=== PATIENT | male | born 1955 | race African-American/Black ===

== ENCOUNTER 2016-05-28 15:33 | Inpatient (IN) | payer OTHER ==
[2016-05-28] VITALS (14 sets, daily range): BP systolic 117–163; BP diastolic 55–81; PULSE 8–106; RESP 17–20; TEMP 98–98.8; O2SAT 95–100
[~2016-05-28] VITALS: Ht 160 cm; Wt 62.0 kg
[~2016-05-28 15:33] MED LIST: ASPI81TA82 PO; ATROPINE SULFATE 1 MG/10 ML SYRINGE IV ONE; CALC667T PO; CLON.1 PO; DOCU100T9 PO; EPINEPHrine HCL (1:10,000) 1 MG/10 ML SYRINGE IV ONE; HYDR25TA35 PO; METO50TA PO; NEPRLIQ PO; NRSS SQ; SODIUM BICARBONATE 8.4% INJ 50 MEQ/50 ML SYR IV ONE
[2016-05-28] MEDS ORDERED: SODIUM CHLORIDE 0.9% FLUSH 5 ML FLUSH IVF PRN ×2 (15:45→21:00)
--- NOTE | 2016-05-28 15:51 | PD ---
HPI Chief Complaint: SOB Time Seen by Provider: 15:46 Travel History International Travel<30 days: No Contact w/Intl Traveler<30days: No History of Present Illness HPI 60-year-old male with history of CHF, DM, HEP C, ESRD (on dialysis Monday followed by Dr. Peck) presents to the ED for evaluation of 2 day history of shortness of breath. Onset after last dialysis of 05/26. Patient endorses nonproductive cough and 1 episode of posttussive emesis. Denies fever, chills, cold or flu symptoms, chest pain, abdominal pain. AV graft in LEFT arm. PFSH Past Medical History Hx Anticoagulant Therapy: Yes (aspirin 81) Asthma: No Autoimmune Disease: No Blood Disorders: No Anxiety: Yes (PTSD) Depression: No Heart Rhythm Problems: No Cancer: No Cardiovascular Problems: Yes High Cholesterol: Yes Chemotherapy: No Chest Pain: Yes Congestive Heart Failure: Yes COPD: No Cerebrovascular Accident: Yes Coronary Artery Disease: Yes Diabetes: Yes Dialysis: Yes (//MON) Diminished Hearing: No Endocrine: Yes Gastrointestinal Disorders: No GERD: No Genitourinary: Yes (ESRD) Hepatitis: Yes (HEP C) Hiatal Hernia: No Hypertension: Yes Immune Disorder: No Implanted Vascular Access Dvce: Yes Musculoskeletal: No Neurologic: Yes (CVA) Psychiatric: No Reproductive: No Respiratory: Yes (SOB) Myocardial Infarction: Yes Radiation Therapy: No Renal Failure: Yes Sleep Apnea: No Thyroid Disease: No Ulcer: No Past Surgical History AICD: No Arteriovenous Shunt: Yes (LEFT FA) Body Medical Devices: FISTULA Endocrine Surgery: Yes (FISTULA LEFT ARM) Insulin Pump: No Joint Replacement: No Pacemaker: No Other Surgery: Yes (scrotal surgery, PIN PLACEMENT S/P FINGER FX, AV SHUNT L FA ) Social History Alcohol Use: No Tobacco Use: Yes Substance Use: Yes (Cocaine) Allergies-Medications (Allergen,Severity, Reaction): Coded Allergies: Ibuprofen (Verified Allergy, Severe, 09/22/15) Sulfa (Verified Allergy, Severe, Rash, 09/22/15) *MDRO Multi-Drug Resistant Organism (Verified Adverse Reaction, Unknown, ) 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 Hydralazine (Hydralazine HCl) 25 Mg Tab 25 Mg PO TID Take with a meal Catapres (Clonidine) 0.1 Mg Tab 0.1 Mg PO TID Phoslo (Calcium Acetate (Phosphate Binder)) 667 Mg Cap 2,001 Mg PO TID Aspirin Adult Low Strength (Aspirin) 81 Mg Tabdr 81 Mg PO DAILY Review of Systems Except as stated in HPI: all other systems reviewed are Neg Physical Exam Narrative GENERAL: Well-nourished, well-developed male in mild distress. SKIN: Warm and dry. AV graft with palpable thrill in the left arm. HEAD: Normocephalic. EYES: No scleral icterus. No injection or drainage. NECK: Supple, trachea midline. No JVD or lymphadenopathy. CARDIOVASCULAR: Regular rate and rhythm without murmurs, gallops, or rubs. 2+ DP and radial pulses bilaterally. RESPIRATORY: Breath sounds equal bilaterally. ++ accessory muscle use. Hyperventilating. GASTROINTESTINAL: Abdomen soft, non-tender, nondistended. Active bowel sounds. MUSCULOSKELETAL: No cyanosis, or edema. BACK: Nontender without obvious deformity. No CVA tenderness. Data Data Last Documented VS Vital Signs Date Time Temp Pulse Resp B/P Pulse Ox O2 Delivery O2 Flow Rate FiO2 05/28/16 17:59 97 50 05/28/16 17:54 106 20 140/81 Ventilator 05/28/16 16:02 2 05/28/16 16:00 98.2 Orders Complete Blood Count With Diff (05/28/16 15:45) Comprehensive Metabolic Panel (05/28/16 15:45) B-Type Natriuretic Peptide (05/28/16 15:45) Act Partial Throm Time (Ptt) (05/28/16 15:45) Prothrombin Time / Inr (Pt) (05/28/16 15:45) Ckmb (Isoenzyme) Profile (05/28/16 15:45) Troponin I (05/28/16 15:45) Urinalysis - C+S If Indicated (05/28/16 15:45) Iv Access Insert/Monitor (05/28/16 15:45) Electrocardiogram (05/28/16 15:45) Ecg Monitoring (05/28/16 15:45) Oximetry (05/28/16 15:45) Oxygen Administration (05/28/16 15:45) Chest, Single Ap (05/28/16 15:45) Sodium Chloride 0.9% Flush (Ns Flush) (05/28/16 15:45) Blood Glucose (05/28/16 15:51) Isolation 08,20 (05/28/16 16:11) Arterial Blood Gas (Abg) (05/28/16 ) Influenzae A/B Antigen (05/28/16 16:37) Blood Culture (05/28/16 16:37) Piperacil-Tazo 4.5 Gm Premix (Zosyn 4.5 (05/28/16 16:45) Azithromycin Inj (Zithromax Inj) (05/28/16 16:45) CKMB (05/28/16 16:04) CKMB% (05/28/16 16:04) Potassium, Serum (K) (05/28/16 20:06) Ecg Monitoring (05/28/16 17:06) Calcium Gluconate Inj (Calcium Gluconate (05/28/16 17:15) Insulin Human Regular Inj (Novolin R Inj (05/28/16 17:15) Dextrose 50% In Erich (Vial) Inj (D50w (Vi (05/28/16 17:15) Albuterol Concentrated Neb (Albuterol Co (05/28/16 17:15) Sodium Polysty Sulfate Liq (Kayexalate L (05/28/16 17:15) Consult Nephrology (05/28/16 ) Lorazepam Inj (Ativan Inj) (05/28/16 17:33) Etomidate Inj (Amidate Inj) (05/28/16 17:37) Succinylcholine Inj (Quelicin Inj) (05/28/16 17:37) (Hub Use Only)Inp Phy Cons/Ref (05/28/16 ) Chest, Single Ap (05/28/16 ) Admit Order (Ed Use Only) (05/28/16 18:03) Labs Laboratory Tests Test 05/28/16 05/28/16 16:04 16:55 White Blood Count 5.7 TH/MM3 Red Blood Count 4.53 MIL/MM3 Hemoglobin 14.1 GM/DL Hematocrit 43.8 % Mean Corpuscular Volume 96.6 FL Mean Corpuscular Hemoglobin 31.1 PG Mean Corpuscular Hemoglobin 32.2 % Concent Red Cell Distribution Width 15.6 % Platelet Count 139 TH/MM3 Mean Platelet Volume 12.6 FL Neutrophils (%) (Auto) 68.7 % Lymphocytes (%) (Auto) 16.0 % Monocytes (%) (Auto) 14.3 % Eosinophils (%) (Auto) 0.1 % Basophils (%) (Auto) 0.9 % Neutrophils # (Auto) 3.9 TH/MM3 Lymphocytes # (Auto) 0.9 TH/MM3 Monocytes # (Auto) 0.8 TH/MM3 Eosinophils # (Auto) 0.0 TH/MM3 Basophils # (Auto) 0.1 TH/MM3 CBC Comment DIFF FINAL Differential Comment Prothrombin Time 12.9 SEC Prothromb Time International 1.2 RATIO Ratio Activated Partial 28.8 SEC Thromboplast Time Sodium Level 135 MEQ/L Potassium Level 6.8 MEQ/L Chloride Level 100 MEQ/L Carbon Dioxide Level 18.2 MEQ/L Anion Gap 17 MEQ/L Blood Urea Nitrogen 66 MG/DL Creatinine 8.95 MG/DL Estimat Glomerular Filtration 7 ML/MIN Rate Random Glucose 75 MG/DL Calcium Level 9.0 MG/DL Total Bilirubin 1.2 MG/DL Aspartate Amino Transf 103 U/L (AST/SGOT) Alanine Aminotransferase 47 U/L (ALT/SGPT) Alkaline Phosphatase 95 U/L Total Creatine Kinase 157 U/L Creatine Kinase MB 4.3 NG/ML Troponin I 0.21 NG/ML B-Type Natriuretic Peptide GREATER THAN 5000 PG/ML Total Protein 8.0 GM/DL Albumin 2.9 GM/DL Blood Gas Puncture Site RT RADIAL Blood Gas Patient Temperature 98.6 Blood Gas HCO3 17 mmol/L Blood Gas Base Excess -6.7 mmol/L Blood Gas Oxygen Saturation 94 % Arterial Blood pH 7.42 Arterial Blood Partial 27 mmHg Pressure CO2 Arterial Blood Partial 133 mmHG Pressure O2 Arterial Blood Oxygen Content 18.7 Vol % Arterial Blood 2.1 % Carboxyhemoglobin Arterial Blood Methemoglobin 2.0 % Blood Gas Hemoglobin 14.0 G/DL Oxygen Delivery Device NASAL CANNULA Blood Gas Liter Flow 2.5 L/M MDM Medical Decision Making Medical Screen Exam Complete: Yes Emergency Medical Condition: Yes Interpretation(s) EKG rate 79, sinus rhythm. CO interval 166. QRS 104 ms. QTC 46. Normal axis. NO peaked T waves. LVH. No ischemic changes. Reviewed by Dr. Clancy. Differential Diagnosis electrolyte abnormality versus CHF versus DKA versus pneumonia versus anemia versus other Narrative Course 60-year-old male with history of CHF, DM, HEP C, ESRD (on dialysis Monday followed by Dr. Peck) presents to the ED for evaluation of 2 day history of shortness of breath. Onset after last dialysis of 05/26. Patient endorses nonproductive cough and 1 episode of posttussive emesis. Denies fever, chills, cold or flu symptoms, chest pain, abdominal pain. Vitals reviewed. Patient is tachypneic. O2 sats 97% on 2 L nasal cannula. Chest clear to auscultation bilaterally. AV graft in LEFT arm with palpable thrill. Abdomen soft nontender. No pretibial edema. [facility] IV was established. Patient was placed on continuous monitoring. Bedside blood glucose 85. CBC: WBC 5.7. Hemoglobin 14.1. CMP: Potassium 6.8. Sodium 135. BUN 66. Creatinine 8.95. CO2 18.2. Bilirubin 1.2. AST 103. ALT 47. INR: 1.2 ABG: PH 7.42. HCO3 17. PCO2 27. Acute respiratory alkalosis with secondary metabolic acidosis Chest x-ray: Right lower lung infiltrate, compensated cardiomegaly. BNP: > 5000 Cardiac enzymes: Troponin 0.21. CK-MB 4.3. EKG: Rate 79, sinus rhythm, normal intervals, normal axis, no ischemic changes. Flu swab negative. Influenza swab and blood cultures ordered. Patient was administered IV Zosyn and azithromycin. Patient was administered Kayexalate, calcium, albuterol, dextrose and insulin. Patient is due for dialysis today. Nephrology consult placed with Dr. Peck. Plan to admit to the ICU. While being evaluated in the ED the patient became unresponsive and coded. CPR was administered. Sinus rhythm was restored. The patient was intubated and placed on a respirator. Family member at bedside reports previous history of cardiac arrest. Dr. Clancy spoke with Dr. Francisco, inspector semiconductor wafer for Dr. Peck. He will arrange dialysis. Dr. Clancy spoke with Dr. Fonseca who agrees to accept the patient to the ICU, admit to Dr. Donaldson. Please see die keeper and nephrology notes for disposition. Diagnosis Primary Impression: HCAP (healthcare-associated pneumonia) Additional Impressions: Metabolic acidosis with respiratory alkalosis ESRD on dialysis Cardiac arrest Cardiac enzymes elevated Hyperkalemia, diminished renal excretion Yudy Becerril May 28, 2016 15:51
[2016-05-28] MEDS ORDERED: METO100T PO (15:52)
[2016-05-28] MEDS ORDERED: PHOS667C5 PO (15:52)
[2016-05-28] MEDS ORDERED: ASPI1TAB91 PO (15:52)
[2016-05-28] MEDS ORDERED: CLON.1 PO (15:52)
[2016-05-28] MEDS ORDERED: HYDR25TA35 PO (15:52)
[2016-05-28] MEDS ORDERED: NOVORP2 SQ (15:52)
[2016-05-28 16:23] LABS: AUTOMATED NEUTROPHIL # 3.9 TH/MM3 (1.8-7.7); BASOPHIL # 0.1 TH/MM3 (0-0.2); BASOPHIL % 0.9 % (0.0-2.0); EOSINOPHIL % 0.1 % (0.0-4.0); HEMATOCRIT 43.8 % (39.0-51.0); LYMPHOCYTE # 0.9 TH/MM3 (1.0-4.8); MEAN CELL VOLUME 96.6 FL (80.0-100.0); MEAN CORPUSCULAR HEMOGLOBIN 31.1 PG (27.0-34.0); MEAN CORPUSCULAR HGB CONC 32.2 % (32.0-36.0); MONO % 14.3 % (0.0-8.0); NEUT % 68.7 % (16.0-70.0); PLATELET COUNT 139 TH/MM3 (150-450); RED BLOOD COUNT 4.53 MIL/MM3 (4.50-5.90); RED CELL DISTRIBUTION WIDTH 15.6 % (11.6-17.2); WHITE BLOOD COUNT 5.7 TH/MM3 (4.0-11.0)
--- NOTE | 2016-05-28 16:23 | RADRPT ---
EXAM DATE/TIME: 05/28/2016 15:58 [facility] COMPARISON: CHEST SINGLE AP, September 22, 2015, 23:21. INDICATIONS : Shortness of breath for the past few days. MEDICAL HISTORY : Renal failure, chronic. Stroke. Myocardial infarction. Cardiomegaly SURGICAL HISTORY : Shunt, Left arm. ENCOUNTER: Initial ACUITY: 3 days PAIN SCORE: 0/10 LOCATION: Bilateral chest FINDINGS: Findings are similar to remote study with left ventricular cardiomegaly and mild elevation right ricky diaphragm with patchy airspace disease in the right base not silhouetting the heart border consistent with lower lobe process. CONCLUSION: Cardiomegaly which appears compensated. Persistent elevation right hemidiaphragm. Opacity in the righ t lung base consistent with lower lobe infiltrate Darin Ye MD on May 28, 2016 at 16:21 Board Certified Radiologist. This report was verified electronically.
[2016-05-28 16:24] LABS: HEMO FLAGS DIFF FINAL
[2016-05-28 16:36] LABS: APTT (PATIENT) 28.8 SEC (24.3-30.1); INTERNATIONAL NORMALIZED RATIO 1.2 RATIO; PROTHROMBIN TIME - PATIENT 12.9 SEC (9.8-11.6)
[2016-05-28] MEDS ORDERED: PIPERACIL-TAZO 4.5 GM PREMIX 100 ML IV ONE (16:45)
[2016-05-28] MEDS ORDERED: AZITHROMYCIN INJ 500 MG in SODIUM CHLOR 0.9% 250 ML INJ 250 ML IV ONE (16:45)
[2016-05-28 17:00] LABS: BLOOD GAS BASE EXCESS -6.7 mmol/L (-2-2); BLOOD GAS CARBOXYHEMOGLOBIN 2.1 % (0-4); BLOOD GAS HCO3 17 mmol/L (22-26); BLOOD GAS O2 HGB SATURATION 94 % (90-100); BLOOD GAS OXYGEN CONTENT 18.7 Vol % (12.0-20.0); BLOOD GAS PCO2 27 mmHg (38-42); BLOOD GAS PO2 133 mmHG (61-120); TEMP CORR TO 98.6
[2016-05-28 17:01] LABS: CRITICAL VALUE NO; DRAW SITE RT RADIAL; LITER FLOW 2.5 L/M; NUMBER OF ARTERIAL PUNCTURES 2; OXYGEN DEVICE NASAL CANNULA; STAT YES; ULNAR PULSE PRESENT
[2016-05-28 17:05] LABS: ALKALINE PHOSPHATASE 95 U/L (45-117); ALT (GPT) 47 U/L (12-78); ANION GAP 17 MEQ/L (5-15); AST (GOT) 103 U/L (15-37); BICARBONATE 18.2 MEQ/L (21.0-32.0); BLOOD UREA NITROGEN 66 MG/DL (7-18); CHLORIDE 100 MEQ/L (98-107); CREATINE KINASE 157 U/L (39-308); GLOMERULAR FILTRATION RATE 7 ML/MIN (>89); SODIUM (NA) 135 MEQ/L (136-145); TOTAL BILIRUBIN ADULT 1.2 MG/DL (0.2-1.0)
[2016-05-28 17:06] LABS: POTASSIUM 6.8 MEQ/L (3.5-5.1)
--- NOTE | 2016-05-28 17:10 | PD ---
Physical Exam Narrative I, Dr. Clancy, have reviewed the advance practice practitioner's documentation and am in agreement, met with the patient face to face, made the diagnosis, and the medical decision making was done by me. *My assessment and Findings: SOB secondary to PNA vs. fluid overload 60yo M with ESRD on HD T//Sat here with worsening sob today. Pt last had HD on and is due for HD today. +Chest pain with cough. Denies any fever , n/v, abdominal pain, weakness or numbness. CXR showed cardiomegaly and right lower lobe infiltrate. Blood cultures drawn and pt given antibiotics. Labs reviewed, no leukocytosis. K: 6.8. Pt ordered albuterol neb, kayexulate, insulin, dextrose, calcium gluconate for hyperkalemia. At 15:35, pt started to have bradycardia down to the 50s then 30s and became unresponsive. PEA arrest likely secondary to hyperkalemia. CPR was started and I was informed by the nurse that the only medication he received prior for hyperkalemia was albuterol. Pt received the calcium gluconate, insulin, dextrose and epinephrine. Pt was emergently intubated without any medications and ROSC obtained after 8 minutes. Pt was also given the kayexylate via OG tube after. Pt given ativan 2mg IV since he was waking up and we were waiting for propofol drip. Pt then placed on mechanical ventilation and propofol drip, BP 122/57 and HR 94. I discussed with Dr. Flores, transportation consultant covering Dr. Peck and he states he will call hemodialysis center now and arranged for emergently HD in the ED or ICU if he gets a room there soon. Discussed with ICU attending Dr. Fonseca who states that Dr. Donaldson will see the patient. Discussed with pt's finance who was at bedside and said this happen once before a few years ago. Answered all her questions. Hemodialysis was started in the ED and pt was evaluated by Dr. Flores in the ED. Data Data Last Documented VS Vital Signs Date Time Temp Pulse Resp B/P Pulse Ox O2 Delivery O2 Flow Rate FiO2 05/28/16 17:59 97 50 05/28/16 17:54 106 20 140/81 Ventilator 05/28/16 16:02 2 05/28/16 16:00 98.2 Orders Complete Blood Count With Diff (05/28/16 15:45) Comprehensive Metabolic Panel (05/28/16 15:45) B-Type Natriuretic Peptide (05/28/16 15:45) Act Partial Throm Time (Ptt) (05/28/16 15:45) Prothrombin Time / Inr (Pt) (05/28/16 15:45) Ckmb (Isoenzyme) Profile (05/28/16 15:45) Troponin I (05/28/16 15:45) Urinalysis - C+S If Indicated (05/28/16 15:45) Iv Access Insert/Monitor (05/28/16 15:45) Electrocardiogram (05/28/16 15:45) Ecg Monitoring (05/28/16 15:45) Oximetry (05/28/16 15:45) Oxygen Administration (05/28/16 15:45) Chest, Single Ap (05/28/16 15:45) Sodium Chloride 0.9% Flush (Ns Flush) (05/28/16 15:45) Blood Glucose (05/28/16 15:51) Isolation 08,20 (05/28/16 16:11) Arterial Blood Gas (Abg) (05/28/16 ) Influenzae A/B Antigen (05/28/16 16:37) Blood Culture (05/28/16 16:37) Piperacil-Tazo 4.5 Gm Premix (Zosyn 4.5 (05/28/16 16:45) Azithromycin Inj (Zithromax Inj) (05/28/16 16:45) CKMB (05/28/16 16:04) CKMB% (05/28/16 16:04) Ecg Monitoring (05/28/16 17:06) Calcium Gluconate Inj (Calcium Gluconate (05/28/16 17:15) Insulin Human Regular Inj (Novolin R Inj (05/28/16 17:15) Dextrose 50% In Erich (Vial) Inj (D50w (Vi (05/28/16 17:15) Albuterol Concentrated Neb (Albuterol Co (05/28/16 17:15) Sodium Polysty Sulfate Liq (Kayexalate L (05/28/16 17:15) Consult Nephrology (05/28/16 ) Lorazepam Inj (Ativan Inj) (05/28/16 17:33) Etomidate Inj (Amidate Inj) (05/28/16 17:37) Succinylcholine Inj (Quelicin Inj) (05/28/16 17:37) (Hub Use Only)Inp Phy Cons/Ref (05/28/16 ) Chest, Single Ap (05/28/16 ) Admit Order (Ed Use Only) (05/28/16 18:03) Labs Laboratory Tests Test 05/28/16 05/28/16 16:04 16:55 White Blood Count 5.7 TH/MM3 Red Blood Count 4.53 MIL/MM3 Hemoglobin 14.1 GM/DL Hematocrit 43.8 % Mean Corpuscular Volume 96.6 FL Mean Corpuscular Hemoglobin 31.1 PG Mean Corpuscular Hemoglobin 32.2 % Concent Red Cell Distribution Width 15.6 % Platelet Count 139 TH/MM3 Mean Platelet Volume 12.6 FL Neutrophils (%) (Auto) 68.7 % Lymphocytes (%) (Auto) 16.0 % Monocytes (%) (Auto) 14.3 % Eosinophils (%) (Auto) 0.1 % Basophils (%) (Auto) 0.9 % Neutrophils # (Auto) 3.9 TH/MM3 Lymphocytes # (Auto) 0.9 TH/MM3 Monocytes # (Auto) 0.8 TH/MM3 Eosinophils # (Auto) 0.0 TH/MM3 Basophils # (Auto) 0.1 TH/MM3 CBC Comment DIFF FINAL Differential Comment Prothrombin Time 12.9 SEC Prothromb Time International 1.2 RATIO Ratio Activated Partial 28.8 SEC Thromboplast Time Sodium Level 135 MEQ/L Potassium Level 6.8 MEQ/L Chloride Level 100 MEQ/L Carbon Dioxide Level 18.2 MEQ/L Anion Gap 17 MEQ/L Blood Urea Nitrogen 66 MG/DL Creatinine 8.95 MG/DL Estimat Glomerular Filtration 7 ML/MIN Rate Random Glucose 75 MG/DL Calcium Level 9.0 MG/DL Total Bilirubin 1.2 MG/DL Aspartate Amino Transf 103 U/L (AST/SGOT) Alanine Aminotransferase 47 U/L (ALT/SGPT) Alkaline Phosphatase 95 U/L Total Creatine Kinase 157 U/L Creatine Kinase MB 4.3 NG/ML Troponin I 0.21 NG/ML B-Type Natriuretic Peptide GREATER THAN 5000 PG/ML Total Protein 8.0 GM/DL Albumin 2.9 GM/DL Blood Gas Puncture Site RT RADIAL Blood Gas Patient Temperature 98.6 Blood Gas HCO3 17 mmol/L Blood Gas Base Excess -6.7 mmol/L Blood Gas Oxygen Saturation 94 % Arterial Blood pH 7.42 Arterial Blood Partial 27 mmHg Pressure CO2 Arterial Blood Partial 133 mmHG Pressure O2 Arterial Blood Oxygen Content 18.7 Vol % Arterial Blood 2.1 % Carboxyhemoglobin Arterial Blood Methemoglobin 2.0 % Blood Gas Hemoglobin 14.0 G/DL Oxygen Delivery Device NASAL CANNULA Blood Gas Liter Flow 2.5 L/M MDM Supervised Visit with RAMBO: Yes Interpretation(s) EKG: NSR 79bpm. Normal axis. TWI I, II, III, V5, V6. LVH. Critical Care Narrative Aggregate critical care time was 60 minutes. Time to perform other separately billable procedures was not included in the critical care time. My time did not include minutes spent treating any other patients simultaneously or on activities that did not directly contribute to the patient's treatment. The services I provided to this patient were to treat and/or prevent clinically significant deterioration that could result in: cardiovascular collapse or . I provided critical care services requiring my management, as noted below: Chart data review, documentation time, medication orders and management, vital sign assessments/reviewing monitor data, ordering and reviewing lab tests, ordering and interpreting/reviewing x-rays and diagnostic studies, care of the patient and discussion of the patient with the admitting physicians. Procedures Procedure Narrative The patient was put in optimal position for the procedure. The patient was intubated with a 8.0 cuffed endotracheal tube. No medication was used since pt was in arrest. Tube placement was confirmed by visualization of the tube and balloon passing through the cords, capnometry and subsequent chest x-ray. Breath sounds were equal and well aerated bilaterally postintubation. No breath sounds over stomach. Patient tolerated procedure well. Diagnosis Primary Impression: ESRD (end stage renal disease) Additional Impression: Cardiac arrest Admitting Information Admitting Physician Requests: Admit Amanda Clancy DO May 28, 2016 17:10
[2016-05-28] MEDS ORDERED: RESP: ALBUTEROL CONC 2.5 MG/0.5 ML NEB INH ONE (17:15)
[2016-05-28] MEDS ORDERED: SODIUM POLYSTYRENE SULFONATE SUSP 15 GM/60 ML CUP PO ONE (17:15)
[2016-05-28] MEDS ORDERED: DEXTROSE 50% IN WATER 50 ML VIAL(D50) IV PUSH ONE (17:15)
[2016-05-28] MEDS ORDERED: CALCIUM GLUCONATE 10% 1 GM/10 ML VIAL SLOW IVP ONE (17:15)
[2016-05-28] MEDS ORDERED: INSULIN HUMAN REGULAR 1,000 UNITS/10 ML VIAL IV PUSH ONE (17:15)
[2016-05-28] MEDS ORDERED: LORazepam 2 MG/ML VIAL ONE (17:33)
[2016-05-28] MEDS: ETOMIDATE 20 MG/10 ML VIAL ONE (17:37)
[2016-05-28] MEDS: SUCCINYLCHOLINE CHLORIDE 200 MG/10 ML VIAL ONE (17:37)
[2016-05-28 17:45] LABS: CKMB 4.3 NG/ML (0.5-3.6)
--- NOTE | 2016-05-28 18:23 | RADRPT ---
EXAM DATE/TIME: 05/28/2016 18:00 [facility] COMPARISON: CHEST SINGLE AP, May 28, 2016, 15:58. INDICATIONS : Post Procedure Intubation. MEDICAL HISTORY : Renal failure, chronic. Stroke. Myocardial infarction. Cardiomegaly. SURGICAL HISTORY : Shunt, Left arm. ENCOUNTER: Subsequent ACUITY: 1 day PAIN SCORE: Non-responsive. LOCATION: Bilateral chest FINDINGS: There is an endotracheal tube to remote acquired and nasogastric tube passing through the midline ter minating in the stomach. Small catheter indeterminate overlies the right hemithorax. Left ventricular cardiomegaly again appreciated. Density in the right lung base represents at least in part effusion. CONCLUSION: ET tube placed terminating above the josiane a nasogastric tube into the stomach. Otherwise stable katherine st with opacity in the right lung base representing at least in part effusion Darin Ye MD on May 28, 2016 at 18:20 Board Certified Radiologist. This report was verified electronically.
[2016-05-28] MEDS ORDERED: LORazepam 2 MG/ML VIAL IV PUSH ONE (18:45)
[2016-05-28 19:19] LABS: BLOOD GAS BASE EXCESS -9.1 mmol/L (-2-2); BLOOD GAS CARBOXYHEMOGLOBIN 1.8 % (0-4); BLOOD GAS HCO3 16 mmol/L (22-26); BLOOD GAS METHEMOGLOBIN 1.9 % (0-2); BLOOD GAS O2 HGB SATURATION 95 % (90-100); BLOOD GAS OXYGEN CONTENT 17.6 Vol % (12.0-20.0); BLOOD GAS PCO2 31 mmHg (38-42); BLOOD GAS PO2 215 mmHG (61-120); BLOOD GAS TOTAL HGB 12.8 G/DL (12.0-16.0); TEMP CORR TO 98.6
[2016-05-28 19:20] LABS: CRITICAL VALUE YES; OXYGEN DEVICE VENTILATOR
[2016-05-28 19:21] LABS: DRAW SITE RT FEMORAL; FIO2 50 %; NUMBER OF ARTERIAL PUNCTURES 2; STAT YES; VENT SETTINGS AC/14/550/PEEP5
[2016-05-28] MEDS: PROPOFOL 1000 MG/100 ML INJ 100 ML IV SCH (19:50)
--- NOTE | 2016-05-28 20:15 | HHI.HP ---
HPI Service Critical Care Medicine Primary Care Physician [facility] Admission Diagnosis hyperkalemia, cardiac arrest, ESRD, HCAP Diagnosis: Travel History International Travel<30 Days: No Contact w/Intl Traveler <30 Da: No Traveled to Known Affected Are: No History of Present Illness Unable to obtain from patient currently due to his clinical condition, intubation. 60 yo AAM with PMH of HTN, stroke without residual deficit, DM, nonischemic cardiomyopathy (EF 40% and stage I diastolic dysfunction) Cocaine abuse, Hepatitis C, ESRD on HD T/R/Sat who [place] [facility] [place] 2 day history of SOB. He reported symptoms started 1/ after he received hemodialysis. He reported a nonproductive cough without fevers, chills, or chest pain. His workup revealed a normal white count and CXR that demonstrated RLL consolidation. His potassium was 6.8. While preparations were being made to administer medications to address his hyperkalemia he developed bradycardia and PEA arrest. He underwent CPR and received epinephrine and 1 amp of bicarbonate. It was return of spontaneous circulation after 8 minutes. He was intubated by the emergency department physician Dr. Clancy. Dr. Francisco with nephrology was consulted and he made arrangements for urgent dialysis which is taking place currently. Target removal 3.8 L per HD RN. Postintubation CXR demonstrates R base infiltrate but also appears there is right pleural effusion. Influenza screen negative. Receive Zosyn and azithromycin in the emergency department. 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 Callejas) Cardiac cath 2012 - normal coronaries. Reported Medications Metoprolol 100 mg by mouth twice a day Clonidine 0.1 mill grams by mouth 3 times a day Hydralazine 25 g by mouth 3 times a day Novolin R Aspirin 81 mill grams by mouth daily PhosLo 2000 mill grams by mouth 3 times a day Family History Unable to obtain from patient currently due to clinical condition EMR indicates family history of diabetes mellitus Social History Unable to obtain from patient currently due to his clinical condition EMR indicates a history of smoking. No reported history of alcohol abuse in the EMR. Positive for history of cocaine abuse with multiple prior urine drug screen positive in 2013, 2015 Physical Exam Vital Signs Vital Signs Date Time Temp Pulse Resp B/P Pulse Ox O2 Delivery O2 Flow Rate FiO2 05/28/16 19:57 85 18 163/71 100 Ventilator 05/28/16 19:00 98.0 82 18 119/72 100 Ventilator 05/28/16 18:32 83 117/58 100 Ventilator 05/28/16 18:08 94 20 122/55 100 Ventilator 05/28/16 17:59 97 50 05/28/16 17:54 106 20 140/81 100 Ventilator 05/28/16 17:35 50 05/28/16 16:02 75 18 97 Nasal Cannula 2 05/28/16 16:00 98.2 75 18 125/65 95 05/28/16 15:59 97 Nasal Cannula 2 05/28/16 15:58 97 Nasal Cannula 2 Physical Exam Blood pressure 130/63 pulse 84 sinus sats 100% GENERAL: Well-nourished, well-developed male patient who is orotracheally intubated, currently getting emergent hemodialysis SKIN: Warm and dry, well perfused HEAD: Atraumatic. Normocephalic. EYES: Pupils equal and round, 2 mm and reactive to pinpoint bilaterally. Arcus senilis is present. No scleral icterus. No injection or drainage. ENT: No nasal bleeding or discharge. Mucous membranes pink and moist. NECK: Trachea midline. No JVD. CARDIOVASCULAR: Regular rate and rhythm, sinus rhythm on the monitor with rate in 80s. No murmurs rubs or gallops. RESPIRATORY: No accessory muscle use. Clear to auscultation. Breath sounds equal bilaterally. Synchronous with ventilator with tidal volume 550/rate 14/P5 /FiO2 35% GASTROINTESTINAL: Abdomen soft, non-tender, nondistended.. MUSCULOSKELETAL: Extremities without clubbing, cyanosis, or edema. No obvious deformities. NEUROLOGICAL: Localizes with bilateral upper extremity, withdraws bilateral lower extremity to noxious stimuli. No eye opening. No eye deviation. No evidence of seizure activity. No response to [facility] Laboratory Tests Test 1/7/17 1/7/17 1/7/17 16:04 16:55 18:36 White Blood Count 5.7 Red Blood Count 4.53 Hemoglobin 14.1 Hematocrit 43.8 Mean Corpuscular Volume 96.6 Mean Corpuscular Hemoglobin 31.1 Mean Corpuscular Hemoglobin 32.2 Concent Red Cell Distribution Width 15.6 Platelet Count 139 Mean Platelet Volume 12.6 Neutrophils (%) (Auto) 68.7 Lymphocytes (%) (Auto) 16.0 Monocytes (%) (Auto) 14.3 Eosinophils (%) (Auto) 0.1 Basophils (%) (Auto) 0.9 Neutrophils # (Auto) 3.9 Lymphocytes # (Auto) 0.9 Monocytes # (Auto) 0.8 Eosinophils # (Auto) 0.0 Basophils # (Auto) 0.1 CBC Comment DIFF FINAL Differential Comment Prothrombin Time 12.9 Prothromb Time International 1.2 Ratio Activated Partial 28.8 Thromboplast Time Sodium Level 135 Potassium Level 6.8 Chloride Level 100 Carbon Dioxide Level 18.2 Anion Gap 17 Blood Urea Nitrogen 66 Creatinine 8.95 Estimat Glomerular Filtration 7 Rate Random Glucose 75 Calcium Level 9.0 Total Bilirubin 1.2 Aspartate Amino Transf 103 (AST/SGOT) Alanine Aminotransferase 47 (ALT/SGPT) Alkaline Phosphatase 95 Total Creatine Kinase 157 Creatine Kinase MB 4.3 Troponin I 0.21 B-Type Natriuretic Peptide GREATER THAN 5000 Total Protein 8.0 Albumin 2.9 Blood Gas Puncture Site RT RADIAL RT FEMORAL Blood Gas Patient Temperature 98.6 98.6 Blood Gas HCO3 17 16 Blood Gas Base Excess -6.7 -9.1 Blood Gas Oxygen Saturation 94 95 Arterial Blood pH 7.42 7.33 Arterial Blood Partial 27 31 Pressure CO2 Arterial Blood Partial 133 215 Pressure O2 Arterial Blood Oxygen Content 18.7 17.6 Arterial Blood 2.1 1.8 Carboxyhemoglobin Arterial Blood Methemoglobin 2.0 1.9 Blood Gas Hemoglobin 14.0 12.8 Oxygen Delivery Device NASAL CANNULA VENTILATOR Blood Gas Liter Flow 2.5 Blood Gas Ventilator Setting AC/14/550/PEEP5 Blood Gas Inspired Oxygen 50 Date/Time Procedure Status Source Growth 05/28/16 16:51 Influenza Types A,B Antigen (FLORES) - Final Complete Nasal Washing NEGATIVE FOR FLU A AND B ANTIGEN.... 05/28/16 16:45 Aerobic Blood Culture Received Blood Line Pending 05/28/16 16:45 Anaerobic Blood Culture Received Blood Line Pending Result Diagram: 05/28/16 1604 05/28/16 1604 Assessment and Plan Assessment and Plan NEURO: Acute encephalopathy, post cardiac arrest. History of stroke without residual deficit (per friend's report) History of cocaine abuse Propofol for sedation. Fentanyl bolus prn pain. Received Ativan 6 mg IV in the ED for intubation 05/28 17:30 RASS -2. Daily sedation vacation. Tra PEA cardiac arrest due to severe hyperkalemia, re-evaluated post-HD in ICU and patient is purposeful, does not meet criteria for induced therapeutic hypothermia. RESP: Acute respiratory failure Healthcare associated pneumonia Intubated in ED 05/28/16 following cardiac arrest Duoneb q6 hours. Albuterol 2 prn. Ventilator Bundle. SBT in am. Abx as per below CV: Cardiac arrest, secondary to hyperkalemia Nonischemic cardiomyopathy secondary to HTN, cocaine abuse Chronic grade I diastolic dysfunction, systolic dysfunction with prior EF 40% Hypertension Etiology of cardiac arrest appears to be symptomatic hyperkalemia. PE seems less likely as patient not in shock and hypoxia is not out of proportion to CXR finding of RLL infiltrate and effusion. BLE u/s obtained and is negative for DVT. Hold metoprolol for now but likely can resume in am as bradycardia likely secondary to hyperkalemia Continue home meds: Hydralazine 25 tid. Clonidine 0.1 tid. ASA 81 mg daily. Mild troponin elevation in setting of ESRD. Last 2 D Echo 01/14/15 +Moderate LVH, EF 50%, Grade I diastolic dysfunction Follow-up 2-D echo cardiac cath 12/09/2012 - EF 40%, normal coronaries. GI: Hepatitis C OG tube to low intermittent wall suction. Initiate enteral feeds in 24 hours if not extubating. FEN/RENAL: ESRD Acute severe hyperkalemia Intermittent hemodialysis per nephrology (Dr. Francisco) Emergent HD 05/28 due to potassium of 6.8 with bradycardia and cardiac arrest Also received albuterol, dextrose, Insulin 5 units IV, Calcium gluconate 1 gram , kayexalate 15 gram in the ED. BMP, mag, phos in am. ID: Acute healthcare associated pneumonia Dialysis patient with right lower lobe consolidation and presenting symptom of shortness of breath. Received Zosyn and azithromycin in the emergency department 05/28. Will continue Zosyn 2.25 g IV every 8 hours dosed for pneumonia /ESRD. Azithromycin 500 mg IV daily. Send sputum culture. Microbiology: 05/28influenza A and B antigen negative blood culture 2 setspending HEME: Monitor CBC Follow bilateral lower extremity ultrasound ENDO: Diabetes mellitus Medium dose Insulin sliding scale with bedside glucose every 6 hours PROPH: Heparin subcutaneous for DVT prophylaxis. Protonix 40 mg IV daily for stress ulcer prophylaxis. ACCESS: Peripheral IV providing adequate access at this time. Left AV fistula accessed for hemodialysis Full code Discussed with Dr. Clancy. Discussed with ED RN. Discussed with HD healthcare technician time 60 minutes exclusive of separately billable procedures. Marianne Donaldson MD May 28, 2016 20:15
[2016-05-28] MEDS ORDERED: CHLORHEXIDINE GLUCONATE 2 % 1 PACK (2 CLOTHS) TOP PRN (20:45)
[2016-05-28] MEDS ORDERED: DEXTROSE 50% IN WATER 50 ML VIAL(D50) IV PUSH PRN (20:45)
[2016-05-28] MEDS ORDERED: GLUCAGON 1 MG/ML VIAL OTHER PRN (20:45)
[2016-05-28] MEDS ORDERED: ONDANSETRON HCL 4 MG/2 ML VIAL IV PRN ×2 (20:45→21:00)
[2016-05-28] MEDS ORDERED: SODIUM CHLORIDE 0.9% FLUSH 5 ML FLUSH IV FLUSH PRN (20:45)
[2016-05-28] MEDS ORDERED: RESP: IPRATROPIUM 0.5 MG/2.5 ML NEB INH PRN (20:45)
[2016-05-28] MEDS ORDERED: MISCELLANEOUS NURSING INFORMATION XX SCH (20:45)
[2016-05-28] MEDS: SODIUM CHLORIDE 0.9% FLUSH 5 ML FLUSH IV FLUSH SCH (20:52)
[2016-05-28] MEDS: DOCUSATE SODIUM 100 MG CAP PO SCH (20:52)
[2016-05-28] MEDS ORDERED: HEPARIN SODIUM - IV 10,000 UNITS/10 ML VIAL PRN (21:00)
[2016-05-28] MEDS ORDERED: ACETAMINOPHEN 325 MG TAB PO PRN (21:00)
[2016-05-28] MEDS ORDERED: diphenhydrAMINE HCL 25 MG CAP PO PRN (21:00)
[2016-05-28] MEDS ORDERED: HEPARIN SODIUM - IV 10,000 UNITS/10 ML VIAL IVF PRN (21:00)
[2016-05-28] MEDS ORDERED: GENTAMICIN SULFATE (DIALYSIS USE ONLY) 20 MG/2 ML VIAL IV PRN (21:00)
[2016-05-28] MEDS ORDERED: MANNITOL 12.5 GM/50 ML VIAL IV PRN (21:00)
[2016-05-28] MEDS ORDERED: NITROGLYCERIN 0.4 MG SL 25 TABS/BTL SL PRN (21:00)
--- NOTE | 2016-05-28 21:01 | PD.CONS ---
HPI Service nephrology Consult Requested By Reason for Consult ESRD, hyperkalemia Primary Care Physician [facility] History of Present Illness Mr. Bloom is a 60 year old who came to the ER with shortness of breath. He developed unresponsiveness and bradycardia. He was emergently intubated. He received CPR, insulin with dextrose, sodium bicarbonate, and epinephrine. Also received Kayexalate. His serum potassium was 6.8. Emergent dialysis was arranged , and I saw him in the ER during dialysis. He is on 1K, 2.5 Ca, UF 3 liters. AVF in the left arm was cannulated. Currently he is unresponsive, on the ventilator. No history could be obtained from him. I have reviewed old records. 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 Reported Medications Metoprolol Tartrate 100 Mg Tab 100 Mg PO BID Novolin R Inj (Insulin Human Regular) 1,000 Unit/10 Ml Vial 0 SQ DIRECTED Sliding Scale As Directed. Hydralazine (Hydralazine HCl) 25 Mg Tab 25 Mg PO TID Take with a meal Catapres (Clonidine) 0.1 Mg Tab 0.1 Mg PO TID Phoslo (Calcium Acetate (Phosphate Binder)) 667 Mg Cap 2,001 Mg PO TID Aspirin Adult Low Strength (Aspirin) 81 Mg Tabdr 81 Mg PO DAILY Active Ordered Medications Current Medications Medications (Trade) Dose Ordered Sig/Crispin Route Start Time Stop Time Status Last Admin IV Flush 2 ml 2 ml UNSCH PRN IVF 05/28/16 15:45 (Diprivan 1000 Mg/100ml Inj) 100 ml @ 0 mls/hr TITRATE IV 05/28/16 18:45 05/28/16 19:50 (Peridex 0.12% Liq) 15 ml BID@08,20 MT 05/29/16 08:00 (NS Flush) 2 ml UNSCH PRN IV FLUSH 05/28/16 20:45 (NS Flush) 2 ml BID IV FLUSH 05/28/16 21:00 (fentaNYL INJ) 50 mcg Q1H PRN IV PUSH 05/28/16 20:45 (Protonix Inj) 40 mg DAILY IV 05/29/16 09:00 (Zofran Inj) 4 mg Q6H PRN IV 05/28/16 20:45 (Colace) 100 mg BID PO 05/28/16 21:00 (Heparin Inj) 5,000 units Q8H SQ 05/28/16 22:00 Miscellaneous Information 1 Q361D XX 05/28/16 20:45 (Chlorhexidine 2% Cloth) 3 pack Taper DAILY@04 TOP 05/29/16 04:00 05/25/17 03:59 Chlorhexidine Gluconate 3 pack 3 pack UNSCH PRN TOP 05/28/16 20:45 (Diprivan 1000 Mg/100ml Inj) 100 ml @ 0 mls/hr TITRATE IV 05/28/16 20:45 (D50w (Vial) Inj) 25 ml UNSCH PRN IV PUSH 05/28/16 20:45 (Glucagon Inj) 1 mg UNSCH PRN OTHER 05/28/16 20:45 (NovoLOG SUPPLEMENTAL SCALE) 1 Q6HR SQ 05/29/16 00:00 Family History not available. Social History According to records, he has history of cocaine abuse and tobacco abuse. Physical Exam Vital Signs Vital Signs Date Time Temp Pulse Resp B/P Pulse Ox O2 Delivery O2 Flow Rate FiO2 05/28/16 19:57 85 18 163/71 100 Ventilator 05/28/16 19:00 98.0 82 18 119/72 100 Ventilator 05/28/16 18:32 83 117/58 100 Ventilator 05/28/16 18:08 94 20 122/55 100 Ventilator 05/28/16 17:59 97 50 05/28/16 17:54 106 20 140/81 100 Ventilator 05/28/16 17:35 50 05/28/16 16:02 75 18 97 Nasal Cannula 2 05/28/16 16:00 98.2 75 18 125/65 95 05/28/16 15:59 97 Nasal Cannula 2 05/28/16 15:58 97 Nasal Cannula 2 Physical Exam GENERAL: intubated, unresponsive. Seen during dialysis. Left arm AVF is currently cannulated. SKIN: Warm and dry. HEAD: Normocephalic. EYES: No scleral icterus. No injection or drainage. NECK: Supple, trachea midline. No JVD or lymphadenopathy. CARDIOVASCULAR: Regular rate and rhythm without murmurs, gallops, or rubs. RESPIRATORY: Breath sounds equal bilaterally. No accessory muscle use. GASTROINTESTINAL: Abdomen soft, non-tender, nondistended. MUSCULOSKELETAL: No cyanosis, or edema. BACK: Nontender without obvious deformity. No CVA tenderness. Laboratory Laboratory Tests Test 05/28/16 05/28/16 05/28/16 16:04 16:55 18:36 White Blood Count 5.7 Red Blood Count 4.53 Hemoglobin 14.1 Hematocrit 43.8 Mean Corpuscular Volume 96.6 Mean Corpuscular Hemoglobin 31.1 Mean Corpuscular Hemoglobin 32.2 Concent Red Cell Distribution Width 15.6 Platelet Count 139 Mean Platelet Volume 12.6 Neutrophils (%) (Auto) 68.7 Lymphocytes (%) (Auto) 16.0 Monocytes (%) (Auto) 14.3 Eosinophils (%) (Auto) 0.1 Basophils (%) (Auto) 0.9 Neutrophils # (Auto) 3.9 Lymphocytes # (Auto) 0.9 Monocytes # (Auto) 0.8 Eosinophils # (Auto) 0.0 Basophils # (Auto) 0.1 CBC Comment DIFF FINAL Differential Comment Prothrombin Time 12.9 Prothromb Time International 1.2 Ratio Activated Partial 28.8 Thromboplast Time Sodium Level 135 Potassium Level 6.8 Chloride Level 100 Carbon Dioxide Level 18.2 Anion Gap 17 Blood Urea Nitrogen 66 Creatinine 8.95 Estimat Glomerular Filtration 7 Rate Random Glucose 75 Calcium Level 9.0 Total Bilirubin 1.2 Aspartate Amino Transf 103 (AST/SGOT) Alanine Aminotransferase 47 (ALT/SGPT) Alkaline Phosphatase 95 Total Creatine Kinase 157 Creatine Kinase MB 4.3 Troponin I 0.21 B-Type Natriuretic Peptide GREATER THAN 5000 Total Protein 8.0 Albumin 2.9 Blood Gas Puncture Site RT RADIAL RT FEMORAL Blood Gas Patient Temperature 98.6 98.6 Blood Gas HCO3 17 16 Blood Gas Base Excess -6.7 -9.1 Blood Gas Oxygen Saturation 94 95 Arterial Blood pH 7.42 7.33 Arterial Blood Partial 27 31 Pressure CO2 Arterial Blood Partial 133 215 Pressure O2 Arterial Blood Oxygen Content 18.7 17.6 Arterial Blood 2.1 1.8 Carboxyhemoglobin Arterial Blood Methemoglobin 2.0 1.9 Blood Gas Hemoglobin 14.0 12.8 Oxygen Delivery Device NASAL CANNULA VENTILATOR Blood Gas Liter Flow 2.5 Blood Gas Ventilator Setting AC/14/550/PEEP5 Blood Gas Inspired Oxygen 50 Date/Time Procedure Status Source Growth 05/28/16 16:51 Influenza Types A,B Antigen (FLORES) - Final Complete Nasal Washing NEGATIVE FOR FLU A AND B ANTIGEN.... 05/28/16 16:45 Aerobic Blood Culture Received Blood Line Pending 05/28/16 16:45 Anaerobic Blood Culture Received Blood Line Pending Result Diagram: 05/28/16 1604 05/28/16 1604 Assessment and Plan Problem List: (1) ESRD on dialysis Plan: Emergent dialysis was arranged because of hyperkalemia and cardiac arrest. He was seen during dialysis. Dialysis on 1K. UF goal is 3 liters. Monitor. Repeat his labs tomorrow. Monitor his electrolytes and fluid volume status. (2) Hypertension Plan: He has history of cocaine abuse. Consider toxicology screen. Avoid beta blockers. Consider clonidine patch if necessary. Monitor BP after dialysis and fluid removal. (3) Cocaine abuse (4) DM (diabetes mellitus) Plan: insulin coverage to maintain blood glucose between 140 and 180 (5) Hyperkalemia Plan: Should improve with dialysis. Repeat labs tomorrow. Assessment and Plan Thanks for the consult. We will follow. Chetan Francisco MD May 28, 2016 21:01
[2016-05-28] MEDS: RESP: ALBUTEROL 2.5 MG/IPRATROPIUM 0.5 MG NEB (SCH) INH (21:21)
--- NOTE | 2016-05-28 23:16 | RADRPT ---
EXAM DATE/TIME: 05/28/2016 22:27 [facility] COMPARISON: No previous studies available for comparison. INDICATIONS : Bilateral lower extremity swelling. MEDICAL HISTORY : Myocardial infarction. Congestive heart failure. Hypercholesterolemia. CVA. CAD. HTN. Dyspnea. ESRD. Hep C. Diabetes. Anticoagulant therapy, Aspirin 81mg. Substance use. PTSD. Anxiety. MRSA. Carbapenem resistant acinetobacter baumannii. SURGICAL HISTORY : AV shunt. Dialysis. Scrotal surgery. Pin placement s/p finger fracture. ENCOUNTER: Initial ACUITY: 1 day PAIN SCORE: Non-responsive LOCATION: Bilateral legs. TECHNIQUE: Venous ultrasound of the left and right leg was performed from the inguinal ligament to the proximal calf. Real-time, color Doppler and spectral tracing, compression and augmentation techniques were us ed. FINDINGS: RIGHT LEG: There is normal compressibility of the deep venous system from the inguinal region to the proximal ca lf. No echogenic clot is seen in the lumen of the common femoral, femoral, popliteal, and posterior tibial veins. There is a normal response of the venous system to proximal and distal augmentation an d respiration. LEFT LEG: There is normal compressibility of the deep venous system from the inguinal region to the proximal ca lf. No echogenic clot is seen in the lumen of the common femoral, femoral, popliteal, and posterior tibial veins. There is a normal response of the venous system to proximal and distal augmentation an d respiration. CONCLUSION: Negative for deep venous thrombosis bilateral lower extremity. Earnest Torre MD on May 28, 2016 at 23:13 Board Certified Radiologist. This report was verified electronically.
[2016-05-28 23:54] LABS: CREATINE KINASE 215 U/L (39-308)
[2016-05-28 23:56] LABS: POTASSIUM 5.5 MEQ/L (3.5-5.1)
[2016-05-29] VITALS (21 sets, daily range): BP systolic 76–121; BP diastolic 45–60; PULSE 76–89; RESP 13–20; TEMP 97.4–98.2; O2SAT 96–100
[2016-05-29 00:17] LABS: CKMB 5.4 NG/ML (0.5-3.6)
[2016-05-29] MEDS: HEPARIN SODIUM - SQ 10,000 UNITS/ML VIAL SQ SCH ×4 (00:22→21:35)
[2016-05-29] MEDS: RESP: ALBUTEROL 2.5 MG/IPRATROPIUM 0.5 MG NEB (SCH) INH ×4 (03:25→21:19)
[2016-05-29 03:59] LABS: AUTOMATED NEUTROPHIL # 7.9 TH/MM3 (1.8-7.7); BASOPHIL # 0.1 TH/MM3 (0-0.2); BASOPHIL % 0.6 % (0.0-2.0); EOSINOPHIL # 0.1 TH/MM3 (0-0.4); EOSINOPHIL % 0.7 % (0.0-4.0); HEMATOCRIT 38.7 % (39.0-51.0); LYMPH % 5.4 % (9.0-44.0); LYMPHOCYTE # 0.5 TH/MM3 (1.0-4.8); MEAN CELL VOLUME 93.3 FL (80.0-100.0); MEAN CORPUSCULAR HEMOGLOBIN 30.6 PG (27.0-34.0); MEAN CORPUSCULAR HGB CONC 32.8 % (32.0-36.0); MONO % 12.4 % (0.0-8.0); NEUT % 80.9 % (16.0-70.0); PLATELET COUNT 94 TH/MM3 (150-450); RED BLOOD COUNT 4.15 MIL/MM3 (4.50-5.90); RED CELL DISTRIBUTION WIDTH 14.7 % (11.6-17.2); WHITE BLOOD COUNT 9.7 TH/MM3 (4.0-11.0)
[2016-05-29] MEDS: CHLORHEXIDINE GLUCONATE 2 % 1 PACK (2 CLOTHS) TOP SCH (04:00)
[2016-05-29] MEDS: PROPOFOL 1000 MG/100 ML INJ 100 ML IV SCH ×3 (04:05→14:31)
[2016-05-29] MEDS: PIPERACIL-TAZO 2.25 GM PREMIX 50 ML IV SCH ×3 (04:06→17:17)
[2016-05-29 04:21] LABS: HEMO FLAGS AUTO DIFF
[2016-05-29 04:22] LABS: ANION GAP 14 MEQ/L (5-15); BICARBONATE 28.2 MEQ/L (21.0-32.0); BLOOD UREA NITROGEN 50 MG/DL (7-18); CHLORIDE 100 MEQ/L (98-107); CREATINE KINASE 172 U/L (39-308); GLOMERULAR FILTRATION RATE 9 ML/MIN (>89); KERATOCYTES OCC (NORMAL); MAGNESIUM 2.1 MG/DL (1.5-2.5); PLATELET ESTIMATE SMEAR LOW (NORMAL); PLATELET MORPHOLOGY ENLARGED (NORMAL); POTASSIUM 4.4 MEQ/L (3.5-5.1); SCAN/DIFF AUTO DIFF CONFIRMED; SODIUM (NA) 142 MEQ/L (136-145); SPHEROCYTES OCC (NORMAL)
[2016-05-29 04:43] LABS: CKMB 5.3 NG/ML (0.5-3.6)
[2016-05-29 04:43] LABS: BLOOD GAS HCO3 28 mmol/L (22-26); BLOOD GAS O2 HGB SATURATION 96 % (90-100); BLOOD GAS PCO2 36 mmHg (38-42); BLOOD GAS PO2 104 mmHg (61-120); CRITICAL VALUE NO; OXYGEN DEVICE VENTILATOR
[2016-05-29 04:44] LABS: BLOOD GAS BASE EXCESS 4.5 mmol/L (-2-2); BLOOD GAS CARBOXYHEMOGLOBIN 1.5 % (0-4); BLOOD GAS METHEMOGLOBIN 1.2 % (0-2); BLOOD GAS OXYGEN CONTENT 16.3 Vol % (12.0-20.0); BLOOD GAS TOTAL HGB 12.1 G/DL (12.0-16.0); DRAW SITE RT RADIAL; FIO2 35 %; NUMBER OF ARTERIAL PUNCTURES 1; STAT YES; ULNAR PULSE PRESENT; VENT SETTINGS AC 12/550/5PEEP
[2016-05-29] MEDS: INSULIN ASPART SUPPLEMENTAL SCALE SQ SCH ×4 (05:55→17:18)
[2016-05-29] MEDS: PANTOPRAZOLE SODIUM 40 MG VIAL IV SCH (08:45)
[2016-05-29] MEDS: cloNIDine HCL 0.1 MG TAB PO SCH ×3 (08:45→17:18)
[2016-05-29] MEDS: hydrALAZINE HCL 25 MG TAB PO SCH ×3 (08:45→17:17)
[2016-05-29] MEDS: CHLORHEXIDINE 0.12% (ORAL KIT) 15 ML CUP MT SCH ×2 (08:45→20:13)
[2016-05-29] MEDS: SODIUM CHLORIDE 0.9% FLUSH 5 ML FLUSH IV FLUSH SCH ×2 (08:46→20:13)
[2016-05-29] MEDS: ASPIRIN EC 81 MG TABEC PO SCH (08:46)
[2016-05-29] MEDS: DOCUSATE SODIUM 100 MG CAP PO SCH ×2 (08:46→20:13)
--- NOTE | 2016-05-29 09:20 | RADRPT ---
EXAM DATE/TIME: 05/29/2016 03:03 [facility] COMPARISON: CT BRAIN W/O CONTRAST, September 22, 2015, 22:12. INDICATIONS : Post code. RADIATION DOSE: 56.35 CTDIvol (mGy) MEDICAL HISTORY : Non-responsive. SURGICAL HISTORY : Non-responsive. ENCOUNTER: Initial ACUITY: 1 day PAIN SCALE: Non-responsive LOCATION: cranial TECHNIQUE: Multiple contiguous axial images were obtained of the head. Using automated exposure control and adj ustment of the mA and/or kV according to patient size, radiation dose was kept as low as reasonably a chievable to obtain optimal diagnostic quality images. FINDINGS: CEREBRUM: The ventricles are normal for age. No evidence of midline shift, mass lesion, hemorrhage or acute in farction. No extra-axial fluid collections are seen. POSTERIOR FOSSA: The cerebellum and brainstem are intact. The 4th ventricle is midline. The cerebellopontine angle i s unremarkable. EXTRACRANIAL: The visualized portion of the orbits is intact. SKULL: The calvaria is intact. No evidence of skull fracture. CONCLUSION: Age-appropriate atrophy, stable from prior in September 2015. No acute findings. Earnest Torre MD on May 29, 2016 at 3:23 Board Certified Radiologist. This report was verified electronically.
--- NOTE | 2016-05-29 10:40 | HHI.CCPN ---
Subjective Remarks/Hospital Course 05/28: 60 yo AAM with PMH of HTN, stroke without residual deficit, DM, nonischemic cardiomyopathy (EF 40% and stage I diastolic dysfunction) Cocaine abuse, Hepatitis C, ESRD on HD T/R/Sat who presents to [facility] ED for 2 day history of SOB. He reported symptoms started 1/5 after he received hemodialysis. He reported a nonproductive cough without fevers, chills, or chest pain. His workup revealed a normal white count and CXR that demonstrated RLL consolidation. His potassium was 6.8. While preparations were being made to administer medications to address his hyperkalemia he developed bradycardia and PEA arrest. He underwent CPR and received epinephrine and 1 amp of bicarbonate. It was return of spontaneous circulation after 8 minutes. He was intubated by the emergency department physician Dr. Clancy. Dr. Francisco with nephrology was consulted and he made arrangements for urgent dialysis which is taking place currently. Target removal 3.8 L per HD RN. Postintubation CXR demonstrates R base infiltrate but also appears there is right pleural effusion. Influenza screen negative. Receive Zosyn and azithromycin in the emergency department. 05/29: Sedated, arousable, not following commands, orally intubated on mechanical ventilation. Gets agitated on lightening sedation and has a strong gag reflex. Objective Vital Signs Date Time Temp Pulse Resp B/P Pulse Ox O2 Delivery O2 Flow Rate FiO2 05/29/16 10:00 82 05/29/16 08:00 97.8 18 104/57 100 05/29/16 08:00 35 05/28/16 21:00 Ventilator 05/28/16 16:02 2 Intake and Output 05/28/16 05/28/16 05/29/16 08:00 16:00 00:00 Intake Total 45 ml Output Total 3800 ml Balance -3755 ml Result Diagram: 05/29/16 0333 05/29/16 0333 Other Results Microbiology Date/Time Procedure Status Source Growth 05/28/16 16:51 Influenza Types A,B Antigen (FLORES) - Final Complete Nasal Washing NEGATIVE FOR FLU A AND B ANTIGEN.... Laboratory Tests Test 05/28/16 05/28/16 05/29/16 16:55 18:36 04:30 Blood Gas Puncture Site RT RADIAL RT FEMORAL RT RADIAL Blood Gas Patient Temperature 98.6 98.6 Blood Gas HCO3 17 mmol/L 16 mmol/L 28 mmol/L (22-26) (22-26) (22-26) Blood Gas Base Excess -6.7 mmol/L -9.1 mmol/L 4.5 mmol/L (-2-2) (-2-2) (-2-2) Blood Gas Oxygen Saturation 94 % (90-100) 95 % (90-100) 96 % (90-100) Arterial Blood pH 7.42 7.33 7.50 (7.380-7.420) (7.380-7.420) (7.380-7.420) Arterial Blood Partial 27 mmHg (38-42) 31 mmHg (38-42) 36 mmHg (38-42) Pressure CO2 Arterial Blood Partial 133 mmHG 215 mmHG 104 mmHg Pressure O2 (61-120) (61-120) (61-120) Arterial Blood Oxygen Content 18.7 Vol % 17.6 Vol % 16.3 Vol % (12.0-20.0) (12.0-20.0) (12.0-20.0) Arterial Blood 2.1 % (0-4) 1.8 % (0-4) 1.5 % (0-4) Carboxyhemoglobin Arterial Blood Methemoglobin 2.0 % (0-2) 1.9 % (0-2) 1.2 % (0-2) Blood Gas Hemoglobin 14.0 G/DL 12.8 G/DL 12.1 G/DL (12.0-16.0) (12.0-16.0) (12.0-16.0) Oxygen Delivery Device NASAL CANNULA VENTILATOR VENTILATOR Blood Gas Liter Flow 2.5 L/M Blood Gas Ventilator Setting AC/14/550/PEEP5 AC 12/550/5PEEP Blood Gas Inspired Oxygen 50 % 35 % Imaging Last Impressions Head CT 05/29/16 0000 Signed Impressions: Service Date/Time: Sunday, May 29, 2016 03:03 - CONCLUSION: Age- appropriate atrophy, stable from prior in September 2015. No acute findings. Earnest Torre MD Chest X-Ray 05/28/16 1545 Signed Impressions: Service Date/Time: Saturday, May 28, 2016 15:58 - CONCLUSION: Cardiomegaly which appears compensated. Persistent elevation right hemidiaphragm. Opacity in the right lung base consistent with lower lobe infiltrate Darin Ye MD Lower Extremity Ultrasound 05/28/16 0000 Signed Impressions: Service Date/Time: Saturday, May 28, 2016 22:27 - CONCLUSION: Negative for deep venous thrombosis bilateral lower extremity. Earnest Torre MD Objective Remarks Blood pressure 130/63 pulse 84 sinus sats 100% GENERAL: Well-nourished, well-developed male patient who is orotracheally intubated, currently getting emergent hemodialysis SKIN: Warm and dry, well perfused HEAD: Atraumatic. Normocephalic. EYES: Pupils equal and round, 2 mm and reactive to pinpoint bilaterally. Arcus senilis is present. No scleral icterus. No injection or drainage. ENT: No nasal bleeding or discharge. Mucous membranes pink and moist. NECK: Trachea midline. No JVD. CARDIOVASCULAR: Regular rate and rhythm, sinus rhythm on the monitor with rate in 80s. No murmurs rubs or gallops. RESPIRATORY: No accessory muscle use. Clear to auscultation. Breath sounds equal bilaterally. Synchronous with ventilator with tidal volume 550/rate 14/P5 /FiO2 35% GASTROINTESTINAL: Abdomen soft, non-tender, nondistended.. MUSCULOSKELETAL: Extremities without clubbing, cyanosis, or edema. No obvious deformities. NEUROLOGICAL: Localizes with bilateral upper extremity, withdraws bilateral lower extremity to noxious stimuli. No eye opening. No eye deviation. No evidence of seizure activity. No response to Babinski A/P Assessment and Plan NEURO: Acute encephalopathy, post cardiac arrest. History of stroke without residual deficit (per friend's report) History of cocaine abuse Propofol for sedation. Fentanyl bolus prn pain. Received Ativan 6 mg IV in the ED for intubation 05/28 17:30 RASS -2. Daily sedation vacation. Tra PEA cardiac arrest due to severe hyperkalemia, re-evaluated post-HD in ICU and patient is purposeful, did not meet criteria for induced therapeutic hypothermia. RESP: Acute respiratory failure Healthcare associated pneumonia Intubated in ED 05/28/16 following cardiac arrest Duoneb q6 hours. Albuterol 2 prn. Ventilator Bundle. Daily SBT to decide extubation. Abx as per below CV: Cardiac arrest, secondary to hyperkalemia Nonischemic cardiomyopathy secondary to HTN, cocaine abuse Chronic grade I diastolic dysfunction, systolic dysfunction with prior EF 40% Hypertension Etiology of cardiac arrest appears to be symptomatic hyperkalemia. PE seems less likely as patient not in shock and hypoxia is not out of proportion to CXR finding of RLL infiltrate and effusion. BLE u/s obtained and is negative for DVT. Hold metoprolol for now but likely can resume in am as bradycardia likely secondary to hyperkalemia Continue home meds: Hydralazine 25 tid. Clonidine 0.1 tid. Continue ASA 81 mg daily. Mild troponin elevation in setting of ESRD. Last 2 D Echo 01/14/15 +Moderate LVH, EF 50%, Grade I diastolic dysfunction Follow-up 2-D echo cardiac cath 12/09/2012 - EF 40%, normal coronaries. Elevated troponin, cardiac arrest - consulted cardiology. Will add betablocker if BP permits. GI: Hepatitis C OG tube to low intermittent wall suction. Initiate enteral feeds in 24 hours if not extubating. FEN/RENAL: ESRD Acute severe hyperkalemia Intermittent hemodialysis per nephrology (Dr. Francisco) Emergent HD 05/28 due to potassium of 6.8 with bradycardia and cardiac arrest Also received albuterol, dextrose, Insulin 5 units IV, Calcium gluconate 1 gram , kayexalate 15 gram in the ED. BMP, mag, phos in am. ID: Acute healthcare associated pneumonia Dialysis patient with right lower lobe consolidation and presenting symptom of shortness of breath. Received Zosyn and azithromycin in the emergency department 05/28. continue Zosyn 2.25 g IV every 8 hours dosed for pneumonia/ ESRD. Azithromycin 500 mg IV daily. F/u sputum culture. Microbiology: 05/28influenza A and B antigen negative blood culture 2 setspending HEME: Monitor CBC Follow bilateral lower extremity ultrasound ENDO: Diabetes mellitus Medium dose Insulin sliding scale with bedside glucose every 6 hours PROPH: Heparin subcutaneous for DVT prophylaxis. Protonix 40 mg IV daily for stress ulcer prophylaxis. ACCESS: Peripheral IV providing adequate access at this time. Left AV fistula accessed for hemodialysis Full code Discussed with Dr. Francisco. Discussed with DIPLOMATIC OFFICER. Critical care time 60 minutes exclusive of separately billable procedures. Rojas Fonseca MD May 29, 2016 10:40
--- NOTE | 2016-05-29 11:00 | HHI.NPPN ---
Subjective Interval History patient remains intubated. Unresponsive. Discussed with Dr. Fonseca, also discussed with patient's fiance. Apparently had not used cocaine recently. Objective Data Data 05/28/16 05/29/16 19:00 07:00 Intake Total 227 ml Output Total 4050 ml Balance -3823 ml Intake IV Total 197 ml Other 30 ml Output Urine Total 0 ml Gastric Drainage Total 250 ml Hemodialysis 3800 ml # Voids 0 # Bowel Movements 4 Vital Signs Date Time Temp Pulse Resp B/P Pulse Ox O2 Delivery O2 Flow Rate FiO2 05/29/16 10:00 82 05/29/16 08:00 97.8 83 18 104/57 100 05/29/16 08:00 83 05/29/16 08:00 35 05/29/16 07:55 100 35 05/29/16 06:00 82 05/29/16 04:52 96 35 05/29/16 04:25 96 35 05/29/16 04:00 97.6 82 13 103/55 100 05/29/16 04:00 100 05/29/16 04:00 82 05/29/16 03:00 99 05/29/16 02:00 89 05/29/16 00:55 99 35 05/29/16 00:00 88 05/29/16 00:00 100 05/29/16 00:00 98.1 88 15 121/59 100 05/28/16 22:12 98.8 92 17 133/63 100 05/28/16 22:10 100 35 05/28/16 22:05 100 05/28/16 22:05 92 05/28/16 22:00 100 100 05/28/16 21:00 88 18 139/65 100 Ventilator 05/28/16 20:00 98 35 05/28/16 19:57 85 18 163/71 100 Ventilator 05/28/16 19:00 98.0 82 18 119/72 100 Ventilator 05/28/16 18:32 83 117/58 100 Ventilator 05/28/16 18:08 94 20 122/55 100 Ventilator 05/28/16 17:59 97 50 05/28/16 17:54 106 20 140/81 100 Ventilator 05/28/16 17:35 50 05/28/16 16:02 75 18 97 Nasal Cannula 2 05/28/16 16:00 98.2 75 18 125/65 95 05/28/16 15:59 97 Nasal Cannula 2 05/28/16 15:58 97 Nasal Cannula 2 -: 05/29/16 0333 05/29/16 0333 Microbiology 05/28/16 Aerobic Blood Culture, Received Pending 05/28/16 Anaerobic Blood Culture, Received Pending 05/28/16 Aerobic Blood Culture, Received Pending 05/28/16 Anaerobic Blood Culture, Received Pending 05/28/16 Influenza Types A,B Antigen (FLORES) - Final, Complete NEGATIVE FOR FLU A AND B ANTIGEN.... 05/29/16 Gram Stain - Final, Resulted 05/29/16 Sputum Culture, Resulted Pending Physical Exam General Appearance: Well Developed Eyes Eye Exam: Pupils Equal, Pupils Reactive Neck Neck Exam: Neck Supple Pulmonary Resp Exam: Clear Bilaterally, Breath Sounds Equal Cardiology CV Exam: Regular, Normal Sinus Rhythm Gastrointestinal/Abdomen GI Exam: Soft, Non-Distended Musculoskeletal MS Exam: Joints Intact Integumentary Skin Exam: Intact Extremeties Extremities Exam: No Edema Neurologic Neuro Exam: Unresponsive, Sedated Assessment/Plan Problem List: (1) ESRD on dialysis Plan: He was dialyzed emergently yesterday because of symptomatic hyperkalemia. Serum potassium is acceptable today. No need for dialysis today. (2) Hypertension Plan: He has history of cocaine abuse. Consider toxicology screen. Avoid beta blockers. Consider clonidine patch if necessary. Monitor BP after dialysis and fluid removal. (3) Cocaine abuse (4) DM (diabetes mellitus) Plan: insulin coverage to maintain blood glucose between 140 and 180 (5) Hyperkalemia Plan: improved. (6) NSTEMI (non-ST elevated myocardial infarction) Plan: Troponin I elevated post cardiac arrest, chest compressions. Cardiology to be consulted. Consider beta stacey if BP is stable. Patient's fiance reports that he has not used cocaine recently. Chetan Francisco MD May 29, 2016 11:00
[2016-05-29 11:05] LABS: CREATINE KINASE 176 U/L (39-308)
[2016-05-29 11:31] LABS: CKMB 4.1 NG/ML (0.5-3.6)
--- NOTE | 2016-05-29 11:59 | MB ---
cc: DELFIN SHETTY MD, ALAN S. M.D. DATE OF CONSULTATION: 05/29/2016 REASON FOR CONSULTATION: The patient is a 60-year-old -[place] male who I am seeing for possible cardiac arrest. HISTORY OF PRESENT ILLNESS: The patient has had number of hospitalizations. He has had a hypertensive cardiomyopathy in the past with catheterization 12/01 showing a 30-40% ejection fraction with normal coronary arteries. Last echocardiogram approximately 01/03 showed mild left ventricular dysfunction. The patient does have end-stage renal disease and is on hemodialysis. His history also includes hypertension, noncompliance, CVA without residual, diabetes, cocaine use, hyperlipidemia, PTSD, scrotal surgery, hepatitis C. The patient apparently had had shortness of breath for 2 days. While in the emergency room apparently had bradycardia and a pulseless electrical activity arrest but never lost his complexes. He underwent CPR and had return of circulation. His EKGs have shown sinus rhythm with left ventricular hypertrophy and repolarization abnormalities, venous ultrasound of the legs was negative for DVT. Chest x-ray showed cardiomegaly with elevated right hemidiaphragm and lower lobe infiltrate. Head CT showed no acute changes. CBC essentially normal with mild thrombocytopenia. PT/PTT normal. Initial potassium was 6.8 which is down to 4.4. Creatinine is elevated. CPK is normal have been total. His troponins have been elevated at 0.21/0.59/1.35/1.5. BNP level is greater than 5000. I am unable to get a review of systems. ALLERGIES/INTOLERANCES: Ibuprofen and sulfa. SOCIAL HISTORY: The patient is a smoker and does use cocaine. MEDICATIONS: Medication list reviewed. PHYSICAL EXAMINATION: Afebrile. Vital signs stable. He is intubated. There are no xanthelasma and oral pharyngeal mucosa normal. Chest: Clear. JVD normal. S1-S2 with a questionable S4 but no murmurs. Abdomen: Benign. Extremities: Show no cyanosis, clubbing or edema. Pulses carotids without bruits. Radials, not optimally felt due to restraints. Femorals 1 to 2+ without bruits. Pedals trace to 1+. ASSESSMENT/PLAN Mr. Bloom had a pulseless electrical activity arrest. He does have significant hyperkalemia on admission. He has a history of drug usage and hypertensive cardiomyopathy along with noncompliance. At this point in time there is no definite evidence for an acute ischemic event. His elevated troponin is somewhat nonspecific and could be a type 2 [id number] RI along with his renal dysfunction. Given his overall condition I would not pursue further cardiac workup at this point from an invasive standpoint. I would recommend the followin. Supportive care per critical care. 2. Will leave the critical care to decide on whether pulmonary embolus needs to be ruled out, although this is a lower likelihood. 3. Optimization of electrolytes through nephrology. 4. Tobacco and substance abstinence. I have nothing more to add at this point in time. We will be available this hospital stay as needed. All questions were answered to his girlfriend. MD MANAN Erwin/JACK /11:36 AM /11:48 AM
[2016-05-29] MEDS: AZITHROMYCIN INJ 500 MG in SODIUM CHLOR 0.9% 250 ML INJ 250 ML IV SCH (14:31)
--- NOTE | 2016-05-29 15:08 | EKG ---
Date Performed: 05/29/2016 Time Performed: 02:19:08 PTAGE: 60 years EKG: Sinus arrhythmia. Possible septal infarct - age undetermined Left ventricular hypertrophy S T/T wave changes anterior and laterally, possible ischemia, Clinical correlation is recommended Undul ating baseline laterally may affect reading Abnormal ECG PREVIOUS TRACING : 05/28/16 15:54 Compared to the previous tracing, T wave changes noted DOCTOR: Fabian Burden Interpretating Date/Time 05/29/2016 15:07:40
--- NOTE | 2016-05-29 17:15 | EKG ---
Date Performed: 05/28/2016 Time Performed: 15:54:43 PTAGE: 60 years EKG: Sinus rhythm WITH SINUS ARRHYTHMIA LEFT VENTRICULAR HYPERTROPHY WITH SECONDARY ST/T WAVE CHANGES ABNORMAL ECG PREVIOUS TRACING : 09/23/2015 08.48 Compared to the previous tracing, ST/T wave changes less pr ominent DOCTOR: Fabian Burden Interpretating Date/Time 05/29/2016 17:14:00
[2016-05-29] MEDS: LORazepam 2 MG/ML VIAL IV PUSH PRN (18:28)
[2016-05-30] VITALS (19 sets, daily range): BP systolic 106–130; BP diastolic 58–72; PULSE 76–92; RESP 12–23; TEMP 97.5–98.7; O2SAT 100
[2016-05-30] MEDS: PIPERACIL-TAZO 2.25 GM PREMIX 50 ML IV SCH ×3 (01:03→15:31)
[2016-05-30] MEDS: CHLORHEXIDINE GLUCONATE 2 % 1 PACK (2 CLOTHS) TOP SCH (02:00)
[2016-05-30] MEDS: PROPOFOL 1000 MG/100 ML INJ 100 ML IV SCH ×2 (02:35→15:29)
[2016-05-30] MEDS: RESP: ALBUTEROL 2.5 MG/IPRATROPIUM 0.5 MG NEB (SCH) INH ×4 (04:33→20:28)
[2016-05-30 05:55] LABS: HEMATOCRIT 36.8 % (39.0-51.0); HEMO FLAGS AUTO DIFF; MEAN CELL VOLUME 92.1 FL (80.0-100.0); MEAN CORPUSCULAR HEMOGLOBIN 30.5 PG (27.0-34.0); MEAN CORPUSCULAR HGB CONC 33.1 % (32.0-36.0); PLATELET COUNT 104 TH/MM3 (150-450); RED CELL DISTRIBUTION WIDTH 14.8 % (11.6-17.2); WHITE BLOOD COUNT 9.6 TH/MM3 (4.0-11.0)
[2016-05-30] MEDS: HEPARIN SODIUM - SQ 10,000 UNITS/ML VIAL SQ SCH ×3 (06:00→20:43)
[2016-05-30] MEDS: INSULIN ASPART SUPPLEMENTAL SCALE SQ SCH ×3 (06:00→12:00)
[2016-05-30 06:02] LABS: ALKALINE PHOSPHATASE 66 U/L (45-117); ALT (GPT) 192 U/L (12-78); ANION GAP 14 MEQ/L (5-15); AST (GOT) 364 U/L (15-37); BICARBONATE 28.8 MEQ/L (21.0-32.0); CHLORIDE 96 MEQ/L (98-107); GLOMERULAR FILTRATION RATE 7 ML/MIN (>89); POTASSIUM 5.6 MEQ/L (3.5-5.1); SODIUM (NA) 139 MEQ/L (136-145); TOTAL BILIRUBIN ADULT 1.1 MG/DL (0.2-1.0)
[2016-05-30 06:06] LABS: BLOOD UREA NITROGEN 71 MG/DL (7-18)
[2016-05-30 07:14] LABS: BASOPHILS 1 % (0-2); NEUTROPHIL # MANUAL DIFF 7.1 TH/MM3 (1.8-7.7); PLATELET ESTIMATE SMEAR LOW (NORMAL); PLATELET MORPHOLOGY ENLARGED (NORMAL); POLYS (SEG NEUTROPHILS) 74 % (16-70); SCAN/DIFF FINAL DIFF MANUAL; WBC DIFF SAMPLE 100
[2016-05-30] MEDS: CHLORHEXIDINE 0.12% (ORAL KIT) 15 ML CUP MT SCH ×2 (08:27→19:54)
[2016-05-30] MEDS: ASPIRIN EC 81 MG TABEC PO SCH (08:28)
[2016-05-30] MEDS: SODIUM CHLORIDE 0.9% FLUSH 5 ML FLUSH IV FLUSH SCH ×2 (08:28→19:53)
[2016-05-30] MEDS: DOCUSATE SODIUM 100 MG CAP PO SCH ×2 (08:28→20:43)
[2016-05-30] MEDS: PANTOPRAZOLE SODIUM 40 MG VIAL IV SCH (08:28)
[2016-05-30] MEDS: hydrALAZINE HCL 25 MG TAB PO SCH ×3 (09:00→18:00)
[2016-05-30] MEDS: cloNIDine HCL 0.1 MG TAB PO SCH ×3 (09:00→18:00)
--- NOTE | 2016-05-30 10:06 | HHI.NPPN ---
Subjective Interval History Patient remains intubated.Unresponsive. Objective Data Data 05/29/16 05/30/16 19:00 07:00 Intake Total 192 ml 553 ml Output Total 50 ml 100 ml Balance 142 ml 453 ml Intake IV Total 192 ml 553 ml Output Urine Total 0 ml 0 ml Stool Total 0 ml Gastric Drainage Total 50 ml 100 ml # Bowel Movements 0 0 Vital Signs Date Time Temp Pulse Resp B/P Pulse Ox O2 Delivery O2 Flow Rate FiO2 05/30/16 08:48 100 35 05/30/16 08:48 35 05/30/16 06:00 86 05/30/16 04:33 100 35 05/30/16 04:00 77 05/30/16 04:00 35 05/30/16 04:00 98.2 77 12 106/58 100 05/30/16 02:00 82 05/30/16 01:36 100 35 05/30/16 00:00 98.2 80 15 111/65 100 05/30/16 00:00 35 05/30/16 00:00 80 05/29/16 22:11 100 35 05/29/16 22:00 80 05/29/16 20:00 98.2 81 14 114/60 100 05/29/16 20:00 81 05/29/16 20:00 35 05/29/16 19:55 100 35 05/29/16 18:00 76 05/29/16 16:00 97.4 83 15 92/52 100 05/29/16 16:00 35 05/29/16 16:00 83 05/29/16 15:37 100 35 05/29/16 14:00 81 05/29/16 12:00 79 05/29/16 12:00 35 05/29/16 12:00 97.6 79 20 76/45 100 05/29/16 11:24 98 35 05/29/16 10:00 82 -: 05/30/16 0431 05/30/16 0431 Physical Exam General Appearance: Well Developed Eyes Eye Exam: Pupils Equal, Pupils Reactive Neck Neck Exam: Neck Supple Pulmonary Resp Exam: Clear Bilaterally, Breath Sounds Equal Cardiology CV Exam: Regular, Normal Sinus Rhythm Gastrointestinal/Abdomen GI Exam: Soft, Non-Distended Musculoskeletal MS Exam: Joints Intact Integumentary Skin Exam: Intact Extremeties Extremities Exam: No Edema Neurologic Neuro Exam: Unresponsive, Sedated Assessment/Plan Problem List: (1) ESRD on dialysis Plan: He was dialyzed on 05/28/15, because of hyperkalemia, we will dialyze him again today again for the same reason. (2) Hypertension Plan: BP is acceptable. (3) Cocaine abuse (4) DM (diabetes mellitus) Plan: insulin coverage to maintain blood glucose between 140 and 180 (5) Hyperkalemia Plan: has reappeared, will dialyze him today. (6) NSTEMI (non-ST elevated myocardial infarction) Plan: Troponin I elevated post cardiac arrest, chest compressions. Cardiology following. Consider beta stacey if BP is stable, will leave it supervisor hide house. Chetan Francisco MD May 30, 2016 10:06
[2016-05-30] MEDS: SODIUM CHLOR 0.9% 1000 ML INJ 1,000 ML IV PRN (13:08)
[2016-05-30] MEDS: GELATIN 12 MM/7 MM FOAM TOP PRN (13:08)
[2016-05-30] MEDS: AZITHROMYCIN INJ 500 MG in SODIUM CHLOR 0.9% 250 ML INJ 250 ML IV SCH (15:31)
[2016-05-30] MEDS: LORazepam 2 MG/ML VIAL IV PUSH PRN (15:32)
--- NOTE | 2016-05-30 18:38 | HHI.CCPN ---
Subjective Remarks/Hospital Course 05/28: 60 yo AAM with PMH of HTN, stroke without residual deficit, DM, nonischemic cardiomyopathy (EF 40% and stage I diastolic dysfunction) Cocaine abuse, Hepatitis C, ESRD on HD T/R/Sat who presents to [facility] ED for 2 day history of SOB. He reported symptoms started 1/5 after he received hemodialysis. He reported a nonproductive cough without fevers, chills, or chest pain. His workup revealed a normal white count and CXR that demonstrated RLL consolidation. His potassium was 6.8. While preparations were being made to administer medications to address his hyperkalemia he developed bradycardia and PEA arrest. He underwent CPR and received epinephrine and 1 amp of bicarbonate. It was return of spontaneous circulation after 8 minutes. He was intubated by the emergency department physician Dr. Clancy. Dr. Francisco with nephrology was consulted and he made arrangements for urgent dialysis which is taking place currently. Target removal 3.8 L per HD RN. Postintubation CXR demonstrates R base infiltrate but also appears there is right pleural effusion. Influenza screen negative. Receive Zosyn and azithromycin in the emergency department. 05/29: Sedated, arousable, not following commands, orally intubated on mechanical ventilation. Gets agitated on lightening sedation and has a strong gag reflex. 05/30: Sedated, arousable, not following commands. Remains orally intubated on mechanical ventilation. Failed C Pap trial today. Dialyzed earlier. Objective Vital Signs Date Time Temp Pulse Resp B/P Pulse Ox O2 Delivery O2 Flow Rate FiO2 05/30/16 16:00 86 05/30/16 16:00 97.8 23 129/60 100 05/30/16 16:00 35 05/28/16 21:00 Ventilator 05/28/16 16:02 2 Intake and Output 05/29/16 05/29/16 05/30/16 08:00 16:00 00:00 Intake Total 182 ml 192 ml 413 ml Output Total 250 ml 50 ml 50 ml Balance -68 ml 142 ml 363 ml Result Diagram: 05/30/16 0431 05/30/16 0431 Other Results Microbiology Date/Time Procedure Status Source Growth 05/28/16 16:51 Influenza Types A,B Antigen (FLORES) - Final Complete Nasal Washing NEGATIVE FOR FLU A AND B ANTIGEN.... Imaging Last Impressions Head CT 05/29/16 0000 Signed Impressions: Service Date/Time: Sunday, May 29, 2016 03:03 - CONCLUSION: Age- appropriate atrophy, stable from prior in September 2015. No acute findings. Earnest Torre MD Chest X-Ray 05/28/16 1545 Signed Impressions: Service Date/Time: Saturday, May 28, 2016 15:58 - CONCLUSION: Cardiomegaly which appears compensated. Persistent elevation right hemidiaphragm. Opacity in the right lung base consistent with lower lobe infiltrate Darin Ye MD Lower Extremity Ultrasound 05/28/16 0000 Signed Impressions: Service Date/Time: Saturday, May 28, 2016 22:27 - CONCLUSION: Negative for deep venous thrombosis bilateral lower extremity. Earnest Torre MD Objective Remarks Blood pressure 130/63 pulse 84 sinus sats 100% GENERAL: Well-nourished, well-developed male patient who is orotracheally intubated, currently getting emergent hemodialysis SKIN: Warm and dry, well perfused HEAD: Atraumatic. Normocephalic. EYES: Pupils equal and round, 2 mm and reactive to pinpoint bilaterally. Arcus senilis is present. No scleral icterus. No injection or drainage. ENT: No nasal bleeding or discharge. Mucous membranes pink and moist. NECK: Trachea midline. No JVD. CARDIOVASCULAR: Regular rate and rhythm, sinus rhythm on the monitor with rate in 80s. No murmurs rubs or gallops. RESPIRATORY: No accessory muscle use. Clear to auscultation. Breath sounds equal bilaterally. Synchronous with ventilator with tidal volume 550/rate 14/P5 /FiO2 35% GASTROINTESTINAL: Abdomen soft, non-tender, nondistended.. MUSCULOSKELETAL: Extremities without clubbing, cyanosis, or edema. No obvious deformities. NEUROLOGICAL: Localizes with bilateral upper extremity, withdraws bilateral lower extremity to noxious stimuli. No eye opening. No eye deviation. No evidence of seizure activity. No response to Babinski A/P Assessment and Plan NEURO: Acute encephalopathy, post cardiac arrest. History of stroke without residual deficit (per friend's report) History of cocaine abuse Propofol for sedation. Fentanyl bolus prn pain. Received Ativan 6 mg IV in the ED for intubation 05/28 17:30 RASS -2. Daily sedation vacation. Tra PEA cardiac arrest due to severe hyperkalemia, re-evaluated post-HD in ICU and patient is purposeful, did not meet criteria for induced therapeutic hypothermia. RESP: Acute respiratory failure Healthcare associated pneumonia Intubated in ED 05/28/16 following cardiac arrest Duoneb q6 hours. Albuterol 2 prn. Ventilator Bundle. Daily SBT to decide extubation. Abx as per below CV: Cardiac arrest, secondary to hyperkalemia Nonischemic cardiomyopathy secondary to HTN, cocaine abuse Chronic grade I diastolic dysfunction, systolic dysfunction with prior EF 40% Hypertension Etiology of cardiac arrest appears to be symptomatic hyperkalemia. PE seems less likely as patient not in shock and hypoxia is not out of proportion to CXR finding of RLL infiltrate and effusion. BLE u/s obtained and is negative for DVT. Hold metoprolol for now. Bradycardia likely secondary to hyperkalemia Continue home meds: Hydralazine 25 tid. Clonidine 0.1 tid. Continue ASA 81 mg daily. Mild troponin elevation in setting of ESRD. Last 2 D Echo 01/14/15 +Moderate LVH, EF 50%, Grade I diastolic dysfunction Follow-up 2-D echo-still pending cardiac cath 12/09/2012 - EF 40%, normal coronaries. Elevated troponin, cardiac arrest - consulted cardiology-no intervention planned. Will add betablocker if BP permits. GI: Hepatitis C OG tube to low intermittent wall suction. Initiate enteral feeds in 24 hours if not extubating. FEN/RENAL: ESRD Acute severe hyperkalemia Intermittent hemodialysis per nephrology (Dr. Francisco) Emergent HD 05/28 due to potassium of 6.8 with bradycardia and cardiac arrest Also received albuterol, dextrose, Insulin 5 units IV, Calcium gluconate 1 gram , kayexalate 15 gram in the ED. ID: Acute healthcare associated pneumonia Dialysis patient with right lower lobe consolidation and presenting symptom of shortness of breath. Received Zosyn and azithromycin in the emergency department 05/28. continue Zosyn 2.25 g IV every 8 hours dosed for pneumonia/ ESRD. Azithromycin 500 mg IV daily. F/u sputum culture. Microbiology: 05/28influenza A and B antigen negative blood culture 2 setspending HEME: Monitor CBC Follow bilateral lower extremity ultrasound ENDO: Diabetes mellitus Medium dose Insulin sliding scale with bedside glucose every 6 hours PROPH: Heparin subcutaneous for DVT prophylaxis. Protonix 40 mg IV daily for stress ulcer prophylaxis. ACCESS: Peripheral IV providing adequate access at this time. Left AV fistula accessed for hemodialysis Full code Discussed with Dr. Francisco. Discussed with FUNDRAISER. Critical care time 30 minutes exclusive of separately billable procedures. Rojas Fonseca MD May 30, 2016 18:38
[2016-05-31] VITALS (19 sets, daily range): BP systolic 103–126; BP diastolic 58–69; PULSE 72–90; RESP 13–16; TEMP 97.2–98.1; O2SAT 100
[2016-05-31] MEDS: PIPERACIL-TAZO 2.25 GM PREMIX 50 ML IV SCH ×3 (00:56→17:49)
[2016-05-31] MEDS: CHLORHEXIDINE GLUCONATE 2 % 1 PACK (2 CLOTHS) TOP SCH (04:00)
[2016-05-31] MEDS: RESP: ALBUTEROL 2.5 MG/IPRATROPIUM 0.5 MG NEB (SCH) INH ×4 (04:14→21:32)
[2016-05-31] MEDS: HEPARIN SODIUM - SQ 10,000 UNITS/ML VIAL SQ SCH ×3 (05:23→20:47)
[2016-05-31] MEDS: INSULIN ASPART SUPPLEMENTAL SCALE SQ SCH ×4 (05:23→17:41)
[2016-05-31] MEDS: PANTOPRAZOLE SODIUM 40 MG VIAL IV SCH (08:17)
[2016-05-31] MEDS: SODIUM CHLORIDE 0.9% FLUSH 5 ML FLUSH IV FLUSH SCH ×2 (08:18→20:48)
[2016-05-31] MEDS: DOCUSATE SODIUM 100 MG CAP PO SCH ×2 (08:18→20:47)
[2016-05-31] MEDS: ASPIRIN EC 81 MG TABEC PO SCH (08:19)
[2016-05-31] MEDS: CHLORHEXIDINE 0.12% (ORAL KIT) 15 ML CUP MT SCH ×2 (08:22→20:48)
[2016-05-31] MEDS: hydrALAZINE HCL 25 MG TAB PO SCH ×3 (08:23→17:49)
[2016-05-31] MEDS: cloNIDine HCL 0.1 MG TAB PO SCH ×3 (08:23→17:49)
[2016-05-31] MEDS ORDERED: ASPIRIN 81 MG CHEW TAB CHEW ONE (09:45)
--- NOTE | 2016-05-31 09:50 | HHI.CCPN ---
Subjective Remarks/Hospital Course 05/28: 60 yo AAM with PMH of HTN, stroke without residual deficit, DM, nonischemic cardiomyopathy (EF 40% and stage I diastolic dysfunction) Cocaine abuse, Hepatitis C, ESRD on HD T/R/Sat who presents to [facility] ED for 2 day history of SOB. He reported symptoms started 1 after he received hemodialysis. He reported a nonproductive cough without fevers, chills, or chest pain. His workup revealed a normal white count and CXR that demonstrated RLL consolidation. His potassium was 6.8. While preparations were being made to administer medications to address his hyperkalemia he developed bradycardia and PEA arrest. He underwent CPR and received epinephrine and 1 amp of bicarbonate. It was return of spontaneous circulation after 8 minutes. He was intubated by the emergency department physician Dr. Clancy. Dr. Francisco with nephrology was consulted and he made arrangements for urgent dialysis which is taking place currently. Target removal 3.8 L per HD RN. Postintubation CXR demonstrates R base infiltrate but also appears there is right pleural effusion. Influenza screen negative. Receive Zosyn and azithromycin in the emergency department. 05/29: Sedated, arousable, not following commands, orally intubated on mechanical ventilation. Gets agitated on lightening sedation and has a strong gag reflex. 05/30: Sedated, arousable, not following commands. Remains orally intubated on mechanical ventilation. Failed C Pap trial today. Dialyzed earlier. 05/31: Sedated/encephalopathic on lightening sedation, not following commands. Remains orally intubated on mechanical ventilation. Failed C Pap trials yesterday. 2-D echo just being completed today. Objective Vital Signs Date Time Temp Pulse Resp B/P Pulse Ox O2 Delivery O2 Flow Rate FiO2 05/31/16 09:18 100 35 05/31/16 08:00 80 05/31/16 04:00 97.8 13 120/69 05/28/16 21:00 Ventilator 05/28/16 16:02 2 Intake and Output 05/30/16 05/30/16 05/31/16 08:00 16:00 00:00 Intake Total 140 ml 574 ml Output Total 50 ml 2000 ml 0 ml Balance 90 ml -2000 ml 574 ml Result Diagram: 05/30/16 0431 05/30/16 0431 Other Results Microbiology Date/Time Procedure Status Source Growth 05/28/16 16:51 Influenza Types A,B Antigen (FLORES) - Final Complete Nasal Washing NEGATIVE FOR FLU A AND B ANTIGEN.... Imaging Last Impressions Head CT 05/29/16 0000 Signed Impressions: Service Date/Time: Sunday, May 29, 2016 03:03 - CONCLUSION: Age- appropriate atrophy, stable from prior in September 2015. No acute findings. Earnest Torre MD Chest X-Ray 05/28/16 1545 Signed Impressions: Service Date/Time: Saturday, May 28, 2016 15:58 - CONCLUSION: Cardiomegaly which appears compensated. Persistent elevation right hemidiaphragm. Opacity in the right lung base consistent with lower lobe infiltrate Darin Ye MD Lower Extremity Ultrasound 05/28/16 0000 Signed Impressions: Service Date/Time: Saturday, May 28, 2016 22:27 - CONCLUSION: Negative for deep venous thrombosis bilateral lower extremity. Earnest Torre MD Objective Remarks Blood pressure 130/63 pulse 84 sinus sats 100% GENERAL: Well-nourished, well-developed male patient who is orotracheally intubated SKIN: Warm and dry, well perfused HEAD: Atraumatic. Normocephalic. EYES: Pupils equal and round, 2 mm and reactive to pinpoint bilaterally. Arcus senilis is present. No scleral icterus. No injection or drainage. ENT: No nasal bleeding or discharge. Mucous membranes pink and moist. NECK: Trachea midline. No JVD. CARDIOVASCULAR: Regular rate and rhythm, sinus rhythm on the monitor with rate in 80s. No murmurs rubs or gallops. RESPIRATORY: No accessory muscle use. Clear to auscultation. Breath sounds equal bilaterally. Synchronous with ventilator with tidal volume 550/rate 14/P5 /FiO2 35% GASTROINTESTINAL: Abdomen soft, non-tender, nondistended.. MUSCULOSKELETAL: Extremities without clubbing, cyanosis, or edema. No obvious deformities. NEUROLOGICAL: Localizes with bilateral upper extremity, withdraws bilateral lower extremity to noxious stimuli. No eye opening. No eye deviation. No evidence of seizure activity. No response to Babinski A/P Assessment and Plan NEURO: Acute encephalopathy, post cardiac arrest. History of stroke without residual deficit (per friend's report) History of cocaine abuse Propofol for sedation. Fentanyl bolus prn pain. Will attempt transition to Precedex for C Pap trials and to avoid further narcotics and Ativan. EEG ordered. Consult Neurology for encephalopathy. Received Ativan 6 mg IV in the ED for intubation 05/28 17:30 RASS -2. Daily sedation vacation. Tra PEA cardiac arrest due to severe hyperkalemia, re-evaluated post-HD in ICU and patient is purposeful, did not meet criteria for induced therapeutic hypothermia. RESP: Acute respiratory failure Healthcare associated pneumonia Intubated in ED 05/28/16 following cardiac arrest Duoneb q6 hours. Albuterol 2 prn. Ventilator Bundle. Daily SBT to decide extubation. Abx as per below CV: Cardiac arrest, secondary to hyperkalemia Nonischemic cardiomyopathy secondary to HTN, cocaine abuse Chronic grade I diastolic dysfunction, systolic dysfunction with prior EF 40% Hypertension Elevated Troponin: ? NSTEMI Etiology of cardiac arrest appears to be symptomatic hyperkalemia. PE seems less likely as patient not in shock and hypoxia is not out of proportion to CXR finding of RLL infiltrate and effusion. BLE u/s obtained and is negative for DVT. Bradycardia likely secondary to hyperkalemia. Betablocker held on admission, starting lopressor 25mg Q6 on 05/31. Continue home meds: Hydralazine 25 tid. Clonidine 0.1 tid. ASA 81 mg daily. Mild troponin elevation in setting of ESRD. Last 2 D Echo 01/14/15 +Moderate LVH, EF 50%, Grade I diastolic dysfunction Follow-up 2-D echo-still pending cardiac cath 12/09/2012 - EF 40%, normal coronaries. Elevated troponin, cardiac arrest - consulted cardiology-no intervention planned. GI: Hepatitis C OG tube to low intermittent wall suction. Initiate enteral feeds in 24 hours if not extubating. FEN/RENAL: ESRD Acute severe hyperkalemia Intermittent hemodialysis per nephrology (Dr. Francisco) Emergent HD 05/28 due to potassium of 6.8 with bradycardia and cardiac arrest Also received albuterol, dextrose, Insulin 5 units IV, Calcium gluconate 1 gram , kayexalate 15 gram in the ED. ID: Acute healthcare associated pneumonia Dialysis patient with right lower lobe consolidation and presenting symptom of shortness of breath. Received Zosyn and azithromycin in the emergency department 05/28. continue Zosyn 2.25 g IV every 8 hours dosed for pneumonia/ ESRD. Azithromycin 500 mg IV daily. F/u sputum culture. Microbiology: 05/28influenza A and B antigen negative blood culture 2 setspending HEME: Monitor CBC Follow bilateral lower extremity ultrasound ENDO: Diabetes mellitus Medium dose Insulin sliding scale with bedside glucose every 6 hours PROPH: Heparin subcutaneous for DVT prophylaxis. Protonix 40 mg IV daily for stress ulcer prophylaxis. ACCESS: Peripheral IV providing adequate access at this time. Left AV fistula accessed for hemodialysis Full code Discussed with Dr. Francisco. Discussed with AIRLINE RESERVATIONIST. Critical care time 30 minutes exclusive of separately billable procedures. Rojas Fonseca MD May 31, 2016 09:50
[2016-05-31] MEDS: DEXMEDETOMIDINE INJ 50 ML IV SCH ×2 (10:36→16:45)
--- NOTE | 2016-05-31 11:07 | HHI.NPPN ---
Subjective Interval History he remains intubated. Does not respond to verbal commands. Had dialysis yesterday. Objective Data Data 05/30/16 05/31/16 19:00 07:00 Intake Total 860 ml Output Total 2000 ml 0 ml Balance -2000 ml 860 ml Intake IV Total 630 ml Tube Feeding 230 ml Output Urine Total 0 ml Hemodialysis 2000 ml Vital Signs Date Time Temp Pulse Resp B/P Pulse Ox O2 Delivery O2 Flow Rate FiO2 05/31/16 09:18 100 35 05/31/16 08:00 80 05/31/16 06:00 80 05/31/16 04:00 83 05/31/16 04:00 35 05/31/16 04:00 97.8 83 13 120/69 100 05/31/16 02:00 85 05/31/16 01:04 100 35 05/31/16 00:00 97.7 79 16 126/64 100 05/31/16 00:00 79 05/31/16 00:00 35 05/30/16 22:30 100 35 05/30/16 22:00 81 05/30/16 20:28 100 35 05/30/16 20:00 80 05/30/16 20:00 97.5 80 21 126/66 100 05/30/16 20:00 35 05/30/16 18:00 92 05/30/16 16:00 86 05/30/16 16:00 97.8 86 23 129/60 100 05/30/16 16:00 35 05/30/16 15:55 100 35 05/30/16 14:00 76 05/30/16 12:19 100 35 05/30/16 12:00 98.7 86 21 130/72 100 05/30/16 12:00 35 05/30/16 12:00 86 -: 05/30/16 0431 05/30/16 0431 Physical Exam General Appearance: Well Developed Eyes Eye Exam: Pupils Equal, Pupils Reactive Neck Neck Exam: Neck Supple Pulmonary Resp Exam: Clear Bilaterally, Breath Sounds Equal Cardiology CV Exam: Regular, Normal Sinus Rhythm Gastrointestinal/Abdomen GI Exam: Soft, Non-Distended Musculoskeletal MS Exam: Joints Intact Integumentary Skin Exam: Intact Extremeties Extremities Exam: No Edema Neurologic Neuro Exam: Unresponsive, Sedated Assessment/Plan Problem List: (1) ESRD on dialysis Plan: Dialyzed yesterday due to hyperkalemia. Serum potassium is acceptable today. Monitor. Dialysis tomorrow. Start Calcium acetate through feeding tube. (2) Hypertension Plan: BP is acceptable. (3) Cocaine abuse (4) DM (diabetes mellitus) Plan: insulin coverage to maintain blood glucose between 140 and 180 (5) Hyperkalemia Plan: improved. (6) NSTEMI (non-ST elevated myocardial infarction) Plan: Troponin I elevated post cardiac arrest, chest compressions. Cardiology following. Chetan Francisco MD May 31, 2016 11:07
[2016-05-31 11:31] LABS: AUTOMATED NEUTROPHIL # 3.9 TH/MM3 (1.8-7.7); BASOPHIL % 0.5 % (0.0-2.0); EOSINOPHIL % 0.3 % (0.0-4.0); HEMATOCRIT 43.1 % (39.0-51.0); HEMO FLAGS DIFF FINAL; LYMPH % 9.3 % (9.0-44.0); LYMPHOCYTE # 0.5 TH/MM3 (1.0-4.8); MEAN CELL VOLUME 94.1 FL (80.0-100.0); MEAN CORPUSCULAR HEMOGLOBIN 30.5 PG (27.0-34.0); MEAN CORPUSCULAR HGB CONC 32.5 % (32.0-36.0); MONO % 17.3 % (0.0-8.0); NEUT % 72.6 % (16.0-70.0); PLATELET COUNT 103 TH/MM3 (150-450); RED BLOOD COUNT 4.58 MIL/MM3 (4.50-5.90); RED CELL DISTRIBUTION WIDTH 14.9 % (11.6-17.2); WHITE BLOOD COUNT 5.3 TH/MM3 (4.0-11.0)
[2016-05-31 11:59] LABS: ALKALINE PHOSPHATASE 78 U/L (45-117); ALT (GPT) 138 U/L (12-78); ANION GAP 9 MEQ/L (5-15); AST (GOT) 226 U/L (15-37); BICARBONATE 31.7 MEQ/L (21.0-32.0); BLOOD UREA NITROGEN 54 MG/DL (7-18); CHLORIDE 99 MEQ/L (98-107); GLOMERULAR FILTRATION RATE 8 ML/MIN (>89); SODIUM (NA) 140 MEQ/L (136-145)
[2016-05-31 12:02] LABS: POTASSIUM 5.3 MEQ/L (3.5-5.1)
[2016-05-31] MEDS: METOPROLOL TARTRATE 25 MG TAB PO/NG SCH ×2 (13:21→17:48)
[2016-05-31] MEDS: CALCIUM ACETATE 667 MG CAP NG SCH ×2 (13:21→17:50)
--- NOTE | 2016-05-31 14:03 | MB ---
cc: AMARILIS HARDIN M.D. DATE OF CONSULTATION: 05/31/2016 HISTORY OF PRESENT ILLNESS The patient is a 60-year-old seen in neurological consultation. The patient has an extensive medical history and apparently has had a stroke without residual neurological deficits, history of diabetes and renal failure, hepatitis C, cocaine abuse and history of cardiomyopathy. He was admitted and in the hospital he was coded and has been in the intensive care unit. His potassium was elevated. He is intubated and has been somewhat poorly responsive after sedation was reduced. I saw him along with the nursing staff. The family was in the room. NEUROLOGICAL EXAMINATION The patient is intubated and not following commands but moderate somatosensory stimulation by tapping the forehead or by stimulating the plantar responses led to significant withdrawal. He grimaces appropriately. His withdrawal was appropriate and he withdrew all four limbs. Reflexes appear to be absent throughout and plantar responses were flexor. The pupils were small but upon stimulation his pupils became a bit larger. He is noted to be responding to suction through the endotracheal tube. LABORATORY DATA His current labs were reviewed. IMAGING DATA The CT brain was normal. LABORATORY DATA Today the WBC is 5.3, hemoglobin 14.0, platelets 103. Chemistry: Potassium 5.3, sodium 140, glucose 113, calcium 8.3, AST down to 226, and ALT 138. ASSESSMENT Metabolic encephalopathy. RECOMMENDATIONS An EEG was currently completed, no results yet. I will follow the neurological course. His current neurologic exam is encouraging and would suggest continuing the aggressive medical care. Will follow him and depending upon his clinical course will consider MRI of brain later on, but I do not think it is necessary at this point. Thank you for asking us to assist in his care. MD BINTA Vo/GRISELDA /1:18 PM /1:53 PM
--- NOTE | 2016-05-31 14:26 | EC ---
Study Study Date:05/31/2016 STUDY CONCLUSIONS SUMMARY - Left ventricle: The cavity size was mildly dilated. Wall thickness was at the upper limits of normal. Systolic function was severely reduced. The estimated ejection fraction was in the range of 25% to 30%. Wall motion was normal; there were no regional wall motion abnormalities. - Aortic valve: Valve area: 2.63cm^2 (Vmax). - Mitral valve: Mild regurgitation. - Tricuspid valve: Mild regurgitation. - Pulmonary arteries: PA peak pressure: 36mm Hg (S). If LV function is below 40, please consider prescribing an ACEI or ARB or document rationale for non-use. PROCEDURE DATA STUDY STATUS: Elective. Procedure: Transthoracic echocardiography. Image quality was good. Scanning was performed from the parasternal, apical, and subcostal acoustic windows. Study completion: The patient tolerated the procedure well. Transthoracic echocardiography. M-mode, complete 2D, complete spectral Doppler, and color Doppler. Height: Height: 70in. Weight: Weight: 135.7lb. Body mass index: BMI: 19.5kg/m^2. Body surface area: BSA: 1.77m^2. Patient status: Inpatient. CARDIAC ANATOMY LEFT VENTRICLE: The cavity size was mildly dilated. Wall thickness was at the upper limits of normal. Systolic function was severely reduced. The estimated ejection fraction was in the range of 25% to 30%. Wall motion was normal; there were no regional wall motion abnormalities. AORTIC VALVE: Trileaflet; mildly thickened, mildly calcified leaflets. Doppler: Transvalvular velocity was within the normal range. There was no stenosis. No regurgitation. Valve area: 2.63cm^2 (Vmax). Indexed valve area: 1.49cm^2/m^2 (Vmax). AORTA: Aortic root: The aortic root was normal in size. MITRAL VALVE: mitral valve leaflets appear restricted in motion. 2d inspection reveals possible mild mitral valve stenosis, gradient and area not determined on this study Structurally normal valve. Doppler: Transvalvular velocity was within the normal range. There was no evidence for stenosis. Mild regurgitation. Peak gradient: 5mm Hg (D). LEFT ATRIUM: The atrium was normal in size. RIGHT VENTRICLE: The cavity size was normal. Wall thickness was normal. PULMONIC VALVE: Doppler: Transvalvular velocity was within the normal range. There was no evidence for stenosis. No regurgitation. TRICUSPID VALVE: Structurally normal valve. Doppler: Transvalvular velocity was within the normal range. Mild regurgitation. PULMONARY ARTERY: The main pulmonary artery was normal-sized. Systolic pressure was within the normal range. RIGHT ATRIUM: The atrium was normal in size. PERICARDIUM: There was no pericardial effusion. SYSTEMIC VEINS: Inferior vena cava: The vessel was normal in size. Patient weight: 135.7lb _Ejection fraction:_ 65-75% _Fractional shortening:_ 32% up to 5Kg 5-11.5Kg 11.6-22.9Kg 23-45Kg 45-57Kg Aortic Root 7-13 <17 13-22 17-27 17-27 LA diam 6-13 <23 24-38 33-47 37-40 RVID 10-17 7-15 7-15 7-18 8-17 LVIDd 12-22 <32 24-38 33-47 37-40 LVPW 2-4 3-6 5-7 6-8 7-8 IVS 2-4 3-6 5-7 6-8 7-8 BASIC MEASUREMENTS ADULT NORMAL Left ventricle LV internal dimension, ED, chordal *58.6 mm 43-52 level, PLAX LV internal dimension, ES, chordal *52.5 mm 23-38 level, PLAX Fractional shortening, chordal level, *10 % >29 PLAX LV posterior wall thickness, ED 9.13 mm IVS/LVPW ratio, ED 0.89 <1.3 Ventricular septum Septal thickness, ED 8.11 mm Aortic valve Leaflet separation 25 mm 15-26 Right ventricle RV internal dimension, ED, PLAX 20.3 mm 19-38 BASIC MEASUREMENTS ADULT NORMAL Aortic valve Leaflet separation 25 mm 15-26 Aorta Root diameter, ED 27 mm 20-37 Left atrium Anterior-posterior dimension, ES 35 mm 19-40 Anterior-posterior dimension index, ES 1.98 cm/m^2 <2.2 LA/aortic root ratio 1.3 DOPPLER MEASUREMENTS ADULT NORMAL Main pulmonary artery Pressure, S *36 mm Hg =30 Aortic valve Peak velocity, S 141 cm/s Valve area, Vmax 2.63 cm^2 Valve area index, Vmax 1.49 cm^2/m^2 Mitral valve Peak E-wave velocity 116 cm/s Peak A-wave velocity 60.2 cm/s Deceleration time *148 ms 150-230 Peak gradient, D 5 mm Hg Peak E/A ratio 1.9 Maximal regurgitant velocity 296 cm/s Tricuspid valve Regurgitant peak velocity 232 cm/s Peak RV-RA gradient, S 22 mm Hg Maximal regurgitant velocity 232 cm/s Systemic veins Estimated CVP 10 mm Hg Right ventricle RV pressure, S *39 mm Hg <30 Pulmonic valve Peak velocity, S 85.5 cm/s LEGEND: Mean values are shown as u=mean value. Asterisk (*) zimmer values outside specified normal range. Prepared and signed by Sebas Jean-Baptiste [id number]
--- NOTE | 2016-05-31 15:55 | MG ---
cc: DREA RTOY M.D. Lab No: Date: Age: Sex: M Race: DATE OF 1955, 60 years of age. ELECTROENCEPHALOGRAM NUMBER [id number] Fonseca. ROOM 509 Intubated on Precedex. Very restless, will not hold still off of the drug. So Precedex is continued during the recording. Photic stimulation was done. He withdraws all four extremities but will not follow any commands. CT shows age-appropriate atrophy, stable from last EEG September 2015. Mild encephalopathy. He is status post PEA arrest, CPR for 8 minutes, history of stroke, hypertension, diabetes, cardiomyopathy, cocaine use, hep C end-stage renal disease on hemodialysis. MEDICATIONS 1. Ativan. 2. Precedex. 3. Protonix. 4. Aspirin. 5. Apresoline. 6. Zosyn/ DESCRIPTION There is overall slowing of the background predominately at 1-2 Hz consistent with delta wave activity. EKG looks to be sinus at this one point in time. Overall background slowing. On occasion there are what appears to be some sharp waves bilaterally seen at epoch 30, not continuous. Quite a bit of artifact from movement is noted as well. Photic stimulation was performed with some minimal driving response. IMPRESSION Abnormal EEG due to moderate slowing as well as some occasional sharps, possible focus for epileptic activity. Clinical correlation. MD AMANDA Duggan/GOLDIE /3:30 PM /3:49 PM
[2016-05-31] MEDS: AZITHROMYCIN INJ 500 MG in SODIUM CHLOR 0.9% 250 ML INJ 250 ML IV SCH (16:29)
[2016-06-01] VITALS (20 sets, daily range): BP systolic 118–136; BP diastolic 66–77; PULSE 68–76; RESP 12; TEMP 96.3–97.8; O2SAT 97–100
[2016-06-01] MEDS: METOPROLOL TARTRATE 25 MG TAB PO/NG SCH ×5 (00:16→23:51)
[2016-06-01] MEDS: PIPERACIL-TAZO 2.25 GM PREMIX 50 ML IV SCH ×4 (00:16→23:51)
[2016-06-01] MEDS: DEXMEDETOMIDINE INJ 50 ML IV SCH ×5 (03:16→23:50)
[2016-06-01] MEDS: RESP: ALBUTEROL 2.5 MG/IPRATROPIUM 0.5 MG NEB (SCH) INH ×3 (03:18→16:18)
[2016-06-01] MEDS: CHLORHEXIDINE GLUCONATE 2 % 1 PACK (2 CLOTHS) TOP SCH (04:00)
[2016-06-01 05:07] LABS: AUTOMATED NEUTROPHIL # 2.4 TH/MM3 (1.8-7.7); BASOPHIL % 0.5 % (0.0-2.0); EOSINOPHIL # 0.1 TH/MM3 (0-0.4); EOSINOPHIL % 1.5 % (0.0-4.0); HEMATOCRIT 40.2 % (39.0-51.0); LYMPH % 12.9 % (9.0-44.0); LYMPHOCYTE # 0.5 TH/MM3 (1.0-4.8); MEAN CELL VOLUME 92.8 FL (80.0-100.0); MEAN CORPUSCULAR HEMOGLOBIN 30.1 PG (27.0-34.0); MEAN CORPUSCULAR HGB CONC 32.4 % (32.0-36.0); MONO % 20.4 % (0.0-8.0); NEUT % 64.7 % (16.0-70.0); PLATELET COUNT 93 TH/MM3 (150-450); RED BLOOD COUNT 4.33 MIL/MM3 (4.50-5.90); RED CELL DISTRIBUTION WIDTH 14.4 % (11.6-17.2); WHITE BLOOD COUNT 3.7 TH/MM3 (4.0-11.0)
[2016-06-01] MEDS: HEPARIN SODIUM - SQ 10,000 UNITS/ML VIAL SQ SCH ×3 (05:27→21:29)
[2016-06-01] MEDS: INSULIN ASPART SUPPLEMENTAL SCALE SQ SCH ×2 (05:28)
[2016-06-01 05:44] LABS: ALKALINE PHOSPHATASE 88 U/L (45-117); ALT (GPT) 106 U/L (12-78); ANION GAP 15 MEQ/L (5-15); AST (GOT) 148 U/L (15-37); BICARBONATE 28.7 MEQ/L (21.0-32.0); BLOOD UREA NITROGEN 59 MG/DL (7-18); CHLORIDE 99 MEQ/L (98-107); GLOMERULAR FILTRATION RATE 7 ML/MIN (>89); POTASSIUM 3.7 MEQ/L (3.5-5.1); SODIUM (NA) 143 MEQ/L (136-145)
--- NOTE | 2016-06-01 06:08 | RADRPT ---
EXAM DATE/TIME: 06/01/2016 04:53 [facility] COMPARISON: CHEST SINGLE AP, May 28, 2016, 18:00. INDICATIONS : Respiratory distress. MEDICAL HISTORY : Renal failure, chronic. Stroke. Myocardial infarction. Cardiomegaly. SURGICAL HISTORY : None. ENCOUNTER: Subsequent ACUITY: 4 - 6 days PAIN SCORE: Non-responsive. LOCATION: Bilateral chest FINDINGS: A single view of the chest demonstrates right basilar density likely pleural effusion and minimal lef t retrocardiac density. Heart mildly enlarged. Endotracheal tube and nasogastric tube stable in posit ion. The cardiomediastinal contours are unremarkable. Osseous structures are intact. CONCLUSION: 1. Small right pleural effusion stable. 2. Minimal left retrocardiac density. Ozzie Jerez MD on June 01, 2016 at 6:04 Board Certified Radiologist. This report was verified electronically.
[2016-06-01 06:25] LABS: HEMO FLAGS AUTO DIFF
[2016-06-01] MEDS: cloNIDine HCL 0.1 MG TAB PO SCH ×3 (08:18→17:19)
[2016-06-01] MEDS: PANTOPRAZOLE SODIUM 40 MG VIAL IV SCH (08:18)
[2016-06-01] MEDS: DOCUSATE SODIUM 100 MG CAP PO SCH ×2 (08:18→21:28)
[2016-06-01] MEDS: hydrALAZINE HCL 25 MG TAB PO SCH ×3 (08:18→17:19)
[2016-06-01] MEDS: ASPIRIN EC 81 MG TABEC PO SCH (08:18)
[2016-06-01] MEDS: CALCIUM ACETATE 667 MG CAP NG SCH ×3 (08:18→17:19)
[2016-06-01] MEDS: CHLORHEXIDINE 0.12% (ORAL KIT) 15 ML CUP MT SCH ×2 (08:19→21:29)
[2016-06-01] MEDS: SODIUM CHLORIDE 0.9% FLUSH 5 ML FLUSH IV FLUSH SCH ×2 (08:19→21:00)
[2016-06-01] MEDS ORDERED: DEXTROSE 50% IN WATER 50 ML VIAL(D50) IV PUSH PRN (08:45)
[2016-06-01] MEDS ORDERED: GLUCAGON 1 MG/ML VIAL OTHER PRN (08:45)
--- NOTE | 2016-06-01 08:47 | HHI.CCPN ---
Subjective Remarks/Hospital Course 05/28: 60 yo AAM with PMH of HTN, stroke without residual deficit, DM, nonischemic cardiomyopathy (EF 40% and stage I diastolic dysfunction) Cocaine abuse, Hepatitis C, ESRD on HD T/R/Sat who presents to [facility] ED for 2 day history of SOB. He reported symptoms started 1 after he received hemodialysis. He reported a nonproductive cough without fevers, chills, or chest pain. His workup revealed a normal white count and CXR that demonstrated RLL consolidation. His potassium was 6.8. While preparations were being made to administer medications to address his hyperkalemia he developed bradycardia and PEA arrest. He underwent CPR and received epinephrine and 1 amp of bicarbonate. It was return of spontaneous circulation after 8 minutes. He was intubated by the emergency department physician Dr. Clancy. Dr. Francisco with nephrology was consulted and he made arrangements for urgent dialysis which is taking place currently. Target removal 3.8 L per HD RN. Postintubation CXR demonstrates R base infiltrate but also appears there is right pleural effusion. Influenza screen negative. Receive Zosyn and azithromycin in the emergency department. 05/29: Sedated, arousable, not following commands, orally intubated on mechanical ventilation. Gets agitated on lightening sedation and has a strong gag reflex. 05/30: Sedated, arousable, not following commands. Remains orally intubated on mechanical ventilation. Failed C Pap trial today. Dialyzed earlier. 05/31: Sedated/encephalopathic on lightening sedation, not following commands. Remains orally intubated on mechanical ventilation. Failed C Pap trials yesterday. 2-D echo just being completed today. 06/01 No events overnight. On Precedex drip unresponsive and doesn't follow commands. Afebrile. Objective Vital Signs Date Time Temp Pulse Resp B/P Pulse Ox O2 Delivery O2 Flow Rate FiO2 06/01/16 08:00 96.3 69 12 135/77 100 06/01/16 08:00 35 05/28/16 21:00 Ventilator 05/28/16 16:02 2 Intake and Output 05/31/16 05/31/16 06/01/16 08:00 16:00 00:00 Intake Total 286 ml 639 ml 627 ml Output Total 0 ml 0 ml Balance 286 ml 639 ml 627 ml Result Diagram: 06/01/16 0322 06/01/16 0322 Other Results Laboratory Tests Test 05/31/16 06/01/16 10:55 03:22 White Blood Count 5.3 TH/MM3 3.7 TH/MM3 Red Blood Count 4.58 MIL/MM3 4.33 MIL/MM3 Hemoglobin 14.0 GM/DL 13.0 GM/DL Hematocrit 43.1 % 40.2 % Mean Corpuscular Volume 94.1 FL 92.8 FL Mean Corpuscular Hemoglobin 30.5 PG 30.1 PG Mean Corpuscular Hemoglobin 32.5 % 32.4 % Concent Red Cell Distribution Width 14.9 % 14.4 % Platelet Count 103 TH/MM3 93 TH/MM3 Mean Platelet Volume 12.3 FL 11.3 FL Neutrophils (%) (Auto) 72.6 % 64.7 % Lymphocytes (%) (Auto) 9.3 % 12.9 % Monocytes (%) (Auto) 17.3 % 20.4 % Eosinophils (%) (Auto) 0.3 % 1.5 % Basophils (%) (Auto) 0.5 % 0.5 % Neutrophils # (Auto) 3.9 TH/MM3 2.4 TH/MM3 Lymphocytes # (Auto) 0.5 TH/MM3 0.5 TH/MM3 Monocytes # (Auto) 0.9 TH/MM3 0.8 TH/MM3 Eosinophils # (Auto) 0.0 TH/MM3 0.1 TH/MM3 Basophils # (Auto) 0.0 TH/MM3 0.0 TH/MM3 CBC Comment DIFF FINAL AUTO DIFF Differential Comment Sodium Level 140 MEQ/L 143 MEQ/L Potassium Level 5.3 MEQ/L 3.7 MEQ/L Chloride Level 99 MEQ/L 99 MEQ/L Carbon Dioxide Level 31.7 MEQ/L 28.7 MEQ/L Anion Gap 9 MEQ/L 15 MEQ/L Blood Urea Nitrogen 54 MG/DL 59 MG/DL Creatinine 8.00 MG/DL 9.11 MG/DL Estimat Glomerular Filtration 8 ML/MIN 7 ML/MIN Rate Random Glucose 113 MG/DL 121 MG/DL Calcium Level 8.3 MG/DL 8.3 MG/DL Total Bilirubin 1.0 MG/DL 1.0 MG/DL Aspartate Amino Transf 226 U/L 148 U/L (AST/SGOT) Alanine Aminotransferase 138 U/L 106 U/L (ALT/SGPT) Alkaline Phosphatase 78 U/L 88 U/L Total Protein 6.6 GM/DL 6.2 GM/DL Albumin 2.1 GM/DL 2.1 GM/DL Imaging Last Impressions Chest X-Ray 06/01/16 0000 Signed Impressions: Service Date/Time: Wednesday, June 01, 2016 04:53 - CONCLUSION: 1. Small right pleural effusion stable. 2. Minimal left retrocardiac density. Ozzie Jerez MD Head CT 05/29/16 0000 Signed Impressions: Service Date/Time: Sunday, May 29, 2016 03:03 - CONCLUSION: Age- appropriate atrophy, stable from prior in September 2015. No acute findings. Earnest Torre MD Lower Extremity Ultrasound 05/28/16 0000 Signed Impressions: Service Date/Time: Saturday, May 28, 2016 22:27 - CONCLUSION: Negative for deep venous thrombosis bilateral lower extremity. Earnest Torre MD Objective Remarks GENERAL: Patient is 60 yo intubated and sedated. SKIN: Warm and dry. HEAD: Normocephalic. EYES: No scleral icterus. No injection or drainage. NECK: Supple, trachea midline. No JVD or lymphadenopathy. CARDIOVASCULAR: Regular rate and rhythm without murmurs, gallops, or rubs. RESPIRATORY: Breath sounds equal bilaterally. No accessory muscle use. GASTROINTESTINAL: Abdomen soft, non-tender, nondistended. MUSCULOSKELETAL: No cyanosis, or edema. Neuro: Intubated, unresponsive. A/P Assessment and Plan NEURO: Acute encephalopathy, post cardiac arrest. History of stroke without residual deficit (per friend's report) History of cocaine abuse On Precedex infusion for sedation. Daily sedation vacation. RASS -2. EEG showed mod. slowing, possible focus for epileptic activity Neuro is following-Dr. Wilks RESP: Acute respiratory failure Healthcare associated pneumonia Intubated in ED 05/28/16 following cardiac arrest Duoneb q6 hours. Albuterol 2 prn. Ventilator Bundle. Daily SBT as leana Abx as per below CV: Cardiac arrest, secondary to hyperkalemia Nonischemic cardiomyopathy secondary to HTN, cocaine abuse Hypertension Elevated Troponin: ? NSTEMI Monitor HR and BP keep MAP>65mmHg Continue home meds: Hydralazine 25 tid. Clonidine 0.1 tid., Lopressor 25mg Q6 ASA 81 mg daily. Mild troponin elevation in setting of ESRD. Echo 05/31: EF 25-30%, no RWMA cardiac cath 12/09/2012 - EF 40%, normal coronaries. Elevated troponin, cardiac arrest cardiology is following-no intervention planned. GI: Hepatitis C Elevated LFT Continue TF-Nepro@30ml/hr Monitor LFT's, check US liver FEN/RENAL: ESRD Acute severe hyperkalemia Intermittent hemodialysis per nephrology (Dr. Francisco) Emergent HD 05/28 due to potassium of 6.8 with bradycardia and cardiac arrest Monitor renal function, I/O's, avoid nephrotoxins. HD per renal. ID: Acute healthcare associated pneumonia Received Zosyn and azithromycin in the emergency department 05/28. On Zosyn 2.25 g IV every 8 hours dosed for pneumonia/ESRD. Azithromycin 500 mg IV daily. 05/29 Sputum cx: nl jorge l, 05/28 nasal washing negative for Influenza. HEME: Monitor CBC ENDO: Diabetes mellitus Medium dose Insulin sliding scale with bedside glucose every 6 hours PROPH: Heparin subcutaneous for DVT prophylaxis. Protonix 40 mg IV daily for stress ulcer prophylaxis. Doppler US LE negative for DVT ACCESS: Peripheral IV providing adequate access at this time. Left AV fistula accessed for hemodialysis Full code Discussed with FITNESS ASSISTANT. Palliative care to asses with goals of care Critical care time 30 minutes exclusive of separately billable procedures. Deloris Campuzano MD Jun 01, 2016 08:47
[2016-06-01] MEDS ORDERED: ASPIRIN 81 MG CHEW TAB TUBE SCH (09:00)
[2016-06-01] MEDS: INSULIN NovoLIN REGULAR SUPPLEMENTAL SCALE SQ SCH ×3 (09:00→21:00)
[2016-06-01 09:12] LABS: BANDS 1 % (0-6); MYELOCYTES 2 % (0-0); NEUTROPHIL # MANUAL DIFF 2.8 TH/MM3 (1.8-7.7); PLATELET ESTIMATE SMEAR LOW (NORMAL); POLYS (SEG NEUTROPHILS) 74 % (16-70); SCAN/DIFF FINAL DIFF MANUAL; WBC DIFF SAMPLE 100
[2016-06-01 09:13] LABS: OVALOCYTES 1+ (NORMAL); PLATELET MORPHOLOGY ENLARGED (NORMAL)
--- NOTE | 2016-06-01 10:53 | HHI.NPPN ---
Subjective General Problems: Anemia Renal Failure: Chronic, End Stage Renal Disease Interval History He remains intubated, he is on Precedex drip, unresponsive to stimuli. Dialyzed yesterday without complication. (Temitope Haley) Review of Systems General General Remarks unable to evaluate due to intubation/sedation (Temitope Haley) Objective Data Data 05/31/16 06/01/16 19:00 07:00 Intake Total 639 ml 965 ml Output Total 0 ml Balance 639 ml 965 ml Intake IV Total 288 ml 459 ml Tube Feeding 261 ml 476 ml Other 90 ml 30 ml Output Urine Total 0 ml # Bowel Movements 1 Vital Signs Date Time Temp Pulse Resp B/P Pulse Ox O2 Delivery O2 Flow Rate FiO2 06/01/16 10:00 71 06/01/16 08:55 100 35 06/01/16 08:00 96.3 69 12 135/77 100 06/01/16 08:00 35 06/01/16 08:00 69 06/01/16 06:00 68 06/01/16 04:15 100 35 06/01/16 04:00 68 06/01/16 04:00 97.8 68 12 125/67 100 06/01/16 04:00 35 06/01/16 02:00 69 06/01/16 01:35 100 35 06/01/16 00:00 71 06/01/16 00:00 97.8 71 12 118/66 100 06/01/16 00:00 35 05/31/16 22:10 100 35 05/31/16 22:00 72 05/31/16 21:32 100 35 05/31/16 20:00 97.5 79 114/61 100 05/31/16 20:00 79 05/31/16 20:00 35 05/31/16 18:00 80 05/31/16 16:56 100 35 05/31/16 16:00 35 05/31/16 16:00 97.8 76 16 103/58 100 05/31/16 16:00 76 05/31/16 14:00 84 05/31/16 13:50 100 35 05/31/16 12:00 83 05/31/16 12:00 35 05/31/16 12:00 98.1 83 14 119/60 100 05/31/16 11:15 100 35 (Temitope Haley) -: 06/01/16 0322 06/01/16 0322 Imaging Last 48 hours Impressions Chest X-Ray 06/01/16 0000 Signed Impressions: Service Date/Time: Wednesday, June 01, 2016 04:53 - CONCLUSION: 1. Small right pleural effusion stable. 2. Minimal left retrocardiac density. Ozzie Jerez MD Tubes & Lines Comment ETT, OG tube Drip Comment Precedex (Temitope Haley) Physical Exam General Appearance: Well Developed, No Acute Distress (Temitope Haley) Eyes Eye Exam: Pupils Equal, Pupils Reactive (Temitope Haley) Neck Neck Exam: Neck Supple (Temitope Haley) Pulmonary Resp Exam: Clear Bilaterally, Breath Sounds Equal (Temitope Haley) Cardiology CV Exam: Regular, Normal Sinus Rhythm (Temitope Haley) Gastrointestinal/Abdomen GI Exam: Soft, Non-Tender, Non-Distended (Temitope Haley) Genitourinary Exam: Clear Urine (Temitope Haley) Musculoskeletal MS Exam: Joints Intact, Normal Tone (Temitope Haley) Integumentary Skin Exam: Clear, Warm, Dry, Intact (Temitope Haley) Extremeties Extremities Exam: No Edema, Pedal Pulses Palpable (Temitope Haley) Neurologic Neuro Exam: Unresponsive, Sedated (Temitope Haley) Assessment/Plan Discussed Condition With: Patient, Relative Assessment Summary: Anemia of CKD, Hypertension, End Stage Renal Disease Electrolyte Assessment: Hypocalcemia Problem List: (1) ESRD on dialysis Plan: Dialysis , he is due today Potassium remains acceptable, no evidence of fluid overload Has AVF left arm, monitor function Renal panel in am Continue Calcium acetate through feeding tube for metabolic bone disease No Epogen required (2) Hypertension Plan: BP is acceptable. He is on metoprolol, hydralazine, clonidine (3) DM (diabetes mellitus) Plan: continue insulin coverage goal to maintain blood glucose between 140 and 180 (4) Hyperkalemia Plan: corrected with dialysis, monitor for recurrence (5) NSTEMI (non-ST elevated myocardial infarction) Plan: Troponin I elevated post cardiac arrest, chest compressions. he had catheterization in January 2016, normal coronary arteries (6) Elevated LFTs Plan: Liver US ordered and pending (7) Cocaine abuse (Temitope Haley) Plan patient was seen and examined. We will continue dialysis 3 times/week. Discussed with his girlfriend. Patient remains unresponsive. (Chetan Francisco MD) Temitope Haley Jun 01, 2016 10:52 Chetan Francisco MD Jun 02, 2016 08:12
[2016-06-01] MEDS: LORazepam 2 MG/ML VIAL IV PUSH PRN (12:17)
[2016-06-01] MEDS: SODIUM CHLOR 0.9% 1000 ML INJ 1,000 ML IV PRN (12:45)
[2016-06-01] MEDS: GELATIN 12 MM/7 MM FOAM TOP PRN (12:46)
[2016-06-01] MEDS: AZITHROMYCIN INJ 500 MG in SODIUM CHLOR 0.9% 250 ML INJ 250 ML IV SCH (16:27)
--- NOTE | 2016-06-01 17:42 | RADRPT ---
EXAM DATE/TIME: 06/01/2016 15:38 [facility] COMPARISON: US ABDOMEN - LIVER, September 23, 2015, 15:26. INDICATIONS : Increased lab values. MEDICAL HISTORY : Congestive heart failure. Hypercholesterolemia. Hypertension. Cerebrovascular accident. Myocardial in farction. Coronary artery disease. End stage renal disease. Diabetes. Dialysis. Hepatitis C. Post tra umatic stress disorder. Anxiety. MDRO. MRSA. SURGICAL HISTORY : Scrotal surgery. Finger fracture repair. AV shunt. ENCOUNTER: Initial ACUITY: 1 day PAIN SCORE: Nonresponsive. LOCATION: Abdomen. MEASUREMENTS: LIVER: 15.9 cm length COMMON DUCT: 4 mm RIGHT KIDNEY: 6.3 x 3.2 x 2.6 cm SPLEEN: 12.0 cm length FINDINGS: Bilateral pleural effusions are noted. There is some ascites adjacent to the liver and within Morison 's pouch. The liver is normal in size and echogenicity. No focal hepatic mass is noted. No biliary ductal dilatation is noted. The common bile duct is normal in caliber. The wall of the gallbladder is mildly thickened and minimal pericholecystic fluid is noted. If there is clinical concern for acu te cholecystitis a hepatobiliary scan may be helpful to rule out cystic duct obstruction. No gallsto blanca are identified. No sonographic Castillo's sign is noted. The visualized portions of the pancreas demonstrate no mass or focal abnormality. There is minimal prominence of the pancreatic duct. The ri ght kidney is echogenic and atrophic. No hydronephrosis or solid renal mass is noted on the right. T he spleen is top normal in size. CONCLUSION: 1. Bilateral pleural effusions. 2. Thick-walled gallbladder with minimal pericholecystic fluid. If there is clinical concern for acu te cholecystitis a hepatobiliary scan may be helpful to confirm cystic duct obstruction. 3. Minimal ascites. 4. Echogenic atrophic right kidney. 5. Mild nonspecific prominence of the main pancreatic duct. Enzo Price MD on June 01, 2016 at 17:29 Board Certified Radiologist. This report was verified electronically.
--- NOTE | 2016-06-01 19:21 | HHI.PR ---
Subjective Subjective Comments No change reported eeg shows encephalopathy appearance, likely continue supportive care i will out of town and if needed, one of my partners will reasses Active Medications Current Medications Medications (Trade) Dose Ordered Sig/Crispin Route Start Time Stop Time Status Last Admin IV Flush 2 ml 2 ml UNSCH PRN IVF 05/28/16 15:45 05/29/16 08:45 (Diprivan 1000 Mg/100ml Inj) 100 ml @ 0 mls/hr TITRATE IV 05/28/16 18:45 05/30/16 15:29 (Peridex 0.12% Liq) 15 ml BID@08,20 MT 05/29/16 08:00 06/01/16 08:19 (NS Flush) 2 ml UNSCH PRN IV FLUSH 05/28/16 20:45 05/29/16 08:46 (NS Flush) 2 ml BID IV FLUSH 05/28/16 21:00 06/01/16 08:19 (fentaNYL INJ) 50 mcg Q1H PRN IV PUSH 05/28/16 20:45 (Protonix Inj) 40 mg DAILY IV 05/29/16 09:00 06/01/16 08:18 (Zofran Inj) 4 mg Q6H PRN IV 05/28/16 20:45 (Colace) 100 mg BID PO 05/28/16 21:00 06/01/16 08:18 (Heparin Inj) 5,000 units Q8H SQ 05/28/16 22:00 06/01/16 14:22 Miscellaneous Information 1 Q361D XX 05/28/16 20:45 05/29/16 08:46 (Chlorhexidine 2% Cloth) 3 pack Taper DAILY@04 TOP 05/29/16 04:00 05/25/17 03:59 06/01/16 04:00 Chlorhexidine Gluconate 3 pack 3 pack UNSCH PRN TOP 05/28/16 20:45 Propofol 100 ml @ 0 mls/hr TITRATE IV 05/28/16 20:45 (NS 1000 ml Inj) 1,000 ml @ 0 mls/hr Q0M PRN IV 05/28/16 20:53 06/01/16 12:45 Heparin Sodium (Porcine) 8000 units 8,000 units UNSCH PRN IVF 05/28/16 21:00 Sodium Chloride 1,000 ml @ 200 mls/hr Q5H PRN IV 05/28/16 20:53 (NS 1000 ml Inj) 1,000 ml @ 0 mls/hr Q0M PRN IV 05/28/16 20:53 (Mannitol Inj) 12.5 gm UNSCH PRN IV 05/28/16 21:00 (Albumin 25% Inj) 25 gm UNSCH PRN IV 05/28/16 21:00 (NS Flush) 5 ml UNSCH PRN IVF 05/28/16 21:00 (Heparin Inj) UNSCH PRN .XX 05/28/16 21:00 05/30/16 13:08 (Gentamicin (Dialysis) Inj) 20 mg UNSCH PRN IV 05/28/16 21:00 (Zofran Inj) 4 mg UNSCH PRN IV 05/28/16 21:00 (Tylenol) 650 mg UNSCH PRN PO 05/28/16 21:00 (Benadryl) 25 mg UNSCH PRN PO 05/28/16 21:00 (Nitrostat Sl) 0.4 mg UNSCH PRN SL 05/28/16 21:00 (Catapres) 0.1 mg UNSCH PRN PO 05/28/16 21:00 (Gelfoam 12 Mm/7 Mm Top) 1 foam UNSCH PRN TOP 05/28/16 21:00 06/01/16 12:46 (Ecotrin Ec) 81 mg DAILY PO 05/29/16 09:00 06/01/16 08:18 Hydralazine HCl 25 mg 25 mg TID PO 05/29/16 09:00 06/01/16 17:19 Azithromycin 500 mg/Sodium Chloride 250 ml @ 250 mls/hr Q24H IV 05/29/16 16:00 06/01/16 16:27 (Zosyn 2.25 Gm Premix) 50 ml @ 100 mls/hr Q8H IV 05/29/16 01:00 06/01/16 16:27 (Catapres) 0.1 mg TID PO 05/29/16 09:00 06/01/16 17:19 Lorazepam 2 mg 2 mg Q4H PRN IV PUSH 05/29/16 18:00 06/01/16 12:17 (Precedex Inj) 50 ml @ 0 mls/hr TITRATE IV 05/31/16 09:45 06/01/16 18:10 (Lopressor) 25 mg Q6HR PO/NG 05/31/16 12:00 06/01/16 17:19 (Phoslo) 667 mg TID NG 05/31/16 13:00 06/01/16 17:19 (D50w (Vial) Inj) 25 ml UNSCH PRN IV PUSH 06/01/16 08:45 (Glucagon Inj) 1 mg UNSCH PRN OTHER 06/01/16 08:45 (NovoLIN R SUPPLEMENTAL SCALE) 1 Q6H SQ 06/01/16 09:00 Allergies Allergies Coded Allergies Ibuprofen (Verified Allergy, Severe, 09/22/15) Sulfa (Verified Allergy, Severe, Rash, 09/22/15) *MDRO Multi-Drug Resistant Organism (Verified Adverse Reaction, Unknown, ) Review of Systems All other ROS: ROS reviewed as documented in chart Exam I&O / VS 05/31/16 05/31/16 06/01/16 15:00 23:00 07:00 Intake Total 639 ml 627 ml 338 ml Output Total 0 ml 0 ml Balance 639 ml 627 ml 338 ml IV Total 288 ml 335 ml 124 ml Tube Feeding 261 ml 262 ml 214 ml Other 90 ml 30 ml Output Urine Total 0 ml 0 ml # Bowel Movements 0 1 Vital Signs Date Time Temp Pulse Resp B/P Pulse Ox O2 Delivery O2 Flow Rate FiO2 06/01/16 18:00 75 06/01/16 16:30 35 06/01/16 16:13 97 35 06/01/16 16:00 97.6 74 12 127/73 100 06/01/16 16:00 75 06/01/16 14:00 76 06/01/16 13:54 100 35 06/01/16 12:00 96.8 70 12 136/76 100 06/01/16 12:00 35 06/01/16 12:00 70 06/01/16 11:35 100 35 06/01/16 10:00 71 06/01/16 08:55 100 35 06/01/16 08:00 96.3 69 12 135/77 100 06/01/16 08:00 35 06/01/16 08:00 69 06/01/16 06:00 68 06/01/16 04:15 100 35 06/01/16 04:00 68 06/01/16 04:00 97.8 68 12 125/67 100 06/01/16 04:00 35 06/01/16 02:00 69 06/01/16 01:35 100 35 06/01/16 00:00 71 06/01/16 00:00 97.8 71 12 118/66 100 06/01/16 00:00 35 05/31/16 22:10 100 35 05/31/16 22:00 72 05/31/16 21:32 100 35 05/31/16 20:00 97.5 79 114/61 100 05/31/16 20:00 79 05/31/16 20:00 35 General: Alert and Oriented, No acute distress Eye: EOMI Respiratory: Non-labored respirations Cardiology: Normal rate Musculoskeletal: ROM Neurologic: Alert, No focal defects, CN II-XII intact, Normal DTR's Psychiatric: Cooperative, Appropriate mood & affect Objective Micro and Labs Laboratory Tests Test 06/01/16 03:22 White Blood Count 3.7 Red Blood Count 4.33 Hemoglobin 13.0 Hematocrit 40.2 Mean Corpuscular Volume 92.8 Mean Corpuscular Hemoglobin 30.1 Mean Corpuscular Hemoglobin 32.4 Concent Red Cell Distribution Width 14.4 Platelet Count 93 Mean Platelet Volume 11.3 Neutrophils (%) (Auto) 64.7 Lymphocytes (%) (Auto) 12.9 Monocytes (%) (Auto) 20.4 Eosinophils (%) (Auto) 1.5 Basophils (%) (Auto) 0.5 Neutrophils # (Auto) 2.4 Lymphocytes # (Auto) 0.5 Monocytes # (Auto) 0.8 Eosinophils # (Auto) 0.1 Basophils # (Auto) 0.0 CBC Comment AUTO DIFF Differential Total Cells 100 Counted Neutrophils % (Manual) 74 Band Neutrophils % 1 Lymphocytes % 10 Monocytes % 13 Neutrophils # (Manual) 2.8 Myelocytes 2 Differential Comment FINAL DIFF MANUAL Platelet Estimate LOW Platelet Morphology Comment ENLARGED Ovalocytes 1+ Sodium Level 143 Potassium Level 3.7 Chloride Level 99 Carbon Dioxide Level 28.7 Anion Gap 15 Blood Urea Nitrogen 59 Creatinine 9.11 Estimat Glomerular Filtration 7 Rate Random Glucose 121 Calcium Level 8.3 Total Bilirubin 1.0 Aspartate Amino Transf 148 (AST/SGOT) Alanine Aminotransferase 106 (ALT/SGPT) Alkaline Phosphatase 88 Total Protein 6.2 Albumin 2.1 Date/Time Procedure Status Source Growth 05/29/16 02:35 Gram Stain - Final Complete Sputum Endotracheal 05/29/16 02:35 Sputum Culture - Final Complete Beta Strep Not Group A 05/28/16 16:51 Influenza Types A,B Antigen (FLORES) - Final Complete Nasal Washing NEGATIVE FOR FLU A AND B ANTIGEN.... 05/28/16 16:45 Aerobic Blood Culture - Preliminary Resulted Blood Line Pleomorphic Gram Positive Rods 05/28/16 16:45 Anaerobic Blood Culture - Preliminary Resulted Blood Line NO GROWTH IN 4 DAYS Ab Wilks MD Jun 01, 2016 19:21
[2016-06-02] VITALS (18 sets, daily range): BP systolic 109–129; BP diastolic 61–73; PULSE 64–79; RESP 11–13; TEMP 96.9–98.3; O2SAT 99–100
[2016-06-02] MEDS: INSULIN NovoLIN REGULAR SUPPLEMENTAL SCALE SQ SCH ×4 (03:00→21:00)
[2016-06-02] MEDS: DEXMEDETOMIDINE INJ 50 ML IV SCH (03:38)
[2016-06-02] MEDS: CHLORHEXIDINE GLUCONATE 2 % 1 PACK (2 CLOTHS) TOP SCH (03:38)
[2016-06-02 04:52] LABS: HEMATOCRIT 40.4 % (39.0-51.0); MEAN CELL VOLUME 91.7 FL (80.0-100.0); MEAN CORPUSCULAR HEMOGLOBIN 30.5 PG (27.0-34.0); MEAN CORPUSCULAR HGB CONC 33.2 % (32.0-36.0); PLATELET COUNT 99 TH/MM3 (150-450); RED CELL DISTRIBUTION WIDTH 14.8 % (11.6-17.2); WHITE BLOOD COUNT 3.3 TH/MM3 (4.0-11.0)
[2016-06-02 04:59] LABS: HEMO FLAGS AUTO DIFF
[2016-06-02 05:20] LABS: ALKALINE PHOSPHATASE 77 U/L (45-117); ALT (GPT) 91 U/L (12-78); ANION GAP 10 MEQ/L (5-15); AST (GOT) 118 U/L (15-37); BICARBONATE 30.5 MEQ/L (21.0-32.0); BLOOD UREA NITROGEN 42 MG/DL (7-18); CHLORIDE 100 MEQ/L (98-107); GLOMERULAR FILTRATION RATE 10 ML/MIN (>89); POTASSIUM 3.7 MEQ/L (3.5-5.1); SODIUM (NA) 140 MEQ/L (136-145); TOTAL BILIRUBIN ADULT 0.9 MG/DL (0.2-1.0)
[2016-06-02] MEDS: HEPARIN SODIUM - SQ 10,000 UNITS/ML VIAL SQ SCH ×3 (05:30→21:21)
[2016-06-02] MEDS: METOPROLOL TARTRATE 25 MG TAB PO/NG SCH ×3 (05:30→17:05)
[2016-06-02 05:36] LABS: BASOPHILS 1 % (0-2); CORRECTED NUCLEATED RBC 1 /100 WBC (0-0); EOSINOPHILS 3 % (0-4); NEUTROPHIL # MANUAL DIFF 1.7 TH/MM3 (1.8-7.7); POLYS (SEG NEUTROPHILS) 50 % (16-70); WBC DIFF SAMPLE 100
[2016-06-02 05:37] LABS: OVALOCYTES 1+ (NORMAL); PLATELET ESTIMATE SMEAR LOW (NORMAL); PLATELET MORPHOLOGY NORMAL (NORMAL); SCAN/DIFF FINAL DIFF MANUAL
--- NOTE | 2016-06-02 07:22 | HHI.CCPN ---
Subjective Remarks/Hospital Course 05/28: 60 yo AAM with PMH of HTN, stroke without residual deficit, DM, nonischemic cardiomyopathy (EF 40% and stage I diastolic dysfunction) Cocaine abuse, Hepatitis C, ESRD on HD T/R/Sat who presents to [facility] ED for 2 day history of SOB. He reported symptoms started 1 after he received hemodialysis. He reported a nonproductive cough without fevers, chills, or chest pain. His workup revealed a normal white count and CXR that demonstrated RLL consolidation. His potassium was 6.8. While preparations were being made to administer medications to address his hyperkalemia he developed bradycardia and PEA arrest. He underwent CPR and received epinephrine and 1 amp of bicarbonate. It was return of spontaneous circulation after 8 minutes. He was intubated by the emergency department physician Dr. Clancy. Dr. Francisco with nephrology was consulted and he made arrangements for urgent dialysis which is taking place currently. Target removal 3.8 L per HD RN. Postintubation CXR demonstrates R base infiltrate but also appears there is right pleural effusion. Influenza screen negative. Receive Zosyn and azithromycin in the emergency department. 05/29: Sedated, arousable, not following commands, orally intubated on mechanical ventilation. Gets agitated on lightening sedation and has a strong gag reflex. 05/30: Sedated, arousable, not following commands. Remains orally intubated on mechanical ventilation. Failed C Pap trial today. Dialyzed earlier. 05/31: Sedated/encephalopathic on lightening sedation, not following commands. Remains orally intubated on mechanical ventilation. Failed C Pap trials yesterday. 2-D echo just being completed today. 06/01 No events overnight. On Precedex drip unresponsive and doesn't follow commands. Afebrile. 06/02 Patient s/p HD yesterday with removal 1.5L , on Precedex infusion for sedation. Objective Vital Signs Date Time Temp Pulse Resp B/P Pulse Ox O2 Delivery O2 Flow Rate FiO2 06/02/16 06:00 75 06/02/16 04:21 100 35 06/02/16 04:00 98.0 12 128/71 Intake and Output 06/01/16 06/01/16 06/02/16 08:00 16:00 00:00 Intake Total 338 ml 267 ml 507 ml Output Total 0 ml 1500 ml Balance 338 ml -1233 ml 507 ml Result Diagram: 06/02/16 0400 06/02/16 0400 Other Results Laboratory Tests Test 06/02/16 04:00 White Blood Count 3.3 TH/MM3 Red Blood Count 4.40 MIL/MM3 Hemoglobin 13.4 GM/DL Hematocrit 40.4 % Mean Corpuscular Volume 91.7 FL Mean Corpuscular Hemoglobin 30.5 PG Mean Corpuscular Hemoglobin 33.2 % Concent Red Cell Distribution Width 14.8 % Platelet Count 99 TH/MM3 Mean Platelet Volume 11.9 FL Neutrophils (%) (Auto) % Lymphocytes (%) (Auto) % Monocytes (%) (Auto) % Eosinophils (%) (Auto) % Basophils (%) (Auto) % Neutrophils # (Auto) TH/MM3 Lymphocytes # (Auto) TH/MM3 Monocytes # (Auto) TH/MM3 Eosinophils # (Auto) TH/MM3 Basophils # (Auto) TH/MM3 CBC Comment AUTO DIFF Differential Total Cells 100 Counted Neutrophils % (Manual) 50 % Lymphocytes % 30 % Monocytes % 16 % Eosinophils % 3 % Basophils % 1 % Neutrophils # (Manual) 1.7 TH/MM3 Nucleated Red Blood Cells 1 /100 WBC Differential Comment FINAL DIFF MANUAL Platelet Estimate LOW Platelet Morphology Comment NORMAL Ovalocytes 1+ Sodium Level 140 MEQ/L Potassium Level 3.7 MEQ/L Chloride Level 100 MEQ/L Carbon Dioxide Level 30.5 MEQ/L Anion Gap 10 MEQ/L Blood Urea Nitrogen 42 MG/DL Creatinine 6.95 MG/DL Estimat Glomerular Filtration 10 ML/MIN Rate Random Glucose 147 MG/DL Calcium Level 8.5 MG/DL Total Bilirubin 0.9 MG/DL Aspartate Amino Transf 118 U/L (AST/SGOT) Alanine Aminotransferase 91 U/L (ALT/SGPT) Alkaline Phosphatase 77 U/L Total Protein 6.4 GM/DL Albumin 2.0 GM/DL Imaging Last Impressions Liver Ultrasound 06/01/16 0000 Signed Impressions: Service Date/Time: Wednesday, June 01, 2016 15:38 - CONCLUSION: 1. Bilateral pleural effusions. 2. Thick-walled gallbladder with minimal pericholecystic fluid. If there is clinical concern for acute cholecystitis a hepatobiliary scan may be helpful to confirm cystic duct obstruction. 3. Minimal ascites. 4. Echogenic atrophic right kidney. 5. Mild nonspecific prominence of the main pancreatic duct. Enzo Price MD Chest X-Ray 06/01/16 0000 Signed Impressions: Service Date/Time: Wednesday, June 01, 2016 04:53 - CONCLUSION: 1. Small right pleural effusion stable. 2. Minimal left retrocardiac density. Ozzie Jerez MD Head CT 05/29/16 0000 Signed Impressions: Service Date/Time: Sunday, May 29, 2016 03:03 - CONCLUSION: Age- appropriate atrophy, stable from prior in September 2015. No acute findings. Earnest Torre MD Lower Extremity Ultrasound 05/28/16 0000 Signed Impressions: Service Date/Time: Saturday, May 28, 2016 22:27 - CONCLUSION: Negative for deep venous thrombosis bilateral lower extremity. Earnest Torre MD Objective Remarks GENERAL: Patient is 60 yo intubated and sedated. SKIN: Warm and dry. HEAD: Normocephalic. EYES: No scleral icterus. No injection or drainage. NECK: Supple, trachea midline. No JVD or lymphadenopathy. CARDIOVASCULAR: Regular rate and rhythm without murmurs, gallops, or rubs. RESPIRATORY: Breath sounds equal bilaterally. No accessory muscle use. GASTROINTESTINAL: Abdomen soft, non-tender, nondistended. MUSCULOSKELETAL: No cyanosis, or edema. Neuro: Intubated, unresponsive. A/P Assessment and Plan NEURO: Acute encephalopathy, post cardiac arrest. History of stroke without residual deficit (per friend's report) History of cocaine abuse On Precedex infusion for sedation. Daily sedation vacation, Switch to Fentanyl drip if needed. RASS -2. EEG showed mod. slowing, possible focus for epileptic activity Neuro is following-Dr. Wilks RESP: Acute respiratory failure Healthcare associated pneumonia Intubated in ED 05/28/16 following cardiac arrest Duoneb q6 hours. Albuterol 2 prn. Ventilator Bundle. Daily SBT as leana Abx as per below CV: Cardiac arrest, secondary to hyperkalemia Nonischemic cardiomyopathy secondary to HTN, cocaine abuse Hypertension Elevated Troponin: ? NSTEMI Monitor HR and BP keep MAP>65mmHg Continue home meds: Hydralazine 25 tid. Clonidine 0.1 tid., Lopressor 25mg Q6 ASA 81 mg daily. Mild troponin elevation in setting of ESRD. Echo 05/31: EF 25-30%, no RWMA cardiac cath 12/09/2012 - EF 40%, normal coronaries. Elevated troponin, cardiac arrest cardiology is following-no intervention planned. GI: Hepatitis C Elevated LFT Continue TF-Nepro@30ml/hr Monitor LFT's: Trending down US liver: Bilateral pleural effusions. Thick-walled gallbladder with minimal pericholecystic fluid. Minimal ascites. Echogenic atrophic right kidney. Mild nonspecific prominence of the main pancreatic duct. FEN/RENAL: ESRD Acute severe hyperkalemia Intermittent hemodialysis per nephrology (Dr. Francisco) Emergent HD 05/28 due to potassium of 6.8 with bradycardia and cardiac arrest Monitor renal function, I/O's, avoid nephrotoxins. s/p HD yesterday 1.5L removed. ID: Acute healthcare associated pneumonia Received Zosyn and azithromycin in the emergency department 05/28. On Zosyn 2.25 g IV every 8 hours dosed for pneumonia/ESRD. Azithromycin 500 mg IV daily. 05/29 Sputum cx: nl jorge l, 05/28 nasal washing negative for Influenza. HEME: Monitor CBC ENDO: Diabetes mellitus Medium dose Insulin sliding scale with bedside glucose every 6 hours PROPH: Heparin subcutaneous for DVT prophylaxis. Protonix 40 mg IV daily for stress ulcer prophylaxis. Doppler US LE negative for DVT ACCESS: Peripheral IV providing adequate access at this time. Left AV fistula accessed for hemodialysis Full code Discussed with [employer] TECHNICIAN. Palliative care consulted to asses with goals of care Critical care time 30 minutes exclusive of separately billable procedures. Deloris Campuzano MD Jun 02, 2016 07:22
[2016-06-02] MEDS: cloNIDine HCL 0.1 MG TAB PO SCH ×3 (08:29→17:05)
[2016-06-02] MEDS: DOCUSATE SODIUM 100 MG CAP PO SCH ×2 (08:29→21:22)
[2016-06-02] MEDS: ASPIRIN EC 81 MG TABEC PO SCH (08:29)
[2016-06-02] MEDS: CALCIUM ACETATE 667 MG CAP NG SCH ×3 (08:29→17:05)
[2016-06-02] MEDS: hydrALAZINE HCL 25 MG TAB PO SCH ×3 (08:29→17:06)
[2016-06-02] MEDS: fentaNYL DRIP 250 ML IV SCH (08:30)
[2016-06-02] MEDS: SODIUM CHLORIDE 0.9% FLUSH 5 ML FLUSH IV FLUSH SCH ×2 (08:30→21:00)
[2016-06-02] MEDS: LORazepam 2 MG/ML VIAL IV PUSH PRN (08:30)
[2016-06-02] MEDS: PIPERACIL-TAZO 2.25 GM PREMIX 50 ML IV SCH ×2 (08:30→17:05)
[2016-06-02] MEDS: PANTOPRAZOLE SODIUM 40 MG VIAL IV SCH (08:30)
[2016-06-02] MEDS: CHLORHEXIDINE 0.12% (ORAL KIT) 15 ML CUP MT SCH ×2 (08:31→21:22)
[2016-06-02] MEDS: SODIUM CHLOR 0.9% 1000 ML INJ 1,000 ML IV PRN (09:53)
[2016-06-02] MEDS: GELATIN 12 MM/7 MM FOAM TOP PRN (09:54)
--- NOTE | 2016-06-02 10:46 | PD.CONS ---
Consult Service Palliative Care Consult Requested By Dr. Campuzano Primary Care Physician [facility] Reason for Consultation a. To assist with evaluation and management of symptoms including: dyspnea, encephalopathy b. To assist medical decision maker(s) with: better understanding of current medical conditions; weighing benefits/burdens of medical treatment options; making medical treatment decisions. HPI History of Present Illness 60-year-old male presented to the ED on 05/28/16, with complaints of shortness of breath 2 days. Reported onset following his most recent dialysis occurring 05/26. Reported nonproductive cough and one episode so it of posttussive emesis. Denied fever, chills, cold or flu symptoms, chest pain, abdominal pain. [ Patient with known history of hypertension, CVA without residual deficits, diabetes, nonischemic cardiomyopathyEF 40%, history of cocaine abuse, hepatitis C, end-stage renal disease on HD] * ED course: Patient noted to be tachypneic with O2 sats 97% on 2 L. Breath sounds were clear to auscultation. Blood glucose within normal limits. EKG= sinus rhythm. Labs obtained, IV initiated. CXR= right lower lung infiltrate, compensated cardiomegaly. BNP> 5000. Troponin 0.21, CK-MB 4.3. Initiated on Zosyn, azithromycin. Hyperkalemia potassium 6.8, ordered for Kayexalate, calcium, dextrose and insulin. (Patient was due for dialysis day of presentation). During the ED course patient became unresponsive and required resuscitation-- Noted to be bradycardic into the 30s and then unresponsive with PA arrest likely secondary to hyperkalemia. CPR done approximately 8 minutes before ROSC. During the course patient was intubated and on mechanical vent. Significant other at the bedside reported patient had similar event a few years prior. Dialysis initiated in the ED. Patient admitted to ICU for further evaluation and management . Restaurant Host, nephrology following. * Postintubation CXR demonstrates R base infiltrate ,right pleural effusion. * Cardiology was consulted; notes patient with history of significant hyperkalemia, long history of drug use, hypertensive cardiomyopathy no evidence for acute ischemic event elevated troponin nonspecific and could be type II non- ST elevation [place] along with renal dysfunction. Condition would not explore further invasive cardiac workup. Recommends continued supportive care, defer to critical care further evaluation for PE though low likelihood. Optimize electrolytes. * 05/30sedated on mechanical vent. Not following commands. Not tolerating CPAP trials. Continues to receive dialysis. * Neurology consulted for encephalopathy. Notes metabolic encephalopathy continue supportive treatment, EEG pending. Consider MRI later during course pending progression. * 06/01still encephalopathic when sedation lightened (On precedex drip) not tolerating CPAP trials. Requiring Precedex drips. Palliative care consulted to assist with clarification of goals of treatment. 2-D echo has been done= EF 2530 percent, wall motion normal. Tricuspid regurg, mild tricuspid regurg. EEG= encephalopathy. Neurology recommends continue supportive course. As seen in room no visitors present. Dialysis is taking place during my exam. Patient is initially lethargic, on sedation however to touch and verbal stimuli he does become somewhat more responsive opens eyes though does not track. Becomes restless thrashes extremities around the does not appear to be purposeful. Currently sedated on fentanyl 50 mics/hour. Precedex was discontinued yesterday per nursing. Following exam call significant other Neema, she will be coming in a little later this morning to see patient plan to meet with her when she does. Nursing to notify me when she arrives. *Of note, patient known to palliative from prior admission in palliative consultation 07/03/13. During that admission he was noted to have at least 8 hospitalizations over the course of one year. He was noted to have a history of being homeless, had been living with his significant other Neema. She reported one son, one daughter names and location unknown though possibly in the [place] area. During that admission he also suffered PEA arrest with successful ROSC after CPR. Function/Cognitive Trajectory lived independently w sig other Neema prior to admission. Formerly rode his bike to dialysis though most recently utilized an electric scooter. independent w ADLS per sig other. 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 Past Surgical History Scrotal surgery ORIF left fifth digit secondary to fracture-surgery [place] 2012 Left upper extremity fistula 09/14/12 (Dr. Callejas) . Reported Medications Metoprolol 100 mg by mouth twice a day Clonidine 0.1 mill grams by mouth 3 times a day Hydralazine 25 g by mouth 3 times a day Novolin R Aspirin 81 mill grams by mouth daily PhosLo 2000 mill grams by mouth 3 times a day . Current Medications Medications (Trade) Dose Ordered Sig/Crispin Route Start Time Stop Time Status Last Admin IV Flush 2 ml 2 ml UNSCH PRN IVF 05/28/16 15:45 05/29/16 08:45 (Diprivan 1000 Mg/100ml Inj) 100 ml @ 0 mls/hr TITRATE IV 05/28/16 18:45 05/30/16 15:29 (Peridex 0.12% Liq) 15 ml BID@08,20 MT 05/29/16 08:00 06/02/16 08:31 (NS Flush) 2 ml UNSCH PRN IV FLUSH 05/28/16 20:45 05/29/16 08:46 (NS Flush) 2 ml BID IV FLUSH 05/28/16 21:00 06/02/16 08:30 (fentaNYL INJ) 50 mcg Q1H PRN IV PUSH 05/28/16 20:45 (Protonix Inj) 40 mg DAILY IV 05/29/16 09:00 06/02/16 08:30 (Zofran Inj) 4 mg Q6H PRN IV 05/28/16 20:45 (Colace) 100 mg BID PO 05/28/16 21:00 06/01/16 21:28 (Heparin Inj) 5,000 units Q8H SQ 05/28/16 22:00 06/02/16 05:30 Miscellaneous Information 1 Q361D XX 05/28/16 20:45 05/29/16 08:46 (Chlorhexidine 2% Cloth) 3 pack Taper DAILY@04 TOP 05/29/16 04:00 05/25/17 03:59 06/02/16 03:38 Chlorhexidine Gluconate 3 pack 3 pack UNSCH PRN TOP 05/28/16 20:45 Propofol 100 ml @ 0 mls/hr TITRATE IV 05/28/16 20:45 (NS 1000 ml Inj) 1,000 ml @ 0 mls/hr Q0M PRN IV 05/28/16 20:53 06/01/16 12:45 Heparin Sodium (Porcine) 8000 units 8,000 units UNSCH PRN IVF 05/28/16 21:00 Sodium Chloride 1,000 ml @ 200 mls/hr Q5H PRN IV 05/28/16 20:53 06/02/16 09:53 (NS 1000 ml Inj) 1,000 ml @ 0 mls/hr Q0M PRN IV 05/28/16 20:53 (Mannitol Inj) 12.5 gm UNSCH PRN IV 05/28/16 21:00 (Albumin 25% Inj) 25 gm UNSCH PRN IV 05/28/16 21:00 (NS Flush) 5 ml UNSCH PRN IVF 05/28/16 21:00 (Heparin Inj) UNSCH PRN .XX 05/28/16 21:00 05/30/16 13:08 (Gentamicin (Dialysis) Inj) 20 mg UNSCH PRN IV 05/28/16 21:00 (Zofran Inj) 4 mg UNSCH PRN IV 05/28/16 21:00 (Tylenol) 650 mg UNSCH PRN PO 05/28/16 21:00 (Benadryl) 25 mg UNSCH PRN PO 05/28/16 21:00 (Nitrostat Sl) 0.4 mg UNSCH PRN SL 05/28/16 21:00 (Catapres) 0.1 mg UNSCH PRN PO 05/28/16 21:00 (Gelfoam 12 Mm/7 Mm Top) 1 foam UNSCH PRN TOP 05/28/16 21:00 06/02/16 09:54 (Ecotrin Ec) 81 mg DAILY PO 05/29/16 09:00 06/01/16 08:18 Hydralazine HCl 25 mg 25 mg TID PO 05/29/16 09:00 06/01/16 17:19 Azithromycin 500 mg/Sodium Chloride 250 ml @ 250 mls/hr Q24H IV 05/29/16 16:00 06/01/16 16:27 (Zosyn 2.25 Gm Premix) 50 ml @ 100 mls/hr Q8H IV 05/29/16 01:00 06/02/16 08:30 (Catapres) 0.1 mg TID PO 05/29/16 09:00 06/01/16 17:19 (Ativan Inj) 2 mg Q4H PRN IV PUSH 05/29/16 18:00 06/02/16 08:30 (Lopressor) 25 mg Q6HR PO/NG 05/31/16 12:00 06/02/16 05:30 (Phoslo) 667 mg TID NG 05/31/16 13:00 06/01/16 17:19 (D50w (Vial) Inj) 25 ml UNSCH PRN IV PUSH 06/01/16 08:45 (Glucagon Inj) 1 mg UNSCH PRN OTHER 06/01/16 08:45 Insulin Human Regular 1 1 Q6H SQ 06/01/16 09:00 (fentaNYL DRIP) 250 ml @ 0 mls/hr TITRATE IV 06/02/16 07:30 06/02/16 08:30 Family History Per prior H&P is both parents mother of end-stage renal disease Substance Use Tobacco: Per EMR history of smoker, a few cigarettes a day Alcohol: No reported history of per EMR Prescription med abuse: None reported per history EMR Illicits: hx of cocaine abuse with multiple prior urine drug screen positive in 2013, 2015 Psychosocial History Per prior H&P by palliative 2014 (obtained from significant other Neema) patient born in [place] moves to [place] sometime in 2012 or . Parents are , patient has no siblings. He did serve in the though branch not known. He did have some connection with the [facility]. Disabled and not working for many years. 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 Has lived with significant other Neema Johnston for many years. Never reported to be . Has 1 son, 1 daughter who may live in the [place] area. Spiritual/Cultural Factors member of [employer]. Welcomes wireless retail manager support. Living Will: Never completed Health Care Surrogate: Never completed Durable Power of Strategic Marketing Leader: Never completed Ethical and Legal Issues Patient currently unable to participate in decision-making due to clinical condition. Not clear if he will regain ability to participate, status post PEA arrest. Patient reported to have 2 adult children, never . Per [place] statutes these 2 adult children would be appropriate legal decision makers. He has a significant other of many years who has previously served as a proxy during hospital course as children were not able to be located during previous attempts. Would again attempt to locate any possible family members as the last attempt I'm aware of occurred in 2013, if unable to locate children then would proceed with significant other artery as healthcare proxy. Physical Exam Vital Signs Date Time Temp Pulse Resp B/P Pulse Ox O2 Delivery O2 Flow Rate FiO2 06/02/16 09:07 100 35 06/02/16 08:00 35 06/02/16 08:00 71 06/02/16 08:00 96.9 74 12 126/73 100 06/02/16 06:00 75 06/02/16 04:21 100 35 06/02/16 04:00 35 06/02/16 04:00 72 06/02/16 04:00 98.0 72 12 128/71 100 06/02/16 02:00 70 06/02/16 01:20 100 35 06/02/16 00:00 97.8 68 13 129/66 100 06/02/16 00:00 35 06/02/16 00:00 68 06/01/16 23:18 100 35 06/01/16 22:00 68 06/01/16 21:02 100 35 06/01/16 20:00 69 06/01/16 20:00 35 06/01/16 20:00 96.8 69 12 126/72 100 06/01/16 18:00 75 06/01/16 16:30 35 06/01/16 16:13 97 35 06/01/16 16:00 97.6 74 12 127/73 100 06/01/16 16:00 75 06/01/16 14:00 76 06/01/16 13:54 100 35 06/01/16 12:00 96.8 70 12 136/76 100 06/01/16 12:00 35 06/01/16 12:00 70 06/01/16 11:35 100 35 06/01/16 06/02/16 19:00 07:00 Intake Total 267 ml 1035 ml Output Total 1500 ml Balance -1233 ml 1035 ml Intake Oral 0 ml IV Total 190 ml 645 ml Tube Feeding 77 ml 330 ml Other 60 ml Hemodialysis 1500 ml # Bowel Movements 1 Exam CONSTITUTIONAL/GENERAL: This is an adequately nourished patient, in no apparent distress. TUBES/LINES/DRAINS: PIV x 2 RUE, OGT, ETT, restraints BUE SKIN: No jaundice, rashes, or lesions. Skin temperature warm HEAD: Atraumatic. Normocephalic. EYES: Pupils 2mm/?reaction. No scleral icterus. No injection or drainage. Fundi not examined. ENT: Nose without bleeding or purulent drainage. unable to visualize oropharynx 2/2 ett NECK: Trachea midline. Supple, nontender. CARDIOVASCULAR: Regular rate and rhythm without murmurs. peripheral pulses symmetric.BP 90s systolic during my exam RESPIRATORY/CHEST: Symmetric, unlabored respirations via ETT to mech vent. Clear to auscultation. GASTROINTESTINAL: Abdomen soft, nondistended. No hepato-splenomegaly, or palpable masses. Bowel sounds present. TF infusing via OGT GENITOURINARY: Without palpable bladder distension. anuric MUSCULOSKELETAL: Extremities without clubbing, cyanosis, or edema. No joint tenderness or effusion noted. No calf tenderness. No mottling or clubbing. LYMPHATICS: No palpable cervical or supraclavicular adenopathy. NEUROLOGICAL: sedated on mech vent-- limited assessment. Opens eyes to touch stimuli however does not track examiner. Withdraws to pain stimuli on 4 extremities. Begins thrashing around and moving all 4 extremities however does not follow commands were clear to do so purposefully. Restraints 4. PSYCHIATRIC: Limited assessment due to clinical condition2 exam begins thrashing around and restless however when stimuli stopped he again becomes restful Diagnostic Tests Laboratory Laboratory Tests Test 05/31/16 06/01/16 06/02/16 10:55 03:22 04:00 White Blood Count 5.3 TH/MM3 3.7 TH/MM3 3.3 TH/MM3 (4.0-11.0) (4.0-11.0) (4.0-11.0) Red Blood Count 4.58 MIL/MM3 4.33 MIL/MM3 4.40 MIL/MM3 (4.50-5.90) (4.50-5.90) (4.50-5.90) Hemoglobin 14.0 GM/DL 13.0 GM/DL 13.4 GM/DL (13.0-17.0) (13.0-17.0) (13.0-17.0) Hematocrit 43.1 % 40.2 % 40.4 % (39.0-51.0) (39.0-51.0) (39.0-51.0) Mean Corpuscular Volume 94.1 FL 92.8 FL 91.7 FL (80.0-100.0) (80.0-100.0) (80.0-100.0) Mean Corpuscular Hemoglobin 30.5 PG 30.1 PG 30.5 PG (27.0-34.0) (27.0-34.0) (27.0-34.0) Mean Corpuscular Hemoglobin 32.5 % 32.4 % 33.2 % Concent (32.0-36.0) (32.0-36.0) (32.0-36.0) Red Cell Distribution Width 14.9 % 14.4 % 14.8 % (11.6-17.2) (11.6-17.2) (11.6-17.2) Platelet Count 103 TH/MM3 93 TH/MM3 99 TH/MM3 (150-450) (150-450) (150-450) Mean Platelet Volume 12.3 FL 11.3 FL 11.9 FL (7.0-11.0) (7.0-11.0) (7.0-11.0) Neutrophils (%) (Auto) 72.6 % 64.7 % % (16.0-70.0) (16.0-70.0) (16.0-70.0) Lymphocytes (%) (Auto) 9.3 % 12.9 % % (9.0-44.0) (9.0-44.0) (9.0-44.0) Monocytes (%) (Auto) 17.3 % 20.4 % % (0.0-8.0) (0.0-8.0) (0.0-8.0) Eosinophils (%) (Auto) 0.3 % (0.0-4.0) 1.5 % (0.0-4.0) % (0.0-4.0) Basophils (%) (Auto) 0.5 % (0.0-2.0) 0.5 % (0.0-2.0) % (0.0-2.0) Neutrophils # (Auto) 3.9 TH/MM3 2.4 TH/MM3 TH/MM3 (1.8-7.7) (1.8-7.7) (1.8-7.7) Lymphocytes # (Auto) 0.5 TH/MM3 0.5 TH/MM3 TH/MM3 (1.0-4.8) (1.0-4.8) (1.0-4.8) Monocytes # (Auto) 0.9 TH/MM3 0.8 TH/MM3 TH/MM3 (0-0.9) (0-0.9) (0-0.9) Eosinophils # (Auto) 0.0 TH/MM3 0.1 TH/MM3 TH/MM3 (0-0.4) (0-0.4) (0-0.4) Basophils # (Auto) 0.0 TH/MM3 0.0 TH/MM3 TH/MM3 (0-0.2) (0-0.2) (0-0.2) CBC Comment DIFF FINAL AUTO DIFF AUTO DIFF Differential Comment FINAL DIFF FINAL DIFF MANUAL MANUAL Sodium Level 140 MEQ/L 143 MEQ/L 140 MEQ/L (136-145) (136-145) (136-145) Potassium Level 5.3 MEQ/L 3.7 MEQ/L 3.7 MEQ/L (3.5-5.1) (3.5-5.1) (3.5-5.1) Chloride Level 99 MEQ/L 99 MEQ/L 100 MEQ/L (98-107) (98-107) (98-107) Carbon Dioxide Level 31.7 MEQ/L 28.7 MEQ/L 30.5 MEQ/L (21.0-32.0) (21.0-32.0) (21.0-32.0) Anion Gap 9 MEQ/L (5-15) 15 MEQ/L (5-15) 10 MEQ/L (5-15) Blood Urea Nitrogen 54 MG/DL (7-18) 59 MG/DL (7-18) 42 MG/DL (7-18) Creatinine 8.00 MG/DL 9.11 MG/DL 6.95 MG/DL (0.60-1.30) (0.60-1.30) (0.60-1.30) Estimat Glomerular Filtration 8 ML/MIN (>89) 7 ML/MIN (>89) 10 ML/MIN (>89) Rate Random Glucose 113 MG/DL 121 MG/DL 147 MG/DL (74-106) (74-106) (74-106) Calcium Level 8.3 MG/DL 8.3 MG/DL 8.5 MG/DL (8.5-10.1) (8.5-10.1) (8.5-10.1) Total Bilirubin 1.0 MG/DL 1.0 MG/DL 0.9 MG/DL (0.2-1.0) (0.2-1.0) (0.2-1.0) Aspartate Amino Transf 226 U/L (15-37) 148 U/L (15-37) 118 U/L (15-37) (AST/SGOT) Alanine Aminotransferase 138 U/L (12-78) 106 U/L (12-78) 91 U/L (12-78) (ALT/SGPT) Alkaline Phosphatase 78 U/L (45-117) 88 U/L (45-117) 77 U/L (45-117) Total Protein 6.6 GM/DL 6.2 GM/DL 6.4 GM/DL (6.4-8.2) (6.4-8.2) (6.4-8.2) Albumin 2.1 GM/DL 2.1 GM/DL 2.0 GM/DL (3.4-5.0) (3.4-5.0) (3.4-5.0) Differential Total Cells 100 100 Counted Neutrophils % (Manual) 74 % (16-70) 50 % (16-70) Band Neutrophils % 1 % (0-6) Lymphocytes % 10 % (9-44) 30 % (9-44) Monocytes % 13 % (0-8) 16 % (0-8) Neutrophils # (Manual) 2.8 TH/MM3 1.7 TH/MM3 (1.8-7.7) (1.8-7.7) Myelocytes 2 % (0-0) Platelet Estimate LOW (NORMAL) LOW (NORMAL) Platelet Morphology Comment ENLARGED NORMAL (NORMAL) (NORMAL) Ovalocytes 1+ (NORMAL) 1+ (NORMAL) Eosinophils % 3 % (0-4) Basophils % 1 % (0-2) Nucleated Red Blood Cells 1 /100 WBC (0-0) Result Diagram: 06/02/16 04006/02/16 0400 Patient/Family Conference Present at Family Conference: sig Neema Aguila's brother Family Conference Time (mins): 30 Family Conference Location: Bedside Issues Discussed: Met w/ sig chaitanya Bethea, and Neema's brother at bedside. Pt unable to participate. Discussion included: * Palliative care role, purpose, approach * Additional medical, psychosocial, and spiritual history * Patients general health, functional status, and cognitive changes in the months leading up to the current hospitalization * Patient/family understanding of the current medical problems * Patient/family understanding of prognosis * Patients goals of care as best understood from advance directives and/or conversations and/or values * Current medical treatment options and benefits/burdens of those options; review pt could req. trach/PEG if unable to wean. * LEGAL decision makers-- Neema willing to serve as Proxy. Pt has had no communication with his adult children since she has known him. * Code status- FULL CODE * Questions answered to the best of my ability * Palliative care contact information provided Neema seems to have very limited understanding and insight to conditions. When I initially asked what the drs had told her about her sig other's condition she stated "that he was fine and all his tests were perfect, normal". Much review of conditions, diagnostics, clinical course thus far, underlying conditions. Her brother seems to understand things a little better, seems to have a little better insight. Goals thus far are aggressive. They feel they have seen pt respond purposefully to their visit. They have seen him recover from many acute issues before, including PEA arrest, and believe he could again recover. Assessment and Plan Disease Oriented Problem List: (1) Metabolic encephalopathy (2) ESRD on hemodialysis (3) Shortness of breath (4) Diabetes (5) CHF (congestive heart failure) (6) Elevated troponin level (7) Hepatitis C (8) Hyperkalemia, diminished renal excretion (9) Cardiac arrest (10) Hyperkalemia (11) Hypertension (12) NSTEMI (non-ST elevated myocardial infarction) (13) Elevated LFTs (14) Non-ischemic cardiomyopathy Symptom Scale: (1) Encephalopathy (2) Anxiety (3) Dyspnea Pertinent Non-Medical Issues Psychosocial:Per prior H&P by palliative 2014 (obtained from significant other Neema) patient born in [place] moves to [place] sometime in 2012 or . Parents are , patient has no siblings. He did serve in the though branch not known. He did have some connection with the [facility]. Disabled and not working for many years. 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 Has lived with significant other Neema Johnston for many years. Never reported to be . Has 1 son, 1 daughter who may live in the [place] area. Spiritual:Per prior admissions:He attends [facility]. Welcomed wireless retail manager support. Legal:Patient currently unable to participate in decision-making due to clinical condition. Not clear if he will regain ability to participate, status post PEA arrest. Patient reported to have 2 adult children, never . Per [place] statutes these 2 adult children would be appropriate legal decision makers. He has a significant other of many years who has previously served as a proxy during hospital course as children were not able to be located during previous attempts. Would again attempt to locate any possible family members as the last attempt I'm aware of occurred in 2013, if unable to locate children then would proceed with significant other artery as healthcare proxy. [1.11.16-- requested case management assist with [employer] report to again attempt to locate possible children-- reported 1.12.16 no family located. ] Ethical issues impacting care: Important Contacts Neema Johnston significant other [phone] Prognosis This patient suffered PEA arrest during this admission likely secondary to hyperkalemia, end-stage renal disease on hemodialysis. He now remains on mechanical vent, encephalopathic. Condition is guarded. Possible he may wean and medically extubate however thus far not tolerating CPAP trials. May require tracheostomy and PEG for ongoing aggressive interventions. Appears likely he can survive current hospital course though he does remain at risk for complications/setbacks. Code Status: Full Code Plan * Legal decision maker: Patient currently unable to participate in decision- making due to clinical condition. Not clear if he will regain ability to participate, status post PEA arrest. Patient reported to have 2 adult children , never . Per [place] statutes these 2 adult children would be appropriate legal decision makers. He has a significant other of many years who has previously served as a proxy during hospital course as children were not able to be located during previous attempts. Would again attempt to locate any possible family members as the last attempt I'm aware of occurred in 2013, if unable to locate children then would proceed with significant other artery as healthcare proxy. * Goals: AGGRESSIVE. Met w sig other Neema and her brother. Neema seems to have very limited understanding and limited insight to conditions. When I initially asked what the drs had told her about her sig other's condition she stated "that he was fine and all his tests were perfect, normal". Much review of conditions, diagnostics, clinical course thus far, underlying conditions. Her brother seems to understand things a little better, seems to have a little better insight. Goals thus far are aggressive. They feel they have seen pt respond purposefully to their visit. They have seen him recover from many acute issues before, including PEA arrest, and believe he could again recover. * CODE STATUS: Full code * SYMPTOMS: --Encephalopathy-status post PEA arrest with ROSC after approximately 8 minutes of CPR.+ encephalopathy per EEG. Neurology following, continue supportive care. Patient with prior PEA arrest episode and ncephalopathy during prior admission 2013, eventually during hospital course had improvement in neurological status. --Dyspnea-emergently intubated for airway protection during PEA arrest; currently on mechanical vent not tolerating CPAP trials. May require tracheostomy/PEG if unable to wean, and if goals are aggressive. -Agitation/anxiety: Currently on mechanical vent, I be contributing, as well as encephalopathy 2/2 PEA arrest ; previously on Precedex drip, when sedation lightened not following but does become agitated--now on fentanyl drip with periods of agitation though for the most part comfortable on 50 mics/hour. We' ll continue to evaluate. * Palliative care will continue to follow during hospital course as condition evolves, to assist patient/decision-maker with understanding of medical conditions, weighing benefits/burdens of treatment options, for clarification of goals of treatment. Additionally will assist with any symptoms of palliative concern Time Spent Total Floor Time (mins): 65 Face to Face Time (mins): 35 >50% Counseling/Coord of Care: Yes (d/w critical care Dr Zepeda, RN) Thank you for the opportunity to participate in the care of Mr. Bloom. Attestation To help prompt me to consider important information that might be impacting today's encounter and assessment, information from prior notes written by myself or my colleagues may have been "brought forward" into today's note. My signature on this note, however, is an attestation that I personally performed the exam, history, and/or decision-making noted today, and, unless otherwise indicated, the interactions with patient, family, and staff as well as the review of records all occurred today. I also attest that the listed assessment and stated plan reflect my best clinical judgment today based on the combination of historical information, prior notes, and today's exam/ interactions. When time spent is documented, it refers only to time spent today by the signer, or if indicated, combined time spent today by collaborating physician/nurse practitioner. Blank Coronel Jun 02, 2016 10:46
--- NOTE | 2016-06-02 11:27 | HHI.NPPN ---
Subjective General Problems: Anemia Renal Failure: Chronic, End Stage Renal Disease Interval History Seen during dialysis. His sedation was changed, still unresponsive on vent. Agitated earlier. (Temitope Haley) Review of Systems General General Remarks unable to evaluate due to intubation/sedation (Temitope Haley) Objective Data Data 06/01/16 06/02/16 19:00 07:00 Intake Total 267 ml 1035 ml Output Total 1500 ml Balance -1233 ml 1035 ml Intake Oral 0 ml IV Total 190 ml 645 ml Tube Feeding 77 ml 330 ml Other 60 ml Hemodialysis 1500 ml # Bowel Movements 1 Vital Signs Date Time Temp Pulse Resp B/P Pulse Ox O2 Delivery O2 Flow Rate FiO2 06/02/16 10:00 72 06/02/16 09:07 100 35 06/02/16 08:00 35 06/02/16 08:00 71 06/02/16 08:00 96.9 74 12 126/73 100 06/02/16 06:00 75 06/02/16 04:21 100 35 06/02/16 04:00 35 06/02/16 04:00 72 06/02/16 04:00 98.0 72 12 128/71 100 06/02/16 02:00 70 06/02/16 01:20 100 35 06/02/16 00:00 97.8 68 13 129/66 100 06/02/16 00:00 35 06/02/16 00:00 68 06/01/16 23:18 100 35 06/01/16 22:00 68 06/01/16 21:02 100 35 06/01/16 20:00 69 06/01/16 20:00 35 06/01/16 20:00 96.8 69 12 126/72 100 06/01/16 18:00 75 06/01/16 16:30 35 06/01/16 16:13 97 35 06/01/16 16:00 97.6 74 12 127/73 100 06/01/16 16:00 75 06/01/16 14:00 76 06/01/16 13:54 100 35 06/01/16 12:00 96.8 70 12 136/76 100 06/01/16 12:00 35 06/01/16 12:00 70 06/01/16 11:35 100 35 (Temitope Haley) -: 06/02/16 0400 06/02/16 0400 Tubes & Lines Comment ETT, OG tube Drip Comment Fentanyl (Temitope Haley) Physical Exam General Appearance: Well Developed, No Acute Distress (Temitope Haley) Eyes Eye Exam: Pupils Equal, Pupils Reactive (Temitope Haley) Neck Neck Exam: Neck Supple (Temitope Haley) Pulmonary Resp Exam: Clear Bilaterally, Breath Sounds Equal (Temitope Haley) Cardiology CV Exam: Regular, Normal Sinus Rhythm (Temitope Haley) Gastrointestinal/Abdomen GI Exam: Soft, Non-Tender, Non-Distended (Temitope Haley) Genitourinary Exam: Clear Urine (Temitope Haley) Musculoskeletal MS Exam: Joints Intact, Normal Tone (Temitope Haley) Integumentary Skin Exam: Clear, Warm, Dry, Intact (Temitope Haley) Extremeties Extremities Exam: No Edema, Pedal Pulses Palpable (Temitope Haley) Neurologic Neuro Exam: Unresponsive, Sedated (Temitope Haley) Assessment/Plan Discussed Condition With: Patient, Relative Assessment Summary: Anemia of CKD, Hypertension, End Stage Renal Disease Electrolyte Assessment: Hypocalcemia Problem List: (1) ESRD on dialysis Plan: Converting to usual T-Th-Sat HD schedule dialyzed today on a 3K, 350 BFR, goal 1.5 L Potassium remains acceptable, no evidence of fluid overload Has AVF left arm, monitor function Renal panel in am Continue Calcium acetate through feeding tube for metabolic bone disease No Epogen required (2) Hypertension Plan: BP is acceptable. He is on metoprolol, hydralazine, clonidine (3) DM (diabetes mellitus) Plan: continue insulin coverage goal to maintain blood glucose between 140 and 180 (4) Hyperkalemia Plan: corrected with dialysis, monitor for recurrence (5) NSTEMI (non-ST elevated myocardial infarction) Plan: Troponin I elevated post cardiac arrest, chest compressions. he had catheterization in January 2016, normal coronary arteries (6) Elevated LFTs Plan: Liver US: ? acute cholelithiasis may need additional scans (7) Cocaine abuse Plan: cessation advised (Temitope Haley) Problem List: (1) ESRD on dialysis Plan: Converting to usual --Mon HD schedule dialyzed today on a 3K, 350 BFR, goal 1.5 L Potassium remains acceptable, no evidence of fluid overload Has AVF left arm, monitor function Renal panel in am Continue Calcium acetate through feeding tube for metabolic bone disease No Epogen required (2) Hypertension Plan: BP is acceptable. He is on metoprolol, hydralazine, clonidine (3) DM (diabetes mellitus) Plan: continue insulin coverage goal to maintain blood glucose between 140 and 180 (4) Hyperkalemia Plan: corrected with dialysis, monitor for recurrence (5) NSTEMI (non-ST elevated myocardial infarction) Plan: Troponin I elevated post cardiac arrest, chest compressions. he had catheterization in January 2016, normal coronary arteries (6) Elevated LFTs Plan: Liver US: ? acute cholelithiasis may need additional scans (7) Cocaine abuse Plan: cessation advised Plan patient was seen and examined. Remains on the ventilator. Encephalopathy remains. Dialysis will be TTS. (Chetan Francisco MD) Temitope Haley Jun 02, 2016 11:27 Chetan Francisco MD Jun 03, 2016 16:07
[2016-06-02] MEDS: AZITHROMYCIN INJ 500 MG in SODIUM CHLOR 0.9% 250 ML INJ 250 ML IV SCH (15:00)
[2016-06-03] VITALS (17 sets, daily range): BP systolic 108–155; BP diastolic 57–88; PULSE 67–102; RESP 12–24; TEMP 97.2–98.8; O2SAT 93–100
[2016-06-03] MEDS: METOPROLOL TARTRATE 25 MG TAB PO/NG SCH ×4 (01:54→17:13)
[2016-06-03] MEDS: PIPERACIL-TAZO 2.25 GM PREMIX 50 ML IV SCH ×3 (01:55→17:16)
[2016-06-03] MEDS: INSULIN NovoLIN REGULAR SUPPLEMENTAL SCALE SQ SCH ×4 (03:00→21:00)
[2016-06-03] MEDS: HEPARIN SODIUM - SQ 10,000 UNITS/ML VIAL SQ SCH ×2 (06:20→14:00)
[2016-06-03 06:46] LABS: ALKALINE PHOSPHATASE 83 U/L (45-117); ALT (GPT) 74 U/L (12-78); ANION GAP 10 MEQ/L (5-15); AST (GOT) 92 U/L (15-37); BICARBONATE 34.1 MEQ/L (21.0-32.0); BLOOD UREA NITROGEN 32 MG/DL (7-18); CHLORIDE 97 MEQ/L (98-107); GLOMERULAR FILTRATION RATE 12 ML/MIN (>89); POTASSIUM 3.4 MEQ/L (3.5-5.1); SODIUM (NA) 141 MEQ/L (136-145); TOTAL BILIRUBIN ADULT 0.7 MG/DL (0.2-1.0)
[2016-06-03 07:03] LABS: HEMATOCRIT 39.5 % (39.0-51.0); MEAN CELL VOLUME 93.8 FL (80.0-100.0); MEAN CORPUSCULAR HEMOGLOBIN 30.8 PG (27.0-34.0); MEAN CORPUSCULAR HGB CONC 32.8 % (32.0-36.0); PLATELET COUNT 86 TH/MM3 (150-450); RED BLOOD COUNT 4.21 MIL/MM3 (4.50-5.90); RED CELL DISTRIBUTION WIDTH 14.3 % (11.6-17.2); WHITE BLOOD COUNT 4.3 TH/MM3 (4.0-11.0)
[2016-06-03 07:09] LABS: HEMO FLAGS AUTO DIFF
--- NOTE | 2016-06-03 07:29 | HHI.CCPN ---
Subjective Remarks/Hospital Course 05/28: 60 yo AAM with PMH of HTN, stroke without residual deficit, DM, nonischemic cardiomyopathy (EF 40% and stage I diastolic dysfunction) Cocaine abuse, Hepatitis C, ESRD on HD T/R/Sat who presents to [facility] ED for 2 day history of SOB. He reported symptoms started 1/ after he received hemodialysis. He reported a nonproductive cough without fevers, chills, or chest pain. His workup revealed a normal white count and CXR that demonstrated RLL consolidation. His potassium was 6.8. While preparations were being made to administer medications to address his hyperkalemia he developed bradycardia and PEA arrest. He underwent CPR and received epinephrine and 1 amp of bicarbonate. It was return of spontaneous circulation after 8 minutes. He was intubated by the emergency department physician Dr. Clancy. Dr. Francisco with nephrology was consulted and he made arrangements for urgent dialysis which is taking place currently. Target removal 3.8 L per HD RN. Postintubation CXR demonstrates R base infiltrate but also appears there is right pleural effusion. Influenza screen negative. Receive Zosyn and azithromycin in the emergency department. 05/29: Sedated, arousable, not following commands, orally intubated on mechanical ventilation. Gets agitated on lightening sedation and has a strong gag reflex. 05/30: Sedated, arousable, not following commands. Remains orally intubated on mechanical ventilation. Failed C Pap trial today. Dialyzed earlier. 05/31: Sedated/encephalopathic on lightening sedation, not following commands. Remains orally intubated on mechanical ventilation. Failed C Pap trials yesterday. 2-D echo just being completed today. 06/01 No events overnight. On Precedex drip unresponsive and doesn't follow commands. Afebrile. 06/02 Patient s/p HD yesterday with removal 1.5L , on Precedex infusion for sedation. 06/03 No events overnight. Sedated with fentanyl and intubated. s/p HD yesterday with removal 1.5L. Objective Vital Signs Date Time Temp Pulse Resp B/P Pulse Ox O2 Delivery O2 Flow Rate FiO2 06/03/16 06:00 69 06/03/16 04:25 100 35 06/03/16 04:00 97.9 12 117/59 Intake and Output 1/05/0706/02/16 06/03/16 08:00 16:00 00:00 Intake Total 528 ml 483 ml 697 ml Output Total 1500 ml 0 ml Balance 528 ml -1017 ml 697 ml Result Diagram: 06/03/162 06/03/162 Other Results Laboratory Tests Test 06/03/16 04:32 White Blood Count 4.3 TH/MM3 Red Blood Count 4.21 MIL/MM3 Hemoglobin 13.0 GM/DL Hematocrit 39.5 % Mean Corpuscular Volume 93.8 FL Mean Corpuscular Hemoglobin 30.8 PG Mean Corpuscular Hemoglobin 32.8 % Concent Red Cell Distribution Width 14.3 % Platelet Count 86 TH/MM3 Mean Platelet Volume 11.1 FL Neutrophils (%) (Auto) % Lymphocytes (%) (Auto) % Monocytes (%) (Auto) % Eosinophils (%) (Auto) % Basophils (%) (Auto) % Neutrophils # (Auto) TH/MM3 Lymphocytes # (Auto) TH/MM3 Monocytes # (Auto) TH/MM3 Eosinophils # (Auto) TH/MM3 Basophils # (Auto) TH/MM3 CBC Comment AUTO DIFF Sodium Level 141 MEQ/L Potassium Level 3.4 MEQ/L Chloride Level 97 MEQ/L Carbon Dioxide Level 34.1 MEQ/L Anion Gap 10 MEQ/L Blood Urea Nitrogen 32 MG/DL Creatinine 5.90 MG/DL Estimat Glomerular Filtration 12 ML/MIN Rate Random Glucose 103 MG/DL Calcium Level 8.4 MG/DL Total Bilirubin 0.7 MG/DL Aspartate Amino Transf 92 U/L (AST/SGOT) Alanine Aminotransferase 74 U/L (ALT/SGPT) Alkaline Phosphatase 83 U/L Total Protein 6.4 GM/DL Albumin 1.9 GM/DL Imaging Last Impressions Liver Ultrasound 06/01/16 0000 Signed Impressions: Service Date/Time: Wednesday, June 01, 2016 15:38 - CONCLUSION: 1. Bilateral pleural effusions. 2. Thick-walled gallbladder with minimal pericholecystic fluid. If there is clinical concern for acute cholecystitis a hepatobiliary scan may be helpful to confirm cystic duct obstruction. 3. Minimal ascites. 4. Echogenic atrophic right kidney. 5. Mild nonspecific prominence of the main pancreatic duct. Enzo Price MD Chest X-Ray 06/01/16 0000 Signed Impressions: Service Date/Time: Wednesday, June 01, 2016 04:53 - CONCLUSION: 1. Small right pleural effusion stable. 2. Minimal left retrocardiac density. Ozzie Jerez MD Head CT 05/29/16 0000 Signed Impressions: Service Date/Time: Sunday, May 29, 2016 03:03 - CONCLUSION: Age- appropriate atrophy, stable from prior in September 2015. No acute findings. Earnest Torre MD Lower Extremity Ultrasound 05/28/16 0000 Signed Impressions: Service Date/Time: Saturday, May 28, 2016 22:27 - CONCLUSION: Negative for deep venous thrombosis bilateral lower extremity. Earnest Torre MD Objective Remarks GENERAL: Patient is 60 yo intubated and sedated. SKIN: Warm and dry. HEAD: Normocephalic. EYES: No scleral icterus. No injection or drainage. NECK: Supple, trachea midline. No JVD or lymphadenopathy. CARDIOVASCULAR: Regular rate and rhythm without murmurs, gallops, or rubs. RESPIRATORY: Breath sounds equal bilaterally. No accessory muscle use. GASTROINTESTINAL: Abdomen soft, non-tender, nondistended. MUSCULOSKELETAL: No cyanosis, or edema. Neuro: Intubated, unresponsive. A/P Assessment and Plan NEURO: Acute encephalopathy, post cardiac arrest. History of stroke without residual deficit (per friend's report) History of cocaine abuse On Fentanyl infusion for sedation. Daily sedation vacation, RASS -2. EEG showed mod. slowing, possible focus for epileptic activity Neuro is following-Dr. Wilks RESP: Acute respiratory failure Healthcare associated pneumonia Intubated in ED 05/28/16 following cardiac arrest Duoneb q6 hours. Albuterol 2 prn. Ventilator Bundle. Daily SBT as leana CV: Cardiac arrest, secondary to hyperkalemia Nonischemic cardiomyopathy secondary to HTN, cocaine abuse Hypertension Elevated Troponin: ? NSTEMI Monitor HR and BP keep MAP>65mmHg Continue home meds: Hydralazine 25 tid. Clonidine 0.1 tid., Lopressor 25mg Q6 ASA 81 mg daily. Mild troponin elevation in setting of ESRD. Echo 05/31: EF 25-30%, no RWMA cardiac cath 12/09/2012 - EF 40%, normal coronaries. Elevated troponin, cardiac arrest cardiology is following-no intervention planned. GI: Hepatitis C Elevated LFT Continue TF-Nepro@40ml/hr Monitor LFT's: Trending down US liver: Bilateral pleural effusions. Thick-walled gallbladder with minimal pericholecystic fluid. Minimal ascites. Echogenic atrophic right kidney. Mild nonspecific prominence of the main pancreatic duct. FEN/RENAL: ESRD Acute severe hyperkalemia Intermittent hemodialysis per nephrology (Dr. Francisco) Emergent HD 05/28 due to potassium of 6.8 with bradycardia and cardiac arrest Monitor renal function, I/O's, avoid nephrotoxins. s/p HD yesterday 1.5L removed. ID: Acute healthcare associated pneumonia Received Zosyn and azithromycin in the emergency department 05/28. On Zosyn 2.25 g IV every 8 hours dosed for pneumonia/ESRD. Azithromycin 500 mg IV daily. 05/29 Sputum cx: nl jorge l, 05/28 nasal washing negative for Influenza. HEME: Monitor CBC ENDO: Diabetes mellitus Medium dose Insulin sliding scale with bedside glucose every 6 hours PROPH: Heparin subcutaneous for DVT prophylaxis. Protonix 40 mg IV daily for stress ulcer prophylaxis. Doppler US LE negative for DVT ACCESS: Peripheral IV providing adequate access at this time. Left AV fistula accessed for hemodialysis Full code Discussed with COMPUTER SUPPORT SPECIALIST INSTRUCTOR. Palliative care is following Critical care time 30 minutes exclusive of separately billable procedures. Deloris Campuzano MD Jun 03, 2016 07:29
[2016-06-03 08:14] LABS: EOSINOPHILS 4 % (0-4); NEUTROPHIL # MANUAL DIFF 2.2 TH/MM3 (1.8-7.7); POLYS (SEG NEUTROPHILS) 50 % (16-70); SCAN/DIFF FINAL DIFF MANUAL; WBC DIFF SAMPLE 100
[2016-06-03 08:15] LABS: PLATELET ESTIMATE SMEAR LOW (NORMAL); PLATELET MORPHOLOGY ENLARGED (NORMAL)
[2016-06-03] MEDS: fentaNYL DRIP 250 ML IV SCH ×2 (08:23→18:30)
[2016-06-03] MEDS: CALCIUM ACETATE 667 MG CAP NG SCH ×3 (08:24→17:13)
[2016-06-03] MEDS: hydrALAZINE HCL 25 MG TAB PO SCH ×3 (08:24→17:16)
[2016-06-03] MEDS: cloNIDine HCL 0.1 MG TAB PO SCH ×3 (08:24→17:16)
[2016-06-03] MEDS: PANTOPRAZOLE SODIUM 40 MG VIAL IV SCH (08:24)
[2016-06-03] MEDS: DOCUSATE SODIUM 100 MG CAP PO SCH (08:24)
[2016-06-03] MEDS: ASPIRIN EC 81 MG TABEC PO SCH (08:25)
[2016-06-03] MEDS: CHLORHEXIDINE 0.12% (ORAL KIT) 15 ML CUP MT SCH ×2 (09:32→20:00)
--- NOTE | 2016-06-03 11:05 | HHI.NPPN ---
Subjective General Problems: Anemia Renal Failure: Chronic, End Stage Renal Disease Interval History Remains intubated, sedated, unresponsive on vent. Dialyzed yesterday. (Temitope Haley) Review of Systems General General Remarks unable to evaluate due to intubation/sedation (Temitope Haley) Objective Data Data 06/02/16 06/03/16 19:00 07:00 Intake Total 483 ml 1029 ml Output Total 1500 ml 0 ml Balance -1017 ml 1029 ml Intake Oral 0 ml IV Total 162 ml 585 ml Tube Feeding 261 ml 444 ml Other 60 ml Output Urine Total 0 ml Hemodialysis 1500 ml # Bowel Movements 1 Vital Signs Date Time Temp Pulse Resp B/P Pulse Ox O2 Delivery O2 Flow Rate FiO2 06/03/16 09:00 35 06/03/16 08:20 35 06/03/16 08:14 100 35 06/03/16 08:00 35 06/03/16 06:00 69 06/03/16 04:25 100 35 06/03/16 04:00 97.9 69 12 117/59 96 06/03/16 04:00 69 06/03/16 04:00 35 06/03/16 02:00 79 06/03/16 00:00 97.2 70 20 108/57 96 06/03/16 00:00 100 35 06/03/16 00:00 35 06/03/16 00:00 70 06/02/16 22:00 70 06/02/16 20:47 100 35 06/02/16 20:00 65 06/02/16 20:00 97.5 64 12 113/61 99 06/02/16 20:00 35 06/02/16 18:00 68 06/02/16 16:00 35 06/02/16 16:00 79 06/02/16 16:00 98.3 78 11 109/62 100 06/02/16 15:55 35 06/02/16 15:55 100 35 06/02/16 14:00 71 06/02/16 13:03 100 35 06/02/16 12:00 97.6 68 12 119/63 100 06/02/16 12:00 35 06/02/16 12:00 68 (Temitope Haley) -: 06/03/16 0432 06/03/16 0432 Tubes & Lines Comment ETT, OG tube Drip Comment Fentanyl (Temitope Haley) Physical Exam General Appearance: Well Developed, No Acute Distress (Temitope Haley) Eyes Eye Exam: Pupils Equal, Pupils Reactive (Temitope Haley) Neck Neck Exam: Neck Supple (Temitope Haley) Pulmonary Resp Exam: Clear Bilaterally, Breath Sounds Equal (Temitope Haley) Cardiology CV Exam: Regular, Normal Sinus Rhythm (Temitope Haley) Gastrointestinal/Abdomen GI Exam: Soft, Non-Tender, Non-Distended (Temitope Haley) Genitourinary Exam: Clear Urine (Temitope Haley) Musculoskeletal MS Exam: Joints Intact, Normal Tone (Temitope Haley) Integumentary Skin Exam: Clear, Warm, Dry, Intact (Temitope Haley) Extremeties Extremities Exam: No Edema, Pedal Pulses Palpable (Temitope Haley) Neurologic Neuro Exam: Unresponsive, Sedated (Temitope Haley) Assessment/Plan Discussed Condition With: Patient, Relative Assessment Summary: Anemia of CKD, Hypertension, End Stage Renal Disease Electrolyte Assessment: Hypocalcemia Problem List: (1) ESRD on dialysis Plan: Now on usual T-Th-Sat HD schedule, had 1500 ml UF yesterday Potassium remains acceptable, no evidence of fluid overload Has AVF left arm, monitor function Renal panel in am Continue Calcium acetate through feeding tube for metabolic bone disease No Epogen required (2) Hypertension Plan: BP is acceptable. He is on metoprolol, hydralazine, clonidine (3) DM (diabetes mellitus) Plan: continue insulin coverage goal to maintain blood glucose between 140 and 180 (4) Hyperkalemia Plan: corrected with dialysis, monitor for recurrence (5) NSTEMI (non-ST elevated myocardial infarction) Plan: Troponin I elevated post cardiac arrest, chest compressions. he had catheterization in January 2016, normal coronary arteries (6) Elevated LFTs Plan: ? shock liver s/p cardiac arrest LFTs improving Liver US: possible acute cholelithiasis (7) Cocaine abuse Plan: cessation advised (Temitope Haley) Plan patient was seen and examined. Agree with above assessment and plan. Dialysis TTS. (Chetan Francisco MD) Temitope Haley Jun 03, 2016 11:05 Chetan Francisco MD Jun 03, 2016 16:23
--- NOTE | 2016-06-03 16:38 | HHI.HCPN ---
Reason for visit a. To assist with evaluation and management of symptoms including: dyspnea, encephalopathy b. To assist medical decision maker(s) with: better understanding of current medical conditions; weighing benefits/burdens of medical treatment options; making medical treatment decisions. Subjective/Interval History Patient seen today to follow-up on comfort , goals with decision makers. He remains on mechanical vent in ICU. Still on Fentanyl drip for sedation/ comfort. CPAP trial today for approximately 4 hours, still unable to medically extubate. Tolerated dialysis [id number] ml removed. Now on regular dialysis schedule Monday, , Monday. Labs stable, no significant changes. LFTs trending down. No new imaging. Vital signs within normal limits. Afebrile. Significant other and her brother at bedside during my exam. They endorsed that patient continues to seem to track and arouses for them though I'm not able to duplicate this for my exam. To my exam patient does arouse some lifts head up thrashes legs around though does not do so purposefully does not track examiner does not follow commands. He appears comfortable when not being stimulated. Spoke with family (significant other, her brother) about current conditions, overall prognosis again briefly explore overall conditions and possible trajectory going forward. Significant other's brother tells me that the patient does have ongoing bouts of agitation and anxiety at home, but that he did not take medicines for them though in the past he had utilize crack cocaine to treat those symptoms. They do not think that he is utilize any recently, his significant girlfriend had been helping him to abstain from. They wonder if use of that could be contributing to his current altered mental status. I again review encephalopathy post code, metabolic, multiple conditions and that still not clear how much neuro function he will regain. They are concerned about possibility of agitation ongoing. I explore with them that if going forward in the next days to week he does not show signs of improvement and weaning off the ventilator then they would have the option to proceed with tracheostomy and further aggressive interventions which may or may not help the patient eventually have more recovery, alternatively patient would have the option to transition to comfort focus and focus on relief of symptoms, comfort care via hospice with no further invasive measures. For now they want to continue to try to do everything in her praying that he will get better and come through this as he did once before. Discussed with nurse, critical care Dr. Campuzano. Advance Directives Living Will: Never completed Health Care Surrogate: Never completed Durable Power of Pharmacy Services Director: Never completed Objective Vital Signs Date Time Temp Pulse Resp B/P Pulse Ox O2 Delivery O2 Flow Rate FiO2 06/03/16 12:35 100 35 06/03/16 12:00 72 06/03/16 12:00 35 06/03/16 12:00 97.5 72 12 140/70 100 06/03/16 10:00 75 06/03/16 09:00 35 06/03/16 08:20 35 06/03/16 08:14 100 35 06/03/16 08:00 35 06/03/16 08:00 77 06/03/16 08:00 98.6 77 12 134/66 100 06/03/16 06:00 69 06/03/16 04:25 100 35 06/03/16 04:00 97.9 69 12 117/59 96 06/03/16 04:00 69 06/03/16 04:00 35 06/03/16 02:00 79 06/03/16 00:00 97.2 70 20 108/57 96 06/03/16 00:00 100 35 06/03/16 00:00 35 06/03/16 00:00 70 06/02/16 22:00 70 06/02/16 20:47 100 35 06/02/16 20:00 65 06/02/16 20:00 97.5 64 12 113/61 99 06/02/16 20:00 35 06/02/16 18:00 68 Intake & Output 06/03/16 06/03/16 07:00 19:00 Intake Total 1029 ml Output Total 0 ml Balance 1029 ml IV Total 585 ml Tube Feeding 444 ml Output Urine Total 0 ml Physical Exam CONSTITUTIONAL/GENERAL: This is an adequately nourished patient, in no apparent distress. TUBES/LINES/DRAINS: PIV x 2 RUE, OGT, ETT, restraints BUE CARDIOVASCULAR: Regular rate and rhythm without murmurs. peripheral pulses symmetric. RESPIRATORY/CHEST: Symmetric, unlabored respirations via ETT to mech vent. Clear to auscultation. GASTROINTESTINAL: Abdomen soft, nondistended. No hepato-splenomegaly, or palpable masses. Bowel sounds present. TF infusing via OGT. + 3 palpable, nodular , mobile firm masses to abdomen (? r/t Sq heparin) NEUROLOGICAL: sedated on [facility] vent-- limited assessment. Opens eyes to touch stimuli however does not track examiner. Withdraws to pain stimuli on 4 extremities. Begins thrashing around and moving all 4 extremities however does not follow commands were clear to do so purposefully. Restraints 4. PSYCHIATRIC: Limited assessment due to clinical conditionto exam begins thrashing around and restless however when stimuli stopped he again becomes restful Diagnostic Tests Laboratory Laboratory Tests Test 06/01/16 06/02/16 06/03/16 03:22 04:00 04:32 White Blood Count 3.7 TH/MM3 3.3 TH/MM3 4.3 TH/MM3 (4.0-11.0) (4.0-11.0) (4.0-11.0) Red Blood Count 4.33 MIL/MM3 4.40 MIL/MM3 4.21 MIL/MM3 (4.50-5.90) (4.50-5.90) (4.50-5.90) Hemoglobin 13.0 GM/DL 13.4 GM/DL 13.0 GM/DL (13.0-17.0) (13.0-17.0) (13.0-17.0) Hematocrit 40.2 % 40.4 % 39.5 % (39.0-51.0) (39.0-51.0) (39.0-51.0) Mean Corpuscular Volume 92.8 FL 91.7 FL 93.8 FL (80.0-100.0) (80.0-100.0) (80.0-100.0) Mean Corpuscular Hemoglobin 30.1 PG 30.5 PG 30.8 PG (27.0-34.0) (27.0-34.0) (27.0-34.0) Mean Corpuscular Hemoglobin 32.4 % 33.2 % 32.8 % Concent (32.0-36.0) (32.0-36.0) (32.0-36.0) Red Cell Distribution Width 14.4 % 14.8 % 14.3 % (11.6-17.2) (11.6-17.2) (11.6-17.2) Platelet Count 93 TH/MM3 99 TH/MM3 86 TH/MM3 (150-450) (150-450) (150-450) Mean Platelet Volume 11.3 FL 11.9 FL 11.1 FL (7.0-11.0) (7.0-11.0) (7.0-11.0) Neutrophils (%) (Auto) 64.7 % % (16.0-70.0) % (16.0-70.0) (16.0-70.0) Lymphocytes (%) (Auto) 12.9 % % (9.0-44.0) % (9.0-44.0) (9.0-44.0) Monocytes (%) (Auto) 20.4 % % (0.0-8.0) % (0.0-8.0) (0.0-8.0) Eosinophils (%) (Auto) 1.5 % (0.0-4.0) % (0.0-4.0) % (0.0-4.0) Basophils (%) (Auto) 0.5 % (0.0-2.0) % (0.0-2.0) % (0.0-2.0) Neutrophils # (Auto) 2.4 TH/MM3 TH/MM3 TH/MM3 (1.8-7.7) (1.8-7.7) (1.8-7.7) Lymphocytes # (Auto) 0.5 TH/MM3 TH/MM3 TH/MM3 (1.0-4.8) (1.0-4.8) (1.0-4.8) Monocytes # (Auto) 0.8 TH/MM3 TH/MM3 (0-0.9) TH/MM3 (0-0.9) (0-0.9) Eosinophils # (Auto) 0.1 TH/MM3 TH/MM3 (0-0.4) TH/MM3 (0-0.4) (0-0.4) Basophils # (Auto) 0.0 TH/MM3 TH/MM3 (0-0.2) TH/MM3 (0-0.2) (0-0.2) CBC Comment AUTO DIFF AUTO DIFF AUTO DIFF Differential Total Cells 100 100 100 Counted Neutrophils % (Manual) 74 % (16-70) 50 % (16-70) 50 % (16-70) Band Neutrophils % 1 % (0-6) Lymphocytes % 10 % (9-44) 30 % (9-44) 23 % (9-44) Monocytes % 13 % (0-8) 16 % (0-8) 23 % (0-8) Neutrophils # (Manual) 2.8 TH/MM3 1.7 TH/MM3 2.2 TH/MM3 (1.8-7.7) (1.8-7.7) (1.8-7.7) Myelocytes 2 % (0-0) Differential Comment FINAL DIFF FINAL DIFF FINAL DIFF MANUAL MANUAL MANUAL Platelet Estimate LOW (NORMAL) LOW (NORMAL) LOW (NORMAL) Platelet Morphology Comment ENLARGED NORMAL ENLARGED (NORMAL) (NORMAL) (NORMAL) Ovalocytes 1+ (NORMAL) 1+ (NORMAL) Sodium Level 143 MEQ/L 140 MEQ/L 141 MEQ/L (136-145) (136-145) (136-145) Potassium Level 3.7 MEQ/L 3.7 MEQ/L 3.4 MEQ/L (3.5-5.1) (3.5-5.1) (3.5-5.1) Chloride Level 99 MEQ/L 100 MEQ/L 97 MEQ/L (98-107) (98-107) (98-107) Carbon Dioxide Level 28.7 MEQ/L 30.5 MEQ/L 34.1 MEQ/L (21.0-32.0) (21.0-32.0) (21.0-32.0) Anion Gap 15 MEQ/L (5-15) 10 MEQ/L (5-15) 10 MEQ/L (5-15) Blood Urea Nitrogen 59 MG/DL (7-18) 42 MG/DL (7-18) 32 MG/DL (7-18) Creatinine 9.11 MG/DL 6.95 MG/DL 5.90 MG/DL (0.60-1.30) (0.60-1.30) (0.60-1.30) Estimat Glomerular Filtration 7 ML/MIN (>89) 10 ML/MIN (>89) 12 ML/MIN (>89) Rate Random Glucose 121 MG/DL 147 MG/DL 103 MG/DL (74-106) (74-106) (74-106) Calcium Level 8.3 MG/DL 8.5 MG/DL 8.4 MG/DL (8.5-10.1) (8.5-10.1) (8.5-10.1) Total Bilirubin 1.0 MG/DL 0.9 MG/DL 0.7 MG/DL (0.2-1.0) (0.2-1.0) (0.2-1.0) Aspartate Amino Transf 148 U/L (15-37) 118 U/L (15-37) 92 U/L (15-37) (AST/SGOT) Alanine Aminotransferase 106 U/L (12-78) 91 U/L (12-78) 74 U/L (12-78) (ALT/SGPT) Alkaline Phosphatase 88 U/L (45-117) 77 U/L (45-117) 83 U/L (45-117) Total Protein 6.2 GM/DL 6.4 GM/DL 6.4 GM/DL (6.4-8.2) (6.4-8.2) (6.4-8.2) Albumin 2.1 GM/DL 2.0 GM/DL 1.9 GM/DL (3.4-5.0) (3.4-5.0) (3.4-5.0) Eosinophils % 3 % (0-4) 4 % (0-4) Basophils % 1 % (0-2) Nucleated Red Blood Cells 1 /100 WBC (0-0) Result Diagram: 06/03/16 0432 06/03/16 0432 Imaging Last Impressions Liver Ultrasound 06/01/16 0000 Signed Impressions: Service Date/Time: Wednesday, June 01, 2016 15:38 - CONCLUSION: 1. Bilateral pleural effusions. 2. Thick-walled gallbladder with minimal pericholecystic fluid. If there is clinical concern for acute cholecystitis a hepatobiliary scan may be helpful to confirm cystic duct obstruction. 3. Minimal ascites. 4. Echogenic atrophic right kidney. 5. Mild nonspecific prominence of the main pancreatic duct. Enzo Price MD Chest X-Ray 06/01/16 0000 Signed Impressions: Service Date/Time: Wednesday, June 01, 2016 04:53 - CONCLUSION: 1. Small right pleural effusion stable. 2. Minimal left retrocardiac density. Ozzie Jerez MD Head CT 05/29/16 0000 Signed Impressions: Service Date/Time: Sunday, May 29, 2016 03:03 - CONCLUSION: Age- appropriate atrophy, stable from prior in September 2015. No acute findings. Earnest Torre MD Lower Extremity Ultrasound 05/28/16 0000 Signed Impressions: Service Date/Time: Saturday, May 28, 2016 22:27 - CONCLUSION: Negative for deep venous thrombosis bilateral lower extremity. Earnest Torre MD Assessment and Plan Disease Oriented Problem List: (1) Metabolic encephalopathy (2) ESRD on hemodialysis (3) Shortness of breath (4) Diabetes (5) CHF (congestive heart failure) (6) Elevated troponin level (7) Hepatitis C (8) Hyperkalemia, diminished renal excretion (9) Cardiac arrest (10) Hyperkalemia (11) Hypertension (12) NSTEMI (non-ST elevated myocardial infarction) (13) Elevated LFTs (14) Non-ischemic cardiomyopathy Symptom Scale: (1) Encephalopathy (2) Anxiety (3) Dyspnea Pertinent Non-Medical Issues Psychosocial:Per prior H&P by palliative 2014 (obtained from significant other Neema) patient born in [place] moves to [place] sometime in 2012 or . Parents are , patient has no siblings. He did serve in the though branch not known. He did have some connection with the [facility]. Disabled and not working for many years. Completed high school. 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 Has lived with significant other Neema Johnston for many years. Never reported to be . Has 1 son, 1 daughter who may live in the [place] area. Spiritual:Per prior admissions:He attends [employer]. 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 Legal:Patient currently unable to participate in decision-making due to clinical condition. Not clear if he will regain ability to participate, status post PEA arrest. Patient reported to have 2 adult children, never . Per [place] statutes these 2 adult children would be appropriate legal decision makers. He has a significant other of many years who has previously served as a proxy during hospital course as children were not able to be located during previous attempts. Would again attempt to locate any possible family members as the last attempt I'm aware of occurred in 2013, if unable to locate children then would proceed with significant other artery as healthcare proxy. [1.16-- requested case management assist with [employer] report to again attempt to locate possible children-- reported 06.02.15 no family located. ] Ethical issues impacting care: Important Contacts Neema Johnston significant other [phone] Prognosis This patient suffered PEA arrest during this admission likely secondary to hyperkalemia, end-stage renal disease on hemodialysis. He now remains on mechanical vent, encephalopathic. Condition is guarded. Possible he may wean and medically extubate however thus far not tolerating CPAP trials. May require tracheostomy and PEG for ongoing aggressive interventions. Appears likely he can survive current hospital course though he does remain at risk for complications/setbacks. Code Status: Full Code Plan * Legal decision maker: Patient currently unable to participate in decision- making due to clinical condition. Not clear if he will regain ability to participate, status post PEA arrest. Patient reported to have 2 adult children , never . Per [place] statutes these 2 adult children would be appropriate legal decision makers. He has a significant other of many years who has previously served as a proxy during hospital course as children were not able to be located during previous attempts. Would again attempt to locate any possible family members as the last attempt I'm aware of occurred in 2013, if unable to locate children then would proceed with significant other artery as healthcare proxy. * Goals: AGGRESSIVE. Met w sig other Neema and her brother 06/02/16-- Neema seems to have very limited understanding and limited insight to conditions. When I initially asked what the drs had told her about her sig other's condition she stated "that he was fine and all his tests were perfect, normal". Much review of conditions, diagnostics, clinical course thus far, underlying conditions. Her brother seems to understand things a little better, seems to have a little better insight. Goals thus far are aggressive. They feel they have seen pt respond purposefully to their visit. They have seen him recover from many acute issues before, including PEA arrest, and believe he could again recover. I met again with patient significant other Neema and her brother 06/03/16: explore with them that if going forward in the next days to week he does not show signs of improvement and weaning off the ventilator then they would have the option to proceed with tracheostomy and further aggressive interventions which may or may not help the patient eventually have more recovery, alternatively patient would have the option to transition to comfort focus and focus on relief of symptoms, comfort care via hospice with no further invasive measures. For now they want to continue to try to do everything in her praying that he will get better and come through this as he did once before. * CODE STATUS: Full code * SYMPTOMS: --Encephalopathy-status post PEA arrest with ROSC after approximately 8 minutes of CPR.+ encephalopathy per EEG. Neurology following, continue supportive care. Patient with prior PEA arrest episode and encephalopathy during prior admission 2013, eventually during hospital course had improvement in neurological status. --Dyspnea-emergently intubated for airway protection during PEA arrest; currently on mechanical vent not tolerating CPAP trials. May require tracheostomy/PEG if unable to wean, and if goals are aggressive. -Agitation/anxiety: Currently on mechanical vent, I be contributing, as well as encephalopathy 2/2 PEA arrest ; previously on Precedex drip, when sedation lightened not following but does become agitated--now on fentanyl drip with periods of agitation though for the most part comfortable on 50 mics/hour. We' ll continue to evaluate. * Palliative care will continue to follow during hospital course as condition evolves, to assist patient/decision-maker with understanding of medical conditions, weighing benefits/burdens of treatment options, for clarification of goals of treatment. Additionally will assist with any symptoms of palliative concern Time Spent Total Floor Time (mins): 30 >50% Counseling/Coord of Care: Yes (discussed with nurse, critical care) Attestation To help prompt me to consider important information that might be impacting today's encounter and assessment, information from prior notes written by myself or my colleagues may have been "brought forward" into today's note. My signature on this note, however, is an attestation that I personally performed the exam, history, and/or decision-making noted today, and, unless otherwise indicated, the interactions with patient, family, and staff as well as the review of records all occurred today. I also attest that the listed assessment and stated plan reflect my best clinical judgment today based on the combination of historical information, prior notes, and today's exam/ interactions. When time spent is documented, it refers only to time spent today by the signer, or if indicated, combined time spent today by collaborating physician/nurse practitioner. Blank Coronel Jun 03, 2016 16:38
[2016-06-03] MEDS: AZITHROMYCIN INJ 500 MG in SODIUM CHLOR 0.9% 250 ML INJ 250 ML IV SCH (17:17)
[2016-06-04] VITALS (18 sets, daily range): BP systolic 100–131; BP diastolic 56–68; PULSE 70–82; RESP 11–16; TEMP 97.9–98.8; O2SAT 96–100
[2016-06-04] MEDS: METOPROLOL TARTRATE 25 MG TAB PO/NG SCH ×4 (00:41→17:35)
[2016-06-04] MEDS: PIPERACIL-TAZO 2.25 GM PREMIX 50 ML IV SCH ×3 (00:41→17:35)
[2016-06-04] MEDS: INSULIN NovoLIN REGULAR SUPPLEMENTAL SCALE SQ SCH ×4 (03:00→20:00)
[2016-06-04] MEDS: CHLORHEXIDINE GLUCONATE 2 % 1 PACK (2 CLOTHS) TOP SCH (04:00)
[2016-06-04] MEDS: HEPARIN SODIUM - SQ 10,000 UNITS/ML VIAL SQ SCH ×4 (04:37→22:19)
[2016-06-04] MEDS: DOCUSATE SODIUM 100 MG CAP PO SCH ×3 (04:37→19:59)
[2016-06-04] MEDS: fentaNYL DRIP 250 ML IV SCH ×2 (04:38→12:26)
--- NOTE | 2016-06-04 04:51 | RADRPT ---
EXAM DATE/TIME: 06/04/2016 03:23 [facility] COMPARISON: CHEST SINGLE AP, June 01, 2016, 4:53. INDICATIONS : Shortness of breath, possible pulmonary disease. MEDICAL HISTORY : Renal failure, chronic. Stroke. Myocardial infarction. SURGICAL HISTORY : None. ENCOUNTER: Subsequent ACUITY: 1 week PAIN SCORE: Non-responsive. LOCATION: Bilateral chest FINDINGS: The cardiac silhouette is enlarged in transverse diameter. Support lines and tubes are in satisfactor y position. There is right lower lobe atelectasis versus pneumonia. A small right sided effusion is p resent. The left lung is free of acute parenchymal opacity. CONCLUSION: 1. Cardiomegaly. Right lower lobe atelectasis versus pneumonia. There has been no significant change when compared to the prior exam. Lauro Dumont MD on June 04, 2016 at 4:49 Board Certified Radiologist. This report was verified electronically.
[2016-06-04] MEDS: LORazepam 2 MG/ML VIAL IV PUSH PRN (07:49)
[2016-06-04 08:15] LABS: ALKALINE PHOSPHATASE 68 U/L (45-117); ALT (GPT) 64 U/L (12-78); ANION GAP 13 MEQ/L (5-15); BICARBONATE 29.9 MEQ/L (21.0-32.0); BLOOD UREA NITROGEN 44 MG/DL (7-18); CHLORIDE 96 MEQ/L (98-107); GLOMERULAR FILTRATION RATE 9 ML/MIN (>89); SODIUM (NA) 139 MEQ/L (136-145); TOTAL BILIRUBIN ADULT 0.7 MG/DL (0.2-1.0)
[2016-06-04 08:17] LABS: AST (GOT) 94 U/L (15-37); POTASSIUM 4.4 MEQ/L (3.5-5.1)
[2016-06-04] MEDS: PANTOPRAZOLE SODIUM 40 MG VIAL IV SCH (08:30)
[2016-06-04] MEDS: CHLORHEXIDINE 0.12% (ORAL KIT) 15 ML CUP MT SCH ×2 (08:30→19:11)
[2016-06-04] MEDS: CALCIUM ACETATE 667 MG CAP NG SCH ×3 (08:30→17:35)
[2016-06-04] MEDS: SODIUM CHLORIDE 0.9% FLUSH 5 ML FLUSH IV FLUSH SCH ×2 (08:30→19:59)
--- NOTE | 2016-06-04 08:30 | HHI.CCPN ---
Subjective Remarks/Hospital Course 05/28: 60 yo AAM with PMH of HTN, stroke without residual deficit, DM, nonischemic cardiomyopathy (EF 40% and stage I diastolic dysfunction) Cocaine abuse, Hepatitis C, ESRD on HD T/R/Sat who [place] [facility] for 2 day history of SOB. He reported symptoms started 1/ after he received hemodialysis. He reported a nonproductive cough without fevers, chills, or chest pain. His workup revealed a normal white count and CXR that demonstrated RLL consolidation. His potassium was 6.8. While preparations were being made to administer medications to address his hyperkalemia he developed bradycardia and PEA arrest. He underwent CPR and received epinephrine and 1 amp of bicarbonate. It was return of spontaneous circulation after 8 minutes. He was intubated by the emergency department physician Dr. Clancy. Dr. Francisco with nephrology was consulted and he made arrangements for urgent dialysis which is taking place currently. Target removal 3.8 L per HD RN. Postintubation CXR demonstrates R base infiltrate but also appears there is right pleural effusion. Influenza screen negative. Receive Zosyn and azithromycin in the emergency department. 05/29: Sedated, arousable, not following commands, orally intubated on mechanical ventilation. Gets agitated on lightening sedation and has a strong gag reflex. 05/30: Sedated, arousable, not following commands. Remains orally intubated on mechanical ventilation. Failed C Pap trial today. Dialyzed earlier. 05/31: Sedated/encephalopathic on lightening sedation, not following commands. Remains orally intubated on mechanical ventilation. Failed C Pap trials yesterday. 2-D echo just being completed today. 06/01 No events overnight. On Precedex drip unresponsive and doesn't follow commands. Afebrile. 06/02 Patient s/p HD yesterday with removal 1.5L , on Precedex infusion for sedation. 06/03 No events overnight. Sedated with fentanyl and intubated. s/p HD yesterday with removal 1.5L. 06/04 Patient remains sedated and intubated. Afebrile. Did not tolerate CPAP trials yesterday as he became tachypneic. Objective Vital Signs Date Time Temp Pulse Resp B/P Pulse Ox O2 Delivery O2 Flow Rate FiO2 06/04/16 06:00 70 06/04/16 04:41 100 35 06/04/16 04:00 98.8 14 118/61 Intake and Output 06/03/16 06/03/16 06/04/16 08:00 16:00 00:00 Intake Total 332 ml 754 ml 696 ml Output Total 0 ml 50 ml Balance 332 ml 754 ml 646 ml Result Diagram: 06/03/16 0432 06/04/16 0534 Other Results Laboratory Tests Test 06/04/16 05:34 Sodium Level 139 MEQ/L Potassium Level 4.4 MEQ/L Chloride Level 96 MEQ/L Carbon Dioxide Level 29.9 MEQ/L Anion Gap 13 MEQ/L Blood Urea Nitrogen 44 MG/DL Creatinine 7.64 MG/DL Estimat Glomerular Filtration 9 ML/MIN Rate Random Glucose 77 MG/DL Calcium Level 9.0 MG/DL Total Bilirubin 0.7 MG/DL Aspartate Amino Transf 94 U/L (AST/SGOT) Alanine Aminotransferase 64 U/L (ALT/SGPT) Alkaline Phosphatase 68 U/L Total Protein 6.6 GM/DL Albumin 2.0 GM/DL Imaging Last Impressions Chest X-Ray 06/04/16 0000 Signed Impressions: Service Date/Time: Saturday, June 04, 2016 03:23 - CONCLUSION: 1. Cardiomegaly. Right lower lobe atelectasis versus pneumonia. There has been no significant change when compared to the prior exam. Lauro Dumont MD Liver Ultrasound 06/01/16 0000 Signed Impressions: Service Date/Time: Wednesday, June 01, 2016 15:38 - CONCLUSION: 1. Bilateral pleural effusions. 2. Thick-walled gallbladder with minimal pericholecystic fluid. If there is clinical concern for acute cholecystitis a hepatobiliary scan may be helpful to confirm cystic duct obstruction. 3. Minimal ascites. 4. Echogenic atrophic right kidney. 5. Mild nonspecific prominence of the main pancreatic duct. Enzo Price MD Head CT 05/29/16 0000 Signed Impressions: Service Date/Time: Sunday, May 29, 2016 03:03 - CONCLUSION: Age- appropriate atrophy, stable from prior in September 2015. No acute findings. Earnest Torre MD Lower Extremity Ultrasound 05/28/16 0000 Signed Impressions: Service Date/Time: Saturday, May 28, 2016 22:27 - CONCLUSION: Negative for deep venous thrombosis bilateral lower extremity. Earnest Torre MD Objective Remarks GENERAL: Patient is 60 yo intubated and sedated. SKIN: Warm and dry. HEAD: Normocephalic. EYES: No scleral icterus. No injection or drainage. NECK: Supple, trachea midline. No JVD or lymphadenopathy. CARDIOVASCULAR: Regular rate and rhythm without murmurs, gallops, or rubs. RESPIRATORY: Breath sounds equal bilaterally. No accessory muscle use. GASTROINTESTINAL: Abdomen soft, non-tender, nondistended. MUSCULOSKELETAL: No cyanosis, or edema. Neuro: Intubated, unresponsive. A/P Assessment and Plan NEURO: Acute encephalopathy, post cardiac arrest. History of stroke without residual deficit (per friend's report) History of cocaine abuse On Fentanyl infusion for sedation. Daily sedation vacation, RASS -2. EEG showed mod. slowing, possible focus for epileptic activity Neuro is following-Dr. Wilks RESP: Acute respiratory failure Healthcare associated pneumonia Intubated in ED 05/28/16 following cardiac arrest Continue with vent support keep sat >92% Duoneb q6 hours. Albuterol 2 prn. Ventilator Bundle. Daily SBT as leana Check ABG CV: Cardiac arrest, secondary to hyperkalemia Nonischemic cardiomyopathy secondary to HTN, cocaine abuse Hypertension Elevated Troponin: ? NSTEMI Monitor HR and BP keep MAP>65mmHg Continue home meds: Hydralazine 25 tid. Clonidine 0.1 tid., Lopressor 25mg Q6 ASA 81 mg daily. Mild troponin elevation in setting of ESRD. Echo 05/31: EF 25-30%, no RWMA cardiac cath 12/09/2012 - EF 40%, normal coronaries. Elevated troponin, cardiac arrest cardiology is following-no intervention planned. GI: Hepatitis C Elevated LFT Continue TF-Nepro@40ml/hr Monitor LFT's: Trending down US liver: Bilateral pleural effusions. Thick-walled gallbladder with minimal pericholecystic fluid. Minimal ascites. Echogenic atrophic right kidney. Mild nonspecific prominence of the main pancreatic duct. FEN/RENAL: ESRD Acute severe hyperkalemia Intermittent hemodialysis per nephrology (Dr. Francisco) Emergent HD 05/28 due to potassium of 6.8 with bradycardia and cardiac arrest Monitor renal function, I/O's, avoid nephrotoxins. s/p HD yesterday 1.5L removed. ID: Acute healthcare associated pneumonia Received Zosyn and azithromycin in the emergency department 05/28. On Zosyn 2.25 g IV every 8 hours dosed for pneumonia/ESRD. Azithromycin 500 mg IV daily. 05/29 Sputum cx: nl jorge l, 05/28 nasal washing negative for Influenza. Check sputum cx HEME: Monitor CBC ENDO: Diabetes mellitus Medium dose Insulin sliding scale with bedside glucose every 6 hours PROPH: Heparin subcutaneous for DVT prophylaxis. Protonix 40 mg IV daily for stress ulcer prophylaxis. Doppler US LE negative for DVT ACCESS: Peripheral IV providing adequate access at this time. Left AV fistula accessed for hemodialysis Full code Discussed with MRI MANAGER. Palliative care is following Critical care time 30 minutes exclusive of separately billable procedures. Deloris Campuzano MD Jun 04, 2016 08:30
[2016-06-04] MEDS: cloNIDine HCL 0.1 MG TAB PO SCH ×3 (08:31→17:35)
[2016-06-04] MEDS: ASPIRIN EC 81 MG TABEC PO SCH (08:31)
[2016-06-04] MEDS: hydrALAZINE HCL 25 MG TAB PO SCH ×3 (08:31→17:35)
[2016-06-04 09:29] LABS: BLOOD GAS BASE EXCESS 5.5 mmol/L (-2-2); BLOOD GAS CARBOXYHEMOGLOBIN 1.6 % (0-4); BLOOD GAS HCO3 29 mmol/L (22-26); BLOOD GAS METHEMOGLOBIN 1.1 % (0-2); BLOOD GAS O2 HGB SATURATION 96 % (90-100); BLOOD GAS PCO2 40 mmHg (38-42); BLOOD GAS PO2 101 mmHg (61-120); BLOOD GAS TOTAL HGB 12.6 G/DL (12.0-16.0); CRITICAL VALUE NO; OXYGEN DEVICE VENT; TEMP CORR TO 98.6
[2016-06-04 09:30] LABS: DRAW SITE RT RADIAL; FIO2 35 %; NUMBER OF ARTERIAL PUNCTURES 1; STAT NO; ULNAR PULSE PRESENT; VENT SETTINGS AC/12/500/5PEEP
[2016-06-04 11:58] LABS: BASOPHIL # 0.1 TH/MM3 (0-0.2); EOSINOPHIL # 0.2 TH/MM3 (0-0.4); EOSINOPHIL % 3.8 % (0.0-4.0); HEMATOCRIT 41.4 % (39.0-51.0); LYMPHOCYTE # 0.8 TH/MM3 (1.0-4.8); MEAN CORPUSCULAR HEMOGLOBIN 30.9 PG (27.0-34.0); MEAN CORPUSCULAR HGB CONC 33.2 % (32.0-36.0); MONO % 23.9 % (0.0-8.0); NEUT % 56.3 % (16.0-70.0); PLATELET COUNT 88 TH/MM3 (150-450); RED BLOOD COUNT 4.45 MIL/MM3 (4.50-5.90); WHITE BLOOD COUNT 5.3 TH/MM3 (4.0-11.0)
[2016-06-04 12:03] LABS: HEMO FLAGS AUTO DIFF
[2016-06-04] MEDS: GELATIN 12 MM/7 MM FOAM TOP PRN (12:05)
[2016-06-04] MEDS: SODIUM CHLOR 0.9% 1000 ML INJ 1,000 ML IV PRN (12:05)
--- NOTE | 2016-06-04 13:02 | HHI.NPPN ---
Subjective General Problems: Anemia Renal Failure: Chronic, End Stage Renal Disease Review of Systems General General Remarks unable to evaluate due to intubation/sedation Objective Data Data 06/03/16 06/04/16 19:00 07:00 Intake Total 754 ml 1333 ml Output Total 0 ml 50 ml Balance 754 ml 1283 ml IV Total 288 ml 985 ml Tube Feeding 466 ml 348 ml Output Urine Total 0 ml Stool Total 50 ml # Voids 0 # Bowel Movements 3 Vital Signs Date Time Temp Pulse Resp B/P Pulse Ox O2 Delivery O2 Flow Rate FiO2 06/04/16 12:00 35 06/04/16 12:00 98.0 71 12 124/65 100 06/04/16 12:00 71 06/04/16 10:00 75 06/04/16 08:27 100 35 06/04/16 08:00 98.5 82 12 113/60 100 06/04/16 08:00 82 06/04/16 08:00 35 06/04/16 06:00 70 06/04/16 04:41 100 35 06/04/16 04:00 98.8 70 14 118/61 98 06/04/16 04:00 35 06/04/16 04:00 70 06/04/16 02:00 73 06/04/16 01:28 100 35 06/04/16 00:00 35 06/04/16 00:00 97.9 73 16 131/68 96 06/04/16 00:00 73 06/03/16 22:00 86 06/03/16 21:38 98 35 06/03/16 20:00 98.8 81 12 130/71 100 06/03/16 20:00 80 06/03/16 20:00 35 06/03/16 18:00 71 06/03/16 16:55 97 35 06/03/16 16:00 35 06/03/16 16:00 97.7 73 24 141/71 100 06/03/16 16:00 73 06/03/16 14:00 71 -: 06/04/16 1109 06/04/16 0534 Tubes & Lines Comment ETT, OG tube Drip Comment Fentanyl Physical Exam General Appearance: Well Developed, No Acute Distress Eyes Eye Exam: Pupils Equal, Pupils Reactive Neck Neck Exam: Neck Supple Pulmonary Resp Exam: Clear Bilaterally, Breath Sounds Equal Cardiology CV Exam: Regular, Normal Sinus Rhythm Gastrointestinal/Abdomen GI Exam: Soft, Non-Tender, Non-Distended Genitourinary Exam: Clear Urine Musculoskeletal MS Exam: Joints Intact, Normal Tone Integumentary Skin Exam: Clear, Warm, Dry, Intact Extremeties Extremities Exam: No Edema, Pedal Pulses Palpable Neurologic Neuro Exam: Unresponsive, Sedated Assessment/Plan Discussed Condition With: Patient, Relative Assessment Summary: Anemia of CKD, Hypertension, End Stage Renal Disease Electrolyte Assessment: Hypocalcemia Problem List: (1) ESRD on dialysis Plan: Converting to usual --Mon HD schedule dialyzed today on a 3K, 350 BFR, goal 2 L Potassium remains acceptable, no evidence of fluid overload Has AVF left arm, monitor function Continue Calcium acetate through feeding tube for metabolic bone disease No Epogen required (2) Hypertension Plan: BP is acceptable. He is on metoprolol, hydralazine, clonidine (3) DM (diabetes mellitus) Plan: continue insulin coverage goal to maintain blood glucose between 140 and 180 (4) Hyperkalemia Plan: corrected with dialysis, monitor for recurrence (5) NSTEMI (non-ST elevated myocardial infarction) Plan: Troponin I elevated post cardiac arrest, chest compressions. he had catheterization in January 2016, normal coronary arteries (6) Elevated LFTs Plan: Liver US: ? acute cholelithiasis may need additional scans (7) Cocaine abuse Plan: cessation advised Willy Arellano MD Jun 04, 2016 13:02
[2016-06-04 13:28] LABS: PLATELET ESTIMATE SMEAR LOW (NORMAL); PLATELET MORPHOLOGY ENLARGED (NORMAL); SCAN/DIFF AUTO DIFF CONFIRMED
[2016-06-04] MEDS: AZITHROMYCIN INJ 500 MG in SODIUM CHLOR 0.9% 250 ML INJ 250 ML IV SCH (15:18)
[2016-06-04] MEDS ORDERED: DEXTROSE 50% IN WATER 50 ML VIAL(D50) IV PUSH ONE (16:00)
[2016-06-05] VITALS (18 sets, daily range): BP systolic 94–152; BP diastolic 53–83; PULSE 68–115; RESP 12–14; TEMP 97.9–98.5; O2SAT 99–100
[2016-06-05] MEDS: LORazepam 2 MG/ML VIAL IV PUSH PRN ×3 (01:14→17:51)
[2016-06-05] MEDS: PIPERACIL-TAZO 2.25 GM PREMIX 50 ML IV SCH ×4 (01:14→23:41)
[2016-06-05] MEDS: INSULIN NovoLIN REGULAR SUPPLEMENTAL SCALE SQ SCH ×4 (03:00→20:05)
[2016-06-05] MEDS: CHLORHEXIDINE GLUCONATE 2 % 1 PACK (2 CLOTHS) TOP SCH (04:00)
[2016-06-05] MEDS: HEPARIN SODIUM - SQ 10,000 UNITS/ML VIAL SQ SCH ×3 (05:35→20:05)
[2016-06-05] MEDS: METOPROLOL TARTRATE 25 MG TAB PO/NG SCH ×5 (05:35→23:31)
[2016-06-05 07:08] LABS: AUTOMATED NEUTROPHIL # 3.2 TH/MM3 (1.8-7.7); BASOPHIL % 0.9 % (0.0-2.0); EOSINOPHIL # 0.1 TH/MM3 (0-0.4); EOSINOPHIL % 1.8 % (0.0-4.0); HEMATOCRIT 37.5 % (39.0-51.0); LYMPH % 9.9 % (9.0-44.0); LYMPHOCYTE # 0.5 TH/MM3 (1.0-4.8); MEAN CORPUSCULAR HGB CONC 32.6 % (32.0-36.0); MONO % 16.5 % (0.0-8.0); NEUT % 70.9 % (16.0-70.0); PLATELET COUNT 96 TH/MM3 (150-450); RED BLOOD COUNT 4.08 MIL/MM3 (4.50-5.90); WHITE BLOOD COUNT 4.6 TH/MM3 (4.0-11.0)
[2016-06-05 07:31] LABS: BICARBONATE 29.8 MEQ/L (21.0-32.0); POTASSIUM 3.6 MEQ/L (3.5-5.1)
[2016-06-05 07:59] LABS: HEMO FLAGS AUTO DIFF
--- NOTE | 2016-06-05 08:13 | HHI.CCPN ---
Subjective Remarks/Hospital Course 05/28: 60 yo AAM with PMH of HTN, stroke without residual deficit, DM, nonischemic cardiomyopathy (EF 40% and stage I diastolic dysfunction) Cocaine abuse, Hepatitis C, ESRD on HD T/R/Sat who presents to [facility] [place] [facility] for 2 day history of SOB. He reported symptoms started 1/ after he received hemodialysis. He reported a nonproductive cough without fevers, chills, or chest pain. His workup revealed a normal white count and CXR that demonstrated RLL consolidation. His potassium was 6.8. While preparations were being made to administer medications to address his hyperkalemia he developed bradycardia and PEA arrest. He underwent CPR and received epinephrine and 1 amp of bicarbonate. It was return of spontaneous circulation after 8 minutes. He was intubated by the emergency department physician Dr. Clancy. Dr. Francisco with nephrology was consulted and he made arrangements for urgent dialysis which is taking place currently. Target removal 3.8 L per HD RN. Postintubation CXR demonstrates R base infiltrate but also appears there is right pleural effusion. Influenza screen negative. Receive Zosyn and azithromycin in the emergency department. 05/29: Sedated, arousable, not following commands, orally intubated on mechanical ventilation. Gets agitated on lightening sedation and has a strong gag reflex. 05/30: Sedated, arousable, not following commands. Remains orally intubated on mechanical ventilation. Failed C Pap trial today. Dialyzed earlier. 05/31: Sedated/encephalopathic on lightening sedation, not following commands. Remains orally intubated on mechanical ventilation. Failed C Pap trials yesterday. 2-D echo just being completed today. 06/01 No events overnight. On Precedex drip unresponsive and doesn't follow commands. Afebrile. 06/02 Patient s/p HD yesterday with removal 1.5L , on Precedex infusion for sedation. 06/03 No events overnight. Sedated with fentanyl and intubated. s/p HD yesterday with removal 1.5L. 06/04 Patient remains sedated and intubated. Afebrile. Did not tolerate CPAP trials yesterday as he became tachypneic. 06/05 Patient s/p HD yesterday with removal 2L. Sedated with Fentanyl and intubated. Afebrile. Patient gets very agitated and restless when sedation is weaned off. Objective Vital Signs Date Time Temp Pulse Resp B/P Pulse Ox O2 Delivery O2 Flow Rate FiO2 06/05/16 06:00 92 06/05/16 04:19 100 35 06/05/16 04:00 97.9 14 152/81 Intake and Output 06/04/16 06/04/16 06/05/16 08:00 16:00 00:00 Intake Total 637 ml 779 ml Output Total 2000 ml Balance 637 ml -2000 ml 779 ml Result Diagram: 06/05/16 0630 06/05/16 0630 Other Results Laboratory Tests Test 06/04/16 06/04/16 06/05/16 09:20 11:09 06:30 Blood Gas Puncture Site RT RADIAL Blood Gas Patient Temperature 98.6 Blood Gas HCO3 29 mmol/L Blood Gas Base Excess 5.5 mmol/L Blood Gas Oxygen Saturation 96 % Arterial Blood pH 7.48 Arterial Blood Partial 40 mmHg Pressure CO2 Arterial Blood Partial 101 mmHg Pressure O2 Arterial Blood Oxygen Content 17.0 Vol % Arterial Blood 1.6 % Carboxyhemoglobin Arterial Blood Methemoglobin 1.1 % Blood Gas Hemoglobin 12.6 G/DL Oxygen Delivery Device VENT Blood Gas Ventilator Setting AC/12/500/5PEEP Blood Gas Inspired Oxygen 35 % White Blood Count 5.3 TH/MM3 4.6 TH/MM3 Red Blood Count 4.45 MIL/MM3 4.08 MIL/MM3 Hemoglobin 13.7 GM/DL 12.2 GM/DL Hematocrit 41.4 % 37.5 % Mean Corpuscular Volume 93.0 FL 92.0 FL Mean Corpuscular Hemoglobin 30.9 PG 30.0 PG Mean Corpuscular Hemoglobin 33.2 % 32.6 % Concent Red Cell Distribution Width 14.0 % 14.0 % Platelet Count 88 TH/MM3 96 TH/MM3 Mean Platelet Volume 11.4 FL 11.7 FL Neutrophils (%) (Auto) 56.3 % 70.9 % Lymphocytes (%) (Auto) 15.0 % 9.9 % Monocytes (%) (Auto) 23.9 % 16.5 % Eosinophils (%) (Auto) 3.8 % 1.8 % Basophils (%) (Auto) 1.0 % 0.9 % Neutrophils # (Auto) 3.0 TH/MM3 3.2 TH/MM3 Lymphocytes # (Auto) 0.8 TH/MM3 0.5 TH/MM3 Monocytes # (Auto) 1.3 TH/MM3 0.8 TH/MM3 Eosinophils # (Auto) 0.2 TH/MM3 0.1 TH/MM3 Basophils # (Auto) 0.1 TH/MM3 0.0 TH/MM3 CBC Comment AUTO DIFF AUTO DIFF Differential Comment AUTO DIFF CONFIRMED Platelet Estimate LOW Platelet Morphology Comment ENLARGED Sodium Level 140 MEQ/L Potassium Level 3.6 MEQ/L Chloride Level 97 MEQ/L Carbon Dioxide Level 29.8 MEQ/L Anion Gap 13 MEQ/L Blood Urea Nitrogen 36 MG/DL Creatinine 6.62 MG/DL Estimat Glomerular Filtration 10 ML/MIN Rate Random Glucose 110 MG/DL Calcium Level 8.8 MG/DL Imaging Last Impressions Chest X-Ray 06/04/16 0000 Signed Impressions: Service Date/Time: Saturday, June 04, 2016 03:23 - CONCLUSION: 1. Cardiomegaly. Right lower lobe atelectasis versus pneumonia. There has been no significant change when compared to the prior exam. Lauro Dumont MD Liver Ultrasound 06/01/16 0000 Signed Impressions: Service Date/Time: Wednesday, June 01, 2016 15:38 - CONCLUSION: 1. Bilateral pleural effusions. 2. Thick-walled gallbladder with minimal pericholecystic fluid. If there is clinical concern for acute cholecystitis a hepatobiliary scan may be helpful to confirm cystic duct obstruction. 3. Minimal ascites. 4. Echogenic atrophic right kidney. 5. Mild nonspecific prominence of the main pancreatic duct. Enzo Price MD Head CT 05/29/16 0000 Signed Impressions: Service Date/Time: Sunday, May 29, 2016 03:03 - CONCLUSION: Age- appropriate atrophy, stable from prior in September 2015. No acute findings. Earnest Torre MD Lower Extremity Ultrasound 05/28/16 0000 Signed Impressions: Service Date/Time: Saturday, May 28, 2016 22:27 - CONCLUSION: Negative for deep venous thrombosis bilateral lower extremity. Earnest Torre MD Objective Remarks GENERAL: Patient is 60 yo intubated and sedated. SKIN: Warm and dry. HEAD: Normocephalic. EYES: No scleral icterus. No injection or drainage. NECK: Supple, trachea midline. No JVD or lymphadenopathy. CARDIOVASCULAR: Regular rate and rhythm without murmurs, gallops, or rubs. RESPIRATORY: Breath sounds equal bilaterally. No accessory muscle use. GASTROINTESTINAL: Abdomen soft, non-tender, nondistended. MUSCULOSKELETAL: No cyanosis, or edema. Neuro: Intubated, unresponsive. A/P Assessment and Plan NEURO: Acute encephalopathy, post cardiac arrest. History of stroke without residual deficit (per friend's report) History of cocaine abuse On Fentanyl infusion for sedation. Daily sedation vacation, RASS -2. EEG showed mod. slowing, possible focus for epileptic activity Neuro is following-Dr. Wilks RESP: Acute respiratory failure Healthcare associated pneumonia Intubated in ED 05/28/16 following cardiac arrest Continue with vent support keep sat >92% Duoneb q6 hours. Albuterol 2 prn. Ventilator Bundle. Daily SBT as leana CV: Cardiac arrest, secondary to hyperkalemia Nonischemic cardiomyopathy secondary to HTN, cocaine abuse Hypertension Elevated Troponin: ? NSTEMI Monitor HR and BP keep MAP>65mmHg Continue home meds: Hydralazine 25 tid. Clonidine 0.1 tid., Lopressor 25mg Q6 ASA 81 mg daily. Mild troponin elevation in setting of ESRD. Echo 05/31: EF 25-30%, no RWMA cardiac cath 12/09/2012 - EF 40%, normal coronaries. Elevated troponin, cardiac arrest cardiology is following-no intervention planned. GI: Hepatitis C Elevated LFT Continue TF-Nepro@40ml/hr Monitor LFT's: Trending down US liver: Bilateral pleural effusions. Thick-walled gallbladder with minimal pericholecystic fluid. Minimal ascites. Echogenic atrophic right kidney. Mild nonspecific prominence of the main pancreatic duct. FEN/RENAL: ESRD Acute severe hyperkalemia Intermittent hemodialysis per nephrology (Dr. Francisco) Emergent HD 05/28 due to potassium of 6.8 with bradycardia and cardiac arrest Monitor renal function, I/O's, avoid nephrotoxins. s/p HD yesterday 2L removed. ID: Acute healthcare associated pneumonia Received Zosyn and azithromycin in the emergency department 05/28. On Zosyn 2.25 g IV every 8 hours dosed for pneumonia/ESRD. Azithromycin 500 mg IV daily. 05/29 Sputum cx: nl jorge l, 05/28 nasal washing negative for Influenza. Check sputum cx HEME: Monitor CBC ENDO: Diabetes mellitus Medium dose Insulin sliding scale with bedside glucose every 6 hours PROPH: Heparin subcutaneous for DVT prophylaxis. Protonix 40 mg IV daily for stress ulcer prophylaxis. Doppler US LE negative for DVT ACCESS: Peripheral IV providing adequate access at this time. Left AV fistula accessed for hemodialysis Full code Discussed with INSIDE UPHOLSTERER. Palliative care is following Critical care time 30 minutes exclusive of separately billable procedures. Deloris Campuzano MD Jun 05, 2016 08:13
[2016-06-05] MEDS: CHLORHEXIDINE 0.12% (ORAL KIT) 15 ML CUP MT SCH ×2 (08:46→20:04)
[2016-06-05] MEDS: PANTOPRAZOLE SODIUM 40 MG VIAL IV SCH (09:00)
[2016-06-05] MEDS: DOCUSATE SODIUM 100 MG CAP PO SCH ×2 (09:00→20:05)
[2016-06-05] MEDS: CALCIUM ACETATE 667 MG CAP NG SCH ×3 (09:03→17:50)
[2016-06-05] MEDS: cloNIDine HCL 0.1 MG TAB PO SCH ×3 (09:03→17:50)
[2016-06-05] MEDS: hydrALAZINE HCL 25 MG TAB PO SCH ×3 (09:05→17:50)
[2016-06-05] MEDS: SODIUM CHLORIDE 0.9% FLUSH 5 ML FLUSH IV FLUSH SCH ×2 (09:06→20:04)
[2016-06-05] MEDS: ASPIRIN EC 81 MG TABEC PO SCH (09:06)
[2016-06-05] MEDS: fentaNYL DRIP 250 ML IV SCH ×2 (09:08→17:56)
[2016-06-05 10:40] LABS: PLATELET ESTIMATE SMEAR LOW (NORMAL); PLATELET MORPHOLOGY ENLARGED (NORMAL); SCAN/DIFF AUTO DIFF CONFIRMED
--- NOTE | 2016-06-05 11:59 | HHI.NPPN ---
Subjective General Problems: Anemia Renal Failure: Chronic, End Stage Renal Disease Review of Systems General General Remarks unable to evaluate due to intubation/sedation Objective Data Data 06/04/16 06/05/16 19:00 07:00 Intake Total 1542 ml Output Total 2000 ml Balance -2000 ml 1542 ml IV Total 1216 ml Tube Feeding 326 ml Hemodialysis 2000 ml # Voids 0 # Bowel Movements 2 Vital Signs Date Time Temp Pulse Resp B/P Pulse Ox O2 Delivery O2 Flow Rate FiO2 06/05/16 10:00 72 06/05/16 09:06 35 06/05/16 09:03 100 35 06/05/16 08:00 35 06/05/16 08:00 98.1 71 12 146/83 100 06/05/16 08:00 71 06/05/16 06:00 92 06/05/16 04:19 100 35 06/05/16 04:00 35 06/05/16 04:00 98 06/05/16 04:00 97.9 98 14 152/81 99 06/05/16 02:00 115 06/05/16 00:00 35 06/05/16 00:00 98.1 76 12 94/53 100 06/05/16 00:00 76 06/04/16 23:55 100 35 06/04/16 22:00 74 06/04/16 20:00 74 06/04/16 20:00 98.0 74 11 110/56 100 06/04/16 20:00 35 06/04/16 19:36 100 35 06/04/16 18:00 75 06/04/16 16:26 100 35 06/04/16 16:00 75 06/04/16 16:00 98.0 76 12 100/56 100 06/04/16 16:00 35 06/04/16 14:00 74 06/04/16 12:00 35 06/04/16 12:00 98.0 71 12 124/65 100 06/04/16 12:00 71 -: 06/05/16 0630 06/05/16 0630 Tubes & Lines Comment ETT, OG tube Drip Comment Fentanyl Physical Exam General Appearance: Well Developed, No Acute Distress Eyes Eye Exam: Pupils Equal, Pupils Reactive Neck Neck Exam: Neck Supple Pulmonary Resp Exam: Clear Bilaterally, Breath Sounds Equal Cardiology CV Exam: Regular, Normal Sinus Rhythm Gastrointestinal/Abdomen GI Exam: Soft, Non-Tender, Non-Distended Genitourinary Exam: Clear Urine Musculoskeletal MS Exam: Joints Intact, Normal Tone Integumentary Skin Exam: Clear, Warm, Dry, Intact Extremeties Extremities Exam: No Edema, Pedal Pulses Palpable Neurologic Neuro Exam: Unresponsive, Sedated Assessment/Plan Discussed Condition With: Patient, Relative Assessment Summary: Anemia of CKD, Hypertension, End Stage Renal Disease Electrolyte Assessment: Hypocalcemia Problem List: (1) ESRD on dialysis Plan: T-Th-Mon HD schedule dialyzed yesterday 2 L Potassium remains acceptable, no evidence of fluid overload Has AVF left arm, monitor function Continue Calcium acetate through feeding tube for metabolic bone disease No Epogen required (2) Hypertension Plan: BP is acceptable. He is on metoprolol, hydralazine, clonidine (3) DM (diabetes mellitus) Plan: continue insulin coverage goal to maintain blood glucose between 140 and 180 (4) Hyperkalemia Plan: corrected with dialysis, monitor for recurrence (5) NSTEMI (non-ST elevated myocardial infarction) Plan: Troponin I elevated post cardiac arrest, chest compressions. he had catheterization in January 2016, normal coronary arteries (6) Elevated LFTs Plan: Liver US: ? acute cholelithiasis may need additional scans (7) Cocaine abuse Plan: cessation advised Willy Arellano MD Jun 05, 2016 11:59
[2016-06-05] MEDS: AZITHROMYCIN INJ 500 MG in SODIUM CHLOR 0.9% 250 ML INJ 250 ML IV SCH (15:13)
[2016-06-05] MEDS: PROPOFOL 1000 MG/100 ML INJ 100 ML IV SCH (20:05)
[2016-06-06] VITALS (19 sets, daily range): BP systolic 122–144; BP diastolic 60–78; PULSE 73–103; RESP 10–12; TEMP 98–98.7; O2SAT 97–100
[2016-06-06] MEDS: fentaNYL DRIP 250 ML IV SCH ×3 (01:36→17:21)
[2016-06-06] MEDS: INSULIN NovoLIN REGULAR SUPPLEMENTAL SCALE SQ SCH ×4 (02:26→20:40)
[2016-06-06] MEDS: CHLORHEXIDINE GLUCONATE 2 % 1 PACK (2 CLOTHS) TOP SCH (03:12)
[2016-06-06] MEDS: HEPARIN SODIUM - SQ 10,000 UNITS/ML VIAL SQ SCH ×3 (05:09→20:41)
[2016-06-06] MEDS: METOPROLOL TARTRATE 25 MG TAB PO/NG SCH ×3 (05:09→17:21)
[2016-06-06 07:41] LABS: AUTOMATED NEUTROPHIL # 4.7 TH/MM3 (1.8-7.7); BASOPHIL # 0.1 TH/MM3 (0-0.2); BASOPHIL % 0.7 % (0.0-2.0); EOSINOPHIL # 0.2 TH/MM3 (0-0.4); EOSINOPHIL % 2.8 % (0.0-4.0); LYMPH % 12.8 % (9.0-44.0); LYMPHOCYTE # 0.9 TH/MM3 (1.0-4.8); MEAN CELL VOLUME 93.2 FL (80.0-100.0); MEAN CORPUSCULAR HGB CONC 32.2 % (32.0-36.0); NEUT % 64.7 % (16.0-70.0); PLATELET COUNT 94 TH/MM3 (150-450); RED CELL DISTRIBUTION WIDTH 14.1 % (11.6-17.2); WHITE BLOOD COUNT 7.3 TH/MM3 (4.0-11.0)
[2016-06-06 07:50] LABS: HEMO FLAGS AUTO DIFF
[2016-06-06 07:51] LABS: ALKALINE PHOSPHATASE 80 U/L (45-117); ALT (GPT) 51 U/L (12-78); ANION GAP 12 MEQ/L (5-15); AST (GOT) 67 U/L (15-37); BICARBONATE 27.8 MEQ/L (21.0-32.0); BLOOD UREA NITROGEN 44 MG/DL (7-18); CHLORIDE 97 MEQ/L (98-107); GLOMERULAR FILTRATION RATE 9 ML/MIN (>89); POTASSIUM 3.9 MEQ/L (3.5-5.1); SODIUM (NA) 137 MEQ/L (136-145); TOTAL BILIRUBIN ADULT 0.6 MG/DL (0.2-1.0)
--- NOTE | 2016-06-06 07:52 | HHI.CCPN ---
Subjective Remarks/Hospital Course 05/28: 60 yo AAM with PMH of HTN, stroke without residual deficit, DM, nonischemic cardiomyopathy (EF 40% and stage I diastolic dysfunction) Cocaine abuse, Hepatitis C, ESRD on HD T/R/Sat who presents [place] [facility] for 2 day history of SOB. He reported symptoms started 1/ after he received hemodialysis. He reported a nonproductive cough without fevers, chills, or chest pain. His workup revealed a normal white count and CXR that demonstrated RLL consolidation. His potassium was 6.8. While preparations were being made to administer medications to address his hyperkalemia he developed bradycardia and PEA arrest. He underwent CPR and received epinephrine and 1 amp of bicarbonate. It was return of spontaneous circulation after 8 minutes. He was intubated by the emergency department physician Dr. Clancy. Dr. Francisco with nephrology was consulted and he made arrangements for urgent dialysis which is taking place currently. Target removal 3.8 L per HD RN. Postintubation CXR demonstrates R base infiltrate but also appears there is right pleural effusion. Influenza screen negative. Receive Zosyn and azithromycin in the emergency department. 05/29: Sedated, arousable, not following commands, orally intubated on mechanical ventilation. Gets agitated on lightening sedation and has a strong gag reflex. 05/30: Sedated, arousable, not following commands. Remains orally intubated on mechanical ventilation. Failed C Pap trial today. Dialyzed earlier. 05/31: Sedated/encephalopathic on lightening sedation, not following commands. Remains orally intubated on mechanical ventilation. Failed C Pap trials yesterday. 2-D echo just being completed today. 06/01 No events overnight. On Precedex drip unresponsive and doesn't follow commands. Afebrile. 06/02 Patient s/p HD yesterday with removal 1.5L , on Precedex infusion for sedation. 06/03 No events overnight. Sedated with fentanyl and intubated. s/p HD yesterday with removal 1.5L. 06/04 Patient remains sedated and intubated. Afebrile. Did not tolerate CPAP trials yesterday as he became tachypneic. 06/05 Patient s/p HD yesterday with removal 2L. Sedated with Fentanyl and intubated. Afebrile. Patient gets very agitated and restless when sedation is weaned off. 06/06 Patient is sedated with Fentanyl placed on Diprivan as well last night. Gets agitated and tachypneic on CPAP trials. s/p HD yesterday with removal 2L. Objective Vital Signs Date Time Temp Pulse Resp B/P Pulse Ox O2 Delivery O2 Flow Rate FiO2 06/06/16 06:00 78 06/06/16 04:00 35 06/06/16 04:00 98.2 12 132/64 98 Intake and Output 06/05/16 06/05/16 06/06/16 08:00 16:00 00:00 Intake Total 763 ml 710 ml 510 ml Balance 763 ml 710 ml 510 ml Result Diagram: 06/05/1662906/05/16629 Imaging Last Impressions Chest X-Ray 06/04/16 0000 Signed Impressions: Service Date/Time: Saturday, June 04, 2016 03:23 - CONCLUSION: 1. Cardiomegaly. Right lower lobe atelectasis versus pneumonia. There has been no significant change when compared to the prior exam. Lauro Dumont MD Liver Ultrasound 06/01/16 0000 Signed Impressions: Service Date/Time: Wednesday, June 01, 2016 15:38 - CONCLUSION: 1. Bilateral pleural effusions. 2. Thick-walled gallbladder with minimal pericholecystic fluid. If there is clinical concern for acute cholecystitis a hepatobiliary scan may be helpful to confirm cystic duct obstruction. 3. Minimal ascites. 4. Echogenic atrophic right kidney. 5. Mild nonspecific prominence of the main pancreatic duct. Enzo Price MD Head CT 05/29/16 0000 Signed Impressions: Service Date/Time: Sunday, May 29, 2016 03:03 - CONCLUSION: Age- appropriate atrophy, stable from prior in September 2015. No acute findings. Earnest Torre MD Lower Extremity Ultrasound 05/28/16 0000 Signed Impressions: Service Date/Time: Saturday, May 28, 2016 22:27 - CONCLUSION: Negative for deep venous thrombosis bilateral lower extremity. Earnest Torre MD Objective Remarks GENERAL: Patient is 60 yo intubated and sedated. SKIN: Warm and dry. HEAD: Normocephalic. EYES: No scleral icterus. No injection or drainage. NECK: Supple, trachea midline. No JVD or lymphadenopathy. CARDIOVASCULAR: Regular rate and rhythm without murmurs, gallops, or rubs. RESPIRATORY: Breath sounds equal bilaterally. No accessory muscle use. GASTROINTESTINAL: Abdomen soft, non-tender, nondistended. MUSCULOSKELETAL: No cyanosis, or edema. Neuro: Intubated, unresponsive. A/P Assessment and Plan NEURO: Acute encephalopathy, post cardiac arrest. History of stroke without residual deficit (per friend's report) History of cocaine abuse On Fentanyl, Diprivan infusion for sedation. Daily sedation vacation, RASS -2. EEG showed mod. slowing, possible focus for epileptic activity Neuro is following-Dr. Wilks RESP: Acute respiratory failure Healthcare associated pneumonia Intubated in ED 05/28/16 following cardiac arrest Continue with vent support keep sat >92% Duoneb q6 hours. Albuterol 2 prn. Ventilator Bundle. Daily SBT as leana. Patient has been intubated since 05/28 patient will likely need trach if family desires aggressive care. CV: Cardiac arrest, secondary to hyperkalemia Nonischemic cardiomyopathy secondary to HTN, cocaine abuse Hypertension Elevated Troponin: ? NSTEMI Monitor HR and BP keep MAP>65mmHg Continue home meds: Hydralazine 25 tid. Clonidine 0.1 tid., Lopressor 25mg Q6 ASA 81 mg daily. Mild troponin elevation in setting of ESRD. Echo 05/31: EF 25-30%, no RWMA cardiac cath 12/09/2012 - EF 40%, normal coronaries. Elevated troponin, cardiac arrest cardiology is following-no intervention planned. GI: Hepatitis C Elevated LFT Continue TF-Nepro@40ml/hr Monitor LFT's: Trending down US liver: Bilateral pleural effusions. Thick-walled gallbladder with minimal pericholecystic fluid. Minimal ascites. Echogenic atrophic right kidney. Mild nonspecific prominence of the main pancreatic duct. FEN/RENAL: ESRD Acute severe hyperkalemia Intermittent hemodialysis per nephrology (Dr. Francisco) Emergent HD 05/28 due to potassium of 6.8 with bradycardia and cardiac arrest Monitor renal function, I/O's, avoid nephrotoxins. s/p HD yesterday 2L removed. ID: Acute healthcare associated pneumonia Received Zosyn and azithromycin in the emergency department 05/28. On Zosyn 2.25 g IV every 8 hours dosed for pneumonia/ESRD. d/c Azithromycin ( has been on Azithromycin since 05/29) 05/29 Sputum cx: nl jorge l, 05/28 nasal washing negative for Influenza. Follow up on sputum cx HEME: Monitor CBC ENDO: Diabetes mellitus Medium dose Insulin sliding scale with bedside glucose every 6 hours PROPH: Heparin subcutaneous for DVT prophylaxis. Protonix 40 mg IV daily for stress ulcer prophylaxis. Doppler US LE negative for DVT ACCESS: Peripheral IV providing adequate access at this time. Left AV fistula accessed for hemodialysis Full code Palliative care is following Critical care time 30 minutes exclusive of separately billable procedures. Deloris Campuzano MD Jun 06, 2016 07:51
[2016-06-06] MEDS: SODIUM CHLORIDE 0.9% FLUSH 5 ML FLUSH IV FLUSH SCH ×2 (09:00→20:40)
[2016-06-06 09:12] LABS: PLATELET ESTIMATE SMEAR LOW (NORMAL)
[2016-06-06 09:13] LABS: PLATELET MORPHOLOGY ENLARGED (NORMAL); SCAN/DIFF AUTO DIFF CONFIRMED
[2016-06-06] MEDS: CALCIUM ACETATE 667 MG CAP NG SCH ×3 (09:28→17:21)
[2016-06-06] MEDS: ASPIRIN EC 81 MG TABEC PO SCH (09:28)
[2016-06-06] MEDS: cloNIDine HCL 0.1 MG TAB PO SCH ×3 (09:28→17:21)
[2016-06-06] MEDS: DOCUSATE SODIUM 100 MG CAP PO SCH ×2 (09:28→20:40)
[2016-06-06] MEDS: PANTOPRAZOLE SODIUM 40 MG VIAL IV SCH (09:28)
[2016-06-06] MEDS: hydrALAZINE HCL 25 MG TAB PO SCH ×3 (09:28→17:21)
--- NOTE | 2016-06-06 09:41 | HHI.NPPN ---
Subjective General Problems: Anemia Renal Failure: Chronic, End Stage Renal Disease Additional Remarks Patient remain on the vent. and sedated. Review of Systems General General Remarks unable to evaluate due to intubation/sedation Objective Data Data 06/05/16 06/06/16 19:00 07:00 Intake Total 710 ml 1229 ml Balance 710 ml 1229 ml IV Total 480 ml 865 ml Tube Feeding 230 ml 364 ml # Voids 1 # Bowel Movements 1 1 Vital Signs Date Time Temp Pulse Resp B/P Pulse Ox O2 Delivery O2 Flow Rate FiO2 06/06/16 09:00 100 35 06/06/16 06:00 78 06/06/16 04:00 35 06/06/16 04:00 81 06/06/16 04:00 98.2 81 12 132/64 98 06/06/16 03:49 100 35 06/06/16 02:00 74 06/06/16 00:47 100 35 06/06/16 00:00 35 06/06/16 00:00 77 06/06/16 00:00 98.0 77 12 133/69 97 06/05/16 22:00 72 06/05/16 21:40 100 35 06/05/16 20:00 75 06/05/16 20:00 35 06/05/16 20:00 98.1 75 12 114/60 99 06/05/16 19:30 100 50 06/05/16 18:00 82 06/05/16 16:13 100 35 06/05/16 16:00 98.4 83 12 130/65 100 06/05/16 16:00 89 06/05/16 16:00 35 06/05/16 14:00 92 06/05/16 12:38 100 35 06/05/16 12:00 68 06/05/16 12:00 98.5 68 12 114/62 100 06/05/16 12:00 35 06/05/16 10:00 72 -: 06/06/16 0503 06/06/16 0503 Microbiology 06/05/16 Gram Stain, Received Pending 06/05/16 Sputum Culture, Received Pending Tubes & Lines Comment ETT, OG tube Drip Comment Fentanyl Physical Exam General Appearance Remarks Sedated and intubated. Eyes Eye Exam: Pupils Equal, Pupils Reactive Neck Neck Exam: Neck Supple Pulmonary Resp Exam: Breath Sounds Equal, No Distress, Rhonchi, Decreased Bases, Diminished Breath Sounds Cardiology CV Exam: Regular, Normal Sinus Rhythm Gastrointestinal/Abdomen GI Exam: Soft, Non-Tender, Non-Distended Extremeties Extremities Exam: Trace Edema Neurologic Neuro Exam: Unresponsive, Sedated Assessment/Plan Discussed Condition With: Patient, Relative Assessment Summary: Anemia of CKD, Hypertension, End Stage Renal Disease Electrolyte Assessment: Hypocalcemia Problem List: (1) ESRD on dialysis Plan: T-Th-Sat HD schedule Has AVF left arm, monitor function HD was done Monday and next will be in AM. (2) Hypertension Plan: BP is acceptable. He is on metoprolol, hydralazine, clonidine (3) DM (diabetes mellitus) Plan: continue insulin coverage goal to maintain blood glucose between 140 and 180 (4) Hyperkalemia Plan: corrected with dialysis, monitor for recurrence (5) NSTEMI (non-ST elevated myocardial infarction) Plan: Troponin I elevated post cardiac arrest, chest compressions. he had catheterization in January 2016, normal coronary arteries (6) Elevated LFTs Plan: Liver US: ? acute cholelithiasis may need additional scans (7) Cocaine abuse Plan: cessation advised Problem Qualifiers (1) Hypertension: Qualified Code: I10 - Essential hypertension (2) DM (diabetes mellitus): Severo Peck MD Jun 06, 2016 09:41
[2016-06-06] MEDS: PIPERACIL-TAZO 2.25 GM PREMIX 50 ML IV SCH ×2 (09:57→17:21)
[2016-06-06] MEDS: CHLORHEXIDINE 0.12% (ORAL KIT) 15 ML CUP MT SCH ×2 (11:28→20:40)
--- NOTE | 2016-06-06 13:03 | HHI.HCPN ---
Reason for visit a. To assist with evaluation and management of symptoms including: dyspnea, encephalopathy b. To assist medical decision maker(s) with: better understanding of current medical conditions; weighing benefits/burdens of medical treatment options; making medical treatment decisions. (Blank Coronel) Subjective/Interval History Patient seen today to follow-up on comfort , goals with decision makers. Pt has remained in ICU, on/off sedation on mech vent. Has had ongoing CPAP trials-- not tolerating due to tachypnea/agitation. has been on fentanyl for sedation. This am sedation off to assess neuro/cpap trial- - nursing reports severe agitation off sedation-- resumed diprivan and fentanyl (250mcgs/hr) just before my arrival. No new imaging today, CXR Monday indicated no significant changes, continued right lower lobe atelectasis versus pneumonia. If continues to be unable to wean medically during the course of this week will likely require tracheostomy for ongoing aggressive treatments. Sputum from 05/29 positive strep, non-group A. Repeat sputum from yesterday 06/05 pending. CBC, chemistry today not significantly changed from prior lab values. Chronic hemodialysis, due for hemodialysis tomorrow, last dialysis Monday. Discussed with nurse, critical care Dr. Campuzano. Nursing to notify me when significant other/HCP arrives. (Blank Coronel) Advance Directives Living Will: Never completed Health Care Surrogate: Never completed Durable Power of Microchip Specialist: Never completed (Blank Coronel) Objective Vital Signs Date Time Temp Pulse Resp B/P Pulse Ox O2 Delivery O2 Flow Rate FiO2 06/06/16 12:29 100 35 06/06/16 12:00 98.5 79 10 122/60 100 06/06/16 12:00 35 06/06/16 12:00 78 06/06/16 10:00 75 06/06/16 09:00 100 35 06/06/16 08:00 74 06/06/16 08:00 98.6 74 12 127/62 100 06/06/16 08:00 35 06/06/16 06:00 78 06/06/16 04:00 35 06/06/16 04:00 81 06/06/16 04:00 98.2 81 12 132/64 98 06/06/16 03:49 100 35 06/06/16 02:00 74 06/06/16 00:47 100 35 06/06/16 00:00 35 06/06/16 00:00 77 06/06/16 00:00 98.0 77 12 133/69 97 06/05/16 22:00 72 06/05/16 21:40 100 35 06/05/16 20:00 75 06/05/16 20:00 35 06/05/16 20:00 98.1 75 12 114/60 99 06/05/16 19:30 100 50 06/05/16 18:00 82 06/05/16 16:13 100 35 06/05/16 16:00 98.4 83 12 130/65 100 06/05/16 16:00 89 06/05/16 16:00 35 06/05/16 14:00 92 Intake & Output 06/06/16 06/06/16 07:00 19:00 Intake Total 1229 ml Balance 1229 ml IV Total 865 ml Tube Feeding 364 ml # Voids 1 # Bowel Movements 1 Physical Exam CONSTITUTIONAL/GENERAL: This is an adequately nourished patient, in no apparent distress, sedated on mechanical vent TUBES/LINES/DRAINS: PIV x 2 RUE, OGT, ETT, restraints BUE , BLE CARDIOVASCULAR: Regular rate and rhythm without murmurs. peripheral pulses symmetric. RESPIRATORY/CHEST: Symmetric, unlabored respirations via ETT to access [facility] [place] vent. Clear to auscultation. GASTROINTESTINAL: Abdomen soft, nondistended. No hepato-splenomegaly, or palpable masses. Bowel sounds hypoactive. TF infusing via OGT. + 3 palpable, nodular , mobile firm masses to abdomen (? r/t Sq heparin) NEUROLOGICAL: sedated on mech vent-- limited assessment. No eye opening. Withdraws/localizes to pain stimuli on 4 extremities. Does not follow any commands, on sedation. Restraints 4. PSYCHIATRIC: Limited assessment due to clinical conditionno apparent distress during my exam though nursing reports agitation just prior to my arrival (Blank Coronel) Diagnostic Tests Laboratory Laboratory Tests Test 06/04/16 06/04/16 06/04/16 06/05/16 05:34 09:20 11:09 06:30 Sodium Level 139 MEQ/L 140 MEQ/L (136-145) (136-145) Potassium Level 4.4 MEQ/L 3.6 MEQ/L (3.5-5.1) (3.5-5.1) Chloride Level 96 MEQ/L 97 MEQ/L (98-107) (98-107) Carbon Dioxide Level 29.9 MEQ/L 29.8 MEQ/L (21.0-32.0) (21.0-32.0) Anion Gap 13 MEQ/L (5-15) 13 MEQ/L (5-15) Blood Urea Nitrogen 44 MG/DL (7-18) 36 MG/DL (7-18) Creatinine 7.64 MG/DL 6.62 MG/DL (0.60-1.30) (0.60-1.30) Estimat Glomerular Filtration 9 ML/MIN (>89) 10 ML/MIN (>89) Rate Random Glucose 77 MG/DL 110 MG/DL (74-106) (74-106) Calcium Level 9.0 MG/DL 8.8 MG/DL (8.5-10.1) (8.5-10.1) Total Bilirubin 0.7 MG/DL (0.2-1.0) Aspartate Amino Transf 94 U/L (15-37) (AST/SGOT) Alanine Aminotransferase 64 U/L (12-78) (ALT/SGPT) Alkaline Phosphatase 68 U/L (45-117) Total Protein 6.6 GM/DL (6.4-8.2) Albumin 2.0 GM/DL (3.4-5.0) Blood Gas Puncture Site RT RADIAL Blood Gas Patient Temperature 98.6 Blood Gas HCO3 29 mmol/L (22-26) Blood Gas Base Excess 5.5 mmol/L (-2-2) Blood Gas Oxygen Saturation 96 % (90-100) Arterial Blood pH 7.48 (7.380-7.420) Arterial Blood Partial 40 mmHg (38-42) Pressure CO2 Arterial Blood Partial 101 mmHg Pressure O2 (61-120) Arterial Blood Oxygen Content 17.0 Vol % (12.0-20.0) Arterial Blood 1.6 % (0-4) Carboxyhemoglobin Arterial Blood Methemoglobin 1.1 % (0-2) Blood Gas Hemoglobin 12.6 G/DL (12.0-16.0) Oxygen Delivery Device VENT Blood Gas Ventilator Setting AC/12/500/5PEEP Blood Gas Inspired Oxygen 35 % White Blood Count 5.3 TH/MM3 4.6 TH/MM3 (4.0-11.0) (4.0-11.0) Red Blood Count 4.45 MIL/MM3 4.08 MIL/MM3 (4.50-5.90) (4.50-5.90) Hemoglobin 13.7 GM/DL 12.2 GM/DL (13.0-17.0) (13.0-17.0) Hematocrit 41.4 % 37.5 % (39.0-51.0) (39.0-51.0) Mean Corpuscular Volume 93.0 FL 92.0 FL (80.0-100.0) (80.0-100.0) Mean Corpuscular Hemoglobin 30.9 PG 30.0 PG (27.0-34.0) (27.0-34.0) Mean Corpuscular Hemoglobin 33.2 % 32.6 % Concent (32.0-36.0) (32.0-36.0) Red Cell Distribution Width 14.0 % 14.0 % (11.6-17.2) (11.6-17.2) Platelet Count 88 TH/MM3 96 TH/MM3 (150-450) (150-450) Mean Platelet Volume 11.4 FL 11.7 FL (7.0-11.0) (7.0-11.0) Neutrophils (%) (Auto) 56.3 % 70.9 % (16.0-70.0) (16.0-70.0) Lymphocytes (%) (Auto) 15.0 % 9.9 % (9.0-44.0) (9.0-44.0) Monocytes (%) (Auto) 23.9 % 16.5 % (0.0-8.0) (0.0-8.0) Eosinophils (%) (Auto) 3.8 % (0.0-4.0) 1.8 % (0.0-4.0) Basophils (%) (Auto) 1.0 % (0.0-2.0) 0.9 % (0.0-2.0) Neutrophils # (Auto) 3.0 TH/MM3 3.2 TH/MM3 (1.8-7.7) (1.8-7.7) Lymphocytes # (Auto) 0.8 TH/MM3 0.5 TH/MM3 (1.0-4.8) (1.0-4.8) Monocytes # (Auto) 1.3 TH/MM3 0.8 TH/MM3 (0-0.9) (0-0.9) Eosinophils # (Auto) 0.2 TH/MM3 0.1 TH/MM3 (0-0.4) (0-0.4) Basophils # (Auto) 0.1 TH/MM3 0.0 TH/MM3 (0-0.2) (0-0.2) CBC Comment AUTO DIFF AUTO DIFF Differential Comment AUTO DIFF AUTO DIFF CONFIRMED CONFIRMED Platelet Estimate LOW (NORMAL) LOW (NORMAL) Platelet Morphology Comment ENLARGED ENLARGED (NORMAL) (NORMAL) Test 06/06/16 05:03 White Blood Count 7.3 TH/MM3 (4.0-11.0) Red Blood Count 4.30 MIL/MM3 (4.50-5.90) Hemoglobin 12.9 GM/DL (13.0-17.0) Hematocrit 40.0 % (39.0-51.0) Mean Corpuscular Volume 93.2 FL (80.0-100.0) Mean Corpuscular Hemoglobin 30.0 PG (27.0-34.0) Mean Corpuscular Hemoglobin 32.2 % Concent (32.0-36.0) Red Cell Distribution Width 14.1 % (11.6-17.2) Platelet Count 94 TH/MM3 (150-450) Mean Platelet Volume 11.4 FL (7.0-11.0) Neutrophils (%) (Auto) 64.7 % (16.0-70.0) Lymphocytes (%) (Auto) 12.8 % (9.0-44.0) Monocytes (%) (Auto) 19.0 % (0.0-8.0) Eosinophils (%) (Auto) 2.8 % (0.0-4.0) Basophils (%) (Auto) 0.7 % (0.0-2.0) Neutrophils # (Auto) 4.7 TH/MM3 (1.8-7.7) Lymphocytes # (Auto) 0.9 TH/MM3 (1.0-4.8) Monocytes # (Auto) 1.4 TH/MM3 (0-0.9) Eosinophils # (Auto) 0.2 TH/MM3 (0-0.4) Basophils # (Auto) 0.1 TH/MM3 (0-0.2) CBC Comment AUTO DIFF Differential Comment AUTO DIFF CONFIRMED Platelet Estimate LOW (NORMAL) Platelet Morphology Comment ENLARGED (NORMAL) Red Cell Morphology Comment NORMAL (NORMAL) Sodium Level 137 MEQ/L (136-145) Potassium Level 3.9 MEQ/L (3.5-5.1) Chloride Level 97 MEQ/L (98-107) Carbon Dioxide Level 27.8 MEQ/L (21.0-32.0) Anion Gap 12 MEQ/L (5-15) Blood Urea Nitrogen 44 MG/DL (7-18) Creatinine 7.83 MG/DL (0.60-1.30) Estimat Glomerular Filtration 9 ML/MIN (>89) Rate Random Glucose 90 MG/DL (74-106) Calcium Level 9.2 MG/DL (8.5-10.1) Total Bilirubin 0.6 MG/DL (0.2-1.0) Aspartate Amino Transf 67 U/L (15-37) (AST/SGOT) Alanine Aminotransferase 51 U/L (12-78) (ALT/SGPT) Alkaline Phosphatase 80 U/L (45-117) Total Protein 6.9 GM/DL (6.4-8.2) Albumin 2.0 GM/DL (3.4-5.0) (Blank Coronel) Result Diagram: 06/06/16 0503 06/06/16 0503 Microbiology Microbiology Date/Time Procedure Status Source Growth 06/05/16 11:35 Gram Stain - Final Resulted Sputum Endotracheal 06/05/16 11:35 Sputum Culture Resulted Sputum Endotracheal Pending Imaging Last Impressions Chest X-Ray 06/04/16 0000 Signed Impressions: Service Date/Time: Saturday, June 04, 2016 03:23 - CONCLUSION: 1. Cardiomegaly. Right lower lobe atelectasis versus pneumonia. There has been no significant change when compared to the prior exam. Lauro Dumont MD Liver Ultrasound 06/01/16 0000 Signed Impressions: Service Date/Time: Wednesday, June 01, 2016 15:38 - CONCLUSION: 1. Bilateral pleural effusions. 2. Thick-walled gallbladder with minimal pericholecystic fluid. If there is clinical concern for acute cholecystitis a hepatobiliary scan may be helpful to confirm cystic duct obstruction. 3. Minimal ascites. 4. Echogenic atrophic right kidney. 5. Mild nonspecific prominence of the main pancreatic duct. Enzo Price MD Head CT 05/29/16 0000 Signed Impressions: Service Date/Time: Sunday, May 29, 2016 03:03 - CONCLUSION: Age- appropriate atrophy, stable from prior in September 2015. No acute findings. Earnest Torre MD Lower Extremity Ultrasound 05/28/16 0000 Signed Impressions: Service Date/Time: Saturday, May 28, 2016 22:27 - CONCLUSION: Negative for deep venous thrombosis bilateral lower extremity. Earnest Torre MD (Blank Coronel [facility]) Assessment and Plan Disease Oriented Problem List: (1) Metabolic encephalopathy (2) ESRD on hemodialysis (3) Shortness of breath (4) Diabetes (5) CHF (congestive heart failure) (6) Elevated troponin level (7) Hepatitis C (8) Hyperkalemia, diminished renal excretion (9) Cardiac arrest (10) Hyperkalemia (11) Hypertension (12) NSTEMI (non-ST elevated myocardial infarction) (13) Elevated LFTs (14) Non-ischemic cardiomyopathy Symptom Scale: (1) Encephalopathy (2) Anxiety (3) Dyspnea Pertinent Non-Medical Issues Psychosocial:Per prior H&P by palliative 2013 (obtained from significant other Neema) patient born in [place] moves to [place] sometime in 2012 or . Parents are , patient has no siblings. He did serve in the though branch not known. He did have some connection with the [facility]. Disabled and not working for many years. Completed high school. 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 Has lived with significant other Neema Johnston for many years. Never reported to be . Has 1 son, 1 daughter who may live in the [place] area. Spiritual:Per prior admissions:He attends [employer]. 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 Legal:Patient currently unable to participate in decision-making due to clinical condition. Not clear if he will regain ability to participate, status post PEA arrest. Patient reported to have 2 adult children, never . Per [place] statutes these 2 adult children would be appropriate legal decision makers. He has a significant other of many years who has previously served as a proxy during hospital course as children were not able to be located during previous attempts. Would again attempt to locate any possible family members as the last attempt I'm aware of occurred in 2013, if unable to locate children then would proceed with significant other artery as healthcare proxy. [06.01.15-- requested case management assist with [employer] report to again attempt to locate possible children-- reported 06.02.15 no family located. ] Ethical issues impacting care: Important Contacts Neema Johnston significant other [phone] Prognosis This patient suffered PEA arrest during this admission likely secondary to hyperkalemia, end-stage renal disease on hemodialysis. He now remains on mechanical vent, encephalopathic. Condition is guarded. Possible he may wean and medically extubate however thus far not tolerating CPAP trials. May require tracheostomy and PEG for ongoing aggressive interventions. Appears likely he can survive current hospital course though he does remain at risk for complications/setbacks. Code Status: Full Code Plan * Legal decision maker: Patient currently unable to participate in decision- making due to clinical condition. Not clear if he will regain ability to participate, status post PEA arrest. Patient reported to have 2 adult children , never . Per [place] statutes these 2 adult children would be appropriate legal decision makers. He has a significant other of many years who has previously served as a proxy during hospital course as children were not able to be located during previous attempts. Would again attempt to locate any possible family members as the last attempt I'm aware of occurred in 2013, if unable to locate children then would proceed with significant other artery as healthcare proxy. * Goals: AGGRESSIVE. Met w sig other Neema and her brother 06/02/16-- Neema seems to have very limited understanding and limited insight to conditions. When I initially asked what the drs had told her about her sig other's condition she stated "that he was fine and all his tests were perfect, normal". Much review of conditions, diagnostics, clinical course thus far, underlying conditions. Goals thus far are aggressive. They feel they have seen pt respond purposefully to their visit. They have seen him recover from many acute issues before, including PEA arrest, and believe he could again recover. 06/03/16: explore with them that if going forward in the next days to week he does not show signs of improvement and weaning off the ventilator then they would have the option to proceed with tracheostomy and further aggressive interventions which may or may not help the patient eventually have more recovery, alternatively patient would have the option to transition to comfort focus and focus on relief of symptoms, comfort care via hospice with no further invasive measures. For now they want to continue to try to do everything in her praying that he will get better and come through this as he did once before. 06/06/16: awaiting family arrival. * CODE STATUS: Full code * SYMPTOMS: --Encephalopathy-status post PEA arrest with ROSC after approximately 8 minutes of CPR.+ encephalopathy per EEG. Neurology following, continue supportive care. Patient with prior PEA arrest episode and encephalopathy during prior admission 2013, eventually during hospital course had improvement in neurological status. --Dyspnea-emergently intubated for airway protection during PEA arrest; currently on mechanical vent not tolerating CPAP trials. May require tracheostomy/PEG if unable to wean, and if goals are aggressive. Currently requiring Diprivan and fentanyl, fentanyl 250 mics/hour--reported to be very agitated when held -Agitation/anxiety: Currently on mechanical vent, I be contributing, as well as encephalopathy 2/2 PEA arrest ; previously on Precedex drip, when sedation lightened not following but does become agitated--now on fentanyl drip with periods of agitation though for the most part comfortable on 50 mics/hour. We' ll continue to evaluate. * Palliative care will continue to follow during hospital course as condition evolves, to assist patient/decision-maker with understanding of medical conditions, weighing benefits/burdens of treatment options, for clarification of goals of treatment. Additionally will assist with any symptoms of palliative concern (Blank Coronel) Attestation To help prompt me to consider important information that might be impacting today's encounter and assessment, information from prior notes written by myself or my colleagues may have been "brought forward" into today's note. My signature on this note, however, is an attestation that I personally performed the exam, history, and/or decision-making noted today, and, unless otherwise indicated, the interactions with patient, family, and staff as well as the review of records all occurred today. I also attest that the listed assessment and stated plan reflect my best clinical judgment today based on the combination of historical information, prior notes, and today's exam/ interactions. When time spent is documented, it refers only to time spent today by the signer, or if indicated, combined time spent today by collaborating physician/nurse practitioner. (Blank Coronel) Collaborating MD Comments Chart reviewed. Case discussed with palliative care VICE PRESIDENT OF NURSING. Above VICE PRESIDENT OF NURSING note reviewed and I concur. . (Vu Lisa MD) Blank Coronel Jun 06, 2016 13:02 Vu Lisa MD Jul 09, 2016 14:54
[2016-06-06] MEDS: PROPOFOL 1000 MG/100 ML INJ 100 ML IV SCH (17:57)
[2016-06-07] VITALS (17 sets, daily range): BP systolic 109–131; BP diastolic 58–75; PULSE 64–100; RESP 8–12; TEMP 96.8–98.6; O2SAT 99–100
[2016-06-07] MEDS: PIPERACIL-TAZO 2.25 GM PREMIX 50 ML IV SCH ×4 (01:07→23:24)
[2016-06-07] MEDS: METOPROLOL TARTRATE 25 MG TAB PO/NG SCH ×5 (01:07→23:24)
[2016-06-07] MEDS: fentaNYL DRIP 250 ML IV SCH ×2 (02:41→19:56)
[2016-06-07] MEDS: INSULIN NovoLIN REGULAR SUPPLEMENTAL SCALE SQ SCH ×4 (02:41→19:56)
[2016-06-07] MEDS: CHLORHEXIDINE GLUCONATE 2 % 1 PACK (2 CLOTHS) TOP SCH (02:41)
[2016-06-07 06:11] LABS: AUTOMATED NEUTROPHIL # 3.1 TH/MM3 (1.8-7.7); BASOPHIL % 0.6 % (0.0-2.0); EOSINOPHIL # 0.1 TH/MM3 (0-0.4); EOSINOPHIL % 2.7 % (0.0-4.0); HEMATOCRIT 36.4 % (39.0-51.0); LYMPH % 13.9 % (9.0-44.0); LYMPHOCYTE # 0.7 TH/MM3 (1.0-4.8); MEAN CELL VOLUME 91.6 FL (80.0-100.0); MEAN CORPUSCULAR HEMOGLOBIN 30.2 PG (27.0-34.0); MEAN CORPUSCULAR HGB CONC 32.9 % (32.0-36.0); MONO % 19.1 % (0.0-8.0); NEUT % 63.7 % (16.0-70.0); PLATELET COUNT 98 TH/MM3 (150-450); RED BLOOD COUNT 3.97 MIL/MM3 (4.50-5.90); RED CELL DISTRIBUTION WIDTH 13.9 % (11.6-17.2); WHITE BLOOD COUNT 4.8 TH/MM3 (4.0-11.0)
[2016-06-07 06:14] LABS: HEMO FLAGS AUTO DIFF
--- NOTE | 2016-06-07 06:19 | RADRPT ---
EXAM DATE/TIME: 06/07/2016 04:28 [facility] COMPARISON: CHEST SINGLE AP, June 04, 2016, 3:23. INDICATIONS : Short of breath. MEDICAL HISTORY : Renal failure, chronic. Stroke. Myocardial infarction. SURGICAL HISTORY : None. ENCOUNTER: Subsequent ACUITY: 1 week PAIN SCORE: Non-responsive. LOCATION: Bilateral chest FINDINGS: Endotracheal tube is present with tip 9 cm above the josiane. Nasogastric tube descends to the stomach . Hazy bibasilar pleural-parenchymal opacities are increasing. Cardiac contours are grossly unchanged . CONCLUSION: Worsening aeration. Minh Silva MD on June 07, 2016 at 6:16 Board Certified Radiologist. This report was verified electronically.
[2016-06-07] MEDS: HEPARIN SODIUM - SQ 10,000 UNITS/ML VIAL SQ SCH ×3 (06:22→23:24)
[2016-06-07 06:37] LABS: ALKALINE PHOSPHATASE 72 U/L (45-117); ALT (GPT) 40 U/L (12-78); ANION GAP 13 MEQ/L (5-15); AST (GOT) 50 U/L (15-37); BICARBONATE 26.8 MEQ/L (21.0-32.0); BLOOD UREA NITROGEN 59 MG/DL (7-18); CHLORIDE 97 MEQ/L (98-107); GLOMERULAR FILTRATION RATE 7 ML/MIN (>89); SODIUM (NA) 137 MEQ/L (136-145); TOTAL BILIRUBIN ADULT 0.6 MG/DL (0.2-1.0)
[2016-06-07 07:42] LABS: OVALOCYTES 1+ (NORMAL); PLATELET ESTIMATE SMEAR LOW (NORMAL); PLATELET MORPHOLOGY ENLARGED (NORMAL); SCAN/DIFF AUTO DIFF CONFIRMED
[2016-06-07] MEDS: CHLORHEXIDINE 0.12% (ORAL KIT) 15 ML CUP MT SCH ×2 (07:56→19:55)
[2016-06-07] MEDS: PANTOPRAZOLE SODIUM 40 MG VIAL IV SCH (09:00)
[2016-06-07] MEDS: SODIUM CHLORIDE 0.9% FLUSH 5 ML FLUSH IV FLUSH SCH ×2 (09:20→19:55)
[2016-06-07] MEDS: hydrALAZINE HCL 25 MG TAB PO SCH ×3 (09:21→18:00)
[2016-06-07] MEDS: cloNIDine HCL 0.1 MG TAB PO SCH ×3 (09:21→18:00)
[2016-06-07] MEDS: ASPIRIN EC 81 MG TABEC PO SCH (09:21)
[2016-06-07] MEDS: CALCIUM ACETATE 667 MG CAP NG SCH ×3 (09:21→18:29)
[2016-06-07] MEDS: DOCUSATE SODIUM 100 MG CAP PO SCH ×2 (09:21→19:55)
--- NOTE | 2016-06-07 11:18 | HHI.CCPN ---
Subjective Remarks/Hospital Course 05/28: 60 yo AAM with PMH of HTN, stroke without residual deficit, DM, nonischemic cardiomyopathy (EF 40% and stage I diastolic dysfunction) Cocaine abuse, Hepatitis C, ESRD on HD T/R/Sat who presents to [facility] ED for 2 day history of SOB. He reported symptoms started 1/ after he received hemodialysis. He reported a nonproductive cough without fevers, chills, or chest pain. His workup revealed a normal white count and CXR that demonstrated RLL consolidation. His potassium was 6.8. While preparations were being made to administer medications to address his hyperkalemia he developed bradycardia and PEA arrest. He underwent CPR and received epinephrine and 1 amp of bicarbonate. It was return of spontaneous circulation after 8 minutes. He was intubated by the emergency department physician Dr. Clancy. Dr. Francisco with nephrology was consulted and he made arrangements for urgent dialysis which is taking place currently. Target removal 3.8 L per HD RN. Postintubation CXR demonstrates R base infiltrate but also appears there is right pleural effusion. Influenza screen negative. Receive Zosyn and azithromycin in the emergency department. 05/29: Sedated, arousable, not following commands, orally intubated on mechanical ventilation. Gets agitated on lightening sedation and has a strong gag reflex. 05/30: Sedated, arousable, not following commands. Remains orally intubated on mechanical ventilation. Failed C Pap trial today. Dialyzed earlier. 05/31: Sedated/encephalopathic on lightening sedation, not following commands. Remains orally intubated on mechanical ventilation. Failed C Pap trials yesterday. 2-D echo just being completed today. 06/01 No events overnight. On Precedex drip unresponsive and doesn't follow commands. Afebrile. 06/02 Patient s/p HD yesterday with removal 1.5L , on Precedex infusion for sedation. 06/03 No events overnight. Sedated with fentanyl and intubated. s/p HD yesterday with removal 1.5L. 06/04 Patient remains sedated and intubated. Afebrile. Did not tolerate CPAP trials yesterday as he became tachypneic. 06/05 Patient s/p HD yesterday with removal 2L. Sedated with Fentanyl and intubated. Afebrile. Patient gets very agitated and restless when sedation is weaned off. 06/06 Patient is sedated with Fentanyl placed on Diprivan as well last night. Gets agitated and tachypneic on CPAP trials. s/p HD yesterday with removal 2L. 06/07: Remains sedated/encephalopathic, orally intubated on mechanical ventilation. Failed C Pap trials yesterday. Objective Vital Signs Date Time Temp Pulse Resp B/P Pulse Ox O2 Delivery O2 Flow Rate FiO2 06/07/16 10:00 64 06/07/16 08:48 100 35 06/07/16 08:00 97.9 12 117/63 Intake and Output 06/06/16 06/06/16 06/07/16 08:00 16:00 00:00 Intake Total 719 ml 670 ml 1385 ml Balance 719 ml 670 ml 1385 ml Result Diagram: 06/07/16 0544 06/07/16 0544 Other Results Microbiology Date/Time Procedure Status Source Growth 06/05/16 11:35 Gram Stain - Final Complete Sputum Endotracheal 06/05/16 11:35 Sputum Culture - Final Complete Sputum Endotracheal MODERATE GROWTH NORMAL RESPIRATORY JORGE L Imaging Last Impressions Chest X-Ray 06/04/16 0000 Signed Impressions: Service Date/Time: Saturday, June 04, 2016 03:23 - CONCLUSION: 1. Cardiomegaly. Right lower lobe atelectasis versus pneumonia. There has been no significant change when compared to the prior exam. Lauro Dumont MD Liver Ultrasound 06/01/16 0000 Signed Impressions: Service Date/Time: Wednesday, June 01, 2016 15:38 - CONCLUSION: 1. Bilateral pleural effusions. 2. Thick-walled gallbladder with minimal pericholecystic fluid. If there is clinical concern for acute cholecystitis a hepatobiliary scan may be helpful to confirm cystic duct obstruction. 3. Minimal ascites. 4. Echogenic atrophic right kidney. 5. Mild nonspecific prominence of the main pancreatic duct. Enzo Price MD Head CT 05/29/16 0000 Signed Impressions: Service Date/Time: Sunday, May 29, 2016 03:03 - CONCLUSION: Age- appropriate atrophy, stable from prior in September 2015. No acute findings. Earnest Torre MD Lower Extremity Ultrasound 05/28/16 0000 Signed Impressions: Service Date/Time: Saturday, May 28, 2016 22:27 - CONCLUSION: Negative for deep venous thrombosis bilateral lower extremity. Earnest Torre MD Objective Remarks GENERAL: Patient is 60 yo intubated and sedated. SKIN: Warm and dry. HEAD: Normocephalic. EYES: No scleral icterus. No injection or drainage. NECK: Supple, trachea midline. No JVD or lymphadenopathy. CARDIOVASCULAR: Regular rate and rhythm without murmurs, gallops, or rubs. RESPIRATORY: Breath sounds equal bilaterally. No accessory muscle use. GASTROINTESTINAL: Abdomen soft, non-tender, nondistended. MUSCULOSKELETAL: No cyanosis, or edema. Neuro: Intubated, unresponsive. A/P Assessment and Plan NEURO: Acute encephalopathy, post cardiac arrest. History of stroke without residual deficit (per friend's report) History of cocaine abuse On Fentanyl, Diprivan infusion for sedation. Daily sedation vacation, Sedated/encephalopathic EEG showed mod. slowing, possible focus for epileptic activity Neuro is following-Dr. Wilks RESP: Acute respiratory failure Healthcare associated pneumonia Intubated in ED 05/28/16 following cardiac arrest Continue with vent support keep sat >92% Duoneb q6 hours. Albuterol 2 prn. Ventilator Bundle. Daily SBT as leana. Patient has been intubated since 05/28 patient will likely need trach if family desires aggressive care. CV: Cardiac arrest, secondary to hyperkalemia Nonischemic cardiomyopathy secondary to HTN, cocaine abuse Hypertension Elevated Troponin: ? NSTEMI Monitor HR and BP keep MAP>65mmHg Continue home meds: Hydralazine 25 tid. Clonidine 0.1 tid., Lopressor 25mg Q6 ASA 81 mg daily. Mild troponin elevation in setting of ESRD. Echo 05/31: EF 25-30%, no RWMA cardiac cath 12/09/2012 - EF 40%, normal coronaries. Elevated troponin, cardiac arrest cardiology is following-no intervention planned. GI: Hepatitis C Elevated LFT Continue TF-Nepro@40ml/hr Monitor LFT's: Trending down US liver: Bilateral pleural effusions. Thick-walled gallbladder with minimal pericholecystic fluid. Minimal ascites. Echogenic atrophic right kidney. Mild nonspecific prominence of the main pancreatic duct. FEN/RENAL: ESRD Acute severe hyperkalemia Intermittent hemodialysis per nephrology (Dr. Francisco) Emergent HD 05/28 due to potassium of 6.8 with bradycardia and cardiac arrest Monitor renal function, I/O's, avoid nephrotoxins. s/p HD yesterday 2L removed. ID: Acute healthcare associated pneumonia Received Zosyn and azithromycin in the emergency department 05/28. On Zosyn 2.25 g IV every 8 hours dosed for pneumonia/ESRD. d/c Azithromycin ( has been on Azithromycin since 05/29) 05/29 Sputum cx: nl jorge l, 05/28 nasal washing negative for Influenza. Follow up on sputum cx HEME: Monitor CBC ENDO: Diabetes mellitus Medium dose Insulin sliding scale with bedside glucose every 6 hours PROPH: Heparin subcutaneous for DVT prophylaxis. Protonix 40 mg IV daily for stress ulcer prophylaxis. Doppler US LE negative for DVT ACCESS: Peripheral IV providing adequate access at this time. Left AV fistula accessed for hemodialysis Full code Palliative care is following Critical care time 30 minutes exclusive of separately billable procedures. Rojas Fonseca MD Jun 07, 2016 11:18
--- NOTE | 2016-06-07 12:19 | HHI.HCPN ---
Reason for visit a. To assist with evaluation and management of symptoms including: dyspnea, encephalopathy b. To assist medical decision maker(s) with: better understanding of current medical conditions; weighing benefits/burdens of medical treatment options; making medical treatment decisions. (Blank Coronel) Subjective/Interval History Patient seen today to follow-up on comfort , goals with decision makers. Received a Voicemail from significant other/proxy requesting update before arrival to unit. Pt has remained in ICU, requiring sedation and mechanical vent. Just initiating CPAP trial today at my assessment.(Apneic at time of my exam still on low-dose fentanyl) Labs stable, unremarkable. Repeat sputum 06/05 with normal respiratory jorge l. CXR today with worsening aeration. Has had ongoing CPAP trials-- not tolerating due to tachypnea/agitation. Due for dialysis today. Patient seen in room with no visitors present. He does still seem to localize and withdraw to touch to all 4 extremities no eye opening to my exam or to pain stimuli.+ Continues respirations on CPAP however also with periods of apnea. Following exam call back to significant other Ms Johnston, voicemail left. Discussed with nurse, critical care, respiratory bedside. Nursing to notify me when significant other/HCP arrives. (Blank Coronel) Advance Directives Living Will: Never completed Health Care Surrogate: Never completed Durable Power of Rate Manager: Never completed (Blank Coronel) Objective Vital Signs Date Time Temp Pulse Resp B/P Pulse Ox O2 Delivery O2 Flow Rate FiO2 06/07/16 11:52 100 35 06/07/16 11:52 35 06/07/16 10:00 64 06/07/16 08:48 100 35 06/07/16 08:00 35 06/07/16 08:00 69 06/07/16 08:00 97.9 69 12 117/63 100 06/07/16 06:00 68 06/07/16 04:00 64 06/07/16 04:00 96.8 64 12 119/58 100 06/07/16 04:00 100 35 06/07/16 04:00 35 06/07/16 02:00 64 06/07/16 01:15 100 35 06/07/16 00:00 64 06/07/16 00:00 35 06/07/16 00:00 98.5 64 12 115/60 100 06/06/16 22:25 100 35 06/06/16 22:00 91 06/06/16 20:00 35 06/06/16 20:00 103 06/06/16 20:00 98.7 103 12 144/78 100 06/06/16 19:45 100 35 06/06/16 18:00 73 06/06/16 16:00 92 06/06/16 16:00 98.6 74 12 128/71 100 06/06/16 16:00 35 06/06/16 15:49 100 35 06/06/16 14:00 74 06/06/16 12:29 100 35 Intake & Output 06/07/16 06/07/16 06:59 18:59 Intake Total 1712 ml Balance 1712 ml Intake Oral 0 ml IV Total 1393 ml Tube Feeding 319 ml # Voids 1 # Bowel Movements 3 Physical Exam CONSTITUTIONAL/GENERAL: This is an adequately nourished patient, in no apparent distress, sedated on mechanical vent TUBES/LINES/DRAINS: PIV x 2 RUE, OGT, ETT, restraints BUE , BLE CARDIOVASCULAR: Regular rate and rhythm without murmurs. peripheral pulses symmetric. RESPIRATORY/CHEST: Symmetric, unlabored respirations via E[facility] to [facility] vent. Clear to auscultation. GASTROINTESTINAL: Abdomen soft, nondistended. No hepato-splenomegaly, or palpable masses. Bowel sounds hypoactive. TF infusing via OGT. + 3 palpable, nodular , mobile firm masses to abdomen (? r/t Sq heparin) NEUROLOGICAL: sedated on mech vent-- limited assessment. No eye opening. Withdraws/localizes to pain stimuli on 4 extremities. Does not follow any commands, on sedation. Restraints 4. PSYCHIATRIC: Limited assessment due to clinical conditionno apparent distress during my exam though nursing reports agitation just prior to my arrival (Blank Coronel) Diagnostic Tests Laboratory Laboratory Tests Test 06/05/16 06/06/16 06/07/16 06:30 05:03 05:44 White Blood Count 4.6 TH/MM3 7.3 TH/MM3 4.8 TH/MM3 (4.0-11.0) (4.0-11.0) (4.0-11.0) Red Blood Count 4.08 MIL/MM3 4.30 MIL/MM3 3.97 MIL/MM3 (4.50-5.90) (4.50-5.90) (4.50-5.90) Hemoglobin 12.2 GM/DL 12.9 GM/DL 12.0 GM/DL (13.0-17.0) (13.0-17.0) (13.0-17.0) Hematocrit 37.5 % 40.0 % 36.4 % (39.0-51.0) (39.0-51.0) (39.0-51.0) Mean Corpuscular Volume 92.0 FL 93.2 FL 91.6 FL (80.0-100.0) (80.0-100.0) (80.0-100.0) Mean Corpuscular Hemoglobin 30.0 PG 30.0 PG 30.2 PG (27.0-34.0) (27.0-34.0) (27.0-34.0) Mean Corpuscular Hemoglobin 32.6 % 32.2 % 32.9 % Concent (32.0-36.0) (32.0-36.0) (32.0-36.0) Red Cell Distribution Width 14.0 % 14.1 % 13.9 % (11.6-17.2) (11.6-17.2) (11.6-17.2) Platelet Count 96 TH/MM3 94 TH/MM3 98 TH/MM3 (150-450) (150-450) (150-450) Mean Platelet Volume 11.7 FL 11.4 FL 11.0 FL (7.0-11.0) (7.0-11.0) (7.0-11.0) Neutrophils (%) (Auto) 70.9 % 64.7 % 63.7 % (16.0-70.0) (16.0-70.0) (16.0-70.0) Lymphocytes (%) (Auto) 9.9 % 12.8 % 13.9 % (9.0-44.0) (9.0-44.0) (9.0-44.0) Monocytes (%) (Auto) 16.5 % 19.0 % 19.1 % (0.0-8.0) (0.0-8.0) (0.0-8.0) Eosinophils (%) (Auto) 1.8 % (0.0-4.0) 2.8 % (0.0-4.0) 2.7 % (0.0-4.0) Basophils (%) (Auto) 0.9 % (0.0-2.0) 0.7 % (0.0-2.0) 0.6 % (0.0-2.0) Neutrophils # (Auto) 3.2 TH/MM3 4.7 TH/MM3 3.1 TH/MM3 (1.8-7.7) (1.8-7.7) (1.8-7.7) Lymphocytes # (Auto) 0.5 TH/MM3 0.9 TH/MM3 0.7 TH/MM3 (1.0-4.8) (1.0-4.8) (1.0-4.8) Monocytes # (Auto) 0.8 TH/MM3 1.4 TH/MM3 0.9 TH/MM3 (0-0.9) (0-0.9) (0-0.9) Eosinophils # (Auto) 0.1 TH/MM3 0.2 TH/MM3 0.1 TH/MM3 (0-0.4) (0-0.4) (0-0.4) Basophils # (Auto) 0.0 TH/MM3 0.1 TH/MM3 0.0 TH/MM3 (0-0.2) (0-0.2) (0-0.2) CBC Comment AUTO DIFF AUTO DIFF AUTO DIFF Differential Comment AUTO DIFF AUTO DIFF AUTO DIFF CONFIRMED CONFIRMED CONFIRMED Platelet Estimate LOW (NORMAL) LOW (NORMAL) LOW (NORMAL) Platelet Morphology Comment ENLARGED ENLARGED ENLARGED (NORMAL) (NORMAL) (NORMAL) Sodium Level 140 MEQ/L 137 MEQ/L 137 MEQ/L (136-145) (136-145) (136-145) Potassium Level 3.6 MEQ/L 3.9 MEQ/L 4.0 MEQ/L (3.5-5.1) (3.5-5.1) (3.5-5.1) Chloride Level 97 MEQ/L 97 MEQ/L 97 MEQ/L (98-107) (98-107) (98-107) Carbon Dioxide Level 29.8 MEQ/L 27.8 MEQ/L 26.8 MEQ/L (21.0-32.0) (21.0-32.0) (21.0-32.0) Anion Gap 13 MEQ/L (5-15) 12 MEQ/L (5-15) 13 MEQ/L (5-15) Blood Urea Nitrogen 36 MG/DL (7-18) 44 MG/DL (7-18) 59 MG/DL (7-18) Creatinine 6.62 MG/DL 7.83 MG/DL 9.18 MG/DL (0.60-1.30) (0.60-1.30) (0.60-1.30) Estimat Glomerular Filtration 10 ML/MIN (>89) 9 ML/MIN (>89) 7 ML/MIN (>89) Rate Random Glucose 110 MG/DL 90 MG/DL 91 MG/DL (74-106) (74-106) (74-106) Calcium Level 8.8 MG/DL 9.2 MG/DL 8.8 MG/DL (8.5-10.1) (8.5-10.1) (8.5-10.1) Red Cell Morphology Comment NORMAL (NORMAL) Total Bilirubin 0.6 MG/DL 0.6 MG/DL (0.2-1.0) (0.2-1.0) Aspartate Amino Transf 67 U/L (15-37) 50 U/L (15-37) (AST/SGOT) Alanine Aminotransferase 51 U/L (12-78) 40 U/L (12-78) (ALT/SGPT) Alkaline Phosphatase 80 U/L (45-117) 72 U/L (45-117) Total Protein 6.9 GM/DL 6.3 GM/DL (6.4-8.2) (6.4-8.2) Albumin 2.0 GM/DL 1.7 GM/DL (3.4-5.0) (3.4-5.0) Ovalocytes 1+ (NORMAL) (Blank Coronel) Result Diagram: 06/07/16 0544 06/07/1644 Microbiology Microbiology Date/Time Procedure Status Source Growth 06/05/16 11:35 Gram Stain - Final Complete Sputum Endotracheal 06/05/16 11:35 Sputum Culture - Final Complete Sputum Endotracheal MODERATE GROWTH NORMAL RESPIRATORY JORGE L (Blank Coronel) Assessment and Plan Disease Oriented Problem List: (1) Metabolic encephalopathy (2) ESRD on hemodialysis (3) Shortness of breath (4) Diabetes (5) CHF (congestive heart failure) (6) Elevated troponin level (7) Hepatitis C (8) Hyperkalemia, diminished renal excretion (9) Cardiac arrest (10) Hyperkalemia (11) Hypertension (12) NSTEMI (non-ST elevated myocardial infarction) (13) Elevated LFTs (14) Non-ischemic cardiomyopathy Symptom Scale: (1) Encephalopathy (2) Anxiety (3) Dyspnea Pertinent Non-Medical Issues Psychosocial:Per prior H&P by palliative 2013 (obtained from significant other Neema) patient born in [place] moves to [place] sometime in 2012 or . Parents are , patient has no siblings. He did serve in the though branch not known. He did have some connection with the [employer]. Disabled and not working for many years. Completed high school. 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 Has lived with significant other Neema Johnston for many years. Never reported to be . Has 1 son, 1 daughter who may live in the [place] area. Spiritual:Per prior admissions:He attends [facility]. 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 Legal:Patient currently unable to participate in decision-making due to clinical condition. Not clear if he will regain ability to participate, status post PEA arrest. Patient reported to have 2 adult children, never . Per [place] statutes these 2 adult children would be appropriate legal decision makers. He has a significant other of many years who has previously served as a proxy during hospital course as children were not able to be located during previous attempts. Would again attempt to locate any possible family members as the last attempt I'm aware of occurred in 2013, if unable to locate children then would proceed with significant other artery as healthcare proxy. [1..16-- requested case management assist with [employer] report to again attempt to locate possible children-- reported ..16 no family located. ] Ethical issues impacting care: Important Contacts Neema Preston significant other [phone]/ [phone] Prognosis This patient suffered PEA arrest during this admission likely secondary to hyperkalemia, end-stage renal disease on hemodialysis. He now remains on mechanical vent, encephalopathic. Condition is guarded. Possible he may wean and medically extubate however thus far not tolerating CPAP trials. May require tracheostomy and PEG for ongoing aggressive interventions. Appears likely he can survive current hospital course though he does remain at risk for complications/setbacks. Code Status: Full Code Plan * Legal decision maker: Patient currently unable to participate in decision- making due to clinical condition. Not clear if he will regain ability to participate, status post PEA arrest. Patient reported to have 2 adult children , never . Per [place] statutes these 2 adult children would be appropriate legal decision makers. He has a significant other of many years who has previously served as a proxy during hospital course as children were not able to be located during previous attempts. Would again attempt to locate any possible family members as the last attempt I'm aware of occurred in 2013, if unable to locate children then would proceed with significant other artery as healthcare proxy. * Goals: AGGRESSIVE. Met w sig other Neema and her brother 06/02/16-- Neema seems to have very limited understanding and limited insight to conditions. When I initially asked what the drs had told her about her sig other's condition she stated "that he was fine and all his tests were perfect, normal". Much review of conditions, diagnostics, clinical course thus far, underlying conditions. Goals thus far are aggressive. They feel they have seen pt respond purposefully to their visit. They have seen him recover from many acute issues before, including PEA arrest, and believe he could again recover. 06/03/16: explore with them that if going forward in the next days to week he does not show signs of improvement and weaning off the ventilator then they would have the option to proceed with tracheostomy and further aggressive interventions which may or may not help the patient eventually have more recovery, alternatively patient would have the option to transition to comfort focus and focus on relief of symptoms, comfort care via hospice with no further invasive measures. For now they want to continue to try to do everything in her praying that he will get better and come through this as he did once before. 06/07--voicemail left for significant other * CODE STATUS: Full code * SYMPTOMS: --Encephalopathy-status post PEA arrest with ROSC after approximately 8 minutes of CPR.+ encephalopathy per EEG. Neurology following, continue supportive care. Patient with prior PEA arrest episode and encephalopathy during prior admission 2013, eventually during hospital course had improvement in neurological status. --Dyspnea-emergently intubated for airway protection during PEA arrest; currently on mechanical vent not tolerating CPAP trials. May require tracheostomy/PEG if unable to wean, and if goals are aggressive. Currently requiring Diprivan and fentanyl, fentanyl 250 mics/hour--reported to be very agitated when held -Agitation/anxiety: Currently on mechanical vent, I be contributing, as well as encephalopathy 2/2 PEA arrest ; previously on Precedex drip, when sedation lightened not following but does become agitated--now on fentanyl drip with periods of agitation though for the most part comfortable on 50 mics/hour. We' ll continue to evaluate. * Palliative care will continue to follow during hospital course as condition evolves, to assist patient/decision-maker with understanding of medical conditions, weighing benefits/burdens of treatment options, for clarification of goals of treatment. Additionally will assist with any symptoms of palliative concern (Blank Coronel) Time Spent Total Floor Time (mins): 15 >50% Counseling/Coord of Care: Yes (discussed with RN, critical care) (Blank Coronel) Attestation To help prompt me to consider important information that might be impacting today's encounter and assessment, information from prior notes written by myself or my colleagues may have been "brought forward" into today's note. My signature on this note, however, is an attestation that I personally performed the exam, history, and/or decision-making noted today, and, unless otherwise indicated, the interactions with patient, family, and staff as well as the review of records all occurred today. I also attest that the listed assessment and stated plan reflect my best clinical judgment today based on the combination of historical information, prior notes, and today's exam/ interactions. When time spent is documented, it refers only to time spent today by the signer, or if indicated, combined time spent today by collaborating physician/nurse practitioner. (Blank Coronel) Collaborating MD Comments Chart reviewed. Case discussed with palliative care CHIEF SALES OFFICER. Above ASA note reviewed and I concur. . (Vu Lisa MD) Blank Coronel Jun 07, 2016 12:18 Vu Lisa MD Jul 10, 2016 07:38
[2016-06-07] MEDS: SODIUM CHLOR 0.9% 1000 ML INJ 1,000 ML IV PRN ×2 (12:36)
[2016-06-07] MEDS: GELATIN 12 MM/7 MM FOAM TOP PRN (12:38)
[2016-06-07] MEDS: PROPOFOL 1000 MG/100 ML INJ 100 ML IV SCH ×2 (14:45→23:25)
--- NOTE | 2016-06-07 18:46 | HHI.NPPN ---
Subjective General Problems: Anemia Renal Failure: Chronic, End Stage Renal Disease Additional Remarks Patient remain on the vent. and sedated, clinically same, seen after HD. Review of Systems General General Remarks unable to evaluate due to intubation/sedation Objective Data Data 06/06/16 06/07/16 19:00 07:00 Intake Total 670 ml 1712 ml Balance 670 ml 1712 ml Intake Oral 0 ml IV Total 447 ml 1393 ml Tube Feeding 223 ml 319 ml # Voids 1 1 # Bowel Movements 2 3 Vital Signs Date Time Temp Pulse Resp B/P Pulse Ox O2 Delivery O2 Flow Rate FiO2 06/07/16 18:00 85 06/07/16 17:35 100 35 06/07/16 16:00 35 06/07/16 16:00 85 06/07/16 16:00 98.2 97 8 120/60 100 06/07/16 14:00 100 06/07/16 12:00 86 06/07/16 12:00 97.5 86 10 131/75 100 06/07/16 12:00 35 06/07/16 11:52 100 35 06/07/16 11:52 35 06/07/16 10:00 64 06/07/16 08:48 100 35 06/07/16 08:00 35 06/07/16 08:00 69 06/07/16 08:00 97.9 69 12 117/63 100 06/07/16 06:00 68 06/07/16 04:00 64 06/07/16 04:00 96.8 64 12 119/58 100 06/07/16 04:00 100 35 06/07/16 04:00 35 06/07/16 02:00 64 06/07/16 01:15 100 35 06/07/16 00:00 64 06/07/16 00:00 35 06/07/16 00:00 98.5 64 12 115/60 100 06/06/16 22:25 100 35 06/06/16 22:00 91 06/06/16 20:00 35 06/06/16 20:00 103 06/06/16 20:00 98.7 103 12 144/78 100 06/06/16 19:45 100 35 -: 06/07/16 0544 06/07/16 0544 Tubes & Lines Comment ETT, OG tube Drip Comment Fentanyl Physical Exam General Appearance Remarks Sedated and intubated. Eyes Eye Exam: Pupils Equal, Pupils Reactive Neck Neck Exam: Neck Supple Pulmonary Resp Exam: Breath Sounds Equal, No Distress, Rhonchi, Decreased Bases, Diminished Breath Sounds Cardiology CV Exam: Regular, Normal Sinus Rhythm Gastrointestinal/Abdomen GI Exam: Soft, Non-Tender, Non-Distended Extremeties Extremities Exam: Trace Edema Neurologic Neuro Exam: Unresponsive, Sedated Assessment/Plan Discussed Condition With: Patient, Relative Assessment Summary: Anemia of CKD, Hypertension, End Stage Renal Disease Electrolyte Assessment: Hypocalcemia Problem List: (1) ESRD on dialysis Plan: T-Th-Sat HD schedule Has AVF left arm, monitor function HD was done in AM and 4 liters removed. Weaning as tolerated. (2) Hypertension Plan: BP is acceptable. He is on metoprolol, hydralazine, clonidine (3) DM (diabetes mellitus) Plan: continue insulin coverage goal to maintain blood glucose between 140 and 180 (4) Hyperkalemia Plan: corrected with dialysis, monitor for recurrence (5) NSTEMI (non-ST elevated myocardial infarction) Plan: Troponin I elevated post cardiac arrest, chest compressions. he had catheterization in January 2016, normal coronary arteries (6) Elevated LFTs Plan: Liver US: ? acute cholelithiasis may need additional scans (7) Cocaine abuse Plan: cessation advised Problem Qualifiers (1) Hypertension: Qualified Code: I10 - Essential hypertension (2) DM (diabetes mellitus): Severo Peck MD Jun 07, 2016 18:46
[2016-06-08] VITALS (18 sets, daily range): BP systolic 99–135; BP diastolic 57–73; PULSE 58–81; RESP 10–12; TEMP 94.1–98.4; O2SAT 100
[2016-06-08] MEDS: INSULIN NovoLIN REGULAR SUPPLEMENTAL SCALE SQ SCH ×4 (03:00→20:24)
[2016-06-08] MEDS: CHLORHEXIDINE GLUCONATE 2 % 1 PACK (2 CLOTHS) TOP SCH (04:00)
[2016-06-08] MEDS: HEPARIN SODIUM - SQ 10,000 UNITS/ML VIAL SQ SCH ×3 (05:37→20:24)
[2016-06-08] MEDS: METOPROLOL TARTRATE 25 MG TAB PO/NG SCH ×3 (06:26→17:04)
[2016-06-08] MEDS: CHLORHEXIDINE 0.12% (ORAL KIT) 15 ML CUP MT SCH ×2 (08:00→20:23)
[2016-06-08] MEDS: DOCUSATE SODIUM 100 MG CAP PO SCH ×2 (09:00→20:23)
[2016-06-08] MEDS: SODIUM CHLORIDE 0.9% FLUSH 5 ML FLUSH IV FLUSH SCH ×2 (09:00→20:23)
[2016-06-08] MEDS: ASPIRIN EC 81 MG TABEC PO SCH (09:44)
[2016-06-08] MEDS: cloNIDine HCL 0.1 MG TAB PO SCH ×3 (09:44→17:04)
[2016-06-08] MEDS: PANTOPRAZOLE SODIUM 40 MG VIAL IV SCH (09:44)
[2016-06-08] MEDS: PIPERACIL-TAZO 2.25 GM PREMIX 50 ML IV SCH ×2 (09:44→15:55)
[2016-06-08] MEDS: hydrALAZINE HCL 25 MG TAB PO SCH ×3 (09:45→17:04)
[2016-06-08] MEDS: CALCIUM ACETATE 667 MG CAP NG SCH ×3 (09:45→17:56)
[2016-06-08] MEDS ORDERED: fentaNYL DRIP 250 ML IV SCH (10:00)
--- NOTE | 2016-06-08 10:01 | HHI.CCPN ---
Subjective Remarks/Hospital Course 05/28: 60 yo AAM with PMH of HTN, stroke without residual deficit, DM, nonischemic cardiomyopathy (EF 40% and stage I diastolic dysfunction) Cocaine abuse, Hepatitis C, ESRD on HD T/R/Sat who presents to [facility] ED for 2 day history of SOB. He reported symptoms started 1/ after he received hemodialysis. He reported a nonproductive cough without fevers, chills, or chest pain. His workup revealed a normal white count and CXR that demonstrated RLL consolidation. His potassium was 6.8. While preparations were being made to administer medications to address his hyperkalemia he developed bradycardia and PEA arrest. He underwent CPR and received epinephrine and 1 amp of bicarbonate. It was return of spontaneous circulation after 8 minutes. He was intubated by the emergency department physician Dr. Clancy. Dr. Francisco with nephrology was consulted and he made arrangements for urgent dialysis which is taking place currently. Target removal 3.8 L per HD RN. Postintubation CXR demonstrates R base infiltrate but also appears there is right pleural effusion. Influenza screen negative. Receive Zosyn and azithromycin in the emergency department. 05/29: Sedated, arousable, not following commands, orally intubated on mechanical ventilation. Gets agitated on lightening sedation and has a strong gag reflex. 05/30: Sedated, arousable, not following commands. Remains orally intubated on mechanical ventilation. Failed C Pap trial today. Dialyzed earlier. 05/31: Sedated/encephalopathic on lightening sedation, not following commands. Remains orally intubated on mechanical ventilation. Failed C Pap trials yesterday. 2-D echo just being completed today. 06/01 No events overnight. On Precedex drip unresponsive and doesn't follow commands. Afebrile. 06/02 Patient s/p HD yesterday with removal 1.5L , on Precedex infusion for sedation. 06/03 No events overnight. Sedated with fentanyl and intubated. s/p HD yesterday with removal 1.5L. 06/04 Patient remains sedated and intubated. Afebrile. Did not tolerate CPAP trials yesterday as he became tachypneic. 06/05 Patient s/p HD yesterday with removal 2L. Sedated with Fentanyl and intubated. Afebrile. Patient gets very agitated and restless when sedation is weaned off. 06/06 Patient is sedated with Fentanyl placed on Diprivan as well last night. Gets agitated and tachypneic on CPAP trials. s/p HD yesterday with removal 2L. 06/07: Remains sedated/encephalopathic, orally intubated on mechanical ventilation. Failed C Pap trials yesterday. 06/08: Remains sedated/encephalopathic, orally intubated on mechanical ventilation. Gets agitated on lightening sedation however not following commands. We'll attempt Precedex and titrate down on fentanyl/propofol Objective Vital Signs Date Time Temp Pulse Resp B/P Pulse Ox O2 Delivery O2 Flow Rate FiO2 06/08/16 08:41 100 35 06/08/16 08:00 64 06/08/16 08:00 98.3 12 124/69 Intake and Output 06/07/16 06/07/16 06/08/16 08:00 16:00 00:00 Intake Total 327 ml 517 ml 558 ml Output Total 3000 ml Balance 327 ml -2483 ml 558 ml Result Diagram: 06/07/16 0544 06/07/16 0544 Other Results Microbiology Date/Time Procedure Status Source Growth 06/05/16 11:35 Gram Stain - Final Complete Sputum Endotracheal 06/05/16 11:35 Sputum Culture - Final Complete Sputum Endotracheal MODERATE GROWTH NORMAL RESPIRATORY JORGE L Imaging Last Impressions Chest X-Ray 06/04/16 0000 Signed Impressions: Service Date/Time: Saturday, June 04, 2016 03:23 - CONCLUSION: 1. Cardiomegaly. Right lower lobe atelectasis versus pneumonia. There has been no significant change when compared to the prior exam. Lauro Dumont MD Liver Ultrasound 06/01/16 0000 Signed Impressions: Service Date/Time: Wednesday, June 01, 2016 15:38 - CONCLUSION: 1. Bilateral pleural effusions. 2. Thick-walled gallbladder with minimal pericholecystic fluid. If there is clinical concern for acute cholecystitis a hepatobiliary scan may be helpful to confirm cystic duct obstruction. 3. Minimal ascites. 4. Echogenic atrophic right kidney. 5. Mild nonspecific prominence of the main pancreatic duct. Enzo Price MD Head CT 05/29/16 0000 Signed Impressions: Service Date/Time: Sunday, May 29, 2016 03:03 - CONCLUSION: Age- appropriate atrophy, stable from prior in September 2015. No acute findings. Earnest Torre MD Lower Extremity Ultrasound 05/28/16 0000 Signed Impressions: Service Date/Time: Saturday, May 28, 2016 22:27 - CONCLUSION: Negative for deep venous thrombosis bilateral lower extremity. Earnest Torre MD Objective Remarks GENERAL: Patient is 60 yo intubated and sedated. SKIN: Warm and dry. HEAD: Normocephalic. EYES: No scleral icterus. No injection or drainage. NECK: Supple, trachea midline. No JVD or lymphadenopathy. CARDIOVASCULAR: Regular rate and rhythm without murmurs, gallops, or rubs. RESPIRATORY: Breath sounds equal bilaterally. No accessory muscle use. GASTROINTESTINAL: Abdomen soft, non-tender, nondistended. MUSCULOSKELETAL: No cyanosis, or edema. Neuro: Intubated, sedated/encephalopathic, moves all 4 extremities, nonpurposeful, not following commands on lightening sedation but gets agitated. A/P Assessment and Plan NEURO: Acute encephalopathy, post cardiac arrest. History of stroke without residual deficit (per friend's report) History of cocaine abuse On Fentanyl, Diprivan infusion for sedation. Daily sedation vacation, added Precedex and mosque titrate down on propofol and fentanyl Sedated/encephalopathic EEG showed mod. slowing, possible focus for epileptic activity Neuro is following-Dr. Wilks RESP: Acute respiratory failure Healthcare associated pneumonia Intubated in ED 05/28/16 following cardiac arrest Continue with vent support keep sat >92% Duoneb q6 hours. Albuterol 2 prn. Ventilator Bundle. Daily SBT as leana. Patient has been intubated since 05/28 patient will likely need trach if family desires aggressive care. CV: Cardiac arrest, secondary to hyperkalemia Nonischemic cardiomyopathy secondary to HTN, cocaine abuse Hypertension Elevated Troponin: ? NSTEMI Monitor HR and BP keep MAP>65mmHg Continue home meds: Hydralazine 25 tid. Clonidine 0.1 tid., Lopressor 25mg Q6 ASA 81 mg daily. Mild troponin elevation in setting of ESRD. Echo 05/31: EF 25-30%, no RWMA cardiac cath 12/09/2012 - EF 40%, normal coronaries. Elevated troponin, cardiac arrest cardiology is following-no intervention planned. GI: Hepatitis C Elevated LFT Continue TF-Nepro@40ml/hr Monitor LFT's: Trending down US liver: Bilateral pleural effusions. Thick-walled gallbladder with minimal pericholecystic fluid. Minimal ascites. Echogenic atrophic right kidney. Mild nonspecific prominence of the main pancreatic duct. FEN/RENAL: ESRD Acute severe hyperkalemia Intermittent hemodialysis per nephrology (Dr. Francisco) Emergent HD 05/28 due to potassium of 6.8 with bradycardia and cardiac arrest Monitor renal function, I/O's, avoid nephrotoxins. s/p HD yesterday 2L removed. ID: Acute healthcare associated pneumonia Received Zosyn and azithromycin in the emergency department 05/28. On Zosyn 2.25 g IV every 8 hours dosed for pneumonia/ESRD. d/c Azithromycin ( has been on Azithromycin since 05/29) 05/29 Sputum cx: nl jorge l, 05/28 nasal washing negative for Influenza. Follow up on sputum cx HEME: Monitor CBC ENDO: Diabetes mellitus Medium dose Insulin sliding scale with bedside glucose every 6 hours PROPH: Heparin subcutaneous for DVT prophylaxis. Protonix 40 mg IV daily for stress ulcer prophylaxis. Doppler US LE negative for DVT ACCESS: Peripheral IV providing adequate access at this time. Left AV fistula accessed for hemodialysis Full code Palliative care is following to assist with deciding goals of therapy. If family desires to continue aggressive care, patient will require tracheostomy and PEG tube placement. Critical care time 30 minutes exclusive of separately billable procedures. Rojas Fonseca MD Jun 08, 2016 10:01
[2016-06-08] MEDS: PROPOFOL 1000 MG/100 ML INJ 100 ML IV SCH (10:29)
[2016-06-08] MEDS: DEXMEDETOMIDINE INJ 50 ML IV SCH ×4 (10:30→20:24)
[2016-06-08 11:00] LABS: AUTOMATED NEUTROPHIL # 3.1 TH/MM3 (1.8-7.7); BASOPHIL % 0.5 % (0.0-2.0); EOSINOPHIL # 0.2 TH/MM3 (0-0.4); EOSINOPHIL % 3.7 % (0.0-4.0); HEMATOCRIT 34.3 % (39.0-51.0); LYMPH % 17.1 % (9.0-44.0); LYMPHOCYTE # 0.9 TH/MM3 (1.0-4.8); MEAN CELL VOLUME 90.9 FL (80.0-100.0); MEAN CORPUSCULAR HGB CONC 34.1 % (32.0-36.0); MONO % 18.5 % (0.0-8.0); NEUT % 60.2 % (16.0-70.0); PLATELET COUNT 113 TH/MM3 (150-450); RED BLOOD COUNT 3.77 MIL/MM3 (4.50-5.90); RED CELL DISTRIBUTION WIDTH 13.6 % (11.6-17.2); WHITE BLOOD COUNT 5.1 TH/MM3 (4.0-11.0)
[2016-06-08 11:20] LABS: ALKALINE PHOSPHATASE 78 U/L (45-117); ALT (GPT) 41 U/L (12-78); ANION GAP 12 MEQ/L (5-15); AST (GOT) 66 U/L (15-37); BICARBONATE 29.7 MEQ/L (21.0-32.0); CHLORIDE 95 MEQ/L (98-107); GLOMERULAR FILTRATION RATE 9 ML/MIN (>89); POTASSIUM 4.2 MEQ/L (3.5-5.1); SODIUM (NA) 137 MEQ/L (136-145); TOTAL BILIRUBIN ADULT 0.5 MG/DL (0.2-1.0)
[2016-06-08 11:21] LABS: BLOOD UREA NITROGEN 44 MG/DL (7-18)
[2016-06-08 11:37] LABS: HEMO FLAGS AUTO DIFF
[2016-06-08 11:38] LABS: PLATELET ESTIMATE SMEAR LOW (NORMAL); PLATELET MORPHOLOGY ENLARGED (NORMAL); SCAN/DIFF AUTO DIFF CONFIRMED
--- NOTE | 2016-06-08 18:20 | HHI.NPPN ---
Subjective General Problems: Anemia Renal Failure: Chronic, End Stage Renal Disease Additional Remarks Patient remain on the vent. and sedated. Review of Systems General General Remarks unable to evaluate due to intubation/sedation Objective Data Data 06/07/16 06/08/16 19:00 07:00 Intake Total 517 ml 1016 ml Output Total 3000 ml 1 ml Balance -2483 ml 1015 ml Intake Oral 0 ml IV Total 267 ml 548 ml Tube Feeding 250 ml 468 ml Output Urine Total 1 ml Hemodialysis 3000 ml # Voids 1 # Bowel Movements 1 Vital Signs Date Time Temp Pulse Resp B/P Pulse Ox O2 Delivery O2 Flow Rate FiO2 06/08/16 18:00 58 06/08/16 16:00 59 06/08/16 16:00 98.0 59 12 117/61 100 06/08/16 16:00 35 06/08/16 15:45 100 35 06/08/16 15:38 100 35 06/08/16 14:00 59 06/08/16 12:00 65 06/08/16 12:00 97.9 61 10 108/61 100 06/08/16 12:00 35 06/08/16 11:50 100 35 06/08/16 11:50 35 06/08/16 10:00 65 06/08/16 08:41 100 35 06/08/16 08:00 64 06/08/16 08:00 35 06/08/16 08:00 98.3 72 12 124/69 100 06/08/16 06:00 66 06/08/16 04:00 98.1 60 12 99/57 100 06/08/16 04:00 100 35 06/08/16 04:00 60 06/08/16 04:00 35 06/08/16 02:00 81 06/08/16 00:50 100 35 06/08/16 00:00 76 06/08/16 00:00 76 06/08/16 00:00 35 06/08/16 00:00 98.4 76 12 113/66 100 06/07/16 22:00 80 06/07/16 20:00 35 06/07/16 20:00 90 06/07/16 20:00 98.6 90 12 109/58 100 06/07/16 19:47 99 35 -: 06/08/16 1040 06/08/16 1040 Tubes & Lines Comment ETT, OG tube Drip Comment Fentanyl Physical Exam General Appearance Remarks Sedated and intubated. Eyes Eye Exam: Pupils Equal, Pupils Reactive Neck Neck Exam: Neck Supple Pulmonary Resp Exam: Breath Sounds Equal, No Distress, Rhonchi, Decreased Bases, Diminished Breath Sounds Cardiology CV Exam: Regular, Normal Sinus Rhythm Gastrointestinal/Abdomen GI Exam: Soft, Non-Tender, Non-Distended Extremeties Extremities Exam: Trace Edema Neurologic Neuro Exam: Unresponsive, Sedated Assessment/Plan Discussed Condition With: Patient, Relative Assessment Summary: Anemia of CKD, Hypertension, End Stage Renal Disease Electrolyte Assessment: Hypocalcemia Problem List: (1) ESRD on dialysis Plan: T-Th-Sat HD schedule Has AVF left arm, monitor function HD was done yesterday, Weaning was unsuccessful in AM. Back on sedation. (2) Hypertension Plan: BP is acceptable. He is on metoprolol, hydralazine, clonidine (3) DM (diabetes mellitus) Plan: continue insulin coverage goal to maintain blood glucose between 140 and 180 (4) Hyperkalemia Plan: corrected with dialysis, monitor for recurrence (5) NSTEMI (non-ST elevated myocardial infarction) Plan: Troponin I elevated post cardiac arrest, chest compressions. he had catheterization in January 2016, normal coronary arteries (6) Elevated LFTs Plan: Liver US: ? acute cholelithiasis may need additional scans (7) Cocaine abuse Plan: cessation advised Problem Qualifiers (1) Hypertension: Qualified Code: I10 - Essential hypertension (2) DM (diabetes mellitus): Severo Peck MD Jun 08, 2016 18:20
[2016-06-08] MEDS ORDERED: SODIUM CHLORIDE 0.9% IV SCH (23:30)
[2016-06-08] MEDS ORDERED: DESMOPRESSIN IV SCH (23:30)
[2016-06-09] VITALS (20 sets, daily range): BP systolic 93–145; BP diastolic 55–85; PULSE 58–85; RESP 12–24; TEMP 95.5–99.3; O2SAT 100
[2016-06-09] MEDS: DEXMEDETOMIDINE INJ 50 ML IV SCH ×7 (00:15→23:07)
[2016-06-09] MEDS: PROPOFOL 1000 MG/100 ML INJ 100 ML IV SCH ×3 (00:15→20:11)
[2016-06-09] MEDS: PIPERACIL-TAZO 2.25 GM PREMIX 50 ML IV SCH ×3 (01:41→17:30)
[2016-06-09] MEDS: INSULIN NovoLIN REGULAR SUPPLEMENTAL SCALE SQ SCH ×4 (03:00→20:10)
[2016-06-09] MEDS: CHLORHEXIDINE GLUCONATE 2 % 1 PACK (2 CLOTHS) TOP SCH (03:51)
[2016-06-09 03:53] LABS: AUTOMATED NEUTROPHIL # 2.1 TH/MM3 (1.8-7.7); EOSINOPHIL # 0.1 TH/MM3 (0-0.4); HEMO FLAGS DIFF FINAL; LYMPH % 16.2 % (9.0-44.0); LYMPHOCYTE # 0.5 TH/MM3 (1.0-4.8); MEAN CELL VOLUME 91.2 FL (80.0-100.0); MEAN CORPUSCULAR HGB CONC 32.9 % (32.0-36.0); MONO % 14.7 % (0.0-8.0); NEUT % 65.1 % (16.0-70.0); PLATELET COUNT 137 TH/MM3 (150-450); RED BLOOD COUNT 3.73 MIL/MM3 (4.50-5.90); RED CELL DISTRIBUTION WIDTH 13.7 % (11.6-17.2); WHITE BLOOD COUNT 3.2 TH/MM3 (4.0-11.0)
[2016-06-09 04:17] LABS: ALKALINE PHOSPHATASE 65 U/L (45-117); ALT (GPT) 40 U/L (12-78); ANION GAP 13 MEQ/L (5-15); AST (GOT) 63 U/L (15-37); BICARBONATE 29.3 MEQ/L (21.0-32.0); BLOOD UREA NITROGEN 55 MG/DL (7-18); CHLORIDE 94 MEQ/L (98-107); GLOMERULAR FILTRATION RATE 8 ML/MIN (>89); SODIUM (NA) 136 MEQ/L (136-145); TOTAL BILIRUBIN ADULT 0.6 MG/DL (0.2-1.0)
[2016-06-09] MEDS: METOPROLOL TARTRATE 25 MG TAB PO/NG SCH ×5 (05:44→23:07)
[2016-06-09] MEDS: HEPARIN SODIUM - SQ 10,000 UNITS/ML VIAL SQ SCH ×3 (05:44→23:06)
[2016-06-09] MEDS: GELATIN 12 MM/7 MM FOAM TOP PRN (08:15)
[2016-06-09] MEDS: SODIUM CHLOR 0.9% 1000 ML INJ 1,000 ML IV PRN (08:15)
[2016-06-09] MEDS: ALBUMIN HUMAN 25% 25 GM/100 ML BAGP IV PRN (08:16)
[2016-06-09] MEDS: CHLORHEXIDINE 0.12% (ORAL KIT) 15 ML CUP MT SCH ×2 (08:38→20:10)
[2016-06-09] MEDS: PANTOPRAZOLE SODIUM 40 MG VIAL IV SCH (08:39)
[2016-06-09] MEDS: SODIUM CHLORIDE 0.9% FLUSH 5 ML FLUSH IV FLUSH SCH ×2 (08:40→20:10)
[2016-06-09] MEDS: CALCIUM ACETATE 667 MG CAP NG SCH ×3 (08:41→17:30)
[2016-06-09] MEDS: DOCUSATE SODIUM 100 MG CAP PO SCH ×2 (08:41→20:10)
[2016-06-09] MEDS: cloNIDine HCL 0.1 MG TAB PO SCH ×3 (08:41→17:29)
[2016-06-09] MEDS: hydrALAZINE HCL 25 MG TAB PO SCH ×3 (08:41→17:28)
[2016-06-09] MEDS: ASPIRIN EC 81 MG TABEC PO SCH (08:42)
--- NOTE | 2016-06-09 09:44 | HHI.CCPN ---
Subjective Remarks/Hospital Course 05/28: 60 yo AAM with PMH of HTN, stroke without residual deficit, DM, nonischemic cardiomyopathy (EF 40% and stage I diastolic dysfunction) Cocaine abuse, Hepatitis C, ESRD on HD T/R/Sat who presents to [facility] ED for 2 day history of SOB. He reported symptoms started 1/ after he received hemodialysis. He reported a nonproductive cough without fevers, chills, or chest pain. His workup revealed a normal white count and CXR that demonstrated RLL consolidation. His potassium was 6.8. While preparations were being made to administer medications to address his hyperkalemia he developed bradycardia and PEA arrest. He underwent CPR and received epinephrine and 1 amp of bicarbonate. It was return of spontaneous circulation after 8 minutes. He was intubated by the emergency department physician Dr. Clancy. Dr. Francisco with nephrology was consulted and he made arrangements for urgent dialysis which is taking place currently. Target removal 3.8 L per HD RN. Postintubation CXR demonstrates R base infiltrate but also appears there is right pleural effusion. Influenza screen negative. Receive Zosyn and azithromycin in the emergency department. 05/29: Sedated, arousable, not following commands, orally intubated on mechanical ventilation. Gets agitated on lightening sedation and has a strong gag reflex. 05/30: Sedated, arousable, not following commands. Remains orally intubated on mechanical ventilation. Failed C Pap trial today. Dialyzed earlier. 05/31: Sedated/encephalopathic on lightening sedation, not following commands. Remains orally intubated on mechanical ventilation. Failed C Pap trials yesterday. 2-D echo just being completed today. 06/01 No events overnight. On Precedex drip unresponsive and doesn't follow commands. Afebrile. 06/02 Patient s/p HD yesterday with removal 1.5L , on Precedex infusion for sedation. 06/03 No events overnight. Sedated with fentanyl and intubated. s/p HD yesterday with removal 1.5L. 06/04 Patient remains sedated and intubated. Afebrile. Did not tolerate CPAP trials yesterday as he became tachypneic. 06/05 Patient s/p HD yesterday with removal 2L. Sedated with Fentanyl and intubated. Afebrile. Patient gets very agitated and restless when sedation is weaned off. 06/06 Patient is sedated with Fentanyl placed on Diprivan as well last night. Gets agitated and tachypneic on CPAP trials. s/p HD yesterday with removal 2L. 06/07: Remains sedated/encephalopathic, orally intubated on mechanical ventilation. Failed C Pap trials yesterday. 06/08: Remains sedated/encephalopathic, orally intubated on mechanical ventilation. Gets agitated on lightening sedation however not following commands. We'll attempt Precedex and titrate down on fentanyl/propofol 06/09: Remains sedated/encephalopathic, orally intubated on mechanical ventilation. On Precedex/propofol/fentanyl. Will attempt transitioning to Precedex alone to control agitation for C Pap trials. Objective Vital Signs Date Time Temp Pulse Resp B/P Pulse Ox O2 Delivery O2 Flow Rate FiO2 06/09/16 06:00 67 06/09/16 04:00 35 06/09/16 04:00 99.3 17 93/55 100 Intake and Output 06/08/16 06/08/16 06/09/16 08:00 16:00 00:00 Intake Total 458 ml 246 ml 745 ml Output Total 1 ml 0 ml Balance 457 ml 246 ml 745 ml Result Diagram: 06/09/16 0330 06/09/16 0330 Imaging Last Impressions Chest X-Ray 06/04/16 0000 Signed Impressions: Service Date/Time: Saturday, June 04, 2016 03:23 - CONCLUSION: 1. Cardiomegaly. Right lower lobe atelectasis versus pneumonia. There has been no significant change when compared to the prior exam. Lauro Dumont MD Liver Ultrasound 06/01/16 0000 Signed Impressions: Service Date/Time: Wednesday, June 01, 2016 15:38 - CONCLUSION: 1. Bilateral pleural effusions. 2. Thick-walled gallbladder with minimal pericholecystic fluid. If there is clinical concern for acute cholecystitis a hepatobiliary scan may be helpful to confirm cystic duct obstruction. 3. Minimal ascites. 4. Echogenic atrophic right kidney. 5. Mild nonspecific prominence of the main pancreatic duct. Enzo Price MD Head CT 05/29/16 0000 Signed Impressions: Service Date/Time: Sunday, May 29, 2016 03:03 - CONCLUSION: Age- appropriate atrophy, stable from prior in September 2015. No acute findings. Earnest Torre MD Lower Extremity Ultrasound 05/28/16 0000 Signed Impressions: Service Date/Time: Saturday, May 28, 2016 22:27 - CONCLUSION: Negative for deep venous thrombosis bilateral lower extremity. Earnest Torre MD Objective Remarks GENERAL: Patient is 60 yo intubated and sedated. SKIN: Warm and dry. HEAD: Normocephalic. EYES: No scleral icterus. No injection or drainage. NECK: Supple, trachea midline. No JVD or lymphadenopathy. CARDIOVASCULAR: Regular rate and rhythm without murmurs, gallops, or rubs. RESPIRATORY: Breath sounds equal bilaterally. No accessory muscle use. GASTROINTESTINAL: Abdomen soft, non-tender, nondistended. MUSCULOSKELETAL: No cyanosis, or edema. Neuro: Intubated, sedated/encephalopathic, moves all 4 extremities, nonpurposeful, not following commands on lightening sedation but gets agitated. A/P Assessment and Plan NEURO: Acute encephalopathy, post cardiac arrest. History of stroke without residual deficit (per friend's report) History of cocaine abuse On Fentanyl, Diprivan infusion for sedation. Daily sedation vacation, added Precedex and attempt to titrate down on propofol and fentanyl Sedated/encephalopathic EEG showed mod. slowing, possible focus for epileptic activity Neuro is following-Dr. Wilks RESP: Acute respiratory failure Healthcare associated pneumonia Intubated in ED 05/28/16 following cardiac arrest Continue with vent support keep sat >92% Duoneb q6 hours. Albuterol q2 prn. Ventilator Bundle. Daily SBT as leana. Patient has been intubated since 05/28 patient will likely need trach if family desires aggressive care. CV: Cardiac arrest, secondary to hyperkalemia Nonischemic cardiomyopathy secondary to HTN, cocaine abuse Hypertension Elevated Troponin: ? NSTEMI Monitor HR and BP keep MAP>65mmHg Continue home meds: Hydralazine 25 tid. Clonidine 0.1 tid., Lopressor 25mg Q6 ASA 81 mg daily. Mild troponin elevation in setting of ESRD. Echo 05/31: EF 25-30%, no RWMA cardiac cath 12/09/2012 - EF 40%, normal coronaries. Elevated troponin, cardiac arrest. Per cardiology-no intervention planned. GI: Hepatitis C Elevated LFT Continue TF-Nepro@40ml/hr Monitor LFT's: Trending down US liver: Bilateral pleural effusions. Thick-walled gallbladder with minimal pericholecystic fluid. Minimal ascites. Echogenic atrophic right kidney. Mild nonspecific prominence of the main pancreatic duct. FEN/RENAL: ESRD Acute severe hyperkalemia Intermittent hemodialysis per nephrology (Dr. Francisco) Emergent HD 05/28 due to potassium of 6.8 with bradycardia and cardiac arrest Monitor renal function, I/O's, avoid nephrotoxins. s/p HD yesterday 2L removed. ID: Acute healthcare associated pneumonia Received Zosyn and azithromycin in the emergency department 05/28. On Zosyn 2.25 g IV every 8 hours dosed for pneumonia/ESRD. d/c Azithromycin ( has been on Azithromycin since 05/29) 05/29 Sputum cx: nl jorge l, 05/28 nasal washing negative for Influenza. Follow up on sputum cx HEME: Monitor CBC ENDO: Diabetes mellitus Medium dose Insulin sliding scale with bedside glucose every 6 hours PROPH: Heparin subcutaneous for DVT prophylaxis. Protonix 40 mg IV daily for stress ulcer prophylaxis. Doppler US LE negative for DVT ACCESS: Peripheral IV providing adequate access at this time. Left AV fistula accessed for hemodialysis Full code Palliative care is following to assist with deciding goals of therapy. If family desires to continue aggressive care, patient may require tracheostomy and will require PEG tube placement. Critical care time 30 minutes exclusive of separately billable procedures. Rojas Fonseca MD Jun 09, 2016 09:44
--- NOTE | 2016-06-09 19:41 | HHI.NPPN ---
Subjective General Problems: Anemia Renal Failure: Chronic, End Stage Renal Disease Additional Remarks Patient remain on the vent. and minimal sedation, on CPAP now. Review of Systems General General Remarks unable to evaluate due to intubation/sedation Objective Data Data 06/08/16 06/09/16 19:00 07:00 Intake Total 246 ml 1156 ml Output Total 175 ml Balance 246 ml 981 ml Intake Oral 0 ml IV Total 246 ml 486 ml Tube Feeding 670 ml Output Urine Total 125 ml Stool Total 50 ml # Bowel Movements 1 Vital Signs Date Time Temp Pulse Resp B/P Pulse Ox O2 Delivery O2 Flow Rate FiO2 06/09/16 18:00 81 06/09/16 16:52 100 35 06/09/16 16:00 85 06/09/16 16:00 35 06/09/16 16:00 97.0 85 16 145/77 100 06/09/16 14:00 75 06/09/16 13:54 100 35 06/09/16 12:42 100 35 06/09/16 12:42 35 06/09/16 12:38 100 35 06/09/16 12:00 75 06/09/16 12:00 96.6 75 12 131/75 100 06/09/16 12:00 35 06/09/16 10:12 100 35 06/09/16 10:00 75 06/09/16 08:00 97.9 69 12 114/69 100 06/09/16 08:00 35 06/09/16 08:00 70 06/09/16 06:00 67 06/09/16 04:00 75 06/09/16 04:00 35 06/09/16 04:00 99.3 75 17 93/55 100 06/09/16 02:00 66 06/09/16 01:00 100 35 06/09/16 00:00 58 06/09/16 00:00 35 06/09/16 00:00 95.5 58 12 113/62 100 06/08/16 22:00 69 06/08/16 20:00 94.1 72 12 135/73 100 06/08/16 20:00 72 06/08/16 20:00 35 06/08/16 19:51 100 35 -: 06/09/16 0330 06/09/16 0330 Tubes & Lines Comment ETT, OG tube Drip Comment Fentanyl Physical Exam General Appearance Remarks Sedated and intubated. Eyes Eye Exam: Pupils Equal, Pupils Reactive Neck Neck Exam: Neck Supple Pulmonary Resp Exam: Breath Sounds Equal, No Distress, Rhonchi, Decreased Bases, Diminished Breath Sounds Cardiology CV Exam: Regular, Normal Sinus Rhythm Gastrointestinal/Abdomen GI Exam: Soft, Non-Tender, Non-Distended Extremeties Extremities Exam: Trace Edema Neurologic Neuro Exam: Unresponsive, Sedated Assessment/Plan Discussed Condition With: Patient, Relative Assessment Summary: Anemia of CKD, Hypertension, End Stage Renal Disease Electrolyte Assessment: Hypocalcemia Problem List: (1) ESRD on dialysis Plan: T--Mon HD schedule Has AVF left arm, monitor function HD done in AM and 3 liters removed. Weaning as tolerated. (2) Hypertension Plan: BP is acceptable. He is on metoprolol, hydralazine, clonidine (3) DM (diabetes mellitus) Plan: continue insulin coverage goal to maintain blood glucose between 140 and 180 (4) Hyperkalemia Plan: corrected with dialysis, monitor for recurrence (5) NSTEMI (non-ST elevated myocardial infarction) Plan: Troponin I elevated post cardiac arrest, chest compressions. he had catheterization in January 2016, normal coronary arteries (6) Elevated LFTs Plan: Liver US: ? acute cholelithiasis may need additional scans (7) Cocaine abuse Plan: cessation advised Problem Qualifiers (1) Hypertension: Qualified Code: I10 - Essential hypertension (2) DM (diabetes mellitus): Severo Peck MD Jun 09, 2016 19:41
[2016-06-10] VITALS (20 sets, daily range): BP systolic 100–140; BP diastolic 55–79; PULSE 64–78; RESP 12–21; TEMP 95.1–99.5; O2SAT 100
[2016-06-10] MEDS: PIPERACIL-TAZO 2.25 GM PREMIX 50 ML IV SCH ×3 (00:40→17:10)
[2016-06-10] MEDS: DEXMEDETOMIDINE INJ 50 ML IV SCH ×9 (01:35→22:34)
[2016-06-10] MEDS: INSULIN NovoLIN REGULAR SUPPLEMENTAL SCALE SQ SCH ×4 (03:00→21:00)
[2016-06-10] MEDS: CHLORHEXIDINE GLUCONATE 2 % 1 PACK (2 CLOTHS) TOP SCH (04:00)
[2016-06-10] MEDS: PROPOFOL 1000 MG/100 ML INJ 100 ML IV SCH ×3 (04:29→21:51)
[2016-06-10 05:57] LABS: AUTOMATED NEUTROPHIL # 3.6 TH/MM3 (1.8-7.7); BASOPHIL % 0.8 % (0.0-2.0); EOSINOPHIL # 0.1 TH/MM3 (0-0.4); EOSINOPHIL % 2.5 % (0.0-4.0); HEMATOCRIT 30.9 % (39.0-51.0); HEMO FLAGS DIFF FINAL; LYMPH % 13.3 % (9.0-44.0); LYMPHOCYTE # 0.7 TH/MM3 (1.0-4.8); MEAN CELL VOLUME 90.3 FL (80.0-100.0); MEAN CORPUSCULAR HEMOGLOBIN 30.7 PG (27.0-34.0); MONO % 12.1 % (0.0-8.0); NEUT % 71.3 % (16.0-70.0); PLATELET COUNT 125 TH/MM3 (150-450); RED BLOOD COUNT 3.42 MIL/MM3 (4.50-5.90); RED CELL DISTRIBUTION WIDTH 13.8 % (11.6-17.2); WHITE BLOOD COUNT 5.1 TH/MM3 (4.0-11.0)
[2016-06-10] MEDS: METOPROLOL TARTRATE 25 MG TAB PO/NG SCH ×3 (06:00→17:11)
[2016-06-10] MEDS: HEPARIN SODIUM - SQ 10,000 UNITS/ML VIAL SQ SCH ×3 (06:08→21:50)
[2016-06-10 06:30] LABS: ALKALINE PHOSPHATASE 79 U/L (45-117); ALT (GPT) 35 U/L (12-78); ANION GAP 12 MEQ/L (5-15); AST (GOT) 55 U/L (15-37); BICARBONATE 29.9 MEQ/L (21.0-32.0); BLOOD UREA NITROGEN 44 MG/DL (7-18); CHLORIDE 96 MEQ/L (98-107); GLOMERULAR FILTRATION RATE 11 ML/MIN (>89); POTASSIUM 3.8 MEQ/L (3.5-5.1); SODIUM (NA) 138 MEQ/L (136-145); TOTAL BILIRUBIN ADULT 0.5 MG/DL (0.2-1.0)
[2016-06-10] MEDS: CHLORHEXIDINE 0.12% (ORAL KIT) 15 ML CUP MT SCH ×2 (08:11→21:50)
[2016-06-10] MEDS: hydrALAZINE HCL 25 MG TAB PO SCH ×3 (08:14→17:11)
[2016-06-10] MEDS: ASPIRIN EC 81 MG TABEC PO SCH (08:14)
[2016-06-10] MEDS: CALCIUM ACETATE 667 MG CAP NG SCH ×3 (08:15→17:11)
[2016-06-10] MEDS: PANTOPRAZOLE SODIUM 40 MG VIAL IV SCH (08:15)
[2016-06-10] MEDS: DOCUSATE SODIUM 100 MG CAP PO SCH ×2 (08:15→21:50)
[2016-06-10] MEDS: cloNIDine HCL 0.1 MG TAB PO SCH ×3 (08:15→17:11)
[2016-06-10] MEDS: SODIUM CHLORIDE 0.9% FLUSH 5 ML FLUSH IV FLUSH SCH ×2 (08:15→21:50)
--- NOTE | 2016-06-10 12:41 | HHI.HCPN ---
Reason for visit a. To assist with evaluation and management of symptoms including: dyspnea, encephalopathy b. To assist medical decision maker(s) with: better understanding of current medical conditions; weighing benefits/burdens of medical treatment options; making medical treatment decisions. (Blank Coronel) Subjective/Interval History Patient seen today to follow-up on comfort , goals with decision makers. Pt has remained in ICU, requiring sedation and mechanical vent.Not tolerating CPAP due to agitation. Has cont to require sedation for agitation, though has not been purposeful. Has been on/off of fentanyl, diprivan, precedex. Currently on precedex, diprivan. Last imaging 06/07, CXR w worsening aeration. D/w manager secondary, plan for trach/PEG Monday if proxy desires cont aggressive tx. Patient seen in room as sig other/HCP arriving. He is minimally responsive to my exam, on sedation. UPdate sig other on conditions, tx, and little improvement thus far. Review trach/PEG would be recommend to cont aggressive interventions though those would NOT provide for improved neurologic outcome, pts conditions would otherwise continue. She seems to have simple understanding of things. She is going to think about the trach today, and talk more to her brother who provides her support. Sounds as if she will likely proceed w trach. Discussed with nurse, critical care Dr Gonzales. (Blank Coronel) Advance Directives Living Will: Never completed Health Care Surrogate: Never completed Durable Power of Equal Opportunity Counselor: Never completed (Blank Coronel) Objective Vital Signs Date Time Temp Pulse Resp B/P Pulse Ox O2 Delivery O2 Flow Rate FiO2 06/10/16 10:57 100 35 06/10/16 10:00 71 06/10/16 08:27 35 06/10/16 08:27 100 35 06/10/16 08:19 100 35 06/10/16 08:00 35 06/10/16 08:00 99.0 78 16 106/63 100 06/10/16 08:00 78 06/10/16 06:00 74 06/10/16 04:04 100 35 06/10/16 04:00 35 06/10/16 04:00 75 06/10/16 04:00 99.5 75 12 100/55 100 06/10/16 02:00 67 06/10/16 01:09 100 35 06/10/16 00:00 67 06/10/16 00:00 35 06/10/16 00:00 95.1 67 12 140/79 100 06/09/16 22:10 100 35 06/09/16 22:00 72 06/09/16 20:10 100 35 06/09/16 20:00 74 06/09/16 20:00 96.9 74 24 139/85 100 06/09/16 20:00 35 06/09/16 18:00 81 06/09/16 16:52 100 35 06/09/16 16:00 85 06/09/16 16:00 35 06/09/16 16:00 97.0 85 16 145/77 100 06/09/16 14:00 75 06/09/16 13:54 100 35 06/09/16 12:42 100 35 06/09/16 12:42 35 06/09/16 12:38 100 35 Intake & Output 06/10/16 06/10/16 07:00 19:00 Intake Total 1150 ml Output Total 50 ml Balance 1100 ml IV Total 672 ml Tube Feeding 418 ml Tube Irrigant 60 ml Output Urine Total 50 ml Stool Total 0 ml Physical Exam CONSTITUTIONAL/GENERAL: This is an adequately nourished patient, in no apparent distress, sedated on mechanical vent TUBES/LINES/DRAINS: PIV x 2 RUE, OGT, ETT, restraints BUE CARDIOVASCULAR: Regular rate and rhythm without murmurs. peripheral pulses symmetric. RESPIRATORY/CHEST: Symmetric, unlabored [facility] Clear to auscultation. GASTROINTESTINAL: Abdomen soft, nondistended. No hepato-splenomegaly, or palpable masses. Bowel sounds active. TF infusing via OGT. + 3 palpable, small nodular , mobile firm masses to abdomen (? r/t Sq heparin) NEUROLOGICAL: sedated on mech vent-- limited assessment. No eye opening. Withdraws/localizes to pain stimuli on BLE, extremities no response from upper. Does not follow any commands, on sedation. Restraints 2. PSYCHIATRIC: Limited assessment due to clinical conditionno apparent distress during my exam though nursing reports agitation just prior to my arrival (Blank Coronel) Diagnostic Tests Laboratory Laboratory Tests Test 06/08/16 06/09/16 06/10/16 10:40 03:30 04:05 White Blood Count 5.1 TH/MM3 3.2 TH/MM3 5.1 TH/MM3 (4.0-11.0) (4.0-11.0) (4.0-11.0) Red Blood Count 3.77 MIL/MM3 3.73 MIL/MM3 3.42 MIL/MM3 (4.50-5.90) (4.50-5.90) (4.50-5.90) Hemoglobin 11.7 GM/DL 11.2 GM/DL 10.5 GM/DL (13.0-17.0) (13.0-17.0) (13.0-17.0) Hematocrit 34.3 % 34.0 % 30.9 % (39.0-51.0) (39.0-51.0) (39.0-51.0) Mean Corpuscular Volume 90.9 FL 91.2 FL 90.3 FL (80.0-100.0) (80.0-100.0) (80.0-100.0) Mean Corpuscular Hemoglobin 31.0 PG 30.0 PG 30.7 PG (27.0-34.0) (27.0-34.0) (27.0-34.0) Mean Corpuscular Hemoglobin 34.1 % 32.9 % 34.0 % Concent (32.0-36.0) (32.0-36.0) (32.0-36.0) Red Cell Distribution Width 13.6 % 13.7 % 13.8 % (11.6-17.2) (11.6-17.2) (11.6-17.2) Platelet Count 113 TH/MM3 137 TH/MM3 125 TH/MM3 (150-450) (150-450) (150-450) Mean Platelet Volume 11.3 FL 11.2 FL 12.5 FL (7.0-11.0) (7.0-11.0) (7.0-11.0) Neutrophils (%) (Auto) 60.2 % 65.1 % 71.3 % (16.0-70.0) (16.0-70.0) (16.0-70.0) Lymphocytes (%) (Auto) 17.1 % 16.2 % 13.3 % (9.0-44.0) (9.0-44.0) (9.0-44.0) Monocytes (%) (Auto) 18.5 % 14.7 % 12.1 % (0.0-8.0) (0.0-8.0) (0.0-8.0) Eosinophils (%) (Auto) 3.7 % (0.0-4.0) 3.0 % (0.0-4.0) 2.5 % (0.0-4.0) Basophils (%) (Auto) 0.5 % (0.0-2.0) 1.0 % (0.0-2.0) 0.8 % (0.0-2.0) Neutrophils # (Auto) 3.1 TH/MM3 2.1 TH/MM3 3.6 TH/MM3 (1.8-7.7) (1.8-7.7) (1.8-7.7) Lymphocytes # (Auto) 0.9 TH/MM3 0.5 TH/MM3 0.7 TH/MM3 (1.0-4.8) (1.0-4.8) (1.0-4.8) Monocytes # (Auto) 0.9 TH/MM3 0.5 TH/MM3 0.6 TH/MM3 (0-0.9) (0-0.9) (0-0.9) Eosinophils # (Auto) 0.2 TH/MM3 0.1 TH/MM3 0.1 TH/MM3 (0-0.4) (0-0.4) (0-0.4) Basophils # (Auto) 0.0 TH/MM3 0.0 TH/MM3 0.0 TH/MM3 (0-0.2) (0-0.2) (0-0.2) CBC Comment AUTO DIFF DIFF FINAL DIFF FINAL Differential Comment AUTO DIFF CONFIRMED Platelet Estimate LOW (NORMAL) Platelet Morphology Comment ENLARGED (NORMAL) Hematology Comments Sodium Level 137 MEQ/L 136 MEQ/L 138 MEQ/L (136-145) (136-145) (136-145) Potassium Level 4.2 MEQ/L 4.0 MEQ/L 3.8 MEQ/L (3.5-5.1) (3.5-5.1) (3.5-5.1) Chloride Level 95 MEQ/L 94 MEQ/L 96 MEQ/L (98-107) (98-107) (98-107) Carbon Dioxide Level 29.7 MEQ/L 29.3 MEQ/L 29.9 MEQ/L (21.0-32.0) (21.0-32.0) (21.0-32.0) Anion Gap 12 MEQ/L (5-15) 13 MEQ/L (5-15) 12 MEQ/L (5-15) Blood Urea Nitrogen 44 MG/DL (7-18) 55 MG/DL (7-18) 44 MG/DL (7-18) Creatinine 7.49 MG/DL 8.21 MG/DL 6.17 MG/DL (0.60-1.30) (0.60-1.30) (0.60-1.30) Estimat Glomerular Filtration 9 ML/MIN (>89) 8 ML/MIN (>89) 11 ML/MIN (>89) Rate Random Glucose 87 MG/DL 135 MG/DL 122 MG/DL (74-106) (74-106) (74-106) Calcium Level 8.4 MG/DL 9.1 MG/DL 9.0 MG/DL (8.5-10.1) (8.5-10.1) (8.5-10.1) Total Bilirubin 0.5 MG/DL 0.6 MG/DL 0.5 MG/DL (0.2-1.0) (0.2-1.0) (0.2-1.0) Aspartate Amino Transf 66 U/L (15-37) 63 U/L (15-37) 55 U/L (15-37) (AST/SGOT) Alanine Aminotransferase 41 U/L (12-78) 40 U/L (12-78) 35 U/L (12-78) (ALT/SGPT) Alkaline Phosphatase 78 U/L (45-117) 65 U/L (45-117) 79 U/L (45-117) Total Protein 6.0 GM/DL 6.4 GM/DL 6.8 GM/DL (6.4-8.2) (6.4-8.2) (6.4-8.2) Albumin 1.8 GM/DL 1.7 GM/DL 2.4 GM/DL (3.4-5.0) (3.4-5.0) (3.4-5.0) (Blank Coronel) Result Diagram: 06/10/165 06/10/16404 Imaging Last Impressions Chest X-Ray 06/07/16 0000 Signed Impressions: Service Date/Time: Tuesday, June 07, 2016 04:28 - CONCLUSION: Worsening aeration. Minh Silva MD Liver Ultrasound 06/01/16 0000 Signed Impressions: Service Date/Time: Wednesday, June 01, 2016 15:38 - CONCLUSION: 1. Bilateral pleural effusions. 2. Thick-walled gallbladder with minimal pericholecystic fluid. If there is clinical concern for acute cholecystitis a hepatobiliary scan may be helpful to confirm cystic duct obstruction. 3. Minimal ascites. 4. Echogenic atrophic right kidney. 5. Mild nonspecific prominence of the main pancreatic duct. Enzo Price MD Head CT 05/29/16 0000 Signed Impressions: Service Date/Time: Sunday, May 29, 2016 03:03 - CONCLUSION: Age- appropriate atrophy, stable from prior in September 2015. No acute findings. Earnest Torre MD Lower Extremity Ultrasound 05/28/16 0000 Signed Impressions: Service Date/Time: Saturday, May 28, 2016 22:27 - CONCLUSION: Negative for deep venous thrombosis bilateral lower extremity. Earnest Torre MD (Blank Coronel) Assessment and Plan Disease Oriented Problem List: (1) Metabolic encephalopathy (2) ESRD on hemodialysis (3) Shortness of breath (4) Diabetes (5) CHF (congestive heart failure) (6) Elevated troponin level (7) Hepatitis C (8) Hyperkalemia, diminished renal excretion (9) Cardiac arrest (10) Hyperkalemia (11) Hypertension (12) NSTEMI (non-ST elevated myocardial infarction) (13) Elevated LFTs (14) Non-ischemic cardiomyopathy Symptom Scale: (1) Encephalopathy (2) Anxiety (3) Dyspnea Pertinent Non-Medical Issues Psychosocial:Per prior H&P by palliative 2014 (obtained from significant other Neema) patient born in [place] moves to [place] sometime in 2012 or 14. Parents are , patient has no siblings. He did serve in the though branch not known. He did have some connection with the [facility]. Disabled and not working for many years. Completed high school. 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 Has lived with significant other Neema Johnston for many years. Never reported to be . Has 1 son, 1 daughter who may live in the [place] area. Spiritual:Per prior admissions:He attends [employer]. 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 Legal:Patient currently unable to participate in decision-making due to clinical condition. Not clear if he will regain ability to participate, status post PEA arrest. Patient reported to have 2 adult children, never . Per [place] statutes these 2 adult children would be appropriate legal decision makers. He has a significant other of many years who has previously served as a proxy during hospital course as children were not able to be located during previous attempts. Would again attempt to locate any possible family members as the last attempt I'm aware of occurred in 2013, if unable to locate children then would proceed with significant other artery as healthcare proxy. [16-- requested case management assist with [employer] report to again attempt to locate possible children-- reported 06.02.15 no family located. ] Ethical issues impacting care: Important Contacts Neema Johnston significant other [phone]/ [phone] Prognosis This patient suffered PEA arrest during this admission likely secondary to hyperkalemia, end-stage renal disease on hemodialysis. He now remains on mechanical vent, encephalopathic. Condition is guarded. Possible he may wean and medically extubate however thus far not tolerating CPAP trials. May require tracheostomy and PEG for ongoing aggressive interventions. Appears likely he can survive current hospital course though he does remain at risk for complications/setbacks. Code Status: Full Code Plan * Legal decision maker: Patient currently unable to participate in decision- making due to clinical condition. Not clear if he will regain ability to participate, status post PEA arrest. Patient reported to have 2 adult children , never . Per [place] statutes these 2 adult children would be appropriate legal decision makers. He has a significant other of many years who has previously served as a proxy during hospital course as children were not able to be located during previous attempts. Would again attempt to locate any possible family members as the last attempt I'm aware of occurred in 2013, if unable to locate children then would proceed with significant other artery as healthcare proxy. * Goals: AGGRESSIVE. Met w sig other Neema and her brother 06/02/16-- Neema seems to have very limited understanding and limited insight to conditions. When I initially asked what the drs had told her about her sig other's condition she stated "that he was fine and all his tests were perfect, normal". Much review of conditions, diagnostics, clinical course thus far, underlying conditions. Goals thus far are aggressive. They feel they have seen pt respond purposefully to their visit. They have seen him recover from many acute issues before, including PEA arrest, and believe he could again recover. -- sig other/proxy going to cont to think about, talk w her brother RE trach/PEG, sounds likely she will proceed. GOALS REMAIN AGGRESSIVE * CODE STATUS: Full code * SYMPTOMS: --Encephalopathy-status post PEA arrest with ROSC after approximately 8 minutes of CPR.+ encephalopathy per EEG. Neurology following, continue supportive care. Patient with prior PEA arrest episode and encephalopathy during prior admission 2013, eventually during hospital course had improvement in neurological status. --Dyspnea-emergently intubated for airway protection during PEA arrest; currently on mechanical vent not tolerating CPAP trials. May require tracheostomy/PEG if unable to wean, and if goals are aggressive. Currently requiring Diprivan and precedex--reported to be very agitated when held -Agitation/anxiety: Hx drug use. Currently on mechanical vent, + encephalopathy 2/2 PEA arrest ; previously on Precedex drip, when sedation lightened not following but does become agitated--now on precedex + diprivan. We 'll continue to evaluate. * Palliative care will continue to follow during hospital course as condition evolves, to assist patient/decision-maker with understanding of medical conditions, weighing benefits/burdens of treatment options, for clarification of goals of treatment. Additionally will assist with any symptoms of palliative concern (Blank Coronel) Time Spent Total Floor Time (mins): 20 >50% Counseling/Coord of Care: Yes (d/w RN, Critical care) (Blakn Coronel) Attestation To help prompt me to consider important information that might be impacting today's encounter and assessment, information from prior notes written by myself or my colleagues may have been "brought forward" into today's note. My signature on this note, however, is an attestation that I personally performed the exam, history, and/or decision-making noted today, and, unless otherwise indicated, the interactions with patient, family, and staff as well as the review of records all occurred today. I also attest that the listed assessment and stated plan reflect my best clinical judgment today based on the combination of historical information, prior notes, and today's exam/ interactions. When time spent is documented, it refers only to time spent today by the signer, or if indicated, combined time spent today by collaborating physician/nurse practitioner. (Blank Coronel) Collaborating MD Comments Chart reviewed. Case discussed with palliative care [employer]. Above [employer] note reviewed and I concur. . (Vu Lisa MD) Blank Coronel Jun 10, 2016 12:41 Vu Lisa MD Jul 10, 2016 08:07
--- NOTE | 2016-06-10 15:17 | HHI.CCPN ---
Subjective Remarks/Hospital Course 05/28: 60 yo AAM with PMH of HTN, stroke without residual deficit, DM, nonischemic cardiomyopathy (EF 40% and stage I diastolic dysfunction) Cocaine abuse, Hepatitis C, ESRD on HD T/R/Sat who [place] [facility] [facility] [place] 2 day history of SOB. He reported symptoms started 1/ after he received hemodialysis. He reported a nonproductive cough without fevers, chills, or chest pain. His workup revealed a normal white count and CXR that demonstrated RLL consolidation. His potassium was 6.8. While preparations were being made to administer medications to address his hyperkalemia he developed bradycardia and PEA arrest. He underwent CPR and received epinephrine and 1 amp of bicarbonate. It was return of spontaneous circulation after 8 minutes. He was intubated by the emergency department physician Dr. Clancy. Dr. Francisco with nephrology was consulted and he made arrangements for urgent dialysis which is taking place currently. Target removal 3.8 L per HD RN. Postintubation CXR demonstrates R base infiltrate but also appears there is right pleural effusion. Influenza screen negative. Receive Zosyn and azithromycin in the emergency department. 05/29: Sedated, arousable, not following commands, orally intubated on mechanical ventilation. Gets agitated on lightening sedation and has a strong gag reflex. 05/30: Sedated, arousable, not following commands. Remains orally intubated on mechanical ventilation. Failed C Pap trial today. Dialyzed earlier. 05/31: Sedated/encephalopathic on lightening sedation, not following commands. Remains orally intubated on mechanical ventilation. Failed C Pap trials yesterday. 2-D echo just being completed today. 06/01 No events overnight. On Precedex drip unresponsive and doesn't follow commands. Afebrile. 06/02 Patient s/p HD yesterday with removal 1.5L , on Precedex infusion for sedation. 06/03 No events overnight. Sedated with fentanyl and intubated. s/p HD yesterday with removal 1.5L. 06/04 Patient remains sedated and intubated. Afebrile. Did not tolerate CPAP trials yesterday as he became tachypneic. 06/05 Patient s/p HD yesterday with removal 2L. Sedated with Fentanyl and intubated. Afebrile. Patient gets very agitated and restless when sedation is weaned off. 06/06 Patient is sedated with Fentanyl placed on Diprivan as well last night. Gets agitated and tachypneic on CPAP trials. s/p HD yesterday with removal 2L. 06/07: Remains sedated/encephalopathic, orally intubated on mechanical ventilation. Failed C Pap trials yesterday. 06/08: Remains sedated/encephalopathic, orally intubated on mechanical ventilation. Gets agitated on lightening sedation however not following commands. We'll attempt Precedex and titrate down on fentanyl/propofol 06/09: Remains sedated/encephalopathic, orally intubated on mechanical ventilation. On Precedex/propofol/fentanyl. Will attempt transitioning to Precedex alone to control agitation for C Pap trials. Subjective 06/10: Still requiring Precedex/propofol and fentanyl for CPAP trials. Patient continues to be extremely agitated and currently unable to extubate. Not following commands. Positive BM. Tolerating tube feeds. Afebrile. Objective Vital Signs Date Time Temp Pulse Resp B/P Pulse Ox O2 Delivery O2 Flow Rate FiO2 06/10/16 12:00 35 06/10/16 12:00 98.2 68 21 131/75 100 Intake and Output 06/09/16 06/09/16 06/10/16 08:00 16:00 00:00 Intake Total 411 ml 565 ml 701 ml Output Total 175 ml 3150 ml 0 ml Balance 236 ml -2585 ml 701 ml Result Diagram: 06/10/16 0405 06/10/16 0405 Imaging Last Impressions Chest X-Ray 06/07/16 0000 Signed Impressions: Service Date/Time: Tuesday, June 07, 2016 04:28 - CONCLUSION: Worsening aeration. Minh Silva MD Liver Ultrasound 06/01/16 0000 Signed Impressions: Service Date/Time: Wednesday, June 01, 2016 15:38 - CONCLUSION: 1. Bilateral pleural effusions. 2. Thick-walled gallbladder with minimal pericholecystic fluid. If there is clinical concern for acute cholecystitis a hepatobiliary scan may be helpful to confirm cystic duct obstruction. 3. Minimal ascites. 4. Echogenic atrophic right kidney. 5. Mild nonspecific prominence of the main pancreatic duct. Enzo Price MD Head CT 05/29/16 0000 Signed Impressions: Service Date/Time: Sunday, May 29, 2016 03:03 - CONCLUSION: Age- appropriate atrophy, stable from prior in September 2015. No acute findings. Earnest Torre MD Lower Extremity Ultrasound 05/28/16 0000 Signed Impressions: Service Date/Time: Saturday, May 28, 2016 22:27 - CONCLUSION: Negative for deep venous thrombosis bilateral lower extremity. Earnest Torre MD Objective Remarks GENERAL: 60 yo AA male, critically ill currently orotracheally intubated. SKIN: Warm and dry. No rash HEAD: Normocephalic. EYES: Pupils minimally reactive at 2 mm bilaterally. No scleral icterus. No injection or drainage. NECK: Supple, trachea midline. No JVD or lymphadenopathy. CARDIOVASCULAR: Regular rate and rhythm with S1, S2. No S4. Went over 6 systolic murmur at the apex RESPIRATORY: Breath sounds equal bilaterally. No accessory muscle use. GASTROINTESTINAL: Abdomen soft, non-tender, nondistended. Prior scar from PEG tube in left lower quadrant. MUSCULOSKELETAL: No disc and peripheral edema. Positive thrill left AV fistula. Neuro: Intubated, encephalopathic, moves all 4 extremities, nonpurposeful, not following commands on lightening sedation but gets agitated. A/P Assessment and Plan NEURO: Acute encephalopathy, post cardiac arrest. History of stroke without residual deficit (per friend's report) History of cocaine abuse Posttraumatic stress disorder On Fentanyl, Diprivan infusion for sedation/analgesia while intubated. Daily sedation vacation Precedex and attempt to titrate down on propofol and fentanyl Sedated/encephalopathic EEG showed mod. slowing, possible focus for epileptic activity Repeat EEG today. MRI brain ordered as well. Check ammonia level in a.m. Neuro is following-Dr. Wilks peripherally RESP: Acute respiratory failure Healthcare associated pneumonia Intubated in ED 05/28/16 following cardiac arrest Continue with vent support keep sat >92% Duoneb q6 hours. Albuterol q2 prn. Ventilator Bundle. Daily SBT as leana. Patient has been intubated since 05/28 Tracheostomy consult as family desires aggressive care. CV: Cardiac arrest, secondary to hyperkalemia Nonischemic cardiomyopathy secondary to HTN, cocaine abuse Hypertension Elevated Troponin: ? NSTEMI Monitor HR and BP keep MAP>65mmHg Continue home meds: Hydralazine 25 tid. Clonidine 0.1 tid., Lopressor 25mg Q6 ( 100 mg twice a day at home ASA 81 mg daily will be continued. Echo 05/31: EF 25-30%, no RWMA. Mild MR/TR. MEGAN 36 mmHg cardiac cath 12/09/2012 - EF 40%, normal coronaries. Elevated troponin, cardiac arrest. Per cardiology-no intervention planned. GI: Hepatitis C Elevated LFT Continue TF-Nepro@40ml/hr Monitor LFT's: Trending down US liver: Bilateral pleural effusions. Thick-walled gallbladder with minimal pericholecystic fluid. Minimal ascites. Echogenic atrophic right kidney. Mild nonspecific prominence of the main pancreatic duct. Protonix for GI prophylaxis Colace for bowel regimen FEN/RENAL: ESRD Acute severe hyperkalemia - resolved Intermittent hemodialysis per nephrology (Dr. Francisco) Emergent HD 05/28 due to potassium of 6.8 with bradycardia and cardiac arrest Monitor renal function, I/O's, avoid nephrotoxins. s/p HD today with 3L removed. ID: Acute healthcare associated pneumonia Received Zosyn and azithromycin in the emergency department 05/28. On Zosyn 2.25 g IV every 8 hours dosed for pneumonia/ESRD since 05/29. Currently off Azithromycin as been treated for 10 days 05/28 nasal washing negative for Influenza. Pertinent cultures 05/28 - blood cultures 2 - 1 out of 2 corynebacterium not Jk 05/29 Sputum- beta strep not A HEME: Normocytic anemia Thrombocytopenia Monitor CBC ENDO: Diabetes mellitus Medium dose Insulin sliding scale with bedside glucose every 6 hours PROPH: Heparin 5000 units subcutaneous ERICKA for DVT prophylaxis. Protonix 40 mg IV daily for stress ulcer prophylaxis. Doppler US LE negative for DVT ACCESS: Peripheral IV providing adequate access at this time. Left AV fistula accessed for hemodialysis Full code Palliative care is following to assist with deciding goals of therapy. Consult ordered for tracheostomy and PEG tube placement. Critical Care: The total critical care time was 35 minutes. Time to perform other separately billable procedures was not included in the critical care time. Chevy Gonzales MD Jun 10, 2016 15:17
--- NOTE | 2016-06-10 16:14 | HHI.NPPN ---
Subjective General Problems: Anemia Renal Failure: Chronic, End Stage Renal Disease Additional Remarks Patient remain on the vent. and minimal sedation, on CPAP since AM, remain unresponsive. Review of Systems General General Remarks unable to evaluate due to intubation/sedation Objective Data Data 06/09/16 06/10/16 19:00 07:00 Intake Total 565 ml 1150 ml Output Total 3150 ml 50 ml Balance -2585 ml 1100 ml IV Total 228 ml 672 ml Tube Feeding 237 ml 418 ml Tube Irrigant 100 ml 60 ml Output Urine Total 50 ml 50 ml Stool Total 100 ml 0 ml Hemodialysis 3000 ml Vital Signs Date Time Temp Pulse Resp B/P Pulse Ox O2 Delivery O2 Flow Rate FiO2 06/10/16 14:00 68 06/10/16 12:00 35 06/10/16 12:00 98.2 68 21 131/75 100 06/10/16 12:00 68 06/10/16 10:57 100 35 06/10/16 10:00 71 06/10/16 08:27 35 06/10/16 08:27 100 35 06/10/16 08:19 100 35 06/10/16 08:00 35 06/10/16 08:00 99.0 78 16 106/63 100 06/10/16 08:00 78 06/10/16 06:00 74 06/10/16 04:04 100 35 06/10/16 04:00 35 06/10/16 04:00 75 06/10/16 04:00 99.5 75 12 100/55 100 06/10/16 02:00 67 06/10/16 01:09 100 35 06/10/16 00:00 67 06/10/16 00:00 35 06/10/16 00:00 95.1 67 12 140/79 100 06/09/16 22:10 100 35 06/09/16 22:00 72 06/09/16 20:10 100 35 06/09/16 20:00 74 06/09/16 20:00 96.9 74 24 139/85 100 06/09/16 20:00 35 06/09/16 18:00 81 06/09/16 16:52 100 35 -: 06/10/16 0405 06/10/16 0405 Tubes & Lines Comment ETT, OG tube Drip Comment Fentanyl Physical Exam General Appearance Remarks Sedated and intubated. Eyes Eye Exam: Pupils Equal, Pupils Reactive Neck Neck Exam: Neck Supple Pulmonary Resp Exam: Breath Sounds Equal, No Distress, Rhonchi, Decreased Bases, Diminished Breath Sounds Cardiology CV Exam: Regular, Normal Sinus Rhythm Gastrointestinal/Abdomen GI Exam: Soft, Non-Tender, Non-Distended Extremeties Extremities Exam: Trace Edema Neurologic Neuro Exam: Unresponsive, Sedated Assessment/Plan Discussed Condition With: Patient, Relative Assessment Summary: Anemia of CKD, Hypertension, End Stage Renal Disease Electrolyte Assessment: Hypocalcemia Problem List: (1) ESRD on dialysis Plan: T-Th-Sat HD schedule Has AVF left arm, monitor function HD done yesterday. Weaning as tolerated. Continue HD TTS. (2) Hypertension Plan: BP is acceptable. He is on metoprolol, hydralazine, clonidine (3) DM (diabetes mellitus) Plan: continue insulin coverage goal to maintain blood glucose between 140 and 180 (4) Hyperkalemia Plan: corrected with dialysis, monitor for recurrence (5) NSTEMI (non-ST elevated myocardial infarction) Plan: Troponin I elevated post cardiac arrest, chest compressions. he had catheterization in January 2016, normal coronary arteries (6) Elevated LFTs Plan: Liver US: ? acute cholelithiasis may need additional scans (7) Cocaine abuse Plan: cessation advised Problem Qualifiers (1) Hypertension: Qualified Code: I10 - Essential hypertension (2) DM (diabetes mellitus): Severo Peck MD Jun 10, 2016 16:14
--- NOTE | 2016-06-10 16:54 | PD.CONS ---
HPI History of Present Illness This is a 60 year old AAM with PMH of HTN, stroke without residual deficit, DM, nonischemic cardiomyopathy (EF 40% and stage I diastolic dysfunction) Cocaine abuse, Hepatitis C, ESRD on HD T/R/Sat who presents to [facility] [place] with SOB. He had hyperkalemia, consequently patient developed bradycardia and PEA arrest s/p CPR resuscitations with return of spontaneous circulation , he is being treated for acute respiratory failure, HAP . Patient currently intubated, failed CPAP trials. Positive BM. Tolerating tube feeds, Afebrile. GI services were consulted for PEG tube placement. 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 This was discussed with who will consult CM to located family in order to get consents (Lazarus Weinstein) PFSH Past Medical History Per EMR Hypertension Diabetes Cocaine abuse Tobacco abuse Hepatitis C Nonischemic cardiac myopathy with ejection fraction 40%, stage I diastolic dysfunction ESRD-dialysis 3 days per week Hyperlipidemia . Past Surgical History Per EMR Scrotal surgery ORIF left fifth digit secondary to fracture-surgery [place] 2012 Left upper extremity fistula 09/14/12 (Dr. Callejas) . 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 Medications Current Medications Medications (Trade) Dose Ordered Sig/Crispin Route Start Time Stop Time Status Last Admin (Peridex 0.12% Liq) 15 ml BID@08,20 MT 05/29/16 08:00 06/10/16 08:11 (NS Flush) 2 ml UNSCH PRN IV FLUSH 05/28/16 20:45 05/29/16 08:46 (NS Flush) 2 ml BID IV FLUSH 05/28/16 21:00 06/10/16 08:15 (fentaNYL INJ) 50 mcg Q1H PRN IV PUSH 05/28/16 20:45 (Protonix Inj) 40 mg DAILY IV 05/29/16 09:00 06/10/16 08:15 (Zofran Inj) 4 mg Q6H PRN IV 05/28/16 20:45 (Colace) 100 mg BID PO 05/28/16 21:00 06/10/16 08:15 (Heparin Inj) 5,000 units Q8H SQ 05/28/16 22:00 06/10/16 12:30 Miscellaneous Information 1 Q361D XX 05/28/16 20:45 05/29/16 08:46 (Chlorhexidine 2% Cloth) Taper DAILY@04 TOP 05/29/16 04:00 05/25/17 03:59 06/10/16 04:00 Chlorhexidine Gluconate 3 pack 3 pack UNSCH PRN TOP 05/28/16 20:45 Propofol 100 ml @ 0 mls/hr TITRATE IV 05/28/16 20:45 06/10/16 14:34 (NS 1000 ml Inj) 1,000 ml @ 0 mls/hr Q0M PRN IV 05/28/16 20:53 06/09/16 08:15 Heparin Sodium (Porcine) 8000 units 8,000 units UNSCH PRN IVF 05/28/16 21:00 Sodium Chloride 1,000 ml @ 200 mls/hr Q5H PRN IV 05/28/16 20:53 06/02/16 09:53 (NS 1000 ml Inj) 1,000 ml @ 0 mls/hr Q0M PRN IV 05/28/16 20:53 06/07/16 12:36 (Mannitol Inj) 12.5 gm UNSCH PRN IV 05/28/16 21:00 (Albumin 25% Inj) 25 gm UNSCH PRN IV 05/28/16 21:00 06/09/16 08:16 (NS Flush) 5 ml UNSCH PRN IVF 05/28/16 21:00 (Heparin Inj) UNSCH PRN .XX 05/28/16 21:00 05/30/16 13:08 (Gentamicin (Dialysis) Inj) 20 mg UNSCH PRN IV 05/28/16 21:00 (Zofran Inj) 4 mg UNSCH PRN IV 05/28/16 21:00 (Tylenol) 650 mg UNSCH PRN PO 05/28/16 21:00 (Benadryl) 25 mg UNSCH PRN PO 05/28/16 21:00 (Nitrostat Sl) 0.4 mg UNSCH PRN SL 05/28/16 21:00 (Catapres) 0.1 mg UNSCH PRN PO 05/28/16 21:00 (Gelfoam 12 Mm/7 Mm Top) 1 foam UNSCH PRN TOP 05/28/16 21:00 06/09/16 08:15 (Ecotrin Ec) 81 mg DAILY PO 05/29/16 09:00 06/10/16 08:14 Hydralazine HCl 25 mg 25 mg TID PO 05/29/16 09:00 06/10/16 12:29 (Zosyn 2.25 Gm Premix) 50 ml @ 100 mls/hr Q8H IV 05/29/16 01:00 06/10/16 08:15 (Catapres) 0.1 mg TID PO 05/29/16 09:00 06/10/16 12:30 (Ativan Inj) 2 mg Q4H PRN IV PUSH 05/29/16 18:00 06/05/16 17:51 (Lopressor) 25 mg Q6HR PO/NG 05/31/16 12:00 06/10/16 12:30 (Phoslo) 667 mg TID NG 05/31/16 13:00 06/10/16 12:29 (D50w (Vial) Inj) 25 ml UNSCH PRN IV PUSH 06/01/16 08:45 (Glucagon Inj) 1 mg UNSCH PRN OTHER 06/01/16 08:45 Insulin Human Regular 1 1 Q6H SQ 06/01/16 09:00 Fentanyl Citrate 250 ml @ 0 mls/hr TITRATE IV 06/08/16 10:00 06/08/16 10:29 (Precedex Inj) 50 ml @ 0 mls/hr TITRATE IV 06/08/16 10:00 06/10/16 14:33 Family History Per prior H&P is both parents mother of end-stage renal disease Social History Patient is intubated, not able to obtain history, but according to chart, he uses cocaine and tobacco (Lazarus Weinstein) Review of Systems ROS Unable to obtain, patient is sedated on a vent (Lazarus Weinstein) GI Exam Vitals I&O Vital Signs Date Time Temp Pulse Resp B/P Pulse Ox O2 Delivery O2 Flow Rate FiO2 06/10/16 14:00 68 06/10/16 12:00 35 06/10/16 12:00 98.2 68 21 131/75 100 06/10/16 12:00 68 06/10/16 10:57 100 35 06/10/16 10:00 71 06/10/16 08:27 35 06/10/16 08:27 100 35 06/10/16 08:19 100 35 06/10/16 08:00 35 06/10/16 08:00 99.0 78 16 106/63 100 06/10/16 08:00 78 06/10/16 06:00 74 06/10/16 04:04 100 35 06/10/16 04:00 35 06/10/16 04:00 75 06/10/16 04:00 99.5 75 12 100/55 100 06/10/16 02:00 67 06/10/16 01:09 100 35 06/10/16 00:00 67 06/10/16 00:00 35 06/10/16 00:00 95.1 67 12 140/79 100 06/09/16 22:10 100 35 06/09/16 22:00 72 06/09/16 20:10 100 35 06/09/16 20:00 74 06/09/16 20:00 96.9 74 24 139/85 100 06/09/16 20:00 35 06/09/16 18:00 81 06/09/16 16:52 100 35 I/O 06/09/16 06/09/16 06/09/16 06/10/16 06/10/16 06/10/16 07:00 15:00 23:00 07:00 15:00 23:00 Intake Total 411 ml 565 ml 701 ml 449 ml 708 ml Output Total 175 ml 3150 ml 0 ml 50 ml 150 ml Balance 236 ml -2585 ml 701 ml 399 ml 558 ml Intake Oral 0 ml IV Total 226 ml 228 ml 386 ml 286 ml 364 ml Tube Feeding 185 ml 237 ml 255 ml 163 ml 244 ml Tube Irrigant 100 ml 60 ml 100 ml Output Urine Total 125 ml 50 ml 0 ml 50 ml Stool Total 50 ml 100 ml 0 ml 0 ml 150 ml Hemodialysis 3000 ml Imaging Last Impressions Chest X-Ray 06/07/16 0000 Signed Impressions: Service Date/Time: Tuesday, June 07, 2016 04:28 - CONCLUSION: Worsening aeration. Minh Silva MD Liver Ultrasound 06/01/16 0000 Signed Impressions: Service Date/Time: Wednesday, June 01, 2016 15:38 - CONCLUSION: 1. Bilateral pleural effusions. 2. Thick-walled gallbladder with minimal pericholecystic fluid. If there is clinical concern for acute cholecystitis a hepatobiliary scan may be helpful to confirm cystic duct obstruction. 3. Minimal ascites. 4. Echogenic atrophic right kidney. 5. Mild nonspecific prominence of the main pancreatic duct. Enzo Price MD Head CT 05/29/16 0000 Signed Impressions: Service Date/Time: Sunday, May 29, 2016 03:03 - CONCLUSION: Age- appropriate atrophy, stable from prior in September 2015. No acute findings. Earnest Torre MD Lower Extremity Ultrasound 05/28/16 0000 Signed Impressions: Service Date/Time: Saturday, May 28, 2016 22:27 - CONCLUSION: Negative for deep venous thrombosis bilateral lower extremity. Earnest Torre MD Laboratory Test 06/10/16 04:05 White Blood Count 5.1 TH/MM3 Red Blood Count 3.42 MIL/MM3 Hemoglobin 10.5 GM/DL Hematocrit 30.9 % Mean Corpuscular Volume 90.3 FL Mean Corpuscular Hemoglobin 30.7 PG Mean Corpuscular Hemoglobin 34.0 % Concent Red Cell Distribution Width 13.8 % Platelet Count 125 TH/MM3 Mean Platelet Volume 12.5 FL Neutrophils (%) (Auto) 71.3 % Lymphocytes (%) (Auto) 13.3 % Monocytes (%) (Auto) 12.1 % Eosinophils (%) (Auto) 2.5 % Basophils (%) (Auto) 0.8 % Neutrophils # (Auto) 3.6 TH/MM3 Lymphocytes # (Auto) 0.7 TH/MM3 Monocytes # (Auto) 0.6 TH/MM3 Eosinophils # (Auto) 0.1 TH/MM3 Basophils # (Auto) 0.0 TH/MM3 CBC Comment DIFF FINAL Differential Comment Sodium Level 138 MEQ/L Potassium Level 3.8 MEQ/L Chloride Level 96 MEQ/L Carbon Dioxide Level 29.9 MEQ/L Anion Gap 12 MEQ/L Blood Urea Nitrogen 44 MG/DL Creatinine 6.17 MG/DL Estimat Glomerular Filtration 11 ML/MIN Rate Random Glucose 122 MG/DL Calcium Level 9.0 MG/DL Total Bilirubin 0.5 MG/DL Aspartate Amino Transf 55 U/L (AST/SGOT) Alanine Aminotransferase 35 U/L (ALT/SGPT) Alkaline Phosphatase 79 U/L Total Protein 6.8 GM/DL Albumin 2.4 GM/DL Physical Examination HEENT: normocephalic; atraumatic; no jaundice. NGT NECK: Neck is supple, no JVD, no lymphadenopathy. CHEST: Chest is clear to auscultation and percussion. CARDIAC: Regular rate and rhythm with no murmur gallop or rubs. ABDOMEN: Soft, nondistended, nontender; no hepatosplenomegaly; bowel sounds are present in all four quadrants. prior surgical scar on the left abd, it looks like an old PEG EXTREMITIES: No clubbing, cyanosis, or edema. SKIN: Normal; no rash; no jaundice. 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 Positive BM. Tolerating tube feeds, Afebrile. GI services were consulted for PEG tube placement. However, patient doesn't have family, he just has a penitentiary girlfriend. This was discussed with who will consult CM to located family in order to get consents - Respiratory failure/ healthcare associated pneumonia - per CCM - Hepatitis c - History of cocaine abuse - ESRD- HD Plan: - TF per dietary recommendations - Case discussed with , who will get case management on the case in effort to locate family - Await consents - EGD/PEG once consents are obtained - Supportive care - Patient seen and examined by Dr. Mirza and myself and this note is written on his behalf. (Lazarus Weinstein) Physician Comments Seen and exmained with Ms. Corinna BRAY, Egd/peg next week once consents obtained. Will follow, thank you (Breanna Mirza MD) Lazarus Weinstein Jun 10, 2016 16:53 Breanna Mirza MD Jun 10, 2016 17:30
--- NOTE | 2016-06-10 19:21 | PD.CAR.PN ---
CVT Progress Note Subjective/Hospital Course: Will proceed with tracheostomy Monday Thanks J Objective: Vital Signs Date Time Temp Pulse Resp B/P Pulse Ox O2 Delivery O2 Flow Rate FiO2 06/10/16 18:00 74 06/10/16 16:10 100 35 06/10/16 16:00 35 06/10/16 16:00 97.5 70 16 134/76 100 06/10/16 16:00 70 06/10/16 14:00 68 06/10/16 12:00 35 06/10/16 12:00 98.2 68 21 131/75 100 06/10/16 12:00 68 06/10/16 10:57 100 35 06/10/16 10:00 71 06/10/16 08:27 35 06/10/16 08:27 100 35 06/10/16 08:19 100 35 06/10/16 08:00 35 06/10/16 08:00 99.0 78 16 106/63 100 06/10/16 08:00 78 06/10/16 06:00 74 06/10/16 04:04 100 35 06/10/16 04:00 35 06/10/16 04:00 75 06/10/16 04:00 99.5 75 12 100/55 100 06/10/16 02:00 67 06/10/16 01:09 100 35 06/10/16 00:00 67 06/10/16 00:00 35 06/10/16 00:00 95.1 67 12 140/79 100 06/09/16 22:10 100 35 06/09/16 22:00 72 06/09/16 20:10 100 35 06/09/16 20:00 74 06/09/16 20:00 96.9 74 24 139/85 100 06/09/16 20:00 35 Result Diagram: 06/10/16 0405 06/10/16 0405 Alaina Bearden MD Jun 10, 2016 19:21
--- NOTE | 2016-06-10 22:56 | RADRPT ---
EXAM DATE/TIME: 06/10/2016 20:14 [place] COMPARISON: No previous studies available for comparison. INDICATIONS : Anoxic encephalopathy. MEDICAL HISTORY : Diabetes mellitus type 2. Hypertension. Hepatitis C. SURGICAL HISTORY : left upper arm/scrotum. ENCOUNTER: Subsequent ACUITY: 2 weeks PAIN SCORE: Nonresponsive. LOCATION: head TECHNIQUE: Multiplanar, multisequence MRI of the brain was performed without contrast. FINDINGS: CEREBRUM: The ventricles are normal for age. No evidence of midline shift, mass lesion, hemorrhage or acute in farction. No extraaxial fluid collections are seen. The pituitary gland and suprasellar cistern are normal in configuration. WHITE MATTER: Mild signal abnormalities are seen in the white matter. POSTERIOR FOSSA: The cerebellum and brainstem are intact. The 4th ventricle is midline. The cerebellopontine angle is unremarkable. The cerebellar tonsils are normal in position. DIFFUSION IMAGING: No focal areas of restricted diffusion are seen. No evidence of acute infarction. EXTRACRANIAL: The visualized portions of the orbits and paranasal sinuses are unremarkable. CONCLUSION: 1. Mild chronic-appearing ischemic changes in the periventricular white matter slightly progressed fr om 2013. No recent infarct, mass effect or midline shift. No hydrocephalus. Lakhwinder Pringle MD on June 10, 2016 at 22:53 Board Certified Radiologist. This report was verified electronically.
[2016-06-11] VITALS (19 sets, daily range): BP systolic 126–146; BP diastolic 67–77; PULSE 55–86; RESP 12–21; TEMP 96.9–99.4; O2SAT 97–100
[2016-06-11] MEDS: DEXMEDETOMIDINE INJ 50 ML IV SCH ×7 (00:44→22:13)
[2016-06-11] MEDS: PIPERACIL-TAZO 2.25 GM PREMIX 50 ML IV SCH ×3 (00:46→17:44)
[2016-06-11] MEDS: INSULIN NovoLIN REGULAR SUPPLEMENTAL SCALE SQ SCH ×4 (03:00→20:41)
[2016-06-11] MEDS: CHLORHEXIDINE GLUCONATE 2 % 1 PACK (2 CLOTHS) TOP SCH (04:00)
--- NOTE | 2016-06-11 04:09 | RADRPT ---
EXAM DATE/TIME: 06/11/2016 03:31 [facility] COMPARISON: CHEST SINGLE AP, June 07, 2016, 4:28. INDICATIONS : Shortness of breath, possible pulmonary disease. MEDICAL HISTORY : Renal failure, chronic. Stroke. Myocardial infarction. SURGICAL HISTORY : None. ENCOUNTER: Subsequent ACUITY: 1 week PAIN SCORE: Non-responsive. LOCATION: Bilateral chest FINDINGS: Endotracheal tube tip well above the josiane. Gastric tube traverses the [id number]. Lobar consol idation in the retrocardiac region loss of delineation of the entire left hemidiaphragm. Hazy opacit y in the right lower lung with lateral pleural thickening suggests a right pleural effusion. The hea rt size is upper limits normal for AP technique. CONCLUSION: Persistent left lower lobe consolidation and right pleural effusion. Earnest Torre MD on June 11, 2016 at 4:07 Board Certified Radiologist. This report was verified electronically.
[2016-06-11 04:17] LABS: AUTOMATED NEUTROPHIL # 2.6 TH/MM3 (1.8-7.7); EOSINOPHIL # 0.1 TH/MM3 (0-0.4); EOSINOPHIL % 3.3 % (0.0-4.0); HEMATOCRIT 31.7 % (39.0-51.0); HEMO FLAGS DIFF FINAL; LYMPH % 17.9 % (9.0-44.0); LYMPHOCYTE # 0.7 TH/MM3 (1.0-4.8); MEAN CELL VOLUME 91.4 FL (80.0-100.0); MEAN CORPUSCULAR HEMOGLOBIN 30.6 PG (27.0-34.0); MEAN CORPUSCULAR HGB CONC 33.4 % (32.0-36.0); MONO % 14.5 % (0.0-8.0); NEUT % 63.3 % (16.0-70.0); PLATELET COUNT 137 TH/MM3 (150-450); RED BLOOD COUNT 3.46 MIL/MM3 (4.50-5.90); RED CELL DISTRIBUTION WIDTH 13.8 % (11.6-17.2); WHITE BLOOD COUNT 4.1 TH/MM3 (4.0-11.0)
[2016-06-11 04:28] LABS: ALT (GPT) 35 U/L (12-78); ANION GAP 11 MEQ/L (5-15); AST (GOT) 52 U/L (15-37); BICARBONATE 27.1 MEQ/L (21.0-32.0); BLOOD UREA NITROGEN 60 MG/DL (7-18); CHLORIDE 98 MEQ/L (98-107); GLOMERULAR FILTRATION RATE 9 ML/MIN (>89); MAGNESIUM 2.3 MG/DL (1.5-2.5); POTASSIUM 3.9 MEQ/L (3.5-5.1); SODIUM (NA) 136 MEQ/L (136-145)
[2016-06-11 04:29] LABS: ALKALINE PHOSPHATASE 80 U/L (45-117); TOTAL BILIRUBIN ADULT 0.6 MG/DL (0.2-1.0)
[2016-06-11] MEDS: METOPROLOL TARTRATE 25 MG TAB PO/NG SCH ×3 (06:00→17:44)
[2016-06-11] MEDS: HEPARIN SODIUM - SQ 10,000 UNITS/ML VIAL SQ SCH ×3 (06:00→20:41)
[2016-06-11] MEDS: PROPOFOL 1000 MG/100 ML INJ 100 ML IV SCH ×2 (06:00→16:18)
[2016-06-11] MEDS: CHLORHEXIDINE 0.12% (ORAL KIT) 15 ML CUP MT SCH ×2 (08:18→20:43)
[2016-06-11] MEDS: SODIUM CHLORIDE 0.9% FLUSH 5 ML FLUSH IV FLUSH SCH ×2 (08:19→20:42)
[2016-06-11] MEDS: PANTOPRAZOLE SODIUM 40 MG VIAL IV SCH (08:19)
[2016-06-11] MEDS: CALCIUM ACETATE 667 MG CAP NG SCH ×2 (08:19→17:45)
[2016-06-11] MEDS: hydrALAZINE HCL 25 MG TAB PO SCH ×2 (08:19→17:45)
[2016-06-11] MEDS: ASPIRIN EC 81 MG TABEC PO SCH (08:19)
[2016-06-11] MEDS: DOCUSATE SODIUM 100 MG CAP PO SCH ×2 (08:19→20:42)
[2016-06-11] MEDS: cloNIDine HCL 0.1 MG TAB PO SCH ×2 (08:20→17:44)
--- NOTE | 2016-06-11 12:37 | HHI.NPPN ---
Subjective General Problems: Anemia Renal Failure: Chronic, End Stage Renal Disease Additional Remarks Patient remain on the vent. and minimal sedation. Remains non-communicative Review of Systems General General Remarks unable to evaluate due to intubation/sedation Objective Data Data 06/10/16 06/11/16 19:00 07:00 Intake Total 708 ml 849 ml Output Total 150 ml 50 ml Balance 558 ml 799 ml IV Total 364 ml 441 ml Tube Feeding 244 ml 348 ml Tube Irrigant 100 ml 60 ml Output Urine Total 0 ml Stool Total 150 ml 50 ml Vital Signs Date Time Temp Pulse Resp B/P Pulse Ox O2 Delivery O2 Flow Rate FiO2 06/11/16 07:27 100 55 06/11/16 07:27 35 06/11/16 06:00 57 06/11/16 04:30 100 35 06/11/16 04:00 55 06/11/16 04:00 97.5 55 12 138/67 100 06/11/16 04:00 35 06/11/16 02:00 61 06/11/16 01:15 100 35 06/11/16 00:00 35 06/11/16 00:00 64 06/11/16 00:00 96.9 64 12 146/76 100 06/10/16 22:32 100 35 06/10/16 22:00 64 06/10/16 20:00 66 06/10/16 20:00 35 06/10/16 20:00 98.3 66 12 139/71 100 06/10/16 19:45 100 100 06/10/16 18:00 74 06/10/16 16:10 100 35 06/10/16 16:00 35 06/10/16 16:00 97.5 70 16 134/76 100 06/10/16 16:00 70 06/10/16 14:00 68 -: 06/11/16 0356 06/11/16 0356 Tubes & Lines Comment ETT, OG tube Drip Comment Fentanyl Physical Exam Eyes Eye Exam: Pupils Equal, Pupils Reactive Neck Neck Exam: Neck Supple Pulmonary Resp Exam: Breath Sounds Equal, No Distress, Rhonchi, Decreased Bases, Diminished Breath Sounds Cardiology CV Exam: Regular, Normal Sinus Rhythm Gastrointestinal/Abdomen GI Exam: Soft, Non-Tender, Non-Distended Extremeties Extremities Exam: Trace Edema Neurologic Neuro Exam: Unresponsive, Sedated Assessment/Plan Discussed Condition With: Patient, Relative Assessment Summary: Anemia of CKD, Hypertension, End Stage Renal Disease Electrolyte Assessment: Hypocalcemia Problem List: (1) ESRD on dialysis Plan: T-Th-Mon HD schedule Has AVF left arm, monitor function Seen on HD today, plan for next HD Monday Volume status, electrolytes stable. Weaning as tolerated. (2) Hypertension Plan: BP is acceptable. He is on metoprolol, hydralazine, clonidine (3) DM (diabetes mellitus) Plan: continue insulin coverage goal to maintain blood glucose between 140 and 180 (4) Hyperkalemia Plan: corrected with dialysis, monitor for recurrence (5) NSTEMI (non-ST elevated myocardial infarction) Plan: Troponin I elevated post cardiac arrest, chest compressions. he had catheterization in January 2016, normal coronary arteries (6) Elevated LFTs Plan: Liver US: ? acute cholelithiasis may need additional scans (7) Cocaine abuse Plan: cessation advised Problem Qualifiers (1) Hypertension: Qualified Code: I10 - Essential hypertension (2) DM (diabetes mellitus): Qualified Code: E11.22 - Type 2 diabetes mellitus with diabetic chronic kidney disease, unspecified CKD stage, unspecified roasterman insulin use status Onel Casillas MD Jun 11, 2016 12:37
--- NOTE | 2016-06-11 17:53 | HHI.CCPN ---
Subjective Remarks/Hospital Course 05/28: 60 yo AAM with PMH of HTN, stroke without residual deficit, DM, nonischemic cardiomyopathy (EF 40% and stage I diastolic dysfunction) Cocaine abuse, Hepatitis C, ESRD on HD T/R/Sat who presents to [facility] for 2 day history of SOB. He reported symptoms started 1/ after he received hemodialysis. He reported a nonproductive cough without fevers, chills, or chest pain. His workup revealed a normal white count and CXR that demonstrated RLL consolidation. His potassium was 6.8. While preparations were being made to administer medications to address his hyperkalemia he developed bradycardia and PEA arrest. He underwent CPR and received epinephrine and 1 amp of bicarbonate. It was return of spontaneous circulation after 8 minutes. He was intubated by the emergency department physician Dr. Clancy. Dr. Francisco with nephrology was consulted and he made arrangements for urgent dialysis which is taking place currently. Target removal 3.8 L per HD RN. Postintubation CXR demonstrates R base infiltrate but also appears there is right pleural effusion. Influenza screen negative. Receive Zosyn and azithromycin in the emergency department. 05/29: Sedated, arousable, not following commands, orally intubated on mechanical ventilation. Gets agitated on lightening sedation and has a strong gag reflex. 05/30: Sedated, arousable, not following commands. Remains orally intubated on mechanical ventilation. Failed C Pap trial today. Dialyzed earlier. 05/31: Sedated/encephalopathic on lightening sedation, not following commands. Remains orally intubated on mechanical ventilation. Failed C Pap trials yesterday. 2-D echo just being completed today. 06/01 No events overnight. On Precedex drip unresponsive and doesn't follow commands. Afebrile. 06/02 Patient s/p HD yesterday with removal 1.5L , on Precedex infusion for sedation. 06/03 No events overnight. Sedated with fentanyl and intubated. s/p HD yesterday with removal 1.5L. 06/04 Patient remains sedated and intubated. Afebrile. Did not tolerate CPAP trials yesterday as he became tachypneic. 06/05 Patient s/p HD yesterday with removal 2L. Sedated with Fentanyl and intubated. Afebrile. Patient gets very agitated and restless when sedation is weaned off. 06/06 Patient is sedated with Fentanyl placed on Diprivan as well last night. Gets agitated and tachypneic on CPAP trials. s/p HD yesterday with removal 2L. 06/07: Remains sedated/encephalopathic, orally intubated on mechanical ventilation. Failed C Pap trials yesterday. 06/08: Remains sedated/encephalopathic, orally intubated on mechanical ventilation. Gets agitated on lightening sedation however not following commands. We'll attempt Precedex and titrate down on fentanyl/propofol 06/09: Remains sedated/encephalopathic, orally intubated on mechanical ventilation. On Precedex/propofol/fentanyl. Will attempt transitioning to Precedex alone to control agitation for C Pap trials. 06/10: Still requiring Precedex/propofol and fentanyl for CPAP trials. Patient continues to be extremely agitated and currently unable to extubate. Not following commands. Positive BM. Tolerating tube feeds. Afebrile. Subjective 06/11: On Precedex drip currently. -3 L of hemodialysis. Moving all 4 extremities but not following commands. Objective Vital Signs Date Time Temp Pulse Resp B/P Pulse Ox O2 Delivery O2 Flow Rate FiO2 06/11/16 16:20 100 35 06/11/16 16:00 80 06/11/16 04:00 97.5 12 138/67 Intake and Output 06/10/16 06/10/16 06/11/16 08:00 16:00 00:00 Intake Total 449 ml 708 ml 533 ml Output Total 50 ml 150 ml 0 ml Balance 399 ml 558 ml 533 ml Result Diagram: 06/11/16 0356 06/11/16 0356 Imaging Last Impressions Chest X-Ray 06/11/16 0600 Signed Impressions: Service Date/Time: Saturday, June 11, 2016 03:31 - CONCLUSION: Persistent left lower lobe consolidation and right pleural effusion. Earnest Torre MD Brain MRI 06/10/16 0000 Signed Impressions: Service Date/Time: Friday, June 10, 2016 20:14 - CONCLUSION: 1. Mild chronic-appearing ischemic changes in the periventricular white matter slightly progressed from 2013. No recent infarct, mass effect or midline shift. No hydrocephalus. Lakhwinder Pringle MD Liver Ultrasound 06/01/16 0000 Signed Impressions: Service Date/Time: Wednesday, June 01, 2016 15:38 - CONCLUSION: 1. Bilateral pleural effusions. 2. Thick-walled gallbladder with minimal pericholecystic fluid. If there is clinical concern for acute cholecystitis a hepatobiliary scan may be helpful to confirm cystic duct obstruction. 3. Minimal ascites. 4. Echogenic atrophic right kidney. 5. Mild nonspecific prominence of the main pancreatic duct. Enzo Price MD Head CT 05/29/16 0000 Signed Impressions: Service Date/Time: Sunday, May 29, 2016 03:03 - CONCLUSION: Age- appropriate atrophy, stable from prior in September 2015. No acute findings. Earnest Torre MD Lower Extremity Ultrasound 05/28/16 0000 Signed Impressions: Service Date/Time: Saturday, May 28, 2016 22:27 - CONCLUSION: Negative for deep venous thrombosis bilateral lower extremity. Earnest Torre MD Objective Remarks GENERAL: 60 yo AA male, critically ill currently orotracheally intubated. SKIN: Warm and dry. No rash HEAD: Normocephalic. EYES: Pupils minimally reactive at 2 mm bilaterally. No scleral icterus. No injection or drainage. NECK: Supple, trachea midline. No JVD or lymphadenopathy. CARDIOVASCULAR: Regular rate and rhythm with S1, S2. No S4. Went over 6 systolic murmur at the apex RESPIRATORY: Breath sounds equal bilaterally. No accessory muscle use. GASTROINTESTINAL: Abdomen soft, non-tender, nondistended. Prior scar from PEG tube in left lower quadrant. MUSCULOSKELETAL: No disc and peripheral edema. Positive thrill left AV fistula. Neuro: Intubated, encephalopathic, moves all 4 extremities, nonpurposeful, not following commands on lightening sedation but gets agitated. A/P Assessment and Plan NEURO: Acute encephalopathy, post cardiac arrest. History of stroke without residual deficit (per friend's report) History of cocaine abuse Posttraumatic stress disorder On Fentanyl, Diprivan infusion for sedation/analgesia while intubated. Daily sedation vacation Precedex and attempt to titrate down on propofol and fentanyl Sedated/encephalopathic EEG showed mod. slowing, possible focus for epileptic activity Repeat EEG today. MRI brain ordered as well. Check ammonia level in a.m. Neuro is following-Dr. Wilks peripherally RESP: Acute respiratory failure Healthcare associated pneumonia Intubated in ED 05/28/16 following cardiac arrest Continue with vent support keep sat >92% Duoneb q6 hours. Albuterol q2 prn. Ventilator Bundle. Daily SBT as leana. Patient has been intubated since 05/[address] Lee as family desires aggressive care. CV: Cardiac arrest, secondary to hyperkalemia Nonischemic cardiomyopathy secondary to HTN, cocaine abuse Hypertension Elevated Troponin: ? NSTEMI Monitor HR and BP keep MAP>65mmHg Continue home meds: Hydralazine 25 tid. Clonidine 0.1 tid., Lopressor 25mg Q6 ( 100 mg twice a day at home ASA 81 mg daily will be continued. Echo 05/31: EF 25-30%, no RWMA. Mild MR/TR. MEGAN 36 mmHg cardiac cath 12/09/2012 - EF 40%, normal coronaries. Elevated troponin, cardiac arrest. Per cardiology-no intervention planned. GI: Hepatitis C Elevated LFT Continue TF-Nepro@40ml/hr Monitor LFT's: Trending down US liver: Bilateral pleural effusions. Thick-walled gallbladder with minimal pericholecystic fluid. Minimal ascites. Echogenic atrophic right kidney. Mild nonspecific prominence of the main pancreatic duct. Protonix for GI prophylaxis Colace for bowel regimen FEN/RENAL: ESRD Acute severe hyperkalemia - resolved Intermittent hemodialysis per nephrology (Dr. Francisco) Emergent HD 05/28 due to potassium of 6.8 with bradycardia and cardiac arrest Monitor renal function, I/O's, avoid nephrotoxins. s/p HD today with 3L removed. ID: Acute healthcare associated pneumonia Received Zosyn and azithromycin in the emergency department 05/28. On Zosyn 2.25 g IV every 8 hours dosed for pneumonia/ESRD since 05/29. Currently off Azithromycin as been treated for 10 days 05/28 nasal washing negative for Influenza. Pertinent cultures 05/28 - blood cultures 2 - 1 out of 2 corynebacterium not Jk 05/29 Sputum- beta strep not A HEME: Normocytic anemia Thrombocytopenia Monitor CBC ENDO: Diabetes mellitus Medium dose Insulin sliding scale with bedside glucose every 6 hours PROPH: Heparin 5000 units subcutaneous ERICKA for DVT prophylaxis. Protonix 40 mg IV daily for stress ulcer prophylaxis. Doppler US LE negative for DVT ACCESS: Peripheral IV providing adequate access at this time. Left AV fistula accessed for hemodialysis Full code Palliative care is following to assist with deciding goals of therapy. Consult ordered for tracheostomy and PEG tube placement. Critical Care: The total critical care time was 35 minutes. Time to perform other separately billable procedures was not included in the critical care time. Chevy Gonzales MD Jun 11, 2016 17:53
[2016-06-12] VITALS (18 sets, daily range): BP systolic 133–161; BP diastolic 66–84; PULSE 55–73; RESP 12–14; TEMP 97.4–97.9; O2SAT 99–100
--- NOTE | 2016-06-12 00:10 | MG ---
cc: ALEE BECKMAN MD Lab No: [id number] Date: 06/11/16 Age: 60 Sex: M Race: DATE OF 1955 HISTORY A 60-year-old with history of cardiac arrest, confusion. Generalized slowing 1-3 Hz delta activity with superimposed theta 4-5 Hz, 10-40 microvolts, some electrical artifact in the frontal channels eliminated when changed to trace montage. No significant driving with photic stimulation. EEG variability reactivity noted. Single lead EKG showing sinus rhythm. INTERPRETATION Mild encephalopathy in possible sleep state. Clinical correlation. Alee Beckman MD MG/EO /9:35 PM /11:50 PM
[2016-06-12] MEDS: METOPROLOL TARTRATE 25 MG TAB PO/NG SCH ×4 (00:18→17:12)
[2016-06-12] MEDS: PIPERACIL-TAZO 2.25 GM PREMIX 50 ML IV SCH ×2 (00:18→09:36)
[2016-06-12] MEDS: PROPOFOL 1000 MG/100 ML INJ 100 ML IV SCH ×4 (00:52→20:14)
[2016-06-12] MEDS: DEXMEDETOMIDINE INJ 50 ML IV SCH ×3 (00:52→08:15)
[2016-06-12] MEDS: INSULIN NovoLIN REGULAR SUPPLEMENTAL SCALE SQ SCH ×4 (03:00→21:00)
--- NOTE | 2016-06-12 03:24 | RADRPT ---
EXAM DATE/TIME: 06/12/2016 02:05 [facility] COMPARISON: CHEST SINGLE AP, June 11, 2016, 3:31. INDICATIONS : Shortness of breath, possible pulmonary disease. MEDICAL HISTORY : Renal failure, chronic. Stroke. Myocardial infarction. SURGICAL HISTORY : None. ENCOUNTER: Subsequent ACUITY: 1 week PAIN SCORE: Non-responsive. LOCATION: Bilateral chest FINDINGS: Endotracheal tube well above the josiane. Gastric tube traverses the [id number]. There is persist ing consolidation in the left lower lung which has improved slightly. Persistent opacity in the righ t costophrenic angle suggests pleural effusion; this is also decreased. The heart is moderately enla rged, stable in size. CONCLUSION: Improving left lower lobe consolidation and right pleural effusion. Earnest Torre MD on June 12, 2016 at 3:22 Board Certified Radiologist. This report was verified electronically.
[2016-06-12] MEDS: CHLORHEXIDINE GLUCONATE 2 % 1 PACK (2 CLOTHS) TOP SCH (04:00)
[2016-06-12 05:25] LABS: AUTOMATED NEUTROPHIL # 3.7 TH/MM3 (1.8-7.7); BASOPHIL # 0.1 TH/MM3 (0-0.2); BASOPHIL % 1.1 % (0.0-2.0); EOSINOPHIL # 0.1 TH/MM3 (0-0.4); EOSINOPHIL % 1.6 % (0.0-4.0); HEMATOCRIT 30.9 % (39.0-51.0); HEMO FLAGS DIFF FINAL; LYMPH % 15.4 % (9.0-44.0); LYMPHOCYTE # 0.8 TH/MM3 (1.0-4.8); MEAN CORPUSCULAR HEMOGLOBIN 30.5 PG (27.0-34.0); MEAN CORPUSCULAR HGB CONC 33.5 % (32.0-36.0); NEUT % 69.9 % (16.0-70.0); PLATELET COUNT 154 TH/MM3 (150-450); RED BLOOD COUNT 3.39 MIL/MM3 (4.50-5.90); RED CELL DISTRIBUTION WIDTH 13.8 % (11.6-17.2); WHITE BLOOD COUNT 5.3 TH/MM3 (4.0-11.0)
[2016-06-12] MEDS: HEPARIN SODIUM - SQ 10,000 UNITS/ML VIAL SQ SCH ×3 (05:47→22:16)
[2016-06-12 05:49] LABS: ALKALINE PHOSPHATASE 92 U/L (45-117); ALT (GPT) 34 U/L (12-78); ANION GAP 12 MEQ/L (5-15); AST (GOT) 51 U/L (15-37); BICARBONATE 29.8 MEQ/L (21.0-32.0); BLOOD UREA NITROGEN 47 MG/DL (7-18); CHLORIDE 95 MEQ/L (98-107); GLOMERULAR FILTRATION RATE 12 ML/MIN (>89); MAGNESIUM 2.1 MG/DL (1.5-2.5); POTASSIUM 3.6 MEQ/L (3.5-5.1); SODIUM (NA) 137 MEQ/L (136-145); TOTAL BILIRUBIN ADULT 0.5 MG/DL (0.2-1.0)
[2016-06-12] MEDS: ASPIRIN EC 81 MG TABEC PO SCH (08:14)
[2016-06-12] MEDS: PANTOPRAZOLE SODIUM 40 MG VIAL IV SCH (08:14)
[2016-06-12] MEDS: DOCUSATE SODIUM 100 MG CAP PO SCH ×2 (08:14→20:13)
[2016-06-12] MEDS: hydrALAZINE HCL 25 MG TAB PO SCH ×3 (08:14→17:12)
[2016-06-12] MEDS: CHLORHEXIDINE 0.12% (ORAL KIT) 15 ML CUP MT SCH ×2 (08:14→20:13)
[2016-06-12] MEDS: cloNIDine HCL 0.1 MG TAB PO SCH ×3 (08:14→17:12)
[2016-06-12] MEDS: CALCIUM ACETATE 667 MG CAP NG SCH ×3 (08:14→17:12)
[2016-06-12] MEDS: SODIUM CHLORIDE 0.9% FLUSH 5 ML FLUSH IV FLUSH SCH ×2 (08:16→20:13)
--- NOTE | 2016-06-12 11:13 | HHI.NPPN ---
Subjective General Problems: Anemia Renal Failure: Chronic, End Stage Renal Disease Additional Remarks Patient remain on the vent. and minimal sedation. Remains non-communicative Review of Systems General General Remarks unable to evaluate due to intubation/sedation Objective Data Data 06/11/16 06/12/16 19:00 07:00 Intake Total 300 ml 1577 ml Output Total 3000 ml 225 ml Balance -2700 ml 1352 ml IV Total 100 ml 905 ml Tube Feeding 200 ml 672 ml Output Urine Total 225 ml Hemodialysis 3000 ml # Bowel Movements 3 2 Vital Signs Date Time Temp Pulse Resp B/P Pulse Ox O2 Delivery O2 Flow Rate FiO2 06/12/16 08:23 100 35 06/12/16 08:23 35 06/12/16 06:00 67 06/12/16 04:17 100 35 06/12/16 04:00 60 06/12/16 04:00 97.6 60 12 143/74 100 06/12/16 04:00 35 06/12/16 02:00 70 06/12/16 01:25 100 35 06/12/16 00:00 35 06/12/16 00:00 73 06/12/16 00:00 97.7 73 14 136/70 100 06/11/16 22:15 100 35 06/11/16 22:00 71 06/11/16 20:00 70 06/11/16 20:00 99.4 70 12 126/67 100 06/11/16 20:00 35 06/11/16 19:35 100 35 06/11/16 18:00 79 06/11/16 16:20 100 35 06/11/16 16:00 80 06/11/16 16:00 35 06/11/16 16:00 97.0 80 21 127/77 97 06/11/16 14:15 99 35 06/11/16 14:00 86 06/11/16 12:00 76 -: 06/12/16 0429 06/12/16 0429 Tubes & Lines Comment ETT, OG tube Drip Comment Fentanyl Physical Exam Eyes Eye Exam: Pupils Equal, Pupils Reactive Neck Neck Exam: Neck Supple Pulmonary Resp Exam: Breath Sounds Equal, No Distress, Rhonchi, Decreased Bases, Diminished Breath Sounds Cardiology CV Exam: Regular, Normal Sinus Rhythm Gastrointestinal/Abdomen GI Exam: Soft, Non-Tender, Non-Distended Extremeties Extremities Exam: Trace Edema Neurologic Neuro Exam: Unresponsive, Sedated Assessment/Plan Discussed Condition With: Patient, Relative Assessment Summary: Anemia of CKD, Hypertension, End Stage Renal Disease Electrolyte Assessment: Hypocalcemia Problem List: (1) ESRD on dialysis Plan: T--Mon HD schedule Has AVF left arm, monitor function 3L UF done yesterday, plan for next HD Monday Volume status, electrolytes stable. Weaning as tolerated. Remains intubated, for trach tomorrow. Follow with neurology, ongoing encephalopathy (2) Hypertension Plan: BP is acceptable. He is on metoprolol, hydralazine, clonidine (3) DM (diabetes mellitus) Plan: continue insulin coverage goal to maintain blood glucose between 140 and 180 (4) Hyperkalemia Plan: corrected with dialysis, monitor for recurrence (5) NSTEMI (non-ST elevated myocardial infarction) Plan: Troponin I elevated post cardiac arrest, chest compressions. he had catheterization in January 2016, normal coronary arteries (6) Elevated LFTs Plan: Liver US: ? acute cholelithiasis may need additional scans (7) Cocaine abuse Plan: cessation advised Problem Qualifiers (1) Hypertension: Qualified Code: I10 - Essential hypertension (2) DM (diabetes mellitus): Qualified Code: E11.22 - Type 2 diabetes mellitus with diabetic chronic kidney disease, unspecified CKD stage, unspecified roasterman insulin use status Onel Casillas MD Jun 12, 2016 11:13
[2016-06-12] MEDS: DEXMEDETOMIDINE INJ 1,000 MCG in SODIUM CHLOR 0.9% 250 ML INJ 250 ML IV SCH (14:35)
--- NOTE | 2016-06-12 16:28 | HHI.CCPN ---
Subjective Remarks/Hospital Course 05/28: 60 yo AAM with PMH of HTN, stroke without residual deficit, DM, nonischemic cardiomyopathy (EF 40% and stage I diastolic dysfunction) Cocaine abuse, Hepatitis C, ESRD on HD T/R/Sat who presents to [facility] for 2 day history of SOB. He reported symptoms started 1/ after he received hemodialysis. He reported a nonproductive cough without fevers, chills, or chest pain. His workup revealed a normal white count and CXR that demonstrated RLL consolidation. His potassium was 6.8. While preparations were being made to administer medications to address his hyperkalemia he developed bradycardia and PEA arrest. He underwent CPR and received epinephrine and 1 amp of bicarbonate. It was return of spontaneous circulation after 8 minutes. He was intubated by the emergency department physician Dr. Clancy. Dr. Francisco with nephrology was consulted and he made arrangements for urgent dialysis which is taking place currently. Target removal 3.8 L per HD RN. Postintubation CXR demonstrates R base infiltrate but also appears there is right pleural effusion. Influenza screen negative. Receive Zosyn and azithromycin in the emergency department. 05/29: Sedated, arousable, not following commands, orally intubated on mechanical ventilation. Gets agitated on lightening sedation and has a strong gag reflex. 05/30: Sedated, arousable, not following commands. Remains orally intubated on mechanical ventilation. Failed C Pap trial today. Dialyzed earlier. 05/31: Sedated/encephalopathic on lightening sedation, not following commands. Remains orally intubated on mechanical ventilation. Failed C Pap trials yesterday. 2-D echo just being completed today. 06/01 No events overnight. On Precedex drip unresponsive and doesn't follow commands. Afebrile. 06/02 Patient s/p HD yesterday with removal 1.5L , on Precedex infusion for sedation. 06/03 No events overnight. Sedated with fentanyl and intubated. s/p HD yesterday with removal 1.5L. 06/04 Patient remains sedated and intubated. Afebrile. Did not tolerate CPAP trials yesterday as he became tachypneic. 06/05 Patient s/p HD yesterday with removal 2L. Sedated with Fentanyl and intubated. Afebrile. Patient gets very agitated and restless when sedation is weaned off. 06/06 Patient is sedated with Fentanyl placed on Diprivan as well last night. Gets agitated and tachypneic on CPAP trials. s/p HD yesterday with removal 2L. 06/07: Remains sedated/encephalopathic, orally intubated on mechanical ventilation. Failed C Pap trials yesterday. 06/08: Remains sedated/encephalopathic, orally intubated on mechanical ventilation. Gets agitated on lightening sedation however not following commands. We'll attempt Precedex and titrate down on fentanyl/propofol 06/09: Remains sedated/encephalopathic, orally intubated on mechanical ventilation. On Precedex/propofol/fentanyl. Will attempt transitioning to Precedex alone to control agitation for C Pap trials. 06/10: Still requiring Precedex/propofol and fentanyl for CPAP trials. Patient continues to be extremely agitated and currently unable to extubate. Not following commands. Positive BM. Tolerating tube feeds. Afebrile. 06/11: On Precedex drip currently. -3 L of hemodialysis. Moving all 4 extremities but not following commands. Subjective 06/12: no changes. plan for PEG and Trach tomorrow. Objective Vital Signs Date Time Temp Pulse Resp B/P Pulse Ox O2 Delivery O2 Flow Rate FiO2 06/12/16 15:09 99 35 06/12/16 14:00 58 06/12/16 12:00 97.9 12 133/66 Intake and Output 06/11/16 06/11/16 06/12/16 08:00 16:00 00:00 Intake Total 316 ml 300 ml 1088 ml Output Total 50 ml 3000 ml 200 ml Balance 266 ml -2700 ml 888 ml Result Diagram: 06/12/16 0429 06/12/16 0429 Imaging Last Impressions Chest X-Ray 06/11/16 0600 Signed Impressions: Service Date/Time: Saturday, June 11, 2016 03:31 - CONCLUSION: Persistent left lower lobe consolidation and right pleural effusion. Earnest Torre MD Brain MRI 06/10/16 0000 Signed Impressions: Service Date/Time: Friday, June 10, 2016 20:14 - CONCLUSION: 1. Mild chronic-appearing ischemic changes in the periventricular white matter slightly progressed from 2014. No recent infarct, mass effect or midline shift. No hydrocephalus. Lakhwinder Pringle MD Liver Ultrasound 06/01/16 0000 Signed Impressions: Service Date/Time: Wednesday, June 01, 2016 15:38 - CONCLUSION: 1. Bilateral pleural effusions. 2. Thick-walled gallbladder with minimal pericholecystic fluid. If there is clinical concern for acute cholecystitis a hepatobiliary scan may be helpful to confirm cystic duct obstruction. 3. Minimal ascites. 4. Echogenic atrophic right kidney. 5. Mild nonspecific prominence of the main pancreatic duct. Enzo Price MD Head CT 05/29/16 0000 Signed Impressions: Service Date/Time: Sunday, May 29, 2016 03:03 - CONCLUSION: Age- appropriate atrophy, stable from prior in September 2015. No acute findings. Earnest Torre MD Lower Extremity Ultrasound 05/28/16 0000 Signed Impressions: Service Date/Time: Saturday, May 28, 2016 22:27 - CONCLUSION: Negative for deep venous thrombosis bilateral lower extremity. Earnest Torre MD Objective Remarks GENERAL: 60 yo AA male, critically ill currently orotracheally intubated. SKIN: Warm and dry. No rash HEAD: Normocephalic. EYES: Pupils minimally reactive at 2 mm bilaterally. No scleral icterus. No injection or drainage. NECK: Supple, trachea midline. No JVD or lymphadenopathy. CARDIOVASCULAR: Regular rate and rhythm with S1, S2. No S4. Went over 6 systolic murmur at the apex RESPIRATORY: Breath sounds equal bilaterally. No accessory muscle use. GASTROINTESTINAL: Abdomen soft, non-tender, nondistended. Prior scar from PEG tube in left lower quadrant. MUSCULOSKELETAL: No disc and peripheral edema. Positive thrill left AV fistula. Neuro: Intubated, encephalopathic, moves all 4 extremities, nonpurposeful, not following commands on lightening sedation but gets agitated. A/P Assessment and Plan NEURO: Acute encephalopathy, post cardiac arrest. History of stroke without residual deficit (per friend's report) History of cocaine abuse Posttraumatic stress disorder On precedex, propofol infusion for sedation/analgesia while intubated. Daily sedation vacation Sedated/encephalopathic Neuro is following-Dr. Wilks peripherally RESP: Acute respiratory failure Healthcare associated pneumonia Intubated in ED 05/28/16 following cardiac arrest Continue with vent support keep sat >92% Duoneb q6 hours. Albuterol q2 prn. Ventilator Bundle. Daily SBT as leana. Patient has been intubated since 05/[address] Lee as family desires aggressive care. -- continues to fail SBT due to altered mental status. not on pathway. if vent were removed, the patient would . remains critically ill. CV: Cardiac arrest, secondary to hyperkalemia Nonischemic cardiomyopathy secondary to HTN, cocaine abuse Hypertension Elevated Troponin: ? NSTEMI Monitor HR and BP keep MAP>65mmHg Continue home meds: Hydralazine 25 tid. Clonidine 0.1 tid., Lopressor 25mg Q6 ( 100 mg twice a day at home ASA 81 mg daily will be continued. Echo 05/31: EF 25-30%, no RWMA. Mild MR/TR. MEGAN 36 mmHg cardiac cath 12/09/2012 - EF 40%, normal coronaries. Elevated troponin, cardiac arrest. Per cardiology-no intervention planned. GI: Hepatitis C Elevated LFT Continue TF-Nepro@40ml/hr Monitor LFT's: Trending down US liver: Bilateral pleural effusions. Thick-walled gallbladder with minimal pericholecystic fluid. Minimal ascites. Echogenic atrophic right kidney. Mild nonspecific prominence of the main pancreatic duct. Protonix for GI prophylaxis Colace for bowel regimen FEN/RENAL: ESRD Acute severe hyperkalemia - resolved Intermittent hemodialysis per nephrology (Dr. Francisco) Emergent HD 05/28 due to potassium of 6.8 with bradycardia and cardiac arrest Monitor renal function, I/O's, avoid nephrotoxins. s/p HD today with 3L removed. ID: Acute healthcare associated pneumonia Received Zosyn and azithromycin in the emergency department 05/28. On Zosyn 2.25 g IV every 8 hours dosed for pneumonia/ESRD since 05/29. Currently off Azithromycin as been treated for 10 days 05/28 nasal washing negative for Influenza. will d/c zosyn, has been on abx for > 14 days. will osborn culture and broaden for fever. Pertinent cultures 05/28 - blood cultures 2 - 1 out of 2 corynebacterium not Jk 05/29 Sputum- beta strep not A HEME: Normocytic anemia Thrombocytopenia Monitor CBC ENDO: Diabetes mellitus Medium dose Insulin sliding scale with bedside glucose every 6 hours PROPH: Heparin 5000 units subcutaneous ERICKA for DVT prophylaxis. Protonix 40 mg IV daily for stress ulcer prophylaxis. Doppler US LE negative for DVT ACCESS: Peripheral IV providing adequate access at this time. Left AV fistula accessed for hemodialysis Full code Palliative care is following to assist with deciding goals of therapy. Consult ordered for tracheostomy and PEG tube placement. Critical Care: The total critical care time was 31 minutes. Time to perform other separately billable procedures was not included in the critical care time. Epi Holcomb MD Jun 12, 2016 16:28
[2016-06-13] VITALS (19 sets, daily range): BP systolic 118–153; BP diastolic 58–83; PULSE 59–83; RESP 12–15; TEMP 96.9–98.5; O2SAT 96–100
[2016-06-13] MEDS: METOPROLOL TARTRATE 25 MG TAB PO/NG SCH ×4 (00:24→17:59)
[2016-06-13] MEDS: INSULIN NovoLIN REGULAR SUPPLEMENTAL SCALE SQ SCH ×4 (03:00→21:00)
[2016-06-13] MEDS: CHLORHEXIDINE GLUCONATE 2 % 1 PACK (2 CLOTHS) TOP SCH (04:00)
[2016-06-13] MEDS: HEPARIN SODIUM - SQ 10,000 UNITS/ML VIAL SQ SCH ×3 (06:13→22:00)
[2016-06-13] MEDS: DEXMEDETOMIDINE INJ 1,000 MCG in SODIUM CHLOR 0.9% 250 ML INJ 250 ML IV SCH ×3 (06:17→23:14)
[2016-06-13] MEDS: CHLORHEXIDINE 0.12% (ORAL KIT) 15 ML CUP MT SCH ×2 (08:01→23:10)
[2016-06-13] MEDS: hydrALAZINE HCL 25 MG TAB PO SCH ×3 (08:02→17:59)
[2016-06-13] MEDS: DOCUSATE SODIUM 100 MG CAP PO SCH ×2 (08:02→21:00)
[2016-06-13] MEDS: ASPIRIN EC 81 MG TABEC PO SCH (08:02)
[2016-06-13] MEDS: PANTOPRAZOLE SODIUM 40 MG VIAL IV SCH (08:02)
[2016-06-13] MEDS: cloNIDine HCL 0.1 MG TAB PO SCH ×3 (08:02→18:00)
[2016-06-13] MEDS: CALCIUM ACETATE 667 MG CAP NG SCH ×3 (08:02→17:59)
[2016-06-13] MEDS: SODIUM CHLORIDE 0.9% FLUSH 5 ML FLUSH IV FLUSH SCH ×2 (08:02→23:13)
[2016-06-13 08:06] LABS: PROTHROMBIN TIME - PATIENT 10.7 SEC (9.8-11.6)
[2016-06-13 10:15] LABS: BICARBONATE 22.3 MEQ/L (21.0-32.0)
--- NOTE | 2016-06-13 10:45 | HHI.HCPN ---
Reason for visit a. To assist with evaluation and management of symptoms including: dyspnea, encephalopathy b. To assist medical decision maker(s) with: better understanding of current medical conditions; weighing benefits/burdens of medical treatment options; making medical treatment decisions. Subjective/Interval History Patient seen today to follow-up on comfort , goals with decision makers. Discussed with social science professor Dr. Holcomb --patient will require tracheostomy/PEG this week if goals remain aggressive, notified family is present at bedside. Met with family at bedside (proxy/ significant other, as well as her brother), Amalia, [facility] medical student also present for meeting. Pt has remained in ICU, requiring sedation and mechanical vent. Tolerating CPAP though limited by periods of agitation. Tolerated from around 8 AM to around 3 PM yesterday. Has cont to require sedation for agitation, currently on Diprivan and Precedex. CXR yesterday improving left lower lobe consolidation , right effusion. CBCs remained stable. Chemistry BUN/creatinine consistent with hemodialysis/end-stage renal failure. Patient seen in room with significant other, her brother at bedside. He is minimally responsive to my exam, on sedation. Review is significant other hospital course thus far, multiple underlying conditions, and uncertain how much neurological improvement he will make. Review with them trajectory and requirement for tracheostomy and PEG if ongoing aggressive treatments desired. All questions answered. They have questions regarding if a tracheostomy is per minute, advises some patients are able to wean off and decannulate though this would not be known yet for Mr. Bloom. They decide to proceed with tracheostomy and PEG as they feel this point patient would want to try. Discussed with nurse, critical care Dr Holcomb. Advance Directives Living Will: Never completed Health Care Surrogate: Never completed Durable Power of Latent Fingerprint Examiner: Never completed Objective Vital Signs Date Time Temp Pulse Resp B/P Pulse Ox O2 Delivery O2 Flow Rate FiO2 06/13/16 08:31 100 35 06/13/16 08:00 97.9 62 12 120/63 100 06/13/16 08:00 35 06/13/16 08:00 60 06/13/16 06:00 60 06/13/16 04:07 96 35 06/13/16 04:00 35 06/13/16 04:00 61 06/13/16 04:00 98.5 61 12 151/76 100 06/13/16 02:00 62 06/13/16 01:05 100 35 06/13/16 00:00 97.6 59 12 142/70 100 06/13/16 00:00 35 06/13/16 00:00 59 06/12/16 22:02 100 35 06/12/16 22:00 58 06/12/16 20:00 59 06/12/16 20:00 97.4 59 12 161/84 100 06/12/16 20:00 35 06/12/16 18:00 55 06/12/16 16:00 62 06/12/16 16:00 97.9 61 14 143/72 100 06/12/16 16:00 35 06/12/16 15:09 99 35 06/12/16 14:00 58 06/12/16 12:00 97.9 56 12 133/66 100 06/12/16 12:00 35 06/12/16 12:00 56 06/12/16 11:57 99 35 Intake & Output 06/13/16 06/13/16 07:00 19:00 Intake Total 1021 ml Output Total 90.0 ml 0 ml Balance 931.0 ml 0 ml IV Total 727 ml Tube Feeding 264 ml Other 30 ml Output Urine Total 90 ml Tube Feeding Residual Discard 0 ml 0 ml # Bowel Movements 2 Physical Exam CONSTITUTIONAL/GENERAL: This is an adequately nourished patient, in no apparent distress, sedated on mechanical vent TUBES/LINES/DRAINS: PIV x 2 RUE, OGT, ETT, restraints BUE CARDIOVASCULAR: Regular rate and rhythm without murmurs. peripheral pulses symmetric. RESPIRATORY/CHEST: Symmetric, unlabored respirations [facility]. Clear to auscultation. GASTROINTESTINAL: Abdomen soft, nondistended. No hepato-splenomegaly, or palpable masses. Bowel sounds active. TF infusing via OGT. + 3 palpable, small nodular , mobile firm masses to abdomen (? r/t Sq heparin) NEUROLOGICAL: sedated on mech vent-- limited assessment. No eye opening. Withdraws/localizes to pain stimuli on BLE, extremities no response from upper. Does not follow any commands, on sedation. Restraints 2. PSYCHIATRIC: Limited assessment due to clinical conditionno apparent distress during my exam though nursing reports agitation just prior to my arrival Diagnostic Tests Laboratory Laboratory Tests Test 1/2106/12/16 06/13/16 06/13/16 03:56 04:29 06:51 09:10 White Blood Count 4.1 TH/MM3 5.3 TH/MM3 (4.0-11.0) (4.0-11.0) Red Blood Count 3.46 MIL/MM3 3.39 MIL/MM3 (4.50-5.90) (4.50-5.90) Hemoglobin 10.6 GM/DL 10.4 GM/DL (13.0-17.0) (13.0-17.0) Hematocrit 31.7 % 30.9 % (39.0-51.0) (39.0-51.0) Mean Corpuscular Volume 91.4 FL 91.0 FL (80.0-100.0) (80.0-100.0) Mean Corpuscular Hemoglobin 30.6 PG 30.5 PG (27.0-34.0) (27.0-34.0) Mean Corpuscular Hemoglobin 33.4 % 33.5 % Concent (32.0-36.0) (32.0-36.0) Red Cell Distribution Width 13.8 % 13.8 % (11.6-17.2) (11.6-17.2) Platelet Count 137 TH/MM3 154 TH/MM3 (150-450) (150-450) Mean Platelet Volume 11.7 FL 11.3 FL (7.0-11.0) (7.0-11.0) Neutrophils (%) (Auto) 63.3 % 69.9 % (16.0-70.0) (16.0-70.0) Lymphocytes (%) (Auto) 17.9 % 15.4 % (9.0-44.0) (9.0-44.0) Monocytes (%) (Auto) 14.5 % 12.0 % (0.0-8.0) (0.0-8.0) Eosinophils (%) (Auto) 3.3 % (0.0-4.0) 1.6 % (0.0-4.0) Basophils (%) (Auto) 1.0 % (0.0-2.0) 1.1 % (0.0-2.0) Neutrophils # (Auto) 2.6 TH/MM3 3.7 TH/MM3 (1.8-7.7) (1.8-7.7) Lymphocytes # (Auto) 0.7 TH/MM3 0.8 TH/MM3 (1.0-4.8) (1.0-4.8) Monocytes # (Auto) 0.6 TH/MM3 0.6 TH/MM3 (0-0.9) (0-0.9) Eosinophils # (Auto) 0.1 TH/MM3 0.1 TH/MM3 (0-0.4) (0-0.4) Basophils # (Auto) 0.0 TH/MM3 0.1 TH/MM3 (0-0.2) (0-0.2) CBC Comment DIFF FINAL DIFF FINAL Differential Comment Sodium Level 136 MEQ/L 137 MEQ/L 137 MEQ/L (136-145) (136-145) (136-145) Potassium Level 3.9 MEQ/L 3.6 MEQ/L 6.0 MEQ/L (3.5-5.1) (3.5-5.1) (3.5-5.1) Chloride Level 98 MEQ/L 95 MEQ/L 98 MEQ/L (98-107) (98-107) (98-107) Carbon Dioxide Level 27.1 MEQ/L 29.8 MEQ/L 22.3 MEQ/L (21.0-32.0) (21.0-32.0) (21.0-32.0) Anion Gap 11 MEQ/L (5-15) 12 MEQ/L (5-15) 17 MEQ/L (5-15) Blood Urea Nitrogen 60 MG/DL (7-18) 47 MG/DL (7-18) 71 MG/DL (7-18) Creatinine 7.23 MG/DL 5.66 MG/DL 7.12 MG/DL (0.60-1.30) (0.60-1.30) (0.60-1.30) Estimat Glomerular Filtration 9 ML/MIN (>89) 12 ML/MIN (>89) 10 ML/MIN (>89) Rate Random Glucose 150 MG/DL 118 MG/DL 89 MG/DL (74-106) (74-106) (74-106) Lactic Acid Level 0.7 mmol/L (0.4-2.0) Calcium Level 9.3 MG/DL 8.8 MG/DL 9.3 MG/DL (8.5-10.1) (8.5-10.1) (8.5-10.1) Phosphorus Level 3.7 MG/DL 3.2 MG/DL (2.5-4.9) (2.5-4.9) Magnesium Level 2.3 MG/DL 2.1 MG/DL (1.5-2.5) (1.5-2.5) Total Bilirubin 0.6 MG/DL 0.5 MG/DL (0.2-1.0) (0.2-1.0) Aspartate Amino Transf 52 U/L (15-37) 51 U/L (15-37) (AST/SGOT) Alanine Aminotransferase 35 U/L (12-78) 34 U/L (12-78) (ALT/SGPT) Alkaline Phosphatase 80 U/L (45-117) 92 U/L (45-117) Ammonia 11 MCMOL/L (11-32) Total Protein 6.6 GM/DL 6.8 GM/DL (6.4-8.2) (6.4-8.2) Albumin 2.0 GM/DL 2.1 GM/DL (3.4-5.0) (3.4-5.0) Prothrombin Time 10.7 SEC (9.8-11.6) Prothromb Time International 1.0 RATIO Ratio Result Diagram: 06/12/16 0429 06/13/16 0910 Imaging Last Impressions Chest X-Ray 06/12/16 0600 Signed Impressions: Service Date/Time: Sunday, June 12, 2016 02:05 - CONCLUSION: Improving left lower lobe consolidation and right pleural effusion. Earnest Torre MD Brain MRI 06/10/16 0000 Signed Impressions: Service Date/Time: Friday, June 10, 2016 20:14 - CONCLUSION: 1. Mild chronic-appearing ischemic changes in the periventricular white matter slightly progressed from 2014. No recent infarct, mass effect or midline shift. No hydrocephalus. Lakhwinder Pringle MD Liver Ultrasound 06/01/16 0000 Signed Impressions: Service Date/Time: Wednesday, June 01, 2016 15:38 - CONCLUSION: 1. Bilateral pleural effusions. 2. Thick-walled gallbladder with minimal pericholecystic fluid. If there is clinical concern for acute cholecystitis a hepatobiliary scan may be helpful to confirm cystic duct obstruction. 3. Minimal ascites. 4. Echogenic atrophic right kidney. 5. Mild nonspecific prominence of the main pancreatic duct. Enzo Price MD Head CT 05/29/16 0000 Signed Impressions: Service Date/Time: Sunday, May 29, 2016 03:03 - CONCLUSION: Age- appropriate atrophy, stable from prior in September 2015. No acute findings. Earnest Torre MD Lower Extremity Ultrasound 05/28/16 0000 Signed Impressions: Service Date/Time: Saturday, May 28, 2016 22:27 - CONCLUSION: Negative for deep venous thrombosis bilateral lower extremity. Earnest Torre MD Assessment and Plan Disease Oriented Problem List: (1) Metabolic encephalopathy (2) ESRD on hemodialysis (3) Shortness of breath (4) Diabetes (5) CHF (congestive heart failure) (6) Elevated troponin level (7) Hepatitis C (8) Hyperkalemia, diminished renal excretion (9) Cardiac arrest (10) Hyperkalemia (11) Hypertension (12) NSTEMI (non-ST elevated myocardial infarction) (13) Elevated LFTs (14) Non-ischemic cardiomyopathy Symptom Scale: (1) Encephalopathy (2) Anxiety (3) Dyspnea Pertinent Non-Medical Issues Psychosocial:Per prior H&P by palliative 2014 (obtained from significant other Neema) patient born in [place] moves to [place] sometime in 2012 or . Parents are , patient has no siblings. He did serve in the though branch not known. He did have some connection with the [facility]. Disabled and not working for many years. Completed high school. 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 Has lived with significant other Neema Johnston for many years. Never reported to be . Has 1 son, 1 daughter who may live in the [place] area. Spiritual:Per prior admissions:He attends Buddhism [employer]. Welcomed headwaiter/headwaitress support. Legal:Patient currently unable to participate in decision-making due to clinical condition. Not clear if he will regain ability to participate, status post PEA arrest. Patient reported to have 2 adult children, never . Per [place] statutes these 2 adult children would be appropriate legal decision makers. He has a significant other of many years who has previously served as a proxy during hospital course as children were not able to be located during previous attempts. Would again attempt to locate any possible family members as the last attempt I'm aware of occurred in 2013, if unable to locate children then would proceed with significant other paris as healthcare proxy. [06.01.15-- requested case management assist with [employer] report to again attempt to locate possible children-- reported 06.02.15 no family located. ] Ethical issues impacting care: Important Contacts Neema Johnston significant other [phone]/ [phone] Prognosis This patient suffered PEA arrest during this admission likely secondary to hyperkalemia, end-stage renal disease on hemodialysis. He now remains on mechanical vent, encephalopathic. Condition is guarded. Possible he may wean and medically extubate however thus far not tolerating CPAP trials. May require tracheostomy and PEG for ongoing aggressive interventions. Appears likely he can survive current hospital course though he does remain at risk for complications/setbacks. Code Status: Full Code Plan * Legal decision maker: Patient currently unable to participate in decision- making due to clinical condition. Not clear if he will regain ability to participate, status post PEA arrest. Patient reported to have 2 adult children , never . Per [place] statutes these 2 adult children would be appropriate legal decision makers. He has a significant other of many years who has previously served as a proxy during hospital course as children were not able to be located during previous attempts. Would again attempt to locate any possible family members as the last attempt I'm aware of occurred in 2013, if unable to locate children then would proceed with significant other [place] as healthcare proxy. * Goals: AGGRESSIVE. Met w sig other Neema and her brother 06/02/16-- Neema seems to have very limited understanding and limited insight to conditions. When I initially asked what the drs had told her about her sig other's condition she stated "that he was fine and all his tests were perfect, normal". Much review of conditions, diagnostics, clinical course thus far, underlying conditions. Goals thus far are aggressive. They feel they have seen pt respond purposefully to their visit. They have seen him recover from many acute issues before, including PEA arrest, and believe he could again recover. 06/13.--Met with significant other and her brother at bedside. Goals remain aggressive. They elect to proceed with tracheostomy and PEG. This will likely be completed today or tomorrow. * CODE STATUS: Full code * SYMPTOMS: --Encephalopathy-status post PEA arrest with ROSC after approximately 8 minutes of CPR.+ encephalopathy per EEG. Neurology following, continue supportive care. Patient with prior PEA arrest episode and encephalopathy during prior admission 2013, eventually during hospital course had improvement in neurological status. --Dyspnea-emergently intubated for airway protection during PEA arrest; currently on mechanical vent tolerating episodes of CPAP however limited by agitation and tachypnea. will require tracheostomy/PEG if goals are aggressive. Currently requiring Diprivan and precedex--reported to be very agitated when held -Agitation/anxiety: Hx drug use. Currently on mechanical vent, + encephalopathy 2/2 PEA arrest ; previously on Precedex drip, when sedation lightened not following but does become agitated--now on precedex + diprivan. We 'll continue to evaluate. * Palliative care will continue to follow during hospital course as condition evolves, to assist patient/decision-maker with understanding of medical conditions, weighing benefits/burdens of treatment options, for clarification of goals of treatment. Additionally will assist with any symptoms of palliative concern Time Spent Total Floor Time (mins): 30 >50% Counseling/Coord of Care: Yes (d/w RN, critical care) Attestation To help prompt me to consider important information that might be impacting today's encounter and assessment, information from prior notes written by myself or my colleagues may have been "brought forward" into today's note. My signature on this note, however, is an attestation that I personally performed the exam, history, and/or decision-making noted today, and, unless otherwise indicated, the interactions with patient, family, and staff as well as the review of records all occurred today. I also attest that the listed assessment and stated plan reflect my best clinical judgment today based on the combination of historical information, prior notes, and today's exam/ interactions. When time spent is documented, it refers only to time spent today by the signer, or if indicated, combined time spent today by collaborating physician/nurse practitioner. Blank Coronel Jun 13, 2016 10:44
[2016-06-13] MEDS: SODIUM CHLORIDE 23.4% INJ 154 MEQ in DEXTROSE 10% INJ 1,000 ML IV SCH (11:45)
--- NOTE | 2016-06-13 11:47 | HHI.NPPN ---
Subjective General Problems: Anemia Renal Failure: Chronic, End Stage Renal Disease Additional Remarks He remains unresponsive. Possible Tracheostomy and PEG tube placement. Review of Systems General General Remarks unable to evaluate due to intubation/sedation Objective Data Data 06/12/16 06/13/16 19:00 07:00 Intake Total 673 ml 1021 ml Output Total 50 ml 90.0 ml Balance 623 ml 931.0 ml IV Total 290 ml 727 ml Tube Feeding 263 ml 264 ml Other 120 ml 30 ml Output Urine Total 50 ml 90 ml Tube Feeding Residual Discard 0 ml # Bowel Movements 1 2 Vital Signs Date Time Temp Pulse Resp B/P Pulse Ox O2 Delivery O2 Flow Rate FiO2 06/13/16 08:31 100 35 06/13/16 08:00 97.9 62 12 120/63 100 06/13/16 08:00 35 06/13/16 08:00 60 06/13/16 06:00 60 06/13/16 04:07 96 35 06/13/16 04:00 35 06/13/16 04:00 61 06/13/16 04:00 98.5 61 12 151/76 100 06/13/16 02:00 62 06/13/16 01:05 100 35 06/13/16 00:00 97.6 59 12 142/70 100 06/13/16 00:00 35 06/13/16 00:00 59 06/12/16 22:02 100 35 06/12/16 22:00 58 06/12/16 20:00 59 06/12/16 20:00 97.4 59 12 161/84 100 06/12/16 20:00 35 06/12/16 18:00 55 06/12/16 16:00 62 06/12/16 16:00 97.9 61 14 143/72 100 06/12/16 16:00 35 06/12/16 15:09 99 35 06/12/16 14:00 58 06/12/16 12:00 97.9 56 12 133/66 100 06/12/16 12:00 35 06/12/16 12:00 56 06/12/16 11:57 99 35 -: 06/12/16 0429 06/13/16 0910 Tubes & Lines Comment ETT, OG tube Drip Comment Fentanyl Physical Exam General Appearance: Well Developed Eyes Eye Exam: Pupils Equal, Pupils Reactive Neck Neck Exam: Neck Supple Pulmonary Resp Exam: Breath Sounds Equal, Decreased Bases, Diminished Breath Sounds Resp Remarks vented breath sounds heard bilaterally. Cardiology CV Exam: Regular, Normal Sinus Rhythm Gastrointestinal/Abdomen GI Exam: Soft, Non-Tender, Non-Distended Extremeties Extremities Exam: Trace Edema Neurologic Neuro Exam: Unresponsive, Sedated Assessment/Plan Discussed Condition With: Patient, Relative Assessment Summary: Anemia of CKD, Hypertension, End Stage Renal Disease Electrolyte Assessment: Hypocalcemia Problem List: (1) ESRD on dialysis Plan: Usually dialyzes TTS, but he has developed hyperkalemia today, will dialyze him for 2 hours. Hyperkalemia is likely due to NPO status, relative insulin deficiency, and shift of potassium out of the cells. (2) Hypertension Plan: BP is acceptable. He is on metoprolol, hydralazine, clonidine (3) DM (diabetes mellitus) Plan: continue insulin coverage goal to maintain blood glucose between 140 and 180 (4) Hyperkalemia Plan: corrected with dialysis, monitor for recurrence (5) NSTEMI (non-ST elevated myocardial infarction) Plan: Troponin I elevated post cardiac arrest, chest compressions. he had catheterization in January 2016, normal coronary arteries (6) Elevated LFTs Plan: improved. (7) Cocaine abuse Plan: cessation had been advised. 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
[2016-06-13] MEDS: SODIUM CHLOR 0.9% 1000 ML INJ 1,000 ML IV PRN ×2 (12:26)
[2016-06-13] MEDS: ALBUMIN HUMAN 25% 25 GM/100 ML BAGP IV PRN ×2 (12:52→12:53)
[2016-06-13] MEDS: GELATIN 12 MM/7 MM FOAM TOP PRN (13:08)
[2016-06-13] MEDS ORDERED: ceFAZolin 1 GM ADDVANTAGE VIAL IV ONE (16:16)
[2016-06-13] MEDS ORDERED: PROPOFOL 200 MG/20 ML AMP IV ONE ×2 (16:19)
[2016-06-13 17:43] LABS: HEMATOCRIT 29.1 % (39.0-51.0); MEAN CELL VOLUME 91.1 FL (80.0-100.0); MEAN CORPUSCULAR HEMOGLOBIN 30.3 PG (27.0-34.0); MEAN CORPUSCULAR HGB CONC 33.2 % (32.0-36.0); PLATELET COUNT 158 TH/MM3 (150-450); RED BLOOD COUNT 3.19 MIL/MM3 (4.50-5.90); RED CELL DISTRIBUTION WIDTH 13.8 % (11.6-17.2); REVIEW FLAG FINAL
[2016-06-13] MEDS: PROPOFOL 1000 MG/100 ML INJ 100 ML IV SCH ×2 (18:01→23:14)
--- NOTE | 2016-06-13 20:54 | HHI.CCPN ---
Subjective Remarks/Hospital Course 05/28: 60 yo AAM with PMH of HTN, stroke without residual deficit, DM, nonischemic cardiomyopathy (EF 40% and stage I diastolic dysfunction) Cocaine abuse, Hepatitis C, ESRD on HD T/R/Sat who presents to [facility] ED for 2 day history of SOB. He reported symptoms started 1/ after he received hemodialysis. He reported a nonproductive cough without fevers, chills, or chest pain. His workup revealed a normal white count and CXR that demonstrated RLL consolidation. His potassium was 6.8. While preparations were being made to administer medications to address his hyperkalemia he developed bradycardia and PEA arrest. He underwent CPR and received epinephrine and 1 amp of bicarbonate. It was return of spontaneous circulation after 8 minutes. He was intubated by the emergency department physician Dr. Clancy. Dr. Francisco with nephrology was consulted and he made arrangements for urgent dialysis which is taking place currently. Target removal 3.8 L per HD RN. Postintubation CXR demonstrates R base infiltrate but also appears there is right pleural effusion. Influenza screen negative. Receive Zosyn and azithromycin in the emergency department. 05/29: Sedated, arousable, not following commands, orally intubated on mechanical ventilation. Gets agitated on lightening sedation and has a strong gag reflex. 05/30: Sedated, arousable, not following commands. Remains orally intubated on mechanical ventilation. Failed C Pap trial today. Dialyzed earlier. 05/31: Sedated/encephalopathic on lightening sedation, not following commands. Remains orally intubated on mechanical ventilation. Failed C Pap trials yesterday. 2-D echo just being completed today. 06/01 No events overnight. On Precedex drip unresponsive and doesn't follow commands. Afebrile. 06/02 Patient s/p HD yesterday with removal 1.5L , on Precedex infusion for sedation. 06/03 No events overnight. Sedated with fentanyl and intubated. s/p HD yesterday with removal 1.5L. 06/04 Patient remains sedated and intubated. Afebrile. Did not tolerate CPAP trials yesterday as he became tachypneic. 06/05 Patient s/p HD yesterday with removal 2L. Sedated with Fentanyl and intubated. Afebrile. Patient gets very agitated and restless when sedation is weaned off. 06/06 Patient is sedated with Fentanyl placed on Diprivan as well last night. Gets agitated and tachypneic on CPAP trials. s/p HD yesterday with removal 2L. 06/07: Remains sedated/encephalopathic, orally intubated on mechanical ventilation. Failed C Pap trials yesterday. 06/08: Remains sedated/encephalopathic, orally intubated on mechanical ventilation. Gets agitated on lightening sedation however not following commands. We'll attempt Precedex and titrate down on fentanyl/propofol 06/09: Remains sedated/encephalopathic, orally intubated on mechanical ventilation. On Precedex/propofol/fentanyl. Will attempt transitioning to Precedex alone to control agitation for C Pap trials. 06/10: Still requiring Precedex/propofol and fentanyl for CPAP trials. Patient continues to be extremely agitated and currently unable to extubate. Not following commands. Positive BM. Tolerating tube feeds. Afebrile. 06/11: On Precedex drip currently. -3 L of hemodialysis. Moving all 4 extremities but not following commands. Subjective 06/12: no changes. plan for PEG and Trach tomorrow. 06/13: plan for trach today. discussed with health care proxy and she still has concerns about possible trach. will touch base with palliative care. have talked with Dr. Lee from trauma, and plan for trach at some point depending on his schedule and per family discussions. Objective Vital Signs Date Time Temp Pulse Resp B/P Pulse Ox O2 Delivery O2 Flow Rate FiO2 06/13/16 18:00 83 06/13/16 16:52 100 35 06/13/16 16:00 97.4 12 152/74 Intake and Output 06/12/16 06/12/16 06/13/16 08:00 16:00 00:00 Intake Total 489 ml 673 ml 738 ml Output Total 25 ml 50 ml 75.0 ml Balance 464 ml 623 ml 663.0 ml Result Diagram: 06/13/16 1715 06/13/16 0910 Imaging Last Impressions Chest X-Ray 06/11/16 0600 Signed Impressions: Service Date/Time: Saturday, June 11, 2016 03:31 - CONCLUSION: Persistent left lower lobe consolidation and right pleural effusion. Earnest Torre MD Brain MRI 06/10/16 0000 Signed Impressions: Service Date/Time: Friday, June 10, 2016 20:14 - CONCLUSION: 1. Mild chronic-appearing ischemic changes in the periventricular white matter slightly progressed from 2014. No recent infarct, mass effect or midline shift. No hydrocephalus. Lakhwinder Pringle MD Liver Ultrasound 06/01/16 0000 Signed Impressions: Service Date/Time: Wednesday, June 01, 2016 15:38 - CONCLUSION: 1. Bilateral pleural effusions. 2. Thick-walled gallbladder with minimal pericholecystic fluid. If there is clinical concern for acute cholecystitis a hepatobiliary scan may be helpful to confirm cystic duct obstruction. 3. Minimal ascites. 4. Echogenic atrophic right kidney. 5. Mild nonspecific prominence of the main pancreatic duct. Enzo Price MD Head CT 05/29/16 0000 Signed Impressions: Service Date/Time: Sunday, May 29, 2016 03:03 - CONCLUSION: Age- appropriate atrophy, stable from prior in September 2015. No acute findings. Earnest Torre MD Lower Extremity Ultrasound 05/28/16 0000 Signed Impressions: Service Date/Time: Saturday, May 28, 2016 22:27 - CONCLUSION: Negative for deep venous thrombosis bilateral lower extremity. Earnest Torre MD Objective Remarks GENERAL: 60 yo AA male, critically ill currently orotracheally intubated. SKIN: Warm and dry. No rash HEAD: Normocephalic. EYES: Pupils minimally reactive at 2 mm bilaterally. No scleral icterus. No injection or drainage. NECK: Supple, trachea midline. No JVD or lymphadenopathy. CARDIOVASCULAR: Regular rate and rhythm with S1, S2. No S4. II/ systolic murmur at the apex RESPIRATORY: Breath sounds equal bilaterally. No accessory muscle use. GASTROINTESTINAL: Abdomen soft, non-tender, nondistended. Prior scar from PEG tube in left lower quadrant. MUSCULOSKELETAL: No disc and peripheral edema. Positive thrill left AV fistula. Neuro: Intubated, encephalopathic, moves all 4 extremities, nonpurposeful, not following commands on lightening sedation but gets agitated. A/P Assessment and Plan NEURO: Acute encephalopathy, post cardiac arrest. History of stroke without residual deficit (per friend's report) History of cocaine abuse Posttraumatic stress disorder On precedex, propofol infusion for sedation/analgesia while intubated. Daily sedation vacation Sedated/encephalopathic Neuro is following-Dr. Wilks peripherally RESP: Acute respiratory failure Healthcare associated pneumonia Intubated in ED 05/28/16 following cardiac arrest Continue with vent support keep sat >92% Duoneb q6 hours. Albuterol q2 prn. Ventilator Bundle. Daily SBT as leana. Patient has been intubated since 05/28 Tracheostomy consult: plan for trach today with Dr. Lee, family will continue to discuss with palliative care. -- continues to fail SBT due to altered mental status. not on pathway. if vent were removed, the patient would . remains critically ill. CV: Cardiac arrest, secondary to hyperkalemia Nonischemic cardiomyopathy secondary to HTN, cocaine abuse Hypertension Elevated Troponin: ? NSTEMI Monitor HR and BP keep MAP>65mmHg Continue home meds: Hydralazine 25 tid. Clonidine 0.1 tid., Lopressor 25mg Q6 ( 100 mg twice a day at home ASA 81 mg daily will be continued. Echo 05/31: EF 25-30%, no RWMA. Mild MR/TR. MEGAN 36 mmHg cardiac cath 12/09/2012 - EF 40%, normal coronaries. Elevated troponin, cardiac arrest. Per cardiology-no intervention planned. GI: Hepatitis C Elevated LFT Continue TF-Nepro@40ml/hr Monitor LFT's: Trending down US liver: Bilateral pleural effusions. Thick-walled gallbladder with minimal pericholecystic fluid. Minimal ascites. Echogenic atrophic right kidney. Mild nonspecific prominence of the main pancreatic duct. Protonix for GI prophylaxis Colace for bowel regimen FEN/RENAL: ESRD Acute severe hyperkalemia - resolved Intermittent hemodialysis per nephrology (Dr. Francisco) Emergent HD 05/28 due to potassium of 6.8 with bradycardia and cardiac arrest. plan for IHD today. Monitor renal function, I/O's, avoid nephrotoxins. s/p HD today with 3L removed. ID: Acute healthcare associated pneumonia Received Zosyn and azithromycin in the emergency department 05/28. s/p Zosyn 2.25 g IV every 8 hours 05/29 - 06/12. Azithro x 10 days.05/28 nasal washing negative for Influenza. continue to monitor and osborn culture and rebroaden for clinical change. Pertinent cultures 05/28 - blood cultures 2 - 1 out of 2 corynebacterium not Jk 05/29 Sputum- beta strep not A HEME: Normocytic anemia Thrombocytopenia Monitor CBC ENDO: Diabetes mellitus Medium dose Insulin sliding scale with bedside glucose every 6 hours PROPH: Heparin 5000 units subcutaneous q8h for DVT prophylaxis. Protonix 40 mg IV daily for stress ulcer prophylaxis. Doppler US LE negative for DVT ACCESS: Peripheral IV providing adequate access at this time. Left AV fistula accessed for hemodialysis Full code Palliative care is following to assist with deciding goals of therapy. Critical Care: The total critical care time was 30 minutes. Time to perform other separately billable procedures was not included in the critical care time. Epi Holcomb MD Jun 13, 2016 20:54
[2016-06-13] MEDS ORDERED: PHYTONADIONE 10 MG/ML VIAL SQ ONE (21:00)
--- NOTE | 2016-06-13 21:00 | HHI.GIFU ---
GI Follow-up Note Consult Follow-up some bleeding from incisional site, gel foam and pressure dressing-for now bleeding stopped we will monitor closely cbc, pt/int, vit k type and screen continue applying gel foam for now It was a pleasure seeing Tenzin Bloom. Thank you for this consult. Entered by: Prachi Rob MD Jun 13, 2016 21:00
[2016-06-13 21:59] LABS: BASOPHIL # 0.1 TH/MM3 (0-0.2); EOSINOPHIL # 0.1 TH/MM3 (0-0.4); EOSINOPHIL % 1.8 % (0.0-4.0); HEMO FLAGS DIFF FINAL; LYMPH % 16.1 % (9.0-44.0); MEAN CELL VOLUME 91.6 FL (80.0-100.0); MEAN CORPUSCULAR HEMOGLOBIN 30.2 PG (27.0-34.0); MONO % 18.8 % (0.0-8.0); NEUT % 62.3 % (16.0-70.0); PLATELET COUNT 165 TH/MM3 (150-450); RED BLOOD COUNT 3.38 MIL/MM3 (4.50-5.90); RED CELL DISTRIBUTION WIDTH 14.2 % (11.6-17.2); WHITE BLOOD COUNT 6.4 TH/MM3 (4.0-11.0)
[2016-06-13 22:04] LABS: PROTHROMBIN TIME - PATIENT 10.8 SEC (9.8-11.6)
[2016-06-14] VITALS (20 sets, daily range): BP systolic 109–142; BP diastolic 63–74; PULSE 60–80; RESP 12–15; TEMP 94.5–98.1; O2SAT 97–100
[2016-06-14 00:14] LABS: HEMATOCRIT 28.1 % (39.0-51.0); REVIEW FLAG FINAL
[2016-06-14] MEDS: METOPROLOL TARTRATE 25 MG TAB PO/NG SCH ×4 (00:46→18:04)
[2016-06-14] MEDS: INSULIN NovoLIN REGULAR SUPPLEMENTAL SCALE SQ SCH ×4 (03:00→21:00)
[2016-06-14] MEDS: CHLORHEXIDINE GLUCONATE 2 % 1 PACK (2 CLOTHS) TOP SCH (04:00)
[2016-06-14] MEDS: HEPARIN SODIUM - SQ 10,000 UNITS/ML VIAL SQ SCH ×3 (06:00→22:00)
[2016-06-14] MEDS: GELATIN 12 MM/7 MM FOAM TOP PRN ×3 (07:00→11:13)
[2016-06-14 07:09] LABS: BICARBONATE 24.7 MEQ/L (21.0-32.0); POTASSIUM 4.1 MEQ/L (3.5-5.1)
[2016-06-14] MEDS: CHLORHEXIDINE 0.12% (ORAL KIT) 15 ML CUP MT SCH ×2 (08:00→20:00)
[2016-06-14] MEDS: DOCUSATE SODIUM 100 MG CAP PO SCH ×2 (09:00→21:00)
[2016-06-14] MEDS: CALCIUM ACETATE 667 MG CAP NG SCH ×3 (09:00→18:03)
[2016-06-14] MEDS: cloNIDine HCL 0.1 MG TAB PO SCH ×3 (09:00→18:03)
[2016-06-14] MEDS: PANTOPRAZOLE SODIUM 40 MG VIAL IV SCH (09:00)
[2016-06-14] MEDS: SODIUM CHLORIDE 0.9% FLUSH 5 ML FLUSH IV FLUSH SCH ×2 (09:00→21:00)
[2016-06-14] MEDS: ASPIRIN EC 81 MG TABEC PO SCH (09:00)
[2016-06-14] MEDS: hydrALAZINE HCL 25 MG TAB PO SCH ×3 (09:00→18:04)
[2016-06-14] MEDS ORDERED: DESMOPRESSIN ACETATE 4 MCG/ML VIAL IV ONE ×2 (09:15)
[2016-06-14] MEDS ORDERED: SODIUM CHLORIDE 0.9% IV ONE (10:00)
[2016-06-14] MEDS ORDERED: DESMOPRESSIN IV ONE (10:00)
[2016-06-14 10:49] LABS: MEAN CELL VOLUME 88.6 FL (80.0-100.0); MEAN CORPUSCULAR HEMOGLOBIN 31.8 PG (27.0-34.0); MEAN CORPUSCULAR HGB CONC 35.9 % (32.0-36.0); PLATELET COUNT 141 TH/MM3 (150-450); RED BLOOD COUNT 2.22 MIL/MM3 (4.50-5.90); RED CELL DISTRIBUTION WIDTH 13.7 % (11.6-17.2); WHITE BLOOD COUNT 3.6 TH/MM3 (4.0-11.0)
[2016-06-14 10:58] LABS: APTT (PATIENT) 37.8 SEC (24.3-30.1); PROTHROMBIN TIME - PATIENT 11.2 SEC (9.8-11.6)
[2016-06-14 10:58] LABS: HEMATOCRIT 19.6 % (39.0-51.0)
[2016-06-14 10:59] LABS: REVIEW FLAG FINAL
[2016-06-14] MEDS ORDERED: SODIUM CHLOR 0.9% 250 ML INJ 250 ML IV ONE (11:00)
[2016-06-14] MEDS: SODIUM CHLOR 0.9% 1000 ML INJ 1,000 ML IV PRN (11:12)
[2016-06-14] MEDS: ALBUMIN HUMAN 25% 25 GM/100 ML BAGP IV PRN (11:12)
[2016-06-14] MEDS ORDERED: EPINEPHrine HCL (1:1000) 1 MG/ML VIAL ONE (11:30)
[2016-06-14] MEDS: SODIUM CHLORIDE 23.4% INJ 154 MEQ in DEXTROSE 10% INJ 1,000 ML IV SCH (11:45)
--- NOTE | 2016-06-14 11:49 | HHI.GIFU ---
Subjective Remarks Resting in bed getting HD, VSS. Nurse reports that PEG tube site has continued to ooze blood from PEG tube site despite gelfoam and pressure drsg. Objective Vitals I&O Vital Signs Date Time Temp Pulse Resp B/P Pulse Ox O2 Delivery O2 Flow Rate FiO2 06/14/16 10:32 100 35 06/14/16 08:34 99 35 06/14/16 08:00 69 06/14/16 08:00 97.4 60 12 126/63 100 06/14/16 08:00 35 06/14/16 06:00 60 06/14/16 05:36 100 35 06/14/16 04:00 62 06/14/16 04:00 97.0 62 12 137/71 100 06/14/16 04:00 35 06/14/16 03:29 100 35 06/14/16 02:00 64 06/14/16 00:00 69 06/14/16 00:00 35 06/14/16 00:00 97.1 69 12 142/74 100 06/13/16 23:52 100 35 06/13/16 22:00 73 06/13/16 21:32 100 35 06/13/16 20:00 80 06/13/16 20:00 35 06/13/16 20:00 96.9 80 15 153/83 100 06/13/16 18:00 83 06/13/16 16:52 100 35 06/13/16 16:00 35 06/13/16 16:00 97.4 79 12 152/74 100 06/13/16 16:00 79 06/13/16 14:00 73 06/13/16 12:00 35 06/13/16 12:00 69 06/13/16 12:00 97.8 61 12 118/58 100 06/13/16 11:47 100 35 I/O 06/13/16 06/13/16 06/13/16 06/14/16 06/14/16 06/14/16 07:00 15:00 23:00 07:00 15:00 23:00 Intake Total 283 ml 500 ml 476 ml 223 ml Output Total 15 ml 500 ml 150 ml 25 ml Balance 268 ml 0 ml 326 ml 198 ml IV Total 221 ml 380 ml 476 ml 223 ml Tube Feeding 62 ml 120 ml Output Urine Total 15 ml 0 ml 150 ml 25 ml Tube Feeding Residual Discard 0 ml 0 ml Hemodialysis 500 ml # Bowel Movements 1 10 1 1 Laboratory Laboratory Tests Test 06/13/16 06/13/16 06/13/16 06/14/16 17:15 21:15 23:37 04:28 White Blood Count 4.0 6.4 Red Blood Count 3.19 3.38 Hemoglobin 9.7 10.2 9.5 Hematocrit 29.1 31.0 28.1 Mean Corpuscular Volume 91.1 91.6 Mean Corpuscular Hemoglobin 30.3 30.2 Mean Corpuscular Hemoglobin 33.2 33.0 Concent Red Cell Distribution Width 13.8 14.2 Platelet Count 158 165 Mean Platelet Volume 11.0 11.4 Neutrophils (%) (Auto) 62.3 Lymphocytes (%) (Auto) 16.1 Monocytes (%) (Auto) 18.8 Eosinophils (%) (Auto) 1.8 Basophils (%) (Auto) 1.0 Neutrophils # (Auto) 4.0 Lymphocytes # (Auto) 1.0 Monocytes # (Auto) 1.2 Eosinophils # (Auto) 0.1 Basophils # (Auto) 0.1 CBC Comment DIFF FINAL Differential Comment Prothrombin Time 10.8 Prothromb Time International 1.0 Ratio Blood Type O POSITIVE Antibody Screen NEGATIVE Blood Bank Comment Sodium Level 138 Potassium Level 4.1 Chloride Level 98 Carbon Dioxide Level 24.7 Anion Gap 15 Blood Urea Nitrogen 51 Creatinine 5.52 Estimat Glomerular Filtration 13 Rate Random Glucose 76 Calcium Level 8.9 Test 06/14/16 06/14/16 09:35 09:40 White Blood Count 3.6 Red Blood Count 2.22 Hemoglobin 7.0 Hematocrit 19.6 Mean Corpuscular Volume 88.6 Mean Corpuscular Hemoglobin 31.8 Mean Corpuscular Hemoglobin 35.9 Concent Red Cell Distribution Width 13.7 Platelet Count 141 Mean Platelet Volume 11.2 Prothrombin Time 11.2 Prothromb Time International 1.0 Ratio Activated Partial 37.8 Thromboplast Time Imaging Last Impressions Chest X-Ray 06/12/16 0600 Signed Impressions: Service Date/Time: Sunday, June 12, 2016 02:05 - CONCLUSION: Improving left lower lobe consolidation and right pleural effusion. Earnest Torre MD Brain MRI 06/10/16 0000 Signed Impressions: Service Date/Time: Friday, June 10, 2016 20:14 - CONCLUSION: 1. Mild chronic-appearing ischemic changes in the periventricular white matter slightly progressed from 2014. No recent infarct, mass effect or midline shift. No hydrocephalus. Lakhwinder Pringle MD Liver Ultrasound 06/01/16 0000 Signed Impressions: Service Date/Time: Wednesday, June 01, 2016 15:38 - CONCLUSION: 1. Bilateral pleural effusions. 2. Thick-walled gallbladder with minimal pericholecystic fluid. If there is clinical concern for acute cholecystitis a hepatobiliary scan may be helpful to confirm cystic duct obstruction. 3. Minimal ascites. 4. Echogenic atrophic right kidney. 5. Mild nonspecific prominence of the main pancreatic duct. Enzo Price MD Head CT 05/29/16 0000 Signed Impressions: Service Date/Time: Sunday, May 29, 2016 03:03 - CONCLUSION: Age- appropriate atrophy, stable from prior in September 2015. No acute findings. Earnest Torre MD Lower Extremity Ultrasound 05/28/16 0000 Signed Impressions: Service Date/Time: Saturday, May 28, 2016 22:27 - CONCLUSION: Negative for deep venous thrombosis bilateral lower extremity. Earnest Torre MD Physical Exam HEENT: Normocephalic; atraumatic; no jaundice. CHEST: CTA. CARDIAC: RRR. ABDOMEN: Soft, nondistended, nontender; no hepatosplenomegaly; bowel sounds are present in all four quadrants. EXTREMITIES: No clubbing, cyanosis, or edema. SKIN: Normal; no rash; no jaundice. 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 Assessment and Plan Plan ASSESSMENT: - Bleeding at PEG tube site. S/P EGD with peg (06/13/16)---> duodenitis second portion, gastritis antrum, retroflexed views revealed a hiatal hernia. Pt had significant oozing from site after procedure, s/p gelfoam and pressure drsg. This has continued to ooze overnight. Took down drsg- gelfoam in place, still oozing small to moderate amount of blood continuously. HH dropped from 9.5/28.1 to 7.0/ 19.6. Will get 2 units of PRBC during HD. S/P Silver nitrate, injection of epinephrine. - Dysphagia/FEN- S/P EGD with peg tube placement. - Respiratory failure/ healthcare associated pneumonia - per [facility] - Hepatitis c - History of cocaine abuse - ESRD- HD Plan: - NPO for now. - S/P Silver nitrate applications - S/P Epinephrine injection at site - S/P Gelfoam application - 2 units PRBC during HD - Monitor HH q6h - If continues to bleed, will need egd with control of bleeding- HCS called and she states that she is in the hospital and on her way up to sign the consents - Supportive care - Patient seen and examined by Dr. vences and myself and this note is written on her behalf. Tatiana Sweeney Jun 14, 2016 11:49
[2016-06-14] MEDS: PROPOFOL 1000 MG/100 ML INJ 100 ML IV SCH (12:31)
--- NOTE | 2016-06-14 12:44 | HHI.NPPN ---
Subjective General Problems: Anemia Renal Failure: Chronic, End Stage Renal Disease Interval History Unresponsive on vent. Had PEG placed with some bleeding around site. Seen during dialysis. (Temitope Haley) Review of Systems General General Remarks unable to evaluate due to intubation/sedation (Temitope Haley) Objective Data Data 06/13/16 06/14/16 19:00 07:00 Intake Total 500 ml 699 ml Output Total 500 ml 175 ml Balance 0 ml 524 ml IV Total 380 ml 699 ml Tube Feeding 120 ml Output Urine Total 0 ml 175 ml Tube Feeding Residual Discard 0 ml Hemodialysis 500 ml # Bowel Movements 10 2 Vital Signs Date Time Temp Pulse Resp B/P Pulse Ox O2 Delivery O2 Flow Rate FiO2 06/14/16 10:32 100 35 06/14/16 08:34 99 35 06/14/16 08:00 69 06/14/16 08:00 97.4 60 12 126/63 100 06/14/16 08:00 35 06/14/16 06:00 60 06/14/16 05:36 100 35 06/14/16 04:00 62 06/14/16 04:00 97.0 62 12 137/71 100 06/14/16 04:00 35 06/14/16 03:29 100 35 06/14/16 02:00 64 06/14/16 00:00 69 06/14/16 00:00 35 06/14/16 00:00 97.1 69 12 142/74 100 06/13/16 23:52 100 35 06/13/16 22:00 73 06/13/16 21:32 100 35 06/13/16 20:00 80 06/13/16 20:00 35 06/13/16 20:00 96.9 80 15 153/83 100 06/13/16 18:00 83 06/13/16 16:52 100 35 06/13/16 16:00 35 06/13/16 16:00 97.4 79 12 152/74 100 06/13/16 16:00 79 06/13/16 14:00 73 (Temitope Haley) -: 06/14/16 0935 06/14/16 0428 Imaging Last 72 hours Impressions Chest X-Ray 06/12/16 0600 Signed Impressions: Service Date/Time: Sunday, June 12, 2016 02:05 - CONCLUSION: Improving left lower lobe consolidation and right pleural effusion. Earnest Torre MD Tubes & Lines Comment ETT, PEG Drip Comment Fentanyl (Temitope Haley. MOVIE STAR) Physical Exam General Appearance: Well Developed, Comfortable (Temitope Haley B. MOVIE STAR) Eyes Eye Exam: Pupils Equal, Pupils Reactive (Goldy Haleyon B. MOVIE STAR) Neck Neck Exam: Neck Supple (Temitope Haley B. MOVIE STAR) Pulmonary Resp Exam: Breath Sounds Equal, Crackles, Decreased Bases, Diminished Breath Sounds (Temitope Haley B. MOVIE STAR) Cardiology CV Exam: Regular, Normal Sinus Rhythm, Good Perfusion (Temitope Haley B. MOVIE STAR) Gastrointestinal/Abdomen GI Exam: Soft, Non-Tender, Bowel Sounds Present, Non-Distended GI Remarks PEG site bleeding (Temitope Haley B. MOVIE STAR) Musculoskeletal MS Exam: Joints Intact, Normal Tone (Temitope Haley B. MOVIE STAR) Integumentary Skin Exam: Clear, Warm, Dry, Intact (Temitope Haley B. MOVIE STAR) Extremeties Extremities Exam: Pedal Pulses Palpable, Trace Edema (Temitope Haley B. MOVIE STAR) Neurologic Neuro Exam: Unresponsive, Sedated (Temitope Haley. MOVIE STAR) Assessment/Plan Discussed Condition With: Patient, Relative Assessment Summary: Anemia of CKD, Hypertension, End Stage Renal Disease Electrolyte Assessment: Hypocalcemia Problem List: (1) ESRD on dialysis Plan: Usually dialyzes TTS, but did 2 hr treatment Monday due to hyperkalemia, thought to be due to NPO status and insulin deficiency with extracellular shifting of K seen during dialysis today on a 3K, 350, goal 1L his BP has been running low, given albumin repeat potassium in the morning monitor fluid volume status, no IVF required (2) Hypertension Plan: BP running low He is on metoprolol, hydralazine, clonidine with hold parameters (3) DM (diabetes mellitus) Plan: continue insulin coverage goal to maintain blood glucose between 140 and 180 (4) Hyperkalemia Plan: corrected with extra dialysis treatment on 06/13 monitor for recurrence (5) NSTEMI (non-ST elevated myocardial infarction) Plan: Troponin I elevated post cardiac arrest, chest compressions. he had catheterization in January 2016, normal coronary arteries (6) Elevated LFTs Plan: improved. (7) Cocaine abuse Plan: cessation had been advised. (8) Encephalopathy Plan: vent management, will need trach placed poor prognosis (9) Anemia Plan: hemoglobin normally stable had acute blood loss with PEG placement, given desmopressin 2 units PRBc ordered for today (Temitope Haley) Plan patient was seen and examined. Seen during dialysis. Agree with above assessment and plan. 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
[2016-06-14] MEDS ORDERED: ROCURONIUM INJ 50 MG/5 ML VIAL ONE ×2 (14:18→14:25)
--- NOTE | 2016-06-14 14:34 | HHI.CCPN ---
Subjective Remarks/Hospital Course 05/28: 60 yo AAM with PMH of HTN, stroke without residual deficit, DM, nonischemic cardiomyopathy (EF 40% and stage I diastolic dysfunction) Cocaine abuse, Hepatitis C, ESRD on HD T/R/Sat who presents to [facility] for 2 day history of SOB. He reported symptoms started 1/ after he received hemodialysis. He reported a nonproductive cough without fevers, chills, or chest pain. His workup revealed a normal white count and CXR that demonstrated RLL consolidation. His potassium was 6.8. While preparations were being made to administer medications to address his hyperkalemia he developed bradycardia and PEA arrest. He underwent CPR and received epinephrine and 1 amp of bicarbonate. It was return of spontaneous circulation after 8 minutes. He was intubated by the emergency department physician Dr. Clancy. Dr. Francisco with nephrology was consulted and he made arrangements for urgent dialysis which is taking place currently. Target removal 3.8 L per HD RN. Postintubation CXR demonstrates R base infiltrate but also appears there is right pleural effusion. Influenza screen negative. Receive Zosyn and azithromycin in the emergency department. 05/29: Sedated, arousable, not following commands, orally intubated on mechanical ventilation. Gets agitated on lightening sedation and has a strong gag reflex. 05/30: Sedated, arousable, not following commands. Remains orally intubated on mechanical ventilation. Failed C Pap trial today. Dialyzed earlier. 05/31: Sedated/encephalopathic on lightening sedation, not following commands. Remains orally intubated on mechanical ventilation. Failed C Pap trials yesterday. 2-D echo just being completed today. 06/01 No events overnight. On Precedex drip unresponsive and doesn't follow commands. Afebrile. 06/02 Patient s/p HD yesterday with removal 1.5L , on Precedex infusion for sedation. 06/03 No events overnight. Sedated with fentanyl and intubated. s/p HD yesterday with removal 1.5L. 06/04 Patient remains sedated and intubated. Afebrile. Did not tolerate CPAP trials yesterday as he became tachypneic. 06/05 Patient s/p HD yesterday with removal 2L. Sedated with Fentanyl and intubated. Afebrile. Patient gets very agitated and restless when sedation is weaned off. 06/06 Patient is sedated with Fentanyl placed on Diprivan as well last night. Gets agitated and tachypneic on CPAP trials. s/p HD yesterday with removal 2L. 06/07: Remains sedated/encephalopathic, orally intubated on mechanical ventilation. Failed C Pap trials yesterday. 06/08: Remains sedated/encephalopathic, orally intubated on mechanical ventilation. Gets agitated on lightening sedation however not following commands. We'll attempt Precedex and titrate down on fentanyl/propofol 06/09: Remains sedated/encephalopathic, orally intubated on mechanical ventilation. On Precedex/propofol/fentanyl. Will attempt transitioning to Precedex alone to control agitation for C Pap trials. 06/10: Still requiring Precedex/propofol and fentanyl for CPAP trials. Patient continues to be extremely agitated and currently unable to extubate. Not following commands. Positive BM. Tolerating tube feeds. Afebrile. 06/11: On Precedex drip currently. -3 L of hemodialysis. Moving all 4 extremities but not following commands. Subjective 06/12: no changes. plan for PEG and Trach tomorrow. 06/13: plan for trach today. discussed with health care proxy and she still has concerns about possible trach. will touch base with palliative care. have talked with Dr. Lee from trauma, and plan for trach at some point depending on his schedule and per family discussions. 06/14: plan for trach today. significant bleeding from around PEG site. GI aware. 2 units prbc ordered. coags ordered. 0.3mcg/kg DDAVP ordered. Objective Vital Signs Date Time Temp Pulse Resp B/P Pulse Ox O2 Delivery O2 Flow Rate FiO2 06/14/16 14:15 100 100 06/14/16 08:00 69 06/14/16 08:00 97.4 12 126/63 Intake and Output 06/13/16 06/13/16 06/14/16 08:00 16:00 00:00 Intake Total 283 ml 500 ml 476 ml Output Total 15.0 ml 500 ml 150 ml Balance 268.0 ml 0 ml 326 ml Result Diagram: 06/14/16 0955 06/14/16 0427 Imaging Last Impressions Chest X-Ray 06/11/16 0600 Signed Impressions: Service Date/Time: Saturday, June 11, 2016 03:31 - CONCLUSION: Persistent left lower lobe consolidation and right pleural effusion. Earnest Torre MD Brain MRI 06/10/16 0000 Signed Impressions: Service Date/Time: Friday, June 10, 2016 20:14 - CONCLUSION: 1. Mild chronic-appearing ischemic changes in the periventricular white matter slightly progressed from 2014. No recent infarct, mass effect or midline shift. No hydrocephalus. Lakhwinder Pringle MD Liver Ultrasound 06/01/16 0000 Signed Impressions: Service Date/Time: Wednesday, June 01, 2016 15:38 - CONCLUSION: 1. Bilateral pleural effusions. 2. Thick-walled gallbladder with minimal pericholecystic fluid. If there is clinical concern for acute cholecystitis a hepatobiliary scan may be helpful to confirm cystic duct obstruction. 3. Minimal ascites. 4. Echogenic atrophic right kidney. 5. Mild nonspecific prominence of the main pancreatic duct. Enzo Price MD Head CT 05/29/16 0000 Signed Impressions: Service Date/Time: Sunday, May 29, 2016 03:03 - CONCLUSION: Age- appropriate atrophy, stable from prior in September 2015. No acute findings. Earnest Torre MD Lower Extremity Ultrasound 05/28/16 0000 Signed Impressions: Service Date/Time: Saturday, May 28, 2016 22:27 - CONCLUSION: Negative for deep venous thrombosis bilateral lower extremity. Earnest Torre MD Objective Remarks GENERAL: 60 yo AA male, critically ill currently orotracheally intubated. SKIN: Warm and dry. No rash HEAD: Normocephalic. EYES: Pupils minimally reactive at 2 mm bilaterally. No scleral icterus. No injection or drainage. NECK: Supple, trachea midline. No JVD or lymphadenopathy. CARDIOVASCULAR: Regular rate and rhythm with S1, S2. No S4. II/ systolic murmur at the apex RESPIRATORY: Breath sounds equal bilaterally. No accessory muscle use. GASTROINTESTINAL: Abdomen soft, non-tender, nondistended. moderate amount of bright red blood oozing from around the PEG site. pressure dressing is applied. MUSCULOSKELETAL: No disc and peripheral edema. Positive thrill left AV fistula. Neuro: Intubated, encephalopathic, moves all 4 extremities, nonpurposeful, not following commands on lightening sedation but gets agitated. A/P Assessment and Plan NEURO: Acute encephalopathy, post cardiac arrest. History of stroke without residual deficit (per friend's report) History of cocaine abuse Posttraumatic stress disorder On precedex, propofol infusion for sedation/analgesia while intubated. Daily sedation vacation Sedated/encephalopathic Neuro is following-Dr. Wilks peripherally RESP: Acute respiratory failure Healthcare associated pneumonia Intubated in ED 05/28/16 following cardiac arrest Continue with vent support keep sat >92% Duoneb q6 hours. Albuterol q2 prn. Ventilator Bundle. Daily SBT as leana. Patient has been intubated since 05/28 Tracheostomy consult: plan for trach today with Dr. Lee -- continues to fail SBT due to altered mental status. not on pathway. if vent were removed, the patient would . remains critically ill. CV: Cardiac arrest, secondary to hyperkalemia Nonischemic cardiomyopathy secondary to HTN, cocaine abuse Hypertension Elevated Troponin: ? NSTEMI Monitor HR and BP keep MAP>65mmHg Continue home meds: Hydralazine 25 tid. Clonidine 0.1 tid., Lopressor 25mg Q6 ( 100 mg twice a day at home ASA 81 mg daily will be continued. Echo 05/31: EF 25-30%, no RWMA. Mild MR/TR. MEGAN 36 mmHg cardiac cath 12/09/2012 - EF 40%, normal coronaries. Elevated troponin, cardiac arrest. Per cardiology-no intervention planned. GI: Hepatitis C Elevated LFT Continue TF-Nepro@40ml/hr Monitor LFT's: Trending down US liver: Bilateral pleural effusions. Thick-walled gallbladder with minimal pericholecystic fluid. Minimal ascites. Echogenic atrophic right kidney. Mild nonspecific prominence of the main pancreatic duct. Protonix for GI prophylaxis Colace for bowel regimen FEN/RENAL: ESRD Acute severe hyperkalemia - resolved Intermittent hemodialysis per nephrology (Dr. Francisco) Emergent HD 05/28 due to potassium of 6.8 with bradycardia and cardiac arrest. plan for IHD today. Monitor renal function, I/O's, avoid nephrotoxins. s/p HD today with 3L removed. ID: Acute healthcare associated pneumonia Received Zosyn and azithromycin in the emergency department 05/28. s/p Zosyn 2.25 g IV every 8 hours 05/29 - 06/12. Azithro x 10 days.05/28 nasal washing negative for Influenza. continue to monitor and osborn culture and rebroaden for clinical change. Pertinent cultures 05/28 - blood cultures 2 - 1 out of 2 corynebacterium not Jk 05/29 Sputum- beta strep not A HEME: Anemia of acute blood loss Thrombocytopenia 2 units prbc this AM. 0.3mcg/kg DDAVP x 1. Monitor CBC ENDO: Diabetes mellitus Medium dose Insulin sliding scale with bedside glucose every 6 hours PROPH: Heparin 5000 units subcutaneous q8h for DVT prophylaxis. Protonix 40 mg IV daily for stress ulcer prophylaxis. Doppler US LE negative for DVT ACCESS: Peripheral IV providing adequate access at this time. Left AV fistula accessed for hemodialysis Full code Palliative care is following to assist with deciding goals of therapy. Critical Care: The total critical care time was 31 minutes. Time to perform other separately billable procedures was not included in the critical care time. Epi Holcomb MD Jun 14, 2016 14:34
[2016-06-14] MEDS ORDERED: THROMBIN (TOPICAL) 5,000 UNIT VIAL ONE (15:10)
--- NOTE | 2016-06-14 15:40 | PD.PROCEDR ---
Procedure Note Procedure Procedure: Diagnostic Fiberoptic Bronchoscopy Diagnosis: Chronic respiratory failure Indications: Chronic respiratory failure requiring percutaneous tracheostomy. Consent: Written consent was obtained Anesthesia: Propofol IV, rocuronium IV Description of the Procedure: The patient was sedated and mechanically ventilated. The patient was placed on 100% FIO2 and a volume control mode of ventilation. The fiberoptic bronchoscopy was inserted via endotracheal tube. The trachea, right and left mainstem bronchi, and sub-segmental bronchi were evaluated. The endobronchial anatomy was normal. Findings: Preprocedure assessment of the bronchial anatomy was performed was deemed to be normal. Under direct bronchoscopic guidance, the needle, guidewire , and percutaneous dilation tracheostomy were performed. Please see separate procedure note for tracheostomy details. After tracheostomy is in place and before positive pressure ventilation, the bronchoscope was inserted through the tracheostomy and tracheostomy was confirmed in the lumen of the trachea. There was minimal bloody secretions in the trachea. BAL samples: BAL samples were not sent. The patient tolerated the procedure well with no hemodynamic instability or hypoxia. There were no immediate complications noted. At the conclusion of the procedure, the patient was placed back on their pre-procedure ventilatory settings. There was minimal EBL. A chest x-ray has been ordered. I personally performed the procedure. Epi Holcomb MD Jun 14, 2016 15:40
--- NOTE | 2016-06-14 16:09 | RADRPT ---
EXAM DATE/TIME: 06/14/2016 15:40 [facility] COMPARISON: CHEST SINGLE AP, June 12, 2016, 2:05. INDICATIONS : Trach placement. MEDICAL HISTORY : Renal insufficiency. Stroke. Myocardial infarction. SURGICAL HISTORY : None. ENCOUNTER: Initial ACUITY: 1 day PAIN SCORE: Non-responsive. LOCATION: Bilateral chest FINDINGS: ET tube and nasogastric tube have been removed. Persistent basilar densities with consolidation in th e left base are unchanged. No evidence of complication of pneumothorax. CONCLUSION: Placement of tracheostomy without complication. Otherwise stable chest Darin Ye MD on June 14, 2016 at 16:06 Board Certified Radiologist. This report was verified electronically.
[2016-06-14] MEDS ORDERED: EPINEPHrine HCL (1:10,000) 1 MG/10 ML SYRINGE OTHER ONE (17:00)
[2016-06-14] MEDS ORDERED: PHYTONADIONE 10 MG/ML VIAL SQ ONE (17:45)
[2016-06-14] MEDS: DEXMEDETOMIDINE INJ 1,000 MCG in SODIUM CHLOR 0.9% 250 ML INJ 250 ML IV SCH (18:03)
[2016-06-14 20:45] LABS: AUTOMATED NEUTROPHIL # 6.5 TH/MM3 (1.8-7.7); BASOPHIL # 0.1 TH/MM3 (0-0.2); BASOPHIL % 0.9 % (0.0-2.0); EOSINOPHIL % 0.5 % (0.0-4.0); HEMATOCRIT 23.1 % (39.0-51.0); HEMO FLAGS DIFF FINAL; LYMPH % 7.3 % (9.0-44.0); LYMPHOCYTE # 0.6 TH/MM3 (1.0-4.8); MEAN CELL VOLUME 86.6 FL (80.0-100.0); MEAN CORPUSCULAR HGB CONC 35.8 % (32.0-36.0); MONO % 13.3 % (0.0-8.0); PLATELET COUNT 138 TH/MM3 (150-450); RED BLOOD COUNT 2.67 MIL/MM3 (4.50-5.90); RED CELL DISTRIBUTION WIDTH 14.2 % (11.6-17.2); WHITE BLOOD COUNT 8.3 TH/MM3 (4.0-11.0)
[2016-06-15] VITALS (19 sets, daily range): BP systolic 111–129; BP diastolic 57–62; PULSE 64–77; RESP 12–13; TEMP 96.1–98.6; O2SAT 97–100
[2016-06-15 02:10] LABS: REVIEW FLAG FINAL
[2016-06-15 02:12] LABS: HEMATOCRIT 19.2 % (39.0-51.0)
[2016-06-15] MEDS: INSULIN NovoLIN REGULAR SUPPLEMENTAL SCALE SQ SCH ×4 (03:00→20:11)
[2016-06-15] MEDS: CHLORHEXIDINE GLUCONATE 2 % 1 PACK (2 CLOTHS) TOP SCH (04:00)
[2016-06-15 05:25] LABS: HEMATOCRIT 21.1 % (39.0-51.0); MEAN CELL VOLUME 88.1 FL (80.0-100.0); MEAN CORPUSCULAR HEMOGLOBIN 30.3 PG (27.0-34.0); MEAN CORPUSCULAR HGB CONC 34.4 % (32.0-36.0); PLATELET COUNT 150 TH/MM3 (150-450); RED CELL DISTRIBUTION WIDTH 13.7 % (11.6-17.2); REVIEW FLAG FINAL
[2016-06-15 05:53] LABS: BICARBONATE 29.6 MEQ/L (21.0-32.0); POTASSIUM 3.6 MEQ/L (3.5-5.1)
[2016-06-15] MEDS: HEPARIN SODIUM - SQ 10,000 UNITS/ML VIAL SQ SCH ×3 (06:00→20:12)
[2016-06-15] MEDS: METOPROLOL TARTRATE 25 MG TAB PO/NG SCH ×5 (06:00→23:07)
[2016-06-15 07:04] LABS: INHIBITOR SCREEN-APTT PATIENT 30.3 SEC (24.3-30.1)
[2016-06-15 07:05] LABS: INHIB SCRN PT PATIENT 11.1 SEC (9.8-11.6)
[2016-06-15] MEDS: ASPIRIN EC 81 MG TABEC PO SCH (09:00)
--- NOTE | 2016-06-15 10:12 | HHI.NPPN ---
Subjective General Problems: Anemia Renal Failure: Chronic, End Stage Renal Disease Interval History Trach was placed. He is bleeding profusely from both PEG and trach. Receiving blood today. He is awake, does not follow commands. (Temitope Haley) Review of Systems General General Remarks unable to evaluate due to mental status (Temitope Haley) Objective Data Data 06/14/16 06/15/16 19:00 07:00 Intake Total 570 ml 1269 ml Output Total 1000 ml 0 ml Balance -430 ml 1269 ml IV Total 510 ml 436 ml Tube Feeding 0 ml Packed Cells 250 ml FFP 320 ml Platelets 263 ml Other 60 ml Output Urine Total 0 ml 0 ml Hemodialysis 1000 ml # Bowel Movements 1 2 Vital Signs Date Time Temp Pulse Resp B/P Pulse Ox O2 Delivery O2 Flow Rate FiO2 06/15/16 08:32 100 40 06/15/16 06:00 69 06/15/16 04:15 100 40 06/15/16 04:00 35 06/15/16 04:00 64 06/15/16 04:00 96.1 64 12 111/57 100 06/15/16 02:00 67 06/15/16 01:10 97 40 06/15/16 00:00 35 06/15/16 00:00 96.1 65 12 121/62 100 06/15/16 00:00 65 06/14/16 22:30 97 40 06/14/16 22:00 64 06/14/16 20:00 35 06/14/16 20:00 94.5 68 15 127/67 100 06/14/16 20:00 68 06/14/16 19:18 100 40 06/14/16 18:00 76 06/14/16 17:33 100 40 06/14/16 16:00 80 06/14/16 16:00 35 06/14/16 16:00 98.1 80 12 130/67 100 06/14/16 14:15 100 100 06/14/16 14:00 77 06/14/16 12:00 97.8 71 12 109/63 100 06/14/16 12:00 71 06/14/16 12:00 35 06/14/16 10:32 100 35 (Temitope Haley) -: 06/15/16 0426 06/15/16 0426 Tubes & Lines Comment trach, PEG Drip Comment Fentanyl (Temitope Haley) Physical Exam General Appearance: Well Developed, Well Nourished, Comfortable (Temitope Haley) Eyes Eye Exam: Pupils Equal, Pupils Reactive (Temitope Haley) Neck Neck Exam: Neck Supple Neck Remarks trach, bleeding around stoma (Temitope Haley) Pulmonary Resp Exam: Breath Sounds Equal, Crackles, Decreased Bases, Diminished Breath Sounds (Temitope Haley) Cardiology CV Exam: Regular, Normal Sinus Rhythm, Good Perfusion (Temitope Haley) Gastrointestinal/Abdomen GI Exam: Soft, Non-Tender, Bowel Sounds Present, Non-Distended GI Remarks PEG site bleeding (Temitope Haley) Musculoskeletal MS Exam: Joints Intact, Normal Tone MS Remarks moves all extremities (Temitope Haley) Integumentary Skin Exam: Clear, Warm, Dry, Intact (Temitope Haley) Extremeties Extremities Exam: Pedal Pulses Palpable, Trace Edema (Temitope Haley) Neurologic Neuro Exam: Unresponsive, Sedated (Temitope Haley) Assessment/Plan Discussed Condition With: Patient, Relative Assessment Summary: Anemia of CKD, Hypertension, End Stage Renal Disease Electrolyte Assessment: Hypocalcemia Problem List: (1) ESRD on dialysis Plan: Continue dialysis T-Th-Sat monitor AVF function intermittent metabolic profile, potassium improved BP improved monitor fluid volume status, no IVF required (2) Hypertension Plan: BP has improved He is on metoprolol, hydralazine, clonidine with hold parameters (3) DM (diabetes mellitus) Plan: continue insulin coverage goal to maintain blood glucose between 140 and 180 (4) Hyperkalemia Plan: corrected with extra dialysis treatment on 06/13 monitor for recurrence (5) NSTEMI (non-ST elevated myocardial infarction) Plan: Troponin I elevated post cardiac arrest, chest compressions. he had catheterization in January 2016, normal coronary arteries (6) Elevated LFTs Plan: improved. (7) Cocaine abuse Plan: cessation had been advised. (8) Encephalopathy Plan: vent management, s/p trach placement poor prognosis (9) Anemia Plan: hemoglobin normally stable now with acute blood loss from surgery, being transfused today Plan p (Temitope Haley) Plan patient was seen and examined. Bleeding from PEG tube site, and tracheostomy site. Discussed with Dr. Holcomb. CT abdomen ordered. Dialysis on Monday. ( Chetan Francisco MD) Problem Qualifiers (1) Hypertension: Qualified Code: I10 - Essential hypertension (2) DM (diabetes mellitus): Qualified Code: E11.22 - Type 2 diabetes mellitus with diabetic chronic kidney disease, unspecified CKD stage, unspecified skilled nursing insulin use status Temitope Haley Jun 15, 2016 10:12 Chetan Francisco MD Jun 16, 2016 14:08
[2016-06-15] MEDS: DOCUSATE SODIUM 100 MG CAP PO SCH ×2 (10:13→23:07)
[2016-06-15] MEDS: CALCIUM ACETATE 667 MG CAP NG SCH ×3 (10:14→18:46)
[2016-06-15] MEDS: cloNIDine HCL 0.1 MG TAB PO SCH ×3 (10:14→18:46)
[2016-06-15] MEDS: hydrALAZINE HCL 25 MG TAB PO SCH ×3 (10:14→18:46)
[2016-06-15] MEDS: PANTOPRAZOLE SODIUM 40 MG VIAL IV SCH (10:14)
[2016-06-15] MEDS: CHLORHEXIDINE 0.12% (ORAL KIT) 15 ML CUP MT SCH ×2 (10:22→20:12)
[2016-06-15] MEDS: SODIUM CHLORIDE 0.9% FLUSH 5 ML FLUSH IV FLUSH SCH ×2 (10:22→20:11)
[2016-06-15] MEDS: DEXMEDETOMIDINE INJ 1,000 MCG in SODIUM CHLOR 0.9% 250 ML INJ 250 ML IV SCH (10:33)
--- NOTE | 2016-06-15 11:18 | HHI.CCPN ---
Subjective Remarks/Hospital Course 05/28: 60 yo AAM with PMH of HTN, stroke without residual deficit, DM, nonischemic cardiomyopathy (EF 40% and stage I diastolic dysfunction) Cocaine abuse, Hepatitis C, ESRD on HD T/R/Sat who presents to [facility] ED for 2 day history of SOB. He reported symptoms started 1/ after he received hemodialysis. He reported a nonproductive cough without fevers, chills, or chest pain. His workup revealed a normal white count and CXR that demonstrated RLL consolidation. His potassium was 6.8. While preparations were being made to administer medications to address his hyperkalemia he developed bradycardia and PEA arrest. He underwent CPR and received epinephrine and 1 amp of bicarbonate. It was return of spontaneous circulation after 8 minutes. He was intubated by the emergency department physician Dr. Clancy. Dr. Francisco with nephrology was consulted and he made arrangements for urgent dialysis which is taking place currently. Target removal 3.8 L per HD RN. Postintubation CXR demonstrates R base infiltrate but also appears there is right pleural effusion. Influenza screen negative. Receive Zosyn and azithromycin in the emergency department. 05/29: Sedated, arousable, not following commands, orally intubated on mechanical ventilation. Gets agitated on lightening sedation and has a strong gag reflex. 05/30: Sedated, arousable, not following commands. Remains orally intubated on mechanical ventilation. Failed C Pap trial today. Dialyzed earlier. 05/31: Sedated/encephalopathic on lightening sedation, not following commands. Remains orally intubated on mechanical ventilation. Failed C Pap trials yesterday. 2-D echo just being completed today. 06/01 No events overnight. On Precedex drip unresponsive and doesn't follow commands. Afebrile. 06/02 Patient s/p HD yesterday with removal 1.5L , on Precedex infusion for sedation. 06/03 No events overnight. Sedated with fentanyl and intubated. s/p HD yesterday with removal 1.5L. 06/04 Patient remains sedated and intubated. Afebrile. Did not tolerate CPAP trials yesterday as he became tachypneic. 06/05 Patient s/p HD yesterday with removal 2L. Sedated with Fentanyl and intubated. Afebrile. Patient gets very agitated and restless when sedation is weaned off. 06/06 Patient is sedated with Fentanyl placed on Diprivan as well last night. Gets agitated and tachypneic on CPAP trials. s/p HD yesterday with removal 2L. 06/07: Remains sedated/encephalopathic, orally intubated on mechanical ventilation. Failed C Pap trials yesterday. 06/08: Remains sedated/encephalopathic, orally intubated on mechanical ventilation. Gets agitated on lightening sedation however not following commands. We'll attempt Precedex and titrate down on fentanyl/propofol 06/09: Remains sedated/encephalopathic, orally intubated on mechanical ventilation. On Precedex/propofol/fentanyl. Will attempt transitioning to Precedex alone to control agitation for C Pap trials. 06/10: Still requiring Precedex/propofol and fentanyl for CPAP trials. Patient continues to be extremely agitated and currently unable to extubate. Not following commands. Positive BM. Tolerating tube feeds. Afebrile. 06/11: On Precedex drip currently. -3 L of hemodialysis. Moving all 4 extremities but not following commands. Subjective 06/12: no changes. plan for PEG and Trach tomorrow. 06/13: plan for trach today. discussed with health care proxy and she still has concerns about possible trach. will touch base with palliative care. have talked with Dr. Lee from trauma, and plan for trach at some point depending on his schedule and per family discussions. 06/14: plan for trach today. significant bleeding from around PEG site. GI aware. 2 units prbc ordered. coags ordered. 0.3mcg/kg DDAVP ordered. 06/15: trach yesterday by Dr. Lee. trach site and PEG site with ongoing oozing despite FFP, platelets, DDAVP. I talked with Dr. Francisco and he is ok with iv contrast for imaging if needed, given that this is ESRD with no hope of renal recovery. Objective Vital Signs Date Time Temp Pulse Resp B/P Pulse Ox O2 Delivery O2 Flow Rate FiO2 06/15/16 08:32 100 40 06/15/16 06:00 69 06/15/16 04:00 96.1 12 111/57 Intake and Output 06/14/16 06/14/16 06/15/16 08:00 16:00 00:00 Intake Total 223 ml 570 ml 218 ml Output Total 25 ml 1000 ml 0 ml Balance 198 ml -430 ml 218 ml Result Diagram: 06/15/16 0426 06/15/16 0426 Imaging Last Impressions Chest X-Ray 06/11/16 0600 Signed Impressions: Service Date/Time: Saturday, June 11, 2016 03:31 - CONCLUSION: Persistent left lower lobe consolidation and right pleural effusion. Earnest Torre MD Brain MRI 06/10/16 0000 Signed Impressions: Service Date/Time: Friday, June 10, 2016 20:14 - CONCLUSION: 1. Mild chronic-appearing ischemic changes in the periventricular white matter slightly progressed from 2014. No recent infarct, mass effect or midline shift. No hydrocephalus. Lakhwinder Pringle MD Liver Ultrasound 06/01/16 0000 Signed Impressions: Service Date/Time: Wednesday, June 01, 2016 15:38 - CONCLUSION: 1. Bilateral pleural effusions. 2. Thick-walled gallbladder with minimal pericholecystic fluid. If there is clinical concern for acute cholecystitis a hepatobiliary scan may be helpful to confirm cystic duct obstruction. 3. Minimal ascites. 4. Echogenic atrophic right kidney. 5. Mild nonspecific prominence of the main pancreatic duct. Enzo Price MD Head CT 05/29/16 0000 Signed Impressions: Service Date/Time: Sunday, May 29, 2016 03:03 - CONCLUSION: Age- appropriate atrophy, stable from prior in September 2015. No acute findings. Earnest Torre MD Lower Extremity Ultrasound 05/28/16 0000 Signed Impressions: Service Date/Time: Saturday, May 28, 2016 22:27 - CONCLUSION: Negative for deep venous thrombosis bilateral lower extremity. Earnest Torre MD Objective Remarks GENERAL: 60 yo AA male, critically ill, trached. SKIN: Warm and dry. No rash HEAD: Normocephalic. EYES: Pupils minimally reactive at 2 mm bilaterally. No scleral icterus. No injection or drainage. NECK: Supple, trachea midline. No JVD. trach in place with dressings that are saturated around the trach. CARDIOVASCULAR: Regular rate and rhythm with S1, S2. No S4. II/ systolic murmur at the apex RESPIRATORY: Breath sounds equal bilaterally. No accessory muscle use. GASTROINTESTINAL: Abdomen soft, non-tender, nondistended. moderate amount of bright red blood oozing from around the PEG site. pressure dressing is applied. MUSCULOSKELETAL: No disc and peripheral edema. Positive thrill left AV fistula. Neuro: Intubated, encephalopathic, moves all 4 extremities, nonpurposeful, not following commands on lightening sedation but gets agitated. A/P Assessment and Plan NEURO: Acute encephalopathy, post cardiac arrest. History of stroke without residual deficit (per friend's report) History of cocaine abuse Posttraumatic stress disorder On precedex, propofol infusion for sedation/analgesia while intubated. Daily sedation vacation Sedated/encephalopathic Neuro is following-Dr. Wilks peripherally RESP: Acute respiratory failure Healthcare associated pneumonia Intubated in ED 05/28/16 following cardiac arrest Continue with vent support keep sat >92% Duoneb q6 hours. Albuterol q2 prn. Ventilator Bundle. Daily SBT as leana. Patient has been intubated since 05/28 -- s/p trach 06/14. -- continue SBTs daily CV: Cardiac arrest, secondary to hyperkalemia Nonischemic cardiomyopathy secondary to HTN, cocaine abuse Hypertension Elevated Troponin: ? NSTEMI Monitor HR and BP keep MAP>65mmHg Continue home meds: Hydralazine 25 tid. Clonidine 0.1 tid., Lopressor 25mg Q6 ( 100 mg twice a day at home ASA 81 mg daily will be continued. Echo 05/31: EF 25-30%, no RWMA. Mild MR/TR. MEGAN 36 mmHg cardiac cath 12/09/2012 - EF 40%, normal coronaries. Elevated troponin, cardiac arrest. Per cardiology-no intervention planned. GI: Hepatitis C Elevated LFT Continue TF-Nepro@40ml/hr Monitor LFT's: Trending down US liver: Bilateral pleural effusions. Thick-walled gallbladder with minimal pericholecystic fluid. Minimal ascites. Echogenic atrophic right kidney. Mild nonspecific prominence of the main pancreatic duct. Protonix for GI prophylaxis Colace for bowel regimen FEN/RENAL: ESRD Acute severe hyperkalemia - resolved Intermittent hemodialysis per nephrology (Dr. Francisco) Emergent HD 05/28 due to potassium of 6.8 with bradycardia and cardiac arrest. plan for IHD today. Monitor renal function, I/O's, avoid nephrotoxins. s/p HD today with 3L removed. ID: Acute healthcare associated pneumonia Received Zosyn and azithromycin in the emergency department 05/28. s/p Zosyn 2.25 g IV every 8 hours 05/29 - 06/12. Azithro x 10 days.05/28 nasal washing negative for Influenza. continue to monitor and osborn culture and rebroaden for clinical change. Pertinent cultures 05/28 - blood cultures 2 - 1 out of 2 corynebacterium not Jk 05/29 Sputum- beta strep not A HEME: Anemia of acute blood loss from PEG tube Thrombocytopenia overnight 1 unit prbc, 1 ffp, 1 plt. DDAVP given yesterday. we will repeat 0.3mcg/kg DDAVP x 1. -- repeat coags. -- order fibrinogen -- order stat CT abd/pelvis with iv contrast. -- Gen surg consult as requested by GI. I do think this is likely medical coagulopathy from ESRD and less likely to be a surgical problem. Monitor CBC ENDO: Diabetes mellitus Medium dose Insulin sliding scale with bedside glucose every 6 hours PROPH: hold pharmacologic DVT prophylaxis in the setting of active bleeding. Protonix 40 mg IV daily for stress ulcer prophylaxis. Doppler US LE negative for DVT ACCESS: Peripheral IV providing adequate access at this time. Left AV fistula accessed for hemodialysis Full code Palliative care is following to assist with deciding goals of therapy. Critical Care: The total critical care time was 48 minutes. Time to perform other separately billable procedures was not included in the critical care time. Epi Holcomb MD Jun 15, 2016 11:18
[2016-06-15] MEDS ORDERED: DESMOPRESSIN ACETATE 4 MCG/ML VIAL IV ONE (11:30)
[2016-06-15 12:31] LABS: HEMATOCRIT 23.2 % (39.0-51.0); MEAN CELL VOLUME 87.4 FL (80.0-100.0); MEAN CORPUSCULAR HEMOGLOBIN 30.1 PG (27.0-34.0); MEAN CORPUSCULAR HGB CONC 34.4 % (32.0-36.0); PLATELET COUNT 149 TH/MM3 (150-450); RED BLOOD COUNT 2.65 MIL/MM3 (4.50-5.90); REVIEW FLAG FINAL; WHITE BLOOD COUNT 7.5 TH/MM3 (4.0-11.0)
[2016-06-15 12:47] LABS: APTT (PATIENT) 30.2 SEC (24.3-30.1); PROTHROMBIN TIME - PATIENT 10.8 SEC (9.8-11.6)
[2016-06-15] MEDS: PROPOFOL 1000 MG/100 ML INJ 100 ML IV SCH (12:48)
[2016-06-15] MEDS ORDERED: SODIUM CHLORIDE 0.9% IV ONE (13:00)
[2016-06-15] MEDS ORDERED: DESMOPRESSIN IV ONE (13:00)
--- NOTE | 2016-06-15 13:15 | MB ---
cc: CARLO BEST M.D., BEATRICE S. M.D. DATE OF CONSULTATION: 06/15/2016 REASON FOR CONSULTATION Hematology is consulted to render an opinion about patient bleeding from PEG tube site. HISTORY OF PRESENT ILLNESS The patient is a 60-year-old male who first presented to the hospital with shortness of breath and cough. He has end-stage renal disease on dialysis. He went into cardiac arrest and has been in the intensive care unit since then. He was intubated on 05/28/2016. He also developed encephalopathy. A PEG tube was placed on 06/13/2016 and a tracheostomy was placed yesterday. The patient has been oozing around the PEG tube and tracheostomy site. He developed a further drop in hemoglobin. He received one unit of platelets last night, one unit of fresh frozen plasma and has had two units of packed red blood cells. The patient at this time is not able to provide history. The history is obtained from his chart. PAST MEDICAL HISTORY 1. End-stage renal disease. 2. Hypertension. 3. Stroke. 4. Diabetes mellitus. 5. Cardiomyopathy. 6. Cocaine abuse. 7. Hepatitis C. PAST SURGICAL HISTORY 1. Scrotal surgery. 2. ORIF of finger. 3. Left upper extremity AV fistula. FAMILY HISTORY Noncontributory. SOCIAL HISTORY Positive tobacco use and cocaine use. ALLERGIES 1. IBUPROFEN. 2. SULFA. MEDICATIONS Current medications: 1. PhosLo. 2. Lopressor. 3. Protonix. 4. Hydralazine. 5. Clonidine. 6. Peridex. 7. Chlorhexidine. 8. Heparin subcutaneous, on hold. 9. Colace. 10. Baby aspirin, now on hold. REVIEW OF SYSTEMS Unobtainable. PHYSICAL EXAMINATION VITAL SIGNS: Temperature 96.1, blood pressure 111/57. GENERAL: He is on the ventilator under sedation. He does open his eyes to voice command. HEENT: Atraumatic, normocephalic. Pupils equal, round and reactive to light. Oropharynx with dry mucosa. NECK: Tracheostomy site oozing blood. CARDIOVASCULAR: Regular S1, S2. No murmur. LUNGS: Clear to auscultation anteriorly. ABDOMEN: PEG tube site pressure dressing is still oozing blood. EXTREMITIES: No cyanosis or clubbing. SKIN: No rash or petechiae. NEUROLOGIC: Under sedation. LABORATORY DATA Laboratory data reviewed. ASSESSMENT 1. Bleeding around the PEG tube site and tracheostomy site. His INR is normal. His PTT is only slightly elevated. I think that he likely has bleeding due to platelet dysfunction from end-stage renal disease. He did receive one unit of platelets overnight. He had one unit of fresh frozen plasma. He was given 16 mcg of DDAVP. He also received vitamin-K 5 mg. At this point I am going to check his fibrinogen level to make sure he is not in DIC. Will repeat his coagulation study. His heparin and baby aspirin is now on hold. If his fibrinogen level is normal I will give him another unit of platelet transfusion. Could also consider giving him Amicar. 2. Respiratory failure. 3. Encephalopathy. 4. End-stage renal disease on dialysis. RECOMMENDATIONS 1. Check DIC panel and check the fibrinogen. 2. Would give him another unit of platelet transfusion. 3. Consider giving him Amicar if he is not in DIC. Discussed with . Thank you Dr. Coleman for asking me to see this patient. MD JACE Rao/GRISELDA /12:45 PM /12:58 PM RENETTA
[2016-06-15] MEDS ORDERED: IOHEXOL 350 MG/ML 10 ML VIAL (for RAD DIAG) IV ONE (13:30)
--- NOTE | 2016-06-15 14:02 | RADRPT ---
EXAM DATE/TIME: 06/15/2016 13:16 [facility] COMPARISON: No previous studies available for comparison. INDICATIONS : Bleeding from peg tube and tracheostomy. IV CONTRAST: 95 cc Omnipaque 350 (iohexol) IV ORAL CONTRAST: No oral contrast ingested. RADIATION DOSE: 5.52 CTDIvol (mGy) MEDICAL HISTORY : Cardiovascular disease. Congestive heart failure. Diabetes mellitus type 2.Hype rtension. Renal failure. SURGICAL HISTORY : None. ENCOUNTER: Initial ACUITY: 1 day PAIN SCALE: Non-responsive LOCATION: Abdomen. TECHNIQUE: Volumetric scanning of the abdomen and pelvis was performed. Using automated exposure control and adjustment of the mA and/or kV according to patient size, radiation dose was kept as low as reasonably achievable to obtain optimal diagnostic quality images. FINDINGS: There is a large amount of free intraperitoneal air present. Bibasilar consolidative changes are noted with bilateral pleural effusions. The patient has a gastrostomy tube in place that appears in good position. Trace ascites is evident. There is no evidence for abscess. The pelvic contents other than ascites is unremarkable. CONCLUSION: Significant free intraperitoneal air. Consolidative changes in both bases with small bilateral pleural effusions. Mikhail Abrams MD FACR on June 15, 2016 at 13:45 Board Certified Radiologist. This report was verified electronically.
[2016-06-15] MEDS: SODIUM CHLORIDE 23.4% INJ 154 MEQ in DEXTROSE 10% INJ 1,000 ML IV SCH (14:06)
--- NOTE | 2016-06-15 14:18 | HHI.GIFU ---
Subjective Remarks Resting in bed in no distress. Nurse reports that GS placed suture earlier today. No further bleeding from PEG tube site, although now oozing from trach site. (Tatiana Sweeney) Objective Vitals I&O Vital Signs Date Time Temp Pulse Resp B/P Pulse Ox O2 Delivery O2 Flow Rate FiO2 06/15/16 13:19 100 06/15/16 11:31 100 40 06/15/16 08:32 100 40 06/15/16 06:00 69 06/15/16 04:15 100 40 06/15/16 04:00 35 06/15/16 04:00 64 06/15/16 04:00 96.1 64 12 111/57 100 06/15/16 02:00 67 06/15/16 01:10 97 40 06/15/16 00:00 35 06/15/16 00:00 96.1 65 12 121/62 100 06/15/16 00:00 65 06/14/16 22:30 97 40 06/14/16 22:00 64 06/14/16 20:00 35 06/14/16 20:00 94.5 68 15 127/67 100 06/14/16 20:00 68 06/14/16 19:18 100 40 06/14/16 18:00 76 06/14/16 17:33 100 40 06/14/16 16:00 80 06/14/16 16:00 35 06/14/16 16:00 98.1 80 12 130/67 100 06/14/16 14:15 100 100 06/14/16 14:00 77 I/O 06/14/16 06/14/16 06/14/16 06/15/16 06/15/16 06/15/16 07:00 15:00 23:00 07:00 15:00 23:00 Intake Total 223 ml 570 ml 218 ml 1051 ml Output Total 25 ml 1000 ml 0 ml 0 ml Balance 198 ml -430 ml 218 ml 1051 ml IV Total 223 ml 510 ml 218 ml 218 ml Tube Feeding 0 ml Packed Cells 250 ml FFP 320 ml Platelets 263 ml Other 60 ml Output Urine Total 25 ml 0 ml 0 ml 0 ml Hemodialysis 1000 ml # Bowel Movements 1 1 1 1 Laboratory Laboratory Tests Test 1/24/17 1/24/17 1/25/17 1/25/17 20:30 20:34 01:35 04:21 White Blood Count 8.3 Red Blood Count 2.67 Hemoglobin 8.3 6.6 Hematocrit 23.1 19.2 Mean Corpuscular Volume 86.6 Mean Corpuscular Hemoglobin 31.0 Mean Corpuscular Hemoglobin 35.8 Concent Red Cell Distribution Width 14.2 Platelet Count 138 Mean Platelet Volume 10.8 Neutrophils (%) (Auto) 78.0 Lymphocytes (%) (Auto) 7.3 Monocytes (%) (Auto) 13.3 Eosinophils (%) (Auto) 0.5 Basophils (%) (Auto) 0.9 Neutrophils # (Auto) 6.5 Lymphocytes # (Auto) 0.6 Monocytes # (Auto) 1.1 Eosinophils # (Auto) 0.0 Basophils # (Auto) 0.1 CBC Comment DIFF FINAL Differential Comment Blood Bank Comment Prothrombin Time 11.1 Prothrombin Time Control Activated Partial 30.3 Thromboplast Time APTT Control Mix PT Normal Plasma Immediate Mix PT Normal Plasma 1 Hour Mix PT Patient/Normal 1:4 Immediate Mix PT Patient/Normal 1:1 Immediate Mix PT Patient/Normal 1:1 1 Hr 37c Mix PT Patient/Normal 4:1 Immediate PT Mixing Studies Interpretation Mix PTT Normal Plasma Immediate Mix PTT Normal Plasma 1 Hour Mix PTT Patient/Normal 1:4 Immed Mix PTT Patient/Normal 1:1 Mix PTT Patient/Normal 1:1 1 Hr 37c Mix PTT Patient/Normal 4:1 Immed Circulating Anticoagulant PTT Intrp Coagulation Factor Inhibitor Screen Blood Type O POSITIVE Crossmatch Leukocyte-Reduced Red Blood Cells Test 06/15/16 06/15/16 04:26 12:07 White Blood Count 6.0 7.5 Red Blood Count 2.40 2.65 Hemoglobin 7.3 8.0 Hematocrit 21.1 23.2 Mean Corpuscular Volume 88.1 87.4 Mean Corpuscular Hemoglobin 30.3 30.1 Mean Corpuscular Hemoglobin 34.4 34.4 Concent Red Cell Distribution Width 13.7 15.0 Platelet Count 150 149 Mean Platelet Volume 10.6 9.9 Sodium Level 138 Potassium Level 3.6 Chloride Level 97 Carbon Dioxide Level 29.6 Anion Gap 11 Blood Urea Nitrogen 34 Creatinine 4.19 Estimat Glomerular Filtration 18 Rate Random Glucose 123 Calcium Level 8.9 Prothrombin Time 10.8 Prothromb Time International 1.0 Ratio Activated Partial 30.2 Thromboplast Time Fibrinogen 237 Imaging Last Impressions Chest X-Ray 06/14/16 0000 Signed Impressions: Service Date/Time: Tuesday, June 14, 2016 15:40 - CONCLUSION: Placement of tracheostomy without complication. Otherwise stable chest Darin Ye MD Brain MRI 06/10/16 0000 Signed Impressions: Service Date/Time: Friday, June 10, 2016 20:14 - CONCLUSION: 1. Mild chronic-appearing ischemic changes in the periventricular white matter slightly progressed from 2014. No recent infarct, mass effect or midline shift. No hydrocephalus. Lakhwinder Pringle MD Liver Ultrasound 06/01/16 0000 Signed Impressions: Service Date/Time: Wednesday, June 01, 2016 15:38 - CONCLUSION: 1. Bilateral pleural effusions. 2. Thick-walled gallbladder with minimal pericholecystic fluid. If there is clinical concern for acute cholecystitis a hepatobiliary scan may be helpful to confirm cystic duct obstruction. 3. Minimal ascites. 4. Echogenic atrophic right kidney. 5. Mild nonspecific prominence of the main pancreatic duct. Enzo Price MD Head CT 05/29/16 0000 Signed Impressions: Service Date/Time: Sunday, May 29, 2016 03:03 - CONCLUSION: Age- appropriate atrophy, stable from prior in September 2015. No acute findings. Earnest Torre MD Lower Extremity Ultrasound 05/28/16 0000 Signed Impressions: Service Date/Time: Saturday, May 28, 2016 22:27 - CONCLUSION: Negative for deep venous thrombosis bilateral lower extremity. Earnest Torre MD Physical Exam HEENT: Normocephalic; atraumatic; no jaundice. CHEST: CTA. Trach with moderate amount of oozing blood from site. CARDIAC: RRR. ABDOMEN: Soft, nondistended, nontender; no hepatosplenomegaly; bowel sounds are present in all four quadrants. PEG tube site- this was sutured and surgicel was applied by GS today and there is not currently any active bleeding. EXTREMITIES: No clubbing, cyanosis, or edema. SKIN: Normal; no rash; no jaundice. MANAGEMENT DEVELOPER: Sedated on vent. (Tatiana Sweeney) Assessment and Plan Plan ASSESSMENT: - Bleeding at PEG tube site. S/P EGD with peg (06/13/16)---> duodenitis second portion, gastritis antrum, retroflexed views revealed a hiatal hernia. Pt had significant oozing from site after procedure, s/p gelfoam and pressure drsg. This has continued to ooze overnight. Took down drsg- gelfoam in place, still oozing small to moderate amount of blood continuously. HH 8.0/23.2. S/P 3 units PRBC. S /P Silver nitrate, injection of epinephrine on 06/14- oozing from peg tube stopped at time, but apparently started oozing again. Had repeat EGD (06/14/16) for control of bleeding. Pt has continued to have oozing and therefore had a suture placed and surgicel applied by GS today and has not had any further bleeding from the PEG tube site.CT scan with free air. NPO. - Abnormal CT with free air. CT abdominal pelvis with significant free intraperitoneal air, consolidative changes in both bases with small bilateral pleural effusions. WBC 14.0. He does not appear to have an acute abdomen. ? Escaped air from peg tube site and repeat EGD. WIll place NGT to LI and notify Dr. Tabares. - Dysphagia/FEN- S/P EGD with peg tube placement (06/13/16). - Anemia. 8.0/23.2. - Respiratory failure/ healthcare associated pneumonia - S/P Tracheostomy. Pt with some oozing related to this. - Hepatitis C - History of cocaine abuse - ESRD- HD Plan: - NPO - NGT to [facility] - D/W Dr. Tabares - S/P Suture, Surgicel by GS at PEG tube site. - S/P Silver nitrate applications - S/P Epinephrine injection at site - S/P Gelfoam application - Monitor HH - Transfuse as necessary - Supportive care - Further recommendations to follow based on results of above - Patient seen and examined by Dr. coleman and myself and this note is written on her behalf. (Tatiana Sweeney) Physician Comments seen, examined agree with above ct showed some free air-patient had recent peg tube and repeat endoscopy with insufflation of air in stomach , possible escaped air thought the peg tube site , no indication of acute abdomen surgery input appreciated we will may start feeding tomorrow if no bleeding (Bratu,PrachiTatiana Soliz Jun 15, 2016 14:18 Prachi Coleman MD Jun 15, 2016 18:34
[2016-06-15] MEDS ORDERED: SODIUM CHLOR 0.9% IV ONE (18:15)
[2016-06-15] MEDS ORDERED: AMINOCAPROIC ACID IV ONE (18:15)
[2016-06-15 21:47] LABS: REVIEW FLAG FINAL
[2016-06-16] VITALS (20 sets, daily range): BP systolic 115–147; BP diastolic 55–70; PULSE 66–100; RESP 12–16; TEMP 96.7–98.8; O2SAT 100
[2016-06-16] MEDS: PROPOFOL 1000 MG/100 ML INJ 100 ML IV SCH (00:44)
[2016-06-16] MEDS: DEXMEDETOMIDINE INJ 1,000 MCG in SODIUM CHLOR 0.9% 250 ML INJ 240 ML IV SCH (02:53)
[2016-06-16] MEDS: INSULIN NovoLIN REGULAR SUPPLEMENTAL SCALE SQ SCH ×4 (03:00→20:20)
[2016-06-16] MEDS: CHLORHEXIDINE GLUCONATE 2 % 1 PACK (2 CLOTHS) TOP SCH (03:01)
--- NOTE | 2016-06-16 05:21 | RADRPT ---
EXAM DATE/TIME: 06/16/2016 04:06 [facility] COMPARISON: CT ABDOMEN & PELVIS W CONTRAST, June 15, 2016, 13:16. CHEST SINGLE AP, June 14, 2016, 15:40. INDICATIONS : Shortness of breath, possible pulmonary disease. MEDICAL HISTORY : Renal insufficiency. Stroke. Myocardial infarction. SURGICAL HISTORY : None. ENCOUNTER: Subsequent ACUITY: 4 - 6 days PAIN SCORE: Non-responsive. LOCATION: Bilateral chest FINDINGS: The tracheostomy tube remains in place. There are some increasing infiltrates in both lung bases. The upper lung buitrago are clear. The heart size is enlarged but stable. There is no evidence of pneumoth orax. There is however free air underneath the right hemidiaphragm. The free intraperitoneal air was previously described on a CT abdomen and pelvis of 06/15/2016. No evidence of any significant pleural effusions. The bony structures are stable. CONCLUSION: Increasing bibasilar infiltrates. Free air under right hemidiaphragm. Dudley Akbar MD on June 16, 2016 at 5:17 Board Certified Radiologist. This report was verified electronically.
--- NOTE | 2016-06-16 05:47 | MB ---
cc: TYESHA GOMEZ MD DATE OF CONSULTATION 06/15/2016 REASON FOR CONSULTATION Bleeding at PEG site. HISTORY OF PRESENT ILLNESS The patient is 60-year-old male with multiple medical history and problems who presented on May 28 with bradycardia, PEA, arrest. The patient had a history of hemodialysis, reported a nonproductive cough and fevers, chills, chest pain. The patient had right lower lobe consolidation as well. When the patient underwent the PEA arrest he had CPR with ROSC. He was intubated for airway protection and was admitted to the ICU. He has been slowly to progress for several days and was in need of tracheostomy and a PEG tube which he underwent surgery for several days ago. Surgery was consulted due to continuous bleed from the PEG tube site. Multiple attempts at hemostasis was done with occlusive dressing and hemostatic agents without success. Therefore, again Surgery consulted. The patient's is noted to have anemia of blood, previous hemoglobin 6.6, some response with blood product transfusions to 7.3. History was unobtainable per patient, because the patient was trach, with sedation and nonverbal. History obtained through the previous medical record and discussing with staff. On my exam the patient is responsive to minimal commands. He has a tracheostomy in place with dressings with saturation and PEG appears to have continuous oozing. He has been resuscitated with FFP, platelets, DDAVP and PRBCs. PAST MEDICAL HISTORY: Per notes - 1. Hypertension. 2. Diabetes. 3. Cocaine abuse. 4. Tobacco abuse. 5. Hepatitis C. 6. Cardiomyopathy. 7. End-stage renal disease. 8. Hyperlipidemia. PAST SURGICAL HISTORY 1. Scrotal surgery. 2. ORIF finger. 3. Left upper extremity fistula. MEDICATIONS See EMR. SOCIAL HISTORY Per chart, history of smoking. No ETOH. Cocaine abuse. FAMILY HISTORY Mother and father of end-stage renal disease. ALLERGIES IBUPROFEN. SULFA. REVIEW OF SYSTEMS General: Unobtainable. HEENT: Unobtainable. Neck: Unobtainable. Chest: Unobtainable. Respirations: Unobtainable. Abdomen: Unobtainable. Hematologic: Anemia of blood loss. : Unobtainable. Endocrine: Unobtainable. Psych: Unobtainable. Neurologic: Unobtainable. PHYSICAL EXAMINATION General: No acute distress. Vital Signs: Temperature 97.4, respirations 13, pulse 74, blood pressure 124/62, 40% FIO2. HEENT: Pupils equal. Moist mucous membranes. Neck: Tracheostomy and midline dressings in place. Stain with saturation of dressing. Lungs: Bilateral expansion. Rhonchi. Heart: S1, S2. Regular rhythm. Abdomen: PEG tube in place. Nondistended, soft. Positive bleeding from PEG tube site. Extremities: Warm, perfused. Psych: Unable to obtain. Neurologic Exam: Unable to obtain due to sedation. Integument: Bleeding from skin. Endocrine: Negative. LABORATORY AND DIAGNOSTIC DATA WBC 6, hemoglobin 7.3, hematocrit 21.1, platelets 150. Sodium 138, potassium 3.6, chloride 97, BUN 34, creatinine 4.1, calcium 8.9. INR 1, PT 11.1, PTT 30.3. CHEST X-RAY Read by myself. Tracheostomy. Stable chest. ASSESSMENT A 60-year-old male with multiple medical issues, cocaine abuse, recent cardiac arrest who developed bleeding from PEG tube site. PLAN After full assessment the patient above-named issues including anemia of acute blood loss with bleeding from PEG tube site. At this point dressings were removed, clot was evacuated, skin noted to be continuous bright red blood. A 2-0 silk suture was placed in [id number] fashion for suture ligation of the bleed. Hemostat agents placed including Surgicel, dressings placed and tape placed. Bleeding appeared to stabilize. Would recommend continuous resuscitation of blood products, continue to recheck hemoglobins as needed, correct with blood products as needed. Keep the patient n.p.o. IV fluids and we will continue to follow and watch for ongoing bleeding at this time. There does not appear to be any evidence of further bleeding. MD ANNABEL Neal/AIDEN /11:34 PM /5:10 AM
[2016-06-16] MEDS: HEPARIN SODIUM - SQ 10,000 UNITS/ML VIAL SQ SCH (06:00)
[2016-06-16 06:27] LABS: MEAN CELL VOLUME 87.2 FL (80.0-100.0); MEAN CORPUSCULAR HEMOGLOBIN 29.9 PG (27.0-34.0); MEAN CORPUSCULAR HGB CONC 34.3 % (32.0-36.0); PLATELET COUNT 135 TH/MM3 (150-450); RED BLOOD COUNT 2.23 MIL/MM3 (4.50-5.90); RED CELL DISTRIBUTION WIDTH 15.1 % (11.6-17.2); REVIEW FLAG FINAL; WHITE BLOOD COUNT 6.5 TH/MM3 (4.0-11.0)
[2016-06-16 06:29] LABS: HEMATOCRIT 19.5 % (39.0-51.0)
[2016-06-16] MEDS: METOPROLOL TARTRATE 25 MG TAB PO/NG SCH ×4 (06:41→23:37)
[2016-06-16 06:58] LABS: BICARBONATE 30.2 MEQ/L (21.0-32.0); POTASSIUM 3.4 MEQ/L (3.5-5.1)
[2016-06-16] MEDS ORDERED: SODIUM CHLOR 0.9% IV ONE (08:30)
[2016-06-16] MEDS ORDERED: AMINOCAPROIC ACID IV ONE (08:30)
[2016-06-16] MEDS ORDERED: SODIUM CHLOR 0.9% 250 ML INJ 250 ML IV ONE (08:30)
[2016-06-16] MEDS: PANTOPRAZOLE SODIUM 40 MG VIAL IV SCH (08:52)
[2016-06-16] MEDS: CHLORHEXIDINE 0.12% (ORAL KIT) 15 ML CUP MT SCH ×2 (08:52→20:20)
[2016-06-16] MEDS: SODIUM CHLORIDE 0.9% FLUSH 5 ML FLUSH IV FLUSH SCH ×2 (08:53→20:19)
[2016-06-16] MEDS: ASPIRIN EC 81 MG TABEC PO SCH (08:53)
[2016-06-16] MEDS: CALCIUM ACETATE 667 MG CAP NG SCH ×3 (08:53→17:14)
[2016-06-16] MEDS: cloNIDine HCL 0.1 MG TAB PO SCH ×3 (08:53→17:14)
[2016-06-16] MEDS: hydrALAZINE HCL 25 MG TAB PO SCH ×3 (08:53→17:14)
[2016-06-16] MEDS: DOCUSATE SODIUM 100 MG CAP PO SCH ×2 (08:53→20:19)
--- NOTE | 2016-06-16 09:04 | PD.ONC.PN ---
Subjective Subjective Remarks No more bleeding from PRG site, +oozing around the trach. Hgb trended lower. Objective Data Date Time Temp Pulse Resp B/P Pulse Ox O2 Delivery O2 Flow Rate FiO2 06/16/16 08:58 97.7 70 12 126/60 100 06/16/16 08:46 100 40 06/16/16 06:00 70 06/16/16 04:18 100 40 06/16/16 04:00 70 06/16/16 04:00 97.8 70 13 142/63 100 06/16/16 04:00 40 06/16/16 02:00 69 06/16/16 01:12 100 40 06/16/16 00:00 97.5 66 13 146/67 100 06/16/16 00:00 40 06/16/16 00:00 66 06/15/16 23:15 100 40 06/15/16 22:00 99 40 06/15/16 22:00 76 06/15/16 20:20 100 40 06/15/16 20:00 40 06/15/16 20:00 96.9 75 13 123/58 100 06/15/16 20:00 75 06/15/16 18:00 76 06/15/16 16:08 100 40 06/15/16 16:00 74 06/15/16 16:00 40 06/15/16 16:00 98.6 74 13 126/62 100 06/15/16 14:00 77 06/15/16 13:19 100 06/15/16 12:00 74 06/15/16 12:00 40 06/15/16 12:00 97.4 74 13 124/62 100 06/15/16 11:31 100 40 06/15/16 10:00 69 06/16/16 06/16/16 06/16/16 07:00 15:00 23:00 Intake Total 253 ml Balance 253 ml Result Diagram: 06/16/16 0552 06/16/16 0552 Laboratory Results Laboratory Tests Test 06/15/16 06/15/16 06/16/16 06/16/16 12:07 21:04 05:52 08:47 White Blood Count 7.5 TH/MM3 6.5 TH/MM3 Red Blood Count 2.65 MIL/MM3 2.23 MIL/MM3 Hemoglobin 8.0 GM/DL 7.4 GM/DL 6.7 GM/DL Hematocrit 23.2 % 21.0 % 19.5 % Mean Corpuscular Volume 87.4 FL 87.2 FL Mean Corpuscular Hemoglobin 30.1 PG 29.9 PG Mean Corpuscular Hemoglobin 34.4 % 34.3 % Concent Red Cell Distribution Width 15.0 % 15.1 % Platelet Count 149 TH/MM3 135 TH/MM3 Mean Platelet Volume 9.9 FL 10.0 FL Prothrombin Time 10.8 SEC Prothromb Time International 1.0 RATIO Ratio Activated Partial 30.2 SEC Thromboplast Time Fibrinogen 237 mg/dL Sodium Level 137 MEQ/L Potassium Level 3.4 MEQ/L Chloride Level 98 MEQ/L Carbon Dioxide Level 30.2 MEQ/L Anion Gap 9 MEQ/L Blood Urea Nitrogen 43 MG/DL Creatinine 5.55 MG/DL Estimat Glomerular Filtration 13 ML/MIN Rate Random Glucose 104 MG/DL Calcium Level 8.8 MG/DL Blood Bank Comment Culture Results Microbiology Date/Time Procedure Status Source Growth 06/15/16 15:10 Stool Occult Blood ([facility]) - Final Complete Stool Stool HEMOCCULT POSITIVE Imaging Studies Last 24 hours Impressions Chest X-Ray 06/16/16 0600 Signed Impressions: Service Date/Time: May 04:06 - CONCLUSION: Increasing bibasilar infiltrates. Free air under right hemidiaphragm. Dudley Akbar MD Administered Medications Medications (Trade) Dose Ordered Sig/Crispin Route PRN Reason Start Time Stop Time Status Last Admin Dose Admin Chlorhexidine Gluconate (Peridex 0.12% Liq) 15 ml BID@08,20 MT 05/29/16 08:00 06/16/16 08:52 IV Flush (NS Flush) 2 ml UNSCH PRN IV FLUSH FLUSH AFTER USING IV ACCESS 05/28/16 20:45 05/29/16 08:46 IV Flush (NS Flush) 2 ml BID IV FLUSH 05/28/16 21:00 06/16/16 08:53 Fentanyl Citrate (fentaNYL INJ) 50 mcg Q1H PRN IV PUSH Pain scale 6-10 &/or sedation 05/28/16 20:45 06/14/16 18:03 Pantoprazole Sodium (Protonix Inj) 40 mg DAILY IV 05/29/16 09:00 06/16/16 08:52 Docusate Sodium (Colace) 100 mg BID PO 05/28/16 21:00 06/15/16 23:07 Heparin Sodium (Porcine) (Heparin Inj) 5,000 units Q8H SQ 05/28/16 22:00 06/13/16 06:13 Miscellaneous Information 1 Q361D XX 05/28/16 20:45 05/29/16 08:46 Chlorhexidine Gluconate Taper DAILY@04 TOP 05/29/16 04:00 05/25/17 03:59 06/16/16 03:01 Propofol 100 ml @ 0 mls/hr TITRATE IV 05/28/16 20:45 06/16/16 00:44 Sodium Chloride 1,000 ml @ 0 mls/hr Q0M PRN IV For Prime & Rinse Back 05/28/16 20:53 06/14/16 11:12 Sodium Chloride 1,000 ml @ 200 mls/hr Q5H PRN IV WITH DIALYSIS 05/28/16 20:53 06/02/16 09:53 Sodium Chloride (NS 1000 ml Inj) 1,000 ml @ 0 mls/hr Q0M PRN IV WITH DIALYSIS 05/28/16 20:53 06/13/16 12:26 Albumin Human (Albumin 25% Inj) 25 gm UNSCH PRN IV WITH DIALYSIS 05/28/16 21:00 06/14/16 11:12 Heparin Sodium (Porcine) (Heparin Inj) UNSCH PRN .XX WITH DIALYSIS 05/28/16 21:00 05/30/16 13:08 Gelatin (Gelfoam 12 Mm/7 Mm Top) 1 foam UNSCH PRN TOP SEE LABEL COMMENTS 05/28/16 21:00 06/14/16 11:13 Aspirin (Ecotrin Ec) 81 mg DAILY PO 05/29/16 09:00 06/13/16 08:02 Hydralazine HCl (Apresoline) 25 mg TID PO 05/29/16 09:00 06/16/16 08:53 Clonidine (Catapres) 0.1 mg TID PO 05/29/16 09:00 06/16/16 08:53 Lorazepam (Ativan Inj) 2 mg Q4H PRN IV PUSH agitation 05/29/16 18:00 06/05/16 17:51 Metoprolol Tartrate (Lopressor) 25 mg Q6HR PO/NG 05/31/16 12:00 06/16/16 06:41 Calcium Acetate 667 mg 667 mg TID NG 05/31/16 13:00 06/16/16 08:53 Fentanyl Citrate 250 ml @ 0 mls/hr TITRATE IV 06/08/16 10:00 06/08/16 10:29 Sodium Chloride 154 meq/Dextrose 1,038.5 ml @ 10 mls/hr Q24H IV 06/13/16 11:45 06/15/16 14:06 Dexmedetomidine HCl/Sodium Chloride (Precedex Inj/NS 250 ml Inj) 250 ml @ 0 mls/hr TITRATE IV 06/15/16 22:00 06/16/16 02:53 Objective Remarks GENERAL: Sedated on vent SKIN: Warm and dry. Oozing around the trach composite layup worker: Normocephalic. EYES: No scleral icterus. No injection or drainage. NECK: Tracheostomy LYMPHATIC: No adenopathy. CARDIOVASCULAR: Regular rate and rhythm without murmurs. RESPIRATORY: Breath sounds equal bilaterally. On Vent GASTROINTESTINAL: Abdomen soft, non-tender, nondistended. PEG site no more bleeding EXTREMITIES: No cyanosis, or edema. MUSCULOSKELETAL: Adequate muscle tone. NEUROLOGICAL: Sedated Assessment/Plan Assessment 1. Bleeding around the PEG tube site and tracheostomy site. His INR is normal. His PTT is only slightly elevated. I think that he likely has bleeding due to platelet dysfunction from end-stage renal disease. He had received one unit of platelets and one unit of fresh frozen plasma. He was given 16 mcg of DDAVP x 2days. He also received vitamin-K 5 mg. He had Amicar x 1 06/15. Suture was placed on PEG and bleeding had stop but still oozing around the trach. No obvious DIC noted. ASA and heparin was stop. 2. Respiratory failure. 3. Encephalopathy. 4. End-stage renal disease on dialysis. Plan PLAN: 1. Transfuse platelet 1 u and give another dose of Amicar. 2. Continue to transfuse PRBC prn. Sav Kevin MD Jun 16, 2016 09:04
--- NOTE | 2016-06-16 09:57 | HHI.GIFU ---
Subjective Remarks Resting in bed. Per nurse, propofol has been off x 30 minutes. Pt opens eyes when spoken to and does respond. He is not having any obvious significant abdominal discomfort. He has not had any bleeding from peg tube site. (Tatiana Sweeney) Objective Vitals I&O Vital Signs Date Time Temp Pulse Resp B/P Pulse Ox O2 Delivery O2 Flow Rate FiO2 06/16/16 08:58 97.7 70 12 126/60 100 06/16/16 08:46 100 40 06/16/16 08:00 71 06/16/16 08:00 40 06/16/16 08:00 96.7 71 12 119/57 100 06/16/16 06:00 70 06/16/16 04:18 100 40 06/16/16 04:00 70 06/16/16 04:00 97.8 70 13 142/63 100 06/16/16 04:00 40 06/16/16 02:00 69 06/16/16 01:12 100 40 06/16/16 00:00 97.5 66 13 146/67 100 06/16/16 00:00 40 06/16/16 00:00 66 06/15/16 23:15 100 40 06/15/16 22:00 99 40 06/15/16 22:00 76 06/15/16 20:20 100 40 06/15/16 20:00 40 06/15/16 20:00 96.9 75 13 123/58 100 06/15/16 20:00 75 06/15/16 18:00 76 06/15/16 16:08 100 40 06/15/16 16:00 74 06/15/16 16:00 40 06/15/16 16:00 98.6 74 13 126/62 100 06/15/16 14:00 77 06/15/16 13:19 100 06/15/16 12:00 74 06/15/16 12:00 40 06/15/16 12:00 97.4 74 13 124/62 100 06/15/16 11:31 100 40 06/15/16 10:00 69 I/O 06/15/16 06/15/16 06/15/16 06/16/16 06/16/16 06/16/16 07:00 15:00 23:00 07:00 15:00 23:00 Intake Total 1051 ml 1768 ml 253 ml Output Total 0 ml 175 ml Balance 1051 ml 1593 ml 253 ml IV Total 218 ml 1428 ml 253 ml Tube Feeding 0 ml Packed Cells 250 ml 250 ml FFP 320 ml Platelets 263 ml Other 90 ml Output Urine Total 0 ml 175 ml # Bowel Movements 1 2 Laboratory Laboratory Tests Test 06/15/16 06/15/16 06/16/16 06/16/16 12:07 21:04 05:52 08:47 White Blood Count 7.5 6.5 Red Blood Count 2.65 2.23 Hemoglobin 8.0 7.4 6.7 Hematocrit 23.2 21.0 19.5 Mean Corpuscular Volume 87.4 87.2 Mean Corpuscular Hemoglobin 30.1 29.9 Mean Corpuscular Hemoglobin 34.4 34.3 Concent Red Cell Distribution Width 15.0 15.1 Platelet Count 149 135 Mean Platelet Volume 9.9 10.0 Prothrombin Time 10.8 Prothromb Time International 1.0 Ratio Activated Partial 30.2 Thromboplast Time Fibrinogen 237 Sodium Level 137 Potassium Level 3.4 Chloride Level 98 Carbon Dioxide Level 30.2 Anion Gap 9 Blood Urea Nitrogen 43 Creatinine 5.55 Estimat Glomerular Filtration 13 Rate Random Glucose 104 Calcium Level 8.8 Blood Bank Comment Date/Time Procedure Status Source Growth 06/15/16 15:10 Stool Occult Blood ([facility]) - Final Complete Stool Stool HEMOCCULT POSITIVE Imaging Last Impressions Chest X-Ray 06/16/16 0600 Signed Impressions: Service Date/Time: May 04:06 - CONCLUSION: Increasing bibasilar infiltrates. Free air under right hemidiaphragm. Dudley Akbar MD Abdomen/Pelvis CT 06/15/16 0000 Signed Impressions: Service Date/Time: Wednesday, June 15, 2016 13:16 - CONCLUSION: Significant free intraperitoneal air. Consolidative changes in both bases with small bilateral pleural effusions. Mikhail Abrams MD FACR Brain MRI 06/10/16 0000 Signed Impressions: Service Date/Time: Friday, June 10, 2016 20:14 - CONCLUSION: 1. Mild chronic-appearing ischemic changes in the periventricular white matter slightly progressed from 2014. No recent infarct, mass effect or midline shift. No hydrocephalus. Lakhwinder Pringle MD Liver Ultrasound 06/01/16 0000 Signed Impressions: Service Date/Time: Wednesday, June 01, 2016 15:38 - CONCLUSION: 1. Bilateral pleural effusions. 2. Thick-walled gallbladder with minimal pericholecystic fluid. If there is clinical concern for acute cholecystitis a hepatobiliary scan may be helpful to confirm cystic duct obstruction. 3. Minimal ascites. 4. Echogenic atrophic right kidney. 5. Mild nonspecific prominence of the main pancreatic duct. Enzo Price MD Head CT 05/29/16 0000 Signed Impressions: Service Date/Time: Sunday, May 29, 2016 03:03 - CONCLUSION: Age- appropriate atrophy, stable from prior in September 2015. No acute findings. Earnest Torre MD Lower Extremity Ultrasound 05/28/16 0000 Signed Impressions: Service Date/Time: Saturday, May 28, 2016 22:27 - CONCLUSION: Negative for deep venous thrombosis bilateral lower extremity. Earnest Torre MD Physical Exam HEENT: Normocephalic; atraumatic; no jaundice. CHEST: CTA. Trach with moderate amount of oozing blood from site. CARDIAC: RRR. ABDOMEN: Soft, nondistended, nontender; no hepatosplenomegaly; bowel sounds are present in all four quadrants. PEG tube site without any bleeding. Abdomen is soft and no significant tenderness with propofol off for 30 minutes. EXTREMITIES: Generalized edema. SKIN: Normal; no rash; no jaundice. LOGISTICS OPERATIONS DIRECTOR: Lethargic, sedation off (Tatiana Sweeney) Assessment and Plan Plan ASSESSMENT: - Bleeding at PEG tube site. S/P EGD with peg (06/13/16)---> duodenitis second portion, gastritis antrum, retroflexed views revealed a hiatal hernia. Pt had significant oozing from site after procedure, s/p gelfoam and pressure drsg. This has continued to ooze overnight. Took down drsg- gelfoam in place, still oozing small to moderate amount of blood continuously. HH 8.0/23.2. S/P 3 units PRBC. S /P Silver nitrate, injection of epinephrine on 06/14- oozing from peg tube stopped at time, but apparently started oozing again. Had repeat EGD (06/14/16) for control of bleeding. S/P suture and surgicel by GS (06/16/16)---->no further bleeding from the PEG tube site. CT scan with free air. NPO. - Abnormal CT with free air. CT abdominal pelvis with significant free intraperitoneal air, consolidative changes in both bases with small bilateral pleural effusions. WBC 14.0. He does not appear to have an acute abdomen. This is most likely escaped air from peg tube site and repeat EGD. D/W Dr. Tabares. KUB with gastrografin ordered to confirm placement of peg tube today. This is pending. - Dysphagia/FEN- S/P EGD with peg tube placement (06/13/16). - Anemia. 6.7/19.5. Blood ordered by hematology - Respiratory failure/ healthcare associated pneumonia - S/P Tracheostomy. Pt with some oozing related to this. - Hepatitis C - History of cocaine abuse - ESRD- HD Plan: - NPO - NGT to [facility] - KUB with gastrograin - S/P Suture, Surgicel by GS at PEG tube site. - S/P Silver nitrate applications - S/P Epinephrine injection at site - S/P Gelfoam application - Monitor HH - Transfuse as necessary - Supportive care - Further recommendations to follow based on results of above - Patient seen and examined by Dr. coleman and myself and this note is written on her behalf. (Tatiana Sweeney) Physician Comments seen, examined agree with above Gastrografin study negative mild discharge around peg tube-local antibiotics ok to start tf (Prachi Coleman MD) Tatiana Sweeney Jun 16, 2016 09:57 Prachi Colmean MD Jun 16, 2016 18:21
--- NOTE | 2016-06-16 10:26 | RADRPT ---
EXAM DATE/TIME: 06/16/2016 09:12 [facility] COMPARISON: ABDOMEN KUB ONLY, April 13, 2013, 23:45. INDICATIONS : Gastric tube placement w/ gastrografin. MEDICAL HISTORY : Renal insufficiency. Stroke. Myocardial infarction. SURGICAL HISTORY : None. ENCOUNTER: Initial ACUITY: 1 day PAIN SCORE: Non-responsive. LOCATION: Left upper quadrant abdomen FINDINGS: Supine view the abdomen demonstrates tubing projecting over the stomach with contrast material outlin ing normal gastric folds. The bowel gas pattern is normal. No evidence of contrast extravasation. CONCLUSION: Apparent appropriate placement of gastric tube placement. Amaris Rosenberg MD on June 16, 2016 at 10:24 Board Certified Radiologist. This report was verified electronically.
--- NOTE | 2016-06-16 10:33 | HHI.CCPN ---
Subjective Remarks/Hospital Course 05/28: 60 yo AAM with PMH of HTN, stroke without residual deficit, DM, nonischemic cardiomyopathy (EF 40% and stage I diastolic dysfunction) Cocaine abuse, Hepatitis C, ESRD on HD T/R/Sat who presents to [facility] for 2 day history of SOB. He reported symptoms started 1/ after he received hemodialysis. He reported a nonproductive cough without fevers, chills, or chest pain. His workup revealed a normal white count and CXR that demonstrated RLL consolidation. His potassium was 6.8. While preparations were being made to administer medications to address his hyperkalemia he developed bradycardia and PEA arrest. He underwent CPR and received epinephrine and 1 amp of bicarbonate. It was return of spontaneous circulation after 8 minutes. He was intubated by the emergency department physician Dr. Clnacy. Dr. Francisco with nephrology was consulted and he made arrangements for urgent dialysis which is taking place currently. Target removal 3.8 L per HD RN. Postintubation CXR demonstrates R base infiltrate but also appears there is right pleural effusion. Influenza screen negative. Receive Zosyn and azithromycin in the emergency department. 05/29: Sedated, arousable, not following commands, orally intubated on mechanical ventilation. Gets agitated on lightening sedation and has a strong gag reflex. 05/30: Sedated, arousable, not following commands. Remains orally intubated on mechanical ventilation. Failed C Pap trial today. Dialyzed earlier. 05/31: Sedated/encephalopathic on lightening sedation, not following commands. Remains orally intubated on mechanical ventilation. Failed C Pap trials yesterday. 2-D echo just being completed today. 06/01 No events overnight. On Precedex drip unresponsive and doesn't follow commands. Afebrile. 06/02 Patient s/p HD yesterday with removal 1.5L , on Precedex infusion for sedation. 06/03 No events overnight. Sedated with fentanyl and intubated. s/p HD yesterday with removal 1.5L. 06/04 Patient remains sedated and intubated. Afebrile. Did not tolerate CPAP trials yesterday as he became tachypneic. 06/05 Patient s/p HD yesterday with removal 2L. Sedated with Fentanyl and intubated. Afebrile. Patient gets very agitated and restless when sedation is weaned off. 06/06 Patient is sedated with Fentanyl placed on Diprivan as well last night. Gets agitated and tachypneic on CPAP trials. s/p HD yesterday with removal 2L. 06/07: Remains sedated/encephalopathic, orally intubated on mechanical ventilation. Failed C Pap trials yesterday. 06/08: Remains sedated/encephalopathic, orally intubated on mechanical ventilation. Gets agitated on lightening sedation however not following commands. We'll attempt Precedex and titrate down on fentanyl/propofol 06/09: Remains sedated/encephalopathic, orally intubated on mechanical ventilation. On Precedex/propofol/fentanyl. Will attempt transitioning to Precedex alone to control agitation for C Pap trials. 06/10: Still requiring Precedex/propofol and fentanyl for CPAP trials. Patient continues to be extremely agitated and currently unable to extubate. Not following commands. Positive BM. Tolerating tube feeds. Afebrile. 06/11: On Precedex drip currently. -3 L of hemodialysis. Moving all 4 extremities but not following commands. 06/12: no changes. plan for PEG and Trach tomorrow. 06/13: plan for trach today. discussed with health care proxy and she still has concerns about possible trach. will touch base with palliative care. have talked with Dr. Lee from trauma, and plan for trach at some point depending on his schedule and per family discussions. 06/14: plan for trach today. significant bleeding from around PEG site. GI aware. 2 units prbc ordered. coags ordered. 0.3mcg/kg DDAVP ordered. 06/15: trach yesterday by Dr. Lee. trach site and PEG site with ongoing oozing despite FFP, platelets, DDAVP. I talked with Dr. Francisco and he is ok with iv contrast for imaging if needed, given that this is ESRD with no hope of renal recovery. Subjective 06/16: Continues to oozing from tracheostomy site. Packed with Surgicel but continues to ooze. No oozing from PEG tube site. Currently nothing by mouth. 2 bowel movements. Awake and does follow commands Objective Vital Signs Date Time Temp Pulse Resp B/P Pulse Ox O2 Delivery O2 Flow Rate FiO2 06/16/16 08:58 97.7 70 12 126/60 100 06/16/16 08:46 40 Intake and Output 06/15/16 06/15/16 06/16/16 08:00 16:00 00:00 Intake Total 1051 ml 1768 ml Output Total 0 ml 175 ml Balance 1051 ml 1593 ml Result Diagram: 06/16/16 0552 06/16/16 0552 Other Results Microbiology Date/Time Procedure Status Source Growth 06/15/16 15:10 Stool Occult Blood (FLORES) - Final Complete Stool Stool HEMOCCULT POSITIVE Imaging Last Impressions Chest X-Ray 06/16/16 0600 Signed Impressions: Service Date/Time: May 04:06 - CONCLUSION: Increasing bibasilar infiltrates. Free air under right hemidiaphragm. Dudley Akbar MD Abdomen/Pelvis CT 06/15/16 0000 Signed Impressions: Service Date/Time: Wednesday, June 15, 2016 13:16 - CONCLUSION: Significant free intraperitoneal air. Consolidative changes in both bases with small bilateral pleural effusions. Mikhail Abrams MD FACR Brain MRI 06/10/16 0000 Signed Impressions: Service Date/Time: Friday, June 10, 2016 20:14 - CONCLUSION: 1. Mild chronic-appearing ischemic changes in the periventricular white matter slightly progressed from 2014. No recent infarct, mass effect or midline shift. No hydrocephalus. Lakhwinder Pringle MD Liver Ultrasound 06/01/16 0000 Signed Impressions: Service Date/Time: Wednesday, June 01, 2016 15:38 - CONCLUSION: 1. Bilateral pleural effusions. 2. Thick-walled gallbladder with minimal pericholecystic fluid. If there is clinical concern for acute cholecystitis a hepatobiliary scan may be helpful to confirm cystic duct obstruction. 3. Minimal ascites. 4. Echogenic atrophic right kidney. 5. Mild nonspecific prominence of the main pancreatic duct. Enzo rPice MD Head CT 05/29/16 0000 Signed Impressions: Service Date/Time: Sunday, May 29, 2016 03:03 - CONCLUSION: Age- appropriate atrophy, stable from prior in September 2015. No acute findings. Earnest Torre MD Lower Extremity Ultrasound 05/28/16 0000 Signed Impressions: Service Date/Time: Saturday, May 28, 2016 22:27 - CONCLUSION: Negative for deep venous thrombosis bilateral lower extremity. Earnest Torre MD Objective Remarks GENERAL: 60 yo AA male, critically ill, trached and pegged SKIN: Warm and dry. No rash HEAD: Normocephalic. EYES: Pupils minimally reactive at 2 mm bilaterally. No scleral icterus. No injection or drainage. NECK: Supple, trachea midline. No JVD. trach in place with dressings that are saturated with blood around the trach. CARDIOVASCULAR: Regular rate and rhythm with S1, S2. No S4. II/ systolic murmur at the apex RESPIRATORY: Breath sounds equal bilaterally. Few crackles appreciate the bases. No accessory muscle use. GASTROINTESTINAL: Abdomen soft, non-tender, nondistended. Clean dry and intact PEG site. MUSCULOSKELETAL: No disc and peripheral edema. Palpable thrill left AV fistula. Neuro: Currently arousable and will nod head appropriately to simple questions. Moves all 4 extremities equally and spontaneous. Urinary Catheter: No Assessment to: Continue Vascular Central Line Catheter: No Assessment to: Continue A/P Assessment and Plan NEURO: Acute encephalopathy, post cardiac arrest. History of stroke without residual deficit (per friend's report) History of cocaine abuse Posttraumatic stress disorder On as needed fentanyl for pain management. Precedex is currently off Neurologically much improved EEG 06/12 revealed mild sleep. No seizure activity noted. MRI brain revealed chronic vascular changes. No acute findings Neuro is following-Dr. Wilks peripherally RESP: Acute respiratory failure Healthcare associated pneumonia Intubated in ED 05/28/16 following cardiac arrest ACV ventilation 12/500/5/40 Duoneb q6 hours. Albuterol q2 prn. Ventilator Bundle. Daily SBT as leana. -- s/p trach 06/14. Tracheotomy site packed with Surgicel. Dr. Lee notified. Will look today CV: Cardiac arrest, secondary to hyperkalemia Nonischemic cardiomyopathy secondary to HTN, cocaine abuse Hypertension Elevated Troponin: ? NSTEMI Monitor HR and BP keep MAP>65mmHg Continue home meds: Hydralazine 25 tid. Clonidine 0.1 tid., Lopressor 25mg Q6 ( 100 mg twice a day at home) ASA 81 mg daily will be continued. Echo 05/31: EF 25-30%, no RWMA. Mild MR/TR. MEGAN 36 mmHg cardiac cath 12/09/2012 - EF 40%, normal coronaries. Elevated troponin, cardiac arrest. Per cardiology-no intervention planned. GI: Hepatitis C Elevated LFT Free air - likely secondary to EGD/tube feeding insufflation Daily holding TF-Nepro@40ml/hr Monitor LFT's: Trending down US liver: Bilateral pleural effusions. Thick-walled gallbladder with minimal pericholecystic fluid. Minimal ascites. Echogenic atrophic right kidney. Mild nonspecific prominence of the main pancreatic duct. Status post Gastrografin/PEG tubing cracks location. Chest post suture by Dr. Zander Tabares. No actively from PEG site currently Protonix for GI prophylaxis Colace for bowel regimen FEN/RENAL: ESRD Acute severe hyperkalemia - resolved Hyperphosphatemia Intermittent hemodialysis per nephrology (Dr. Francisco) Emergent HD 05/28 due to potassium of 6.8 with bradycardia and cardiac arrest. plan for IHD today. Monitor renal function, I/O's, avoid nephrotoxins. s/p HD today Continue PhosLo 667 mg 3 times a day ID: Acute healthcare associated pneumonia Received Zosyn and azithromycin in the emergency department 05/28. s/p Zosyn 2.25 g IV every 8 hours 05/29 - 06/12. Azithro x 10 days.05/28 nasal washing negative for Influenza. continue to monitor Pertinent cultures 05/28 - blood cultures 2 - 1 out of 2 corynebacterium not Jk 05/29 Sputum- beta strep not A HEME: Anemia of acute blood loss from PEG tube Thrombocytopenia 1 unit prbc, 1 ffp, 1 plt. DDAVP given 06/15 Given 1 unit PRBC today Coags within normal limits Received 16 mg DDAVP and 5000 mg amicar Monitor CBC Dr. Kevin/hematology following. Von Willebrand factor pending Serial hemoglobins every 8 hours ENDO: Diabetes mellitus Medium dose Insulin sliding scale with bedside glucose every 6 hours PROPH: hold pharmacologic DVT prophylaxis in the setting of active bleeding. Protonix 40 mg IV daily for stress ulcer prophylaxis. Doppler US LE negative for DVT ACCESS: Peripheral IV providing adequate access at this time. Left AV fistula accessed for hemodialysis Full code Palliative care is following to assist with deciding goals of therapy. Critical Care: The total critical care time was 38 minutes. Time to perform other separately billable procedures was not included in the critical care time. Chevy Gonzales MD Jun 16, 2016 10:33
[2016-06-16] MEDS: SODIUM CHLORIDE 23.4% INJ 154 MEQ in DEXTROSE 10% INJ 1,000 ML IV SCH (11:35)
[2016-06-16] MEDS: SODIUM CHLOR 0.9% 1000 ML INJ 1,000 ML IV SCH (11:35)
--- NOTE | 2016-06-16 11:35 | HHI.NPPN ---
Subjective General Problems: Anemia Renal Failure: Chronic, End Stage Renal Disease Interval History PEG bleeding stopped after sutures were placed, still bleeding from trach. Due for dialysis today. (Temitope Haley) Review of Systems General General Remarks unable to evaluate due to mental status (Temitope Haley) Objective Data Data 06/15/16 06/16/16 19:00 07:00 Intake Total 1368 ml 653 ml Output Total 175 ml Balance 1193 ml 653 ml IV Total 1028 ml 653 ml Tube Feeding 0 ml Packed Cells 250 ml Other 90 ml Output Urine Total 175 ml # Bowel Movements 1 1 Vital Signs Date Time Temp Pulse Resp B/P Pulse Ox O2 Delivery O2 Flow Rate FiO2 06/16/16 10:00 77 06/16/16 08:58 97.7 70 12 126/60 100 06/16/16 08:46 100 40 06/16/16 08:00 71 06/16/16 08:00 40 06/16/16 08:00 96.7 71 12 119/57 100 06/16/16 06:00 70 06/16/16 04:18 100 40 06/16/16 04:00 70 06/16/16 04:00 97.8 70 13 142/63 100 06/16/16 04:00 40 06/16/16 02:00 69 06/16/16 01:12 100 40 06/16/16 00:00 97.5 66 13 146/67 100 06/16/16 00:00 40 06/16/16 00:00 66 06/15/16 23:15 100 40 06/15/16 22:00 99 40 06/15/16 22:00 76 06/15/16 20:20 100 40 06/15/16 20:00 40 06/15/16 20:00 96.9 75 13 123/58 100 06/15/16 20:00 75 06/15/16 18:00 76 06/15/16 16:08 100 40 06/15/16 16:00 74 06/15/16 16:00 40 06/15/16 16:00 98.6 74 13 126/62 100 06/15/16 14:00 77 06/15/16 13:19 100 06/15/16 12:00 74 06/15/16 12:00 40 06/15/16 12:00 97.4 74 13 124/62 100 (Temitope Haley) -: 06/16/16 0552 06/16/16 0552 Microbiology 06/15/16 Stool Occult Blood (FLORES) - Final, Complete HEMOCCULT POSITIVE Imaging Last 72 hours Impressions Chest X-Ray 06/16/16 0600 Signed Impressions: Service Date/Time: May 04:06 - CONCLUSION: Increasing bibasilar infiltrates. Free air under right hemidiaphragm. Dudley Akbar MD Abdomen X-Ray 06/16/16 0000 Signed Impressions: Service Date/Time: May 09:12 - CONCLUSION: Apparent appropriate placement of gastric tube placement. Amaris Rosenberg MD Abdomen/Pelvis CT 06/15/16 0000 Signed Impressions: Service Date/Time: Wednesday, June 15, 2016 13:16 - CONCLUSION: Significant free intraperitoneal air. Consolidative changes in both bases with small bilateral pleural effusions. Mikhail Abrams MD FACR Chest X-Ray 06/14/16 0000 Signed Impressions: Service Date/Time: Tuesday, June 14, 2016 15:40 - CONCLUSION: Placement of tracheostomy without complication. Otherwise stable chest Darin Ye MD Tubes & Lines Comment trach, PEG Drip Comment Fentanyl (Temitope Haley) Physical Exam General Appearance: Well Developed, Well Nourished, Comfortable (Temitope Haley) Eyes Eye Exam: Pupils Equal, Pupils Reactive (Temitope Haley BRasheed BRAY) Neck Neck Exam: Neck Supple Neck Remarks trach, bleeding around stoma (Temitope Haley BRasheed THROUGH OPERATOR) Pulmonary Resp Exam: Breath Sounds Equal, Crackles, Decreased Bases, Diminished Breath Sounds (Temitope Haley THROUGH OPERATOR) Cardiology CV Exam: Regular, Normal Sinus Rhythm, Good Perfusion (Temitope Haley) Gastrointestinal/Abdomen GI Exam: Soft, Non-Tender, Bowel Sounds Present, Non-Distended GI Remarks PEG site bleeding (Temitope Haley BRasheed LIMONP) Musculoskeletal MS Exam: Joints Intact, Normal Tone MS Remarks moves all extremities (Temitope Haley THROUGH OPERATOR) Integumentary Skin Exam: Clear, Warm, Dry, Intact (Temitope Haley) Extremeties Extremities Exam: Pedal Pulses Palpable, Trace Edema (Temitope Haley) Neurologic Neuro Exam: Unresponsive, Sedated (Temitope Haley) Assessment/Plan Discussed Condition With: Patient, Relative Assessment Summary: Anemia of CKD, Hypertension, End Stage Renal Disease Electrolyte Assessment: Hypocalcemia Problem List: (1) ESRD on dialysis Plan: Continue dialysis T--Mon, he is due today monitor AVF function intermittent metabolic profile, potassium slightly low, should correct with dialysis BP improved monitor fluid volume status, no IVF required (2) Hypertension Plan: BP has improved He is on metoprolol, hydralazine, clonidine with hold parameters (3) DM (diabetes mellitus) Plan: continue insulin coverage goal to maintain blood glucose between 140 and 180 on D10 at 10 ml/hr as tube feeding has been on hold (4) Hyperkalemia Plan: corrected with extra dialysis treatment on 06/13 monitor for recurrence (5) NSTEMI (non-ST elevated myocardial infarction) Plan: Troponin I elevated post cardiac arrest, chest compressions. he had catheterization in January 2016, normal coronary arteries (6) Elevated LFTs Plan: improved. (7) Cocaine abuse Plan: cessation had been advised. (8) Encephalopathy Plan: vent management, s/p trach placement poor prognosis (9) Anemia Plan: hemoglobin normally stable now with acute blood loss from PEG/trach, receiving 1 PRBC and 1 platelet today (Temitope Haley) Plan patient was seen and examined. Bleeding from PEG tube has stopped, some oozing from tracheostomy site. Discussed with Internet Database Specialist. He has been receiving blood transfusion. Also received desmopressin, and Amicar. Dialysis today. Prognosis is poor. (Chetan Francisco MD) Problem Qualifiers (1) Hypertension: Qualified Code: I10 - Essential hypertension (2) DM (diabetes mellitus): Qualified Code: E11.22 - Type 2 diabetes mellitus with diabetic chronic kidney disease, unspecified CKD stage, unspecified ferry terminal agent insulin use status Temitope Haley Jun 16, 2016 11:35 Chetan Francisco MD Jun 16, 2016 14:42
[2016-06-16] MEDS: SODIUM CHLOR 0.9% 1000 ML INJ 1,000 ML IV PRN ×2 (11:49→11:50)
[2016-06-16] MEDS: GELATIN 12 MM/7 MM FOAM TOP PRN (11:50)
[2016-06-16 12:37] LABS: INDIRECT BILIRUBIN 0.3 MG/DL (0.0-0.8); TOTAL BILIRUBIN ADULT 0.7 MG/DL (0.2-1.0)
[2016-06-16 16:46] LABS: HEMATOCRIT 24.1 % (39.0-51.0); REVIEW FLAG FINAL
--- NOTE | 2016-06-16 19:00 | HHI.PR ---
Subjective Subjective Notes DAILY PROGRESS NOTE FOR SURGICAL ATTENDING, DR. NOLVIA CORDOVA On MV via trach; sedated Objective Vitals/I&O Vital Signs Date Time Temp Pulse Resp B/P Pulse Ox O2 Delivery O2 Flow Rate FiO2 06/16/16 18:00 91 06/16/16 16:44 100 40 06/16/16 16:00 98.5 12 147/70 Labs Laboratory Tests Test 06/15/16 06/16/16 06/16/16 06/16/16 21:04 05:52 08:47 11:41 Hemoglobin 7.4 6.7 Hematocrit 21.0 19.5 White Blood Count 6.5 Red Blood Count 2.23 Mean Corpuscular Volume 87.2 Mean Corpuscular Hemoglobin 29.9 Mean Corpuscular Hemoglobin 34.3 Concent Red Cell Distribution Width 15.1 Platelet Count 135 Mean Platelet Volume 10.0 Sodium Level 137 Potassium Level 3.4 Chloride Level 98 Carbon Dioxide Level 30.2 Anion Gap 9 Blood Urea Nitrogen 43 Creatinine 5.55 Estimat Glomerular Filtration 13 Rate Random Glucose 104 Calcium Level 8.8 Blood Bank Comment Lactic Acid Level 0.6 Total Bilirubin 0.7 Direct Bilirubin 0.4 Indirect Bilirubin 0.3 Aspartate Amino Transf 45 (AST/SGOT) Alanine Aminotransferase 22 (ALT/SGPT) Alkaline Phosphatase 67 Total Creatine Kinase 38 Total Protein 6.1 Albumin 2.8 Test 06/16/16 16:33 Hemoglobin 8.3 Hematocrit 24.1 Date/Time Procedure Status Source Growth 06/15/16 15:10 Stool Occult Blood (FLORES) - Final Complete Stool Stool HEMOCCULT POSITIVE Cardiovascular: Regular Lungs: Clear Abdomen: Other (PEG in place----dry dressing around; no bleeding ) Extremities: No edema A/P Assessment and Plan 60 year old male with multiple medication problems with bleeding from recently placed PEG tube -No bleeding around PEG now -Will sign off; please call if bleeding occurs Narda Bragg Jun 16, 2016 19:00 Nolvia Cordova MD Jun 17, 2016 09:10
[2016-06-16] MEDS: NEOMYCIN/POLYMYXIN/BACITRACIN OINT 15 GM TUBE TOPICAL SCH (20:19)
[2016-06-17] VITALS (18 sets, daily range): BP systolic 130–168; BP diastolic 65–81; PULSE 75–97; RESP 12–23; TEMP 98.5–99.6; O2SAT 100
[2016-06-17] MEDS: DEXMEDETOMIDINE INJ 1,000 MCG in SODIUM CHLOR 0.9% 250 ML INJ 240 ML IV SCH ×2 (02:47→20:46)
[2016-06-17] MEDS: INSULIN NovoLIN REGULAR SUPPLEMENTAL SCALE SQ SCH ×4 (02:48→20:40)
[2016-06-17] MEDS: CHLORHEXIDINE GLUCONATE 2 % 1 PACK (2 CLOTHS) TOP SCH (02:48)
[2016-06-17] MEDS: PROPOFOL 1000 MG/100 ML INJ 100 ML IV SCH ×2 (02:48→17:10)
[2016-06-17] MEDS: METOPROLOL TARTRATE 25 MG TAB PO/NG SCH ×3 (05:37→17:10)
[2016-06-17 05:47] LABS: HEMATOCRIT 22.5 % (39.0-51.0); MEAN CELL VOLUME 86.9 FL (80.0-100.0); MEAN CORPUSCULAR HGB CONC 34.5 % (32.0-36.0); PLATELET COUNT 169 TH/MM3 (150-450); RED BLOOD COUNT 2.59 MIL/MM3 (4.50-5.90); RED CELL DISTRIBUTION WIDTH 15.4 % (11.6-17.2); REVIEW FLAG FINAL; WHITE BLOOD COUNT 10.7 TH/MM3 (4.0-11.0)
[2016-06-17 06:06] LABS: BICARBONATE 30.4 MEQ/L (21.0-32.0); MAGNESIUM 1.8 MG/DL (1.5-2.5); POTASSIUM 3.9 MEQ/L (3.5-5.1)
--- NOTE | 2016-06-17 07:55 | PD.CONS ---
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 Ordered Medications Current Medications Medications (Trade) Dose Ordered Sig/Crispin Route Start Time Stop Time Status Last Admin (Peridex 0.12% Liq) 15 ml BID@08,20 MT 05/29/16 08:00 06/16/16 20:20 (NS Flush) 2 ml UNSCH PRN IV FLUSH 05/28/16 20:45 05/29/16 08:46 (NS Flush) 2 ml BID IV FLUSH 05/28/16 21:00 06/16/16 20:19 (fentaNYL INJ) 50 mcg Q1H PRN IV PUSH 05/28/16 20:45 06/14/16 18:03 (Protonix Inj) 40 mg DAILY IV 05/29/16 09:00 06/16/16 08:52 (Zofran Inj) 4 mg Q6H PRN IV 05/28/16 20:45 (Heparin Inj) 5,000 units Q8H SQ 05/28/16 22:00 Hold 06/13/16 06:13 Miscellaneous Information 1 Q361D XX 05/28/16 20:45 05/29/16 08:46 (Chlorhexidine 2% Cloth) 3 pack Taper DAILY@04 TOP 05/29/16 04:00 05/25/17 03:59 06/17/16 02:48 Chlorhexidine Gluconate 3 pack 3 pack UNSCH PRN TOP 05/28/16 20:45 Propofol 100 ml @ 0 mls/hr TITRATE IV 05/28/16 20:45 06/17/16 02:48 (NS 1000 ml Inj) 1,000 ml @ 0 mls/hr Q0M PRN IV 05/28/16 20:53 06/16/16 11:49 Heparin Sodium (Porcine) 8000 units 8,000 units UNSCH PRN IVF 05/28/16 21:00 Sodium Chloride 1,000 ml @ 200 mls/hr Q5H PRN IV 05/28/16 20:53 06/02/16 09:53 (NS 1000 ml Inj) 1,000 ml @ 0 mls/hr Q0M PRN IV 05/28/16 20:53 06/16/16 11:50 (Mannitol Inj) 12.5 gm UNSCH PRN IV 05/28/16 21:00 (Albumin 25% Inj) 25 gm UNSCH PRN IV 05/28/16 21:00 06/14/16 11:12 (NS Flush) 5 ml UNSCH PRN IVF 05/28/16 21:00 (Heparin Inj) UNSCH PRN .XX 05/28/16 21:00 05/30/16 13:08 (Gentamicin (Dialysis) Inj) 20 mg UNSCH PRN IV 05/28/16 21:00 (Zofran Inj) 4 mg UNSCH PRN IV 05/28/16 21:00 (Tylenol) 650 mg UNSCH PRN PO 05/28/16 21:00 (Benadryl) 25 mg UNSCH PRN PO 05/28/16 21:00 (Nitrostat Sl) 0.4 mg UNSCH PRN SL 05/28/16 21:00 (Catapres) 0.1 mg UNSCH PRN PO 05/28/16 21:00 (Gelfoam 12 Mm/7 Mm Top) 1 foam UNSCH PRN TOP 05/28/16 21:00 06/16/16 11:50 (Ecotrin Ec) 81 mg DAILY PO 05/29/16 09:00 Hold 06/13/16 08:02 (Apresoline) 25 mg TID PO 05/29/16 09:00 06/16/16 17:14 (Catapres) 0.1 mg TID PO 05/29/16 09:00 06/16/16 17:14 (Ativan Inj) 2 mg Q4H PRN IV PUSH 05/29/16 18:00 06/05/16 17:51 (Lopressor) 25 mg Q6HR PO/NG 05/31/16 12:00 06/17/16 05:37 (Phoslo) 667 mg TID NG 05/31/16 13:00 06/16/16 17:14 (D50w (Vial) Inj) 25 ml UNSCH PRN IV PUSH 06/01/16 08:45 (Glucagon Inj) 1 mg UNSCH PRN OTHER 06/01/16 08:45 Insulin Human Regular 1 1 Q6H SQ 06/01/16 09:00 Fentanyl Citrate 250 ml @ 0 mls/hr TITRATE IV 06/08/16 10:00 Hold 06/08/16 10:29 Sodium Chloride 154 meq/Dextrose 1,038.5 ml @ 10 mls/hr Q24H IV 06/13/16 11:45 06/16/16 11:35 Dexmedetomidine HCl 1000 mcg/ Sodium Chloride 250 ml @ 0 mls/hr TITRATE IV 06/15/16 22:00 06/17/16 02:47 (NS 1000 ml Inj) 1,000 ml @ 42 mls/hr [id number] IV 06/16/16 10:30 06/16/16 11:35 (Neosporin Oint) 1 applic Q12HR TOPICAL 06/16/16 21:00 06/16/16 20:19 Physical Exam Vital Signs Vital Signs Date Time Temp Pulse Resp B/P Pulse Ox O2 Delivery O2 Flow Rate FiO2 06/17/16 06:00 86 06/17/16 04:43 100 40 06/17/16 04:00 99.6 91 12 168/81 100 06/17/16 04:00 40 06/17/16 04:00 91 06/17/16 02:00 96 06/17/16 01:18 100 40 06/17/16 00:00 99.6 97 12 138/77 100 06/17/16 00:00 97 06/17/16 00:00 40 06/16/16 22:00 100 06/16/16 21:11 100 40 06/16/16 20:00 98.8 99 12 115/55 100 06/16/16 20:00 40 06/16/16 20:00 99 06/16/16 18:00 91 06/16/16 16:44 100 40 06/16/16 16:00 40 06/16/16 16:00 84 06/16/16 16:00 98.5 84 12 147/70 100 06/16/16 14:00 79 06/16/16 12:06 100 40 06/16/16 12:00 88 06/16/16 12:00 40 06/16/16 12:00 98.3 88 16 141/67 100 06/16/16 11:37 98.3 87 13 138/70 100 06/16/16 10:00 77 06/16/16 08:58 97.7 70 12 126/60 100 06/16/16 08:46 100 40 06/16/16 08:00 71 06/16/16 08:00 40 06/16/16 08:00 96.7 71 12 119/57 100 Laboratory Laboratory Tests Test 06/16/16 06/16/16 06/16/16 06/17/16 08:47 11:41 16:33 04:36 Blood Bank Comment Lactic Acid Level 0.6 Total Bilirubin 0.7 Direct Bilirubin 0.4 Indirect Bilirubin 0.3 Aspartate Amino Transf 45 (AST/SGOT) Alanine Aminotransferase 22 (ALT/SGPT) Alkaline Phosphatase 67 Total Creatine Kinase 38 Total Protein 6.1 Albumin 2.8 Hemoglobin 8.3 7.8 Hematocrit 24.1 22.5 White Blood Count 10.7 Red Blood Count 2.59 Mean Corpuscular Volume 86.9 Mean Corpuscular Hemoglobin 30.0 Mean Corpuscular Hemoglobin 34.5 Concent Red Cell Distribution Width 15.4 Platelet Count 169 Mean Platelet Volume 10.5 Sodium Level 139 Potassium Level 3.9 Chloride Level 98 Carbon Dioxide Level 30.4 Anion Gap 11 Blood Urea Nitrogen 25 Creatinine 4.40 Estimat Glomerular Filtration 17 Rate Random Glucose 105 Calcium Level 8.5 Phosphorus Level 4.0 Magnesium Level 1.8 Date/Time Procedure Status Source Growth 06/15/16 15:10 Stool Occult Blood (FLORES) - Final Complete Stool Stool HEMOCCULT POSITIVE Result Diagram: 06/17/16 0436 06/17/16 0436 Imaging Last 48 hours Impressions Chest X-Ray 06/16/16 0600 Signed Impressions: Service Date/Time: May 04:06 - CONCLUSION: Increasing bibasilar infiltrates. Free air under right hemidiaphragm. Dudley Akbar MD Abdomen X-Ray 06/16/16 0000 Signed Impressions: Service Date/Time: May 09:12 - CONCLUSION: Apparent appropriate placement of gastric tube placement. MD Yemi Daugherty Kathryn B. ARNP Jun 17, 2016 07:54 Date/Time Procedure Status Source Growth 06/15/16 15:10 Stool Occult Blood (FLORES) - Final Complete Stool Stool HEMOCCULT POSITIVE Result Diagram: 06/17/16 0436 06/17/16 0436 Imaging Last 48 hours Impressions Chest X-Ray 06/16/16 0600 Signed Impressions: Service Date/Time: May 04:06 - CONCLUSION: Increasing bibasilar infiltrates. Free air under right hemidiaphragm. Dudley Akbar MD Abdomen X-Ray 06/16/16 0000 Signed Impressions: Service Date/Time: May 09:12 - CONCLUSION: Apparent appropriate placement of gastric tube placement. MD Yemi Daugherty Kathryn B. ARNP Jun 17, 2016 07:54
[2016-06-17] MEDS: CHLORHEXIDINE 0.12% (ORAL KIT) 15 ML CUP MT SCH ×2 (08:03→20:41)
[2016-06-17] MEDS: CALCIUM ACETATE 667 MG CAP NG SCH ×3 (08:04→17:10)
[2016-06-17] MEDS: cloNIDine HCL 0.1 MG TAB PO SCH ×3 (08:04→17:10)
[2016-06-17] MEDS: SODIUM CHLORIDE 0.9% FLUSH 5 ML FLUSH IV FLUSH SCH ×2 (08:04→20:40)
[2016-06-17] MEDS: hydrALAZINE HCL 25 MG TAB PO SCH ×3 (08:04→17:10)
[2016-06-17] MEDS: PANTOPRAZOLE SODIUM 40 MG VIAL IV SCH (08:04)
[2016-06-17] MEDS: NEOMYCIN/POLYMYXIN/BACITRACIN OINT 15 GM TUBE TOPICAL SCH ×2 (08:05→20:41)
[2016-06-17] MEDS: SODIUM CHLOR 0.9% 1000 ML INJ 1,000 ML IV SCH (09:06)
[2016-06-17] MEDS: DOCUSATE SODIUM 100 MG/10 ML UDC PO SCH ×2 (09:07→20:40)
--- NOTE | 2016-06-17 11:46 | HHI.NPPN ---
Subjective General Problems: Anemia Renal Failure: Chronic, End Stage Renal Disease Interval History The bleeding from PEG and trach has stopped. Vitals/BP stable. He is on Precedex infusion and ventilator. Dialyzed yesterday. (Temitope Haley) Review of Systems General General Remarks unable to evaluate due to mental status (Temitope Haley) Objective Data Data 06/16/16 06/17/16 19:00 07:00 Intake Total 1038 ml 1457 ml Output Total 2500 ml 450 ml Balance -1462 ml 1007 ml IV Total 798 ml 948 ml Tube Feeding 259 ml Tube Irrigant 240 ml Other 250 ml Output Urine Total 200 ml Stool Total 250 ml Hemodialysis 2500 ml # Bowel Movements 1 Vital Signs Date Time Temp Pulse Resp B/P Pulse Ox O2 Delivery O2 Flow Rate FiO2 06/17/16 10:00 85 06/17/16 09:25 40 06/17/16 09:25 100 40 06/17/16 09:06 12 06/17/16 08:00 40 06/17/16 08:00 98.5 86 12 156/72 100 06/17/16 08:00 86 06/17/16 06:00 86 06/17/16 04:43 100 40 06/17/16 04:00 99.6 91 12 168/81 100 06/17/16 04:00 40 06/17/16 04:00 91 06/17/16 02:00 96 06/17/16 01:18 100 40 06/17/16 00:00 99.6 97 12 138/77 100 06/17/16 00:00 97 06/17/16 00:00 40 06/16/16 22:00 100 06/16/16 21:11 100 40 06/16/16 20:00 98.8 99 12 115/55 100 06/16/16 20:00 40 06/16/16 20:00 99 06/16/16 18:00 91 06/16/16 16:44 100 40 06/16/16 16:00 40 06/16/16 16:00 84 06/16/16 16:00 98.5 84 12 147/70 100 06/16/16 14:00 79 06/16/16 12:06 100 40 06/16/16 12:00 88 06/16/16 12:00 40 06/16/16 12:00 98.3 88 16 141/67 100 (Temitope Haley) -: 06/17/16 0436 06/17/16 0436 Imaging Last 72 hours Impressions Chest X-Ray 06/16/16 0600 Signed Impressions: Service Date/Time: May 04:06 - CONCLUSION: Increasing bibasilar infiltrates. Free air under right hemidiaphragm. Dudley Akbar MD Abdomen X-Ray 06/16/16 0000 Signed Impressions: Service Date/Time: May 09:12 - CONCLUSION: Apparent appropriate placement of gastric tube placement. Amaris Rosenberg MD Abdomen/Pelvis CT 06/15/16 0000 Signed Impressions: Service Date/Time: Wednesday, June 15, 2016 13:16 - CONCLUSION: Significant free intraperitoneal air. Consolidative changes in both bases with small bilateral pleural effusions. Mikhail Abrams MD FACR Tubes & Lines Comment trach, PEG Drip Comment Precedex (Temitope Haley) Physical Exam General Appearance: Well Developed, Well Nourished, Comfortable (Temitope Haley) Eyes Eye Exam: Pupils Equal, Pupils Reactive (Temitope Haley) Neck Neck Exam: Neck Supple Neck Remarks trach (Temitope Haley) Pulmonary Resp Exam: Breath Sounds Equal, Crackles, Decreased Bases, Diminished Breath Sounds (Temitope Haley) Cardiology CV Exam: Regular, Normal Sinus Rhythm, Good Perfusion (Temitope Haley) Gastrointestinal/Abdomen GI Exam: Soft, Non-Tender, Bowel Sounds Present, Non-Distended GI Remarks PEG site benign (Temitope Haley) Musculoskeletal MS Exam: Joints Intact, Normal Tone MS Remarks moves all extremities (Temitope Haley) Integumentary Skin Exam: Clear, Warm, Dry, Intact (Temitope Haley) Extremeties Extremities Exam: Pedal Pulses Palpable, Trace Edema (Temitope Haley) Neurologic Neuro Exam: Unresponsive, Sedated (Temitope Haley) Assessment/Plan Discussed Condition With: Patient Assessment Summary: Anemia of CKD, Hypertension, End Stage Renal Disease Electrolyte Assessment: Hypocalcemia Problem List: (1) ESRD on dialysis Plan: Continue dialysis T-Th-Sat, has 2500 ml fluid removal yesterday monitor AVF function intermittent metabolic profile, potassium corrected to normal with dialysis continue Phoslo with tube feeding, evaluate phos level periodically BP improved monitor fluid volume status will stop IVF (2) Anemia Plan: hemoglobin normally stable resolving acute blood loss from PEG/trach received 3 units PRBC, 1 plasma, and 1 platelet since 06/14 (3) Hypertension Plan: BP stable He is on metoprolol, hydralazine, clonidine with hold parameters (4) DM (diabetes mellitus) Plan: continue insulin coverage goal to maintain blood glucose between 140 and 180 off D10 , tube feeding was resumed (5) Hyperkalemia Plan: corrected with extra dialysis treatment on 06/13 monitor for recurrence (6) NSTEMI (non-ST elevated myocardial infarction) Plan: Troponin I elevated post cardiac arrest, chest compressions. he had catheterization in January 2016, normal coronary arteries (7) Elevated LFTs Plan: improved. (8) Cocaine abuse Plan: cessation recommended (9) Encephalopathy Plan: vent management, s/p trach placement poor prognosis (Temitope Haley) Plan patient was seen and examined. Agree with above assessment and plan. 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
--- NOTE | 2016-06-17 12:04 | HHI.CCPN ---
Subjective Remarks/Hospital Course 05/28: 60 yo AAM with PMH of HTN, stroke without residual deficit, DM, nonischemic cardiomyopathy (EF 40% and stage I diastolic dysfunction) Cocaine abuse, Hepatitis C, ESRD on HD T/R/Sat who presents to [facility] [place] [place] ED for 2 day history of SOB. He reported symptoms started 1/ after he received hemodialysis. He reported a nonproductive cough without fevers, chills, or chest pain. His workup revealed a normal white count and CXR that demonstrated RLL consolidation. His potassium was 6.8. While preparations were being made to administer medications to address his hyperkalemia he developed bradycardia and PEA arrest. He underwent CPR and received epinephrine and 1 amp of bicarbonate. It was return of spontaneous circulation after 8 minutes. He was intubated by the emergency department physician Dr. Clancy. Dr. Francisco with nephrology was consulted and he made arrangements for urgent dialysis which is taking place currently. Target removal 3.8 L per HD RN. Postintubation CXR demonstrates R base infiltrate but also appears there is right pleural effusion. Influenza screen negative. Receive Zosyn and azithromycin in the emergency department. 05/29: Sedated, arousable, not following commands, orally intubated on mechanical ventilation. Gets agitated on lightening sedation and has a strong gag reflex. 05/30: Sedated, arousable, not following commands. Remains orally intubated on mechanical ventilation. Failed C Pap trial today. Dialyzed earlier. 05/31: Sedated/encephalopathic on lightening sedation, not following commands. Remains orally intubated on mechanical ventilation. Failed C Pap trials yesterday. 2-D echo just being completed today. 06/01 No events overnight. On Precedex drip unresponsive and doesn't follow commands. Afebrile. 06/02 Patient s/p HD yesterday with removal 1.5L , on Precedex infusion for sedation. 06/03 No events overnight. Sedated with fentanyl and intubated. s/p HD yesterday with removal 1.5L. 06/04 Patient remains sedated and intubated. Afebrile. Did not tolerate CPAP trials yesterday as he became tachypneic. 06/05 Patient s/p HD yesterday with removal 2L. Sedated with Fentanyl and intubated. Afebrile. Patient gets very agitated and restless when sedation is weaned off. 06/06 Patient is sedated with Fentanyl placed on Diprivan as well last night. Gets agitated and tachypneic on CPAP trials. s/p HD yesterday with removal 2L. 06/07: Remains sedated/encephalopathic, orally intubated on mechanical ventilation. Failed C Pap trials yesterday. 06/08: Remains sedated/encephalopathic, orally intubated on mechanical ventilation. Gets agitated on lightening sedation however not following commands. We'll attempt Precedex and titrate down on fentanyl/propofol 06/09: Remains sedated/encephalopathic, orally intubated on mechanical ventilation. On Precedex/propofol/fentanyl. Will attempt transitioning to Precedex alone to control agitation for C Pap trials. 06/10: Still requiring Precedex/propofol and fentanyl for CPAP trials. Patient continues to be extremely agitated and currently unable to extubate. Not following commands. Positive BM. Tolerating tube feeds. Afebrile. 06/11: On Precedex drip currently. -3 L of hemodialysis. Moving all 4 extremities but not following commands. 06/12: no changes. plan for PEG and Trach tomorrow. 06/13: plan for trach today. discussed with health care proxy and she still has concerns about possible trach. will touch base with palliative care. have talked with Dr. Lee from trauma, and plan for trach at some point depending on his schedule and per family discussions. 06/14: plan for trach today. significant bleeding from around PEG site. GI aware. 2 units prbc ordered. coags ordered. 0.3mcg/kg DDAVP ordered. 06/15: trach yesterday by Dr. Lee. trach site and PEG site with ongoing oozing despite FFP, platelets, DDAVP. I talked with Dr. Francisco and he is ok with iv contrast for imaging if needed, given that this is ESRD with no hope of renal recovery. 06/16: Continues to oozing from tracheostomy site. Packed with Surgicel but continues to ooze. No oozing from PEG tube site. Currently nothing by mouth. 2 bowel movements. Awake and does follow commands Subjective 06/17: Afebrile. No more bleeding from tracheostomy site. PEG site intact. Positive BM. Awake and following commands. Objective Vital Signs Date Time Temp Pulse Resp B/P Pulse Ox O2 Delivery O2 Flow Rate FiO2 06/17/16 10:00 85 06/17/16 09:25 40 06/17/16 09:25 100 06/17/16 09:06 12 06/17/16 08:00 98.5 156/72 Intake and Output 06/16/16 06/16/16 06/17/16 08:00 16:00 00:00 Intake Total 253 ml 1038 ml 699 ml Output Total 2500 ml 200 ml Balance 253 ml -1462 ml 499 ml Result Diagram: 06/17/16 0436 06/17/16 0436 Other Results Microbiology Date/Time Procedure Status Source Growth 06/15/16 15:10 Stool Occult Blood (FLORES) - Final Complete Stool Stool HEMOCCULT POSITIVE Imaging Last Impressions Chest X-Ray 06/16/16 0600 Signed Impressions: Service Date/Time: May 04:06 - CONCLUSION: Increasing bibasilar infiltrates. Free air under right hemidiaphragm. Dudley Akbar MD Abdomen X-Ray 06/16/16 0000 Signed Impressions: Service Date/Time: May 09:12 - CONCLUSION: Apparent appropriate placement of gastric tube placement. Amaris Rosenberg MD Abdomen/Pelvis CT 06/15/16 0000 Signed Impressions: Service Date/Time: Wednesday, June 15, 2016 13:16 - CONCLUSION: Significant free intraperitoneal air. Consolidative changes in both bases with small bilateral pleural effusions. Mikhail Abrams MD FACR Brain MRI 06/10/16 0000 Signed Impressions: Service Date/Time: Friday, June 10, 2016 20:14 - CONCLUSION: 1. Mild chronic-appearing ischemic changes in the periventricular white matter slightly progressed from 2014. No recent infarct, mass effect or midline shift. No hydrocephalus. Lakhwinder Pringle MD Liver Ultrasound 06/01/16 0000 Signed Impressions: Service Date/Time: Wednesday, June 01, 2016 15:38 - CONCLUSION: 1. Bilateral pleural effusions. 2. Thick-walled gallbladder with minimal pericholecystic fluid. If there is clinical concern for acute cholecystitis a hepatobiliary scan may be helpful to confirm cystic duct obstruction. 3. Minimal ascites. 4. Echogenic atrophic right kidney. 5. Mild nonspecific prominence of the main pancreatic duct. Enzo Price MD Head CT 05/29/16 0000 Signed Impressions: Service Date/Time: Sunday, May 29, 2016 03:03 - CONCLUSION: Age- appropriate atrophy, stable from prior in September 2015. No acute findings. Earnest Torre MD Lower Extremity Ultrasound 05/28/16 0000 Signed Impressions: Service Date/Time: Saturday, May 28, 2016 22:27 - CONCLUSION: Negative for deep venous thrombosis bilateral lower extremity. Earnest Torre MD Objective Remarks GENERAL: 60 yo AA male, critically ill, trached and pegged SKIN: Warm and dry. No rash HEAD: Normocephalic. EYES: Pupils minimally reactive at 2 mm bilaterally. No scleral icterus. No injection or drainage. NECK: Supple, trachea midline. No JVD. trach in place with dressings that are saturated with blood around the trach. CARDIOVASCULAR: Regular rate and rhythm with S1, S2. No S4. II/ systolic murmur at the apex RESPIRATORY: Breath sounds equal bilaterally. Few crackles appreciate the bases. No accessory muscle use. GASTROINTESTINAL: Abdomen soft, non-tender, nondistended. Clean dry and intact PEG site. MUSCULOSKELETAL: No disc and peripheral edema. Palpable thrill left AV fistula. Neuro: Currently arousable and will nod head appropriately to simple questions. Moves all 4 extremities equally and spontaneous. A/P Assessment and Plan NEURO: Acute encephalopathy, post cardiac arrest. History of stroke without residual deficit (per friend's report) History of cocaine abuse Posttraumatic stress disorder On as needed fentanyl for pain management. Precedex is currently off Neurologically much improved EEG 06/12 revealed mild sleep. No seizure activity noted. MRI brain revealed chronic vascular changes. No acute findings Neuro has followed peripherally-Dr. Wilks RESP: Acute respiratory failure Healthcare associated pneumonia Intubated in ED 05/28/16 following cardiac arrest ACV ventilation 12/500/5/40 Duoneb q6 hours. Albuterol q2 prn. Ventilator Bundle. Daily SBT as leana. -- s/p trach 06/14. Tracheotomy site packed with Surgicel. Dr. Lee notified yesterday and placed 2 sutures. No further bleeding. CV: Cardiac arrest, secondary to hyperkalemia Nonischemic cardiomyopathy secondary to HTN, cocaine abuse Hypertension Elevated Troponin: ? NSTEMI Monitor HR and BP keep MAP>65mmHg Continue home meds: Hydralazine 25 tid. Clonidine 0.1 tid., Lopressor 25mg Q6 ( 100 mg twice a day at home) ASA 81 mg daily will be continued. Echo 05/31: EF 25-30%, no RWMA. Mild MR/TR. MEGAN 36 mmHg cardiac cath 12/09/2012 - EF 40%, normal coronaries. Elevated troponin, cardiac arrest. Per cardiology-no intervention planned. GI: Hepatitis C Elevated LFT Free air - likely secondary to EGD/tube feeding insufflation Daily holding TF-Nepro@40ml/hr Monitor LFT's: Trending down US liver: Bilateral pleural effusions. Thick-walled gallbladder with minimal pericholecystic fluid. Minimal ascites. Echogenic atrophic right kidney. Mild nonspecific prominence of the main pancreatic duct. Status post Gastrografin/PEG tubing cracks location. Chest post suture by Dr. Zander Tabares. No actively from PEG site currently Protonix for GI prophylaxis Colace for bowel regimen FEN/RENAL: ESRD Acute severe hyperkalemia - resolved Hyperphosphatemia Intermittent hemodialysis per nephrology (Dr. Francisco) Emergent HD 05/28 due to potassium of 6.8 with bradycardia and cardiac arrest. Monitor renal function, I/O's, avoid nephrotoxins. s/p HD today Continue PhosLo 667 mg 3 times a day ID: Acute healthcare associated pneumonia Received Zosyn and azithromycin in the emergency department 05/28. s/p Zosyn 2.25 g IV every 8 hours 05/29 - 06/12. Azithro x 10 days.05/28 nasal washing negative for Influenza. continue to monitor Pertinent cultures 05/28 - blood cultures 2 - 1 out of 2 corynebacterium not Jk 05/29 Sputum- beta strep not A HEME: Anemia of acute blood loss from PEG tube Thrombocytopenia 1 unit prbc, 1 ffp, 1 plt. DDAVP given 06/15 Given 1 unit PRBC 06/16 Coags within normal limits Received 16 mg DDAVP and 5000 mg amicar Monitor CBC. Currently 7.8 Dr. Kevin/hematology following. Von Willebrand factor pending ENDO: Diabetes mellitus Medium dose Insulin sliding scale with bedside glucose every 6 hours PROPH: hold pharmacologic DVT prophylaxis in the setting of active bleeding. Protonix 40 mg IV daily for stress ulcer prophylaxis. Doppler US LE negative for DVT ACCESS: Peripheral IV providing adequate access at this time. Left AV fistula accessed for hemodialysis Full code Palliative care is following to assist with deciding goals of therapy. Critical Care: The total critical care time was 37 minutes. Time to perform other separately billable procedures was not included in the critical care time. Chevy Gonzales MD Jun 17, 2016 12:04
--- NOTE | 2016-06-17 13:27 | PD.ONC.PN ---
Subjective Subjective Remarks Afebrile overnight. Patient intubated, sedated. at bedside. Per nurse, no bleeding from trach or PEG. Objective Data Date Time Temp Pulse Resp B/P Pulse Ox O2 Delivery O2 Flow Rate FiO2 06/17/16 12:39 100 40 06/17/16 12:00 40 06/17/16 12:00 82 06/17/16 12:00 81 23 145/73 100 06/17/16 10:00 85 06/17/16 09:25 40 06/17/16 09:25 100 40 06/17/16 09:06 12 06/17/16 08:00 40 06/17/16 08:00 98.5 86 12 156/72 100 06/17/16 08:00 86 06/17/16 06:00 86 06/17/16 04:43 100 40 06/17/16 04:00 99.6 91 12 168/81 100 06/17/16 04:00 40 06/17/16 04:00 91 06/17/16 02:00 96 06/17/16 01:18 100 40 06/17/16 00:00 99.6 97 12 138/77 100 06/17/16 00:00 97 06/17/16 00:00 40 06/16/16 22:00 100 06/16/16 21:11 100 40 06/16/16 20:00 98.8 99 12 115/55 100 06/16/16 20:00 40 06/16/16 20:00 99 06/16/16 18:00 91 06/16/16 16:44 100 40 06/16/16 16:00 40 06/16/16 16:00 84 06/16/16 16:00 98.5 84 12 147/70 100 06/16/16 14:00 79 06/17/16 06/17/16 06/17/16 07:00 15:00 23:00 Intake Total 758 ml Output Total 250 ml Balance 508 ml Result Diagram: 06/17/166 06/17/16435 Laboratory Results Laboratory Tests Test 06/16/16 06/17/16 16:33 04:36 Hemoglobin 8.3 GM/DL 7.8 GM/DL Hematocrit 24.1 % 22.5 % White Blood Count 10.7 TH/MM3 Red Blood Count 2.59 MIL/MM3 Mean Corpuscular Volume 86.9 FL Mean Corpuscular Hemoglobin 30.0 PG Mean Corpuscular Hemoglobin 34.5 % Concent Red Cell Distribution Width 15.4 % Platelet Count 169 TH/MM3 Mean Platelet Volume 10.5 FL Sodium Level 139 MEQ/L Potassium Level 3.9 MEQ/L Chloride Level 98 MEQ/L Carbon Dioxide Level 30.4 MEQ/L Anion Gap 11 MEQ/L Blood Urea Nitrogen 25 MG/DL Creatinine 4.40 MG/DL Estimat Glomerular Filtration 17 ML/MIN Rate Random Glucose 105 MG/DL Calcium Level 8.5 MG/DL Phosphorus Level 4.0 MG/DL Magnesium Level 1.8 MG/DL Culture Results Microbiology Date/Time Procedure Status Source Growth 06/15/16 15:10 Stool Occult Blood (FLORES) - Final Complete Stool Stool HEMOCCULT POSITIVE Administered Medications Medications (Trade) Dose Ordered Sig/Crispin Route PRN Reason Start Time Stop Time Status Last Admin Dose Admin Chlorhexidine Gluconate (Peridex 0.12% Liq) 15 ml BID@08,20 MT 05/29/16 08:00 06/17/16 08:03 IV Flush (NS Flush) 2 ml UNSCH PRN IV FLUSH FLUSH AFTER USING IV ACCESS 05/28/16 20:45 05/29/16 08:46 IV Flush (NS Flush) 2 ml BID IV FLUSH 05/28/16 21:00 06/17/16 08:04 Fentanyl Citrate (fentaNYL INJ) 50 mcg Q1H PRN IV PUSH Pain scale 6-10 &/or sedation 05/28/16 20:45 06/17/16 08:05 Pantoprazole Sodium (Protonix Inj) 40 mg DAILY IV 05/29/16 09:00 06/17/16 08:04 Heparin Sodium (Porcine) (Heparin Inj) 5,000 units Q8H SQ 05/28/16 22:00 Hold 06/13/16 06:13 Miscellaneous Information 1 Q361D XX 05/28/16 20:45 05/29/16 08:46 Chlorhexidine Gluconate 3 pack 3 pack Taper DAILY@04 TOP 05/29/16 04:00 05/25/17 03:59 06/17/16 02:48 Propofol 100 ml @ 0 mls/hr TITRATE IV 05/28/16 20:45 06/17/16 02:48 Sodium Chloride 1,000 ml @ 0 mls/hr Q0M PRN IV For Prime & Rinse Back 05/28/16 20:53 06/16/16 11:49 Sodium Chloride 1,000 ml @ 200 mls/hr Q5H PRN IV WITH DIALYSIS 05/28/16 20:53 06/02/16 09:53 Sodium Chloride (NS 1000 ml Inj) 1,000 ml @ 0 mls/hr Q0M PRN IV WITH DIALYSIS 05/28/16 20:53 06/16/16 11:50 Albumin Human (Albumin 25% Inj) 25 gm UNSCH PRN IV WITH DIALYSIS 05/28/16 21:00 06/14/16 11:12 Heparin Sodium (Porcine) (Heparin Inj) UNSCH PRN .XX WITH DIALYSIS 05/28/16 21:00 05/30/16 13:08 Gelatin (Gelfoam 12 Mm/7 Mm Top) 1 foam UNSCH PRN TOP SEE LABEL COMMENTS 05/28/16 21:00 06/16/16 11:50 Aspirin (Ecotrin Ec) 81 mg DAILY PO 05/29/16 09:00 Hold 06/13/16 08:02 Hydralazine HCl (Apresoline) 25 mg TID PO 05/29/16 09:00 06/17/16 08:04 Clonidine (Catapres) 0.1 mg TID PO 05/29/16 09:00 06/17/16 08:04 Lorazepam (Ativan Inj) 2 mg Q4H PRN IV PUSH agitation 05/29/16 18:00 06/05/16 17:51 Metoprolol Tartrate (Lopressor) 25 mg Q6HR PO/NG 05/31/16 12:00 06/17/16 05:37 Calcium Acetate 667 mg 667 mg TID NG 05/31/16 13:00 06/17/16 08:04 Fentanyl Citrate 250 ml @ 0 mls/hr TITRATE IV 06/08/16 10:00 Hold 06/08/16 10:29 Dexmedetomidine HCl/Sodium Chloride (Precedex Inj/NS 250 ml Inj) 250 ml @ 0 mls/hr TITRATE IV 06/15/16 22:00 06/17/16 02:47 Neomycin/ Polymyxin/ Bacitracin (Neosporin Oint) 1 applic Q12HR TOPICAL 06/16/16 21:00 06/17/16 08:05 Docusate Sodium (Colace Liq) 100 mg BID PO 06/17/16 09:00 06/17/16 09:07 Objective Remarks GENERAL: Intubated, sedated SKIN: Warm and dry. HEAD: Normocephalic. EYES: No injection or drainage. NECK: Supple, trachea midline. trach in place, no bleeding. LYMPHATIC: No adenopathy. CARDIOVASCULAR: Regular rate and rhythm RESPIRATORY: anterior buitrago with coarse rhonchi. on mechanical ventilation. GASTROINTESTINAL: Abdomen soft, mild distension. G-tube in place, no bleeding. EXTREMITIES: No cyanosis NEUROLOGICAL: intubated, sedated. Assessment/Plan Problem List: (1) Bleeding from gastrostomy tube site Status: Acute Plan: --Bleeding around the PEG tube site and tracheostomy site. --INR is normal. PTT is only slightly elevated. --likely has bleeding due to platelet dysfunction from end-stage renal disease. --s/p 1 unit platelets and one unit FFP. --s/p16 mcg of DDAVP x 2days. --s/p vitamin-K 5 mg, 06/14 --s/p Amicar x 1 06/15, 06/16. --Suture was placed on PEG and bleeding stopped but still oozing around the trach. --No obvious DIC noted. --ASA and heparin stopped Assessment 60-year-old male who first presented to the hospital with shortness of breath and cough. went into cardiac arrest and in IMC since that time. --intubated on 05/28/2016. also developed encephalopathy. --PEG tube on 06/13/2016 ---tracheostomy ~06/15/16 Respiratory failure. Encephalopathy. End-stage renal disease on dialysis. h/o Hepatitis C Plan 1. monitor CBC 2. monitor clinically for bleeding. Attending Statement The exam, history, and the medical decision-making described in the above note were completed with the assistance of the mid-level provider. I reviewed and agree with the findings presented. I attest that I had a [id number] encounter with the patient on the same day, and personally performed and documented my assessment and findings in the medical record. No further bleeding noted from PEG or trach. Continue to monitor CBC. Anca Harris Jun 17, 2016 13:27 Sav Kevin MD Jun 17, 2016 18:01
--- NOTE | 2016-06-17 14:24 | HHI.GIFU ---
Subjective Remarks Resting in bed. No further bleeding from peg tube site. TF was restarted last night and he is tolerating this so far. (Tatiana Sweeney) Objective Vitals I&O Vital Signs Date Time Temp Pulse Resp B/P Pulse Ox O2 Delivery O2 Flow Rate FiO2 06/17/16 12:39 100 40 06/17/16 12:00 40 06/17/16 12:00 82 06/17/16 12:00 81 23 145/73 100 06/17/16 10:00 85 06/17/16 09:25 40 06/17/16 09:25 100 40 06/17/16 09:06 12 06/17/16 08:00 40 06/17/16 08:00 98.5 86 12 156/72 100 06/17/16 08:00 86 06/17/16 06:00 86 06/17/16 04:43 100 40 06/17/16 04:00 99.6 91 12 168/81 100 06/17/16 04:00 40 06/17/16 04:00 91 06/17/16 02:00 96 06/17/16 01:18 100 40 06/17/16 00:00 99.6 97 12 138/77 100 06/17/16 00:00 97 06/17/16 00:00 40 06/16/16 22:00 100 06/16/16 21:11 100 40 06/16/16 20:00 98.8 99 12 115/55 100 06/16/16 20:00 40 06/16/16 20:00 99 06/16/16 18:00 91 06/16/16 16:44 100 40 06/16/16 16:00 40 06/16/16 16:00 84 06/16/16 16:00 98.5 84 12 147/70 100 I/O 06/16/16 06/16/16 06/16/16 06/17/16 06/17/16 06/17/16 07:00 15:00 23:00 07:00 15:00 23:00 Intake Total 253 ml 1038 ml 699 ml 758 ml Output Total 2500 ml 200 ml 250 ml Balance 253 ml -1462 ml 499 ml 508 ml IV Total 253 ml 798 ml 505 ml 443 ml Tube Feeding 94 ml 165 ml Tube Irrigant 240 ml Other 100 ml 150 ml Output Urine Total 150 ml 50 ml Stool Total 50 ml 200 ml Hemodialysis 2500 ml # Bowel Movements 1 Laboratory Laboratory Tests Test 06/16/16 06/17/16 16:33 04:36 Hemoglobin 8.3 7.8 Hematocrit 24.1 22.5 White Blood Count 10.7 Red Blood Count 2.59 Mean Corpuscular Volume 86.9 Mean Corpuscular Hemoglobin 30.0 Mean Corpuscular Hemoglobin 34.5 Concent Red Cell Distribution Width 15.4 Platelet Count 169 Mean Platelet Volume 10.5 Sodium Level 139 Potassium Level 3.9 Chloride Level 98 Carbon Dioxide Level 30.4 Anion Gap 11 Blood Urea Nitrogen 25 Creatinine 4.40 Estimat Glomerular Filtration 17 Rate Random Glucose 105 Calcium Level 8.5 Phosphorus Level 4.0 Magnesium Level 1.8 Date/Time Procedure Status Source Growth 06/15/16 15:10 Stool Occult Blood (FLORES) - Final Complete Stool Stool HEMOCCULT POSITIVE Imaging Last Impressions Chest X-Ray 06/16/16 0600 Signed Impressions: Service Date/Time: May 04:06 - CONCLUSION: Increasing bibasilar infiltrates. Free air under right hemidiaphragm. Dudley Akbar MD Abdomen X-Ray 06/16/16 0000 Signed Impressions: Service Date/Time: May 09:12 - CONCLUSION: Apparent appropriate placement of gastric tube placement. Amaris Rosenberg MD Abdomen/Pelvis CT 06/15/16 0000 Signed Impressions: Service Date/Time: Wednesday, June 15, 2016 13:16 - CONCLUSION: Significant free intraperitoneal air. Consolidative changes in both bases with small bilateral pleural effusions. Mikhail Abrams MD FACR Brain MRI 06/10/16 0000 Signed Impressions: Service Date/Time: Friday, June 10, 2016 20:14 - CONCLUSION: 1. Mild chronic-appearing ischemic changes in the periventricular white matter slightly progressed from 2014. No recent infarct, mass effect or midline shift. No hydrocephalus. Lakhwinder Pringle MD Liver Ultrasound 06/01/16 0000 Signed Impressions: Service Date/Time: Wednesday, June 01, 2016 15:38 - CONCLUSION: 1. Bilateral pleural effusions. 2. Thick-walled gallbladder with minimal pericholecystic fluid. If there is clinical concern for acute cholecystitis a hepatobiliary scan may be helpful to confirm cystic duct obstruction. 3. Minimal ascites. 4. Echogenic atrophic right kidney. 5. Mild nonspecific prominence of the main pancreatic duct. Enzo Price MD Head CT 05/29/16 0000 Signed Impressions: Service Date/Time: Sunday, May 29, 2016 03:03 - CONCLUSION: Age- appropriate atrophy, stable from prior in September 2015. No acute findings. Earnest Torre MD Lower Extremity Ultrasound 05/28/16 0000 Signed Impressions: Service Date/Time: Saturday, May 28, 2016 22:27 - CONCLUSION: Negative for deep venous thrombosis bilateral lower extremity. Earnest Torre MD Physical Exam HEENT: Normocephalic; atraumatic; no jaundice. CHEST: CTA. Trach CARDIAC: RRR. ABDOMEN: Soft, nondistended, nontender; no hepatosplenomegaly; bowel sounds are present in all four quadrants. PEG tube site without any bleeding. Abdomen is mildly distended, but soft and no significant tenderness. EXTREMITIES: Generalized edema. SKIN: Normal; no rash; no jaundice. 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 S/P EGD with peg (06/13/16)---> duodenitis second portion, gastritis antrum, retroflexed views revealed a hiatal hernia. Pt had significant oozing from site after procedure, s/p gelfoam and pressure drsg. This has continued to ooze overnight. Took down drsg- gelfoam in place, still oozing small to moderate amount of blood continuously. S/P 3 units PRBC. S/P Silver nitrate, injection of epinephrine on 06/14- oozing from peg tube stopped at time, but apparently started oozing again. Had repeat EGD (06/14/16) for control of bleeding. S/P suture and surgicel by GS (06/16/16)---->no further bleeding from the PEG tube site. CT scan with free air- likely escaped air from peg tube site with repeat egd. S/P GS evaluation. Placement of PEG tube confirmed with gastrografin, TF restarted, tolerating no further bleeding. - Abnormal CT with free air. CT abdominal pelvis with significant free intraperitoneal air, consolidative changes in both bases with small bilateral pleural effusions. He does not appear to have an acute abdomen. This is most likely escaped air from peg tube site and repeat EGD. D/W Dr. Tabares. Placement confirmed with gastrografin kub. Okay to use tf - Dysphagia/FEN- S/P EGD with peg tube placement (06/13/16). - Anemia. S/P 4 units PRBC 7.8/22.5. - Respiratory failure/ healthcare associated pneumonia - S/P Tracheostomy. Pt with some oozing related to this. - Hepatitis C - History of cocaine abuse - ESRD- HD Plan: - Okay to use PEG - S/P Suture, Surgicel by GS at PEG tube site. - S/P Silver nitrate applications - S/P Epinephrine injection at site - S/P Gelfoam application - Monitor HH - Transfuse as necessary - Supportive care - Further recommendations to follow based on results of above - Patient seen and examined by Dr. coleman and myself and this note is written on her behalf. (Tatiana Sweeney) Tatiana Sweeney Jun 17, 2016 14:24 Prachi Coleman MD Jun 17, 2016 18:55
--- NOTE | 2016-06-17 14:45 | PD.CAR.PN ---
CVT Progress Note Subjective/Hospital Course: Will proceed with tracheostomy Monday Thanks J 06/17/16 Status post tracheostomy Patient has thrombocytopenia and vWF deficit in face of renal failure. Some oozing around the trachea skin incision. I placed for a Prolene minute yesterday and now area is completely dry We'll sign off Objective: Vital Signs Date Time Temp Pulse Resp B/P Pulse Ox O2 Delivery O2 Flow Rate FiO2 06/17/16 14:00 85 06/17/16 12:39 100 40 06/17/16 12:00 40 06/17/16 12:00 82 06/17/16 12:00 81 23 145/73 100 06/17/16 10:00 85 06/17/16 09:25 40 06/17/16 09:25 100 40 06/17/16 09:06 12 06/17/16 08:00 40 06/17/16 08:00 98.5 86 12 156/72 100 06/17/16 08:00 86 06/17/16 06:00 86 06/17/16 04:43 100 40 06/17/16 04:00 99.6 91 12 168/81 100 06/17/16 04:00 40 06/17/16 04:00 91 06/17/16 02:00 96 06/17/16 01:18 100 40 06/17/16 00:00 99.6 97 12 138/77 100 06/17/16 00:00 97 06/17/16 00:00 40 06/16/16 22:00 100 06/16/16 21:11 100 40 06/16/16 20:00 98.8 99 12 115/55 100 06/16/16 20:00 40 06/16/16 20:00 99 06/16/16 18:00 91 06/16/16 16:44 100 40 06/16/16 16:00 40 06/16/16 16:00 84 06/16/16 16:00 98.5 84 12 147/70 100 Labs: Laboratory Tests Test 06/17/16 04:36 White Blood Count 10.7 TH/MM3 (4.0-11.0) Red Blood Count 2.59 MIL/MM3 (4.50-5.90) Hemoglobin 7.8 GM/DL (13.0-17.0) Hematocrit 22.5 % (39.0-51.0) Mean Corpuscular Volume 86.9 FL (80.0-100.0) Mean Corpuscular Hemoglobin 30.0 PG (27.0-34.0) Mean Corpuscular Hemoglobin 34.5 % Concent (32.0-36.0) Red Cell Distribution Width 15.4 % (11.6-17.2) Platelet Count 169 TH/MM3 (150-450) Mean Platelet Volume 10.5 FL (7.0-11.0) Sodium Level 139 MEQ/L (136-145) Potassium Level 3.9 MEQ/L (3.5-5.1) Chloride Level 98 MEQ/L (98-107) Carbon Dioxide Level 30.4 MEQ/L (21.0-32.0) Anion Gap 11 MEQ/L (5-15) Blood Urea Nitrogen 25 MG/DL (7-18) Creatinine 4.40 MG/DL (0.60-1.30) Estimat Glomerular Filtration 17 ML/MIN (>89) Rate Random Glucose 105 MG/DL (74-106) Calcium Level 8.5 MG/DL (8.5-10.1) Phosphorus Level 4.0 MG/DL (2.5-4.9) Magnesium Level 1.8 MG/DL (1.5-2.5) Result Diagram: 06/17/16 0436 06/17/16 0436 Alaina Bearden MD Jun 17, 2016 14:45
[2016-06-17 15:54] LABS: COAG FACTOR VIII 99 (50-180)
[2016-06-17 19:54] LABS: VWF AG 203 % (50-217)
[2016-06-18] VITALS (18 sets, daily range): BP systolic 111–176; BP diastolic 56–90; PULSE 74–96; RESP 16–18; TEMP 97.9–98.3; O2SAT 98–100
[2016-06-18] MEDS: METOPROLOL TARTRATE 25 MG TAB PO/NG SCH ×5 (00:11→22:39)
[2016-06-18] MEDS: INSULIN NovoLIN REGULAR SUPPLEMENTAL SCALE SQ SCH ×4 (03:00→20:31)
[2016-06-18] MEDS: CHLORHEXIDINE GLUCONATE 2 % 1 PACK (2 CLOTHS) TOP SCH (03:58)
--- NOTE | 2016-06-18 04:21 | RADRPT ---
EXAM DATE/TIME: 06/18/2016 02:55 [facility] COMPARISON: CHEST SINGLE AP, June 16, 2016, 4:06. INDICATIONS : Shortness of breath, possible pulmonary disease. MEDICAL HISTORY : Renal insufficiency. Stroke. Myocardial infarction. SURGICAL HISTORY : None. ENCOUNTER: Subsequent ACUITY: 2 weeks PAIN SCORE: Non-responsive. LOCATION: Bilateral chest FINDINGS: Bilateral pleural effusions and lower lobe consolidation identified. Tracheostomy tube is present. Fr ee air beneath the diaphragm is less conspicuous today. Osseous structures are intact. CONCLUSION: Free air beneath the diaphragm has decreased in prominence today. Bilateral effusions and consolidati on remain. Camron Mason MD on June 18, 2016 at 4:17 Board Certified Radiologist. This report was verified electronically.
[2016-06-18 05:37] LABS: BICARBONATE 27.1 MEQ/L (21.0-32.0); POTASSIUM 3.6 MEQ/L (3.5-5.1)
[2016-06-18] MEDS: PANTOPRAZOLE SODIUM 40 MG VIAL IV SCH (07:59)
[2016-06-18] MEDS: CHLORHEXIDINE 0.12% (ORAL KIT) 15 ML CUP MT SCH ×2 (07:59→20:00)
[2016-06-18] MEDS: hydrALAZINE HCL 25 MG TAB PO SCH ×3 (08:00→18:00)
[2016-06-18] MEDS: DOCUSATE SODIUM 100 MG/10 ML UDC PO SCH ×2 (08:00→20:27)
[2016-06-18] MEDS: SODIUM CHLORIDE 0.9% FLUSH 5 ML FLUSH IV FLUSH SCH ×2 (08:00→20:21)
[2016-06-18] MEDS: cloNIDine HCL 0.1 MG TAB PO SCH ×3 (08:00→18:00)
[2016-06-18] MEDS: CALCIUM ACETATE 667 MG CAP NG SCH ×3 (08:00→18:00)
[2016-06-18] MEDS: NEOMYCIN/POLYMYXIN/BACITRACIN OINT 15 GM TUBE TOPICAL SCH ×2 (08:01→20:26)
[2016-06-18] MEDS: GELATIN 12 MM/7 MM FOAM TOP PRN (08:18)
[2016-06-18] MEDS: SODIUM CHLOR 0.9% 1000 ML INJ 1,000 ML IV PRN ×2 (08:18)
[2016-06-18 08:26] LABS: HEMATOCRIT 22.3 % (39.0-51.0); MEAN CELL VOLUME 88.2 FL (80.0-100.0); MEAN CORPUSCULAR HEMOGLOBIN 30.2 PG (27.0-34.0); MEAN CORPUSCULAR HGB CONC 34.2 % (32.0-36.0); PLATELET COUNT 162 TH/MM3 (150-450); RED BLOOD COUNT 2.53 MIL/MM3 (4.50-5.90); RED CELL DISTRIBUTION WIDTH 14.9 % (11.6-17.2); REVIEW FLAG FINAL; WHITE BLOOD COUNT 9.4 TH/MM3 (4.0-11.0)
--- NOTE | 2016-06-18 11:04 | HHI.CCPN ---
Subjective Remarks/Hospital Course 05/28: 60 yo AAM with PMH of HTN, stroke without residual deficit, DM, nonischemic cardiomyopathy (EF 40% and stage I diastolic dysfunction) Cocaine abuse, Hepatitis C, ESRD on HD T/R/Sat who presents to [facility] for 2 day history of SOB. He reported symptoms started 1/ after he received hemodialysis. He reported a nonproductive cough without fevers, chills, or chest pain. His workup revealed a normal white count and CXR that demonstrated RLL consolidation. His potassium was 6.8. While preparations were being made to administer medications to address his hyperkalemia he developed bradycardia and PEA arrest. He underwent CPR and received epinephrine and 1 amp of bicarbonate. It was return of spontaneous circulation after 8 minutes. He was intubated by the emergency department physician Dr. Clancy. Dr. Francisco with nephrology was consulted and he made arrangements for urgent dialysis which is taking place currently. Target removal 3.8 L per HD RN. Postintubation CXR demonstrates R base infiltrate but also appears there is right pleural effusion. Influenza screen negative. Receive Zosyn and azithromycin in the emergency department. 05/29: Sedated, arousable, not following commands, orally intubated on mechanical ventilation. Gets agitated on lightening sedation and has a strong gag reflex. 05/30: Sedated, arousable, not following commands. Remains orally intubated on mechanical ventilation. Failed C Pap trial today. Dialyzed earlier. 05/31: Sedated/encephalopathic on lightening sedation, not following commands. Remains orally intubated on mechanical ventilation. Failed C Pap trials yesterday. 2-D echo just being completed today. 06/01 No events overnight. On Precedex drip unresponsive and doesn't follow commands. Afebrile. 06/02 Patient s/p HD yesterday with removal 1.5L , on Precedex infusion for sedation. 06/03 No events overnight. Sedated with fentanyl and intubated. s/p HD yesterday with removal 1.5L. 06/04 Patient remains sedated and intubated. Afebrile. Did not tolerate CPAP trials yesterday as he became tachypneic. 06/05 Patient s/p HD yesterday with removal 2L. Sedated with Fentanyl and intubated. Afebrile. Patient gets very agitated and restless when sedation is weaned off. 06/06 Patient is sedated with Fentanyl placed on Diprivan as well last night. Gets agitated and tachypneic on CPAP trials. s/p HD yesterday with removal 2L. 06/07: Remains sedated/encephalopathic, orally intubated on mechanical ventilation. Failed C Pap trials yesterday. 06/08: Remains sedated/encephalopathic, orally intubated on mechanical ventilation. Gets agitated on lightening sedation however not following commands. We'll attempt Precedex and titrate down on fentanyl/propofol 06/09: Remains sedated/encephalopathic, orally intubated on mechanical ventilation. On Precedex/propofol/fentanyl. Will attempt transitioning to Precedex alone to control agitation for C Pap trials. 06/10: Still requiring Precedex/propofol and fentanyl for CPAP trials. Patient continues to be extremely agitated and currently unable to extubate. Not following commands. Positive BM. Tolerating tube feeds. Afebrile. 06/11: On Precedex drip currently. -3 L of hemodialysis. Moving all 4 extremities but not following commands. 06/12: no changes. plan for PEG and Trach tomorrow. 06/13: plan for trach today. discussed with health care proxy and she still has concerns about possible trach. will touch base with palliative care. have talked with Dr. Lee from trauma, and plan for trach at some point depending on his schedule and per family discussions. 06/14: plan for trach today. significant bleeding from around PEG site. GI aware. 2 units prbc ordered. coags ordered. 0.3mcg/kg DDAVP ordered. 06/15: trach yesterday by Dr. Lee. trach site and PEG site with ongoing oozing despite FFP, platelets, DDAVP. I talked with Dr. Francisco and he is ok with iv contrast for imaging if needed, given that this is ESRD with no hope of renal recovery. 06/16: Continues to oozing from tracheostomy site. Packed with Surgicel but continues to ooze. No oozing from PEG tube site. Currently nothing by mouth. 2 bowel movements. Awake and does follow commands Subjective 06/17: Afebrile. No more bleeding from tracheostomy site. PEG site intact. Positive BM. Awake and following commands. 06/18: On CPAP, getting HD. Follows commands. Trial of TP today Objective Vital Signs Date Time Temp Pulse Resp B/P Pulse Ox O2 Delivery O2 Flow Rate FiO2 06/18/16 10:00 90 06/18/16 08:00 40 06/18/16 08:00 98.3 16 176/79 100 Intake and Output 06/17/16 06/17/16 06/18/16 08:00 16:00 00:00 Intake Total 758 ml 613 ml 881 ml Output Total 250 ml 105 ml 275 ml Balance 508 ml 508 ml 606 ml Result Diagram: 06/18/16 0703 06/18/16 0446 Other Results Microbiology Date/Time Procedure Status Source Growth 06/15/16 15:10 Stool Occult Blood (FLORES) - Final Complete Stool Stool HEMOCCULT POSITIVE Imaging Last Impressions Chest X-Ray 06/16/16 0600 Signed Impressions: Service Date/Time: May 04:06 - CONCLUSION: Increasing bibasilar infiltrates. Free air under right hemidiaphragm. Dudley Akbar MD Abdomen X-Ray 06/16/16 0000 Signed Impressions: Service Date/Time: May 09:12 - CONCLUSION: Apparent appropriate placement of gastric tube placement. Amaris Rosenberg MD Abdomen/Pelvis CT 06/15/16 0000 Signed Impressions: Service Date/Time: Wednesday, June 15, 2016 13:16 - CONCLUSION: Significant free intraperitoneal air. Consolidative changes in both bases with small bilateral pleural effusions. Mikhail Abrams MD FACR Brain MRI 06/10/16 0000 Signed Impressions: Service Date/Time: Friday, June 10, 2016 20:14 - CONCLUSION: 1. Mild chronic-appearing ischemic changes in the periventricular white matter slightly progressed from 2014. No recent infarct, mass effect or midline shift. No hydrocephalus. Lakhwinder Pringle MD Liver Ultrasound 06/01/16 0000 Signed Impressions: Service Date/Time: Wednesday, June 01, 2016 15:38 - CONCLUSION: 1. Bilateral pleural effusions. 2. Thick-walled gallbladder with minimal pericholecystic fluid. If there is clinical concern for acute cholecystitis a hepatobiliary scan may be helpful to confirm cystic duct obstruction. 3. Minimal ascites. 4. Echogenic atrophic right kidney. 5. Mild nonspecific prominence of the main pancreatic duct. Enzo Price MD Head CT 05/29/16 0000 Signed Impressions: Service Date/Time: Sunday, May 29, 2016 03:03 - CONCLUSION: Age- appropriate atrophy, stable from prior in September 2015. No acute findings. Earnest Torre MD Lower Extremity Ultrasound 05/28/16 0000 Signed Impressions: Service Date/Time: Saturday, May 28, 2016 22:27 - CONCLUSION: Negative for deep venous thrombosis bilateral lower extremity. Earnest Torre MD Objective Remarks GENERAL: 60 yo AA male, critically ill, s/p trach and PEG tube SKIN: Warm and dry. No rash HEAD: Normocephalic. EYES: Pupils minimally reactive at 2 mm bilaterally. No scleral icterus. No injection or drainage. NECK: Supple, trachea midline. No JVD. trach in place with dressings that are saturated with blood around the trach. CARDIOVASCULAR: Regular rate and rhythm with S1, S2. No S4. II/ systolic murmur at the apex RESPIRATORY: Breath sounds equal bilaterally. Few crackles appreciate the bases. No accessory muscle use. GASTROINTESTINAL: Abdomen soft, non-tender, nondistended. Clean dry and intact PEG site. MUSCULOSKELETAL: No disc and peripheral edema. Palpable thrill left AV fistula. Neuro: Currently arousable and will nod head appropriately to simple questions. Moves all 4 extremities equally and spontaneous. A/P Assessment and Plan NEURO: Acute encephalopathy, post cardiac arrest. History of stroke without residual deficit (per friend's report) History of cocaine abuse Posttraumatic stress disorder On as needed fentanyl for pain management. Precedex is off Neurologically much improved EEG 06/12 revealed mild sleep. No seizure activity noted. MRI brain revealed chronic vascular changes. No acute findings Neuro has followed peripherally-Dr. Wilks RESP: Acute respiratory failure Healthcare associated pneumonia Intubated in ED 05/28/16 following cardiac arrest ACV ventilation 12/500/5/40. Tolerating CPAP, trial of TP today Duoneb q6 hours. Albuterol q2 prn. Ventilator Bundle. Daily SBT as leana. -- s/p trach 06/14. Tracheotomy site packed with Surgicel. Dr. Lee notified 06/16 and placed 2 sutures. No further bleeding. CV: Cardiac arrest, secondary to hyperkalemia Nonischemic cardiomyopathy secondary to HTN, cocaine abuse Hypertension Elevated Troponin: ? NSTEMI Monitor HR and BP keep MAP>65mmHg Continue home meds: Hydralazine 25 tid. Clonidine 0.1 tid., Lopressor 25mg Q6 ( 100 mg twice a day at home) ASA 81 mg daily will be continued. Echo 05/31: EF 25-30%, no RWMA. Mild MR/TR. MEGAN 36 mmHg cardiac cath 12/09/2012 - EF 40%, normal coronaries. Elevated troponin, cardiac arrest. Per cardiology-no intervention planned. GI: Hepatitis C Elevated LFT Free air - likely secondary to EGD/tube feeding insufflation Daily holding TF-Nepro@40ml/hr Monitor LFT's: Trending down US liver: Bilateral pleural effusions. Thick-walled gallbladder with minimal pericholecystic fluid. Minimal ascites. Echogenic atrophic right kidney. Mild nonspecific prominence of the main pancreatic duct. Status post Gastrografin/PEG tubing cracks location. status post suture by Dr. Zander Tabares. No actively from PEG site currently Protonix for GI prophylaxis Colace for bowel regimen FEN/RENAL: ESRD Acute severe hyperkalemia - resolved Hyperphosphatemia Intermittent hemodialysis per nephrology (Dr. Francisco) Emergent HD 05/28 due to potassium of 6.8 with bradycardia and cardiac arrest. Monitor renal function, I/O's, avoid nephrotoxins. s/p HD today Continue PhosLo 667 mg 3 times a day ID: Acute healthcare associated pneumonia Received Zosyn and azithromycin in the emergency department 05/28. s/p Zosyn 2.25 g IV every 8 hours 05/29 - 06/12. Azithro x 10 days.05/28 nasal washing negative for Influenza. continue to monitor Pertinent cultures 05/28 - blood cultures 2 - 1 out of 2 corynebacterium not Jk 05/29 Sputum- beta strep not A HEME: Anemia of acute blood loss from PEG tube Thrombocytopenia 1 unit prbc, 1 ffp, 1 plt. DDAVP given 06/15 Given 1 unit PRBC 06/16 Coags within normal limits Received 16 mg DDAVP and 5000 mg amicar Monitor CBC. Currently 7.8 Dr. Kevin/hematology following. Von Willebrand factor pending ENDO: Diabetes mellitus Medium dose Insulin sliding scale with bedside glucose every 6 hours PROPH: hold pharmacologic DVT prophylaxis in the setting of active bleeding. Protonix 40 mg IV daily for stress ulcer prophylaxis. Doppler US LE negative for DVT ACCESS: Peripheral IV providing adequate access at this time. Left AV fistula accessed for hemodialysis Full code Palliative care is following to assist with deciding goals of therapy. Critical Care: The total critical care time was 30 minutes. Time to perform other separately billable procedures was not included in the critical care time. Sanchez Wilkinson MD Jun 18, 2016 11:04
--- NOTE | 2016-06-18 12:36 | HHI.NPPN ---
Subjective General Problems: Anemia Renal Failure: Chronic, End Stage Renal Disease Interval History no new issues. To have dialysis today. Bleeding has stopped. Review of Systems General General Remarks unable to evaluate due to mental status Objective Data Data 06/17/16 06/18/16 19:00 07:00 Intake Total 613 ml 1381 ml Output Total 105 ml 475 ml Balance 508 ml 906 ml IV Total 170 ml 381 ml Tube Feeding 343 ml 750 ml Tube Irrigant 100 ml Other 250 ml Output Urine Total 30 ml 75 ml Stool Total 75 ml 400 ml Vital Signs Date Time Temp Pulse Resp B/P Pulse Ox O2 Delivery O2 Flow Rate FiO2 06/18/16 10:00 90 06/18/16 08:00 40 06/18/16 08:00 83 06/18/16 08:00 98.3 85 16 176/79 100 06/18/16 07:53 98 40 06/18/16 07:52 40 06/18/16 06:00 79 06/18/16 04:55 100 40 06/18/16 04:00 83 06/18/16 04:00 40 06/18/16 04:00 98.0 83 16 112/56 100 06/18/16 02:00 74 06/18/16 01:39 100 40 06/18/16 00:00 83 06/18/16 00:00 97.9 83 16 149/71 100 06/18/16 00:00 40 06/17/16 22:00 85 06/17/16 21:10 100 40 06/17/16 20:00 40 06/17/16 20:00 82 06/17/16 20:00 98.7 82 16 140/65 100 06/17/16 18:00 75 06/17/16 16:20 100 40 06/17/16 16:00 40 06/17/16 16:00 98.9 81 12 130/72 100 06/17/16 16:00 81 06/17/16 14:00 85 06/17/16 12:39 100 40 -: 06/18/16 0703 06/18/16 0446 Tubes & Lines Comment trach, PEG Drip Comment Precedex Physical Exam General Appearance: Well Developed, Well Nourished, Comfortable Eyes Eye Exam: Pupils Equal, Pupils Reactive Neck Neck Exam: Neck Supple Pulmonary Resp Exam: Breath Sounds Equal, Crackles, Decreased Bases, Diminished Breath Sounds Resp Remarks vented breath sounds heard bilaterally. Cardiology CV Exam: Regular, Normal Sinus Rhythm, Good Perfusion Gastrointestinal/Abdomen GI Exam: Soft, Non-Tender, Bowel Sounds Present, Non-Distended Musculoskeletal MS Exam: Joints Intact, Normal Tone Integumentary Skin Exam: Clear, Warm, Dry, Intact Extremeties Extremities Exam: Pedal Pulses Palpable, Trace Edema Neurologic Neuro Exam: Unresponsive, Sedated Assessment/Plan Discussed Condition With: Patient Assessment Summary: Anemia of CKD, Hypertension, End Stage Renal Disease Electrolyte Assessment: Hypocalcemia Problem List: (1) ESRD on dialysis Plan: Continue dialysis T--Mon, dialysis is scheduled for today. monitor AVF function intermittent metabolic profile, potassium corrected to normal with dialysis continue Phoslo with tube feeding, evaluate phosphorus level periodically. It is currently acceptable. BP improved monitor fluid volume status (2) Anemia Plan: hemoglobin normally stable resolving acute blood loss from PEG/trach received 3 units PRBC, 1 plasma, and 1 platelet since 06/14. Hemoglobin is 7.6, stable. Epogen with dialysis will be continued. (3) Hypertension Plan: BP stable He is on metoprolol, hydralazine, clonidine with hold parameters (4) DM (diabetes mellitus) Plan: continue insulin coverage goal to maintain blood glucose between 140 and 180 off D10 , tube feeding was resumed (5) Hyperkalemia Plan: corrected with extra dialysis treatment on 06/13 monitor for recurrence (6) NSTEMI (non-ST elevated myocardial infarction) Plan: Troponin I elevated post cardiac arrest, chest compressions. he had catheterization in January 2016, normal coronary arteries (7) Elevated LFTs Plan: improved. (8) Cocaine abuse Plan: cessation recommended (9) Encephalopathy Plan: vent management, s/p trach placement poor prognosis Problem Qualifiers (1) Hypertension: Qualified Code: I10 - Essential hypertension (2) DM (diabetes mellitus): Qualified Code: E11.22 - Type 2 diabetes mellitus with diabetic chronic kidney disease, unspecified CKD stage, unspecified envelope folder insulin use status Chetan Francisco MD Jun 18, 2016 12:35
[2016-06-18] MEDS: PROPOFOL 1000 MG/100 ML INJ 100 ML IV SCH (20:24)
[2016-06-19] VITALS (18 sets, daily range): BP systolic 113–142; BP diastolic 55–76; PULSE 69–96; RESP 12–21; TEMP 97.8–98.3; O2SAT 99–100
[2016-06-19] MEDS: INSULIN NovoLIN REGULAR SUPPLEMENTAL SCALE SQ SCH ×4 (03:00→19:26)
[2016-06-19] MEDS: CHLORHEXIDINE GLUCONATE 2 % 1 PACK (2 CLOTHS) TOP SCH (03:40)
[2016-06-19 04:59] LABS: ALKALINE PHOSPHATASE 105 U/L (45-117); ALT (GPT) 22 U/L (12-78); ANION GAP 9 MEQ/L (5-15); AST (GOT) 54 U/L (15-37); BICARBONATE 30.3 MEQ/L (21.0-32.0); BLOOD UREA NITROGEN 32 MG/DL (7-18); CHLORIDE 99 MEQ/L (98-107); GLOMERULAR FILTRATION RATE 16 ML/MIN (>89); MAGNESIUM 1.8 MG/DL (1.5-2.5); POTASSIUM 3.4 MEQ/L (3.5-5.1); SODIUM (NA) 138 MEQ/L (136-145); TOTAL BILIRUBIN ADULT 0.5 MG/DL (0.2-1.0)
[2016-06-19] MEDS: METOPROLOL TARTRATE 25 MG TAB PO/NG SCH ×4 (05:21→23:26)
[2016-06-19] MEDS: DEXMEDETOMIDINE INJ 1,000 MCG in SODIUM CHLOR 0.9% 250 ML INJ 240 ML IV SCH (05:21)
[2016-06-19] MEDS: CHLORHEXIDINE 0.12% (ORAL KIT) 15 ML CUP MT SCH ×2 (08:00→19:25)
[2016-06-19] MEDS: NEOMYCIN/POLYMYXIN/BACITRACIN OINT 15 GM TUBE TOPICAL SCH ×2 (09:00→19:26)
[2016-06-19] MEDS: hydrALAZINE HCL 25 MG TAB PO SCH ×3 (09:48→18:00)
[2016-06-19] MEDS: SODIUM CHLORIDE 0.9% FLUSH 5 ML FLUSH IV FLUSH SCH ×2 (09:48→19:26)
[2016-06-19] MEDS: cloNIDine HCL 0.1 MG TAB PO SCH ×3 (09:48→18:00)
[2016-06-19] MEDS: CALCIUM ACETATE 667 MG CAP NG SCH ×3 (09:48→18:00)
[2016-06-19] MEDS: PANTOPRAZOLE SODIUM 40 MG VIAL IV SCH (09:49)
[2016-06-19] MEDS: DOCUSATE SODIUM 100 MG/10 ML UDC PO SCH ×2 (09:49→19:25)
--- NOTE | 2016-06-19 10:09 | HHI.NPPN ---
Subjective General Problems: Anemia Renal Failure: Chronic, End Stage Renal Disease Interval History on the ventilator. Follows some commands. Review of Systems General General Remarks unable to evaluate due to mental status Objective Data Data 06/18/16 06/19/16 19:00 07:00 Intake Total 540 ml 1230 ml Output Total 3100 ml 165 ml Balance -2560 ml 1065 ml Intake Oral 0 ml IV Total 140 ml 460 ml Tube Feeding 200 ml 650 ml Other 200 ml 120 ml Output Urine Total 0 ml 115 ml Stool Total 100 ml 50 ml Hemodialysis 3000 ml Vital Signs Date Time Temp Pulse Resp B/P Pulse Ox O2 Delivery O2 Flow Rate FiO2 06/19/16 08:10 40 06/19/16 08:10 100 40 06/19/16 06:00 69 06/19/16 04:18 100 40 06/19/16 04:00 40 06/19/16 04:00 97.9 78 12 142/67 100 06/19/16 04:00 78 06/19/16 02:00 82 06/19/16 01:18 100 40 06/19/16 00:00 97.8 80 12 113/55 100 06/19/16 00:00 80 06/19/16 00:00 40 06/18/16 23:20 100 40 06/18/16 22:00 96 06/18/16 20:00 94 06/18/16 20:00 40 06/18/16 20:00 98.0 94 16 111/71 100 06/18/16 19:57 100 40 06/18/16 18:37 86 06/18/16 16:00 40 06/18/16 16:00 98.3 95 16 126/76 99 06/18/16 16:00 90 06/18/16 14:00 90 06/18/16 12:00 98.3 82 18 116/90 100 06/18/16 12:00 83 06/18/16 12:00 40 06/18/16 11:30 100 40 -: 06/18/16 0703 06/19/16 0421 Tubes & Lines Comment trach, PEG Drip Comment Precedex Physical Exam General Appearance: Well Developed, Well Nourished, Comfortable Eyes Eye Exam: Pupils Equal, Pupils Reactive Neck Neck Exam: Neck Supple Pulmonary Resp Exam: Breath Sounds Equal, Crackles, Decreased Bases, Diminished Breath Sounds Resp Remarks vented breath sounds heard bilaterally. Cardiology CV Exam: Regular, Normal Sinus Rhythm, Good Perfusion Gastrointestinal/Abdomen GI Exam: Soft, Non-Tender, Bowel Sounds Present, Non-Distended Musculoskeletal MS Exam: Joints Intact, Normal Tone Integumentary Skin Exam: Clear, Warm, Dry, Intact Extremeties Extremities Exam: Pedal Pulses Palpable, Trace Edema Neurologic Neuro Exam: Unresponsive, Sedated Assessment/Plan Discussed Condition With: Patient Assessment Summary: Anemia of CKD, Hypertension, End Stage Renal Disease Electrolyte Assessment: Hypocalcemia Problem List: (1) ESRD on dialysis Plan: Continue dialysis T-Th-Mon, had dialysis yesterday. monitor AVF function Monitor electrolytes. continue PhosLo with tube feeding, evaluate phosphorus level periodically. It is currently acceptable. BP improved monitor fluid volume status (2) Anemia Plan: CBC pending today. Received large volume blood transfusion when he was actively bleeding from PEG tube site and Tracheostomy site. Bleeding has subsided. Continue Epogen with dialysis. (3) Hypertension Plan: BP stable He is on metoprolol, hydralazine, clonidine with hold parameters (4) DM (diabetes mellitus) Plan: continue insulin coverage goal to maintain blood glucose between 140 and 180 off D10 , tube feeding was resumed (5) Hyperkalemia Plan: corrected with extra dialysis treatment on 06/13 monitor for recurrence (6) NSTEMI (non-ST elevated myocardial infarction) Plan: Troponin I elevated post cardiac arrest, chest compressions. he had catheterization in January 2016, normal coronary arteries (7) Elevated LFTs Plan: improved. (8) Cocaine abuse Plan: Cessation has been recommended. I have discussed with his girlfriend. (9) Encephalopathy Plan: vent management, s/p trach placement Problem Qualifiers (1) Hypertension: Qualified Code: I10 - Essential hypertension (2) DM (diabetes mellitus): Qualified Code: E11.22 - Type 2 diabetes mellitus with diabetic chronic kidney disease, unspecified CKD stage, unspecified fdc insulin use status Chetan Francisco MD Jun 19, 2016 10:09
[2016-06-19 10:47] LABS: AUTOMATED NEUTROPHIL # 6.6 TH/MM3 (1.8-7.7); BASOPHIL # 0.1 TH/MM3 (0-0.2); BASOPHIL % 0.9 % (0.0-2.0); EOSINOPHIL # 0.3 TH/MM3 (0-0.4); EOSINOPHIL % 3.1 % (0.0-4.0); HEMATOCRIT 24.3 % (39.0-51.0); HEMO FLAGS DIFF FINAL; LYMPH % 7.9 % (9.0-44.0); LYMPHOCYTE # 0.7 TH/MM3 (1.0-4.8); MEAN CELL VOLUME 88.2 FL (80.0-100.0); MEAN CORPUSCULAR HEMOGLOBIN 30.5 PG (27.0-34.0); MEAN CORPUSCULAR HGB CONC 34.6 % (32.0-36.0); MONO % 9.6 % (0.0-8.0); NEUT % 78.5 % (16.0-70.0); PLATELET COUNT 198 TH/MM3 (150-450); RED BLOOD COUNT 2.76 MIL/MM3 (4.50-5.90); RED CELL DISTRIBUTION WIDTH 15.2 % (11.6-17.2); WHITE BLOOD COUNT 8.3 TH/MM3 (4.0-11.0)
--- NOTE | 2016-06-19 14:15 | HHI.CCPN ---
Subjective Remarks/Hospital Course 05/28: 60 yo AAM with PMH of HTN, stroke without residual deficit, DM, nonischemic cardiomyopathy (EF 40% and stage I diastolic dysfunction) Cocaine abuse, Hepatitis C, ESRD on HD T/R/Sat who presents to [facility] ED for 2 day history of SOB. He reported symptoms started 1/ after he received hemodialysis. He reported a nonproductive cough without fevers, chills, or chest pain. His workup revealed a normal white count and CXR that demonstrated RLL consolidation. His potassium was 6.8. While preparations were being made to administer medications to address his hyperkalemia he developed bradycardia and PEA arrest. He underwent CPR and received epinephrine and 1 amp of bicarbonate. It was return of spontaneous circulation after 8 minutes. He was intubated by the emergency department physician Dr. Clancy. Dr. Francisco with nephrology was consulted and he made arrangements for urgent dialysis which is taking place currently. Target removal 3.8 L per HD RN. Postintubation CXR demonstrates R base infiltrate but also appears there is right pleural effusion. Influenza screen negative. Receive Zosyn and azithromycin in the emergency department. 05/29: Sedated, arousable, not following commands, orally intubated on mechanical ventilation. Gets agitated on lightening sedation and has a strong gag reflex. 05/30: Sedated, arousable, not following commands. Remains orally intubated on mechanical ventilation. Failed C Pap trial today. Dialyzed earlier. 05/31: Sedated/encephalopathic on lightening sedation, not following commands. Remains orally intubated on mechanical ventilation. Failed C Pap trials yesterday. 2-D echo just being completed today. 06/01 No events overnight. On Precedex drip unresponsive and doesn't follow commands. Afebrile. 06/02 Patient s/p HD yesterday with removal 1.5L , on Precedex infusion for sedation. 06/03 No events overnight. Sedated with fentanyl and intubated. s/p HD yesterday with removal 1.5L. 06/04 Patient remains sedated and intubated. Afebrile. Did not tolerate CPAP trials yesterday as he became tachypneic. 06/05 Patient s/p HD yesterday with removal 2L. Sedated with Fentanyl and intubated. Afebrile. Patient gets very agitated and restless when sedation is weaned off. 06/06 Patient is sedated with Fentanyl placed on Diprivan as well last night. Gets agitated and tachypneic on CPAP trials. s/p HD yesterday with removal 2L. 06/07: Remains sedated/encephalopathic, orally intubated on mechanical ventilation. Failed C Pap trials yesterday. 06/08: Remains sedated/encephalopathic, orally intubated on mechanical ventilation. Gets agitated on lightening sedation however not following commands. We'll attempt Precedex and titrate down on fentanyl/propofol 06/09: Remains sedated/encephalopathic, orally intubated on mechanical ventilation. On Precedex/propofol/fentanyl. Will attempt transitioning to Precedex alone to control agitation for C Pap trials. 06/10: Still requiring Precedex/propofol and fentanyl for CPAP trials. Patient continues to be extremely agitated and currently unable to extubate. Not following commands. Positive BM. Tolerating tube feeds. Afebrile. 06/11: On Precedex drip currently. -3 L of hemodialysis. Moving all 4 extremities but not following commands. 06/12: no changes. plan for PEG and Trach tomorrow. 06/13: plan for trach today. discussed with health care proxy and she still has concerns about possible trach. will touch base with palliative care. have talked with Dr. Lee from trauma, and plan for trach at some point depending on his schedule and per family discussions. 06/14: plan for trach today. significant bleeding from around PEG site. GI aware. 2 units prbc ordered. coags ordered. 0.3mcg/kg DDAVP ordered. 06/15: trach yesterday by Dr. Lee. trach site and PEG site with ongoing oozing despite FFP, platelets, DDAVP. I talked with Dr. Francisco and he is ok with iv contrast for imaging if needed, given that this is ESRD with no hope of renal recovery. 06/16: Continues to oozing from tracheostomy site. Packed with Surgicel but continues to ooze. No oozing from PEG tube site. Currently nothing by mouth. 2 bowel movements. Awake and does follow commands Subjective 06/17: Afebrile. No more bleeding from tracheostomy site. PEG site intact. Positive BM. Awake and following commands. 06/18: On CPAP, getting HD. Follows commands. Trial of TP today 06/19: No acute events overnight tolerating C Pap. Unable to place on T piece yesterday he developed tidal volumes and tachypnea. Continues to follow commands Objective Vital Signs Date Time Temp Pulse Resp B/P Pulse Ox O2 Delivery O2 Flow Rate FiO2 06/19/16 12:00 78 06/19/16 12:00 40 06/19/16 11:41 100 06/19/16 04:00 97.9 12 142/67 Intake and Output 06/18/16 06/18/16 06/19/16 08:00 16:00 00:00 Intake Total 500 ml 540 ml 720 ml Output Total 200 ml 3100 ml 125 ml Balance 300 ml -2560 ml 595 ml Result Diagram: 06/19/16 0932 06/19/16 0421 Imaging Last Impressions Chest X-Ray 06/16/16 0600 Signed Impressions: Service Date/Time: May 04:06 - CONCLUSION: Increasing bibasilar infiltrates. Free air under right hemidiaphragm. Dudley Akbar MD Abdomen X-Ray 06/16/16 0000 Signed Impressions: Service Date/Time: May 09:12 - CONCLUSION: Apparent appropriate placement of gastric tube placement. Amaris Rosenberg MD Abdomen/Pelvis CT 06/15/16 0000 Signed Impressions: Service Date/Time: Wednesday, June 15, 2016 13:16 - CONCLUSION: Significant free intraperitoneal air. Consolidative changes in both bases with small bilateral pleural effusions. Mikhail Abrams MD FACR Brain MRI 06/10/16 0000 Signed Impressions: Service Date/Time: Friday, June 10, 2016 20:14 - CONCLUSION: 1. Mild chronic-appearing ischemic changes in the periventricular white matter slightly progressed from 2014. No recent infarct, mass effect or midline shift. No hydrocephalus. Lakhwinder Pringle MD Liver Ultrasound 06/01/16 0000 Signed Impressions: Service Date/Time: Wednesday, June 01, 2016 15:38 - CONCLUSION: 1. Bilateral pleural effusions. 2. Thick-walled gallbladder with minimal pericholecystic fluid. If there is clinical concern for acute cholecystitis a hepatobiliary scan may be helpful to confirm cystic duct obstruction. 3. Minimal ascites. 4. Echogenic atrophic right kidney. 5. Mild nonspecific prominence of the main pancreatic duct. Enzo Price MD Head CT 05/29/16 0000 Signed Impressions: Service Date/Time: Sunday, May 29, 2016 03:03 - CONCLUSION: Age- appropriate atrophy, stable from prior in September 2015. No acute findings. Earnest Torre MD Lower Extremity Ultrasound 05/28/16 0000 Signed Impressions: Service Date/Time: Saturday, May 28, 2016 22:27 - CONCLUSION: Negative for deep venous thrombosis bilateral lower extremity. Earnest Torre MD Objective Remarks GENERAL: 60 yo AA male, critically ill, s/p trach and PEG tube SKIN: Warm and dry. No rash HEAD: Normocephalic. EYES: Pupils minimally reactive at 2 mm bilaterally. No scleral icterus. No injection or drainage. NECK: Supple, trachea midline. No JVD. trach in place CARDIOVASCULAR: Regular rate and rhythm with S1, S2. No S4. II/ systolic murmur at the apex RESPIRATORY: Breath sounds equal bilaterally. Few crackles appreciate the bases. No accessory muscle use. GASTROINTESTINAL: Abdomen soft, non-tender, nondistended. Clean dry and intact PEG site. MUSCULOSKELETAL: No disc and peripheral edema. Palpable thrill left AV fistula. Neuro: Currently arousable and will nod head appropriately to simple questions. Moves all 4 extremities equally and spontaneous. A/P Assessment and Plan NEURO: Acute encephalopathy, post cardiac arrest. History of stroke without residual deficit (per friend's report) History of cocaine abuse Posttraumatic stress disorder On as needed fentanyl for pain management. Precedex is off Neurologically much improved EEG 06/12 revealed mild sleep. No seizure activity noted. MRI brain revealed chronic vascular changes. No acute findings Neuro has followed peripherally-Dr. Wilks RESP: Acute respiratory failure Healthcare associated pneumonia Intubated in ED 05/28/16 following cardiac arrest Currently tolerating CPAP, trial of TP today Duoneb q6 hours. Albuterol q2 prn. Ventilator Bundle. Daily SBT as leana. -- s/p trach 06/14. Tracheotomy site packed with Surgicel. Dr. Lee notified 06/16 and placed 2 sutures. No further bleeding. CV: Cardiac arrest, secondary to hyperkalemia Nonischemic cardiomyopathy secondary to HTN, cocaine abuse Hypertension Elevated Troponin: ? NSTEMI Monitor HR and BP keep MAP>65mmHg Continue home meds: Hydralazine 25 tid. Clonidine 0.1 tid., Lopressor 25mg Q6 ( 100 mg twice a day at home) ASA 81 mg daily will be continued. Echo 05/31: EF 25-30%, no RWMA. Mild MR/TR. MEGAN 36 mmHg cardiac cath 12/09/2012 - EF 40%, normal coronaries. Elevated troponin, cardiac arrest. Per cardiology-no intervention planned. GI: Hepatitis C Elevated LFT Free air - likely secondary to EGD/tube feeding insufflation Daily TF-Nepro@50ml/hr Monitor LFT's: Trending down US liver: Bilateral pleural effusions. Thick-walled gallbladder with minimal pericholecystic fluid. Minimal ascites. Echogenic atrophic right kidney. Mild nonspecific prominence of the main pancreatic duct. Status post Gastrografin/PEG tubing cracks location. status post suture by Dr. Zander Tabares. No actively from PEG site currently Protonix for GI prophylaxis Colace for bowel regimen FEN/RENAL: ESRD Acute severe hyperkalemia - resolved Hyperphosphatemia Intermittent hemodialysis per nephrology (Dr. Francisco) Emergent HD 05/28 due to potassium of 6.8 with bradycardia and cardiac arrest. Monitor renal function, I/O's, avoid nephrotoxins. s/p HD today Continue PhosLo 667 mg 3 times a day ID: Acute healthcare associated pneumonia Received Zosyn and azithromycin in the emergency department 05/28. s/p Zosyn 2.25 g IV every 8 hours 05/29 - 06/12. Azithro x 10 days.05/28 nasal washing negative for Influenza. continue to monitor Pertinent cultures 05/28 - blood cultures 2 - 1 out of 2 corynebacterium not Jk 05/29 Sputum- beta strep not A HEME: Anemia of acute blood loss from PEG tube Thrombocytopenia 1 unit prbc, 1 ffp, 1 plt. DDAVP given 06/15 Given 1 unit PRBC 06/16 Coags within normal limits Received 16 mg DDAVP and 5000 mg amicar Monitor CBC. Currently 7.8 Dr. Kevin/hematology following. Von Willebrand factor pending ENDO: Diabetes mellitus Medium dose Insulin sliding scale with bedside glucose every 6 hours PROPH: holding pharmacologic DVT prophylaxis in the setting of active bleeding resume in 24 hours if no bleeding, resume today. Protonix 40 mg IV daily for stress ulcer prophylaxis. Doppler US LE negative for DVT ACCESS: Peripheral IV providing adequate access at this time. Left AV fistula accessed for hemodialysis Full code Palliative care is following to assist with deciding goals of therapy. Critical Care: The total critical care time was 30 minutes. Time to perform other separately billable procedures was not included in the critical care time. Sanchez Wilkinson MD Jun 19, 2016 14:15
[2016-06-19] MEDS: PROPOFOL 1000 MG/100 ML INJ 100 ML IV SCH (23:27)
[2016-06-20] VITALS (17 sets, daily range): BP systolic 108–173; BP diastolic 59–98; PULSE 88–116; RESP 14–28; TEMP 98–99.9; O2SAT 99–100
[2016-06-20] MEDS: HEPARIN SODIUM - SQ 10,000 UNITS/ML VIAL SQ SCH ×2 (02:00→13:07)
[2016-06-20] MEDS: INSULIN NovoLIN REGULAR SUPPLEMENTAL SCALE SQ SCH ×4 (02:10→21:00)
[2016-06-20] MEDS: CHLORHEXIDINE GLUCONATE 2 % 1 PACK (2 CLOTHS) TOP SCH (04:00)
--- NOTE | 2016-06-20 04:39 | RADRPT ---
EXAM DATE/TIME: 06/20/2016 02:52 [facility] COMPARISON: CHEST SINGLE AP, June 18, 2016, 2:55. INDICATIONS : Shortness of breath, possible pulmonary disease. MEDICAL HISTORY : Renal insufficiency. Stroke. Myocardial infarction. SURGICAL HISTORY : None. ENCOUNTER: Subsequent ACUITY: 2 weeks PAIN SCORE: Non-responsive. LOCATION: Bilateral chest FINDINGS: Mid and lower lung predominant bilateral airspace opacities persist but are improved. Small, bilatera l pleural effusions are likely, also improved. No pneumothorax. Heart size mildly enlarged unchanged. Trach collar again noted. CONCLUSION: Improving edema/infiltrates. Minh Aponte MD on June 20, 2016 at 4:37 Board Certified Radiologist. This report was verified electronically.
[2016-06-20] MEDS: METOPROLOL TARTRATE 25 MG TAB PO/NG SCH ×3 (05:07→18:20)
[2016-06-20 06:46] LABS: MEAN CORPUSCULAR HEMOGLOBIN 30.7 PG (27.0-34.0); MEAN CORPUSCULAR HGB CONC 35.3 % (32.0-36.0); PLATELET COUNT 178 TH/MM3 (150-450); RED CELL DISTRIBUTION WIDTH 14.6 % (11.6-17.2)
[2016-06-20 06:55] LABS: REVIEW FLAG FINAL
[2016-06-20 07:20] LABS: POTASSIUM 3.3 MEQ/L (3.5-5.1)
[2016-06-20 07:21] LABS: BICARBONATE 28.8 MEQ/L (21.0-32.0)
[2016-06-20] MEDS: PANTOPRAZOLE SODIUM 40 MG VIAL IV SCH (08:38)
[2016-06-20] MEDS: SODIUM CHLORIDE 0.9% FLUSH 5 ML FLUSH IV FLUSH SCH ×2 (08:38→21:36)
[2016-06-20] MEDS: CHLORHEXIDINE 0.12% (ORAL KIT) 15 ML CUP MT SCH ×2 (08:38→20:00)
[2016-06-20] MEDS: CALCIUM ACETATE 667 MG CAP NG SCH ×3 (08:38→18:20)
[2016-06-20] MEDS: NEOMYCIN/POLYMYXIN/BACITRACIN OINT 15 GM TUBE TOPICAL SCH ×2 (08:39→21:37)
[2016-06-20] MEDS: hydrALAZINE HCL 25 MG TAB PO SCH ×2 (08:39→13:07)
[2016-06-20] MEDS: DOCUSATE SODIUM 100 MG/10 ML UDC PO SCH ×2 (08:39→21:35)
[2016-06-20] MEDS: cloNIDine HCL 0.1 MG TAB PO SCH ×3 (08:39→18:20)
[2016-06-20] MEDS: PROPOFOL 1000 MG/100 ML INJ 100 ML IV SCH ×3 (09:15→21:35)
[2016-06-20] MEDS ORDERED: POTASSIUM CHLORIDE 20 MEQ CONTROLLED RELEASE TAB PO ONE (10:00)
--- NOTE | 2016-06-20 12:47 | PD.ONC.PN ---
Subjective Subjective Remarks Afebrile overnight. On mechanical ventilation via trach. Per nursing staff no bleeding overnight. Objective Data Date Time Temp Pulse Resp B/P Pulse Ox O2 Delivery O2 Flow Rate FiO2 06/20/16 11:19 100 40 06/20/16 08:03 40 06/20/16 08:00 113 06/20/16 08:00 98.6 113 28 120/64 100 06/20/16 08:00 99 T-piece 40 06/20/16 06:00 95 06/20/16 04:30 100 35 06/20/16 04:00 111 06/20/16 04:00 40 06/20/16 04:00 98.3 111 23 119/65 100 06/20/16 02:00 97 06/20/16 01:15 100 35 06/20/16 00:00 98.0 97 23 124/65 100 06/20/16 00:00 97 06/20/16 00:00 40 06/19/16 22:00 96 06/19/16 20:42 100 40 06/19/16 20:00 98.1 93 21 123/76 100 06/19/16 20:00 40 06/19/16 20:00 93 06/19/16 18:37 100 40 06/19/16 18:17 100 40 06/19/16 18:00 69 06/19/16 16:00 90 06/19/16 16:00 40 06/19/16 16:00 98.3 90 18 142/69 99 06/19/16 14:00 69 06/20/16 06/20/16 06/20/16 07:00 15:00 23:00 Intake Total 460 ml Output Total 40 ml Balance 420 ml Result Diagram: 06/20/16 0601 06/20/16 06 Laboratory Results Laboratory Tests Test 06/20/16 06:01 White Blood Count 7.0 TH/MM3 Red Blood Count 2.30 MIL/MM3 Hemoglobin 7.1 GM/DL Hematocrit 20.0 % Mean Corpuscular Volume 87.0 FL Mean Corpuscular Hemoglobin 30.7 PG Mean Corpuscular Hemoglobin 35.3 % Concent Red Cell Distribution Width 14.6 % Platelet Count 178 TH/MM3 Mean Platelet Volume 10.3 FL Sodium Level 136 MEQ/L Potassium Level 3.3 MEQ/L Chloride Level 96 MEQ/L Carbon Dioxide Level 28.8 MEQ/L Anion Gap 11 MEQ/L Blood Urea Nitrogen 48 MG/DL Creatinine 5.74 MG/DL Estimat Glomerular Filtration 12 ML/MIN Rate Random Glucose 95 MG/DL Calcium Level 8.7 MG/DL Imaging Studies Last 24 hours Impressions Chest X-Ray 06/20/16 0600 Signed Impressions: Service Date/Time: Monday, June 20, 2016 02:52 - CONCLUSION: Improving edema/infiltrates. Minh Aponte MD Administered Medications Medications (Trade) Dose Ordered Sig/Crispin Route PRN Reason Start Time Stop Time Status Last Admin Dose Admin Chlorhexidine Gluconate (Peridex 0.12% Liq) 15 ml BID@08,20 MT 05/29/16 08:00 06/20/16 08:38 IV Flush (NS Flush) 2 ml UNSCH PRN IV FLUSH FLUSH AFTER USING IV ACCESS 05/28/16 20:45 05/29/16 08:46 IV Flush (NS Flush) 2 ml BID IV FLUSH 05/28/16 21:00 06/20/16 08:38 Fentanyl Citrate (fentaNYL INJ) 50 mcg Q1H PRN IV PUSH Pain scale 6-10 &/or sedation 05/28/16 20:45 06/17/16 08:05 Pantoprazole Sodium (Protonix Inj) 40 mg DAILY IV 05/29/16 09:00 06/20/16 08:38 Miscellaneous Information 1 [id number] XX 05/28/16 20:45 05/29/16 08:46 Chlorhexidine Gluconate 3 pack 3 pack Taper DAILY@04 TOP 05/29/16 04:00 05/25/17 03:59 06/20/16 04:00 Propofol 100 ml @ 0 mls/hr TITRATE IV 05/28/16 20:45 06/20/16 09:15 Sodium Chloride 1,000 ml @ 0 mls/hr Q0M PRN IV For Prime & Rinse Back 05/28/16 20:53 06/18/16 08:18 Sodium Chloride 1,000 ml @ 200 mls/hr Q5H PRN IV WITH DIALYSIS 05/28/16 20:53 06/02/16 09:53 Sodium Chloride (NS 1000 ml Inj) 1,000 ml @ 0 mls/hr Q0M PRN IV WITH DIALYSIS 05/28/16 20:53 06/18/16 08:18 Albumin Human (Albumin 25% Inj) 25 gm UNSCH PRN IV WITH DIALYSIS 05/28/16 21:00 06/14/16 11:12 Heparin Sodium (Porcine) (Heparin Inj) UNSCH PRN .XX WITH DIALYSIS 05/28/16 21:00 05/30/16 13:08 Gelatin (Gelfoam 12 Mm/7 Mm Top) 1 foam UNSCH PRN TOP SEE LABEL COMMENTS 05/28/16 21:00 06/18/16 08:18 Aspirin (Ecotrin Ec) 81 mg DAILY PO 05/29/16 09:00 Hold 06/13/16 08:02 Hydralazine HCl (Apresoline) 25 mg TID PO 05/29/16 09:00 06/20/16 08:39 Clonidine (Catapres) 0.1 mg TID PO 05/29/16 09:00 06/20/16 08:39 Lorazepam (Ativan Inj) 2 mg Q4H PRN IV PUSH agitation 05/29/16 18:00 06/05/16 17:51 Metoprolol Tartrate (Lopressor) 25 mg Q6HR PO/NG 05/31/16 12:00 06/20/16 05:07 Calcium Acetate 667 mg 667 mg TID NG 05/31/16 13:00 06/20/16 08:38 Fentanyl Citrate (fentaNYL DRIP) 250 ml @ 0 mls/hr TITRATE IV 06/08/16 10:00 Hold 06/08/16 10:29 Neomycin/ Polymyxin/ Bacitracin (Neosporin Oint) 1 applic Q12HR TOPICAL 06/16/16 21:00 06/20/16 08:39 Docusate Sodium (Colace Liq) 100 mg BID PO 06/17/16 09:00 06/20/16 08:39 Heparin Sodium (Porcine) (Heparin Inj) 5,000 units Q12H SQ 06/20/16 02:00 06/20/16 02:00 Objective Remarks GENERAL: Trach in place, sitting up in C chair SKIN: Warm and dry. HEAD: Normocephalic. EYES: No injection or drainage. NECK: Supple, trachea midline. trach in place, no bleeding. CARDIOVASCULAR: +S1/S2 RESPIRATORY: anterior buitrago, occasional rhonchi. on mechanical ventilation via trach GASTROINTESTINAL: Abdomen soft. G-tube in place, no bleeding. EXTREMITIES: No cyanosis. Assessment/Plan Problem List: (1) Bleeding from gastrostomy tube site Status: Acute Plan: --06/20: no bleeding today. hgb 7.1 --likely has bleeding due to platelet dysfunction from end-stage renal disease. --s/p 1 unit platelets and one unit FFP. --s/p16 mcg of DDAVP x 2days. --s/p vitamin-K 5 mg, 06/14 --s/p Amicar x 1 06/15, 06/16. --Suture was placed on PEG and bleeding stopped but still oozing around the trach. --No obvious DIC noted. --ASA and heparin stopped Assessment 60-year-old male who first presented to the hospital with shortness of breath and cough. went into cardiac arrest and in IMC since that time. --intubated on 05/28/2016. also developed encephalopathy. --PEG tube on 06/13/2016 ---tracheostomy ~06/15/16 Respiratory failure. Encephalopathy. End-stage renal disease on dialysis. h/o Hepatitis C Plan 1. monitor CBC, transfuse as needed 2. hematology will sign off. please call or reconsult if needed. Attending Statement The exam, history, and the medical decision-making described in the above note were completed with the assistance of the mid-level provider. I reviewed and agree with the findings presented. I attest that I had a [id number] encounter with the patient on the same day, and personally performed and documented my assessment and findings in the medical record. No further bleeding. Management of anemia per renal. I will sign off. Anca Harris Jun 20, 2016 12:46 Sav Kevin MD Jun 20, 2016 16:39
--- NOTE | 2016-06-20 13:21 | HHI.CCPN ---
Subjective Remarks/Hospital Course 05/28: 60 yo AAM with PMH of HTN, stroke without residual deficit, DM, nonischemic cardiomyopathy (EF 40% and stage I diastolic dysfunction) Cocaine abuse, Hepatitis C, ESRD on HD T/R/Sat who presents to [facility] for 2 day history of SOB. He reported symptoms started 1/ after he received hemodialysis. He reported a nonproductive cough without fevers, chills, or chest pain. His workup revealed a normal white count and CXR that demonstrated RLL consolidation. His potassium was 6.8. While preparations were being made to administer medications to address his hyperkalemia he developed bradycardia and PEA arrest. He underwent CPR and received epinephrine and 1 amp of bicarbonate. It was return of spontaneous circulation after 8 minutes. He was intubated by the emergency department physician Dr. Clancy. Dr. Francisco with nephrology was consulted and he made arrangements for urgent dialysis which is taking place currently. Target removal 3.8 L per HD RN. Postintubation CXR demonstrates R base infiltrate but also appears there is right pleural effusion. Influenza screen negative. Receive Zosyn and azithromycin in the emergency department. 05/29: Sedated, arousable, not following commands, orally intubated on mechanical ventilation. Gets agitated on lightening sedation and has a strong gag reflex. 05/30: Sedated, arousable, not following commands. Remains orally intubated on mechanical ventilation. Failed C Pap trial today. Dialyzed earlier. 05/31: Sedated/encephalopathic on lightening sedation, not following commands. Remains orally intubated on mechanical ventilation. Failed C Pap trials yesterday. 2-D echo just being completed today. 06/01 No events overnight. On Precedex drip unresponsive and doesn't follow commands. Afebrile. 06/02 Patient s/p HD yesterday with removal 1.5L , on Precedex infusion for sedation. 06/03 No events overnight. Sedated with fentanyl and intubated. s/p HD yesterday with removal 1.5L. 06/04 Patient remains sedated and intubated. Afebrile. Did not tolerate CPAP trials yesterday as he became tachypneic. 06/05 Patient s/p HD yesterday with removal 2L. Sedated with Fentanyl and intubated. Afebrile. Patient gets very agitated and restless when sedation is weaned off. 06/06 Patient is sedated with Fentanyl placed on Diprivan as well last night. Gets agitated and tachypneic on CPAP trials. s/p HD yesterday with removal 2L. 06/07: Remains sedated/encephalopathic, orally intubated on mechanical ventilation. Failed C Pap trials yesterday. 06/08: Remains sedated/encephalopathic, orally intubated on mechanical ventilation. Gets agitated on lightening sedation however not following commands. We'll attempt Precedex and titrate down on fentanyl/propofol 06/09: Remains sedated/encephalopathic, orally intubated on mechanical ventilation. On Precedex/propofol/fentanyl. Will attempt transitioning to Precedex alone to control agitation for C Pap trials. 06/10: Still requiring Precedex/propofol and fentanyl for CPAP trials. Patient continues to be extremely agitated and currently unable to extubate. Not following commands. Positive BM. Tolerating tube feeds. Afebrile. 06/11: On Precedex drip currently. -3 L of hemodialysis. Moving all 4 extremities but not following commands. 06/12: no changes. plan for PEG and Trach tomorrow. 06/13: plan for trach today. discussed with health care proxy and she still has concerns about possible trach. will touch base with palliative care. have talked with Dr. Lee from trauma, and plan for trach at some point depending on his schedule and per family discussions. 06/14: plan for trach today. significant bleeding from around PEG site. GI aware. 2 units prbc ordered. coags ordered. 0.3mcg/kg DDAVP ordered. 06/15: trach yesterday by Dr. Lee. trach site and PEG site with ongoing oozing despite FFP, platelets, DDAVP. I talked with Dr. Francisco and he is ok with iv contrast for imaging if needed, given that this is ESRD with no hope of renal recovery. 06/16: Continues to oozing from tracheostomy site. Packed with Surgicel but continues to ooze. No oozing from PEG tube site. Currently nothing by mouth. 2 bowel movements. Awake and does follow commands Subjective 06/17: Afebrile. No more bleeding from tracheostomy site. PEG site intact. Positive BM. Awake and following commands. 06/18: On CPAP, getting HD. Follows commands. Trial of TP today 06/19: No acute events overnight tolerating C Pap. Unable to place on T piece yesterday he developed tidal volumes and tachypnea. Continues to follow commands 06/20: Sitting up in stretcher chair on TP. Upper chest wheezing. CXR shows improving infiltrates Objective Vital Signs Date Time Temp Pulse Resp B/P Pulse Ox O2 Delivery O2 Flow Rate FiO2 06/20/16 11:19 100 40 06/20/16 08:00 113 06/20/16 08:00 98.6 28 120/64 06/20/16 08:00 T-piece Intake and Output 06/19/16 06/19/16 06/20/16 08:00 16:00 00:00 Intake Total 510 ml 480 ml 485 ml Output Total 40 ml 50 ml 125 ml Balance 470 ml 430 ml 360 ml Result Diagram: 06/20/16 0601 06/20/16 0601 Imaging Last Impressions Chest X-Ray 06/16/16 0600 Signed Impressions: Service Date/Time: May 04:06 - CONCLUSION: Increasing bibasilar infiltrates. Free air under right hemidiaphragm. Dudley Akbar MD Abdomen X-Ray 06/16/16 0000 Signed Impressions: Service Date/Time: May 09:12 - CONCLUSION: Apparent appropriate placement of gastric tube placement. Amaris Rosenberg MD Abdomen/Pelvis CT 06/15/16 0000 Signed Impressions: Service Date/Time: Wednesday, June 15, 2016 13:16 - CONCLUSION: Significant free intraperitoneal air. Consolidative changes in both bases with small bilateral pleural effusions. Mikhail Abrams MD FACR Brain MRI 06/10/16 0000 Signed Impressions: Service Date/Time: Friday, June 10, 2016 20:14 - CONCLUSION: 1. Mild chronic-appearing ischemic changes in the periventricular white matter slightly progressed from 2014. No recent infarct, mass effect or midline shift. No hydrocephalus. Lakhwinder Pringle MD Liver Ultrasound 06/01/16 0000 Signed Impressions: Service Date/Time: Wednesday, June 01, 2016 15:38 - CONCLUSION: 1. Bilateral pleural effusions. 2. Thick-walled gallbladder with minimal pericholecystic fluid. If there is clinical concern for acute cholecystitis a hepatobiliary scan may be helpful to confirm cystic duct obstruction. 3. Minimal ascites. 4. Echogenic atrophic right kidney. 5. Mild nonspecific prominence of the main pancreatic duct. Enzo Price MD Head CT 05/29/16 0000 Signed Impressions: Service Date/Time: Sunday, May 29, 2016 03:03 - CONCLUSION: Age- appropriate atrophy, stable from prior in September 2015. No acute findings. Earnest Torre MD Lower Extremity Ultrasound 05/28/16 0000 Signed Impressions: Service Date/Time: Saturday, May 28, 2016 22:27 - CONCLUSION: Negative for deep venous thrombosis bilateral lower extremity. Earnest Torre MD Objective Remarks GENERAL: 60 yo AA male, critically ill, s/p trach and PEG tube SKIN: Warm and dry. No rash HEAD: Normocephalic. EYES: Pupils minimally reactive at 2 mm bilaterally. No scleral icterus. No injection or drainage. NECK: Supple, trachea midline. No JVD. trach in place CARDIOVASCULAR: Regular rate and rhythm with S1, S2. No S4. II/ systolic murmur at the apex RESPIRATORY: Breath sounds equal bilaterally. Few crackles appreciate the bases , wheezing bilateral upper lung. No accessory muscle use. GASTROINTESTINAL: Abdomen soft, non-tender, nondistended. Clean dry and intact PEG site. MUSCULOSKELETAL: No disc and peripheral edema. Palpable thrill left AV fistula. Neuro: Currently arousable and will nod head appropriately to simple questions. Moves all 4 extremities equally and spontaneous. A/P Assessment and Plan NEURO: Acute encephalopathy, post cardiac arrest. History of stroke without residual deficit (per friend's report) History of cocaine abuse Posttraumatic stress disorder On as needed fentanyl for pain management. Neurologically much improved EEG 06/12 revealed mild sleep. No seizure activity noted. MRI brain revealed chronic vascular changes. No acute findings Neuro has followed-Dr. Wilks RESP: Acute respiratory failure Healthcare associated pneumonia Intubated in ED 05/28/16 following cardiac arrest Currently tolerating TP daily DuoNeb q6 hours. Albuterol q2 prn. Ventilator Bundle. s/p trach 06/14. Tracheotomy site packed with Surgicel. Dr. Lee notified 06/16 and placed 2 sutures. No further bleeding. CV: Cardiac arrest, secondary to hyperkalemia Nonischemic cardiomyopathy secondary to HTN, cocaine abuse Hypertension Elevated Troponin: ? NSTEMI Monitor HR and BP keep MAP>65mmHg Continue home meds: Hydralazine 25 tid. Clonidine 0.1 tid., Lopressor 25mg Q6 ( 100 mg twice a day at home) ASA 81 mg daily will be continued. Echo 05/31: EF 25-30%, no RWMA. Mild MR/TR. MEGAN 36 mmHg cardiac cath 12/09/2012 - EF 40%, normal coronaries. Elevated troponin, cardiac arrest. Per cardiology-no intervention planned. GI: Hepatitis C Elevated LFT Free air - likely secondary to EGD/tube feeding insufflation Daily TF-Nepro@50ml/hr Monitor LFT's: Trending down US liver: Bilateral pleural effusions. Thick-walled gallbladder with minimal pericholecystic fluid. Minimal ascites. Echogenic atrophic right kidney. Mild nonspecific prominence of the main pancreatic duct. status post suture by Dr. Zander Tabares. No bleeding actively from PEG site currently Protonix for GI prophylaxis Colace for bowel regimen FEN/RENAL: ESRD Acute severe hyperkalemia - resolved Hyperphosphatemia Intermittent hemodialysis per nephrology (Dr. Francisco) Emergent HD 05/28 due to potassium of 6.8 with bradycardia and cardiac arrest. Monitor renal function, I/O's, avoid nephrotoxins. s/p HD today Continue PhosLo 667 mg 3 times a day ID: Acute healthcare associated pneumonia Received Zosyn and azithromycin in the emergency department 05/28. s/p Zosyn 2.25 g IV every 8 hours 05/29 - 06/12. Azithro x 10 days.05/28 nasal washing negative for Influenza. continue to monitor Pertinent cultures 05/28 - blood cultures 2 - 1 out of 2 corynebacterium not Jk 05/29 Sputum- beta strep not A HEME: Anemia of acute blood loss from PEG tube Thrombocytopenia 1 unit prbc, 1 ffp, 1 plt. DDAVP given 06/15 Given 1 unit PRBC 06/16 Coags within normal limits Received 16 mg DDAVP and 5000 mg amicar Monitor CBC. Currently 7.1 Hb repeat afternoon, transfuse if needed Dr. Kevin/hematology following. Von Willebrand factor pending ENDO: Diabetes mellitus Medium dose Insulin sliding scale with bedside glucose every 6 hours PROPH: holding pharmacologic DVT prophylaxis in the setting of active bleeding resume in 24 hours if no bleeding, resume today. Protonix 40 mg IV daily for stress ulcer prophylaxis. Doppler US LE negative for DVT ACCESS: Peripheral IV providing adequate access at this time. Left AV fistula accessed for hemodialysis Full code Palliative care is following to assist with deciding goals of therapy. Critical Care: The total critical care time was 30 minutes. Time to perform other separately billable procedures was not included in the critical care time. Sanchez Wilkinson MD Jun 20, 2016 13:20
--- NOTE | 2016-06-20 15:24 | HHI.NPPN ---
Subjective General Problems: Anemia Renal Failure: Chronic, End Stage Renal Disease Review of Systems General General Remarks unable to evaluate due to mental status Objective Data Data 06/19/16 06/20/16 19:00 07:00 Intake Total 480 ml 945 ml Output Total 50 ml 165 ml Balance 430 ml 780 ml Intake Oral 0 ml 0 ml IV Total 100 ml 215 ml Tube Feeding 280 ml 610 ml Other 100 ml 120 ml Output Urine Total 0 ml 90 ml Stool Total 50 ml 75 ml Vital Signs Date Time Temp Pulse Resp B/P Pulse Ox O2 Delivery O2 Flow Rate FiO2 06/20/16 12:00 40 06/20/16 12:00 116 06/20/16 12:00 99.0 116 27 173/98 100 06/20/16 11:19 100 40 06/20/16 10:00 110 06/20/16 08:03 40 06/20/16 08:00 40 06/20/16 08:00 113 06/20/16 08:00 98.6 113 28 120/64 100 06/20/16 08:00 99 T-piece 40 06/20/16 06:00 95 06/20/16 04:30 100 35 06/20/16 04:00 111 06/20/16 04:00 40 06/20/16 04:00 98.3 111 23 119/65 100 06/20/16 02:00 97 06/20/16 01:15 100 35 06/20/16 00:00 98.0 97 23 124/65 100 06/20/16 00:00 97 06/20/16 00:00 40 06/19/16 22:00 96 06/19/16 20:42 100 40 06/19/16 20:00 98.1 93 21 123/76 100 06/19/16 20:00 40 06/19/16 20:00 93 06/19/16 18:37 100 40 06/19/16 18:17 100 40 06/19/16 18:00 69 06/19/16 16:00 90 06/19/16 16:00 40 06/19/16 16:00 98.3 90 18 142/69 99 -: 06/20/16 0601 06/20/16 0601 Tubes & Lines Comment trach, PEG Drip Comment Precedex Physical Exam General Appearance: Well Developed, Well Nourished, Comfortable Eyes Eye Exam: Pupils Equal, Pupils Reactive Neck Neck Exam: Neck Supple Pulmonary Resp Exam: Breath Sounds Equal, Crackles, Decreased Bases, Diminished Breath Sounds Cardiology CV Exam: Regular, Normal Sinus Rhythm, Good Perfusion Gastrointestinal/Abdomen GI Exam: Soft, Non-Tender, Bowel Sounds Present, Non-Distended Musculoskeletal MS Exam: Joints Intact, Normal Tone Integumentary Skin Exam: Clear, Warm, Dry, Intact Extremeties Extremities Exam: Pedal Pulses Palpable, Trace Edema Neurologic Neuro Exam: Unresponsive, Sedated Assessment/Plan Discussed Condition With: Patient Assessment Summary: Anemia of CKD, Hypertension, End Stage Renal Disease Electrolyte Assessment: Hypocalcemia Problem List: (1) ESRD on dialysis Plan: Continue dialysis T-Th-Mon, had dialysis yesterday. next Hemodialysis tomorrow pt post cardiac arrest he has encephalopathy continue to follow BP oozing around PEG stopped Hematology signed off (2) Anemia Plan: CBC pending today. Received large volume blood transfusion when he was actively bleeding from PEG tube site and Tracheostomy site. Bleeding has subsided. Continue Epogen with dialysis. (3) Hypertension Plan: BP higher may adjust He is on metoprolol, hydralazine, clonidine with hold parameters (4) DM (diabetes mellitus) Plan: continue insulin coverage goal to maintain blood glucose between 140 and 180 off D10 , tube feeding was resumed (5) Hyperkalemia Plan: corrected with extra dialysis treatment on 06/13 monitor for recurrence (6) NSTEMI (non-ST elevated myocardial infarction) Plan: Troponin I elevated post cardiac arrest, chest compressions. he had catheterization in January 2016, normal coronary arteries (7) Elevated LFTs Plan: improved. (8) Cocaine abuse Plan: Cessation has been recommended. I have discussed with his girlfriend. (9) Encephalopathy Plan: vent management, s/p trach placement Problem Qualifiers (1) Hypertension: Qualified Code: I10 - Essential hypertension (2) DM (diabetes mellitus): Qualified Code: E11.22 - Type 2 diabetes mellitus with diabetic chronic kidney disease, unspecified CKD stage, unspecified intermediate frame tender insulin use status Willy Arellano MD Jun 20, 2016 15:24
[2016-06-20 15:46] LABS: HEMATOCRIT 21.6 % (39.0-51.0)
[2016-06-20] MEDS: hydrALAZINE HCL 50 MG TAB PO SCH (18:20)
[2016-06-21] VITALS (19 sets, daily range): BP systolic 92–137; BP diastolic 56–78; PULSE 74–136; RESP 13–26; TEMP 97.9–99; O2SAT 98–100
[2016-06-21] MEDS: PROPOFOL 1000 MG/100 ML INJ 100 ML IV SCH ×4 (02:42→23:55)
[2016-06-21] MEDS: HEPARIN SODIUM - SQ 10,000 UNITS/ML VIAL SQ SCH ×2 (02:45→13:25)
[2016-06-21] MEDS: INSULIN NovoLIN REGULAR SUPPLEMENTAL SCALE SQ SCH ×4 (02:47→21:00)
[2016-06-21] MEDS: CHLORHEXIDINE GLUCONATE 2 % 1 PACK (2 CLOTHS) TOP SCH (02:47)
[2016-06-21] MEDS: METOPROLOL TARTRATE 25 MG TAB PO/NG SCH ×4 (05:25→18:15)
[2016-06-21 05:52] LABS: AUTOMATED NEUTROPHIL # 4.1 TH/MM3 (1.8-7.7); BASOPHIL # 0.1 TH/MM3 (0-0.2); EOSINOPHIL # 0.2 TH/MM3 (0-0.4); EOSINOPHIL % 3.8 % (0.0-4.0); HEMATOCRIT 21.1 % (39.0-51.0); LYMPH % 13.4 % (9.0-44.0); LYMPHOCYTE # 0.8 TH/MM3 (1.0-4.8); MEAN CELL VOLUME 87.1 FL (80.0-100.0); MEAN CORPUSCULAR HEMOGLOBIN 30.3 PG (27.0-34.0); MEAN CORPUSCULAR HGB CONC 34.8 % (32.0-36.0); MONO % 11.9 % (0.0-8.0); NEUT % 69.9 % (16.0-70.0); PLATELET COUNT 190 TH/MM3 (150-450); RED BLOOD COUNT 2.43 MIL/MM3 (4.50-5.90); RED CELL DISTRIBUTION WIDTH 15.2 % (11.6-17.2); WHITE BLOOD COUNT 5.9 TH/MM3 (4.0-11.0)
--- NOTE | 2016-06-21 06:20 | RADRPT ---
EXAM DATE/TIME: 06/21/2016 04:54 [facility] COMPARISON: CHEST SINGLE AP, June 20, 2016, 2:52. INDICATIONS : Respiratory disease. MEDICAL HISTORY : Renal insufficiency. Stroke. Myocardial infarction. SURGICAL HISTORY : None. ENCOUNTER: Subsequent ACUITY: 2 weeks PAIN SCORE: Non-responsive. LOCATION: Bilateral chest FINDINGS: Diffuse airspace opacities are modestly worse in the interim accounting for differences in technique. Small, bilateral pleural effusions are suspected as well. No pneumothorax. Mild cardiomegaly again n oted. Trach collar again seen. CONCLUSION: Diffuse bilateral air space opacities are modestly worse since yesterday. Minh Aponte MD on June 21, 2016 at 6:17 Board Certified Radiologist. This report was verified electronically.
[2016-06-21 06:23] LABS: ALT (GPT) 21 U/L (12-78); ANION GAP 9 MEQ/L (5-15); AST (GOT) 46 U/L (15-37); BICARBONATE 29.1 MEQ/L (21.0-32.0); BLOOD UREA NITROGEN 59 MG/DL (7-18); CHLORIDE 96 MEQ/L (98-107); GLOMERULAR FILTRATION RATE 10 ML/MIN (>89); POTASSIUM 3.6 MEQ/L (3.5-5.1); SODIUM (NA) 134 MEQ/L (136-145)
[2016-06-21 06:25] LABS: HEMO FLAGS AUTO DIFF
[2016-06-21 06:29] LABS: ALKALINE PHOSPHATASE 103 U/L (45-117); TOTAL BILIRUBIN ADULT 0.6 MG/DL (0.2-1.0)
[2016-06-21 07:18] LABS: SCAN/DIFF AUTO DIFF CONFIRMED
[2016-06-21] MEDS: SODIUM CHLOR 0.9% 1000 ML INJ 1,000 ML IV PRN (08:20)
[2016-06-21] MEDS: GELATIN 12 MM/7 MM FOAM TOP PRN (08:21)
[2016-06-21] MEDS: PANTOPRAZOLE SODIUM 40 MG VIAL IV SCH (11:35)
[2016-06-21] MEDS: DOCUSATE SODIUM 100 MG/10 ML UDC PO SCH ×2 (11:36→23:56)
[2016-06-21] MEDS: NEOMYCIN/POLYMYXIN/BACITRACIN OINT 15 GM TUBE TOPICAL SCH ×2 (11:36→23:56)
[2016-06-21] MEDS: SODIUM CHLORIDE 0.9% FLUSH 5 ML FLUSH IV FLUSH SCH ×2 (11:36→23:55)
[2016-06-21] MEDS: cloNIDine HCL 0.1 MG TAB PO SCH ×3 (11:36→18:15)
[2016-06-21] MEDS: hydrALAZINE HCL 50 MG TAB PO SCH ×3 (11:36→18:15)
[2016-06-21] MEDS: CALCIUM ACETATE 667 MG CAP NG SCH ×3 (11:36→18:15)
--- NOTE | 2016-06-21 11:43 | HHI.NPPN ---
Subjective General Problems: Anemia Renal Failure: Chronic, End Stage Renal Disease Review of Systems General General Remarks unable to evaluate due to mental status Objective Data Data 06/20/16 06/21/16 19:00 07:00 Intake Total 668 ml 1143 ml Output Total 250 ml 300 ml Balance 418 ml 843 ml IV Total 142 ml 232 ml Tube Feeding 386 ml 731 ml Other 140 ml 180 ml Output Urine Total 0 ml 0 ml Stool Total 250 ml 300 ml Vital Signs Date Time Temp Pulse Resp B/P Pulse Ox O2 Delivery O2 Flow Rate FiO2 06/21/16 10:00 100 40 06/21/16 08:00 97.9 81 21 125/64 100 06/21/16 08:00 81 06/21/16 08:00 40 06/21/16 06:00 93 06/21/16 04:11 100 40 06/21/16 04:00 40 06/21/16 04:00 87 06/21/16 04:00 98.4 87 19 137/75 100 06/21/16 02:00 76 06/21/16 00:37 99 40 06/21/16 00:00 98.2 74 18 118/56 100 06/21/16 00:00 80 06/21/16 00:00 40 06/20/16 22:20 100 40 06/20/16 20:00 40 06/20/16 20:00 98.8 88 14 108/59 100 06/20/16 20:00 88 06/20/16 19:30 100 40 06/20/16 18:00 95 06/20/16 16:17 100 40 06/20/16 16:00 99.9 112 24 154/91 100 06/20/16 16:00 112 06/20/16 16:00 40 06/20/16 14:00 104 06/20/16 12:00 40 06/20/16 12:00 116 06/20/16 12:00 99.0 116 27 173/98 100 -: 06/21/16 0415 06/21/16 0415 Tubes & Lines Comment trach, PEG Drip Comment Precedex Physical Exam General Appearance: Well Developed, Well Nourished, Comfortable Eyes Eye Exam: Pupils Equal, Pupils Reactive Neck Neck Exam: Neck Supple Pulmonary Resp Exam: Breath Sounds Equal, Crackles, Decreased Bases, Diminished Breath Sounds Cardiology CV Exam: Regular, Normal Sinus Rhythm, Good Perfusion Gastrointestinal/Abdomen GI Exam: Soft, Non-Tender, Bowel Sounds Present, Non-Distended Musculoskeletal MS Exam: Joints Intact, Normal Tone Integumentary Skin Exam: Clear, Warm, Dry, Intact Extremeties Extremities Exam: Pedal Pulses Palpable, Trace Edema Neurologic Neuro Exam: Unresponsive, Sedated Assessment/Plan Discussed Condition With: Patient Assessment Summary: Anemia of CKD, Hypertension, End Stage Renal Disease Electrolyte Assessment: Hypocalcemia Problem List: (1) ESRD on dialysis Plan: Continue dialysis T--Mon, had dialysis yesterday. next Hemodialysis Today 2.7 L removed pt post cardiac arrest he has encephalopathy continue to follow BP oozing around PEG stopped Hematology signed off (2) Anemia Plan: CBC pending today. Received large volume blood transfusion when he was actively bleeding from PEG tube site and Tracheostomy site. Bleeding has subsided. Continue Epogen with dialysis. (3) Hypertension Plan: BP higher may adjust He is on metoprolol, hydralazine, clonidine with hold parameters (4) DM (diabetes mellitus) Plan: continue insulin coverage goal to maintain blood glucose between 140 and 180 off D10 , tube feeding was resumed (5) Hyperkalemia Plan: corrected with extra dialysis treatment on 06/13 monitor for recurrence (6) NSTEMI (non-ST elevated myocardial infarction) Plan: Troponin I elevated post cardiac arrest, chest compressions. he had catheterization in January 2016, normal coronary arteries (7) Elevated LFTs Plan: improved. (8) Cocaine abuse Plan: Cessation has been recommended. I have discussed with his girlfriend. (9) Encephalopathy Plan: vent management, s/p trach placement Problem Qualifiers (1) Hypertension: Qualified Code: I10 - Essential hypertension (2) DM (diabetes mellitus): Qualified Code: E11.22 - Type 2 diabetes mellitus with diabetic chronic kidney disease, unspecified CKD stage, unspecified snf insulin use status Willy Arellano MD Jun 21, 2016 11:42
--- NOTE | 2016-06-21 12:18 | MP ---
cc: NATHALY WHEELER MD DATE OF SURGERY 06/14/2016 PREOPERATIVE DIAGNOSES Cardiac arrest. Respiratory failure. Ventilatory dependency. Renal failure. POSTOPERATIVE DIAGNOSIS Cardiac arrest. Respiratory failure. Ventilatory dependency. Renal failure. OPERATIVE PROCEDURE Tracheostomy, Blue Rhino. SURGEON MD Suleiman ANESTHESIA 1% Xylocaine and propofol sedation. ESTIMATED BLOOD LOSS 10 cc. PROCEDURE The patient prepped and draped in the usual fashion, the area infiltrated with 1% Xylocaine. Incision made vertically over the anterior neck, deepened down with a hemostat to the level of the trachea. Tracheal rings palpated and the needle inserted in the second and third ring and through the needle the guidewire is inserted and the needle withdrawn. Over the guidewire the four dilators were placed over that the blue rhino dilator was placed and trachea dilated to 8 Shiley size. The entire procedure is followed with bronchoscope inserted by Dr. Tom Gould from above. Now the Blue Rhino is withdrawn and then 8 Shiley tracheostomy cannula is placed, connected to the ventilator, end-tidal CO2 checked and cannula sutured to skin with 2-0 Prolene, secured around the neck with a strap. The patient tolerated the procedure well. Nathaly GARDNER/AIDEN /8:43 PM /12:14 PM
[2016-06-21] MEDS: CHLORHEXIDINE 0.12% (ORAL KIT) 15 ML CUP MT SCH ×2 (14:14→23:56)
--- NOTE | 2016-06-21 15:08 | HHI.CCPN ---
Subjective Remarks/Hospital Course 05/28: 60 yo AAM with PMH of HTN, stroke without residual deficit, DM, nonischemic cardiomyopathy (EF 40% and stage I diastolic dysfunction) Cocaine abuse, Hepatitis C, ESRD on HD T/R/Sat who presents to [facility] for 2 day history of SOB. He reported symptoms started 1/ after he received hemodialysis. He reported a nonproductive cough without fevers, chills, or chest pain. His workup revealed a normal white count and CXR that demonstrated RLL consolidation. His potassium was 6.8. While preparations were being made to administer medications to address his hyperkalemia he developed bradycardia and PEA arrest. He underwent CPR and received epinephrine and 1 amp of bicarbonate. It was return of spontaneous circulation after 8 minutes. He was intubated by the emergency department physician Dr. Clancy. Dr. Francisco with nephrology was consulted and he made arrangements for urgent dialysis which is taking place currently. Target removal 3.8 L per HD RN. Postintubation CXR demonstrates R base infiltrate but also appears there is right pleural effusion. Influenza screen negative. Receive Zosyn and azithromycin in the emergency department. 05/29: Sedated, arousable, not following commands, orally intubated on mechanical ventilation. Gets agitated on lightening sedation and has a strong gag reflex. 05/30: Sedated, arousable, not following commands. Remains orally intubated on mechanical ventilation. Failed C Pap trial today. Dialyzed earlier. 05/31: Sedated/encephalopathic on lightening sedation, not following commands. Remains orally intubated on mechanical ventilation. Failed C Pap trials yesterday. 2-D echo just being completed today. 06/01 No events overnight. On Precedex drip unresponsive and doesn't follow commands. Afebrile. 06/02 Patient s/p HD yesterday with removal 1.5L , on Precedex infusion for sedation. 06/03 No events overnight. Sedated with fentanyl and intubated. s/p HD yesterday with removal 1.5L. 06/04 Patient remains sedated and intubated. Afebrile. Did not tolerate CPAP trials yesterday as he became tachypneic. 06/05 Patient s/p HD yesterday with removal 2L. Sedated with Fentanyl and intubated. Afebrile. Patient gets very agitated and restless when sedation is weaned off. 06/06 Patient is sedated with Fentanyl placed on Diprivan as well last night. Gets agitated and tachypneic on CPAP trials. s/p HD yesterday with removal 2L. 06/07: Remains sedated/encephalopathic, orally intubated on mechanical ventilation. Failed C Pap trials yesterday. 06/08: Remains sedated/encephalopathic, orally intubated on mechanical ventilation. Gets agitated on lightening sedation however not following commands. We'll attempt Precedex and titrate down on fentanyl/propofol 06/09: Remains sedated/encephalopathic, orally intubated on mechanical ventilation. On Precedex/propofol/fentanyl. Will attempt transitioning to Precedex alone to control agitation for C Pap trials. 06/10: Still requiring Precedex/propofol and fentanyl for CPAP trials. Patient continues to be extremely agitated and currently unable to extubate. Not following commands. Positive BM. Tolerating tube feeds. Afebrile. 06/11: On Precedex drip currently. -3 L of hemodialysis. Moving all 4 extremities but not following commands. 06/12: no changes. plan for PEG and Trach tomorrow. 06/13: plan for trach today. discussed with health care proxy and she still has concerns about possible trach. will touch base with palliative care. have talked with Dr. Lee from trauma, and plan for trach at some point depending on his schedule and per family discussions. 06/14: plan for trach today. significant bleeding from around PEG site. GI aware. 2 units prbc ordered. coags ordered. 0.3mcg/kg DDAVP ordered. 06/15: trach yesterday by Dr. Lee. trach site and PEG site with ongoing oozing despite FFP, platelets, DDAVP. I talked with Dr. Francisco and he is ok with iv contrast for imaging if needed, given that this is ESRD with no hope of renal recovery. 06/16: Continues to oozing from tracheostomy site. Packed with Surgicel but continues to ooze. No oozing from PEG tube site. Currently nothing by mouth. 2 bowel movements. Awake and does follow commands 06/17: Afebrile. No more bleeding from tracheostomy site. PEG site intact. Positive BM. Awake and following commands. 06/18: On CPAP, getting HD. Follows commands. Trial of TP today 06/19: No acute events overnight tolerating C Pap. Unable to place on T piece yesterday he developed tidal volumes and tachypnea. Continues to follow commands 06/20: Sitting up in stretcher chair on TP. Upper chest wheezing. CXR shows improving infiltrates Subjective 06/21: Patient failed to be stopped in 2-3 hours yesterday. Currently on CPAP. Chest x-ray shows diffuse bilateral infiltrates increased from previous. Somnolent Objective Vital Signs Date Time Temp Pulse Resp B/P Pulse Ox O2 Delivery O2 Flow Rate FiO2 06/21/16 14:36 50 06/21/16 14:36 98 T-piece 06/21/16 14:00 91 06/21/16 12:00 98.8 13 125/59 Intake and Output 06/20/16 06/20/16 06/21/16 08:00 16:00 00:00 Intake Total 460 ml 668 ml Output Total 40 ml 250 ml Balance 420 ml 418 ml Result Diagram: 06/21/16 0415 06/21/16 0415 Imaging Last Impressions Chest X-Ray 06/16/16 0600 Signed Impressions: Service Date/Time: May 04:06 - CONCLUSION: Increasing bibasilar infiltrates. Free air under right hemidiaphragm. Dudley Akbar MD Abdomen X-Ray 06/16/16 0000 Signed Impressions: Service Date/Time: May 09:12 - CONCLUSION: Apparent appropriate placement of gastric tube placement. Amaris Rosenberg MD Abdomen/Pelvis CT 06/15/16 0000 Signed Impressions: Service Date/Time: Wednesday, June 15, 2016 13:16 - CONCLUSION: Significant free intraperitoneal air. Consolidative changes in both bases with small bilateral pleural effusions. Mikhail Abrams MD FACR Brain MRI 06/10/16 0000 Signed Impressions: Service Date/Time: Friday, June 10, 2016 20:14 - CONCLUSION: 1. Mild chronic-appearing ischemic changes in the periventricular white matter slightly progressed from 2014. No recent infarct, mass effect or midline shift. No hydrocephalus. Lakhwinder Pringle MD Liver Ultrasound 06/01/16 0000 Signed Impressions: Service Date/Time: Wednesday, June 01, 2016 15:38 - CONCLUSION: 1. Bilateral pleural effusions. 2. Thick-walled gallbladder with minimal pericholecystic fluid. If there is clinical concern for acute cholecystitis a hepatobiliary scan may be helpful to confirm cystic duct obstruction. 3. Minimal ascites. 4. Echogenic atrophic right kidney. 5. Mild nonspecific prominence of the main pancreatic duct. Enzo Price MD Head CT 05/29/16 0000 Signed Impressions: Service Date/Time: Sunday, May 29, 2016 03:03 - CONCLUSION: Age- appropriate atrophy, stable from prior in September 2015. No acute findings. Earnest Torre MD Lower Extremity Ultrasound 05/28/16 0000 Signed Impressions: Service Date/Time: Saturday, May 28, 2016 22:27 - CONCLUSION: Negative for deep venous thrombosis bilateral lower extremity. Earnest Torre MD Objective Remarks GENERAL: 60 yo AA male, critically ill, s/p trach and PEG tube SKIN: Warm and dry. No rash HEAD: Normocephalic. EYES: Pupils minimally reactive at 2 mm bilaterally. No scleral icterus. No injection or drainage. NECK: Supple, trachea midline. No JVD. trach in place CARDIOVASCULAR: Regular rate and rhythm with S1, S2. No S4. II/ systolic murmur at the apex RESPIRATORY: Breath sounds equal bilaterally. Bilateral crackles crackles appreciate the bases, wheezing bilateral upper lung. GASTROINTESTINAL: Abdomen soft, non-tender, nondistended. Clean dry and intact PEG site. MUSCULOSKELETAL: No peripheral edema. Palpable thrill left AV fistula. Neuro: Currently arousable and will nod head appropriately to simple questions. Moves all 4 extremities equally and spontaneous. A/P Assessment and Plan NEURO: Acute encephalopathy, post cardiac arrest. History of stroke without residual deficit (per friend's report) History of cocaine abuse Posttraumatic stress disorder As needed fentanyl for pain management. Neurologically improvong EEG 06/12 revealed mild sleep. No seizure activity noted. MRI brain revealed chronic vascular changes. No acute findings Neuro has followed-Dr. Wilks RESP: Acute respiratory failure Healthcare associated pneumonia Intubated in ED 05/28/16 following cardiac arrest Currently tolerating CPAP, did not tolerate TP yesterday DuoNeb q6 hours. Albuterol q2 prn. Ventilator Bundle. s/p trach 06/14. Tracheotomy site packed with Surgicel. Dr. Lee notified 06/16 and placed 2 sutures. No further bleeding. Chest x-ray today shows increasing bilateral interstitial infiltrates CV: Cardiac arrest, secondary to hyperkalemia Pulmonary edema Nonischemic cardiomyopathy secondary to HTN, cocaine abuse Hypertension Elevated Troponin: ? NSTEMI Monitor HR and BP keep MAP>65mmHg Continue home meds: Hydralazine 25 tid. Clonidine 0.1 tid., Lopressor 25mg Q6 ( 100 mg twice a day at home) ASA 81 mg daily will be continued. Echo 05/31: EF 25-30%, no RWMA. Mild MR/TR. MEGAN 36 mmHg cardiac cath 12/09/2012 - EF 40%, normal coronaries. Elevated troponin, cardiac arrest. Per cardiology-no intervention planned. Had hemodialysis with 2.7 L fluid removed GI: Hepatitis C Elevated LFT Free air - likely secondary to EGD/tube feeding insufflation Daily TF-Nepro@50ml/hr. Monitor LFT's: Trending down US liver: Bilateral pleural effusions. Thick-walled gallbladder with minimal pericholecystic fluid. Minimal ascites. Echogenic atrophic right kidney. Mild nonspecific prominence of the main pancreatic duct. status post suture by Dr. Zander Tabares. No bleeding actively from PEG site currently Protonix for GI prophylaxis Colace for bowel regimen FEN/RENAL: ESRD Acute severe hyperkalemia - resolved Hyperphosphatemia Intermittent hemodialysis per nephrology (Dr. Francisco) Emergent HD 05/28 due to potassium of 6.8 with bradycardia and cardiac arrest. Monitor renal function, I/O's, avoid nephrotoxins. s/p HD today Continue PhosLo 667 mg 3 times a day ID: Acute healthcare associated pneumonia Received Zosyn and azithromycin in the emergency department 05/28. s/p Zosyn 2.25 g IV every 8 hours 05/29 - 06/12. Azithro x 10 days.05/28 nasal washing negative for Influenza. continue to monitor Pertinent cultures 05/28 - blood cultures 2 - 1 out of 2 corynebacterium not Jk 05/29 Sputum- beta strep not A HEME: Anemia of acute blood loss from PEG tube Thrombocytopenia 1 unit prbc, 1 FFP, 1 plt. DDAVP given 06/15 Given 1 unit PRBC 06/16 Coags within normal limits Received 16 mg DDAVP and 5000 mg amicar Monitor CBC. Currently 7.1 Hb repeat afternoon, transfuse if needed Dr. Kevin/hematology following. Von Willebrand factor pending ENDO: Diabetes mellitus Medium dose Insulin sliding scale with bedside glucose every 6 hours PROPH: holding pharmacologic DVT prophylaxis in the setting of active bleeding resume in 24 hours if no bleeding, resume today. Protonix 40 mg IV daily for stress ulcer prophylaxis. Doppler US LE negative for DVT ACCESS: Peripheral IV providing adequate access at this time. Left AV fistula accessed for hemodialysis Full code Palliative care is following to assist with deciding goals of therapy. Critical Care: The total critical care time was 30 minutes. Time to perform other separately billable procedures was not included in the critical care time. Sanchez Wilkinson MD Jun 21, 2016 15:08
[2016-06-22] VITALS (16 sets, daily range): BP systolic 99–167; BP diastolic 50–102; PULSE 76–93; RESP 12–25; TEMP 97.7–98.8; O2SAT 99–100
[2016-06-22] MEDS: HEPARIN SODIUM - SQ 10,000 UNITS/ML VIAL SQ SCH ×2 (02:35→12:47)
[2016-06-22] MEDS: PROPOFOL 1000 MG/100 ML INJ 100 ML IV SCH ×2 (02:35→08:24)
[2016-06-22] MEDS: INSULIN NovoLIN REGULAR SUPPLEMENTAL SCALE SQ SCH ×4 (02:35→21:00)
[2016-06-22] MEDS: CHLORHEXIDINE GLUCONATE 2 % 1 PACK (2 CLOTHS) TOP SCH (04:00)
[2016-06-22] MEDS: METOPROLOL TARTRATE 25 MG TAB PO/NG SCH ×4 (06:00→17:42)
[2016-06-22] MEDS: CHLORHEXIDINE 0.12% (ORAL KIT) 15 ML CUP MT SCH (08:00)
[2016-06-22] MEDS: hydrALAZINE HCL 50 MG TAB PO SCH ×3 (08:23→17:41)
[2016-06-22] MEDS: cloNIDine HCL 0.1 MG TAB PO SCH ×3 (08:23→17:42)
[2016-06-22] MEDS: CALCIUM ACETATE 667 MG CAP NG SCH ×3 (08:23→17:41)
[2016-06-22] MEDS: PANTOPRAZOLE SODIUM 40 MG VIAL IV SCH (08:24)
[2016-06-22] MEDS: SODIUM CHLORIDE 0.9% FLUSH 5 ML FLUSH IV FLUSH SCH ×2 (08:24→23:10)
[2016-06-22] MEDS: DOCUSATE SODIUM 100 MG/10 ML UDC PO SCH ×2 (08:25→23:10)
[2016-06-22] MEDS: NEOMYCIN/POLYMYXIN/BACITRACIN OINT 15 GM TUBE TOPICAL SCH ×2 (08:26→23:09)
--- NOTE | 2016-06-22 11:27 | HHI.CCPN ---
Subjective Remarks/Hospital Course 05/28: 60 yo AAM with PMH of HTN, stroke without residual deficit, DM, nonischemic cardiomyopathy (EF 40% and stage I diastolic dysfunction) Cocaine abuse, Hepatitis C, ESRD on HD T/R/Sat who presents to [facility] for 2 day history of SOB. He reported symptoms started 1/ after he received hemodialysis. He reported a nonproductive cough without fevers, chills, or chest pain. His workup revealed a normal white count and CXR that demonstrated RLL consolidation. His potassium was 6.8. While preparations were being made to administer medications to address his hyperkalemia he developed bradycardia and PEA arrest. He underwent CPR and received epinephrine and 1 amp of bicarbonate. It was return of spontaneous circulation after 8 minutes. He was intubated by the emergency department physician Dr. Clancy. Dr. Francisco with nephrology was consulted and he made arrangements for urgent dialysis which is taking place currently. Target removal 3.8 L per HD RN. Postintubation CXR demonstrates R base infiltrate but also appears there is right pleural effusion. Influenza screen negative. Receive Zosyn and azithromycin in the emergency department. 05/29: Sedated, arousable, not following commands, orally intubated on mechanical ventilation. Gets agitated on lightening sedation and has a strong gag reflex. 05/30: Sedated, arousable, not following commands. Remains orally intubated on mechanical ventilation. Failed C Pap trial today. Dialyzed earlier. 05/31: Sedated/encephalopathic on lightening sedation, not following commands. Remains orally intubated on mechanical ventilation. Failed C Pap trials yesterday. 2-D echo just being completed today. 06/01 No events overnight. On Precedex drip unresponsive and doesn't follow commands. Afebrile. 06/02 Patient s/p HD yesterday with removal 1.5L , on Precedex infusion for sedation. 06/03 No events overnight. Sedated with fentanyl and intubated. s/p HD yesterday with removal 1.5L. 06/04 Patient remains sedated and intubated. Afebrile. Did not tolerate CPAP trials yesterday as he became tachypneic. 06/05 Patient s/p HD yesterday with removal 2L. Sedated with Fentanyl and intubated. Afebrile. Patient gets very agitated and restless when sedation is weaned off. 06/06 Patient is sedated with Fentanyl placed on Diprivan as well last night. Gets agitated and tachypneic on CPAP trials. s/p HD yesterday with removal 2L. 06/07: Remains sedated/encephalopathic, orally intubated on mechanical ventilation. Failed C Pap trials yesterday. 06/08: Remains sedated/encephalopathic, orally intubated on mechanical ventilation. Gets agitated on lightening sedation however not following commands. We'll attempt Precedex and titrate down on fentanyl/propofol 06/09: Remains sedated/encephalopathic, orally intubated on mechanical ventilation. On Precedex/propofol/fentanyl. Will attempt transitioning to Precedex alone to control agitation for C Pap trials. 06/10: Still requiring Precedex/propofol and fentanyl for CPAP trials. Patient continues to be extremely agitated and currently unable to extubate. Not following commands. Positive BM. Tolerating tube feeds. Afebrile. 06/11: On Precedex drip currently. -3 L of hemodialysis. Moving all 4 extremities but not following commands. 06/12: no changes. plan for PEG and Trach tomorrow. 06/13: plan for trach today. discussed with health care proxy and she still has concerns about possible trach. will touch base with palliative care. have talked with Dr. Lee from trauma, and plan for trach at some point depending on his schedule and per family discussions. 06/14: plan for trach today. significant bleeding from around PEG site. GI aware. 2 units prbc ordered. coags ordered. 0.3mcg/kg DDAVP ordered. 06/15: trach yesterday by Dr. Lee. trach site and PEG site with ongoing oozing despite FFP, platelets, DDAVP. I talked with Dr. Francisco and he is ok with iv contrast for imaging if needed, given that this is ESRD with no hope of renal recovery. 06/16: Continues to oozing from tracheostomy site. Packed with Surgicel but continues to ooze. No oozing from PEG tube site. Currently nothing by mouth. 2 bowel movements. Awake and does follow commands 06/17: Afebrile. No more bleeding from tracheostomy site. PEG site intact. Positive BM. Awake and following commands. 06/18: On CPAP, getting HD. Follows commands. Trial of TP today 06/19: No acute events overnight tolerating C Pap. Unable to place on T piece yesterday he developed tidal volumes and tachypnea. Continues to follow commands 06/20: Sitting up in stretcher chair on TP. Upper chest wheezing. CXR shows improving infiltrates Subjective 06/21: Patient failed to be stopped in 2-3 hours yesterday. Currently on CPAP. Chest x-ray shows diffuse bilateral infiltrates increased from previous. Somnolent 06/22. Sedated on propofol. had HD with fluid removal yesterday. CXR shows significant improvement in bilateral infiltrates. Not following commands on propofol Objective Vital Signs Date Time Temp Pulse Resp B/P Pulse Ox O2 Delivery O2 Flow Rate FiO2 06/22/16 07:40 100 35 06/22/16 06:00 84 06/22/16 04:00 98.4 12 99/50 06/21/16 14:36 T-piece Intake and Output 06/21/16 06/21/16 06/22/16 08:00 16:00 00:00 Intake Total 1143 ml 621 ml Output Total 300 ml 2900 ml Balance 843 ml -2279 ml Result Diagram: 06/21/16 0415 06/21/16 0415 Imaging Last Impressions Chest X-Ray 06/16/16 0600 Signed Impressions: Service Date/Time: May 04:06 - CONCLUSION: Increasing bibasilar infiltrates. Free air under right hemidiaphragm. Dudley Akbar MD Abdomen X-Ray 06/16/16 0000 Signed Impressions: Service Date/Time: May 09:12 - CONCLUSION: Apparent appropriate placement of gastric tube placement. Amaris Rosenberg MD Abdomen/Pelvis CT 06/15/16 0000 Signed Impressions: Service Date/Time: Wednesday, June 15, 2016 13:16 - CONCLUSION: Significant free intraperitoneal air. Consolidative changes in both bases with small bilateral pleural effusions. Mikhail Abrams MD FACR Brain MRI 06/10/16 0000 Signed Impressions: Service Date/Time: Friday, June 10, 2016 20:14 - CONCLUSION: 1. Mild chronic-appearing ischemic changes in the periventricular white matter slightly progressed from 2014. No recent infarct, mass effect or midline shift. No hydrocephalus. Lakhwinder Pringle MD Liver Ultrasound 06/01/16 0000 Signed Impressions: Service Date/Time: Wednesday, June 01, 2016 15:38 - CONCLUSION: 1. Bilateral pleural effusions. 2. Thick-walled gallbladder with minimal pericholecystic fluid. If there is clinical concern for acute cholecystitis a hepatobiliary scan may be helpful to confirm cystic duct obstruction. 3. Minimal ascites. 4. Echogenic atrophic right kidney. 5. Mild nonspecific prominence of the main pancreatic duct. Enzo Price MD Head CT 05/29/16 0000 Signed Impressions: Service Date/Time: Sunday, May 29, 2016 03:03 - CONCLUSION: Age- appropriate atrophy, stable from prior in September 2015. No acute findings. Earnest Torre MD Lower Extremity Ultrasound 05/28/16 0000 Signed Impressions: Service Date/Time: Saturday, May 28, 2016 22:27 - CONCLUSION: Negative for deep venous thrombosis bilateral lower extremity. Earnest Torre MD Objective Remarks GENERAL: 60 yo AA male, critically ill, s/p trach and PEG tube SKIN: Warm and dry. No rash HEAD: Normocephalic. EYES: Pupils minimally reactive at 2 mm bilaterally. No scleral icterus. No injection or drainage. NECK: Supple, trachea midline. No JVD. trach in place CARDIOVASCULAR: Regular rate and rhythm with S1, S2. No S4. II/ systolic murmur at the apex RESPIRATORY: Breath sounds equal bilaterally. Bilateral crackles improved from yesterday GASTROINTESTINAL: Abdomen soft, non-tender, nondistended. Clean dry and intact PEG site. MUSCULOSKELETAL: No peripheral edema. Palpable thrill left AV fistula. Neuro: Currently arousable and not following on propofol. Moves all 4 extremities equally and spontaneous. A/P Assessment and Plan NEURO: Acute encephalopathy, post cardiac arrest. History of stroke without residual deficit (per friend's report) History of cocaine abuse Posttraumatic stress disorder As needed fentanyl for pain management. Neurologically improving EEG 06/12 revealed mild sleep. No seizure activity noted. MRI brain revealed chronic vascular changes. No acute findings Neuro has followed-Dr. Wilks RESP: Acute respiratory failure Healthcare associated pneumonia Intubated in ED 05/28/16 following cardiac arrest Currently tolerating CPAP, place on TP 3-4 hours DuoNeb q6 hours. Albuterol q2 prn. Ventilator Bundle. s/p trach 06/14. Tracheotomy site packed with Surgicel. Dr. Lee notified 06/16 and placed 2 sutures. No further bleeding. Chest x-ray today shows improving bilateral interstitial infiltrates CV: Cardiac arrest, secondary to hyperkalemia Pulmonary edema Nonischemic cardiomyopathy secondary to HTN, cocaine abuse Hypertension Elevated Troponin: ? NSTEMI Monitor HR and BP keep MAP>65mmHg Continue home meds: Hydralazine 25 tid. Clonidine 0.1 tid., Lopressor 25mg Q6 ( 100 mg twice a day at home) ASA 81 mg daily will be continued. Echo 05/31: EF 25-30%, no RWMA. Mild MR/TR. MEGAN 36 mmHg cardiac cath 12/09/2012 - EF 40%, normal coronaries. Elevated troponin, cardiac arrest. Per cardiology-no intervention planned. Had hemodialysis yesterday GI: Hepatitis C Elevated LFT Free air - likely secondary to EGD/tube feeding insufflation Daily TF-Nepro@50ml/hr. Monitor LFT's US liver: Bilateral pleural effusions. Thick-walled gallbladder with minimal pericholecystic fluid. Minimal ascites. Echogenic atrophic right kidney. Mild nonspecific prominence of the main pancreatic duct. status post suture by Dr. Zander Tabares. No bleeding actively from PEG site currently Protonix for GI prophylaxis Colace for bowel regimen FEN/RENAL: ESRD Acute severe hyperkalemia - resolved Hyperphosphatemia Intermittent hemodialysis per nephrology (Dr. Francisco) Emergent HD 05/28 due to potassium of 6.8 with bradycardia and cardiac arrest. Monitor renal function, I/O's, avoid nephrotoxins. s/p HD today Continue PhosLo 667 mg 3 times a day ID: Acute healthcare associated pneumonia Received Zosyn and azithromycin in the emergency department 05/28. s/p Zosyn 2.25 g IV every 8 hours 05/29 - 06/12. Azithro x 10 days.05/28 nasal washing negative for Influenza. continue to monitor Pertinent cultures 05/28 - blood cultures 2 - 1 out of 2 corynebacterium not Jk 05/29 Sputum- beta strep not A HEME: Anemia of acute blood loss from PEG tube Thrombocytopenia 1 unit prbc, 1 FFP, 1 plt. DDAVP given 06/15 Given 1 unit PRBC 06/16 Coags within normal limits Received 16 mg DDAVP and 5000 mg amicar Monitor CBC. Currently 7.1 Hb repeat afternoon, transfuse if needed Dr. Kevin/hematology following. Von Willebrand factor pending ENDO: Diabetes mellitus Medium dose Insulin sliding scale with bedside glucose every 6 hours PROPH: holding pharmacologic DVT prophylaxis in the setting of active bleeding resume in 24 hours if no bleeding, resume today. Protonix 40 mg IV daily for stress ulcer prophylaxis. Doppler US LE negative for DVT ACCESS: Peripheral IV providing adequate access at this time. Left AV fistula accessed for hemodialysis Full code Palliative care is following to assist with deciding goals of therapy. Critical Care: The total critical care time was 30 minutes. Time to perform other separately billable procedures was not included in the critical care time. Sanchez Wilkinson MD Jun 22, 2016 11:27
--- NOTE | 2016-06-22 11:30 | HHI.NPPN ---
Subjective General Problems: Anemia Renal Failure: Chronic, End Stage Renal Disease Review of Systems General General Remarks unable to evaluate due to mental status Objective Data Data 06/21/16 06/22/16 19:00 07:00 Intake Total 621 ml 866 ml Output Total 2900 ml 150 ml Balance -2279 ml 716 ml IV Total 149 ml 204 ml Tube Feeding 412 ml 662 ml Other 60 ml Output Urine Total 200 ml 50 ml Stool Total 0 ml 100 ml Hemodialysis 2700 ml # Bowel Movements 0 Vital Signs Date Time Temp Pulse Resp B/P Pulse Ox O2 Delivery O2 Flow Rate FiO2 06/22/16 07:40 100 35 06/22/16 07:38 35 06/22/16 06:00 84 06/22/16 04:00 40 06/22/16 04:00 98.4 76 12 99/50 100 06/22/16 04:00 76 06/22/16 03:50 100 35 06/22/16 02:00 85 06/22/16 00:38 99 35 06/22/16 00:00 40 06/22/16 00:00 82 06/22/16 00:00 98.8 82 14 110/56 100 06/21/16 22:12 100 35 06/21/16 22:00 75 06/21/16 20:12 99 35 06/21/16 20:00 98.6 75 13 92/60 100 06/21/16 20:00 40 06/21/16 20:00 75 06/21/16 18:00 97 06/21/16 16:42 99 35 06/21/16 16:00 40 06/21/16 16:00 136 06/21/16 16:00 99.0 136 26 137/78 100 06/21/16 14:36 50 06/21/16 14:36 98 T-piece 50 06/21/16 14:00 91 06/21/16 12:47 100 40 06/21/16 12:46 40 06/21/16 12:00 86 06/21/16 12:00 98.8 86 13 125/59 100 06/21/16 12:00 40 -: 06/21/16 0415 06/21/16 0415 Tubes & Lines Comment trach, PEG Drip Comment Precedex Physical Exam General Appearance: Well Developed, Well Nourished, Comfortable Eyes Eye Exam: Pupils Equal, Pupils Reactive Neck Neck Exam: Neck Supple Pulmonary Resp Exam: Breath Sounds Equal, Crackles, Decreased Bases, Diminished Breath Sounds Cardiology CV Exam: Regular, Normal Sinus Rhythm, Good Perfusion Gastrointestinal/Abdomen GI Exam: Soft, Non-Tender, Bowel Sounds Present, Non-Distended Musculoskeletal MS Exam: Joints Intact, Normal Tone Integumentary Skin Exam: Clear, Warm, Dry, Intact Extremeties Extremities Exam: Pedal Pulses Palpable, Trace Edema Neurologic Neuro Exam: Unresponsive, Sedated Assessment/Plan Discussed Condition With: Patient Assessment Summary: Anemia of CKD, Hypertension, End Stage Renal Disease Electrolyte Assessment: Hypocalcemia Problem List: (1) ESRD on dialysis Plan: Continue dialysis T-Th-Mon, had dialysis yesterday. Hemodialysis yesterday 2.7 L removed pt post cardiac arrest he has encephalopathy continue to follow BP Status post PEG tube in place (2) Anemia Plan: Last hemoglobin 7.4 (3) Hypertension Plan: BP lower may adjust He is on metoprolol, hydralazine, clonidine with hold parameters (4) DM (diabetes mellitus) Plan: continue insulin coverage goal to maintain blood glucose between 140 and 180 off D10 , tube feeding was resumed (5) NSTEMI (non-ST elevated myocardial infarction) Plan: Troponin I elevated post cardiac arrest, chest compressions. he had catheterization in January 2016, normal coronary arteries (6) Elevated LFTs Plan: improved. (7) Cocaine abuse Plan: Cessation has been recommended. I have discussed with his girlfriend. (8) Encephalopathy Plan: vent management, s/p trach placement Problem Qualifiers (1) Hypertension: Qualified Code: I10 - Essential hypertension (2) DM (diabetes mellitus): Qualified Code: E11.22 - Type 2 diabetes mellitus with diabetic chronic kidney disease, unspecified CKD stage, unspecified correction insulin use status Willy Arellano MD Jun 22, 2016 11:30
--- NOTE | 2016-06-22 11:37 | RADRPT ---
EXAM DATE/TIME: 06/22/2016 10:37 [facility] COMPARISON: CHEST SINGLE AP, June 21, 2016, 4:54. INDICATIONS : Respiratory Disease. MEDICAL HISTORY : Renal insufficiency. Myocardial infarction. Stroke. Respiratory Disease, Cardiac Arrest. SURGICAL HISTORY : None. ENCOUNTER: Subsequent ACUITY: 1 week PAIN SCORE: Non-responsive. LOCATION: chest FINDINGS: Improving lung aeration is demonstrated. There is decreasing pulmonary congestion. Small effusions re main evident. Tracheostomy tube remains in good position. CONCLUSION: Improving pulmonary status with resolving pulmonary edema. Mckay Marques MD on June 22, 2016 at 11:35 Board Certified Radiologist. This report was verified electronically.
[2016-06-23] VITALS (17 sets, daily range): BP systolic 92–145; BP diastolic 51–67; PULSE 74–99; RESP 12–30; TEMP 97.2–98.7; O2SAT 100
[2016-06-23] MEDS: HEPARIN SODIUM - SQ 10,000 UNITS/ML VIAL SQ SCH ×2 (02:56→14:00)
[2016-06-23] MEDS: METOPROLOL TARTRATE 25 MG TAB PO/NG SCH ×5 (02:56→23:50)
[2016-06-23] MEDS: CHLORHEXIDINE 0.12% (ORAL KIT) 15 ML CUP MT SCH ×3 (02:57→19:57)
[2016-06-23] MEDS: INSULIN NovoLIN REGULAR SUPPLEMENTAL SCALE SQ SCH ×4 (03:00→20:08)
[2016-06-23] MEDS: CHLORHEXIDINE GLUCONATE 2 % 1 PACK (2 CLOTHS) TOP SCH (03:02)
--- NOTE | 2016-06-23 05:33 | RADRPT ---
EXAM DATE/TIME: 06/23/2016 03:02 [facility] COMPARISON: CHEST SINGLE AP, June 22, 2016, 10:37. INDICATIONS : Shortness of breath, possible pulmonary disease. MEDICAL HISTORY : Renal insufficiency, chronic. Myocardial infarction. Stroke. SURGICAL HISTORY : None. ENCOUNTER: Subsequent ACUITY: 1 month PAIN SCORE: Non-responsive. LOCATION: Bilateral chest FINDINGS: Perihilar and basilar predominant consolidation with small bilateral effusions all not significantly changed. Mild cardiomegaly is stable. No pneumothorax. Trach collar again noted. CONCLUSION: No significant change. Minh Aponte MD on June 23, 2016 at 5:31 Board Certified Radiologist. This report was verified electronically.
[2016-06-23] MEDS: PROPOFOL 1000 MG/100 ML INJ 100 ML IV SCH ×2 (05:50→08:04)
[2016-06-23 06:13] LABS: AUTOMATED NEUTROPHIL # 4.4 TH/MM3 (1.8-7.7); BASOPHIL # 0.1 TH/MM3 (0-0.2); BASOPHIL % 0.9 % (0.0-2.0); EOSINOPHIL # 0.1 TH/MM3 (0-0.4); EOSINOPHIL % 1.7 % (0.0-4.0); LYMPH % 8.6 % (9.0-44.0); LYMPHOCYTE # 0.5 TH/MM3 (1.0-4.8); MEAN CELL VOLUME 87.4 FL (80.0-100.0); MEAN CORPUSCULAR HEMOGLOBIN 30.5 PG (27.0-34.0); MEAN CORPUSCULAR HGB CONC 34.9 % (32.0-36.0); MONO % 13.3 % (0.0-8.0); NEUT % 75.5 % (16.0-70.0); PLATELET COUNT 174 TH/MM3 (150-450); RED BLOOD COUNT 2.21 MIL/MM3 (4.50-5.90); RED CELL DISTRIBUTION WIDTH 14.9 % (11.6-17.2); WHITE BLOOD COUNT 5.9 TH/MM3 (4.0-11.0)
[2016-06-23 06:29] LABS: ALT (GPT) 20 U/L (12-78); ANION GAP 9 MEQ/L (5-15); AST (GOT) 44 U/L (15-37); BICARBONATE 30.9 MEQ/L (21.0-32.0); BLOOD UREA NITROGEN 54 MG/DL (7-18); CHLORIDE 96 MEQ/L (98-107); GLOMERULAR FILTRATION RATE 12 ML/MIN (>89); POTASSIUM 3.7 MEQ/L (3.5-5.1); SODIUM (NA) 136 MEQ/L (136-145)
[2016-06-23 06:31] LABS: ALKALINE PHOSPHATASE 100 U/L (45-117); TOTAL BILIRUBIN ADULT 0.5 MG/DL (0.2-1.0)
[2016-06-23 06:39] LABS: HEMO FLAGS DIFF FINAL
[2016-06-23 06:47] LABS: HEMATOCRIT 19.3 % (39.0-51.0)
[2016-06-23] MEDS: PANTOPRAZOLE SODIUM 40 MG VIAL IV SCH (08:04)
[2016-06-23] MEDS: NEOMYCIN/POLYMYXIN/BACITRACIN OINT 15 GM TUBE TOPICAL SCH ×2 (09:00→19:58)
[2016-06-23] MEDS: CALCIUM ACETATE 667 MG CAP NG SCH ×3 (09:00→17:20)
[2016-06-23] MEDS: SODIUM CHLORIDE 0.9% FLUSH 5 ML FLUSH IV FLUSH SCH ×2 (09:00→19:57)
[2016-06-23] MEDS: cloNIDine HCL 0.1 MG TAB PO SCH ×3 (09:00→17:20)
[2016-06-23] MEDS: hydrALAZINE HCL 50 MG TAB PO SCH ×3 (09:00→17:20)
[2016-06-23] MEDS: DOCUSATE SODIUM 100 MG/10 ML UDC PO SCH ×2 (09:00→19:57)
--- NOTE | 2016-06-23 11:02 | HHI.NPPN ---
Subjective General Problems: Anemia Renal Failure: Chronic, End Stage Renal Disease Review of Systems General General Remarks unable to evaluate due to mental status Objective Data Data 06/22/16 06/23/16 19:00 07:00 Intake Total 565 ml 889 ml Output Total 100 ml 400 ml Balance 465 ml 489 ml IV Total 60 ml Tube Feeding 405 ml 769 ml Tube Irrigant 100 ml Other 120 ml Output Urine Total 0 ml 200 ml Stool Total 100 ml 200 ml Vital Signs Date Time Temp Pulse Resp B/P Pulse Ox O2 Delivery O2 Flow Rate FiO2 06/23/16 10:51 100 T-piece 5.00 28 06/23/16 10:00 79 06/23/16 08:53 100 35 06/23/16 08:00 74 06/23/16 06:00 78 06/23/16 04:10 100 35 06/23/16 04:00 77 06/23/16 04:00 98.3 75 12 104/51 100 06/23/16 04:00 40 06/23/16 02:00 75 06/23/16 01:10 100 35 06/23/16 00:00 94 06/23/16 00:00 98.2 97 16 137/61 100 06/22/16 22:03 100 35 06/22/16 22:00 77 06/22/16 20:15 100 35 06/22/16 20:00 98.3 93 24 107/53 100 06/22/16 20:00 83 06/22/16 19:30 100 T-piece 6.00 40 06/22/16 16:00 98.3 92 21 118/59 100 06/22/16 12:00 97.7 92 25 167/102 100 06/22/16 11:45 99 T-piece 6.00 40 -: 06/23/16 0433 06/23/16 0433 Tubes & Lines Comment trach, PEG Drip Comment Precedex Physical Exam General Appearance: Well Developed, Well Nourished, Comfortable Eyes Eye Exam: Pupils Equal, Pupils Reactive Neck Neck Exam: Neck Supple Pulmonary Resp Exam: Breath Sounds Equal, Crackles, Decreased Bases, Diminished Breath Sounds Cardiology CV Exam: Regular, Normal Sinus Rhythm, Good Perfusion Gastrointestinal/Abdomen GI Exam: Soft, Non-Tender, Bowel Sounds Present, Non-Distended Musculoskeletal MS Exam: Joints Intact, Normal Tone Integumentary Skin Exam: Clear, Warm, Dry, Intact Extremeties Extremities Exam: Pedal Pulses Palpable, Trace Edema Neurologic Neuro Exam: Unresponsive, Sedated Assessment/Plan Discussed Condition With: Patient Assessment Summary: Anemia of CKD, Hypertension, End Stage Renal Disease Electrolyte Assessment: Hypocalcemia Problem List: (1) ESRD on dialysis Plan: Continue dialysis T-Th-Sat, Hemodialysis due today PRBC Ordered Epo with HD pt post cardiac arrest he has encephalopathy continue to follow BP Status post PEG tube in place seen during HD UF 2.3 l 1 u prbc (2) Anemia Plan: Last hemoglobin 6.7 PRBC ordered (3) Hypertension Plan: BP lower may adjust He is on metoprolol, hydralazine, clonidine with hold parameters (4) DM (diabetes mellitus) Plan: continue insulin coverage goal to maintain blood glucose between 140 and 180 off D10 , tube feeding was resumed (5) NSTEMI (non-ST elevated myocardial infarction) Plan: Troponin I elevated post cardiac arrest, chest compressions. he had catheterization in January 2016, normal coronary arteries (6) Elevated LFTs Plan: improved. (7) Cocaine abuse Plan: Cessation has been recommended. I have discussed with his girlfriend. (8) Encephalopathy Plan: vent management, s/p trach placement Problem Qualifiers (1) Hypertension: Qualified Code: I10 - Essential hypertension (2) DM (diabetes mellitus): Qualified Code: E11.22 - Type 2 diabetes mellitus with diabetic chronic kidney disease, unspecified CKD stage, unspecified prison insulin use status Willy Arellano MD Jun 23, 2016 11:02
[2016-06-23] MEDS: EPOETIN ALFA 10,000 UNITS/ML VIAL IV PRN (16:33)
--- NOTE | 2016-06-23 18:38 | HHI.CCPN ---
Subjective Remarks/Hospital Course 05/28: 60 yo AAM with PMH of HTN, stroke without residual deficit, DM, nonischemic cardiomyopathy (EF 40% and stage I diastolic dysfunction) Cocaine abuse, Hepatitis C, ESRD on HD T/R/Sat who presents to [facility] for 2 day history of SOB. He reported symptoms started 1/ after he received hemodialysis. He reported a nonproductive cough without fevers, chills, or chest pain. His workup revealed a normal white count and CXR that demonstrated RLL consolidation. His potassium was 6.8. While preparations were being made to administer medications to address his hyperkalemia he developed bradycardia and PEA arrest. He underwent CPR and received epinephrine and 1 amp of bicarbonate. It was return of spontaneous circulation after 8 minutes. He was intubated by the emergency department physician Dr. Clancy. Dr. Francisco with nephrology was consulted and he made arrangements for urgent dialysis which is taking place currently. Target removal 3.8 L per HD RN. Postintubation CXR demonstrates R base infiltrate but also appears there is right pleural effusion. Influenza screen negative. Receive Zosyn and azithromycin in the emergency department. 05/29: Sedated, arousable, not following commands, orally intubated on mechanical ventilation. Gets agitated on lightening sedation and has a strong gag reflex. 05/30: Sedated, arousable, not following commands. Remains orally intubated on mechanical ventilation. Failed C Pap trial today. Dialyzed earlier. 05/31: Sedated/encephalopathic on lightening sedation, not following commands. Remains orally intubated on mechanical ventilation. Failed C Pap trials yesterday. 2-D echo just being completed today. 06/01 No events overnight. On Precedex drip unresponsive and doesn't follow commands. Afebrile. 06/02 Patient s/p HD yesterday with removal 1.5L , on Precedex infusion for sedation. 06/03 No events overnight. Sedated with fentanyl and intubated. s/p HD yesterday with removal 1.5L. 06/04 Patient remains sedated and intubated. Afebrile. Did not tolerate CPAP trials yesterday as he became tachypneic. 06/05 Patient s/p HD yesterday with removal 2L. Sedated with Fentanyl and intubated. Afebrile. Patient gets very agitated and restless when sedation is weaned off. 06/06 Patient is sedated with Fentanyl placed on Diprivan as well last night. Gets agitated and tachypneic on CPAP trials. s/p HD yesterday with removal 2L. 06/07: Remains sedated/encephalopathic, orally intubated on mechanical ventilation. Failed C Pap trials yesterday. 06/08: Remains sedated/encephalopathic, orally intubated on mechanical ventilation. Gets agitated on lightening sedation however not following commands. We'll attempt Precedex and titrate down on fentanyl/propofol 06/09: Remains sedated/encephalopathic, orally intubated on mechanical ventilation. On Precedex/propofol/fentanyl. Will attempt transitioning to Precedex alone to control agitation for C Pap trials. 06/10: Still requiring Precedex/propofol and fentanyl for CPAP trials. Patient continues to be extremely agitated and currently unable to extubate. Not following commands. Positive BM. Tolerating tube feeds. Afebrile. 06/11: On Precedex drip currently. -3 L of hemodialysis. Moving all 4 extremities but not following commands. 06/12: no changes. plan for PEG and Trach tomorrow. 06/13: plan for trach today. discussed with health care proxy and she still has concerns about possible trach. will touch base with palliative care. have talked with Dr. Lee from trauma, and plan for trach at some point depending on his schedule and per family discussions. 06/14: plan for trach today. significant bleeding from around PEG site. GI aware. 2 units prbc ordered. coags ordered. 0.3mcg/kg DDAVP ordered. 06/15: trach yesterday by Dr. Lee. trach site and PEG site with ongoing oozing despite FFP, platelets, DDAVP. I talked with Dr. Francisco and he is ok with iv contrast for imaging if needed, given that this is ESRD with no hope of renal recovery. 06/16: Continues to oozing from tracheostomy site. Packed with Surgicel but continues to ooze. No oozing from PEG tube site. Currently nothing by mouth. 2 bowel movements. Awake and does follow commands 06/17: Afebrile. No more bleeding from tracheostomy site. PEG site intact. Positive BM. Awake and following commands. 06/18: On CPAP, getting HD. Follows commands. Trial of TP today 06/19: No acute events overnight tolerating C Pap. Unable to place on T piece yesterday he developed tidal volumes and tachypnea. Continues to follow commands 06/20: Sitting up in stretcher chair on TP. Upper chest wheezing. CXR shows improving infiltrates Subjective 06/21: Patient failed to be stopped in 2-3 hours yesterday. Currently on CPAP. Chest x-ray shows diffuse bilateral infiltrates increased from previous. Somnolent 06/22. Sedated on propofol. had HD with fluid removal yesterday. CXR shows significant improvement in bilateral infiltrates. Not following commands on propofol 06/23: Patient tolerating T piece today. Got 1 units PRBC with hemodialysis for hemoglobin of 6.7. No obvious bleeding Objective Vital Signs Date Time Temp Pulse Resp B/P Pulse Ox O2 Delivery O2 Flow Rate FiO2 06/23/16 16:00 40 06/23/16 16:00 99 06/23/16 16:00 98.1 14 140/63 100 06/23/16 10:51 T-piece 5.00 Intake and Output 06/22/16 06/22/16 06/23/16 08:00 16:00 00:00 Intake Total 866 ml 565 ml 557 ml Output Total 150 ml 100 ml 200 ml Balance 716 ml 465 ml 357 ml Result Diagram: 06/23/16 0433 06/23/16 0433 Imaging Last Impressions Chest X-Ray 06/16/16 0600 Signed Impressions: Service Date/Time: May 04:06 - CONCLUSION: Increasing bibasilar infiltrates. Free air under right hemidiaphragm. Dudley Akbar MD Abdomen X-Ray 06/16/16 0000 Signed Impressions: Service Date/Time: May 09:12 - CONCLUSION: Apparent appropriate placement of gastric tube placement. Amaris Rosenberg MD Abdomen/Pelvis CT 06/15/16 0000 Signed Impressions: Service Date/Time: Wednesday, June 15, 2016 13:16 - CONCLUSION: Significant free intraperitoneal air. Consolidative changes in both bases with small bilateral pleural effusions. Mikhail Abrams MD FACR Brain MRI 06/10/16 0000 Signed Impressions: Service Date/Time: Friday, June 10, 2016 20:14 - CONCLUSION: 1. Mild chronic-appearing ischemic changes in the periventricular white matter slightly progressed from 2014. No recent infarct, mass effect or midline shift. No hydrocephalus. Lakhwinder Pringle MD Liver Ultrasound 06/01/16 0000 Signed Impressions: Service Date/Time: Wednesday, June 01, 2016 15:38 - CONCLUSION: 1. Bilateral pleural effusions. 2. Thick-walled gallbladder with minimal pericholecystic fluid. If there is clinical concern for acute cholecystitis a hepatobiliary scan may be helpful to confirm cystic duct obstruction. 3. Minimal ascites. 4. Echogenic atrophic right kidney. 5. Mild nonspecific prominence of the main pancreatic duct. Enzo Price MD Head CT 05/29/16 0000 Signed Impressions: Service Date/Time: Sunday, May 29, 2016 03:03 - CONCLUSION: Age- appropriate atrophy, stable from prior in September 2015. No acute findings. Earnest Torre MD Lower Extremity Ultrasound 05/28/16 0000 Signed Impressions: Service Date/Time: Saturday, May 28, 2016 22:27 - CONCLUSION: Negative for deep venous thrombosis bilateral lower extremity. Earnest Torre MD Objective Remarks GENERAL: 60 yo AA male, critically ill, s/p trach and PEG tube. No obvious bleeding SKIN: Warm and dry. No rash HEAD: Normocephalic. EYES: Pupils minimally reactive at 2 mm bilaterally. No scleral icterus. No injection or drainage. NECK: Supple, trachea midline. No JVD. trach in place CARDIOVASCULAR: Regular rate and rhythm with S1, S2. No S4. II/ systolic murmur at the apex RESPIRATORY: Breath sounds equal bilaterally. Bilateral crackles improved from yesterday GASTROINTESTINAL: Abdomen soft, non-tender, nondistended. Clean dry and intact PEG site. MUSCULOSKELETAL: No peripheral edema. Palpable thrill left AV fistula. Neuro: Arousable but not following commands on propofol. Moves all 4 extremities equally and spontaneous. A/P Assessment and Plan NEURO: Acute encephalopathy, post cardiac arrest. History of stroke without residual deficit (per friend's report) History of cocaine abuse Posttraumatic stress disorder As needed fentanyl for pain management. Neurologically improving Discontinue propofol start Precedex EEG 06/12 revealed mild sleep. No seizure activity noted. MRI brain revealed chronic vascular changes. No acute findings Neuro has followed-Dr. Wilks RESP: Acute respiratory failure Healthcare associated pneumonia Intubated in ED 05/28/16 following cardiac arrest Currently tolerating CPAP, place on TP 12 hours from a.m. DuoNeb q6 hours. Albuterol q2 prn. Ventilator Bundle. s/p trach 06/14. Tracheotomy site packed with Surgicel. Dr. Lee notified 06/16 and placed 2 sutures. No further bleeding. Chest x-ray today shows improving bilateral interstitial infiltrates CV: Cardiac arrest, secondary to hyperkalemia Pulmonary edema Nonischemic cardiomyopathy secondary to HTN, cocaine abuse Hypertension Elevated Troponin: ? NSTEMI Monitor HR and BP keep MAP>65mmHg Continue home meds: Hydralazine 25 tid. Clonidine 0.1 tid., Lopressor 25mg Q6 ( 100 mg twice a day at home) ASA 81 mg daily will be continued. Echo 05/31: EF 25-30%, no RWMA. Mild MR/TR. MEGAN 36 mmHg cardiac cath 12/09/2012 - EF 40%, normal coronaries. Elevated troponin, cardiac arrest. Per cardiology-no intervention planned. Had hemodialysis yesterday GI: Hepatitis C Elevated LFT Free air - likely secondary to EGD/tube feeding insufflation Daily TF-Nepro@50ml/hr. Monitor LFT's US liver: Bilateral pleural effusions. Thick-walled gallbladder with minimal pericholecystic fluid. Minimal ascites. Echogenic atrophic right kidney. Mild nonspecific prominence of the main pancreatic duct. status post suture by Dr. Zander Tabares. No bleeding actively from PEG site currently Protonix for GI prophylaxis Colace for bowel regimen FEN/RENAL: ESRD Acute severe hyperkalemia - resolved Hyperphosphatemia Intermittent hemodialysis per nephrology (Dr. Francisco) Emergent HD 05/28 due to potassium of 6.8 with bradycardia and cardiac arrest. Monitor renal function, I/O's, avoid nephrotoxins. s/p HD today Continue PhosLo 667 mg 3 times a day ID: Acute healthcare associated pneumonia Received Zosyn and azithromycin in the emergency department 05/28. s/p Zosyn 2.25 g IV every 8 hours 05/29 - 06/12. Azithro x 10 days.05/28 nasal washing negative for Influenza. continue to monitor Pertinent cultures 05/28 - blood cultures 2 - 1 out of 2 corynebacterium not Jk 05/29 Sputum- beta strep not A HEME: Anemia requiring transfusion, previously from acute blood loss from PEG tube Thrombocytopenia 1 unit prbc, 1 FFP, 1 plt. DDAVP given 06/15 Given 1 unit PRBC 06/16, additional 1 unit PRBC given today Coags within normal limits Received 16 mg DDAVP and 5000 mg amicar Monitor CBC. Currently 7.1 Hb repeat afternoon, transfuse if needed Dr. Kevin/hematology following. Von Willebrand factor pending ENDO: Diabetes mellitus Medium dose Insulin sliding scale with bedside glucose every 6 hours PROPH: holding pharmacologic DVT prophylaxis in the setting of active bleeding resume in 24 hours if no bleeding, resume today. Protonix 40 mg IV daily for stress ulcer prophylaxis. Doppler US LE negative for DVT ACCESS: Peripheral IV providing adequate access at this time. Left AV fistula accessed for hemodialysis Full code Palliative care is following to assist with deciding goals of therapy. Critical Care: The total critical care time was 30 minutes. Time to perform other separately billable procedures was not included in the critical care time. Sanchez Wilkinson MD Jun 23, 2016 18:38
[2016-06-23] MEDS: DEXMEDETOMIDINE INJ 50 ML IV SCH ×2 (18:55→20:02)
--- NOTE | 2016-06-23 19:34 | RADRPT ---
EXAM DATE/TIME: 06/23/2016 18:38 [facility] COMPARISON: CHEST SINGLE AP, June 23, 2016, 3:02. INDICATIONS : Shortness of breath, possible pulmonary disease. MEDICAL HISTORY : Renal insufficiency, chronic. Myocardial infarction. Stroke. SURGICAL HISTORY : None. ENCOUNTER: Subsequent ACUITY: 1 month PAIN SCORE: Non-responsive. LOCATION: Bilateral chest FINDINGS: Small to moderate pleural effusions and diffuse bilateral parenchymal opacities are modestly worse in the interim. There is moderate cardiomegaly also appears slightly worse. No pneumothorax. Trach collar again noted. CONCLUSION: Worsening airspace disease and effusions, probably on the basis of worsening failure. Minh Aponte MD on June 23, 2016 at 19:30 Board Certified Radiologist. This report was verified electronically.
[2016-06-24] VITALS (16 sets, daily range): BP systolic 111–150; BP diastolic 54–72; PULSE 72–112; RESP 12–18; TEMP 98.2–98.7; O2SAT 98–100
[2016-06-24] MEDS: DEXMEDETOMIDINE INJ 50 ML IV SCH ×3 (00:52→09:05)
[2016-06-24] MEDS: HEPARIN SODIUM - SQ 10,000 UNITS/ML VIAL SQ SCH ×2 (02:41→14:45)
[2016-06-24] MEDS: INSULIN NovoLIN REGULAR SUPPLEMENTAL SCALE SQ SCH ×4 (02:49→20:35)
[2016-06-24] MEDS: CHLORHEXIDINE GLUCONATE 2 % 1 PACK (2 CLOTHS) TOP SCH (02:50)
[2016-06-24 05:03] LABS: AUTOMATED NEUTROPHIL # 7.2 TH/MM3 (1.8-7.7); BASOPHIL # 0.1 TH/MM3 (0-0.2); BASOPHIL % 1.1 % (0.0-2.0); EOSINOPHIL # 0.1 TH/MM3 (0-0.4); HEMATOCRIT 27.8 % (39.0-51.0); HEMO FLAGS DIFF FINAL; LYMPH % 8.4 % (9.0-44.0); LYMPHOCYTE # 0.8 TH/MM3 (1.0-4.8); MEAN CELL VOLUME 87.8 FL (80.0-100.0); MEAN CORPUSCULAR HEMOGLOBIN 30.2 PG (27.0-34.0); MEAN CORPUSCULAR HGB CONC 34.4 % (32.0-36.0); NEUT % 78.5 % (16.0-70.0); PLATELET COUNT 216 TH/MM3 (150-450); RED BLOOD COUNT 3.16 MIL/MM3 (4.50-5.90); RED CELL DISTRIBUTION WIDTH 14.8 % (11.6-17.2); WHITE BLOOD COUNT 9.2 TH/MM3 (4.0-11.0)
[2016-06-24] MEDS: METOPROLOL TARTRATE 25 MG TAB PO/NG SCH ×3 (05:35→17:17)
[2016-06-24 05:38] LABS: ALKALINE PHOSPHATASE 120 U/L (45-117); ALT (GPT) 21 U/L (12-78); ANION GAP 11 MEQ/L (5-15); AST (GOT) 46 U/L (15-37); BICARBONATE 31.3 MEQ/L (21.0-32.0); BLOOD UREA NITROGEN 39 MG/DL (7-18); CHLORIDE 94 MEQ/L (98-107); GLOMERULAR FILTRATION RATE 16 ML/MIN (>89); SODIUM (NA) 136 MEQ/L (136-145); TOTAL BILIRUBIN ADULT 0.5 MG/DL (0.2-1.0)
[2016-06-24] MEDS: CHLORHEXIDINE 0.12% (ORAL KIT) 15 ML CUP MT SCH ×2 (08:00→20:25)
[2016-06-24] MEDS: PANTOPRAZOLE SODIUM 40 MG VIAL IV SCH (08:41)
[2016-06-24] MEDS: CALCIUM ACETATE 667 MG CAP NG SCH ×3 (08:41→17:17)
[2016-06-24] MEDS: cloNIDine HCL 0.1 MG TAB PO SCH ×3 (08:41→17:17)
[2016-06-24] MEDS: DOCUSATE SODIUM 100 MG/10 ML UDC PO SCH ×2 (08:41→20:23)
[2016-06-24] MEDS: SODIUM CHLORIDE 0.9% FLUSH 5 ML FLUSH IV FLUSH SCH ×2 (08:41→20:23)
[2016-06-24] MEDS: hydrALAZINE HCL 50 MG TAB PO SCH ×3 (08:41→17:17)
[2016-06-24] MEDS: NEOMYCIN/POLYMYXIN/BACITRACIN OINT 15 GM TUBE TOPICAL SCH ×2 (09:05→20:24)
[2016-06-24] MEDS ORDERED: DEXMEDETOMIDINE INJ 1,000 MCG in SODIUM CHLOR 0.9% 250 ML INJ 240 ML IV SCH (11:00)
--- NOTE | 2016-06-24 11:52 | HHI.NPPN ---
Subjective General Problems: Anemia Renal Failure: Chronic, End Stage Renal Disease Review of Systems General General Remarks unable to evaluate due to mental status Objective Data Data 06/23/16 06/24/16 19:00 07:00 Intake Total 680 ml 1138 ml Output Total 2450 ml 175 ml Balance -1770 ml 963 ml IV Total 130 ml 371 ml Tube Feeding 490 ml 737 ml Other 60 ml 30 ml Output Urine Total 50 ml 175 ml Stool Total 100 ml Hemodialysis 2300 ml Vital Signs Date Time Temp Pulse Resp B/P Pulse Ox O2 Delivery O2 Flow Rate FiO2 06/24/16 10:00 83 06/24/16 09:18 100 T-piece 5.00 28 06/24/16 09:15 98 T-Piece 28 06/24/16 08:22 100 35 06/24/16 08:00 98.4 72 12 150/72 100 06/24/16 08:00 72 06/24/16 08:00 40 06/24/16 06:00 80 06/24/16 04:00 40 06/24/16 04:00 98.7 84 17 111/59 100 06/24/16 04:00 84 06/24/16 02:00 77 06/24/16 01:36 98 35 06/24/16 00:00 98.3 80 12 116/56 100 06/24/16 00:00 40 06/24/16 00:00 80 06/23/16 22:00 85 06/23/16 21:39 100 35 06/23/16 20:00 98.7 97 30 145/67 100 06/23/16 20:00 97 06/23/16 18:00 91 06/23/16 16:00 40 06/23/16 16:00 99 06/23/16 16:00 98.1 99 14 140/63 100 06/23/16 14:00 94 06/23/16 12:00 40 06/23/16 12:00 98.2 93 14 103/57 100 06/23/16 12:00 93 -: 06/24/16 0349 06/24/16 0349 Tubes & Lines Comment trach, PEG Drip Comment Precedex Physical Exam General Appearance: Well Developed, Well Nourished, Comfortable Eyes Eye Exam: Pupils Equal, Pupils Reactive Neck Neck Exam: Neck Supple Pulmonary Resp Exam: Breath Sounds Equal, Crackles, Decreased Bases, Diminished Breath Sounds Cardiology CV Exam: Regular, Normal Sinus Rhythm, Good Perfusion Gastrointestinal/Abdomen GI Exam: Soft, Non-Tender, Bowel Sounds Present, Non-Distended Musculoskeletal MS Exam: Joints Intact, Normal Tone Integumentary Skin Exam: Clear, Warm, Dry, Intact Extremeties Extremities Exam: Pedal Pulses Palpable, Trace Edema Neurologic Neuro Exam: Unresponsive, Sedated Assessment/Plan Discussed Condition With: Patient Assessment Summary: Anemia of CKD, Hypertension, End Stage Renal Disease Electrolyte Assessment: Hypocalcemia Problem List: (1) ESRD on dialysis Plan: Continue dialysis T--Mon, Hemodialysis done yesterday Hb 9.6 post PRBC on Epogen (2) Anemia Plan: Last hemoglobin stable (3) Hypertension Plan: BP lower may adjust He is on metoprolol, hydralazine, clonidine with hold parameters (4) DM (diabetes mellitus) Plan: continue insulin coverage goal to maintain blood glucose between 140 and 180 off D10 , tube feeding was resumed (5) NSTEMI (non-ST elevated myocardial infarction) Plan: Troponin I elevated post cardiac arrest, chest compressions. he had catheterization in January 2016, normal coronary arteries (6) Elevated LFTs Plan: improved. (7) Cocaine abuse Plan: Cessation has been recommended. I have discussed with his girlfriend. (8) Encephalopathy Plan: vent management, s/p trach placement Problem Qualifiers (1) Hypertension: Qualified Code: I10 - Essential hypertension (2) DM (diabetes mellitus): Qualified Code: E11.22 - Type 2 diabetes mellitus with diabetic chronic kidney disease, unspecified CKD stage, unspecified terminal gauger insulin use status Willy Arellano MD Jun 24, 2016 11:52
--- NOTE | 2016-06-24 15:12 | HHI.HCPN ---
Reason for visit a. To assist with evaluation and management of symptoms including: dyspnea, encephalopathy b. To assist medical decision maker(s) with: better understanding of current medical conditions; weighing benefits/burdens of medical treatment options; making medical treatment decisions. Subjective/Interval History Patient seen today to follow-up on comfort , goals with decision makers. Pt has remained in icu. stable-- sp tracheostomy, PEG. on/off of cpap, T piece trial today. Has been on and off of Precedex alternating with Diprivan for episodes of restlessness and agitation. H&H stable today post transfusion RBCs with dialysis yesterday. Chest x-ray yesterday with worsening of airspace disease, effusions. He is currently requiring low-dose Precedex for some agitation though nursing indicates he has been calm and more cooperative on the Precedex today. Patient seen in room with significant other/HCP Neema at bedside. Updated Neema on current conditions, treatments in place. She seems to have a very simple understanding of things. To my exam patient is alert he does follow simple commands. He does stick out tongue to command. He smiles. Keeps eyes closed for the most part. Does not Nod to yes or no questions. No apparent discomfort or distress during my exam. Advance Directives Living Will: Never completed Health Care Surrogate: Never completed Durable Power of Cell Stripper: Never completed Objective Vital Signs Date Time Temp Pulse Resp B/P Pulse Ox O2 Delivery O2 Flow Rate FiO2 06/24/16 14:00 80 06/24/16 12:00 85 06/24/16 12:00 98.2 85 17 120/54 100 06/24/16 10:00 83 06/24/16 09:18 100 T-piece 5.00 28 06/24/16 09:15 98 T-Piece 28 06/24/16 08:22 100 35 06/24/16 08:00 98.4 72 12 150/72 100 06/24/16 08:00 72 06/24/16 08:00 40 06/24/16 06:00 80 06/24/16 04:00 40 06/24/16 04:00 98.7 84 17 111/59 100 06/24/16 04:00 84 06/24/16 02:00 77 06/24/16 01:36 98 35 06/24/16 00:00 98.3 80 12 116/56 100 06/24/16 00:00 40 06/24/16 00:00 80 06/23/16 22:00 85 06/23/16 21:39 100 35 06/23/16 20:00 98.7 97 30 145/67 100 06/23/16 20:00 97 06/23/16 18:00 91 06/23/16 16:00 40 06/23/16 16:00 99 06/23/16 16:00 98.1 99 14 140/63 100 Intake & Output 06/24/16 06/24/16 07:00 19:00 Intake Total 1138 ml 620 ml Output Total 175 ml 0 ml Balance 963 ml 620 ml IV Total 371 ml 120 ml Tube Feeding 737 ml 420 ml Other 30 ml 80 ml Output Urine Total 175 ml 0 ml Physical Exam CONSTITUTIONAL/GENERAL: This is an adequately nourished patient, in no apparent distress, sedated on T piece. TUBES/LINES/DRAINS: PIV upper extremity, tracheostomy, PEG tube, restraints upper extremities CARDIOVASCULAR: Regular rate and rhythm without murmurs. peripheral pulses symmetric. RESPIRATORY/CHEST: Symmetric, unlabored respirations via trach to T piece. 28% FiO2. Clear to auscultation. GASTROINTESTINAL: Abdomen soft, nondistended. No hepato-splenomegaly, or palpable masses. Bowel sounds active. TF infusing via PEG tube. NEUROLOGICAL: Sedated on Precedex. Arouses some to exam. Moves all 4 extremities. Follows simple commands. Sticks out tongue to command. Smiles. Does not nod to my yes/no questions.. PSYCHIATRIC: Limited assessment due to clinical conditionno apparent distress/ anxiety during my exam Diagnostic Tests Laboratory Laboratory Tests Test 06/23/16 06/23/16 06/24/16 04:33 09:42 03:49 White Blood Count 5.9 TH/MM3 9.2 TH/MM3 (4.0-11.0) (4.0-11.0) Red Blood Count 2.21 MIL/MM3 3.16 MIL/MM3 (4.50-5.90) (4.50-5.90) Hemoglobin 6.7 GM/DL 9.6 GM/DL (13.0-17.0) (13.0-17.0) Hematocrit 19.3 % 27.8 % (39.0-51.0) (39.0-51.0) Mean Corpuscular Volume 87.4 FL 87.8 FL (80.0-100.0) (80.0-100.0) Mean Corpuscular Hemoglobin 30.5 PG 30.2 PG (27.0-34.0) (27.0-34.0) Mean Corpuscular Hemoglobin 34.9 % 34.4 % Concent (32.0-36.0) (32.0-36.0) Red Cell Distribution Width 14.9 % 14.8 % (11.6-17.2) (11.6-17.2) Platelet Count 174 TH/MM3 216 TH/MM3 (150-450) (150-450) Mean Platelet Volume 10.7 FL 10.9 FL (7.0-11.0) (7.0-11.0) Neutrophils (%) (Auto) 75.5 % 78.5 % (16.0-70.0) (16.0-70.0) Lymphocytes (%) (Auto) 8.6 % 8.4 % (9.0-44.0) (9.0-44.0) Monocytes (%) (Auto) 13.3 % 11.0 % (0.0-8.0) (0.0-8.0) Eosinophils (%) (Auto) 1.7 % (0.0-4.0) 1.0 % (0.0-4.0) Basophils (%) (Auto) 0.9 % (0.0-2.0) 1.1 % (0.0-2.0) Neutrophils # (Auto) 4.4 TH/MM3 7.2 TH/MM3 (1.8-7.7) (1.8-7.7) Lymphocytes # (Auto) 0.5 TH/MM3 0.8 TH/MM3 (1.0-4.8) (1.0-4.8) Monocytes # (Auto) 0.8 TH/MM3 1.0 TH/MM3 (0-0.9) (0-0.9) Eosinophils # (Auto) 0.1 TH/MM3 0.1 TH/MM3 (0-0.4) (0-0.4) Basophils # (Auto) 0.1 TH/MM3 0.1 TH/MM3 (0-0.2) (0-0.2) CBC Comment DIFF FINAL DIFF FINAL Differential Comment Sodium Level 136 MEQ/L 136 MEQ/L (136-145) (136-145) Potassium Level 3.7 MEQ/L 4.0 MEQ/L (3.5-5.1) (3.5-5.1) Chloride Level 96 MEQ/L 94 MEQ/L (98-107) (98-107) Carbon Dioxide Level 30.9 MEQ/L 31.3 MEQ/L (21.0-32.0) (21.0-32.0) Anion Gap 9 MEQ/L (5-15) 11 MEQ/L (5-15) Blood Urea Nitrogen 54 MG/DL (7-18) 39 MG/DL (7-18) Creatinine 6.08 MG/DL 4.68 MG/DL (0.60-1.30) (0.60-1.30) Estimat Glomerular Filtration 12 ML/MIN (>89) 16 ML/MIN (>89) Rate Random Glucose 89 MG/DL 120 MG/DL (74-106) (74-106) Calcium Level 9.1 MG/DL 8.8 MG/DL (8.5-10.1) (8.5-10.1) Total Bilirubin 0.5 MG/DL 0.5 MG/DL (0.2-1.0) (0.2-1.0) Aspartate Amino Transf 44 U/L (15-37) 46 U/L (15-37) (AST/SGOT) Alanine Aminotransferase 20 U/L (12-78) 21 U/L (12-78) (ALT/SGPT) Alkaline Phosphatase 100 U/L 120 U/L (45-117) (45-117) Total Protein 6.2 GM/DL 7.2 GM/DL (6.4-8.2) (6.4-8.2) Albumin 2.4 GM/DL 2.5 GM/DL (3.4-5.0) (3.4-5.0) Blood Type O POSITIVE Antibody Screen NEGATIVE Crossmatch Leukocyte-Reduced Red Blood Cells Blood Bank Comment Result Diagram: 06/24/16 0349 06/24/16 0349 Imaging Last Impressions Chest X-Ray 06/23/16 0600 Signed Impressions: Service Date/Time: June 03:02 - CONCLUSION: No significant change. Minh Aponte MD Abdomen X-Ray 06/16/16 0000 Signed Impressions: Service Date/Time: May 09:12 - CONCLUSION: Apparent appropriate placement of gastric tube placement. Amaris Rosenberg MD Abdomen/Pelvis CT 06/15/16 0000 Signed Impressions: Service Date/Time: Wednesday, June 15, 2016 13:16 - CONCLUSION: Significant free intraperitoneal air. Consolidative changes in both bases with small bilateral pleural effusions. Mikhail Abrams MD FACR Brain MRI 06/10/16 0000 Signed Impressions: Service Date/Time: Friday, June 10, 2016 20:14 - CONCLUSION: 1. Mild chronic-appearing ischemic changes in the periventricular white matter slightly progressed from 2014. No recent infarct, mass effect or midline shift. No hydrocephalus. Lakhwinder Pringle MD Liver Ultrasound 06/01/16 0000 Signed Impressions: Service Date/Time: Wednesday, June 01, 2016 15:38 - CONCLUSION: 1. Bilateral pleural effusions. 2. Thick-walled gallbladder with minimal pericholecystic fluid. If there is clinical concern for acute cholecystitis a hepatobiliary scan may be helpful to confirm cystic duct obstruction. 3. Minimal ascites. 4. Echogenic atrophic right kidney. 5. Mild nonspecific prominence of the main pancreatic duct. Enzo Price MD Head CT 05/29/16 0000 Signed Impressions: Service Date/Time: Sunday, May 29, 2016 03:03 - CONCLUSION: Age- appropriate atrophy, stable from prior in September 2015. No acute findings. Earnest Torre MD Lower Extremity Ultrasound 05/28/16 0000 Signed Impressions: Service Date/Time: Saturday, May 28, 2016 22:27 - CONCLUSION: Negative for deep venous thrombosis bilateral lower extremity. Earnest Torre MD Procedures Tracheostomy PEG . Assessment and Plan Disease Oriented Problem List: (1) Metabolic encephalopathy (2) ESRD on hemodialysis (3) Shortness of breath (4) Diabetes (5) CHF (congestive heart failure) (6) Elevated troponin level (7) Hepatitis C (8) Hyperkalemia, diminished renal excretion (9) Cardiac arrest (10) Hyperkalemia (11) Hypertension (12) NSTEMI (non-ST elevated myocardial infarction) (13) Elevated LFTs (14) Non-ischemic cardiomyopathy Symptom Scale: (1) Encephalopathy (2) Anxiety (3) Dyspnea Pertinent Non-Medical Issues Psychosocial:Per prior H&P by palliative 2014 (obtained from significant other Neema) patient born in [place] moves to [place] sometime in 2012 or . Parents are , patient has no siblings. He did serve in the though branch not known. He did have some connection with the [facility]. Disabled and not working for many years. Completed high school. 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 Has lived with significant other Neema Johnston for many years. Never reported to be . Has 1 son, 1 daughter who may live in the [place] area. Spiritual:Per prior admissions:He attends [employer]. 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 Legal:Patient currently unable to participate in decision-making due to clinical condition. Not clear if he will regain ability to participate, status post PEA arrest. Patient reported to have 2 adult children, never . Per [place] statutes these 2 adult children would be appropriate legal decision makers. He has a significant other of many years who has previously served as a proxy during hospital course as children were not able to be located during previous attempts. Would again attempt to locate any possible family members as the last attempt I'm aware of occurred in 2013, if unable to locate children then would proceed with significant other paris as healthcare proxy. [1..16-- requested case management assist with [employer] report to again attempt to locate possible children-- reported 1..16 no family located. ] Ethical issues impacting care: Important Contacts Neema Johnston significant other [phone]/ [phone] Prognosis This patient suffered PEA arrest during this admission likely secondary to hyperkalemia, end-stage renal disease on hemodialysis. He now remains on mechanical vent, encephalopathic. Condition is guarded. Possible he may wean and medically extubate however thus far not tolerating CPAP trials. May require tracheostomy and PEG for ongoing aggressive interventions. Appears likely he can survive current hospital course though he does remain at risk for complications/setbacks. Code Status: Full Code Plan * Legal decision maker: Patient currently unable to participate in decision- making due to clinical condition. Not clear if he will regain ability to participate, status post PEA arrest. significant other Wandy is healthcare proxy. * Goals: AGGRESSIVE. Met w sig other Neema and her brother 06/02/16-- Neema seems to have very limited understanding and limited insight to conditions. When I initially asked what the drs had told her about her sig other's condition she stated "that he was fine and all his tests were perfect, normal". Much review of conditions, diagnostics, clinical course thus far, underlying conditions. Goals thus far are aggressive. They feel they have seen pt respond purposefully to their visit. They have seen him recover from many acute issues before, including PEA arrest, and believe he could again recover. 06/24/16.--Met with significant other @ bedside. Goals remain aggressive. * CODE STATUS: Full code * SYMPTOMS: --Encephalopathy-status post PEA arrest with ROSC after approximately 8 minutes of CPR.+ encephalopathy per EEG. Neurology following, continue supportive care. Patient with prior PEA arrest episode and encephalopathy during prior admission 2013, eventually during hospital course had improvement in neurological status. Slowly improving patient not following some commands though still with episodes of agitation requiring Precedex. --Dyspnea-emergently intubated for airway protection during PEA arrest; has been tolerating CPAP and TPs trials. Status post tracheostomy, PEG tube.. Currently requiring precedex--reported to be very agitated when held -Agitation/anxiety: Hx drug use. , + encephalopathy 2/2 PEA arrest has been on and off Diprivan and Precedex drip, when sedation lightened has episodes of agitation, currently calm, on low-dose Precedex. * Palliative care will continue to follow during hospital course as condition evolves, to assist patient/decision-maker with understanding of medical conditions, weighing benefits/burdens of treatment options, for clarification of goals of treatment. Additionally will assist with any symptoms of palliative concern Time Spent Total Floor Time (mins): 15 Attestation To help prompt me to consider important information that might be impacting today's encounter and assessment, information from prior notes written by myself or my colleagues may have been "brought forward" into today's note. My signature on this note, however, is an attestation that I personally performed the exam, history, and/or decision-making noted today, and, unless otherwise indicated, the interactions with patient, family, and staff as well as the review of records all occurred today. I also attest that the listed assessment and stated plan reflect my best clinical judgment today based on the combination of historical information, prior notes, and today's exam/ interactions. When time spent is documented, it refers only to time spent today by the signer, or if indicated, combined time spent today by collaborating physician/nurse practitioner. Blank Coronel Jun 24, 2016 15:12
--- NOTE | 2016-06-24 17:07 | HHI.CCPN ---
Subjective Remarks/Hospital Course 05/28: 60 yo AAM with PMH of HTN, stroke without residual deficit, DM, nonischemic cardiomyopathy (EF 40% and stage I diastolic dysfunction) Cocaine abuse, Hepatitis C, ESRD on HD T/R/Sat who presents to [facility] ED for 2 day history of SOB. He reported symptoms started 1/ after he received hemodialysis. He reported a nonproductive cough without fevers, chills, or chest pain. His workup revealed a normal white count and CXR that demonstrated RLL consolidation. His potassium was 6.8. While preparations were being made to administer medications to address his hyperkalemia he developed bradycardia and PEA arrest. He underwent CPR and received epinephrine and 1 amp of bicarbonate. It was return of spontaneous circulation after 8 minutes. He was intubated by the emergency department physician Dr. Clancy. Dr. Francisco with nephrology was consulted and he made arrangements for urgent dialysis which is taking place currently. Target removal 3.8 L per HD RN. Postintubation CXR demonstrates R base infiltrate but also appears there is right pleural effusion. Influenza screen negative. Receive Zosyn and azithromycin in the emergency department. 05/29: Sedated, arousable, not following commands, orally intubated on mechanical ventilation. Gets agitated on lightening sedation and has a strong gag reflex. 05/30: Sedated, arousable, not following commands. Remains orally intubated on mechanical ventilation. Failed C Pap trial today. Dialyzed earlier. 05/31: Sedated/encephalopathic on lightening sedation, not following commands. Remains orally intubated on mechanical ventilation. Failed C Pap trials yesterday. 2-D echo just being completed today. 06/01 No events overnight. On Precedex drip unresponsive and doesn't follow commands. Afebrile. 06/02 Patient s/p HD yesterday with removal 1.5L , on Precedex infusion for sedation. 06/03 No events overnight. Sedated with fentanyl and intubated. s/p HD yesterday with removal 1.5L. 06/04 Patient remains sedated and intubated. Afebrile. Did not tolerate CPAP trials yesterday as he became tachypneic. 06/05 Patient s/p HD yesterday with removal 2L. Sedated with Fentanyl and intubated. Afebrile. Patient gets very agitated and restless when sedation is weaned off. 06/06 Patient is sedated with Fentanyl placed on Diprivan as well last night. Gets agitated and tachypneic on CPAP trials. s/p HD yesterday with removal 2L. 06/07: Remains sedated/encephalopathic, orally intubated on mechanical ventilation. Failed C Pap trials yesterday. 06/08: Remains sedated/encephalopathic, orally intubated on mechanical ventilation. Gets agitated on lightening sedation however not following commands. We'll attempt Precedex and titrate down on fentanyl/propofol 06/09: Remains sedated/encephalopathic, orally intubated on mechanical ventilation. On Precedex/propofol/fentanyl. Will attempt transitioning to Precedex alone to control agitation for C Pap trials. 06/10: Still requiring Precedex/propofol and fentanyl for CPAP trials. Patient continues to be extremely agitated and currently unable to extubate. Not following commands. Positive BM. Tolerating tube feeds. Afebrile. 06/11: On Precedex drip currently. -3 L of hemodialysis. Moving all 4 extremities but not following commands. 06/12: no changes. plan for PEG and Trach tomorrow. 06/13: plan for trach today. discussed with health care proxy and she still has concerns about possible trach. will touch base with palliative care. have talked with Dr. Lee from trauma, and plan for trach at some point depending on his schedule and per family discussions. 06/14: plan for trach today. significant bleeding from around PEG site. GI aware. 2 units prbc ordered. coags ordered. 0.3mcg/kg DDAVP ordered. 06/15: trach yesterday by Dr. Lee. trach site and PEG site with ongoing oozing despite FFP, platelets, DDAVP. I talked with Dr. Francisco and he is ok with iv contrast for imaging if needed, given that this is ESRD with no hope of renal recovery. 06/16: Continues to oozing from tracheostomy site. Packed with Surgicel but continues to ooze. No oozing from PEG tube site. Currently nothing by mouth. 2 bowel movements. Awake and does follow commands 06/17: Afebrile. No more bleeding from tracheostomy site. PEG site intact. Positive BM. Awake and following commands. 06/18: On CPAP, getting HD. Follows commands. Trial of TP today 06/19: No acute events overnight tolerating C Pap. Unable to place on T piece yesterday he developed tidal volumes and tachypnea. Continues to follow commands 06/20: Sitting up in stretcher chair on TP. Upper chest wheezing. CXR shows improving infiltrates 06/21: Patient failed to be stopped in 2-3 hours yesterday. Currently on CPAP. Chest x-ray shows diffuse bilateral infiltrates increased from previous. Somnolent 06/22. Sedated on propofol. had HD with fluid removal yesterday. CXR shows significant improvement in bilateral infiltrates. Not following commands on propofol 06/23: Patient tolerating T piece today. Got 1 units PRBC with hemodialysis for hemoglobin of 6.7. No obvious bleeding Subjective 06/24: Continues to tolerate TPs. Continues to be on Precedex drip at 0.3 mcg/kg/ h. Hemoglobin stable. Follows commands squeezing hands. Afebrile. Tolerating tube feeding.. Objective Vital Signs Date Time Temp Pulse Resp B/P Pulse Ox O2 Delivery O2 Flow Rate FiO2 06/24/16 16:00 98.4 85 18 129/65 100 06/24/16 09:18 T-piece 5.00 28 Intake and Output 06/23/16 06/23/16 06/23/16 07:59 15:59 23:59 Intake Total 332 ml 680 ml 703 ml Output Total 200 ml 150 ml 2400 ml Balance 132 ml 530 ml -1697 ml Result Diagram: 06/24/16 0349 06/24/16 0349 Imaging Last Impressions Chest X-Ray 06/23/16 0600 Signed Impressions: Service Date/Time: June 03:02 - CONCLUSION: No significant change. Minh Aponte MD Abdomen X-Ray 06/16/16 0000 Signed Impressions: Service Date/Time: May 09:12 - CONCLUSION: Apparent appropriate placement of gastric tube placement. Amaris Rosenberg MD Abdomen/Pelvis CT 06/15/16 0000 Signed Impressions: Service Date/Time: Wednesday, June 15, 2016 13:16 - CONCLUSION: Significant free intraperitoneal air. Consolidative changes in both bases with small bilateral pleural effusions. Mikhail Abrams MD FACR Brain MRI 06/10/16 0000 Signed Impressions: Service Date/Time: Friday, June 10, 2016 20:14 - CONCLUSION: 1. Mild chronic-appearing ischemic changes in the periventricular white matter slightly progressed from 2014. No recent infarct, mass effect or midline shift. No hydrocephalus. Lakhwinder Pringle MD Liver Ultrasound 06/01/16 0000 Signed Impressions: Service Date/Time: Wednesday, June 01, 2016 15:38 - CONCLUSION: 1. Bilateral pleural effusions. 2. Thick-walled gallbladder with minimal pericholecystic fluid. If there is clinical concern for acute cholecystitis a hepatobiliary scan may be helpful to confirm cystic duct obstruction. 3. Minimal ascites. 4. Echogenic atrophic right kidney. 5. Mild nonspecific prominence of the main pancreatic duct. Enzo Price MD Head CT 05/29/16 0000 Signed Impressions: Service Date/Time: Sunday, May 29, 2016 03:03 - CONCLUSION: Age- appropriate atrophy, stable from prior in September 2015. No acute findings. Earnest Torre MD Lower Extremity Ultrasound 05/28/16 0000 Signed Impressions: Service Date/Time: Saturday, May 28, 2016 22:27 - CONCLUSION: Negative for deep venous thrombosis bilateral lower extremity. Earnest Torre MD Objective Remarks GENERAL: 60 yo AA male, critically ill, s/p trach and PEG tube. No obvious bleeding SKIN: Warm and dry. No rash HEAD: Normocephalic. EYES: Pupils minimally reactive at 2 mm bilaterally. No scleral icterus. No injection or drainage. NECK: Supple, trachea midline. No JVD. trach in place CARDIOVASCULAR: Regular rate and rhythm with S1, S2. No S4. II/ systolic murmur at the apex RESPIRATORY: Breath sounds equal bilaterally. Bilateral crackles improved from yesterday GASTROINTESTINAL: Abdomen soft, non-tender, nondistended. Clean dry and intact PEG site. MUSCULOSKELETAL: No peripheral edema. Palpable thrill left AV fistula. Neuro: Arousable and following commands on Precedex. Moves all 4 extremities equally and spontaneous. A/P Assessment and Plan NEURO: Acute encephalopathy, post cardiac arrest. History of stroke without residual deficit (per friend's report) History of cocaine abuse Posttraumatic stress disorder As needed fentanyl for pain management. Neurologically improving Continue Precedex drip and weaned off. Started Seroquel 25 twice a day EEG 06/12 revealed mild sleep. No seizure activity noted. MRI brain revealed chronic vascular changes. No acute findings Neuro has followed-Dr. Wilks RESP: Acute respiratory failure Healthcare associated pneumonia Intubated in ED 05/28/16 following cardiac arrest Currently tolerating TP 12 hours from a.m. DuoNeb q6 hours. Albuterol q2 prn. Ventilator Bundle. s/p trach 06/[address] Bearden CV: Cardiac arrest, secondary to hyperkalemia Pulmonary edema Nonischemic cardiomyopathy secondary to HTN, cocaine abuse Hypertension Elevated Troponin: ? NSTEMI Monitor HR and BP keep MAP>65mmHg Continue home meds: Hydralazine 25 tid. Clonidine 0.1 tid., Lopressor 25mg Q6 ( 100 mg twice a day at home) ASA 81 mg daily will be continued. Echo 05/31: EF 25-30%, no RWMA. Mild MR/TR. MEGAN 36 mmHg cardiac cath 12/09/2012 - EF 40%, normal coronaries. Elevated troponin, cardiac arrest. Per cardiology-no intervention planned. Had hemodialysis today GI: Hepatitis C Elevated LFT Free air - likely secondary to EGD/tube feeding insufflation Daily TF-Nepro@50ml/hr. Monitor LFT's US liver: Bilateral pleural effusions. Thick-walled gallbladder with minimal pericholecystic fluid. Minimal ascites. Echogenic atrophic right kidney. Mild nonspecific prominence of the main pancreatic duct. status post suture by Dr. Zander Tabares. No bleeding actively from PEG site currently Prevacid for GI prophylaxis Colace for bowel regimen FEN/RENAL: ESRD Acute severe hyperkalemia - resolved Hyperphosphatemia Intermittent hemodialysis per nephrology (Dr. Francisco) Emergent HD 05/28 due to potassium of 6.8 with bradycardia and cardiac arrest. Monitor renal function, I/O's, avoid nephrotoxins. s/p HD today Continue PhosLo 667 mg 3 times a day. On 2000 3 times a day at home. ID: Acute healthcare associated pneumonia Received Zosyn and azithromycin in the emergency department 05/28. s/p Zosyn 2.25 g IV every 8 hours 05/29 - 06/12. Azithro x 10 days.05/28 nasal washing negative for Influenza. continue to monitor Pertinent cultures 1/7 - blood cultures 2 - 1 out of 2 corynebacterium not Jk 05/29 Sputum- beta strep not A HEME: Anemia requiring transfusion, previously from acute blood loss from PEG tube Thrombocytopenia 1 unit prbc, 1 FFP, 1 plt. DDAVP given 06/15 Given 1 unit PRBC 06/16, additional 1 unit PRBC given 06/23 Coags within normal limits Received 16 mg DDAVP and 5000 mg amicar Monitor CBC. Dr. Kevin/hematology followed. Von Willebrand antigen factor normal ENDO: Diabetes mellitus Medium dose Insulin sliding scale with bedside glucose every 6 hours PROPH: holding pharmacologic DVT prophylaxis in the setting of active bleeding resume in 24 hours if no bleeding, resume today. Prevacid 30 mg daily for stress ulcer prophylaxis. Doppler US LE negative for DVT ACCESS: Peripheral IV providing adequate access at this time. Left AV fistula accessed for hemodialysis Full code Palliative care is following to assist with deciding goals of therapy. Critical Care: The total critical care time was 30 minutes. Time to perform other separately billable procedures was not included in the critical care time. Chevy Gonzales MD Jun 24, 2016 17:07
[2016-06-24] MEDS: QUEtiapine FUMARATE 25 MG TAB PO SCH (20:23)
[2016-06-24] MEDS: RESP: ALBUTEROL 2.5 MG/IPRATROPIUM 0.5 MG NEB (SCH) NEB (22:02)
[2016-06-25] VITALS (14 sets, daily range): BP systolic 137–159; BP diastolic 60–79; PULSE 93–110; RESP 21–22; TEMP 98.3–99.5; O2SAT 97–100
[2016-06-25] MEDS: METOPROLOL TARTRATE 25 MG TAB PO/NG SCH ×5 (00:57→23:09)
[2016-06-25] MEDS: HEPARIN SODIUM - SQ 10,000 UNITS/ML VIAL SQ SCH ×2 (02:53→14:00)
[2016-06-25] MEDS: INSULIN NovoLIN REGULAR SUPPLEMENTAL SCALE SQ SCH ×4 (02:53→20:12)
[2016-06-25] MEDS: RESP: ALBUTEROL 2.5 MG/IPRATROPIUM 0.5 MG NEB (SCH) NEB ×4 (03:38→21:23)
[2016-06-25] MEDS: CHLORHEXIDINE GLUCONATE 2 % 1 PACK (2 CLOTHS) TOP SCH ×2 (04:00→20:12)
[2016-06-25] MEDS: CHLORHEXIDINE 0.12% (ORAL KIT) 15 ML CUP MT SCH ×2 (08:00→20:00)
[2016-06-25] MEDS: SODIUM CHLORIDE 0.9% FLUSH 5 ML FLUSH IV FLUSH SCH ×2 (09:00→20:39)
[2016-06-25] MEDS: LANSOPRAZOLE SOLUTAB 30 MG TAB NG SCH (09:00)
[2016-06-25] MEDS: NEOMYCIN/POLYMYXIN/BACITRACIN OINT 15 GM TUBE TOPICAL SCH ×2 (09:00→20:39)
--- NOTE | 2016-06-25 11:20 | HHI.NPPN ---
Subjective General Problems: Anemia Renal Failure: Chronic, End Stage Renal Disease Additional Remarks Seen on dialysis, tolerating HD well. Intubated with trach Review of Systems General General Remarks unable to evaluate due to mental status Objective Data Data 06/24/16 06/25/16 19:00 07:00 Intake Total 620 ml 927 ml Output Total 0 ml 200 ml Balance 620 ml 727 ml IV Total 120 ml 204 ml Tube Feeding 420 ml 723 ml Other 80 ml Output Urine Total 0 ml 200 ml Vital Signs Date Time Temp Pulse Resp B/P Pulse Ox O2 Delivery O2 Flow Rate FiO2 06/25/16 10:50 99 T-piece 28 06/25/16 10:00 102 06/25/16 08:00 102 06/25/16 08:00 40 06/25/16 08:00 98.9 103 22 159/79 97 06/25/16 08:00 100 T-Piece 28 06/25/16 06:00 102 06/25/16 04:00 99.5 103 21 137/69 100 06/25/16 04:00 103 06/25/16 02:00 110 06/25/16 00:00 99.1 107 22 147/67 97 06/25/16 00:00 107 06/24/16 22:02 99 T-piece 5.00 28 06/24/16 22:00 109 06/24/16 20:00 98.6 101 18 149/65 100 06/24/16 20:00 101 06/24/16 19:00 100 T-Piece 28 06/24/16 18:00 112 06/24/16 16:00 98.4 85 18 129/65 100 06/24/16 16:00 85 06/24/16 14:00 80 06/24/16 12:00 85 06/24/16 12:00 98.2 85 17 120/54 100 -: 06/24/16 0349 06/24/16 0349 Tubes & Lines Comment trach, PEG Drip Comment Precedex Physical Exam General Appearance: Well Developed, Well Nourished, Comfortable Eyes Eye Exam: Pupils Equal, Pupils Reactive Neck Neck Exam: Neck Supple Pulmonary Resp Exam: Breath Sounds Equal, Crackles, Decreased Bases, Diminished Breath Sounds Cardiology CV Exam: Regular, Normal Sinus Rhythm, Good Perfusion Gastrointestinal/Abdomen GI Exam: Soft, Non-Tender, Bowel Sounds Present, Non-Distended Musculoskeletal MS Exam: Joints Intact, Normal Tone Integumentary Skin Exam: Clear, Warm, Dry, Intact Extremeties Extremities Exam: Pedal Pulses Palpable, Trace Edema Neurologic Neuro Exam: Unresponsive, Sedated Assessment/Plan Discussed Condition With: Patient Assessment Summary: Anemia of CKD, Hypertension, End Stage Renal Disease Electrolyte Assessment: Hypocalcemia Problem List: (1) ESRD on dialysis Plan: Continue dialysis T-Th-Sat, Seen on HD today, tolerating HD well. Plan next HD Monday. on Epogen (2) Anemia Plan: Last hemoglobin stable (3) Hypertension Plan: BP lower may adjust He is on metoprolol, hydralazine, clonidine with hold parameters (4) DM (diabetes mellitus) Plan: continue insulin coverage goal to maintain blood glucose between 140 and 180 off D10 , tube feeding was resumed (5) NSTEMI (non-ST elevated myocardial infarction) Plan: Troponin I elevated post cardiac arrest, chest compressions. he had catheterization in January 2016, normal coronary arteries (6) Elevated LFTs Plan: improved. (7) Cocaine abuse Plan: Cessation has been recommended. (8) Encephalopathy Plan: vent management, s/p trach placement Problem Qualifiers (1) Anemia: Qualified Code: D64.9 - Anemia, unspecified type (2) Hypertension: Qualified Code: I10 - Essential hypertension (3) DM (diabetes mellitus): Qualified Code: E11.22 - Type 2 diabetes mellitus with diabetic chronic kidney disease, unspecified CKD stage, unspecified intermission coordinator insulin use status Onel Casillas MD Jun 25, 2016 11:20
[2016-06-25] MEDS: EPOETIN ALFA 10,000 UNITS/ML VIAL IV PRN (11:42)
[2016-06-25] MEDS: CALCIUM ACETATE 667 MG CAP NG SCH ×2 (12:41→13:00)
[2016-06-25] MEDS: DOCUSATE SODIUM 100 MG/10 ML UDC PO SCH ×2 (12:41→20:39)
[2016-06-25] MEDS: hydrALAZINE HCL 50 MG TAB PO SCH ×3 (12:42→18:00)
[2016-06-25] MEDS: cloNIDine HCL 0.1 MG TAB PO SCH ×3 (12:42→18:00)
[2016-06-25] MEDS: QUEtiapine FUMARATE 25 MG TAB PO SCH ×2 (12:42→20:39)
[2016-06-25 14:18] LABS: AUTOMATED NEUTROPHIL # 8.5 TH/MM3 (1.8-7.7); BASOPHIL # 0.1 TH/MM3 (0-0.2); BASOPHIL % 0.8 % (0.0-2.0); EOSINOPHIL % 0.3 % (0.0-4.0); HEMATOCRIT 26.8 % (39.0-51.0); HEMO FLAGS DIFF FINAL; LYMPHOCYTE # 0.6 TH/MM3 (1.0-4.8); MEAN CELL VOLUME 88.2 FL (80.0-100.0); MEAN CORPUSCULAR HEMOGLOBIN 30.9 PG (27.0-34.0); MONO % 8.1 % (0.0-8.0); NEUT % 84.8 % (16.0-70.0); PLATELET COUNT 234 TH/MM3 (150-450); RED BLOOD COUNT 3.04 MIL/MM3 (4.50-5.90)
[2016-06-25 14:33] LABS: ALT (GPT) 20 U/L (12-78); ANION GAP 9 MEQ/L (5-15); AST (GOT) 47 U/L (15-37); BICARBONATE 30.8 MEQ/L (21.0-32.0); BLOOD UREA NITROGEN 37 MG/DL (7-18); CHLORIDE 97 MEQ/L (98-107); GLOMERULAR FILTRATION RATE 19 ML/MIN (>89); POTASSIUM 3.9 MEQ/L (3.5-5.1); SODIUM (NA) 137 MEQ/L (136-145)
[2016-06-25 14:35] LABS: ALKALINE PHOSPHATASE 127 U/L (45-117); TOTAL BILIRUBIN ADULT 0.5 MG/DL (0.2-1.0)
--- NOTE | 2016-06-25 15:23 | HHI.CCPN ---
Subjective Remarks/Hospital Course 05/28: 60 yo AAM with PMH of HTN, stroke without residual deficit, DM, nonischemic cardiomyopathy (EF 40% and stage I diastolic dysfunction) Cocaine abuse, Hepatitis C, ESRD on HD T/R/Sat who presents to [facility] ED for 2 day history of SOB. He reported symptoms started 1/ after he received hemodialysis. He reported a nonproductive cough without fevers, chills, or chest pain. His workup revealed a normal white count and CXR that demonstrated RLL consolidation. His potassium was 6.8. While preparations were being made to administer medications to address his hyperkalemia he developed bradycardia and PEA arrest. He underwent CPR and received epinephrine and 1 amp of bicarbonate. It was return of spontaneous circulation after 8 minutes. He was intubated by the emergency department physician Dr. Clancy. Dr. Francisco with nephrology was consulted and he made arrangements for urgent dialysis which is taking place currently. Target removal 3.8 L per HD RN. Postintubation CXR demonstrates R base infiltrate but also appears there is right pleural effusion. Influenza screen negative. Receive Zosyn and azithromycin in the emergency department. 05/29: Sedated, arousable, not following commands, orally intubated on mechanical ventilation. Gets agitated on lightening sedation and has a strong gag reflex. 05/30: Sedated, arousable, not following commands. Remains orally intubated on mechanical ventilation. Failed C Pap trial today. Dialyzed earlier. 05/31: Sedated/encephalopathic on lightening sedation, not following commands. Remains orally intubated on mechanical ventilation. Failed C Pap trials yesterday. 2-D echo just being completed today. 06/01 No events overnight. On Precedex drip unresponsive and doesn't follow commands. Afebrile. 06/02 Patient s/p HD yesterday with removal 1.5L , on Precedex infusion for sedation. 06/03 No events overnight. Sedated with fentanyl and intubated. s/p HD yesterday with removal 1.5L. 06/04 Patient remains sedated and intubated. Afebrile. Did not tolerate CPAP trials yesterday as he became tachypneic. 06/05 Patient s/p HD yesterday with removal 2L. Sedated with Fentanyl and intubated. Afebrile. Patient gets very agitated and restless when sedation is weaned off. 06/06 Patient is sedated with Fentanyl placed on Diprivan as well last night. Gets agitated and tachypneic on CPAP trials. s/p HD yesterday with removal 2L. 06/07: Remains sedated/encephalopathic, orally intubated on mechanical ventilation. Failed C Pap trials yesterday. 06/08: Remains sedated/encephalopathic, orally intubated on mechanical ventilation. Gets agitated on lightening sedation however not following commands. We'll attempt Precedex and titrate down on fentanyl/propofol 06/09: Remains sedated/encephalopathic, orally intubated on mechanical ventilation. On Precedex/propofol/fentanyl. Will attempt transitioning to Precedex alone to control agitation for C Pap trials. 06/10: Still requiring Precedex/propofol and fentanyl for CPAP trials. Patient continues to be extremely agitated and currently unable to extubate. Not following commands. Positive BM. Tolerating tube feeds. Afebrile. 06/11: On Precedex drip currently. -3 L of hemodialysis. Moving all 4 extremities but not following commands. 06/12: no changes. plan for PEG and Trach tomorrow. 06/13: plan for trach today. discussed with health care proxy and she still has concerns about possible trach. will touch base with palliative care. have talked with Dr. Lee from trauma, and plan for trach at some point depending on his schedule and per family discussions. 06/14: plan for trach today. significant bleeding from around PEG site. GI aware. 2 units prbc ordered. coags ordered. 0.3mcg/kg DDAVP ordered. 06/15: trach yesterday by Dr. Lee. trach site and PEG site with ongoing oozing despite FFP, platelets, DDAVP. I talked with Dr. Francisco and he is ok with iv contrast for imaging if needed, given that this is ESRD with no hope of renal recovery. 06/16: Continues to oozing from tracheostomy site. Packed with Surgicel but continues to ooze. No oozing from PEG tube site. Currently nothing by mouth. 2 bowel movements. Awake and does follow commands 06/17: Afebrile. No more bleeding from tracheostomy site. PEG site intact. Positive BM. Awake and following commands. 06/18: On CPAP, getting HD. Follows commands. Trial of TP today 06/19: No acute events overnight tolerating C Pap. Unable to place on T piece yesterday he developed tidal volumes and tachypnea. Continues to follow commands 06/20: Sitting up in stretcher chair on TP. Upper chest wheezing. CXR shows improving infiltrates 06/21: Patient failed to be stopped in 2-3 hours yesterday. Currently on CPAP. Chest x-ray shows diffuse bilateral infiltrates increased from previous. Somnolent 06/22. Sedated on propofol. had HD with fluid removal yesterday. CXR shows significant improvement in bilateral infiltrates. Not following commands on propofol 06/23: Patient tolerating T piece today. Got 1 units PRBC with hemodialysis for hemoglobin of 6.7. No obvious bleeding 06/24: Continues to tolerate TPs. Continues to be on Precedex drip at 0.3 mcg/kg/ h. Hemoglobin stable. Follows commands squeezing hands. Afebrile. Tolerating tube feeding. Subjective 06/25: Awake and alert. Continues to be on TPs. Afebrile. Tolerating tube feeds. One bowel movement. Last hemodialysis today. -3 L Objective Vital Signs Date Time Temp Pulse Resp B/P Pulse Ox O2 Delivery O2 Flow Rate FiO2 06/25/16 14:00 102 06/25/16 12:00 40 06/25/16 12:00 98.9 22 138/60 97 06/25/16 10:50 T-piece 06/24/16 22:02 5.00 Intake and Output 06/24/16 06/24/16 06/25/16 08:00 16:00 00:00 Intake Total 435 ml 620 ml 584 ml Output Total 75 ml 0 ml 125 ml Balance 360 ml 620 ml 459 ml Result Diagram: 06/25/16 1347 06/25/16 1347 Imaging Last Impressions Chest X-Ray 06/23/16 0600 Signed Impressions: Service Date/Time: June 03:02 - CONCLUSION: No significant change. Minh Aponte MD Abdomen X-Ray 06/16/16 0000 Signed Impressions: Service Date/Time: May 09:12 - CONCLUSION: Apparent appropriate placement of gastric tube placement. Amaris Rosenberg MD Abdomen/Pelvis CT 06/15/16 0000 Signed Impressions: Service Date/Time: Wednesday, June 15, 2016 13:16 - CONCLUSION: Significant free intraperitoneal air. Consolidative changes in both bases with small bilateral pleural effusions. Mikhail Abrams MD FACR Brain MRI 06/10/16 0000 Signed Impressions: Service Date/Time: Friday, June 10, 2016 20:14 - CONCLUSION: 1. Mild chronic-appearing ischemic changes in the periventricular white matter slightly progressed from 2014. No recent infarct, mass effect or midline shift. No hydrocephalus. Lakhwinder Pringle MD Liver Ultrasound 06/01/16 0000 Signed Impressions: Service Date/Time: Wednesday, June 01, 2016 15:38 - CONCLUSION: 1. Bilateral pleural effusions. 2. Thick-walled gallbladder with minimal pericholecystic fluid. If there is clinical concern for acute cholecystitis a hepatobiliary scan may be helpful to confirm cystic duct obstruction. 3. Minimal ascites. 4. Echogenic atrophic right kidney. 5. Mild nonspecific prominence of the main pancreatic duct. Enzo Price MD Head CT 05/29/16 0000 Signed Impressions: Service Date/Time: Sunday, May 29, 2016 03:03 - CONCLUSION: Age- appropriate atrophy, stable from prior in September 2015. No acute findings. Earnest Torre MD Lower Extremity Ultrasound 05/28/16 0000 Signed Impressions: Service Date/Time: Saturday, May 28, 2016 22:27 - CONCLUSION: Negative for deep venous thrombosis bilateral lower extremity. Earnest Torre MD Objective Remarks GENERAL: 60 yo AA male, critically ill, s/p trach and PEG tube. No obvious bleeding SKIN: Warm and dry. No rash HEAD: Normocephalic. EYES: Pupils minimally reactive at 2 mm bilaterally. No scleral icterus. No injection or drainage. NECK: Supple, trachea midline. No JVD. trach in place CARDIOVASCULAR: Regular rate and rhythm with S1, S2. No S4. II/ systolic murmur at the apex RESPIRATORY: Breath sounds equal bilaterally. Bilateral crackles improved from yesterday GASTROINTESTINAL: Abdomen soft, non-tender, nondistended. Clean dry and intact PEG site. MUSCULOSKELETAL: No peripheral edema. Palpable thrill left AV fistula. Neuro: Arousable and following commands on Precedex. Moves all 4 extremities equally and spontaneous. A/P Assessment and Plan NEURO: Acute encephalopathy, post cardiac arrest. History of stroke without residual deficit (per friend's report) History of cocaine abuse Posttraumatic stress disorder As needed fentanyl for pain management. Neurologically improving Continue Precedex drip and weaned off. Continue Seroquel 25 twice a day EEG 06/12 revealed mild sleep. No seizure activity noted. MRI brain revealed chronic vascular changes. No acute findings Neuro has followed-Dr. Wilks RESP: Acute respiratory failure Healthcare associated pneumonia Intubated in ED 05/28/16 following cardiac arrest Currently tolerating TP 12 hours from a.m. DuoNeb q6 hours. Albuterol q2 prn. Ventilator Bundle. s/p trach 06/[address] Bearden CV: Cardiac arrest, secondary to hyperkalemia Pulmonary edema Nonischemic cardiomyopathy secondary to HTN, cocaine abuse Hypertension Elevated Troponin: ? NSTEMI Monitor HR and BP keep MAP>65mmHg Continue home meds: Hydralazine 25 tid. Clonidine 0.1 tid., Lopressor 25mg Q6 ( 100 mg twice a day at home) ASA 81 mg daily will be continued. Echo 05/31: EF 25-30%, no RWMA. Mild MR/TR. MEGAN 36 mmHg cardiac cath 12/09/2012 - EF 40%, normal coronaries. Elevated troponin, cardiac arrest. Per cardiology-no intervention planned. Had hemodialysis today -3 L GI: Hepatitis C Elevated LFT resolving Free air - likely secondary to EGD/tube feeding insufflation Daily TF-Nepro@50ml/hr. Monitor LFT's US liver: Bilateral pleural effusions. Thick-walled gallbladder with minimal pericholecystic fluid. Minimal ascites. Echogenic atrophic right kidney. Mild nonspecific prominence of the main pancreatic duct. status post suture by Dr. Zander Tabares. No bleeding actively from PEG site currently Prevacid for GI prophylaxis Colace for bowel regimen FEN/RENAL: ESRD Acute severe hyperkalemia - resolved Hypophosphatemia Intermittent hemodialysis per nephrology (Dr. Francisco) Emergent HD 05/28 due to potassium of 6.8 with bradycardia and cardiac arrest. Monitor renal function, I/O's, avoid nephrotoxins. s/p HD today Continue PhosLo 667 mg 3 times a day to be held today. Recheck in a.m. on 2000 3 times a day at home. ID: Acute healthcare associated pneumonia Received Zosyn and azithromycin in the emergency department 05/28. s/p Zosyn 2.25 g IV every 8 hours 05/29 - 06/12. Azithro x 10 days.05/28 nasal washing negative for Influenza. continue to monitor Pertinent cultures 05/28 - blood cultures 2 - 1 out of 2 corynebacterium not Jk 05/29 Sputum- beta strep not A HEME: Normocytic Anemia requiring transfusion, previously from acute blood loss from PEG tube 1 unit prbc, 1 FFP, 1 plt. DDAVP given 06/15 Given 1 unit PRBC 06/16, additional 1 unit PRBC given 06/23 Coags within normal limits Received 16 mg DDAVP and 5000 mg amicar Monitor CBC. Dr. Kevin/hematology followed. Von Willebrand antigen factor normal ENDO: Diabetes mellitus Medium dose Insulin sliding scale with bedside glucose every 6 hours PROPH: holding pharmacologic DVT prophylaxis in the setting of active bleeding resume in 24 hours if no bleeding, resume today. Prevacid 30 mg daily for stress ulcer prophylaxis. Doppler US LE negative for DVT ACCESS: Peripheral IV providing adequate access at this time. Left AV fistula accessed for hemodialysis Full code Palliative care is following to assist with deciding goals of therapy. Critical Care: The total care time was 35 minutes. Time to perform other separately billable procedures was not included in the critical care time. Chevy Gonzales MD Jun 25, 2016 15:23
[2016-06-26] VITALS (14 sets, daily range): BP systolic 98–152; BP diastolic 62–87; PULSE 90–110; RESP 18–20; TEMP 98–98.7; O2SAT 97–99
[2016-06-26] MEDS: HEPARIN SODIUM - SQ 10,000 UNITS/ML VIAL SQ SCH ×2 (00:34→14:00)
[2016-06-26] MEDS: DEXMEDETOMIDINE INJ 1,000 MCG in SODIUM CHLOR 0.9% 250 ML INJ 240 ML IV SCH ×2 (01:26→23:01)
[2016-06-26] MEDS: INSULIN NovoLIN REGULAR SUPPLEMENTAL SCALE SQ SCH ×4 (02:02→20:18)
[2016-06-26] MEDS: RESP: ALBUTEROL 2.5 MG/IPRATROPIUM 0.5 MG NEB (SCH) NEB ×4 (03:22→20:35)
[2016-06-26] MEDS: METOPROLOL TARTRATE 25 MG TAB PO/NG SCH ×4 (05:15→23:02)
[2016-06-26 07:00] LABS: HEMATOCRIT 27.7 % (39.0-51.0); MEAN CELL VOLUME 89.8 FL (80.0-100.0); MEAN CORPUSCULAR HEMOGLOBIN 30.7 PG (27.0-34.0); MEAN CORPUSCULAR HGB CONC 34.2 % (32.0-36.0); PLATELET COUNT 209 TH/MM3 (150-450); RED BLOOD COUNT 3.08 MIL/MM3 (4.50-5.90); RED CELL DISTRIBUTION WIDTH 15.2 % (11.6-17.2); REVIEW FLAG FINAL; WHITE BLOOD COUNT 9.2 TH/MM3 (4.0-11.0)
[2016-06-26 07:21] LABS: BICARBONATE 32.1 MEQ/L (21.0-32.0); MAGNESIUM 2.2 MG/DL (1.5-2.5)
[2016-06-26] MEDS: CHLORHEXIDINE 0.12% (ORAL KIT) 15 ML CUP MT SCH ×2 (08:00→20:00)
[2016-06-26] MEDS: QUEtiapine FUMARATE 25 MG TAB PO SCH ×2 (08:49→20:18)
[2016-06-26] MEDS: NEOMYCIN/POLYMYXIN/BACITRACIN OINT 15 GM TUBE TOPICAL SCH ×2 (08:49→20:19)
[2016-06-26] MEDS: LANSOPRAZOLE SOLUTAB 30 MG TAB NG SCH (08:49)
[2016-06-26] MEDS: hydrALAZINE HCL 50 MG TAB PO SCH ×3 (08:49→18:00)
[2016-06-26] MEDS: SODIUM CHLORIDE 0.9% FLUSH 5 ML FLUSH IV FLUSH SCH ×2 (08:49→20:18)
[2016-06-26] MEDS: cloNIDine HCL 0.1 MG TAB PO SCH ×3 (08:49→18:00)
[2016-06-26] MEDS: DOCUSATE SODIUM 100 MG/10 ML UDC PO SCH ×2 (08:49→20:18)
--- NOTE | 2016-06-26 11:29 | HHI.NPPN ---
Subjective General Problems: Anemia Renal Failure: Chronic, End Stage Renal Disease Additional Remarks Tolerated HD yesterday. Intubated with trach Review of Systems General General Remarks unable to evaluate due to mental status Objective Data Data 06/25/16 06/26/16 19:00 07:00 Intake Total 632 ml 1010 ml Output Total 3050 ml 150 ml Balance -2418 ml 860 ml IV Total 62 ml 236 ml Tube Feeding 450 ml 774 ml Other 120 ml Output Urine Total 50 ml 150 ml Hemodialysis 3000 ml # Bowel Movements 1 1 Vital Signs Date Time Temp Pulse Resp B/P Pulse Ox O2 Delivery O2 Flow Rate FiO2 06/26/16 10:00 108 06/26/16 08:09 99 T-piece 06/26/16 08:00 108 06/26/16 08:00 98.3 110 18 149/87 98 06/26/16 07:00 97 T-Piece 06/26/16 06:00 108 06/26/16 04:00 109 06/26/16 04:00 98.0 108 20 120/69 98 06/26/16 02:00 107 06/26/16 00:00 109 06/26/16 00:00 98.7 109 20 128/68 97 06/25/16 22:00 109 06/25/16 21:24 100 T-piece 06/25/16 20:00 98.9 104 22 138/60 97 06/25/16 20:00 104 06/25/16 19:00 100 T-Piece 06/25/16 18:00 102 06/25/16 16:00 98.3 93 22 139/73 97 06/25/16 16:00 102 06/25/16 16:00 40 06/25/16 14:00 102 06/25/16 12:00 40 06/25/16 12:00 102 06/25/16 12:00 98.9 95 22 138/60 97 -: 06/26/16 0530 06/26/16 0530 Tubes & Lines Comment trach, PEG Drip Comment Precedex Physical Exam General Appearance: Well Developed, Well Nourished Eyes Eye Exam: Pupils Equal, Pupils Reactive Neck Neck Exam: Neck Supple Pulmonary Resp Exam: Breath Sounds Equal, Crackles, Decreased Bases, Diminished Breath Sounds Cardiology CV Exam: Regular, Normal Sinus Rhythm, Good Perfusion Gastrointestinal/Abdomen GI Exam: Soft, Non-Tender, Bowel Sounds Present, Non-Distended Musculoskeletal MS Exam: Joints Intact, Normal Tone Integumentary Skin Exam: Clear, Warm, Dry, Intact Extremeties Extremities Exam: Pedal Pulses Palpable, Trace Edema Neurologic Neuro Exam: Unresponsive, Sedated Assessment/Plan Discussed Condition With: Patient Assessment Summary: Anemia of CKD, Hypertension, End Stage Renal Disease Electrolyte Assessment: Hypocalcemia Problem List: (1) ESRD on dialysis Plan: Continue dialysis T-Th-Sat, Tolerated HD yesterday - 3L UF. Plan next HD Monday. on Epogen (2) Anemia Plan: Last hemoglobin stable (3) Hypertension Plan: BP stable. He is on metoprolol, hydralazine, clonidine with hold parameters (4) DM (diabetes mellitus) Plan: continue insulin coverage goal to maintain blood glucose between 140 and 180 off D10 , tube feeding was resumed (5) NSTEMI (non-ST elevated myocardial infarction) Plan: Troponin I elevated post cardiac arrest, chest compressions. he had catheterization in January 2016, normal coronary arteries (6) Elevated LFTs Plan: improved. (7) Cocaine abuse Plan: Cessation has been recommended. (8) Encephalopathy Plan: vent management, s/p trach placement Problem Qualifiers (1) Anemia: Qualified Code: D64.9 - Anemia, unspecified type (2) Hypertension: Qualified Code: I10 - Essential hypertension (3) DM (diabetes mellitus): Qualified Code: E11.22 - Type 2 diabetes mellitus with diabetic chronic kidney disease, unspecified CKD stage, unspecified buttermaker insulin use status Onel Casillas MD Jun 26, 2016 11:29
--- NOTE | 2016-06-26 14:58 | HHI.CCPN ---
Subjective Remarks/Hospital Course 05/28: 60 yo AAM with PMH of HTN, stroke without residual deficit, DM, nonischemic cardiomyopathy (EF 40% and stage I diastolic dysfunction) Cocaine abuse, Hepatitis C, ESRD on HD T/R/Sat who presents to [facility] for 2 day history of SOB. He reported symptoms started 1/ after he received hemodialysis. He reported a nonproductive cough without fevers, chills, or chest pain. His workup revealed a normal white count and CXR that demonstrated RLL consolidation. His potassium was 6.8. While preparations were being made to administer medications to address his hyperkalemia he developed bradycardia and PEA arrest. He underwent CPR and received epinephrine and 1 amp of bicarbonate. It was return of spontaneous circulation after 8 minutes. He was intubated by the emergency department physician Dr. Clancy. Dr. Francisco with nephrology was consulted and he made arrangements for urgent dialysis which is taking place currently. Target removal 3.8 L per HD RN. Postintubation CXR demonstrates R base infiltrate but also appears there is right pleural effusion. Influenza screen negative. Receive Zosyn and azithromycin in the emergency department. 05/29: Sedated, arousable, not following commands, orally intubated on mechanical ventilation. Gets agitated on lightening sedation and has a strong gag reflex. 05/30: Sedated, arousable, not following commands. Remains orally intubated on mechanical ventilation. Failed C Pap trial today. Dialyzed earlier. 05/31: Sedated/encephalopathic on lightening sedation, not following commands. Remains orally intubated on mechanical ventilation. Failed C Pap trials yesterday. 2-D echo just being completed today. 06/01 No events overnight. On Precedex drip unresponsive and doesn't follow commands. Afebrile. 06/02 Patient s/p HD yesterday with removal 1.5L , on Precedex infusion for sedation. 06/03 No events overnight. Sedated with fentanyl and intubated. s/p HD yesterday with removal 1.5L. 06/04 Patient remains sedated and intubated. Afebrile. Did not tolerate CPAP trials yesterday as he became tachypneic. 06/05 Patient s/p HD yesterday with removal 2L. Sedated with Fentanyl and intubated. Afebrile. Patient gets very agitated and restless when sedation is weaned off. 06/06 Patient is sedated with Fentanyl placed on Diprivan as well last night. Gets agitated and tachypneic on CPAP trials. s/p HD yesterday with removal 2L. 06/07: Remains sedated/encephalopathic, orally intubated on mechanical ventilation. Failed C Pap trials yesterday. 06/08: Remains sedated/encephalopathic, orally intubated on mechanical ventilation. Gets agitated on lightening sedation however not following commands. We'll attempt Precedex and titrate down on fentanyl/propofol 06/09: Remains sedated/encephalopathic, orally intubated on mechanical ventilation. On Precedex/propofol/fentanyl. Will attempt transitioning to Precedex alone to control agitation for C Pap trials. 06/10: Still requiring Precedex/propofol and fentanyl for CPAP trials. Patient continues to be extremely agitated and currently unable to extubate. Not following commands. Positive BM. Tolerating tube feeds. Afebrile. 06/11: On Precedex drip currently. -3 L of hemodialysis. Moving all 4 extremities but not following commands. 06/12: no changes. plan for PEG and Trach tomorrow. 06/13: plan for trach today. discussed with health care proxy and she still has concerns about possible trach. will touch base with palliative care. have talked with Dr. Lee from trauma, and plan for trach at some point depending on his schedule and per family discussions. 06/14: plan for trach today. significant bleeding from around PEG site. GI aware. 2 units prbc ordered. coags ordered. 0.3mcg/kg DDAVP ordered. 06/15: trach yesterday by Dr. Lee. trach site and PEG site with ongoing oozing despite FFP, platelets, DDAVP. I talked with Dr. Francisco and he is ok with iv contrast for imaging if needed, given that this is ESRD with no hope of renal recovery. 06/16: Continues to oozing from tracheostomy site. Packed with Surgicel but continues to ooze. No oozing from PEG tube site. Currently nothing by mouth. 2 bowel movements. Awake and does follow commands 06/17: Afebrile. No more bleeding from tracheostomy site. PEG site intact. Positive BM. Awake and following commands. 06/18: On CPAP, getting HD. Follows commands. Trial of TP today 06/19: No acute events overnight tolerating C Pap. Unable to place on T piece yesterday he developed tidal volumes and tachypnea. Continues to follow commands 06/20: Sitting up in stretcher chair on TP. Upper chest wheezing. CXR shows improving infiltrates 06/21: Patient failed to be stopped in 2-3 hours yesterday. Currently on CPAP. Chest x-ray shows diffuse bilateral infiltrates increased from previous. Somnolent 06/22. Sedated on propofol. had HD with fluid removal yesterday. CXR shows significant improvement in bilateral infiltrates. Not following commands on propofol 06/23: Patient tolerating T piece today. Got 1 units PRBC with hemodialysis for hemoglobin of 6.7. No obvious bleeding 06/24: Continues to tolerate TPs. Continues to be on Precedex drip at 0.3 mcg/kg/ h. Hemoglobin stable. Follows commands squeezing hands. Afebrile. Tolerating tube feeding. 06/25: Awake and alert. Continues to be on TPs. Afebrile. Tolerating tube feeds. One bowel movement. Last hemodialysis today. -3 L Subjective 06/26: Currently resting in bed in no acute distress. Afebrile. 2 bowel movements overnight. Tolerating tube feeding. No acute events past 24 hours. Objective Vital Signs Date Time Temp Pulse Resp B/P Pulse Ox O2 Delivery O2 Flow Rate FiO2 06/26/16 12:00 98.0 100 18 98/64 98 06/26/16 12:00 40 06/26/16 08:09 T-piece 06/24/16 22:02 5.00 Intake and Output 06/25/16 06/25/16 06/26/16 08:00 16:00 00:00 Intake Total 343 ml 632 ml 570 ml Output Total 75 ml 3050 ml 100 ml Balance 268 ml -2418 ml 470 ml Result Diagram: 06/26/16 0530 06/26/16 0530 Imaging Last Impressions Chest X-Ray 06/23/16 0600 Signed Impressions: Service Date/Time: June 03:02 - CONCLUSION: No significant change. Minh Aponte MD Abdomen X-Ray 06/16/16 0000 Signed Impressions: Service Date/Time: May 09:12 - CONCLUSION: Apparent appropriate placement of gastric tube placement. Amaris Rosenberg MD Abdomen/Pelvis CT 06/15/16 0000 Signed Impressions: Service Date/Time: Wednesday, June 15, 2016 13:16 - CONCLUSION: Significant free intraperitoneal air. Consolidative changes in both bases with small bilateral pleural effusions. Mikhail Abrams MD FACR Brain MRI 06/10/16 0000 Signed Impressions: Service Date/Time: Friday, June 10, 2016 20:14 - CONCLUSION: 1. Mild chronic-appearing ischemic changes in the periventricular white matter slightly progressed from 2014. No recent infarct, mass effect or midline shift. No hydrocephalus. Lakhwinder Pringle MD Liver Ultrasound 06/01/16 0000 Signed Impressions: Service Date/Time: Wednesday, June 01, 2016 15:38 - CONCLUSION: 1. Bilateral pleural effusions. 2. Thick-walled gallbladder with minimal pericholecystic fluid. If there is clinical concern for acute cholecystitis a hepatobiliary scan may be helpful to confirm cystic duct obstruction. 3. Minimal ascites. 4. Echogenic atrophic right kidney. 5. Mild nonspecific prominence of the main pancreatic duct. Enzo Price MD Head CT 05/29/16 0000 Signed Impressions: Service Date/Time: Sunday, May 29, 2016 03:03 - CONCLUSION: Age- appropriate atrophy, stable from prior in September 2015. No acute findings. Earnest Torre MD Lower Extremity Ultrasound 05/28/16 0000 Signed Impressions: Service Date/Time: Saturday, May 28, 2016 22:27 - CONCLUSION: Negative for deep venous thrombosis bilateral lower extremity. Earnest Torre MD Objective Remarks GENERAL: 60 yo AA male, critically ill, s/p trach and PEG tube. No obvious bleeding SKIN: Warm and dry. No rash HEAD: Normocephalic. EYES: Pupils minimally reactive at 2 mm bilaterally. No scleral icterus. No injection or drainage. NECK: Supple, trachea midline. No JVD. trach in place without bleeding CARDIOVASCULAR: Tachycardic, RR. With S1, S2. No S4. II/ systolic murmur at the apex RESPIRATORY: Breath sounds equal bilaterally. Bilateral crackles improved from yesterday GASTROINTESTINAL: Abdomen soft, non-tender, nondistended. Clean dry and intact PEG site. MUSCULOSKELETAL: No peripheral edema. Palpable thrill left AV fistula. Neuro: Arousable and following commands on Precedex at 0.5 micrograms per kilo per hour. Moves all 4 extremities equally and spontaneous. A/P Assessment and Plan NEURO: Acute encephalopathy, post cardiac arrest. History of stroke without residual deficit (per friend's report) History of cocaine abuse Posttraumatic stress disorder As needed fentanyl for pain management. Neurologically improving Continue Precedex drip attempt to wean off. Currently at 0.5 mcg/kg per hour Continue Seroquel but increased to 50 mg twice a day EEG 06/12 revealed mild sleep. No seizure activity noted. MRI brain revealed chronic vascular changes. No acute findings Neuro has followed-Dr. Wilks RESP: Acute respiratory failure Healthcare associated pneumonia Intubated in ED 05/28/16 following cardiac arrest Currently tolerating TP 12 hours from a.m. DuoNeb q6 hours. Albuterol q2 prn. Ventilator Bundle. s/p trach 06/[address] Bearden CV: Cardiac arrest, secondary to hyperkalemia Pulmonary edema Nonischemic cardiomyopathy secondary to HTN, cocaine abuse Hypertension Elevated Troponin: ? NSTEMI Monitor HR and BP keep MAP>65mmHg Continue home meds: Hydralazine 25 tid. Clonidine 0.1 tid., Lopressor 25mg Q6 ( 100 mg twice a day at home) ASA 81 mg daily will be continued. Echo 05/31: EF 25-30%, no RWMA. Mild MR/TR. MEGAN 36 mmHg cardiac cath 12/09/2012 - EF 40%, normal coronaries. Elevated troponin, cardiac arrest. Per cardiology-no intervention planned. Had hemodialysis 2/4 -3 L GI: Hepatitis C Elevated LFT resolving Free air - likely secondary to EGD/tube feeding insufflation Daily TF-Nepro@50ml/hr. Monitor LFT's US liver: Bilateral pleural effusions. Thick-walled gallbladder with minimal pericholecystic fluid. Minimal ascites. Echogenic atrophic right kidney. Mild nonspecific prominence of the main pancreatic duct. status post suture by Dr. Zander Tabares. No bleeding actively from PEG site currently Prevacid for GI prophylaxis Colace for bowel regimen FEN/RENAL: ESRD Acute severe hyperkalemia - resolved Hypophosphatemia Intermittent hemodialysis per nephrology (Dr. Francisco) Emergent HD 05/28 due to potassium of 6.8 with bradycardia and cardiac arrest. Monitor renal function, I/O's, avoid nephrotoxins. s/p HD today Continue PhosLo 667 mg 3 times a day to be held today. Recheck in a.m. on 2000 3 times a day at home. ID: Acute healthcare associated pneumonia Received Zosyn and azithromycin in the emergency department 05/28. s/p Zosyn 2.25 g IV every 8 hours 05/29 - 06/12. Azithro x 10 days.05/28 nasal washing negative for Influenza. continue to monitor Pertinent cultures 05/28 - blood cultures 2 - 1 out of 2 corynebacterium not Jk 05/29 Sputum- beta strep not A HEME: Normocytic Anemia requiring transfusion, previously from acute blood loss from PEG tube 1 unit prbc, 1 FFP, 1 plt. DDAVP given 06/15 Given 1 unit PRBC 06/16, additional 1 unit PRBC given / Coags within normal limits Received 16 mg DDAVP and 5000 mg amicar Monitor CBC. Dr. Kevin/hematology followed. Von Willebrand antigen factor normal ENDO: Diabetes mellitus Medium dose Insulin sliding scale with bedside glucose every 6 hours PROPH: Heparin subcutaneous/ Prevacid 30 mg daily for stress ulcer prophylaxis. Doppler US LE negative for DVT ACCESS: Peripheral IV providing adequate access at this time. Left AV fistula accessed for hemodialysis Full code Palliative care is following to assist with deciding goals of therapy. Critical Care: The total care time was 35 minutes. Time to perform other separately billable procedures was not included in the critical care time. Chevy Gonzales MD Jun 26, 2016 14:57
[2016-06-26] MEDS: LORazepam 2 MG/ML VIAL IV PUSH PRN (20:18)
[2016-06-26] MEDS: CHLORHEXIDINE GLUCONATE 2 % 1 PACK (2 CLOTHS) TOP SCH (20:20)
[2016-06-27] VITALS (14 sets, daily range): BP systolic 120–177; BP diastolic 66–103; PULSE 92–119; RESP 20–26; TEMP 98–98.7; O2SAT 98–100
[2016-06-27] MEDS: INSULIN NovoLIN REGULAR SUPPLEMENTAL SCALE SQ SCH ×4 (01:47→21:00)
[2016-06-27] MEDS: LORazepam 2 MG/ML VIAL IV PUSH PRN (02:40)
[2016-06-27] MEDS: HEPARIN SODIUM - SQ 10,000 UNITS/ML VIAL SQ SCH ×2 (02:40→13:33)
[2016-06-27] MEDS: RESP: ALBUTEROL 2.5 MG/IPRATROPIUM 0.5 MG NEB (SCH) NEB ×4 (03:37→21:02)
[2016-06-27] MEDS: METOPROLOL TARTRATE 25 MG TAB PO/NG SCH ×4 (05:21→21:43)
[2016-06-27] MEDS: CHLORHEXIDINE 0.12% (ORAL KIT) 15 ML CUP MT SCH ×2 (08:00→20:00)
[2016-06-27 08:02] LABS: AUTOMATED NEUTROPHIL # 6.6 TH/MM3 (1.8-7.7); BASOPHIL # 0.1 TH/MM3 (0-0.2); BASOPHIL % 1.2 % (0.0-2.0); EOSINOPHIL # 0.2 TH/MM3 (0-0.4); EOSINOPHIL % 2.3 % (0.0-4.0); HEMATOCRIT 28.3 % (39.0-51.0); LYMPH % 8.7 % (9.0-44.0); LYMPHOCYTE # 0.7 TH/MM3 (1.0-4.8); MEAN CELL VOLUME 88.6 FL (80.0-100.0); MEAN CORPUSCULAR HEMOGLOBIN 30.5 PG (27.0-34.0); MEAN CORPUSCULAR HGB CONC 34.5 % (32.0-36.0); NEUT % 76.8 % (16.0-70.0); PLATELET COUNT 212 TH/MM3 (150-450); WHITE BLOOD COUNT 8.6 TH/MM3 (4.0-11.0)
[2016-06-27 08:20] LABS: HEMO FLAGS AUTO DIFF
[2016-06-27 08:44] LABS: BICARBONATE 31.3 MEQ/L (21.0-32.0); POTASSIUM 3.9 MEQ/L (3.5-5.1)
[2016-06-27] MEDS: DOCUSATE SODIUM 100 MG/10 ML UDC PO SCH ×2 (09:00→21:42)
[2016-06-27] MEDS: LANSOPRAZOLE SOLUTAB 30 MG TAB NG SCH (09:08)
[2016-06-27] MEDS: hydrALAZINE HCL 50 MG TAB PO SCH ×3 (09:08→18:24)
[2016-06-27] MEDS: cloNIDine HCL 0.1 MG TAB PO SCH ×3 (09:10→18:24)
[2016-06-27] MEDS: QUEtiapine FUMARATE 25 MG TAB PO SCH ×2 (09:11→21:42)
[2016-06-27] MEDS: SODIUM CHLORIDE 0.9% FLUSH 5 ML FLUSH IV FLUSH SCH ×2 (09:11→21:43)
[2016-06-27 09:21] LABS: PLATELET ESTIMATE SMEAR NORMAL (NORMAL); PLATELET MORPHOLOGY ENLARGED (NORMAL); SCAN/DIFF AUTO DIFF CONFIRMED
[2016-06-27] MEDS: cloNIDine HCL 0.1 MG TAB PO PRN (10:57)
--- NOTE | 2016-06-27 16:31 | HHI.NPPN ---
Subjective General Problems: Anemia Renal Failure: Chronic, End Stage Renal Disease Additional Remarks Patient is awake, with trach. and on T-Piece, not in distress. Review of Systems General General Remarks unable to evaluate due to mental status Objective Data Data 06/26/16 06/27/16 19:00 07:00 Intake Total 841 ml Output Total 75 ml 100 ml Balance -75 ml 741 ml IV Total 176 ml Tube Feeding 665 ml Output Urine Total 75 ml 100 ml Vital Signs Date Time Temp Pulse Resp B/P Pulse Ox O2 Delivery O2 Flow Rate FiO2 06/27/16 12:00 92 06/27/16 10:00 119 06/27/16 08:34 100 T-piece 6.00 28 06/27/16 08:00 98.7 111 24 167/89 99 06/27/16 08:00 115 06/27/16 07:00 99 T-Piece 28 06/27/16 06:00 103 06/27/16 04:00 109 06/27/16 04:00 98.2 109 22 144/88 99 06/27/16 02:00 102 06/27/16 00:00 100 06/27/16 00:00 98.0 100 20 120/66 99 06/26/16 22:00 99 06/26/16 20:35 98 T-piece 4.00 28 06/26/16 20:00 90 06/26/16 20:00 98.4 90 20 125/62 97 06/26/16 19:00 100 T-Piece 28 06/26/16 18:00 98.3 100 18 152/67 98 06/26/16 18:00 100 -: 06/27/16 0632 06/27/16 0632 Tubes & Lines Comment trach, PEG Drip Comment Precedex Physical Exam General Appearance: No Acute Distress, Anxious Eyes Eye Exam: Pupils Equal, Pupils Reactive Neck Neck Exam: Neck Supple Pulmonary Resp Exam: Breath Sounds Equal, Crackles, Decreased Bases, Diminished Breath Sounds Cardiology CV Exam: Regular, Normal Sinus Rhythm, Good Perfusion Gastrointestinal/Abdomen GI Exam: Soft, Non-Tender, Bowel Sounds Present, Non-Distended Extremeties Extremities Exam: Trace Edema Neurologic Neuro Exam: Alert, Awake Psychiatric Psych Exam: Appropriate Responses Assessment/Plan Discussed Condition With: Patient Assessment Summary: Anemia of CKD, Hypertension, End Stage Renal Disease Electrolyte Assessment: Hypocalcemia Problem List: (1) ESRD on dialysis Plan: Continue dialysis T-Th-Sat, Tolerated HD yesterday - 3L UF. Plan next HD Monday. on Epogen for anemia. Continue HD in AM. (2) Anemia Plan: Last hemoglobin stable (3) Hypertension Plan: BP stable. He is on metoprolol, hydralazine, clonidine with hold parameters (4) DM (diabetes mellitus) Plan: continue insulin coverage goal to maintain blood glucose between 140 and 180 off D10 , tube feeding was resumed (5) NSTEMI (non-ST elevated myocardial infarction) Plan: Troponin I elevated post cardiac arrest, chest compressions. he had catheterization in January 2016, normal coronary arteries (6) Elevated LFTs Plan: improved. (7) Cocaine abuse Plan: Cessation has been recommended. (8) Encephalopathy Plan: vent management, s/p trach placement. Encephalopathy improving. 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
[2016-06-27] MEDS: NEOMYCIN/POLYMYXIN/BACITRACIN OINT 15 GM TUBE TOPICAL SCH ×2 (18:24→21:00)
[2016-06-28] VITALS (15 sets, daily range): BP systolic 116–169; BP diastolic 57–80; PULSE 95–109; RESP 18–28; TEMP 98–98.9; O2SAT 96–100
[2016-06-28] MEDS: HEPARIN SODIUM - SQ 10,000 UNITS/ML VIAL SQ SCH ×2 (01:47→15:50)
[2016-06-28] MEDS: INSULIN NovoLIN REGULAR SUPPLEMENTAL SCALE SQ SCH ×4 (03:00→20:39)
[2016-06-28] MEDS: CHLORHEXIDINE GLUCONATE 2 % 1 PACK (2 CLOTHS) TOP SCH (04:00)
[2016-06-28] MEDS: RESP: ALBUTEROL 2.5 MG/IPRATROPIUM 0.5 MG NEB (SCH) NEB ×4 (04:09→21:34)
[2016-06-28] MEDS: METOPROLOL TARTRATE 25 MG TAB PO/NG SCH ×3 (05:12→18:17)
[2016-06-28] MEDS: QUEtiapine FUMARATE 25 MG TAB PO SCH ×2 (08:00→21:28)
[2016-06-28] MEDS: LANSOPRAZOLE SOLUTAB 30 MG TAB NG SCH (08:00)
[2016-06-28] MEDS: cloNIDine HCL 0.1 MG TAB PO SCH ×3 (08:00→18:17)
[2016-06-28] MEDS: CHLORHEXIDINE 0.12% (ORAL KIT) 15 ML CUP MT SCH ×2 (08:00→20:00)
[2016-06-28] MEDS: hydrALAZINE HCL 50 MG TAB PO SCH ×3 (08:00→18:17)
[2016-06-28] MEDS: NEOMYCIN/POLYMYXIN/BACITRACIN OINT 15 GM TUBE TOPICAL SCH ×2 (08:00→21:28)
[2016-06-28] MEDS: DOCUSATE SODIUM 100 MG/10 ML UDC PO SCH ×2 (08:01→21:28)
[2016-06-28] MEDS: SODIUM CHLORIDE 0.9% FLUSH 5 ML FLUSH IV FLUSH SCH ×2 (08:01→21:29)
[2016-06-28] MEDS: SODIUM CHLOR 0.9% 1000 ML INJ 1,000 ML IV PRN (08:56)
[2016-06-28] MEDS: GELATIN 12 MM/7 MM FOAM TOP PRN (08:57)
[2016-06-28] MEDS: EPOETIN ALFA 10,000 UNITS/ML VIAL IV PRN (08:57)
--- NOTE | 2016-06-28 09:35 | HHI.CCPN ---
Subjective Remarks/Hospital Course 05/28: 60 yo AAM with PMH of HTN, stroke without residual deficit, DM, nonischemic cardiomyopathy (EF 40% and stage I diastolic dysfunction) Cocaine abuse, Hepatitis C, ESRD on HD T/R/Sat who presents to [facility] [place] [facility] for 2 day history of SOB. He reported symptoms started 1/ after he received hemodialysis. He reported a nonproductive cough without fevers, chills, or chest pain. His workup revealed a normal white count and CXR that demonstrated RLL consolidation. His potassium was 6.8. While preparations were being made to administer medications to address his hyperkalemia he developed bradycardia and PEA arrest. He underwent CPR and received epinephrine and 1 amp of bicarbonate. It was return of spontaneous circulation after 8 minutes. He was intubated by the emergency department physician Dr. Clancy. Dr. Francisco with nephrology was consulted and he made arrangements for urgent dialysis which is taking place currently. Target removal 3.8 L per HD RN. Postintubation CXR demonstrates R base infiltrate but also appears there is right pleural effusion. Influenza screen negative. Receive Zosyn and azithromycin in the emergency department. 05/29: Sedated, arousable, not following commands, orally intubated on mechanical ventilation. Gets agitated on lightening sedation and has a strong gag reflex. 05/30: Sedated, arousable, not following commands. Remains orally intubated on mechanical ventilation. Failed C Pap trial today. Dialyzed earlier. 05/31: Sedated/encephalopathic on lightening sedation, not following commands. Remains orally intubated on mechanical ventilation. Failed C Pap trials yesterday. 2-D echo just being completed today. 06/01 No events overnight. On Precedex drip unresponsive and doesn't follow commands. Afebrile. 06/02 Patient s/p HD yesterday with removal 1.5L , on Precedex infusion for sedation. 06/03 No events overnight. Sedated with fentanyl and intubated. s/p HD yesterday with removal 1.5L. 06/04 Patient remains sedated and intubated. Afebrile. Did not tolerate CPAP trials yesterday as he became tachypneic. 06/05 Patient s/p HD yesterday with removal 2L. Sedated with Fentanyl and intubated. Afebrile. Patient gets very agitated and restless when sedation is weaned off. 06/06 Patient is sedated with Fentanyl placed on Diprivan as well last night. Gets agitated and tachypneic on CPAP trials. s/p HD yesterday with removal 2L. 06/07: Remains sedated/encephalopathic, orally intubated on mechanical ventilation. Failed C Pap trials yesterday. 06/08: Remains sedated/encephalopathic, orally intubated on mechanical ventilation. Gets agitated on lightening sedation however not following commands. We'll attempt Precedex and titrate down on fentanyl/propofol 06/09: Remains sedated/encephalopathic, orally intubated on mechanical ventilation. On Precedex/propofol/fentanyl. Will attempt transitioning to Precedex alone to control agitation for C Pap trials. 06/10: Still requiring Precedex/propofol and fentanyl for CPAP trials. Patient continues to be extremely agitated and currently unable to extubate. Not following commands. Positive BM. Tolerating tube feeds. Afebrile. 06/11: On Precedex drip currently. -3 L of hemodialysis. Moving all 4 extremities but not following commands. 06/12: no changes. plan for PEG and Trach tomorrow. 06/13: plan for trach today. discussed with health care proxy and she still has concerns about possible trach. will touch base with palliative care. have talked with Dr. Lee from trauma, and plan for trach at some point depending on his schedule and per family discussions. 06/14: plan for trach today. significant bleeding from around PEG site. GI aware. 2 units prbc ordered. coags ordered. 0.3mcg/kg DDAVP ordered. 06/15: trach yesterday by Dr. Lee. trach site and PEG site with ongoing oozing despite FFP, platelets, DDAVP. I talked with Dr. Francisco and he is ok with iv contrast for imaging if needed, given that this is ESRD with no hope of renal recovery. 06/16: Continues to oozing from tracheostomy site. Packed with Surgicel but continues to ooze. No oozing from PEG tube site. Currently nothing by mouth. 2 bowel movements. Awake and does follow commands 06/17: Afebrile. No more bleeding from tracheostomy site. PEG site intact. Positive BM. Awake and following commands. 06/18: On CPAP, getting HD. Follows commands. Trial of TP today 06/19: No acute events overnight tolerating C Pap. Unable to place on T piece yesterday he developed tidal volumes and tachypnea. Continues to follow commands 06/20: Sitting up in stretcher chair on TP. Upper chest wheezing. CXR shows improving infiltrates 06/21: Patient failed to be stopped in 2-3 hours yesterday. Currently on CPAP. Chest x-ray shows diffuse bilateral infiltrates increased from previous. Somnolent 06/22. Sedated on propofol. had HD with fluid removal yesterday. CXR shows significant improvement in bilateral infiltrates. Not following commands on propofol 06/23: Patient tolerating T piece today. Got 1 units PRBC with hemodialysis for hemoglobin of 6.7. No obvious bleeding 06/24: Continues to tolerate TPs. Continues to be on Precedex drip at 0.3 mcg/kg/ h. Hemoglobin stable. Follows commands squeezing hands. Afebrile. Tolerating tube feeding. 06/25: Awake and alert. Continues to be on TPs. Afebrile. Tolerating tube feeds. One bowel movement. Last hemodialysis today. -3 L 06/26: Currently resting in bed in no acute distress. Afebrile. 2 bowel movements overnight. Tolerating tube feeding. No acute events past 24 hours. Late entry for 06/27 (Note did not save yesterday): 06/27: Clinically unchanged. On T piece. Precedex drip for agitation. Objective Afebrile, Pulse: 115/min, RR 20s (on Tpiece with 28% FiO2), BP 167/89 Result Diagram: 06/27/16 0632 06/27/16 0632 Imaging Last Impressions Chest X-Ray 06/23/16 0600 Signed Impressions: Service Date/Time: June 03:02 - CONCLUSION: No significant change. Minh Aponte MD Abdomen X-Ray 06/16/16 0000 Signed Impressions: Service Date/Time: May 09:12 - CONCLUSION: Apparent appropriate placement of gastric tube placement. Amaris Rosenberg MD Abdomen/Pelvis CT 06/15/16 0000 Signed Impressions: Service Date/Time: Wednesday, June 15, 2016 13:16 - CONCLUSION: Significant free intraperitoneal air. Consolidative changes in both bases with small bilateral pleural effusions. Mikhail Abrams MD FACR Brain MRI 06/10/16 0000 Signed Impressions: Service Date/Time: Friday, June 10, 2016 20:14 - CONCLUSION: 1. Mild chronic-appearing ischemic changes in the periventricular white matter slightly progressed from 2014. No recent infarct, mass effect or midline shift. No hydrocephalus. Lakhwinder Pringle MD Liver Ultrasound 06/01/16 0000 Signed Impressions: Service Date/Time: Wednesday, June 01, 2016 15:38 - CONCLUSION: 1. Bilateral pleural effusions. 2. Thick-walled gallbladder with minimal pericholecystic fluid. If there is clinical concern for acute cholecystitis a hepatobiliary scan may be helpful to confirm cystic duct obstruction. 3. Minimal ascites. 4. Echogenic atrophic right kidney. 5. Mild nonspecific prominence of the main pancreatic duct. Enzo Price MD Head CT 05/29/16 0000 Signed Impressions: Service Date/Time: Sunday, May 29, 2016 03:03 - CONCLUSION: Age- appropriate atrophy, stable from prior in September 2015. No acute findings. Earnest Torre MD Lower Extremity Ultrasound 05/28/16 0000 Signed Impressions: Service Date/Time: Saturday, May 28, 2016 22:27 - CONCLUSION: Negative for deep venous thrombosis bilateral lower extremity. Earnest Torre MD Objective Remarks GENERAL: 60 yo AA male, critically ill, s/p trach and PEG tube. No obvious bleeding SKIN: Warm and dry. No rash HEAD: Normocephalic. EYES: Pupils minimally reactive at 2 mm bilaterally. No scleral icterus. No injection or drainage. NECK: Supple, trachea midline. No JVD. trach in place without bleeding CARDIOVASCULAR: Tachycardic, RR. With S1, S2. No S4. II/ systolic murmur at the apex RESPIRATORY: On T piece, Breath sounds equal bilaterally. Bilateral crackles improved from yesterday GASTROINTESTINAL: Abdomen soft, non-tender, nondistended. Clean dry and intact PEG site. MUSCULOSKELETAL: No peripheral edema. Palpable thrill left AV fistula. Neuro: Arousable and following commands on Precedex at 0.5 micrograms per kilo per hour. Moves all 4 extremities equally and spontaneous. A/P Assessment and Plan NEURO: Acute encephalopathy, post cardiac arrest. History of stroke without residual deficit (per friend's report) History of cocaine abuse Posttraumatic stress disorder As needed fentanyl for pain management. Neurologically improving Continue Precedex drip attempt to wean off. Currently at 0.5 mcg/kg per hour Continue Seroquel but increased to 50 mg twice a day EEG 06/12 revealed mild sleep. No seizure activity noted. MRI brain revealed chronic vascular changes. No acute findings Neuro has followed-Dr. Wilks RESP: Acute respiratory failure Healthcare associated pneumonia Intubated in ED 05/28/16 following cardiac arrest Currently tolerating TP 12 hours from a.m. DuoNeb q6 hours. Albuterol q2 prn. Ventilator Bundle. s/p trach 06/[address] Bearden CV: Cardiac arrest, secondary to hyperkalemia Pulmonary edema Nonischemic cardiomyopathy secondary to HTN, cocaine abuse Hypertension Elevated Troponin: ? NSTEMI Monitor HR and BP keep MAP>65mmHg Continue home meds: Hydralazine 25 tid. Clonidine 0.1 tid., Lopressor 25mg Q6 ( 100 mg twice a day at home) ASA 81 mg daily will be continued. Echo 05/31: EF 25-30%, no RWMA. Mild MR/TR. MEGAN 36 mmHg cardiac cath 12/09/2012 - EF 40%, normal coronaries. Elevated troponin, cardiac arrest. Per cardiology-no intervention planned. Had hemodialysis 2/4 -3 L GI: Hepatitis C Elevated LFT resolving Free air - likely secondary to EGD/tube feeding insufflation Daily TF-Nepro@50ml/hr. Monitor LFT's US liver: Bilateral pleural effusions. Thick-walled gallbladder with minimal pericholecystic fluid. Minimal ascites. Echogenic atrophic right kidney. Mild nonspecific prominence of the main pancreatic duct. status post suture by Dr. Zander Tabares. No bleeding actively from PEG site currently Prevacid for GI prophylaxis Colace for bowel regimen FEN/RENAL: ESRD Acute severe hyperkalemia - resolved Hypophosphatemia Intermittent hemodialysis per nephrology (Dr. Francisco) Emergent HD 05/28 due to potassium of 6.8 with bradycardia and cardiac arrest. Monitor renal function, I/O's, avoid nephrotoxins. s/p HD today Continue PhosLo 667 mg 3 times a day. ID: Acute healthcare associated pneumonia Received Zosyn and azithromycin in the emergency department 05/28. s/p Zosyn 2.25 g IV every 8 hours 05/29 - 06/12. Azithro x 10 days.05/28 nasal washing negative for Influenza. continue to monitor Pertinent cultures 05/28 - blood cultures 2 - 1 out of 2 corynebacterium not Jk 05/29 Sputum- beta strep not A HEME: Normocytic Anemia requiring transfusion, previously from acute blood loss from PEG tube 1 unit prbc, 1 FFP, 1 plt. DDAVP given 06/15 Given 1 unit PRBC 06/16, additional 1 unit PRBC given 06/23 Coags within normal limits Received 16 mg DDAVP and 5000 mg amicar Monitor CBC. Dr. Kevin/hematology followed. Von Willebrand antigen factor normal ENDO: Diabetes mellitus Medium dose Insulin sliding scale with bedside glucose every 6 hours PROPH: Heparin subcutaneous/ Prevacid 30 mg daily for stress ulcer prophylaxis. Doppler US LE negative for DVT ACCESS: Peripheral IV providing adequate access at this time. Left AV fistula accessed for hemodialysis Full code Palliative care is following to assist with deciding goals of therapy. Roajs Fonseca MD Jun 28, 2016 09:35
--- NOTE | 2016-06-28 09:41 | HHI.CCPN ---
Subjective Remarks/Hospital Course 05/28: 60 yo AAM with PMH of HTN, stroke without residual deficit, DM, nonischemic cardiomyopathy (EF 40% and stage I diastolic dysfunction) Cocaine abuse, Hepatitis C, ESRD on HD T/R/Sat who presents to [facility] [place] [facility] for 2 day history of SOB. He reported symptoms started 1/ after he received hemodialysis. He reported a nonproductive cough without fevers, chills, or chest pain. His workup revealed a normal white count and CXR that demonstrated RLL consolidation. His potassium was 6.8. While preparations were being made to administer medications to address his hyperkalemia he developed bradycardia and PEA arrest. He underwent CPR and received epinephrine and 1 amp of bicarbonate. It was return of spontaneous circulation after 8 minutes. He was intubated by the emergency department physician Dr. Clancy. Dr. Francisco with nephrology was consulted and he made arrangements for urgent dialysis which is taking place currently. Target removal 3.8 L per HD RN. Postintubation CXR demonstrates R base infiltrate but also appears there is right pleural effusion. Influenza screen negative. Receive Zosyn and azithromycin in the emergency department. 05/29: Sedated, arousable, not following commands, orally intubated on mechanical ventilation. Gets agitated on lightening sedation and has a strong gag reflex. 05/30: Sedated, arousable, not following commands. Remains orally intubated on mechanical ventilation. Failed C Pap trial today. Dialyzed earlier. 05/31: Sedated/encephalopathic on lightening sedation, not following commands. Remains orally intubated on mechanical ventilation. Failed C Pap trials yesterday. 2-D echo just being completed today. 06/01 No events overnight. On Precedex drip unresponsive and doesn't follow commands. Afebrile. 06/02 Patient s/p HD yesterday with removal 1.5L , on Precedex infusion for sedation. 06/03 No events overnight. Sedated with fentanyl and intubated. s/p HD yesterday with removal 1.5L. 06/04 Patient remains sedated and intubated. Afebrile. Did not tolerate CPAP trials yesterday as he became tachypneic. 06/05 Patient s/p HD yesterday with removal 2L. Sedated with Fentanyl and intubated. Afebrile. Patient gets very agitated and restless when sedation is weaned off. 06/06 Patient is sedated with Fentanyl placed on Diprivan as well last night. Gets agitated and tachypneic on CPAP trials. s/p HD yesterday with removal 2L. 06/07: Remains sedated/encephalopathic, orally intubated on mechanical ventilation. Failed C Pap trials yesterday. 06/08: Remains sedated/encephalopathic, orally intubated on mechanical ventilation. Gets agitated on lightening sedation however not following commands. We'll attempt Precedex and titrate down on fentanyl/propofol 06/09: Remains sedated/encephalopathic, orally intubated on mechanical ventilation. On Precedex/propofol/fentanyl. Will attempt transitioning to Precedex alone to control agitation for C Pap trials. 06/10: Still requiring Precedex/propofol and fentanyl for CPAP trials. Patient continues to be extremely agitated and currently unable to extubate. Not following commands. Positive BM. Tolerating tube feeds. Afebrile. 06/11: On Precedex drip currently. -3 L of hemodialysis. Moving all 4 extremities but not following commands. 06/12: no changes. plan for PEG and Trach tomorrow. 06/13: plan for trach today. discussed with health care proxy and she still has concerns about possible trach. will touch base with palliative care. have talked with Dr. Lee from trauma, and plan for trach at some point depending on his schedule and per family discussions. 06/14: plan for trach today. significant bleeding from around PEG site. GI aware. 2 units prbc ordered. coags ordered. 0.3mcg/kg DDAVP ordered. 06/15: trach yesterday by Dr. Lee. trach site and PEG site with ongoing oozing despite FFP, platelets, DDAVP. I talked with Dr. Francisco and he is ok with iv contrast for imaging if needed, given that this is ESRD with no hope of renal recovery. 06/16: Continues to oozing from tracheostomy site. Packed with Surgicel but continues to ooze. No oozing from PEG tube site. Currently nothing by mouth. 2 bowel movements. Awake and does follow commands 06/17: Afebrile. No more bleeding from tracheostomy site. PEG site intact. Positive BM. Awake and following commands. 06/18: On CPAP, getting HD. Follows commands. Trial of TP today 06/19: No acute events overnight tolerating C Pap. Unable to place on T piece yesterday he developed tidal volumes and tachypnea. Continues to follow commands 06/20: Sitting up in stretcher chair on TP. Upper chest wheezing. CXR shows improving infiltrates 06/21: Patient failed to be stopped in 2-3 hours yesterday. Currently on CPAP. Chest x-ray shows diffuse bilateral infiltrates increased from previous. Somnolent 06/22. Sedated on propofol. had HD with fluid removal yesterday. CXR shows significant improvement in bilateral infiltrates. Not following commands on propofol 06/23: Patient tolerating T piece today. Got 1 units PRBC with hemodialysis for hemoglobin of 6.7. No obvious bleeding 06/24: Continues to tolerate TPs. Continues to be on Precedex drip at 0.3 mcg/kg/ h. Hemoglobin stable. Follows commands squeezing hands. Afebrile. Tolerating tube feeding. 06/25: Awake and alert. Continues to be on TPs. Afebrile. Tolerating tube feeds. One bowel movement. Last hemodialysis today. -3 L 06/26: Currently resting in bed in no acute distress. Afebrile. 2 bowel movements overnight. Tolerating tube feeding. No acute events past 24 hours. Late entry for 06/27 (Note did not save yesterday): 06/27: Clinically unchanged. On T piece. Precedex drip for agitation. 06/28: Remains on T piece. Precedex low-dose to be stopped today with Haldol when necessary for agitation. Being dialyzed currently Objective Vital Signs Date Time Temp Pulse Resp B/P Pulse Ox O2 Delivery O2 Flow Rate FiO2 06/28/16 08:21 96 T-piece 6.00 28 06/28/16 06:00 98 06/28/16 04:00 98.0 18 152/71 Intake and Output 06/27/16 06/27/16 06/28/16 08:00 16:00 00:00 Intake Total 398 ml 600 ml 238 ml Output Total 50 ml Balance 348 ml 600 ml 238 ml Result Diagram: 06/27/16 0632 06/27/16 0632 Imaging Last Impressions Chest X-Ray 06/23/16 06 Signed Impressions: Service Date/Time: June 03:02 - CONCLUSION: No significant change. Minh Aponte MD Abdomen X-Ray 06/16/16 0000 Signed Impressions: Service Date/Time: May 09:12 - CONCLUSION: Apparent appropriate placement of gastric tube placement. Amaris Rosenberg MD Abdomen/Pelvis CT 06/15/16 0000 Signed Impressions: Service Date/Time: Wednesday, June 15, 2016 13:16 - CONCLUSION: Significant free intraperitoneal air. Consolidative changes in both bases with small bilateral pleural effusions. Mikhail Abrams MD FACR Brain MRI 06/10/16 0000 Signed Impressions: Service Date/Time: Friday, June 10, 2016 20:14 - CONCLUSION: 1. Mild chronic-appearing ischemic changes in the periventricular white matter slightly progressed from 2014. No recent infarct, mass effect or midline shift. No hydrocephalus. Lakhwinder Pringle MD Liver Ultrasound 06/01/16 0000 Signed Impressions: Service Date/Time: Wednesday, June 01, 2016 15:38 - CONCLUSION: 1. Bilateral pleural effusions. 2. Thick-walled gallbladder with minimal pericholecystic fluid. If there is clinical concern for acute cholecystitis a hepatobiliary scan may be helpful to confirm cystic duct obstruction. 3. Minimal ascites. 4. Echogenic atrophic right kidney. 5. Mild nonspecific prominence of the main pancreatic duct. Enzo Price MD Head CT 05/29/16 0000 Signed Impressions: Service Date/Time: Sunday, May 29, 2016 03:03 - CONCLUSION: Age- appropriate atrophy, stable from prior in September 2015. No acute findings. Earnest Torre MD Lower Extremity Ultrasound 05/28/16 0000 Signed Impressions: Service Date/Time: Saturday, May 28, 2016 22:27 - CONCLUSION: Negative for deep venous thrombosis bilateral lower extremity. Earnest Torre MD Objective Remarks GENERAL: 60 yo AA male, s/p trach and PEG tube. No obvious bleeding SKIN: Warm and dry. No rash HEAD: Normocephalic. EYES: Pupils minimally reactive at 2 mm bilaterally. No scleral icterus. No injection or drainage. NECK: Supple, trachea midline. No JVD. trach in place without bleeding CARDIOVASCULAR: Tachycardic, RR. With S1, S2. No S4. II/ systolic murmur at the apex RESPIRATORY: On T piece, Breath sounds equal bilaterally. Scattered rhonchi GASTROINTESTINAL: Abdomen soft, non-tender, nondistended. Clean dry and intact PEG site. MUSCULOSKELETAL: No peripheral edema. Palpable thrill left AV fistula. Neuro: Arousable and following commands on Precedex at 0.5 micrograms per kilo per hour. Moves all 4 extremities equally and spontaneous. A/P Assessment and Plan NEURO: Acute encephalopathy, post cardiac arrest. History of stroke without residual deficit (per friend's report) History of cocaine abuse Posttraumatic stress disorder As needed fentanyl for pain management. Neurologically improving Precedex currently at 0.5 mcg/kg per hour - we'll stop today and start Haldol when necessary for agitation Continue Seroquel but increased to 50 mg twice a day EEG 06/12 revealed mild sleep. No seizure activity noted. MRI brain revealed chronic vascular changes. No acute findings Neuro has followed-Dr. Wilks RESP: Acute respiratory failure Healthcare associated pneumonia Intubated in ED 05/28/16 following cardiac arrest Tolerating T piece DuoNeb q6 hours. Albuterol q2 prn. Ventilator Bundle. s/p trach 06/[address] Bearden CV: Cardiac arrest, secondary to hyperkalemia Pulmonary edema Nonischemic cardiomyopathy secondary to HTN, cocaine abuse Hypertension Elevated Troponin: ? NSTEMI Monitor HR and BP keep MAP>65mmHg Continue home meds: Hydralazine 25 tid. Clonidine 0.1 tid., Lopressor 25mg Q6 ( 100 mg twice a day at home) ASA 81 mg daily will be continued. Echo 05/31: EF 25-30%, no RWMA. Mild MR/TR. MEGAN 36 mmHg cardiac cath 12/09/2012 - EF 40%, normal coronaries. Elevated troponin, cardiac arrest. Per cardiology-no intervention planned. Had hemodialysis 2/4 -3 L GI: Hepatitis C Elevated LFT resolving Free air - likely secondary to EGD/tube feeding insufflation Daily TF-Nepro@50ml/hr. Monitor LFT's US liver: Bilateral pleural effusions. Thick-walled gallbladder with minimal pericholecystic fluid. Minimal ascites. Echogenic atrophic right kidney. Mild nonspecific prominence of the main pancreatic duct. status post suture by Dr. Zander Tabares. No bleeding actively from PEG site currently Prevacid for GI prophylaxis Colace for bowel regimen FEN/RENAL: ESRD Acute severe hyperkalemia - resolved Hypophosphatemia Intermittent hemodialysis per nephrology (Dr. Francisco) Emergent HD 05/28 due to potassium of 6.8 with bradycardia and cardiac arrest. Monitor renal function, I/O's, avoid nephrotoxins. s/p HD today Continue PhosLo 667 mg 3 times a day. ID: Acute healthcare associated pneumonia Received Zosyn and azithromycin in the emergency department 05/28. s/p Zosyn 2.25 g IV every 8 hours 05/29 - 06/12. Azithro x 10 days.05/28 nasal washing negative for Influenza. continue to monitor Pertinent cultures 05/28 - blood cultures 2 - 1 out of 2 corynebacterium not Jk 05/29 Sputum- beta strep not A HEME: Normocytic Anemia requiring transfusion, previously from acute blood loss from PEG tube 1 unit prbc, 1 FFP, 1 plt. DDAVP given 06/15 Given 1 unit PRBC 06/16, additional 1 unit PRBC given 06/23 Coags within normal limits Received 16 mg DDAVP and 5000 mg amicar Monitor CBC. Dr. Kevin/hematology followed. Von Willebrand antigen factor normal ENDO: Diabetes mellitus Medium dose Insulin sliding scale with bedside glucose every 6 hours PROPH: Heparin subcutaneous/ Prevacid 30 mg daily for stress ulcer prophylaxis. Doppler US LE negative for DVT ACCESS: Peripheral IV providing adequate access at this time. Left AV fistula accessed for hemodialysis Full code Palliative care is following to assist with deciding goals of therapy. Rojas Fonseca MD Jun 28, 2016 09:41
[2016-06-28] MEDS: HALOPERIDOL LACTATE 5 MG/ML AMP IM PRN (11:08)
--- NOTE | 2016-06-28 15:27 | HHI.NPPN ---
Subjective General Problems: Anemia Renal Failure: Chronic, End Stage Renal Disease Additional Remarks Patient is awake but more confused today, with trach. and on T-Piece. Review of Systems General General Remarks unable to evaluate due to mental status Objective Data Data 06/27/16 06/28/16 19:00 07:00 Intake Total 600 ml 536 ml Balance 600 ml 536 ml Intake Oral 0 ml IV Total 143 ml Tube Feeding 600 ml 393 ml # Voids 1 1 # Bowel Movements 1 Vital Signs Date Time Temp Pulse Resp B/P Pulse Ox O2 Delivery O2 Flow Rate FiO2 06/28/16 10:00 108 06/28/16 08:21 96 T-piece 6.00 28 06/28/16 08:00 103 06/28/16 08:00 98.0 103 24 169/80 99 06/28/16 07:00 100 T-Piece 28 06/28/16 06:00 98 06/28/16 04:00 100 06/28/16 04:00 98.0 100 18 152/71 100 06/28/16 02:00 101 06/28/16 00:00 99 06/28/16 00:00 98.2 99 28 131/71 97 06/27/16 22:00 104 06/27/16 21:02 98 Trach Collar 5.00 28 06/27/16 20:00 98.5 103 26 162/103 99 06/27/16 20:00 103 06/27/16 19:00 99 T-Piece 28 06/27/16 18:00 107 06/27/16 16:00 98.4 92 22 159/98 99 06/27/16 16:00 92 -: 06/27/16 0632 06/27/16 0632 Tubes & Lines Comment trach, PEG Drip Comment Precedex Physical Exam General Appearance: No Acute Distress, Anxious Eyes Eye Exam: Pupils Equal, Pupils Reactive Neck Neck Exam: Neck Supple Pulmonary Resp Exam: Breath Sounds Equal, Crackles, Decreased Bases, Diminished Breath Sounds Cardiology CV Exam: Regular, Normal Sinus Rhythm, Good Perfusion Gastrointestinal/Abdomen GI Exam: Soft, Non-Tender, Bowel Sounds Present, Non-Distended Extremeties Extremities Exam: Trace Edema Neurologic Neuro Exam: Alert Assessment/Plan Discussed Condition With: Patient Assessment Summary: Anemia of CKD, Hypertension, End Stage Renal Disease Electrolyte Assessment: Hypocalcemia Problem List: (1) ESRD on dialysis Plan: Continue dialysis T--Mon, on Epogen for anemia. HD done and 3 liters removed. (2) Anemia Plan: Last hemoglobin stable (3) Hypertension Plan: BP stable. He is on metoprolol, hydralazine, clonidine with hold parameters (4) DM (diabetes mellitus) Plan: continue insulin coverage goal to maintain blood glucose between 140 and 180 off D10 , tube feeding was resumed (5) NSTEMI (non-ST elevated myocardial infarction) Plan: Troponin I elevated post cardiac arrest, chest compressions. he had catheterization in January 2016, normal coronary arteries (6) Elevated LFTs Plan: improved. (7) Cocaine abuse Plan: Cessation has been recommended. (8) Encephalopathy Plan: vent management, s/p trach placement. Encephalopathy improving. Problem Qualifiers (1) Anemia: Qualified Code: D64.9 - Anemia, unspecified type (2) Hypertension: Qualified Code: I10 - Essential hypertension (3) DM (diabetes mellitus): Qualified Code: E11.22 - Type 2 diabetes mellitus with diabetic chronic kidney disease, unspecified CKD stage, unspecified [facility]ci insulin use status Severo Peck MD Jun 28, 2016 15:27
--- NOTE | 2016-06-28 20:12 | MB ---
cc: FRANCIS CAN MD DATE OF CONSULTATION 06/28/[address] Jorge Fonseca REASON FOR CONSULTATION Pulmonary management. HISTORY OF THE PRESENT ILLNESS Mr. Bloom is a 60-year-old -[place] male with history of hypertension, diabetes mellitus, cardiomyopathy with ejection fraction of 40%, end-stage renal disease on dialysis. The patient was admitted in the hospital with shortness of breath. His potassium was also high and he was evaluated in the emergency room. He had a cardiac arrest. CPR was done. The patient was intubated. The patient could not be extubated safely and he underwent a tracheostomy tube placement and PEG tube placement on 06/14. Currently he is on a trache collar. Opens his eyes and follows simple commands by moving and squeezing the hand. He has a small amount of trache secretions. He is on 28% trache collar. PAST MEDICAL HISTORY Significant for: 1. A history of hypertension. 2. Diabetes mellitus. 3. End-stage renal disease. 4. Nonischemic cardiomyopathy, ejection fraction 40%. 5. Diastolic dysfunction. 6. Hepatitis C. 7. Cocaine use. MEDICATIONS He is currently takin. Haldol 5 mg q.8h p.r.n. 2. Seroquel 50 mg twice a day. 3. Prilosec 30 milligrams daily. 4. Albuterol/Atrovent nebulizer treatment. 5. Colace 100 milligrams q.12-hour. 6. Epogen 10,000 units. 7. Hydralazine 50 mg three times a day. 8. Heparin 5000 units q.12-hour. 9. He is on insulin. 10. Metoprolol 25 mg q.6h. 11. Lorazepam 2 mg q.4h p.r.n. for agitation. 12. Clonidine 0.1 milligram three times a day. ALLERGIES HE IS ALLERGIC TO IBUPROFEN AND SULFA. SOCIAL HISTORY Not available. FAMILY HISTORY Not available. PHYSICAL EXAMINATION GENERAL: Well built, well-nourished male, awake, moves all extremities. VITAL SIGNS: Blood pressure is 153/72, heart rate 109, respirations 16, temperature 98.8. HEENT: Pupils are equal and reactive to light. Oral mucosa, nasal mucosa normal. NECK: Supple. He has a tracheostomy tube in place. CHEST: Air entry equal bilaterally. He has scattered rales. CARDIOVASCULAR: S1, S2 normal. ABDOMEN: He has a PEG tube in place. EXTREMITIES: No edema. CENTRAL NERVOUS SYSTEM: He moves all extremities, squeezes with hand. LABORATORY DATA His lab evaluation, WBC count 8.6, hemoglobin 9.8, hematocrit 28.3, MCV 88, platelet count 212. Sodium 137, potassium 3.9, chloride 94, CO2 31, BUN 77, creatinine 6.37. IMAGING His chest x-ray shows airspace disease and small pleural effusion. IMPRESSION 1. Respiratory failure status post tracheostomy tube. 2. Status post cardiac arrest. 3. End-stage renal disease on hemodialysis. 4. Encephalopathy. 5. History of cerebrovascular accident. 6. History of non ischemic cardiomyopathy. 7. Diabetes mellitus. 8. History of cocaine use. PLAN We will keep him on the trache collar, trache suction as needed. Aerosol treatment. He is stable off antibiotic. Continue tube feedings. He is on hemodialysis. We will wean from the trachea as he tolerates. Further treatment will depend on the course in the hospital. Thank you Dr. Fonseca for this consultation. MD MANDIE Pitts/GOLDIE /7:43 PM /7:55 PM MTDEloy
[2016-06-29] VITALS (17 sets, daily range): BP systolic 108–170; BP diastolic 2–96; PULSE 89–116; RESP 20–26; TEMP 97.5–98.2; O2SAT 99–100
[2016-06-29] MEDS: METOPROLOL TARTRATE 25 MG TAB PO/NG SCH ×5 (00:53→22:30)
[2016-06-29] MEDS: HEPARIN SODIUM - SQ 10,000 UNITS/ML VIAL SQ SCH ×2 (02:47→14:09)
[2016-06-29] MEDS: INSULIN NovoLIN REGULAR SUPPLEMENTAL SCALE SQ SCH ×4 (03:00→20:38)
[2016-06-29] MEDS: CHLORHEXIDINE GLUCONATE 2 % 1 PACK (2 CLOTHS) TOP SCH (04:00)
[2016-06-29] MEDS: CHLORHEXIDINE 0.12% (ORAL KIT) 15 ML CUP MT SCH ×2 (08:00→20:00)
[2016-06-29] MEDS: RESP: ALBUTEROL 2.5 MG/IPRATROPIUM 0.5 MG NEB (SCH) NEB (08:51)
[2016-06-29] MEDS: NEOMYCIN/POLYMYXIN/BACITRACIN OINT 15 GM TUBE TOPICAL SCH ×2 (09:18→20:38)
[2016-06-29] MEDS: LANSOPRAZOLE SOLUTAB 30 MG TAB NG SCH (09:19)
[2016-06-29] MEDS: QUEtiapine FUMARATE 25 MG TAB PO SCH ×2 (09:19→20:47)
[2016-06-29] MEDS: hydrALAZINE HCL 50 MG TAB PO SCH ×3 (09:19→17:19)
[2016-06-29] MEDS: DOCUSATE SODIUM 100 MG/10 ML UDC PO SCH ×2 (09:19→20:38)
[2016-06-29] MEDS: cloNIDine HCL 0.1 MG TAB PO SCH ×3 (09:19→17:19)
[2016-06-29] MEDS: SODIUM CHLORIDE 0.9% FLUSH 5 ML FLUSH IV FLUSH SCH ×2 (09:19→20:39)
[2016-06-29 10:17] LABS: AUTOMATED NEUTROPHIL # 6.8 TH/MM3 (1.8-7.7); BASOPHIL # 0.1 TH/MM3 (0-0.2); BASOPHIL % 0.8 % (0.0-2.0); EOSINOPHIL # 0.1 TH/MM3 (0-0.4); EOSINOPHIL % 1.6 % (0.0-4.0); HEMATOCRIT 27.3 % (39.0-51.0); HEMO FLAGS DIFF FINAL; LYMPH % 6.8 % (9.0-44.0); LYMPHOCYTE # 0.6 TH/MM3 (1.0-4.8); MEAN CELL VOLUME 89.7 FL (80.0-100.0); MEAN CORPUSCULAR HEMOGLOBIN 30.5 PG (27.0-34.0); MONO % 11.1 % (0.0-8.0); NEUT % 79.7 % (16.0-70.0); PLATELET COUNT 230 TH/MM3 (150-450); RED BLOOD COUNT 3.04 MIL/MM3 (4.50-5.90); RED CELL DISTRIBUTION WIDTH 15.4 % (11.6-17.2); WHITE BLOOD COUNT 8.5 TH/MM3 (4.0-11.0)
[2016-06-29 10:35] LABS: ALKALINE PHOSPHATASE 118 U/L (45-117); ALT (GPT) 26 U/L (12-78); ANION GAP 9 MEQ/L (5-15); AST (GOT) 53 U/L (15-37); BICARBONATE 31.8 MEQ/L (21.0-32.0); BLOOD UREA NITROGEN 66 MG/DL (7-18); CHLORIDE 93 MEQ/L (98-107); GLOMERULAR FILTRATION RATE 12 ML/MIN (>89); MAGNESIUM 2.5 MG/DL (1.5-2.5); POTASSIUM 4.1 MEQ/L (3.5-5.1); SODIUM (NA) 134 MEQ/L (136-145); TOTAL BILIRUBIN ADULT 0.5 MG/DL (0.2-1.0)
--- NOTE | 2016-06-29 11:06 | HHI.NPPN ---
Subjective General Problems: Anemia Renal Failure: Chronic, End Stage Renal Disease Additional Remarks Patient is awake remain on T-Piece, answering simple questions. Review of Systems General General Remarks unable to evaluate due to mental status Objective Data Data 06/28/16 06/29/16 19:00 07:00 Intake Total 568 ml 1150 ml Output Total 3000 ml Balance -2432 ml 1150 ml IV Total 12 ml Tube Feeding 556 ml 1150 ml Hemodialysis 3000 ml # Voids 1 2 Vital Signs Date Time Temp Pulse Resp B/P Pulse Ox O2 Delivery O2 Flow Rate FiO2 06/29/16 09:00 112 06/29/16 08:49 99 T-piece 28 06/29/16 08:00 114 06/29/16 07:00 116 06/29/16 04:00 111 06/29/16 03:00 98.2 110 20 108/77 100 06/29/16 03:00 100 T-Piece 28 06/29/16 03:00 113 06/29/16 02:00 103 06/29/16 01:00 106 06/29/16 00:00 107 06/28/16 23:30 100 T-Piece 28 06/28/16 23:30 98.4 109 24 150/80 100 06/28/16 22:00 104 06/28/16 21:34 99 T-piece 4.00 28 06/28/16 20:00 98.2 95 24 128/69 98 06/28/16 20:00 95 06/28/16 19:00 100 T-Piece 28 06/28/16 18:00 103 06/28/16 16:00 98.8 109 23 153/72 98 06/28/16 16:00 109 06/28/16 14:00 106 06/28/16 12:00 98.9 97 20 116/57 99 06/28/16 12:00 97 -: 06/29/16 0940 06/29/16 0940 Tubes & Lines Comment trach, PEG Drip Comment Precedex Physical Exam General Appearance: No Acute Distress, Anxious Eyes Eye Exam: Pupils Equal, Pupils Reactive Neck Neck Exam: Neck Supple Pulmonary Resp Exam: Breath Sounds Equal, Crackles, Decreased Bases, Diminished Breath Sounds Cardiology CV Exam: Regular, Normal Sinus Rhythm, Good Perfusion Gastrointestinal/Abdomen GI Exam: Soft, Non-Tender, Bowel Sounds Present, Non-Distended Extremeties Extremities Exam: Trace Edema Neurologic Neuro Exam: Alert Assessment/Plan Discussed Condition With: Patient Assessment Summary: Anemia of CKD, Hypertension, End Stage Renal Disease Electrolyte Assessment: Hypocalcemia Problem List: (1) ESRD on dialysis Plan: Continue dialysis T--Mon, on Epogen for anemia. HD done yesterday. Weaning from Trach. as tolerated. HD will be in AM. (2) Anemia Plan: Last hemoglobin stable (3) Hypertension Plan: BP stable. He is on metoprolol, hydralazine, clonidine with hold parameters (4) DM (diabetes mellitus) Plan: continue insulin coverage goal to maintain blood glucose between 140 and 180 off D10 , tube feeding was resumed (5) NSTEMI (non-ST elevated myocardial infarction) Plan: Troponin I elevated post cardiac arrest, chest compressions. he had catheterization in January 2016, normal coronary arteries (6) Elevated LFTs Plan: improved. (7) Cocaine abuse Plan: Cessation has been recommended. (8) Encephalopathy Plan: vent management, s/p trach placement. Encephalopathy improving. 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
--- NOTE | 2016-06-29 16:29 | HHI.PR ---
Subjective Remarks 60 YOAA male with RF, trach, ESRDs/p cardiac arrest On Trach mask Follows simple commands Small amount of trach secretions [place] at BS Objective Vital Signs Vital Signs Date Time Temp Pulse Resp B/P Pulse Ox O2 Delivery O2 Flow Rate FiO2 06/29/16 09:00 112 06/29/16 08:49 99 T-piece 28 06/29/16 08:00 114 06/29/16 07:00 116 06/29/16 04:00 111 06/29/16 03:00 98.2 110 20 108/77 100 06/29/16 03:00 100 T-Piece 28 06/29/16 03:00 113 06/29/16 02:00 103 06/29/16 01:00 106 06/29/16 00:00 107 06/28/16 23:30 100 T-Piece 28 06/28/16 23:30 98.4 109 24 150/80 100 06/28/16 22:00 104 06/28/16 21:34 99 T-piece 4.00 28 06/28/16 20:00 98.2 95 24 128/69 98 06/28/16 20:00 95 06/28/16 19:00 100 T-Piece 28 06/28/16 18:00 103 I/O 06/28/16 06/28/16 06/28/16 06/29/16 06/29/16 06/29/16 07:00 15:00 23:00 07:00 15:00 23:00 Intake Total 298 ml 568 ml 477 ml 673 ml Output Total 3000 ml Balance 298 ml -2432 ml 477 ml 673 ml IV Total 35 ml 12 ml Tube Feeding 263 ml 556 ml 477 ml 673 ml Hemodialysis 3000 ml # Voids 1 1 2 Result Diagram: 06/29/16 0940 06/29/16 0940 Objective Remarks GENERAL: WBWN AA male, no distress SKIN: Warm and dry. HEAD: Normocephalic. EYES: No scleral icterus. No injection or drainage. NECK: Supple, trachea midline. No JVD or lymphadenopathy. Has Trach CARDIOVASCULAR: Regular rate and rhythm without murmurs, gallops, or rubs. RESPIRATORY: Breath sounds equal bilaterally. No accessory muscle use. GASTROINTESTINAL: Abdomen soft, non-tender, nondistended. PEG Tube in place MUSCULOSKELETAL: No cyanosis, or edema. BACK: Nontender without obvious deformity. No CVA tenderness. A/P Assessment and Plan RF, s/p Trach ESRD Non-ischemic CMP H/O CVA Coccaine use DM PLAN: Cont trach collar Aerosol nebs cont TF Seraquel 50 mg bid DW Pt's Purvi at BS Master Krause MD Jun 29, 2016 16:29
[2016-06-29] MEDS: LORazepam 2 MG/ML VIAL IV PUSH PRN (22:30)
--- NOTE | 2016-06-29 23:44 | HHI.PR ---
Subjective Remarks patient intubated. Awake, alert. Appears to deny pain. Objective Vital Signs Date Time Temp Pulse Resp B/P Pulse Ox O2 Delivery O2 Flow Rate FiO2 06/29/16 18:02 T-piece 6.00 28 06/29/16 17:00 96 06/29/16 16:00 98.0 101 24 138/73 06/29/16 16:00 96 06/29/16 15:00 89 06/29/16 15:00 96 T-Piece 28 06/29/16 14:00 104 06/29/16 13:00 104 06/29/16 12:00 98.1 104 24 142/76 06/29/16 09:00 112 06/29/16 08:49 99 T-piece 06/29/16 08:00 98.0 114 24 146/96 06/29/16 08:00 114 06/29/16 07:00 95 T-Piece 06/29/16 07:00 116 06/29/16 04:00 111 06/29/16 03:00 98.2 110 20 108/77 100 06/29/16 03:00 100 T-Piece 06/29/16 03:00 113 06/29/16 02:00 103 06/29/16 01:00 106 06/29/16 00:00 107 I/O 06/28/16 06/28/16 06/28/16 06/29/16 06/29/16 06/29/16 06:59 14:59 22:59 06:59 14:59 22:59 Intake Total 298 ml 568 ml 477 ml 673 ml 608 ml Output Total 3000 ml Balance 298 ml -2432 ml 477 ml 673 ml 608 ml IV Total 35 ml 12 ml Tube Feeding 263 ml 556 ml 477 ml 673 ml 488 ml Tube Irrigant 120 ml Hemodialysis 3000 ml # Voids 1 1 2 2 # Bowel Movements 2 Result Diagram: 06/29/1693906/29/16939 Objective Remarks GENERAL: patient sitting up in bed. Appears comfortable. Tracheostomy in place. SKIN: Warm and dry.tracheostomy in place. HEAD: Normocephalic. EYES: No scleral icterus. No injection or drainage. NECK: Supple, trachea midline. No JVD or lymphadenopathy. CARDIOVASCULAR: Regular rate and rhythm without murmurs, gallops, or rubs. RESPIRATORY: Breath sounds equal bilaterally. No accessory muscle use. GASTROINTESTINAL: Abdomen soft, non-tender, nondistended. MUSCULOSKELETAL: No cyanosis, or edema. BACK: Nontender without obvious deformity. No CVA tenderness. A/P Assessment and Plan //Acute encephalopathy, post cardiac arrest. //History of stroke without residual deficit (per friend's report) //History of cocaine abuse //Posttraumatic stress disorder As needed fentanyl for pain management. Neurologically improving -Continue Seroquel 50 mg twice a day -EEG 06/12 -No seizure activity noted. -MRI brain revealed chronic vascular changes. No acute findings -Neuro has followed-Dr. Wilks RESP: //Acute respiratory failure //Healthcare associated pneumonia Intubated in ED 05/28/16 following cardiac arrest Tolerating T piece DuoNeb q6 hours. Albuterol q2 prn. Ventilator Bundle. s/p trach 06/[address] Bearden -Pulmonology following. Appreciate assistance. CV: //Cardiac arrest, secondary to hyperkalemia //Pulmonary edema //Nonischemic cardiomyopathy secondary to HTN, cocaine abuse //Hypertension //Elevated Troponin: ? NSTEMI Monitor HR and BP keep MAP>65mmHg Continue home meds: Hydralazine 25 tid. Clonidine 0.1 tid., Lopressor 25mg Q6 ( 100 mg twice a day at home) ASA 81 mg daily will be continued. Echo 05/31: EF 25-30%, no RWMA. Mild MR/TR. MEGAN 36 mmHg cardiac cath 12/09/2012 - EF 40%, normal coronaries. -Elevated troponin, cardiac arrest. Per cardiology-no intervention planned. GI: //Hepatitis C //Elevated LFT resolving //Free air - likely secondary to EGD/tube feeding insufflation -Daily TF-Nepro@50ml/hr. Monitor LFT's -US liver: Bilateral pleural effusions. Thick-walled gallbladder with minimal pericholecystic fluid. -Minimal ascites. Echogenic atrophic right kidney. Mild nonspecific prominence of the main pancreatic duct. -status post suture by Dr. Zander Tabares. No bleeding actively from PEG site currently -Continue Prevacid for GI prophylaxis -Continue Colace for bowel regimen FEN/RENAL: //ESRD //Acute severe hyperkalemia - resolved //Hypophosphatemia Intermittent hemodialysis per nephrology (Dr. Francisco) Emergent HD 05/28 due to potassium of 6.8 with bradycardia and cardiac arrest. Monitor renal function, I/O's, avoid nephrotoxins. s/p HD today Continue PhosLo 667 mg 3 times a day. -Nephrology following for hemodialysis. Appreciate assistance. ID: //Acute healthcare associated pneumonia. Resolved. Received Zosyn and azithromycin in the emergency department 05/28. s/p Zosyn 2.25 g IV every 8 hours 05/29 - 06/12. Azithro x 10 days.05/28 nasal washing negative for Influenza. -continue to monitor Pertinent cultures 05/28 - blood cultures 2 - 1 out of 2 corynebacterium not Jk 05/29 Sputum- beta strep not A HEME: //-Normocytic Anemia requiring transfusion, previously from acute blood loss from PEG tube -1 unit prbc, 1 FFP, 1 plt. DDAVP given 06/15 -Given 1 unit PRBC 06/16, additional 1 unit PRBC given 06/23 -Coags within normal limits -Received 16 mg DDAVP and 5000 mg amicar -Hemoglobin stable. Continue to monitor. -Dr. Kevin/hematology followed. Von Willebrand antigen factor normal ENDO: //Diabetes mellitus -cont Insulin sliding scale. Glucose stable. Monitor glucose //PROPH: Heparin subcutaneous/ Prevacid 30 mg daily for stress ulcer prophylaxis. Doppler US LE negative for DVT Jim Novoa MD Jun 29, 2016 23:44 Jim Novoa MD Jun 29, 2016 23:44
[2016-06-30] VITALS (11 sets, daily range): BP systolic 165–189; BP diastolic 81–91; PULSE 94–105; RESP 18–22; TEMP 97.4–98; O2SAT 97–100
[2016-06-30] MEDS: HEPARIN SODIUM - SQ 10,000 UNITS/ML VIAL SQ SCH ×2 (01:28→12:19)
[2016-06-30] MEDS: HALOPERIDOL LACTATE 5 MG/ML AMP IM PRN (01:28)
[2016-06-30] MEDS: INSULIN NovoLIN REGULAR SUPPLEMENTAL SCALE SQ SCH ×4 (03:00→21:00)
[2016-06-30] MEDS: CHLORHEXIDINE GLUCONATE 2 % 1 PACK (2 CLOTHS) TOP SCH (04:00)
[2016-06-30] MEDS: METOPROLOL TARTRATE 25 MG TAB PO/NG SCH ×3 (04:45→18:41)
[2016-06-30] MEDS: CHLORHEXIDINE 0.12% (ORAL KIT) 15 ML CUP MT SCH (08:00)
[2016-06-30] MEDS: hydrALAZINE HCL 50 MG TAB PO SCH (09:00)
[2016-06-30] MEDS: QUEtiapine FUMARATE 25 MG TAB PO SCH ×2 (09:00→21:00)
[2016-06-30] MEDS: NEOMYCIN/POLYMYXIN/BACITRACIN OINT 15 GM TUBE TOPICAL SCH ×2 (09:00→21:00)
[2016-06-30] MEDS: SODIUM CHLORIDE 0.9% FLUSH 5 ML FLUSH IV FLUSH SCH ×2 (09:00→21:00)
[2016-06-30] MEDS: DOCUSATE SODIUM 100 MG/10 ML UDC PO SCH ×2 (09:00→21:00)
[2016-06-30] MEDS: cloNIDine HCL 0.1 MG TAB PO SCH ×3 (09:00→18:41)
[2016-06-30] MEDS: LANSOPRAZOLE SOLUTAB 30 MG TAB NG SCH (09:00)
--- NOTE | 2016-06-30 11:58 | HHI.NPPN ---
Subjective General Problems: Anemia Renal Failure: Chronic, End Stage Renal Disease Additional Remarks Patient is awake remain on T-Piece, clinically same, not in distress. Review of Systems General General Remarks unable to evaluate due to mental status Objective Data Data 06/29/16 06/30/16 19:00 07:00 Intake Total 608 ml 750 ml Balance 608 ml 750 ml Intake Oral 0 ml Tube Feeding 488 ml 500 ml Tube Irrigant 120 ml 250 ml # Voids 2 1 # Bowel Movements 2 1 Vital Signs Date Time Temp Pulse Resp B/P Pulse Ox O2 Delivery O2 Flow Rate FiO2 06/30/16 08:12 97 T-piece 28 06/30/16 08:00 T-Piece 6.00 28 06/30/16 08:00 97.4 102 18 180/82 100 06/30/16 03:00 100 T-Piece 28 06/30/16 03:00 97.8 100 22 189/89 100 06/29/16 23:00 98.0 104 20 152/72 100 06/29/16 23:00 100 T-Piece 28 06/29/16 19:00 97.5 99 26 170/2 100 06/29/16 19:00 100 T-Piece 28 06/29/16 18:02 T-piece 6.00 28 06/29/16 17:00 96 06/29/16 16:00 98.0 101 24 138/73 06/29/16 16:00 96 06/29/16 15:00 89 06/29/16 15:00 96 T-Piece 28 06/29/16 14:00 104 06/29/16 13:00 104 06/29/16 12:00 98.1 104 24 142/76 -: 06/29/16 0940 06/29/16 0940 Tubes & Lines Comment trach, PEG Drip Comment Precedex Physical Exam General Appearance: No Acute Distress, Anxious Eyes Eye Exam: Pupils Equal, Pupils Reactive Neck Neck Exam: Neck Supple Pulmonary Resp Exam: Breath Sounds Equal, Crackles, Decreased Bases, Diminished Breath Sounds Cardiology CV Exam: Regular, Normal Sinus Rhythm, Good Perfusion Gastrointestinal/Abdomen GI Exam: Soft, Non-Tender, Bowel Sounds Present, Non-Distended Extremeties Extremities Exam: Trace Edema Neurologic Neuro Exam: Alert Assessment/Plan Discussed Condition With: Patient Assessment Summary: Anemia of CKD, Hypertension, End Stage Renal Disease Electrolyte Assessment: Hypocalcemia Problem List: (1) ESRD on dialysis Plan: Continue dialysis T-Th-Sat, on Epogen for anemia. Weaning from Trach. as tolerated. HD will be today in the afternoon. Continue HD TTS. BP is elevated, will increase Hydralazine. (2) Anemia Plan: Last hemoglobin stable (3) Hypertension Plan: BP stable. He is on metoprolol, hydralazine, clonidine with hold parameters (4) DM (diabetes mellitus) Plan: continue insulin coverage goal to maintain blood glucose between 140 and 180 off D10 , tube feeding was resumed (5) NSTEMI (non-ST elevated myocardial infarction) Plan: Troponin I elevated post cardiac arrest, chest compressions. he had catheterization in January 2016, normal coronary arteries (6) Elevated LFTs Plan: improved. (7) Cocaine abuse Plan: Cessation has been recommended. (8) Encephalopathy Plan: vent management, s/p trach placement. Encephalopathy improving. Problem Qualifiers (1) Anemia: Qualified Code: D64.9 - Anemia, unspecified type (2) Hypertension: Qualified Code: I10 - Essential hypertension (3) DM (diabetes mellitus): Qualified Code: E11.22 - Type 2 diabetes mellitus with diabetic chronic kidney disease, unspecified CKD stage, unspecified group home insulin use status Severo Peck MD Jun 30, 2016 11:58
[2016-06-30] MEDS: hydrALAZINE HCL 100 MG TAB PO SCH ×2 (12:18→18:41)
[2016-06-30] MEDS: LORazepam 2 MG/ML VIAL IV PUSH PRN (12:19)
[2016-06-30] MEDS: EPOETIN ALFA 10,000 UNITS/ML VIAL IV PRN (16:10)
[2016-06-30] MEDS: GELATIN 12 MM/7 MM FOAM TOP PRN (16:11)
--- NOTE | 2016-06-30 18:11 | HHI.PR ---
Subjective Remarks 60 YOAA male with RF, trach, ESRDs/p cardiac arrest On Trach mask Follows simple commands Small amount of trach secretions [place] at [facility] Had HD today. Objective Vital Signs Vital Signs Date Time Temp Pulse Resp B/P Pulse Ox O2 Delivery O2 Flow Rate FiO2 06/30/16 11:24 T-Piece 6.00 28 06/30/16 11:24 97.9 98 18 174/91 98 06/30/16 08:12 97 T-piece 28 06/30/16 08:00 T-Piece 6.00 28 06/30/16 08:00 97.4 102 18 180/82 100 06/30/16 03:00 100 T-Piece 28 06/30/16 03:00 97.8 100 22 189/89 100 06/29/16 23:00 98.0 104 20 152/72 100 06/29/16 23:00 100 T-Piece 28 06/29/16 19:00 97.5 99 26 170/2 100 06/29/16 19:00 100 T-Piece 28 I/O 06/29/16 06/29/16 06/29/16 06/30/16 06/30/16 06/30/16 07:00 15:00 23:00 07:00 15:00 23:00 Intake Total 673 ml 608 ml 750 ml Output Total 3000 ml Balance 673 ml 608 ml 750 ml -3000 ml Intake Oral 0 ml Tube Feeding 673 ml 488 ml 500 ml Tube Irrigant 120 ml 250 ml Hemodialysis 3000 ml # Voids 2 1 # Bowel Movements 2 1 Result Diagram: 06/29/1640 06/29/16 0940 Objective Remarks GENERAL: WBWN AA male, no distress SKIN: Warm and dry. HEAD: Normocephalic. EYES: No scleral icterus. No injection or drainage. NECK: Supple, trachea midline. No JVD or lymphadenopathy. Has Trach CARDIOVASCULAR: Regular rate and rhythm without murmurs, gallops, or rubs. RESPIRATORY: Breath sounds equal bilaterally. No accessory muscle use. GASTROINTESTINAL: Abdomen soft, non-tender, nondistended. PEG Tube in place MUSCULOSKELETAL: No cyanosis, or edema. BACK: Nontender without obvious deformity. No CVA tenderness. A/P Assessment and Plan RF, s/p Trach ESRD Non-ischemic CMP H/O CVA Coccaine use DM PLAN: Cont trach collar Aerosol nebs cont TF Seraquel 50 mg bid DW Pt's [place] at BS Wean 02 Master Krause MD Jun 30, 2016 18:11
--- NOTE | 2016-06-30 23:57 | HHI.PR ---
Subjective Remarks intubated. Awake and alert. Denies pain. Objective Vital Signs Date Time Temp Pulse Resp B/P Pulse Ox O2 Delivery O2 Flow Rate FiO2 06/30/16 23:00 100 06/30/16 22:00 96 06/30/16 21:00 96 06/30/16 20:00 100 T-Piece 28 06/30/16 20:00 98.0 94 18 165/81 100 06/30/16 20:00 96 06/30/16 19:00 104 06/30/16 16:45 T-Piece 6.00 28 06/30/16 16:45 97.8 105 20 170/86 98 06/30/16 11:24 T-Piece 6.00 28 06/30/16 11:24 97.9 98 18 174/91 98 06/30/16 08:12 97 T-piece 28 06/30/16 08:00 T-Piece 6.00 28 06/30/16 08:00 97.4 102 18 180/82 100 06/30/16 03:00 100 T-Piece 28 06/30/16 03:00 97.8 100 22 189/89 100 I/O 06/29/16 06/29/16 06/29/16 06/30/16 06/30/16 06/30/16 07:00 15:00 23:00 07:00 15:00 23:00 Intake Total 673 ml 608 ml 750 ml Output Total 3000 ml Balance 673 ml 608 ml 750 ml -3000 ml Intake Oral 0 ml Tube Feeding 673 ml 488 ml 500 ml Tube Irrigant 120 ml 250 ml Hemodialysis 3000 ml # Voids 2 1 3 # Bowel Movements 2 1 Result Diagram: 06/29/16 0940 06/29/16 0940 Objective Remarks GENERAL: patient sitting up in bed. Appears comfortable. Tracheostomy in place.no changes on exam SKIN: Warm and dry.tracheostomy in place. HEAD: Normocephalic. EYES: No scleral icterus. No injection or drainage. NECK: Supple, trachea midline. No JVD or lymphadenopathy. CARDIOVASCULAR: Regular rate and rhythm without murmurs, gallops, or rubs. RESPIRATORY: Breath sounds equal bilaterally. No accessory muscle use. GASTROINTESTINAL: Abdomen soft, non-tender, nondistended. MUSCULOSKELETAL: No cyanosis, or edema. BACK: Nontender without obvious deformity. No CVA tenderness. A/P Assessment and Plan 06/29 //Acute encephalopathy, post cardiac arrest. //History of stroke without residual deficit (per friend's report) //History of cocaine abuse //Posttraumatic stress disorder As needed fentanyl for pain management. Neurologically improving -Continue Seroquel 50 mg twice a day -EEG 06/12 -No seizure activity noted. -MRI brain revealed chronic vascular changes. No acute findings -Neuro has followed-Dr. Wilks RESP: //Acute respiratory failure //Healthcare associated pneumonia Intubated in ED 05/28/16 following cardiac arrest Tolerating T piece DuoNeb q6 hours. Albuterol q2 prn. Ventilator Bundle. s/p trach 06/[address] Bearden -Pulmonology following. Appreciate assistance. CV: //Cardiac arrest, secondary to hyperkalemia //Pulmonary edema //Nonischemic cardiomyopathy secondary to HTN, cocaine abuse //Hypertension //Elevated Troponin: ? NSTEMI Monitor HR and BP keep MAP>65mmHg Continue home meds: Hydralazine 25 tid. Clonidine 0.1 tid., Lopressor 25mg Q6 ( 100 mg twice a day at home) ASA 81 mg daily will be continued. Echo 05/31: EF 25-30%, no RWMA. Mild MR/TR. MEGAN 36 mmHg cardiac cath 12/09/2012 - EF 40%, normal coronaries. -Nephrology adjusted hydralazine on 06/30. -Elevated troponin, cardiac arrest. Per cardiology-no intervention planned. GI: //Hepatitis C //Elevated LFT resolving //Free air - likely secondary to EGD/tube feeding insufflation -Daily TF-Nepro@50ml/hr. Monitor LFT's -US liver: Bilateral pleural effusions. Thick-walled gallbladder with minimal pericholecystic fluid. -Minimal ascites. Echogenic atrophic right kidney. Mild nonspecific prominence of the main pancreatic duct. -status post suture by Dr. Zander Tabares. No bleeding actively from PEG site currently -Continue Prevacid for GI prophylaxis -Continue Colace for bowel regimen FEN/RENAL: //ESRD //Acute severe hyperkalemia - resolved //Hypophosphatemia Intermittent hemodialysis per nephrology (Dr. Francisco) Emergent HD 05/28 due to potassium of 6.8 with bradycardia and cardiac arrest. Monitor renal function, I/O's, avoid nephrotoxins. s/p HD today Continue PhosLo 667 mg 3 times a day. -Nephrology following for hemodialysis. Appreciate assistance. ID: //Acute healthcare associated pneumonia. Resolved. Received Zosyn and azithromycin in the emergency department 05/28. s/p Zosyn 2.25 g IV every 8 hours 05/29 - 06/12. Azithro x 10 days.05/28 nasal washing negative for Influenza. -continue to monitor Pertinent cultures 05/28 - blood cultures 2 - 1 out of 2 corynebacterium not Jk 05/29 Sputum- beta strep not A HEME: //-Normocytic Anemia requiring transfusion, previously from acute blood loss from PEG tube -1 unit prbc, 1 FFP, 1 plt. DDAVP given 06/15 -Given 1 unit PRBC 06/16, additional 1 unit PRBC given 06/23 -Coags within normal limits -Received 16 mg DDAVP and 5000 mg amicar -Hemoglobin stable. Continue to monitor. -Dr. Kevin/hematology followed. Von Willebrand antigen factor normal ENDO: //Diabetes mellitus -cont Insulin sliding scale. Glucose stable. Monitor glucose //PROPH: Heparin subcutaneous/ Prevacid 30 mg daily for stress ulcer prophylaxis. Doppler US LE negative for DVT Jim Novoa MD Jun 30, 2016 23:57
[2016-07-01] VITALS (16 sets, daily range): BP systolic 148–162; BP diastolic 68–84; PULSE 87–106; RESP 18; TEMP 98.1–98.9; O2SAT 98–100
[2016-07-01] MEDS: METOPROLOL TARTRATE 25 MG TAB PO/NG SCH ×4 (00:21→18:00)
[2016-07-01] MEDS: HEPARIN SODIUM - SQ 10,000 UNITS/ML VIAL SQ SCH ×2 (02:44→12:44)
[2016-07-01] MEDS: INSULIN NovoLIN REGULAR SUPPLEMENTAL SCALE SQ SCH ×4 (02:52→21:00)
[2016-07-01] MEDS: CHLORHEXIDINE GLUCONATE 2 % 1 PACK (2 CLOTHS) TOP SCH (04:00)
[2016-07-01 07:24] LABS: BICARBONATE 32.2 MEQ/L (21.0-32.0)
[2016-07-01 07:26] LABS: AUTOMATED NEUTROPHIL # 4.9 TH/MM3 (1.8-7.7); BASOPHIL # 0.1 TH/MM3 (0-0.2); BASOPHIL % 1.2 % (0.0-2.0); EOSINOPHIL # 0.3 TH/MM3 (0-0.4); EOSINOPHIL % 3.9 % (0.0-4.0); HEMATOCRIT 26.2 % (39.0-51.0); HEMO FLAGS DIFF FINAL; LYMPH % 9.7 % (9.0-44.0); LYMPHOCYTE # 0.6 TH/MM3 (1.0-4.8); MEAN CELL VOLUME 89.6 FL (80.0-100.0); MEAN CORPUSCULAR HEMOGLOBIN 30.2 PG (27.0-34.0); MEAN CORPUSCULAR HGB CONC 33.7 % (32.0-36.0); MONO % 11.3 % (0.0-8.0); NEUT % 73.9 % (16.0-70.0); PLATELET COUNT 234 TH/MM3 (150-450); RED BLOOD COUNT 2.92 MIL/MM3 (4.50-5.90); RED CELL DISTRIBUTION WIDTH 15.6 % (11.6-17.2); WHITE BLOOD COUNT 6.6 TH/MM3 (4.0-11.0)
[2016-07-01] MEDS: CHLORHEXIDINE 0.12% (ORAL KIT) 15 ML CUP MT SCH ×2 (08:00→20:00)
[2016-07-01] MEDS: hydrALAZINE HCL 100 MG TAB PO SCH ×3 (08:47→18:00)
[2016-07-01] MEDS: LANSOPRAZOLE SOLUTAB 30 MG TAB NG SCH (08:47)
[2016-07-01] MEDS: DOCUSATE SODIUM 100 MG/10 ML UDC PO SCH ×2 (08:47→21:14)
[2016-07-01] MEDS: QUEtiapine FUMARATE 25 MG TAB PO SCH ×2 (08:47→21:14)
[2016-07-01] MEDS: cloNIDine HCL 0.1 MG TAB PO SCH ×3 (08:47→18:00)
[2016-07-01] MEDS: SODIUM CHLORIDE 0.9% FLUSH 5 ML FLUSH IV FLUSH SCH ×2 (08:48→21:14)
[2016-07-01] MEDS: NEOMYCIN/POLYMYXIN/BACITRACIN OINT 15 GM TUBE TOPICAL SCH ×2 (08:54→21:00)
--- NOTE | 2016-07-01 10:29 | HHI.NPPN ---
Subjective General Problems: Anemia Renal Failure: Chronic, End Stage Renal Disease Additional Remarks Patient is awake remain on T-Piece, following some of the commands. Review of Systems General General Remarks unable to evaluate due to mental status Objective Data Data 06/30/16 07/01/16 19:00 07:00 Intake Total 592 ml Output Total 3000 ml Balance -3000 ml 592 ml Tube Feeding 472 ml Tube Irrigant 120 ml Hemodialysis 3000 ml # Voids 4 # Bowel Movements 0 Vital Signs Date Time Temp Pulse Resp B/P Pulse Ox O2 Delivery O2 Flow Rate FiO2 07/01/16 08:15 T-Piece 6.00 28 07/01/16 08:15 98.7 98 18 155/69 100 07/01/16 06:00 87 07/01/16 05:00 93 07/01/16 04:00 88 07/01/16 03:00 98.5 92 18 156/77 100 07/01/16 03:00 102 07/01/16 03:00 100 T-Piece 28 07/01/16 02:00 89 07/01/16 01:00 96 07/01/16 00:00 98.1 106 18 162/82 99 07/01/16 00:00 99 T-Piece 28 07/01/16 00:00 106 06/30/16 23:00 100 06/30/16 22:00 96 06/30/16 21:45 99 T-piece 5.00 28 06/30/16 21:00 96 06/30/16 20:00 100 T-Piece 28 06/30/16 20:00 98.0 94 18 165/81 100 06/30/16 20:00 96 06/30/16 19:00 104 06/30/16 16:45 T-Piece 6.00 28 06/30/16 16:45 97.8 105 20 170/86 98 06/30/16 11:24 T-Piece 6.00 28 06/30/16 11:24 97.9 98 18 174/91 98 -: 07/01/16 0558 07/01/16 0558 Tubes & Lines Comment trach, PEG Drip Comment Precedex Physical Exam General Appearance: No Acute Distress, Anxious Eyes Eye Exam: Pupils Equal, Pupils Reactive Neck Neck Exam: Neck Supple Pulmonary Resp Exam: Breath Sounds Equal, Crackles, Decreased Bases, Diminished Breath Sounds Cardiology CV Exam: Regular, Normal Sinus Rhythm, Good Perfusion Gastrointestinal/Abdomen GI Exam: Soft, Non-Tender, Bowel Sounds Present, Non-Distended Extremeties Extremities Exam: Trace Edema Neurologic Neuro Exam: Alert Assessment/Plan Discussed Condition With: Patient Assessment Summary: Anemia of CKD, Hypertension, End Stage Renal Disease Electrolyte Assessment: Hypocalcemia Problem List: (1) ESRD on dialysis Plan: Continue dialysis T-Th-Sat, on Epogen for anemia. Weaning from Trach. as tolerated. Continue HD TTS. BP is elevated, increased Hydralazine yesterday, will follow HD will be in AM. (2) Anemia Plan: Last hemoglobin stable (3) Hypertension Plan: BP stable. He is on metoprolol, hydralazine, clonidine with hold parameters (4) DM (diabetes mellitus) Plan: continue insulin coverage goal to maintain blood glucose between 140 and 180 off D10 , tube feeding was resumed (5) NSTEMI (non-ST elevated myocardial infarction) Plan: Troponin I elevated post cardiac arrest, chest compressions. he had catheterization in January 2016, normal coronary arteries (6) Elevated LFTs Plan: improved. (7) Cocaine abuse Plan: Cessation has been recommended. (8) Encephalopathy Plan: vent management, s/p trach placement. Encephalopathy improving. 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
[2016-07-01] MEDS ORDERED: VITAMIN B CMPLX/VITC/FOLIC AC CAP PO SCH (10:30)
--- NOTE | 2016-07-01 17:52 | HHI.PR ---
Subjective Remarks 60 YOAA male with RF, trach, ESRDs/p cardiac arrest On Trach mask Follows simple commands Small amount of trach secretions No new complaint Objective Vital Signs Vital Signs Date Time Temp Pulse Resp B/P Pulse Ox O2 Delivery O2 Flow Rate FiO2 07/01/16 15:20 T-Piece 6.00 28 07/01/16 15:20 98.9 100 18 159/78 100 07/01/16 11:54 T-Piece 6.00 28 07/01/16 11:54 98.9 98 18 148/84 98 07/01/16 10:39 99 Trach Collar 28 07/01/16 08:15 T-Piece 6.00 28 07/01/16 08:15 98.7 98 18 155/69 100 07/01/16 06:00 87 07/01/16 05:00 93 07/01/16 04:00 88 07/01/16 03:00 98.5 92 18 156/77 100 07/01/16 03:00 102 07/01/16 03:00 100 T-Piece 28 07/01/16 02:00 89 07/01/16 01:00 96 07/01/16 00:00 98.1 106 18 162/82 99 07/01/16 00:00 99 T-Piece 28 07/01/16 00:00 106 06/30/16 23:00 100 06/30/16 22:00 96 06/30/16 21:45 99 T-piece 5.00 28 06/30/16 21:00 96 06/30/16 20:00 100 T-Piece 28 06/30/16 20:00 98.0 94 18 165/81 100 06/30/16 20:00 96 06/30/16 19:00 104 I/O 06/30/16 06/30/16 06/30/16 07/01/16 07/01/16 07/01/16 07:00 15:00 23:00 07:00 15:00 23:00 Intake Total 750 ml 592 ml Output Total 3000 ml Balance 750 ml -3000 ml 592 ml Intake Oral 0 ml Tube Feeding 500 ml 472 ml Tube Irrigant 250 ml 120 ml Hemodialysis 3000 ml # Voids 1 3 1 # Bowel Movements 1 0 Result Diagram: 07/01/16 0558 07/01/16557 Objective Remarks GENERAL: WBWN AA male, no distress SKIN: Warm and dry. HEAD: Normocephalic. EYES: No scleral icterus. No injection or drainage. NECK: Supple, trachea midline. No JVD or lymphadenopathy. Has Trach CARDIOVASCULAR: Regular rate and rhythm without murmurs, gallops, or rubs. RESPIRATORY: Breath sounds equal bilaterally. No accessory muscle use. GASTROINTESTINAL: Abdomen soft, non-tender, nondistended. PEG Tube in place MUSCULOSKELETAL: No cyanosis, or edema. BACK: Nontender without obvious deformity. No CVA tenderness. A/P Assessment and Plan RF, s/p Trach ESRD Non-ischemic CMP H/O CVA Coccaine use DM PLAN: Cont trach collar Aerosol nebs cont TF Seraquel 50 mg bid DW Pt's Fiancee at BS Stable on Trach collar Available prn over weekend. Master Krause MD Jul 01, 2016 17:52
[2016-07-02] VITALS (24 sets, daily range): BP systolic 146–167; BP diastolic 66–89; PULSE 89–107; RESP 18–20; TEMP 97.9–98.6; O2SAT 96–100
[2016-07-02] MEDS: METOPROLOL TARTRATE 25 MG TAB PO/NG SCH ×5 (00:01→23:55)
[2016-07-02] MEDS: HEPARIN SODIUM - SQ 10,000 UNITS/ML VIAL SQ SCH ×2 (02:27→14:00)
[2016-07-02] MEDS: NEOMYCIN/POLYMYXIN/BACITRACIN OINT 15 GM TUBE TOPICAL SCH ×3 (02:28→21:44)
[2016-07-02] MEDS: INSULIN NovoLIN REGULAR SUPPLEMENTAL SCALE SQ SCH ×4 (02:46→21:00)
[2016-07-02] MEDS: CHLORHEXIDINE GLUCONATE 2 % 1 PACK (2 CLOTHS) TOP SCH (02:48)
[2016-07-02] MEDS: LORazepam 2 MG/ML VIAL IV PUSH PRN ×3 (06:48→23:50)
[2016-07-02] MEDS: CHLORHEXIDINE 0.12% (ORAL KIT) 15 ML CUP MT SCH ×2 (08:00→20:00)
[2016-07-02] MEDS: LANSOPRAZOLE SOLUTAB 30 MG TAB NG SCH (09:00)
[2016-07-02] MEDS: QUEtiapine FUMARATE 25 MG TAB PO SCH ×2 (09:00→21:43)
[2016-07-02] MEDS: SODIUM CHLORIDE 0.9% FLUSH 5 ML FLUSH IV FLUSH SCH ×2 (09:00→21:43)
[2016-07-02] MEDS: DOCUSATE SODIUM 100 MG/10 ML UDC PO SCH ×2 (09:00→21:43)
[2016-07-02] MEDS: SODIUM CHLOR 0.9% 1000 ML INJ 1,000 ML IV PRN (09:17)
[2016-07-02] MEDS: GELATIN 12 MM/7 MM FOAM TOP PRN (09:17)
[2016-07-02] MEDS: EPOETIN ALFA 10,000 UNITS/ML VIAL IV PRN (09:17)
--- NOTE | 2016-07-02 10:21 | HHI.NPPN ---
Subjective General Problems: Anemia Renal Failure: Chronic, End Stage Renal Disease Additional Remarks Patient seen on HD, awake, not in distress. Review of Systems General General Remarks unable to evaluate due to mental status Objective Data Data 07/01/16 07/02/16 19:00 07:00 Intake Total 700 ml Balance 700 ml Tube Feeding 600 ml Tube Irrigant 100 ml # Voids 3 2 # Bowel Movements 2 Vital Signs Date Time Temp Pulse Resp B/P Pulse Ox O2 Delivery O2 Flow Rate FiO2 07/02/16 06:00 96 07/02/16 05:00 96 07/02/16 05:00 92 07/02/16 03:39 100 T-Piece 6.00 28 07/02/16 03:38 95 20 157/89 100 07/02/16 03:00 95 07/02/16 02:00 90 07/02/16 01:00 96 07/02/16 00:00 98 07/02/16 00:00 96 T-Piece 6.00 28 07/02/16 00:00 96 18 153/85 96 07/01/16 23:00 102 07/01/16 22:00 96 07/01/16 22:00 98 T-piece 6.00 28 07/01/16 21:00 94 07/01/16 21:00 99 T-Piece 6.00 28 07/01/16 21:00 98.4 92 18 155/68 99 07/01/16 20:00 94 07/01/16 19:00 88 07/01/16 15:20 T-Piece 6.00 28 07/01/16 15:20 98.9 100 18 159/78 100 07/01/16 11:54 T-Piece 6.00 28 07/01/16 11:54 98.9 98 18 148/84 98 07/01/16 10:39 99 Trach Collar 28 -: 07/01/16 0558 07/01/16 0558 Tubes & Lines Comment trach, PEG Drip Comment Precedex Physical Exam General Appearance: No Acute Distress, Anxious Eyes Eye Exam: Pupils Equal, Pupils Reactive Neck Neck Exam: Neck Supple Pulmonary Resp Exam: Breath Sounds Equal, Crackles, Decreased Bases, Diminished Breath Sounds Cardiology CV Exam: Regular, Normal Sinus Rhythm, Good Perfusion Gastrointestinal/Abdomen GI Exam: Soft, Non-Tender, Bowel Sounds Present, Non-Distended Extremeties Extremities Exam: Trace Edema Neurologic Neuro Exam: Alert Assessment/Plan Discussed Condition With: Patient Assessment Summary: Anemia of CKD, Hypertension, End Stage Renal Disease Electrolyte Assessment: Hypocalcemia Problem List: (1) ESRD on dialysis Plan: Continue dialysis T-Th-Sat, on Epogen for anemia. Weaning from Trach. as tolerated. Continue HD TTS. BP is better. HD now, tolerating well. (2) Anemia Plan: Last hemoglobin stable (3) Hypertension Plan: BP stable. He is on metoprolol, hydralazine, clonidine with hold parameters (4) DM (diabetes mellitus) Plan: continue insulin coverage goal to maintain blood glucose between 140 and 180 off D10 , tube feeding was resumed (5) NSTEMI (non-ST elevated myocardial infarction) Plan: Troponin I elevated post cardiac arrest, chest compressions. he had catheterization in January 2016, normal coronary arteries (6) Elevated LFTs Plan: improved. (7) Cocaine abuse Plan: Cessation has been recommended. (8) Encephalopathy Plan: vent management, s/p trach placement. Encephalopathy improving. 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
[2016-07-02] MEDS: cloNIDine HCL 0.1 MG TAB PO SCH ×2 (12:43→17:50)
[2016-07-02] MEDS: hydrALAZINE HCL 100 MG TAB PO SCH ×2 (12:43→17:50)
[2016-07-03] VITALS (27 sets, daily range): BP systolic 139–165; BP diastolic 72–86; PULSE 71–109; RESP 18–20; TEMP 97.6–98.5; O2SAT 94–100
[2016-07-03] MEDS: HEPARIN SODIUM - SQ 10,000 UNITS/ML VIAL SQ SCH ×2 (02:09→17:51)
[2016-07-03] MEDS: INSULIN NovoLIN REGULAR SUPPLEMENTAL SCALE SQ SCH ×4 (02:10→21:00)
[2016-07-03] MEDS: CHLORHEXIDINE GLUCONATE 2 % 1 PACK (2 CLOTHS) TOP SCH (02:11)
[2016-07-03] MEDS: METOPROLOL TARTRATE 25 MG TAB PO/NG SCH ×3 (05:41→17:51)
[2016-07-03] MEDS: CHLORHEXIDINE 0.12% (ORAL KIT) 15 ML CUP MT SCH ×2 (08:00→20:00)
[2016-07-03] MEDS: NEOMYCIN/POLYMYXIN/BACITRACIN OINT 15 GM TUBE TOPICAL SCH ×2 (09:00→21:00)
[2016-07-03] MEDS: LANSOPRAZOLE SOLUTAB 30 MG TAB NG SCH (09:22)
[2016-07-03] MEDS: DOCUSATE SODIUM 100 MG/10 ML UDC PO SCH ×2 (09:22→21:51)
[2016-07-03] MEDS: cloNIDine HCL 0.1 MG TAB PO SCH ×3 (09:22→17:50)
[2016-07-03] MEDS: hydrALAZINE HCL 100 MG TAB PO SCH ×3 (09:22→17:50)
[2016-07-03] MEDS: SODIUM CHLORIDE 0.9% FLUSH 5 ML FLUSH IV FLUSH SCH ×2 (09:23→21:00)
[2016-07-03] MEDS: QUEtiapine FUMARATE 25 MG TAB PO SCH ×2 (09:27→21:51)
--- NOTE | 2016-07-03 18:34 | HHI.PR ---
Subjective Remarks Date of service 07/02/16. Patient seen the morning of 07/02/16. No acute changes. Denies any pain. Objective Vital Signs Date Time Temp Pulse Resp B/P Pulse Ox O2 Delivery O2 Flow Rate FiO2 07/03/16 18:14 79 07/03/16 17:00 100 Trach Collar 6.00 28 T-Piece 07/03/16 17:00 84 07/03/16 16:00 105 07/03/16 15:00 91 07/03/16 15:00 98.5 85 20 165/85 94 07/03/16 14:00 79 07/03/16 13:00 90 07/03/16 12:00 90 07/03/16 11:00 101 07/03/16 11:00 98.3 71 18 161/72 94 07/03/16 11:00 100 Trach Collar 6.00 28 T-Piece 07/03/16 10:00 88 07/03/16 10:00 77 07/03/16 09:43 97 T-piece 5.00 28 07/03/16 09:00 92 07/03/16 08:00 97.6 94 20 151/86 94 07/03/16 08:00 93 07/03/16 08:00 Trach Collar 6.00 28 T-Piece 07/03/16 07:00 109 07/03/16 06:00 90 07/03/16 05:00 90 07/03/16 04:00 96 07/03/16 03:13 100 T-Piece 6.00 28 07/03/16 03:13 103 20 139/78 100 07/03/16 03:00 88 07/03/16 02:00 96 07/03/16 01:00 106 07/03/16 00:09 98 20 159/82 100 07/03/16 00:09 100 T-Piece 6.00 28 07/03/16 00:00 96 07/02/16 23:00 94 07/02/16 22:00 102 07/02/16 21:00 92 07/02/16 20:05 97.9 93 20 146/66 100 07/02/16 20:05 100 T-Piece 6.00 28 07/02/16 20:00 90 07/02/16 19:00 97 I/O 2/11/17 2/04/0707/02/16 07/03/16 07/03/16 07/03/16 07:00 15:00 23:00 07:00 15:00 23:00 Intake Total 700 ml 1230 ml 700 ml 600 ml Output Total 3000 ml 20 ml Balance 700 ml -3000 ml 1230 ml 700 ml 580 ml Intake Oral 0 ml Tube Feeding 600 ml 600 ml TPN/PPN 1230 ml Tube Irrigant 100 ml 100 ml 600 ml Output Urine Total 20 ml Stool Total 0 ml Hemodialysis 3000 ml # Voids 2 1 1 # Bowel Movements 2 4 0 Result Diagram: 07/01/1655707/01/16557 Objective Remarks GENERAL: patient sitting up in bed. Appears comfortable. Tracheostomy in place.again with no changes on exam. SKIN: Warm and dry.tracheostomy in place. HEAD: Normocephalic. EYES: No scleral icterus. No injection or drainage. NECK: Supple, trachea midline. No JVD. CARDIOVASCULAR: Regular rate and rhythm without murmurs, gallops, or rubs. RESPIRATORY: Breath sounds equal bilaterally. No accessory muscle use. GASTROINTESTINAL: Abdomen soft, non-tender, nondistended. MUSCULOSKELETAL: No cyanosis, or edema. BACK: Nontender without obvious deformity. No CVA tenderness. A/P Assessment and Plan //Acute encephalopathy, post cardiac arrest. //History of stroke without residual deficit (per friend's report) //History of cocaine abuse //Posttraumatic stress disorder As needed fentanyl for pain management. Neurologically improving -Continue Seroquel 50 mg twice a day -EEG 06/12 -No seizure activity noted. -MRI brain revealed chronic vascular changes. No acute findings -Neuro has followed-Dr. Wilks RESP: //Acute respiratory failure //Healthcare associated pneumonia Intubated in ED 05/28/16 following cardiac arrest Tolerating T piece DuoNeb q6 hours. Albuterol q2 prn. Ventilator Bundle. s/p trach 06/[address] Bearden -Pulmonology following. Appreciate assistance. CV: //Cardiac arrest, secondary to hyperkalemia //Pulmonary edema //Nonischemic cardiomyopathy secondary to HTN, cocaine abuse //Hypertension //Elevated Troponin: ? NSTEMI Monitor HR and BP keep MAP>65mmHg Continue home meds: Hydralazine 25 tid. Clonidine 0.1 tid., Lopressor 25mg Q6 ( 100 mg twice a day at home) ASA 81 mg daily will be continued. Echo 05/31: EF 25-30%, no RWMA. Mild MR/TR. MEGAN 36 mmHg cardiac cath 12/09/2012 - EF 40%, normal coronaries. -Nephrology adjusted hydralazine on 06/30. -Elevated troponin, cardiac arrest. Per cardiology-no intervention planned. GI: //Hepatitis C //Elevated LFT resolving //Free air - likely secondary to EGD/tube feeding insufflation -Daily TF-Nepro@50ml/hr. Monitor LFT's -US liver: Bilateral pleural effusions. Thick-walled gallbladder with minimal pericholecystic fluid. -Minimal ascites. Echogenic atrophic right kidney. Mild nonspecific prominence of the main pancreatic duct. -status post suture by Dr. Zander Tabares. No bleeding actively from PEG site currently -Continue Prevacid for GI prophylaxis -Continue Colace for bowel regimen FEN/RENAL: //ESRD //Acute severe hyperkalemia - resolved //Hypophosphatemia Intermittent hemodialysis per nephrology (Dr. Francisco) Emergent HD 05/28 due to potassium of 6.8 with bradycardia and cardiac arrest. Monitor renal function, I/O's, avoid nephrotoxins. s/p HD today Continue PhosLo 667 mg 3 times a day. -Nephrology following for hemodialysis. Appreciate assistance. ID: //Acute healthcare associated pneumonia. Resolved. Received Zosyn and azithromycin in the emergency department 05/28. s/p Zosyn 2.25 g IV every 8 hours 05/29 - 06/12. Azithro x 10 days.05/28 nasal washing negative for Influenza. -continue to monitor Pertinent cultures 05/28 - blood cultures 2 - 1 out of 2 corynebacterium not Jk 05/29 Sputum- beta strep not A HEME: //-Normocytic Anemia requiring transfusion, previously from acute blood loss from PEG tube -1 unit prbc, 1 FFP, 1 plt. DDAVP given 06/15 -Given 1 unit PRBC 06/16, additional 1 unit PRBC given 06/23 -Coags within normal limits -Received 16 mg DDAVP and 5000 mg amicar -Hemoglobin stable. Continue to monitor. -Dr. Kevin/hematology followed. Von Willebrand antigen factor normal ENDO: //Diabetes mellitus -cont Insulin sliding scale. Glucose stable. Monitor glucose //PROPH: Heparin subcutaneous/ Prevacid 30 mg daily for stress ulcer prophylaxis. Doppler US LE negative for DVT Jim Novoa MD Jul 03, 2016 18:34
--- NOTE | 2016-07-03 18:39 | HHI.PR ---
Subjective Remarks Date of service today 07/03/16. No acute changes. Patient continues on trach collar. Appears to deny pain as before. Following commands. Objective Vital Signs Date Time Temp Pulse Resp B/P Pulse Ox O2 Delivery O2 Flow Rate FiO2 07/03/16 18:14 79 07/03/16 17:00 100 Trach Collar 6.00 28 T-Piece 07/03/16 17:00 84 07/03/16 16:00 105 07/03/16 15:00 91 07/03/16 15:00 98.5 85 20 165/85 94 07/03/16 14:00 79 07/03/16 13:00 90 07/03/16 12:00 90 07/03/16 11:00 101 07/03/16 11:00 98.3 71 18 161/72 94 07/03/16 11:00 100 Trach Collar 6.00 28 T-Piece 07/03/16 10:00 88 07/03/16 10:00 77 07/03/16 09:43 97 T-piece 5.00 28 07/03/16 09:00 92 07/03/16 08:00 97.6 94 20 151/86 94 07/03/16 08:00 93 07/03/16 08:00 Trach Collar 6.00 28 T-Piece 07/03/16 07:00 109 07/03/16 06:00 90 07/03/16 05:00 90 07/03/16 04:00 96 07/03/16 03:13 100 T-Piece 6.00 28 07/03/16 03:13 103 20 139/78 100 07/03/16 03:00 88 07/03/16 02:00 96 07/03/16 01:00 106 07/03/16 00:09 98 20 159/82 100 07/03/16 00:09 100 T-Piece 6.00 28 07/03/16 00:00 96 07/02/16 23:00 94 07/02/16 22:00 102 07/02/16 21:00 92 07/02/16 20:05 97.9 93 20 146/66 100 07/02/16 20:05 100 T-Piece 6.00 28 07/02/16 20:00 90 07/02/16 19:00 97 I/O 2/11/17 07/02/16 07/02/16 07/03/16 07/03/16 07/03/16 07:00 15:00 23:00 07:00 15:00 23:00 Intake Total 700 ml 1230 ml 700 ml 600 ml Output Total 3000 ml 20 ml Balance 700 ml -3000 ml 1230 ml 700 ml 580 ml Intake Oral 0 ml Tube Feeding 600 ml 600 ml TPN/PPN 1230 ml Tube Irrigant 100 ml 100 ml 600 ml Output Urine Total 20 ml Stool Total 0 ml Hemodialysis 3000 ml # Voids 2 1 1 # Bowel Movements 2 4 0 Result Diagram: 07/01/1655707/01/16557 Objective Remarks GENERAL: patient sitting up in bed. Appears comfortable. Tracheostomy collar in place. .no changes on exam SKIN: Warm and dry.tracheostomy in place. HEAD: Normocephalic. EYES: No scleral icterus. No injection or drainage. NECK: Supple, trachea midline. No JVD. CARDIOVASCULAR: Regular rate and rhythm without murmurs, gallops, or rubs. RESPIRATORY: Breath sounds equal bilaterally. No accessory muscle use. GASTROINTESTINAL: Abdomen soft, non-tender, nondistended. MUSCULOSKELETAL: No cyanosis, or edema. BACK: Nontender without obvious deformity. No CVA tenderness. A/P Assessment and Plan //Acute encephalopathy, post cardiac arrest. //History of stroke without residual deficit (per friend's report) //History of cocaine abuse //Posttraumatic stress disorder As needed fentanyl for pain management. Neurologically improving -Continue Seroquel 50 mg twice a day -EEG 06/12 -No seizure activity noted. -MRI brain revealed chronic vascular changes. No acute findings -Neuro has followed-Dr. Wilks RESP: //Acute respiratory failure //Healthcare associated pneumonia Intubated in ED 05/28/16 following cardiac arrest Tolerating T piece DuoNeb q6 hours. Albuterol q2 prn. Ventilator Bundle. s/p trach 06/[address] Bearden -Pulmonology following. Appreciate assistance. CV: //Cardiac arrest, secondary to hyperkalemia //Pulmonary edema //Nonischemic cardiomyopathy secondary to HTN, cocaine abuse //Hypertension //Elevated Troponin: ? NSTEMI Monitor HR and BP keep MAP>65mmHg Continue home meds: Hydralazine 25 tid. Clonidine 0.1 tid., Lopressor 25mg Q6 ( 100 mg twice a day at home) ASA 81 mg daily will be continued. Echo 05/31: EF 25-30%, no RWMA. Mild MR/TR. MEGAN 36 mmHg cardiac cath 12/09/2012 - EF 40%, normal coronaries. -Nephrology adjusted hydralazine on 06/30. -Elevated troponin, cardiac arrest. Per cardiology-no intervention planned. GI: //Hepatitis C //Elevated LFT resolving //Free air - likely secondary to EGD/tube feeding insufflation -Daily TF-Nepro@50ml/hr. Monitor LFT's -US liver: Bilateral pleural effusions. Thick-walled gallbladder with minimal pericholecystic fluid. -Minimal ascites. Echogenic atrophic right kidney. Mild nonspecific prominence of the main pancreatic duct. -status post suture by Dr. Zander Tabares. No bleeding actively from PEG site currently -Continue Prevacid for GI prophylaxis -Continue Colace for bowel regimen FEN/RENAL: //ESRD //Acute severe hyperkalemia - resolved //Hypophosphatemia Intermittent hemodialysis per nephrology (Dr. Francisco) Emergent HD 05/28 due to potassium of 6.8 with bradycardia and cardiac arrest. Monitor renal function, I/O's, avoid nephrotoxins. s/p HD today Continue PhosLo 667 mg 3 times a day. -Nephrology following for hemodialysis. Appreciate assistance. ID: //Acute healthcare associated pneumonia. Resolved. Received Zosyn and azithromycin in the emergency department 05/28. s/p Zosyn 2.25 g IV every 8 hours 05/29 - 06/12. Azithro x 10 days.05/28 nasal washing negative for Influenza. -continue to monitor Pertinent cultures 05/28 - blood cultures 2 - 1 out of 2 corynebacterium not Jk 05/29 Sputum- beta strep not A HEME: //-Normocytic Anemia requiring transfusion, previously from acute blood loss from PEG tube -1 unit prbc, 1 FFP, 1 plt. DDAVP given 06/15 -Given 1 unit PRBC 06/16, additional 1 unit PRBC given 06/23 -Coags within normal limits -Received 16 mg DDAVP and 5000 mg amicar -Hemoglobin stable. Continue to monitor. -Dr. Kevin/hematology followed. Von Willebrand antigen factor normal ENDO: //Diabetes mellitus -cont Insulin sliding scale. Glucose stable. Monitor glucose //PROPH: Heparin subcutaneous/ Prevacid 30 mg daily for stress ulcer prophylaxis. Doppler US LE negative for DVT Acute encephalopathy, post cardiac arrest. History of stroke without residual deficit (per friend's report) History of cocaine abuse Posttraumatic stress disorder As needed fentanyl for pain management. Neurologically improving Precedex currently at 0.5 mcg/kg per hour - we'll stop today and start Haldol when necessary for agitation Continue Seroquel but increased to 50 mg twice a day EEG 06/12 revealed mild sleep. No seizure activity noted. MRI brain revealed chronic vascular changes. No acute findings Neuro has followed-Dr. Wilks RESP: Acute respiratory failure Healthcare associated pneumonia Intubated in ED 05/28/16 following cardiac arrest Tolerating T piece DuoNeb q6 hours. Albuterol q2 prn. Ventilator Bundle. s/p trach 06/[address] Bearden CV: Cardiac arrest, secondary to hyperkalemia Pulmonary edema Nonischemic cardiomyopathy secondary to HTN, cocaine abuse Hypertension Elevated Troponin: ? NSTEMI Monitor HR and BP keep MAP>65mmHg Continue home meds: Hydralazine 25 tid. Clonidine 0.1 tid., Lopressor 25mg Q6 ( 100 mg twice a day at home) ASA 81 mg daily will be continued. Echo 05/31: EF 25-30%, no RWMA. Mild MR/TR. MEGAN 36 mmHg cardiac cath 12/09/2012 - EF 40%, normal coronaries. Elevated troponin, cardiac arrest. Per cardiology-no intervention planned. Had hemodialysis 2/4 -3 L GI: Hepatitis C Elevated LFT resolving Free air - likely secondary to EGD/tube feeding insufflation Daily TF-Nepro@50ml/hr. Monitor LFT's US liver: Bilateral pleural effusions. Thick-walled gallbladder with minimal pericholecystic fluid. Minimal ascites. Echogenic atrophic right kidney. Mild nonspecific prominence of the main pancreatic duct. status post suture by Dr. Zander Tabares. No bleeding actively from PEG site currently Prevacid for GI prophylaxis Colace for bowel regimen FEN/RENAL: ESRD Acute severe hyperkalemia - resolved Hypophosphatemia Intermittent hemodialysis per nephrology (Dr. Francisco) Emergent HD 05/28 due to potassium of 6.8 with bradycardia and cardiac arrest. Monitor renal function, I/O's, avoid nephrotoxins. s/p HD today Continue PhosLo 667 mg 3 times a day. ID: Acute healthcare associated pneumonia Received Zosyn and azithromycin in the emergency department 05/28. s/p Zosyn 2.25 g IV every 8 hours 05/29 - 06/12. Azithro x 10 days.05/28 nasal washing negative for Influenza. continue to monitor Pertinent cultures 05/28 - blood cultures 2 - 1 out of 2 corynebacterium not Jk 05/29 Sputum- beta strep not A HEME: Normocytic Anemia requiring transfusion, previously from acute blood loss from PEG tube 1 unit prbc, 1 FFP, 1 plt. DDAVP given 06/15 Given 1 unit PRBC 06/16, additional 1 unit PRBC given / Coags within normal limits Received 16 mg DDAVP and 5000 mg amicar Monitor CBC. Dr. Kevin/hematology followed. Von Willebrand antigen factor normal ENDO: Diabetes mellitus Medium dose Insulin sliding scale with bedside glucose every 6 hours PROPH: Heparin subcutaneous/ Prevacid 30 mg daily for stress ulcer prophylaxis. Doppler US LE negative for DVT Jim Novoa MD Jul 03, 2016 18:39
--- NOTE | 2016-07-03 19:03 | HHI.NPPN ---
Subjective General Problems: Anemia Renal Failure: Chronic, End Stage Renal Disease Additional Remarks Patient is sleepy but arousable, not in distress. Review of Systems General General Remarks unable to evaluate due to mental status Objective Data Data 07/02/16 07/03/16 19:00 07:00 Intake Total 1230 ml 700 ml Output Total 3000 ml Balance -1770 ml 700 ml Tube Feeding 600 ml TPN/PPN 1230 ml Tube Irrigant 100 ml Hemodialysis 3000 ml # Voids 1 1 # Bowel Movements 4 0 Vital Signs Date Time Temp Pulse Resp B/P Pulse Ox O2 Delivery O2 Flow Rate FiO2 07/03/16 18:14 79 07/03/16 17:00 100 Trach Collar 6.00 28 T-Piece 07/03/16 17:00 84 07/03/16 16:00 105 07/03/16 15:00 91 07/03/16 15:00 98.5 85 20 165/85 94 07/03/16 14:00 79 07/03/16 13:00 90 07/03/16 12:00 90 07/03/16 11:00 101 07/03/16 11:00 98.3 71 18 161/72 94 07/03/16 11:00 100 Trach Collar 6.00 28 T-Piece 07/03/16 10:00 88 07/03/16 10:00 77 07/03/16 09:43 97 T-piece 5.00 28 07/03/16 09:00 92 07/03/16 08:00 97.6 94 20 151/86 94 07/03/16 08:00 93 07/03/16 08:00 Trach Collar 6.00 28 T-Piece 07/03/16 07:00 109 07/03/16 06:00 90 07/03/16 05:00 90 07/03/16 04:00 96 07/03/16 03:13 100 T-Piece 6.00 28 07/03/16 03:13 103 20 139/78 100 07/03/16 03:00 88 07/03/16 02:00 96 07/03/16 01:00 106 07/03/16 00:09 98 20 159/82 100 07/03/16 00:09 100 T-Piece 6.00 28 07/03/16 00:00 96 07/02/16 23:00 94 07/02/16 22:00 102 07/02/16 21:00 92 07/02/16 20:05 97.9 93 20 146/66 100 07/02/16 20:05 100 T-Piece 6.00 28 07/02/16 20:00 90 -: 07/01/16 0558 07/01/16 0558 Tubes & Lines Comment trach, PEG Drip Comment Precedex Physical Exam General Appearance: No Acute Distress, Anxious Eyes Eye Exam: Pupils Equal, Pupils Reactive Neck Neck Exam: Neck Supple Pulmonary Resp Exam: Breath Sounds Equal, Crackles, Decreased Bases, Diminished Breath Sounds Cardiology CV Exam: Regular, Normal Sinus Rhythm, Good Perfusion Gastrointestinal/Abdomen GI Exam: Soft, Non-Tender, Bowel Sounds Present, Non-Distended Extremeties Extremities Exam: Trace Edema Neurologic Neuro Exam: Alert Assessment/Plan Discussed Condition With: Patient Assessment Summary: Anemia of CKD, Hypertension, End Stage Renal Disease Electrolyte Assessment: Hypocalcemia Problem List: (1) ESRD on dialysis Plan: Continue dialysis T-Th-Sat, on Epogen for anemia. Weaning from Trach. as tolerated. Continue HD TTS. BP is better. Awaiting placement. (2) Anemia Plan: Last hemoglobin stable (3) Hypertension Plan: BP stable. He is on metoprolol, hydralazine, clonidine with hold parameters (4) DM (diabetes mellitus) Plan: continue insulin coverage goal to maintain blood glucose between 140 and 180 off D10 , tube feeding was resumed (5) NSTEMI (non-ST elevated myocardial infarction) Plan: Troponin I elevated post cardiac arrest, chest compressions. he had catheterization in January 2016, normal coronary arteries (6) Elevated LFTs Plan: improved. (7) Cocaine abuse Plan: Cessation has been recommended. (8) Encephalopathy Plan: vent management, s/p trach placement. Encephalopathy improving. Problem Qualifiers (1) Anemia: Qualified Code: D64.9 - Anemia, unspecified type (2) Hypertension: Qualified Code: I10 - Essential hypertension (3) DM (diabetes mellitus): Qualified Code: E11.22 - Type 2 diabetes mellitus with diabetic chronic kidney disease, unspecified CKD stage, unspecified custodial insulin use status Severo Peck MD Jul 03, 2016 19:03
[2016-07-04] VITALS (16 sets, daily range): BP systolic 134–173; BP diastolic 64–94; PULSE 74–97; RESP 18–20; TEMP 96.7–98.5; O2SAT 98–100
[2016-07-04] MEDS: METOPROLOL TARTRATE 25 MG TAB PO/NG SCH ×4 (01:04→17:49)
[2016-07-04] MEDS: HEPARIN SODIUM - SQ 10,000 UNITS/ML VIAL SQ SCH ×2 (01:09→14:00)
[2016-07-04] MEDS: INSULIN NovoLIN REGULAR SUPPLEMENTAL SCALE SQ SCH ×4 (03:00→20:35)
[2016-07-04] MEDS: CHLORHEXIDINE GLUCONATE 2 % 1 PACK (2 CLOTHS) TOP SCH (03:33)
[2016-07-04] MEDS: cloNIDine HCL 0.1 MG TAB PO PRN (04:19)
[2016-07-04] MEDS: CHLORHEXIDINE 0.12% (ORAL KIT) 15 ML CUP MT SCH ×2 (08:00→20:00)
--- NOTE | 2016-07-04 09:35 | HHI.PR ---
Subjective Remarks Follow-up cardiac arrest/encephalopathy/end-stage renal disease on HD/ hyperkalemia 07/04/16-patient seen and examined, follows commands alert no acute event overnight. BP slightly up and afebrile Objective Vitals Vital Signs Date Time Temp Pulse Resp B/P Pulse Ox O2 Delivery O2 Flow Rate FiO2 07/04/16 08:00 98.3 97 20 161/94 100 07/04/16 07:00 81 07/04/16 06:00 86 07/04/16 05:00 80 07/04/16 04:35 98.5 84 173/80 99 07/04/16 04:35 100 Trach Collar 6.00 28 T-Piece 07/04/16 04:00 86 07/04/16 03:00 76 07/04/16 02:00 82 07/04/16 01:55 98.5 84 161/67 99 07/04/16 01:55 Trach Collar 6.00 28 T-Piece 07/04/16 01:00 84 07/04/16 00:00 88 07/03/16 23:00 85 07/03/16 22:00 90 07/03/16 21:00 80 07/03/16 20:00 96 07/03/16 19:00 Trach Collar 6.00 28 T-Piece 07/03/16 19:00 98.1 91 153/83 100 07/03/16 19:00 88 07/03/16 18:14 79 07/03/16 17:00 100 Trach Collar 6.00 28 T-Piece 07/03/16 17:00 84 07/03/16 16:00 105 07/03/16 15:00 91 07/03/16 15:00 98.5 85 20 165/85 94 07/03/16 14:00 79 07/03/16 13:00 90 07/03/16 12:00 90 07/03/16 11:00 101 07/03/16 11:00 98.3 71 18 161/72 94 07/03/16 11:00 100 Trach Collar 6.00 28 T-Piece 07/03/16 10:00 88 07/03/16 10:00 77 07/03/16 09:43 97 T-piece 5.00 28 I/O 07/03/16 07/03/16 07/03/16 07/04/16 07/04/16 2/13/17 07:00 15:00 23:00 07:00 15:00 23:00 Intake Total 700 ml 600 ml 240 ml Output Total 20 ml Balance 700 ml 580 ml 240 ml Intake Oral 0 ml 240 ml Tube Feeding 600 ml Tube Irrigant 100 ml 600 ml Output Urine Total 20 ml Stool Total 0 ml # Voids 1 2 # Bowel Movements 0 Result Diagram: 07/01/16 0558 07/01/16 0558 Imaging Last Impressions Chest X-Ray 06/23/16 0600 Signed Impressions: Service Date/Time: June 03:02 - CONCLUSION: No significant change. Minh Aponte MD Abdomen X-Ray 06/16/16 0000 Signed Impressions: Service Date/Time: May 09:12 - CONCLUSION: Apparent appropriate placement of gastric tube placement. Amaris Rosenberg MD Abdomen/Pelvis CT 06/15/16 0000 Signed Impressions: Service Date/Time: Wednesday, June 15, 2016 13:16 - CONCLUSION: Significant free intraperitoneal air. Consolidative changes in both bases with small bilateral pleural effusions. Mikhail Abrams MD FACR Brain MRI 06/10/16 0000 Signed Impressions: Service Date/Time: Friday, June 10, 2016 20:14 - CONCLUSION: 1. Mild chronic-appearing ischemic changes in the periventricular white matter slightly progressed from 2014. No recent infarct, mass effect or midline shift. No hydrocephalus. Lakhwinder Pringle MD Liver Ultrasound 06/01/16 0000 Signed Impressions: Service Date/Time: Wednesday, June 01, 2016 15:38 - CONCLUSION: 1. Bilateral pleural effusions. 2. Thick-walled gallbladder with minimal pericholecystic fluid. If there is clinical concern for acute cholecystitis a hepatobiliary scan may be helpful to confirm cystic duct obstruction. 3. Minimal ascites. 4. Echogenic atrophic right kidney. 5. Mild nonspecific prominence of the main pancreatic duct. Enzo Price MD Head CT 05/29/16 0000 Signed Impressions: Service Date/Time: Sunday, May 29, 2016 03:03 - CONCLUSION: Age- appropriate atrophy, stable from prior in September 2015. No acute findings. Earnest Torre MD Lower Extremity Ultrasound 05/28/16 0000 Signed Impressions: Service Date/Time: Saturday, May 28, 2016 22:27 - CONCLUSION: Negative for deep venous thrombosis bilateral lower extremity. Earnest Torre MD Objective Remarks GENERAL: NAD and currently in a position restrains to upper extremities SKIN: Warm and dry. HEAD: Normocephalic. EYES: No scleral icterus. No injection or drainage. NECK: Supple, trachea midline. No JVD or lymphadenopathy. CARDIOVASCULAR: Regular rate and rhythm with II/ YEYO RESPIRATORY: Breath sounds equal bilaterally. No accessory muscle use. GASTROINTESTINAL: Abdomen soft, non-tender, nondistended. PEG tube in place MUSCULOSKELETAL: No cyanosis, or edema. BACK: Nontender without obvious deformity. No CVA tenderness. A/P Problem List: (1) Encephalopathy, metabolic ICD Code: G93.41 Status: Acute (2) HCAP (healthcare-associated pneumonia) ICD Code: J18.9 Status: Acute (3) Hyperkalemia, diminished renal excretion ICD Code: E87.5 Status: Acute (4) Hypertension ICD Code: I10 Status: Chronic (5) Hepatitis C ICD Code: B19.20 Status: Acute (6) ESRD on hemodialysis ICD Code: N18.6 Status: Chronic (7) DM (diabetes mellitus) ICD Code: E11.9 Status: Chronic (8) Bleeding from gastrostomy tube site ICD Code: K94.21 Status: Acute Assessment and Plan 60-year-old male with Acute encephalopathy, post cardiac arrest. History of stroke without residual deficit (per friend's report) History of cocaine abuse Posttraumatic stress disorder As needed fentanyl for pain management. s/p Precedex and now on Haldol when necessary for agitation Continue Seroquel 50 mg twice a day EEG 06/12 revealed mild sleep. No seizure activity noted. MRI brain revealed chronic vascular changes. No acute findings Neuro has followed-Dr. Wilks Acute respiratory failure Healthcare associated pneumonia Intubated in ED 05/28/16 following cardiac arrest Tolerating T piece DuoNeb q6 hours. Albuterol q2 prn. Ventilator Bundle. s/p trach 06/[address] Bearden Cardiac arrest, secondary to hyperkalemia Pulmonary edema Nonischemic cardiomyopathy secondary to HTN, cocaine abuse Hypertension Elevated Troponin: ? NSTEMI Continue home meds: Hydralazine 25 tid. Clonidine 0.1 tid., Lopressor 25mg Q6 ( 100 mg twice a day at home) ASA 81 mg daily Echo 05/31: EF 25-30%, no RWMA. Mild MR/TR. MEGAN 36 mmHg cardiac cath 12/09/2012 - EF 40%, normal coronaries. Elevated troponin, cardiac arrest. Per cardiology-no intervention planned. Hepatitis C Elevated LFT resolving Free air - likely secondary to EGD/tube feeding insufflation Daily TF-Nepro@50ml/hr. Monitor LFT's US liver: Bilateral pleural effusions. Thick-walled gallbladder with minimal pericholecystic fluid. Minimal ascites. Echogenic atrophic right kidney. Mild nonspecific prominence of the main pancreatic duct. status post suture by Dr. Zander Tabares. No bleeding actively from PEG site currently Prevacid for GI prophylaxis Colace for bowel regimen ESRD Acute severe hyperkalemia - resolved Hypophosphatemia Intermittent hemodialysis per nephrology (Dr. Francisco) Emergent HD 05/28 due to potassium of 6.8 with bradycardia and cardiac arrest. Monitor renal function, I/O's, avoid nephrotoxins. Continue PhosLo 667 mg 3 times a day. Acute healthcare associated pneumonia s/p Zosyn 2.25 g IV every 8 hours 05/29 - 06/12. Azithro x 10 days.05/28 nasal washing negative for Influenza. continue to monitor 05/28 - blood cultures 2 - 1 out of 2 corynebacterium not Jk 05/29 Sputum- beta strep not A Normocytic Anemia requiring transfusion, previously from acute blood loss from PEG tube 1 unit prbc, 1 FFP, 1 plt. DDAVP given 06/15 Given 1 unit PRBC 06/16, additional 1 unit PRBC given 2/2 Coags within normal limits Received 16 mg DDAVP and 5000 mg amicar Monitor CBC. Dr. Kevin/hematology followed. Von Willebrand antigen factor normal Diabetes mellitus Medium dose Insulin sliding scale with bedside glucose every 6 hours PROPH: Heparin subcutaneous/ Prevacid 30 mg daily for stress ulcer prophylaxis. Doppler US LE negative for DVT Problem Qualifiers (1) Hypertension: Qualified Code: I10 - Essential hypertension (2) DM (diabetes mellitus): Qualified Code: E11.22 - Type 2 diabetes mellitus with diabetic chronic kidney disease, unspecified CKD stage, unspecified [facility] insulin use status Ozzie Lopez MD Jul 04, 2016 09:35
[2016-07-04] MEDS: cloNIDine HCL 0.1 MG TAB PO SCH ×3 (10:40→17:49)
[2016-07-04] MEDS: QUEtiapine FUMARATE 25 MG TAB PO SCH ×2 (10:40→20:35)
[2016-07-04] MEDS: hydrALAZINE HCL 100 MG TAB PO SCH ×3 (10:40→17:49)
[2016-07-04] MEDS: LANSOPRAZOLE SOLUTAB 30 MG TAB NG SCH (10:40)
[2016-07-04] MEDS: DOCUSATE SODIUM 100 MG/10 ML UDC PO SCH ×2 (10:41→20:35)
[2016-07-04] MEDS: SODIUM CHLORIDE 0.9% FLUSH 5 ML FLUSH IV FLUSH SCH ×2 (10:41→21:00)
[2016-07-04] MEDS: NEOMYCIN/POLYMYXIN/BACITRACIN OINT 15 GM TUBE TOPICAL SCH ×2 (10:41→20:36)
--- NOTE | 2016-07-04 17:12 | HHI.NPPN ---
Subjective General Problems: Anemia Renal Failure: Chronic, End Stage Renal Disease Additional Remarks Patient is on T bar awake not in distress. Review of Systems General General Remarks unable to evaluate due to mental status Objective Data Data 07/03/16 07/04/16 19:00 07:00 Intake Total 600 ml 240 ml Output Total 20 ml Balance 580 ml 240 ml Intake Oral 0 ml 240 ml Tube Irrigant 600 ml Output Urine Total 20 ml Stool Total 0 ml # Voids 2 Vital Signs Date Time Temp Pulse Resp B/P Pulse Ox O2 Delivery O2 Flow Rate FiO2 07/04/16 15:00 97.7 81 20 147/65 100 07/04/16 11:00 96.7 85 20 147/72 100 07/04/16 08:00 98.3 97 20 161/94 100 07/04/16 07:00 81 07/04/16 06:00 86 07/04/16 05:00 80 07/04/16 04:35 98.5 84 173/80 99 07/04/16 04:35 100 Trach Collar 6.00 28 T-Piece 07/04/16 04:00 86 07/04/16 03:00 76 07/04/16 02:00 82 07/04/16 01:55 98.5 84 161/67 99 07/04/16 01:55 Trach Collar 6.00 28 T-Piece 07/04/16 01:00 84 07/04/16 00:00 88 07/03/16 23:00 85 07/03/16 22:00 90 07/03/16 21:00 80 07/03/16 20:00 96 07/03/16 19:00 Trach Collar 6.00 28 T-Piece 07/03/16 19:00 98.1 91 153/83 100 07/03/16 19:00 88 07/03/16 18:14 79 -: 07/01/16 0558 07/01/16 0558 Tubes & Lines Comment trach, PEG Drip Comment Precedex Physical Exam General Appearance: No Acute Distress, Anxious Eyes Eye Exam: Pupils Equal, Pupils Reactive Neck Neck Exam: Neck Supple Pulmonary Resp Exam: Breath Sounds Equal, Crackles, Decreased Bases, Diminished Breath Sounds Cardiology CV Exam: Regular, Normal Sinus Rhythm, Good Perfusion Gastrointestinal/Abdomen GI Exam: Soft, Non-Tender, Bowel Sounds Present, Non-Distended Extremeties Extremities Exam: Trace Edema Neurologic Neuro Exam: Alert Assessment/Plan Discussed Condition With: Patient Assessment Summary: Anemia of CKD, Hypertension, End Stage Renal Disease Electrolyte Assessment: Hypocalcemia Problem List: (1) ESRD on dialysis Plan: Continue dialysis T-Th-Sat, on Epogen for anemia. Weaning from Trach. as tolerated. Continue HD TTS. Encephalopathy more awake (2) Anemia Plan: Last hemoglobin stable (3) Hypertension Plan: BP stable. He is on metoprolol, hydralazine, clonidine with hold parameters (4) DM (diabetes mellitus) Plan: continue insulin coverage goal to maintain blood glucose between 140 and 180 off D10 , tube feeding was resumed (5) NSTEMI (non-ST elevated myocardial infarction) Plan: Troponin I elevated post cardiac arrest, chest compressions. he had catheterization in January 2016, normal coronary arteries (6) Elevated LFTs Plan: improved. (7) Cocaine abuse Plan: Cessation has been recommended. (8) Encephalopathy Plan: s/p trach placement. on Trach o2 Encephalopathy improving. Problem Qualifiers (1) Anemia: Qualified Code: D64.9 - Anemia, unspecified type (2) Hypertension: Qualified Code: I10 - Essential hypertension (3) DM (diabetes mellitus): Qualified Code: E11.22 - Type 2 diabetes mellitus with diabetic chronic kidney disease, unspecified CKD stage, unspecified nursing home insulin use status Willy Arellano MD Jul 04, 2016 17:11
--- NOTE | 2016-07-04 20:34 | HHI.PR ---
Subjective Remarks 60 YOAA male with RF, trach, ESRDs/p cardiac arrest On Trach mask Follows simple commands Small amount of trach secretions No new complaint No Fever Objective Vital Signs Vital Signs Date Time Temp Pulse Resp B/P Pulse Ox O2 Delivery O2 Flow Rate FiO2 07/04/16 17:41 97.3 89 18 150/94 100 07/04/16 15:00 97.7 81 20 147/65 100 07/04/16 15:00 100 T-Piece 6.00 Humidified 07/04/16 11:00 100 T-Piece 6.00 Humidified 07/04/16 11:00 96.7 85 20 147/72 100 07/04/16 08:00 98.3 97 20 161/94 100 07/04/16 07:00 100 T-Piece 6.00 Humidified 07/04/16 07:00 81 07/04/16 06:00 86 07/04/16 05:00 80 07/04/16 04:35 98.5 84 173/80 99 07/04/16 04:35 100 Trach Collar 6.00 28 T-Piece 07/04/16 04:00 86 07/04/16 03:00 76 07/04/16 02:00 82 07/04/16 01:55 98.5 84 161/67 99 07/04/16 01:55 Trach Collar 6.00 28 T-Piece 07/04/16 01:00 84 07/04/16 00:00 88 07/03/16 23:00 85 07/03/16 22:00 90 07/03/16 21:00 80 I/O 07/03/16 07/03/16 07/03/16 07/04/16 07/04/16 07/04/16 07:00 15:00 23:00 07:00 15:00 23:00 Intake Total 700 ml 600 ml 240 ml Output Total 20 ml Balance 700 ml 580 ml 240 ml Intake Oral 0 ml 240 ml Tube Feeding 600 ml Tube Irrigant 100 ml 600 ml Output Urine Total 20 ml Stool Total 0 ml # Voids 1 2 # Bowel Movements 0 Result Diagram: 07/01/1655707/01/16557 Objective Remarks GENERAL: WBWN AA male, no distress SKIN: Warm and dry. HEAD: Normocephalic. EYES: No scleral icterus. No injection or drainage. NECK: Supple, trachea midline. No JVD or lymphadenopathy. Has Trach CARDIOVASCULAR: Regular rate and rhythm without murmurs, gallops, or rubs. RESPIRATORY: Breath sounds equal bilaterally. No accessory muscle use. GASTROINTESTINAL: Abdomen soft, non-tender, nondistended. PEG Tube in place MUSCULOSKELETAL: No cyanosis, or edema. BACK: Nontender without obvious deformity. No CVA tenderness. A/P Assessment and Plan RF, s/p Trach ESRD Non-ischemic CMP H/O CVA Coccaine use DM PLAN: Cont trach collar Aerosol nebs cont TF Seraquel 50 mg bid DW Pt's [place] at BS Stable on Trach collar Master Krause MD Jul 04, 2016 20:34
[2016-07-05] VITALS (11 sets, daily range): BP systolic 98–154; BP diastolic 54–73; PULSE 83–100; RESP 18–24; TEMP 97–99.5; O2SAT 92–100
[2016-07-05] MEDS: HEPARIN SODIUM - SQ 10,000 UNITS/ML VIAL SQ SCH ×2 (01:37→18:54)
[2016-07-05] MEDS: METOPROLOL TARTRATE 25 MG TAB PO/NG SCH ×5 (01:37→23:36)
[2016-07-05] MEDS: INSULIN NovoLIN REGULAR SUPPLEMENTAL SCALE SQ SCH ×4 (02:49→21:00)
[2016-07-05] MEDS: CHLORHEXIDINE GLUCONATE 2 % 1 PACK (2 CLOTHS) TOP SCH (04:00)
--- NOTE | 2016-07-05 09:39 | HHI.PR ---
Subjective Remarks Follow-up cardiac arrest/encephalopathy/end-stage renal disease on HD/ hyperkalemia 07/04/16-patient seen and examined, follows commands alert no acute event overnight. BP slightly up and afebrile 07/05/16-patient seen and examined. No acute event overnight. Resting. Per nurse report, patient is requesting to have his diet changed Objective Vitals Vital Signs Date Time Temp Pulse Resp B/P Pulse Ox O2 Delivery O2 Flow Rate FiO2 07/05/16 08:00 99.5 96 18 125/58 100 07/05/16 04:00 97.0 94 18 115/73 96 07/05/16 02:55 97 T-piece 6.00 28 07/05/16 00:00 97.3 86 18 137/70 97 07/04/16 20:00 74 07/04/16 20:00 T-Piece 28 07/04/16 20:00 97.9 75 18 134/64 98 07/04/16 17:59 80 07/04/16 17:41 97.3 89 18 150/94 100 07/04/16 15:00 97.7 81 20 147/65 100 07/04/16 15:00 100 T-Piece 6.00 Humidified 07/04/16 11:00 100 T-Piece 6.00 Humidified 07/04/16 11:00 96.7 85 20 147/72 100 I/O 07/04/16 07/04/16 07/04/16 07/05/16 07/05/16 07/05/16 07:00 15:00 23:00 07:00 15:00 23:00 Intake Total 240 ml 665 ml 465 ml Balance 240 ml 665 ml 465 ml Intake Oral 240 ml 0 ml 0 ml Tube Feeding 565 ml 365 ml Other 100 ml 100 ml # Voids 2 0 2 # Bowel Movements 0 0 Result Diagram: 07/01/1655707/01/16557 Objective Remarks GENERAL: NAD and currently in a position restrains to upper extremities SKIN: Warm and dry. HEAD: Normocephalic. EYES: No scleral icterus. No injection or drainage. NECK: Supple, trachea midline. No JVD or lymphadenopathy. CARDIOVASCULAR: Regular rate and rhythm with II/ YEYO RESPIRATORY: Breath sounds equal bilaterally. No accessory muscle use. GASTROINTESTINAL: Abdomen soft, non-tender, nondistended. PEG tube in place MUSCULOSKELETAL: No cyanosis, or edema. BACK: Nontender without obvious deformity. No CVA tenderness. A/P Problem List: (1) Encephalopathy, metabolic ICD Code: G93.41 Status: Acute (2) HCAP (healthcare-associated pneumonia) ICD Code: J18.9 Status: Acute (3) Hyperkalemia, diminished renal excretion ICD Code: E87.5 Status: Acute (4) Hypertension ICD Code: I10 Status: Chronic (5) Hepatitis C ICD Code: B19.20 Status: Acute (6) ESRD on hemodialysis ICD Code: N18.6 Status: Chronic (7) DM (diabetes mellitus) ICD Code: E11.9 Status: Chronic (8) Bleeding from gastrostomy tube site ICD Code: K94.21 Status: Acute Assessment and Plan 60-year-old male with Acute encephalopathy, post cardiac arrest. History of stroke without residual deficit (per friend's report) History of cocaine abuse Posttraumatic stress disorder As needed fentanyl for pain management. s/p Precedex and now on Haldol when necessary for agitation Continue Seroquel 50 mg twice a day EEG 06/12 revealed mild sleep. No seizure activity noted. MRI brain revealed chronic vascular changes. No acute findings Neuro has followed-Dr. Wilks Acute respiratory failure Healthcare associated pneumonia Intubated in ED 05/28/16 following cardiac arrest Tolerating T piece DuoNeb q6 hours. Albuterol q2 prn. Ventilator Bundle. s/p trach 06/[address] Bearden Cardiac arrest, secondary to hyperkalemia Pulmonary edema Nonischemic cardiomyopathy secondary to HTN, cocaine abuse Hypertension Elevated Troponin: ? NSTEMI Continue home meds: Hydralazine 25 tid. Clonidine 0.1 tid., Lopressor 25mg Q6 ( 100 mg twice a day at home) ASA 81 mg daily Echo 05/31: EF 25-30%, no RWMA. Mild MR/TR. MEGAN 36 mmHg cardiac cath 12/09/2012 - EF 40%, normal coronaries. Elevated troponin, cardiac arrest. Per cardiology-no intervention planned. Hepatitis C Elevated LFT resolving Free air - likely secondary to EGD/tube feeding insufflation Daily TF-Nepro@50ml/hr. Monitor LFT's US liver: Bilateral pleural effusions. Thick-walled gallbladder with minimal pericholecystic fluid. Minimal ascites. Echogenic atrophic right kidney. Mild nonspecific prominence of the main pancreatic duct. status post suture by Dr. Zander Tabares. No bleeding actively from PEG site currently Prevacid for GI prophylaxis Colace for bowel regimen ESRD Acute severe hyperkalemia - resolved Hypophosphatemia Intermittent hemodialysis per nephrology (Dr. Francisco) Emergent HD 05/28 due to potassium of 6.8 with bradycardia and cardiac arrest. Monitor renal function, I/O's, avoid nephrotoxins. Continue PhosLo 667 mg 3 times a day. Acute healthcare associated pneumonia s/p Zosyn 2.25 g IV every 8 hours 05/29 - 06/12. Azithro x 10 days.05/28 nasal washing negative for Influenza. continue to monitor 05/28 - blood cultures 2 - 1 out of 2 corynebacterium not Jk 05/29 Sputum- beta strep not A Normocytic Anemia requiring transfusion, previously from acute blood loss from PEG tube 3 unit prbc, 1 FFP, 1 plt. DDAVP Coags within normal limits Received 16 mg DDAVP and 5000 mg amicar Monitor CBC. Dr. Kevin/hematology followed. Von Willebrand antigen factor normal Diabetes mellitus Medium dose Insulin sliding scale with bedside glucose every 6 hours PROPH: Heparin subcutaneous/ Prevacid 30 mg daily for stress ulcer prophylaxis. Doppler US LE negative for DVT Problem Qualifiers (1) Hypertension: Qualified Code: I10 - Essential hypertension (2) DM (diabetes mellitus): Qualified Code: E11.22 - Type 2 diabetes mellitus with diabetic chronic kidney disease, unspecified CKD stage, unspecified joint terminal attack controller insulin use status Ozzie Lopez MD Jul 05, 2016 09:39
[2016-07-05] MEDS: DOCUSATE SODIUM 100 MG/10 ML UDC PO SCH ×2 (09:41→21:52)
[2016-07-05] MEDS: cloNIDine HCL 0.1 MG TAB PO SCH ×3 (09:42→18:55)
[2016-07-05] MEDS: QUEtiapine FUMARATE 25 MG TAB PO SCH ×2 (09:42→21:52)
[2016-07-05] MEDS: NEOMYCIN/POLYMYXIN/BACITRACIN OINT 15 GM TUBE TOPICAL SCH ×2 (09:42→21:53)
[2016-07-05] MEDS: CHLORHEXIDINE 0.12% (ORAL KIT) 15 ML CUP MT SCH ×2 (09:42→20:00)
[2016-07-05] MEDS: hydrALAZINE HCL 100 MG TAB PO SCH ×3 (09:42→18:55)
[2016-07-05] MEDS: LANSOPRAZOLE SOLUTAB 30 MG TAB NG SCH (09:42)
[2016-07-05] MEDS: SODIUM CHLORIDE 0.9% FLUSH 5 ML FLUSH IV FLUSH SCH ×2 (09:42→21:52)
--- NOTE | 2016-07-05 11:35 | HHI.NPPN ---
Subjective General Problems: Anemia Renal Failure: Chronic, End Stage Renal Disease Additional Remarks Patient is on T bar awake not in distress. Review of Systems General General Remarks unable to evaluate due to mental status Objective Data Data 07/04/16 07/05/16 19:00 07:00 Intake Total 1130 ml Balance 1130 ml Intake Oral 0 ml Tube Feeding 930 ml Other 200 ml # Voids 2 # Bowel Movements 0 Vital Signs Date Time Temp Pulse Resp B/P Pulse Ox O2 Delivery O2 Flow Rate FiO2 07/05/16 10:00 T-Piece 6.00 28 07/05/16 10:00 99 07/05/16 08:00 99.5 96 18 125/58 100 07/05/16 04:00 97.0 94 18 115/73 96 07/05/16 02:55 97 T-piece 6.00 28 07/05/16 00:00 97.3 86 18 137/70 97 07/04/16 20:00 74 07/04/16 20:00 T-Piece 28 07/04/16 20:00 97.9 75 18 134/64 98 07/04/16 17:59 80 07/04/16 17:41 97.3 89 18 150/94 100 07/04/16 15:00 97.7 81 20 147/65 100 07/04/16 15:00 100 T-Piece 6.00 Humidified -: 07/01/16 0558 07/01/16 0558 Tubes & Lines Comment trach, PEG Drip Comment Precedex Physical Exam General Appearance: No Acute Distress, Anxious Eyes Eye Exam: Pupils Equal, Pupils Reactive Neck Neck Exam: Neck Supple Pulmonary Resp Exam: Breath Sounds Equal, Crackles, Decreased Bases, Diminished Breath Sounds Cardiology CV Exam: Regular, Normal Sinus Rhythm, Good Perfusion Gastrointestinal/Abdomen GI Exam: Soft, Non-Tender, Bowel Sounds Present, Non-Distended Extremeties Extremities Exam: Trace Edema Neurologic Neuro Exam: Alert Assessment/Plan Discussed Condition With: Patient Assessment Summary: Anemia of CKD, Hypertension, End Stage Renal Disease Electrolyte Assessment: Hypocalcemia Problem List: (1) ESRD on dialysis Plan: Continue dialysis T-Th-Sat, on Epogen for anemia. CBC,Renal panel ordered. next HD today Weaning from Trach. as tolerated. Continue HD TTS. Encephalopathy more awake (2) Anemia Plan: Last hemoglobin stable (3) Hypertension Plan: BP stable. He is on metoprolol, hydralazine, clonidine with hold parameters (4) DM (diabetes mellitus) Plan: continue insulin coverage goal to maintain blood glucose between 140 and 180 off D10 , tube feeding was resumed (5) NSTEMI (non-ST elevated myocardial infarction) Plan: Troponin I elevated post cardiac arrest, chest compressions. he had catheterization in January 2016, normal coronary arteries (6) Elevated LFTs Plan: improved. (7) Cocaine abuse Plan: Cessation has been recommended. (8) Encephalopathy Plan: s/p trach placement. on Trach o2 Encephalopathy improving. Problem Qualifiers (1) Anemia: Qualified Code: D64.9 - Anemia, unspecified type (2) Hypertension: Qualified Code: I10 - Essential hypertension (3) DM (diabetes mellitus): Qualified Code: E11.22 - Type 2 diabetes mellitus with diabetic chronic kidney disease, unspecified CKD stage, unspecified detention insulin use status Willy Arellano MD Jul 05, 2016 11:35
[2016-07-05 14:37] LABS: AUTOMATED NEUTROPHIL # 14.1 TH/MM3 (1.8-7.7); BASOPHIL % 0.3 % (0.0-2.0); EOSINOPHIL % 0.2 % (0.0-4.0); HEMATOCRIT 27.7 % (39.0-51.0); HEMO FLAGS DIFF FINAL; LYMPH % 5.3 % (9.0-44.0); LYMPHOCYTE # 0.9 TH/MM3 (1.0-4.8); MEAN CELL VOLUME 90.3 FL (80.0-100.0); MEAN CORPUSCULAR HEMOGLOBIN 29.5 PG (27.0-34.0); MEAN CORPUSCULAR HGB CONC 32.6 % (32.0-36.0); MONO % 7.1 % (0.0-8.0); NEUT % 87.1 % (16.0-70.0); PLATELET COUNT 249 TH/MM3 (150-450); RED BLOOD COUNT 3.06 MIL/MM3 (4.50-5.90); RED CELL DISTRIBUTION WIDTH 16.4 % (11.6-17.2); WHITE BLOOD COUNT 16.2 TH/MM3 (4.0-11.0)
[2016-07-05 14:48] LABS: BICARBONATE 28.7 MEQ/L (21.0-32.0); POTASSIUM 4.4 MEQ/L (3.5-5.1)
[2016-07-05] MEDS: EPOETIN ALFA 10,000 UNITS/ML VIAL IV PRN (17:43)
--- NOTE | 2016-07-05 19:15 | HHI.PR ---
Subjective Remarks 60 YOAA male with RF, trach, ESRDs/p cardiac arrest On Trach mask Follows simple commands Small amount of trach secretions No Fever Objective Vital Signs Vital Signs Date Time Temp Pulse Resp B/P Pulse Ox O2 Delivery O2 Flow Rate FiO2 07/05/16 17:45 97 T-piece 28 07/05/16 12:00 99.1 94 18 98/64 99 07/05/16 10:00 T-Piece 6.00 28 07/05/16 10:00 99 07/05/16 08:00 99.5 96 18 125/58 100 07/05/16 04:00 97.0 94 18 115/73 96 07/05/16 02:55 97 T-piece 6.00 28 07/05/16 00:00 97.3 86 18 137/70 97 07/04/16 20:00 74 07/04/16 20:00 T-Piece 28 07/04/16 20:00 97.9 75 18 134/64 98 I/O 07/04/16 07/04/16 07/04/16 07/05/16 07/05/16 07/05/16 07:00 15:00 23:00 07:00 15:00 23:00 Intake Total 240 ml 665 ml 465 ml Output Total 3000 ml Balance 240 ml 665 ml 465 ml -3000 ml Intake Oral 240 ml 0 ml 0 ml Tube Feeding 565 ml 365 ml Other 100 ml 100 ml Hemodialysis 3000 ml # Voids 2 0 2 1 # Bowel Movements 0 0 0 Result Diagram: 07/05/16 1413 07/05/16 1413 Objective Remarks GENERAL: WBWN AA male, no distress SKIN: Warm and dry. HEAD: Normocephalic. EYES: No scleral icterus. No injection or drainage. NECK: Supple, trachea midline. No JVD or lymphadenopathy. Has Trach CARDIOVASCULAR: Regular rate and rhythm without murmurs, gallops, or rubs. RESPIRATORY: Breath sounds equal bilaterally. No accessory muscle use. GASTROINTESTINAL: Abdomen soft, non-tender, nondistended. PEG Tube in place MUSCULOSKELETAL: No cyanosis, or edema. BACK: Nontender without obvious deformity. No CVA tenderness. A/P Assessment and Plan RF, s/p Trach ESRD Non-ischemic CMP H/O CVA Coccaine use DM PLAN: Cont trach collar Aerosol nebs cont TF Seraquel 50 mg bid Stable on Trach collar Aneja,Master Dev MD Jul 05, 2016 19:15
[2016-07-06] VITALS (7 sets, daily range): BP systolic 137–142; BP diastolic 60–65; PULSE 80–89; RESP 18–22; TEMP 97.2–97.8; O2SAT 95–100
[2016-07-06] MEDS: INSULIN NovoLIN REGULAR SUPPLEMENTAL SCALE SQ SCH ×4 (03:00→21:00)
[2016-07-06] MEDS: CHLORHEXIDINE GLUCONATE 2 % 1 PACK (2 CLOTHS) TOP SCH (04:00)
[2016-07-06] MEDS: HEPARIN SODIUM - SQ 10,000 UNITS/ML VIAL SQ SCH ×2 (04:11→14:09)
[2016-07-06] MEDS: METOPROLOL TARTRATE 25 MG TAB PO/NG SCH ×3 (05:29→18:02)
[2016-07-06] MEDS: CHLORHEXIDINE 0.12% (ORAL KIT) 15 ML CUP MT SCH ×2 (08:00→20:00)
[2016-07-06] MEDS: DOCUSATE SODIUM 100 MG/10 ML UDC PO SCH ×2 (08:42→21:30)
[2016-07-06] MEDS: LANSOPRAZOLE SOLUTAB 30 MG TAB NG SCH (08:42)
[2016-07-06] MEDS: QUEtiapine FUMARATE 25 MG TAB PO SCH ×2 (08:42→21:31)
[2016-07-06] MEDS: cloNIDine HCL 0.1 MG TAB PO SCH ×3 (08:42→18:02)
[2016-07-06] MEDS: hydrALAZINE HCL 100 MG TAB PO SCH ×3 (08:42→18:02)
[2016-07-06] MEDS: NEOMYCIN/POLYMYXIN/BACITRACIN OINT 15 GM TUBE TOPICAL SCH ×2 (08:43→21:31)
[2016-07-06] MEDS: SODIUM CHLORIDE 0.9% FLUSH 5 ML FLUSH IV FLUSH SCH ×2 (08:43→21:30)
--- NOTE | 2016-07-06 10:52 | HHI.PR ---
Subjective Remarks Follow-up cardiac arrest/encephalopathy/end-stage renal disease on HD/ hyperkalemia 07/04/16-patient seen and examined, follows commands alert no acute event overnight. BP slightly up and afebrile 07/05/16-patient seen and examined. No acute event overnight. Resting. Per nurse report, patient is requesting to have his diet changed 07/06/16-patient seen and examined, stable, no acute event overnight, afebrile. Objective Vitals Vital Signs Date Time Temp Pulse Resp B/P Pulse Ox O2 Delivery O2 Flow Rate FiO2 07/06/16 03:58 97.8 89 18 137/60 95 07/05/16 23:32 97.5 89 18 120/60 99 07/05/16 21:18 98.1 83 18 118/54 92 07/05/16 20:04 96 07/05/16 19:00 T-Piece 28 07/05/16 17:45 97 T-piece 28 07/05/16 12:00 99.1 94 18 98/64 99 I/O 07/05/16 07/05/16 07/05/16 07/06/16 07/06/16 07/06/16 07:00 15:00 23:00 07:00 15:00 23:00 Intake Total 465 ml 1000 ml 818 ml Output Total 3000 ml 0 ml Balance 465 ml -2000 ml 818 ml Intake Oral 0 ml 0 ml 0 ml Tube Feeding 365 ml 800 ml 618 ml Other 100 ml 200 ml 200 ml Output Urine Total 0 ml 0 ml Hemodialysis 3000 ml # Voids 2 1 # Bowel Movements 0 0 0 0 Result Diagram: 07/05/16 1413 07/05/16 1413 Objective Remarks GENERAL: NAD and currently in a position restrains to upper extremities SKIN: Warm and dry. HEAD: Normocephalic. EYES: No scleral icterus. No injection or drainage. NECK: Supple, trachea midline. No JVD or lymphadenopathy. CARDIOVASCULAR: Regular rate and rhythm with II/ YEYO RESPIRATORY: Breath sounds equal bilaterally. No accessory muscle use. GASTROINTESTINAL: Abdomen soft, non-tender, nondistended. PEG tube in place MUSCULOSKELETAL: No cyanosis, or edema. BACK: Nontender without obvious deformity. No CVA tenderness. A/P Problem List: (1) Encephalopathy, metabolic ICD Code: G93.41 Status: Acute (2) HCAP (healthcare-associated pneumonia) ICD Code: J18.9 Status: Acute (3) Hyperkalemia, diminished renal excretion ICD Code: E87.5 Status: Acute (4) Hypertension ICD Code: I10 Status: Chronic (5) Hepatitis C ICD Code: B19.20 Status: Acute (6) ESRD on hemodialysis ICD Code: N18.6 Status: Chronic (7) DM (diabetes mellitus) ICD Code: E11.9 Status: Chronic (8) Bleeding from gastrostomy tube site ICD Code: K94.21 Status: Acute Assessment and Plan 60-year-old male with Acute encephalopathy, post cardiac arrest. History of stroke without residual deficit (per friend's report) History of cocaine abuse Posttraumatic stress disorder As needed fentanyl for pain management. s/p Precedex and now on Haldol when necessary for agitation Continue Seroquel 50 mg twice a day EEG 06/12 revealed mild sleep. No seizure activity noted. MRI brain revealed chronic vascular changes. No acute findings Neuro has followed-Dr. Wilks Acute respiratory failure Healthcare associated pneumonia Intubated in ED 05/28/16 following cardiac arrest Tolerating T piece DuoNeb q6 hours. Albuterol q2 prn. Ventilator Bundle. s/p trach 06/[address] Bearden Cardiac arrest, secondary to hyperkalemia Pulmonary edema Nonischemic cardiomyopathy secondary to HTN, cocaine abuse Hypertension Elevated Troponin: ? NSTEMI Continue home meds: Hydralazine 25 tid. Clonidine 0.1 tid., Lopressor 25mg Q6 ( 100 mg twice a day at home) ASA 81 mg daily Echo 05/31: EF 25-30%, no RWMA. Mild MR/TR. MEGAN 36 mmHg cardiac cath 12/09/2012 - EF 40%, normal coronaries. Elevated troponin, cardiac arrest. Per cardiology-no intervention planned. Hepatitis C Elevated LFT resolving Free air - likely secondary to EGD/tube feeding insufflation Daily TF-Nepro@50ml/hr. Monitor LFT's US liver: Bilateral pleural effusions. Thick-walled gallbladder with minimal pericholecystic fluid. Minimal ascites. Echogenic atrophic right kidney. Mild nonspecific prominence of the main pancreatic duct. status post suture by Dr. Zander Tabares. No bleeding actively from PEG site currently Prevacid for GI prophylaxis Colace for bowel regimen ESRD Acute severe hyperkalemia - resolved Hypophosphatemia Intermittent hemodialysis per nephrology (Dr. Francisco) Emergent HD 05/28 due to potassium of 6.8 with bradycardia and cardiac arrest. Monitor renal function, I/O's, avoid nephrotoxins. Continue PhosLo 667 mg 3 times a day. Acute healthcare associated pneumonia s/p Zosyn 2.25 g IV every 8 hours 05/29 - 06/12. Azithro x 10 days.05/28 nasal washing negative for Influenza. continue to monitor 05/28 - blood cultures 2 - 1 out of 2 corynebacterium not Jk 05/29 Sputum- beta strep not A Normocytic Anemia requiring transfusion, previously from acute blood loss from PEG tube 3 unit prbc, 1 FFP, 1 plt. DDAVP Coags within normal limits Received 16 mg DDAVP and [address] Kevin/hematology followed. Von Willebrand antigen factor normal Diabetes mellitus Medium dose Insulin sliding scale with bedside glucose every 6 hours PROPH: Heparin subcutaneous/ Prevacid 30 mg daily for stress ulcer prophylaxis. Doppler US LE negative for DVT Continue with current care Problem Qualifiers (1) Hypertension: Qualified Code: I10 - Essential hypertension (2) DM (diabetes mellitus): Qualified Code: E11.22 - Type 2 diabetes mellitus with diabetic chronic kidney disease, unspecified CKD stage, unspecified residential insulin use status Ozzie Lopez MD Jul 06, 2016 10:52
--- NOTE | 2016-07-06 12:48 | HHI.NPPN ---
Subjective General Problems: Anemia Renal Failure: Chronic, End Stage Renal Disease Additional Remarks Patient is on T bar awake not in distress. Review of Systems General General Remarks unable to evaluate due to mental status Objective Data Data 07/05/16 07/06/16 19:00 07:00 Intake Total 1818 ml Output Total 3000 ml 0 ml Balance -3000 ml 1818 ml Intake Oral 0 ml Tube Feeding 1418 ml Other 400 ml Output Urine Total 0 ml Hemodialysis 3000 ml # Voids 1 # Bowel Movements 0 0 Vital Signs Date Time Temp Pulse Resp B/P Pulse Ox O2 Delivery O2 Flow Rate FiO2 07/06/16 08:00 T-Piece 6.00 28 07/06/16 08:00 97.2 86 22 141/63 99 07/06/16 03:58 97.8 89 18 137/60 95 07/05/16 23:32 97.5 89 18 120/60 99 07/05/16 21:18 98.1 83 18 118/54 92 07/05/16 20:04 96 07/05/16 19:00 T-Piece 28 07/05/16 17:45 97 T-piece 28 -: 07/05/16 1413 07/05/16 1413 Tubes & Lines Comment trach, PEG Drip Comment Precedex Physical Exam General Appearance: No Acute Distress, Anxious Eyes Eye Exam: Pupils Equal, Pupils Reactive Neck Neck Exam: Neck Supple Pulmonary Resp Exam: Breath Sounds Equal, Crackles, Decreased Bases, Diminished Breath Sounds Cardiology CV Exam: Regular, Normal Sinus Rhythm, Good Perfusion Gastrointestinal/Abdomen GI Exam: Soft, Non-Tender, Bowel Sounds Present, Non-Distended Extremeties Extremities Exam: Trace Edema Neurologic Neuro Exam: Alert Assessment/Plan Discussed Condition With: Patient Assessment Summary: Anemia of CKD, Hypertension, End Stage Renal Disease Electrolyte Assessment: Hypocalcemia Problem List: (1) ESRD on dialysis Plan: Continue dialysis T-Th-Sat, on Epogen for anemia. CBC,Renal panel ordered.HD yesterday 3 L off Continue HD TTS. Encephalopathy more awake (2) Anemia Plan: Last hemoglobin stable (3) Hypertension Plan: BP stable. He is on metoprolol, hydralazine, clonidine with hold parameters (4) DM (diabetes mellitus) Plan: continue insulin coverage goal to maintain blood glucose between 140 and 180 off D10 , tube feeding was resumed (5) NSTEMI (non-ST elevated myocardial infarction) Plan: Troponin I elevated post cardiac arrest, chest compressions. he had catheterization in January 2016, normal coronary arteries (6) Elevated LFTs Plan: improved. (7) Cocaine abuse Plan: Cessation has been recommended. (8) Encephalopathy Plan: s/p trach placement. on Trach o2 Encephalopathy improving. Problem Qualifiers (1) Anemia: Qualified Code: D64.9 - Anemia, unspecified type (2) Hypertension: Qualified Code: I10 - Essential hypertension (3) DM (diabetes mellitus): Qualified Code: E11.22 - Type 2 diabetes mellitus with diabetic chronic kidney disease, unspecified CKD stage, unspecified longterm insulin use status Willy Arellano MD Jul 06, 2016 12:48 Willy Arellano MD Jul 06, 2016 12:48
[2016-07-06] MEDS: LORazepam 2 MG/ML VIAL IV PUSH PRN (18:02)
--- NOTE | 2016-07-06 20:11 | HHI.PR ---
Subjective Remarks 60 YOAA male with RF, trach, ESRDs/p cardiac arrest On Trach mask Follows simple commands Small amount of trach secretions Afebrile, no new complaint. Objective Vital Signs Vital Signs Date Time Temp Pulse Resp B/P Pulse Ox O2 Delivery O2 Flow Rate FiO2 07/06/16 18:30 100 T-piece 6.00 28 07/06/16 16:00 97.5 83 22 141/65 99 07/06/16 12:50 99 T-piece 28 07/06/16 12:00 97.3 83 22 142/62 98 07/06/16 08:00 84 07/06/16 08:00 T-Piece 6.00 28 07/06/16 08:00 97.2 86 22 141/63 99 07/06/16 03:58 97.8 89 18 137/60 95 07/05/16 23:32 97.5 89 18 120/60 99 07/05/16 21:18 98.1 83 18 118/54 92 I/O 07/05/16 07/05/16 07/05/16 07/06/16 07/06/16 07/06/16 07:00 15:00 23:00 07:00 15:00 23:00 Intake Total 465 ml 1000 ml 818 ml 562 ml Output Total 3000 ml 0 ml Balance 465 ml -2000 ml 818 ml 562 ml Intake Oral 0 ml 0 ml 0 ml Tube Feeding 365 ml 800 ml 618 ml 362 ml Other 100 ml 200 ml 200 ml 200 ml Output Urine Total 0 ml 0 ml Hemodialysis 3000 ml # Voids 2 1 # Bowel Movements 0 0 0 0 Result Diagram: 07/05/16 1413 07/05/16 141 Objective Remarks GENERAL: WBWN AA male, no distress SKIN: Warm and dry. HEAD: Normocephalic. EYES: No scleral icterus. No injection or drainage. NECK: Supple, trachea midline. No JVD or lymphadenopathy. Has Trach CARDIOVASCULAR: Regular rate and rhythm without murmurs, gallops, or rubs. RESPIRATORY: Breath sounds equal bilaterally. No accessory muscle use. GASTROINTESTINAL: Abdomen soft, non-tender, nondistended. PEG Tube in place MUSCULOSKELETAL: No cyanosis, or edema. BACK: Nontender without obvious deformity. No CVA tenderness. A/P Assessment and Plan RF, s/p Trach ESRD Non-ischemic CMP H/O CVA Coccaine use DM PLAN: Cont trach collar Aerosol nebs cont TF Seraquel 50 mg bid Stable on Trach collar Master Krause MD Jul 06, 2016 20:11
[2016-07-06] MEDS: HALOPERIDOL LACTATE 5 MG/ML AMP IM PRN (21:29)
[2016-07-07] VITALS (7 sets, daily range): BP systolic 132–173; BP diastolic 72–78; PULSE 79–103; RESP 14–20; TEMP 97.3–98.2; O2SAT 97–100
[2016-07-07] MEDS: METOPROLOL TARTRATE 25 MG TAB PO/NG SCH ×4 (00:57→17:20)
[2016-07-07] MEDS: HEPARIN SODIUM - SQ 10,000 UNITS/ML VIAL SQ SCH ×2 (01:07→17:20)
[2016-07-07] MEDS: INSULIN NovoLIN REGULAR SUPPLEMENTAL SCALE SQ SCH ×4 (02:53→21:00)
[2016-07-07] MEDS: LORazepam 2 MG/ML VIAL IV PUSH PRN ×3 (02:56→22:01)
[2016-07-07] MEDS: CHLORHEXIDINE GLUCONATE 2 % 1 PACK (2 CLOTHS) TOP SCH (04:00)
[2016-07-07] MEDS: CHLORHEXIDINE 0.12% (ORAL KIT) 15 ML CUP MT SCH ×2 (08:00→20:00)
[2016-07-07] MEDS: DOCUSATE SODIUM 100 MG/10 ML UDC PO SCH ×2 (08:59→22:01)
[2016-07-07] MEDS: QUEtiapine FUMARATE 25 MG TAB PO SCH ×2 (08:59→22:02)
[2016-07-07] MEDS: cloNIDine HCL 0.1 MG TAB PO SCH ×3 (08:59→17:20)
[2016-07-07] MEDS: hydrALAZINE HCL 100 MG TAB PO SCH ×3 (08:59→17:20)
[2016-07-07] MEDS: SODIUM CHLORIDE 0.9% FLUSH 5 ML FLUSH IV FLUSH SCH ×2 (09:00→22:01)
[2016-07-07] MEDS: NEOMYCIN/POLYMYXIN/BACITRACIN OINT 15 GM TUBE TOPICAL SCH ×2 (09:00→21:00)
[2016-07-07] MEDS: LANSOPRAZOLE SOLUTAB 30 MG TAB NG SCH (09:00)
--- NOTE | 2016-07-07 10:25 | HHI.NPPN ---
Subjective General Problems: Anemia Renal Failure: Chronic, End Stage Renal Disease Additional Remarks Patient is on O2 awake not in distress. Review of Systems General General Remarks unable to evaluate due to mental status Objective Data Data 07/06/16 07/07/16 19:00 07:00 Intake Total 562 ml 0 ml Output Total 0 ml Balance 562 ml 0 ml Intake Oral 0 ml Tube Feeding 362 ml Other 200 ml Output Urine Total 0 ml # Bowel Movements 0 Vital Signs Date Time Temp Pulse Resp B/P Pulse Ox O2 Delivery O2 Flow Rate FiO2 07/07/16 09:56 98 21 07/07/16 03:34 97.4 79 18 137/72 98 07/07/16 00:37 97.4 81 18 132/73 100 07/06/16 21:00 T-Piece 6.00 28 07/06/16 20:58 97.6 80 18 140/64 98 07/06/16 18:30 100 T-piece 6.00 28 07/06/16 16:00 97.5 83 22 141/65 99 07/06/16 12:50 99 T-piece 28 07/06/16 12:00 97.3 83 22 142/62 98 -: 07/05/16 1413 07/05/16 1413 Tubes & Lines Comment trach, PEG Drip Comment Precedex Physical Exam General Appearance: No Acute Distress Eyes Eye Exam: Pupils Equal, Pupils Reactive Neck Neck Exam: Neck Supple Pulmonary Resp Exam: Breath Sounds Equal, Crackles, Decreased Bases, Diminished Breath Sounds Cardiology CV Exam: Regular, Normal Sinus Rhythm, Good Perfusion Gastrointestinal/Abdomen GI Exam: Soft, Non-Tender, Bowel Sounds Present, Non-Distended Extremeties Extremities Exam: Trace Edema Neurologic Neuro Exam: Alert Assessment/Plan Discussed Condition With: Patient Assessment Summary: Anemia of CKD, Hypertension, End Stage Renal Disease Electrolyte Assessment: Hypocalcemia Problem List: (1) ESRD on dialysis Plan: Continue dialysis T-Th-Sat, on Epogen for anemia. next HD today Continue HD TTS. Encephalopathy more awake seen during HD 2 L UF (2) Anemia Plan: Last hemoglobin stable (3) Hypertension Plan: BP stable. He is on metoprolol, hydralazine, clonidine with hold parameters (4) DM (diabetes mellitus) Plan: continue insulin coverage goal to maintain blood glucose between 140 and 180 off D10 , tube feeding was resumed (5) NSTEMI (non-ST elevated myocardial infarction) Plan: Troponin I elevated post cardiac arrest, chest compressions. he had catheterization in January 2016, normal coronary arteries (6) Elevated LFTs Plan: improved. (7) Cocaine abuse Plan: Cessation has been recommended. (8) Encephalopathy Plan: s/p trach placement. on Trach o2 Encephalopathy improving. 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
--- NOTE | 2016-07-07 13:23 | HHI.PR ---
Subjective Remarks Follow-up cardiac arrest/encephalopathy/end-stage renal disease on HD/ hyperkalemia 07/04/16-patient seen and examined, follows commands alert no acute event overnight. BP slightly up and afebrile 07/05/16-patient seen and examined. No acute event overnight. Resting. Per nurse report, patient is requesting to have his diet changed 07/06/16-patient seen and examined, stable, no acute event overnight, afebrile. 07/07/16-patient seen and examined; patient has restrains to bilateral lower extremities on top of upper extremities as he became more agitated overnight. This AM , he was somnolent Objective Vitals Vital Signs Date Time Temp Pulse Resp B/P Pulse Ox O2 Delivery O2 Flow Rate FiO2 07/07/16 09:56 98 21 07/07/16 03:34 97.4 79 18 137/72 98 07/07/16 00:37 97.4 81 18 132/73 100 07/06/16 21:00 T-Piece 6.00 28 07/06/16 20:58 97.6 80 18 140/64 98 07/06/16 18:30 100 T-piece 6.00 28 07/06/16 16:00 97.5 83 22 141/65 99 I/O 07/06/16 07/06/16 07/06/16 07/07/16 07/07/16 07/07/16 07:00 15:00 23:00 07:00 15:00 23:00 Intake Total 818 ml 562 ml 0 ml 0 ml Output Total 0 ml 0 ml 0 ml Balance 818 ml 562 ml 0 ml 0 ml Intake Oral 0 ml 0 ml 0 ml Tube Feeding 618 ml 362 ml Other 200 ml 200 ml Output Urine Total 0 ml 0 ml 0 ml # Bowel Movements 0 0 0 Result Diagram: 07/05/16 1413 07/05/16 1413 Objective Remarks GENERAL: NAD and currently in a position restrains to all 4 extremities SKIN: Warm and dry. HEAD: Normocephalic. EYES: No scleral icterus. No injection or drainage. NECK: Supple, trachea midline. No JVD or lymphadenopathy. CARDIOVASCULAR: Regular rate and rhythm with II/ YEYO RESPIRATORY: Breath sounds equal bilaterally. No accessory muscle use. GASTROINTESTINAL: Abdomen soft, non-tender, nondistended. PEG tube in place MUSCULOSKELETAL: No cyanosis, or edema. BACK: Nontender without obvious deformity. No CVA tenderness. A/P Problem List: (1) Encephalopathy, metabolic ICD Code: G93.41 Status: Acute (2) HCAP (healthcare-associated pneumonia) ICD Code: J18.9 Status: Acute (3) Hyperkalemia, diminished renal excretion ICD Code: E87.5 Status: Acute (4) Hypertension ICD Code: I10 Status: Chronic (5) Hepatitis C ICD Code: B19.20 Status: Acute (6) ESRD on hemodialysis ICD Code: N18.6 Status: Chronic (7) DM (diabetes mellitus) ICD Code: E11.9 Status: Chronic (8) Bleeding from gastrostomy tube site ICD Code: K94.21 Status: Acute Assessment and Plan 60-year-old male with Acute encephalopathy, post cardiac arrest. History of stroke without residual deficit (per friend's report) History of cocaine abuse Posttraumatic stress disorder As needed fentanyl for pain management. s/p Precedex and now on Haldol when necessary for agitation Continue Seroquel 50 mg twice a day EEG 06/12 revealed mild sleep. No seizure activity noted. MRI brain revealed chronic vascular changes. No acute findings Neuro has followed-Dr. Wilks Acute respiratory failure Healthcare associated pneumonia Intubated in ED 05/28/16 following cardiac arrest Tolerating T piece DuoNeb q6 hours. Albuterol q2 prn. Ventilator Bundle. s/p trach 06/[address] Bearden Cardiac arrest, secondary to hyperkalemia Pulmonary edema Nonischemic cardiomyopathy secondary to HTN, cocaine abuse Hypertension Elevated Troponin: ? NSTEMI Continue home meds: Hydralazine 25 tid. Clonidine 0.1 tid., Lopressor 25mg Q6 ( 100 mg twice a day at home) ASA 81 mg daily Echo 05/31: EF 25-30%, no RWMA. Mild MR/TR. MEGAN 36 mmHg cardiac cath 12/09/2012 - EF 40%, normal coronaries. Elevated troponin, cardiac arrest. Per cardiology-no intervention planned. Hepatitis C Elevated LFT resolving Free air - likely secondary to EGD/tube feeding insufflation Daily TF-Nepro@50ml/hr. Monitor LFT's US liver: Bilateral pleural effusions. Thick-walled gallbladder with minimal pericholecystic fluid. Minimal ascites. Echogenic atrophic right kidney. Mild nonspecific prominence of the main pancreatic duct. status post suture by Dr. Zander Tabares. No bleeding actively from PEG site currently Prevacid for GI prophylaxis Colace for bowel regimen ESRD Acute severe hyperkalemia - resolved Hypophosphatemia Intermittent hemodialysis per nephrology (Dr. Francisco) Emergent HD 05/28 due to potassium of 6.8 with bradycardia and cardiac arrest. Monitor renal function, I/O's, avoid nephrotoxins. Continue PhosLo 667 mg 3 times a day. Acute healthcare associated pneumonia s/p Zosyn 2.25 g IV every 8 hours 05/29 - 06/12. Azithro x 10 days.05/28 nasal washing negative for Influenza. continue to monitor Leukocytosis, repeat CBC in a.m. and consider panculture Normocytic Anemia requiring transfusion, previously from acute blood loss from PEG tube 3 unit prbc, 1 FFP, 1 plt. DDAVP Coags within normal limits Received 16 mg DDAVP and [address] Kevin/hematology followed. Von Willebrand antigen factor normal Diabetes mellitus Medium dose Insulin sliding scale with bedside glucose every 6 hours PROPH: Heparin subcutaneous/ Prevacid 30 mg daily for stress ulcer prophylaxis. 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
[2016-07-07] MEDS: SODIUM CHLOR 0.9% 1000 ML INJ 1,000 ML IV PRN (13:55)
[2016-07-07] MEDS: EPOETIN ALFA 10,000 UNITS/ML VIAL IV PRN (13:55)
[2016-07-07] MEDS: GELATIN 12 MM/7 MM FOAM TOP PRN (13:56)
--- NOTE | 2016-07-07 17:17 | HHI.PR ---
Subjective Remarks 60 YOAA male with RF, trach, ESRDs/p cardiac arrest On Trach mask Small amount of trach secretions Afebrile, no new complaint. Tolerates TF Objective Vital Signs Vital Signs Date Time Temp Pulse Resp B/P Pulse Ox O2 Delivery O2 Flow Rate FiO2 07/07/16 12:00 97.9 81 18 165/77 97 07/07/16 09:56 98 21 07/07/16 08:00 97.3 87 14 173/74 97 07/07/16 03:34 97.4 79 18 137/72 98 07/07/16 00:37 97.4 81 18 132/73 100 07/06/16 21:00 T-Piece 6.00 28 07/06/16 20:58 97.6 80 18 140/64 98 07/06/16 18:30 100 T-piece 6.00 28 I/O 07/06/16 07/06/16 07/06/16 07/07/16 07/07/16 07/07/16 07:00 15:00 23:00 07:00 15:00 23:00 Intake Total 818 ml 562 ml 0 ml 0 ml Output Total 0 ml 0 ml 0 ml 2000 ml Balance 818 ml 562 ml 0 ml 0 ml -2000 ml Intake Oral 0 ml 0 ml 0 ml Tube Feeding 618 ml 362 ml Other 200 ml 200 ml Output Urine Total 0 ml 0 ml 0 ml Hemodialysis 2000 ml # Bowel Movements 0 0 0 Result Diagram: 07/05/16 1413 07/05/16 1413 Objective Remarks GENERAL: WBWN AA male, no distress SKIN: Warm and dry. HEAD: Normocephalic. EYES: No scleral icterus. No injection or drainage. NECK: Supple, trachea midline. No JVD or lymphadenopathy. Has Trach CARDIOVASCULAR: Regular rate and rhythm without murmurs, gallops, or rubs. RESPIRATORY: Breath sounds equal bilaterally. No accessory muscle use. GASTROINTESTINAL: Abdomen soft, non-tender, nondistended. PEG Tube in place MUSCULOSKELETAL: No cyanosis, or edema. BACK: Nontender without obvious deformity. No CVA tenderness. A/P Assessment and Plan RF, s/p Trach ESRD Non-ischemic CMP H/O CVA Coccaine use DM PLAN: Cont trach collar Aerosol nebs cont TF Seraquel 50 mg bid Stable on Trach collar SQ Heparin. Master Krause MD Jul 07, 2016 17:17
[2016-07-08] VITALS (8 sets, daily range): BP systolic 150–181; BP diastolic 66–92; PULSE 77–110; RESP 17–20; TEMP 97.6–98.9; O2SAT 95–100
[2016-07-08] MEDS: METOPROLOL TARTRATE 25 MG TAB PO/NG SCH ×4 (00:40→17:06)
[2016-07-08] MEDS: INSULIN NovoLIN REGULAR SUPPLEMENTAL SCALE SQ SCH ×2 (03:00→09:00)
[2016-07-08] MEDS: HEPARIN SODIUM - SQ 10,000 UNITS/ML VIAL SQ SCH ×2 (03:28→13:26)
[2016-07-08] MEDS: CHLORHEXIDINE GLUCONATE 2 % 1 PACK (2 CLOTHS) TOP SCH (03:29)
[2016-07-08] MEDS: CHLORHEXIDINE 0.12% (ORAL KIT) 15 ML CUP MT SCH ×2 (07:44→22:02)
[2016-07-08 09:18] LABS: POTASSIUM 3.9 MEQ/L (3.5-5.1)
[2016-07-08 09:20] LABS: AUTOMATED NEUTROPHIL # 5.2 TH/MM3 (1.8-7.7); BASOPHIL # 0.1 TH/MM3 (0-0.2); EOSINOPHIL # 0.1 TH/MM3 (0-0.4); EOSINOPHIL % 0.9 % (0.0-4.0); HEMATOCRIT 32.3 % (39.0-51.0); HEMO FLAGS DIFF FINAL; LYMPH % 10.4 % (9.0-44.0); LYMPHOCYTE # 0.8 TH/MM3 (1.0-4.8); MEAN CELL VOLUME 92.2 FL (80.0-100.0); MEAN CORPUSCULAR HEMOGLOBIN 30.4 PG (27.0-34.0); MONO % 17.1 % (0.0-8.0); NEUT % 70.6 % (16.0-70.0); PLATELET COUNT 252 TH/MM3 (150-450); RED BLOOD COUNT 3.51 MIL/MM3 (4.50-5.90); RED CELL DISTRIBUTION WIDTH 16.3 % (11.6-17.2); WHITE BLOOD COUNT 7.4 TH/MM3 (4.0-11.0)
[2016-07-08] MEDS: QUEtiapine FUMARATE 25 MG TAB PO SCH ×2 (10:09→22:01)
[2016-07-08] MEDS: hydrALAZINE HCL 100 MG TAB PO SCH ×3 (10:09→17:06)
[2016-07-08] MEDS: LANSOPRAZOLE SOLUTAB 30 MG TAB NG SCH (10:09)
[2016-07-08] MEDS: NEOMYCIN/POLYMYXIN/BACITRACIN OINT 15 GM TUBE TOPICAL SCH ×2 (10:10→22:03)
[2016-07-08] MEDS: cloNIDine HCL 0.1 MG TAB PO SCH ×3 (10:10→17:06)
[2016-07-08] MEDS: DOCUSATE SODIUM 100 MG/10 ML UDC PO SCH ×2 (10:10→22:01)
[2016-07-08] MEDS: SODIUM CHLORIDE 0.9% FLUSH 5 ML FLUSH IV FLUSH SCH ×2 (10:10→22:02)
--- NOTE | 2016-07-08 10:45 | HHI.PR ---
Subjective Remarks Follow-up cardiac arrest/encephalopathy/end-stage renal disease on HD/ hyperkalemia 07/04/16-patient seen and examined, follows commands alert no acute event overnight. BP slightly up and afebrile 07/05/16-patient seen and examined. No acute event overnight. Resting. Per nurse report, patient is requesting to have his diet changed 07/06/16-patient seen and examined, stable, no acute event overnight, afebrile. 07/07/16-patient seen and examined; patient has restrains to bilateral lower extremities on top of upper extremities as he became more agitated overnight. This AM , he was somnolent 07/08/16-patient seen and examined, passed swallow eval, no acute event overnight Objective Vitals Vital Signs Date Time Temp Pulse Resp B/P Pulse Ox O2 Delivery O2 Flow Rate FiO2 07/08/16 04:00 97.8 90 20 173/76 100 07/08/16 00:00 97.6 100 20 161/92 98 07/07/16 20:00 Room Air 07/07/16 20:00 98.2 90 20 148/75 97 07/07/16 20:00 103 07/07/16 16:00 97.8 102 18 173/78 97 07/07/16 12:00 97.9 81 18 165/77 97 I/O 07/07/16 07/07/16 07/07/16 07/08/16 07/08/16 07/08/16 07:00 15:00 23:00 07:00 15:00 23:00 Intake Total 0 ml 1182 ml 632 ml Output Total 0 ml 2000 ml Balance 0 ml 1182 ml -2000 ml 632 ml Intake Oral 0 ml Tube Feeding 1182 ml 632 ml Output Urine Total 0 ml Hemodialysis 2000 ml # Voids 0 1 # Bowel Movements 0 0 Result Diagram: 07/08/1681707/08/16817 Objective Remarks GENERAL: NAD and currently in a position restrains to all 4 extremities SKIN: Warm and dry. HEAD: Normocephalic. EYES: No scleral icterus. No injection or drainage. NECK: Supple, trachea midline. No JVD or lymphadenopathy. CARDIOVASCULAR: Regular rate and rhythm with II/ YEYO RESPIRATORY: Breath sounds equal bilaterally. No accessory muscle use. GASTROINTESTINAL: Abdomen soft, non-tender, nondistended. PEG tube in place MUSCULOSKELETAL: No cyanosis, or edema. BACK: Nontender without obvious deformity. No CVA tenderness. A/P Problem List: (1) Encephalopathy, metabolic ICD Code: G93.41 Status: Acute (2) HCAP (healthcare-associated pneumonia) ICD Code: J18.9 Status: Acute (3) Hyperkalemia, diminished renal excretion ICD Code: E87.5 Status: Acute (4) Hypertension ICD Code: I10 Status: Chronic (5) Hepatitis C ICD Code: B19.20 Status: Acute (6) ESRD on hemodialysis ICD Code: N18.6 Status: Chronic (7) DM (diabetes mellitus) ICD Code: E11.9 Status: Chronic (8) Bleeding from gastrostomy tube site ICD Code: K94.21 Status: Acute Assessment and Plan 60-year-old male with Acute encephalopathy, post cardiac arrest. History of stroke without residual deficit (per friend's report) History of cocaine abuse Posttraumatic stress disorder As needed fentanyl for pain management. s/p Precedex and now on Haldol when necessary for agitation Continue Seroquel 50 mg twice a day EEG 06/12 revealed mild sleep. No seizure activity noted. MRI brain revealed chronic vascular changes. No acute findings Neuro has followed-Dr. Wilks Acute respiratory failure Healthcare associated pneumonia Intubated in ED 05/28/16 following cardiac arrest Tolerating T piece DuoNeb q6 hours. Albuterol q2 prn. Ventilator Bundle. s/p trach 06/[address] Bearden Cardiac arrest, secondary to hyperkalemia Pulmonary edema Nonischemic cardiomyopathy secondary to HTN, cocaine abuse Hypertension Elevated Troponin: ? NSTEMI Continue home meds: Hydralazine 25 tid. Clonidine 0.1 tid., Lopressor 25mg Q6 ( 100 mg twice a day at home) ASA 81 mg daily Echo 05/31: EF 25-30%, no RWMA. Mild MR/TR. MEGAN 36 mmHg cardiac cath 12/09/2012 - EF 40%, normal coronaries. Elevated troponin, cardiac arrest. Per cardiology-no intervention planned. Hepatitis C Elevated LFT resolving Free air - likely secondary to EGD/tube feeding insufflation Daily TF-Nepro@50ml/hr. Monitor LFT's US liver: Bilateral pleural effusions. Thick-walled gallbladder with minimal pericholecystic fluid. Minimal ascites. Echogenic atrophic right kidney. Mild nonspecific prominence of the main pancreatic duct. status post suture by Dr. Zander Tabares. No bleeding actively from PEG site currently Prevacid for GI prophylaxis Colace for bowel regimen Tube feed was tray as patient passed swallow eval ESRD Acute severe hyperkalemia - resolved Hypophosphatemia Intermittent hemodialysis per nephrology (Dr. Francisco) Emergent HD 05/28 due to potassium of 6.8 with bradycardia and cardiac arrest. Monitor renal function, I/O's, avoid nephrotoxins. Continue PhosLo 667 mg 3 times a day. Acute healthcare associated pneumonia s/p Zosyn 2.25 g IV every 8 hours 05/29 - 06/12. Azithro x 10 days.05/28 nasal washing negative for Influenza. continue to monitor Leukocytosis, repeat CBC in a.m. and consider panculture Normocytic Anemia requiring transfusion, previously from acute blood loss from PEG tube 3 unit prbc, 1 FFP, 1 plt. DDAVP Coags within normal limits Received 16 mg DDAVP and [address] Kevin/hematology followed. Von Willebrand antigen factor normal PROPH: Heparin subcutaneous/ Prevacid 30 mg daily for stress ulcer prophylaxis. Doppler US LE negative for DVT Continue with current care Problem Qualifiers (1) Hypertension: Qualified Code: I10 - Essential hypertension (2) DM (diabetes mellitus): Qualified Code: E11.22 - Type 2 diabetes mellitus with diabetic chronic kidney disease, unspecified CKD stage, unspecified group home insulin use status Ozzie Lopez MD Jul 08, 2016 10:45
--- NOTE | 2016-07-08 12:46 | HHI.NPPN ---
Subjective General Problems: Anemia Renal Failure: Chronic, End Stage Renal Disease Additional Remarks Patient is on O2 awake not in distress. Review of Systems General General Remarks unable to evaluate due to mental status Objective Data Data 07/07/16 07/08/16 19:00 07:00 Intake Total 1182 ml 632 ml Output Total 2000 ml Balance -818 ml 632 ml Tube Feeding 1182 ml 632 ml Hemodialysis 2000 ml # Voids 1 # Bowel Movements 0 Vital Signs Date Time Temp Pulse Resp B/P Pulse Ox O2 Delivery O2 Flow Rate FiO2 07/08/16 11:22 96 T-piece 21 07/08/16 08:00 97 Room Air 07/08/16 04:00 97.8 90 20 173/76 100 07/08/16 00:00 97.6 100 20 161/92 98 07/07/16 20:00 Room Air 07/07/16 20:00 98.2 90 20 148/75 97 07/07/16 20:00 103 07/07/16 16:00 97.8 102 18 173/78 97 -: 07/08/16 0818 07/08/16 0818 Tubes & Lines Comment trach, PEG Drip Comment Precedex Physical Exam General Appearance: No Acute Distress Eyes Eye Exam: Pupils Equal, Pupils Reactive Neck Neck Exam: Neck Supple Pulmonary Resp Exam: Breath Sounds Equal, Crackles, Decreased Bases, Diminished Breath Sounds Cardiology CV Exam: Regular, Normal Sinus Rhythm, Good Perfusion Gastrointestinal/Abdomen GI Exam: Soft, Non-Tender, Bowel Sounds Present, Non-Distended Extremeties Extremities Exam: Trace Edema Neurologic Neuro Exam: Alert Assessment/Plan Discussed Condition With: Patient Assessment Summary: Anemia of CKD, Hypertension, End Stage Renal Disease Electrolyte Assessment: Hypocalcemia Problem List: (1) ESRD on dialysis Plan: Continue dialysis T-Th-Mon, on Epogen for anemia. next HD Tomorrow Continue HD TTS. Encephalopathy more awake had HD yesterday 2 L UF (2) Anemia Plan: Last hemoglobin stable (3) Hypertension Plan: BP stable. He is on metoprolol, hydralazine, clonidine with hold parameters (4) DM (diabetes mellitus) Plan: continue insulin coverage goal to maintain blood glucose between 140 and 180 off D10 , tube feeding was resumed (5) NSTEMI (non-ST elevated myocardial infarction) Plan: Troponin I elevated post cardiac arrest, chest compressions. he had catheterization in January 2016, normal coronary arteries (6) Elevated LFTs Plan: improved. (7) Cocaine abuse Plan: Cessation has been recommended. (8) Encephalopathy Plan: s/p trach placement. on Trach o2 Encephalopathy improving. Problem Qualifiers (1) Anemia: Qualified Code: D64.9 - Anemia, unspecified type (2) Hypertension: Qualified Code: I10 - Essential hypertension (3) DM (diabetes mellitus): Qualified Code: E11.22 - Type 2 diabetes mellitus with diabetic chronic kidney disease, unspecified CKD stage, unspecified nursing home insulin use status Willy Arellano MD Jul 08, 2016 12:46
--- NOTE | 2016-07-08 19:07 | HHI.PR ---
Subjective Remarks 60 YOAA male with RF, trach, ESRDs/p cardiac arrest On Trach mask Small amount of trach secretions Afebrile, no new complaint. Tolerates TF and PO Fiancee at [facility], talks to her Objective Vital Signs Vital Signs Date Time Temp Pulse Resp B/P Pulse Ox O2 Delivery O2 Flow Rate FiO2 07/08/16 18:00 97 Room Air 07/08/16 16:00 97.9 88 18 158/68 96 07/08/16 12:00 98.3 98 18 181/86 100 07/08/16 12:00 98 Room Air 07/08/16 11:22 96 T-piece 21 07/08/16 08:00 98.1 108 18 165/78 95 07/08/16 08:00 97 Room Air 07/08/16 08:00 110 07/08/16 04:00 97.8 90 20 173/76 100 07/08/16 00:00 97.6 100 20 161/92 98 07/07/16 20:00 Room Air 07/07/16 20:00 98.2 90 20 148/75 97 07/07/16 20:00 103 I/O 07/07/16 07/07/16 07/07/16 07/08/16 07/08/16 07/08/16 07:00 15:00 23:00 07:00 15:00 23:00 Intake Total 0 ml 1182 ml 632 ml Output Total 0 ml 2000 ml 0 ml Balance 0 ml 1182 ml -2000 ml 632 ml 0 ml Intake Oral 0 ml Tube Feeding 1182 ml 632 ml Output Urine Total 0 ml 0 ml Hemodialysis 2000 ml # Voids 0 1 0 # Bowel Movements 0 0 Result Diagram: 07/08/16 0818 07/08/16 0818 Objective Remarks GENERAL: WBWN AA male, no distress SKIN: Warm and dry. HEAD: Normocephalic. EYES: No scleral icterus. No injection or drainage. NECK: Supple, trachea midline. No JVD or lymphadenopathy. Has Trach CARDIOVASCULAR: Regular rate and rhythm without murmurs, gallops, or rubs. RESPIRATORY: Breath sounds equal bilaterally. No accessory muscle use. GASTROINTESTINAL: Abdomen soft, non-tender, nondistended. PEG Tube in place MUSCULOSKELETAL: No cyanosis, or edema. BACK: Nontender without obvious deformity. No CVA tenderness. A/P Assessment and Plan RF, s/p Trach ESRD Non-ischemic CMP H/O CVA Coccaine use DM PLAN: Cont trach collar Aerosol nebs cont TF Seraquel 50 mg bid Stable on Trach collar SQ Heparin. Encourage po Avaialable prn over weekend Master Krause MD Jul 08, 2016 19:06
[2016-07-09] VITALS (8 sets, daily range): BP systolic 121–169; BP diastolic 63–86; PULSE 73–93; RESP 16–24; TEMP 97.5–98.4; O2SAT 92–100
[2016-07-09] MEDS: HEPARIN SODIUM - SQ 10,000 UNITS/ML VIAL SQ SCH ×2 (01:41→14:00)
[2016-07-09] MEDS: CHLORHEXIDINE GLUCONATE 2 % 1 PACK (2 CLOTHS) TOP SCH (03:40)
[2016-07-09] MEDS: METOPROLOL TARTRATE 25 MG TAB PO/NG SCH ×5 (04:59→23:36)
[2016-07-09] MEDS: CHLORHEXIDINE 0.12% (ORAL KIT) 15 ML CUP MT SCH ×2 (08:00→20:00)
[2016-07-09] MEDS: NEOMYCIN/POLYMYXIN/BACITRACIN OINT 15 GM TUBE TOPICAL SCH ×2 (09:00→23:35)
[2016-07-09] MEDS: DOCUSATE SODIUM 100 MG/10 ML UDC PO SCH ×2 (09:13→23:35)
[2016-07-09] MEDS: QUEtiapine FUMARATE 25 MG TAB PO SCH ×2 (09:13→23:35)
[2016-07-09] MEDS: LANSOPRAZOLE SOLUTAB 30 MG TAB NG SCH (09:13)
[2016-07-09] MEDS: cloNIDine HCL 0.1 MG TAB PO SCH ×3 (09:13→18:00)
[2016-07-09] MEDS: SODIUM CHLORIDE 0.9% FLUSH 5 ML FLUSH IV FLUSH SCH ×2 (09:14→23:33)
[2016-07-09] MEDS: hydrALAZINE HCL 100 MG TAB PO SCH ×3 (09:15→18:00)
--- NOTE | 2016-07-09 12:45 | HHI.PR ---
Subjective Remarks Patient has no new complaints. Discuss with his fianc at bedside. He is more awake and more cooperative. Objective Vitals Vital Signs Date Time Temp Pulse Resp B/P Pulse Ox O2 Delivery O2 Flow Rate FiO2 07/09/16 12:00 97.5 81 20 121/66 92 07/09/16 09:10 99 T-piece 21 07/09/16 06:29 82 07/09/16 04:00 98.4 89 16 169/86 100 07/09/16 00:00 98.0 93 17 155/70 96 07/08/16 21:13 97 21 07/08/16 20:00 98.9 77 17 150/66 98 07/08/16 18:00 97 Room Air 07/08/16 16:00 97.9 88 18 158/68 96 I/O 07/08/16 07/08/16 07/08/16 07/09/16 07/09/16 07/09/16 07:00 15:00 23:00 07:00 15:00 23:00 Intake Total 632 ml 0 ml 0 ml Output Total 0 ml 0 ml Balance 632 ml 0 ml 0 ml 0 ml Intake Oral 0 ml 0 ml Tube Feeding 632 ml Output Urine Total 0 ml 0 ml # Voids 1 0 0 Result Diagram: 07/08/16 0818 07/08/16 0818 Imaging Last Impressions Chest X-Ray 06/23/16 0600 Signed Impressions: Service Date/Time: June 03:02 - CONCLUSION: No significant change. Minh Aponte MD Abdomen X-Ray 06/16/16 0000 Signed Impressions: Service Date/Time: May 09:12 - CONCLUSION: Apparent appropriate placement of gastric tube placement. Amaris Rosenberg MD Abdomen/Pelvis CT 06/15/16 0000 Signed Impressions: Service Date/Time: Wednesday, June 15, 2016 13:16 - CONCLUSION: Significant free intraperitoneal air. Consolidative changes in both bases with small bilateral pleural effusions. Mikhail Abrams MD FACR Brain MRI 06/10/16 0000 Signed Impressions: Service Date/Time: Friday, June 10, 2016 20:14 - CONCLUSION: 1. Mild chronic-appearing ischemic changes in the periventricular white matter slightly progressed from 2014. No recent infarct, mass effect or midline shift. No hydrocephalus. Lakhwinder Pringle MD Liver Ultrasound 06/01/16 0000 Signed Impressions: Service Date/Time: Wednesday, June 01, 2016 15:38 - CONCLUSION: 1. Bilateral pleural effusions. 2. Thick-walled gallbladder with minimal pericholecystic fluid. If there is clinical concern for acute cholecystitis a hepatobiliary scan may be helpful to confirm cystic duct obstruction. 3. Minimal ascites. 4. Echogenic atrophic right kidney. 5. Mild nonspecific prominence of the main pancreatic duct. Enzo Price MD Head CT 05/29/16 0000 Signed Impressions: Service Date/Time: Sunday, May 29, 2016 03:03 - CONCLUSION: Age- appropriate atrophy, stable from prior in September 2015. No acute findings. Earnest Torre MD Lower Extremity Ultrasound 05/28/16 0000 Signed Impressions: Service Date/Time: Saturday, May 28, 2016 22:27 - CONCLUSION: Negative for deep venous thrombosis bilateral lower extremity. Earnest Torre MD Objective Remarks GENERAL: Patient appear older than stated age. No apparent distress. CARDIOVASCULAR: Normal rate and regular rhythm without murmurs, gallops, or rubs. RESPIRATORY: Good respiratory efforts. Breath sounds equal and clear to auscultation bilaterally. GASTROINTESTINAL: Abdomen soft, non-tender, non-distended. Normal active bowel sounds MUSCULOSKELETAL: Extremities without cyanosis, or edema. NEURO: Awake and alert. Moves all ext x4. Will only say a few words. PSYCH: Calm A/P Problem List: (1) Encephalopathy, metabolic ICD Code: G93.41 Status: Acute (2) HCAP (healthcare-associated pneumonia) ICD Code: J18.9 Status: Acute (3) Hyperkalemia, diminished renal excretion ICD Code: E87.5 Status: Acute (4) Hypertension ICD Code: I10 Status: Chronic (5) Hepatitis C ICD Code: B19.20 Status: Acute (6) ESRD on hemodialysis ICD Code: N18.6 Status: Chronic (7) DM (diabetes mellitus) ICD Code: E11.9 Status: Chronic (8) Bleeding from gastrostomy tube site ICD Code: K94.21 Status: Acute Assessment and Plan 60-year-old male with Acute encephalopathy, post cardiac arrest. History of stroke without residual deficit (per friend's report) History of cocaine abuse Posttraumatic stress disorder Haldol when necessary for agitation Continue Seroquel 50 mg twice a day EEG 06/12 revealed mild sleep. No seizure activity noted. MRI brain revealed chronic vascular changes. No acute findings Neuro has followed-Dr. Wilks Acute respiratory failure Healthcare associated pneumonia Intubated in ED 05/28/16 following cardiac arrest Tolerating T piece DuoNeb q6 hours. Albuterol q2 prn. Ventilator Bundle. s/p trach 06/[address] Bearden Cardiac arrest, secondary to hyperkalemia Pulmonary edema Nonischemic cardiomyopathy secondary to HTN, cocaine abuse Hypertension Elevated Troponin: ? NSTEMI Continue home meds: Hydralazine 25 tid. Clonidine 0.1 tid., Lopressor 25mg Q6 ( 100 mg twice a day at home) ASA 81 mg daily Echo 05/31: EF 25-30%, no RWMA. Mild MR/TR. MEGAN 36 mmHg cardiac cath 12/09/2012 - EF 40%, normal coronaries. Elevated troponin, cardiac arrest. Per cardiology-no intervention planned. Hepatitis C Elevated LFT resolving Free air - likely secondary to EGD/tube feeding insufflation Daily TF-Nepro@50ml/hr. Monitor LFT's US liver: Bilateral pleural effusions. Thick-walled gallbladder with minimal pericholecystic fluid. Minimal ascites. Echogenic atrophic right kidney. Mild nonspecific prominence of the main pancreatic duct. Prevacid for GI prophylaxis Colace for bowel regimen Tube feed with tray as patient passed swallow eval ESRD Acute severe hyperkalemia - resolved Hypophosphatemia Intermittent hemodialysis per nephrology (Dr. Francisco) Emergent HD 05/28 due to potassium of 6.8 with bradycardia and cardiac arrest. Monitor renal function, I/O's, avoid nephrotoxins. Continue PhosLo 667 mg 3 times a day. Healthcare associated pneumonia s/p Zosyn 2.25 g IV every 8 hours 05/29 - 06/12. Azithro x 10 days.05/28 nasal washing negative for Influenza. continue to monitor off antibiotics. Normocytic Anemia requiring transfusion, previously from acute blood loss from PEG tube 3 unit prbc, 1 FFP, 1 plt. DDAVP Coags within normal limits Received 16 mg DDAVP and [address] Kevin/hematology followed. Von Willebrand antigen factor normal Prophylaxis: Heparin subcutaneous/ Prevacid 30 mg daily for stress ulcer prophylaxis. Problem Qualifiers (1) Hypertension: Qualified Code: I10 - Essential hypertension (2) DM (diabetes mellitus): Qualified Code: E11.22 - Type 2 diabetes mellitus with diabetic chronic kidney disease, unspecified CKD stage, unspecified fci insulin use status eLa Andrews MD Jul 09, 2016 12:45
--- NOTE | 2016-07-09 15:15 | HHI.NPPN ---
Subjective General Problems: Anemia Renal Failure: Chronic, End Stage Renal Disease Additional Remarks Patient is on O2 awake not in distress. Review of Systems General General Remarks unable to evaluate due to mental status Objective Data Data 07/08/16 07/09/16 19:00 07:00 Intake Total 0 ml Output Total 0 ml 0 ml Balance 0 ml 0 ml Intake Oral 0 ml Output Urine Total 0 ml 0 ml # Voids 0 0 Vital Signs Date Time Temp Pulse Resp B/P Pulse Ox O2 Delivery O2 Flow Rate FiO2 07/09/16 12:00 97.5 81 20 121/66 92 07/09/16 09:10 99 T-piece 21 07/09/16 06:29 82 07/09/16 04:00 98.4 89 16 169/86 100 07/09/16 00:00 98.0 93 17 155/70 96 07/08/16 21:13 97 21 07/08/16 20:00 98.9 77 17 150/66 98 07/08/16 18:00 97 Room Air 07/08/16 16:00 97.9 88 18 158/68 96 -: 07/08/16 0818 07/08/16 0818 Tubes & Lines Comment trach, PEG Drip Comment Precedex Physical Exam General Appearance: No Acute Distress Eyes Eye Exam: Pupils Equal, Pupils Reactive Neck Neck Exam: Neck Supple Pulmonary Resp Exam: Breath Sounds Equal, Crackles, Decreased Bases, Diminished Breath Sounds Cardiology CV Exam: Regular, Normal Sinus Rhythm, Good Perfusion Gastrointestinal/Abdomen GI Exam: Soft, Non-Tender, Bowel Sounds Present, Non-Distended Extremeties Extremities Exam: Trace Edema Neurologic Neuro Exam: Alert Assessment/Plan Discussed Condition With: Patient Assessment Summary: Anemia of CKD, Hypertension, End Stage Renal Disease Electrolyte Assessment: Hypocalcemia Problem List: (1) ESRD on dialysis Plan: Continue dialysis T-Th-Sat, on Epogen for anemia. seen during HD Today UF 2 L Continue HD TTS. Encephalopathy more awake (2) Anemia Plan: Last hemoglobin stable (3) Hypertension Plan: BP stable. He is on metoprolol, hydralazine, clonidine with hold parameters (4) DM (diabetes mellitus) Plan: continue insulin coverage goal to maintain blood glucose between 140 and 180 off D10 , tube feeding was resumed (5) NSTEMI (non-ST elevated myocardial infarction) Plan: Troponin I elevated post cardiac arrest, chest compressions. he had catheterization in January 2016, normal coronary arteries (6) Elevated LFTs Plan: improved. (7) Cocaine abuse Plan: Cessation has been recommended. (8) Encephalopathy Plan: s/p trach placement. on Trach o2 Encephalopathy improving. Problem Qualifiers (1) Anemia: Qualified Code: D64.9 - Anemia, unspecified type (2) Hypertension: Qualified Code: I10 - Essential hypertension (3) DM (diabetes mellitus): Qualified Code: E11.22 - Type 2 diabetes mellitus with diabetic chronic kidney disease, unspecified CKD stage, unspecified detention insulin use status Willy Arellano MD Jul 09, 2016 15:15
[2016-07-09] MEDS: SODIUM CHLOR 0.9% 1000 ML INJ 1,000 ML IV PRN (16:25)
[2016-07-09] MEDS: EPOETIN ALFA 10,000 UNITS/ML VIAL IV PRN (16:25)
[2016-07-09] MEDS: GELATIN 12 MM/7 MM FOAM TOP PRN (16:26)
[2016-07-10] VITALS (10 sets, daily range): BP systolic 154–170; BP diastolic 70–89; PULSE 74–95; RESP 19–20; TEMP 97–98; O2SAT 96–98
[2016-07-10] MEDS: HEPARIN SODIUM - SQ 10,000 UNITS/ML VIAL SQ SCH ×2 (03:54→14:09)
[2016-07-10] MEDS: CHLORHEXIDINE GLUCONATE 2 % 1 PACK (2 CLOTHS) TOP SCH (03:55)
[2016-07-10] MEDS: METOPROLOL TARTRATE 25 MG TAB PO/NG SCH ×4 (06:08→22:16)
[2016-07-10] MEDS: DOCUSATE SODIUM 100 MG/10 ML UDC PO SCH ×2 (08:21→22:16)
[2016-07-10] MEDS: LANSOPRAZOLE SOLUTAB 30 MG TAB NG SCH (08:21)
[2016-07-10] MEDS: hydrALAZINE HCL 100 MG TAB PO SCH ×3 (08:21→18:00)
[2016-07-10] MEDS: QUEtiapine FUMARATE 25 MG TAB PO SCH ×2 (08:22→22:16)
[2016-07-10] MEDS: SODIUM CHLORIDE 0.9% FLUSH 5 ML FLUSH IV FLUSH SCH ×2 (08:22→22:15)
[2016-07-10] MEDS: cloNIDine HCL 0.1 MG TAB PO SCH ×3 (08:22→19:30)
[2016-07-10 10:06] LABS: HEMATOCRIT 33.2 % (39.0-51.0); MEAN CELL VOLUME 90.6 FL (80.0-100.0); MEAN CORPUSCULAR HEMOGLOBIN 30.2 PG (27.0-34.0); MEAN CORPUSCULAR HGB CONC 33.3 % (32.0-36.0); PLATELET COUNT 289 TH/MM3 (150-450); RED BLOOD COUNT 3.67 MIL/MM3 (4.50-5.90); RED CELL DISTRIBUTION WIDTH 16.1 % (11.6-17.2); REVIEW FLAG FINAL; WHITE BLOOD COUNT 7.9 TH/MM3 (4.0-11.0)
[2016-07-10 10:41] LABS: BICARBONATE 32.3 MEQ/L (21.0-32.0); POTASSIUM 4.2 MEQ/L (3.5-5.1)
--- NOTE | 2016-07-10 12:21 | HHI.PR ---
Subjective Remarks Patient is awake and alert. Not able to communicate well due to trach. He has no complaints. Objective Vitals Vital Signs Date Time Temp Pulse Resp B/P Pulse Ox O2 Delivery O2 Flow Rate FiO2 07/10/16 09:17 97 T-piece 6.00 21 07/10/16 07:35 97.0 95 19 167/89 98 07/10/16 04:00 98.0 84 20 170/80 98 07/10/16 00:32 82 07/10/16 00:32 97 Room Air 6.00 07/10/16 00:00 97.3 85 20 160/70 97 07/09/16 20:00 97.6 85 24 140/63 96 07/09/16 17:00 97.8 92 18 127/67 96 I/O 07/09/16 07/09/16 07/09/16 07/10/16 07/10/16 07/10/16 07:00 15:00 23:00 07:00 15:00 23:00 Intake Total 0 ml 760 ml 0 ml Output Total 0 ml 2000 ml 0 ml Balance 0 ml 760 ml -2000 ml 0 ml Intake Oral 0 ml 240 ml 0 ml Tube Feeding 400 ml Other 120 ml Output Urine Total 0 ml 0 ml Hemodialysis 2000 ml # Voids 0 1 # Bowel Movements 0 0 Result Diagram: 07/10/16 0839 07/10/16 0839 Objective Remarks GENERAL: Patient appear older than stated age. No apparent distress. Neck: Trach in place. CARDIOVASCULAR: Normal rate and regular rhythm without murmurs, gallops, or rubs. RESPIRATORY: Good respiratory efforts. Breath sounds equal and clear to auscultation bilaterally. GASTROINTESTINAL: Abdomen soft, non-tender, non-distended. Normal active bowel sounds MUSCULOSKELETAL: Extremities without cyanosis, or edema. NEURO: Awake and alert. Moves all ext x4. Will only say a few words. PSYCH: Calm A/P Problem List: (1) Encephalopathy, metabolic ICD Code: G93.41 Status: Acute (2) HCAP (healthcare-associated pneumonia) ICD Code: J18.9 Status: Acute (3) Hyperkalemia, diminished renal excretion ICD Code: E87.5 Status: Acute (4) Hypertension ICD Code: I10 Status: Chronic (5) Hepatitis C ICD Code: B19.20 Status: Acute (6) ESRD on hemodialysis ICD Code: N18.6 Status: Chronic (7) DM (diabetes mellitus) ICD Code: E11.9 Status: Chronic (8) Bleeding from gastrostomy tube site ICD Code: K94.21 Status: Acute Assessment and Plan 60-year-old male with Acute encephalopathy, post cardiac arrest. History of stroke without residual deficit (per friend's report) History of cocaine abuse Posttraumatic stress disorder Haldol when necessary for agitation Continue Seroquel 50 mg twice a day EEG 06/12 revealed mild sleep. No seizure activity noted. MRI brain revealed chronic vascular changes. No acute findings Neuro has followed-Dr. Wilks Acute respiratory failure Healthcare associated pneumonia Intubated in ED 05/28/16 following cardiac arrest Tolerating T piece DuoNeb q6 hours. Albuterol q2 prn. s/p trach 06/[address] Bearden Cardiac arrest, secondary to hyperkalemia Pulmonary edema Nonischemic cardiomyopathy secondary to HTN, cocaine abuse Hypertension Elevated Troponin: ? NSTEMI Continue home meds: Hydralazine 25 tid. Clonidine 0.1 tid., Lopressor 25mg Q6 ( 100 mg twice a day at home) ASA 81 mg daily Echo 05/31: EF 25-30%, no RWMA. Mild MR/TR. MEGAN 36 mmHg cardiac cath 12/09/2012 - EF 40%, normal coronaries. Elevated troponin, cardiac arrest. Per cardiology-no intervention planned. Hepatitis C Elevated LFT resolving Free air - likely secondary to EGD/tube feeding insufflation Daily TF-Nepro@50ml/hr. Monitor LFT's US liver: Bilateral pleural effusions. Thick-walled gallbladder with minimal pericholecystic fluid. Minimal ascites. Echogenic atrophic right kidney. Mild nonspecific prominence of the main pancreatic duct. Prevacid for GI prophylaxis Colace for bowel regimen Tube feed with tray as patient passed swallow eval ESRD Acute severe hyperkalemia - resolved Hypophosphatemia Intermittent hemodialysis per nephrology (Dr. Francisco) Emergent HD 05/28 due to potassium of 6.8 with bradycardia and cardiac arrest. Monitor renal function, I/O's, avoid nephrotoxins. Continue PhosLo 667 mg 3 times a day. Healthcare associated pneumonia s/p Zosyn 2.25 g IV every 8 hours 05/29 - 06/12. Azithro x 10 days.1/7 nasal washing negative for Influenza. continue to monitor off antibiotics. Normocytic Anemia requiring transfusion, previously from acute blood loss from PEG tube 3 unit prbc, 1 FFP, 1 plt. DDAVP Coags within normal limits Received 16 mg DDAVP and [address] Kevin/hematology followed. Von Willebrand antigen factor normal Prophylaxis: Heparin subcutaneous/ Prevacid 30 mg daily for stress ulcer prophylaxis. Discharge Planning Patient will need placement. Case management following. Problem Qualifiers (1) Hypertension: Qualified Code: I10 - Essential hypertension (2) DM (diabetes mellitus): Qualified Code: E11.22 - Type 2 diabetes mellitus with diabetic chronic kidney disease, unspecified CKD stage, unspecified residential insulin use status Lea Andrews MD Jul 10, 2016 12:21
--- NOTE | 2016-07-10 17:00 | HHI.NPPN ---
Subjective General Problems: Anemia Renal Failure: Chronic, End Stage Renal Disease Additional Remarks Patient is Alert oriented Review of Systems General General Remarks unable to evaluate due to mental status Objective Data Data 07/09/16 07/10/16 19:00 07:00 Intake Total 760 ml 0 ml Output Total 2000 ml 0 ml Balance -1240 ml 0 ml Intake Oral 240 ml 0 ml Tube Feeding 400 ml Other 120 ml Output Urine Total 0 ml Hemodialysis 2000 ml # Voids 0 1 # Bowel Movements 0 Vital Signs Date Time Temp Pulse Resp B/P Pulse Ox O2 Delivery O2 Flow Rate FiO2 07/10/16 15:25 97.8 88 19 165/72 98 07/10/16 11:40 97.7 82 19 154/70 98 07/10/16 09:17 97 T-piece 6.00 21 07/10/16 08:00 74 07/10/16 08:00 Room Air 21 07/10/16 07:35 97.0 95 19 167/89 98 07/10/16 04:00 98.0 84 20 170/80 98 07/10/16 00:32 82 07/10/16 00:32 97 Room Air 6.00 07/10/16 00:00 97.3 85 20 160/70 97 07/09/16 20:00 97.6 85 24 140/63 96 07/09/16 17:00 97.8 92 18 127/67 96 -: 07/10/16 0839 07/10/16 0839 Tubes & Lines Comment trach, PEG Drip Comment Precedex Physical Exam General Appearance: No Acute Distress Eyes Eye Exam: Pupils Equal, Pupils Reactive Neck Neck Exam: Neck Supple Pulmonary Resp Exam: Breath Sounds Equal, Crackles, Decreased Bases, Diminished Breath Sounds Cardiology CV Exam: Regular, Normal Sinus Rhythm, Good Perfusion Gastrointestinal/Abdomen GI Exam: Soft, Non-Tender, Bowel Sounds Present, Non-Distended Extremeties Extremities Exam: Trace Edema Neurologic Neuro Exam: Alert Assessment/Plan Discussed Condition With: Patient Assessment Summary: Anemia of CKD, Hypertension, End Stage Renal Disease Electrolyte Assessment: Hypocalcemia Problem List: (1) ESRD on dialysis Plan: Continue dialysis T-Th-Sat, on Epogen for anemia. HD yesterday UF 2 L Continue HD TTS. alert and oriented talking to family Dr. Peck to follow (2) Anemia Plan: Last hemoglobin stable (3) Hypertension Plan: BP stable. He is on metoprolol, hydralazine, clonidine with hold parameters (4) DM (diabetes mellitus) Plan: continue insulin coverage goal to maintain blood glucose between 140 and 180 off D10 , tube feeding was resumed (5) NSTEMI (non-ST elevated myocardial infarction) Plan: Troponin I elevated post cardiac arrest, chest compressions. he had catheterization in January 2016, normal coronary arteries (6) Elevated LFTs Plan: improved. (7) Cocaine abuse Plan: Cessation has been recommended. (8) Encephalopathy Plan: s/p trach placement. Encephalopathy resolved Problem Qualifiers (1) Anemia: Qualified Code: D64.9 - Anemia, unspecified type (2) Hypertension: Qualified Code: I10 - Essential hypertension (3) DM (diabetes mellitus): Qualified Code: E11.22 - Type 2 diabetes mellitus with diabetic chronic kidney disease, unspecified CKD stage, unspecified long-term insulin use status Willy Arellano MD Jul 10, 2016 17:00
[2016-07-10] MEDS: CHLORHEXIDINE 0.12% (ORAL KIT) 15 ML CUP MT SCH (20:00)
[2016-07-10] MEDS: NEOMYCIN/POLYMYXIN/BACITRACIN OINT 15 GM TUBE TOPICAL SCH (21:00)
[2016-07-11] VITALS (8 sets, daily range): BP systolic 122–157; BP diastolic 63–80; PULSE 78–88; RESP 12–20; TEMP 97.3–98.1; O2SAT 96–99
[2016-07-11] MEDS: HEPARIN SODIUM - SQ 10,000 UNITS/ML VIAL SQ SCH ×2 (01:35→13:26)
[2016-07-11] MEDS: CHLORHEXIDINE GLUCONATE 2 % 1 PACK (2 CLOTHS) TOP SCH ×2 (04:00→19:58)
[2016-07-11] MEDS: METOPROLOL TARTRATE 25 MG TAB PO/NG SCH ×3 (06:08→18:10)
[2016-07-11 08:54] LABS: HEMATOCRIT 32.4 % (39.0-51.0); MEAN CELL VOLUME 89.2 FL (80.0-100.0); MEAN CORPUSCULAR HEMOGLOBIN 30.2 PG (27.0-34.0); MEAN CORPUSCULAR HGB CONC 33.9 % (32.0-36.0); PLATELET COUNT 219 TH/MM3 (150-450); RED BLOOD COUNT 3.63 MIL/MM3 (4.50-5.90); RED CELL DISTRIBUTION WIDTH 15.9 % (11.6-17.2); REVIEW FLAG FINAL; WHITE BLOOD COUNT 7.1 TH/MM3 (4.0-11.0)
[2016-07-11] MEDS: NEOMYCIN/POLYMYXIN/BACITRACIN OINT 15 GM TUBE TOPICAL SCH ×2 (09:00→21:00)
[2016-07-11] MEDS: cloNIDine HCL 0.1 MG TAB PO SCH ×3 (09:00→18:10)
[2016-07-11 09:21] LABS: BICARBONATE 28.7 MEQ/L (21.0-32.0); POTASSIUM 4.7 MEQ/L (3.5-5.1)
[2016-07-11] MEDS: QUEtiapine FUMARATE 25 MG TAB PO SCH ×2 (10:26→22:39)
[2016-07-11] MEDS: LANSOPRAZOLE SOLUTAB 30 MG TAB NG SCH (10:26)
[2016-07-11] MEDS: SODIUM CHLORIDE 0.9% FLUSH 5 ML FLUSH IV FLUSH SCH ×2 (10:26→22:38)
[2016-07-11] MEDS: DOCUSATE SODIUM 100 MG/10 ML UDC PO SCH ×2 (10:26→21:00)
[2016-07-11] MEDS: hydrALAZINE HCL 100 MG TAB PO SCH ×3 (10:26→18:00)
--- NOTE | 2016-07-11 11:34 | HHI.PR ---
Subjective Remarks late entry. Date of service 07/01/16. patient nonverbal.no changes. Denies pain. Objective Vital Signs Date Time Temp Pulse Resp B/P Pulse Ox O2 Delivery O2 Flow Rate FiO2 07/11/16 10:17 99 Trach Collar 21 07/11/16 08:00 98.0 85 12 157/72 98 07/11/16 04:00 97.3 84 18 122/80 99 07/11/16 01:23 18 07/11/16 00:00 97.3 81 20 134/63 96 07/10/16 22:15 81 07/10/16 22:15 98 Room Air 07/10/16 20:00 97.6 83 20 159/75 97 07/10/16 20:00 96 07/10/16 15:25 97.8 88 19 165/72 98 07/10/16 11:40 97.7 82 19 154/70 98 I/O 07/10/16 07/10/16 07/10/16 07/11/16 07/11/16 07/11/16 07:00 15:00 23:00 07:00 15:00 23:00 Intake Total 640 ml 0 ml 1815 ml Output Total 0 ml Balance 0 ml 640 ml 0 ml 1815 ml Intake Oral 240 ml 0 ml 0 ml Tube Feeding 400 ml 1815 ml Output Urine Total 0 ml # Voids 0 1 # Bowel Movements 0 0 1 Result Diagram: 07/11/16 0758 07/11/16 0758 Objective Remarks GENERAL: patient sitting up in bed. Appears comfortable. Tracheostomy collar in place. no changes on exam SKIN: Warm and dry.tracheostomy in place. HEAD: Normocephalic. EYES: No scleral icterus. No injection or drainage. NECK: Supple, trachea midline. No JVD. CARDIOVASCULAR: Regular rate and rhythm without murmurs, gallops, or rubs. RESPIRATORY: Breath sounds equal bilaterally. No accessory muscle use. GASTROINTESTINAL: Abdomen soft, non-tender, nondistended. MUSCULOSKELETAL: No cyanosis, or edema. BACK: Nontender without obvious deformity. No CVA tenderness. A/P Assessment and Plan //Acute encephalopathy, post cardiac arrest. //History of stroke without residual deficit (per friend's report) //History of cocaine abuse //Posttraumatic stress disorder As needed fentanyl for pain management. Neurologically improving -Continue Seroquel 50 mg twice a day -EEG 06/12 -No seizure activity noted. -MRI brain revealed chronic vascular changes. No acute findings -Neuro has followed-Dr. Wilks RESP: //Acute respiratory failure //Healthcare associated pneumonia Intubated in ED 05/28/16 following cardiac arrest Tolerating T piece DuoNeb q6 hours. Albuterol q2 prn. Ventilator Bundle. s/p trach 06/[address] Bearden -Pulmonology following. Appreciate assistance. CV: //Cardiac arrest, secondary to hyperkalemia //Pulmonary edema //Nonischemic cardiomyopathy secondary to HTN, cocaine abuse //Hypertension //Elevated Troponin: ? NSTEMI Monitor HR and BP keep MAP>65mmHg Continue home meds: Hydralazine 25 tid. Clonidine 0.1 tid., Lopressor 25mg Q6 ( 100 mg twice a day at home) ASA 81 mg daily will be continued. Echo 05/31: EF 25-30%, no RWMA. Mild MR/TR. MEGAN 36 mmHg cardiac cath 12/09/2012 - EF 40%, normal coronaries. -Nephrology adjusted hydralazine on 06/30. -Elevated troponin, cardiac arrest. Per cardiology-no intervention planned. GI: //Hepatitis C //Elevated LFT resolving //Free air - likely secondary to EGD/tube feeding insufflation -Daily TF-Nepro@50ml/hr. Monitor LFT's -US liver: Bilateral pleural effusions. Thick-walled gallbladder with minimal pericholecystic fluid. -Minimal ascites. Echogenic atrophic right kidney. Mild nonspecific prominence of the main pancreatic duct. -status post suture by Dr. Zander Tabares. No bleeding actively from PEG site currently -Continue Prevacid for GI prophylaxis -Continue Colace for bowel regimen FEN/RENAL: //ESRD //Acute severe hyperkalemia - resolved //Hypophosphatemia Intermittent hemodialysis per nephrology (Dr. Francisco) Emergent HD 05/28 due to potassium of 6.8 with bradycardia and cardiac arrest. Monitor renal function, I/O's, avoid nephrotoxins. s/p HD today Continue PhosLo 667 mg 3 times a day. -Nephrology following for hemodialysis. Appreciate assistance. ID: //Acute healthcare associated pneumonia. Resolved. Received Zosyn and azithromycin in the emergency department 05/28. s/p Zosyn 2.25 g IV every 8 hours 05/29 - 06/12. Azithro x 10 days.05/28 nasal washing negative for Influenza. -continue to monitor Pertinent cultures 05/28 - blood cultures 2 - 1 out of 2 corynebacterium not Jk 05/29 Sputum- beta strep not A HEME: //-Normocytic Anemia requiring transfusion, previously from acute blood loss from PEG tube -1 unit prbc, 1 FFP, 1 plt. DDAVP given 06/15 -Given 1 unit PRBC 06/16, additional 1 unit PRBC given 06/23 -Coags within normal limits -Received 16 mg DDAVP and 5000 mg amicar -Hemoglobin stable. Continue to monitor. -Dr. Kevin/hematology followed. Von Willebrand antigen factor normal ENDO: //Diabetes mellitus -cont Insulin sliding scale. Glucose stable. Monitor glucose //PROPH: Heparin subcutaneous/ Prevacid 30 mg daily for stress ulcer prophylaxis. Doppler US LE negative for DVT Discharge Planning transfer ordered to floor on 07/01 Jim Novoa MD Jul 11, 2016 11:34
--- NOTE | 2016-07-11 12:29 | HHI.PR ---
Subjective Remarks Renal functions worse. Patient reports that he is doing okay. Discussed with at bedside. Believe he is improving slowly. Objective Vitals Vital Signs Date Time Temp Pulse Resp B/P Pulse Ox O2 Delivery O2 Flow Rate FiO2 07/11/16 10:17 99 Trach Collar 21 07/11/16 08:00 98.0 85 12 157/72 98 07/11/16 04:00 97.3 84 18 122/80 99 07/11/16 01:23 18 07/11/16 00:00 97.3 81 20 134/63 96 07/10/16 22:15 81 07/10/16 22:15 98 Room Air 07/10/16 20:00 97.6 83 20 159/75 97 07/10/16 20:00 96 07/10/16 15:25 97.8 88 19 165/72 98 I/O 07/10/16 07/10/16 07/10/16 07/11/16 07/11/16 07/11/16 07:00 15:00 23:00 07:00 15:00 23:00 Intake Total 640 ml 0 ml 1815 ml Output Total 0 ml Balance 0 ml 640 ml 0 ml 1815 ml Intake Oral 240 ml 0 ml 0 ml Tube Feeding 400 ml 1815 ml Output Urine Total 0 ml # Voids 0 1 # Bowel Movements 0 0 1 Result Diagram: 07/11/16 0758 07/11/16 0758 Objective Remarks GENERAL: Patient appear older than stated age. No apparent distress. Neck: Trach in place. CARDIOVASCULAR: Normal rate and regular rhythm without murmurs, gallops, or rubs. RESPIRATORY: Good respiratory efforts. Breath sounds equal and clear to auscultation bilaterally. GASTROINTESTINAL: Abdomen soft, non-tender, non-distended. Normal active bowel sounds MUSCULOSKELETAL: Extremities without cyanosis, or edema. NEURO: Awake and alert. Moves all ext x4. Will only say a few words. PSYCH: Calm A/P Problem List: (1) Encephalopathy, metabolic ICD Code: G93.41 Status: Acute (2) HCAP (healthcare-associated pneumonia) ICD Code: J18.9 Status: Acute (3) Hyperkalemia, diminished renal excretion ICD Code: E87.5 Status: Acute (4) Hypertension ICD Code: I10 Status: Chronic (5) Hepatitis C ICD Code: B19.20 Status: Acute (6) ESRD on hemodialysis ICD Code: N18.6 Status: Chronic (7) DM (diabetes mellitus) ICD Code: E11.9 Status: Chronic (8) Bleeding from gastrostomy tube site ICD Code: K94.21 Status: Acute Assessment and Plan 60-year-old male with Acute encephalopathy, post cardiac arrest. History of stroke without residual deficit (per friend's report) History of cocaine abuse Posttraumatic stress disorder Haldol when necessary for agitation Continue Seroquel 50 mg twice a day EEG 06/12 revealed mild sleep. No seizure activity noted. MRI brain revealed chronic vascular changes. No acute findings Neuro previously followed the patient-Dr. Wilks Acute respiratory failure Healthcare associated pneumonia Intubated in ED 05/28/16 following cardiac arrest Tolerating T piece DuoNeb q6 hours. Albuterol q2 prn. s/p trach 06/[address] Bearden Cardiac arrest, secondary to hyperkalemia Pulmonary edema Nonischemic cardiomyopathy secondary to HTN, cocaine abuse Hypertension Elevated Troponin: ? NSTEMI Continue home meds: Hydralazine 25 tid. Clonidine 0.1 tid., Lopressor 25mg Q6 ( 100 mg twice a day at home) ASA 81 mg daily Echo 05/31: EF 25-30%, no RWMA. Mild MR/TR. MEGAN 36 mmHg cardiac cath 12/09/2012 - EF 40%, normal coronaries. Elevated troponin, s/p cardiac arrest. Per cardiology-no intervention planned. Hepatitis C Elevated LFT resolving Free air - likely secondary to EGD/tube feeding insufflation Daily TF-Nepro@50ml/hr. Monitor LFT's US liver: Bilateral pleural effusions. Thick-walled gallbladder with minimal pericholecystic fluid. Minimal ascites. Echogenic atrophic right kidney. Mild nonspecific prominence of the main pancreatic duct. Prevacid for GI prophylaxis Colace for bowel regimen Tube feed with tray as patient passed swallow eval ESRD Acute severe hyperkalemia - resolved Hypophosphatemia Intermittent hemodialysis per nephrology (Dr. Francisco) Emergent HD 05/28 due to potassium of 6.8 with bradycardia and cardiac arrest. Renal functions worse today. No accurate I/O. Further plans per nephrology. Continue PhosLo 667 mg 3 times a day. Healthcare associated pneumonia s/p Zosyn 2.25 g IV every 8 hours 05/29 - 06/12. Azithro x 10 days.05/28 nasal washing negative for Influenza. continue to monitor off antibiotics. Normocytic Anemia requiring transfusion, previously from acute blood loss from PEG tube 3 unit prbc, 1 FFP, 1 plt. DDAVP Coags within normal limits Received 16 mg DDAVP and [address] Kevin/hematology followed. Von Willebrand antigen factor normal Prophylaxis: Heparin subcutaneous/ Prevacid 30 mg daily for stress ulcer prophylaxis. Discharge Planning Patient will need placement. Case management following. Problem Qualifiers (1) Hypertension: Qualified Code: I10 - Essential hypertension (2) DM (diabetes mellitus): Qualified Code: E11.22 - Type 2 diabetes mellitus with diabetic chronic kidney disease, unspecified CKD stage, unspecified penitentiary insulin use status Lea Andrews MD Jul 11, 2016 12:29
--- NOTE | 2016-07-11 15:41 | HHI.HCPN ---
Reason for visit a. To assist with evaluation and management of symptoms including: dyspnea, encephalopathy b. To assist medical decision maker(s) with: better understanding of current medical conditions; weighing benefits/burdens of medical treatment options; making medical treatment decisions. (Blank Coronel) Subjective/Interval History Patient seen today to follow-up on comfort , goals with decision makers/assess patient's ability to begin participating in decision-making Patient has remained stable, now off the ventilator since 06/22/16 . Has been transferred off ICU to regular floor. Tracheostomy weaning and process, has been tolerating room air for many days. Pulmonology following. Appears May wean/decannulate trach if continues to tolerate room air? Speech therapy following, patient now able to eat pured diet with thin liquids. Still with PEG tube, PEG being utilized for meds, still receiving some tube feeding in addition to diet. Neurological status has improved, No reported episodes of agitation however patient still somewhat confused, though cooperative. Patient seen in room with significant other/HCP Neema at bedside. Awake, oriented to person, knows he is in some type of healthcare facility, though thinks he is at the [facility]. Does not know why he is in the hospital other than that he "was sick ". Asked him about the visitor at his bedside ( Neema) He Knows his significant other, tells me she has been by his side for a long time that she is his one and only. Asked him if he wants Neema to continue to remain involved in his care and helping him with decisions, if he trusts her- until he gets better enough to make them on his own, he tells me Neema is his best person, he trusts her. Limited verbalization-though will answer simple questions when asked. Endorses feeling okay, smiles at examiner. Denies pain. Denies shortness of breath. Denies nausea. Neema endorses that he has been coughing a little but hasn't really produce much sputum. Appears reasonable to allow him to complete healthcare surrogate designation as he clearly recognizes and seems to trust Neema. He seems to have overall poor insight into his medical conditions; and is not able to make his own decisions at this point. Discussed with primary nurse, he has also been partially oriented and for her--new he was in the hospital in [place] but otherwise poor insight. I did review with a history that patient though he has improved he still has underlying cardiac issues and given his reduced EF remains high risk for further complications and decline related to diminished cardiovascular capacity. Explore that he does remain at risk for further cardiovascular events , especially as he will still require ongoing hemodialysis. Review patient will need placement as too weak to return to independent living in the home setting. She is thankful that the patient has improved as much as he has, she hopes he continues to improve. Goals remain aggressive. To exam-lungs clear. Tracheostomy visualized currently on room air. Site asymptomatic. Able to speak very softly by covering tracheostomy. Breathing Comfortably. PEG tube noted with tube feeding in infusing, currently held. Patient indicates that he is hungry. Other complaints otherwise ROS negative. He smiles when talking to Neema. Indicates Neema is going to help him get a bath. Following that assisted him with completion of healthcare surrogate naming significant other Audrey. Nicky BRAY witnessed. Provided them with a copy. (Blank Coronel) Advance Directives Living Will: Never completed Health Care Surrogate: Never completed Durable Power of Second Class Welder: Never completed (Blank Coronel) Objective Vital Signs Date Time Temp Pulse Resp B/P Pulse Ox O2 Delivery O2 Flow Rate FiO2 07/11/16 12:00 98.1 88 12 142/72 99 07/11/16 10:17 99 Trach Collar 21 07/11/16 08:00 98.0 85 12 157/72 98 07/11/16 04:00 97.3 84 18 122/80 99 07/11/16 01:23 18 07/11/16 00:00 97.3 81 20 134/63 96 07/10/16 22:15 81 07/10/16 22:15 98 Room Air 07/10/16 20:00 97.6 83 20 159/75 97 07/10/16 20:00 96 07/10/16 15:25 97.8 88 19 165/72 98 Intake & Output 07/11/16 07/11/16 07:00 19:00 Intake Total 1815 ml Balance 1815 ml Intake Oral 0 ml Tube Feeding 1815 ml # Voids 1 # Bowel Movements 1 Physical Exam CONSTITUTIONAL/GENERAL: This is an adequately nourished patient, in no apparent distress, awake, cooperative TUBES/LINES/DRAINS: PIV rt upper extremity, tracheostomy, PEG tube CARDIOVASCULAR: Regular rate and rhythm without murmurs. peripheral pulses symmetric. RESPIRATORY/CHEST: Symmetric, unlabored respirations via trach on room air. Tracheostomy midline site asymptomatic. Clear to auscultation. GASTROINTESTINAL: Abdomen soft, flat, nontender. Nondistended. No hepato- splenomegaly, or palpable masses. Bowel sounds active. TF infusing noted connected to PEG tube. NEUROLOGICAL: Awake, oriented to person and significant other. Aware he is in a health facility though not which one or why. Cooperative, follows simple commands. Very limited verbalization primarily to questions when asked. Very limited/poor insight to illness/hospitalization. PSYCHIATRIC no apparent anxiety or depression. Limited communication. (Blank Coronel) Diagnostic Tests Laboratory Laboratory Tests Test 07/10/16 07/11/16 08:39 07:58 White Blood Count 7.9 TH/MM3 7.1 TH/MM3 (4.0-11.0) (4.0-11.0) Red Blood Count 3.67 MIL/MM3 3.63 MIL/MM3 (4.50-5.90) (4.50-5.90) Hemoglobin 11.1 GM/DL 11.0 GM/DL (13.0-17.0) (13.0-17.0) Hematocrit 33.2 % 32.4 % (39.0-51.0) (39.0-51.0) Mean Corpuscular Volume 90.6 FL 89.2 FL (80.0-100.0) (80.0-100.0) Mean Corpuscular Hemoglobin 30.2 PG 30.2 PG (27.0-34.0) (27.0-34.0) Mean Corpuscular Hemoglobin 33.3 % 33.9 % Concent (32.0-36.0) (32.0-36.0) Red Cell Distribution Width 16.1 % 15.9 % (11.6-17.2) (11.6-17.2) Platelet Count 289 TH/MM3 219 TH/MM3 (150-450) (150-450) Mean Platelet Volume 10.7 FL 11.1 FL (7.0-11.0) (7.0-11.0) Sodium Level 135 MEQ/L 135 MEQ/L (136-145) (136-145) Potassium Level 4.2 MEQ/L 4.7 MEQ/L (3.5-5.1) (3.5-5.1) Chloride Level 92 MEQ/L 93 MEQ/L (98-107) (98-107) Carbon Dioxide Level 32.3 MEQ/L 28.7 MEQ/L (21.0-32.0) (21.0-32.0) Anion Gap 11 MEQ/L (5-15) 13 MEQ/L (5-15) Blood Urea Nitrogen 48 MG/DL (7-18) 75 MG/DL (7-18) Creatinine 4.82 MG/DL 6.19 MG/DL (0.60-1.30) (0.60-1.30) Estimat Glomerular Filtration 15 ML/MIN (>89) 11 ML/MIN (>89) Rate Random Glucose 111 MG/DL 105 MG/DL (74-106) (74-106) Calcium Level 9.2 MG/DL 8.9 MG/DL (8.5-10.1) (8.5-10.1) Hematology Comments (Blank Coronel) Result Diagram: 07/11/16 0758 07/11/16 0758 Imaging Last Impressions Chest X-Ray 06/23/16 0600 Signed Impressions: Service Date/Time: June 03:02 - CONCLUSION: No significant change. Minh Aponte MD Abdomen X-Ray 06/16/16 0000 Signed Impressions: Service Date/Time: May 09:12 - CONCLUSION: Apparent appropriate placement of gastric tube placement. Amaris Rosenberg MD Abdomen/Pelvis CT 06/15/16 0000 Signed Impressions: Service Date/Time: Wednesday, June 15, 2016 13:16 - CONCLUSION: Significant free intraperitoneal air. Consolidative changes in both bases with small bilateral pleural effusions. Mikhail Abrams MD FACR Brain MRI 06/10/16 0000 Signed Impressions: Service Date/Time: Friday, June 10, 2016 20:14 - CONCLUSION: 1. Mild chronic-appearing ischemic changes in the periventricular white matter slightly progressed from 2014. No recent infarct, mass effect or midline shift. No hydrocephalus. Lakhwinder Pringle MD Liver Ultrasound 06/01/16 0000 Signed Impressions: Service Date/Time: Wednesday, June 01, 2016 15:38 - CONCLUSION: 1. Bilateral pleural effusions. 2. Thick-walled gallbladder with minimal pericholecystic fluid. If there is clinical concern for acute cholecystitis a hepatobiliary scan may be helpful to confirm cystic duct obstruction. 3. Minimal ascites. 4. Echogenic atrophic right kidney. 5. Mild nonspecific prominence of the main pancreatic duct. Enzo Price MD Head CT 05/29/16 0000 Signed Impressions: Service Date/Time: Sunday, May 29, 2016 03:03 - CONCLUSION: Age- appropriate atrophy, stable from prior in September 2015. No acute findings. Earnest Torre MD Lower Extremity Ultrasound 05/28/16 0000 Signed Impressions: Service Date/Time: Saturday, May 28, 2016 22:27 - CONCLUSION: Negative for deep venous thrombosis bilateral lower extremity. Earnest Torre MD Procedures Tracheostomy PEG . (Blank Coronel) Assessment and Plan Disease Oriented Problem List: (1) Metabolic encephalopathy (2) ESRD on hemodialysis (3) Shortness of breath (4) Diabetes (5) CHF (congestive heart failure) (6) Elevated troponin level (7) Hepatitis C (8) Hyperkalemia, diminished renal excretion (9) Cardiac arrest (10) Hyperkalemia (11) Hypertension (12) NSTEMI (non-ST elevated myocardial infarction) (13) Elevated LFTs (14) Non-ischemic cardiomyopathy Symptom Scale: (1) Encephalopathy (2) Anxiety (3) Dyspnea Pertinent Non-Medical Issues Psychosocial:Per prior H&P by palliative [facility] (obtained from significant other Neema) patient born in [place] moves to [place] sometime in 2012 or . Parents are , patient has no siblings. He did serve in the though branch not known. He did have some connection with the [facility]. Disabled and not working for many years. Completed high school. 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 Has lived with significant other Neema Johnston for many years. Never reported to be . Has 1 son, 1 daughter who may live in the [place] area. Spiritual:Per prior admissions:He attends [employer]. Welcomed design supervisor support. Legal:Patient currently unable to participate in decision-making due to clinical condition. Not clear if he will regain ability to participate, status post PEA arrest. Patient reported to have 2 adult children, never . Per [place] statutes these 2 adult children would be appropriate legal decision makers. He has a significant other of many years who has previously served as a proxy during hospital course as children were not able to be located during previous attempts. Would again attempt to locate any possible family members as the last attempt I'm aware of occurred in 2013, if unable to locate children then would proceed with significant other artery as healthcare proxy. [06.01.15-- requested case management assist with [employer] report to again attempt to locate possible children-- reported 06.02.15 no family located. ] [facility] completed w patient on 07/11/16 naming sig chaitanya Johnston. Important Contacts Neema Johnston significant other [phone]/ [phone] Prognosis This patient suffered PEA arrest during this admission likely secondary to hyperkalemia, end-stage renal disease on hemodialysis. He now remains on mechanical vent, encephalopathic. Condition is guarded. Possible he may wean and medically extubate however thus far not tolerating CPAP trials. May require tracheostomy and PEG for ongoing aggressive interventions. Appears likely he can survive current hospital course though he does remain at risk for complications/setbacks. Code Status: Full Code Plan * Legal decision maker: Patient currently unable to participate in decision- making due to clinical condition. Not clear if/when he will regain ability to participate, status post PEA arrest. significant other Wandy is healthcare proxy. 07/11/16--encephalopathy slowly improving patient may be regaining some ability to participate, will continue to monitor.[facility] completed w patient on 07/11 naming sig chaitanya Johnston. * Goals: AGGRESSIVE. Met w sig chaitanya Bethea and her brother 06/02/16-- Neema seems to have very limited understanding and limited insight to conditions. When I initially asked what the drs had told her about her sig other's condition she stated "that he was fine and all his tests were perfect, normal". Much review of conditions, diagnostics, clinical course thus far, underlying conditions. Goals thus far are aggressive. They feel they have seen pt respond purposefully to their visit. They have seen him recover from many acute issues before, including PEA arrest, and believe he could again recover. 07/11/16.--Met with significant other @ bedside. Patient very slowly improving, significant other very pleased by this. Patient was poor to limited insight. Goals remain . Aggressive. Patient appears able to understand enough to designate healthcare surrogate, he does wish Neema to serve as his decision-maker. Assisted with completion of this documentation. * CODE STATUS: Full code * SYMPTOMS: --Encephalopathy-status post PEA arrest with ROSC after approximately 8 minutes of CPR.+ encephalopathy per EEG. Neurology following, continue supportive care. Patient with prior PEA arrest episode and encephalopathy during prior admission 2013, eventually during hospital course had improvement in neurological status. Very Slowly improving during current hospital course. --Dyspnea-emergently intubated for airway protection during PEA arrest; has been tolerating CPAP and TPs trials. Status post tracheostomy, PEG tube. As nominal for mechanical vent for a few weeks, tolerating room air. Possible may be leaning off of trach to decannulate. Denies any dyspnea, significant other reports minimal secretions. -Agitation/anxiety: Hx drug use. , + encephalopathy 2/2 PEA arrest has been on and off Diprivan and Precedex drip. agitation also appears to slowly improved with encephalopathy. Currently calm, comfortable. On scheduled Seroquel twice a day. Has PRN Haldol, Ativan. Last dose Haldol required 07/06, last dose Ativan 07/07. Currently appears comfortable, will continue to evaluate. * Palliative care will continue to follow during hospital course as condition evolves, to assist patient/decision-maker with understanding of medical conditions, weighing benefits/burdens of treatment options, for clarification of goals of treatment. Additionally will assist with any symptoms of palliative concern (Blank Coronel) Time Spent Total Floor Time (mins): 30 Face to Face Time (mins): 15 (d/w pt, sig other) >50% Counseling/Coord of Care: Yes (discussed with primary nurse, case management, palliative rf technician Alida.Everette) (Blank Coronel) Attestation To help prompt me to consider important information that might be impacting today's encounter and assessment, information from prior notes written by myself or my colleagues may have been "brought forward" into today's note. My signature on this note, however, is an attestation that I personally performed the exam, history, and/or decision-making noted today, and, unless otherwise indicated, the interactions with patient, family, and staff as well as the review of records all occurred today. I also attest that the listed assessment and stated plan reflect my best clinical judgment today based on the combination of historical information, prior notes, and today's exam/ interactions. When time spent is documented, it refers only to time spent today by the signer, or if indicated, combined time spent today by collaborating physician/nurse practitioner. (Blank Coronel) Collaborating MD Comments Chart reviewed. Case discussed with palliative care [facility]. Above [facility] note reviewed and I concur. . (Vu Lisa MD) Blank Coronel Jul 11, 2016 15:41 Vu Lisa MD Aug 10, 2016 12:22
--- NOTE | 2016-07-11 19:15 | HHI.NPPN ---
Subjective General Problems: Anemia Renal Failure: Chronic, End Stage Renal Disease Additional Remarks Patient is alert, no SOB, feeling better. Review of Systems General General Remarks unable to evaluate due to mental status Objective Data Data 07/10/16 07/11/16 19:00 07:00 Intake Total 640 ml 1815 ml Balance 640 ml 1815 ml Intake Oral 240 ml 0 ml Tube Feeding 400 ml 1815 ml # Voids 1 # Bowel Movements 1 Vital Signs Date Time Temp Pulse Resp B/P Pulse Ox O2 Delivery O2 Flow Rate FiO2 07/11/16 16:00 98.1 82 12 149/69 99 07/11/16 12:00 98.1 88 12 142/72 99 07/11/16 10:17 99 Trach Collar 21 07/11/16 08:00 Room Air 07/11/16 08:00 98.0 85 12 157/72 98 07/11/16 04:00 97.3 84 18 122/80 99 07/11/16 01:23 18 07/11/16 00:00 97.3 81 20 134/63 96 07/10/16 22:15 81 07/10/16 22:15 98 Room Air 07/10/16 20:00 97.6 83 20 159/75 97 07/10/16 20:00 96 -: 07/11/16 0758 07/11/16 0758 Tubes & Lines Comment trach, PEG Drip Comment Precedex Physical Exam General Appearance: No Acute Distress Eyes Eye Exam: Pupils Equal, Pupils Reactive Neck Neck Exam: Neck Supple Pulmonary Resp Exam: Breath Sounds Equal, Crackles, Decreased Bases, Diminished Breath Sounds Cardiology CV Exam: Regular, Normal Sinus Rhythm, Good Perfusion Gastrointestinal/Abdomen GI Exam: Soft, Non-Tender, Bowel Sounds Present, Non-Distended Extremeties Extremities Exam: Trace Edema Neurologic Neuro Exam: Alert Assessment/Plan Discussed Condition With: Patient Assessment Summary: Anemia of CKD, Hypertension, End Stage Renal Disease Electrolyte Assessment: Hypocalcemia Problem List: (1) ESRD on dialysis Plan: Continue dialysis T-Th-Mon, on Epogen for anemia. HD done on Sat. Continue HD TTS. alert and oriented talking to family HD will be in AM. Need placement. (2) Anemia Plan: Last hemoglobin stable (3) Hypertension Plan: BP stable. He is on metoprolol, hydralazine, clonidine with hold parameters (4) DM (diabetes mellitus) Plan: continue insulin coverage goal to maintain blood glucose between 140 and 180 off D10 , tube feeding was resumed (5) NSTEMI (non-ST elevated myocardial infarction) Plan: Troponin I elevated post cardiac arrest, chest compressions. he had catheterization in January 2016, normal coronary arteries (6) Elevated LFTs Plan: improved. (7) Cocaine abuse Plan: Cessation has been recommended. (8) Encephalopathy Plan: s/p trach placement. Encephalopathy resolved Problem Qualifiers (1) Anemia: Qualified Code: D64.9 - Anemia, unspecified type (2) Hypertension: Qualified Code: I10 - Essential hypertension (3) DM (diabetes mellitus): Qualified Code: E11.22 - Type 2 diabetes mellitus with diabetic chronic kidney disease, unspecified CKD stage, unspecified custodial insulin use status Severo Peck MD Jul 11, 2016 19:15
--- NOTE | 2016-07-11 19:21 | HHI.PR ---
Subjective Remarks 60 YOAA male with RF, trach, ESRDs/p cardiac arrest On Trach mask Small amount of trach secretions Afebrile, no new complaint. Tolerates TF and PO Alert awake follows commands mother at BS Objective Vital Signs Vital Signs Date Time Temp Pulse Resp B/P Pulse Ox O2 Delivery O2 Flow Rate FiO2 07/11/16 16:00 98.1 82 12 149/69 99 07/11/16 12:00 98.1 88 12 142/72 99 07/11/16 10:17 99 Trach Collar 21 07/11/16 08:00 Room Air 07/11/16 08:00 98.0 85 12 157/72 98 07/11/16 04:00 97.3 84 18 122/80 99 07/11/16 01:23 18 07/11/16 00:00 97.3 81 20 134/63 96 07/10/16 22:15 81 07/10/16 22:15 98 Room Air 07/10/16 20:00 97.6 83 20 159/75 97 07/10/16 20:00 96 I/O 07/10/16 07/10/16 07/10/16 07/11/16 07/11/16 07/11/16 07:00 15:00 23:00 07:00 15:00 23:00 Intake Total 640 ml 0 ml 1815 ml 400 ml Output Total 0 ml Balance 0 ml 640 ml 0 ml 1815 ml 400 ml Intake Oral 240 ml 0 ml 0 ml Tube Feeding 400 ml 1815 ml 400 ml Output Urine Total 0 ml # Voids 0 1 # Bowel Movements 0 0 1 Result Diagram: 07/11/16 0758 07/11/16 0758 Objective Remarks GENERAL: WBWN AA male, no distress SKIN: Warm and dry. HEAD: Normocephalic. EYES: No scleral icterus. No injection or drainage. NECK: Supple, trachea midline. No JVD or lymphadenopathy. Has Trach CARDIOVASCULAR: Regular rate and rhythm without murmurs, gallops, or rubs. RESPIRATORY: Breath sounds equal bilaterally. No accessory muscle use. GASTROINTESTINAL: Abdomen soft, non-tender, nondistended. PEG Tube in place MUSCULOSKELETAL: No cyanosis, or edema. BACK: Nontender without obvious deformity. No CVA tenderness. A/P Assessment and Plan RF, s/p Trach ESRD Non-ischemic CMP H/O CVA Coccaine use DM PLAN: Cont trach collar Aerosol nebs cont TF Seraquel 50 mg bid Stable on Trach collar SQ Heparin. Encourage Master Nieves MD Jul 11, 2016 19:21
[2016-07-11] MEDS: CHLORHEXIDINE 0.12% (ORAL KIT) 15 ML CUP MT SCH (19:57)
[2016-07-12] VITALS: BP 159/74; PULSE 89; RESP 18; TEMP 98.1; O2SAT 95
[2016-07-12] MEDS: HEPARIN SODIUM - SQ 10,000 UNITS/ML VIAL SQ SCH ×2 (02:20→13:08)
[2016-07-12 04:00] VITALS: BP 165/81; PULSE 92; RESP 18; TEMP 97.2; O2SAT 98
[2016-07-12] MEDS: METOPROLOL TARTRATE 25 MG TAB PO/NG SCH ×4 (06:00→18:48)
[2016-07-12 07:28] LABS: HEMATOCRIT 31.4 % (39.0-51.0); MEAN CORPUSCULAR HEMOGLOBIN 29.8 PG (27.0-34.0); MEAN CORPUSCULAR HGB CONC 33.5 % (32.0-36.0); PLATELET COUNT 236 TH/MM3 (150-450); RED BLOOD COUNT 3.53 MIL/MM3 (4.50-5.90); RED CELL DISTRIBUTION WIDTH 16.3 % (11.6-17.2); REVIEW FLAG FINAL; WHITE BLOOD COUNT 7.5 TH/MM3 (4.0-11.0)
[2016-07-12 07:37] LABS: BICARBONATE 26.9 MEQ/L (21.0-32.0); POTASSIUM 4.8 MEQ/L (3.5-5.1)
[2016-07-12 08:00] VITALS: BP 189/83; PULSE 97; RESP 16; TEMP 97.5; O2SAT 98
[2016-07-12] MEDS: CHLORHEXIDINE 0.12% (ORAL KIT) 15 ML CUP MT SCH (08:00)
[2016-07-12] MEDS: NEOMYCIN/POLYMYXIN/BACITRACIN OINT 15 GM TUBE TOPICAL SCH ×2 (09:00→21:00)
[2016-07-12] MEDS: SODIUM CHLORIDE 0.9% FLUSH 5 ML FLUSH IV FLUSH SCH ×2 (09:00→21:14)
--- NOTE | 2016-07-12 09:03 | HHI.NPPN ---
Subjective General Problems: Anemia Renal Failure: Chronic, End Stage Renal Disease Additional Remarks Patient is alert, seen during HD, no SOB. Review of Systems General General Remarks unable to evaluate due to mental status Objective Data Data 07/11/16 07/12/16 19:00 07:00 Intake Total 400 ml 768 ml Balance 400 ml 768 ml Intake Oral 0 ml IV Total 2 ml Tube Feeding 400 ml 766 ml # Voids 3 # Bowel Movements 3 Vital Signs Date Time Temp Pulse Resp B/P Pulse Ox O2 Delivery O2 Flow Rate FiO2 07/12/16 04:00 97.2 92 18 165/81 98 07/12/16 00:00 98.1 89 18 159/74 95 07/11/16 22:50 Trach Collar 5.00 Humidified 07/11/16 20:36 85 07/11/16 20:00 97.3 78 18 150/66 97 07/11/16 16:00 98.1 82 12 149/69 99 07/11/16 12:00 98.1 88 12 142/72 99 07/11/16 10:17 99 Trach Collar 21 -: 07/12/16 0631 07/12/16 0631 Tubes & Lines Comment trach, PEG Drip Comment Precedex Physical Exam General Appearance: No Acute Distress Eyes Eye Exam: Pupils Equal, Pupils Reactive Neck Neck Exam: Neck Supple Pulmonary Resp Exam: Breath Sounds Equal, Crackles, Decreased Bases, Diminished Breath Sounds Cardiology CV Exam: Regular, Normal Sinus Rhythm, Good Perfusion Gastrointestinal/Abdomen GI Exam: Soft, Non-Tender, Bowel Sounds Present, Non-Distended Extremeties Extremities Exam: Trace Edema Neurologic Neuro Exam: Alert Assessment/Plan Discussed Condition With: Patient Assessment Summary: Anemia of CKD, Hypertension, End Stage Renal Disease Electrolyte Assessment: Hypocalcemia Problem List: (1) ESRD on dialysis Plan: Continue dialysis T-Th-Sat, on Epogen for anemia. Continue HD TTS. alert and oriented talking to family HD now, removing 3 liters. BP is stable. grain oilseed or pasture farm manager notes for placement noted. (2) Anemia Plan: Last hemoglobin stable (3) Hypertension Plan: BP stable. He is on metoprolol, hydralazine, clonidine with hold parameters (4) DM (diabetes mellitus) Plan: continue insulin coverage goal to maintain blood glucose between 140 and 180 off D10 , tube feeding was resumed (5) NSTEMI (non-ST elevated myocardial infarction) Plan: Troponin I elevated post cardiac arrest, chest compressions. he had catheterization in January 2016, normal coronary arteries (6) Elevated LFTs Plan: improved. (7) Cocaine abuse Plan: Cessation has been recommended. (8) Encephalopathy Plan: s/p trach placement. Encephalopathy resolved Problem Qualifiers (1) Anemia: Qualified Code: D64.9 - Anemia, unspecified type (2) Hypertension: Qualified Code: I10 - Essential hypertension (3) DM (diabetes mellitus): Qualified Code: E11.22 - Type 2 diabetes mellitus with diabetic chronic kidney disease, unspecified CKD stage, unspecified custodial insulin use status Severo Peck MD Jul 12, 2016 09:03
[2016-07-12] MEDS: EPOETIN ALFA 10,000 UNITS/ML VIAL IV PRN (11:43)
[2016-07-12] MEDS: hydrALAZINE HCL 100 MG TAB PO SCH ×3 (13:00→18:48)
[2016-07-12] MEDS: cloNIDine HCL 0.1 MG TAB PO SCH ×3 (13:00→18:48)
[2016-07-12] MEDS: QUEtiapine FUMARATE 25 MG TAB PO SCH ×2 (13:09→21:15)
[2016-07-12] MEDS: DOCUSATE SODIUM 100 MG/10 ML UDC PO SCH ×2 (13:09→21:00)
[2016-07-12] MEDS: LANSOPRAZOLE SOLUTAB 30 MG TAB NG SCH (13:10)
--- NOTE | 2016-07-12 13:59 | HHI.PR ---
Subjective Remarks No change in clinical status. Patient has no complaints. Can answer yes or no to questions. Had dialysis today. Objective Vitals Vital Signs Date Time Temp Pulse Resp B/P Pulse Ox O2 Delivery O2 Flow Rate FiO2 07/12/16 04:00 97.2 92 18 165/81 98 07/12/16 00:00 98.1 89 18 159/74 95 07/11/16 22:50 Trach Collar 5.00 Humidified 07/11/16 20:36 85 07/11/16 20:00 97.3 78 18 150/66 97 07/11/16 16:00 98.1 82 12 149/69 99 I/O 07/11/16 07/11/16 07/11/16 07/12/16 07/12/16 07/12/16 07:00 15:00 23:00 07:00 15:00 23:00 Intake Total 1815 ml 400 ml 400 ml 368 ml Output Total 3000 ml Balance 1815 ml 400 ml 400 ml 368 ml -3000 ml Intake Oral 0 ml 0 ml 0 ml IV Total 2 ml Tube Feeding 1815 ml 400 ml 398 ml 368 ml Hemodialysis 3000 ml # Voids 1 1 2 # Bowel Movements 1 1 2 Result Diagram: 07/12/16 0631 07/12/16 0631 Objective Remarks GENERAL: Patient appear older than stated age. No apparent distress. Neck: Trach in place. CARDIOVASCULAR: Normal rate and regular rhythm without murmurs, gallops, or rubs. RESPIRATORY: Good respiratory efforts. Breath sounds equal and clear to auscultation bilaterally. GASTROINTESTINAL: Abdomen soft, non-tender, non-distended. Normal active bowel sounds MUSCULOSKELETAL: Extremities without cyanosis, or edema. NEURO: Awake and alert. Moves all ext x4. Will only say a few words. PSYCH: Calm A/P Problem List: (1) Encephalopathy, metabolic ICD Code: G93.41 Status: Acute (2) HCAP (healthcare-associated pneumonia) ICD Code: J18.9 Status: Acute (3) Hyperkalemia, diminished renal excretion ICD Code: E87.5 Status: Acute (4) Hypertension ICD Code: I10 Status: Chronic (5) Hepatitis C ICD Code: B19.20 Status: Acute (6) ESRD on hemodialysis ICD Code: N18.6 Status: Chronic (7) DM (diabetes mellitus) ICD Code: E11.9 Status: Chronic (8) Bleeding from gastrostomy tube site ICD Code: K94.21 Status: Acute Assessment and Plan 60-year-old male with Acute encephalopathy, post cardiac arrest. History of stroke without residual deficit (per friend's report) History of cocaine abuse Posttraumatic stress disorder Haldol when necessary for agitation Continue Seroquel 50 mg twice a day EEG 06/12 revealed mild sleep. No seizure activity noted. MRI brain revealed chronic vascular changes. No acute findings Neuro previously followed the patient-Dr. Wilks Patient can answer simple yes and no. Acute respiratory failure Healthcare associated pneumonia Intubated in ED 05/28/16 following cardiac arrest Tolerating T piece DuoNeb q6 hours. Albuterol q2 prn. s/p trach 06/[address] Bearden Cardiac arrest, secondary to hyperkalemia Pulmonary edema Nonischemic cardiomyopathy secondary to HTN, cocaine abuse Hypertension Elevated Troponin: ? NSTEMI Continue home meds: Hydralazine 25 tid. Clonidine 0.1 tid., Lopressor 25mg Q6 ( 100 mg twice a day at home) ASA 81 mg daily Echo 05/31: EF 25-30%, no RWMA. Mild MR/TR. MEGAN 36 mmHg cardiac cath 12/09/2012 - EF 40%, normal coronaries. Elevated troponin, s/p cardiac arrest. Per cardiology-no intervention planned. Hepatitis C Elevated LFT resolving Free air - likely secondary to EGD/tube feeding insufflation Daily TF-Nepro@50ml/hr. Monitor LFT's US liver: Bilateral pleural effusions. Thick-walled gallbladder with minimal pericholecystic fluid. Minimal ascites. Echogenic atrophic right kidney. Mild nonspecific prominence of the main pancreatic duct. Prevacid for GI prophylaxis Colace for bowel regimen Tube feed with tray as patient passed swallow eval ESRD Acute severe hyperkalemia - resolved Hypophosphatemia Intermittent hemodialysis per nephrology (Dr. Francisco) Emergent HD 05/28 due to potassium of 6.8 with bradycardia and cardiac arrest. Renal functions worse today. No accurate I/O. Further plans per nephrology. Continue PhosLo 667 mg 3 times a day. Healthcare associated pneumonia s/p Zosyn 2.25 g IV every 8 hours 05/29 - 06/12. Azithro x 10 days.05/28 nasal washing negative for Influenza. continue to monitor off antibiotics. Normocytic Anemia requiring transfusion, previously from acute blood loss from PEG tube 3 unit prbc, 1 FFP, 1 plt. DDAVP Coags within normal limits Received 16 mg DDAVP and [address] Kevin/hematology followed. Von Willebrand antigen factor normal Prophylaxis: Heparin subcutaneous/ Prevacid 30 mg daily for stress ulcer prophylaxis. Discharge Planning Patient will need placement. Case management following. Problem Qualifiers (1) Hypertension: Qualified Code: I10 - Essential hypertension (2) DM (diabetes mellitus): Qualified Code: E11.22 - Type 2 diabetes mellitus with diabetic chronic kidney disease, unspecified CKD stage, unspecified roasterman insulin use status Lea Andrews MD Jul 12, 2016 13:59
[2016-07-12 16:00] VITALS: BP 149/67; PULSE 98; RESP 16; TEMP 98.3; O2SAT 95
--- NOTE | 2016-07-12 19:32 | HHI.PR ---
Subjective Remarks 60 YOAA male with RF, trach, ESRDs/p cardiac arrest On Trach mask Small amount of trach secretions Afebrile, no new complaint. Tolerates TF and PO had HD today Objective Vital Signs Vital Signs Date Time Temp Pulse Resp B/P Pulse Ox O2 Delivery O2 Flow Rate FiO2 07/12/16 16:00 98.3 98 16 149/67 95 07/12/16 08:00 Room Air 07/12/16 08:00 97.5 97 16 189/83 98 07/12/16 04:00 97.2 92 18 165/81 98 07/12/16 00:00 98.1 89 18 159/74 95 07/11/16 22:50 Trach Collar 5.00 Humidified 07/11/16 20:36 85 07/11/16 20:00 97.3 78 18 150/66 97 I/O 07/11/16 07/11/16 07/11/16 07/12/16 07/12/16 07/12/16 07:00 15:00 23:00 07:00 15:00 23:00 Intake Total 1815 ml 400 ml 400 ml 368 ml 120 ml Output Total 3000 ml Balance 1815 ml 400 ml 400 ml 368 ml -2880 ml Intake Oral 0 ml 0 ml 0 ml 120 ml IV Total 2 ml Tube Feeding 1815 ml 400 ml 398 ml 368 ml Hemodialysis 3000 ml # Voids 1 1 2 1 # Bowel Movements 1 1 2 Result Diagram: 07/12/16 0631 07/12/16 0631 Objective Remarks GENERAL: WBWN AA male, no distress SKIN: Warm and dry. HEAD: Normocephalic. EYES: No scleral icterus. No injection or drainage. NECK: Supple, trachea midline. No JVD or lymphadenopathy. Has Trach CARDIOVASCULAR: Regular rate and rhythm without murmurs, gallops, or rubs. RESPIRATORY: Breath sounds equal bilaterally. No accessory muscle use. GASTROINTESTINAL: Abdomen soft, non-tender, nondistended. PEG Tube in place MUSCULOSKELETAL: No cyanosis, or edema. BACK: Nontender without obvious deformity. No CVA tenderness. A/P Assessment and Plan RF, s/p Trach ESRD Non-ischemic CMP H/O CVA Coccaine use DM PLAN: Cont trach collar Aerosol nebs cont TF Seraquel 50 mg bid Stable on Trach collar SQ Heparin. Encourage po Master Krause MD Jul 12, 2016 19:32
[2016-07-12 20:00] VITALS: BP 124/78; PULSE 88; RESP 20; TEMP 97.7; O2SAT 99
[2016-07-12 20:23] VITALS: PULSE 103
[2016-07-13] VITALS (8 sets, daily range): BP systolic 145–163; BP diastolic 64–119; PULSE 83–95; RESP 18–20; TEMP 97.4–98.9; O2SAT 94–99
[2016-07-13] MEDS: METOPROLOL TARTRATE 25 MG TAB PO/NG SCH ×4 (01:13→17:06)
[2016-07-13] MEDS: HEPARIN SODIUM - SQ 10,000 UNITS/ML VIAL SQ SCH ×2 (01:14→14:00)
[2016-07-13] MEDS: CHLORHEXIDINE GLUCONATE 2 % 1 PACK (2 CLOTHS) TOP SCH (04:00)
[2016-07-13] MEDS: DOCUSATE SODIUM 100 MG/10 ML UDC PO SCH ×2 (09:00→21:07)
[2016-07-13] MEDS: hydrALAZINE HCL 100 MG TAB PO SCH ×3 (09:00→17:04)
[2016-07-13] MEDS: QUEtiapine FUMARATE 25 MG TAB PO SCH ×2 (09:00→21:07)
[2016-07-13] MEDS: LANSOPRAZOLE SOLUTAB 30 MG TAB NG SCH (09:00)
[2016-07-13] MEDS: NEOMYCIN/POLYMYXIN/BACITRACIN OINT 15 GM TUBE TOPICAL SCH ×2 (09:00→21:00)
[2016-07-13] MEDS: cloNIDine HCL 0.1 MG TAB PO SCH ×3 (09:00→17:05)
[2016-07-13] MEDS: SODIUM CHLORIDE 0.9% FLUSH 5 ML FLUSH IV FLUSH SCH ×2 (09:00→21:07)
--- NOTE | 2016-07-13 14:08 | HHI.PR ---
Subjective Remarks Discuss with patient's fianc and nursing. He ate a good breakfast this morning. No acute issues overnight. Objective Vitals Vital Signs Date Time Temp Pulse Resp B/P Pulse Ox O2 Delivery O2 Flow Rate FiO2 07/13/16 12:00 98.9 91 18 157/72 97 07/13/16 08:13 99 T-piece 28 07/13/16 08:00 98.4 94 18 163/119 98 07/13/16 04:00 98.0 93 20 157/80 97 07/13/16 00:27 98.1 92 20 155/73 97 07/12/16 21:35 Trach Collar 5.00 Humidified 07/12/16 20:23 103 07/12/16 20:00 97.7 88 20 124/78 99 07/12/16 16:00 98.3 98 16 149/67 95 I/O 07/12/16 07/12/16 07/12/16 07/13/16 07/13/16 07/13/16 07:00 15:00 23:00 07:00 15:00 23:00 Intake Total 368 ml 120 ml 614 ml 380 ml Output Total 3000 ml 0 ml Balance 368 ml -2880 ml 614 ml 380 ml Intake Oral 0 ml 120 ml 240 ml 0 ml IV Total 2 ml Tube Feeding 368 ml 372 ml 380 ml Output Urine Total 0 ml Hemodialysis 3000 ml # Voids 2 1 1 # Bowel Movements 2 1 Result Diagram: 07/12/16 0631 07/12/16 0631 Objective Remarks GENERAL: Patient appear older than stated age. No apparent distress. Neck: Trach in place. CARDIOVASCULAR: Normal rate and regular rhythm without murmurs, gallops, or rubs. RESPIRATORY: Good respiratory efforts. Breath sounds equal and clear to auscultation bilaterally. GASTROINTESTINAL: Abdomen soft, non-tender, non-distended. Normal active bowel sounds MUSCULOSKELETAL: Extremities without cyanosis, or edema. NEURO: Awake and alert. Moves all ext x4. Will only say a few words. PSYCH: Calm A/P Problem List: (1) Encephalopathy, metabolic ICD Code: G93.41 Status: Acute (2) HCAP (healthcare-associated pneumonia) ICD Code: J18.9 Status: Acute (3) Hyperkalemia, diminished renal excretion ICD Code: E87.5 Status: Acute (4) Hypertension ICD Code: I10 Status: Chronic (5) Hepatitis C ICD Code: B19.20 Status: Acute (6) ESRD on hemodialysis ICD Code: N18.6 Status: Chronic (7) DM (diabetes mellitus) ICD Code: E11.9 Status: Chronic (8) Bleeding from gastrostomy tube site ICD Code: K94.21 Status: Acute Assessment and Plan 60-year-old male with Acute encephalopathy, post cardiac arrest. History of stroke without residual deficit (per friend's report) History of cocaine abuse Posttraumatic stress disorder Haldol when necessary for agitation Continue Seroquel 50 mg twice a day EEG 06/12 revealed mild sleep. No seizure activity noted. MRI brain revealed chronic vascular changes. No acute findings Neuro previously followed the patient-Dr. Wilks Patient can answer simple yes and no. Questionable anoxic injury. Acute respiratory failure Healthcare associated pneumonia Intubated in ED 05/28/16 following cardiac arrest Tolerating T piece DuoNeb q6 hours. Albuterol q2 prn. s/p trach 06/[address] Bearden Cardiac arrest, secondary to hyperkalemia Pulmonary edema Nonischemic cardiomyopathy secondary to HTN, cocaine abuse Hypertension Elevated Troponin: ? NSTEMI Continue home meds: Hydralazine 25 tid. Clonidine 0.1 tid., Lopressor 25mg Q6 ( 100 mg twice a day at home) ASA 81 mg daily Echo 05/31: EF 25-30%, no RWMA. Mild MR/TR. MEGAN 36 mmHg cardiac cath 12/09/2012 - EF 40%, normal coronaries. Elevated troponin, s/p cardiac arrest. Per cardiology-no intervention planned. Hepatitis C Elevated LFT resolving Free air - likely secondary to EGD/tube feeding insufflation Daily TF-Nepro@50ml/hr. Monitor LFT's US liver: Bilateral pleural effusions. Thick-walled gallbladder with minimal pericholecystic fluid. Minimal ascites. Echogenic atrophic right kidney. Mild nonspecific prominence of the main pancreatic duct. Prevacid for GI prophylaxis Colace for bowel regimen Tube feed with tray. Continue to monitor oral intake. Dietitian following. ESRD Acute severe hyperkalemia - resolved Hypophosphatemia Intermittent hemodialysis per nephrology (Dr. Francisco) Emergent HD 05/28 due to potassium of 6.8 with bradycardia and cardiac arrest. Renal functions worse today. No accurate I/O. Further plans per nephrology. Continue PhosLo 667 mg 3 times a day. Healthcare associated pneumonia s/p Zosyn 2.25 g IV every 8 hours 05/29 - 06/12. Azithro x 10 days.05/28 nasal washing negative for Influenza. continue to monitor off antibiotics. Normocytic Anemia requiring transfusion, previously from acute blood loss from PEG tube 3 unit prbc, 1 FFP, 1 plt. DDAVP Coags within normal limits Received 16 mg DDAVP and [address] Kevin/hematology followed. Von Willebrand antigen factor normal Prophylaxis: Heparin subcutaneous/ Prevacid 30 mg daily for stress ulcer prophylaxis. Discharge Planning Patient will need placement. Case management following. Problem Qualifiers (1) Hypertension: Qualified Code: I10 - Essential hypertension (2) DM (diabetes mellitus): Qualified Code: E11.22 - Type 2 diabetes mellitus with diabetic chronic kidney disease, unspecified CKD stage, unspecified fpc insulin use status Lea Andrews MD Jul 13, 2016 14:08
--- NOTE | 2016-07-13 18:21 | HHI.PR ---
Subjective Remarks 60 YOAA male with RF, trach, ESRDs/p cardiac arrest On Trach mask Small amount of trach secretions Afebrile, no new complaint. Tolerates TF and PO Objective Vital Signs Vital Signs Date Time Temp Pulse Resp B/P Pulse Ox O2 Delivery O2 Flow Rate FiO2 07/13/16 16:00 97.8 93 20 145/64 94 07/13/16 12:00 98.9 91 18 157/72 97 07/13/16 09:00 97 Room Air 07/13/16 08:13 99 T-piece 28 07/13/16 08:00 98.4 94 18 163/119 98 07/13/16 04:00 98.0 93 20 157/80 97 07/13/16 00:27 98.1 92 20 155/73 97 07/12/16 21:35 Trach Collar 5.00 Humidified 07/12/16 20:23 103 07/12/16 20:00 97.7 88 20 124/78 99 I/O 07/12/16 07/12/16 07/12/16 07/13/16 07/13/16 07/13/16 07:00 15:00 23:00 07:00 15:00 23:00 Intake Total 368 ml 120 ml 614 ml 380 ml 480 ml Output Total 3000 ml 0 ml Balance 368 ml -2880 ml 614 ml 380 ml 480 ml Intake Oral 0 ml 120 ml 240 ml 0 ml 480 ml IV Total 2 ml Tube Feeding 368 ml 372 ml 380 ml Output Urine Total 0 ml Hemodialysis 3000 ml # Voids 2 1 1 2 # Bowel Movements 2 1 0 Result Diagram: 07/12/1631 07/12/16 0631 Objective Remarks GENERAL: WBWN AA male, no distress SKIN: Warm and dry. HEAD: Normocephalic. EYES: No scleral icterus. No injection or drainage. NECK: Supple, trachea midline. No JVD or lymphadenopathy. Has Trach CARDIOVASCULAR: Regular rate and rhythm without murmurs, gallops, or rubs. RESPIRATORY: Breath sounds equal bilaterally. No accessory muscle use. GASTROINTESTINAL: Abdomen soft, non-tender, nondistended. PEG Tube in place MUSCULOSKELETAL: No cyanosis, or edema. BACK: Nontender without obvious deformity. No CVA tenderness. A/P Assessment and Plan RF, s/p Trach ESRD Non-ischemic CMP H/O CVA Coccaine use DM PLAN: Cont trach collar Aerosol nebs cont TF Seraquel 50 mg bid Stable on Trach collar SQ Heparin. Master Krause MD Jul 13, 2016 18:20
--- NOTE | 2016-07-13 19:02 | HHI.NPPN ---
Subjective General Problems: Anemia Renal Failure: Chronic, End Stage Renal Disease Additional Remarks Patient is alert, not in distress, started taking orally. Review of Systems General General Remarks unable to evaluate due to mental status Objective Data Data 07/12/16 07/13/16 19:00 07:00 Intake Total 494 ml 620 ml Output Total 3000 ml 0 ml Balance -2506 ml 620 ml Intake Oral 120 ml 240 ml IV Total 2 ml Tube Feeding 372 ml 380 ml Output Urine Total 0 ml Hemodialysis 3000 ml # Voids 1 1 # Bowel Movements 1 Vital Signs Date Time Temp Pulse Resp B/P Pulse Ox O2 Delivery O2 Flow Rate FiO2 07/13/16 16:00 97.8 93 20 145/64 94 07/13/16 12:00 98.9 91 18 157/72 97 07/13/16 09:00 97 Room Air 07/13/16 08:13 99 T-piece 28 07/13/16 08:00 98.4 94 18 163/119 98 07/13/16 04:00 98.0 93 20 157/80 97 07/13/16 00:27 98.1 92 20 155/73 97 07/12/16 21:35 Trach Collar 5.00 Humidified 07/12/16 20:23 103 07/12/16 20:00 97.7 88 20 124/78 99 -: 07/12/16 0631 07/12/16 0631 Tubes & Lines Comment trach, PEG Drip Comment Precedex Physical Exam General Appearance: No Acute Distress Eyes Eye Exam: Pupils Equal, Pupils Reactive Neck Neck Exam: Neck Supple Pulmonary Resp Exam: Breath Sounds Equal, Crackles, Decreased Bases, Diminished Breath Sounds Cardiology CV Exam: Regular, Normal Sinus Rhythm, Good Perfusion Gastrointestinal/Abdomen GI Exam: Soft, Non-Tender, Bowel Sounds Present, Non-Distended Extremeties Extremities Exam: Trace Edema Neurologic Neuro Exam: Alert Assessment/Plan Discussed Condition With: Patient Assessment Summary: Anemia of CKD, Hypertension, End Stage Renal Disease Electrolyte Assessment: Hypocalcemia Problem List: (1) ESRD on dialysis Plan: Continue dialysis T-Th-Sat, on Epogen for anemia. Continue HD TTS. alert and oriented talking to family HD done yesterday. fund manager notes for placement noted. HD to continue TTS. (2) Anemia Plan: Last hemoglobin stable (3) Hypertension Plan: BP stable. He is on metoprolol, hydralazine, clonidine with hold parameters (4) DM (diabetes mellitus) Plan: continue insulin coverage goal to maintain blood glucose between 140 and 180 off D10 , tube feeding was resumed (5) NSTEMI (non-ST elevated myocardial infarction) Plan: Troponin I elevated post cardiac arrest, chest compressions. he had catheterization in January 2016, normal coronary arteries (6) Elevated LFTs Plan: improved. (7) Cocaine abuse Plan: Cessation has been recommended. (8) Encephalopathy Plan: s/p trach placement. Encephalopathy resolved Problem Qualifiers (1) Anemia: Qualified Code: D64.9 - Anemia, unspecified type (2) Hypertension: Qualified Code: I10 - Essential hypertension (3) DM (diabetes mellitus): Qualified Code: E11.22 - Type 2 diabetes mellitus with diabetic chronic kidney disease, unspecified CKD stage, unspecified vermin exterminator insulin use status Severo Peck MD Jul 13, 2016 19:02
[2016-07-13] MEDS: CHLORHEXIDINE 0.12% (ORAL KIT) 15 ML CUP MT SCH (20:00)
[2016-07-14] VITALS (7 sets, daily range): BP systolic 91–179; BP diastolic 51–94; PULSE 89–118; RESP 18–22; TEMP 96–98.1; O2SAT 94–99
[2016-07-14] MEDS: METOPROLOL TARTRATE 25 MG TAB PO/NG SCH ×5 (00:05→23:46)
[2016-07-14] MEDS: HEPARIN SODIUM - SQ 10,000 UNITS/ML VIAL SQ SCH ×2 (02:27→14:00)
[2016-07-14] MEDS: CHLORHEXIDINE GLUCONATE 2 % 1 PACK (2 CLOTHS) TOP SCH (02:32)
[2016-07-14] MEDS: CHLORHEXIDINE 0.12% (ORAL KIT) 15 ML CUP MT SCH ×2 (08:00→19:47)
[2016-07-14] MEDS: NEOMYCIN/POLYMYXIN/BACITRACIN OINT 15 GM TUBE TOPICAL SCH ×2 (09:00→21:00)
[2016-07-14] MEDS: DOCUSATE SODIUM 100 MG/10 ML UDC PO SCH ×2 (09:16→21:41)
[2016-07-14] MEDS: LANSOPRAZOLE SOLUTAB 30 MG TAB NG SCH (09:16)
[2016-07-14] MEDS: QUEtiapine FUMARATE 25 MG TAB PO SCH ×2 (09:16→21:41)
[2016-07-14] MEDS: hydrALAZINE HCL 100 MG TAB PO SCH ×3 (09:16→18:27)
[2016-07-14] MEDS: cloNIDine HCL 0.1 MG TAB PO SCH ×3 (09:17→18:27)
[2016-07-14] MEDS: SODIUM CHLORIDE 0.9% FLUSH 5 ML FLUSH IV FLUSH SCH ×2 (09:17→21:00)
--- NOTE | 2016-07-14 11:34 | HHI.NPPN ---
Subjective General Problems: Anemia Renal Failure: Chronic, End Stage Renal Disease Additional Remarks Patient is alert, taking orally, no SOB. Review of Systems General General Remarks unable to evaluate due to mental status Objective Data Data 07/13/16 07/14/16 19:00 07:00 Intake Total 480 ml 552 ml Output Total 200 ml Balance 480 ml 352 ml Intake Oral 480 ml Tube Feeding 352 ml Other 200 ml Output Urine Total 200 ml # Voids 2 # Bowel Movements 0 Vital Signs Date Time Temp Pulse Resp B/P Pulse Ox O2 Delivery O2 Flow Rate FiO2 07/14/16 08:30 Room Air 07/14/16 04:00 97.3 118 22 179/94 94 07/14/16 00:00 97.7 89 20 156/85 99 07/13/16 20:11 83 07/13/16 20:00 97.4 88 20 149/68 95 07/13/16 20:00 Room Air 07/13/16 16:00 97.8 93 20 145/64 94 07/13/16 12:00 98.9 91 18 157/72 97 -: 07/12/16 0631 07/12/16 0631 Tubes & Lines Comment trach, PEG Drip Comment Precedex Physical Exam General Appearance: No Acute Distress Eyes Eye Exam: Pupils Equal, Pupils Reactive Neck Neck Exam: Neck Supple Pulmonary Resp Exam: Breath Sounds Equal, Crackles, Decreased Bases, Diminished Breath Sounds Cardiology CV Exam: Regular, Normal Sinus Rhythm, Good Perfusion Gastrointestinal/Abdomen GI Exam: Soft, Non-Tender, Bowel Sounds Present, Non-Distended Extremeties Extremities Exam: Trace Edema Neurologic Neuro Exam: Alert Assessment/Plan Discussed Condition With: Patient Assessment Summary: Anemia of CKD, Hypertension, End Stage Renal Disease Electrolyte Assessment: Hypocalcemia Problem List: (1) ESRD on dialysis Plan: Continue dialysis T-Th-Sat, on Epogen for anemia. Continue HD TTS. alert and oriented talking to family manager talent notes for placement noted. HD to continue TTS. HD will be today, still with Trach. Pulmonary following. (2) Anemia Plan: Last hemoglobin stable (3) Hypertension Plan: BP stable. He is on metoprolol, hydralazine, clonidine with hold parameters (4) DM (diabetes mellitus) Plan: continue insulin coverage goal to maintain blood glucose between 140 and 180 off D10 , tube feeding was resumed (5) NSTEMI (non-ST elevated myocardial infarction) Plan: Troponin I elevated post cardiac arrest, chest compressions. he had catheterization in January 2016, normal coronary arteries (6) Elevated LFTs Plan: improved. (7) Cocaine abuse Plan: Cessation has been recommended. (8) Encephalopathy Plan: s/p trach placement. Encephalopathy resolved Problem Qualifiers (1) Anemia: Qualified Code: D64.9 - Anemia, unspecified type (2) Hypertension: Qualified Code: I10 - Essential hypertension (3) DM (diabetes mellitus): Qualified Code: E11.22 - Type 2 diabetes mellitus with diabetic chronic kidney disease, unspecified CKD stage, unspecified termite control service representative insulin use status Severo Peck MD Jul 14, 2016 11:33
--- NOTE | 2016-07-14 16:44 | HHI.PR ---
Subjective Remarks Patient is doing well on room air. Reviewed case management. Difficult to get him placed due to trach. Objective Vitals Vital Signs Date Time Temp Pulse Resp B/P Pulse Ox O2 Delivery O2 Flow Rate FiO2 07/14/16 12:00 97.8 89 18 106/55 98 07/14/16 08:30 Room Air 07/14/16 08:00 96.0 92 18 133/84 99 07/14/16 04:00 97.3 118 22 179/94 94 07/14/16 00:00 97.7 89 20 156/85 99 07/13/16 20:11 83 07/13/16 20:00 97.4 88 20 149/68 95 07/13/16 20:00 Room Air I/O 07/13/16 07/13/16 07/13/16 07/14/16 07/14/16 07/14/16 07:00 15:00 23:00 07:00 15:00 23:00 Intake Total 380 ml 480 ml 552 ml Output Total 0 ml 200 ml Balance 380 ml 480 ml -200 ml 552 ml Intake Oral 0 ml 480 ml Tube Feeding 380 ml 352 ml Other 200 ml Output Urine Total 0 ml 200 ml # Voids 2 # Bowel Movements 0 Result Diagram: 07/12/1663007/12/16 0631 Objective Remarks GENERAL: Patient appear older than stated age. No apparent distress. Neck: Trach in place. CARDIOVASCULAR: Normal rate and regular rhythm without murmurs, gallops, or rubs. RESPIRATORY: Good respiratory efforts. Breath sounds equal and clear to auscultation bilaterally. GASTROINTESTINAL: Abdomen soft, non-tender, non-distended. Normal active bowel sounds MUSCULOSKELETAL: Extremities without cyanosis, or edema. NEURO: Awake and alert. Moves all ext x4. Will only say a few words. PSYCH: Calm A/P Problem List: (1) Encephalopathy, metabolic ICD Code: G93.41 Status: Acute (2) HCAP (healthcare-associated pneumonia) ICD Code: J18.9 Status: Acute (3) Hyperkalemia, diminished renal excretion ICD Code: E87.5 Status: Acute (4) Hypertension ICD Code: I10 Status: Chronic (5) Hepatitis C ICD Code: B19.20 Status: Acute (6) ESRD on hemodialysis ICD Code: N18.6 Status: Chronic (7) DM (diabetes mellitus) ICD Code: E11.9 Status: Chronic (8) Bleeding from gastrostomy tube site ICD Code: K94.21 Status: Acute Assessment and Plan 60-year-old male with Acute encephalopathy, post cardiac arrest. History of stroke without residual deficit (per friend's report) History of cocaine abuse Posttraumatic stress disorder Haldol when necessary for agitation Continue Seroquel 50 mg twice a day EEG 06/12 revealed mild sleep. No seizure activity noted. MRI brain revealed chronic vascular changes. No acute findings Neuro previously followed the patient-Dr. Wilks Patient can answer simple yes and no. Questionable anoxic injury. Becoming more alert. Acute respiratory failure Healthcare associated pneumonia Intubated in ED 05/28/16 following cardiac arrest Tolerating T piece DuoNeb q6 hours. Albuterol q2 prn. s/p trach 06/[address] Bearden. - Discussed with RN to alert pulmonology regarding possible trach weaning to facilitate placement. Cardiac arrest, secondary to hyperkalemia Pulmonary edema Nonischemic cardiomyopathy secondary to HTN, cocaine abuse Hypertension Elevated Troponin: ? NSTEMI Continue home meds: Hydralazine 25 tid. Clonidine 0.1 tid., Lopressor 25mg Q6 ( 100 mg twice a day at home) ASA 81 mg daily Echo 05/31: EF 25-30%, no RWMA. Mild MR/TR. MEGAN 36 mmHg cardiac cath 12/09/2012 - EF 40%, normal coronaries. Elevated troponin, s/p cardiac arrest. Per cardiology-no intervention planned. Hepatitis C Elevated LFT resolving Free air - likely secondary to EGD/tube feeding insufflation Daily TF-Nepro@50ml/hr. Monitor LFT's US liver: Bilateral pleural effusions. Thick-walled gallbladder with minimal pericholecystic fluid. Minimal ascites. Echogenic atrophic right kidney. Mild nonspecific prominence of the main pancreatic duct. Prevacid for GI prophylaxis Colace for bowel regimen Tube feed with tray. Continue to monitor oral intake. Dietitian following. ESRD Acute severe hyperkalemia - resolved Hypophosphatemia Intermittent hemodialysis per nephrology (Dr. Francisco) Emergent HD 05/28 due to potassium of 6.8 with bradycardia and cardiac arrest. Continue Hemodialysis per nephrology. Continue PhosLo 667 mg 3 times a day. Healthcare associated pneumonia s/p Zosyn 2.25 g IV every 8 hours 05/29 - 06/12. Azithro x 10 days.05/28 nasal washing negative for Influenza. continue to monitor off antibiotics. Normocytic Anemia requiring transfusion, previously from acute blood loss from PEG tube 3 unit prbc, 1 FFP, 1 plt. DDAVP Coags within normal limits Received 16 mg DDAVP and [address] Kevin/hematology followed. Von Willebrand antigen factor normal Prophylaxis: Heparin subcutaneous/ Prevacid 30 mg daily for stress ulcer prophylaxis. Discharge Planning Patient will need placement. Case management following. 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
[2016-07-14] MEDS: EPOETIN ALFA 10,000 UNITS/ML VIAL IV PRN (16:45)
--- NOTE | 2016-07-14 18:08 | HHI.PR ---
Subjective Remarks 60 YOAA male with RF, trach, ESRDs/p cardiac arrest On Trach mask Small amount of trach secretions Afebrile, no new complaint. Tolerates TF and PO no new complaint Objective Vital Signs Vital Signs Date Time Temp Pulse Resp B/P Pulse Ox O2 Delivery O2 Flow Rate FiO2 07/14/16 12:00 97.8 89 18 106/55 98 07/14/16 08:30 Room Air 07/14/16 08:00 90 07/14/16 08:00 96.0 92 18 133/84 99 07/14/16 04:00 97.3 118 22 179/94 94 07/14/16 00:00 97.7 89 20 156/85 99 07/13/16 20:11 83 07/13/16 20:00 97.4 88 20 149/68 95 07/13/16 20:00 Room Air I/O 07/13/16 07/13/16 07/13/16 07/14/16 07/14/16 07/14/16 07:00 15:00 23:00 07:00 15:00 23:00 Intake Total 380 ml 480 ml 552 ml 360 ml Output Total 0 ml 200 ml 3000 ml Balance 380 ml 480 ml -200 ml 552 ml 360 ml -3000 ml Intake Oral 0 ml 480 ml 360 ml Tube Feeding 380 ml 352 ml Other 200 ml Output Urine Total 0 ml 200 ml Hemodialysis 3000 ml # Voids 2 0 # Bowel Movements 0 0 Result Diagram: 07/12/1663007/12/16630 Objective Remarks GENERAL: WBWN AA male, no distress SKIN: Warm and dry. HEAD: Normocephalic. EYES: No scleral icterus. No injection or drainage. NECK: Supple, trachea midline. No JVD or lymphadenopathy. Has Trach CARDIOVASCULAR: Regular rate and rhythm without murmurs, gallops, or rubs. RESPIRATORY: Breath sounds equal bilaterally. No accessory muscle use. GASTROINTESTINAL: Abdomen soft, non-tender, nondistended. PEG Tube in place MUSCULOSKELETAL: No cyanosis, or edema. BACK: Nontender without obvious deformity. No CVA tenderness. A/P Assessment and Plan RF, s/p Trach ESRD Non-ischemic CMP H/O CVA Coccaine use DM PLAN: Cont trach collar Aerosol nebs cont TF Seraquel 50 mg bid Stable on Trach collar SQ Heparin. Will try PMV Aneja,Master Dev MD Jul 14, 2016 18:08
[2016-07-15] VITALS (8 sets, daily range): BP systolic 118–186; BP diastolic 58–89; PULSE 92–97; RESP 16–20; TEMP 97.5–98.4; O2SAT 96–99
[2016-07-15] MEDS: CHLORHEXIDINE GLUCONATE 2 % 1 PACK (2 CLOTHS) TOP SCH (03:30)
[2016-07-15] MEDS: HEPARIN SODIUM - SQ 10,000 UNITS/ML VIAL SQ SCH ×2 (03:31→15:16)
[2016-07-15] MEDS: METOPROLOL TARTRATE 25 MG TAB PO/NG SCH ×2 (05:17→18:29)
[2016-07-15] MEDS: CHLORHEXIDINE 0.12% (ORAL KIT) 15 ML CUP MT SCH ×2 (08:00→20:00)
[2016-07-15] MEDS: SODIUM CHLORIDE 0.9% FLUSH 5 ML FLUSH IV FLUSH SCH ×2 (09:00→21:00)
[2016-07-15] MEDS: DOCUSATE SODIUM 100 MG/10 ML UDC PO SCH ×2 (09:00→21:00)
[2016-07-15] MEDS: QUEtiapine FUMARATE 25 MG TAB PO SCH ×2 (09:05→21:24)
[2016-07-15] MEDS: LANSOPRAZOLE SOLUTAB 30 MG TAB NG SCH (09:05)
[2016-07-15] MEDS: hydrALAZINE HCL 100 MG TAB PO SCH ×3 (09:05→18:00)
[2016-07-15] MEDS: cloNIDine HCL 0.1 MG TAB PO SCH ×3 (09:05→18:00)
[2016-07-15] MEDS: NEOMYCIN/POLYMYXIN/BACITRACIN OINT 15 GM TUBE TOPICAL SCH ×2 (09:06→21:00)
--- NOTE | 2016-07-15 10:49 | HHI.PR ---
Subjective Remarks Patient reports that he is doing okay. Discussed with his . No new issues. Breathing comfortably. Discussed with RN, he pulled out the trach a couple times. Objective Vitals Vital Signs Date Time Temp Pulse Resp B/P Pulse Ox O2 Delivery O2 Flow Rate FiO2 07/15/16 04:00 97.5 97 18 118/89 97 07/14/16 23:42 97.8 104 20 133/60 98 07/14/16 20:00 Room Air 07/14/16 20:00 98.1 99 20 91/51 99 07/14/16 18:35 99 118/64 07/14/16 12:00 97.8 89 18 106/55 98 I/O 07/14/16 07/14/16 07/14/16 07/15/16 07/15/16 07/15/16 07:00 15:00 23:00 07:00 15:00 23:00 Intake Total 552 ml 360 ml 0 ml 0 ml Output Total 3000 ml Balance 552 ml 360 ml -3000 ml 0 ml Intake Oral 360 ml 0 ml 0 ml Tube Feeding 352 ml Other 200 ml Hemodialysis 3000 ml # Voids 0 0 0 # Bowel Movements 0 1 1 Result Diagram: 07/12/1663007/12/1631 Objective Remarks GENERAL: Patient appear older than stated age. No apparent distress. Neck: Trach in place. CARDIOVASCULAR: Normal rate and regular rhythm without murmurs, gallops, or rubs. RESPIRATORY: Good respiratory efforts. Breath sounds equal and clear to auscultation bilaterally. GASTROINTESTINAL: Abdomen soft, non-tender, non-distended. Normal active bowel sounds MUSCULOSKELETAL: Extremities without cyanosis, or edema. NEURO: Awake and alert. Moves all ext x4. Will only say a few words. PSYCH: Calm A/P Problem List: (1) Encephalopathy, metabolic ICD Code: G93.41 Status: Acute (2) HCAP (healthcare-associated pneumonia) ICD Code: J18.9 Status: Acute (3) Hyperkalemia, diminished renal excretion ICD Code: E87.5 Status: Acute (4) Hypertension ICD Code: I10 Status: Chronic (5) Hepatitis C ICD Code: B19.20 Status: Acute (6) ESRD on hemodialysis ICD Code: N18.6 Status: Chronic (7) DM (diabetes mellitus) ICD Code: E11.9 Status: Chronic (8) Bleeding from gastrostomy tube site ICD Code: K94.21 Status: Acute Assessment and Plan 60-year-old male with Acute encephalopathy, post cardiac arrest. History of stroke without residual deficit (per friend's report) History of cocaine abuse Posttraumatic stress disorder Haldol when necessary for agitation Continue Seroquel 50 mg twice a day EEG 06/12 revealed mild sleep. No seizure activity noted. MRI brain revealed chronic vascular changes. No acute findings Neuro previously followed the patient-Dr. Wilks Patient can answer simple yes and no. Questionable anoxic injury. Becoming more alert. Acute respiratory failure Healthcare associated pneumonia Intubated in ED 05/28/16 following cardiac arrest Tolerating T piece DuoNeb q6 hours. Albuterol q2 prn. s/p trach 06/[address] Bearden. -Pulmonology following. Will try Passy-Niles valve today. Cardiac arrest, secondary to hyperkalemia Pulmonary edema Nonischemic cardiomyopathy secondary to HTN, cocaine abuse Hypertension Elevated Troponin: ? NSTEMI Continue home meds: Hydralazine 25 tid. Clonidine 0.1 tid., Lopressor 25mg Q6 ( 100 mg twice a day at home) ASA 81 mg daily Echo 05/31: EF 25-30%, no RWMA. Mild MR/TR. MEGAN 36 mmHg cardiac cath 12/09/2012 - EF 40%, normal coronaries. Elevated troponin, s/p cardiac arrest. Per cardiology-no intervention planned. Hepatitis C Elevated LFT resolving Free air - likely secondary to EGD/tube feeding insufflation Daily TF-Nepro@50ml/hr. Monitor LFT's US liver: Bilateral pleural effusions. Thick-walled gallbladder with minimal pericholecystic fluid. Minimal ascites. Echogenic atrophic right kidney. Mild nonspecific prominence of the main pancreatic duct. Prevacid for GI prophylaxis Colace for bowel regimen Tube feed with tray. Continue to monitor oral intake. Dietitian following. ESRD Acute severe hyperkalemia - resolved Hypophosphatemia Intermittent hemodialysis per nephrology (Dr. Francisco) Emergent HD 05/28 due to potassium of 6.8 with bradycardia and cardiac arrest. Continue Hemodialysis per nephrology. Continue PhosLo 667 mg 3 times a day. Healthcare associated pneumonia s/p Zosyn 2.25 g IV every 8 hours 05/29 - 06/12. Azithro x 10 days.05/28 nasal washing negative for Influenza. continue to monitor off antibiotics. Normocytic Anemia requiring transfusion, previously from acute blood loss from PEG tube 3 unit prbc, 1 FFP, 1 plt. DDAVP Coags within normal limits Received 16 mg DDAVP and [address] Kevin/hematology followed. Von Willebrand antigen factor normal Prophylaxis: Heparin subcutaneous/ Prevacid 30 mg daily for stress ulcer prophylaxis. Discharge Planning Patient will need placement. Case management following. Problem Qualifiers (1) Hypertension: Qualified Code: I10 - Essential hypertension (2) DM (diabetes mellitus): Qualified Code: E11.22 - Type 2 diabetes mellitus with diabetic chronic kidney disease, unspecified CKD stage, unspecified intermediate card tender insulin use status Lea Andrews MD Jul 15, 2016 10:48
[2016-07-15 12:27] LABS: MEAN CELL VOLUME 89.6 FL (80.0-100.0); MEAN CORPUSCULAR HEMOGLOBIN 30.2 PG (27.0-34.0); MEAN CORPUSCULAR HGB CONC 33.7 % (32.0-36.0); PLATELET COUNT 181 TH/MM3 (150-450); RED BLOOD COUNT 3.46 MIL/MM3 (4.50-5.90); RED CELL DISTRIBUTION WIDTH 16.2 % (11.6-17.2); REVIEW FLAG FINAL; WHITE BLOOD COUNT 4.9 TH/MM3 (4.0-11.0)
[2016-07-15 12:58] LABS: BICARBONATE 32.2 MEQ/L (21.0-32.0); POTASSIUM 4.4 MEQ/L (3.5-5.1)
--- NOTE | 2016-07-15 17:20 | HHI.NPPN ---
Subjective General Problems: Anemia Renal Failure: Chronic, End Stage Renal Disease Additional Remarks Patient is alert,clinically same, not in distress. Review of Systems General General Remarks unable to evaluate due to mental status Objective Data Data 07/14/16 07/15/16 19:00 07:00 Intake Total 360 ml 0 ml Output Total 3000 ml Balance -2640 ml 0 ml Intake Oral 360 ml 0 ml Hemodialysis 3000 ml # Voids 0 0 # Bowel Movements 0 2 Vital Signs Date Time Temp Pulse Resp B/P Pulse Ox O2 Delivery O2 Flow Rate FiO2 07/15/16 16:09 21 07/15/16 10:00 99 T-piece 21 07/15/16 04:00 97.5 97 18 118/89 97 07/14/16 23:42 97.8 104 20 133/60 98 07/14/16 20:00 Room Air 07/14/16 20:00 98.1 99 20 91/51 99 07/14/16 18:35 99 118/64 -: 07/15/16 1217 07/15/16 1217 Tubes & Lines Comment trach, PEG Drip Comment Precedex Physical Exam General Appearance: No Acute Distress Eyes Eye Exam: Pupils Equal, Pupils Reactive Neck Neck Exam: Neck Supple Pulmonary Resp Exam: Breath Sounds Equal, Crackles, Decreased Bases, Diminished Breath Sounds Cardiology CV Exam: Regular, Normal Sinus Rhythm, Good Perfusion Gastrointestinal/Abdomen GI Exam: Soft, Non-Tender, Bowel Sounds Present, Non-Distended Extremeties Extremities Exam: Trace Edema Neurologic Neuro Exam: Alert Assessment/Plan Discussed Condition With: Patient Assessment Summary: Anemia of CKD, Hypertension, End Stage Renal Disease Electrolyte Assessment: Hypocalcemia Problem List: (1) ESRD on dialysis Plan: Continue dialysis T--Mon, on Epogen for anemia. alert and oriented talking to family trust manager notes for placement noted. HD to continue TTS. HD done yesterday. Trach. is capped, Pulmonary following. (2) Anemia Plan: Last hemoglobin stable (3) Hypertension Plan: BP stable. He is on metoprolol, hydralazine, clonidine with hold parameters (4) DM (diabetes mellitus) Plan: continue insulin coverage goal to maintain blood glucose between 140 and 180 off D10 , tube feeding was resumed (5) NSTEMI (non-ST elevated myocardial infarction) Plan: Troponin I elevated post cardiac arrest, chest compressions. he had catheterization in January 2016, normal coronary arteries (6) Elevated LFTs Plan: improved. (7) Cocaine abuse Plan: Cessation has been recommended. (8) Encephalopathy Plan: s/p trach placement. Encephalopathy resolved Problem Qualifiers (1) Anemia: Qualified Code: D64.9 - Anemia, unspecified type (2) Hypertension: Qualified Code: I10 - Essential hypertension (3) DM (diabetes mellitus): Qualified Code: E11.22 - Type 2 diabetes mellitus with diabetic chronic kidney disease, unspecified CKD stage, unspecified [facility]p insulin use status Severo Peck MD Jul 15, 2016 17:20 Severo Peck MD Jul 15, 2016 17:20
--- NOTE | 2016-07-15 19:20 | HHI.PR ---
Subjective Remarks 60 YOAA male with RF, trach, ESRDs/p cardiac arrest On Trach mask Small amount of trach secretions Afebrile, no new complaint. Tolerates TF and PO Objective Vital Signs Vital Signs Date Time Temp Pulse Resp B/P Pulse Ox O2 Delivery O2 Flow Rate FiO2 07/15/16 16:09 21 07/15/16 16:00 97.9 97 20 145/67 96 07/15/16 12:00 97.7 96 20 127/58 98 07/15/16 10:00 99 T-piece 21 07/15/16 08:00 97.9 93 20 131/62 97 07/15/16 04:00 97.5 97 18 118/89 97 07/14/16 23:42 97.8 104 20 133/60 98 07/14/16 20:00 Room Air 07/14/16 20:00 98.1 99 20 91/51 99 I/O 07/14/16 07/14/16 07/14/16 07/15/16 07/15/16 07/15/16 07:00 15:00 23:00 07:00 15:00 23:00 Intake Total 552 ml 360 ml 0 ml 0 ml 1080 ml Output Total 3000 ml 0 ml Balance 552 ml 360 ml -3000 ml 0 ml 1080 ml Intake Oral 360 ml 0 ml 0 ml 1080 ml Tube Feeding 352 ml Other 200 ml Output Urine Total 0 ml Hemodialysis 3000 ml # Voids 0 0 0 # Bowel Movements 0 1 1 0 Result Diagram: 07/15/16 1217 07/15/16 1217 Objective Remarks GENERAL: WBWN AA male, no distress SKIN: Warm and dry. HEAD: Normocephalic. EYES: No scleral icterus. No injection or drainage. NECK: Supple, trachea midline. No JVD or lymphadenopathy. Has Trach CARDIOVASCULAR: Regular rate and rhythm without murmurs, gallops, or rubs. RESPIRATORY: Breath sounds equal bilaterally. No accessory muscle use. GASTROINTESTINAL: Abdomen soft, non-tender, nondistended. PEG Tube in place MUSCULOSKELETAL: No cyanosis, or edema. BACK: Nontender without obvious deformity. No CVA tenderness. A/P Assessment and Plan RF, s/p Trach ESRD Non-ischemic CMP H/O CVA Coccaine use DM PLAN: Cont trach collar Aerosol nebs cont TF Seraquel 50 mg bid Stable on Trach collar SQ Heparin. Cont PMV Will start Capping in 2-3 days Available prn over weekend. Master Krause MD Jul 15, 2016 19:20
[2016-07-16] VITALS (8 sets, daily range): BP systolic 121–166; BP diastolic 58–91; PULSE 87–103; RESP 18–22; TEMP 97.7–98.2; O2SAT 95–99
[2016-07-16] MEDS: METOPROLOL TARTRATE 25 MG TAB PO/NG SCH ×5 (00:43→23:44)
[2016-07-16] MEDS: HEPARIN SODIUM - SQ 10,000 UNITS/ML VIAL SQ SCH ×2 (00:43→15:17)
[2016-07-16] MEDS: CHLORHEXIDINE GLUCONATE 2 % 1 PACK (2 CLOTHS) TOP SCH (04:00)
[2016-07-16] MEDS: CHLORHEXIDINE 0.12% (ORAL KIT) 15 ML CUP MT SCH ×2 (08:00→20:00)
--- NOTE | 2016-07-16 09:52 | HHI.PR ---
Subjective Remarks Patient is agitates today. Fiance not at bedside today. Trach is capped. He is talking and yelling about why he is here. I was able to calm him down. No acute events overnight. Objective Vitals Vital Signs Date Time Temp Pulse Resp B/P Pulse Ox O2 Delivery O2 Flow Rate FiO2 07/16/16 08:00 97.7 101 22 152/68 97 07/16/16 05:22 98.1 98 20 166/85 97 07/15/16 23:57 98.4 92 16 120/60 97 07/15/16 20:24 98.1 93 20 186/73 96 07/15/16 20:00 Room Air T-Piece 07/15/16 20:00 97 07/15/16 16:09 21 07/15/16 16:00 97.9 97 20 145/67 96 07/15/16 12:00 97.7 96 20 127/58 98 07/15/16 10:00 99 T-piece 21 I/O 07/15/16 07/15/16 07/15/16 07/16/16 07/16/16 07/16/16 07:00 15:00 23:00 07:00 15:00 23:00 Intake Total 0 ml 1080 ml Output Total 0 ml Balance 0 ml 1080 ml Intake Oral 0 ml 1080 ml Output Urine Total 0 ml # Voids 0 0 0 # Bowel Movements 1 0 0 0 Result Diagram: 07/15/16 1217 07/15/16 1217 Objective Remarks GENERAL: Patient appear older than stated age. No apparent distress. Neck: Trach is capped CARDIOVASCULAR: Normal rate and regular rhythm without murmurs, gallops, or rubs. RESPIRATORY: Good respiratory efforts. Breath sounds equal and clear to auscultation bilaterally. GASTROINTESTINAL: Abdomen soft, non-tender, non-distended. Normal active bowel sounds MUSCULOSKELETAL: Extremities without cyanosis, or edema. NEURO: Awake and alert. Moves all ext x4. Will only say a few words. PSYCH: Easily agitated. A/P Problem List: (1) Encephalopathy, metabolic ICD Code: G93.41 Status: Acute (2) HCAP (healthcare-associated pneumonia) ICD Code: J18.9 Status: Acute (3) Hyperkalemia, diminished renal excretion ICD Code: E87.5 Status: Acute (4) Hypertension ICD Code: I10 Status: Chronic (5) Hepatitis C ICD Code: B19.20 Status: Acute (6) ESRD on hemodialysis ICD Code: N18.6 Status: Chronic (7) DM (diabetes mellitus) ICD Code: E11.9 Status: Chronic (8) Bleeding from gastrostomy tube site ICD Code: K94.21 Status: Acute Assessment and Plan 60-year-old male with Acute encephalopathy, post cardiac arrest. History of stroke without residual deficit (per friend's report) History of cocaine abuse Posttraumatic stress disorder Haldol when necessary for agitation Continue Seroquel 50 mg twice a day EEG 06/12 revealed mild sleep. No seizure activity noted. MRI brain revealed chronic vascular changes. No acute findings Neuro previously followed the patient-Dr. Wilks Questionable anoxic injury. More alert but easily agitated. DW RN to redirect frequently. He does better when his significant other is at bedside. Acute respiratory failure Healthcare associated pneumonia Intubated in ED 05/28/16 following cardiac arrest Tolerating T piece DuoNeb q6 hours. Albuterol q2 prn. s/p trach 06/[address] Bearden. -Pulmonology following. Trach is capped. Cardiac arrest, secondary to hyperkalemia Pulmonary edema Nonischemic cardiomyopathy secondary to HTN, cocaine abuse Hypertension Elevated Troponin: ? NSTEMI Continue home meds: Hydralazine 25 tid. Clonidine 0.1 tid., Lopressor 25mg Q6 ( 100 mg twice a day at home) ASA 81 mg daily Echo 05/31: EF 25-30%, no RWMA. Mild MR/TR. MEGAN 36 mmHg cardiac cath 12/09/2012 - EF 40%, normal coronaries. Elevated troponin, s/p cardiac arrest. Per cardiology-no intervention planned. Hepatitis C Elevated LFT resolving Free air - likely secondary to EGD/tube feeding insufflation Daily TF-Nepro@50ml/hr. Monitor LFT's US liver: Bilateral pleural effusions. Thick-walled gallbladder with minimal pericholecystic fluid. Minimal ascites. Echogenic atrophic right kidney. Mild nonspecific prominence of the main pancreatic duct. Prevacid for GI prophylaxis Colace for bowel regimen He is eating more. Hold tube feeding. ESRD Acute severe hyperkalemia - resolved Hypophosphatemia Intermittent hemodialysis per nephrology (Dr. Francisco) Emergent HD 05/28 due to potassium of 6.8 with bradycardia and cardiac arrest. Continue Hemodialysis per nephrology. Continue PhosLo 667 mg 3 times a day. Healthcare associated pneumonia s/p Zosyn 2.25 g IV every 8 hours 05/29 - 06/12. Azithro x 10 days.05/28 nasal washing negative for Influenza. continue to monitor off antibiotics. Normocytic Anemia requiring transfusion, previously from acute blood loss from PEG tube 3 unit prbc, 1 FFP, 1 plt. DDAVP Coags within normal limits Received 16 mg DDAVP and [address] Kevin/hematology followed. Von Willebrand antigen factor normal Prophylaxis: Heparin subcutaneous/ Prevacid 30 mg daily for stress ulcer prophylaxis. Discharge Planning Patient will need placement. Case management following. 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
[2016-07-16] MEDS: hydrALAZINE HCL 100 MG TAB PO SCH ×3 (10:29→18:11)
[2016-07-16] MEDS: QUEtiapine FUMARATE 25 MG TAB PO SCH ×2 (10:29→21:09)
[2016-07-16] MEDS: LANSOPRAZOLE SOLUTAB 30 MG TAB NG SCH (10:29)
[2016-07-16] MEDS: cloNIDine HCL 0.1 MG TAB PO SCH ×3 (10:29→18:11)
[2016-07-16] MEDS: SODIUM CHLORIDE 0.9% FLUSH 5 ML FLUSH IV FLUSH SCH ×2 (10:29→21:09)
[2016-07-16] MEDS: NEOMYCIN/POLYMYXIN/BACITRACIN OINT 15 GM TUBE TOPICAL SCH ×2 (10:30→21:09)
[2016-07-16] MEDS: DOCUSATE SODIUM 100 MG/10 ML UDC PO SCH ×2 (10:31→21:08)
--- NOTE | 2016-07-16 12:46 | HHI.NPPN ---
Subjective General Problems: Anemia Renal Failure: Chronic, End Stage Renal Disease Additional Remarks Patient is alert, now sitting on chair, feeling better. Review of Systems General General Remarks unable to evaluate due to mental status Objective Data Data 07/15/16 07/16/16 19:00 07:00 Intake Total 1080 ml Output Total 0 ml Balance 1080 ml Intake Oral 1080 ml Output Urine Total 0 ml # Voids 0 # Bowel Movements 0 0 Vital Signs Date Time Temp Pulse Resp B/P Pulse Ox O2 Delivery O2 Flow Rate FiO2 07/16/16 12:00 98.0 103 22 153/91 97 07/16/16 08:00 97.7 101 22 152/68 97 07/16/16 05:22 98.1 98 20 166/85 97 07/15/16 23:57 98.4 92 16 120/60 97 07/15/16 20:24 98.1 93 20 186/73 96 07/15/16 20:00 Room Air T-Piece 07/15/16 20:00 97 07/15/16 16:09 21 07/15/16 16:00 97.9 97 20 145/67 96 -: 07/15/16 1217 07/15/16 1217 Tubes & Lines Comment trach, PEG Drip Comment Precedex Physical Exam General Appearance: No Acute Distress Eyes Eye Exam: Pupils Equal, Pupils Reactive Neck Neck Exam: Neck Supple Pulmonary Resp Exam: Breath Sounds Equal, Crackles, Decreased Bases, Diminished Breath Sounds Cardiology CV Exam: Regular, Normal Sinus Rhythm, Good Perfusion Gastrointestinal/Abdomen GI Exam: Soft, Non-Tender, Bowel Sounds Present, Non-Distended Extremeties Extremities Exam: Trace Edema Neurologic Neuro Exam: Alert Assessment/Plan Discussed Condition With: Patient Assessment Summary: Anemia of CKD, Hypertension, End Stage Renal Disease Electrolyte Assessment: Hypocalcemia Problem List: (1) ESRD on dialysis Plan: Continue dialysis T-Th-Sat, on Epogen for anemia. alert and oriented talking to family manager [employer] notes for placement noted. HD to continue TTS. HD today, remove fluid as tolerated. BP is stable. Trach is capped. (2) Anemia Plan: Last hemoglobin stable (3) Hypertension Plan: BP stable. He is on metoprolol, hydralazine, clonidine with hold parameters (4) DM (diabetes mellitus) Plan: continue insulin coverage goal to maintain blood glucose between 140 and 180 off D10 , tube feeding was resumed (5) NSTEMI (non-ST elevated myocardial infarction) Plan: Troponin I elevated post cardiac arrest, chest compressions. he had catheterization in January 2016, normal coronary arteries (6) Elevated LFTs Plan: improved. (7) Cocaine abuse Plan: Cessation has been recommended. (8) Encephalopathy Plan: s/p trach placement. Encephalopathy resolved Problem Qualifiers (1) Anemia: Qualified Code: D64.9 - Anemia, unspecified type (2) Hypertension: Qualified Code: I10 - Essential hypertension (3) DM (diabetes mellitus): Qualified Code: E11.22 - Type 2 diabetes mellitus with diabetic chronic kidney disease, unspecified CKD stage, unspecified care home insulin use status Severo Peck MD Jul 16, 2016 12:46
[2016-07-16] MEDS: SODIUM CHLOR 0.9% 1000 ML INJ 1,000 ML IV PRN (15:46)
[2016-07-16] MEDS: GELATIN 12 MM/7 MM FOAM TOP PRN (15:47)
[2016-07-16] MEDS: EPOETIN ALFA 10,000 UNITS/ML VIAL IV PRN (15:47)
[2016-07-17] VITALS (9 sets, daily range): BP systolic 116–174; BP diastolic 64–79; PULSE 73–97; RESP 16–20; TEMP 97.8–98.7; O2SAT 96–100
[2016-07-17] MEDS: HEPARIN SODIUM - SQ 10,000 UNITS/ML VIAL SQ SCH ×2 (04:05→17:15)
[2016-07-17] MEDS: METOPROLOL TARTRATE 25 MG TAB PO/NG SCH ×3 (06:35→17:14)
[2016-07-17] MEDS: cloNIDine HCL 0.1 MG TAB PO SCH ×3 (09:02→17:14)
[2016-07-17] MEDS: LANSOPRAZOLE SOLUTAB 30 MG TAB NG SCH (09:02)
[2016-07-17] MEDS: hydrALAZINE HCL 100 MG TAB PO SCH ×3 (09:02→17:14)
[2016-07-17] MEDS: DOCUSATE SODIUM 100 MG/10 ML UDC PO SCH ×2 (09:02→22:30)
[2016-07-17] MEDS: QUEtiapine FUMARATE 25 MG TAB PO SCH ×2 (09:02→22:30)
[2016-07-17] MEDS: SODIUM CHLORIDE 0.9% FLUSH 5 ML FLUSH IV FLUSH SCH ×2 (09:03→22:30)
[2016-07-17] MEDS: NEOMYCIN/POLYMYXIN/BACITRACIN OINT 15 GM TUBE TOPICAL SCH ×2 (09:03→21:00)
[2016-07-17 10:30] LABS: MEAN CELL VOLUME 90.3 FL (80.0-100.0); MEAN CORPUSCULAR HEMOGLOBIN 30.2 PG (27.0-34.0); MEAN CORPUSCULAR HGB CONC 33.4 % (32.0-36.0); PLATELET COUNT 189 TH/MM3 (150-450); RED BLOOD COUNT 3.65 MIL/MM3 (4.50-5.90); RED CELL DISTRIBUTION WIDTH 15.7 % (11.6-17.2); REVIEW FLAG FINAL; WHITE BLOOD COUNT 7.3 TH/MM3 (4.0-11.0)
[2016-07-17 10:56] LABS: BICARBONATE 30.4 MEQ/L (21.0-32.0)
--- NOTE | 2016-07-17 11:12 | HHI.NPPN ---
Subjective General Problems: Anemia Renal Failure: Chronic, End Stage Renal Disease Additional Remarks Patient is alert, no complain, not in distress. Review of Systems General General Remarks unable to evaluate due to mental status Objective Data Data 07/16/16 07/17/16 19:00 07:00 Intake Total 360 ml 240 ml Output Total 3000 ml 0 ml Balance -2640 ml 240 ml Intake Oral 360 ml 240 ml Output Urine Total 0 ml Hemodialysis 3000 ml # Bowel Movements 0 Vital Signs Date Time Temp Pulse Resp B/P Pulse Ox O2 Delivery O2 Flow Rate FiO2 07/17/16 10:19 99 21 07/17/16 08:00 97.9 94 16 130/79 100 07/17/16 04:00 Room Air 07/17/16 04:00 98.7 97 16 148/77 96 07/17/16 00:00 Room Air 07/17/16 00:00 98.0 89 18 154/66 96 07/16/16 21:09 Room Air 07/16/16 20:23 87 07/16/16 20:00 98.1 90 18 121/66 99 07/16/16 16:00 98.2 100 20 124/58 95 07/16/16 14:56 98 07/16/16 12:00 98.0 103 22 153/91 97 -: 07/17/16 0959 07/17/16 0959 Tubes & Lines Comment trach, PEG Drip Comment Precedex Physical Exam General Appearance: No Acute Distress Eyes Eye Exam: Pupils Equal, Pupils Reactive Neck Neck Exam: Neck Supple Pulmonary Resp Exam: Breath Sounds Equal, Crackles, Decreased Bases, Diminished Breath Sounds Cardiology CV Exam: Regular, Normal Sinus Rhythm, Good Perfusion Gastrointestinal/Abdomen GI Exam: Soft, Non-Tender, Bowel Sounds Present, Non-Distended Extremeties Extremities Exam: Trace Edema Neurologic Neuro Exam: Alert Assessment/Plan Discussed Condition With: Patient Assessment Summary: Anemia of CKD, Hypertension, End Stage Renal Disease Electrolyte Assessment: Hypocalcemia Problem List: (1) ESRD on dialysis Plan: Continue dialysis T-Th-Sat, on Epogen for anemia. alert and oriented talking to family data center manager notes for placement noted. HD to continue TTS. HD done yesterday and 3 liters removed. Tolerated well. (2) Anemia Plan: Last hemoglobin stable (3) Hypertension Plan: BP stable. He is on metoprolol, hydralazine, clonidine with hold parameters (4) DM (diabetes mellitus) Plan: continue insulin coverage goal to maintain blood glucose between 140 and 180 off D10 , tube feeding was resumed (5) NSTEMI (non-ST elevated myocardial infarction) Plan: Troponin I elevated post cardiac arrest, chest compressions. he had catheterization in January 2016, normal coronary arteries (6) Elevated LFTs Plan: improved. (7) Cocaine abuse Plan: Cessation has been recommended. (8) Encephalopathy Plan: s/p trach placement. Encephalopathy resolved Problem Qualifiers (1) Anemia: Qualified Code: D64.9 - Anemia, unspecified type (2) Hypertension: Qualified Code: I10 - Essential hypertension (3) DM (diabetes mellitus): Qualified Code: E11.22 - Type 2 diabetes mellitus with diabetic chronic kidney disease, unspecified CKD stage, unspecified ferry terminal supervisor insulin use status Severo Peck MD Jul 17, 2016 11:12
--- NOTE | 2016-07-17 14:18 | HHI.PR ---
Subjective Remarks Patient is awake and alert. He is more calm today. Fianc at the bedside. Still confused. No complaints. Objective Vitals Vital Signs Date Time Temp Pulse Resp B/P Pulse Ox O2 Delivery O2 Flow Rate FiO2 07/17/16 12:00 94 16 174/78 100 07/17/16 10:19 99 21 07/17/16 09:10 95 07/17/16 09:10 Room Air 07/17/16 08:00 97.9 94 16 130/79 100 07/17/16 04:00 Room Air 07/17/16 04:00 98.7 97 16 148/77 96 07/17/16 00:00 Room Air 07/17/16 00:00 98.0 89 18 154/66 96 07/16/16 21:09 Room Air 07/16/16 20:23 87 07/16/16 20:00 98.1 90 18 121/66 99 07/16/16 16:00 98.2 100 20 124/58 95 07/16/16 14:56 98 I/O 07/16/16 07/16/16 07/16/16 07/17/16 07/17/16 07/17/16 07:00 15:00 23:00 07:00 15:00 23:00 Intake Total 360 ml 240 ml Output Total 3000 ml 0 ml Balance 360 ml -3000 ml 240 ml Intake Oral 360 ml 240 ml Output Urine Total 0 ml Hemodialysis 3000 ml # Voids 0 # Bowel Movements 0 0 Result Diagram: 07/17/16 0959 07/17/16 0959 Objective Remarks GENERAL: Patient appear older than stated age. No apparent distress. Neck: Trach is capped CARDIOVASCULAR: Normal rate and regular rhythm without murmurs, gallops, or rubs. RESPIRATORY: Good respiratory efforts. Breath sounds equal and clear to auscultation bilaterally. GASTROINTESTINAL: Abdomen soft, non-tender, non-distended. Normal active bowel sounds MUSCULOSKELETAL: Extremities without cyanosis, or edema. NEURO: Awake and alert. Moves all ext x4. Normal speech but confused. PSYCH: Calm. A/P Problem List: (1) Encephalopathy, metabolic ICD Code: G93.41 Status: Acute (2) HCAP (healthcare-associated pneumonia) ICD Code: J18.9 Status: Acute (3) Hyperkalemia, diminished renal excretion ICD Code: E87.5 Status: Acute (4) Hypertension ICD Code: I10 Status: Chronic (5) Hepatitis C ICD Code: B19.20 Status: Acute (6) ESRD on hemodialysis ICD Code: N18.6 Status: Chronic (7) DM (diabetes mellitus) ICD Code: E11.9 Status: Chronic (8) Bleeding from gastrostomy tube site ICD Code: K94.21 Status: Acute Assessment and Plan 60-year-old male with Acute encephalopathy, post cardiac arrest. History of stroke without residual deficit (per friend's report) History of cocaine abuse Posttraumatic stress disorder Haldol when necessary for agitation Continue Seroquel 50 mg twice a day EEG 06/12 revealed mild sleep. No seizure activity noted. MRI brain revealed chronic vascular changes. No acute findings Neuro previously followed the patient-Dr. Wilks Questionable anoxic injury. Becoming more alert. He is calm today. He does better when his significant other is at bedside. Acute respiratory failure Healthcare associated pneumonia Intubated in ED 05/28/16 following cardiac arrest Tolerating T piece DuoNeb q6 hours. Albuterol q2 prn. s/p trach 06/[address] Bearden. -Pulmonology following. Trach is capped. ? Wean off trach Cardiac arrest, secondary to hyperkalemia Pulmonary edema Nonischemic cardiomyopathy secondary to HTN, cocaine abuse Hypertension Elevated Troponin: ? NSTEMI Continue home meds: Hydralazine 25 tid. Clonidine 0.1 tid., Lopressor 25mg Q6 ( 100 mg twice a day at home) ASA 81 mg daily Echo 05/31: EF 25-30%, no RWMA. Mild MR/TR. MEGAN 36 mmHg cardiac cath 12/09/2012 - EF 40%, normal coronaries. Elevated troponin, s/p cardiac arrest. Per cardiology-no intervention planned. Hepatitis C Elevated LFT resolving Free air - likely secondary to EGD/tube feeding insufflation Daily TF-Nepro@50ml/hr. Monitor LFT's US liver: Bilateral pleural effusions. Thick-walled gallbladder with minimal pericholecystic fluid. Minimal ascites. Echogenic atrophic right kidney. Mild nonspecific prominence of the main pancreatic duct. Prevacid for GI prophylaxis Colace for bowel regimen He is eating more. Hold tube feeding. ESRD Acute severe hyperkalemia - resolved Hypophosphatemia Intermittent hemodialysis per nephrology (Dr. Francisco) Emergent HD 05/28 due to potassium of 6.8 with bradycardia and cardiac arrest. Continue Hemodialysis per nephrology. Continue PhosLo 667 mg 3 times a day. Healthcare associated pneumonia s/p Zosyn 2.25 g IV every 8 hours 05/29 - 06/12. Azithro x 10 days.05/28 nasal washing negative for Influenza. continue to monitor off antibiotics. Normocytic Anemia requiring transfusion, previously from acute blood loss from PEG tube 3 unit prbc, 1 FFP, 1 plt. DDAVP Coags within normal limits Received 16 mg DDAVP and [address] Kevin/hematology followed. Von Willebrand antigen factor normal Prophylaxis: Heparin subcutaneous/ Prevacid 30 mg daily for stress ulcer prophylaxis. Discharge Planning Patient will need placement. Case management following. Problem Qualifiers (1) Hypertension: Qualified Code: I10 - Essential hypertension (2) DM (diabetes mellitus): Qualified Code: E11.22 - Type 2 diabetes mellitus with diabetic chronic kidney disease, unspecified CKD stage, unspecified senior living insulin use status Lea Andrews MD Jul 17, 2016 14:18
[2016-07-18] VITALS (9 sets, daily range): BP systolic 108–148; BP diastolic 54–70; PULSE 74–91; RESP 16–20; TEMP 97.1–98.5; O2SAT 96–99
[2016-07-18] MEDS: METOPROLOL TARTRATE 25 MG TAB PO/NG SCH ×5 (01:21→23:05)
[2016-07-18] MEDS: HEPARIN SODIUM - SQ 10,000 UNITS/ML VIAL SQ SCH ×2 (02:40→13:15)
[2016-07-18] MEDS: LANSOPRAZOLE SOLUTAB 30 MG TAB NG SCH (08:13)
[2016-07-18] MEDS: cloNIDine HCL 0.1 MG TAB PO SCH ×3 (08:13→17:32)
[2016-07-18] MEDS: SODIUM CHLORIDE 0.9% FLUSH 5 ML FLUSH IV FLUSH SCH ×2 (08:13→20:48)
[2016-07-18] MEDS: QUEtiapine FUMARATE 25 MG TAB PO SCH ×2 (08:13→20:48)
[2016-07-18] MEDS: hydrALAZINE HCL 100 MG TAB PO SCH ×3 (08:13→17:32)
[2016-07-18] MEDS: DOCUSATE SODIUM 100 MG/10 ML UDC PO SCH ×2 (08:14→20:48)
[2016-07-18] MEDS: NEOMYCIN/POLYMYXIN/BACITRACIN OINT 15 GM TUBE TOPICAL SCH ×2 (08:14→20:49)
--- NOTE | 2016-07-18 10:47 | HHI.NPPN ---
Subjective General Problems: Anemia Renal Failure: Chronic, End Stage Renal Disease Additional Remarks Patient is alert, feeling better, not in distress, no complain. Review of Systems General General Remarks unable to evaluate due to mental status Objective Data Data 07/17/16 07/18/16 19:00 07:00 Intake Total 540 ml Balance 540 ml Intake Oral 540 ml # Voids 4 # Bowel Movements 0 2 Vital Signs Date Time Temp Pulse Resp B/P Pulse Ox O2 Delivery O2 Flow Rate FiO2 07/18/16 10:06 99 21 07/18/16 08:00 98.5 88 20 145/70 98 07/18/16 04:00 97.7 85 18 122/60 97 07/18/16 00:00 97.1 74 16 108/54 98 07/18/16 00:00 Room Air 07/17/16 20:27 73 07/17/16 20:00 Room Air 07/17/16 20:00 97.8 81 18 116/78 99 07/17/16 16:00 98.5 88 20 128/64 98 07/17/16 12:00 94 16 174/78 100 -: 07/17/16 0959 07/17/16 0959 Tubes & Lines Comment trach, PEG Drip Comment Precedex Physical Exam General Appearance: No Acute Distress Eyes Eye Exam: Pupils Equal, Pupils Reactive Neck Neck Exam: Neck Supple Pulmonary Resp Exam: Breath Sounds Equal, Crackles, Decreased Bases, Diminished Breath Sounds Cardiology CV Exam: Regular, Normal Sinus Rhythm, Good Perfusion Gastrointestinal/Abdomen GI Exam: Soft, Non-Tender, Bowel Sounds Present, Non-Distended Extremeties Extremities Exam: Trace Edema Neurologic Neuro Exam: Alert Assessment/Plan Discussed Condition With: Patient Assessment Summary: Anemia of CKD, Hypertension, End Stage Renal Disease Electrolyte Assessment: Hypocalcemia Problem List: (1) ESRD on dialysis Plan: Continue dialysis T-Th-Sat, on Epogen for anemia. alert and oriented talking to family photography manager notes for placement noted. HD to continue TTS. HD done sat. BP is stable. Pulmonary following. (2) Anemia Plan: Last hemoglobin stable (3) Hypertension Plan: BP stable. He is on metoprolol, hydralazine, clonidine with hold parameters (4) DM (diabetes mellitus) Plan: continue insulin coverage goal to maintain blood glucose between 140 and 180 off D10 , tube feeding was resumed (5) NSTEMI (non-ST elevated myocardial infarction) Plan: Troponin I elevated post cardiac arrest, chest compressions. he had catheterization in January 2016, normal coronary arteries (6) Elevated LFTs Plan: improved. (7) Cocaine abuse Plan: Cessation has been recommended. (8) Encephalopathy Plan: s/p trach placement. Encephalopathy resolved Problem Qualifiers (1) Anemia: Qualified Code: D64.9 - Anemia, unspecified type (2) Hypertension: Qualified Code: I10 - Essential hypertension (3) DM (diabetes mellitus): Qualified Code: E11.22 - Type 2 diabetes mellitus with diabetic chronic kidney disease, unspecified CKD stage, unspecified residential insulin use status Severo Peck MD Jul 18, 2016 10:47
--- NOTE | 2016-07-18 13:30 | HHI.PR ---
Subjective Remarks Patient reports he is feeling better. He is sitting up in the chair. Calm and eating crackers. He knows he is at [facility] but still confused but the year and current events. Objective Vitals Vital Signs Date Time Temp Pulse Resp B/P Pulse Ox O2 Delivery O2 Flow Rate FiO2 07/18/16 12:00 98.3 83 20 126/61 98 07/18/16 10:06 99 21 07/18/16 08:00 98.5 88 20 145/70 98 07/18/16 07:54 Room Air 07/18/16 07:54 91 07/18/16 04:00 97.7 85 18 122/60 97 07/18/16 00:00 97.1 74 16 108/54 98 07/18/16 00:00 Room Air 07/17/16 20:27 73 07/17/16 20:00 Room Air 07/17/16 20:00 97.8 81 18 116/78 99 07/17/16 16:00 98.5 88 20 128/64 98 I/O 07/17/16 07/17/16 07/17/16 07/18/16 07/18/16 07/18/16 07:00 15:00 23:00 07:00 15:00 23:00 Intake Total 240 ml 540 ml Output Total 0 ml Balance 240 ml 540 ml Intake Oral 240 ml 540 ml Output Urine Total 0 ml # Voids 2 2 # Bowel Movements 0 0 1 1 Result Diagram: 07/17/16 0959 07/17/16 0959 Objective Remarks GENERAL: Patient appear older than stated age. No apparent distress. Neck: Trach is capped CARDIOVASCULAR: Normal rate and regular rhythm without murmurs, gallops, or rubs. RESPIRATORY: Good respiratory efforts. Breath sounds equal and clear to auscultation bilaterally. GASTROINTESTINAL: Abdomen soft, non-tender, non-distended. Normal active bowel sounds MUSCULOSKELETAL: Extremities without cyanosis, or edema. NEURO: Awake and alert. Moves all ext x4. Normal speech. Some confusion PSYCH: Calm. A/P Problem List: (1) Encephalopathy, metabolic ICD Code: G93.41 Status: Acute (2) HCAP (healthcare-associated pneumonia) ICD Code: J18.9 Status: Acute (3) Hyperkalemia, diminished renal excretion ICD Code: E87.5 Status: Acute (4) Hypertension ICD Code: I10 Status: Chronic (5) Hepatitis C ICD Code: B19.20 Status: Acute (6) ESRD on hemodialysis ICD Code: N18.6 Status: Chronic (7) DM (diabetes mellitus) ICD Code: E11.9 Status: Chronic (8) Bleeding from gastrostomy tube site ICD Code: K94.21 Status: Acute Assessment and Plan 60-year-old male with Acute encephalopathy, post cardiac arrest. History of stroke without residual deficit (per friend's report) History of cocaine abuse Posttraumatic stress disorder Haldol when necessary for agitation. Patient is improving and is more cooperative. Continue Seroquel 50 mg twice a day EEG 06/12 revealed mild sleep. No seizure activity noted. MRI brain revealed chronic vascular changes. No acute findings Neuro previously followed the patient-Dr. Wilks Questionable anoxic injury. Becoming more alert. More calm Acute respiratory failure Healthcare associated pneumonia Intubated in ED 05/28/16 following cardiac arrest Tolerating T piece DuoNeb q6 hours. Albuterol q2 prn. s/p trach 06/[address] Bearden. -Pulmonology following. Trach is capped. ? Wean off trach per Pulmonology Cardiac arrest, secondary to hyperkalemia Pulmonary edema Nonischemic cardiomyopathy secondary to HTN, cocaine abuse Hypertension Elevated Troponin: ? NSTEMI Continue home meds: Hydralazine 25 tid. Clonidine 0.1 tid., Lopressor 25mg Q6 ( 100 mg twice a day at home) ASA 81 mg daily Echo 05/31: EF 25-30%, no RWMA. Mild MR/TR. MEGAN 36 mmHg cardiac cath 12/09/2012 - EF 40%, normal coronaries. Elevated troponin, s/p cardiac arrest. Per cardiology-no intervention planned. Hepatitis C Elevated LFT resolving Free air - likely secondary to EGD/tube feeding insufflation Daily TF-Nepro@50ml/hr. Monitor LFT's US liver: Bilateral pleural effusions. Thick-walled gallbladder with minimal pericholecystic fluid. Minimal ascites. Echogenic atrophic right kidney. Mild nonspecific prominence of the main pancreatic duct. Prevacid for GI prophylaxis Colace for bowel regimen He is eating more. Hold tube feeding. ESRD Acute severe hyperkalemia - resolved Hypophosphatemia Intermittent hemodialysis per nephrology (Dr. Francisco) Emergent HD 05/28 due to potassium of 6.8 with bradycardia and cardiac arrest. Continue Hemodialysis per nephrology. Continue PhosLo 667 mg 3 times a day. Healthcare associated pneumonia s/p Zosyn 2.25 g IV every 8 hours 05/29 - 06/12. Azithro x 10 days.05/28 nasal washing negative for Influenza. continue to monitor off antibiotics. Normocytic Anemia requiring transfusion, previously from acute blood loss from PEG tube 3 unit prbc, 1 FFP, 1 plt. DDAVP Coags within normal limits Received 16 mg DDAVP and [address] Kevin/hematology followed. Von Willebrand antigen factor normal Prophylaxis: Heparin subcutaneous/ Prevacid 30 mg daily for stress ulcer prophylaxis. Discharge Planning Patient is improving. May be able to go to rehabilitation soon if trach is removed. Case management following. Problem Qualifiers (1) Hypertension: Qualified Code: I10 - Essential hypertension (2) DM (diabetes mellitus): Qualified Code: E11.22 - Type 2 diabetes mellitus with diabetic chronic kidney disease, unspecified CKD stage, unspecified supervisor intermediates insulin use status Lea Andrews MD Jul 18, 2016 13:30
--- NOTE | 2016-07-18 18:49 | HHI.PR ---
Subjective Remarks 60 YOAA male with RF, trach, ESRDs/p cardiac arrest Small amount of trach secretions Afebrile, no new complaint. Tolerates TF and PO Tolerates PMV Objective Vital Signs Vital Signs Date Time Temp Pulse Resp B/P Pulse Ox O2 Delivery O2 Flow Rate FiO2 07/18/16 16:00 98.0 82 20 138/62 99 07/18/16 12:00 98.3 83 20 126/61 98 07/18/16 10:06 99 21 07/18/16 08:00 98.5 88 20 145/70 98 07/18/16 07:54 Room Air 07/18/16 07:54 91 07/18/16 04:00 97.7 85 18 122/60 97 07/18/16 00:00 97.1 74 16 108/54 98 07/18/16 00:00 Room Air 07/17/16 20:27 73 07/17/16 20:00 Room Air 07/17/16 20:00 97.8 81 18 116/78 99 I/O 07/17/16 07/17/16 07/17/16 07/18/16 07/18/16 07/18/16 07:00 15:00 23:00 07:00 15:00 23:00 Intake Total 240 ml 540 ml Output Total 0 ml Balance 240 ml 540 ml Intake Oral 240 ml 540 ml Output Urine Total 0 ml # Voids 2 2 # Bowel Movements 0 0 1 1 0 Result Diagram: 07/17/1659 07/17/1659 Objective Remarks GENERAL: WBWN AA male, no distress SKIN: Warm and dry. HEAD: Normocephalic. EYES: No scleral icterus. No injection or drainage. NECK: Supple, trachea midline. No JVD or lymphadenopathy. Has Trach CARDIOVASCULAR: Regular rate and rhythm without murmurs, gallops, or rubs. RESPIRATORY: Breath sounds equal bilaterally. No accessory muscle use. GASTROINTESTINAL: Abdomen soft, non-tender, nondistended. PEG Tube in place MUSCULOSKELETAL: No cyanosis, or edema. BACK: Nontender without obvious deformity. No CVA tenderness. A/P Assessment and Plan RF, s/p Trach ESRD Non-ischemic CMP H/O CVA Coccaine use DM PLAN: Cont trach collar Aerosol nebs cont TF Seraquel 50 mg bid Stable on Trach collar SQ Heparin. Cont PMV Aneja,Master Dev MD Jul 18, 2016 18:49
[2016-07-19] VITALS (9 sets, daily range): BP systolic 123–162; BP diastolic 58–75; PULSE 83–91; RESP 12–20; TEMP 95.4–98.4; O2SAT 96–100
[2016-07-19] MEDS: HEPARIN SODIUM - SQ 10,000 UNITS/ML VIAL SQ SCH ×2 (01:56→14:14)
[2016-07-19] MEDS: METOPROLOL TARTRATE 25 MG TAB PO/NG SCH ×4 (06:29→22:47)
[2016-07-19] MEDS: cloNIDine HCL 0.1 MG TAB PO SCH ×3 (09:00→17:22)
[2016-07-19] MEDS: hydrALAZINE HCL 100 MG TAB PO SCH ×3 (09:00→17:21)
--- NOTE | 2016-07-19 09:33 | HHI.NPPN ---
Subjective General Problems: Anemia Renal Failure: Chronic, End Stage Renal Disease Additional Remarks Patient is alert, seen during HD, no complain, feeling better. Review of Systems General General Remarks unable to evaluate due to mental status Objective Data Data 07/18/16 07/19/16 19:00 07:00 Intake Total 1404 ml Output Total 800 ml Balance 604 ml Intake Oral 170 ml IV Total 1234 ml Output Urine Total 800 ml # Bowel Movements 0 0 Vital Signs Date Time Temp Pulse Resp B/P Pulse Ox O2 Delivery O2 Flow Rate FiO2 07/19/16 08:00 97.9 85 12 144/70 97 07/19/16 07:24 98 21 07/19/16 04:00 98.0 88 18 156/75 96 07/19/16 00:00 98.2 85 16 144/69 96 07/18/16 22:11 96 21 07/18/16 20:00 97.9 89 18 148/64 98 07/18/16 20:00 Room Air 07/18/16 16:00 98.0 82 20 138/62 99 07/18/16 12:00 98.3 83 20 126/61 98 07/18/16 10:06 99 21 -: 07/17/16 0959 07/17/16 0959 Tubes & Lines Comment trach, PEG Drip Comment Precedex Physical Exam General Appearance: No Acute Distress Eyes Eye Exam: Pupils Equal, Pupils Reactive Neck Neck Exam: Neck Supple Pulmonary Resp Exam: Breath Sounds Equal, Crackles, Decreased Bases, Diminished Breath Sounds Cardiology CV Exam: Regular, Normal Sinus Rhythm, Good Perfusion Gastrointestinal/Abdomen GI Exam: Soft, Non-Tender, Bowel Sounds Present, Non-Distended Extremeties Extremities Exam: Trace Edema Neurologic Neuro Exam: Alert Assessment/Plan Discussed Condition With: Patient Assessment Summary: Anemia of CKD, Hypertension, End Stage Renal Disease Electrolyte Assessment: Hypocalcemia Problem List: (1) ESRD on dialysis Plan: Continue dialysis T-Th-Sat, on Epogen for anemia. alert and oriented talking to family HD to continue TTS. HD now , remove fluid as tolerated. Arrangement for placement. (2) Anemia Plan: Last hemoglobin stable (3) Hypertension Plan: BP stable. He is on metoprolol, hydralazine, clonidine with hold parameters (4) DM (diabetes mellitus) Plan: continue insulin coverage goal to maintain blood glucose between 140 and 180 off D10 , tube feeding was resumed (5) NSTEMI (non-ST elevated myocardial infarction) Plan: Troponin I elevated post cardiac arrest, chest compressions. he had catheterization in January 2016, normal coronary arteries (6) Elevated LFTs Plan: improved. (7) Cocaine abuse Plan: Cessation has been recommended. (8) Encephalopathy Plan: s/p trach placement. Encephalopathy resolved Problem Qualifiers (1) Anemia: Qualified Code: D64.9 - Anemia, unspecified type (2) Hypertension: Qualified Code: I10 - Essential hypertension (3) DM (diabetes mellitus): Qualified Code: E11.22 - Type 2 diabetes mellitus with diabetic chronic kidney disease, unspecified CKD stage, unspecified intermediate manager insulin use status Severo Peck MD Jul 19, 2016 09:32
[2016-07-19] MEDS: EPOETIN ALFA 10,000 UNITS/ML VIAL IV PRN (11:33)
--- NOTE | 2016-07-19 11:45 | HHI.PR ---
Subjective Remarks Follow up: Acute encephalopathy, post cardiac arrest, Healthcare associated pneumonia, Hypertension, Hepatitis C and ESRD. Patient seen in dialysis still appears to be confused, but comfortable in no acute distress. Tolerating PMV Denies shortness of breath, chest pain, fevers, chills, N/V/D/C. Objective Vitals Vital Signs Date Time Temp Pulse Resp B/P Pulse Ox O2 Delivery O2 Flow Rate FiO2 07/19/16 08:00 97.9 85 12 144/70 97 07/19/16 08:00 Room Air 07/19/16 07:39 88 07/19/16 07:24 98 21 07/19/16 04:00 98.0 88 18 156/75 96 07/19/16 00:00 98.2 85 16 144/69 96 07/18/16 22:11 96 21 07/18/16 20:00 97.9 89 18 148/64 98 07/18/16 20:00 Room Air 07/18/16 16:00 98.0 82 20 138/62 99 07/18/16 12:00 98.3 83 20 126/61 98 I/O 07/18/16 07/18/16 07/18/16 07/19/16 07/19/16 07/19/16 07:00 15:00 23:00 07:00 15:00 23:00 Intake Total 1404 ml Output Total 800 ml Balance 604 ml Intake Oral 170 ml IV Total 1234 ml Output Urine Total 800 ml # Voids 2 # Bowel Movements 1 0 0 Result Diagram: 07/17/16 0959 07/17/16 0959 Objective Remarks GENERAL: Patient appear older than stated age. No apparent distress. Neck: Trach is capped CARDIOVASCULAR: Normal rate and regular rhythm without murmurs, gallops, or rubs. RESPIRATORY: Good respiratory efforts. Breath sounds equal and clear to auscultation bilaterally. GASTROINTESTINAL: Abdomen soft, non-tender, non-distended. Normal active bowel sounds MUSCULOSKELETAL: Extremities without cyanosis, or edema. NEURO: Awake and alert. Moves all ext x4. Normal speech. Some confusion PSYCH: Calm. A/P Problem List: (1) Encephalopathy, metabolic ICD Code: G93.41 Status: Acute (2) HCAP (healthcare-associated pneumonia) ICD Code: J18.9 Status: Acute (3) Hyperkalemia, diminished renal excretion ICD Code: E87.5 Status: Acute (4) Hypertension ICD Code: I10 Status: Chronic (5) Hepatitis C ICD Code: B19.20 Status: Acute (6) ESRD on hemodialysis ICD Code: N18.6 Status: Chronic (7) DM (diabetes mellitus) ICD Code: E11.9 Status: Chronic (8) Bleeding from gastrostomy tube site ICD Code: K94.21 Status: Acute Assessment and Plan 60-year-old male with Acute encephalopathy, post cardiac arrest. History of stroke without residual deficit (per friend's report) History of cocaine abuse Posttraumatic stress disorder Haldol when necessary for agitation. Patient is improving and is more cooperative. Continue Seroquel 50 mg twice a day EEG 06/12 revealed mild sleep. No seizure activity noted. MRI brain revealed chronic vascular changes. No acute findings Neuro previously followed the patient-Dr. Wilks Questionable anoxic injury. Becoming more alert. More calm Acute respiratory failure Healthcare associated pneumonia Intubated in ED 05/28/16 following cardiac arrest Tolerating room air DuoNeb q6 hours. Albuterol q2 prn. s/p trach 06/[address] Bearden. -Pulmonology following. Trach is capped. ? Wean off trach per Pulmonology Cardiac arrest, secondary to hyperkalemia Pulmonary edema Nonischemic cardiomyopathy secondary to HTN, cocaine abuse Hypertension Elevated Troponin Continue home meds: Hydralazine 25 tid. Clonidine 0.1 tid., Lopressor 25mg Q6 ( 100 mg twice a day at home) ASA 81 mg daily Echo 05/31: EF 25-30%, no RWMA. Mild MR/TR. MEGAN 36 mmHg cardiac cath 12/09/2012 - EF 40%, normal coronaries. Elevated troponin, s/p cardiac arrest. Per cardiology-no intervention planned. - continue dialysis for volume management. Hepatitis C Elevated LFT resolving Free air - likely secondary to EGD/tube feeding insufflation Daily TF-Nepro@50ml/hr. Monitor LFT's US liver: Bilateral pleural effusions. Thick-walled gallbladder with minimal pericholecystic fluid. Minimal ascites. Echogenic atrophic right kidney. Mild nonspecific prominence of the main pancreatic duct. Prevacid for GI prophylaxis Colace for bowel regimen He is eating more. Hold tube feeding. Request dietary consult to evaluate for PEG tube removal. ESRD Acute severe hyperkalemia - resolved Hypophosphatemia hemodialysis per nephrology (Dr. Francisco) Emergent HD 05/28 due to potassium of 6.8 with bradycardia and cardiac arrest. Continue Hemodialysis per nephrology. Continue PhosLo 667 mg 3 times a day. - monitor electrolytes as needed. Protein calorie malnutrition- S/P EGD with PEG placement 06/13/2016 Patient currently on TF and meals Consult raw hide trimmer to reevaluate need for tube feeding Healthcare associated pneumonia s/p Zosyn 2.25 g IV every 8 hours 05/29 - 06/12. Azithro x 10 days.05/28 nasal washing negative for Influenza. continue to monitor off antibiotics. Normocytic Anemia requiring transfusion, previously from acute blood loss from PEG tube 3 unit prbc, 1 FFP, 1 plt. DDAVP Coags within normal limits Received 16 mg DDAVP and [address] Kevin/hematology followed. Von Willebrand antigen factor normal - Hgb has been stable. Continue to monitor. Prophylaxis: Heparin subcutaneous/ Prevacid 30 mg daily for stress ulcer prophylaxis. Discharge Planning Patient is improving. May be able to go to rehabilitation soon if trach is removed. Case management following. Discussed with patient and nursing Written by Cindi Woodard, acting as scribe for Dr. Hassan on 07/19/16 at 11:44. Attending Statement The documentation accurately reflects the work performed [id number] by me on at 11:44. Problem Qualifiers (1) Hypertension: Qualified Code: I10 - Essential hypertension (2) DM (diabetes mellitus): Qualified Code: E11.22 - Type 2 diabetes mellitus with diabetic chronic kidney disease, unspecified CKD stage, unspecified long term care pharmacist insulin use status Cindi Woodard Jul 19, 2016 11:45 Surendra Hassan DO Jul 19, 2016 13:28
[2016-07-19] MEDS: SODIUM CHLORIDE 0.9% FLUSH 5 ML FLUSH IV FLUSH SCH ×2 (12:22→20:28)
[2016-07-19] MEDS: DOCUSATE SODIUM 100 MG/10 ML UDC PO SCH ×2 (12:22→20:28)
[2016-07-19] MEDS: LANSOPRAZOLE SOLUTAB 30 MG TAB NG SCH (12:22)
[2016-07-19] MEDS: QUEtiapine FUMARATE 25 MG TAB PO SCH ×2 (12:22→20:28)
[2016-07-19] MEDS: NEOMYCIN/POLYMYXIN/BACITRACIN OINT 15 GM TUBE TOPICAL SCH ×2 (12:22→20:29)
--- NOTE | 2016-07-19 20:03 | HHI.PR ---
Subjective Remarks 60 YOAA male with RF, trach, ESRDs/p cardiac arrest Small amount of trach secretions Afebrile, Tolerates TF and PO Tolerates PMV no new complaint Objective Vital Signs Vital Signs Date Time Temp Pulse Resp B/P Pulse Ox O2 Delivery O2 Flow Rate FiO2 07/19/16 16:00 98.4 85 16 123/58 99 07/19/16 12:17 97.9 91 20 162/74 98 07/19/16 08:00 97.9 85 12 144/70 97 07/19/16 08:00 Room Air 07/19/16 07:39 88 07/19/16 07:24 98 21 07/19/16 04:00 98.0 88 18 156/75 96 07/19/16 00:00 98.2 85 16 144/69 96 07/18/16 22:11 96 21 I/O 07/18/16 07/18/16 07/18/16 07/19/16 07/19/16 07/19/16 07:00 15:00 23:00 07:00 15:00 23:00 Intake Total 1404 ml Output Total 800 ml 3000 ml Balance 604 ml -3000 ml Intake Oral 170 ml IV Total 1234 ml Output Urine Total 800 ml Hemodialysis 3000 ml # Voids 2 # Bowel Movements 1 0 0 Result Diagram: 07/17/1695807/17/1659 Objective Remarks GENERAL: WBWN AA male, no distress SKIN: Warm and dry. HEAD: Normocephalic. EYES: No scleral icterus. No injection or drainage. NECK: Supple, trachea midline. No JVD or lymphadenopathy. Has Trach CARDIOVASCULAR: Regular rate and rhythm without murmurs, gallops, or rubs. RESPIRATORY: Breath sounds equal bilaterally. No accessory muscle use. GASTROINTESTINAL: Abdomen soft, non-tender, nondistended. PEG Tube in place MUSCULOSKELETAL: No cyanosis, or edema. BACK: Nontender without obvious deformity. No CVA tenderness. A/P Assessment and Plan RF, s/p Trach ESRD Non-ischemic CMP H/O CVA Coccaine use DM PLAN: Cont trach collar Aerosol nebs cont TF Seraquel 50 mg bid Stable on Trach collar SQ Heparin. Cont PMV Trach capping in AM. Master Krause MD Jul 19, 2016 20:03
[2016-07-20] VITALS (9 sets, daily range): BP systolic 112–156; BP diastolic 59–74; PULSE 80–95; RESP 16–20; TEMP 97–98.7; O2SAT 94–99
[2016-07-20] MEDS: HEPARIN SODIUM - SQ 10,000 UNITS/ML VIAL SQ SCH ×2 (02:33→14:00)
[2016-07-20] MEDS: METOPROLOL TARTRATE 25 MG TAB PO/NG SCH ×4 (05:49→23:58)
[2016-07-20] MEDS: hydrALAZINE HCL 100 MG TAB PO SCH ×3 (09:00→16:50)
[2016-07-20] MEDS: DOCUSATE SODIUM 100 MG/10 ML UDC PO SCH ×2 (10:01→22:43)
[2016-07-20] MEDS: SODIUM CHLORIDE 0.9% FLUSH 5 ML FLUSH IV FLUSH SCH ×2 (10:01→22:44)
[2016-07-20] MEDS: QUEtiapine FUMARATE 25 MG TAB PO SCH ×2 (10:02→22:43)
[2016-07-20] MEDS: cloNIDine HCL 0.1 MG TAB PO SCH ×3 (10:02→16:50)
[2016-07-20] MEDS: LANSOPRAZOLE SOLUTAB 30 MG TAB NG SCH (10:02)
[2016-07-20] MEDS: NEOMYCIN/POLYMYXIN/BACITRACIN OINT 15 GM TUBE TOPICAL SCH ×2 (10:04→21:00)
--- NOTE | 2016-07-20 15:41 | HHI.NPPN ---
Subjective General Problems: Anemia Renal Failure: Chronic, End Stage Renal Disease Additional Remarks Patient is alert, no complain, started eating better. Review of Systems General General Remarks unable to evaluate due to mental status Objective Data Data 07/19/16 07/20/16 19:00 07:00 Intake Total 1013 ml Output Total 3000 ml Balance -3000 ml 1013 ml Intake Oral 120 ml IV Total 419 ml Tube Feeding 274 ml Other 200 ml Hemodialysis 3000 ml # Voids 2 # Bowel Movements 1 Vital Signs Date Time Temp Pulse Resp B/P Pulse Ox O2 Delivery O2 Flow Rate FiO2 07/20/16 12:53 94 120/71 07/20/16 11:53 98.7 95 16 148/69 99 07/20/16 10:43 97 21 07/20/16 08:00 98.2 92 20 156/74 94 07/20/16 04:00 97.5 95 20 138/67 96 07/20/16 00:00 97.0 86 20 112/59 98 07/19/16 20:30 87 07/19/16 20:00 95.4 83 20 153/67 100 07/19/16 20:00 Room Air 07/19/16 16:00 98.4 85 16 123/58 99 -: 07/17/16 0959 07/17/16 0959 Tubes & Lines Comment trach, PEG Drip Comment Precedex Physical Exam General Appearance: No Acute Distress Eyes Eye Exam: Pupils Equal, Pupils Reactive Neck Neck Exam: Neck Supple Pulmonary Resp Exam: Breath Sounds Equal, Crackles, Decreased Bases, Diminished Breath Sounds Cardiology CV Exam: Regular, Normal Sinus Rhythm, Good Perfusion Gastrointestinal/Abdomen GI Exam: Soft, Non-Tender, Bowel Sounds Present, Non-Distended Extremeties Extremities Exam: Trace Edema Neurologic Neuro Exam: Alert Assessment/Plan Discussed Condition With: Patient Assessment Summary: Anemia of CKD, Hypertension, End Stage Renal Disease Electrolyte Assessment: Hypocalcemia Problem List: (1) ESRD on dialysis Plan: Continue dialysis T-Th-Sat, on Epogen for anemia. alert and oriented talking to family HD to continue TTS. HD done yesterday. On Caloric count. Pulmonary following. (2) Anemia Plan: Last hemoglobin stable (3) Hypertension Plan: BP stable. He is on metoprolol, hydralazine, clonidine with hold parameters (4) DM (diabetes mellitus) Plan: continue insulin coverage goal to maintain blood glucose between 140 and 180 off D10 , tube feeding was resumed (5) NSTEMI (non-ST elevated myocardial infarction) Plan: Troponin I elevated post cardiac arrest, chest compressions. he had catheterization in January 2016, normal coronary arteries (6) Elevated LFTs Plan: improved. (7) Cocaine abuse Plan: Cessation has been recommended. (8) Encephalopathy Plan: s/p trach placement. Encephalopathy resolved Problem Qualifiers (1) Anemia: Qualified Code: D64.9 - Anemia, unspecified type (2) Hypertension: Qualified Code: I10 - Essential hypertension (3) DM (diabetes mellitus): Qualified Code: E11.22 - Type 2 diabetes mellitus with diabetic chronic kidney disease, unspecified CKD stage, unspecified termite control servicer insulin use status Severo Peck MD Jul 20, 2016 15:40
--- NOTE | 2016-07-20 16:14 | HHI.PR ---
Subjective Remarks The patient was sleeping. He said that he missed lunch because he was sleeping. He had no acute complaints. Discussed with nursing. Objective Vitals Vital Signs Date Time Temp Pulse Resp B/P Pulse Ox O2 Delivery O2 Flow Rate FiO2 07/20/16 12:53 94 120/71 07/20/16 11:53 98.7 95 16 148/69 99 07/20/16 10:43 97 21 07/20/16 08:00 98.2 92 20 156/74 94 07/20/16 04:00 97.5 95 20 138/67 96 07/20/16 00:00 97.0 86 20 112/59 98 07/19/16 20:30 87 07/19/16 20:00 95.4 83 20 153/67 100 07/19/16 20:00 Room Air I/O 07/19/16 07/19/16 07/19/16 07/20/16 07/20/16 07/20/16 07:00 15:00 23:00 07:00 15:00 23:00 Intake Total 1404 ml 419 ml 594 ml 120 ml Output Total 800 ml 3000 ml Balance 604 ml -3000 ml 419 ml 594 ml 120 ml Intake Oral 170 ml 120 ml 120 ml IV Total 1234 ml 419 ml Tube Feeding 274 ml Other 200 ml Output Urine Total 800 ml Hemodialysis 3000 ml # Voids 2 0 # Bowel Movements 0 1 0 Result Diagram: 07/17/16 0959 07/17/16 0959 Imaging Last Impressions Chest X-Ray 06/23/16 0600 Signed Impressions: Service Date/Time: June 03:02 - CONCLUSION: No significant change. Minh Aponte MD Abdomen X-Ray 06/16/16 0000 Signed Impressions: Service Date/Time: May 09:12 - CONCLUSION: Apparent appropriate placement of gastric tube placement. Amaris Rosenberg MD Abdomen/Pelvis CT 06/15/16 0000 Signed Impressions: Service Date/Time: Wednesday, June 15, 2016 13:16 - CONCLUSION: Significant free intraperitoneal air. Consolidative changes in both bases with small bilateral pleural effusions. Mikhail Abrams MD FACR Brain MRI 06/10/16 0000 Signed Impressions: Service Date/Time: Friday, June 10, 2016 20:14 - CONCLUSION: 1. Mild chronic-appearing ischemic changes in the periventricular white matter slightly progressed from 2014. No recent infarct, mass effect or midline shift. No hydrocephalus. Lakhwinder Pringle MD Liver Ultrasound 06/01/16 0000 Signed Impressions: Service Date/Time: Wednesday, June 01, 2016 15:38 - CONCLUSION: 1. Bilateral pleural effusions. 2. Thick-walled gallbladder with minimal pericholecystic fluid. If there is clinical concern for acute cholecystitis a hepatobiliary scan may be helpful to confirm cystic duct obstruction. 3. Minimal ascites. 4. Echogenic atrophic right kidney. 5. Mild nonspecific prominence of the main pancreatic duct. Enzo Price MD Head CT 05/29/16 0000 Signed Impressions: Service Date/Time: Sunday, May 29, 2016 03:03 - CONCLUSION: Age- appropriate atrophy, stable from prior in September 2015. No acute findings. Earnest Torre MD Lower Extremity Ultrasound 05/28/16 0000 Signed Impressions: Service Date/Time: Saturday, May 28, 2016 22:27 - CONCLUSION: Negative for deep venous thrombosis bilateral lower extremity. Earnest Torre MD Objective Remarks GENERAL: No apparent distress. Neck: Trach is capped CARDIOVASCULAR: Normal rate and regular rhythm without murmurs, gallops, or rubs. RESPIRATORY: Poor respiratory efforts. Breath sounds equal and clear to auscultation bilaterally. GASTROINTESTINAL: Abdomen soft, non-tender, non-distended. Normal active bowel sounds MUSCULOSKELETAL: Extremities without cyanosis, or edema. NEURO: Awake and alert. Moves all ext x4. Normal speech. Some confusion PSYCH: Flattened affect. Medications and IVs Current Medications Medications (Trade) Dose Ordered Sig/Crispin Route Start Time Stop Time Status Last Admin (NS Flush) 2 ml UNSCH PRN IV FLUSH 05/28/16 20:45 05/29/16 08:46 (NS Flush) 2 ml BID IV FLUSH 05/28/16 21:00 07/20/16 10:01 Ondansetron HCl 4 mg 4 mg Q6H PRN IV 05/28/16 20:45 (NS 1000 ml Inj) 1,000 ml @ 0 mls/hr Q0M PRN IV 05/28/16 20:53 07/07/16 13:55 Heparin Sodium (Porcine) 8000 units 8,000 units UNSCH PRN IVF 1/7/17 21:00 Sodium Chloride 1,000 ml @ 200 mls/hr Q5H PRN IV 05/28/16 20:53 07/16/16 15:46 (NS 1000 ml Inj) 1,000 ml @ 0 mls/hr Q0M PRN IV 05/28/16 20:53 06/18/16 08:18 (Mannitol Inj) 12.5 gm UNSCH PRN IV 05/28/16 21:00 (Albumin 25% Inj) 25 gm UNSCH PRN IV 05/28/16 21:00 06/14/16 11:12 (NS Flush) 5 ml UNSCH PRN IVF 05/28/16 21:00 (Heparin Inj) UNSCH PRN .XX 05/28/16 21:00 05/30/16 13:08 (Gentamicin (Dialysis) Inj) 20 mg UNSCH PRN IV 05/28/16 21:00 (Zofran Inj) 4 mg UNSCH PRN IV 05/28/16 21:00 (Tylenol) 650 mg UNSCH PRN PO 05/28/16 21:00 07/10/16 23:20 (Benadryl) 25 mg UNSCH PRN PO 05/28/16 21:00 (Nitrostat Sl) 0.4 mg UNSCH PRN SL 05/28/16 21:00 (Catapres) 0.1 mg UNSCH PRN PO 05/28/16 21:00 07/04/16 04:19 (Gelfoam 12 Mm/7 Mm Top) 1 foam UNSCH PRN TOP 05/28/16 21:00 07/16/16 15:47 (Ecotrin Ec) 81 mg DAILY PO 05/29/16 09:00 Hold 06/13/16 08:02 (Catapres) 0.1 mg TID PO 05/29/16 09:00 07/20/16 12:45 (Ativan Inj) 2 mg Q4H PRN IV PUSH 05/29/16 18:00 07/07/16 22:01 (Lopressor) 25 mg Q6HR PO/NG 05/31/16 12:00 07/20/16 12:09 (Phoslo) 667 mg TID NG 05/31/16 13:00 Hold 06/25/16 13:00 (D50w (Vial) Inj) 25 ml UNSCH PRN IV PUSH 06/01/16 08:45 (Glucagon Inj) 1 mg UNSCH PRN OTHER 06/01/16 08:45 (Neosporin Oint) 1 applic Q12HR TOPICAL 06/16/16 21:00 07/20/16 10:04 (Heparin Inj) 5,000 units Q12H SQ 06/20/16 02:00 07/20/16 14:00 (Epogen Inj) 10,000 units UNSCH PRN IV 06/23/16 11:00 07/19/16 11:33 (Prevacid Odt) 30 mg DAILY NG 06/25/16 09:00 07/20/16 10:02 (Colace Liq) 100 mg Q12HR PO 06/24/16 21:00 07/20/16 10:01 (SEROquel) 50 mg BID PO 06/26/16 21:00 07/20/16 10:02 (Haldol Inj) 5 mg Q8HR PRN IM 06/28/16 09:45 07/06/16 21:29 (Apresoline) 100 mg TID PO 06/30/16 13:00 07/20/16 12:45 (Nephrocaps) 1 cap DAILY PO 07/01/16 10:30 Hold A/P Problem List: (1) Encephalopathy, metabolic ICD Code: G93.41 Status: Acute (2) HCAP (healthcare-associated pneumonia) ICD Code: J18.9 Status: Acute (3) Hyperkalemia, diminished renal excretion ICD Code: E87.5 Status: Acute (4) Hypertension ICD Code: I10 Status: Chronic (5) Hepatitis C ICD Code: B19.20 Status: Acute (6) ESRD on hemodialysis ICD Code: N18.6 Status: Chronic (7) DM (diabetes mellitus) ICD Code: E11.9 Status: Chronic (8) Bleeding from gastrostomy tube site ICD Code: K94.21 Status: Acute Assessment and Plan Acute encephalopathyHistory of stroke without residual deficit (per friend's report)/ History of cocaine abuse/ Posttraumatic stress disorder EEG 06/12 revealed mild sleep. No seizure activity noted. MRI brain revealed chronic vascular changes; No acute findings. Neuro previously followed the patient-Dr. Wilks. Questionable anoxic injury. Becoming more alert. More calm - Haldol when necessary for agitation. Patient is improving and is more cooperative. - Continue Seroquel 50 mg twice a day. Acute respiratory failure/ Healthcare associated pneumonia Intubated in ED 05/28/16 following cardiac arrest. S/p trach 06/[address] Bearden. - DuoNeb q6 hours. Albuterol q2 prn. - Pulmonology following. Trach is capped. ? Wean off trach per pulmonology. Cardiac arrest, secondary to hyperkalemia/ Pulmonary edema/ Nonischemic cardiomyopathy secondary to HTN/ cocaine abuse/ Elevated Troponin Cardiac cath 12/09/2012 - EF 40%, normal coronaries. Echo 05/31: EF 25-30%, no RWMA. Mild MR/TR. MEGAN 36 mmHg. - Continue hydralazine 25 tid, Clonidine 0.1 tid, Lopressor 25mg q6h, ASA 81 mg daily - Per cardiology-no intervention planned. - continue dialysis for volume management. Hepatitis C/ Elevated LFTs/ Free air - likely secondary to EGD/tube feeding insufflation US liver: Bilateral pleural effusions. Thick-walled gallbladder with minimal pericholecystic fluid. Minimal ascites. Echogenic atrophic right kidney. Mild nonspecific prominence of the main pancreatic duct. - Daily TF-Nepro@50ml/hr. - Monitor LFT's - Prevacid for GI prophylaxis. - Colace for bowel regimen. - He is eating more. Hold tube feeding. Request dietary consult to evaluate for PEG tube removal. Calorie count started. ESRD/ Acute severe hyperkalemia/ Hypophosphatemia Emergent HD 05/28 due to potassium of 6.8 with bradycardia and cardiac arrest. - Continue Hemodialysis per nephrology. - Continue PhosLo 667 mg 3 times a day. - monitor electrolytes as needed. Protein calorie malnutrition S/P EGD with PEG placement 06/13/2016. - Patient currently on TF and meals - Consult estimator and drafter supervisor to reevaluate need for tube feeding. Healthcare associated pneumonia S/p Zosyn 2.25 g IV every 8 hours 05/29 - 06/12. Azithro x 10 days.05/28 nasal washing negative for Influenza. - continue to monitor off antibiotics. Normocytic Anemia requiring transfusion, previously from acute blood loss from PEG tube 3 unit prbc, 1 FFP, 1 plt. DDAVP. Coags within normal limits. Received 16 mg DDAVP and [address] Kevin/hematology followed. Von Willebrand antigen factor normal - Hgb has been stable. Continue to monitor. Prophylaxis: Heparin subcutaneous/ Prevacid 30 mg daily for stress ulcer prophylaxis. Discharge Planning Awaiting clinical improvement. Problem Qualifiers (1) Hypertension: Qualified Code: I10 - Essential hypertension (2) DM (diabetes mellitus): Qualified Code: E11.22 - Type 2 diabetes mellitus with diabetic chronic kidney disease, unspecified CKD stage, unspecified buttermaker helper insulin use status Surendra Hassan DO Jul 20, 2016 16:14 Qualified Code: E11.22 - Type 2 diabetes mellitus with diabetic chronic kidney disease, unspecified CKD stage, unspecified longterm insulin use status Surendra Hassan DO Jul 20, 2016 16:14
--- NOTE | 2016-07-20 19:27 | HHI.PR ---
Subjective Remarks 60 YOAA male with RF, trach, ESRDs/p cardiac arrest Small amount of trach secretions Afebrile, Trach capped, tolerating well Good appetite Objective Vital Signs Vital Signs Date Time Temp Pulse Resp B/P Pulse Ox O2 Delivery O2 Flow Rate FiO2 07/20/16 17:25 99 21 07/20/16 12:53 94 120/71 07/20/16 11:53 98.7 95 16 148/69 99 07/20/16 10:43 97 21 07/20/16 08:00 85 07/20/16 08:00 98.2 92 20 156/74 94 07/20/16 08:00 96 Room Air 21 07/20/16 04:00 97.5 95 20 138/67 96 07/20/16 00:00 97.0 86 20 112/59 98 07/19/16 20:30 87 07/19/16 20:00 95.4 83 20 153/67 100 07/19/16 20:00 Room Air I/O 07/19/16 07/19/16 07/19/16 07/20/16 07/20/16 07/20/16 07:00 15:00 23:00 07:00 15:00 23:00 Intake Total 1404 ml 419 ml 594 ml 120 ml Output Total 800 ml 3000 ml Balance 604 ml -3000 ml 419 ml 594 ml 120 ml Intake Oral 170 ml 120 ml 120 ml IV Total 1234 ml 419 ml Tube Feeding 274 ml Other 200 ml Output Urine Total 800 ml Hemodialysis 3000 ml # Voids 2 0 # Bowel Movements 0 1 0 Result Diagram: 07/17/1659 07/17/1659 Objective Remarks GENERAL: WBWN AA male, no distress SKIN: Warm and dry. HEAD: Normocephalic. EYES: No scleral icterus. No injection or drainage. NECK: Supple, trachea midline. No JVD or lymphadenopathy. Has Trach CARDIOVASCULAR: Regular rate and rhythm without murmurs, gallops, or rubs. RESPIRATORY: Breath sounds equal bilaterally. No accessory muscle use. GASTROINTESTINAL: Abdomen soft, non-tender, nondistended. PEG Tube in place MUSCULOSKELETAL: No cyanosis, or edema. BACK: Nontender without obvious deformity. No CVA tenderness. A/P Assessment and Plan RF, s/p Trach ESRD Non-ischemic CMP H/O CVA Coccaine use DM PLAN: Cont trach collar Aerosol nebs cont TF Seraquel 50 mg bid Stable on Trach collar SQ Heparin. Will dc trach in AM Master Krause MD Jul 20, 2016 19:27
[2016-07-21] VITALS (8 sets, daily range): BP systolic 123–173; BP diastolic 71–77; PULSE 81–95; RESP 16–20; TEMP 97.2–98.5; O2SAT 95–100
[2016-07-21] MEDS: HEPARIN SODIUM - SQ 10,000 UNITS/ML VIAL SQ SCH ×2 (02:00→14:00)
[2016-07-21] MEDS: METOPROLOL TARTRATE 25 MG TAB PO/NG SCH ×3 (06:01→18:28)
[2016-07-21 07:58] LABS: HEMATOCRIT 32.3 % (39.0-51.0); MEAN CELL VOLUME 90.7 FL (80.0-100.0); MEAN CORPUSCULAR HEMOGLOBIN 29.9 PG (27.0-34.0); MEAN CORPUSCULAR HGB CONC 32.9 % (32.0-36.0); PLATELET COUNT 184 TH/MM3 (150-450); RED BLOOD COUNT 3.56 MIL/MM3 (4.50-5.90); RED CELL DISTRIBUTION WIDTH 16.3 % (11.6-17.2); REVIEW FLAG FINAL; WHITE BLOOD COUNT 6.9 TH/MM3 (4.0-11.0)
[2016-07-21 08:33] LABS: BICARBONATE 26.6 MEQ/L (21.0-32.0); POTASSIUM 4.5 MEQ/L (3.5-5.1)
[2016-07-21] MEDS: hydrALAZINE HCL 100 MG TAB PO SCH ×3 (09:00→18:00)
[2016-07-21] MEDS: LANSOPRAZOLE SOLUTAB 30 MG TAB NG SCH (09:19)
[2016-07-21] MEDS: cloNIDine HCL 0.1 MG TAB PO SCH ×3 (09:19→18:28)
[2016-07-21] MEDS: DOCUSATE SODIUM 100 MG/10 ML UDC PO SCH ×2 (09:20→22:15)
[2016-07-21] MEDS: QUEtiapine FUMARATE 25 MG TAB PO SCH ×2 (09:20→22:15)
[2016-07-21] MEDS: SODIUM CHLORIDE 0.9% FLUSH 5 ML FLUSH IV FLUSH SCH ×2 (09:26→22:15)
[2016-07-21] MEDS: EPOETIN ALFA 10,000 UNITS/ML VIAL IV PRN (13:12)
[2016-07-21] MEDS: GELATIN 12 MM/7 MM FOAM TOP PRN (13:33)
[2016-07-21] MEDS: SODIUM CHLOR 0.9% 1000 ML INJ 1,000 ML IV PRN (13:33)
--- NOTE | 2016-07-21 13:50 | HHI.NPPN ---
Subjective General Problems: Anemia Renal Failure: Chronic, End Stage Renal Disease Additional Remarks Patient is alert, seen during HD, no complain. Review of Systems General General Remarks unable to evaluate due to mental status Objective Data Data 07/20/16 07/21/16 19:00 07:00 Intake Total 120 ml 1049 ml Balance 120 ml 1049 ml Intake Oral 120 ml 690 ml Tube Feeding 359 ml # Voids 0 1 # Bowel Movements 0 0 Vital Signs Date Time Temp Pulse Resp B/P Pulse Ox O2 Delivery O2 Flow Rate FiO2 07/21/16 10:06 99 07/21/16 08:00 97.8 86 19 152/72 100 07/21/16 04:57 98.5 81 16 173/77 95 07/21/16 00:24 97.2 95 18 167/72 98 07/20/16 20:20 97.7 84 16 141/69 94 07/20/16 20:00 80 07/20/16 19:50 Room Air 07/20/16 17:25 99 21 -: 07/21/16 0730 07/21/16 0730 Tubes & Lines Comment trach, PEG Drip Comment Precedex Physical Exam General Appearance: No Acute Distress Eyes Eye Exam: Pupils Equal, Pupils Reactive Neck Neck Exam: Neck Supple Pulmonary Resp Exam: Breath Sounds Equal, Crackles, Decreased Bases, Diminished Breath Sounds Cardiology CV Exam: Regular, Normal Sinus Rhythm, Good Perfusion Gastrointestinal/Abdomen GI Exam: Soft, Non-Tender, Bowel Sounds Present, Non-Distended Extremeties Extremities Exam: Trace Edema Neurologic Neuro Exam: Alert Assessment/Plan Discussed Condition With: Patient Assessment Summary: Anemia of CKD, Hypertension, End Stage Renal Disease Electrolyte Assessment: Hypocalcemia Problem List: (1) ESRD on dialysis Plan: Continue dialysis T-Th-Mon, on Epogen for anemia. alert and oriented talking to family HD to continue TTS. HD now, remove fluid as tolerated. Spoke to Dr. Krause, he will consider Trach. removal if patient is stable. (2) Anemia Plan: Last hemoglobin stable (3) Hypertension Plan: BP stable. He is on metoprolol, hydralazine, clonidine with hold parameters (4) DM (diabetes mellitus) Plan: continue insulin coverage goal to maintain blood glucose between 140 and 180 off D10 , tube feeding was resumed (5) NSTEMI (non-ST elevated myocardial infarction) Plan: Troponin I elevated post cardiac arrest, chest compressions. he had catheterization in January 2016, normal coronary arteries (6) Elevated LFTs Plan: improved. (7) Cocaine abuse Plan: Cessation has been recommended. (8) Encephalopathy Plan: s/p trach placement. Encephalopathy resolved Problem Qualifiers (1) Anemia: Qualified Code: D64.9 - Anemia, unspecified type (2) Hypertension: Qualified Code: I10 - Essential hypertension (3) DM (diabetes mellitus): Qualified Code: E11.22 - Type 2 diabetes mellitus with diabetic chronic kidney disease, unspecified CKD stage, unspecified jail insulin use status Severo Peck MD Jul 21, 2016 13:50
--- NOTE | 2016-07-21 15:12 | HHI.PR ---
Subjective Remarks The patient was sitting upright in bed. He was eating lunch. He had no acute complaints. Discussed with nursing, he was decannulated earlier. Objective Vitals Vital Signs Date Time Temp Pulse Resp B/P Pulse Ox O2 Delivery O2 Flow Rate FiO2 07/21/16 14:18 97 07/21/16 10:06 99 07/21/16 08:00 96 Room Air 21 07/21/16 08:00 97.8 86 19 152/72 100 07/21/16 08:00 85 07/21/16 04:57 98.5 81 16 173/77 95 07/21/16 00:24 97.2 95 18 167/72 98 07/20/16 20:20 97.7 84 16 141/69 94 07/20/16 20:00 80 07/20/16 19:50 Room Air 07/20/16 17:25 99 21 I/O 07/20/16 07/20/16 07/20/16 07/21/16 07/21/16 07/21/16 07:00 15:00 23:00 07:00 15:00 23:00 Intake Total 594 ml 120 ml 690 ml 359 ml 480 ml Output Total 3000 ml Balance 594 ml 120 ml 690 ml 359 ml -2520 ml Intake Oral 120 ml 120 ml 690 ml 480 ml Tube Feeding 274 ml 359 ml Other 200 ml Hemodialysis 3000 ml # Voids 2 0 1 0 # Bowel Movements 1 0 0 0 Result Diagram: 07/21/16 0730 07/21/16 0730 Imaging Last Impressions Chest X-Ray 06/23/16 0600 Signed Impressions: Service Date/Time: June 03:02 - CONCLUSION: No significant change. Minh Aponte MD Abdomen X-Ray 06/16/16 0000 Signed Impressions: Service Date/Time: May 09:12 - CONCLUSION: Apparent appropriate placement of gastric tube placement. Amaris Rosenberg MD Abdomen/Pelvis CT 06/15/16 0000 Signed Impressions: Service Date/Time: Wednesday, June 15, 2016 13:16 - CONCLUSION: Significant free intraperitoneal air. Consolidative changes in both bases with small bilateral pleural effusions. Mikhail Abrams MD FACR Brain MRI 06/10/16 0000 Signed Impressions: Service Date/Time: Friday, June 10, 2016 20:14 - CONCLUSION: 1. Mild chronic-appearing ischemic changes in the periventricular white matter slightly progressed from 2014. No recent infarct, mass effect or midline shift. No hydrocephalus. Lakhwinder Pringle MD Liver Ultrasound 06/01/16 0000 Signed Impressions: Service Date/Time: Wednesday, June 01, 2016 15:38 - CONCLUSION: 1. Bilateral pleural effusions. 2. Thick-walled gallbladder with minimal pericholecystic fluid. If there is clinical concern for acute cholecystitis a hepatobiliary scan may be helpful to confirm cystic duct obstruction. 3. Minimal ascites. 4. Echogenic atrophic right kidney. 5. Mild nonspecific prominence of the main pancreatic duct. Enzo Price MD Head CT 05/29/16 0000 Signed Impressions: Service Date/Time: Sunday, May 29, 2016 03:03 - CONCLUSION: Age- appropriate atrophy, stable from prior in September 2015. No acute findings. Earnest oTrre MD Lower Extremity Ultrasound 05/28/16 0000 Signed Impressions: Service Date/Time: Saturday, May 28, 2016 22:27 - CONCLUSION: Negative for deep venous thrombosis bilateral lower extremity. Earnest Torre MD Objective Remarks GENERAL: No apparent distress. NECK: Decannulated, bandage in place. CARDIOVASCULAR: Normal rate and regular rhythm without murmurs, gallops, or rubs. RESPIRATORY: Poor respiratory efforts. Breath sounds equal and clear to auscultation bilaterally. GASTROINTESTINAL: Abdomen soft, non-tender, non-distended. Normal active bowel sounds MUSCULOSKELETAL: Extremities without cyanosis, or edema. NEURO: Awake and alert. Moves all ext x4. Normal speech. Some confusion PSYCH: Flattened affect. Medications and IVs Current Medications Medications (Trade) Dose Ordered Sig/Crispin Route Start Time Stop Time Status Last Admin (NS Flush) 2 ml UNSCH PRN IV FLUSH 05/28/16 20:45 05/29/16 08:46 (NS Flush) 2 ml BID IV FLUSH 05/28/16 21:00 07/21/16 09:26 Ondansetron HCl 4 mg 4 mg Q6H PRN IV 05/28/16 20:45 (NS 1000 ml Inj) 1,000 ml @ 0 mls/hr Q0M PRN IV 05/28/16 20:53 07/21/16 13:33 Heparin Sodium (Porcine) 8000 units 8,000 units UNSCH PRN IVF 05/28/16 21:00 Sodium Chloride 1,000 ml @ 200 mls/hr Q5H PRN IV 05/28/16 20:53 07/16/16 15:46 (NS 1000 ml Inj) 1,000 ml @ 0 mls/hr Q0M PRN IV 05/28/16 20:53 06/18/16 08:18 (Mannitol Inj) 12.5 gm UNSCH PRN IV 05/28/16 21:00 (Albumin 25% Inj) 25 gm UNSCH PRN IV 05/28/16 21:00 06/14/16 11:12 (NS Flush) 5 ml UNSCH PRN IVF 05/28/16 21:00 (Heparin Inj) UNSCH PRN .XX 05/28/16 21:00 05/30/16 13:08 (Gentamicin (Dialysis) Inj) 20 mg UNSCH PRN IV 05/28/16 21:00 (Zofran Inj) 4 mg UNSCH PRN IV 05/28/16 21:00 (Tylenol) 650 mg UNSCH PRN PO 05/28/16 21:00 07/10/16 23:20 (Benadryl) 25 mg UNSCH PRN PO 05/28/16 21:00 (Nitrostat Sl) 0.4 mg UNSCH PRN SL 05/28/16 21:00 (Catapres) 0.1 mg UNSCH PRN PO 05/28/16 21:00 07/04/16 04:19 (Gelfoam 12 Mm/7 Mm Top) 1 foam UNSCH PRN TOP 05/28/16 21:00 07/21/16 13:33 (Ecotrin Ec) 81 mg DAILY PO 05/29/16 09:00 Hold 06/13/16 08:02 (Catapres) 0.1 mg TID PO 05/29/16 09:00 07/21/16 09:19 (Ativan Inj) 2 mg Q4H PRN IV PUSH 05/29/16 18:00 07/07/16 22:01 (Lopressor) 25 mg Q6HR PO/NG 05/31/16 12:00 07/21/16 06:01 (Phoslo) 667 mg TID NG 05/31/16 13:00 Hold 06/25/16 13:00 (D50w (Vial) Inj) 25 ml UNSCH PRN IV PUSH 06/01/16 08:45 (Glucagon Inj) 1 mg UNSCH PRN OTHER 06/01/16 08:45 (Neosporin Oint) 1 applic Q12HR TOPICAL 06/16/16 21:00 07/20/16 21:00 (Heparin Inj) 5,000 units Q12H SQ 06/20/16 02:00 07/21/16 02:00 (Epogen Inj) 10,000 units UNSCH PRN IV 06/23/16 11:00 07/21/16 13:12 (Prevacid Odt) 30 mg DAILY NG 06/25/16 09:00 07/21/16 09:19 (Colace Liq) 100 mg Q12HR PO 06/24/16 21:00 07/21/16 09:20 (SEROquel) 50 mg BID PO 06/26/16 21:00 07/21/16 09:20 (Haldol Inj) 5 mg Q8HR PRN IM 06/28/16 09:45 07/06/16 21:29 (Apresoline) 100 mg TID PO 06/30/16 13:00 07/21/16 09:00 (Nephrocaps) 1 cap DAILY PO 07/01/16 10:30 Hold A/P Problem List: (1) Encephalopathy, metabolic ICD Code: G93.41 Status: Acute (2) HCAP (healthcare-associated pneumonia) ICD Code: J18.9 Status: Acute (3) Hyperkalemia, diminished renal excretion ICD Code: E87.5 Status: Acute (4) Hypertension ICD Code: I10 Status: Chronic (5) Hepatitis C ICD Code: B19.20 Status: Acute (6) ESRD on hemodialysis ICD Code: N18.6 Status: Chronic (7) DM (diabetes mellitus) ICD Code: E11.9 Status: Chronic (8) Bleeding from gastrostomy tube site ICD Code: K94.21 Status: Acute Assessment and Plan Acute encephalopathy/ History of stroke without residual deficit (per friend's report)/ History of cocaine abuse/ Posttraumatic stress disorder EEG 06/12 revealed mild sleep. No seizure activity noted. MRI brain revealed chronic vascular changes; No acute findings. Neuro previously followed the patient-Dr. Wilks. Questionable anoxic injury. Becoming more alert. - Haldol when necessary for agitation. Patient is improving and is more cooperative. - Continue Seroquel 50 mg twice a day. Acute respiratory failure/ Healthcare associated pneumonia Intubated in ED 05/28/16 following cardiac arrest. S/p trach 06/[address] Bearden. - DuoNeb q6 hours. Albuterol q2 prn. - Pulmonology following. Decannulated 07/21. Cardiac arrest, secondary to hyperkalemia/ Pulmonary edema/ Nonischemic cardiomyopathy secondary to HTN/ cocaine abuse/ Elevated Troponin Cardiac cath 12/09/2012 - EF 40%, normal coronaries. Echo 05/31: EF 25-30%, no RWMA. Mild MR/TR. MEGAN 36 mmHg. - Continue hydralazine 25 tid, Clonidine 0.1 tid, Lopressor 25mg q6h, ASA 81 mg daily - Per cardiology-no intervention planned. - continue dialysis for volume management. Hepatitis C/ Elevated LFTs/ Free air - likely secondary to EGD/tube feeding insufflation US liver: Bilateral pleural effusions. Thick-walled gallbladder with minimal pericholecystic fluid. Minimal ascites. Echogenic atrophic right kidney. Mild nonspecific prominence of the main pancreatic duct. - Daily TF-Nepro@50ml/hr. - Prevacid for GI prophylaxis. - Colace for bowel regimen. - He is eating more. Hold tube feeding. Request dietary consult to evaluate for PEG tube removal. Calorie count started. ESRD/ Acute severe hyperkalemia/ Hypophosphatemia Emergent HD 05/28 due to potassium of 6.8 with bradycardia and cardiac arrest. - Continue Hemodialysis per nephrology. - Continue PhosLo 667 mg 3 times a day. - monitor electrolytes as needed. Protein calorie malnutrition S/P EGD with PEG placement 06/13/2016. - Patient currently on TF and meals - Consult junior automation engineer to reevaluate need for tube feeding. Healthcare associated pneumonia S/p Zosyn 2.25 g IV every 8 hours 05/29 - 06/12. Azithro x 10 days.05/28 nasal washing negative for Influenza. - continue to monitor off antibiotics. Normocytic Anemia requiring transfusion, previously from acute blood loss from PEG tube 3 unit prbc, 1 FFP, 1 plt. DDAVP. Coags within normal limits. Received 16 mg DDAVP and [address] Kevin/hematology followed. Von Willebrand antigen factor normal - Hgb has been stable. Continue to monitor. Prophylaxis: Heparin subcutaneous/ Prevacid 30 mg daily for stress ulcer prophylaxis. Discharge Planning Would benefit from SNF placement. Problem Qualifiers (1) Hypertension: Qualified Code: I10 - Essential hypertension (2) DM (diabetes mellitus): Qualified Code: E11.22 - Type 2 diabetes mellitus with diabetic chronic kidney disease, unspecified CKD stage, unspecified fpc insulin use status Surendra Hassan DO Jul 21, 2016 15:12
--- NOTE | 2016-07-21 18:33 | HHI.PR ---
Subjective Remarks 60 YOAA male with RF, trach, ESRDs/p cardiac arrest Trach removed On no sob Afebrile, Objective Vital Signs Vital Signs Date Time Temp Pulse Resp B/P Pulse Ox O2 Delivery O2 Flow Rate FiO2 07/21/16 16:00 97.9 88 18 165/71 99 07/21/16 14:18 97 07/21/16 10:06 99 07/21/16 08:00 96 Room Air 21 07/21/16 08:00 97.8 86 19 152/72 100 07/21/16 08:00 85 07/21/16 04:57 98.5 81 16 173/77 95 07/21/16 00:24 97.2 95 18 167/72 98 07/20/16 20:20 97.7 84 16 141/69 94 07/20/16 20:00 80 07/20/16 19:50 Room Air I/O 07/20/16 07/20/16 07/20/16 07/21/16 07/21/16 07/21/16 07:00 15:00 23:00 07:00 15:00 23:00 Intake Total 594 ml 120 ml 690 ml 359 ml 480 ml Output Total 3000 ml Balance 594 ml 120 ml 690 ml 359 ml -2520 ml Intake Oral 120 ml 120 ml 690 ml 480 ml Tube Feeding 274 ml 359 ml Other 200 ml Hemodialysis 3000 ml # Voids 2 0 1 0 # Bowel Movements 1 0 0 0 Result Diagram: 07/21/16 0730 07/21/16 0730 Objective Remarks GENERAL: WBWN AA male, no distress SKIN: Warm and dry. HEAD: Normocephalic. EYES: No scleral icterus. No injection or drainage. NECK: Supple, trachea midline. No JVD or lymphadenopathy. CARDIOVASCULAR: Regular rate and rhythm without murmurs, gallops, or rubs. RESPIRATORY: Breath sounds equal bilaterally. No accessory muscle use. GASTROINTESTINAL: Abdomen soft, non-tender, nondistended. PEG Tube in place MUSCULOSKELETAL: No cyanosis, or edema. BACK: Nontender without obvious deformity. No CVA tenderness. A/P Assessment and Plan RF, s/p Trach Removal 07/21 ESRD Non-ischemic CMP H/O CVA Coccaine use DM PLAN: Aerosol nebs cont TF Seraquel 50 mg bid Stable on Trach collar SQ Heparin. Stable on RA Master Krause MD Jul 21, 2016 18:33
[2016-07-21] MEDS: NEOMYCIN/POLYMYXIN/BACITRACIN OINT 15 GM TUBE TOPICAL SCH (21:00)
[2016-07-22] VITALS (7 sets, daily range): BP systolic 121–161; BP diastolic 56–81; PULSE 78–86; RESP 18–20; TEMP 97–98.1; O2SAT 94–100
[2016-07-22] MEDS: HEPARIN SODIUM - SQ 10,000 UNITS/ML VIAL SQ SCH ×3 (01:30→23:06)
[2016-07-22] MEDS: METOPROLOL TARTRATE 25 MG TAB PO/NG SCH ×5 (05:38→23:06)
[2016-07-22] MEDS: DOCUSATE SODIUM 100 MG/10 ML UDC PO SCH ×2 (08:59→21:23)
[2016-07-22] MEDS: LANSOPRAZOLE SOLUTAB 30 MG TAB NG SCH (08:59)
[2016-07-22] MEDS: hydrALAZINE HCL 100 MG TAB PO SCH ×3 (09:00→17:41)
[2016-07-22] MEDS: cloNIDine HCL 0.1 MG TAB PO SCH ×3 (09:00→17:40)
[2016-07-22] MEDS: QUEtiapine FUMARATE 25 MG TAB PO SCH ×2 (09:00→21:23)
[2016-07-22] MEDS: SODIUM CHLORIDE 0.9% FLUSH 5 ML FLUSH IV FLUSH SCH ×2 (09:01→21:25)
[2016-07-22] MEDS: NEOMYCIN/POLYMYXIN/BACITRACIN OINT 15 GM TUBE TOPICAL SCH ×2 (09:01→21:25)
--- NOTE | 2016-07-22 09:30 | HHI.PR ---
Subjective Remarks The patient was looking for his breakfast. He said he was hungry. He denied any pain. He had no other acute complaints. Objective Vitals Vital Signs Date Time Temp Pulse Resp B/P Pulse Ox O2 Delivery O2 Flow Rate FiO2 07/22/16 08:00 97.5 83 18 143/77 94 07/22/16 04:00 98.1 79 20 141/67 100 07/22/16 00:00 98.0 86 18 129/61 99 07/21/16 22:24 Room Air 07/21/16 20:14 88 07/21/16 20:00 98.0 81 20 123/73 97 07/21/16 16:00 97.9 88 18 165/71 99 07/21/16 14:18 97 07/21/16 10:06 99 I/O 07/21/16 07/21/16 07/21/16 07/22/16 07/22/16 07/22/16 07:00 15:00 23:00 07:00 15:00 23:00 Intake Total 359 ml 480 ml Output Total 3000 ml Balance 359 ml -2520 ml Intake Oral 480 ml Tube Feeding 359 ml Hemodialysis 3000 ml # Voids 0 # Bowel Movements 0 Result Diagram: 07/21/16 0730 07/21/16 0730 Imaging Last Impressions Chest X-Ray 06/23/16 0600 Signed Impressions: Service Date/Time: June 03:02 - CONCLUSION: No significant change. Minh Aponte MD Abdomen X-Ray 06/16/16 0000 Signed Impressions: Service Date/Time: May 09:12 - CONCLUSION: Apparent appropriate placement of gastric tube placement. Amaris Rosenberg MD Abdomen/Pelvis CT 06/15/16 0000 Signed Impressions: Service Date/Time: Wednesday, June 15, 2016 13:16 - CONCLUSION: Significant free intraperitoneal air. Consolidative changes in both bases with small bilateral pleural effusions. Mikhail Abrams MD FACR Brain MRI 06/10/16 0000 Signed Impressions: Service Date/Time: Friday, June 10, 2016 20:14 - CONCLUSION: 1. Mild chronic-appearing ischemic changes in the periventricular white matter slightly progressed from 2014. No recent infarct, mass effect or midline shift. No hydrocephalus. Lakhwinder Pringle MD Liver Ultrasound 06/01/16 0000 Signed Impressions: Service Date/Time: Wednesday, June 01, 2016 15:38 - CONCLUSION: 1. Bilateral pleural effusions. 2. Thick-walled gallbladder with minimal pericholecystic fluid. If there is clinical concern for acute cholecystitis a hepatobiliary scan may be helpful to confirm cystic duct obstruction. 3. Minimal ascites. 4. Echogenic atrophic right kidney. 5. Mild nonspecific prominence of the main pancreatic duct. Enzo Price MD Head CT 05/29/16 0000 Signed Impressions: Service Date/Time: Sunday, May 29, 2016 03:03 - CONCLUSION: Age- appropriate atrophy, stable from prior in September 2015. No acute findings. Earnest Torre MD Lower Extremity Ultrasound 05/28/16 0000 Signed Impressions: Service Date/Time: Saturday, May 28, 2016 22:27 - CONCLUSION: Negative for deep venous thrombosis bilateral lower extremity. Earnest Torre MD Objective Remarks GENERAL: No apparent distress. HEENT: NC, AT. NECK: Decannulated, bandage in place. CARDIOVASCULAR: Normal rate and regular rhythm without murmurs, gallops, or rubs. RESPIRATORY: Breath sounds equal and clear to auscultation bilaterally. GASTROINTESTINAL: Abdomen soft, non-tender, non-distended. Normal active bowel sounds MUSCULOSKELETAL: Extremities without cyanosis, or edema. NEURO: Awake and alert. Moves all ext x4. Normal speech. Some confusion PSYCH: Flattened affect. Medications and IVs Current Medications Medications (Trade) Dose Ordered Sig/Crispin Route Start Time Stop Time Status Last Admin (NS Flush) 2 ml UNSCH PRN IV FLUSH 05/28/16 20:45 05/29/16 08:46 (NS Flush) 2 ml BID IV FLUSH 05/28/16 21:00 07/22/16 09:01 Ondansetron HCl 4 mg 4 mg Q6H PRN IV 05/28/16 20:45 (NS 1000 ml Inj) 1,000 ml @ 0 mls/hr Q0M PRN IV 05/28/16 20:53 07/21/16 13:33 Heparin Sodium (Porcine) 8000 units 8,000 units UNSCH PRN IVF 05/28/16 21:00 Sodium Chloride 1,000 ml @ 200 mls/hr Q5H PRN IV 05/28/16 20:53 07/16/16 15:46 (NS 1000 ml Inj) 1,000 ml @ 0 mls/hr Q0M PRN IV 05/28/16 20:53 06/18/16 08:18 (Mannitol Inj) 12.5 gm UNSCH PRN IV 05/28/16 21:00 (Albumin 25% Inj) 25 gm UNSCH PRN IV 05/28/16 21:00 06/14/16 11:12 (NS Flush) 5 ml UNSCH PRN IVF 05/28/16 21:00 (Heparin Inj) UNSCH PRN .XX 05/28/16 21:00 05/30/16 13:08 (Gentamicin (Dialysis) Inj) 20 mg UNSCH PRN IV 05/28/16 21:00 (Zofran Inj) 4 mg UNSCH PRN IV 05/28/16 21:00 (Tylenol) 650 mg UNSCH PRN PO 05/28/16 21:00 07/10/16 23:20 (Benadryl) 25 mg UNSCH PRN PO 05/28/16 21:00 (Nitrostat Sl) 0.4 mg UNSCH PRN SL 05/28/16 21:00 (Catapres) 0.1 mg UNSCH PRN PO 05/28/16 21:00 07/04/16 04:19 (Gelfoam 12 Mm/7 Mm Top) 1 foam UNSCH PRN TOP 05/28/16 21:00 07/21/16 13:33 (Ecotrin Ec) 81 mg DAILY PO 05/29/16 09:00 Hold 06/13/16 08:02 (Catapres) 0.1 mg TID PO 05/29/16 09:00 07/22/16 09:00 (Ativan Inj) 2 mg Q4H PRN IV PUSH 05/29/16 18:00 07/07/16 22:01 (Lopressor) 25 mg Q6HR PO/NG 05/31/16 12:00 07/22/16 05:38 (Phoslo) 667 mg TID NG 05/31/16 13:00 Hold 06/25/16 13:00 (D50w (Vial) Inj) 25 ml UNSCH PRN IV PUSH 06/01/16 08:45 (Glucagon Inj) 1 mg UNSCH PRN OTHER 06/01/16 08:45 (Neosporin Oint) 1 applic Q12HR TOPICAL 06/16/16 21:00 07/22/16 09:01 (Heparin Inj) 5,000 units Q12H SQ 06/20/16 02:00 07/22/16 01:30 (Epogen Inj) 10,000 units UNSCH PRN IV 06/23/16 11:00 07/21/16 13:12 (Prevacid Odt) 30 mg DAILY NG 06/25/16 09:00 07/22/16 08:59 (Colace Liq) 100 mg Q12HR PO 06/24/16 21:00 07/22/16 08:59 (SEROquel) 50 mg BID PO 06/26/16 21:00 07/22/16 09:00 (Haldol Inj) 5 mg Q8HR PRN IM 06/28/16 09:45 07/06/16 21:29 (Apresoline) 100 mg TID PO 06/30/16 13:00 07/22/16 09:00 (Nephrocaps) 1 cap DAILY PO 07/01/16 10:30 Hold A/P Problem List: (1) Encephalopathy, metabolic ICD Code: G93.41 Status: Acute (2) HCAP (healthcare-associated pneumonia) ICD Code: J18.9 Status: Acute (3) Hyperkalemia, diminished renal excretion ICD Code: E87.5 Status: Acute (4) Hypertension ICD Code: I10 Status: Chronic (5) Hepatitis C ICD Code: B19.20 Status: Acute (6) ESRD on hemodialysis ICD Code: N18.6 Status: Chronic (7) DM (diabetes mellitus) ICD Code: E11.9 Status: Chronic (8) Bleeding from gastrostomy tube site ICD Code: K94.21 Status: Acute Assessment and Plan Acute encephalopathy/ History of stroke without residual deficit (per friend's report)/ History of cocaine abuse/ Posttraumatic stress disorder EEG 06/12 revealed mild sleep. No seizure activity noted. MRI brain revealed chronic vascular changes; No acute findings. Neuro previously followed the patient-Dr. Wilks. Questionable anoxic injury. Becoming more alert. - Haldol when necessary for agitation. Patient is improving and is more cooperative. - Continue Seroquel 50 mg twice a day. Acute respiratory failure/ Healthcare associated pneumonia Intubated in ED 05/28/16 following cardiac arrest. S/p trach 06/[address] Bearden. - DuoNeb q6 hours. Albuterol q2 prn. - Pulmonology following. Decannulated 07/21. Tolerating well. Cardiac arrest, secondary to hyperkalemia/ Pulmonary edema/ Nonischemic cardiomyopathy secondary to HTN/ cocaine abuse/ Elevated Troponin Cardiac cath 12/09/2012 - EF 40%, normal coronaries. Echo 05/31: EF 25-30%, no RWMA. Mild MR/TR. MEGAN 36 mmHg. - Continue hydralazine 25 tid, Clonidine 0.1 tid, Lopressor 25mg q6h, ASA 81 mg daily. Blood pressure well controlled 07/22. - Per cardiology-no intervention planned. - continue dialysis for volume management. Hepatitis C/ Elevated LFTs/ Free air - likely secondary to EGD/tube feeding insufflation US liver: Bilateral pleural effusions. Thick-walled gallbladder with minimal pericholecystic fluid. Minimal ascites. Echogenic atrophic right kidney. Mild nonspecific prominence of the main pancreatic duct. - Daily TF-Nepro@50ml/hr. - Prevacid for GI prophylaxis. - Colace for bowel regimen. - He is eating more. Hold tube feeding. Request dietary consult to evaluate for PEG tube removal. Calorie count started. ESRD/ Acute severe hyperkalemia/ Hypophosphatemia Emergent HD 05/28 due to potassium of 6.8 with bradycardia and cardiac arrest. - Continue Hemodialysis per nephrology. - Continue PhosLo 667 mg 3 times a day. - monitor electrolytes as needed. Protein calorie malnutrition S/P EGD with PEG placement 06/13/2016. - Patient currently on TF and meals - Consult ssrs developer to reevaluate need for tube feeding. Healthcare associated pneumonia S/p Zosyn 2.25 g IV every 8 hours 05/29 - 06/12. Azithro x 10 days.05/28 nasal washing negative for Influenza. - continue to monitor off antibiotics. Stable. Normocytic Anemia requiring transfusion, previously from acute blood loss from PEG tube 3 unit prbc, 1 FFP, 1 plt. DDAVP. Coags within normal limits. Received 16 mg DDAVP and [address] Kevin/hematology followed. Von Willebrand antigen factor normal - Hgb has been stable. Continue to monitor. Prophylaxis: Heparin subcutaneous/ Prevacid 30 mg daily for stress ulcer prophylaxis. Discharge Planning Would benefit from SNF placement. Problem Qualifiers (1) Hypertension: Qualified Code: I10 - Essential hypertension (2) DM (diabetes mellitus): Qualified Code: E11.22 - Type 2 diabetes mellitus with diabetic chronic kidney disease, unspecified CKD stage, unspecified custodial insulin use status Surendra Hassan DO Jul 22, 2016 09:30
--- NOTE | 2016-07-22 17:33 | HHI.PR ---
Subjective Remarks 60 YOAA male with RF, trach, ESRDs/p cardiac arrest Trach removed On RA no sob Afebrile, no new complaint Objective Vital Signs Vital Signs Date Time Temp Pulse Resp B/P Pulse Ox O2 Delivery O2 Flow Rate FiO2 07/22/16 12:00 98.1 85 18 121/56 99 07/22/16 10:19 97 21 07/22/16 08:20 Room Air 07/22/16 08:00 97.5 83 18 143/77 94 07/22/16 04:00 98.1 79 20 141/67 100 07/22/16 00:00 98.0 86 18 129/61 99 07/21/16 22:24 Room Air 07/21/16 20:14 88 07/21/16 20:00 98.0 81 20 123/73 97 I/O 07/21/16 07/21/16 07/21/16 07/22/16 07/22/16 07/22/16 07:00 15:00 23:00 07:00 15:00 23:00 Intake Total 359 ml 480 ml 202 ml Output Total 3000 ml Balance 359 ml -2520 ml 202 ml Intake Oral 480 ml IV Total 2 ml Tube Feeding 359 ml 200 ml Hemodialysis 3000 ml # Voids 0 # Bowel Movements 0 Result Diagram: 07/21/16 0730 07/21/16 0730 Objective Remarks GENERAL: WBWN AA male, no distress SKIN: Warm and dry. HEAD: Normocephalic. EYES: No scleral icterus. No injection or drainage. NECK: Supple, trachea midline. No JVD or lymphadenopathy. CARDIOVASCULAR: Regular rate and rhythm without murmurs, gallops, or rubs. RESPIRATORY: Breath sounds equal bilaterally. No accessory muscle use. GASTROINTESTINAL: Abdomen soft, non-tender, nondistended. PEG Tube in place MUSCULOSKELETAL: No cyanosis, or edema. BACK: Nontender without obvious deformity. No CVA tenderness. A/P Assessment and Plan RF, s/p Trach Removal 07/21 ESRD Non-ischemic CMP H/O CVA Coccaine use DM PLAN: Aerosol nebs cont TF Seraquel 50 mg bid Stable on Trach collar SQ Heparin. Stable on RA Available prn over weekend. Master Krause MD Jul 22, 2016 17:32
[2016-07-23] VITALS: BP 120/59; PULSE 75; RESP 20; TEMP 98; O2SAT 96
[2016-07-23 04:00] VITALS: BP 124/58; PULSE 75; RESP 18; TEMP 97.8; O2SAT 99
[2016-07-23] MEDS: METOPROLOL TARTRATE 25 MG TAB PO/NG SCH ×3 (05:07→17:29)
[2016-07-23] MEDS: SODIUM CHLORIDE 0.9% FLUSH 5 ML FLUSH IV FLUSH SCH ×2 (09:00→20:48)
[2016-07-23] MEDS: NEOMYCIN/POLYMYXIN/BACITRACIN OINT 15 GM TUBE TOPICAL SCH ×2 (09:00→20:46)
[2016-07-23] MEDS: QUEtiapine FUMARATE 25 MG TAB PO SCH ×2 (09:00→20:42)
[2016-07-23] MEDS: LANSOPRAZOLE SOLUTAB 30 MG TAB NG SCH (09:00)
[2016-07-23] MEDS: cloNIDine HCL 0.1 MG TAB PO SCH ×3 (09:00→17:29)
[2016-07-23] MEDS: hydrALAZINE HCL 100 MG TAB PO SCH ×3 (09:00→17:28)
[2016-07-23] MEDS: DOCUSATE SODIUM 100 MG/10 ML UDC PO SCH ×2 (09:00→20:42)
[2016-07-23] MEDS: EPOETIN ALFA 10,000 UNITS/ML VIAL IV PRN (09:25)
[2016-07-23] MEDS: GELATIN 12 MM/7 MM FOAM TOP PRN (09:25)
[2016-07-23] MEDS: SODIUM CHLOR 0.9% 1000 ML INJ 1,000 ML IV PRN (09:25)
--- NOTE | 2016-07-23 11:04 | HHI.NPPN ---
Subjective General Problems: Anemia Renal Failure: Chronic, End Stage Renal Disease Additional Remarks Patient is alert, seen during HD, no complain. Review of Systems General General Remarks unable to evaluate due to mental status Objective Data Data 07/22/16 07/23/16 19:00 07:00 Intake Total 1162 ml 693 ml Balance 1162 ml 693 ml Intake Oral 960 ml 240 ml IV Total 2 ml Tube Feeding 200 ml 453 ml # Voids 4 # Bowel Movements 2 Vital Signs Date Time Temp Pulse Resp B/P Pulse Ox O2 Delivery O2 Flow Rate FiO2 07/23/16 04:00 97.8 75 18 124/58 99 07/23/16 00:00 98.0 75 20 120/59 96 07/22/16 21:30 Room Air 07/22/16 20:00 79 07/22/16 20:00 97.8 81 20 161/81 97 07/22/16 16:00 97.0 78 18 131/59 97 07/22/16 12:00 98.1 85 18 121/56 99 -: 07/21/16 0730 07/21/16 0730 Tubes & Lines Comment trach, PEG Drip Comment Precedex Physical Exam General Appearance: No Acute Distress Eyes Eye Exam: Pupils Equal, Pupils Reactive Neck Neck Exam: Neck Supple Pulmonary Resp Exam: Breath Sounds Equal, Crackles, Decreased Bases, Diminished Breath Sounds Cardiology CV Exam: Regular, Normal Sinus Rhythm, Good Perfusion Gastrointestinal/Abdomen GI Exam: Soft, Non-Tender, Bowel Sounds Present, Non-Distended Extremeties Extremities Exam: Trace Edema Neurologic Neuro Exam: Alert Assessment/Plan Discussed Condition With: Patient Assessment Summary: Anemia of CKD, Hypertension, End Stage Renal Disease Electrolyte Assessment: Hypocalcemia Problem List: (1) ESRD on dialysis Plan: Continue dialysis T--Mon, on Epogen for anemia. HD to continue TTS. HD proceedings noted 2k/HCO3 UF 3 L, remove fluid as tolerated. (2) Anemia Plan: Last hemoglobin stable (3) Hypertension Plan: BP stable. He is on metoprolol, hydralazine, clonidine with hold parameters (4) DM (diabetes mellitus) Plan: continue insulin coverage goal to maintain blood glucose between 140 and 180 off D10 , tube feeding was resumed (5) NSTEMI (non-ST elevated myocardial infarction) Plan: Troponin I elevated post cardiac arrest, chest compressions. he had catheterization in January 2016, normal coronary arteries (6) Elevated LFTs Plan: improved. (7) Cocaine abuse Plan: Cessation has been recommended. (8) Encephalopathy Plan: s/p trach placement. Encephalopathy resolved Problem Qualifiers (1) Anemia: Qualified Code: D64.9 - Anemia, unspecified type (2) Hypertension: Qualified Code: I10 - Essential hypertension (3) DM (diabetes mellitus): Qualified Code: E11.22 - Type 2 diabetes mellitus with diabetic chronic kidney disease, unspecified CKD stage, unspecified senior care insulin use status Willy Arellano MD Jul 23, 2016 11:04
[2016-07-23 12:00] VITALS: BP 148/72; PULSE 87; RESP 18; TEMP 98; O2SAT 98
[2016-07-23] MEDS: HEPARIN SODIUM - SQ 10,000 UNITS/ML VIAL SQ SCH (12:38)
--- NOTE | 2016-07-23 14:28 | HHI.PR ---
Subjective Remarks The pt was eating lunch. He wanted to get the PEG tube removed. No complaints at this time. Nursing reports he did well at dialysis and had eaten two trays of food. No acute concerns. Objective Vitals Vital Signs Date Time Temp Pulse Resp B/P Pulse Ox O2 Delivery O2 Flow Rate FiO2 07/23/16 12:00 98.0 87 18 148/72 98 07/23/16 08:00 98 Room Air 07/23/16 04:00 97.8 75 18 124/58 99 07/23/16 00:00 98.0 75 20 120/59 96 07/22/16 21:30 Room Air 07/22/16 20:00 79 07/22/16 20:00 97.8 81 20 161/81 97 07/22/16 16:00 97.0 78 18 131/59 97 I/O 07/22/16 07/22/16 07/22/16 07/23/16 07/23/16 07/23/16 07:00 15:00 23:00 07:00 15:00 23:00 Intake Total 1162 ml 240 ml 453 ml Output Total 3000 ml Balance 1162 ml 240 ml 453 ml -3000 ml Intake Oral 960 ml 240 ml IV Total 2 ml Tube Feeding 200 ml 453 ml Hemodialysis 3000 ml # Voids 4 # Bowel Movements 2 Result Diagram: 07/21/16 0730 07/21/16 0730 Imaging Last Impressions Chest X-Ray 06/23/16 0600 Signed Impressions: Service Date/Time: June 03:02 - CONCLUSION: No significant change. Minh Aponte MD Abdomen X-Ray 06/16/16 0000 Signed Impressions: Service Date/Time: May 09:12 - CONCLUSION: Apparent appropriate placement of gastric tube placement. Amaris Rosenberg MD Abdomen/Pelvis CT 06/15/16 0000 Signed Impressions: Service Date/Time: Wednesday, June 15, 2016 13:16 - CONCLUSION: Significant free intraperitoneal air. Consolidative changes in both bases with small bilateral pleural effusions. Mikhail Abrams MD FACR Brain MRI 06/10/16 0000 Signed Impressions: Service Date/Time: Friday, June 10, 2016 20:14 - CONCLUSION: 1. Mild chronic-appearing ischemic changes in the periventricular white matter slightly progressed from 2014. No recent infarct, mass effect or midline shift. No hydrocephalus. Lakhwinder Pringle MD Liver Ultrasound 06/01/16 0000 Signed Impressions: Service Date/Time: Wednesday, June 01, 2016 15:38 - CONCLUSION: 1. Bilateral pleural effusions. 2. Thick-walled gallbladder with minimal pericholecystic fluid. If there is clinical concern for acute cholecystitis a hepatobiliary scan may be helpful to confirm cystic duct obstruction. 3. Minimal ascites. 4. Echogenic atrophic right kidney. 5. Mild nonspecific prominence of the main pancreatic duct. Enzo Price MD Head CT 05/29/16 0000 Signed Impressions: Service Date/Time: Sunday, May 29, 2016 03:03 - CONCLUSION: Age- appropriate atrophy, stable from prior in September 2015. No acute findings. Earnest Torre MD Lower Extremity Ultrasound 05/28/16 0000 Signed Impressions: Service Date/Time: Saturday, May 28, 2016 22:27 - CONCLUSION: Negative for deep venous thrombosis bilateral lower extremity. Earnest Torre MD Objective Remarks GENERAL: No apparent distress. HEENT: NC, AT. NECK: Decannulated, bandage in place. CARDIOVASCULAR: Normal rate and regular rhythm without murmurs, gallops, or rubs. RESPIRATORY: Breath sounds equal and clear to auscultation bilaterally. GASTROINTESTINAL: Abdomen soft, non-tender, non-distended. Normal active bowel sounds MUSCULOSKELETAL: Extremities without cyanosis, or edema. NEURO: Awake and alert. Moves all ext x4. Normal speech. Some confusion PSYCH: Flattened affect. Procedures Trach, since decannulated PEG Medications and IVs Current Medications Medications (Trade) Dose Ordered Sig/Crispin Route Start Time Stop Time Status Last Admin (NS Flush) 2 ml UNSCH PRN IV FLUSH 05/28/16 20:45 05/29/16 08:46 (NS Flush) 2 ml BID IV FLUSH 05/28/16 21:00 07/23/16 09:00 Ondansetron HCl 4 mg 4 mg Q6H PRN IV 05/28/16 20:45 (NS 1000 ml Inj) 1,000 ml @ 0 mls/hr Q0M PRN IV 05/28/16 20:53 07/21/16 13:33 Heparin Sodium (Porcine) 8000 units 8,000 units UNSCH PRN IVF 05/28/16 21:00 Sodium Chloride 1,000 ml @ 200 mls/hr Q5H PRN IV 05/28/16 20:53 07/23/16 09:25 (NS 1000 ml Inj) 1,000 ml @ 0 mls/hr Q0M PRN IV 05/28/16 20:53 06/18/16 08:18 (Mannitol Inj) 12.5 gm UNSCH PRN IV 05/28/16 21:00 (Albumin 25% Inj) 25 gm UNSCH PRN IV 05/28/16 21:00 06/14/16 11:12 (NS Flush) 5 ml UNSCH PRN IVF 05/28/16 21:00 (Heparin Inj) UNSCH PRN .XX 05/28/16 21:00 05/30/16 13:08 (Gentamicin (Dialysis) Inj) 20 mg UNSCH PRN IV 05/28/16 21:00 (Zofran Inj) 4 mg UNSCH PRN IV 05/28/16 21:00 (Tylenol) 650 mg UNSCH PRN PO 05/28/16 21:00 07/10/16 23:20 (Benadryl) 25 mg UNSCH PRN PO 05/28/16 21:00 (Nitrostat Sl) 0.4 mg UNSCH PRN SL 05/28/16 21:00 (Catapres) 0.1 mg UNSCH PRN PO 05/28/16 21:00 07/04/16 04:19 (Gelfoam 12 Mm/7 Mm Top) 1 foam UNSCH PRN TOP 05/28/16 21:00 07/23/16 09:25 (Ecotrin Ec) 81 mg DAILY PO 05/29/16 09:00 Hold 06/13/16 08:02 (Catapres) 0.1 mg TID PO 05/29/16 09:00 07/23/16 12:40 (Ativan Inj) 2 mg Q4H PRN IV PUSH 05/29/16 18:00 07/07/16 22:01 (Lopressor) 25 mg Q6HR PO/NG 05/31/16 12:00 07/23/16 12:00 (Phoslo) 667 mg TID NG 05/31/16 13:00 Hold 06/25/16 13:00 (D50w (Vial) Inj) 25 ml UNSCH PRN IV PUSH 06/01/16 08:45 (Glucagon Inj) 1 mg UNSCH PRN OTHER 06/01/16 08:45 (Neosporin Oint) 1 applic Q12HR TOPICAL 06/16/16 21:00 07/22/16 21:25 (Heparin Inj) 5,000 units Q12H SQ 06/20/16 02:00 07/23/16 12:38 (Epogen Inj) 10,000 units UNSCH PRN IV 06/23/16 11:00 07/23/16 09:25 (Prevacid Odt) 30 mg DAILY NG 06/25/16 09:00 07/22/16 08:59 (Colace Liq) 100 mg Q12HR PO 06/24/16 21:00 07/22/16 21:23 (SEROquel) 50 mg BID PO 06/26/16 21:00 07/22/16 21:23 (Haldol Inj) 5 mg Q8HR PRN IM 06/28/16 09:45 07/06/16 21:29 (Apresoline) 100 mg TID PO 06/30/16 13:00 07/23/16 12:39 (Nephrocaps) 1 cap DAILY PO 07/01/16 10:30 Hold A/P Problem List: (1) Encephalopathy, metabolic ICD Code: G93.41 Status: Acute (2) HCAP (healthcare-associated pneumonia) ICD Code: J18.9 Status: Acute (3) Hyperkalemia, diminished renal excretion ICD Code: E87.5 Status: Acute (4) Hypertension ICD Code: I10 Status: Chronic (5) Hepatitis C ICD Code: B19.20 Status: Acute (6) ESRD on hemodialysis ICD Code: N18.6 Status: Chronic (7) DM (diabetes mellitus) ICD Code: E11.9 Status: Chronic (8) Bleeding from gastrostomy tube site ICD Code: K94.21 Status: Acute Assessment and Plan Acute encephalopathy/ History of stroke without residual deficit (per friend's report)/ History of cocaine abuse/ Posttraumatic stress disorder EEG 06/12 revealed mild sleep. No seizure activity noted. MRI brain revealed chronic vascular changes; No acute findings. Neuro previously followed the patient-Dr. Wilks. Questionable anoxic injury. Becoming more alert. - Haldol when necessary for agitation. Patient is improving and is more cooperative. - Continue Seroquel 50 mg twice a day. Acute respiratory failure/ Healthcare associated pneumonia Intubated in ED 05/28/16 following cardiac arrest. S/p trach 06/[address] Bearden. - DuoNeb q6 hours. Albuterol q2 prn. - Pulmonology following. Decannulated 07/21. Breathing well on room air 07/23. Cardiac arrest, secondary to hyperkalemia/ Pulmonary edema/ Nonischemic cardiomyopathy secondary to HTN/ cocaine abuse/ Elevated Troponin Cardiac cath 12/09/2012 - EF 40%, normal coronaries. Echo 05/31: EF 25-30%, no RWMA. Mild MR/TR. MEGAN 36 mmHg. - Continue hydralazine 25 tid, Clonidine 0.1 tid, Lopressor 25mg q6h, ASA 81 mg daily. Blood pressure well controlled 07/23. - Per cardiology-no intervention planned. - continue dialysis for volume management. Hepatitis C/ Elevated LFTs/ Free air - likely secondary to EGD/tube feeding insufflation US liver: Bilateral pleural effusions. Thick-walled gallbladder with minimal pericholecystic fluid. Minimal ascites. Echogenic atrophic right kidney. Mild nonspecific prominence of the main pancreatic duct. - Prevacid for GI prophylaxis. - Colace for bowel regimen. ESRD/ Acute severe hyperkalemia/ Hypophosphatemia Emergent HD 05/28 due to potassium of 6.8 with bradycardia and cardiac arrest. - Continue Hemodialysis per nephrology. - Continue PhosLo 667 mg 3 times a day. - monitor electrolytes as needed. Protein calorie malnutrition S/P EGD with PEG placement 06/13/2016. - Consult GI to remove PEG as eating all of his meals. Healthcare associated pneumonia S/p Zosyn 2.25 g IV every 8 hours 05/29 - 06/12. Azithro x 10 days.05/28 nasal washing negative for Influenza. - continue to monitor off antibiotics. Stable. Normocytic Anemia requiring transfusion, previously from acute blood loss from PEG tube 3 unit prbc, 1 FFP, 1 plt. DDAVP. Coags within normal limits. Received 16 mg DDAVP and [address] Kevin/hematology followed. Von Willebrand antigen factor normal - Hgb has been stable. Continue to monitor. Prophylaxis: Heparin subcutaneous/ Prevacid 30 mg daily for stress ulcer prophylaxis. Discharge Planning Would benefit from SNF placement. Problem Qualifiers (1) Hypertension: Qualified Code: I10 - Essential hypertension (2) DM (diabetes mellitus): Qualified Code: E11.22 - Type 2 diabetes mellitus with diabetic chronic kidney disease, unspecified CKD stage, unspecified oil heaterman insulin use status Surendra Hassan DO Jul 23, 2016 14:28
[2016-07-23 16:00] VITALS: BP 138/62; PULSE 81; RESP 18; TEMP 97.8; O2SAT 97
[2016-07-23 20:00] VITALS: BP 93/52; PULSE 86; RESP 22; TEMP 97.2
--- NOTE | 2016-07-23 22:26 | HHI.GIFU ---
Subjective Remarks Patient comfortable in bed no complaints Objective Vitals I&O Vital Signs Date Time Temp Pulse Resp B/P Pulse Ox O2 Delivery O2 Flow Rate FiO2 07/23/16 16:00 97.8 81 18 138/62 97 07/23/16 12:00 98.0 87 18 148/72 98 07/23/16 08:00 98 Room Air 07/23/16 04:00 97.8 75 18 124/58 99 07/23/16 00:00 98.0 75 20 120/59 96 I/O 07/22/16 07/22/16 07/22/16 07/23/16 07/23/16 07/23/16 07:00 15:00 23:00 07:00 15:00 23:00 Intake Total 1162 ml 240 ml 453 ml 480 ml Output Total 3000 ml Balance 1162 ml 240 ml 453 ml -2520 ml Intake Oral 960 ml 240 ml 480 ml IV Total 2 ml Tube Feeding 200 ml 453 ml Hemodialysis 3000 ml # Voids 4 1 # Bowel Movements 2 1 Physical Exam HEENT: Normocephalic; atraumatic; no jaundice. CHEST: CTA. CARDIAC: RRR. ABDOMEN: Soft, nondistended, nontender; no hepatosplenomegaly; bowel sounds are present in all four quadrants. PEG tube site without any bleeding. no significant tenderness. EXTREMITIES: No edema SKIN: Normal; no rash; no jaundice. 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
[2016-07-24] VITALS: BP 112/57; PULSE 86; RESP 20; TEMP 97; O2SAT 98
[2016-07-24] MEDS: METOPROLOL TARTRATE 25 MG TAB PO/NG SCH ×5 (00:47→20:26)
[2016-07-24] MEDS: HEPARIN SODIUM - SQ 10,000 UNITS/ML VIAL SQ SCH ×2 (00:49→13:04)
[2016-07-24 04:00] VITALS: BP 123/54; PULSE 72; RESP 22; TEMP 97; O2SAT 98
[2016-07-24 08:00] VITALS: BP 150/70; PULSE 83; RESP 18; TEMP 97.9; O2SAT 97
[2016-07-24] MEDS: SODIUM CHLORIDE 0.9% FLUSH 5 ML FLUSH IV FLUSH SCH ×2 (09:00→20:25)
[2016-07-24] MEDS: DOCUSATE SODIUM 100 MG/10 ML UDC PO SCH ×2 (09:00→20:26)
[2016-07-24] MEDS: hydrALAZINE HCL 100 MG TAB PO SCH ×3 (09:00→17:23)
[2016-07-24] MEDS: NEOMYCIN/POLYMYXIN/BACITRACIN OINT 15 GM TUBE TOPICAL SCH ×2 (09:00→20:27)
[2016-07-24] MEDS: QUEtiapine FUMARATE 25 MG TAB PO SCH ×2 (09:00→20:25)
[2016-07-24] MEDS: cloNIDine HCL 0.1 MG TAB PO SCH ×3 (09:00→17:23)
[2016-07-24] MEDS: LANSOPRAZOLE SOLUTAB 30 MG TAB NG SCH (09:00)
[2016-07-24 12:00] VITALS: BP 133/63; PULSE 77; RESP 18; TEMP 97.4; O2SAT 98
--- NOTE | 2016-07-24 13:33 | HHI.PR ---
Subjective Remarks The patient's family was at the bedside. The patient had no acute complaints. He was breathing comfortably. He has been eating well. Discussed with nursing. Objective Vitals Vital Signs Date Time Temp Pulse Resp B/P Pulse Ox O2 Delivery O2 Flow Rate FiO2 07/24/16 08:00 97.9 83 18 150/70 97 07/24/16 04:00 97.0 72 22 123/54 98 07/24/16 00:00 97.0 86 20 112/57 98 07/23/16 20:50 Room Air 07/23/16 20:00 97.2 86 22 93/52 07/23/16 16:00 97.8 81 18 138/62 97 I/O 07/23/16 07/23/16 07/23/16 07/24/16 07/24/16 07/24/16 07:00 15:00 23:00 07:00 15:00 23:00 Intake Total 453 ml 480 ml Output Total 3000 ml 550 ml Balance 453 ml -2520 ml -550 ml Intake Oral 480 ml Tube Feeding 453 ml Output Urine Total 550 ml Hemodialysis 3000 ml # Voids 1 1 # Bowel Movements 1 Result Diagram: 07/21/16 0730 07/21/16 0730 Imaging Last Impressions Chest X-Ray 06/23/16 0600 Signed Impressions: Service Date/Time: June 03:02 - CONCLUSION: No significant change. Minh Aponte MD Abdomen X-Ray 06/16/16 0000 Signed Impressions: Service Date/Time: May 09:12 - CONCLUSION: Apparent appropriate placement of gastric tube placement. Amaris Rosenberg MD Abdomen/Pelvis CT 06/15/16 0000 Signed Impressions: Service Date/Time: Wednesday, June 15, 2016 13:16 - CONCLUSION: Significant free intraperitoneal air. Consolidative changes in both bases with small bilateral pleural effusions. Mikhail Abrams MD FACR Brain MRI 06/10/16 0000 Signed Impressions: Service Date/Time: Friday, June 10, 2016 20:14 - CONCLUSION: 1. Mild chronic-appearing ischemic changes in the periventricular white matter slightly progressed from 2013. No recent infarct, mass effect or midline shift. No hydrocephalus. Lakhwinder Pringle MD Liver Ultrasound 06/01/16 0000 Signed Impressions: Service Date/Time: Wednesday, June 01, 2016 15:38 - CONCLUSION: 1. Bilateral pleural effusions. 2. Thick-walled gallbladder with minimal pericholecystic fluid. If there is clinical concern for acute cholecystitis a hepatobiliary scan may be helpful to confirm cystic duct obstruction. 3. Minimal ascites. 4. Echogenic atrophic right kidney. 5. Mild nonspecific prominence of the main pancreatic duct. Enzo Price MD Head CT 05/29/16 0000 Signed Impressions: Service Date/Time: Sunday, May 29, 2016 03:03 - CONCLUSION: Age- appropriate atrophy, stable from prior in September 2015. No acute findings. Earnest Torre MD Lower Extremity Ultrasound 05/28/16 0000 Signed Impressions: Service Date/Time: Saturday, May 28, 2016 22:27 - CONCLUSION: Negative for deep venous thrombosis bilateral lower extremity. Earnest Torre MD Objective Remarks GENERAL: No apparent distress. HEENT: NC, AT. NECK: Decannulated, bandage in place. CARDIOVASCULAR: Normal rate and regular rhythm without murmurs, gallops, or rubs. RESPIRATORY: Breath sounds equal and clear to auscultation bilaterally. GASTROINTESTINAL: Abdomen soft, non-tender, non-distended. Normal active bowel sounds. Bandage over former PEG site. MUSCULOSKELETAL: Extremities without cyanosis, or edema. NEURO: Awake and alert. Moves all ext x4. Normal speech. Some confusion PSYCH: Flattened affect. Procedures Trach, since decannulated PEG Medications and IVs Current Medications Medications (Trade) Dose Ordered Sig/Crispin Route Start Time Stop Time Status Last Admin (NS Flush) 2 ml UNSCH PRN IV FLUSH 05/28/16 20:45 05/29/16 08:46 (NS Flush) 2 ml BID IV FLUSH 05/28/16 21:00 07/24/16 09:00 Ondansetron HCl 4 mg 4 mg Q6H PRN IV 05/28/16 20:45 (NS 1000 ml Inj) 1,000 ml @ 0 mls/hr Q0M PRN IV 05/28/16 20:53 07/21/16 13:33 Heparin Sodium (Porcine) 8000 units 8,000 units UNSCH PRN IVF 05/28/16 21:00 Sodium Chloride 1,000 ml @ 200 mls/hr Q5H PRN IV 05/28/16 20:53 07/23/16 09:25 (NS 1000 ml Inj) 1,000 ml @ 0 mls/hr Q0M PRN IV 05/28/16 20:53 06/18/16 08:18 (Mannitol Inj) 12.5 gm UNSCH PRN IV 05/28/16 21:00 (Albumin 25% Inj) 25 gm UNSCH PRN IV 05/28/16 21:00 06/14/16 11:12 (NS Flush) 5 ml UNSCH PRN IVF 05/28/16 21:00 (Heparin Inj) UNSCH PRN .XX 05/28/16 21:00 05/30/16 13:08 (Gentamicin (Dialysis) Inj) 20 mg UNSCH PRN IV 05/28/16 21:00 (Zofran Inj) 4 mg UNSCH PRN IV 05/28/16 21:00 (Tylenol) 650 mg UNSCH PRN PO 05/28/16 21:00 07/10/16 23:20 (Benadryl) 25 mg UNSCH PRN PO 05/28/16 21:00 (Nitrostat Sl) 0.4 mg UNSCH PRN SL 05/28/16 21:00 (Catapres) 0.1 mg UNSCH PRN PO 05/28/16 21:00 07/04/16 04:19 (Gelfoam 12 Mm/7 Mm Top) 1 foam UNSCH PRN TOP 05/28/16 21:00 07/23/16 09:25 (Ecotrin Ec) 81 mg DAILY PO 05/29/16 09:00 Hold 06/13/16 08:02 (Catapres) 0.1 mg TID PO 05/29/16 09:00 07/24/16 13:00 (Ativan Inj) 2 mg Q4H PRN IV PUSH 05/29/16 18:00 07/07/16 22:01 (Lopressor) 25 mg Q6HR PO/NG 05/31/16 12:00 07/24/16 12:00 (Phoslo) 667 mg TID NG 05/31/16 13:00 Hold 06/25/16 13:00 (D50w (Vial) Inj) 25 ml UNSCH PRN IV PUSH 06/01/16 08:45 (Glucagon Inj) 1 mg UNSCH PRN OTHER 06/01/16 08:45 (Neosporin Oint) 1 applic Q12HR TOPICAL 06/16/16 21:00 07/24/16 09:00 (Heparin Inj) 5,000 units Q12H SQ 06/20/16 02:00 07/24/16 13:04 (Epogen Inj) 10,000 units UNSCH PRN IV 06/23/16 11:00 07/23/16 09:25 (Prevacid Odt) 30 mg DAILY NG 06/25/16 09:00 07/24/16 09:00 (Colace Liq) 100 mg Q12HR PO 06/24/16 21:00 07/24/16 09:00 (SEROquel) 50 mg BID PO 06/26/16 21:00 07/24/16 09:00 (Haldol Inj) 5 mg Q8HR PRN IM 06/28/16 09:45 07/06/16 21:29 (Apresoline) 100 mg TID PO 06/30/16 13:00 07/24/16 13:00 (Nephrocaps) 1 cap DAILY PO 07/01/16 10:30 Hold A/P Problem List: (1) Encephalopathy, metabolic ICD Code: G93.41 Status: Acute (2) HCAP (healthcare-associated pneumonia) ICD Code: J18.9 Status: Acute (3) Hyperkalemia, diminished renal excretion ICD Code: E87.5 Status: Acute (4) Hypertension ICD Code: I10 Status: Chronic (5) Hepatitis C ICD Code: B19.20 Status: Acute (6) ESRD on hemodialysis ICD Code: N18.6 Status: Chronic (7) DM (diabetes mellitus) ICD Code: E11.9 Status: Chronic (8) Bleeding from gastrostomy tube site ICD Code: K94.21 Status: Acute Assessment and Plan Acute encephalopathy/ History of stroke without residual deficit (per friend's report)/ History of cocaine abuse/ Posttraumatic stress disorder EEG 06/12 revealed mild sleep. No seizure activity noted. MRI brain revealed chronic vascular changes; No acute findings. Neuro previously followed the patient-Dr. Wilks. Questionable anoxic injury. Becoming more alert. - Haldol when necessary for agitation. Patient is improving and is more cooperative. - Continue Seroquel 50 mg twice a day. Acute respiratory failure/ Healthcare associated pneumonia Intubated in ED 05/28/16 following cardiac arrest. S/p trach 06/[address] Bearden. - DuoNeb q6 hours. Albuterol q2 prn. - Pulmonology following. Decannulated 07/21. Breathing well on room air 07/24. Cardiac arrest, secondary to hyperkalemia/ Pulmonary edema/ Nonischemic cardiomyopathy secondary to HTN/ cocaine abuse/ Elevated Troponin Cardiac cath 12/09/2012 - EF 40%, normal coronaries. Echo 05/31: EF 25-30%, no RWMA. Mild MR/TR. MEGAN 36 mmHg. - Continue hydralazine 25 tid, Clonidine 0.1 tid, Lopressor 25mg q6h, ASA 81 mg daily. Blood pressure relatively well controlled 07/24. - Per cardiology-no intervention planned. - continue dialysis for volume management. Hepatitis C/ Elevated LFTs/ Free air - likely secondary to EGD/tube feeding insufflation US liver: Bilateral pleural effusions. Thick-walled gallbladder with minimal pericholecystic fluid. Minimal ascites. Echogenic atrophic right kidney. Mild nonspecific prominence of the main pancreatic duct. - Prevacid for GI prophylaxis. - Colace for bowel regimen. ESRD/ Acute severe hyperkalemia/ Hypophosphatemia Emergent HD 05/28 due to potassium of 6.8 with bradycardia and cardiac arrest. - Continue Hemodialysis per nephrology. - Continue PhosLo 667 mg 3 times a day. - monitor electrolytes as needed. Protein calorie malnutrition S/P EGD with PEG placement 06/13/2016. - Consult GI to remove PEG as eating all of his meals. PEG tube removed . - Follow up with gauger chief. Healthcare associated pneumonia S/p Zosyn 2.25 g IV every 8 hours 05/29 - 06/12. Azithro x 10 days.05/28 nasal washing negative for Influenza. - continue to monitor off antibiotics. Stable. Normocytic Anemia requiring transfusion, previously from acute blood loss from PEG tube 3 unit prbc, 1 FFP, 1 plt. DDAVP. Coags within normal limits. Received 16 mg DDAVP and [address] Kevin/hematology followed. Von Willebrand antigen factor normal - Hgb has been stable. Continue to monitor. Prophylaxis: Heparin subcutaneous/ Prevacid 30 mg daily for stress ulcer prophylaxis. Discharge Planning Would benefit from SNF placement. Appreciate case management assistance. Problem Qualifiers (1) Hypertension: Qualified Code: I10 - Essential hypertension (2) DM (diabetes mellitus): Qualified Code: E11.22 - Type 2 diabetes mellitus with diabetic chronic kidney disease, unspecified CKD stage, unspecified terminal clerk insulin use status Surendra Hassan DO Jul 24, 2016 13:33
[2016-07-24 16:00] VITALS: BP 135/64; PULSE 78; RESP 18; TEMP 97.6; O2SAT 99
--- NOTE | 2016-07-24 16:55 | HHI.NPPN ---
Subjective General Problems: Anemia Renal Failure: Chronic, End Stage Renal Disease Additional Remarks Patient is alert, seen during HD, no complain. Review of Systems General General Remarks unable to evaluate due to mental status Objective Data Data 07/23/16 07/24/16 19:00 07:00 Intake Total 480 ml Output Total 3000 ml 550 ml Balance -2520 ml -550 ml Intake Oral 480 ml Output Urine Total 550 ml Hemodialysis 3000 ml # Voids 1 1 # Bowel Movements 1 Vital Signs Date Time Temp Pulse Resp B/P Pulse Ox O2 Delivery O2 Flow Rate FiO2 07/24/16 12:00 97.4 77 18 133/63 98 07/24/16 08:00 99 Room Air 07/24/16 08:00 97.9 83 18 150/70 97 07/24/16 04:00 97.0 72 22 123/54 98 07/24/16 00:00 97.0 86 20 112/57 98 07/23/16 20:50 Room Air 07/23/16 20:00 97.2 86 22 93/52 -: 07/21/16 0730 07/21/16 0730 Tubes & Lines Comment trach, PEG Drip Comment Precedex Physical Exam General Appearance: No Acute Distress Eyes Eye Exam: Pupils Equal, Pupils Reactive Neck Neck Exam: Neck Supple Pulmonary Resp Exam: Breath Sounds Equal, Crackles, Decreased Bases, Diminished Breath Sounds Cardiology CV Exam: Regular, Normal Sinus Rhythm, Good Perfusion Gastrointestinal/Abdomen GI Exam: Soft, Non-Tender, Bowel Sounds Present, Non-Distended Extremeties Extremities Exam: Trace Edema Neurologic Neuro Exam: Alert Assessment/Plan Discussed Condition With: Patient Assessment Summary: Anemia of CKD, Hypertension, End Stage Renal Disease Electrolyte Assessment: Hypocalcemia Problem List: (1) ESRD on dialysis Plan: Continue dialysis T--Mon, on Epogen for anemia. HD to continue TTS. HD UF 3 L,yesterday FU Dr. Peck (2) Anemia Plan: Last hemoglobin stable (3) Hypertension Plan: BP stable. He is on metoprolol, hydralazine, clonidine with hold parameters (4) DM (diabetes mellitus) Plan: continue insulin coverage goal to maintain blood glucose between 140 and 180 off D10 , tube feeding was resumed (5) NSTEMI (non-ST elevated myocardial infarction) Plan: Troponin I elevated post cardiac arrest, chest compressions. he had catheterization in January 2016, normal coronary arteries (6) Elevated LFTs Plan: improved. (7) Cocaine abuse Plan: Cessation has been recommended. (8) Encephalopathy Plan: s/p trach placement. Encephalopathy resolved Problem Qualifiers (1) Anemia: Qualified Code: D64.9 - Anemia, unspecified type (2) Hypertension: Qualified Code: I10 - Essential hypertension (3) DM (diabetes mellitus): Qualified Code: E11.22 - Type 2 diabetes mellitus with diabetic chronic kidney disease, unspecified CKD stage, unspecified long term care phlebotomist insulin use status Willy Arellano MD Jul 24, 2016 16:55
[2016-07-24 20:00] VITALS: BP 113/53; PULSE 72; RESP 16; TEMP 97.4; O2SAT 99
[2016-07-25] VITALS (8 sets, daily range): BP systolic 104–147; BP diastolic 33–66; PULSE 69–81; RESP 14–20; TEMP 97–97.4; O2SAT 94–99
[2016-07-25] MEDS: HEPARIN SODIUM - SQ 10,000 UNITS/ML VIAL SQ SCH ×2 (01:04→13:09)
[2016-07-25] MEDS: METOPROLOL TARTRATE 25 MG TAB PO/NG SCH ×4 (05:42→23:58)
[2016-07-25] MEDS: DOCUSATE SODIUM 100 MG/10 ML UDC PO SCH ×2 (08:16→20:18)
[2016-07-25] MEDS: QUEtiapine FUMARATE 25 MG TAB PO SCH ×2 (08:16→20:18)
[2016-07-25] MEDS: LANSOPRAZOLE SOLUTAB 30 MG TAB NG SCH (08:16)
[2016-07-25] MEDS: SODIUM CHLORIDE 0.9% FLUSH 5 ML FLUSH IV FLUSH SCH ×2 (08:16→20:22)
[2016-07-25] MEDS: cloNIDine HCL 0.1 MG TAB PO SCH ×3 (08:16→18:00)
[2016-07-25] MEDS: hydrALAZINE HCL 100 MG TAB PO SCH ×3 (08:16→18:00)
[2016-07-25] MEDS: NEOMYCIN/POLYMYXIN/BACITRACIN OINT 15 GM TUBE TOPICAL SCH ×2 (08:20→20:23)
--- NOTE | 2016-07-25 12:30 | HHI.PR ---
Subjective Remarks The patient was in a wheelchair by the windows. Family was nearby. The patient had no acute complaints. He was wondering where he would be discharged to. Discussed with case management. Objective Vitals Vital Signs Date Time Temp Pulse Resp B/P Pulse Ox O2 Delivery O2 Flow Rate FiO2 07/25/16 12:00 97.1 69 16 130/61 99 07/25/16 11:00 Room Air 07/25/16 08:00 Room Air 07/25/16 08:00 97.4 74 20 143/65 98 07/25/16 04:00 97.0 77 14 104/64 07/25/16 04:00 97.3 77 14 104/33 94 07/25/16 03:38 75 07/25/16 00:44 97.3 75 18 143/66 98 07/24/16 20:30 Room Air 07/24/16 20:00 97.4 72 16 113/53 99 07/24/16 16:00 97.6 78 18 135/64 99 I/O 07/24/16 07/24/16 07/24/16 07/25/16 07/25/16 07/25/16 07:00 15:00 23:00 07:00 15:00 23:00 Intake Total 970 ml Output Total 550 ml 250 ml Balance -550 ml 970 ml -250 ml Intake Oral 970 ml Output Urine Total 550 ml 250 ml # Voids 3 2 # Bowel Movements 2 1 Result Diagram: 07/21/16 0730 07/21/16 0730 Imaging Last Impressions Chest X-Ray 06/23/16 0600 Signed Impressions: Service Date/Time: June 03:02 - CONCLUSION: No significant change. Minh Aponte MD Abdomen X-Ray 06/16/16 0000 Signed Impressions: Service Date/Time: May 09:12 - CONCLUSION: Apparent appropriate placement of gastric tube placement. Amaris Rosenberg MD Abdomen/Pelvis CT 06/15/16 0000 Signed Impressions: Service Date/Time: Wednesday, June 15, 2016 13:16 - CONCLUSION: Significant free intraperitoneal air. Consolidative changes in both bases with small bilateral pleural effusions. Mikhail Abrams MD FACR Brain MRI 06/10/16 0000 Signed Impressions: Service Date/Time: Friday, June 10, 2016 20:14 - CONCLUSION: 1. Mild chronic-appearing ischemic changes in the periventricular white matter slightly progressed from 2014. No recent infarct, mass effect or midline shift. No hydrocephalus. Lakhwinder Pringle MD Liver Ultrasound 06/01/16 0000 Signed Impressions: Service Date/Time: Wednesday, June 01, 2016 15:38 - CONCLUSION: 1. Bilateral pleural effusions. 2. Thick-walled gallbladder with minimal pericholecystic fluid. If there is clinical concern for acute cholecystitis a hepatobiliary scan may be helpful to confirm cystic duct obstruction. 3. Minimal ascites. 4. Echogenic atrophic right kidney. 5. Mild nonspecific prominence of the main pancreatic duct. Enzo Price MD Head CT 05/29/16 0000 Signed Impressions: Service Date/Time: Sunday, May 29, 2016 03:03 - CONCLUSION: Age- appropriate atrophy, stable from prior in September 2015. No acute findings. Earnest Torre MD Lower Extremity Ultrasound 05/28/16 0000 Signed Impressions: Service Date/Time: Saturday, May 28, 2016 22:27 - CONCLUSION: Negative for deep venous thrombosis bilateral lower extremity. Earnest Torre MD Objective Remarks GENERAL: No apparent distress. HEENT: NC, AT. NECK: Decannulated, bandage in place. CARDIOVASCULAR: Normal rate and regular rhythm without murmurs, gallops, or rubs. RESPIRATORY: Breath sounds equal and clear to auscultation bilaterally. GASTROINTESTINAL: Abdomen soft, non-tender, non-distended. Normal active bowel sounds. Bandage over former PEG site. MUSCULOSKELETAL: Extremities without cyanosis, or edema. NEURO: Awake and alert. Moves all ext x4. Normal speech. Some confusion PSYCH: Flattened affect. Procedures Trach, since decannulated PEG Medications and IVs Current Medications Medications (Trade) Dose Ordered Sig/Crispin Route Start Time Stop Time Status Last Admin (NS Flush) 2 ml UNSCH PRN IV FLUSH 05/28/16 20:45 05/29/16 08:46 (NS Flush) 2 ml BID IV FLUSH 05/28/16 21:00 07/24/16 09:00 Ondansetron HCl 4 mg 4 mg Q6H PRN IV 05/28/16 20:45 (NS 1000 ml Inj) 1,000 ml @ 0 mls/hr Q0M PRN IV 05/28/16 20:53 07/21/16 13:33 Heparin Sodium (Porcine) 8000 units 8,000 units UNSCH PRN IVF 05/28/16 21:00 Sodium Chloride 1,000 ml @ 200 mls/hr Q5H PRN IV 05/28/16 20:53 07/23/16 09:25 (NS 1000 ml Inj) 1,000 ml @ 0 mls/hr Q0M PRN IV 05/28/16 20:53 06/18/16 08:18 (Mannitol Inj) 12.5 gm UNSCH PRN IV 05/28/16 21:00 (Albumin 25% Inj) 25 gm UNSCH PRN IV 05/28/16 21:00 06/14/16 11:12 (NS Flush) 5 ml UNSCH PRN IVF 05/28/16 21:00 (Heparin Inj) UNSCH PRN .XX 05/28/16 21:00 05/30/16 13:08 (Gentamicin (Dialysis) Inj) 20 mg UNSCH PRN IV 05/28/16 21:00 (Zofran Inj) 4 mg UNSCH PRN IV 05/28/16 21:00 (Tylenol) 650 mg UNSCH PRN PO 05/28/16 21:00 07/10/16 23:20 (Benadryl) 25 mg UNSCH PRN PO 05/28/16 21:00 (Nitrostat Sl) 0.4 mg UNSCH PRN SL 05/28/16 21:00 (Catapres) 0.1 mg UNSCH PRN PO 05/28/16 21:00 07/04/16 04:19 (Gelfoam 12 Mm/7 Mm Top) 1 foam UNSCH PRN TOP 05/28/16 21:00 07/23/16 09:25 (Ecotrin Ec) 81 mg DAILY PO 05/29/16 09:00 Hold 06/13/16 08:02 (Catapres) 0.1 mg TID PO 05/29/16 09:00 07/25/16 08:16 (Ativan Inj) 2 mg Q4H PRN IV PUSH 05/29/16 18:00 07/07/16 22:01 (Lopressor) 25 mg Q6HR PO/NG 05/31/16 12:00 07/25/16 05:42 (Phoslo) 667 mg TID NG 05/31/16 13:00 Hold 06/25/16 13:00 (D50w (Vial) Inj) 25 ml UNSCH PRN IV PUSH 06/01/16 08:45 (Glucagon Inj) 1 mg UNSCH PRN OTHER 06/01/16 08:45 (Neosporin Oint) 1 applic Q12HR TOPICAL 06/16/16 21:00 07/25/16 08:20 (Heparin Inj) 5,000 units Q12H SQ 06/20/16 02:00 07/24/16 13:04 (Epogen Inj) 10,000 units UNSCH PRN IV 06/23/16 11:00 07/23/16 09:25 (Prevacid Odt) 30 mg DAILY NG 06/25/16 09:00 07/25/16 08:16 (Colace Liq) 100 mg Q12HR PO 06/24/16 21:00 07/25/16 08:16 (SEROquel) 50 mg BID PO 06/26/16 21:00 07/25/16 08:16 (Haldol Inj) 5 mg Q8HR PRN IM 06/28/16 09:45 07/06/16 21:29 (Apresoline) 100 mg TID PO 06/30/16 13:00 07/25/16 08:16 (Nephrocaps) 1 cap DAILY PO 07/01/16 10:30 Hold A/P Problem List: (1) Encephalopathy, metabolic ICD Code: G93.41 Status: Acute (2) HCAP (healthcare-associated pneumonia) ICD Code: J18.9 Status: Acute (3) Hyperkalemia, diminished renal excretion ICD Code: E87.5 Status: Acute (4) Hypertension ICD Code: I10 Status: Chronic (5) Hepatitis C ICD Code: B19.20 Status: Acute (6) ESRD on hemodialysis ICD Code: N18.6 Status: Chronic (7) DM (diabetes mellitus) ICD Code: E11.9 Status: Chronic (8) Bleeding from gastrostomy tube site ICD Code: K94.21 Status: Acute Assessment and Plan Acute encephalopathy/ History of stroke without residual deficit (per friend's report)/ History of cocaine abuse/ Posttraumatic stress disorder EEG 06/12 revealed mild sleep. No seizure activity noted. MRI brain revealed chronic vascular changes; No acute findings. Neuro previously followed the patient-Dr. Wilks. Questionable anoxic injury. Becoming more alert. - Haldol when necessary for agitation. Patient is improving and is more cooperative. - Continue Seroquel 50 mg twice a day. Acute respiratory failure/ Healthcare associated pneumonia Intubated in ED 05/28/16 following cardiac arrest. S/p trach 06/[address] Bearden. - DuoNeb q6 hours. Albuterol q2 prn. - Pulmonology following. Decannulated 07/21. Breathing well on room air 07/25. Cardiac arrest, secondary to hyperkalemia/ Pulmonary edema/ Nonischemic cardiomyopathy secondary to HTN/ cocaine abuse/ Elevated Troponin Cardiac cath 12/09/2012 - EF 40%, normal coronaries. Echo 05/31: EF 25-30%, no RWMA. Mild MR/TR. MEGAN 36 mmHg. - Continue hydralazine 25 tid, Clonidine 0.1 tid, Lopressor 25mg q6h, ASA 81 mg daily. Blood pressure well controlled 07/25. - Per cardiology-no intervention planned. - continue dialysis for volume management. Hepatitis C/ Elevated LFTs/ Free air - likely secondary to EGD/tube feeding insufflation US liver: Bilateral pleural effusions. Thick-walled gallbladder with minimal pericholecystic fluid. Minimal ascites. Echogenic atrophic right kidney. Mild nonspecific prominence of the main pancreatic duct. - Prevacid for GI prophylaxis. - Colace for bowel regimen. ESRD/ Acute severe hyperkalemia/ Hypophosphatemia Emergent HD 05/28 due to potassium of 6.8 with bradycardia and cardiac arrest. - Continue Hemodialysis per nephrology. - Continue PhosLo 667 mg 3 times a day. - monitor electrolytes as needed. Protein calorie malnutrition S/P EGD with PEG placement 06/13/2016. PEG tube removed 07/23/16. Tolerating diet. - Follow up with research lab assistant as needed. Healthcare associated pneumonia S/p Zosyn 2.25 g IV every 8 hours 05/29 - 06/12. Azithro x 10 days.05/28 nasal washing negative for Influenza. - continue to monitor off antibiotics. Stable. Normocytic Anemia requiring transfusion, previously from acute blood loss from PEG tube 3 unit prbc, 1 FFP, 1 plt. DDAVP. Coags within normal limits. Received 16 mg DDAVP and [address] Kevin/hematology followed. Von Willebrand antigen factor normal - Hgb has been stable. Continue to monitor. Prophylaxis: Heparin subcutaneous/ Prevacid 30 mg daily for stress ulcer prophylaxis. Discharge Planning Would benefit from SNF placement. Appreciate case management assistance. [id number] signed. 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
--- NOTE | 2016-07-25 16:49 | HHI.PR ---
Subjective Remarks 60 YOAA male with RF, trach, ESRDs/p cardiac arrest On RA no sob Afebrile, no new complaint Objective Vital Signs Vital Signs Date Time Temp Pulse Resp B/P Pulse Ox O2 Delivery O2 Flow Rate FiO2 07/25/16 13:10 81 07/25/16 12:00 97.1 69 16 130/61 99 07/25/16 11:00 Room Air 07/25/16 08:00 Room Air 07/25/16 08:00 74 07/25/16 08:00 97.4 74 20 143/65 98 07/25/16 04:00 97.0 77 14 104/64 07/25/16 04:00 97.3 77 14 104/33 94 07/25/16 03:38 75 07/25/16 00:44 97.3 75 18 143/66 98 07/24/16 20:30 Room Air 07/24/16 20:00 97.4 72 16 113/53 99 I/O 07/24/16 07/24/16 07/24/16 07/25/16 07/25/16 07/25/16 07:00 15:00 23:00 07:00 15:00 23:00 Intake Total 970 ml 237 ml Output Total 550 ml 250 ml Balance -550 ml 970 ml -250 ml 237 ml Intake Oral 970 ml 237 ml Output Urine Total 550 ml 250 ml # Voids 3 2 # Bowel Movements 2 1 0 Result Diagram: 07/21/16 0730 07/21/16 0730 Objective Remarks GENERAL: WBWN AA male, no distress SKIN: Warm and dry. HEAD: Normocephalic. EYES: No scleral icterus. No injection or drainage. NECK: Supple, trachea midline. No JVD or lymphadenopathy. CARDIOVASCULAR: Regular rate and rhythm without murmurs, gallops, or rubs. RESPIRATORY: Breath sounds equal bilaterally. No accessory muscle use. GASTROINTESTINAL: Abdomen soft, non-tender, nondistended. PEG Tube in place MUSCULOSKELETAL: No cyanosis, or edema. BACK: Nontender without obvious deformity. No CVA tenderness. A/P Assessment and Plan RF, s/p Trach Removal 07/21 ESRD Non-ischemic CMP H/O CVA Coccaine use DM PLAN: Aerosol nebs cont TF Seraquel 50 mg bid Stable on Trach collar SQ Heparin. Stable on RA Master Krause MD 6, 2017 16:49
--- NOTE | 2016-07-25 17:50 | HHI.NPPN ---
Subjective General Problems: Anemia Renal Failure: Chronic, End Stage Renal Disease Additional Remarks Patient is alert, now with closed tracheostomy, no SOB. Review of Systems General General Remarks unable to evaluate due to mental status Objective Data Data 07/24/16 07/25/16 19:00 07:00 Intake Total 970 ml Output Total 250 ml Balance 970 ml -250 ml Intake Oral 970 ml Output Urine Total 250 ml # Voids 3 2 # Bowel Movements 2 1 Vital Signs Date Time Temp Pulse Resp B/P Pulse Ox O2 Delivery O2 Flow Rate FiO2 07/25/16 17:43 75 07/25/16 17:26 Room Air 07/25/16 13:10 81 07/25/16 12:00 97.1 69 16 130/61 99 07/25/16 11:00 Room Air 07/25/16 08:00 Room Air 07/25/16 08:00 74 07/25/16 08:00 97.4 74 20 143/65 98 07/25/16 04:00 97.0 77 14 104/64 07/25/16 04:00 97.3 77 14 104/33 94 07/25/16 03:38 75 07/25/16 00:44 97.3 75 18 143/66 98 07/24/16 20:30 Room Air 07/24/16 20:00 97.4 72 16 113/53 99 -: 07/21/16 0730 07/21/16 0730 Tubes & Lines Comment trach, PEG Drip Comment Precedex Physical Exam General Appearance: No Acute Distress Eyes Eye Exam: Pupils Equal, Pupils Reactive Neck Neck Exam: Neck Supple Pulmonary Resp Exam: Breath Sounds Equal, Crackles, Decreased Bases, Diminished Breath Sounds Cardiology CV Exam: Regular, Normal Sinus Rhythm, Good Perfusion Gastrointestinal/Abdomen GI Exam: Soft, Non-Tender, Bowel Sounds Present, Non-Distended Extremeties Extremities Exam: Trace Edema Neurologic Neuro Exam: Alert Assessment/Plan Discussed Condition With: Patient Assessment Summary: Anemia of CKD, Hypertension, End Stage Renal Disease Electrolyte Assessment: Hypocalcemia Problem List: (1) ESRD on dialysis Plan: Continue dialysis T-Th-Sat, on Epogen for anemia. HD to continue TTS. Doing well wit closure of Tracheostomy. Discharge planning notes seen. HD will be in AM. (2) Anemia Plan: Last hemoglobin stable (3) Hypertension Plan: BP stable. He is on metoprolol, hydralazine, clonidine with hold parameters (4) DM (diabetes mellitus) Plan: continue insulin coverage goal to maintain blood glucose between 140 and 180 off D10 , tube feeding was resumed (5) NSTEMI (non-ST elevated myocardial infarction) Plan: Troponin I elevated post cardiac arrest, chest compressions. he had catheterization in January 2016, normal coronary arteries (6) Elevated LFTs Plan: improved. (7) Cocaine abuse Plan: Cessation has been recommended. (8) Encephalopathy Plan: s/p trach placement. 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
[2016-07-25] MEDS ORDERED: OLANZapine ODT 5 MG TAB PO PRN (18:30)
[2016-07-26] VITALS (7 sets, daily range): BP systolic 133–166; BP diastolic 61–73; PULSE 71–89; RESP 16–20; TEMP 97.2–98.1; O2SAT 96–100
[2016-07-26] MEDS: HEPARIN SODIUM - SQ 10,000 UNITS/ML VIAL SQ SCH ×2 (02:00→13:47)
[2016-07-26] MEDS: METOPROLOL TARTRATE 25 MG TAB PO/NG SCH ×2 (06:00→13:43)
[2016-07-26] MEDS: LANSOPRAZOLE SOLUTAB 30 MG TAB NG SCH (08:55)
[2016-07-26] MEDS: hydrALAZINE HCL 100 MG TAB PO SCH ×3 (08:55→21:04)
[2016-07-26] MEDS: DOCUSATE SODIUM 100 MG/10 ML UDC PO SCH ×2 (08:55→21:04)
[2016-07-26] MEDS: QUEtiapine FUMARATE 25 MG TAB PO SCH ×2 (08:55→21:00)
[2016-07-26] MEDS: cloNIDine HCL 0.1 MG TAB PO SCH ×3 (08:55→21:04)
[2016-07-26] MEDS: NEOMYCIN/POLYMYXIN/BACITRACIN OINT 15 GM TUBE TOPICAL SCH ×2 (08:59→21:00)
[2016-07-26] MEDS: SODIUM CHLORIDE 0.9% FLUSH 5 ML FLUSH IV FLUSH SCH ×2 (09:00→21:00)
--- NOTE | 2016-07-26 09:43 | HHI.PR ---
Subjective Remarks in the bed, appears in nad. Has nonproductive cough, no much sob. Denies chest pain or pal[pitations. Family at bedside. No n/v/d/c. Objective Vitals Vital Signs Date Time Temp Pulse Resp B/P Pulse Ox O2 Delivery O2 Flow Rate FiO2 07/26/16 08:00 97.9 80 18 166/73 98 07/26/16 04:00 97.4 79 16 134/61 98 07/26/16 00:00 97.2 74 16 141/66 100 07/25/16 20:00 Room Air 07/25/16 20:00 97.3 76 16 147/66 97 07/25/16 17:43 75 07/25/16 17:26 Room Air 07/25/16 13:10 81 07/25/16 12:00 97.1 69 16 130/61 99 07/25/16 11:00 Room Air I/O 07/25/16 07/25/16 07/25/16 07/26/16 07/26/16 07/26/16 07:00 15:00 23:00 07:00 15:00 23:00 Intake Total 237 ml 0 ml Output Total 250 ml Balance -250 ml 237 ml 0 ml Intake Oral 237 ml IV Total 0 ml Output Urine Total 250 ml # Voids 2 1 # Bowel Movements 1 0 0 Imaging Last Impressions Chest X-Ray 06/23/16 0600 Signed Impressions: Service Date/Time: June 03:02 - CONCLUSION: No significant change. Minh Aponte MD Abdomen X-Ray 06/16/16 0000 Signed Impressions: Service Date/Time: May 09:12 - CONCLUSION: Apparent appropriate placement of gastric tube placement. Amaris Rosenberg MD Abdomen/Pelvis CT 06/15/16 0000 Signed Impressions: Service Date/Time: Wednesday, June 15, 2016 13:16 - CONCLUSION: Significant free intraperitoneal air. Consolidative changes in both bases with small bilateral pleural effusions. Mikhail Abrams MD FACR Brain MRI 06/10/16 0000 Signed Impressions: Service Date/Time: Friday, June 10, 2016 20:14 - CONCLUSION: 1. Mild chronic-appearing ischemic changes in the periventricular white matter slightly progressed from 2014. No recent infarct, mass effect or midline shift. No hydrocephalus. Lakhwinder Pringle MD Liver Ultrasound 06/01/16 0000 Signed Impressions: Service Date/Time: Wednesday, June 01, 2016 15:38 - CONCLUSION: 1. Bilateral pleural effusions. 2. Thick-walled gallbladder with minimal pericholecystic fluid. If there is clinical concern for acute cholecystitis a hepatobiliary scan may be helpful to confirm cystic duct obstruction. 3. Minimal ascites. 4. Echogenic atrophic right kidney. 5. Mild nonspecific prominence of the main pancreatic duct. Enzo Price MD Head CT 05/29/16 0000 Signed Impressions: Service Date/Time: Sunday, May 29, 2016 03:03 - CONCLUSION: Age- appropriate atrophy, stable from prior in September 2015. No acute findings. Earnest Torre MD Lower Extremity Ultrasound 05/28/16 0000 Signed Impressions: Service Date/Time: Saturday, May 28, 2016 22:27 - CONCLUSION: Negative for deep venous thrombosis bilateral lower extremity. Earnest Torre MD Objective Remarks GENERAL: 60 yo male. appears in no apparent distress. HEENT: NC, AT. NECK: Decannulated, bandage in place. CARDIOVASCULAR: Normal rate and regular rhythm without murmurs, gallops, or rubs. RESPIRATORY: Breath sounds equal and clear to auscultation bilaterally. GASTROINTESTINAL: Abdomen soft, non-tender, non-distended. Normal active bowel sounds. Bandage over former PEG site. MUSCULOSKELETAL: Extremities without cyanosis, or edema. NEURO: Awake and alert. Moves all ext x4. Normal speech. Some confusion PSYCH: Flattened affect. Procedures Trach, since decannulated PEG A/P Problem List: (1) Encephalopathy, metabolic ICD Code: G93.41 Status: Acute (2) HCAP (healthcare-associated pneumonia) ICD Code: J18.9 Status: Acute (3) Hyperkalemia, diminished renal excretion ICD Code: E87.5 Status: Acute (4) Hypertension ICD Code: I10 Status: Chronic (5) Hepatitis C ICD Code: B19.20 Status: Acute (6) ESRD on hemodialysis ICD Code: N18.6 Status: Chronic (7) DM (diabetes mellitus) ICD Code: E11.9 Status: Chronic (8) Bleeding from gastrostomy tube site ICD Code: K94.21 Status: Acute Assessment and Plan Acute encephalopathy/ History of stroke without residual deficit (per friend's report)/ History of cocaine abuse/ Posttraumatic stress disorder EEG 06/12 revealed mild sleep. No seizure activity noted. MRI brain revealed chronic vascular changes; No acute findings. Neuro previously followed the patient-Dr. Wilks. Questionable anoxic injury. Becoming more alert. Haldol when necessary for agitation. Patient is improving and is more cooperative. Continue Seroquel 50 mg twice a day. Acute respiratory failure/ Healthcare associated pneumonia Intubated in ED 05/28/16 following cardiac arrest. S/p trach 06/[address] Bearden. DuoNeb q6 hours. Albuterol q2 prn. Pulmonology following. Decannulated 07/21. Breathing well on room air 07/25. Cardiac arrest, secondary to hyperkalemia/ Pulmonary edema/ Nonischemic cardiomyopathy secondary to HTN/ cocaine abuse/ Elevated Troponin Cardiac cath 12/09/2012 - EF 40%, normal coronaries. Echo 05/31: EF 25-30%, no RWMA. Mild MR/TR. MEGAN 36 mmHg. Continue hydralazine 25 tid, Clonidine 0.1 tid, Lopressor 25mg q6h, ASA 81 mg daily. Blood pressure well controlled 07/25. Per cardiology-no intervention planned. Continue dialysis for volume management. Hepatitis C/ Elevated LFTs/ Free air - likely secondary to EGD/tube feeding insufflation US liver: Bilateral pleural effusions. Thick-walled gallbladder with minimal pericholecystic fluid. Minimal ascites. Echogenic atrophic right kidney. Mild nonspecific prominence of the main pancreatic duct. Prevacid for GI prophylaxis. Colace for bowel regimen. ESRD/ Acute severe hyperkalemia/ Hypophosphatemia Emergent HD 05/28 due to potassium of 6.8 with bradycardia and cardiac arrest. Continue Hemodialysis per nephrology. Continue PhosLo 667 mg 3 times a day. Monitor electrolytes as needed. Protein calorie malnutrition S/P EGD with PEG placement 06/13/2016. PEG tube removed 07/23/16. Tolerating diet. Follow up with auto garage attendant as needed. Healthcare associated pneumonia S/p Zosyn 2.25 g IV every 8 hours 05/29 - 06/12. Azithro x 10 days.05/28 nasal washing negative for Influenza. Continue to monitor off antibiotics. Stable. Normocytic Anemia requiring transfusion, previously from acute blood loss from PEG tube 3 unit prbc, 1 FFP, 1 plt. DDAVP. Coags within normal limits. Received 16 mg DDAVP and [address] Kevin/hematology followed. Von Willebrand antigen factor normal Hgb has been stable. Continue to monitor. Prophylaxis: Heparin subcutaneous/ Prevacid 30 mg daily for stress ulcer prophylaxis. Discharge Planning Would benefit from SNF placement. Case management consulted for assistance. [id number] is signed. 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
--- NOTE | 2016-07-26 12:02 | EKG ---
Date Performed: 07/25/2016 Time Performed: 19:30:28 PTAGE: 60 years EKG: Sinus rhythm LEFT VENTRICULAR HYPERTROPHY AND ST-T CHANGES ABNORMAL ECG PREVIOUS TRACING : 05/29/2016 02.19 Compared to previous tracing, anterolateral ST/T changes cooper ve improved. DOCTOR: Victor Manuel [place] Interpretating Date/Time 07/26/2016 12:00:36
--- NOTE | 2016-07-26 17:07 | HHI.NPPN ---
Subjective General Problems: Anemia Renal Failure: Chronic, End Stage Renal Disease Additional Remarks Patient is alert, no complain, feeling better, no SOB. Review of Systems General General Remarks unable to evaluate due to mental status Objective Data Data 07/25/16 07/26/16 19:00 07:00 Intake Total 237 ml Balance 237 ml Intake Oral 237 ml IV Total 0 ml # Voids 1 # Bowel Movements 0 0 Vital Signs Date Time Temp Pulse Resp B/P Pulse Ox O2 Delivery O2 Flow Rate FiO2 07/26/16 15:00 Room Air 07/26/16 12:00 97.6 89 20 162/70 97 07/26/16 11:03 Room Air 5.00 21 07/26/16 08:00 Room Air 5.00 21 07/26/16 08:00 97.9 80 18 166/73 98 07/26/16 04:00 97.4 79 16 134/61 98 07/26/16 00:00 97.2 74 16 141/66 100 07/25/16 20:00 Room Air 07/25/16 20:00 97.3 76 16 147/66 97 07/25/16 17:43 75 07/25/16 17:26 Room Air Tubes & Lines Comment trach, PEG Drip Comment Precedex Physical Exam General Appearance: No Acute Distress Eyes Eye Exam: Pupils Equal, Pupils Reactive Neck Neck Exam: Neck Supple Pulmonary Resp Exam: Breath Sounds Equal, Crackles, Decreased Bases, Diminished Breath Sounds Cardiology CV Exam: Regular, Normal Sinus Rhythm, Good Perfusion Gastrointestinal/Abdomen GI Exam: Soft, Non-Tender, Bowel Sounds Present, Non-Distended Extremeties Extremities Exam: Trace Edema Neurologic Neuro Exam: Alert Assessment/Plan Discussed Condition With: Patient Assessment Summary: Anemia of CKD, Hypertension, End Stage Renal Disease Electrolyte Assessment: Hypocalcemia Problem List: (1) ESRD on dialysis Plan: Continue dialysis T-Th-Sat, on Epogen for anemia. HD to continue TTS. Doing well wit closure of Tracheostomy. HD today, Patient will be going to Rehab, To continue HD TTS as out patient. (2) Anemia Plan: Last hemoglobin stable (3) Hypertension Plan: BP stable. He is on metoprolol, hydralazine, clonidine with hold parameters (4) DM (diabetes mellitus) Plan: continue insulin coverage goal to maintain blood glucose between 140 and 180 off D10 , tube feeding was resumed (5) NSTEMI (non-ST elevated myocardial infarction) Plan: Troponin I elevated post cardiac arrest, chest compressions. he had catheterization in January 2016, normal coronary arteries (6) Elevated LFTs Plan: improved. (7) Cocaine abuse Plan: Cessation has been recommended. (8) Encephalopathy Plan: s/p trach placement. 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
--- NOTE | 2016-07-26 18:32 | HHI.PR ---
Subjective Remarks 60 YOAA male with RF, trach, ESRDs/p cardiac arrest On RA no sob Afebrile, Objective Vital Signs Vital Signs Date Time Temp Pulse Resp B/P Pulse Ox O2 Delivery O2 Flow Rate FiO2 07/26/16 16:00 98.1 71 18 133/63 97 07/26/16 15:00 Room Air 07/26/16 12:00 97.6 89 20 162/70 97 07/26/16 11:03 Room Air 5.00 21 07/26/16 08:00 Room Air 5.00 21 07/26/16 08:00 97.9 80 18 166/73 98 07/26/16 04:00 97.4 79 16 134/61 98 07/26/16 00:00 97.2 74 16 141/66 100 07/25/16 20:00 Room Air 07/25/16 20:00 97.3 76 16 147/66 97 I/O 07/25/16 07/25/16 07/25/16 07/26/16 07/26/16 07/26/16 07:00 15:00 23:00 07:00 15:00 23:00 Intake Total 237 ml 0 ml 0 ml Output Total 250 ml Balance -250 ml 237 ml 0 ml 0 ml Intake Oral 237 ml IV Total 0 ml 0 ml Output Urine Total 250 ml # Voids 2 1 # Bowel Movements 1 0 0 Objective Remarks GENERAL: WBWN AA male, no distress SKIN: Warm and dry. HEAD: Normocephalic. EYES: No scleral icterus. No injection or drainage. NECK: Supple, trachea midline. No JVD or lymphadenopathy. CARDIOVASCULAR: Regular rate and rhythm without murmurs, gallops, or rubs. RESPIRATORY: Breath sounds equal bilaterally. No accessory muscle use. GASTROINTESTINAL: Abdomen soft, non-tender, nondistended. PEG Tube in place MUSCULOSKELETAL: No cyanosis, or edema. BACK: Nontender without obvious deformity. No CVA tenderness. A/P Assessment and Plan RF, s/p Trach Removal 07/21 ESRD Non-ischemic CMP H/O CVA Coccaine use DM PLAN: Aerosol nebs cont TF Seraquel 50 mg bid Stable on Trach collar SQ Heparin. Stable on RA Master Krause MD Jul 26, 2016 18:32
[2016-07-27] VITALS: BP 133/62; PULSE 71; RESP 20; TEMP 98; O2SAT 97
[2016-07-27] MEDS: METOPROLOL TARTRATE 25 MG TAB PO/NG SCH ×3 (00:31→13:42)
[2016-07-27] MEDS: HEPARIN SODIUM - SQ 10,000 UNITS/ML VIAL SQ SCH ×2 (02:00→13:44)
[2016-07-27 04:00] VITALS: BP 140/66; PULSE 77; RESP 20; TEMP 97.7; O2SAT 100
[2016-07-27 08:00] VITALS: BP 160/73; PULSE 80; RESP 20; TEMP 97.7; O2SAT 99
[2016-07-27] MEDS: DOCUSATE SODIUM 100 MG/10 ML UDC PO SCH (08:44)
[2016-07-27] MEDS: SODIUM CHLORIDE 0.9% FLUSH 5 ML FLUSH IV FLUSH SCH (08:45)
[2016-07-27] MEDS: hydrALAZINE HCL 100 MG TAB PO SCH ×2 (08:45→13:00)
[2016-07-27] MEDS: cloNIDine HCL 0.1 MG TAB PO SCH ×2 (08:45→13:42)
[2016-07-27] MEDS: QUEtiapine FUMARATE 25 MG TAB PO SCH (08:45)
[2016-07-27] MEDS: LANSOPRAZOLE SOLUTAB 30 MG TAB NG SCH (08:45)
[2016-07-27] MEDS: NEOMYCIN/POLYMYXIN/BACITRACIN OINT 15 GM TUBE TOPICAL SCH (08:48)
[2016-07-27 12:00] VITALS: BP 141/65; PULSE 83; RESP 20; TEMP 97.2; O2SAT 98
--- NOTE | 2016-07-27 13:42 | HHI.DS ---
Discharge Summary Admission Date May 28, 2016 at 18:05 Discharge Date: Jul 28, 2016 Admitting Diagnosis hyperkalemia, cardiac arrest, ESRD, HCAP (1) Encephalopathy, metabolic ICD Code: G93.41 Diagnosis: Principal (2) HCAP (healthcare-associated pneumonia) ICD Code: J18.9 Diagnosis: Principal (3) Hyperkalemia, diminished renal excretion ICD Code: E87.5 Diagnosis: Principal (4) Hypertension ICD Code: I10 Diagnosis: Secondary (5) Hepatitis C ICD Code: B19.20 Diagnosis: Secondary (6) ESRD on hemodialysis ICD Code: N18.6 Diagnosis: Secondary (7) DM (diabetes mellitus) ICD Code: E11.9 Diagnosis: Secondary (8) Bleeding from gastrostomy tube site ICD Code: K94.21 Diagnosis: Secondary Procedures Trach, since decannulated PEG Brief History - From Admission Unable to obtain from patient currently due to his clinical condition, intubation. 60 yo AAM with PMH of HTN, stroke without residual deficit, DM, nonischemic cardiomyopathy (EF 40% and stage I diastolic dysfunction) Cocaine abuse, Hepatitis C, ESRD on HD T/R/Sat who presents to [facility] [place] [facility] ED for 2 day history of SOB. He reported symptoms started 1/5 after he received hemodialysis. He reported a nonproductive cough without fevers, chills, or chest pain. His workup revealed a normal white count and CXR that demonstrated RLL consolidation. His potassium was 6.8. While preparations were being made to administer medications to address his hyperkalemia he developed bradycardia and PEA arrest. He underwent CPR and received epinephrine and 1 amp of bicarbonate. It was return of spontaneous circulation after 8 minutes. He was intubated by the emergency department physician Dr. Clancy. Dr. Francisco with nephrology was consulted and he made arrangements for urgent dialysis which is taking place currently. Target removal 3.8 L per HD RN. Postintubation CXR demonstrates R base infiltrate but also appears there is right pleural effusion. Influenza screen negative. Receive Zosyn and azithromycin in the emergency department. Imaging Last Impressions Chest X-Ray 06/23/16 0600 Signed Impressions: Service Date/Time: June 03:02 - CONCLUSION: No significant change. Minh Aponte MD Abdomen X-Ray 06/16/16 0000 Signed Impressions: Service Date/Time: May 09:12 - CONCLUSION: Apparent appropriate placement of gastric tube placement. Amaris Rosenberg MD Abdomen/Pelvis CT 06/15/16 0000 Signed Impressions: Service Date/Time: Wednesday, June 15, 2016 13:16 - CONCLUSION: Significant free intraperitoneal air. Consolidative changes in both bases with small bilateral pleural effusions. Mikhail Abrams MD FACR Brain MRI 06/10/16 0000 Signed Impressions: Service Date/Time: Friday, June 10, 2016 20:14 - CONCLUSION: 1. Mild chronic-appearing ischemic changes in the periventricular white matter slightly progressed from 2014. No recent infarct, mass effect or midline shift. No hydrocephalus. Lakhwinder Pringle MD Liver Ultrasound 06/01/16 0000 Signed Impressions: Service Date/Time: Wednesday, June 01, 2016 15:38 - CONCLUSION: 1. Bilateral pleural effusions. 2. Thick-walled gallbladder with minimal pericholecystic fluid. If there is clinical concern for acute cholecystitis a hepatobiliary scan may be helpful to confirm cystic duct obstruction. 3. Minimal ascites. 4. Echogenic atrophic right kidney. 5. Mild nonspecific prominence of the main pancreatic duct. Enzo Price MD Head CT 05/29/16 0000 Signed Impressions: Service Date/Time: Sunday, May 29, 2016 03:03 - CONCLUSION: Age- appropriate atrophy, stable from prior in September 2015. No acute findings. Earnest Torre MD Lower Extremity Ultrasound 05/28/16 0000 Signed Impressions: Service Date/Time: Saturday, May 28, 2016 22:27 - CONCLUSION: Negative for deep venous thrombosis bilateral lower extremity. Earnest Torre MD PE at Discharge GENERAL: 60 yo male. appears in no apparent distress. HEENT: NC, AT. NECK: Decannulated, bandage in place. CARDIOVASCULAR: Normal rate and regular rhythm without murmurs, gallops, or rubs. RESPIRATORY: Breath sounds equal and clear to auscultation bilaterally. GASTROINTESTINAL: Abdomen soft, non-tender, non-distended. Normal active bowel sounds. Bandage over former PEG site. MUSCULOSKELETAL: Extremities without cyanosis, or edema. NEURO: Awake and alert. Moves all ext x4. Normal speech. Some confusion PSYCH: Flattened affect. Hospital Course Acute encephalopathy/ History of stroke without residual deficit (per friend's report)/ History of cocaine abuse/ Posttraumatic stress disorder EEG 06/12 revealed mild sleep. No seizure activity noted. MRI brain revealed chronic vascular changes; No acute findings. Neuro previously followed the patient-Dr. Wilks. Questionable anoxic injury. Becoming more alert. Haldol when necessary for agitation. Patient is improving and is more cooperative. Continue Seroquel 50 mg twice a day. Acute respiratory failure/ Healthcare associated pneumonia Intubated in ED 05/28/16 following cardiac arrest. S/p trach 06/[address] Bearden. DuoNeb q6 hours. Albuterol q2 prn. Pulmonology following. Decannulated 07/21. Breathing well on room air 07/25. Cardiac arrest, secondary to hyperkalemia/ Pulmonary edema/ Nonischemic cardiomyopathy secondary to HTN/ cocaine abuse/ Elevated Troponin Cardiac cath 12/09/2012 - EF 40%, normal coronaries. Echo 05/31: EF 25-30%, no RWMA. Mild MR/TR. MEGAN 36 mmHg. Continue hydralazine 25 tid, Clonidine 0.1 tid, Lopressor 25mg q6h, ASA 81 mg daily. Blood pressure well controlled 07/25. Per cardiology-no intervention planned. Continue dialysis for volume management. Hepatitis C/ Elevated LFTs/ Free air - likely secondary to EGD/tube feeding insufflation US liver: Bilateral pleural effusions. Thick-walled gallbladder with minimal pericholecystic fluid. Minimal ascites. Echogenic atrophic right kidney. Mild nonspecific prominence of the main pancreatic duct. Prevacid for GI prophylaxis. Colace for bowel regimen. ESRD/ Acute severe hyperkalemia/ Hypophosphatemia Emergent HD 05/28 due to potassium of 6.8 with bradycardia and cardiac arrest. Continue Hemodialysis per nephrology. Continue PhosLo 667 mg 3 times a day. Monitor electrolytes as needed. Protein calorie malnutrition S/P EGD with PEG placement 06/13/2016. PEG tube removed 07/23/16. Tolerating diet. Follow up with novelty chain maker as needed. Healthcare associated pneumonia S/p Zosyn 2.25 g IV every 8 hours 05/29 - 06/12. Azithro x 10 days.05/28 nasal washing negative for Influenza. Continue to monitor off antibiotics. Stable. Normocytic Anemia requiring transfusion, previously from acute blood loss from PEG tube 3 unit prbc, 1 FFP, 1 plt. DDAVP. Coags within normal limits. Received 16 mg DDAVP and [address] Kevin/hematology followed. Von Willebrand antigen factor normal Hgb has been stable. Continue to monitor. Prophylaxis: Heparin subcutaneous/ Prevacid 30 mg daily for stress ulcer prophylaxis.NF Patient improved. Discharged to SNF in fairly good condition to follow up as OP with PCP and consultants. Pt Condition on Discharge: Stable Discharge Disposition: Discharge to SNF Discharge Time: > 30 minutes Discharge Instructions DIET: Follow Instructions for: Renal Failure Diet Speech Therapy-Diet Recommends: Pureed Activities you can perform: Regular-No Restrictions Follow up Referrals: Nephrology - 3-5 Days PCP Follow-up - 3-5 Days SNF/NURSING HOME/HH with [facility] Continued Medications: Aspirin DR (Aspirin Adult Low Strength) 81 Mg Tabdr 81 MG PO DAILY TAB Calcium Acetate (Phosphate Binder) (Phoslo) 667 Mg Cap 2001 MG PO TID Hyperphosphatemia #270 Ref 0 CAP Clonidine (Catapres) 0.1 Mg Tab 0.1 MG PO TID Blood Pressure Management #60 Ref 0 TAB Hydralazine (Hydralazine) 25 Mg Tab 25 MG PO TID Take with a meal Blood Pressure Management #90 Ref 0 TAB Insulin Human Regular Inj (Novolin R Inj) 1,000 Unit/10 Ml Vial 0 SQ DIRECTED Sliding Scale As Directed. Blood Sugar Management #10 Ref 0 ML Metoprolol Tartrate (Metoprolol Tartrate) 100 Mg Tab 100 MG PO BID #60 Ref 0 TAB Yesi Boss MD Jul 27, 2016 13:41
== END 2016-07-27 15:17 | DRG 3 ==
LOC: NEPA 15:33 → NEDA 18:05 → HIME 22:05 → HCIN 06-28 23:21 → N04A 07-04 17:20
PROVIDERS: ADMIT Hospitalist; ATTEND Hospitalist
PROC: 5A1955Z Respiratory Ventilation, Greater than 96 Consecutive Hours (ICD-10-PCS; 2016-05-28)
PROC: 5A12012 Performance of Cardiac Output, Single, Manual (ICD-10-PCS; 2016-05-28)
PROC: 0BH17EZ Insertion of Endotracheal Airway into Trachea, Via Natural or Artificial Opening (ICD-10-PCS; 2016-05-28)
PROC: 5A1D60Z (ICD-10-PCS; 2016-05-28)
PROC: 0DB98ZX Excision of Duodenum, Via Natural or Artificial Opening Endoscopic, Diagnostic (ICD-10-PCS; 2016-06-13)
PROC: 0DB68ZX Excision of Stomach, Via Natural or Artificial Opening Endoscopic, Diagnostic (ICD-10-PCS; 2016-06-13)
PROC: 0DH63UZ Insertion of Feeding Device into Stomach, Percutaneous Approach (ICD-10-PCS; 2016-06-13)
PROC: 0W3P8ZZ Control Bleeding in Gastrointestinal Tract, Via Natural or Artificial Opening Endoscopic (ICD-10-PCS; 2016-06-14)
PROC: 30233N1 Transfusion of Nonautologous Red Blood Cells into Peripheral Vein, Percutaneous Approach (ICD-10-PCS; 2016-06-14)
PROC: 30233R1 Transfusion of Nonautologous Platelets into Peripheral Vein, Percutaneous Approach (ICD-10-PCS; 2016-06-14)
PROC: 0BJ08ZZ Inspection of Tracheobronchial Tree, Via Natural or Artificial Opening Endoscopic (ICD-10-PCS; 2016-06-14)
PROC: 0B113F4 Bypass Trachea to Cutaneous with Tracheostomy Device, Percutaneous Approach (ICD-10-PCS; principal; 2016-06-14 16:50)
PROC: 0W3F3ZZ Control Bleeding in Abdominal Wall, Percutaneous Approach (ICD-10-PCS; 2016-06-15)
PROC: 0H97XZZ Drainage of Abdomen Skin, External Approach (ICD-10-PCS; 2016-06-15)
PROC: 30233K1 Transfusion of Nonautologous Frozen Plasma into Peripheral Vein, Percutaneous Approach (ICD-10-PCS; 2016-06-15)
PROC: 0BP1XFZ Removal of Tracheostomy Device from Trachea, External Approach (ICD-10-PCS; 2016-07-21)
PROC: 0DP6XUZ Removal of Feeding Device from Stomach, External Approach (ICD-10-PCS; 2016-07-23)
DX: E87.5 Hyperkalemia (principal); I46.8 Cardiac arrest due to other underlying condition; I21.4 Non-ST elevation (NSTEMI) myocardial infarction; G93.41 Metabolic encephalopathy; I13.2 Hypertensive heart and chronic kidney disease with heart failure and with stage 5 chronic kidney disease, or end stage renal disease; J18.9 Pneumonia, unspecified organism; E87.4 Mixed disorder of acid-base balance; N18.6 End stage renal disease; J96.00 Acute respiratory failure, unspecified whether with hypoxia or hypercapnia; I43 Cardiomyopathy in diseases classified elsewhere; I50.42 Chronic combined systolic (congestive) and diastolic (congestive) heart failure; J95.01 Hemorrhage from tracheostomy stoma; D62 Acute posthemorrhagic anemia; E46 Unspecified protein-calorie malnutrition; E11.22 Type 2 diabetes mellitus with diabetic chronic kidney disease; D69.6 Thrombocytopenia, unspecified; Y95 Nosocomial condition; B18.2 Chronic viral hepatitis C; I25.10 Atherosclerotic heart disease of native coronary artery without angina pectoris; I25.2 Old myocardial infarction; I07.1 Rheumatic tricuspid insufficiency; R13.10 Dysphagia, unspecified; K94.21 Gastrostomy hemorrhage; D69.1 Qualitative platelet defects; D63.1 Anemia in chronic kidney disease; E83.51 Hypocalcemia; K44.9 Diaphragmatic hernia without obstruction or gangrene; K29.80 Duodenitis without bleeding; K29.70 Gastritis, unspecified, without bleeding; E83.39 Other disorders of phosphorus metabolism; R00.1 Bradycardia, unspecified; R45.1 Restlessness and agitation; E78.5 Hyperlipidemia, unspecified; F17.200 Nicotine dependence, unspecified, uncomplicated; F14.10 Cocaine abuse, uncomplicated; F43.10 Post-traumatic stress disorder, unspecified; Z79.4 Long term (current) use of insulin; Z83.3 Family history of diabetes mellitus; Z86.14 Personal history of Methicillin resistant Staphylococcus aureus infection; Z86.73 Personal history of transient ischemic attack (TIA), and cerebral infarction without residual deficits; Z86.74 Personal history of sudden cardiac arrest; Z88.2 Allergy status to sulfonamides; Z91.19 Patient's noncompliance with other medical treatment and regimen; Z99.2 Dependence on renal dialysis
CPT/HCPCS: 31500; 36430; 36600; 51702; 70450; 70551; 71010; 74000; 74177; 76705; 76937; 80048; 80053; 80069; 80076; 82040; 82140; 82272; 82550; 82552; 82805; 82948; 83605; 83735; 83880; 84100; 84132; 84484; 85007; 85014; 85018; 85025; 85027; 85240; 85245; 85246; 85247; 85335; 85384; 85610; 85730; 86850; 86900; 86901; 86920; 86927; 86965; 87040; 87070; 87205; 87641; 87804; 88305; 88312; 90935; 93005; 93306; 93970; 94002; 94003; 94640; 94664; 95819; 96365; 96368; 96374; 96375; A7520; C9113; C9399; J0171; J0330; J0456; J0461; J0610; J0690; J1630; J1644; J1815; J2060; J2543; J2597; J3010; J3430; J7030; J7050; J7611; P9016; P9017; P9035; P9047; Q4081; Q9967

== ENCOUNTER 2016-09-02 15:11 | Emergency (ER) | payer OTHER ==
[~2016-09-02] VITALS: Ht 172.7 cm; Wt 72.5 kg
[~2016-09-02 15:11] MED LIST changes: +ASPI1TAB91 PO; -ASPI81TA82 PO; -ATROPINE SULFATE 1 MG/10 ML SYRINGE IV ONE; -CALC667T PO; -DOCU100T9 PO; -EPINEPHrine HCL (1:10,000) 1 MG/10 ML SYRINGE IV ONE; +METO100T PO; -METO50TA PO; -NEPRLIQ PO; +NOVORP2 SQ; -NRSS SQ; +PHOS667C5 PO; -SODIUM BICARBONATE 8.4% INJ 50 MEQ/50 ML SYR IV ONE
[2016-09-02 15:13] VITALS: BP 152/90; PULSE 99; RESP 18; TEMP 98.1; O2SAT 97
--- NOTE | 2016-09-02 15:25 | PD ---
Physical Exam Date Seen by Provider: Sep 02, 2016 Time Seen by Provider: 15:24 Narrative 60 year old male presents to the emergency department requesting suture removal from where his feeding tube was removed several months ago. Vital signs reviewed. Patient awaiting bed placement. Data Data Last Documented VS Vital Signs Date Time Temp Pulse Resp B/P Pulse Ox O2 Delivery O2 Flow Rate FiO2 09/02/16 15:13 98.1 99 18 152/90 97 Room Air [facility] Supervised Visit with RAMBO: Nida Silverman Sep 02, 2016 15:25
--- NOTE | 2016-09-02 15:45 | PD ---
HPI . Suture removal Chief Complaint: Wound/Suture/Staple Re-Check Time Seen by Provider: 16:02 Travel History International Travel<30 days: No Contact w/Intl Traveler<30days: No Traveled to known affect area: No History of Present Illness HPI 60-year-old male here with complaints of sutures to his neck where an old tracheostomy as well as suture near his umbilicus where he used to have a PEG tube. Patient says the sutures have been present for over several months and he decided to come into the emergency department to have them remove if they have not been disappearing. He has no complaints. He is accompanied by his . PFSH Past Medical History Hx Anticoagulant Therapy: Yes (aspirin 81) Asthma: No Autoimmune Disease: No Blood Disorders: No Anxiety: Yes (PTSD) Depression: No Heart Rhythm Problems: No Cancer: No Cardiovascular Problems: Yes High Cholesterol: Yes Chemotherapy: No Chest Pain: Yes Congestive Heart Failure: Yes COPD: No Cerebrovascular Accident: Yes Coronary Artery Disease: Yes Diabetes: Yes Dialysis: Yes (//MON) Diminished Hearing: No Endocrine: Yes Gastrointestinal Disorders: No GERD: No Genitourinary: Yes (ESRD) Hepatitis: Yes (HEP C) Hiatal Hernia: No Hypertension: Yes Immune Disorder: No Implanted Vascular Access Dvce: Yes Musculoskeletal: No Neurologic: Yes (CVA) Psychiatric: No Reproductive: No Respiratory: Yes Myocardial Infarction: Yes Radiation Therapy: No Renal Failure: Yes Sleep Apnea: No Thyroid Disease: No Ulcer: No Past Surgical History AICD: No Arteriovenous Shunt: Yes (LEFT FA) Body Medical Devices: FISTULA Endocrine Surgery: Yes (FISTULA LEFT ARM) Insulin Pump: No Joint Replacement: No Pacemaker: No Other Surgery: Yes (scrotal surgery, PIN PLACEMENT S/P FINGER FX, AV SHUNT L FA ) Social History Alcohol Use: No Tobacco Use: Yes Substance Use: Yes (Cocaine) Allergies-Medications (Allergen,Severity, Reaction): Coded Allergies: Ibuprofen (Verified Allergy, Severe, 09/02/16) Sulfa (Verified Allergy, Severe, Rash, 09/02/16) *MDRO Multi-Drug Resistant Organism (Verified Adverse Reaction, Unknown, ) 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 Reported Meds & Prescriptions Reported Meds & Active Scripts Active Reported Renvela (Sevelamer Carbonate) 800 Mg Tab 1,600 Mg PO TID Metoprolol Tartrate 100 Mg Tab 100 Mg PO BID Aspirin Adult Low Strength (Aspirin) 81 Mg Tabdr 81 Mg PO DAILY Review of Systems General / Constitutional: No: Fever Eyes: No: Visual changes HENT: No: Headaches Cardiovascular: No: Chest Pain or Discomfort Respiratory: No: Shortness of Breath Gastrointestinal: No: Abdominal Pain Genitourinary: No: Dysuria Musculoskeletal: No: Pain Skin: Positive Other (suture removal), No Rash Neurologic: No: Weakness Psychiatric: No: Depression Endocrine: No: Polydipsia Hematologic/Lymphatic: No: Easy Bruising Physical Exam Narrative GENERAL: AAO x 3, no acute distress, Well-nourished, well-developed patient. SKIN: Warm and dry. No visible rashes or bruising. one suture above umbilicus, 2 sutures where old trach was, one of them overgrown HEAD: Normocephalic and atraumatic. EYES: No scleral icterus. No injection or drainage. ENT: No nasal drainage noted. Mucous membranes pink. Airway patent. NECK: Supple, trachea midline. No JVD. CARDIOVASCULAR: Regular rate and rhythm without murmurs, gallops, or rubs. RESPIRATORY: Breath sounds equal bilaterally. No accessory muscle use. No rhonchi or rales. GASTROINTESTINAL: Abdomen soft, non-tender, nondistended. EXTREMITIES: No cyanosis or edema. BACK: Nontender without obvious deformity. No CVA tenderness. PSYCH: AAO x 3, normal affect. Data Data Last Documented VS Vital Signs Date Time Temp Pulse Resp B/P Pulse Ox O2 Delivery O2 Flow Rate FiO2 09/02/16 15:13 98.1 99 18 152/90 97 Room Air MDM Medical Decision Making Medical Screen Exam Complete: Yes Emergency Medical Condition: Yes Medical Record Reviewed: Yes Differential Diagnosis suture removal, overgrown sutures, wound dehiscence Narrative Course 60-year-old male here with complaints of sutures to his neck where an old tracheostomy as well as suture near his umbilicus where he used to have a PEG tube. Patient says the sutures have been present for over several months and he decided to come into the emergency department to have them remove if they have not been disappearing. He has no complaints. He is accompanied by his . Patient seen and examined. The sutures were removed. Patient tolerated without incident. He was advised to f/u with primary care provider as scheduled. Patient verbalized understanding of instructions, questions were answered, and thanked me for their care. I advised them if their condition worsens, please return to the nearest emergency room for further care. Procedures Procedure Narrative suture removal 2 sutures removed from neck where old trach was 1 suture removed above umbilicus the area was cleaned no evidence of infection or dehiscence patient tolerated without incident Diagnosis Primary Impression: Visit for suture removal Patient Instructions: General Instructions Additional Instructions: Please return to emergency department if your symptoms return or worsen. Follow up with your primary care provider. Med/Other Pt SpecificInfo: No Change to Meds Disposition: 01 DISCHARGE HOME Condition: Stable Mary Alice Dougherty Sep 02, 2016 15:45
[2016-09-02] MEDS ORDERED: SEVEL800 PO (15:58)
== END 2016-09-02 16:28 | disposition home or self-care (01) ==
LOC: NEPK 15:11
DX: Z48.02 Encounter for removal of sutures (principal); E78.00 Pure hypercholesterolemia, unspecified; I50.9 Heart failure, unspecified; I25.10 Atherosclerotic heart disease of native coronary artery without angina pectoris; E11.9 Type 2 diabetes mellitus without complications; I12.0 Hypertensive chronic kidney disease with stage 5 chronic kidney disease or end stage renal disease; N18.6 End stage renal disease; B19.20 Unspecified viral hepatitis C without hepatic coma; I25.2 Old myocardial infarction; Z72.0 Tobacco use; Z79.82 Long term (current) use of aspirin; Z99.2 Dependence on renal dialysis; Z86.73 Personal history of transient ischemic attack (TIA), and cerebral infarction without residual deficits
CPT/HCPCS: 99281

== ENCOUNTER 2017-05-15 22:50 | Inpatient (IN) | payer OTHER ==
[~2017-05-15] VITALS: Ht 172.7 cm; Wt 61.5 kg
[~2017-05-15 22:50] MED LIST changes: -ASPI1TAB91 PO; +ASPI81TA16 PO; +CEPH-460 PO; -CLON.1 PO; +ERYTOIN10 RIGHT EYE; -HYDR25TA35 PO; -NOVORP2 SQ; -PHOS667C5 PO; +SEVEL800 PO
[2017-05-15] MEDS ORDERED: IOHEXOL 350 MG/ML 10 ML VIAL (for RAD DIAG) IVCONTRAST ONE (22:51)
[2017-05-15 22:55] VITALS: BP 175/114; PULSE 114; RESP 22; TEMP 98; O2SAT 97
[2017-05-15 23:05] VITALS: BP 164/83; PULSE 109; RESP 25; O2SAT 100
[2017-05-15] MEDS ORDERED: methylPREDNISolone SOD SUCC 125 MG/2 ML VIAL IV PUSH ONE (23:15)
[2017-05-15] MEDS ORDERED: HYDR-3799 PO (23:30)
[2017-05-15] MEDS ORDERED: BENZ1CAP54 PO (23:30)
[2017-05-15] MEDS ORDERED: AMOX875T PO (23:30)
[2017-05-15] MEDS ORDERED: FERR325T18 PO (23:30)
[2017-05-15 23:52] LABS: AUTOMATED NEUTROPHIL # 4.7 TH/MM3 (1.8-7.7); BASOPHIL # 0.1 TH/MM3 (0-0.2); BASOPHIL % 1.3 % (0.0-2.0); EOSINOPHIL # 0.1 TH/MM3 (0-0.4); EOSINOPHIL % 1.9 % (0.0-4.0); HEMATOCRIT 37.7 % (39.0-51.0); HEMOGLOBIN 12.4 GM/DL (13.0-17.0); LYMPH % 20.6 % (9.0-44.0); LYMPHOCYTE # 1.5 TH/MM3 (1.0-4.8); MEAN CELL VOLUME 94.1 FL (80.0-100.0); MEAN PLATELET VOLUME 11.5 FL (7.0-11.0); MONO % 11.3 % (0.0-8.0); MONOCYTE # 0.8 TH/MM3 (0-0.9); NEUT % 64.9 % (16.0-70.0); PLATELET COUNT 232 TH/MM3 (150-450); RED BLOOD COUNT 4.01 MIL/MM3 (4.50-5.90); RED CELL DISTRIBUTION WIDTH 16.1 % (11.6-17.2); WHITE BLOOD COUNT 7.2 TH/MM3 (4.0-11.0)
[2017-05-15] MEDS: RESP: ALBUTEROL 2.5 MG/IPRATROPIUM 0.5 MG NEB (SCH) INH (23:53)
[2017-05-16] VITALS (12 sets, daily range): BP systolic 134–186; BP diastolic 62–102; PULSE 95–110; RESP 16–20; TEMP 95.5–98; O2SAT 93–100
--- NOTE | 2017-05-16 00:09 | RADRPT ---
EXAM DATE/TIME: 05/15/2017 23:49 [facility] COMPARISON: CHEST SINGLE AP, June 23, 2016, 18:38. INDICATIONS : Short of breath. MEDICAL HISTORY : Renal insufficiency, chronic. Myocardial infarction. Stroke. SURGICAL HISTORY : None. ENCOUNTER: Initial ACUITY: 2 weeks PAIN SCORE: 4/10 LOCATION: Bilateral chest FINDINGS: The previously seen pulmonary edema has improved, however the right lung base consolidation and pleur al effusion have progressed. Slight cardiomegaly remains. CONCLUSION: Worsening right pleural effusion and consolidation, however overall degree of pulmonary edema has imp roved. KRasheed Roland MD on May 16, 2017 at 0:07 Board Certified Radiologist. This report was verified electronically.
[2017-05-16 00:20] LABS: BASOPHILS 3 % (0-2); LYMPHOCYTES 12 % (9-44); MONOCYTES 5 % (0-8); NEUTROPHIL # MANUAL DIFF 5.5 TH/MM3 (1.8-7.7); POLYS (SEG NEUTROPHILS) 77 % (16-70)
[2017-05-16 00:21] LABS: OVALOCYTES 1+ (NORMAL)
[2017-05-16 00:37] LABS: ALBUMIN 3.3 GM/DL (3.4-5.0); ALT (GPT) 14 U/L (12-78); AST (GOT) 17 U/L (15-37); BICARBONATE 29.7 MEQ/L (21.0-32.0); BLOOD UREA NITROGEN 54 MG/DL (7-18); CALCIUM 8.7 MG/DL (8.5-10.1); CHLORIDE 106 MEQ/L (98-107); CREATININE 9.14 MG/DL (0.60-1.30); GLOMERULAR FILTRATION RATE 7 ML/MIN (>89); GLUCOSE,RANDOM 69 MG/DL (74-106); SODIUM (NA) 143 MEQ/L (136-145)
[2017-05-16 00:40] LABS: ALKALINE PHOSPHATASE 99 U/L (45-117); TOTAL BILIRUBIN ADULT 0.4 MG/DL (0.2-1.0); TOTAL PROTEIN 7.4 GM/DL (6.4-8.2); TROPONIN I 0.19 NG/ML (0.02-0.05)
--- NOTE | 2017-05-16 02:51 | RADRPT ---
EXAM DATE/TIME: 05/16/2017 02:28 [facility] COMPARISON: No previous studies available for comparison. INDICATIONS : Shortness of breath with elevated D-Dimer. IV CONTRAST: 70 cc Omnipaque 350 (iohexol) IV RADIATION DOSE: 23.37 CTDIvol (mGy) MEDICAL HISTORY : Cardiovascular disease. Hypertension. Renal disease, end stage.Dialysis Hep C SURGICAL HISTORY : AV Shunt ENCOUNTER: Initial ACUITY: 2 days PAIN SCALE: 0/10 LOCATION: Bilateral chest TECHNIQUE: Volumetric scanning of the chest was performed using a pulmonary embolism protocol MIP images were re constructed. Using automated exposure control and adjustment of the mA and/or kV according to patien t size, radiation dose was kept as low as reasonably achievable to obtain optimal diagnostic quality images. DICOM format image data is available electronically for review and comparison. Follow-up recommendations for detected pulmonary nodules are based at a minimum on nodule size and pa tient risk factors according to Fleischner Society Guidelines. FINDINGS: There is no evidence for PE for technique. There is a small left pleural effusion with a large r ight pleural effusion and consolidation and/or compressive collapse of the right lower lobe. Coronary artery calcifications are seen typically seen with CAD and need to be evaluated clinically. The gall bladder is contracted. CONCLUSION: Large right pleural effusion and compressive collapse and/or consolidation right lung base with a sma ll left pleural effusion. Humberto Roland MD on May 16, 2017 at 2:46 Board Certified Radiologist. This report was verified electronically.
[2017-05-16] MEDS ORDERED: SENNOSIDES 8.6 MG TAB PO PRN (03:45)
[2017-05-16] MEDS ORDERED: SODIUM CHLORIDE 0.9% FLUSH 10 ML FLUSH IV FLUSH PRN ×2 (03:45→10:00)
[2017-05-16] MEDS ORDERED: ACETAMINOPHEN 325 MG TAB PO PRN ×2 (03:45→10:00)
[2017-05-16] MEDS ORDERED: GLUCAGON 1 MG/ML VIAL OTHER PRN (03:45)
[2017-05-16] MEDS ORDERED: BISACODYL 10 MG SUPP RECTAL PRN (03:45)
[2017-05-16] MEDS ORDERED: DEXTROSE 50% IN WATER 50 ML VIAL(D50) IV PUSH PRN (03:45)
[2017-05-16] MEDS ORDERED: ONDANSETRON HCL 4 MG/2 ML VIAL IVP PRN (03:45)
[2017-05-16] MEDS ORDERED: NALOXONE HCL 0.4 MG/ML AMP IV PUSH PRN (03:45)
[2017-05-16 03:59] LABS: INTERNATIONAL NORMALIZED RATIO 1.2 RATIO; PROTHROMBIN TIME - PATIENT 11.9 SEC (9.8-11.6)
--- NOTE | 2017-05-16 04:15 | HHI.HP ---
[facility] No Primary Care Physician Admission Diagnosis pleural effusion Diagnoses: Travel History International Travel<30 Days: No Contact w/Intl Traveler <30 Da: No Traveled to Known Affected Are: No History of Present Illness 61-year-old male with a past medical history significant for ESRD on HD, hypertension, diabetes mellitus, polysubstance abuse, hepatitis C, [place] in May secondary to hyperkalemia and CHF with an EF of 25-30% presents to the emergency department with a 2 day history of increasing shortness of breath. The patient reports that he has had a nonproductive cough with intermittent wheezes that has been steadily worsening. CTA shows large right pleural effusion. Laboratory values significant for a creatinine of 9.4, troponin is 0.19 and a BNP greater than 5000. Review of Systems Denies fever or chills Denies blurry vision, otorrhea, rhinorrhea Denies sore throat, positive cough No chest pain, palpitations, positive shortness of breath No abdominal pain Denies constipation/diarrhea/nausea/vomiting Denies muscle pain/weakness No rashes Past Family Social History Past Medical History Hypertension Diabetes mellitus Cocaine abuse Tobacco abuse Hepatitis C Nonischemic cardiomyopathy with EF of 40% End-stage renal disease on hemodialysis Past Surgical History Scrotal surgery ORIF finger Left upper extremity fistula 09/14/12 Cardiac catheterization in 2012 Reported Medications Reported Meds & Active Scripts Active Reported Hydralazine HCl 25 Mg Tablet 25 Mg PO BID Ferrous Sulfate 325 Mg (65 Mg Iron) Tablet 324 Mg PO BIDPC Benzonatate 100 Mg Cap 100 Mg PO TID PRN Amoxicillin 875 Mg Tab 875 Mg PO BID Renvela (Sevelamer Carbonate) 800 Mg Tab 1,600 Mg PO TID Aspirin Adult Low Strength (Aspirin) 81 Mg Tabdr 81 Mg PO DAILY Allergies: Coded Allergies: Sulfa (Sulfonamide Antibiotics) (Unverified Allergy, Severe, Rash, ) ibuprofen (Unverified Allergy, Severe, 05/15/17) *MDRO Multi-Drug Resistant Organism (Verified Adverse Reaction, Unknown, 05/15/17) 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 Family History Family history of diabetes mellitus Social History Patient denies alcohol, illicit drugs. States he smokes 2 cigarettes per day. Medical record indicates history of cocaine abuse. Physical Exam Vital Signs Vital Signs Date Time Temp Pulse Resp B/P (MAP) Pulse Ox O2 Delivery O2 Flow Rate FiO2 05/16/17 03:38 107 18 158/74 (102) 96 Room Air 05/16/17 03:07 110 186/96 (126) 93 Room Air 05/15/17 23:05 109 25 164/83 (110) 100 Room Air 05/15/17 22:55 98.0 114 22 175/114 (134) 97 Room Air Physical Exam GENERAL: male lying in bed. SKIN: No rashes, ecchymoses or lesions. Cool and dry. HEAD: Atraumatic. Normocephalic. No temporal or scalp tenderness. EYES: Pupils equal round and reactive. Extraocular motions intact. No scleral icterus. No injection or drainage. ENT: Nose without bleeding, purulent drainage or septal hematoma. Throat without erythema, tonsillar hypertrophy or exudate. Uvula midline. Airway patent. NECK: Trachea midline. No JVD or lymphadenopathy. Supple, nontender, no meningeal signs. CARDIOVASCULAR: Regular rate and rhythm without murmurs, gallops, or rubs. RESPIRATORY: Decreased breath sounds on the right. No wheezes, rales, or rhonchi. GASTROINTESTINAL: Abdomen soft, non-tender, nondistended. No hepato-splenomegaly , or palpable masses. No guarding. MUSCULOSKELETAL: Extremities without clubbing, cyanosis, or edema. No joint tenderness, effusion, or edema noted. No calf tenderness. Left upper extremity fistula, palpable thrill. NEUROLOGICAL: Awake and alert. Cranial nerves II through XII intact. Motor and sensory grossly within normal limits. Normal speech. Laboratory Laboratory Tests Test 05/15/17 23:25 05/16/17 00:05 05/16/17 03:35 White Blood Count 7.2 Red Blood Count 4.01 Hemoglobin 12.4 Hematocrit 37.7 Mean Corpuscular Volume 94.1 Mean Corpuscular Hemoglobin 31.0 Mean Corpuscular Hemoglobin Concent 33.0 Red Cell Distribution Width 16.1 Platelet Count 232 Mean Platelet Volume 11.5 Neutrophils (%) (Auto) 64.9 Lymphocytes (%) (Auto) 20.6 Monocytes (%) (Auto) 11.3 Eosinophils (%) (Auto) 1.9 Basophils (%) (Auto) 1.3 Neutrophils # (Auto) 4.7 Lymphocytes # (Auto) 1.5 Monocytes # (Auto) 0.8 Eosinophils # (Auto) 0.1 Basophils # (Auto) 0.1 CBC Comment AUTO DIFF Differential Total Cells Counted 100 Neutrophils % (Manual) 77 Lymphocytes % 12 Monocytes % 5 Eosinophils % 3 Basophils % 3 Neutrophils # (Manual) 5.5 Differential Comment FINAL DIFF MANUAL Platelet Estimate NORMAL Platelet Morphology Comment ENLARGED Ovalocytes 1+ D-Dimer Quantitative (PE/DVT) 2.24 B-Type Natriuretic Peptide GREATER THAN 5000 Blood Urea Nitrogen 54 Creatinine 9.14 Random Glucose 69 Total Protein 7.4 Albumin 3.3 Calcium Level 8.7 Alkaline Phosphatase 99 Aspartate Amino Transf (AST/SGOT) 17 Alanine Aminotransferase (ALT/SGPT) 14 Total Bilirubin 0.4 Sodium Level 143 Potassium Level 4.1 Chloride Level 106 Carbon Dioxide Level 29.7 Anion Gap 7 Estimat Glomerular Filtration Rate 7 Troponin I 0.19 Result Diagram: 05/15/17 2325 05/16/17 0005 Caprini VTE Risk Assessment Caprini VTE Risk Assessment: Mod/High Risk (score >= 2) Caprini Risk Assessment Model Point Value = 1 Point Value = 2 Point Value = 3 Point Value = 5 Age 41-60 Minor surgery BMI > 25 kg/m2 Swollen legs Varicose veins or History of unexplained or recurrent spontaneous Oral contraceptives or hormone replacement Sepsis (< 1 month) Serious lung disease, including pneumonia (< 1 month) Abnormal pulmonary function Acute myocardial infarction Congestive heart failure (< 1 month) History of inflammatory bowel disease Medical patient at bed rest Age 61-74 Arthroscopic surgery Major open surgery (> 45 min) Laparoscopic surgery (> 45 min) Malignancy Confined to bed (> 72 hours) Immobilizing plaster cast Central venous access Age >= 75 History of VTE Family history of VTE Factor V Leiden Prothrombin [id number] Lupus anticoagulant Anticardiolipin antibodies Elevated serum homocysteine Heparin-induced thrombocytopenia Other congenital or acquired thrombophilia Stroke (< 1 month) Elective arthroplasty Hip, pelvis, or leg fracture Acute spinal cord injury (< 1 month) Prophylaxis Regimen Total Risk Factor Score Risk Level Prophylaxis Regimen 0-1 Low Early ambulation 2 Moderate Order ONE of the following: *Sequential Compression Device (SCD) *Heparin 5000 units SQ BID 3-4 Higher Order ONE of the following medications: *Heparin 5000 units SQ TID *Enoxaparin/Lovenox 40 mg SQ daily (WT < 150 kg, CrCl > 30 mL/min) *Enoxaparin/Lovenox 30 mg SQ daily (WT < 150 kg, CrCl > 10-29 mL/min) *Enoxaparin/Lovenox 30 mg SQ BID (WT < 150 kg, CrCl > 30 mL/min) AND/OR *Sequential Compression Device (SCD) 5 or more Highest Order ONE of the following medications: *Heparin 5000 units SQ TID (Preferred with Epidurals) *Enoxaparin/Lovenox 40 mg SQ daily (WT < 150 kg, CrCl > 30 mL/min) *Enoxaparin/Lovenox 30 mg SQ daily (WT < 150 kg, CrCl > 10-29 mL/min) *Enoxaparin/Lovenox 30 mg SQ BID (WT < 150 kg, CrCl > 30 mL/min) AND *Sequential Compression Device (SCD) Assessment and Plan Assessment and Plan Assessment/plan: 1. Large right-sided pleural effusion Interventional radiology consulted for possible pleurocentesis 2. ESRD on HD Last dialysis Monday Rehab Technician is Dr. Peck Cr 9.14, K 4.1 Nephrology consulted, appreciate assistance 3. CHF Last echo showed EF of 25-30% BNP greater than 5000 Patient oliguric Monitor for signs of volume overload 4. DM SSI Monitor blood glucose 5. HTN Continue home hydralazine FEN NPO Electrolytes: monitor Holding pharmacologic anticoagulation for possible pleurocentesis Physician Certification 2 Midnight Certification Type: Admission for Inpatient Services Order for Inpatient Services The services are ordered in accordance with Medicare regulations or non- Medicare payer requirements, as applicable. In the case of services not specified as inpatient-only, they are appropriately provided as inpatient services in accordance with the 2-midnight benchmark. Estimated LOS (days): 2 2 days is the estimated time the patient will need to remain in the hospital, assuming treatment plan goals are met and no additional complications. Post-Hospital Plan: Not yet determined Grace Foster MD May 16, 2017 04:15
--- NOTE | 2017-05-16 04:39 | PD ---
HPI Chief Complaint: Respiratory Symptoms Time Seen by Provider: 23:04 Travel History International Travel<30 days: No Contact w/Intl Traveler<30days: No Traveled to known affect area: No History of Present Illness HPI A 61-year-old male who has a history of end-stage renal disease who presents to the emergency department with increasing shortness of breath it's been going on for 2 days, constant, moderate severity, worse with exertion, improved with rest. He denies any chest pain. He did have dialysis yesterday. He denies any fevers or chills. PFSH Past Medical History Hx Anticoagulant Therapy: Yes (aspirin 81) Asthma: No Autoimmune Disease: No Blood Disorders: No Anxiety: Yes (PTSD) Depression: No Heart Rhythm Problems: No Cancer: No Cardiovascular Problems: Yes High Cholesterol: Yes Chemotherapy: No Chest Pain: Yes Congestive Heart Failure: Yes COPD: No Cerebrovascular Accident: Yes Coronary Artery Disease: Yes Diabetes: Yes Patient Takes Glucophage: No Dialysis: Yes (//MON) Diminished Hearing: No Endocrine: Yes Gastrointestinal Disorders: No GERD: No Genitourinary: Yes (ESRD) Hepatitis: Yes (HEP C) Hiatal Hernia: No Hypertension: Yes Immune Disorder: No Implanted Vascular Access Dvce: Yes Musculoskeletal: No Neurologic: Yes (CVA) Psychiatric: No Reproductive: No Respiratory: Yes Immunizations Current: Yes Myocardial Infarction: Yes Radiation Therapy: No Renal Failure: Yes Sleep Apnea: No Thyroid Disease: No Ulcer: No Past Surgical History AICD: No Arteriovenous Shunt: Yes (LEFT FA) Body Medical Devices: FISTULA Endocrine Surgery: Yes (FISTULA LEFT ARM) Insulin Pump: No Joint Replacement: No Pacemaker: No Other Surgery: Yes (scrotal surgery, PIN PLACEMENT S/P FINGER FX, AV SHUNT L FA ) Social History Alcohol Use: No Tobacco Use: Yes Substance Use: Yes (Cocaine) Allergies-Medications (Allergen,Severity, Reaction): Coded Allergies: Sulfa (Sulfonamide Antibiotics) (Unverified Allergy, Severe, Rash, ) ibuprofen (Unverified Allergy, Severe, 05/15/17) *MDRO Multi-Drug Resistant Organism (Verified Adverse Reaction, Unknown, 05/15/17) 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 Reported Meds & Prescriptions Reported Meds & Active Scripts Active Reported Hydralazine HCl 25 Mg Tablet 25 Mg PO BID Ferrous Sulfate 325 Mg (65 Mg Iron) Tablet 324 Mg PO BIDPC Benzonatate 100 Mg Cap 100 Mg PO TID PRN Amoxicillin 875 Mg Tab 875 Mg PO BID Renvela (Sevelamer Carbonate) 800 Mg Tab 1,600 Mg PO TID Aspirin Adult Low Strength (Aspirin) 81 Mg Tabdr 81 Mg PO DAILY Review of Systems Except as stated in HPI: all other systems reviewed are Neg Physical Exam Narrative GENERAL:Well appearing, no acute distress SKIN: Focused skin assessment warm and dry. HEAD: Atraumatic. Normocephalic. EYES: Pupils equal and round. No injection or drainage. ENT: Moist mucous membranes NECK: Trachea midline. CARDIOVASCULAR: Regular rate and rhythm. No murmur appreciated. RESPIRATORY: Diminished lung sounds in the right with tachypnea and increased work of breathing. GASTROINTESTINAL: Abdomen soft, non-tender, nondistended. MUSCULOSKELETAL: No obvious deformities. NEUROLOGICAL: Awake and alert. No obvious cranial nerve deficits. Moving all extremities. PSYCHIATRIC: Appropriate mood and affect; insight and judgment normal. Data Data Last Documented VS Vital Signs Date Time Temp Pulse Resp B/P (MAP) Pulse Ox O2 Delivery O2 Flow Rate FiO2 05/16/17 03:07 110 186/96 (126) 93 Room Air 05/15/17 23:05 25 05/15/17 22:55 98.0 Orders Orders Complete Blood Count With Diff (05/15/17 23:10) Comprehensive Metabolic Panel (05/15/17 23:10) Troponin I (05/15/17 23:10) Electrocardiogram (05/15/17 ) B-Type Natriuretic Peptide (05/15/17 23:10) Chest, Single Ap (05/15/17 ) ^ Insert Iv (05/15/17 23:10) Methylprednisolone So Succ Inj (Solumedr (05/15/17 23:15) Albuterol-Ipratropium Neb (Duoneb Neb) (05/15/17 23:15) D-Dimer (05/15/17 23:11) Ct Pulmonary Angiogram (05/16/17 ) Iohexol 350 Inj (Omnipaque 350 Inj) (05/15/17 22:51) Admit Order (Ed Use Only) (05/16/17 03:26) Prothrombin Time / Inr (Pt) (05/16/17 03:26) Act Partial Throm Time (Ptt) (05/16/17 03:26) Labs Laboratory Tests Test 05/15/17 23:25 05/16/17 00:05 White Blood Count 7.2 TH/MM3 Red Blood Count 4.01 MIL/MM3 Hemoglobin 12.4 GM/DL Hematocrit 37.7 % Mean Corpuscular Volume 94.1 FL Mean Corpuscular Hemoglobin 31.0 PG Mean Corpuscular Hemoglobin Concent 33.0 % Red Cell Distribution Width 16.1 % Platelet Count 232 TH/MM3 Mean Platelet Volume 11.5 FL Neutrophils (%) (Auto) 64.9 % Lymphocytes (%) (Auto) 20.6 % Monocytes (%) (Auto) 11.3 % Eosinophils (%) (Auto) 1.9 % Basophils (%) (Auto) 1.3 % Neutrophils # (Auto) 4.7 TH/MM3 Lymphocytes # (Auto) 1.5 TH/MM3 Monocytes # (Auto) 0.8 TH/MM3 Eosinophils # (Auto) 0.1 TH/MM3 Basophils # (Auto) 0.1 TH/MM3 CBC Comment AUTO DIFF Differential Total Cells Counted 100 Neutrophils % (Manual) 77 % Lymphocytes % 12 % Monocytes % 5 % Eosinophils % 3 % Basophils % 3 % Neutrophils # (Manual) 5.5 TH/MM3 Differential Comment FINAL DIFF MANUAL Platelet Estimate NORMAL Platelet Morphology Comment ENLARGED Ovalocytes 1+ D-Dimer Quantitative (PE/DVT) 2.24 MG/L FEU B-Type Natriuretic Peptide GREATER THAN 5000 PG/ML Blood Urea Nitrogen 54 MG/DL Creatinine 9.14 MG/DL Random Glucose 69 MG/DL Total Protein 7.4 GM/DL Albumin 3.3 GM/DL Calcium Level 8.7 MG/DL Alkaline Phosphatase 99 U/L Aspartate Amino Transf (AST/SGOT) 17 U/L Alanine Aminotransferase (ALT/SGPT) 14 U/L Total Bilirubin 0.4 MG/DL Sodium Level 143 MEQ/L Potassium Level 4.1 MEQ/L Chloride Level 106 MEQ/L Carbon Dioxide Level 29.7 MEQ/L Anion Gap 7 MEQ/L Estimat Glomerular Filtration Rate 7 ML/MIN Troponin I 0.19 NG/ML MDM Medical Decision Making Medical Screen Exam Complete: Yes Emergency Medical Condition: Yes Interpretation(s) Afebrile, tachycardic, hypertensive No leukocytosis BNP is greater than 5000 Troponin is 0.19 which is similar to the patient's baseline Last [address] Angiography 05/16/17 0000 Signed Impressions: Service Date/Time: Tuesday, May 16, 2017 02:28 - CONCLUSION: Large right pleural effusion and compressive collapse and/or consolidation right lung base with a small left pleural effusion. Humberto Roland MD Chest X-Ray 05/15/17 0000 Signed Impressions: Service Date/Time: Monday, May 15, 2017 23:49 - CONCLUSION: Worsening right pleural effusion and consolidation, however overall degree of pulmonary edema has improved. Humberto Roland MD Differential Diagnosis Volume overload, myocardial infarction, congestive heart failure, pleural effusion, pneumonia, pulmonary embolism Narrative Course This is a 61-year-old male who has a history of end-stage renal disease who presents to the emergency department with increasing shortness of breath. He was placed on a monitor and an IV was established. Labs demonstrate an elevated BNP and a chronically elevated troponin. CT pulmonary angiogram was obtained in the setting of an elevated d-dimer. Patient has a large right sided pleural effusion which I suspect is causing his symptoms. I think he benefit from a thoracentesis as he has been compliant with his dialysis and this doesn't seem to be fully addressing his symptoms. Patient will be admitted. Physician Communication Physician Communication Dr. Foster Diagnosis Primary Impression: Pleural effusion Arabella Reddy MD May 16, 2017 04:39
[2017-05-16 06:51] LABS: TROPONIN I 0.17 NG/ML (0.02-0.05)
[2017-05-16] MEDS: INSULIN ASPART SUPPLEMENTAL SCALE SQ SCH ×4 (08:00→21:00)
[2017-05-16] MEDS: FERROUS SULFATE 325 MG (65 MG ELEMENTAL IRON) TAB PO SCH ×2 (08:02→18:04)
[2017-05-16] MEDS: hydrALAZINE HCL 25 MG TAB PO SCH ×2 (08:02→21:54)
[2017-05-16] MEDS: SODIUM CHLORIDE 0.9% FLUSH 10 ML FLUSH IV FLUSH SCH ×2 (08:03→21:57)
[2017-05-16] MEDS: SEVELAMER CARBONATE 800 MG TAB PO SCH ×3 (08:08→18:04)
[2017-05-16] MEDS ORDERED: SODIUM CHLOR 0.9% 1000 ML INJ 1,000 ML IV PRN (09:51)
[2017-05-16] MEDS ORDERED: SODIUM CHLOR 0.9% 1000 ML INJ 1,000 ML OTHER PRN ×2 (09:51)
[2017-05-16] MEDS ORDERED: MANNITOL 12.5 GM/50 ML VIAL IV PRN (10:00)
[2017-05-16] MEDS ORDERED: diphenhydrAMINE HCL 25 MG CAP PO PRN (10:00)
[2017-05-16] MEDS ORDERED: ALBUMIN 25% INJ 100 ML IV PRN (10:00)
[2017-05-16] MEDS ORDERED: HEPARIN SODIUM - IV 10,000 UNITS/10 ML VIAL IV FLUSH PRN (10:00)
[2017-05-16] MEDS ORDERED: GENTAMICIN SULFATE (DIALYSIS USE ONLY) 20 MG/2 ML VIAL OTHER PRN (10:00)
[2017-05-16] MEDS ORDERED: NITROGLYCERIN 0.4 MG SL 25 TABS/BTL SL PRN (10:00)
[2017-05-16] MEDS ORDERED: HEPARIN SODIUM - IV 10,000 UNITS/10 ML VIAL PRN (10:00)
[2017-05-16] MEDS ORDERED: cloNIDine HCL 0.1 MG TAB PO PRN (10:00)
[2017-05-16] MEDS ORDERED: ONDANSETRON HCL 4 MG/2 ML VIAL IV PUSH PRN (10:00)
--- NOTE | 2017-05-16 10:15 | MB ---
cc: ARNOLD CHAMBERS MD DATE OF CONSULTATION 05/16/2017 REASON FOR CONSULTATION End-stage renal disease on hemodialysis came in with fluid overload status. HISTORY OF PRESENT ILLNESS This is a 61-year-old male known to me from before with a past medical history of hypertension, diabetes mellitus, history of drug abuse, hepatitis C, cardiomyopathy with low ejection fraction, end-stage renal disease on hemodialysis three times per week who came to the hospital with a complaint of worsening shortness of breath. I was called to see the patient because of management of dialysis. He has been on hemodialysis Monday, and Monday this week. Then last week he missed dialysis on Monday and then he went there on Monday and he had a short treatment and he cut off the treatment and went home early. According to the patient, he was drinking a lot of lemonade yesterday and the night before and he finished the whole pitcher and he did not realize that he was drinking too much. His girlfriend told him that he drank too much. He denies any chest pain. He has mild cough with no sputum. No history of fever. No nausea or vomiting. PAST MEDICAL HISTORY 1. Hypertension 2. Diabetes mellitus 3. Hepatitis C 4. History of cardiomyopathy 5. End-stage renal disease on hemodialysis 6. Hepatitis C 7. Chronic anemia PAST SURGICAL HISTORY 1. AV Fistula surgery 2. Heart catheterization in 2012 3. Scrotal surgery REVIEW OF SYSTEMS Denies any history of fever. No headache or dizziness. He has worsening shortness breath more with exertion. He has cough which is mainly dry. No chest pain. No palpitation. No nausea or vomiting. No abdominal pain. No history of diarrhea. SOCIAL HISTORY The patient is single. He lives with his girlfriend. He smokes about two to three cigarettes per day. He has a past history of drug abuse. FAMILY HISTORY Noncontributory ALLERGIES HE IS ALLERGIC TO SULFA AND IBUPROFEN. MEDICATIONS Currently on following medications: 1. Hydralazine 25 mg b.i.d. 2. Ferrous sulfate 325 mg b.i.d. 3. Insulin aspart sliding scale 4. Renvela 1.6 grams t.i.d. 5. Zofran as needed 6. Dulcolax as needed EXAMINATION The patient is awake and alert. He is not in acute distress. VITAL SIGNS: His last blood pressure is 163/101, temperature is 97, oxygen saturation 97-98%. HEAD, EYES, EARS, NOSE, AND THROAT: Pupils are mid constricted. Nonicteric sclera, conjunctiva normal. NECK: Supple. JVD slightly elevated. LUNGS: The patient has bilateral decreased air entry with basilar rales and scattered wheezing. HEART: S1 and S2 regular rhythm. ABDOMEN: Soft and lax. There is no tenderness. EXTREMITIES: He has mild edema in the legs. INVESTIGATIONS WBC count is 7.2, hemoglobin 12.4, platelet count of 232, neutrophils 64.9%. Sodium 143, potassium 4.1, chloride 106, bicarb 29.7, BUN 54, creatinine 9.1. Troponin-I 0.17, albumin 3.3, total protein 7.4, BNP is greater than 5000, INR is 1.2. IMAGING STUDIES The patient has chest x-ray done which shows worsening right pleural effusion and consolidation. CTA was done which was negative for pulmonary embolism and showed large right pleural effusion. ASSESSMENT/PLAN 1. End-stage renal disease on hemodialysis three times per week. 2. Fluid overload status with pleural effusion. 3. Hypertension 4. History of diabetes mellitus. 5. Mild anemia 6. History of noncompliance. The patient has a history of noncompliance with the fluid. I discussed with him and told him to restrict the fluid intake. He is currently on dialysis trying to remove three liters. His breathing is already improving. The blood pressure is on the higher side, but it should improve with the fluid removal and needs to be followed up. He is restarted on his regular medications. Thank you for the consultation. I will follow the patient while he is in the hospital. MD COLEMAN Nascimento/DELTA /9:32 AM /9:48 AM
[2017-05-16] MEDS: GELATIN 12 MM/7 MM FOAM TOP PRN (10:48)
[2017-05-16] MEDS ORDERED: LIDOCAINE HCL 1% 20 ML VIAL ONE (14:15)
--- NOTE | 2017-05-16 15:46 | RADRPT ---
EXAM DATE/TIME: 05/16/2017 14:19 [facility] COMPARISON: No previous studies available for comparison. INDICATIONS : Right pleural effusion. MEDICAL HISTORY : Hypercholesterolemia. Hypertension. Hepatitis C. CVA. Cardiac disorders. MS. CAD. Diabetic. Cady l failure. Dialysis. MRSA. Acinetobacter. SURGICAL HISTORY : Left arm AV fistula. ENCOUNTER: Initial ACUITY: 1 day PAIN SCORE: 3/10 LOCATION: Right chest. FLUID: Total volume of 1500 cc of tiffany fluid was removed. Fluid was sent to lab for ordered studies. TECHNIQUE: 1. Ultrasound guidance for thoracentesis. 2. Thoracentesis. The risks, benefits, and alternatives to ultrasound guided thoracentesis were explained to the patien t in lay simple terms, including the risk of bleeding and infection. Written and verbal informed con sent was obtained. Appropriate area for thoracentesis was marked under ultrasound guidance with the patient in the uprig ht position. Overlying skin was prepped and draped in the usual sterile fashion and with local anest hetic, a dermatotomy was made with an 11 blade scalpel. A 6 [place] thoracentesis catheter was placed in the pleural space and fluid was removed. Catheter was then removed and a sterile dressing applie d. There were no immediate complications. The patient tolerated the procedure well and the left the ultrasound suite in stable condition. Chest radiograph is to be obtained. CONCLUSION: Uncomplicated ultrasound guided thoracentesis. Mckay Marques MD on May 16, 2017 at 15:44 Board Certified Radiologist. This report was verified electronically.
--- NOTE | 2017-05-16 16:17 | RADRPT ---
EXAM DATE/TIME: 05/16/2017 15:25 [facility] COMPARISON: No previous studies available for comparison. INDICATIONS : Post right sided thoracentesis. MEDICAL HISTORY : Cardiovascular disease. Hypertension. Renal disease, end stage.Dialysis Hep SURGICAL HISTORY : AV Shunt. ENCOUNTER: Subsequent ACUITY: 2 days PAIN SCORE: 0/10 LOCATION: Bilateral chest FINDINGS: A single frontal expiratory view of the chest was performed. The lungs are symmetrically aerated and clear. No evidence of pneumothorax. Mediastinal structures are in the midline. Heart is mildly enlarged. CONCLUSION: No evidence of pneumothorax following right-sided thoracentesis. Moderate cardiomegaly without significant congestion or acute air space disease. Mckay Marques MD on May 16, 2017 at 16:15 Board Certified Radiologist. This report was verified electronically.
[2017-05-16 16:37] LABS: PLEURAL FLUID BASO 1 %; PLEURAL FLUID EOS 1 %; PLEURAL FLUID LYMPHS 69 %; PLEURAL FLUID MESOTHELIAL 9 %; PLEURAL FLUID MONOS 5 %; PLEURAL FLUID POLYS (SEGS) 15 %
[2017-05-16 16:40] LABS: PLEURAL FLUID RBC 3693 /MM3 (0-0); PLEURAL FLUID WBC 70 /MM3 (0-10)
--- NOTE | 2017-05-16 17:25 | EKG ---
Date Performed: 05/16/2017 Time Performed: 06:09:58 PTAGE: 61 years EKG: Sinus tachycardia Left ventricular hypertrophy Anterolateral ST-T changes may be due to hyp ertrophy and/or ischemia Baseline artifact Abnormal ECG Since PREVIOUS TRACING , no significant change noted PREVIOUS TRACING DOCTOR: Rose Batista Interpretating Date/Time 05/16/2017 17:23:52
--- NOTE | 2017-05-16 17:25 | EKG ---
Date Performed: 05/16/2017 Time Performed: 00:53:20 PTAGE: 61 years EKG: SINUS TACHYCARDIA POSSIBLE LEFT ATRIAL ENLARGEMENT LEFT VENTRICULAR HYPERTROPHY AND ST-T CH GRACIE POSSIBLE SEPTAL MYOCARDIAL INFARCTION ABNORMAL ECG Compared to PREVIOUS TRACING , the patient is now tachycardic. PREVIOUS TRACIN07/25/2016 19.30 DOCTOR: Rose Batista Interpretating Date/Time 05/16/2017 17:23:17
[2017-05-16 21:19] LABS: TROPONIN I 0.15 NG/ML (0.02-0.05)
[2017-05-17] VITALS (10 sets, daily range): BP systolic 123–155; BP diastolic 66–80; PULSE 97–112; RESP 17–20; TEMP 95.4–99.5; O2SAT 96–100
[2017-05-17] MEDS: INSULIN ASPART SUPPLEMENTAL SCALE SQ SCH ×4 (08:00→20:40)
[2017-05-17] MEDS: hydrALAZINE HCL 25 MG TAB PO SCH ×2 (08:39→20:30)
[2017-05-17] MEDS: SODIUM CHLORIDE 0.9% FLUSH 10 ML FLUSH IV FLUSH SCH ×2 (08:40→20:31)
[2017-05-17] MEDS: FERROUS SULFATE 325 MG (65 MG ELEMENTAL IRON) TAB PO SCH ×2 (08:40→17:35)
[2017-05-17] MEDS: SEVELAMER CARBONATE 800 MG TAB PO SCH ×3 (08:40→17:35)
[2017-05-17 15:07] LABS: AUTOMATED NEUTROPHIL # 3.3 TH/MM3 (1.8-7.7); BASOPHIL % 0.8 % (0.0-2.0); EOSINOPHIL # 0.1 TH/MM3 (0-0.4); EOSINOPHIL % 1.1 % (0.0-4.0); HEMATOCRIT 34.4 % (39.0-51.0); LYMPH % 19.5 % (9.0-44.0); LYMPHOCYTE # 0.9 TH/MM3 (1.0-4.8); MEAN CELL VOLUME 92.6 FL (80.0-100.0); MEAN CORPUSCULAR HEMOGLOBIN 29.8 PG (27.0-34.0); MEAN CORPUSCULAR HGB CONC 32.1 % (32.0-36.0); MEAN PLATELET VOLUME 10.9 FL (7.0-11.0); MONO % 9.7 % (0.0-8.0); MONOCYTE # 0.5 TH/MM3 (0-0.9); NEUT % 68.9 % (16.0-70.0); PLATELET COUNT 119 TH/MM3 (150-450); RED BLOOD COUNT 3.71 MIL/MM3 (4.50-5.90); RED CELL DISTRIBUTION WIDTH 15.8 % (11.6-17.2); WHITE BLOOD COUNT 4.8 TH/MM3 (4.0-11.0)
[2017-05-17 15:40] LABS: ALBUMIN 3.2 GM/DL (3.4-5.0); ALKALINE PHOSPHATASE 100 U/L (45-117); ALT (GPT) 16 U/L (12-78); AST (GOT) 21 U/L (15-37); BICARBONATE 29.3 MEQ/L (21.0-32.0); BLOOD UREA NITROGEN 56 MG/DL (7-18); CHLORIDE 98 MEQ/L (98-107); CREATININE 8.74 MG/DL (0.60-1.30); GLOMERULAR FILTRATION RATE 8 ML/MIN (>89); GLUCOSE,RANDOM 78 MG/DL (74-106); SODIUM (NA) 137 MEQ/L (136-145); TOTAL BILIRUBIN ADULT 0.3 MG/DL (0.2-1.0); TOTAL PROTEIN 7.2 GM/DL (6.4-8.2)
--- NOTE | 2017-05-17 16:51 | HHI.PR ---
Subjective Remarks patient reported no chest pain no fever Resting in bed comfortably Objective Vitals Vital Signs Date Time Temp Pulse Resp B/P (MAP) Pulse Ox O2 Delivery O2 Flow Rate FiO2 05/17/17 12:00 97.5 112 18 145/80 (101) 99 05/17/17 09:59 96 05/17/17 08:00 95.6 97 17 134/75 (94) 96 05/17/17 04:46 97.7 105 20 123/66 (85) 99 05/17/17 04:00 101 05/17/17 00:00 104 05/17/17 00:00 99.5 101 20 134/77 (96) 100 05/16/17 20:39 97.2 104 20 144/67 (92) 100 05/16/17 20:17 95 21 05/16/17 17:07 104 134/62 (86) I/O 05/16/17 05/16/17 05/16/17 05/17/17 05/17/17 05/17/17 07:00 15:00 23:00 07:00 15:00 23:00 Intake Total 0 ml 220 ml 480 ml Output Total 3000 ml Balance -3000 ml 220 ml 480 ml Intake Oral 0 ml 220 ml 480 ml Output Hemodialysis 3000 ml # Voids 1 2 # Bowel Movements 0 Result Diagram: 05/17/17 1325 05/17/17 1325 Objective Remarks GENERAL: This is a well-nourished, well-developed patient, in no apparent distress. SKIN: No rashes, warm and dry HEAD: Atraumatic. Normocephalic. EYES: Pupils equal round and reactive. Extraocular motions intact. No scleral icterus. ENT: Nose without bleeding, or drainage, Airway patent. NECK: Trachea midline. Supple CARDIOVASCULAR: Regular rate and rhythm without murmurs, gallops, or rubs. RESPIRATORY: Fair air entry bilaterally. No wheezes, rales, or rhonchi. GASTROINTESTINAL: Abdomen soft, non-tender, nondistended. Positive bowel sounds MUSCULOSKELETAL: Extremities without clubbing, cyanosis, or edema. Pedal pulses appreciated NEUROLOGICAL: Awake and alert. Moves all extremity. Normal speech.no focal neurological deficit A/P Assessment and Plan 05/17: Continue monitoring BMP BMP, appreciate nephrology consultation, status post thoracentesis, fluid sent for analysis, LDH in the pleural fluid 65, in the serum 202, mostly transudate, no protein has been checked in the pleural fluid, santiago on hemodialysis SHANDRA 1. Large right-sided pleural effusion Status post thoracentesis 2. ESRD on HD Last dialysis Monday [employer] is Dr. Peck Cr 9.14, K 4.1 Nephrology consulted, appreciate assistance 3. CHF Last echo showed EF of 25-30% BNP greater than 5000 Patient oliguric Monitor for signs of volume overload 4. DM SSI Monitor blood glucose 5. HTN Continue home hydralazine FEN NPO Electrolytes: monitor Holding pharmacologic anticoagulation for possible pleurocentesis Zafar Mejias MD May 17, 2017 16:51
--- NOTE | 2017-05-17 17:39 | HHI.NPPN ---
Subjective History of Present Illness 61-year-old male known to me from before with a past medical history of hypertension, diabetes mellitus, history of drug abuse, hepatitis C, cardiomyopathy with low ejection fraction, end-stage renal disease on hemodialysis three times per week who came to the hospital with a complaint of worsening shortness of breath. I was called to see the patient because of management of dialysis. He has been on hemodialysis Monday, and Monday. Additional Remarks Patient is alert, feeding better, breathing improved after the Thoracentesis. Review of Systems General Constitutional: Fatigue Respiratory Lungs: SOB Cardiovascular Cardiac: Edema, [place] Objective Data Data Vital Signs Date Time Temp Pulse Resp B/P (MAP) Pulse Ox O2 Delivery O2 Flow Rate FiO2 05/17/17 17:22 99 21 05/17/17 16:00 95.4 97 17 140/74 (96) 100 05/17/17 12:00 97.5 112 18 145/80 (101) 99 05/17/17 09:59 96 05/17/17 08:00 95.6 97 17 134/75 (94) 96 05/17/17 04:46 97.7 105 20 123/66 (85) 99 05/17/17 04:00 101 05/17/17 00:00 104 05/17/17 00:00 99.5 101 20 134/77 (96) 100 05/16/17 20:39 97.2 104 20 144/67 (92) 100 05/16/17 20:17 95 21 -: 05/17/17 1325 05/17/17 1325 Physical Exam General Appearance: No Acute Distress, Comfortable Eyes Eye Exam: Pupils Equal Throat Throat Exam: Oral Mucosa [place] & Moist Pulmonary Resp Exam: No Distress, Crackles, Rhonchi, Decreased Bases, Diminished Breath Sounds Cardiology CV Exam: Regular, Normal Sinus Rhythm Gastrointestinal/Abdomen GI Exam: Soft, Non-Tender, Bowel Sounds Present Extremeties Extremities Exam: Trace Edema Neurologic Neuro Exam: Alert, Awake, Oriented Psychiatric Psych Exam: Appropriate Responses Assessment/Plan Assessment Summary: Anemia of CKD, Fluid/Volume Overload, Hypertension, End Stage Renal Disease Problem List: (1) Hypertension ICD Codes: I10 - Hypertension Status: Chronic (2) CHF (congestive heart failure) ICD Codes: I50.9 - CHF (congestive heart failure) Status: Acute (3) Shortness of breath ICD Codes: R06.02 - Shortness of breath Status: Acute (4) DM (diabetes mellitus) ICD Codes: E11.9 - Type 2 diabetes mellitus without complications Status: Chronic (5) Pleural effusion ICD Codes: J90 - Pleural effusion, not elsewhere classified Status: Acute (6) ESRD on dialysis ICD Codes: N18.6 - End stage renal failure on dialysis; Z99.2 - Dependence on renal dialysis Status: Chronic Plan Patient has HD done yesterday. Now breathing is better after Thoracentesis. BP is stable. HD will be in AM. Told to restrict fluid intake. Severo Pcek MD May 17, 2017 17:39
[2017-05-17] MEDS ORDERED: traMADol HCL 50 MG TAB PO ONE (22:45)
[2017-05-18] VITALS (8 sets, daily range): BP systolic 119–142; BP diastolic 56–77; PULSE 91–103; RESP 16–18; TEMP 96.2–98.5; O2SAT 92–99
[2017-05-18 05:22] LABS: BICARBONATE 28.2 MEQ/L (21.0-32.0); CALCIUM 8.6 MG/DL (8.5-10.1); CREATININE 9.83 MG/DL (0.60-1.30)
[2017-05-18] MEDS: INSULIN ASPART SUPPLEMENTAL SCALE SQ SCH ×4 (08:00→20:47)
[2017-05-18] MEDS: hydrALAZINE HCL 25 MG TAB PO SCH ×2 (08:32→20:34)
[2017-05-18] MEDS: FERROUS SULFATE 325 MG (65 MG ELEMENTAL IRON) TAB PO SCH ×2 (08:32→18:00)
[2017-05-18] MEDS: SEVELAMER CARBONATE 800 MG TAB PO SCH ×3 (08:32→18:00)
[2017-05-18] MEDS: GELATIN 12 MM/7 MM FOAM TOP PRN (08:47)
[2017-05-18] MEDS: SODIUM CHLORIDE 0.9% FLUSH 10 ML FLUSH IV FLUSH SCH ×2 (09:00→20:38)
--- NOTE | 2017-05-18 12:30 | HHI.PR ---
Subjective Remarks patient in hemodialysis, stable resting comfortably, afebrile denied chest pain or short of breath Objective Vitals Vital Signs Date Time Temp Pulse Resp B/P (MAP) Pulse Ox O2 Delivery O2 Flow Rate FiO2 05/18/17 08:00 97.1 96 16 137/69 (91) 92 05/18/17 04:00 96.2 95 18 137/68 (91) 98 05/18/17 00:00 96.2 98 18 134/68 (90) 97 05/17/17 20:02 97 05/17/17 20:00 96.3 98 18 155/76 (102) 99 05/17/17 17:22 99 21 05/17/17 16:00 95.4 97 17 140/74 (96) 100 I/O 05/17/17 05/17/17 05/17/17 05/18/17 05/18/17 05/18/17 07:00 15:00 23:00 07:00 15:00 23:00 Intake Total 480 ml 800 ml 480 ml Output Total 5500 ml Balance 480 ml 800 ml 480 ml -5500 ml Intake Oral 480 ml 800 ml 480 ml Output Hemodialysis 5500 ml # Voids 2 0 1 # Bowel Movements 0 1 Result Diagram: 05/17/17 1325 05/18/17 0352 Objective Remarks GENERAL: This is a well-nourished, well-developed patient, in no apparent distress. SKIN: No rashes, warm and dry HEAD: Atraumatic. Normocephalic. EYES: Pupils equal round and reactive. Extraocular motions intact. No scleral icterus. ENT: Nose without bleeding, or drainage, Airway patent. NECK: Trachea midline. Supple CARDIOVASCULAR: Regular rate and rhythm without murmurs, gallops, or rubs. RESPIRATORY: Fair air entry bilaterally. No wheezes, rales, or rhonchi. GASTROINTESTINAL: Abdomen soft, non-tender, nondistended. Positive bowel sounds MUSCULOSKELETAL: Extremities without clubbing, cyanosis, or edema. Pedal pulses appreciated NEUROLOGICAL: Awake and alert. Moves all extremity. Normal speech.no focal neurological deficit A/P Assessment and Plan 05/18: In hemodialysis, BMP dropped from 5000 [id number], creatinine today is 9.83 patient in hemodialysis, fluid restriction per nephrology, Continue monitoring BMP BMP, appreciate nephrology consultation, status post thoracentesis, fluid sent for analysis, LDH in the pleural fluid 65, in the serum 202, mostly transudate, no protein has been checked in the pleural fluid, santiago on hemodialysis SHANDRA 1. Large right-sided pleural effusion Status post thoracentesis 2. ESRD on HD Last dialysis Monday Patient [employer] is Dr. Peck Cr 9.14, K 4.1 Nephrology consulted, appreciate assistance 3. CHF Last echo showed EF of 25-30% BNP greater than 5000 Patient oliguric Monitor for signs of volume overload 4. DM SSI Monitor blood glucose 5. HTN Continue home hydralazine FEN NPO Electrolytes: monitor Holding pharmacologic anticoagulation for possible pleurocentesis Zafar Mejias MD May 18, 2017 12:30
--- NOTE | 2017-05-18 16:44 | HHI.NPPN ---
Subjective History of Present Illness 61-year-old male known to me from before with a past medical history of hypertension, diabetes mellitus, history of drug abuse, hepatitis C, cardiomyopathy with low ejection fraction, end-stage renal disease on hemodialysis three times per week who came to the hospital with a complaint of worsening shortness of breath. I was called to see the patient because of management of dialysis. He has been on hemodialysis Monday, and Monday. Additional Remarks Patient is alert, feeding better, seen after HD, breathing is much better. Review of Systems General Constitutional: Fatigue Respiratory Lungs: SOB Cardiovascular Cardiac: Edema, [place] Objective Data Data 05/18/17 05/19/17 19:00 07:00 Output Total 5500 ml Balance -5500 ml Output Hemodialysis 5500 ml Vital Signs Date Time Temp Pulse Resp B/P (MAP) Pulse Ox O2 Delivery O2 Flow Rate FiO2 05/18/17 13:03 96.7 99 17 138/76 (96) 96 05/18/17 08:00 97.1 96 16 137/69 (91) 92 05/18/17 04:00 96.2 95 18 137/68 (91) 98 05/18/17 00:00 96.2 98 18 134/68 (90) 97 05/17/17 20:02 97 05/17/17 20:00 96.3 98 18 155/76 (102) 99 05/17/17 17:22 99 21 -: 05/17/17 1325 05/18/17 0352 Physical Exam General Appearance: No Acute Distress, Comfortable Eyes Eye Exam: Pupils Equal Throat Throat Exam: Oral Mucosa [place] & Moist Pulmonary Resp Exam: No Distress, Crackles, Rhonchi, Decreased Bases, Diminished Breath Sounds Cardiology CV Exam: Regular, Normal Sinus Rhythm Gastrointestinal/Abdomen GI Exam: Soft, Non-Tender, Bowel Sounds Present Extremeties Extremities Exam: Trace Edema Neurologic Neuro Exam: Alert, Awake, Oriented Psychiatric Psych Exam: Appropriate Responses Assessment/Plan Assessment Summary: Anemia of CKD, Fluid/Volume Overload, Hypertension, End Stage Renal Disease Problem List: (1) Hypertension ICD Codes: I10 - Hypertension Status: Chronic (2) CHF (congestive heart failure) ICD Codes: I50.9 - CHF (congestive heart failure) Status: Acute (3) Shortness of breath ICD Codes: R06.02 - Shortness of breath Status: Acute (4) DM (diabetes mellitus) ICD Codes: E11.9 - Type 2 diabetes mellitus without complications Status: Chronic (5) Pleural effusion ICD Codes: J90 - Pleural effusion, not elsewhere classified Status: Acute (6) ESRD on dialysis ICD Codes: N18.6 - End stage renal failure on dialysis; Z99.2 - Dependence on renal dialysis Status: Chronic Plan Patient has HD done yesterday. Now breathing is better after Thoracentesis. BP is stable. Told to restrict fluid intake, explain to the patient again. HD done and 5.5 liters removed. Can be discharged from Nephrology. Severo Peck MD May 18, 2017 16:44
[2017-05-19 04:00] VITALS: BP 145/81; PULSE 104; RESP 18; TEMP 96.8; O2SAT 97
--- NOTE | 2017-05-19 07:34 | HHI.NPPN ---
Subjective History of Present Illness 61-year-old male known to me from before with a past medical history of hypertension, diabetes mellitus, history of drug abuse, hepatitis C, cardiomyopathy with low ejection fraction, end-stage renal disease on hemodialysis three times per week who came to the hospital with a complaint of worsening shortness of breath. I was called to see the patient because of management of dialysis. He has been on hemodialysis Monday, and Monday. Additional Remarks Patient is alert, feeding better, asking for more food. Review of Systems General Constitutional: Fatigue Respiratory Lungs: SOB Cardiovascular Cardiac: Edema, [place] Objective Data Data Vital Signs Date Time Temp Pulse Resp B/P (MAP) Pulse Ox O2 Delivery O2 Flow Rate FiO2 05/19/17 04:00 96.8 104 18 145/81 (102) 97 05/18/17 23:49 98.5 102 18 123/69 (87) 98 05/18/17 20:21 95 05/18/17 20:00 103 05/18/17 20:00 98.4 91 18 142/77 (98) 99 05/18/17 16:00 97.2 100 16 119/56 (77) 93 05/18/17 13:03 96.7 99 17 138/76 (96) 96 05/18/17 08:00 100 05/18/17 08:00 97.1 96 16 137/69 (91) 92 -: 05/17/17 1325 05/18/17 0352 Physical Exam General Appearance: No Acute Distress, Comfortable Eyes Eye Exam: Pupils Equal Throat Throat Exam: Oral Mucosa [place] & Moist Pulmonary Resp Exam: No Distress, Crackles, Rhonchi, Decreased Bases, Diminished Breath Sounds Cardiology CV Exam: Regular, Normal Sinus Rhythm Gastrointestinal/Abdomen GI Exam: Soft, Non-Tender, Bowel Sounds Present Extremeties Extremities Exam: Trace Edema Neurologic Neuro Exam: Alert, Awake, Oriented Psychiatric Psych Exam: Appropriate Responses Assessment/Plan Assessment Summary: Anemia of CKD, Fluid/Volume Overload, Hypertension, End Stage Renal Disease Problem List: (1) Hypertension ICD Codes: I10 - Hypertension Status: Chronic (2) CHF (congestive heart failure) ICD Codes: I50.9 - CHF (congestive heart failure) Status: Acute (3) Shortness of breath ICD Codes: R06.02 - Shortness of breath Status: Acute (4) DM (diabetes mellitus) ICD Codes: E11.9 - Type 2 diabetes mellitus without complications Status: Chronic (5) Pleural effusion ICD Codes: J90 - Pleural effusion, not elsewhere classified Status: Acute (6) ESRD on dialysis ICD Codes: N18.6 - End stage renal failure on dialysis; Z99.2 - Dependence on renal dialysis Status: Chronic Plan Patient has HD done yesterday. Now breathing is better after Thoracentesis. BP is stable. Told to restrict fluid intake, explain to the patient again. HD done yesterday and 5.5 liters removed. Can be discharged from Nephrology. Continue HD, MWF. Severo Peck MD May 19, 2017 07:34
[2017-05-19 08:00] VITALS: BP 146/80; PULSE 108; RESP 17; TEMP 96.1; O2SAT 97
[2017-05-19 08:26] LABS: BICARBONATE 27.8 MEQ/L (21.0-32.0); CALCIUM 9.1 MG/DL (8.5-10.1); CREATININE 7.91 MG/DL (0.60-1.30)
[2017-05-19] MEDS: SEVELAMER CARBONATE 800 MG TAB PO SCH (08:35)
[2017-05-19] MEDS: hydrALAZINE HCL 25 MG TAB PO SCH (08:35)
[2017-05-19] MEDS: FERROUS SULFATE 325 MG (65 MG ELEMENTAL IRON) TAB PO SCH (08:35)
[2017-05-19] MEDS: INSULIN ASPART SUPPLEMENTAL SCALE SQ SCH (08:36)
[2017-05-19] MEDS: SODIUM CHLORIDE 0.9% FLUSH 10 ML FLUSH IV FLUSH SCH (08:36)
--- NOTE | 2017-05-19 09:15 | HHI.DS ---
Discharge Summary Admission Date May 16, 2017 at 03:38 Discharge Date: May 19, 2017 Admitting Diagnosis pleural effusion (1) ESRD on dialysis ICD Code: N18.6 - End stage renal failure on dialysis; Z99.2 - Dependence on renal dialysis Status: Chronic (2) Pleural effusion ICD Code: J90 - Pleural effusion, not elsewhere classified Status: Acute Procedures thoracentesis Brief History - From Admission 61-year-old male with a past medical history significant for ESRD on HD, hypertension, diabetes mellitus, polysubstance abuse, hepatitis C, MD in May secondary to hyperkalemia and CHF with an EF of 25-30% presents to the emergency department with a 2 day history of increasing shortness of breath. The patient reports that he has had a nonproductive cough with intermittent wheezes that has been steadily worsening. CTA shows large right pleural effusion. Laboratory values significant for a creatinine of 9.4, troponin is 0.19 and a BNP greater than 5000. CBC/BMP: 05/17/17 1325 05/19/17 0705 Significant Findings Laboratory Tests Test 05/16/17 15:10 05/16/17 20:21 05/17/17 13:25 05/18/17 03:52 Pleural Fluid WBC 70 /MM3 (0-10) Pleural Fluid RBC 3693 /MM3 (0-0) Troponin I 0.15 NG/ML (0.02-0.05) Red Blood Count 3.71 MIL/MM3 (4.50-5.90) Hemoglobin 11.0 GM/DL (13.0-17.0) Hematocrit 34.4 % (39.0-51.0) Platelet Count 119 TH/MM3 (150-450) Monocytes (%) (Auto) 9.7 % (0.0-8.0) Lymphocytes # (Auto) 0.9 TH/MM3 (1.0-4.8) Blood Urea Nitrogen 56 MG/DL (7-18) 68 MG/DL (7-18) Creatinine 8.74 MG/DL (0.60-1.30) 9.83 MG/DL (0.60-1.30) Albumin 3.2 GM/DL (3.4-5.0) Estimat Glomerular Filtration Rate 8 ML/MIN (>89) 7 ML/MIN (>89) Random Glucose 126 MG/DL (74-106) B-Type Natriuretic Peptide 3248 PG/ML (0-100) Test 05/19/17 07:05 Blood Urea Nitrogen 52 MG/DL (7-18) Creatinine 7.91 MG/DL (0.60-1.30) Estimat Glomerular Filtration Rate 8 ML/MIN (>89) B-Type Natriuretic Peptide 3194 PG/ML (0-100) Imaging Last Impressions Thoracentesis Ultrasound 05/16/17 0000 Signed Impressions: Service Date/Time: Tuesday, May 16, 2017 14:19 - CONCLUSION: Uncomplicated ultrasound guided thoracentesis. Mckay Marques MD Chest X-Ray 05/16/17 0000 Signed Impressions: Service Date/Time: Tuesday, May 16, 2017 15:25 - CONCLUSION: No evidence of pneumothorax following right-sided thoracentesis. Moderate cardiomegaly without significant congestion or acute air space disease. Mckay Marques MD CT Angiography 05/16/17 0000 Signed Impressions: Service Date/Time: Tuesday, May 16, 2017 02:28 - CONCLUSION: Large right pleural effusion and compressive collapse and/or consolidation right lung base with a small left pleural effusion. Humberto Roland MD PE at Discharge GENERAL: This is a well-nourished, well-developed patient, in no apparent distress. SKIN: No rashes, warm and dry HEAD: Atraumatic. Normocephalic. EYES: Pupils equal round and reactive. Extraocular motions intact. No scleral icterus. ENT: Nose without bleeding, or drainage, Airway patent. NECK: Trachea midline. Supple CARDIOVASCULAR: Regular rate and rhythm without murmurs, gallops, or rubs. RESPIRATORY: Fair air entry bilaterally. No wheezes, rales, or rhonchi. GASTROINTESTINAL: Abdomen soft, non-tender, nondistended. Positive bowel sounds MUSCULOSKELETAL: Extremities without clubbing, cyanosis, or edema. Pedal pulses appreciated NEUROLOGICAL: Awake and alert. Moves all extremity. Normal speech.no focal neurological deficit Pt update on day of discharge Pt feeling much better. Denies any SOB at this time or cough. Would like to be discharged today. No nausea or vomiting. Appetite is good. No CP Hospital Course Pt presented to the emergency department with a 2 day history of increasing shortness of breath. Per records, he missed dialysis on Monday and then he went there on Monday and he had a short treatment and he cut off the treatment and went home early. Apparently he also was drinking a lot of lemonade the day prior to arrival and the night before and finished the whole pitcher and he did not realize that he was drinking too much. Pt was found to have a large pleural effusion which was drained via thoracentesis. Pt received dialysis while in the hospital. Pt is now feeling much better. He states he has all his meds. States he has an appt for HD tomorrow around 3pm. Discussed w nephrology and pt can be discharged from his standpoint. Fluid cx neg x 48 hrs. Pt to be on fluid restrictions as recommended as an outpatient and be compliant w HD. Pt Condition on Discharge: Stable Discharge Disposition: Discharge Home Discharge Time: > 30 minutes Discharge Instructions DIET: Follow Instructions for: Renal Failure Diet Fluid Restrictions: 1500 ml/day Follow up Referrals: Nephrology - 05/20/17 PCP Follow-up Continued Medications: Aspirin DR (Aspirin Adult Low Strength) 81 Mg Tabdr 81 MG PO DAILY, TAB Ferrous Sulfate (Ferrous Sulfate) 325 Mg (65 Mg Iron) Tablet 324 MG PO BIDPC for Nutritional Supplement, #60 TAB 0 Refills Hydralazine HCl (Hydralazine HCl) 25 Mg Tablet 25 MG PO BID for Blood Pressure Management, #60 TAB 0 Refills Sevelamer Carbonate (Renvela) 800 Mg Tab 1600 MG PO TID for Control phosphorous levels, TAB 0 Refills Discontinued Medications: Benzonatate (Benzonatate) 100 Mg Cap 100 MG PO TID PRN for COUGH, CAP 0 Refills Clemencia Cartwright MD May 19, 2017 09:15
[2017-05-19 09:47] VITALS: O2SAT 97
--- NOTE | 2017-05-19 11:43 | HHI.PR ---
Addendum to Inpatient Note Addendum Reason: Additional Documentation Additional Information Prior to discharge, pt complained of SOB and requested an oxygen tank for discharge. I went to see pt, states he wants one now. I explained to him that we need to do a walk test since he is satting 97% this morning and had no complaints. Pt refused to do walk test and stated that [facility] RN did do a quit pulse ox check while pt was agitated and was 88% however pt demanded to leave now. Pt states that we cannot help him here and [facility]. Pt walked out and started yelling at his girlfriend. I held discharge and tried again to explain to the patient the importance of the walk test. Then pt came back, stated he would do walk test. I went to speak w CM to see if they can help us speed the process up to get him the oxygen tank which they said they needed an official walk test in order to [facility] the [facility] and when the RN and I went to speak w the patient, he chose to leave again. Security did accompany patient out from. Pt refused to sign any AMA paperwork prior to leaving. Clemencia Cartwright MD May 19, 2017 11:43
== END 2017-05-19 11:35 | disposition left against medical advice (07) | DRG 291 ==
LOC: NEPC 22:50 → NEDA 05-16 03:28 → OBSVTOIN 05-16 03:38 → N07A 05-16 04:44
PROVIDERS: ADMIT Hospitalist; ATTEND Hospitalist
PROC: 0W993ZZ Drainage of Right Pleural Cavity, Percutaneous Approach (ICD-10-PCS; principal; 2017-05-16)
PROC: 5A1D70Z Performance of Urinary Filtration, Intermittent, Less than 6 Hours Per Day (ICD-10-PCS; 2017-05-16)
PROC: 5A1D70Z Performance of Urinary Filtration, Intermittent, Less than 6 Hours Per Day (ICD-10-PCS; 2017-05-18)
DX: I13.2 Hypertensive heart and chronic kidney disease with heart failure and with stage 5 chronic kidney disease, or end stage renal disease (principal); N18.6 End stage renal disease; J91.8 Pleural effusion in other conditions classified elsewhere; E11.22 Type 2 diabetes mellitus with diabetic chronic kidney disease; I50.9 Heart failure, unspecified; I25.10 Atherosclerotic heart disease of native coronary artery without angina pectoris; I25.2 Old myocardial infarction; R74.8 Abnormal levels of other serum enzymes; D63.1 Anemia in chronic kidney disease; I42.9 Cardiomyopathy, unspecified; B19.20 Unspecified viral hepatitis C without hepatic coma; F17.210 Nicotine dependence, cigarettes, uncomplicated; F14.10 Cocaine abuse, uncomplicated; F43.10 Post-traumatic stress disorder, unspecified; Z86.14 Personal history of Methicillin resistant Staphylococcus aureus infection; Z86.73 Personal history of transient ischemic attack (TIA), and cerebral infarction without residual deficits; Z88.2 Allergy status to sulfonamides; Z91.15 Patient's noncompliance with renal dialysis; Z91.19 Patient's noncompliance with other medical treatment and regimen; Z99.2 Dependence on renal dialysis
CPT/HCPCS: 32555; 71010; 71275; 80048; 80053; 82550; 82948; 83615; 83880; 84484; 85007; 85025; 85027; 85379; 85610; 85730; 87070; 87205; 87640; 87641; 88112; 88305; 89051; 90935; 93005; 94640; 94664; 96374; C1729; J1815; J2930; J7030; Q9967

== ENCOUNTER 2017-07-17 20:12 | Inpatient (IN) | payer OTHER ==
[~2017-07-17] VITALS: Ht 172.7 cm; Wt 62.3 kg
[~2017-07-17 20:12] MED LIST changes: +AMOX875T PO; -CEPH-460 PO; -ERYTOIN10 RIGHT EYE; +FERR325T18 PO; +HYDR-3799 PO; -METO100T PO
[2017-07-17 20:20] VITALS: BP 154/84; PULSE 101; RESP 20; TEMP 98.1
[2017-07-17] MEDS ORDERED: SODIUM CHLORIDE 0.9% FLUSH 10 ML FLUSH IVF PRN (20:45)
--- NOTE | 2017-07-17 20:48 | PD ---
HPI Chief Complaint: Neuro Symptoms/ Deficits Time Seen by Provider: 20:38 Travel History International Travel<30 days: No Contact w/Intl Traveler<30days: No Traveled to known affect area: No History of Present Illness HPI 61-year-old male with ESRD on HD (,,), here with his for evaluation of generalized weakness and missing his last 2 sessions of dialysis. Patient reports that he did not go to dialysis on either Monday or because he felt too weak. He has not had any fevers. He has noted some leg swelling and shortness of breath. No chest pain. He has been having constipation, otherwise no abdominal pain. Triage note reports that the patient had facial asymmetry. I do not note any facial asymmetry on exam, however the patient does have some left periorbital edema. PFSH Past Medical History Hx Anticoagulant Therapy: Yes (aspirin 81) Asthma: No Autoimmune Disease: No Blood Disorders: No Anxiety: Yes (PTSD) Depression: No Heart Rhythm Problems: No Cancer: No Cardiovascular Problems: Yes High Cholesterol: Yes Chemotherapy: No Chest Pain: Yes Congestive Heart Failure: Yes COPD: No Cerebrovascular Accident: Yes Coronary Artery Disease: Yes Diabetes: Yes Dialysis: Yes (//MON) Diminished Hearing: No Endocrine: Yes Gastrointestinal Disorders: No GERD: No Genitourinary: Yes (ESRD) Hepatitis: Yes (HEP C) Hiatal Hernia: No Hypertension: Yes Immune Disorder: No Implanted Vascular Access Dvce: Yes Musculoskeletal: No Neurologic: Yes (CVA) Psychiatric: No Reproductive: No Respiratory: Yes Immunizations Current: Yes Myocardial Infarction: Yes Radiation Therapy: No Renal Failure: Yes Sleep Apnea: No Thyroid Disease: No Ulcer: No Past Surgical History AICD: No Arteriovenous Shunt: Yes (LEFT FA) Body Medical Devices: FISTULA Endocrine Surgery: Yes (FISTULA LEFT ARM) Insulin Pump: No Joint Replacement: No Pacemaker: No Other Surgery: Yes (scrotal surgery, PIN PLACEMENT S/P FINGER FX, AV SHUNT L FA ) Social History Alcohol Use: No Tobacco Use: Yes Substance Use: Yes (Cocaine) Allergies-Medications (Allergen,Severity, Reaction): Coded Allergies: Sulfa (Sulfonamide Antibiotics) (Unverified Allergy, Severe, Rash, ) ibuprofen (Unverified Allergy, Severe, 05/15/17) *MDRO Multi-Drug Resistant Organism (Verified Adverse Reaction, Unknown, 05/15/17) 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 SKIN: Focused skin assessment warm/dry. HEAD: Atraumatic. Normocephalic. EYES: Pupils equal and round. No scleral icterus. No injection or drainage. ENT: No nasal bleeding or discharge. Mucous membranes pink and moist. Mild left periorbital edema. NECK: Trachea midline. No JVD. CARDIOVASCULAR: Regular rate and rhythm. Left upper extremity dialysis fistula with thrill and bruit. RESPIRATORY: No accessory muscle use. Clear to auscultation. Breath sounds equal bilaterally. GASTROINTESTINAL: Abdomen soft, non-tender, nondistended. MUSCULOSKELETAL: No obvious deformities. No clubbing. No cyanosis. No edema. NEUROLOGICAL: Awake and alert. No obvious cranial nerve deficits. Motor grossly within normal limits. Normal speech. No focal deficits. PSYCHIATRIC: Appropriate mood and affect; insight and judgment normal. Data Data Last Documented VS Vital Signs Date Time Temp Pulse Resp B/P (MAP) Pulse Ox O2 Delivery O2 Flow Rate FiO2 07/17/17 23:44 98.4 97 19 149/105 (120) 97 Nasal Cannula 2.00 Orders Orders Electrocardiogram (07/17/17 20:43) Prothrombin Time / Inr (Pt) (07/17/17 20:43) Act Partial Throm Time (Ptt) (07/17/17 20:43) Complete Blood Count With Diff (07/17/17 20:43) Comprehensive Metabolic Panel (07/17/17 20:43) Creatine Kinase (Cpk) (07/17/17 20:43) Ct Brain W/O Iv Contrast(Rout) (07/17/17 20:43) Chest, Single Ap (07/17/17 20:43) Ecg Monitoring (07/17/17 20:43) Iv Access Insert/Monitor (07/17/17 20:43) Oximetry (07/17/17 20:43) Sodium Chloride 0.9% Flush (Ns Flush) (07/17/17 20:45) Influenzae A/B Antigen (07/17/17 20:43) Ammonia (07/17/17 20:44) Dextrose 50% In Erich (Vial) Inj (D50w (Vi (07/18/17 01:00) Insulin Human Regular Inj (Novolin R Inj (07/18/17 01:00) Sodium Polysty Sulfate Liq (Kayexalate L (07/18/17 01:00) Calcium Gluconate Inj (Calcium Gluconate (07/18/17 01:15) Admit Order (Ed Use Only) (07/18/17 01:12) Labs Laboratory Tests Test 07/17/17 21:25 07/17/17 21:28 07/17/17 22:58 07/18/17 00:29 Ammonia LESS THAN 10 MCMOL/L Prothrombin Time 12.0 SEC Prothromb Time International Ratio 1.2 RATIO Activated Partial Thromboplast Time 28.3 SEC White Blood Count 5.0 TH/MM3 Red Blood Count 5.12 MIL/MM3 Hemoglobin 15.4 GM/DL Hematocrit 44.6 % Mean Corpuscular Volume 87.1 FL Mean Corpuscular Hemoglobin 30.0 PG Mean Corpuscular Hemoglobin Concent 34.5 % Red Cell Distribution Width 17.9 % Platelet Count 250 TH/MM3 Mean Platelet Volume 11.0 FL Neutrophils (%) (Auto) 77.8 % Lymphocytes (%) (Auto) 9.5 % Monocytes (%) (Auto) 11.5 % Eosinophils (%) (Auto) 0.6 % Basophils (%) (Auto) 0.6 % Neutrophils # (Auto) 3.9 TH/MM3 Lymphocytes # (Auto) 0.5 TH/MM3 Monocytes # (Auto) 0.6 TH/MM3 Eosinophils # (Auto) 0.0 TH/MM3 Basophils # (Auto) 0.0 TH/MM3 CBC Comment AUTO DIFF Differential Comment AUTO DIFF CONFIRMED Platelet Estimate NORMAL Platelet Morphology Comment ENLARGED Ovalocytes 1+ Maxie Cells 1+ Blood Urea Nitrogen 131 MG/DL Creatinine 15.83 MG/DL Random Glucose 89 MG/DL Total Protein 7.9 GM/DL Albumin 3.6 GM/DL Calcium Level 9.8 MG/DL Alkaline Phosphatase 68 U/L Aspartate Amino Transf (AST/SGOT) 31 U/L Alanine Aminotransferase (ALT/SGPT) 23 U/L Total Bilirubin 0.8 MG/DL Sodium Level 133 MEQ/L Potassium Level 7.6 MEQ/L Chloride Level 94 MEQ/L Carbon Dioxide Level 23.6 MEQ/L Anion Gap 15 MEQ/L Estimat Glomerular Filtration Rate 4 ML/MIN Total Creatine Kinase 237 U/L [facility] Medical Decision Making Medical Screen Exam Complete: Yes Emergency Medical Condition: Yes Interpretation(s) EKG: Sinus, rate 96, normal axis, normal intervals, slight peaked T waves, T wave inversions and ST depressions in lateral leads, unchanged from prior. Differential Diagnosis Fluid overload, pulmonary edema, metabolic abnormality, CVA Narrative Course Initial vital signs show heart rate 101, blood pressure 154/84, pulse ox 97% on 2 L nasal cannula, oral temp of 98.1F. CBC: WBC 5, hemoglobin 15.4, hematocrit 44.6, platelets 250, neutrophils 77.8%. CMP is remarkable for potassium 7.6, BUN 131, creatinine 15.8, GFR 4 Chest x-ray: CONCLUSION: 1. Bilateral effusions, right greater than left slightly increased from comparison exam on May 15. Right effusion has reaccumulated since thoracentesis on May 16. CT head: CONCLUSION: 1. No acute intracranial abnormalities. The triage note reports that the patient had facial asymmetry which the reportedly noticed the day before presenting to the emergency department. On my assessment the patient does not appear to have any facial asymmetry, he does have some left periorbital edema. Pupils are equal, round, 3 mm, react to light. EOMI. No proptosis. No facial cellulitis. Patient has generalized weakness, no focal deficits. Patient was written for 1 g of IV calcium, an amp of D50, 8 units of IV insulin , and 30 mg of Kayexalate. Case discussed with the patient's senior reservoir engineer Dr. Peck who will arrange for dialysis tonight. Case discussed with boiler attendant Dr. Cervantes who will admit the patient to his service. Diagnosis Primary Impression: Hyperkalemia Additional Impressions: ESRD (end stage renal disease) Pleural effusion Generalized weakness Admitting Information Admitting Physician Requests: Admit Jaime Morgan MD Jul 17, 2017 20:48
--- NOTE | 2017-07-17 21:39 | RADRPT ---
EXAM DATE/TIME: 07/17/2017 20:52 [facility] COMPARISON: CHEST EXPIRATION ONLY, May 16, 2017, 15:25. INDICATIONS : Short of breath. MEDICAL HISTORY : Hepatitis C. Cardiovascular disease. Hypertension. Renal disease, end stage. Dialysis. SURGICAL HISTORY : AV Shunt. ENCOUNTER: Initial ACUITY: 1 day PAIN SCORE: 0/10 LOCATION: Bilateral chest FINDINGS: A single view of the chest demonstrates moderate right effusion and smaller left effusion. Cardiomega ly. No pneumothorax. No acute bony abnormalities. Left subclavian stent. CONCLUSION: 1. Bilateral effusions, right greater than left slightly increased from comparison exam on April 22 5. Right effusion has reaccumulated since thoracentesis on May 16. Lakhwinder Pringle MD on July 17, 2017 at 21:36 Board Certified Radiologist. This report was verified electronically.
[2017-07-17 22:13] LABS: INTERNATIONAL NORMALIZED RATIO 1.2 RATIO
--- NOTE | 2017-07-17 22:24 | RADRPT ---
EXAM DATE/TIME: 07/17/2017 21:50 [facility] COMPARISON: No previous studies available for comparison. INDICATIONS : Patient complains of weakness; altered mental status. RADIATION DOSE: 36.47 CTDIvol (mGy) MEDICAL HISTORY : Cardiovascular disease. Hypertension. Renal failure, chronic.dialysis patient SURGICAL HISTORY : None. ENCOUNTER: Initial ACUITY: 1 day PAIN SCALE: 4/10 LOCATION: cranial TECHNIQUE: Multiple contiguous axial images were obtained of the head. Using automated exposure control and adj ustment of the mA and/or kV according to patient size, radiation dose was kept as low as reasonably a chievable to obtain optimal diagnostic quality images. DICOM format image data is available electro nically for review and comparison. FINDINGS: CEREBRUM: The ventricles are normal for age. No evidence of midline shift, mass lesion, hemorrhage or acute in farction. No extra-axial fluid collections are seen. POSTERIOR FOSSA: The cerebellum and brainstem are intact. The 4th ventricle is midline. The cerebellopontine angle i s unremarkable. EXTRACRANIAL: The visualized portion of the orbits is intact. SKULL: The calvaria is intact. No evidence of skull fracture. CONCLUSION: 1. No acute intracranial abnormalities. Lakhwinder Pringle MD on July 17, 2017 at 22:22 Board Certified Radiologist. This report was verified electronically.
[2017-07-17 23:08] LABS: AUTOMATED NEUTROPHIL # 3.9 TH/MM3 (1.8-7.7); BASOPHIL % 0.6 % (0.0-2.0); EOSINOPHIL % 0.6 % (0.0-4.0); HEMATOCRIT 44.6 % (39.0-51.0); HEMOGLOBIN 15.4 GM/DL (13.0-17.0); LYMPH % 9.5 % (9.0-44.0); LYMPHOCYTE # 0.5 TH/MM3 (1.0-4.8); MEAN CELL VOLUME 87.1 FL (80.0-100.0); MEAN CORPUSCULAR HGB CONC 34.5 % (32.0-36.0); MONO % 11.5 % (0.0-8.0); MONOCYTE # 0.6 TH/MM3 (0-0.9); NEUT % 77.8 % (16.0-70.0); PLATELET COUNT 250 TH/MM3 (150-450); RED BLOOD COUNT 5.12 MIL/MM3 (4.50-5.90); RED CELL DISTRIBUTION WIDTH 17.9 % (11.6-17.2)
[2017-07-17 23:32] LABS: BURR CELLS 1+ (NORMAL)
[2017-07-17 23:33] LABS: OVALOCYTES 1+ (NORMAL)
[2017-07-17 23:44] VITALS: BP 149/105; PULSE 97; RESP 19; TEMP 98.4; O2SAT 97
[2017-07-18] VITALS (15 sets, daily range): BP systolic 138–174; BP diastolic 63–85; PULSE 94–105; RESP 11–25; TEMP 97.1–98.4; O2SAT 94–100
[2017-07-18 00:53] LABS: ALBUMIN 3.6 GM/DL (3.4-5.0); ALKALINE PHOSPHATASE 68 U/L (45-117); ALT (GPT) 23 U/L (12-78); AST (GOT) 31 U/L (15-37); BICARBONATE 23.6 MEQ/L (21.0-32.0); BLOOD UREA NITROGEN 131 MG/DL (7-18); CALCIUM 9.8 MG/DL (8.5-10.1); CHLORIDE 94 MEQ/L (98-107); GLOMERULAR FILTRATION RATE 4 ML/MIN (>89); GLUCOSE,RANDOM 89 MG/DL (74-106); SODIUM (NA) 133 MEQ/L (136-145); TOTAL BILIRUBIN ADULT 0.8 MG/DL (0.2-1.0); TOTAL PROTEIN 7.9 GM/DL (6.4-8.2)
[2017-07-18 00:57] LABS: CREATININE 15.83 MG/DL (0.60-1.30)
[2017-07-18] MEDS ORDERED: INSULIN HUMAN REGULAR 1,000 UNITS/10 ML VIAL IV PUSH ONE (01:00)
[2017-07-18] MEDS ORDERED: DEXTROSE 50% IN WATER 50 ML VIAL(D50) IV PUSH ONE (01:00)
[2017-07-18] MEDS ORDERED: SODIUM POLYSTYRENE SULFONATE SUSP 15 GM/60 ML CUP PO ONE (01:00)
[2017-07-18] MEDS ORDERED: LACTULOSE SYRUP 20 GM/30 ML CUP PO PRN (01:15)
[2017-07-18] MEDS ORDERED: SENNOSIDES 8.6 MG TAB PO PRN (01:15)
[2017-07-18] MEDS ORDERED: RESP: ALBUTEROL 2.5 MG/IPRATROPIUM 0.5 MG NEB (PRN) INH (01:15)
[2017-07-18] MEDS ORDERED: ACETAMINOPHEN 325 MG TAB PO PRN ×2 (01:15→09:45)
[2017-07-18] MEDS ORDERED: SODIUM CHLORIDE 0.9% FLUSH 10 ML FLUSH IV FLUSH PRN ×2 (01:15→09:45)
[2017-07-18] MEDS ORDERED: TEMAZEPAM 15 MG CAP PO PRN (01:15)
[2017-07-18] MEDS ORDERED: BISACODYL 10 MG SUPP RECTAL PRN (01:15)
[2017-07-18] MEDS ORDERED: MISCELLANEOUS NURSING INFORMATION XX SCH (01:15)
[2017-07-18] MEDS ORDERED: CHLORHEXIDINE GLUCONATE 2 % 1 PACK (2 CLOTHS) TOP PRN (01:15)
[2017-07-18] MEDS ORDERED: ONDANSETRON HCL 4 MG/2 ML VIAL IV PUSH PRN ×2 (01:15→09:45)
[2017-07-18] MEDS ORDERED: CALCIUM GLUCONATE 10% 1 GM/10 ML VIAL IV PUSH ONE (01:15)
[2017-07-18] MEDS ORDERED: MAGNESIUM HYDROXIDE SUSP 30 ML CUP PO PRN (01:15)
--- NOTE | 2017-07-18 01:19 | HHI.HP ---
[facility] Service Critical Care Medicine Primary Care Physician Clair [facility] Admission Diagnosis hyperkalemia, ESRD, pleural effusions Diagnosis: Travel History International Travel<30 Days: No Contact w/Intl Traveler <30 Da: No Traveled to Known Affected Are: No History of Present Illness 61-year-old male with ESRD on hemodialysis Monday, here for evaluation of generalized weakness and missing his last 2 sessions of dialysis. Patient reports that he did not go to dialysis on either Monday or because he felt too weak. He has not had any fevers. He has noted some leg swelling and shortness of breath. No chest pain. He has been having constipation, otherwise no abdominal pain. In the emergency department his potassium was found to be 7.6 with nonspecific EKG changes. He has been admitted to ICU as well as nephrology was consulted for emergent hemodialysis. Review of Systems Constitutional: COMPLAINS OF: Fatigue, DENIES: Diaphoretic episodes, Fever, Weight gain, Weight loss, Chills, Dizziness, Change in appetite, Night Sweats Endocrine: DENIES: Heat/cold intolerance, Polydipsia, Polyuria, Polyphagia Eyes: DENIES: Blurred vision, Diplopia, Eye inflammation, Eye pain, Vision loss , Photosensitivity, Double Vision Ears, nose, mouth, throat: DENIES: Tinnitus, Hearing loss, Vertigo, Nasal discharge, Oral lesions, Throat pain, Hoarseness, Ear Pain, Running Nose, Epistaxis, Sinus Pain, Toothache, Odynophagia Respiratory: DENIES: Apneas, Cough, Snoring, Wheezing, Hemoptysis, Sputum production, Shortness of breath Cardiovascular: DENIES: Chest pain, Palpitations, Syncope, Dyspnea on Exertion , PND, Lower Extremity Edema, Orthopnea, Claudication Gastrointestinal: DENIES: Abdominal pain, Black stools, Bloody stools, Constipation, Diarrhea, Nausea, Vomiting, Difficulty Swallowing, Anorexia Genitourinary: DENIES: Sexual dysfunction, Urinary frequency, Urinary incontinence, Urgency, Hematuria, Dysuria, Nocturia, Penile Discharge, Testicular Pain, Testicular Swelling Musculoskeletal: DENIES: Joint pain, Muscle aches, Stiffness, Joint Swelling, Back pain, Neck pain Integumentary: DENIES: Abnormal pigmentation, Nail changes, Pruritus, Rash Hematologic/lymphatic: DENIES: Bruising, Lymphadenopathy Immunologic/allergic: DENIES: Eczema, Urticaria Neurologic: COMPLAINS OF: Abnormal gait, Poor Balance, DENIES: Headache, Localized weakness, Paresthesias, Seizures, Speech Problems, Tremor Psychiatric: DENIES: Anxiety, Confusion, Mood changes, Depression, Hallucinations, Agitation, Suicidal Ideation, Homicidal Ideation, Delusions Past Family Social History Allergies: Coded Allergies: Sulfa (Sulfonamide Antibiotics) (Unverified Allergy, Severe, Rash, ) ibuprofen (Unverified Allergy, Severe, 05/15/17) *MDRO Multi-Drug Resistant Organism (Verified Adverse Reaction, Unknown, 05/15/17) 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 Past Medical History Hypertension Diabetes mellitus Cocaine abuse Tobacco abuse Hepatitis C Nonischemic cardiomyopathy with EF of 40% End-stage renal disease on hemodialysis Past Surgical History Scrotal surgery ORIF finger Left upper extremity fistula 09/14/12 Cardiac catheterization in 2012 Reported Medications Reported Meds & Active Scripts Active Reported Hydralazine HCl 25 Mg Tablet 25 Mg PO BID Ferrous Sulfate 325 Mg (65 Mg Iron) Tablet 324 Mg PO BIDPC Amoxicillin 875 Mg Tab 875 Mg PO BID Renvela (Sevelamer Carbonate) 800 Mg Tab 1,600 Mg PO TID Aspirin Adult Low Strength (Aspirin) 81 Mg Tabdr 81 Mg PO DAILY Active Ordered Medications Current Medications Medications (Trade) Dose Ordered Sig/Crispin Route PRN Reason Start Time Stop Time Status Last Admin Dose Admin Sodium Chloride (NS Flush) 2 ml UNSCH PRN IVF FLUSH AFTER USING IV ACCESS 07/17/17 20:45 Amoxicillin (Trimox) 875 mg BID PO 07/18/17 09:00 Aspirin (Ecotrin Ec) 81 mg DAILY PO 07/18/17 09:00 Ferrous Sulfate (Ferrous Sulfate) 325 mg BIDPC PO 07/18/17 09:00 Hydralazine HCl (Apresoline) 25 mg BID PO 07/18/17 09:00 Sevelamer Carbonate (Renvela) 1,600 mg TID PO 07/18/17 09:00 Sodium Chloride (NS Flush) 2 ml UNSCH PRN IV FLUSH FLUSH AFTER USING IV ACCESS 07/18/17 01:15 Sodium Chloride (NS Flush) 2 ml BID IV FLUSH 07/18/17 09:00 Acetaminophen (Tylenol) 650 mg Q6H PRN PO PAIN 1-10 AND/OR FEVER >101F 07/18/17 01:15 Famotidine (Pepcid Inj) 10 mg Q12HR IV PUSH 07/18/17 09:00 Ondansetron HCl (Zofran Inj) 4 mg Q6H PRN IV PUSH NAUSEA OR VOMITING 07/18/17 01:15 Temazepam (Restoril) 15 mg HS PRN PO INSOMNIA 07/18/17 01:15 Albuterol/ Ipratropium (Duoneb Neb) 1 ampule Q2HR NEB PRN INH WHEEZING 07/18/17 01:15 Heparin Sodium (Porcine) (Heparin Inj) 5,000 units Q8H SQ 07/18/17 06:00 Miscellaneous Information 1 [id number] XX 07/18/17 01:15 Chlorhexidine Gluconate (Chlorhexidine 2% Cloth) 3 pack Taper DAILY@04 TOP 07/18/17 04:00 07/14/18 03:59 Chlorhexidine Gluconate (Chlorhexidine 2% Cloth) 3 pack UNSCH PRN TOP HYGIENIC CARE 07/18/17 01:15 Senna/Docusate Sodium (Ayla-Colace) 1 tab BID PO 07/18/17 09:00 Magnesium Hydroxide (Milk Of Magnesia Liq) 30 ml Q12H PRN PO Mild constipation 07/18/17 01:15 Sennosides (Senokot) 17.2 mg Q12H PRN PO Moderate constipation 07/18/17 01:15 Bisacodyl (Dulcolax Supp) 10 mg DAILY PRN RECTAL SEVERE CONSITIPATION 07/18/17 01:15 Lactulose (Lactulose Liq) 30 ml DAILY PRN PO SEVERE CONSITIPATION 07/18/17 01:15 Family History Family history of diabetes mellitus Social History Patient denies alcohol, illicit drugs. States he smokes 2 cigarettes per day. Medical record indicates history of cocaine abuse. Physical Exam Vital Signs Vital Signs Date Time Temp Pulse Resp B/P (MAP) Pulse Ox O2 Delivery O2 Flow Rate FiO2 07/17/17 23:44 98.4 97 19 149/105 (120) 97 Nasal Cannula 2.00 07/17/17 20:20 98.1 101 20 154/84 (107) Physical Exam GENERAL: Well-nourished, well-developed patient. SKIN: Warm and dry. HEAD: Normocephalic. EYES: No scleral icterus. No injection or drainage. NECK: Supple, trachea midline. No JVD or lymphadenopathy. CARDIOVASCULAR: Regular rate and rhythm without murmurs, gallops, or rubs. RESPIRATORY: Breath sounds equal bilaterally. No accessory muscle use. GASTROINTESTINAL: Abdomen soft, non-tender, nondistended. MUSCULOSKELETAL: No cyanosis, or edema. BACK: Nontender without obvious deformity. NEURO EXAM: GCS: 15 Mental Status: The patient is alert and oriented to person, place, and time with normal speech. Laboratory Laboratory Tests Test 07/17/17 21:25 07/17/17 21:28 07/17/17 22:58 07/18/17 00:29 Ammonia LESS THAN 10 Prothrombin Time 12.0 Prothromb Time International Ratio 1.2 Activated Partial Thromboplast Time 28.3 White Blood Count 5.0 Red Blood Count 5.12 Hemoglobin 15.4 Hematocrit 44.6 Mean Corpuscular Volume 87.1 Mean Corpuscular Hemoglobin 30.0 Mean Corpuscular Hemoglobin Concent 34.5 Red Cell Distribution Width 17.9 Platelet Count 250 Mean Platelet Volume 11.0 Neutrophils (%) (Auto) 77.8 Lymphocytes (%) (Auto) 9.5 Monocytes (%) (Auto) 11.5 Eosinophils (%) (Auto) 0.6 Basophils (%) (Auto) 0.6 Neutrophils # (Auto) 3.9 Lymphocytes # (Auto) 0.5 Monocytes # (Auto) 0.6 Eosinophils # (Auto) 0.0 Basophils # (Auto) 0.0 CBC Comment AUTO DIFF Differential Comment AUTO DIFF CONFIRMED Platelet Estimate NORMAL Platelet Morphology Comment ENLARGED Ovalocytes 1+ Jeramy Cells 1+ Blood Urea Nitrogen 131 Creatinine 15.83 Random Glucose 89 Total Protein 7.9 Albumin 3.6 Calcium Level 9.8 Alkaline Phosphatase 68 Aspartate Amino Transf (AST/SGOT) 31 Alanine Aminotransferase (ALT/SGPT) 23 Total Bilirubin 0.8 Sodium Level 133 Potassium Level 7.6 Chloride Level 94 Carbon Dioxide Level 23.6 Anion Gap 15 Estimat Glomerular Filtration Rate 4 Total Creatine Kinase 237 Date/Time Source Procedure Growth Status 07/17/17 21:28 Nasal Washing Influenza Types A,B Antigen (FLORES) - Final NEGATIVE FOR FLU A AND B ANTIGEN.... Complete Result Diagram: 07/17/17 6182 07/18/17 0029 Imaging Last [address] 07/17/172042 Signed Impressions: Service Date/Time: Monday, July 17, 2017 21:50 - CONCLUSION: 1. No acute intracranial abnormalities. Lakhwinder Pringle MD Chest X-Ray 07/17/172042 Signed Impressions: Service Date/Time: Monday, July 17, 2017 20:52 - CONCLUSION: 1. Bilateral effusions, right greater than left slightly increased from comparison exam on May 15. Right effusion has reaccumulated since thoracentesis on May 16. Lakhwinder Pringle MD Septic Shock Reassessment Septic shock perfusion: reassessment completed Caprini VTE Risk Assessment Caprini VTE Risk Assessment: Mod/High Risk (score >= 2) Caprini Risk Assessment Model Point Value = 1 Point Value = 2 Point Value = 3 Point Value = 5 Age 41-60 Minor surgery BMI > 25 kg/m2 Swollen legs Varicose veins or History of unexplained or recurrent spontaneous Oral contraceptives or hormone replacement Sepsis (< 1 month) Serious lung disease, including pneumonia (< 1 month) Abnormal pulmonary function Acute myocardial infarction Congestive heart failure (< 1 month) History of inflammatory bowel disease Medical patient at bed rest Age 61-74 Arthroscopic surgery Major open surgery (> 45 min) Laparoscopic surgery (> 45 min) Malignancy Confined to bed (> 72 hours) Immobilizing plaster cast Central venous access Age >= 75 History of VTE Family history of VTE Factor V Leiden Prothrombin [id number] Lupus anticoagulant Anticardiolipin antibodies Elevated serum homocysteine Heparin-induced thrombocytopenia Other congenital or acquired thrombophilia Stroke (< 1 month) Elective arthroplasty Hip, pelvis, or leg fracture Acute spinal cord injury (< 1 month) Prophylaxis Regimen Total Risk Factor Score Risk Level Prophylaxis Regimen 0-1 Low Early ambulation 2 Moderate Order ONE of the following: *Sequential Compression Device (SCD) *Heparin 5000 units SQ BID 3-4 Higher Order ONE of the following medications: *Heparin 5000 units SQ TID *Enoxaparin/Lovenox 40 mg SQ daily (WT < 150 kg, CrCl > 30 mL/min) *Enoxaparin/Lovenox 30 mg SQ daily (WT < 150 kg, CrCl > 10-29 mL/min) *Enoxaparin/Lovenox 30 mg SQ BID (WT < 150 kg, CrCl > 30 mL/min) AND/OR *Sequential Compression Device (SCD) 5 or more Highest Order ONE of the following medications: *Heparin 5000 units SQ TID (Preferred with Epidurals) *Enoxaparin/Lovenox 40 mg SQ daily (WT < 150 kg, CrCl > 30 mL/min) *Enoxaparin/Lovenox 30 mg SQ daily (WT < 150 kg, CrCl > 10-29 mL/min) *Enoxaparin/Lovenox 30 mg SQ BID (WT < 150 kg, CrCl > 30 mL/min) AND *Sequential Compression Device (SCD) Assessment and Plan Assessment and Plan End-stage renal disease - Hyperkalemia due to noncompliance with HD - Emergent hemodialysis - Further management per nephrology - Renvela Hypertension - Hydralazine Diabetes mellitus - Insulin per home regimen - Aspirin DVT GI prophylaxis - Teds SCDs - Subcutaneous heparin - Pepcid Critical Care: The total critical care time was 35 minutes. Time to perform other separately billable procedures was not included in the critical care time. Yovanny Cervantes MD Jul 18, 2017 1:19 am
[2017-07-18] MEDS: CHLORHEXIDINE GLUCONATE 2 % 1 PACK (2 CLOTHS) TOP SCH (03:47)
[2017-07-18] MEDS: HEPARIN SODIUM - SQ 10,000 UNITS/ML VIAL SQ SCH ×3 (05:24→22:52)
[2017-07-18] MEDS: hydrALAZINE HCL 25 MG TAB PO SCH ×2 (08:16→19:59)
[2017-07-18] MEDS: FERROUS SULFATE 325 MG (65 MG ELEMENTAL IRON) TAB PO SCH ×2 (08:16→17:45)
[2017-07-18] MEDS: ASPIRIN EC 81 MG TABEC PO SCH (08:16)
[2017-07-18] MEDS: DOCUSATE SODIUM 50 MG/SENNA 8.6 MG TAB PO SCH ×2 (08:16→19:59)
[2017-07-18] MEDS: SODIUM CHLORIDE 0.9% FLUSH 10 ML FLUSH IV FLUSH SCH ×2 (08:17→20:00)
[2017-07-18] MEDS: FAMOTIDINE 20 MG/2 ML VIAL IV PUSH SCH ×2 (08:17→19:59)
[2017-07-18] MEDS: AMOXICILLIN 875 MG TAB PO SCH ×2 (08:40→19:59)
[2017-07-18] MEDS: SEVELAMER CARBONATE 800 MG TAB PO SCH ×3 (08:40→17:45)
[2017-07-18] MEDS ORDERED: SODIUM CHLOR 0.9% 1000 ML INJ 1,000 ML OTHER PRN ×2 (09:35)
[2017-07-18] MEDS ORDERED: SODIUM CHLOR 0.9% 1000 ML INJ 1,000 ML IV PRN (09:35)
[2017-07-18] MEDS ORDERED: NITROGLYCERIN 0.4 MG SL 25 TABS/BTL SL PRN (09:45)
[2017-07-18] MEDS ORDERED: HEPARIN SODIUM - IV 10,000 UNITS/10 ML VIAL IV FLUSH PRN (09:45)
[2017-07-18] MEDS ORDERED: GENTAMICIN SULFATE 20 MG/2 ML VIAL OTHER PRN (09:45)
[2017-07-18] MEDS ORDERED: MANNITOL 12.5 GM/50 ML VIAL IV PRN (09:45)
[2017-07-18] MEDS ORDERED: GELATIN 12 MM/7 MM FOAM TOP PRN (09:45)
[2017-07-18] MEDS ORDERED: HEPARIN SODIUM - IV 10,000 UNITS/10 ML VIAL PRN (09:45)
[2017-07-18] MEDS ORDERED: diphenhydrAMINE HCL 25 MG CAP PO PRN (09:45)
[2017-07-18] MEDS ORDERED: ALBUMIN 25% INJ 100 ML IV PRN (09:45)
[2017-07-18] MEDS ORDERED: cloNIDine HCL 0.1 MG TAB PO PRN (09:45)
--- NOTE | 2017-07-18 09:49 | PD.CONS ---
HPI Service Nephrology Consult Requested By Dr. Cervantes Reason for Consult ESRD and HD Hyperkalemia with EKG changes Primary Care Physician [facility] History of Present Illness Patient is a 61-year-old male with ESRD on hemodialysis Monday, here for evaluation of generalized weakness and missing his last 2 sessions of dialysis. Patient reports that he did not go to dialysis on either Monday or because he felt too weak. His abdomen is distended. Denies any SOB or CP. In the emergency department his potassium was found to be 7.6 with nonspecific EKG changes. He has been admitted to ICU as well as nephrology was consulted for emergent hemodialysis. Dialysis was preformed last night and 3 liters removed. 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 Past Medical History Hypertension Diabetes mellitus Tobacco abuse Hepatitis C Nonischemic cardiomyopathy with EF of 40% End-stage renal disease on hemodialysis Past Surgical History Scrotal surgery ORIF finger Left upper extremity fistula 09/14/12 Cardiac catheterization in 2012 Active Ordered Medications Current Medications Medications (Trade) Dose Ordered Sig/Crispin Route Start Time Stop Time Status Last Admin (NS Flush) 2 ml UNSCH PRN IVF 07/17/17 20:45 (Trimox) 875 mg BID PO 07/18/17 09:00 07/18/17 08:40 (Ecotrin Ec) 81 mg DAILY PO 07/18/17 09:00 07/18/17 08:16 (Ferrous Sulfate) 325 mg BIDPC PO 07/18/17 09:00 07/18/17 08:16 (Apresoline) 25 mg BID PO 07/18/17 09:00 07/18/17 08:16 (Renvela) 1,600 mg TID PO 07/18/17 09:00 07/18/17 08:40 (NS Flush) 2 ml UNSCH PRN IV FLUSH 07/18/17 01:15 (NS Flush) 2 ml BID IV FLUSH 07/18/17 09:00 07/18/17 08:17 (Tylenol) 650 mg Q6H PRN PO 07/18/17 01:15 (Pepcid Inj) 10 mg Q12HR IV PUSH 07/18/17 09:00 07/18/17 08:17 (Zofran Inj) 4 mg Q6H PRN IV PUSH 07/18/17 01:15 (Restoril) 15 mg HS PRN PO 07/18/17 01:15 (Duoneb Neb) 1 ampule Q2HR NEB PRN INH 07/18/17 01:15 (Heparin Inj) 5,000 units Q8H SQ 07/18/17 06:00 07/18/17 05:24 Miscellaneous Information 1 Q361D XX 07/18/17 01:15 (Chlorhexidine 2% Cloth) 3 pack Taper DAILY@04 TOP 07/18/17 04:00 07/14/18 03:59 (Chlorhexidine 2% Cloth) 3 pack UNSCH PRN TOP 07/18/17 01:15 (Ayla-Colace) 1 tab BID PO 07/18/17 09:00 07/18/17 08:16 (Milk Of Magnesia Liq) 30 ml Q12H PRN PO 07/18/17 01:15 (Senokot) 17.2 mg Q12H PRN PO 07/18/17 01:15 (Dulcolax Supp) 10 mg DAILY PRN RECTAL 07/18/17 01:15 (Lactulose Liq) 30 ml DAILY PRN PO 07/18/17 01:15 Family History Hx of DM Social History Denies ETOH use Tobacco use (Skylar Paulino) Physical Exam Vital Signs Vital Signs Date Time Temp Pulse Resp B/P (MAP) Pulse Ox O2 Delivery O2 Flow Rate FiO2 07/18/17 06:00 101 07/18/17 06:00 98.4 101 20 138/63 (88) 98 07/18/17 05:00 97.1 105 21 140/67 (91) 95 07/18/17 04:00 105 07/18/17 04:00 97.1 105 25 150/72 (98) 98 07/18/17 03:00 97.9 96 25 157/85 (109) 98 07/18/17 02:30 97.9 98 23 148/81 (103) 07/18/17 02:00 94 Nasal Cannula 2.00 07/18/17 01:51 99 18 174/82 (112) 94 Nasal Cannula 2.00 07/17/17 23:44 98.4 97 19 149/105 (120) 97 Nasal Cannula 2.00 07/17/17 20:20 98.1 101 20 154/84 (107) Physical Exam GENERAL: Lethargic SKIN: Warm and dry. HEAD: Normocephalic. EYES: No scleral icterus. No injection or drainage. NECK: Supple, trachea midline. No JVD or lymphadenopathy. CARDIOVASCULAR: Regular rate and rhythm without murmurs, gallops, or rubs. RESPIRATORY: Breath sounds equal bilaterally. No accessory muscle use. GASTROINTESTINAL: Abdomen soft, non-tender. Distended MUSCULOSKELETAL: No cyanosis, or edema. BACK: Nontender without obvious deformity. No CVA tenderness. Laboratory Laboratory Tests Test 07/17/17 21:25 07/17/17 21:28 07/17/17 22:58 07/18/17 00:29 Ammonia LESS THAN 10 Prothrombin Time 12.0 Prothromb Time International Ratio 1.2 Activated Partial Thromboplast Time 28.3 White Blood Count 5.0 Red Blood Count 5.12 Hemoglobin 15.4 Hematocrit 44.6 Mean Corpuscular Volume 87.1 Mean Corpuscular Hemoglobin 30.0 Mean Corpuscular Hemoglobin Concent 34.5 Red Cell Distribution Width 17.9 Platelet Count 250 Mean Platelet Volume 11.0 Neutrophils (%) (Auto) 77.8 Lymphocytes (%) (Auto) 9.5 Monocytes (%) (Auto) 11.5 Eosinophils (%) (Auto) 0.6 Basophils (%) (Auto) 0.6 Neutrophils # (Auto) 3.9 Lymphocytes # (Auto) 0.5 Monocytes # (Auto) 0.6 Eosinophils # (Auto) 0.0 Basophils # (Auto) 0.0 CBC Comment AUTO DIFF Differential Comment AUTO DIFF CONFIRMED Platelet Estimate NORMAL Platelet Morphology Comment ENLARGED Ovalocytes 1+ Dana Cells 1+ Blood Urea Nitrogen 131 Creatinine 15.83 Random Glucose 89 Total Protein 7.9 Albumin 3.6 Calcium Level 9.8 Alkaline Phosphatase 68 Aspartate Amino Transf (AST/SGOT) 31 Alanine Aminotransferase (ALT/SGPT) 23 Total Bilirubin 0.8 Sodium Level 133 Potassium Level 7.6 Chloride Level 94 Carbon Dioxide Level 23.6 Anion Gap 15 Estimat Glomerular Filtration Rate 4 Total Creatine Kinase 237 Test 07/18/17 02:25 Nasal Screen MRSA (PCR) MRSA NOT DETECTED Date/Time Source Procedure Growth Status 07/17/17 21:28 Nasal Washing Influenza Types A,B Antigen (FLORES) - Final NEGATIVE FOR FLU A AND B ANTIGEN.... Complete (Skylar Paulino) Result Diagram: 07/17/178 07/18/17 0029 Imaging Last Impressions Head CT 07/17/172042 Signed Impressions: Service Date/Time: Monday, July 17, 2017 21:50 - CONCLUSION: 1. No acute intracranial abnormalities. Lakhwinder Pringle MD Chest X-Ray 07/17/172042 Signed Impressions: Service Date/Time: Monday, July 17, 2017 20:52 - CONCLUSION: 1. Bilateral effusions, right greater than left slightly increased from comparison exam on May 15. Right effusion has reaccumulated since thoracentesis on May 16. Lakhwinder Pringle MD (Skylar Paulino) Assessment and Plan Problem List: (1) ESRD (end stage renal disease) ICD Codes: N18.6 - End stage renal disease Status: Acute Plan: ESRD T/TH/SAT missed last and Monday Hyperkalemic last night at 7.6 and emergent dialysis done with 3 liters removed Continue Renvela Repeat labs are pending today. Dialysis compliance discussed with patient (2) Pleural effusion ICD Codes: J90 - Pleural effusion, not elsewhere classified Status: Acute (3) Generalized weakness ICD Codes: R53.1 - Weakness Status: Acute (4) Hypertension ICD Codes: I10 - Hypertension Status: Chronic Plan: continue home medications (5) DM (diabetes mellitus) ICD Codes: E11.9 - Type 2 diabetes mellitus without complications Status: Chronic Plan: Maintain blood sugars between 140mg/dl and 180 mg/dl (Skylar Paulino) Problem List: (1) ESRD (end stage renal disease) ICD Codes: N18.6 - End stage renal disease Status: Acute Plan: ESRD T/TH/SAT missed last and Monday Hyperkalemic last night at 7.6 and emergent dialysis done with 3 liters removed Continue Renvela Repeat labs are pending today. Dialysis compliance discussed with patient. Patient seen and examined, agree with above. Patient has been non compliant with HD and diet. Repeat K is normal. (2) Pleural effusion ICD Codes: J90 - Pleural effusion, not elsewhere classified Status: Acute (3) Generalized weakness ICD Codes: R53.1 - Weakness Status: Acute (4) Hypertension ICD Codes: I10 - Hypertension Status: Chronic Plan: continue home medications (5) DM (diabetes mellitus) ICD Codes: E11.9 - Type 2 diabetes mellitus without complications Status: Chronic Plan: Maintain blood sugars between 140mg/dl and 180 mg/dl (Severo Peck MD) Skylar Paulino Jul 18, 2017 09:48 Severo Peck MD Jul 18, 2017 18:56
[2017-07-18 10:50] LABS: ALBUMIN 3.3 GM/DL (3.4-5.0); ALKALINE PHOSPHATASE 69 U/L (45-117); ALT (GPT) 18 U/L (12-78); AST (GOT) 35 U/L (15-37); BICARBONATE 23.7 MEQ/L (21.0-32.0); BLOOD UREA NITROGEN 86 MG/DL (7-18); CALCIUM 9.2 MG/DL (8.5-10.1); CHLORIDE 98 MEQ/L (98-107); GLOMERULAR FILTRATION RATE 6 ML/MIN (>89); GLUCOSE,RANDOM 53 MG/DL (74-106); TOTAL BILIRUBIN ADULT 0.9 MG/DL (0.2-1.0); TOTAL PROTEIN 7.4 GM/DL (6.4-8.2)
[2017-07-18 10:53] LABS: CREATININE 11.07 MG/DL (0.60-1.30)
[2017-07-18 10:58] LABS: MAGNESIUM 2.4 MG/DL (1.5-2.5)
[2017-07-18 11:02] LABS: SODIUM (NA) 137 MEQ/L (136-145)
[2017-07-18 12:54] LABS: HEMATOCRIT 43.7 % (39.0-51.0); HEMOGLOBIN 14.5 GM/DL (13.0-17.0); MEAN CELL VOLUME 89.6 FL (80.0-100.0); MEAN CORPUSCULAR HEMOGLOBIN 29.7 PG (27.0-34.0); MEAN CORPUSCULAR HGB CONC 33.1 % (32.0-36.0); MEAN PLATELET VOLUME 10.2 FL (7.0-11.0); RED BLOOD COUNT 4.88 MIL/MM3 (4.50-5.90); RED CELL DISTRIBUTION WIDTH 17.2 % (11.6-17.2)
[2017-07-18 13:30] LABS: PLATELET COUNT 129 TH/MM3 (150-450)
--- NOTE | 2017-07-18 21:58 | EKG ---
Date Performed: 07/18/2017 Time Performed: 07:17:15 PTAGE: 61 years EKG: Sinus rhythm POSSIBLE LEFT ATRIAL ENLARGEMENT SEPTAL MYOCARDIAL INFARCTION , OF INDETERMINATE AGE ST - T-WAVE ABN ORMALITY ABNORMAL ECG PREVIOUS TRACING : 07/17/2017 21.06 Since the prior tracing, there has been no significant cates DOCTOR: Nayana Bonilla Interpretating Date/Time 07/18/2017 21:57:39
--- NOTE | 2017-07-18 22:32 | EKG ---
Date Performed: 07/17/2017 Time Performed: 21:06:47 PTAGE: 61 years EKG: SINUS TACHYCARDIA INTRAVENTRICULAR CONDUCTION DELAY ABNORMAL ECG PREVIOUS TRACING : 05/16/2017 06.09 Since the prior tracing, there has been no significant cates DOCTOR: Nayana Bonilla Interpretating Date/Time 07/18/2017 22:31:58
[2017-07-19] VITALS (9 sets, daily range): BP systolic 141–168; BP diastolic 42–96; PULSE 95–116; RESP 12–20; TEMP 96–97.9; O2SAT 93–100
[2017-07-19 03:33] LABS: AUTOMATED NEUTROPHIL # 2.6 TH/MM3 (1.8-7.7); BASOPHIL % 0.8 % (0.0-2.0); EOSINOPHIL # 0.1 TH/MM3 (0-0.4); EOSINOPHIL % 2.1 % (0.0-4.0); HEMATOCRIT 41.8 % (39.0-51.0); HEMOGLOBIN 13.8 GM/DL (13.0-17.0); LYMPHOCYTE # 0.6 TH/MM3 (1.0-4.8); MEAN CELL VOLUME 88.5 FL (80.0-100.0); MEAN CORPUSCULAR HEMOGLOBIN 29.2 PG (27.0-34.0); MEAN CORPUSCULAR HGB CONC 32.9 % (32.0-36.0); MEAN PLATELET VOLUME 10.2 FL (7.0-11.0); MONOCYTE # 0.6 TH/MM3 (0-0.9); NEUT % 66.1 % (16.0-70.0); PLATELET COUNT 131 TH/MM3 (150-450); RED BLOOD COUNT 4.72 MIL/MM3 (4.50-5.90); RED CELL DISTRIBUTION WIDTH 16.9 % (11.6-17.2)
[2017-07-19 03:47] LABS: INTERNATIONAL NORMALIZED RATIO 1.2 RATIO
[2017-07-19] MEDS: CHLORHEXIDINE GLUCONATE 2 % 1 PACK (2 CLOTHS) TOP SCH (04:00)
[2017-07-19 04:23] LABS: ALBUMIN 3.3 GM/DL (3.4-5.0); BLOOD UREA NITROGEN 95 MG/DL (7-18); GLOMERULAR FILTRATION RATE 5 ML/MIN (>89); GLUCOSE,RANDOM 95 MG/DL (74-106); TOTAL PROTEIN 7.3 GM/DL (6.4-8.2)
[2017-07-19 04:24] LABS: ALKALINE PHOSPHATASE 74 U/L (45-117); ALT (GPT) 15 U/L (12-78); AST (GOT) 26 U/L (15-37); CALCIUM 8.5 MG/DL (8.5-10.1); CHLORIDE 97 MEQ/L (98-107); MAGNESIUM 2.5 MG/DL (1.5-2.5); PHOSPHORUS 8.5 MG/DL (2.5-4.9); SODIUM (NA) 138 MEQ/L (136-145); TOTAL BILIRUBIN ADULT 0.5 MG/DL (0.2-1.0)
[2017-07-19] MEDS: HEPARIN SODIUM - SQ 10,000 UNITS/ML VIAL SQ SCH ×3 (05:36→21:06)
[2017-07-19] MEDS: hydrALAZINE HCL 25 MG TAB PO SCH ×2 (08:40→21:06)
[2017-07-19] MEDS: SODIUM CHLORIDE 0.9% FLUSH 10 ML FLUSH IV FLUSH SCH ×2 (08:40→21:07)
[2017-07-19] MEDS: FERROUS SULFATE 325 MG (65 MG ELEMENTAL IRON) TAB PO SCH ×2 (08:40→17:04)
[2017-07-19] MEDS: ASPIRIN EC 81 MG TABEC PO SCH (08:40)
[2017-07-19] MEDS: FAMOTIDINE 20 MG/2 ML VIAL IV PUSH SCH (08:40)
[2017-07-19] MEDS: SEVELAMER CARBONATE 800 MG TAB PO SCH ×3 (08:40→17:04)
[2017-07-19] MEDS: AMOXICILLIN 875 MG TAB PO SCH (08:40)
[2017-07-19] MEDS: DOCUSATE SODIUM 50 MG/SENNA 8.6 MG TAB PO SCH ×2 (09:00→21:06)
--- NOTE | 2017-07-19 10:49 | HHI.NPPN ---
Subjective General Problems: Anemia Renal Failure: End Stage Renal Disease History of Present Illness Patient is a 61-year-old male with ESRD on hemodialysis Monday, here for evaluation of generalized weakness and missing his last 2 sessions of dialysis. Patient reports that he did not go to dialysis on either Monday or because he felt too weak. His abdomen is distended. Denies any SOB or CP. In the emergency department his potassium was found to be 7.6 with nonspecific EKG changes. He has been admitted to ICU as well as nephrology was consulted for emergent hemodialysis. Dialysis was preformed last night and 3 liters removed. Additional Remarks Patient is resting comfortably on left side. No SOB or edema noted (Skylar Paulino) Review of Systems Respiratory Respiratory Remarks No SOB (Skylar Paulino) Cardiovascular Cardiac Remarks NO CP (Skylar Paulino) Gastrointestinal GI Remarks No abdominal pain (Skylar Paulino) Objective Data Data Vital Signs Date Time Temp Pulse Resp B/P (MAP) Pulse Ox O2 Delivery O2 Flow Rate FiO2 07/19/17 08:00 97.6 100 12 160/90 (113) 99 07/19/17 07:00 99 Nasal Cannula 2.00 07/19/17 07:00 110 07/19/17 04:00 97.8 110 16 151/96 (114) 100 07/19/17 00:00 105 07/19/17 00:00 97.9 109 18 168/88 (114) 99 07/18/17 20:04 95 Nasal Cannula 2.00 07/18/17 20:00 97.9 96 22 147/79 (101) 97 07/18/17 20:00 95 07/18/17 19:00 100 Nasal Cannula 2.00 07/18/17 16:00 98.0 97 16 164/74 (104) 100 07/18/17 15:00 95 07/18/17 12:00 98.3 94 11 155/77 (103) 100 07/18/17 11:28 Nasal Cannula 2.00 (Skylar Paulino) -: 07/19/1725807/19/17258 Imaging Last Impressions Head CT 07/17/172042 Signed Impressions: Service Date/Time: Monday, July 17, 2017 21:50 - CONCLUSION: 1. No acute intracranial abnormalities. Lakhwinder Pringle MD Chest X-Ray 07/17/172042 Signed Impressions: Service Date/Time: Monday, July 17, 2017 20:52 - CONCLUSION: 1. Bilateral effusions, right greater than left slightly increased from comparison exam on May 15. Right effusion has reaccumulated since thoracentesis on May 16. Lakhwinder Pringle MD (GellerSkylar polanco. MELTER LOADER) Physical Exam General Appearance: No Acute Distress, Comfortable, Malnourished (GellermannSkylar M. MELTER LOADER) Pulmonary Resp Exam: Clear Bilaterally, Breath Sounds Equal (GellerSkylar polanco M. MELTER LOADER) Cardiology CV Exam: Normal Sinus Rhythm, Murmur (OrlinlerSkylar polanco M. MELTER LOADER) Gastrointestinal/Abdomen GI Exam: Non-Tender, Bowel Sounds Present (OrlinlerSkylar polanco M. MELTER LOADER) Genitourinary Exam: Flank Non-Tender (Skylar Paulino. MELTER LOADER) Integumentary Skin Exam: Clear, Warm (OrlinlerSkylar polanco. MELTER LOADER) Extremeties Extremities Exam: No Edema (OrlinlerSkylar polanco. MELTER LOADER) Assessment/Plan Problem List: (1) ESRD (end stage renal disease) ICD Codes: N18.6 - End stage renal disease Status: Acute Plan: ESRD T/TH/SAT missed last and Monday Hyperkalemic on admission at 7.6 and emergent dialysis done with 3 liters removed Plan Patient mental status is still impaired Head CT noted Continue Renvela phos 8.5 Dialysis compliance discussed with patient. Potassium WNL Dialysis for tomorrow (2) Pleural effusion ICD Codes: J90 - Pleural effusion, not elsewhere classified Status: Acute (3) Generalized weakness ICD Codes: R53.1 - Weakness Status: Acute (4) Hypertension ICD Codes: I10 - Hypertension Status: Chronic Plan: continue home medications (5) DM (diabetes mellitus) ICD Codes: E11.9 - Type 2 diabetes mellitus without complications Status: Chronic Plan: Maintain blood sugars between 140mg/dl and 180 mg/dl (Skylar Paulino. MELTER LOADER) Problem List: (1) ESRD (end stage renal disease) ICD Codes: N18.6 - End stage renal disease Status: Acute Plan: ESRD T/TH/SAT missed last and Monday Hyperkalemic on admission at 7.6 and emergent dialysis done with 3 liters removed Plan Patient mental status is still impaired Head CT noted Continue Renvela phos 8.5 Dialysis compliance discussed with patient. Potassium WNL Dialysis for tomorrow. Patient seen and examined, agree with above. Told to be compliant with fluid and K intake. (2) Pleural effusion ICD Codes: J90 - Pleural effusion, not elsewhere classified Status: Acute (3) Generalized weakness ICD Codes: R53.1 - Weakness Status: Acute (4) Hypertension ICD Codes: I10 - Hypertension Status: Chronic Plan: continue home medications (5) DM (diabetes mellitus) ICD Codes: E11.9 - Type 2 diabetes mellitus without complications Status: Chronic Plan: Maintain blood sugars between 140mg/dl and 180 mg/dl (Severo Peck MD) Skylar Paulino Jul 19, 2017 10:49 Severo Peck MD Jul 19, 2017 19:22
--- NOTE | 2017-07-19 13:41 | HHI.PR ---
Subjective Remarks The patient was eating lunch. He endorsed confusion. He did not know where he was. He did not know the year. His family was at the bedside and stated that he would be going to dialysis tomorrow. The patient had no acute complaints. Objective Vitals Vital Signs Date Time Temp Pulse Resp B/P (MAP) Pulse Ox O2 Delivery O2 Flow Rate FiO2 07/19/17 12:00 97.7 108 20 141/42 (75) 99 07/19/17 08:00 97.6 100 12 160/90 (113) 99 07/19/17 07:00 99 Nasal Cannula 2.00 07/19/17 07:00 110 07/19/17 04:00 97.8 110 16 151/96 (114) 100 07/19/17 00:00 105 07/19/17 00:00 97.9 109 18 168/88 (114) 99 07/18/17 20:04 95 Nasal Cannula 2.00 07/18/17 20:00 97.9 96 22 147/79 (101) 97 07/18/17 20:00 95 07/18/17 19:00 100 Nasal Cannula 2.00 07/18/17 16:00 98.0 97 16 164/74 (104) 100 07/18/17 15:00 95 I/O 07/18/17 07/18/17 07/18/17 07/19/17 07/19/17 07/19/17 07:00 15:00 23:00 07:00 15:00 23:00 Intake Total 480 ml 300 ml Output Total 3000 ml 3000 ml Balance -3000 ml -2520 ml 300 ml Intake Oral 480 ml 300 ml Output Urine Total 0 ml Hemodialysis 3000 ml 3000 ml # Voids 3 # Bowel Movements 0 3 Result Diagram: 07/19/179 07/19/179 Imaging Last Impressions Head CT 07/17/172042 Signed Impressions: Service Date/Time: Monday, July 17, 2017 21:50 - CONCLUSION: 1. No acute intracranial abnormalities. Lakhwinder Pringle MD Chest X-Ray 07/17/172042 Signed Impressions: Service Date/Time: Monday, July 17, 2017 20:52 - CONCLUSION: 1. Bilateral effusions, right greater than left slightly increased from comparison exam on May 15. Right effusion has reaccumulated since thoracentesis on May 16. Lakhwinder Pringle MD Objective Remarks GENERAL: Well-nourished, well-developed patient. SKIN: Warm and dry. HEAD: Normocephalic. EYES: No scleral icterus. No injection or drainage. NECK: Supple, trachea midline. No JVD or lymphadenopathy. CARDIOVASCULAR: Regular rate and rhythm without murmurs, gallops, or rubs. RESPIRATORY: Decreased breath sounds at the right base. GASTROINTESTINAL: Abdomen soft, non-tender, nondistended. MUSCULOSKELETAL: No cyanosis, or edema. BACK: Nontender without obvious deformity. NEURO: The patient is confused. Moves upper and lower extremities spontaneously. Medications and IVs Current Medications Medications (Trade) Dose Ordered Sig/Crispin Route Start Time Stop Time Status Last Admin (NS Flush) 2 ml UNSCH PRN IVF 07/17/17 20:45 (Trimox) 875 mg BID PO 07/18/17 09:00 07/19/17 08:40 (Ecotrin Ec) 81 mg DAILY PO 07/18/17 09:00 07/19/17 08:40 (Ferrous Sulfate) 325 mg BIDPC PO 07/18/17 09:00 07/19/17 08:40 (Apresoline) 25 mg BID PO 07/18/17 09:00 07/19/17 08:40 (Renvela) 1,600 mg TID PO 07/18/17 09:00 07/19/17 13:16 (NS Flush) 2 ml UNSCH PRN IV FLUSH 07/18/17 01:15 (NS Flush) 2 ml BID IV FLUSH 07/18/17 09:00 07/19/17 08:40 (Tylenol) 650 mg Q6H PRN PO 07/18/17 01:15 (Pepcid Inj) 10 mg Q12HR IV PUSH 07/18/17 09:00 07/19/17 08:40 (Zofran Inj) 4 mg Q6H PRN IV PUSH 07/18/17 01:15 (Restoril) 15 mg HS PRN PO 07/18/17 01:15 (Duoneb Neb) 1 ampule Q2HR NEB PRN INH 07/18/17 01:15 (Heparin Inj) 5,000 units Q8H SQ 07/18/17 06:00 07/19/17 13:16 Miscellaneous Information 1 Q361D XX 07/18/17 01:15 (Chlorhexidine 2% Cloth) 3 pack Taper DAILY@04 TOP 07/18/17 04:00 07/14/18 03:59 (Chlorhexidine 2% Cloth) 3 pack UNSCH PRN TOP 07/18/17 01:15 (Ayla-Colace) 1 tab BID PO 07/18/17 09:00 07/18/17 08:16 (Milk Of Magnesia Liq) 30 ml Q12H PRN PO 07/18/17 01:15 (Senokot) 17.2 mg Q12H PRN PO 07/18/17 01:15 (Dulcolax Supp) 10 mg DAILY PRN RECTAL 07/18/17 01:15 (Lactulose Liq) 30 ml DAILY PRN PO 07/18/17 01:15 Sodium Chloride 1,000 ml @ 0 mls/hr Q0M PRN OTHER 07/18/17 09:35 (Heparin Inj) 8,000 units UNSCH PRN IV FLUSH 07/18/17 09:45 Sodium Chloride 1,000 ml @ 200 mls/hr Q5H PRN IV 07/18/17 09:35 Sodium Chloride 1,000 ml @ 0 mls/hr Q0M PRN OTHER 07/18/17 09:35 (Mannitol Inj) 12.5 gm UNSCH PRN IV 07/18/17 09:45 Albumin Human 100 ml @ 60 mls/hr UNSCH PRN IV 07/18/17 09:45 (NS Flush) 5 ml UNSCH PRN IV FLUSH 07/18/17 09:45 (Heparin Inj) UNSCH PRN .XX 07/18/17 09:45 (Gentamicin Inj) 20 mg UNSCH PRN OTHER 07/18/17 09:45 (Zofran Inj) 4 mg UNSCH PRN IV PUSH 07/18/17 09:45 (Tylenol) 650 mg UNSCH PRN PO 07/18/17 09:45 (Benadryl) 25 mg UNSCH PRN PO 07/18/17 09:45 (Nitrostat Sl) 0.4 mg UNSCH PRN SL 07/18/17 09:45 (Catapres) 0.1 mg UNSCH PRN PO 07/18/17 09:45 (Gelfoam 12 Mm/7 Mm Top) 1 foam UNSCH PRN TOP 07/18/17 09:45 A/P Assessment and Plan End-stage renal disease With hyperkalemia due to noncompliance with HD. Nephrology consult appreciated. S/p emergent hemodialysis. - Further management per nephrology. Due for dialysis tomorrow. - Renvela. Acute metabolic encephalopathy Secondary to elevated BUN. CT of the head was unremarkable. - Continue dialysis per nephrology. - Neuro checks. Pleural effusions Noted on CXR. - dialysis. - oxygen and nebs as needed. Hypertension Blood pressure has been elevated. - Hydralazine. Diabetes mellitus Last hemoglobin A1c was 6%. - insulin sliding scale as needed. PPx: Heparin Discharge Planning Transfer to the floor Surendra Hassan DO Jul 19, 2017 13:41
[2017-07-19] MEDS: INSULIN ASPART SUPPLEMENTAL SCALE SQ SCH ×2 (16:40→21:00)
[2017-07-19] MEDS: FAMOTIDINE 20 MG TAB PO SCH (21:06)
[2017-07-20] VITALS (8 sets, daily range): BP systolic 149–166; BP diastolic 79–98; PULSE 93–111; RESP 18–20; TEMP 97.4–98.2; O2SAT 92–98
[2017-07-20] MEDS: CHLORHEXIDINE GLUCONATE 2 % 1 PACK (2 CLOTHS) TOP SCH (04:00)
[2017-07-20] MEDS: HEPARIN SODIUM - SQ 10,000 UNITS/ML VIAL SQ SCH ×2 (06:06→13:08)
[2017-07-20 07:34] LABS: BICARBONATE 25.1 MEQ/L (21.0-32.0); CALCIUM 8.6 MG/DL (8.5-10.1); MAGNESIUM 2.6 MG/DL (1.5-2.5)
[2017-07-20 07:56] LABS: CREATININE 12.89 MG/DL (0.60-1.30)
[2017-07-20] MEDS: INSULIN ASPART SUPPLEMENTAL SCALE SQ SCH ×3 (08:00→17:00)
[2017-07-20] MEDS: SEVELAMER CARBONATE 800 MG TAB PO SCH ×3 (09:00→17:23)
--- NOTE | 2017-07-20 10:11 | HHI.NPPN ---
Subjective General Problems: Anemia Renal Failure: End Stage Renal Disease History of Present Illness Patient is a 61-year-old male with ESRD on hemodialysis Monday, here for evaluation of generalized weakness and missing his last 2 sessions of dialysis. Patient reports that he did not go to dialysis on either Monday or because he felt too weak. His abdomen is distended. Denies any SOB or CP. In the emergency department his potassium was found to be 7.6 with nonspecific EKG changes. He has been admitted to ICU as well as nephrology was consulted for emergent hemodialysis. Dialysis was preformed last night and 3 liters removed. Additional Remarks Patient is resting comfortably on left side. No SOB or edema noted. Seen during dialysis (Skylar Paulino) Review of Systems Respiratory Respiratory Remarks No SOB (Skylar Paulino) Cardiovascular Cardiac Remarks NO CP (Skylar Paulino) Gastrointestinal GI Remarks No abdominal pain (Skylar Paulino) Objective Data Data Vital Signs Date Time Temp Pulse Resp B/P (MAP) Pulse Ox O2 Delivery O2 Flow Rate FiO2 07/20/17 08:02 98 07/20/17 08:01 97.4 98 19 161/98 (119) 98 07/20/17 08:00 Room Air 07/20/17 05:01 93 07/20/17 04:00 99 07/20/17 04:00 Room Air 07/20/17 04:00 97.7 99 20 166/97 (120) 92 07/20/17 00:00 111 07/20/17 00:00 Room Air 07/19/17 23:00 97.3 116 18 152/94 (113) 96 07/19/17 20:00 Room Air 07/19/17 20:00 96.0 109 20 142/76 (98) 93 07/19/17 16:23 97.2 95 18 161/94 (116) 98 07/19/17 15:00 107 07/19/17 12:00 97.7 108 20 141/42 (75) 99 (Syklar Paulino) -: 07/19/17 0259 07/20/17 0630 Physical Exam General Appearance: No Acute Distress, Comfortable, Malnourished (Skylar Paulino) Pulmonary Resp Exam: Clear Bilaterally, Breath Sounds Equal (Skylar Paulino) Cardiology CV Exam: Normal Sinus Rhythm, Murmur (Skylar Paulino) Gastrointestinal/Abdomen GI Exam: Non-Tender, Bowel Sounds Present (Skylar Paulino) Genitourinary Exam: Flank Non-Tender (Skylar Paulino) Integumentary Skin Exam: Clear, Warm (Skylar Paulino) Extremeties Extremities Exam: No Edema (Skylar Paulino) Assessment/Plan Problem List: (1) ESRD (end stage renal disease) ICD Codes: N18.6 - End stage renal disease Status: Acute Plan: ESRD T/TH/SAT missed last and Monday Hyperkalemic on admission at 7.6 and emergent dialysis done with 3 liters removed Plan HTN hydralazine increased Potassium WNL Continue Renvela Potassium WNL Seen during dialysis (2) Pleural effusion ICD Codes: J90 - Pleural effusion, not elsewhere classified Status: Acute (3) Generalized weakness ICD Codes: R53.1 - Weakness Status: Acute (4) Hypertension ICD Codes: I10 - Hypertension Status: Chronic Plan: continue home medications (5) DM (diabetes mellitus) ICD Codes: E11.9 - Type 2 diabetes mellitus without complications Status: Chronic Plan: Maintain blood sugars between 140mg/dl and 180 mg/dl (Skylar Paulino) Problem List: (1) ESRD (end stage renal disease) ICD Codes: N18.6 - End stage renal disease Status: Acute Plan: ESRD T/TH/SAT missed last and Monday Hyperkalemic on admission at 7.6 and emergent dialysis done with 3 liters removed Plan HTN hydralazine increased Potassium WNL Continue Renvela Potassium WNL Seen during dialysis Patient seen and examined, agree with above. Patient for discharge, told to watch fluid and K intake. Also told to be compliant with HD. (2) Pleural effusion ICD Codes: J90 - Pleural effusion, not elsewhere classified Status: Acute (3) Generalized weakness ICD Codes: R53.1 - Weakness Status: Acute (4) Hypertension ICD Codes: I10 - Hypertension Status: Chronic Plan: continue home medications (5) DM (diabetes mellitus) ICD Codes: E11.9 - Type 2 diabetes mellitus without complications Status: Chronic Plan: Maintain blood sugars between 140mg/dl and 180 mg/dl (Severo Peck MD) Skylar Paulino Jul 20, 2017 10:11 Severo Peck MD Jul 20, 2017 21:37
--- NOTE | 2017-07-20 11:31 | HHI.FF ---
Face to Face Verification Diagnosis: (1) ESRD on hemodialysis (2) Hyperkalemia, diminished renal excretion Physical Therapy Order: Evaluate and Treat, Improve ambulation, Strength and gait training Home Health Nursing Order: Medical education Signs/symptoms of disease process Medication education-adverse effect Nursing assessment with vital signs I have seen patient Tenzin Bloom on 07/20/17. My clinical findings support the need for the requested home health care services because: Deconditioned w/ increased weakness Need for psychosocial assistance High risk of falls Infection w/ risk of complications I certify that my clinical findings support that this patient is homebound because: Unsteady gait/balance Unsafe to leave home unassisted Need for psychosocial assistance Unable to use public transportation Mandy Bryan DO Jul 20, 2017 11:31 am
[2017-07-20] MEDS: DOCUSATE SODIUM 50 MG/SENNA 8.6 MG TAB PO SCH (13:08)
[2017-07-20] MEDS: FAMOTIDINE 20 MG TAB PO SCH (13:08)
[2017-07-20] MEDS: SODIUM CHLORIDE 0.9% FLUSH 10 ML FLUSH IV FLUSH SCH (13:08)
[2017-07-20] MEDS: ASPIRIN EC 81 MG TABEC PO SCH (13:08)
[2017-07-20] MEDS: FERROUS SULFATE 325 MG (65 MG ELEMENTAL IRON) TAB PO SCH ×2 (13:08→17:23)
--- NOTE | 2017-07-20 14:54 | HHI.DS ---
Discharge Summary Admission Date Jul 18, 2017 at 1:14 am Discharge Date: Jul 20, 2017 Admitting Diagnosis hyperkalemia, ESRD, pleural effusions (1) Hypertension ICD Code: I10 - Hypertension Status: Chronic (2) ESRD (end stage renal disease) ICD Code: N18.6 - End stage renal disease Status: Acute Procedures Patient received Dialysis while in the hospital. Brief History - From Admission 61-year-old male with ESRD on hemodialysis Monday, here for evaluation of generalized weakness and missing his last 2 sessions of dialysis. Patient reports that he did not go to dialysis on either Monday or because he felt too weak. He has not had any fevers. He has noted some leg swelling and shortness of breath. No chest pain. He has been having constipation, otherwise no abdominal pain. In the emergency department his potassium was found to be 7.6 with nonspecific EKG changes. He has been admitted to ICU as well as nephrology was consulted for emergent hemodialysis. CBC/BMP: 07/19/17 0259 07/20/17 0630 Significant Findings Laboratory Tests Test 07/17/17 21:25 07/17/17 21:28 07/17/17 22:58 07/18/17 00:29 Ammonia LESS THAN 10 MCMOL/L Prothrombin Time 12.0 SEC (9.8-11.6) Red Cell Distribution Width 17.9 % (11.6-17.2) Neutrophils (%) (Auto) 77.8 % (16.0-70.0) Monocytes (%) (Auto) 11.5 % (0.0-8.0) Lymphocytes # (Auto) 0.5 TH/MM3 (1.0-4.8) Platelet Morphology Comment ENLARGED (NORMAL) Ovalocytes 1+ (NORMAL) [place] Cells 1+ (NORMAL) Blood Urea Nitrogen 131 MG/DL (7-18) Creatinine 15.83 MG/DL (0.60-1.30) Sodium Level 133 MEQ/L (136-145) Potassium Level 7.6 MEQ/L (3.5-5.1) Chloride Level 94 MEQ/L (98-107) Estimat Glomerular Filtration Rate 4 ML/MIN (>89) Test 07/18/17 02:25 07/18/17 09:15 07/18/17 11:42 07/19/17 02:59 Blood Urea Nitrogen 86 MG/DL (7-18) 95 MG/DL (7-18) Creatinine 11.07 MG/DL (0.60-1.30) 12.10 MG/DL (0.60-1.30) Random Glucose 53 MG/DL (74-106) Albumin 3.3 GM/DL (3.4-5.0) 3.3 GM/DL (3.4-5.0) Phosphorus Level 9.0 MG/DL (2.5-4.9) 8.5 MG/DL (2.5-4.9) Estimat Glomerular Filtration Rate 6 ML/MIN (>89) 5 ML/MIN (>89) Platelet Count 129 TH/MM3 (150-450) 131 TH/MM3 (150-450) Monocytes (%) (Auto) 15.0 % (0.0-8.0) Lymphocytes # (Auto) 0.6 TH/MM3 (1.0-4.8) Prothrombin Time 12.0 SEC (9.8-11.6) Activated Partial Thromboplast Time 30.2 SEC (24.3-30.1) Chloride Level 97 MEQ/L (98-107) Test 07/20/17 06:30 Blood Urea Nitrogen 106 MG/DL (7-18) Creatinine 12.89 MG/DL (0.60-1.30) Random Glucose 121 MG/DL (74-106) Magnesium Level 2.6 MG/DL (1.5-2.5) Estimat Glomerular Filtration Rate 5 ML/MIN (>89) Imaging Last Impressions Head CT 07/17/172042 Signed Impressions: Service Date/Time: Monday, July 17, 2017 21:50 - CONCLUSION: 1. No acute intracranial abnormalities. Lakhwinder Pringle MD Chest X-Ray 07/17/172042 Signed Impressions: Service Date/Time: Monday, July 17, 2017 20:52 - CONCLUSION: 1. Bilateral effusions, right greater than left slightly increased from comparison exam on May 15. Right effusion has reaccumulated since thoracentesis on May 16. Lakhwinder Pringle MD PE at Discharge GENERAL: Well-nourished, well-developed patient. SKIN: Warm and dry. HEAD: Normocephalic. EYES: No scleral icterus. No injection or drainage. NECK: Supple, trachea midline. No JVD or lymphadenopathy. CARDIOVASCULAR: Regular rate and rhythm without murmurs, gallops, or rubs. RESPIRATORY: Decreased breath sounds at the right base. GASTROINTESTINAL: Abdomen soft, non-tender, nondistended. MUSCULOSKELETAL: No cyanosis, or edema. BACK: Nontender without obvious deformity. NEURO: The patient is confused. Moves upper and lower extremities spontaneously. Pt update on day of discharge Patient is currently doing well. No acute concerns. He received dialysis today. Hospital Course Mr. Bloom is a 61-year-old patient with a history of ESRD on hemodialysis Monday and Monday who presented to the emergency department on 2017 due to generalized weakness. He missed 2 dialysis treatments because he felt very weak. ED workup indicated serum potassium 7.6 with nonspecific EKG changes. He underwent emergent dialysis. Nephrology followed him while patient was in the hospital. He received dialysis again on the day of discharge , 07/20/2017. His potassium was corrected. Nephrology cleared for discharge. Physical therapy recommended home with home health. Patient was subsequently discharged home with home health. He was encouraged to keep his dialysis treatments as scheduled. Pt Condition on Discharge: Good Discharge Disposition: Disch w/ Home Health Serv Discharge Time: <= 30 minutes Discharge Instructions DIET: Follow Instructions for: Heart Healthy Diet, Renal Failure Diet Activities you can perform: Regular-No Restrictions Follow up Referrals: PCP Follow-up - 1 Week P[facility] Continued Medications: Aspirin DR (Aspirin Adult Low Strength) 81 Mg Tabdr 81 MG PO DAILY, TAB Ferrous Sulfate (Ferrous Sulfate) 325 Mg (65 Mg Iron) Tablet 324 MG PO BIDPC for Nutritional Supplement, #60 TAB 0 Refills Hydralazine HCl (Hydralazine HCl) 25 Mg Tablet 25 MG PO BID for Blood Pressure Management, #60 TAB 0 Refills Sevelamer Carbonate (Renvela) 800 Mg Tab 1600 MG PO TID for Control phosphorous levels, TAB 0 Refills Discontinued Medications: Amoxicillin (Amoxicillin) 875 Mg Tab 875 MG PO BID for Infection, TAB 0 Refills Mandy Bryan DO Jul 20, 2017 14:54
[2017-07-20] MEDS ORDERED: hydrALAZINE HCL 50 MG TAB PO SCH (21:00)
== END 2017-07-20 19:21 | disposition home health service (06) | DRG 683 ==
LOC: NEPD 20:12 → NEDA 07-18 01:14 → N03A 07-18 02:18 → N04B 07-19 16:05
PROVIDERS: ADMIT Hospitalist; ATTEND Hospitalist
PROC: 5A1D70Z Performance of Urinary Filtration, Intermittent, Less than 6 Hours Per Day (ICD-10-PCS; principal; 2017-07-18)
DX: N18.6 End stage renal disease (principal); I13.2 Hypertensive heart and chronic kidney disease with heart failure and with stage 5 chronic kidney disease, or end stage renal disease; J90 Pleural effusion, not elsewhere classified; I42.9 Cardiomyopathy, unspecified; E87.5 Hyperkalemia; E11.22 Type 2 diabetes mellitus with diabetic chronic kidney disease; R53.1 Weakness; K59.00 Constipation, unspecified; R60.0 Localized edema; F43.10 Post-traumatic stress disorder, unspecified; E78.00 Pure hypercholesterolemia, unspecified; D63.1 Anemia in chronic kidney disease; I25.10 Atherosclerotic heart disease of native coronary artery without angina pectoris; B19.20 Unspecified viral hepatitis C without hepatic coma; F17.210 Nicotine dependence, cigarettes, uncomplicated; F14.10 Cocaine abuse, uncomplicated; Z99.2 Dependence on renal dialysis; I25.2 Old myocardial infarction; Z91.15 Patient's noncompliance with renal dialysis; Z79.4 Long term (current) use of insulin; Z86.73 Personal history of transient ischemic attack (TIA), and cerebral infarction without residual deficits
CPT/HCPCS: 70450; 71045; 80048; 80053; 82140; 82550; 82948; 83735; 84100; 85025; 85027; 85610; 85730; 87641; 87804; 90935; 93005; 99285; J0610; J1644; J1815

== ENCOUNTER 2017-09-15 11:57 | Inpatient (IN) | payer OTHER ==
[~2017-09-15] VITALS: Ht 175.3 cm; Wt 63.0 kg
[~2017-09-15 11:57] MED LIST changes: -AMOX875T PO
[2017-09-15 12:43] VITALS: BP 130/84; PULSE 106; RESP 26; TEMP 98; O2SAT 100
[2017-09-15] MEDS ORDERED: SODIUM CHLORIDE 0.9% FLUSH 10 ML FLUSH IVF PRN (13:00)
--- NOTE | 2017-09-15 13:07 | PD ---
HPI Chief Complaint: Respiratory Symptoms Time Seen by Provider: 12:46 Travel History International Travel<30 days: No Contact w/Intl Traveler<30days: No Traveled to known affect area: No History of Present Illness HPI 61-year-old male presents with shortness of breath over the past couple weeks. He states he went to his primary at the [facility] and they referred him here after his lungs sounded bad. He wears 2 L of oxygen all the time and the ambulance team states that his lungs are clear and he was with normal saturations on room air. The patient denies any fever, pain or other concurrent complaints. He states he gets dialysis 3 times a week and got it last yesterday. He states he feels worse when he moves around. He denies other modifying factors. Quality is sometimes gets hard to catch breath. Severity is moderate. PFSH Past Medical History Hx Anticoagulant Therapy: Yes (aspirin 81) Asthma: No Autoimmune Disease: No Blood Disorders: No Anxiety: Yes (PTSD) Depression: No Heart Rhythm Problems: No Cancer: No Cardiovascular Problems: Yes High Cholesterol: Yes Chemotherapy: No Chest Pain: No Congestive Heart Failure: No COPD: No Cerebrovascular Accident: Yes Coronary Artery Disease: Yes Diabetes: Yes Patient Takes Glucophage: No Dialysis: Yes (//MON) Diminished Hearing: No Endocrine: No Gastrointestinal Disorders: No GERD: No Genitourinary: Yes (oliguric) Hepatitis: Yes (HEP C) Hiatal Hernia: No Hypertension: Yes Immune Disorder: No Implanted Vascular Access Dvce: Yes Musculoskeletal: Yes Neurologic: No Psychiatric: No Reproductive: No Respiratory: No Immunizations Current: Yes Myocardial Infarction: Yes Radiation Therapy: No Renal Failure: Yes Sleep Apnea: No Thyroid Disease: No Ulcer: No ?: Not Past Surgical History AICD: No Arteriovenous Shunt: Yes (LEFT FA) Body Medical Devices: FISTULA Endocrine Surgery: Yes (FISTULA LEFT ARM) Genitourinary Surgery: Yes (SCROTAL SX) Insulin Pump: No Joint Replacement: No Pacemaker: No Other Surgery: Yes (FISTULA LEFT ARM) Social History Alcohol Use: No Tobacco Use: Yes (2 CIGS DAILY) Substance Use: No Allergies-Medications (Allergen,Severity, Reaction): Coded Allergies: Sulfa (Sulfonamide Antibiotics) (Unverified Allergy, Severe, Rash, ) ibuprofen (Unverified Allergy, Severe, 05/15/17) *MDRO Multi-Drug Resistant Organism (Verified Adverse Reaction, Unknown, 05/15/17) 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 HEAD: Atraumatic. Normocephalic. EYES: Pupils equal and round. No scleral icterus. No injection or drainage. ENT: No nasal bleeding or discharge. Mucous membranes pink and moist. NECK: Trachea midline. CARDIOVASCULAR: Regular rate and rhythm. RESPIRATORY: No accessory muscle use. Clear to auscultation. Breath sounds equal bilaterally. GASTROINTESTINAL: Abdomen soft, non-tender, nondistended. MUSCULOSKELETAL: No obvious deformities. No clubbing. No cyanosis. NEUROLOGICAL: Awake and alert. Moves all extremities. Normal speech. Data Data Last Documented VS Vital Signs Date Time Temp Pulse Resp B/P (MAP) Pulse Ox O2 Delivery O2 Flow Rate FiO2 09/15/17 12:51 98 Nasal Cannula 2.00 09/15/17 12:43 98.0 106 26 130/84 (99) Orders Orders Electrocardiogram (09/15/17 13:00) Basic Metabolic Panel (Bmp) (09/15/17 13:00) B-Type Natriuretic Peptide (09/15/17 13:00) Complete Blood Count With Diff (09/15/17 13:00) Prothrombin Time / Inr (Pt) (09/15/17 13:00) Act Partial Throm Time (Ptt) (09/15/17 13:00) Chest, Single Ap (09/15/17 13:00) Ecg Monitoring (09/15/17 13:00) Bilateral Bp Monitoring (09/15/17 13:00) Iv Access Insert/Monitor (09/15/17 13:00) Oximetry (09/15/17 13:00) Sodium Chloride 0.9% Flush (Ns Flush) (09/15/17 13:00) Furosemide Inj (Lasix Inj) (09/15/17 14:15) Ckmb (Isoenzyme) Profile (09/15/17 14:34) Troponin I (09/15/17 14:34) Admit Order (Ed Use Only) (09/15/17 15:36) Comprehensive Metabolic Panel (09/16/17 06:00) Free Thyroxine (T4) (09/16/17 06:00) Hemoglobin (Hgb) A1c (09/16/17 06:00) Magnesium (Mg) (09/16/17 06:00) Phosphorus (Po4) (09/16/17 06:00) Thyroid Stimulating Hormone (09/16/17 06:00) Complete Blood Count With Diff (09/16/17 06:00) Aspirin Ec (Ecotrin Ec) (09/16/17 09:00) Ferrous Sulfate (Ferrous Sulfate) (09/15/17 18:00) Hydralazine (Apresoline) (09/15/17 21:00) Sevelamer (Renvela) (09/15/17 18:00) CKMB (09/15/17 13:09) CKMB% (09/15/17 13:09) Consult Nephrology (09/15/17 ) Place In Observation (09/15/17 ) Code Status (09/15/17 15:42) Vital Signs (Adult) Q4H (09/15/17 15:42) Activity Oob Ad Kristina (09/15/17 15:42) Tallow Refiner / Telemetry .CONTINUOUS (09/15/17 15:42) Intake + Output NUNO.QSHIFT (09/15/17 15:42) Diet Renal (09/15/17 Dinner) Sodium Chloride 0.9% Flush (Ns Flush) (09/15/17 15:45) Sodium Chloride 0.9% Flush (Ns Flush) (09/15/17 21:00) Acetaminophen (Tylenol) (09/15/17 15:45) Ondansetron Inj (Zofran Inj) (09/15/17 15:45) Metoclopramide Inj (Reglan Inj) (09/15/17 15:45) Creatine Kinase (Cpk) (09/15/17 15:42) Creatine Kinase (Cpk) (09/15/17 21:42) Troponin I (09/15/17 15:42) Troponin I (09/15/17 21:42) Electrocardiogram (09/15/17 15:42) Electrocardiogram (09/15/17 21:42) Resp Oxygen Pedro C Titrat 1-4 L (09/15/17 ) Pt Request For Service (09/15/17 15:42) Ot Request For Service (09/15/17 15:42) Case Management Consult (09/15/17 15:42) Heparin Inj (Heparin Inj) (09/15/17 15:45) Scd Bilateral/Knee High NUNO.BID (09/15/17 15:42) Acetaminophen (Tylenol) (09/15/17 15:45) Oxycodone-Acetamin 5-325 Mg (Percocet (09/15/17 15:45) Oxycodone-Acetamin 10-325 Mg (Percocet 1 (09/15/17 15:45) Morphine Inj (Morphine Inj) (09/15/17 15:45) Morphine Inj (Morphine Inj) (09/15/17 15:45) Naloxone Inj (Narcan Inj) (09/15/17 15:45) Docusate Sodium-Senna (Ayla-Colace) (09/15/17 21:00) Magnesium Hydroxide Liq (Milk Of Magnesi (09/15/17 15:45) Sennosides (Senokot) (09/15/17 15:45) Bisacodyl Supp (Dulcolax Supp) (09/15/17 15:45) Lactulose Liq (Lactulose Liq) (09/15/17 15:45) (Hub Use Only)In Phy Cons/Ref (09/15/17 ) Labs Laboratory Tests Test 09/15/17 13:09 White Blood Count 3.7 TH/MM3 Red Blood Count 4.02 MIL/MM3 Hemoglobin 12.0 GM/DL Hematocrit 36.2 % Mean Corpuscular Volume 90.2 FL Mean Corpuscular Hemoglobin 29.9 PG Mean Corpuscular Hemoglobin Concent 33.2 % Red Cell Distribution Width 18.7 % Platelet Count 125 TH/MM3 Mean Platelet Volume 10.7 FL Neutrophils (%) (Auto) 60.9 % Lymphocytes (%) (Auto) 22.7 % Monocytes (%) (Auto) 13.5 % Eosinophils (%) (Auto) 1.7 % Basophils (%) (Auto) 1.2 % Neutrophils # (Auto) 2.2 TH/MM3 Lymphocytes # (Auto) 0.8 TH/MM3 Monocytes # (Auto) 0.5 TH/MM3 Eosinophils # (Auto) 0.1 TH/MM3 Basophils # (Auto) 0.0 TH/MM3 CBC Comment DIFF FINAL Differential Comment Prothrombin Time 11.5 SEC Prothromb Time International Ratio 1.1 RATIO Activated Partial Thromboplast Time 28.2 SEC Blood Urea Nitrogen 34 MG/DL Creatinine 5.28 MG/DL Random Glucose 72 MG/DL Calcium Level 9.0 MG/DL Sodium Level 140 MEQ/L Potassium Level 5.0 MEQ/L Chloride Level 103 MEQ/L Carbon Dioxide Level 28.8 MEQ/L Anion Gap 8 MEQ/L Estimat Glomerular Filtration Rate 13 ML/MIN Total Creatine Kinase 115 U/L Creatine Kinase MB 3.0 NG/ML Troponin I 0.11 NG/ML B-Type Natriuretic Peptide GREATER THAN 5000 PG/ML MDM Medical Decision Making Medical Screen Exam Complete: Yes Emergency Medical Condition: Yes Medical Record Reviewed: Yes (Past history confirmed) Interpretation(s) CBC & BMP Diagram 09/15/17 13:09 Calcium Level 9.0 Last 24 hours Impressions Chest X-Ray 09/15/17 1300 Signed Impressions: Service Date/Time: Friday, September 15, 2017 13:42 - CONCLUSION: 1. Stable right pleural effusion. 2. Moderate pulmonary vascular congestion. 3. Cardiomegaly. Enzo Price MD Differential Diagnosis Anemia, fluid overload, electrolyte abnormality Narrative Course will check blood work, chest x-ray and reevaluate Chest x-ray snows CHF findings and BNP is significantly elevated. Patient still urinates some so we will try Lasix but he will likely need additional dialysis to help remove the fluid. Patient has mild bump in his troponin that will need to be monitored to see if this trends higher but likely is related to his underlying renal issues and CHF. Physician Communication Physician Communication dr gonsalez agrees to admit Diagnosis Primary Impression: CHF exacerbation Qualified Codes: I50.9 - Heart failure, unspecified Additional Impression: ESRD on dialysis Admitting Information Admitting Physician Requests: Observation Gilma Vargas MD Sep 15, 2017 13:07
[2017-09-15 13:31] LABS: AUTOMATED NEUTROPHIL # 2.2 TH/MM3 (1.8-7.7); BASOPHIL % 1.2 % (0.0-2.0); EOSINOPHIL # 0.1 TH/MM3 (0-0.4); EOSINOPHIL % 1.7 % (0.0-4.0); HEMATOCRIT 36.2 % (39.0-51.0); LYMPH % 22.7 % (9.0-44.0); LYMPHOCYTE # 0.8 TH/MM3 (1.0-4.8); MEAN CELL VOLUME 90.2 FL (80.0-100.0); MEAN CORPUSCULAR HEMOGLOBIN 29.9 PG (27.0-34.0); MEAN CORPUSCULAR HGB CONC 33.2 % (32.0-36.0); MEAN PLATELET VOLUME 10.7 FL (7.0-11.0); MONO % 13.5 % (0.0-8.0); MONOCYTE # 0.5 TH/MM3 (0-0.9); NEUT % 60.9 % (16.0-70.0); PLATELET COUNT 125 TH/MM3 (150-450); RED BLOOD COUNT 4.02 MIL/MM3 (4.50-5.90); RED CELL DISTRIBUTION WIDTH 18.7 % (11.6-17.2); WHITE BLOOD COUNT 3.7 TH/MM3 (4.0-11.0)
[2017-09-15 13:43] LABS: INTERNATIONAL NORMALIZED RATIO 1.1 RATIO; PROTHROMBIN TIME - PATIENT 11.5 SEC (9.8-11.6)
[2017-09-15 13:50] LABS: BICARBONATE 28.8 MEQ/L (21.0-32.0); CREATININE 5.28 MG/DL (0.60-1.30)
[2017-09-15] MEDS ORDERED: FUROSEMIDE 40 MG/4 ML VIAL IV PUSH ONE (14:15)
--- NOTE | 2017-09-15 14:24 | RADRPT ---
EXAM DATE/TIME: 09/15/2017 13:42 [facility] COMPARISON: CHEST SINGLE AP, July 17, 2017, 20:52. INDICATIONS : Shortness of breath. MEDICAL HISTORY : Cardiovascular disease. Hypertension SURGICAL HISTORY : None. ENCOUNTER: Initial ACUITY: 1 day PAIN SCORE: 0/10 LOCATION: Bilateral chest FINDINGS: There is a stable right pleural effusion. The heart is significantly enlarged. Bilateral pulmonary in filtrates are noted consistent with probable moderate pulmonary vascular congestion. CONCLUSION: 1. Stable right pleural effusion. 2. Moderate pulmonary vascular congestion. 3. Cardiomegaly. Enzo Price MD on September 15, 2017 at 14:19 Board Certified Radiologist. This report was verified electronically.
[2017-09-15 15:38] LABS: TROPONIN I 0.11 NG/ML (0.02-0.05)
[2017-09-15] MEDS ORDERED: MORPHINE SULFATE 2 MG/ML SYRINGE IV PUSH PRN ×2 (15:45)
[2017-09-15] MEDS ORDERED: METOCLOPRAMIDE HCL 10 MG/2 ML VIAL IV PUSH PRN (15:45)
[2017-09-15] MEDS ORDERED: LACTULOSE SYRUP 20 GM/30 ML CUP PO PRN (15:45)
[2017-09-15] MEDS ORDERED: SODIUM CHLORIDE 0.9% FLUSH 10 ML FLUSH IV FLUSH PRN ×2 (15:45→22:30)
[2017-09-15] MEDS ORDERED: ACETAMINOPHEN 325 MG TAB PO PRN ×3 (15:45→22:30)
[2017-09-15] MEDS ORDERED: ONDANSETRON HCL 4 MG/2 ML VIAL IVP PRN (15:45)
[2017-09-15] MEDS ORDERED: BISACODYL 10 MG SUPP RECTAL PRN (15:45)
[2017-09-15] MEDS ORDERED: MAGNESIUM HYDROXIDE SUSP 30 ML CUP PO PRN (15:45)
[2017-09-15] MEDS ORDERED: oxyCODONE/ACETAMINOPHEN 5 MG/325 MG TAB PO PRN (15:45)
[2017-09-15] MEDS ORDERED: SENNOSIDES 8.6 MG TAB PO PRN (15:45)
[2017-09-15] MEDS ORDERED: NALOXONE HCL 0.4 MG/ML AMP IV PUSH PRN (15:45)
[2017-09-15] MEDS ORDERED: oxyCODONE/ACETAMINOPHEN 10 MG/325 MG TAB PO PRN (15:45)
[2017-09-15 17:10] VITALS: BP 116/76; PULSE 101; RESP 18; TEMP 97.8; O2SAT 97
[2017-09-15] MEDS ORDERED: GLUCAGON 1 MG/ML VIAL OTHER PRN (17:30)
[2017-09-15] MEDS ORDERED: DEXTROSE 50% IN WATER 50 ML VIAL(D50) IV PUSH PRN (17:30)
--- NOTE | 2017-09-15 18:04 | HHI.HP ---
HPI Service [facility] Hospitalists Primary Care Physician [facility] Admission Diagnosis fluid overload, shortness of breath Diagnoses: Chief Complaint: Progressive dyspnea Fatigue BLE edema Travel History International Travel<30 Days: No Contact w/Intl Traveler <30 Da: No Traveled to Known Affected Are: No Sepsis Criteria SIRS Criteria (2 or more): Heart rate over 90, RR > 20 or PaCO2 < 32 History of Present Illness This is a 61-year-old -Sudanese male with past medical history significant for congestive heart failure last echocardiogram in the system dated May 31, 2016 revealing EF of 25-30%, hx of bradycardia and PEA arrest , ESRD on HD TTHSat, hypertension, diabetes, hx of cocaine use and Hep C who presents to [facility] ED with complaints of progressive dyspnea for the past several weeks. Patient states he is only able to walk about 10 feet before becoming extremely short of breath and fatigued. He endorses associated dizziness. He reports increased bilateral lower extremity edema. He denies any cough. He denies any weight gain. He states he has been compliant with his medications, diet and his dialysis appointments. [facility] was [facility] and was instructed to come into the ED for admission. Patient denies any associated chest pain. He denies any recent illness, fever or chills. He denies any nausea, vomiting or abdominal pain. He denies any urinary or bowel difficulties. He does not use oxygen at home. In the ED, patient had BNP of greater than 5000 and CXR revealed stable right pleural effusion, cardiomegaly and moderate pulmonary vascular congestion. Patient was also found to have elevated troponin 0 0.11. Review of Systems Except as stated in HPI: all other systems reviewed are Neg Past Family Social History Past Medical History End-stage renal disease on hemodialysis, TTHSAT Hypertension Diabetes mellitus Cardiomyopathy with EF 25-30% Hepatitis C Ongoing tobaccoism Hx of cocaine use chronic anemia Past Surgical History Scrotal surgery ORIF finger Left upper extremity fistula 09/14/12 Cardiac catheterization in 2012 Reported Medications Hydralazine HCl 25 Mg Tablet 25 Mg PO BID Ferrous Sulfate 325 Mg (65 Mg Iron) Tablet 324 Mg PO BIDPC Renvela (Sevelamer Carbonate) 800 Mg Tab 1,600 Mg PO TID Aspirin Adult Low Strength (Aspirin) 81 Mg Tabdr 81 Mg PO DAILY Allergies: Coded Allergies: Sulfa (Sulfonamide Antibiotics) (Unverified Allergy, Severe, Rash, ) ibuprofen (Unverified Allergy, Severe, 05/15/17) *MDRO Multi-Drug Resistant Organism (Verified Adverse Reaction, Unknown, 05/15/17) 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 Ordered Medications Current Medications Medications (Trade) Dose Ordered Sig/Crispin Route Start Time Stop Time Status Last Admin (Ecotrin Ec) 81 mg DAILY PO 09/16/17 09:00 (Ferrous Sulfate) 324 mg BIDPC PO 09/15/17 18:00 (Apresoline) 25 mg BID PO 09/15/17 21:00 (Renvela) 1,600 mg TID PO 09/15/17 18:00 (NS Flush) 2 ml UNSCH PRN IV FLUSH 09/15/17 15:45 (NS Flush) 2 ml BID IV FLUSH 09/15/17 21:00 (Tylenol) 650 mg Q4H PRN PO 09/15/17 15:45 (Zofran Inj) 4 mg Q6H PRN IVP 09/15/17 15:45 (Reglan Inj) 5 mg Q6H PRN IV PUSH 09/15/17 15:45 (Heparin Inj) 5,000 units Q8H SQ 09/15/17 16:00 (Tylenol) 650 mg Q6H PRN PO 09/15/17 15:45 (Percocet 5-325 Mg) 1 tab Q6H PRN PO 09/15/17 15:45 (Percocet 10-325 Mg) 1 tab Q6H PRN PO 09/15/17 15:45 (Morphine Inj) 2 mg Q3H PRN IV PUSH 09/15/17 15:45 (Morphine Inj) 4 mg Q3H PRN IV PUSH 09/15/17 15:45 (Narcan Inj) 0.4 mg UNSCH PRN IV PUSH 09/15/17 15:45 (Ayla-Colace) 1 tab BID PO 09/15/17 21:00 (Milk Of Magnesia Liq) 30 ml Q12H PRN PO 09/15/17 15:45 (Senokot) 17.2 mg Q12H PRN PO 09/15/17 15:45 (Dulcolax Supp) 10 mg DAILY PRN RECTAL 09/15/17 15:45 (Lactulose Liq) 30 ml DAILY PRN PO 09/15/17 15:45 Family History Diabetes mellitus Social History Patient has a long history of tobacco use since he was a teenager. He now smokes 2 cigarettes/day. He denies any EtOH consumption or illicit drug use. Physical Exam Vital Signs Vital Signs Date Time Temp Pulse Resp B/P (MAP) Pulse Ox O2 Delivery O2 Flow Rate FiO2 09/15/17 12:51 98 Nasal Cannula 2.00 09/15/17 12:43 98.0 106 26 130/84 (99) 100 Physical Exam GENERAL: This is a thin somewhat ill appearing male patient, in no apparent distress. Awake and alert. SKIN: No rashes, ecchymoses or lesions. Cool and dry. HEAD: Atraumatic. Normocephalic. No temporal or scalp tenderness. EYES: Pupils equal round and reactive. Extraocular motions intact. No scleral icterus. Right conjunctiva erythematous over lateral aspect. ENT: Nose without bleeding or purulent drainage. Throat without erythema, tonsillar hypertrophy or exudate. Uvula midline. Airway patent. MMM. Poor dentition. NECK: Trachea midline. No lymphadenopathy. Supple, nontender, no meningeal signs. CARDIOVASCULAR: Regular rate and rhythm without murmurs, gallops, or rubs. RESPIRATORY: Diminished breath sounds. No wheezing. No accessory muscle use. GASTROINTESTINAL: Abdomen soft, non-tender, nondistended. No hepato-splenomegaly , or palpable masses. No guarding. MUSCULOSKELETAL: Extremities without clubbing or cyanosis. 1+ bilateral lower extremity edema. No joint tenderness, effusion, or edema noted. No calf tenderness. NEUROLOGICAL: Awake and alert. Cranial nerves II through XII grossly intact. Motor and sensory grossly within normal limits. No focal neurologic findings appreciated. Normal speech. Laboratory Laboratory Tests Test 09/15/17 13:09 White Blood Count 3.7 Red Blood Count 4.02 Hemoglobin 12.0 Hematocrit 36.2 Mean Corpuscular Volume 90.2 Mean Corpuscular Hemoglobin 29.9 Mean Corpuscular Hemoglobin Concent 33.2 Red Cell Distribution Width 18.7 Platelet Count 125 Mean Platelet Volume 10.7 Neutrophils (%) (Auto) 60.9 Lymphocytes (%) (Auto) 22.7 Monocytes (%) (Auto) 13.5 Eosinophils (%) (Auto) 1.7 Basophils (%) (Auto) 1.2 Neutrophils # (Auto) 2.2 Lymphocytes # (Auto) 0.8 Monocytes # (Auto) 0.5 Eosinophils # (Auto) 0.1 Basophils # (Auto) 0.0 CBC Comment DIFF FINAL Differential Comment Prothrombin Time 11.5 Prothromb Time International Ratio 1.1 Activated Partial Thromboplast Time 28.2 Blood Urea Nitrogen 34 Creatinine 5.28 Random Glucose 72 Calcium Level 9.0 Sodium Level 140 Potassium Level 5.0 Chloride Level 103 Carbon Dioxide Level 28.8 Anion Gap 8 Estimat Glomerular Filtration Rate 13 Total Creatine Kinase 115 Creatine Kinase MB 3.0 Troponin I 0.11 B-Type Natriuretic Peptide GREATER THAN 5000 Result Diagram: 09/15/17 1309 09/15/17 1309 Imaging Last Impressions Chest X-Ray 09/15/17 1300 Signed Impressions: Service Date/Time: Friday, September 15, 2017 13:42 - CONCLUSION: 1. Stable right pleural effusion. 2. Moderate pulmonary vascular congestion. 3. Cardiomegaly. Enzo Price MD Capisacci VTE Risk Assessment Caprini VTE Risk Assessment: Mod/High Risk (score >= 2) Caprini Risk Assessment Model Point Value = 1 Point Value = 2 Point Value = 3 Point Value = 5 Age 41-60 Minor surgery BMI > 25 kg/m2 Swollen legs Varicose veins or History of unexplained or recurrent spontaneous Oral contraceptives or hormone replacement Sepsis (< 1 month) Serious lung disease, including pneumonia (< 1 month) Abnormal pulmonary function Acute myocardial infarction Congestive heart failure (< 1 month) History of inflammatory bowel disease Medical patient at bed rest Age 61-74 Arthroscopic surgery Major open surgery (> 45 min) Laparoscopic surgery (> 45 min) Malignancy Confined to bed (> 72 hours) Immobilizing plaster cast Central venous access Age >= 75 History of VTE Family history of VTE Factor V Leiden Prothrombin [id number] Lupus anticoagulant Anticardiolipin antibodies Elevated serum homocysteine Heparin-induced thrombocytopenia Other congenital or acquired thrombophilia Stroke (< 1 month) Elective arthroplasty Hip, pelvis, or leg fracture Acute spinal cord injury (< 1 month) Prophylaxis Regimen Total Risk Factor Score Risk Level Prophylaxis Regimen 0-1 Low Early ambulation 2 Moderate Order ONE of the following: *Sequential Compression Device (SCD) *Heparin 5000 units SQ BID 3-4 Higher Order ONE of the following medications: *Heparin 5000 units SQ TID *Enoxaparin/Lovenox 40 mg SQ daily (WT < 150 kg, CrCl > 30 mL/min) *Enoxaparin/Lovenox 30 mg SQ daily (WT < 150 kg, CrCl > 10-29 mL/min) *Enoxaparin/Lovenox 30 mg SQ BID (WT < 150 kg, CrCl > 30 mL/min) AND/OR *Sequential Compression Device (SCD) 5 or more Highest Order ONE of the following medications: *Heparin 5000 units SQ TID (Preferred with Epidurals) *Enoxaparin/Lovenox 40 mg SQ daily (WT < 150 kg, CrCl > 30 mL/min) *Enoxaparin/Lovenox 30 mg SQ daily (WT < 150 kg, CrCl > 10-29 mL/min) *Enoxaparin/Lovenox 30 mg SQ BID (WT < 150 kg, CrCl > 30 mL/min) AND *Sequential Compression Device (SCD) Assessment and Plan Assessment and Plan 61-year-old -Sudanese male with past medical history significant for congestive heart failure last echocardiogram in the system dated May 31, 2016 revealing EF of 25-30%, hx of bradycardia and PEA arrest, ESRD on HD TTHSat , hypertension, diabetes, hx of cocaine use and Hep C who presents to [facility] ED with complaints of progressive dyspnea for the past several weeks. Acute on chronic systolic and diastolic congestive heart failure BNP greater than 5000 Last echocardiogram in the system dated May 31, 2016 revealing EF of 25-30% CXR reveals stable right pleural effusion, cardiomegaly, moderate pulmonary vascular congestion -Consult nephrology for dialysis -Obtain echocardiogram -CHF teaching -strict I&Os -Continue supplemental oxygen to maintain O2 saturations greater than 92% -Continue to monitor respiratory status -Patient may need home oxygen walk test prior to discharge Elevated troponin, suspect secondary to end-stage renal disease Nonischemic cardiomyopathy, hx of cardiac cath 2012 revealing normal coronaries History of bradycardia and PEA arrest secondary to hyperkalemia Patient has no complaints of chest pain -r/o ACS. 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 -resume home dose of Renvela -obtain phosphorus level Hypertension -Resume patient on home dose of hydralazine -monitor BP and adjust treatment accordingly Diabetes mellitus Last A1c in the system 6.0 09/23/15 Blood sugar low in the ED -obtain A1c level -accuchecks -Low-dose insulin sliding scale History of ongoing tobaccoism -Discussed smoking cessation History of previous cocaine use UDS positive for cocaine 2013, 2015 -Obtain urine drug screen Hep C -Avoid hepatotoxic agents -Standard precautions Anemia of chronic disease, stable Thrombocytopenia, secondary to renal failure No evidence of active bleeding -resume home dose of ferrous sulfate -Monitor CBC as indicated -Epogen per nephrology DVT prophylaxis -Heparin sq Discussed Condition With patient, nursing staff, Diana Baldwin Sep 15, 2017 18:04
[2017-09-15] MEDS: FERROUS SULFATE 325 MG (65 MG ELEMENTAL IRON) TAB PO SCH (18:24)
[2017-09-15] MEDS: SEVELAMER CARBONATE 800 MG TAB PO SCH (18:24)
[2017-09-15] MEDS: HEPARIN SODIUM - SQ 10,000 UNITS/ML VIAL SQ SCH (18:25)
[2017-09-15 18:43] LABS: TROPONIN I 0.1 NG/ML (0.02-0.05)
[2017-09-15 20:06] VITALS: BP 141/78; PULSE 100; RESP 17; TEMP 98.4; O2SAT 98
[2017-09-15] MEDS: DOCUSATE SODIUM 50 MG/SENNA 8.6 MG TAB PO SCH (21:00)
[2017-09-15] MEDS: INSULIN ASPART SUPPLEMENTAL SCALE SQ SCH (21:00)
[2017-09-15] MEDS ORDERED: SODIUM CHLOR 0.9% 1000 ML INJ 1,000 ML IV PRN (22:18)
[2017-09-15] MEDS ORDERED: SODIUM CHLOR 0.9% 1000 ML INJ 1,000 ML OTHER PRN ×2 (22:18)
[2017-09-15] MEDS ORDERED: HEPARIN SODIUM - IV 10,000 UNITS/10 ML VIAL IV FLUSH PRN (22:30)
[2017-09-15] MEDS ORDERED: cloNIDine HCL 0.1 MG TAB PO PRN (22:30)
[2017-09-15] MEDS ORDERED: ONDANSETRON HCL 4 MG/2 ML VIAL IV PUSH PRN (22:30)
[2017-09-15] MEDS ORDERED: GELATIN 12 MM/7 MM FOAM TOP PRN (22:30)
[2017-09-15] MEDS ORDERED: GENTAMICIN SULFATE 20 MG/2 ML VIAL OTHER PRN (22:30)
[2017-09-15] MEDS ORDERED: ALBUMIN 25% INJ 100 ML IV PRN (22:30)
[2017-09-15] MEDS ORDERED: MANNITOL 12.5 GM/50 ML VIAL IV PRN (22:30)
[2017-09-15] MEDS ORDERED: HEPARIN SODIUM - IV 10,000 UNITS/10 ML VIAL PRN (22:30)
[2017-09-15] MEDS ORDERED: NITROGLYCERIN 0.4 MG SL 25 TABS/BTL SL PRN (22:30)
[2017-09-15] MEDS ORDERED: diphenhydrAMINE HCL 25 MG CAP PO PRN (22:30)
[2017-09-15] MEDS: hydrALAZINE HCL 25 MG TAB PO SCH (23:18)
[2017-09-15] MEDS: SODIUM CHLORIDE 0.9% FLUSH 10 ML FLUSH IV FLUSH SCH (23:18)
[2017-09-15 23:25] VITALS: BP 140/89; PULSE 99; RESP 19; TEMP 98.4; O2SAT 89
--- NOTE | 2017-09-15 23:29 | EKG ---
Date Performed: 09/15/2017 Time Performed: 17:06:46 PTAGE: 61 years EKG: SINUS TACHYCARDIA WITH OCCASIONAL SUPRAVENTRICULAR PREMATURE COMPLEXES SEPTAL MYOCARDIAL IN FARCTION MODERATE T-WAVE ABNORMALITY, CONSIDER LATERAL ISCHEMIA MODERATE T-WAVE ABNORMALITY, CONSIDER INFERIOR ISCHEMIA ABNORMAL ECG PREVIOUS TRACING : 09/15/2017 13.11 Since the previous tracing, no significant change noted DOCTOR: Fabian Burden Interpretating Date/Time 09/15/2017 23:28:25
--- NOTE | 2017-09-15 23:39 | EKG ---
Date Performed: 09/15/2017 Time Performed: 13:11:58 PTAGE: 61 years EKG: SINUS TACHYCARDIA WITH FREQUENT SUPRAVENTRICULAR PREMATURE COMPLEXES POSSIBLE LEFT ATRIAL E NLARGEMENT SEPTAL MYOCARDIAL INFARCTION MODERATE T-WAVE ABNORMALITY, CONSIDER LATERAL ISCHEMIA ABNORM AL ECG PREVIOUS TRACING : 07/18/2017 07.17 Since the previous tracing, no significant change noted DOCTOR: Fabian Burden Interpretating Date/Time 09/15/2017 23:38:10
[2017-09-15 23:48] LABS: PHOSPHORUS 3.7 MG/DL (2.5-4.9)
[2017-09-15 23:50] LABS: TROPONIN I 0.12 NG/ML (0.02-0.05)
[2017-09-16] VITALS (9 sets, daily range): BP systolic 118–157; BP diastolic 58–89; PULSE 97–106; RESP 18–20; TEMP 96.5–98.3; O2SAT 86–100
[2017-09-16] MEDS: HEPARIN SODIUM - SQ 10,000 UNITS/ML VIAL SQ SCH ×4 (00:54→21:39)
--- NOTE | 2017-09-16 01:06 | MB ---
cc: Barber Peck MD DATE: 09/15/2017 REASON FOR CONSULTATION: End-stage renal disease on hemodialysis. HISTORY OF PRESENT ILLNESS: This is a 61-year-old male with a past medical history of hypertension, ischemic heart disease, congestive heart failure, diabetes mellitus, hepatitis C, cardiomyopathy, history of smoking and cocaine abuse with history of noncompliance, end-stage renal disease on hemodialysis 3 times per week, came to the hospital complaining of shortness of breath. I was called to see the patient for the management of dialysis. He has been on hemodialysis Monday, and Monday. He has this progressive worsening of shortness of breath, and according to the patient, he missed his dialysis yesterday. He denies any chest pain. There is no nausea or vomiting. He was seen at the [facility] and was told to go to the hospital. He denies any nausea or vomiting. There is no history of fever. He has mild cough which is mainly dry. PAST MEDICAL HISTORY: Hypertension, diabetes mellitus, hepatitis C, history of cocaine abuse, chronic anemia, cardiomyopathy with ejection fraction of 25% to 30%, end-stage renal disease on hemodialysis 3 times per week. PAST SURGICAL HISTORY: Left arm AV fistula surgery, cardiac catheterization, history of scrotal surgery. REVIEW OF SYSTEMS: The patient has generalized weakness, feeling tired, has worsening shortness of breath more with exertion but also with lying flat. There is a cough which is mainly dry. No chest pain. No palpitation. No nausea or vomiting. No history of fever. No abdominal pain. No history of diarrhea. SOCIAL HISTORY: The patient is single and lives with his girlfriend. He admits to smoking and also uses cocaine off and on. There is no history of heavy alcoholism. FAMILY HISTORY: Noncontributory. ALLERGIES: SULFA DRUGS AND IBUPROFEN. MEDICATIONS: Currently, he is on chronic medications: 1. Hydralazine 25 mg b.i.d. 2. Ferrous sulfate 325 mg once a day or twice a day. 3. Aspirin 81 mg daily. 4. Insulin as per sliding scale. 5. Renvela 1.6 gram t.i.d. 6. Tylenol as needed. 7. Zofran as needed. 8. Reglan as needed. 9. Percocet as needed. PHYSICAL EXAMINATION: GENERAL: The patient is awake and alert. He is in mild respiratory distress. VITAL SIGNS: Blood pressure is 141/78, temperature 98.4, oxygen saturation on 2 liters nasal cannula at 97% to 98%. HEENT: Pupils equal, reactive to light. Nonicteric sclerae. Conjunctivae pale. NECK: Supple. JVD is not elevated. LUNGS: The patient has bilaterally decreased air entry with basal rales and scattered wheezing. HEART: S1, S2. Regular rhythm. ABDOMEN: Distended, soft, lax. There is no tenderness. Bowel sounds positive. EXTREMITIES: He has mild edema in the legs. INVESTIGATIONS: WBC count is 3.7, hemoglobin 12.0, platelet count of 135, neutrophils 60.9%. Sodium 140, potassium 5.0, chloride 103, bicarbonate 28.8, BUN 34, creatinine 5.2, glucose 72. BNP is greater than 5000, troponin I is 0.1. Creatine kinase 87. IMAGING STUDY: The patient had a chest x-ray done which shows that he has right-sided pleural effusion with some moderate vascular congestion and cardiomegaly. ASSESSMENT AND PLAN: 1. Fluid overload status and end-stage renal disease. 2. Pleural effusion and history of cardiomyopathy. 3. Hypertension. 4. Diabetes mellitus. 5. Mild anemia. 6. History of hepatitis C. 7. History of noncompliance. The patient has an issue with compliance with the dialysis treatment, and he is saturating 98% on 2 liters nasal cannula. He has right-sided pleural effusion. He had a thoracentesis done in April and possibly will need to undergo thoracentesis. Hemodialysis due tomorrow. I will make sure that he will get dialysis in the morning and we will try to remove more fluid. The patient was told to restrict his fluid intake and to remain compliant with his dialysis treatment. Thank you for the consultation. Over the weekend, the patient will be seen ____. MD COLEMAN Nascimento/TAYLOR , 11:33 PM , 01:05 AM RENETTA
[2017-09-16 07:43] LABS: AUTOMATED NEUTROPHIL # 2.8 TH/MM3 (1.8-7.7); BASOPHIL # 0.1 TH/MM3 (0-0.2); BASOPHIL % 1.5 % (0.0-2.0); EOSINOPHIL % 0.9 % (0.0-4.0); HEMATOCRIT 39.8 % (39.0-51.0); HEMOGLOBIN 13.2 GM/DL (13.0-17.0); LYMPH % 22.3 % (9.0-44.0); MEAN CELL VOLUME 91.1 FL (80.0-100.0); MEAN CORPUSCULAR HEMOGLOBIN 30.3 PG (27.0-34.0); MEAN CORPUSCULAR HGB CONC 33.2 % (32.0-36.0); MEAN PLATELET VOLUME 11.7 FL (7.0-11.0); MONO % 11.3 % (0.0-8.0); MONOCYTE # 0.5 TH/MM3 (0-0.9); PLATELET COUNT 125 TH/MM3 (150-450); RED BLOOD COUNT 4.37 MIL/MM3 (4.50-5.90); RED CELL DISTRIBUTION WIDTH 19.1 % (11.6-17.2); WHITE BLOOD COUNT 4.3 TH/MM3 (4.0-11.0)
[2017-09-16] MEDS: INSULIN ASPART SUPPLEMENTAL SCALE SQ SCH ×4 (08:00→21:00)
[2017-09-16 08:32] LABS: ALBUMIN 3.7 GM/DL (3.4-5.0); ALKALINE PHOSPHATASE 66 U/L (45-117); ALT (GPT) 17 U/L (12-78); AST (GOT) 27 U/L (15-37); BICARBONATE 27.2 MEQ/L (21.0-32.0); BLOOD UREA NITROGEN 46 MG/DL (7-18); CALCIUM 9.4 MG/DL (8.5-10.1); CHLORIDE 99 MEQ/L (98-107); CHOLESTEROL 133 MG/DL (120-200); CHOLESTEROL/ HDL RATIO 2.12 RATIO; CREATININE 6.39 MG/DL (0.60-1.30); FREE T4 1.31 NG/DL (0.76-1.46); GLOMERULAR FILTRATION RATE 11 ML/MIN (>89); GLUCOSE,RANDOM 106 MG/DL (74-106); HDL CHOLESTEROL 62.6 MG/DL (40.0-60.0); LDL CHOLESTEROL 56 MG/DL (0-99); MAGNESIUM 2.2 MG/DL (1.5-2.5); PHOSPHORUS 4.2 MG/DL (2.5-4.9); SODIUM (NA) 137 MEQ/L (136-145); TOTAL BILIRUBIN ADULT 0.6 MG/DL (0.2-1.0); TOTAL PROTEIN 8.1 GM/DL (6.4-8.2); TRIGLYCERIDES 71 MG/DL (42-150)
--- NOTE | 2017-09-16 10:24 | EKG ---
Date Performed: 09/15/2017 Time Performed: 22:21:12 PTAGE: 61 years EKG: Sinus rhythm WITH OCCASIONAL SUPRAVENTRICULAR PREMATURE COMPLEXES POSSIBLE LEFT ATRIAL ENLARGEMENT SEPTAL MYOCARD IAL INFARCTION MODERATE T-WAVE ABNORMALITY, CONSIDER LATERAL ISCHEMIA MODERATE T-WAVE ABNORMALITY, CO NSIDER INFERIOR ISCHEMIA ABNORMAL ECG PREVIOUS TRACING : 09/15/2017 17.06 Since the previous tracing, no significant change noted DOCTOR: Fabian Burden Interpretating Date/Time 09/16/2017 10:23:36
--- NOTE | 2017-09-16 10:53 | HHI.NPPN ---
Subjective Additional Remarks Patient seen on dialysis, tolerating HD well. Objective Data Data Vital Signs Date Time Temp Pulse Resp B/P (MAP) Pulse Ox O2 Delivery O2 Flow Rate FiO2 09/16/17 07:34 102 09/16/17 06:17 94 Nasal Cannula 4.00 09/16/17 04:02 98.2 98 19 157/85 (109) 98 09/15/17 23:25 98.4 99 19 140/89 (106) 89 09/15/17 20:06 98.4 100 17 141/78 (99) 98 09/15/17 17:10 97.8 101 18 116/76 (89) 97 09/15/17 12:51 98 Nasal Cannula 2.00 09/15/17 12:43 98.0 106 26 130/84 (99) 100 -: 09/16/17 0700 09/16/17 0700 Physical Exam General Appearance: No Acute Distress Eyes Eye Exam: Pupils Equal Throat Throat Exam: Oral Mucosa [place] & Moist Neck Neck Exam: Neck Supple Pulmonary Resp Exam: Decreased Bases Cardiology CV Exam: Regular, Normal Sinus Rhythm Gastrointestinal/Abdomen GI Exam: Soft, Non-Tender Integumentary Skin Exam: Dry, Intact Extremeties Extremities Exam: Trace Edema Neurologic Neuro Exam: Oriented Assessment/Plan Problem List: (1) ESRD on hemodialysis ICD Codes: N18.6 - End-stage renal disease on hemodialysis; Z99.2 - Dependence on renal dialysis Status: Chronic Plan: 1. Fluid overload status and end-stage renal disease. 2. Pleural effusion and history of cardiomyopathy. 3. Hypertension. 4. Diabetes mellitus. 5. Mild anemia. 6. History of hepatitis C. 7. History of noncompliance. History of non-compliance with HD. HD being done today, tolerating HD well. UF as tolerated with HD. If still here, will do next HD Monday. Encouraged compliance. (2) DM (diabetes mellitus) ICD Codes: E11.9 - Type 2 diabetes mellitus without complications Status: Chronic Plan: Glucose stable (3) Hypertension ICD Codes: I10 - Hypertension Status: Chronic Plan: BP stable, continue meds (4) Hepatitis C ICD Codes: B19.20 - Unspecified viral hepatitis C without hepatic coma Status: Acute Onel Casillas MD Sep 16, 2017 10:53
[2017-09-16 11:02] LABS: HEMOGLOBIN A1C 5.9 % (4.3-6.0)
[2017-09-16] MEDS: SODIUM CHLORIDE 0.9% FLUSH 10 ML FLUSH IV FLUSH SCH ×2 (12:41→21:00)
[2017-09-16] MEDS: ASPIRIN EC 81 MG TABEC PO SCH (12:41)
[2017-09-16] MEDS: hydrALAZINE HCL 25 MG TAB PO SCH ×2 (12:41→21:39)
[2017-09-16] MEDS: SEVELAMER CARBONATE 800 MG TAB PO SCH ×3 (12:42→18:14)
[2017-09-16] MEDS: FERROUS SULFATE 325 MG (65 MG ELEMENTAL IRON) TAB PO SCH ×2 (12:42→18:13)
[2017-09-16] MEDS: DOCUSATE SODIUM 50 MG/SENNA 8.6 MG TAB PO SCH ×2 (12:42→21:39)
--- NOTE | 2017-09-16 15:23 | HHI.PR ---
Subjective Remarks Follow-up on patient with CHF exacerbation. Patient seen and examined. Patient seen having returned not too long ago from dialysis. Patient is extremely lethargic. He will awaken and answer questions but then immediately nods back off to sleep again. He continues to have complaints of shortness of breath. He denies any complaints of chest pain. Denies any fever or chills. Denies any nausea, vomiting or abdominal pain. Objective Vitals Vital Signs Date Time Temp Pulse Resp B/P (MAP) Pulse Ox O2 Delivery O2 Flow Rate FiO2 09/16/17 12:00 96.5 106 20 140/77 (98) 97 09/16/17 07:34 102 09/16/17 06:17 94 Nasal Cannula 4.00 09/16/17 04:02 98.2 98 19 157/85 (109) 98 09/15/17 23:25 98.4 99 19 140/89 (106) 89 09/15/17 20:06 98.4 100 17 141/78 (99) 98 09/15/17 17:10 97.8 101 18 116/76 (89) 97 I/O 09/15/17 09/15/17 09/15/17 09/16/17 09/16/17 09/16/17 07:00 15:00 23:00 07:00 15:00 23:00 Output Total 2000 ml Balance -2000 ml Output Hemodialysis 2000 ml Result Diagram: 09/16/17 0700 09/16/17 0700 Imaging Last Impressions Chest X-Ray 09/15/17 1300 Signed Impressions: Service Date/Time: Friday, September 15, 2017 13:42 - CONCLUSION: 1. Stable right pleural effusion. 2. Moderate pulmonary vascular congestion. 3. Cardiomegaly. Enzo Price MD Objective Remarks GENERAL: This is a thin somewhat ill appearing male patient, in no apparent distress. Somnolent. Awakens to voice but then quickly nods back off again. SKIN: Warm and dry. HEAD: Atraumatic. Normocephalic. EYES: Pupils equal round and reactive. Extraocular motions intact. No scleral icterus. Right conjunctiva erythematous over lateral aspect. ENT: Nose without bleeding or purulent drainage. Airway patent. MMM. Poor dentition. NECK: Trachea midline. No lymphadenopathy. CARDIOVASCULAR: Regular rate and rhythm without murmurs, gallops, or rubs. RESPIRATORY: Nonlabored. Diminished breath sounds R>L. No wheezing. GASTROINTESTINAL: Abdomen soft, non-tender, nondistended. +BS. MUSCULOSKELETAL: Extremities without clubbing, cyanosis or edema. No joint tenderness, effusion, or edema noted. No calf tenderness. NEUROLOGICAL: Somnolent. Cranial nerves II through XII grossly intact. Motor and sensory grossly within normal limits. No focal neurologic findings appreciated. Normal speech. PSYCHIATRIC: Calm and cooperative. Medications and IVs Current Medications Medications (Trade) Dose Ordered Sig/Crispin Route Start Time Stop Time Status Last Admin (Ecotrin Ec) 81 mg DAILY PO 09/16/17 09:00 09/16/17 12:41 (Ferrous Sulfate) 324 mg BIDPC PO 09/15/17 18:00 09/16/17 12:42 (Apresoline) 25 mg BID PO 09/15/17 21:00 09/16/17 12:41 (Renvela) 1,600 mg TID PO 09/15/17 18:00 09/16/17 12:42 (NS Flush) 2 ml UNSCH PRN IV FLUSH 09/15/17 15:45 (NS Flush) 2 ml BID IV FLUSH 09/15/17 21:00 09/16/17 12:41 (Tylenol) 650 mg Q4H PRN PO 09/15/17 15:45 (Zofran Inj) 4 mg Q6H PRN IVP 09/15/17 15:45 (Reglan Inj) 5 mg Q6H PRN IV PUSH 09/15/17 15:45 (Heparin Inj) 5,000 units Q8H SQ 09/15/17 16:00 09/16/17 12:41 (Tylenol) 650 mg Q6H PRN PO 09/15/17 15:45 (Percocet 5-325 Mg) 1 tab Q6H PRN PO 09/15/17 15:45 (Percocet 10-325 Mg) 1 tab Q6H PRN PO 09/15/17 15:45 (Morphine Inj) 2 mg Q3H PRN IV PUSH 09/15/17 15:45 (Morphine Inj) 4 mg Q3H PRN IV PUSH 09/15/17 15:45 (Narcan Inj) 0.4 mg UNSCH PRN IV PUSH 09/15/17 15:45 (Ayla-Colace) 1 tab BID PO 09/15/17 21:00 (Milk Of Magnesia Liq) 30 ml Q12H PRN PO 09/15/17 15:45 (Senokot) 17.2 mg Q12H PRN PO 09/15/17 15:45 (Dulcolax Supp) 10 mg DAILY PRN RECTAL 09/15/17 15:45 (Lactulose Liq) 30 ml DAILY PRN PO 09/15/17 15:45 (D50w (Vial) Inj) 50 ml UNSCH PRN IV PUSH 09/15/17 17:30 (Glucagon Inj) 1 mg UNSCH PRN OTHER 09/15/17 17:30 (NovoLOG SUPPLEMENTAL SCALE) 1 ACHS SLIDING SCALE SQ 09/15/17 21:00 Sodium Chloride 1,000 ml @ 0 mls/hr Q0M PRN OTHER 09/15/17 22:18 (Heparin Inj) 8,000 units UNSCH PRN IV FLUSH 09/15/17 22:30 Sodium Chloride 1,000 ml @ 200 mls/hr Q5H PRN IV 09/15/17 22:18 09/16/17 09:50 Sodium Chloride 1,000 ml @ 0 mls/hr Q0M PRN OTHER 09/15/17 22:18 (Mannitol Inj) 12.5 gm UNSCH PRN IV 09/15/17 22:30 Albumin Human 100 ml @ 60 mls/hr UNSCH PRN IV 09/15/17 22:30 (NS Flush) 5 ml UNSCH PRN IV FLUSH 09/15/17 22:30 (Heparin Inj) UNSCH PRN .XX 09/15/17 22:30 (Gentamicin Inj) 20 mg UNSCH PRN OTHER 09/15/17 22:30 (Zofran Inj) 4 mg UNSCH PRN IV PUSH 09/15/17 22:30 (Tylenol) 650 mg UNSCH PRN PO 09/15/17 22:30 (Benadryl) 25 mg UNSCH PRN PO 09/15/17 22:30 (Nitrostat Sl) 0.4 mg UNSCH PRN SL 09/15/17 22:30 (Catapres) 0.1 mg UNSCH PRN PO 09/15/17 22:30 (Gelfoam 12 Mm/7 Mm Top) 1 foam UNSCH PRN TOP 09/15/17 22:30 09/16/17 09:51 A/P Assessment and Plan 61-year-old -[place] Citizen male with past medical history significant for congestive heart failure last echocardiogram in the system dated May 31, 2016 revealing EF of 25-30%, hx of bradycardia and PEA arrest, ESRD on HD TTHSat , hypertension, diabetes, hx of cocaine use and Hep C who presents to [facility] ED with complaints of progressive dyspnea for the past several weeks. Acute on chronic systolic and diastolic congestive heart failure BNP greater than 5000 Last echocardiogram in the system dated May 31, 2016 revealing EF of 25-30% CXR reveals stable right pleural effusion, cardiomegaly, moderate pulmonary vascular congestion Patient somnolent today after returning from HD, may be worn out from dialysis -obtain ABG -Given persistence of right sided pleural effusion, extensive tobacco use history and need for 4L of supplemental oxygen will consult Pulmonology, appreciate assistance -Obtain echocardiogram, ordered/pending -CHF teaching -strict I&Os -Continue supplemental oxygen to maintain O2 saturations greater than 92% -Continue to monitor respiratory status -Patient may need home oxygen walk test prior to discharge Elevated troponin, suspect secondary to end-stage renal disease Nonischemic cardiomyopathy, hx of cardiac cath 2012 revealing normal coronaries History of bradycardia and PEA arrest secondary to hyperkalemia Patient has no complaints of chest pain Troponins slightly elevated which is chronic EKGs with T wave abnormality, unchanged from prior studies -Continuous cardiac telemetry -ASA 81mg daily End-stage renal disease on hemodialysis TTHSAT Nephrology following, appreciate assistance s/p HD today -continue on home dose of Renvela Hyperkalemia -management per Nephrology Hypertension, overall controlled -continue on home dose of hydralazine -monitor BP and adjust treatment accordingly Diabetes mellitus Last A1c in the system 6.0 09/23/15 Blood sugars well controlled -A1c level 5.9 -accuchecks -Low-dose insulin sliding scale History of ongoing tobaccoism -Discussed smoking cessation History of previous cocaine use UDS positive for cocaine 2013, 2015 Patient oliguric, unable to obtain urine specimen for UDS Hep C -Avoid hepatotoxic agents -Standard precautions Anemia of chronic disease, stable Thrombocytopenia, secondary to renal failure No evidence of active bleeding -continue home dose of ferrous sulfate -Monitor CBC as indicated -Epogen per nephrology Weight loss Malnutrition, BMI 20.5 -Consult hand cutter -Ming longo -Theragran M tablet daily -consider palliative care consult if patient still here on Monday DVT prophylaxis -Heparin sq Discharge Planning Patient not ready for discharge. Discharge pending clinical improvement, Pulmonary and Nephrology clearance. Diana Buckley Sep 16, 2017 15:23
--- NOTE | 2017-09-16 17:47 | MB ---
cc: Master Krause MD, Arjun D MD DATE: 09/16/2017 REQUESTING PHYSICIAN: Dr. Colton Macias REASON FOR CONSULTATION: Shortness of breath. HISTORY OF PRESENT ILLNESS: Mr. Bloom is a 61-year-old male with history of end-stage renal disease on hemodialysis, history of cardiomyopathy, ejection fraction 25-30% and history of PEA. The patient is on hemodialysis. He came to the hospital with worsening of his shortness of breath. He denies any cough or sputum production. No chest pain, no nausea or vomiting. He had his dialysis and feels significantly better. He had a workup done. WBC count 4.3, hemoglobin 13.2, hematocrit 39.8, MCV 91, platelet count 125. Sodium 137, potassium 5.2, chloride 99, CO2 of 27, BUN 46, creatinine 6.39. Blood gas - pH 7.49, pCO2 of 44, pO2 of 52 on room air. He is on 3 liters nasal cannula. His chest x-ray shows he has stable right pleural effusion. PAST MEDICAL HISTORY: Significant for history of hypertension, end-stage renal disease on hemodialysis, cardiomyopathy, ejection fraction 25-30%, history of PTCA arrest, history of hepatitis C, diabetes mellitus. MEDICATIONS: Currently taking, 1. Aspirin 81 mg. 2. Hydralazine 25 mg twice a day. 3. Ferrous sulfate 324 mg twice a day. 4. Renvela 1600 mg 3 times a day. 5. Heparin 5000 every 8 hours subcutaneous. ALLERGIES: ALLERGIC TO SULFA AND IBUPROFEN. SOCIAL HISTORY: He has history of smoking, continues to smoke. History of cocaine use. FAMILY HISTORY: He is single and lives alone. REVIEW OF SYSTEMS: He had mild shortness of breath, feels better now. No headache or dizziness. Denies any DVT or pulmonary embolism. No seizure, stroke or epilepsy. The patient is rather uncooperative at this time. PHYSICAL EXAMINATION: GENERAL: Elderly man, not in acute distress. VITAL SIGNS: Blood pressure 119/63, heart rate 97, respirations 20, temperature 98.1, saturation 93% on 3 liters nasal cannula. HEENT: Unremarkable. NECK: Supple. Trachea not raised. CHEST: Decreased breath sounds at the right base. CARDIOVASCULAR: S1, S2 normal. ABDOMEN: Benign. EXTREMITIES: No edema. IMPRESSION: 1. Shortness of breath, improving. 2. Right pleural effusion, stable. 3. End-stage renal disease on hemodialysis. 4. History of hepatitis C. 5. Cardiomyopathy. 6. Hypertension PLAN: His shortness of breath is improved after dialysis, is related to his fluid overload. Monitor his electrolytes, supplement his oxygen. If the effusion gets worse, then we will consider thoracentesis. Further treatment will depend on the course in the hospital. Thank you, Dr. Macias, for this consult. MD MANDIE Pitts/SA , 05:23 PM , 05:45 PM
[2017-09-17 04:29] VITALS: BP 141/66; PULSE 102; RESP 18; TEMP 98.1; O2SAT 98
[2017-09-17] MEDS ORDERED: PILL SPLITTER OTHER PRN (08:00)
[2017-09-17 08:06] VITALS: BP 138/60; PULSE 76; RESP 20; TEMP 98.2; O2SAT 98
[2017-09-17] MEDS: DOCUSATE SODIUM 50 MG/SENNA 8.6 MG TAB PO SCH ×2 (09:00→21:00)
[2017-09-17] MEDS ORDERED: METOPROLOL TARTRATE 25 MG TAB PO SCH (09:00)
--- NOTE | 2017-09-17 09:18 | HHI.PR ---
Subjective Remarks Follow-up on patient with CHF exacerbation. Patient seen and examined. Patient is much more alert this morning. He sitting on the side of bed. He states his shortness of breath is much improved. He denies any complaints of chest pain. Denies any nausea, vomiting or abdominal pain. Patient admits he last used cocaine 4 weeks ago. He follows with a campus director at the [place] and was last seen about a month ago. Objective Vitals Vital Signs Date Time Temp Pulse Resp B/P (MAP) Pulse Ox O2 Delivery O2 Flow Rate FiO2 09/17/17 08:06 98.2 76 20 138/60 (86) 98 09/17/17 04:29 98.1 102 18 141/66 (91) 98 09/16/17 23:27 98.1 102 18 129/89 (102) 100 09/16/17 22:26 Nasal Cannula 3.00 09/16/17 20:23 98.3 97 19 118/58 (78) 99 09/16/17 16:22 93 Nasal Cannula 3.00 09/16/17 16:10 86 21 09/16/17 16:00 98.1 97 20 119/63 (81) 100 09/16/17 12:00 96.5 106 20 140/77 (98) 97 I/O 09/16/17 09/16/17 09/16/17 09/17/17 09/17/17 09/17/17 07:00 15:00 23:00 07:00 15:00 23:00 Intake Total 200 ml Output Total 2000 ml Balance -2000 ml 200 ml Intake Oral 200 ml Output Hemodialysis 2000 ml Result Diagram: 09/16/17 0700 09/16/17 0700 Imaging Last Impressions Chest X-Ray 09/15/17 1300 Signed Impressions: Service Date/Time: Friday, September 15, 2017 13:42 - CONCLUSION: 1. Stable right pleural effusion. 2. Moderate pulmonary vascular congestion. 3. Cardiomegaly. Enzo Price MD Objective Remarks GENERAL: This is a thin somewhat ill appearing male patient, in no apparent distress. Awake and alert. Sitting on side of the bed. Appears comfortable off of oxygen. SKIN: Warm and dry. HEAD: Atraumatic. Normocephalic. EYES: Pupils equal round and reactive. Extraocular motions intact. No scleral icterus. Right conjunctiva erythematous over lateral aspect, improving. ENT: Nose without bleeding or purulent drainage. Airway patent. MMM. Poor dentition. NECK: Trachea midline. CARDIOVASCULAR: Regularly irregular without murmurs, gallops, or rubs. RESPIRATORY: Nonlabored. Diminished breath sounds R>L. No wheezing. GASTROINTESTINAL: Abdomen soft, non-tender, nondistended. +BS. MUSCULOSKELETAL: Extremities without clubbing, cyanosis or edema. No joint tenderness, effusion, or edema noted. No calf tenderness. NEUROLOGICAL: Awake and alert. Cranial nerves II through XII grossly intact. Motor and sensory grossly within normal limits. No focal neurologic findings appreciated. Normal speech. PSYCHIATRIC: Calm and cooperative. Medications and IVs Current Medications Medications (Trade) Dose Ordered Sig/Crispin Route Start Time Stop Time Status Last Admin (Ecotrin Ec) 81 mg DAILY PO 09/16/17 09:00 09/16/17 12:41 (Ferrous Sulfate) 324 mg BIDPC PO 09/15/17 18:00 09/16/17 18:13 (Apresoline) 25 mg BID PO 09/15/17 21:00 09/16/17 21:39 (Renvela) 1,600 mg TID PO 09/15/17 18:00 09/16/17 18:14 (NS Flush) 2 ml UNSCH PRN IV FLUSH 09/15/17 15:45 (NS Flush) 2 ml BID IV FLUSH 09/15/17 21:00 09/16/17 12:41 (Tylenol) 650 mg Q4H PRN PO 09/15/17 15:45 (Zofran Inj) 4 mg Q6H PRN IVP 09/15/17 15:45 (Reglan Inj) 5 mg Q6H PRN IV PUSH 09/15/17 15:45 (Heparin Inj) 5,000 units Q8H SQ 09/15/17 16:00 09/16/17 21:39 (Tylenol) 650 mg Q6H PRN PO 09/15/17 15:45 (Percocet 5-325 Mg) 1 tab Q6H PRN PO 09/15/17 15:45 (Percocet 10-325 Mg) 1 tab Q6H PRN PO 09/15/17 15:45 (Morphine Inj) 2 mg Q3H PRN IV PUSH 09/15/17 15:45 (Morphine Inj) 4 mg Q3H PRN IV PUSH 09/15/17 15:45 (Narcan Inj) 0.4 mg UNSCH PRN IV PUSH 09/15/17 15:45 (Ayla-Colace) 1 tab BID PO 09/15/17 21:00 09/16/17 21:39 (Milk Of Magnesia Liq) 30 ml Q12H PRN PO 09/15/17 15:45 (Senokot) 17.2 mg Q12H PRN PO 09/15/17 15:45 (Dulcolax Supp) 10 mg DAILY PRN RECTAL 09/15/17 15:45 (Lactulose Liq) 30 ml DAILY PRN PO 09/15/17 15:45 (D50w (Vial) Inj) 50 ml UNSCH PRN IV PUSH 09/15/17 17:30 (Glucagon Inj) 1 mg UNSCH PRN OTHER 09/15/17 17:30 (NovoLOG SUPPLEMENTAL SCALE) 1 ACHS SLIDING SCALE SQ 09/15/17 21:00 Sodium Chloride 1,000 ml @ 0 mls/hr Q0M PRN OTHER 09/15/17 22:18 (Heparin Inj) 8,000 units UNSCH PRN IV FLUSH 09/15/17 22:30 Sodium Chloride 1,000 ml @ 200 mls/hr Q5H PRN IV 09/15/17 22:18 09/16/17 09:50 Sodium Chloride 1,000 ml @ 0 mls/hr Q0M PRN OTHER 09/15/17 22:18 (Mannitol Inj) 12.5 gm UNSCH PRN IV 09/15/17 22:30 Albumin Human 100 ml @ 60 mls/hr UNSCH PRN IV 09/15/17 22:30 (NS Flush) 5 ml UNSCH PRN IV FLUSH 09/15/17 22:30 (Heparin Inj) UNSCH PRN .XX 09/15/17 22:30 (Gentamicin Inj) 20 mg UNSCH PRN OTHER 09/15/17 22:30 (Zofran Inj) 4 mg UNSCH PRN IV PUSH 09/15/17 22:30 (Tylenol) 650 mg UNSCH PRN PO 09/15/17 22:30 (Benadryl) 25 mg UNSCH PRN PO 09/15/17 22:30 (Nitrostat Sl) 0.4 mg UNSCH PRN SL 09/15/17 22:30 (Catapres) 0.1 mg UNSCH PRN PO 09/15/17 22:30 (Gelfoam 12 Mm/7 Mm Top) 1 foam UNSCH PRN TOP 09/15/17 22:30 09/16/17 09:51 (Theragran M Tab) 1 tab DAILY PO 09/17/17 09:00 A/P Assessment and Plan 61-year-old -[place] male with past medical history significant for congestive heart failure last echocardiogram in the system dated May 31, 2016 revealing EF of 25-30%, hx of bradycardia and PEA arrest, ESRD on HD TTHSat , hypertension, diabetes, hx of cocaine use and Hep C who presents to [facility] ED with complaints of progressive dyspnea for the past several weeks. Hypoxic metabolic encephalopathy, improved Patient with increased somnolence yesterday, ABG revealed hypoxic hypercapnic respiratory failure. Patient placed back on supplemental oxygen. Patient much more awake and alert today. Breathing improved. Stable right sided pleural effusion Seen in consultation by pulmonology, appreciate assistance -Continue supplemental oxygen as needed -If pleural effusion worsens, consider thoracentesis -Home oxygen walk test ordered Acute on chronic systolic and diastolic congestive heart failure BNP greater than 5000 Last echocardiogram in the system dated May 31, 2016 revealing EF of 25-30% CXR reveals stable right pleural effusion, cardiomegaly, moderate pulmonary vascular congestion -Obtain echocardiogram, ordered/pending -repeat BNP -CHF teaching -strict I&Os -Continue supplemental oxygen to maintain O2 saturations greater than 92% -Continue to monitor respiratory status -Unable to give beta-stacey secondary to cocaine use. Consult cardiology to assist with optimizing medications in this complicated, noncompliant patient , appreciate assistance. Elevated troponins, chronic, suspect secondary to end-stage renal disease Nonischemic cardiomyopathy, hx of cardiac cath 2012 revealing normal coronaries History of bradycardia and PEA arrest secondary to hyperkalemia Patient has no complaints of chest pain EKGs with T wave abnormality, unchanged from prior studies -Continuous cardiac telemetry -ASA 81mg daily End-stage renal disease on hemodialysis TTHSAT Nephrology following, appreciate assistance -continue HD schedule per Nephrology -continue on home dose of Renvela Hyperkalemia -management per Nephrology -BMP pending for today Hypertension, overall controlled -continue on home dose of hydralazine -monitor BP and adjust treatment accordingly Tachycardia, HR better this am Unable to give BB secondary to cocaine use Diabetes mellitus Last A1c in the system 6.0 09/23/15 Blood sugars well controlled -A1c level 5.9 -d/c accucheks and ISS History of ongoing tobaccoism -Discussed smoking cessation History of previous cocaine use UDS positive for cocaine 2013, 2015 Patient oliguric, unable to obtain urine specimen for UDS Patient admits to using cocaine 4 weeks ago Hep C -Avoid hepatotoxic agents -Standard precautions Anemia of chronic disease, stable Thrombocytopenia, secondary to renal failure No evidence of active bleeding -continue home dose of ferrous sulfate -Monitor CBC as indicated -Epogen per nephrology Weight loss Malnutrition, BMI 20.5 -Consult tool lapper hand -Ming longo -Theragran M tablet daily -consider palliative care consult if patient still here on Monday DVT prophylaxis -Heparin sq Discharge Planning Patient not ready for discharge. Discharge pending echo results, Cardiology clearance and home oxygen walk test. Diana Buckley Sep 17, 2017 09:18
[2017-09-17] MEDS: SEVELAMER CARBONATE 800 MG TAB PO SCH ×3 (09:43→17:51)
[2017-09-17] MEDS: HEPARIN SODIUM - SQ 10,000 UNITS/ML VIAL SQ SCH ×2 (09:43→17:51)
[2017-09-17] MEDS: MULTIVITAMINS/MINERALS THERAPEUTIC TAB PO SCH (09:43)
[2017-09-17] MEDS: ASPIRIN EC 81 MG TABEC PO SCH (09:43)
[2017-09-17] MEDS: SODIUM CHLORIDE 0.9% FLUSH 10 ML FLUSH IV FLUSH SCH ×2 (09:44→21:30)
[2017-09-17] MEDS: FERROUS SULFATE 325 MG (65 MG ELEMENTAL IRON) TAB PO SCH ×2 (09:44→17:51)
[2017-09-17] MEDS: hydrALAZINE HCL 25 MG TAB PO SCH ×2 (09:44→21:30)
--- NOTE | 2017-09-17 11:08 | HHI.NPPN ---
Subjective Additional Remarks No acute complaints, resting comfortably. Objective Data Data Vital Signs Date Time Temp Pulse Resp B/P (MAP) Pulse Ox O2 Delivery O2 Flow Rate FiO2 09/17/17 08:06 98.2 76 20 138/60 (86) 98 09/17/17 04:29 98.1 102 18 141/66 (91) 98 09/16/17 23:27 98.1 102 18 129/89 (102) 100 09/16/17 22:26 Nasal Cannula 3.00 09/16/17 20:23 98.3 97 19 118/58 (78) 99 09/16/17 16:22 93 Nasal Cannula 3.00 09/16/17 16:10 86 21 09/16/17 16:00 98.1 97 20 119/63 (81) 100 09/16/17 12:00 96.5 106 20 140/77 (98) 97 -: 09/16/17 0700 09/16/17 0700 Physical Exam General Appearance: No Acute Distress Eyes Eye Exam: Pupils Equal Throat Throat Exam: Oral Mucosa [place] & Moist Neck Neck Exam: Neck Supple Pulmonary Resp Exam: Decreased Bases Cardiology CV Exam: Regular, Normal Sinus Rhythm Gastrointestinal/Abdomen GI Exam: Soft, Non-Tender Integumentary Skin Exam: Dry, Intact Extremeties Extremities Exam: Trace Edema Neurologic Neuro Exam: Oriented Assessment/Plan Problem List: (1) ESRD on hemodialysis ICD Codes: N18.6 - End-stage renal disease on hemodialysis; Z99.2 - Dependence on renal dialysis Status: Chronic Plan: 1. Fluid overload status and end-stage renal disease. 2. Pleural effusion and history of cardiomyopathy. 3. Hypertension. 4. Diabetes mellitus. 5. Mild anemia. 6. History of hepatitis C. 7. History of noncompliance. History of non-compliance with HD. HD done yesterday with 2L UF. Respiratory status stable, plan next HD Monday. Stable for d/c from renal standpoint. Encouraged compliance. Outpatient TTS HD (2) DM (diabetes mellitus) ICD Codes: E11.9 - Type 2 diabetes mellitus without complications Status: Chronic Plan: Glucose stable (3) Hypertension ICD Codes: I10 - Hypertension Status: Chronic Plan: BP stable, continue meds (4) Hepatitis C ICD Codes: B19.20 - Unspecified viral hepatitis C without hepatic coma Status: Acute Onel Casillas MD Sep 17, 2017 11:08
[2017-09-17 11:47] LABS: BICARBONATE 30.8 MEQ/L (21.0-32.0); CALCIUM 9.2 MG/DL (8.5-10.1); CREATININE 5.4 MG/DL (0.60-1.30)
[2017-09-17 12:27] VITALS: PULSE 70
[2017-09-17 12:30] VITALS: BP 120/62; PULSE 68; RESP 20; TEMP 98.9; O2SAT 96
[2017-09-17 15:31] VITALS: BP 150/90; PULSE 99; RESP 20; TEMP 98.9; O2SAT 100
[2017-09-17 16:00] VITALS: PULSE 96
--- NOTE | 2017-09-17 16:54 | MB ---
cc: Fabian Burden DO DATE: 09/17/2017 REASON FOR CONSULTATION: Shortness of breath. HISTORY OF PRESENT ILLNESS: Tenzin Bloom is a 61-year-old male who presented to [facility] on 09/15/2017, due to shortness of breath. He states that the shortness of breath has been coming on for the past few weeks. He is unable to do much other than walk a few feet before becoming extremely short of breath and fatigued. He was seen at the [facility] and they instructed him to come into the emergency room for admission. He states that he has had no weight gain, but he does not seem to follow his weights at home. He denies any chest pain. After being here, he underwent hemodialysis where they took off 2 liters and after this, the patient felt much better. He states that he used cocaine recently, but will not tell me when, but his believes it is within the past 4 weeks. PAST MEDICAL HISTORY: 1. End-stage renal disease, on hemodialysis Monday, , Monday. 2. Hypertension. 3. Diabetes mellitus. 4. Nonischemic cardiomyopathy with an ejection fraction of 25% to 30%. 5. Hepatitis C. 6. Tobacco abuse. 7. History of cocaine use 8. Chronic anemia. PAST SURGICAL HISTORY: 1. Cardiac catheterization (2012) with no significant disease. 2. Scrotal surgery. 3. ORIF of his finger. 4. Left upper extremity fistula (08/2012). ALLERGIES: 1. SULFA. 2. IBUPROFEN. MEDICATIONS: 1. Iron 324 mg b.i.d. 2. Hydralazine 25 mg b.i.d. 3. Aspirin 81 mg daily. 4. Renvela 1600 mg t.i.d. FAMILY HISTORY: Denies premature coronary artery disease or sudden cardiac within the family. SOCIAL HISTORY: The patient has a long history of tobacco since he was a teenager. He smokes about 2 cigarettes a day now. He denies alcohol abuse. He does admit to using cocaine occasionally. REVIEW OF SYSTEMS: Fourteen systems were reviewed including osteopathic pertinent positives and negatives above, otherwise negative. PHYSICAL EXAMINATION: VITAL SIGNS: Temperature 98.9, heart rate 68, blood pressure 120/62, respirations 20, pulse oximetry 96% on 3 liters. GENERAL: The patient appears in no acute distress, but overall, appears chronically ill. Alert, awake and oriented x 3. HEENT: Extraocular muscles intact. Mucous membranes moist. NECK: Supple. No JVD at 45 degrees. No carotid bruits heard bilaterally. Carotid upstroke is brisk in nature. HEART: Regular rate and rhythm. Positive for and second heart sounds with no noted murmurs, gallops or rubs. LUNGS: Decreased breath sounds bilaterally, but no overt wheezes, rales or rhonchi. ABDOMEN: Soft, nontender, nondistended. No organomegaly noted. EXTREMITIES: Show no clubbing, cyanosis or edema. Femoral and distal pulses intact bilaterally. NEUROLOGIC: No focal deficits. SKIN: Warm, dry and intact. OSTEOPATHIC: No kyphoscoliosis, lordosis or paraspinal tender points. LABORATORY DATA: Hemoglobin 13.2, hematocrit 39.8, platelets 125. Potassium 4.6, BUN 42, creatinine 5.40. Troponin 0.12. BNP greater than 5000. DIAGNOSTIC DATA: Electrocardiogram (09/15/2017 at 2221) sinus rhythm with occasional PACs, possible left atrial enlargement, ST-T wave changes laterally, inferiorly, possibly due to LVH versus ischemia. No significant change compared to EKGs going back to 2015. IMPRESSION: 1. Shortness of breath due to fluid overload state. 2. Nonischemic cardiomyopathy with an ejection fraction of 25% to 30%. 3. Mildly elevated troponin. 4. Tobacco abuse. 5. Cocaine abuse. 6. Hypertension. 7. Acute on chronic systolic heart failure. 8. End-stage renal disease, on hemodialysis Monday, , Monday. RECOMMENDATIONS: 1. Mr. Bloom appears to have shortness of breath due to a fluid overload state. This seems to be better now that he has had dialysis removing around 2 liters. 2. He does have a minimally elevated troponin, although he has chronically had this and most likely due to his renal disease, as well as LVH. I do not believe that there is any acute coronary syndrome going on here. 3. We will check a 2-D echo to look at his overall left ventricular function, cardiac structure and possible valvulopathies, although he has a known cardiomyopathy with an ejection fraction of 25% to 30%. 4. UDS was positive for cocaine, which may be somewhat of the leading cause going into this episode. I discussed with him the ramifications of cocaine including, but not limited to, sudden cardiac , myocardial infarction, arrhythmias and heart failure. He is more predisposed to these due to his cardiomyopathy. 5. He is not a candidate for ICD or LifeVest therapy due to his continued cocaine use. 6. Unfortunately, we cannot place him on a beta stacey to help with his cardiomyopathy. He may benefit from KINDRA inhibitor therapy, although I would leave this up to nephrology to further decide. 7. We will plan on continuing him on aspirin therapy. 8. I spoke to him for greater than 3 minutes about tobacco cessation. 9. I also spoke to him about keeping his weights at home due to his heart failure. 10. Further recommendations will be made based on the hospital course. Thank you for allowing me to see Tenzin Bloom. If there are any questions, please do not hesitate to call. DO MONTSERRAT Saenz/ROSANNA , 03:46 PM , 04:52 PM
--- NOTE | 2017-09-17 17:05 | ECHRPT ---
Indication: SOB CONCLUSIONS The left ventricular systolic function is severely reduced with an estimated ejection fraction in th e range of 20-25%. Mild concentric left ventricular hypertrophy. There is global left ventricular dysfunction. Zryz-hu-kfhpcrmh mitral valve regurgitation. There is severe tricuspid regurgitation. There is estimated eldfejem-hp-xsbmsi pulmonary hypertension present (65mmHg). Large bilateral pleural effusions are noted. BP: / HR: Rhythm: MEASUREMENTS (Male / Female) Normal Values Technical Quality: 2D ECHO LV Diastolic Diameter PLAX 5.0 cm 4.2 - 5.9 / 3.9 - 5.3 cm LV Systolic Diameter PLAX 4.6 cm IVS Diastolic Thickness 1.2 cm 0.6 - 1.0 / 0.6 - 0.9 cm LVPW Diastolic Thickness 0.7 cm 0.6 - 1.0 / 0.6 - 0.9 cm LV Relative Wall Thickness 0.4 RV Internal Dim ED PLAX 2.1 cm M-MODE Aortic Root Diameter MM 3.4 cm AV Cusp Separation MM 2.2 cm DOPPLER MR Peak Velocity 539.0 cm/s MR Peak Gradient 116.2 mmHg TR Peak Velocity 372.0 cm/s TR Peak Gradient 55.4 mmHg Right Atrial Pressure 10.0 mmHg Pulmonary Artery Systolic Pressu 65.4 mmHg Right Ventricular Systolic Press 65.4 mmHg FINDINGS LEFT VENTRICLE Mildly dilated left ventricle. Mild concentric left ventricular hypertrophy. The left ventricular systolic function is severely reduced with an estimated ejection fraction in th e range of 20-25%. There is global left ventricular dysfunction. RIGHT VENTRICLE The right ventricular size is normal. The right ventricular systoilc function is mildly decreased. LEFT ATRIUM The left atrial size is mildly dilated. RIGHT ATRIUM The right atrial size is rnpv-mv-ijeblvcqri dilated. ATRIAL SEPTUM Normal atrial septal thickness AORTA The aortic root and proximal ascending aorta are normal in size on limited imaging. MITRAL VALVE Mitral annular calcification is present. Ecgo-tr-feolzmbr mitral valve regurgitation. No mitral valve stenosis. AORTIC VALVE Aortic valve sclerosis is present. No aortic valve regurgitation. No aortic valve stenosis. TRICUSPID VALVE Grossly normal tricuspid valve. There is severe tricuspid regurgitation. There is estimated agyexuie-em-yxlozi pulmonary hypertension present (65mmHg). PULMONARY VALVE No pulmonary valve regurgitation or stenosis. VESSELS The inferior vena cava is normal in size. PERICARDIUM Large bilateral pleural effusions are noted. Fabian Burden DO (Electronically Signed) Final Date:17 September 2017 17:04
[2017-09-17] MEDS ORDERED: GETGO ROLLING W1 MI1 (17:26)
--- NOTE | 2017-09-17 17:51 | RADRPT ---
EXAM DATE/TIME: 09/17/2017 17:22 [facility] COMPARISON: CHEST SINGLE AP, September 15, 2017, 13:42. INDICATIONS : Shortness of breath. MEDICAL HISTORY : Congestive heart failure. Hypertension SURGICAL HISTORY : None. ENCOUNTER: Subsequent ACUITY: 2 days PAIN SCORE: 0/10 LOCATION: Bilateral chest FINDINGS: Persistent pleural-parenchymal opacities in the right lower lobe. Mild airspace disease in the left l ivon base obscuring the diaphragm. Cardiomediastinal contours are stable. Improved pulmonary vascular congestion. Remainder of exam is unchanged. CONCLUSION: 1. Improved pulmonary vascular congestion. 2. Persistent right-sided pleural effusion and associated airspace disease in the right lower lobe. 3. Persistent mild left lower lobe airspace disease which may reflect atelectasis. Héctor Estrada MD on September 17, 2017 at 17:47 Board Certified Radiologist. This report was verified electronically.
[2017-09-18] MEDS: HEPARIN SODIUM - SQ 10,000 UNITS/ML VIAL SQ SCH ×3 (01:22→15:38)
[2017-09-18 01:34] VITALS: BP 133/80; PULSE 105; RESP 20; TEMP 98.2; O2SAT 98
[2017-09-18 06:14] VITALS: BP 141/75; PULSE 106; RESP 20; O2SAT 96
[2017-09-18] MEDS: MULTIVITAMINS/MINERALS THERAPEUTIC TAB PO SCH (08:29)
[2017-09-18] MEDS: FERROUS SULFATE 325 MG (65 MG ELEMENTAL IRON) TAB PO SCH (08:29)
[2017-09-18] MEDS: hydrALAZINE HCL 25 MG TAB PO SCH (08:29)
[2017-09-18] MEDS: SODIUM CHLORIDE 0.9% FLUSH 10 ML FLUSH IV FLUSH SCH (08:30)
[2017-09-18] MEDS: ASPIRIN EC 81 MG TABEC PO SCH (08:30)
[2017-09-18] MEDS: DOCUSATE SODIUM 50 MG/SENNA 8.6 MG TAB PO SCH (08:31)
[2017-09-18] MEDS: SEVELAMER CARBONATE 800 MG TAB PO SCH ×2 (08:31→13:00)
--- NOTE | 2017-09-18 09:23 | HHI.PR ---
Subjective Remarks Follow-up on patient with CHF exacerbation. Patient seen and examined. Patient reports his breathing has improved. He denies any complaints of shortness of breath at this time. Discussed with Anca WOODS, who states patient required 2 L of oxygen overnight but has been satting well on room air this morning. Patient denies any chest pain. He denies any dizziness or headache. Denies any nausea, vomiting or abdominal pain. He is agreeable to rehab placement. Objective Vitals Vital Signs Date Time Temp Pulse Resp B/P (MAP) Pulse Ox O2 Delivery O2 Flow Rate FiO2 09/18/17 06:14 106 20 141/75 (97) 96 09/18/17 01:34 98.2 105 20 133/80 (97) 98 09/17/17 16:00 96 09/17/17 15:31 98.9 99 20 150/90 (110) 100 09/17/17 12:30 98.9 68 20 120/62 (81) 96 09/17/17 12:27 70 I/O 09/17/17 09/17/17 09/17/17 09/18/17 09/18/17 09/18/17 07:00 15:00 23:00 07:00 15:00 23:00 Intake Total 200 ml Balance 200 ml Intake Oral 200 ml # Voids 1 Result Diagram: 09/16/17 0700 09/17/17 1102 Imaging Last Impressions Chest X-Ray 09/17/17 0000 Signed Impressions: Service Date/Time: Sunday, September 17, 2017 17:22 - CONCLUSION: 1. Improved pulmonary vascular congestion. 2. Persistent right-sided pleural effusion and associated airspace disease in the right lower lobe. 3. Persistent mild left lower lobe airspace disease which may reflect atelectasis. Héctor Estrada MD Objective Remarks GENERAL: This is a thin somewhat ill appearing male patient, in no apparent distress. Awake and alert. Sitting up in bed. Significant other at the bedside. SKIN: Warm and dry. HEAD: Atraumatic. Normocephalic. EYES: Pupils equal round and reactive. Extraocular motions intact. No scleral icterus. Right conjunctiva erythematous over lateral aspect, nearly resolved. ENT: Nose without bleeding or purulent drainage. Airway patent. MMM. Poor dentition. NECK: Trachea midline. CARDIOVASCULAR: Regularly irregular without murmurs, gallops, or rubs. RESPIRATORY: Nonlabored. Diminished breath sounds R>L. No wheezing. GASTROINTESTINAL: Abdomen soft, non-tender, nondistended. +BS. MUSCULOSKELETAL: Extremities without clubbing or cyanosis. Trace to 1+ pitting edema bilateral lower extremities. No joint tenderness, effusion, or edema noted. No calf tenderness. NEUROLOGICAL: Awake and alert. Cranial nerves II through XII grossly intact. Motor and sensory grossly within normal limits. No focal neurologic findings appreciated. Normal speech. PSYCHIATRIC: Calm and cooperative. Appropriate mood and affect. Procedures 09/16 HD Medications and IVs Current Medications Medications (Trade) Dose Ordered Sig/Crispin Route Start Time Stop Time Status Last Admin (Ecotrin Ec) 81 mg DAILY PO 09/16/17 09:00 09/18/17 08:30 (Ferrous Sulfate) 324 mg BIDPC PO 09/15/17 18:00 09/18/17 08:29 (Apresoline) 25 mg BID PO 09/15/17 21:00 09/18/17 08:29 (Renvela) 1,600 mg TID PO 09/15/17 18:00 09/18/17 08:31 (NS Flush) 2 ml UNSCH PRN IV FLUSH 09/15/17 15:45 (NS Flush) 2 ml BID IV FLUSH 09/15/17 21:00 09/18/17 08:30 (Tylenol) 650 mg Q4H PRN PO 09/15/17 15:45 (Zofran Inj) 4 mg Q6H PRN IVP 09/15/17 15:45 (Reglan Inj) 5 mg Q6H PRN IV PUSH 09/15/17 15:45 (Heparin Inj) 5,000 units Q8H SQ 09/15/17 16:00 09/18/17 08:30 (Tylenol) 650 mg Q6H PRN PO 09/15/17 15:45 (Percocet 5-325 Mg) 1 tab Q6H PRN PO 09/15/17 15:45 (Percocet 10-325 Mg) 1 tab Q6H PRN PO 09/15/17 15:45 09/17/17 14:25 (Morphine Inj) 2 mg Q3H PRN IV PUSH 09/15/17 15:45 (Morphine Inj) 4 mg Q3H PRN IV PUSH 09/15/17 15:45 (Narcan Inj) 0.4 mg UNSCH PRN IV PUSH 09/15/17 15:45 (Ayla-Colace) 1 tab BID PO 09/15/17 21:00 09/16/17 21:39 (Milk Of Magnesia Liq) 30 ml Q12H PRN PO 09/15/17 15:45 (Senokot) 17.2 mg Q12H PRN PO 09/15/17 15:45 (Dulcolax Supp) 10 mg DAILY PRN RECTAL 09/15/17 15:45 (Lactulose Liq) 30 ml DAILY PRN PO 09/15/17 15:45 Sodium Chloride 1,000 ml @ 0 mls/hr Q0M PRN OTHER 09/15/17 22:18 (Heparin Inj) 8,000 units UNSCH PRN IV FLUSH 09/15/17 22:30 Sodium Chloride 1,000 ml @ 200 mls/hr Q5H PRN IV 09/15/17 22:18 09/16/17 09:50 Sodium Chloride 1,000 ml @ 0 mls/hr Q0M PRN OTHER 09/15/17 22:18 (Mannitol Inj) 12.5 gm UNSCH PRN IV 09/15/17 22:30 Albumin Human 100 ml @ 60 mls/hr UNSCH PRN IV 09/15/17 22:30 (NS Flush) 5 ml UNSCH PRN IV FLUSH 09/15/17 22:30 (Heparin Inj) UNSCH PRN .XX 09/15/17 22:30 (Gentamicin Inj) 20 mg UNSCH PRN OTHER 09/15/17 22:30 (Zofran Inj) 4 mg UNSCH PRN IV PUSH 09/15/17 22:30 (Tylenol) 650 mg UNSCH PRN PO 09/15/17 22:30 (Benadryl) 25 mg UNSCH PRN PO 09/15/17 22:30 (Nitrostat Sl) 0.4 mg UNSCH PRN SL 09/15/17 22:30 (Catapres) 0.1 mg UNSCH PRN PO 09/15/17 22:30 (Gelfoam 12 Mm/7 Mm Top) 1 foam UNSCH PRN TOP 09/15/17 22:30 09/16/17 09:51 (Theragran M Tab) 1 tab DAILY PO 09/17/17 09:00 09/18/17 08:29 A/P Assessment and Plan 61-year-old -[place] male with past medical history significant for congestive heart failure last echocardiogram in the system dated May 31, 2016 revealing EF of 25-30%, hx of bradycardia and PEA arrest, ESRD on HD TTHSat , hypertension, diabetes, hx of cocaine use and Hep C who presents to [facility] ED with complaints of progressive dyspnea for the past several weeks. Hypoxic metabolic encephalopathy, resolved Patient with increased somnolence following HD, ABG revealed hypoxic hypercapnic respiratory failure. Patient placed back on supplemental oxygen. Persistent right sided effusion. Repeat CXR 09/17 shows improved pulmonary vascular congestion, persistent right-sided pleural effusion which appears slightly worse than on previous imaging, persistent mild left lower lobe airspace disease, images reviewed by me Seen in consultation by pulmonology, appreciate assistance -Continue supplemental oxygen as needed -If pleural effusion worsens, consider thoracentesis. Will defer to pulmonary medicine. -Home oxygen walk test completed, patient qualified for oxygen at home. Case management consulted to assist with obtaining oxygen for home use. Acute on chronic systolic and diastolic congestive heart failure BNP greater than 5000 Last echocardiogram in the system dated May 31, 2016 revealing EF of 25-30% Repeat echocardiogram reveals severely reduced EF 20-25%, severe tricuspid regurgitation, moderate to severe pulmonary hypertension and large bilateral pleural effusions Patient seen in consultation by cardiology, appreciate recommendations. Patient not a AICD or LifeVest candidate at this time or amenable to BB therapy secondary to cocaine use. Cards recommends starting patient on ACEI but will defer to nephrology. -CHF teaching -continue strict I&Os -fluid restrictions -Continue supplemental oxygen to maintain O2 saturations greater than 92% -Continue to monitor respiratory status Elevated troponins, chronic, suspect secondary to end-stage renal disease Nonischemic cardiomyopathy, hx of cardiac cath 2012 revealing normal coronaries History of bradycardia and PEA arrest secondary to hyperkalemia Patient has no complaints of chest pain EKGs with T wave abnormality, unchanged from prior studies Per cardiology, unlikely ACS, more likely related to renal disease as well as LVH -Continuous cardiac telemetry -ASA 81mg daily End-stage renal disease on hemodialysis TTHSAT Nephrology following, appreciate assistance -continue HD schedule per Nephrology -continue on home dose of Renvela Hyperkalemia -management per Nephrology -BMP pending for today Hypertension, overall controlled -continue on home dose of hydralazine -monitor BP and adjust treatment accordingly Tachycardia, HR better this am Unable to give BB secondary to cocaine use Diabetes mellitus Last A1c in the system 6.0 09/23/15 Blood sugars well controlled -A1c level 5.9 -d/c accucheks and ISS History of ongoing tobaccoism -Discussed smoking cessation History of previous cocaine use UDS positive for cocaine 2015 Patient oliguric, unable to obtain urine specimen for UDS Patient admits to using cocaine 4 weeks ago Hep C -Avoid hepatotoxic agents -Standard precautions Anemia of chronic disease, stable Thrombocytopenia, secondary to renal failure No evidence of active bleeding -continue home dose of ferrous sulfate -Monitor CBC as indicated -Epogen per nephrology Weight loss Malnutrition, BMI 20.5 Physical deconditioning PT recommends rehab at discharge -Consult glue maker -Ming longo -Theragran M tablet daily -palliative care consult DVT prophylaxis -Heparin sq Discharge Planning Patient not ready for discharge. Discharge pending Pulmonary medicine and Nephrology clearance. Diana Buckley Sep 18, 2017 09:23
[2017-09-18 09:33] VITALS: BP 130/75; PULSE 97; RESP 18; TEMP 97.8; O2SAT 95
--- NOTE | 2017-09-18 10:37 | HHI.NPPN ---
Subjective Renal Failure: End Stage Renal Disease Additional Remarks No acute complaints, denies any shortness of breath. (Skylar Paulino) Review of Systems Respiratory Respiratory Remarks Denies any SOB (Skylar Paulino) Cardiovascular Cardiac Remarks denies any CP (Skylar Paulino) Gastrointestinal GI Remarks Denies abdominal pain (Skylar Paulino) Objective Data Data Vital Signs Date Time Temp Pulse Resp B/P (MAP) Pulse Ox O2 Delivery O2 Flow Rate FiO2 09/18/17 09:33 97.8 97 18 130/75 (93) 95 09/18/17 06:14 106 20 141/75 (97) 96 09/18/17 01:34 98.2 105 20 133/80 (97) 98 09/17/17 16:00 96 09/17/17 15:31 98.9 99 20 150/90 (110) 100 09/17/17 12:30 98.9 68 20 120/62 (81) 96 09/17/17 12:27 70 (Skylar Paulino) -: 09/16/17 0700 09/17/17 1102 Imaging Last Impressions Chest X-Ray 09/17/17 0000 Signed Impressions: Service Date/Time: Sunday, September 17, 2017 17:22 - CONCLUSION: 1. Improved pulmonary vascular congestion. 2. Persistent right-sided pleural effusion and associated airspace disease in the right lower lobe. 3. Persistent mild left lower lobe airspace disease which may reflect atelectasis. Héctor Estrada MD (Skylar Paulino) Physical Exam General Appearance: No Acute Distress (Skylar Paulino) Eyes Eye Exam: Pupils Equal (Skylar Paulino) Throat Throat Exam: Oral Mucosa [place] & Moist (Skylar Paulino) Neck Neck Exam: Neck Supple (Skylar Paulino) Pulmonary Resp Exam: Decreased Bases (Skylar Paulino) Cardiology CV Exam: Regular, Normal Sinus Rhythm (Skylar Paulino) Gastrointestinal/Abdomen GI Exam: Soft, Non-Tender (Skylar Paulino) Integumentary Skin Exam: Dry, Intact (Skylar Paulino) Extremeties Extremities Exam: Trace Edema (Skylar Paulino) Neurologic Neuro Exam: Oriented (Skylar Paulino) Assessment/Plan Problem List: (1) ESRD on hemodialysis ICD Codes: N18.6 - End-stage renal disease on hemodialysis; Z99.2 - Dependence on renal dialysis Status: Chronic Plan: 1. Fluid overload status and end-stage renal disease. 2. Pleural effusion and history of cardiomyopathy. 3. Hypertension. 4. Diabetes mellitus. 5. Mild anemia. 6. History of hepatitis C. 7. History of noncompliance. History of non-compliance with HD. Pleural effusion pulmonary consulted and amnaging. Plan next HD Monday. Cardiomyopathy Lisinopril added. Stable for d/c from renal standpoint. Encouraged compliance. Outpatient TTS HD (2) DM (diabetes mellitus) ICD Codes: E11.9 - Type 2 diabetes mellitus without complications Status: Chronic Plan: Glucose stable (3) Hypertension ICD Codes: I10 - Hypertension Status: Chronic Plan: BP stable, continue meds (4) Hepatitis C ICD Codes: B19.20 - Unspecified viral hepatitis C without hepatic coma Status: Acute (Skylar Paulino) Problem List: (1) ESRD on hemodialysis ICD Codes: N18.6 - End-stage renal disease on hemodialysis; Z99.2 - Dependence on renal dialysis Status: Chronic Plan: 1. Fluid overload status and end-stage renal disease. 2. Pleural effusion and history of cardiomyopathy. 3. Hypertension. 4. Diabetes mellitus. 5. Mild anemia. 6. History of hepatitis C. 7. History of noncompliance. History of non-compliance with HD. Pleural effusion pulmonary consulted and amnaging. Plan next HD Monday. Cardiomyopathy Lisinopril added. Stable for d/c from renal standpoint. Encouraged compliance. Outpatient TTS HD. Patient seen and examined, agree with above. Told to restrict fluid intake, and be compliant with HD. (2) DM (diabetes mellitus) ICD Codes: E11.9 - Type 2 diabetes mellitus without complications Status: Chronic Plan: Glucose stable (3) Hypertension ICD Codes: I10 - Hypertension Status: Chronic Plan: BP stable, continue meds (4) Hepatitis C ICD Codes: B19.20 - Unspecified viral hepatitis C without hepatic coma Status: Acute (Severo Peck MD) Skylar Paulino Sep 18, 2017 10:37 Severo Peck MD September 19, 2017 16:30
[2017-09-18 11:48] VITALS: BP 137/57; PULSE 93; RESP 20; O2SAT 100
--- NOTE | 2017-09-18 11:55 | PD.CARD.PN ---
Subjective Subjective Remarks No events overnight No chest pain Breath better overall Objective Medications Current Medications Medications (Trade) Dose Ordered Sig/Crispin Route Start Time Stop Time Status Last Admin (Ecotrin Ec) 81 mg DAILY PO 09/16/17 09:00 09/18/17 08:30 (Ferrous Sulfate) 324 mg BIDPC PO 09/15/17 18:00 09/18/17 08:29 (Apresoline) 25 mg BID PO 09/15/17 21:00 09/18/17 08:29 (Renvela) 1,600 mg TID PO 09/15/17 18:00 09/18/17 08:31 (NS Flush) 2 ml UNSCH PRN IV FLUSH 09/15/17 15:45 (NS Flush) 2 ml BID IV FLUSH 09/15/17 21:00 09/18/17 08:30 (Tylenol) 650 mg Q4H PRN PO 09/15/17 15:45 (Zofran Inj) 4 mg Q6H PRN IVP 09/15/17 15:45 (Reglan Inj) 5 mg Q6H PRN IV PUSH 09/15/17 15:45 (Heparin Inj) 5,000 units Q8H SQ 09/15/17 16:00 09/18/17 08:30 (Tylenol) 650 mg Q6H PRN PO 09/15/17 15:45 (Percocet 5-325 Mg) 1 tab Q6H PRN PO 09/15/17 15:45 (Percocet 10-325 Mg) 1 tab Q6H PRN PO 09/15/17 15:45 09/17/17 14:25 (Morphine Inj) 2 mg Q3H PRN IV PUSH 09/15/17 15:45 (Morphine Inj) 4 mg Q3H PRN IV PUSH 09/15/17 15:45 (Narcan Inj) 0.4 mg UNSCH PRN IV PUSH 09/15/17 15:45 (Ayla-Colace) 1 tab BID PO 09/15/17 21:00 09/16/17 21:39 (Milk Of Magnesia Liq) 30 ml Q12H PRN PO 09/15/17 15:45 (Senokot) 17.2 mg Q12H PRN PO 09/15/17 15:45 (Dulcolax Supp) 10 mg DAILY PRN RECTAL 09/15/17 15:45 (Lactulose Liq) 30 ml DAILY PRN PO 09/15/17 15:45 Sodium Chloride 1,000 ml @ 0 mls/hr Q0M PRN OTHER 09/15/17 22:18 (Heparin Inj) 8,000 units UNSCH PRN IV FLUSH 09/15/17 22:30 Sodium Chloride 1,000 ml @ 200 mls/hr Q5H PRN IV 09/15/17 22:18 09/16/17 09:50 Sodium Chloride 1,000 ml @ 0 mls/hr Q0M PRN OTHER 09/15/17 22:18 (Mannitol Inj) 12.5 gm UNSCH PRN IV 09/15/17 22:30 Albumin Human 100 ml @ 60 mls/hr UNSCH PRN IV 09/15/17 22:30 (NS Flush) 5 ml UNSCH PRN IV FLUSH 09/15/17 22:30 (Heparin Inj) UNSCH PRN .XX 09/15/17 22:30 (Gentamicin Inj) 20 mg UNSCH PRN OTHER 09/15/17 22:30 (Zofran Inj) 4 mg UNSCH PRN IV PUSH 09/15/17 22:30 (Tylenol) 650 mg UNSCH PRN PO 09/15/17 22:30 (Benadryl) 25 mg UNSCH PRN PO 09/15/17 22:30 (Nitrostat Sl) 0.4 mg UNSCH PRN SL 09/15/17 22:30 (Catapres) 0.1 mg UNSCH PRN PO 09/15/17 22:30 (Gelfoam 12 Mm/7 Mm Top) 1 foam UNSCH PRN TOP 09/15/17 22:30 09/16/17 09:51 (Theragran M Tab) 1 tab DAILY PO 09/17/17 09:00 09/18/17 08:29 (Prinivil) 5 mg DAILY PO 09/19/17 09:00 Vital Signs / I&O Vital Signs Date Time Temp Pulse Resp B/P (MAP) Pulse Ox O2 Delivery O2 Flow Rate FiO2 09/18/17 09:33 97.8 97 18 130/75 (93) 95 09/18/17 06:14 106 20 141/75 (97) 96 4/30/18 01:34 98.2 105 20 133/80 (97) 98 09/17/17 16:00 96 09/17/17 15:31 98.9 99 20 150/90 (110) 100 09/17/17 12:30 98.9 68 20 120/62 (81) 96 09/17/17 12:27 70 I/O 09/17/17 09/17/17 09/17/17 09/18/17 09/18/17 09/18/17 07:00 15:00 23:00 07:00 15:00 23:00 Intake Total 200 ml Balance 200 ml Intake Oral 200 ml # Voids 1 Physical Exam GENERAL: NAD, AAOx3 SKIN: Warm and dry. HEAD: Atraumatic. Normocephalic. EYES: Pupils equal and round. No scleral icterus. No injection or drainage. ENT: No nasal bleeding or discharge. Mucous membranes pink and moist. NECK: Trachea midline. No JVD. CARDIOVASCULAR: Regular rate and rhythm. RESPIRATORY: No accessory muscle use. Decreased breath sounds bilaterally GASTROINTESTINAL: Abdomen soft, non-tender, nondistended. Hepatic and splenic margins not palpable. MUSCULOSKELETAL: Extremities without clubbing, cyanosis, or edema. No obvious deformities. NEUROLOGICAL: Awake and alert. No obvious cranial nerve deficits. Motor grossly within normal limits. Five out of 5 muscle strength in the arms and legs. Normal speech. PSYCHIATRIC: Appropriate mood and affect; insight and judgment normal. Assessment and Plan Problem List: (1) Shortness of breath ICD Codes: R06.02 - Shortness of breath Status: Acute (2) CHF (congestive heart failure) ICD Codes: I50.9 - CHF (congestive heart failure) Status: Acute (3) Weakness ICD Codes: R53.1 - Weakness (4) Physical deconditioning ICD Codes: R53.81 - Other malaise (5) ESRD on hemodialysis ICD Codes: N18.6 - End-stage renal disease on hemodialysis; Z99.2 - Dependence on renal dialysis Status: Chronic (6) DM (diabetes mellitus) ICD Codes: E11.9 - Type 2 diabetes mellitus without complications Status: Chronic (7) Hypertension ICD Codes: I10 - Hypertension Status: Chronic (8) Non-ischemic cardiomyopathy ICD Codes: I42.8 - Other cardiomyopathies Status: Acute Assessment and Plan 1) SOB due to fluid overload state Feels better after HD B/L pleural effusions for thoracentesis Needs to keep weights at home to watch for fluid overload state 2) Minimal elevated troponins Chronic in nature Most likely due to renal disease/LVH No evidence of ACS 3) EF 20-25%, mild to moderate MR, severe TR, moderate to severe PHTN (RVSP 65mmHg) 4) Cocaine abuse Discussed ramifications of cocaine including, but not limited to, sudden cardiac , myocardial infarction, arrhythmias and heart failure 5) Con't medical management Not a candidate for ICD/Lifevest due to continued cocaine use No BB due to cocaine use Would leave consideration of KINDRA-I to nephrology Con't ASA 6) Tobacco cessation Fabian Burden DO Sep 18, 2017 11:55
[2017-09-18 12:20] VITALS: BP 137/77; PULSE 99; RESP 18; O2SAT 100
--- NOTE | 2017-09-18 12:20 | PD.RAD ---
Post US Procedure Prog Note Pre Procedure Diagnosis: (1) Pleural effusion Post Procedure Diagnosis: (1) Pleural effusion Procedure Date: Sep 18, 2017 Supervising Radiologist: Minh Winston Estimated blood loss: none Anesthesia: Local Plan of Activity Patient to Unit: Other Patient Condition: Good See PACS Report for procedural detail/treatment Drainage Procedure Procedure 1 Imaging Guidance: Ultrasound Side: Right Procedure Type: Thoracentesis Drainage: Suction Fluid Removal (CCs): 1440 Fluid Description: Clear, Yellow Plan CXR and if negative return to F pod. Minh Winston MD Sep 18, 2017 12:20
[2017-09-18] MEDS ORDERED: LIDOCAINE HCL 1% 20 ML VIAL ONE (12:21)
[2017-09-18 12:36] VITALS: BP 129/80; PULSE 80; RESP 18; TEMP 97; O2SAT 97
--- NOTE | 2017-09-18 12:48 | RADRPT ---
EXAM DATE/TIME: 09/18/2017 12:21 [facility] COMPARISON: CHEST SINGLE AP, September 17, 2017, 17:22. CHEST EXPIRATION ONLY, May 16, 2017, 15:25. INDICATIONS : Status post thoracentesis. MEDICAL HISTORY : Diabetes mellitus type II. Stroke. SURGICAL HISTORY : None. ENCOUNTER: Subsequent ACUITY: 4 - 6 days PAIN SCORE: 0/10 LOCATION: chest FINDINGS: A single AP erect portable view of the chest was obtained and demonstrates no pneumothorax. The right pleural effusion has improved. Both costophrenic angles are mildly blunted. The heart size appears m ildly enlarged. Hazy opacities present in both perihilar regions and lung bases left greater than rig ht. CONCLUSION: 1. No pneumothorax status post thoracentesis. 2. Bilateral effusions and infiltrate. Surendra Smiley MD on September 18, 2017 at 12:45 Board Certified Radiologist. This report was verified electronically.
--- NOTE | 2017-09-18 13:59 | RADRPT ---
EXAM DATE/TIME: 09/18/2017 11:42 [facility] COMPARISON: CHEST EXPIRATION ONLY, September 18, 2017, 12:21. US GUIDED THORACENTESIS RIGHT, May 16, 2017, 14:1 9. INDICATIONS : Right pleural effusion. MEDICAL HISTORY : Hypercholesterolemia. Myocardial infarction. Hepatitis C. CVA. Coronary artery disease. HTN. Renal fa ilure. Diabetes. Renal failure. Pleural effusion. MRSA. Acinetobacter. SURGICAL HISTORY : Left arm AV fistula. Dialysis. Thoracentesis. ENCOUNTER: Initial ACUITY: 4 - 6 months PAIN SCORE: 0/10 LOCATION: Right chest FLUID: Total volume of 1,400 cc of clear, yellow fluid was removed. Fluid was sent to lab for ordered studies. TECHNIQUE: 1. Ultrasound guidance for thoracentesis. 2. Thoracentesis. The risks, benefits, and alternatives to ultrasound guided thoracentesis were explained to the patien t in lay simple terms, including the risk of bleeding and infection. Written and verbal informed con sent was obtained. Appropriate area for thoracentesis was marked under ultrasound guidance with the patient in the uprig ht position. Overlying skin was prepped and draped in the usual sterile fashion and with local anest hetic, a dermatotomy was made with an 11 blade scalpel. A 6 Turkish thoracentesis catheter was placed in the pleural space and fluid was removed. Catheter was then removed and a sterile dressing applie d. There were no immediate complications. The patient tolerated the procedure well and the left the ultrasound suite in stable condition. Chest radiograph is to be obtained. CONCLUSION: Uncomplicated ultrasound guided right thoracentesis. Minh Winston MD on September 18, 2017 at 13:56 Board Certified Radiologist. This report was verified electronically.
[2017-09-18 14:37] LABS: PLEURAL FLUID HISTIOCYTES 54 %; PLEURAL FLUID LYMPHS 40 %; PLEURAL FLUID MESOTHELIAL 4 %; PLEURAL FLUID POLYS (SEGS) 2 %; PLEURAL FLUID RBC 580 /MM3 (0-0); PLEURAL FLUID WBC 46 /MM3 (0-10)
[2017-09-18 14:39] LABS: TOTAL PROTEIN,PLEURAL FLUID 2.9 GM/DL
--- NOTE | 2017-09-18 17:31 | PD.AMA ---
Against Medical Advice Note Diagnosis: (1) CHF exacerbation (2) Non-ischemic cardiomyopathy (3) Pleural effusion (4) Shortness of breath (5) ESRD on hemodialysis (6) DM (diabetes mellitus) (7) Hypertension (8) Hepatitis C (9) Weakness (10) Physical deconditioning Discharge Disposition: Against Medical Advice Pt Condition on Discharge: Guarded AMA Statement Patient Tenzin Bloom has decided to leave the hospital against medical advice. This patient has the capacity to refuse care and understands the risks of leaving, including permanent disability and/or , and has had an opportunity to ask questions about his condition. The patient has been informed that he may return for care at any time, and follow up has been arranged/ advised. Diana Buckley Sep 18, 2017 17:31
[2017-09-19] MEDS ORDERED: LISINOPRIL 5 MG TAB PO SCH (09:00)
== END 2017-09-18 17:21 | disposition left against medical advice (07) | DRG 291 ==
LOC: NEPE 11:57 → NEDA 15:38 → NEPHCDU 16:31 → NEPFCDU 09-17 18:54 → OBSVTOIN 09-18 10:43 → N05A 09-18 15:24
PROVIDERS: ADMIT Hospitalist; ATTEND Hospitalist
PROC: 0W993ZZ Drainage of Right Pleural Cavity, Percutaneous Approach (ICD-10-PCS; principal; 2017-09-16)
PROC: 5A1D70Z Performance of Urinary Filtration, Intermittent, Less than 6 Hours Per Day (ICD-10-PCS; 2017-09-18)
DX: I13.2 Hypertensive heart and chronic kidney disease with heart failure and with stage 5 chronic kidney disease, or end stage renal disease (principal); N18.6 End stage renal disease; J96.91 Respiratory failure, unspecified with hypoxia; G93.41 Metabolic encephalopathy; J96.92 Respiratory failure, unspecified with hypercapnia; D69.6 Thrombocytopenia, unspecified; J90 Pleural effusion, not elsewhere classified; E46 Unspecified protein-calorie malnutrition; E11.22 Type 2 diabetes mellitus with diabetic chronic kidney disease; I42.9 Cardiomyopathy, unspecified; I50.43 Acute on chronic combined systolic (congestive) and diastolic (congestive) heart failure; R00.0 Tachycardia, unspecified; F14.90 Cocaine use, unspecified, uncomplicated; E87.5 Hyperkalemia; B19.20 Unspecified viral hepatitis C without hepatic coma; D63.8 Anemia in other chronic diseases classified elsewhere; Z72.0 Tobacco use; Z88.2 Allergy status to sulfonamides; Z88.8 Allergy status to other drugs, medicaments and biological substances; Z79.82 Long term (current) use of aspirin; Z79.899 Other long term (current) drug therapy; Z99.2 Dependence on renal dialysis; Z68.20 Body mass index [BMI] 20.0-20.9, adult
CPT/HCPCS: 32555; 36600; 71045; 80048; 80053; 80061; 82550; 82552; 82805; 82945; 82948; 83036; 83615; 83735; 83880; 83986; 84100; 84157; 84439; 84443; 84484; 85025; 85610; 85730; 87070; 87205; 88112; 88305; 89051; 90935; 93005; 93306; 94618; C1729; G0257; G8987-GO; G8987-GP; G8988-GO; G8988-GP; J1644; J1940; J7030

== ENCOUNTER 2017-09-24 22:26 | Emergency (ER) | payer OTHER ==
[~2017-09-24 22:26] MED LIST changes: +GETGO ROLLING W1 MI1
[2017-09-24 22:33] VITALS: BP 135/71; PULSE 109; RESP 20; TEMP 97.1; O2SAT 99
--- NOTE | 2017-09-25 00:18 | PD ---
HPI Chief Complaint: Respiratory Symptoms Time Seen by Provider: 23:36 Travel History International Travel<30 days: No Contact w/Intl Traveler<30days: No Traveled to known affect area: No History of Present Illness HPI 61-year-old male complains of shortness of breath. Patient has history of end- stage renal disease on dialysis. Patient has dialysis on Monday, and Monday weekly. 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 Patient also has history of cardiomyopathy and pleural effusion. Patient has history hypertension, type II diabetes, anemia, hepatitis C. Patient was admitted to the hospital August and left AMA the next day. Patient states that he had persistent shortness of breath since admission. Patient denies any headache. Patient denies any chest pain. patient denies abdominal pain. Patient denies any nausea vomiting diarrhea. Patient denies any fever chills. The shortness of breath on past admission was due to fluid overload and got better after hemodialysis. Patient had ejection fraction of 15 2025% with moderate mitral regurgitation, severe tricuspid regurgitation. Patient also has history of cocaine abuse. Patient is a smoker. Patient denies any history of COPD or asthma. PFSH Past Medical History Hx Anticoagulant Therapy: Yes (aspirin 81) Asthma: No Autoimmune Disease: No Blood Disorders: No Anxiety: Yes (PTSD) Depression: No Heart Rhythm Problems: No Cancer: No Cardiovascular Problems: Yes High Cholesterol: Yes Chemotherapy: No Chest Pain: No Congestive Heart Failure: No COPD: No Cerebrovascular Accident: Yes Coronary Artery Disease: Yes Diabetes: Yes Patient Takes Glucophage: No Dialysis: Yes (//MON) Diminished Hearing: No Endocrine: No Gastrointestinal Disorders: No GERD: No Genitourinary: Yes (oliguric) Hepatitis: Yes (HEP C) Hiatal Hernia: No Hypertension: Yes Immune Disorder: No Implanted Vascular Access Dvce: Yes Musculoskeletal: Yes Neurologic: No Psychiatric: No Reproductive: No Respiratory: No Immunizations Current: Yes Myocardial Infarction: Yes Radiation Therapy: No Renal Failure: Yes Sleep Apnea: No Thyroid Disease: No Ulcer: No Past Surgical History AICD: No Arteriovenous Shunt: Yes (LEFT FA) Body Medical Devices: FISTULA Endocrine Surgery: Yes (FISTULA LEFT ARM) Genitourinary Surgery: Yes (SCROTAL SX) Insulin Pump: No Joint Replacement: No Pacemaker: No Other Surgery: Yes (FISTULA LEFT ARM) Social History Alcohol Use: No Tobacco Use: Yes (2 CIGS DAILY) Substance Use: No Allergies-Medications (Allergen,Severity, Reaction): Coded Allergies: Influenza Virus Vaccines (Verified Allergy, Severe, 09/24/17) Sulfa (Sulfonamide Antibiotics) (Unverified Allergy, Severe, Rash, 09/24/17) ibuprofen (Unverified Allergy, Severe, 09/24/17) *MDRO Multi-Drug Resistant Organism (Verified Adverse Reaction, Unknown, ) 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 Reported Meds & Prescriptions Reported Meds & Active Scripts Active Walker Rolling/GetGo (Device) 1 Mis Mis Ea .XX DIRECTED Reported Hydralazine HCl 25 Mg Tablet 25 Mg PO BID Ferrous Sulfate 325 Mg (65 Mg Iron) Tablet 324 Mg PO BIDPC Renvela (Sevelamer Carbonate) 800 Mg Tab 1,600 Mg PO TID Aspirin Adult Low Strength (Aspirin) 81 Mg Tabdr 81 Mg PO DAILY Review of Systems General / Constitutional: No: Fever Eyes: No: Visual changes HENT: No: Headaches Cardiovascular: No: Chest Pain or Discomfort Respiratory: Positive: Shortness of Breath Gastrointestinal: No: Abdominal Pain Genitourinary: No: Dysuria Musculoskeletal: No: Pain Skin: No Rash Neurologic: No: Weakness Psychiatric: No: Depression Endocrine: No: Polydipsia Hematologic/Lymphatic: No: Easy Bruising Physical Exam Narrative GENERAL: Well-nourished, well-developed patient. SKIN: Focused skin assessment warm/dry. HEAD: Normocephalic. EYES: No scleral icterus. No injection or drainage. NECK: Supple, trachea midline. No JVD or lymphadenopathy. CARDIOVASCULAR: Regular rate and rhythm without murmurs, gallops, or rubs. RESPIRATORY: Breath sounds equal bilaterally. No accessory muscle use. Patient has mild to moderate expiratory wheezes bilaterally. No rhonchi. GASTROINTESTINAL: Abdomen soft, non-tender, nondistended. MUSCULOSKELETAL: No cyanosis, or edema. BACK: Nontender without obvious deformity. No CVA tenderness. Neurologic exam normal. Data Data Last Documented VS Vital Signs Date Time Temp Pulse Resp B/P (MAP) Pulse Ox O2 Delivery O2 Flow Rate FiO2 09/25/17 00:28 98 Nasal Cannula 2.00 09/24/17 23:30 22 09/24/17 22:33 97.1 109 135/71 (92) Orders Orders Electrocardiogram (09/25/17 00:10) Complete Blood Count With Diff (09/25/17 00:10) Comprehensive Metabolic Panel (09/25/17 00:10) Magnesium (Mg) (09/25/17 00:10) Phosphorus (Po4) (09/25/17 00:10) Chest, Single Ap (09/25/17 00:10) Iv Access Insert/Monitor (09/25/17 00:10) Ecg Monitoring (09/25/17 00:10) Oximetry (09/25/17 00:10) Albuterol-Ipratropium Neb (Duoneb Neb) (09/25/17 00:15) Ed Discharge Order (09/25/17 01:22) Labs Laboratory Tests Test 09/25/17 00:00 White Blood Count 5.4 TH/MM3 Red Blood Count 3.91 MIL/MM3 Hemoglobin 12.0 GM/DL Hematocrit 36.4 % Mean Corpuscular Volume 93.2 FL Mean Corpuscular Hemoglobin 30.8 PG Mean Corpuscular Hemoglobin Concent 33.0 % Red Cell Distribution Width 19.2 % Platelet Count 138 TH/MM3 Mean Platelet Volume 11.0 FL Neutrophils (%) (Auto) 68.3 % Lymphocytes (%) (Auto) 16.7 % Monocytes (%) (Auto) 12.0 % Eosinophils (%) (Auto) 2.1 % Basophils (%) (Auto) 0.9 % Neutrophils # (Auto) 3.7 TH/MM3 Lymphocytes # (Auto) 0.9 TH/MM3 Monocytes # (Auto) 0.6 TH/MM3 Eosinophils # (Auto) 0.1 TH/MM3 Basophils # (Auto) 0.1 TH/MM3 CBC Comment DIFF FINAL Differential Comment Blood Urea Nitrogen 44 MG/DL Creatinine 5.37 MG/DL Random Glucose 88 MG/DL Total Protein 8.7 GM/DL Albumin 3.6 GM/DL Calcium Level 10.2 MG/DL Phosphorus Level 2.7 MG/DL Magnesium Level 2.2 MG/DL Alkaline Phosphatase 109 U/L Aspartate Amino Transf (AST/SGOT) 55 U/L Alanine Aminotransferase (ALT/SGPT) 24 U/L Total Bilirubin 0.5 MG/DL Sodium Level 141 MEQ/L Potassium Level 5.4 MEQ/L Chloride Level 103 MEQ/L Carbon Dioxide Level 28.5 MEQ/L Anion Gap 10 MEQ/L Estimat Glomerular Filtration Rate 13 ML/MIN MDM Medical Decision Making Medical Screen Exam Complete: Yes Emergency Medical Condition: Yes Interpretation(s) Last Impressions Chest X-Ray 09/25/17 0010 Signed Impressions: Service Date/Time: Monday, September 25, 2017 00:24 - CONCLUSION: Bilateral infiltrates right greater left.. Colton Juarez MD 1:11 AM. CBC WBC 5.4. Hemoglobin 12.0 hematocrit 36.4. Platelet 138. Normal differential. Potassium 5.4. BUN 44. Creatinine 5.37. GFR 13. AST 55. Differential Diagnosis Differential diagnosis including reactive airway disease, CHF, bronchitis, pneumonia, PE, pneumothorax. Narrative Course 61-year-old male with shortness of breath. History end-stage renal disease on dialysis. History of cardiomyopathy. Patient's wheezing today. Albuterol with Atrovent unit dose treatment 2. Diagnosis Primary Impression: CHF exacerbation Qualified Codes: I50.9 - Heart failure, unspecified Additional Impressions: Pleural effusion Reactive airway disease Qualified Codes: J45.40 - Moderate persistent asthma, uncomplicated Admitting Information Admitting Physician Requests: Admit Patient Instructions: General Instructions Additional Instructions: Continue with dialysis. Advised patient to remove more fluid for dialysis. Use albuterol inhaler as directed. Follow-up with personal physician. Return if worse. Med/Other Pt SpecificInfo: Prescription(s) given Scripts Albuterol 18 GM Inh (Ventolin Hfa 18 GM Inh) 90 Mcg/Act Aer 2 PUFF INH Q4-6H Y for SHORTNESS OF BREATH, #1 INHALER 0 Refills Prov: Enrrique Pandya MD 09/25/17 Disposition: 01 DISCHARGE HOME Condition: Stable Enrrique Pandya MD September 25, 2017 00:18
[2017-09-25 00:28] VITALS: O2SAT 98
[2017-09-25 00:28] LABS: AUTOMATED NEUTROPHIL # 3.7 TH/MM3 (1.8-7.7); BASOPHIL # 0.1 TH/MM3 (0-0.2); BASOPHIL % 0.9 % (0.0-2.0); EOSINOPHIL # 0.1 TH/MM3 (0-0.4); EOSINOPHIL % 2.1 % (0.0-4.0); HEMATOCRIT 36.4 % (39.0-51.0); LYMPH % 16.7 % (9.0-44.0); LYMPHOCYTE # 0.9 TH/MM3 (1.0-4.8); MEAN CELL VOLUME 93.2 FL (80.0-100.0); MEAN CORPUSCULAR HEMOGLOBIN 30.8 PG (27.0-34.0); MONOCYTE # 0.6 TH/MM3 (0-0.9); NEUT % 68.3 % (16.0-70.0); PLATELET COUNT 138 TH/MM3 (150-450); RED BLOOD COUNT 3.91 MIL/MM3 (4.50-5.90); RED CELL DISTRIBUTION WIDTH 19.2 % (11.6-17.2); WHITE BLOOD COUNT 5.4 TH/MM3 (4.0-11.0)
[2017-09-25] MEDS: RESP: ALBUTEROL 2.5 MG/IPRATROPIUM 0.5 MG NEB (SCH) INH ×2 (00:35→00:36)
--- NOTE | 2017-09-25 00:48 | RADRPT ---
EXAM DATE/TIME: 09/25/2017 00:24 [facility] COMPARISON: CHEST SINGLE AP, September 17, 2017, 17:22. INDICATIONS : Shortness of breath. MEDICAL HISTORY : Hypercholesterolemia. Hypertension Myocardial infarction. Cerebrovascular accident. Coronary ana ry disease. Diabetes. Hep C. Renal failure. Oliguric. SURGICAL HISTORY : Arteriovenous shunt, left FA. Scrotal surgery. Fistula left arm. Dialysis. ENCOUNTER: Initial ACUITY: 1 day PAIN SCORE: Non-responsive. LOCATION: Bilateral chest FINDINGS: A single view of the chest demonstrates bilateral lower lobe infiltrates right greater left. Small bi lateral pleural effusions. Apices are clear. Heart is borderline enlarged.. Osseous structures are i ntact. CONCLUSION: Bilateral infiltrates right greater left.. Colton Juarez MD on September 25, 2017 at 0:46 Board Certified Radiologist. This report was verified electronically.
[2017-09-25 00:58] LABS: ALKALINE PHOSPHATASE 109 U/L (45-117); PHOSPHORUS 2.7 MG/DL (2.5-4.9); TOTAL BILIRUBIN ADULT 0.5 MG/DL (0.2-1.0); TOTAL PROTEIN 8.7 GM/DL (6.4-8.2)
[2017-09-25 01:00] LABS: ALBUMIN 3.6 GM/DL (3.4-5.0); ALT (GPT) 24 U/L (12-78); AST (GOT) 55 U/L (15-37); BICARBONATE 28.5 MEQ/L (21.0-32.0); BLOOD UREA NITROGEN 44 MG/DL (7-18); CALCIUM 10.2 MG/DL (8.5-10.1); CHLORIDE 103 MEQ/L (98-107); CREATININE 5.37 MG/DL (0.60-1.30); GLOMERULAR FILTRATION RATE 13 ML/MIN (>89); GLUCOSE,RANDOM 88 MG/DL (74-106); MAGNESIUM 2.2 MG/DL (1.5-2.5); SODIUM (NA) 141 MEQ/L (136-145)
[2017-09-25] MEDS ORDERED: VENTAER INH (01:24)
[2017-09-25 01:32] VITALS: BP 132/64
--- NOTE | 2017-09-25 10:42 | EKG ---
Date Performed: 09/25/2017 Time Performed: 00:19:32 PTAGE: 61 years EKG: SINUS TACHYCARDIA WITH OCCASIONAL SUPRAVENTRICULAR PREMATURE COMPLEXES SEPTAL MYOCARDIAL IN FARCTION MODERATE T-WAVE ABNORMALITY, CONSIDER LATERAL ISCHEMIA ABNORMAL ECG Since the PREVIOUS TRACING , no significant change noted PREVIOUS TRACIN09/15/2017 22.21 DOCTOR: Lauro Johnston Interpretating Date/Time 09/25/2017 10:40:49
== END 2017-09-25 01:40 | disposition home or self-care (01) ==
LOC: NEPE 22:26
DX: I50.9 Heart failure, unspecified (principal); J45.40 Moderate persistent asthma, uncomplicated; R00.0 Tachycardia, unspecified; I13.2 Hypertensive heart and chronic kidney disease with heart failure and with stage 5 chronic kidney disease, or end stage renal disease; I25.10 Atherosclerotic heart disease of native coronary artery without angina pectoris; I25.2 Old myocardial infarction; E11.22 Type 2 diabetes mellitus with diabetic chronic kidney disease; N18.6 End stage renal disease; E78.00 Pure hypercholesterolemia, unspecified; F14.10 Cocaine abuse, uncomplicated; F43.10 Post-traumatic stress disorder, unspecified; Z72.0 Tobacco use; Z86.73 Personal history of transient ischemic attack (TIA), and cerebral infarction without residual deficits; Z86.19 Personal history of other infectious and parasitic diseases; Z99.2 Dependence on renal dialysis; Z88.2 Allergy status to sulfonamides; Z79.899 Other long term (current) drug therapy
CPT/HCPCS: 71045; 80053; 83735; 84100; 85025; 93005; 94640; 94664; 99285

== ENCOUNTER 2017-10-02 19:58 | Inpatient (IN) | payer OTHER ==
[~2017-10-02] VITALS: Ht 154.9 cm; Wt 61.3 kg
[2017-10-02 01:28] VITALS: PULSE 110
[~2017-10-02 19:58] MED LIST changes: +VENTAER INH
[2017-10-02 20:02] VITALS: BP 140/86; PULSE 100; RESP 18; TEMP 97.5; O2SAT 100
[2017-10-02] MEDS ORDERED: SODIUM CHLORIDE 0.9% FLUSH 10 ML FLUSH IVF PRN (20:30)
[2017-10-02] MEDS: RESP: ALBUTEROL 2.5 MG/IPRATROPIUM 0.5 MG NEB (SCH) INH (20:34)
[2017-10-02 20:50] VITALS: BP 155/82; PULSE 112; RESP 18; O2SAT 96
--- NOTE | 2017-10-02 20:51 | PD ---
HPI Chief Complaint: Respiratory Symptoms Time Seen by Provider: 20:08 Travel History International Travel<30 days: No Contact w/Intl Traveler<30days: No Traveled to known affect area: No History of Present Illness HPI 61-year-old male presents to the emergency department for evaluation of shortness of breath for 4-5 days. Patient has medical history of congestive heart failure last echocardiogram in the system dated May 31, 2016 revealing EF of 25-30%, hx of bradycardia and PEA arrest, ESRD on HD TTHSat, hypertension, diabetes, hx of cocaine use and Hep C. Patient was admitted the end of last month and left AGAINST MEDICAL ADVICE. Patient's chief port director is Dr. Peck. At first, he tells me his last dialysis was on Monday. Then after further questioning he states that he has not missed any dialysis sessions so it is unclear. He denies any fevers or chills. He denies chest pain. No abdominal pain. No nausea, vomiting, diarrhea. No exacerbating or alleviating factors. Moderate severity. PFSH Past Medical History Hx Anticoagulant Therapy: Yes (aspirin 81) Asthma: No Autoimmune Disease: No Blood Disorders: No Anxiety: Yes (PTSD) Depression: No Heart Rhythm Problems: No Cancer: No Cardiovascular Problems: Yes High Cholesterol: Yes Chemotherapy: No Chest Pain: No Congestive Heart Failure: No COPD: No Cerebrovascular Accident: Yes Coronary Artery Disease: Yes Diabetes: Yes Patient Takes Glucophage: No Dialysis: Yes (//MON) Diminished Hearing: No Endocrine: No Gastrointestinal Disorders: No GERD: No Genitourinary: Yes (oliguric) Hepatitis: Yes (HEP C) Hiatal Hernia: No Hypertension: Yes Immune Disorder: No Implanted Vascular Access Dvce: Yes Musculoskeletal: Yes Neurologic: No Psychiatric: No Reproductive: No Respiratory: No Immunizations Current: Yes Myocardial Infarction: Yes Radiation Therapy: No Renal Failure: Yes Sleep Apnea: No Thyroid Disease: No Ulcer: No Tetanus Vaccination: Unknown Influenza Vaccination: Yes Past Surgical History AICD: No Arteriovenous Shunt: Yes (LEFT FA) Body Medical Devices: FISTULA Endocrine Surgery: Yes (FISTULA LEFT ARM) Genitourinary Surgery: Yes (SCROTAL SX) Insulin Pump: No Joint Replacement: No Pacemaker: No Other Surgery: Yes (FISTULA LEFT ARM) Social History Alcohol Use: No Tobacco Use: Yes (2 CIGS DAILY) Substance Use: No Allergies-Medications (Allergen,Severity, Reaction): Coded Allergies: Influenza Virus Vaccines (Verified Allergy, Severe, 09/24/17) Sulfa (Sulfonamide Antibiotics) (Unverified Allergy, Severe, Rash, 09/24/17) ibuprofen (Unverified Allergy, Severe, 09/24/17) *MDRO Multi-Drug Resistant Organism (Verified Adverse Reaction, Unknown, ) 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 Reported Meds & Prescriptions Reported Meds & Active Scripts Active Ventolin Hfa 18 GM Inh (Albuterol Sulfate) 90 Mcg/Act Aer 2 Puff INH Q4-6H PRN Walker Rolling/GetGo (Device) 1 Mis Mis Ea .XX DIRECTED Reported Hydralazine HCl 25 Mg Tablet 25 Mg PO BID Ferrous Sulfate 325 Mg (65 Mg Iron) Tablet 324 Mg PO BIDPC Renvela (Sevelamer Carbonate) 800 Mg Tab 1,600 Mg PO TID Aspirin Adult Low Strength (Aspirin) 81 Mg Tabdr 81 Mg PO DAILY Review of Systems Except as stated in HPI: all other systems reviewed are Neg Physical Exam Narrative GENERAL: Well-nourished, well-developed male patient, afebrile SKIN: Focused skin assessment warm/dry. HEAD: Normocephalic. Atraumatic. EYES: No scleral icterus. No injection or drainage. NECK: Supple, trachea midline. No JVD or lymphadenopathy. CARDIOVASCULAR: Regular rate and rhythm without murmurs, gallops, or rubs. RESPIRATORY: Breath sounds equal bilaterally. No accessory muscle use. Slight expiratory wheezes noted throughout. Fine crackles noted to the bases. GASTROINTESTINAL: Abdomen soft, non-tender, nondistended. MUSCULOSKELETAL: No cyanosis, or edema. BACK: Nontender without obvious deformity. No CVA tenderness. Data Data Last Documented VS Vital Signs Date Time Temp Pulse Resp B/P (MAP) Pulse Ox O2 Delivery O2 Flow Rate FiO2 10/02/17 22:48 107 18 162/83 (109) Nasal Cannula 10/02/17 20:15 100 10/02/17 20:05 3.00 10/02/17 20:02 97.5 Orders Orders Complete Blood Count With Diff (10/02/17 20:26) Basic Metabolic Panel (Bmp) (10/02/17 20:26) B-Type Natriuretic Peptide (10/02/17 20:26) Act Partial Throm Time (Ptt) (10/02/17 20:26) Prothrombin Time / Inr (Pt) (10/02/17 20:26) Magnesium (Mg) (10/02/17 20:) Ckmb (Isoenzyme) Profile (10/02/17 20:) Troponin I (10/02/17 20:26) Iv Access Insert/Monitor (10/02/17 20:) Electrocardiogram (10/02/17:) Ecg Monitoring (10/02/17:) Oximetry (10/02/17 20:) Oxygen Administration (10/02/17 20:) Chest, Single Ap (10/02/17 20:) Sodium Chloride 0.9% Flush (Ns Flush) (10/02/17 20:30) Albuterol-Ipratropium Neb (Duoneb Neb) (10/02/17 20:30) Lactic Acid Sepsis Protocol (10/02/17 20:26) CKMB (10/02/17 20:35) CKMB% (10/02/17 20:35) Blood Culture (10/02/17 22:45) Azithromycin Inj (Zithromax Inj) (10/02/17 22:45) Ceftriaxone Inj (Rocephin Inj) (10/02/17 22:45) Furosemide Inj (Lasix Inj) (10/02/17 22:45) Calcium Gluconate Inj (Calcium Gluconate (10/02/17 22:45) Insulin Human Regular Inj (Novolin R Inj (10/02/17 23:00) Dextrose 50% In Erich (Vial) Inj (D50w (Vi (10/02/17 22:45) Sodium Bicarbonate 8.4% Inj (Sodium Bica (10/02/17 22:45) Labs Laboratory Tests Test 10/02/17 20:35 10/02/17 21:50 10/02/17 21:59 White Blood Count 5.2 TH/MM3 Red Blood Count 3.48 MIL/MM3 Hemoglobin 10.7 GM/DL Hematocrit 33.5 % Mean Corpuscular Volume 96.2 FL Mean Corpuscular Hemoglobin 30.7 PG Mean Corpuscular Hemoglobin Concent 31.9 % Red Cell Distribution Width 19.3 % Platelet Count 152 TH/MM3 Mean Platelet Volume 10.9 FL Neutrophils (%) (Auto) 65.9 % Lymphocytes (%) (Auto) 21.1 % Monocytes (%) (Auto) 10.6 % Eosinophils (%) (Auto) 1.0 % Basophils (%) (Auto) 1.4 % Neutrophils # (Auto) 3.4 TH/MM3 Lymphocytes # (Auto) 1.1 TH/MM3 Monocytes # (Auto) 0.6 TH/MM3 Eosinophils # (Auto) 0.1 TH/MM3 Basophils # (Auto) 0.1 TH/MM3 CBC Comment DIFF FINAL Differential Comment Blood Urea Nitrogen 65 MG/DL Creatinine 6.68 MG/DL Random Glucose 111 MG/DL Calcium Level 9.1 MG/DL Magnesium Level 2.2 MG/DL Sodium Level 141 MEQ/L Potassium Level 5.7 MEQ/L Chloride Level 107 MEQ/L Carbon Dioxide Level 22.4 MEQ/L Anion Gap 12 MEQ/L Estimat Glomerular Filtration Rate 10 ML/MIN Total Creatine Kinase 122 U/L Creatine Kinase MB 4.2 NG/ML Troponin I 0.11 NG/ML B-Type Natriuretic Peptide GREATER THAN 5000 PG/ML Prothrombin Time 14.5 SEC Prothromb Time International Ratio 1.4 RATIO Activated Partial Thromboplast Time 33.1 SEC MDM Medical Decision Making Medical Screen Exam Complete: Yes Emergency Medical Condition: Yes Medical Record Reviewed: Yes Differential Diagnosis CHF exacerbation versus pneumonia versus COPD exacerbation versus fluid overload versus ACS Narrative Course 61-year-old male with end-stage renal disease on hemodialysis presents to the emergency department for shortness of breath for the past 4-5 days. He was admitted approximately 2 weeks ago and left AGAINST MEDICAL ADVICE. It is unclear if he has been getting his dialysis as scheduled. EKG, CBC, BMP, BNP, magnesium, CK, troponin, lactic acid, PTT, PT/INR, chest x-ray are ordered and pending. Patient is given DuoNeb 2. EKG shows ST, HR 104. CBC shows no acute abnormality. BMP shows hyperkalemia 5.7, BUN 65, creatinine 6.68, hyperglycemia 111. BNP is greater than 5000. CK is 122. Troponin is 0.11. Magnesium is 2.2. Lactic acid is pending. Coags show no acute abnormal. Chest x-ray shows slight improvement in aeration of the left, persistent right base infiltrate and effusion. Blood cultures are ordered and pending. Patient is given azithromycin 500 g IV , Rocephin 1 g IV, furosemide 40 mg IV. Patient is given 1 g calcium gluconate , 10 units IV regular insulin, and 1 amp of D50, 1 amp of sodium bicarb for hyperkalemia. Patient will be admitted for CHF exacerbation, hyperkalemia, pneumonia, end- stage renal disease. His troponin is slightly elevated, most likely due to renal disease and CHF, but this should be trended. [facility] is paged for admission. Diagnosis Primary Impression: CHF exacerbation Qualified Codes: I50.9 - Heart failure, unspecified Additional Impressions: Hyperkalemia, diminished renal excretion ESRD on dialysis Pleural effusion Pneumonia Qualified Codes: J18.1 - Lobar pneumonia, unspecified organism Admitting Information Admitting Physician Requests: it Nida Carvalho October 02, 2017 20:51
--- NOTE | 2017-10-02 20:53 | RADRPT ---
EXAM DATE/TIME: 10/02/2017 20:33 [facility] COMPARISON: CHEST SINGLE AP, September 25, 2017, 0:24. INDICATIONS : Short of breath MEDICAL HISTORY : Hypercholesterolemia. Hypertension Myocardial infarction, Cerebrovascular accident. Coronary artery d isease. Diabetes. Hep C. Renal failure. Oliguric. SURGICAL HISTORY : Arteriovenous shunt, left FA. Scrotal surgery. Fistula left arm. Dialysis ENCOUNTER: Initial ACUITY: 1 day PAIN SCORE: 0/10 LOCATION: Bilateral chest FINDINGS: Persistent right base infiltrate and effusion and slight radiopacity of the left base which is improv ed. Cardiac contours are grossly unchanged with mild cardiac enlargement. CONCLUSION: Slight improvement in aeration on the left. Persistent right base infiltrate and effusion. Minh Silva MD on October 02, 2017 at 20:50 Board Certified Radiologist. This report was verified electronically.
[2017-10-02 21:35] LABS: AUTOMATED NEUTROPHIL # 3.4 TH/MM3 (1.8-7.7); BASOPHIL # 0.1 TH/MM3 (0-0.2); BASOPHIL % 1.4 % (0.0-2.0); EOSINOPHIL # 0.1 TH/MM3 (0-0.4); HEMATOCRIT 33.5 % (39.0-51.0); HEMOGLOBIN 10.7 GM/DL (13.0-17.0); LYMPH % 21.1 % (9.0-44.0); LYMPHOCYTE # 1.1 TH/MM3 (1.0-4.8); MEAN CELL VOLUME 96.2 FL (80.0-100.0); MEAN CORPUSCULAR HEMOGLOBIN 30.7 PG (27.0-34.0); MEAN CORPUSCULAR HGB CONC 31.9 % (32.0-36.0); MEAN PLATELET VOLUME 10.9 FL (7.0-11.0); MONO % 10.6 % (0.0-8.0); MONOCYTE # 0.6 TH/MM3 (0-0.9); NEUT % 65.9 % (16.0-70.0); PLATELET COUNT 152 TH/MM3 (150-450); RED BLOOD COUNT 3.48 MIL/MM3 (4.50-5.90); RED CELL DISTRIBUTION WIDTH 19.3 % (11.6-17.2); WHITE BLOOD COUNT 5.2 TH/MM3 (4.0-11.0)
[2017-10-02 22:26] LABS: BICARBONATE 22.4 MEQ/L (21.0-32.0); BLOOD UREA NITROGEN 65 MG/DL (7-18); CALCIUM 9.1 MG/DL (8.5-10.1); CHLORIDE 107 MEQ/L (98-107); CREATININE 6.68 MG/DL (0.60-1.30); GLOMERULAR FILTRATION RATE 10 ML/MIN (>89); GLUCOSE,RANDOM 111 MG/DL (74-106); MAGNESIUM 2.2 MG/DL (1.5-2.5); SODIUM (NA) 141 MEQ/L (136-145); TROPONIN I 0.11 NG/ML (0.02-0.05)
[2017-10-02 22:40] LABS: INTERNATIONAL NORMALIZED RATIO 1.4 RATIO; PROTHROMBIN TIME - PATIENT 14.5 SEC (9.8-11.6)
[2017-10-02] MEDS ORDERED: cefTRIAXone INJ 1,000 MG in SODIUM CHLORIDE 0.9% INJ 100 ML IV ONE (22:45)
[2017-10-02] MEDS ORDERED: FUROSEMIDE 40 MG/4 ML VIAL IV PUSH ONE (22:45)
[2017-10-02] MEDS ORDERED: AZITHROMYCIN INJ 500 MG in SODIUM CHLOR 0.9% 250 ML INJ 250 ML IV ONE (22:45)
[2017-10-02] MEDS ORDERED: DEXTROSE 50% IN WATER 50 ML VIAL(D50) IV PUSH ONE (22:45)
[2017-10-02] MEDS ORDERED: SODIUM BICARBONATE 8.4% SOLN 50 MEQ/50 ML VIAL SLOW IVP ONE (22:45)
[2017-10-02] MEDS ORDERED: CALCIUM GLUCONATE 10% 1 GM/10 ML VIAL SLOW IVP ONE (22:45)
[2017-10-02 22:48] VITALS: BP 162/83; PULSE 107; RESP 18
[2017-10-02] MEDS ORDERED: INSULIN HUMAN REGULAR 1,000 UNITS/10 ML VIAL IV PUSH ONE (23:00)
[2017-10-02 23:48] VITALS: BP 194/98; PULSE 110; RESP 20; O2SAT 95
[2017-10-03] VITALS (10 sets, daily range): BP systolic 106–152; BP diastolic 61–89; PULSE 84–119; RESP 18–25; TEMP 97.2–98.4; O2SAT 97–100
[2017-10-03] MEDS ORDERED: BISACODYL 10 MG SUPP RECTAL PRN
[2017-10-03] MEDS ORDERED: LACTULOSE SYRUP 20 GM/30 ML CUP PO PRN
[2017-10-03] MEDS ORDERED: SENNOSIDES 8.6 MG TAB PO PRN
[2017-10-03] MEDS ORDERED: NALOXONE HCL 0.4 MG/ML AMP IV PUSH PRN
[2017-10-03] MEDS ORDERED: ONDANSETRON HCL 4 MG/2 ML VIAL IVP PRN
[2017-10-03] MEDS ORDERED: MAGNESIUM HYDROXIDE SUSP 30 ML CUP PO PRN
[2017-10-03] MEDS: HEPARIN SODIUM - SQ 10,000 UNITS/ML VIAL SQ SCH ×2 (01:52→12:00)
[2017-10-03 04:08] LABS: BASOPHIL # 0.1 TH/MM3 (0-0.2); BASOPHIL % 1.2 % (0.0-2.0); EOSINOPHIL # 0.1 TH/MM3 (0-0.4); EOSINOPHIL % 0.9 % (0.0-4.0); HEMATOCRIT 34.7 % (39.0-51.0); HEMOGLOBIN 11.3 GM/DL (13.0-17.0); LYMPH % 5.7 % (9.0-44.0); LYMPHOCYTE # 0.4 TH/MM3 (1.0-4.8); MEAN CELL VOLUME 94.3 FL (80.0-100.0); MEAN CORPUSCULAR HEMOGLOBIN 30.6 PG (27.0-34.0); MEAN CORPUSCULAR HGB CONC 32.5 % (32.0-36.0); MEAN PLATELET VOLUME 10.5 FL (7.0-11.0); MONO % 17.7 % (0.0-8.0); MONOCYTE # 1.2 TH/MM3 (0-0.9); NEUT % 74.5 % (16.0-70.0); PLATELET COUNT 158 TH/MM3 (150-450); RED BLOOD COUNT 3.68 MIL/MM3 (4.50-5.90); RED CELL DISTRIBUTION WIDTH 19.5 % (11.6-17.2); WHITE BLOOD COUNT 6.7 TH/MM3 (4.0-11.0)
[2017-10-03 04:32] LABS: TROPONIN I 0.15 NG/ML (0.02-0.05)
[2017-10-03] MEDS: SEVELAMER CARBONATE 800 MG TAB PO SCH ×4 (08:18→17:12)
[2017-10-03] MEDS: ASPIRIN EC 81 MG TABEC PO SCH (08:18)
[2017-10-03] MEDS: hydrALAZINE HCL 25 MG TAB PO SCH ×3 (08:19→21:12)
[2017-10-03] MEDS: SODIUM CHLORIDE 0.9% FLUSH 10 ML FLUSH IV FLUSH SCH ×2 (08:19→21:12)
[2017-10-03] MEDS: DOCUSATE SODIUM 50 MG/SENNA 8.6 MG TAB PO SCH ×2 (08:19→21:00)
[2017-10-03 08:37] LABS: BICARBONATE 24.4 MEQ/L (21.0-32.0); CALCIUM 9.5 MG/DL (8.5-10.1); CREATININE 7.14 MG/DL (0.60-1.30)
--- NOTE | 2017-10-03 09:40 | EKG ---
Date Performed: 10/02/2017 Time Performed: 20:11:39 PTAGE: 61 years EKG: IRREGULAR SUPERVENTRICULAR RYTHM MOST CONSISTENT WITH SINUS TACHYCARDIA AND PAC'S. CLINCIAL CORRELATION RECOMMENDED ABNORMAL ECG AMENDED Since the PREVIOUS TRACING , no significant change noted PREVIOUS TRACIN09/25/2017 00.19 DOCTOR: Rose Batista Interpretating Date/Time 10/03/2017 19:36:21
[2017-10-03] MEDS ORDERED: SODIUM CHLOR 0.9% 1000 ML INJ 1,000 ML IV PRN (09:46)
[2017-10-03] MEDS ORDERED: SODIUM CHLOR 0.9% 1000 ML INJ 1,000 ML OTHER PRN ×2 (09:46)
[2017-10-03] MEDS ORDERED: SODIUM CHLORIDE 0.9% FLUSH 10 ML FLUSH IV FLUSH PRN ×2 (10:00)
[2017-10-03] MEDS ORDERED: GENTAMICIN SULFATE 20 MG/2 ML VIAL OTHER PRN (10:00)
[2017-10-03] MEDS ORDERED: ACETAMINOPHEN 325 MG TAB PO PRN ×2 (10:00)
[2017-10-03] MEDS ORDERED: ONDANSETRON HCL 4 MG/2 ML VIAL IV PUSH PRN (10:00)
[2017-10-03] MEDS ORDERED: NITROGLYCERIN 0.4 MG SL 25 TABS/BTL SL PRN (10:00)
[2017-10-03] MEDS ORDERED: GELATIN 12 MM/7 MM FOAM TOP PRN (10:00)
[2017-10-03] MEDS ORDERED: HEPARIN SODIUM - IV 10,000 UNITS/10 ML VIAL PRN (10:00)
[2017-10-03] MEDS ORDERED: HEPARIN SODIUM - IV 10,000 UNITS/10 ML VIAL IV FLUSH PRN (10:00)
[2017-10-03] MEDS ORDERED: MANNITOL 12.5 GM/50 ML VIAL IV PRN (10:00)
[2017-10-03] MEDS ORDERED: ALBUMIN 25% INJ 100 ML IV PRN (10:00)
[2017-10-03] MEDS ORDERED: diphenhydrAMINE HCL 25 MG CAP PO PRN (10:00)
[2017-10-03] MEDS ORDERED: cloNIDine HCL 0.1 MG TAB PO PRN (10:00)
--- NOTE | 2017-10-03 10:03 | PD.CONS ---
HPI Service Nephrology Consult Requested By Dr. Foster Reason for Consult End stage renal disease on hemodialysis Primary Care Physician [facility] History of Present Illness Patient is a 61 year old male with a past medical history of hypertension, diabetes, hx of cocaine use and hepatitits C, congestive heart failure with EF of 25-30%, hx of bradycardia and PEA arrest, and end stage renal disease on hemodialysis Monday, , and Monday. Presented to hospital with worsening shortness of breath over the last 4-5 days. Patient was admitted the end of last month and left against medical advise and was also admitted to [facility] for fluid overload. Nephrology is consulted for management of end stage renal disease. Last dialysis was on Monday. Dialysis arrangements made. 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 Past Medical History End-stage renal disease on hemodialysis Monday, , and Monday Hypertension Diabetes mellitus Cardiomyopathy with EF 25-30% Hepatitis C Ongoing tobaccoism Cocaine user chronic anemia Past Surgical History ORIF finger Left upper extremity fistula 09/14/12 Cardiac catheterization in 2012 Active Ordered Medications Current Medications Medications (Trade) Dose Ordered Sig/Crispin Route Start Time Stop Time Status Last Admin Ceftriaxone Sodium 1000 mg/ Sodium Chloride 100 ml @ 200 mls/hr Q24H IV 10/03/17 23:00 Azithromycin 500 mg/Sodium Chloride 250 ml @ 250 mls/hr Q24H IV 10/03/17 23:00 (NS Flush) 2 ml UNSCH PRN IV FLUSH 10/03/17 00:00 (NS Flush) 2 ml BID IV FLUSH 10/03/17 09:00 10/03/17 08:19 (Tylenol) 650 mg Q4H PRN PO 10/03/17 00:00 (Zofran Inj) 4 mg Q6H PRN IVP 10/03/17 00:00 (Heparin Inj) 5,000 units Q12H SQ 10/03/17 00:00 10/03/17 01:52 (Narcan Inj) 0.4 mg UNSCH PRN IV PUSH 10/03/17 00:00 (Ayla-Colace) 1 tab BID PO 10/03/17 09:00 (Milk Of Magnesia Liq) 30 ml Q12H PRN PO 10/03/17 00:00 (Senokot) 17.2 mg Q12H PRN PO 10/03/17 00:00 (Dulcolax Supp) 10 mg DAILY PRN RECTAL 10/03/17 00:00 (Lactulose Liq) 30 ml DAILY PRN PO 10/03/17 00:00 (Ecotrin Ec) 81 mg DAILY PO 10/03/17 09:00 10/03/17 08:18 (Apresoline) 25 mg BID PO 10/03/17 09:00 (Renvela) 1,600 mg TID PO 10/03/17 09:00 10/03/17 08:18 Sodium Chloride 1,000 ml @ 0 mls/hr Q0M PRN OTHER 10/03/17 09:46 (Heparin Inj) 8,000 units UNSCH PRN IV FLUSH 10/03/17 10:00 Sodium Chloride 1,000 ml @ 200 mls/hr Q5H PRN IV 10/03/17 09:46 Sodium Chloride 1,000 ml @ 0 mls/hr Q0M PRN OTHER 10/03/17 09:46 (Mannitol Inj) 12.5 gm UNSCH PRN IV 10/03/17 10:00 Albumin Human 100 ml @ 60 mls/hr UNSCH PRN IV 10/03/17 10:00 (NS Flush) 5 ml UNSCH PRN IV FLUSH 10/03/17 10:00 (Heparin Inj) UNSCH PRN .XX 10/03/17 10:00 (Gentamicin Inj) 20 mg UNSCH PRN OTHER 10/03/17 10:00 (Zofran Inj) 4 mg UNSCH PRN IV PUSH 10/03/17 10:00 (Tylenol) 650 mg UNSCH PRN PO 10/03/17 10:00 (Benadryl) 25 mg UNSCH PRN PO 10/03/17 10:00 (Nitrostat Sl) 0.4 mg UNSCH PRN SL 10/03/17 10:00 (Catapres) 0.1 mg UNSCH PRN PO 10/03/17 10:00 (Gelfoam 12 Mm/7 Mm Top) 1 foam UNSCH PRN TOP 10/03/17 10:00 Family History Noncontributory Social History The patient is single and lives with his girlfriend. He admits to smoking and also uses cocaine off and on. There is no history of heavy alcoholism. (Skylar Paulino) Physical Exam Vital Signs Vital Signs Date Time Temp Pulse Resp B/P (MAP) Pulse Ox O2 Delivery O2 Flow Rate FiO2 10/03/17 08:45 97.9 117 25 133/83 (100) 98 10/03/17 04:05 102 10/03/17 03:35 97.4 84 20 117/74 (88) 100 10/03/17 03:35 Nasal Cannula 2.00 10/03/17 01:28 110 10/03/17 00:45 Nasal Cannula 2.00 10/03/17 00:45 97.2 108 18 152/89 (110) 100 10/03/17 00:06 10/02/17 23:48 110 20 194/98 (130) 95 Room Air 10/02/17 22:48 107 18 162/83 (109) Nasal Cannula 10/02/17 20:50 112 18 155/82 (106) 96 Nasal Cannula 10/02/17 20:15 100 10/02/17 20:05 Nasal Cannula 3.00 10/02/17 20:02 97.5 100 18 140/86 (104) 100 Physical Exam GENERAL: Alert and oriented SKIN: Warm and dry. HEAD: Normocephalic. EYES: No scleral icterus. No injection or drainage. NECK: Supple, trachea midline. No JVD or lymphadenopathy. CARDIOVASCULAR: Regular rate and rhythm without murmurs, gallops, or rubs. RESPIRATORY: Breath sounds diminished. No accessory muscle use. GASTROINTESTINAL: Abdomen soft, non-tender, nondistended. MUSCULOSKELETAL: No cyanosis, mild lower extremity edema. BACK: Nontender without obvious deformity. No CVA tenderness. Laboratory Laboratory Tests Test 10/02/17 20:35 10/02/17 21:50 10/02/17 21:59 10/03/17 03:53 White Blood Count 5.2 Red Blood Count 3.48 Hemoglobin 10.7 Hematocrit 33.5 Mean Corpuscular Volume 96.2 Mean Corpuscular Hemoglobin 30.7 Mean Corpuscular Hemoglobin Concent 31.9 Red Cell Distribution Width 19.3 Platelet Count 152 Mean Platelet Volume 10.9 Neutrophils (%) (Auto) 65.9 Lymphocytes (%) (Auto) 21.1 Monocytes (%) (Auto) 10.6 Eosinophils (%) (Auto) 1.0 Basophils (%) (Auto) 1.4 Neutrophils # (Auto) 3.4 Lymphocytes # (Auto) 1.1 Monocytes # (Auto) 0.6 Eosinophils # (Auto) 0.1 Basophils # (Auto) 0.1 CBC Comment DIFF FINAL Differential Comment Blood Urea Nitrogen 65 Creatinine 6.68 Random Glucose 111 Calcium Level 9.1 Magnesium Level 2.2 Sodium Level 141 Potassium Level 5.7 Chloride Level 107 Carbon Dioxide Level 22.4 Anion Gap 12 Estimat Glomerular Filtration Rate 10 Total Creatine Kinase 122 Creatine Kinase MB 4.2 Troponin I 0.11 B-Type Natriuretic Peptide GREATER THAN 5000 Prothrombin Time 14.5 Prothromb Time International Ratio 1.4 Activated Partial Thromboplast Time 33.1 Lactic Acid Level 0.7 Blood Gas Puncture Site RT RADIAL Blood Gas Patient Temperature 98.6 Blood Gas HCO3 19 Blood Gas Base Excess -4.1 Blood Gas Oxygen Saturation 96 Arterial Blood pH 7.45 Arterial Blood Partial Pressure CO2 28 Arterial Blood Partial Pressure O2 98 Arterial Blood Oxygen Content 13.9 Arterial Blood Carboxyhemoglobin 1.8 Arterial Blood Methemoglobin 0.8 Blood Gas Hemoglobin 10.2 Oxygen Delivery Device NASAL CANNULA Blood Gas Liter Flow 2 Test 10/03/17 03:56 White Blood Count 6.7 Red Blood Count 3.68 Hemoglobin 11.3 Hematocrit 34.7 Mean Corpuscular Volume 94.3 Mean Corpuscular Hemoglobin 30.6 Mean Corpuscular Hemoglobin Concent 32.5 Red Cell Distribution Width 19.5 Platelet Count 158 Mean Platelet Volume 10.5 Neutrophils (%) (Auto) 74.5 Lymphocytes (%) (Auto) 5.7 Monocytes (%) (Auto) 17.7 Eosinophils (%) (Auto) 0.9 Basophils (%) (Auto) 1.2 Neutrophils # (Auto) 5.0 Lymphocytes # (Auto) 0.4 Monocytes # (Auto) 1.2 Eosinophils # (Auto) 0.1 Basophils # (Auto) 0.1 CBC Comment DIFF FINAL Differential Comment Blood Urea Nitrogen 70 Creatinine 7.14 Random Glucose 76 Calcium Level 9.5 Sodium Level 143 Potassium Level 4.9 Chloride Level 108 Carbon Dioxide Level 24.4 Anion Gap 11 Estimat Glomerular Filtration Rate 10 Total Creatine Kinase 104 Troponin I 0.15 Date/Time Source Procedure Growth Status 10/03/17 07:35 Blood Peripheral Aerobic Blood Culture Pending Received 10/03/17 07:35 Blood Peripheral Anaerobic Blood Culture Pending Received (Skylar Paulino) Result Diagram: 10/03/1735510/03/17355 Imaging Last Impressions Chest X-Ray 10/02/172025 Signed Impressions: Service Date/Time: Monday, October 02, 2017 20:33 - CONCLUSION: Slight improvement in aeration on the left. Persistent right base infiltrate and effusion. Minh Silva MD (Skylar Paulino) Assessment and Plan Problem List: (1) ESRD on dialysis ICD Codes: N18.6 - End stage renal failure on dialysis; Z99.2 - Dependence on renal dialysis Status: Chronic Plan: Hemodialysis Monday/ / Monday Orders placed for hemodialysis today will remove fluid as tolerated. Fluid restriction ordered. Avoid fluid administration Continue renvela Labs in AM (2) CHF exacerbation ICD Codes: I50.9 - Heart failure, unspecified Status: Acute Plan: Dialysis //Mon remove fluid as tolerated (3) Pneumonia ICD Codes: J18.9 - Pneumonia, unspecified organism Status: Acute Plan: on antibiotics (Skylar Paulino) Problem List: (1) ESRD on dialysis ICD Codes: N18.6 - End stage renal failure on dialysis; Z99.2 - Dependence on renal dialysis Status: Chronic Plan: Hemodialysis Monday/ / Monday Orders placed for hemodialysis today will remove fluid as tolerated. Fluid restriction ordered. Avoid fluid administration Continue renvela Labs in AM. Patient seen and examined, agree with above. Continue antibiotics for pneumonia, HD done and tolerated well. Told to restrict fluid intake. (2) CHF exacerbation ICD Codes: I50.9 - Heart failure, unspecified Status: Acute Plan: Dialysis T/TH/Sat remove fluid as tolerated (3) Pneumonia ICD Codes: J18.9 - Pneumonia, unspecified organism Status: Acute Plan: on antibiotics (Severo Peck MD) Problem Qualifiers (1) CHF exacerbation: Qualified Codes: I50.9 - Heart failure, unspecified (2) Pneumonia: Qualified Codes: J18.1 - Lobar pneumonia, unspecified organism Skylar Paulino October 03, 2017 10:03 Severo Peck MD October 03, 2017 21:18
--- NOTE | 2017-10-03 10:39 | HHI.HP ---
[facility] Admission Diagnosis CHF exacerbation, ESRD on hemodialysis, pneumonia, hyperkalemia Diagnoses: Chief Complaint: Shortness of breath Travel History International Travel<30 Days: No Contact w/Intl Traveler <30 Da: No Traveled to Known Affected Are: No History of Present Illness 61-year-old male with a medical history significant for CHF with LVEF around 25- 30%, end-stage renal disease on hemodialysis, history of bradycardia and PEA arrest, diabetes, cocaine abuse who presented to the emergency room with complaint of worsening shortness of breath for the past 3 days. Patient has had repeated admissions for fluid overload. His in the room reports that he did have dialysis as scheduled on Monday. He has been coughing. No fevers or chills. Lower extremity edema is persistent but has not gotten worse. He denies chest pain. The patient left AGAINST MEDICAL ADVICE from his last admission here and he was admitted to [facility] for fluid overload. As noted above, multiple presentation this year for fluid overload. He does use cocaine. My evaluation today, he reports shortness of breath and he is coughing. Discussed with RN reported some apneic episode leading to hypoxemia. Blood gas show mild alkalosis with low CO2 otherwise grossly unremarkable. Chest x-ray showed pleural effusion and infiltrate on the right base, left side looks improved. Review of Systems Constitutional: DENIES: Fever, Chills Respiratory: COMPLAINS OF: Apneas, Cough, Shortness of breath Cardiovascular: COMPLAINS OF: Dyspnea on Exertion, Lower Extremity Edema, DENIES: Chest pain Gastrointestinal: DENIES: Nausea, Vomiting Except as stated in HPI: all other systems reviewed are Neg Past Family Social History Past Medical History End-stage renal disease on hemodialysis, TTHSAT Hypertension Diabetes mellitus Cardiomyopathy with EF 25-30% Hepatitis C Ongoing tobaccoism Cocaine user chronic anemia Past Surgical History ORIF finger Left upper extremity fistula 09/14/12 Cardiac catheterization in 2013 Reported Medications Reported Meds & Active Scripts Active Ventolin Hfa 18 GM Inh (Albuterol Sulfate) 90 Mcg/Act Aer 2 Puff INH Q4-6H PRN Walker Rolling/GetGo (Device) 1 Mis Mis Ea .XX DIRECTED Reported Hydralazine HCl 25 Mg Tablet 25 Mg PO BID Ferrous Sulfate 325 Mg (65 Mg Iron) Tablet 324 Mg PO BIDPC Renvela (Sevelamer Carbonate) 800 Mg Tab 1,600 Mg PO TID Aspirin Adult Low Strength (Aspirin) 81 Mg Tabdr 81 Mg PO DAILY Allergies: Coded Allergies: Influenza Virus Vaccines (Verified Allergy, Severe, 09/24/17) Sulfa (Sulfonamide Antibiotics) (Unverified Allergy, Severe, Rash, 09/24/17) ibuprofen (Unverified Allergy, Severe, 09/24/17) *MDRO Multi-Drug Resistant Organism (Verified Adverse Reaction, Unknown, ) 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 Physical Exam Vital Signs Vital Signs Date Time Temp Pulse Resp B/P (MAP) Pulse Ox O2 Delivery O2 Flow Rate FiO2 10/03/17 08:45 97.9 117 25 133/83 (100) 98 10/03/17 04:05 102 10/03/17 03:35 97.4 84 20 117/74 (88) 100 10/03/17 03:35 Nasal Cannula 2.00 10/03/17 01:28 110 10/03/17 00:45 Nasal Cannula 2.00 10/03/17 00:45 97.2 108 18 152/89 (110) 100 10/03/17 00:06 10/02/17 23:48 110 20 194/98 (130) 95 Room Air 10/02/17 22:48 107 18 162/83 (109) Nasal Cannula 10/02/17 20:50 112 18 155/82 (106) 96 Nasal Cannula 10/02/17 20:15 100 10/02/17 20:05 Nasal Cannula 3.00 10/02/17 20:02 97.5 100 18 140/86 (104) 100 Physical Exam GENERAL: Appear chronically ill. Mild shortness of breath. CARDIOVASCULAR: Regular rate and rhythm without murmurs, gallops, or rubs. RESPIRATORY: Markedly diminished breath sounds at the bases. No wheezing. Rest of the lung buitrago clear to auscultation. GASTROINTESTINAL: Abdomen soft, non-tender, nondistended. No hepato-splenomegaly , or palpable masses. No guarding. MUSCULOSKELETAL: Extremities without clubbing, cyanosis, or edema. No joint tenderness, effusion, or edema noted. No calf tenderness. Negative Homans sign bilaterally. NEUROLOGICAL: Awake and alert. Cranial nerves II through XII intact. Motor and sensory grossly within normal limits. Five out of 5 muscle strength in all muscle groups. Normal speech. PSYCH: Appear anxious. Laboratory Laboratory Tests Test 10/02/17 20:35 10/02/17 21:50 10/02/17 21:59 10/03/17 03:53 White Blood Count 5.2 Red Blood Count 3.48 Hemoglobin 10.7 Hematocrit 33.5 Mean Corpuscular Volume 96.2 Mean Corpuscular Hemoglobin 30.7 Mean Corpuscular Hemoglobin Concent 31.9 Red Cell Distribution Width 19.3 Platelet Count 152 Mean Platelet Volume 10.9 Neutrophils (%) (Auto) 65.9 Lymphocytes (%) (Auto) 21.1 Monocytes (%) (Auto) 10.6 Eosinophils (%) (Auto) 1.0 Basophils (%) (Auto) 1.4 Neutrophils # (Auto) 3.4 Lymphocytes # (Auto) 1.1 Monocytes # (Auto) 0.6 Eosinophils # (Auto) 0.1 Basophils # (Auto) 0.1 CBC Comment DIFF FINAL Differential Comment Blood Urea Nitrogen 65 Creatinine 6.68 Random Glucose 111 Calcium Level 9.1 Magnesium Level 2.2 Sodium Level 141 Potassium Level 5.7 Chloride Level 107 Carbon Dioxide Level 22.4 Anion Gap 12 Estimat Glomerular Filtration Rate 10 Total Creatine Kinase 122 Creatine Kinase MB 4.2 Troponin I 0.11 B-Type Natriuretic Peptide GREATER THAN 5000 Prothrombin Time 14.5 Prothromb Time International Ratio 1.4 Activated Partial Thromboplast Time 33.1 Lactic Acid Level 0.7 Blood Gas Puncture Site RT RADIAL Blood Gas Patient Temperature 98.6 Blood Gas HCO3 19 Blood Gas Base Excess -4.1 Blood Gas Oxygen Saturation 96 Arterial Blood pH 7.45 Arterial Blood Partial Pressure CO2 28 Arterial Blood Partial Pressure O2 98 Arterial Blood Oxygen Content 13.9 Arterial Blood Carboxyhemoglobin 1.8 Arterial Blood Methemoglobin 0.8 Blood Gas Hemoglobin 10.2 Oxygen Delivery Device NASAL CANNULA Blood Gas Liter Flow 2 Test 10/03/17 03:56 White Blood Count 6.7 Red Blood Count 3.68 Hemoglobin 11.3 Hematocrit 34.7 Mean Corpuscular Volume 94.3 Mean Corpuscular Hemoglobin 30.6 Mean Corpuscular Hemoglobin Concent 32.5 Red Cell Distribution Width 19.5 Platelet Count 158 Mean Platelet Volume 10.5 Neutrophils (%) (Auto) 74.5 Lymphocytes (%) (Auto) 5.7 Monocytes (%) (Auto) 17.7 Eosinophils (%) (Auto) 0.9 Basophils (%) (Auto) 1.2 Neutrophils # (Auto) 5.0 Lymphocytes # (Auto) 0.4 Monocytes # (Auto) 1.2 Eosinophils # (Auto) 0.1 Basophils # (Auto) 0.1 CBC Comment DIFF FINAL Differential Comment Blood Urea Nitrogen 70 Creatinine 7.14 Random Glucose 76 Calcium Level 9.5 Sodium Level 143 Potassium Level 4.9 Chloride Level 108 Carbon Dioxide Level 24.4 Anion Gap 11 Estimat Glomerular Filtration Rate 10 Total Creatine Kinase 104 Troponin I 0.15 Date/Time Source Procedure Growth Status 10/03/17 07:35 Blood Peripheral Aerobic Blood Culture Pending Received 10/03/17 07:35 Blood Peripheral Anaerobic Blood Culture Pending Received Result Diagram: 10/03/17 0356 10/03/17 0356 Imaging Last Impressions Chest X-Ray 10/02/172025 Signed Impressions: Service Date/Time: Monday, October 02, 2017 20:33 - CONCLUSION: Slight improvement in aeration on the left. Persistent right base infiltrate and effusion. MD Mindi Galarza VTE Risk Assessment Mindi VTE Risk Assessment: Mod/High Risk (score >= 2) Caprini Risk Assessment Model Point Value = 1 Point Value = 2 Point Value = 3 Point Value = 5 Age 41-60 Minor surgery BMI > 25 kg/m2 Swollen legs Varicose veins or History of unexplained or recurrent spontaneous Oral contraceptives or hormone replacement Sepsis (< 1 month) Serious lung disease, including pneumonia (< 1 month) Abnormal pulmonary function Acute myocardial infarction Congestive heart failure (< 1 month) History of inflammatory bowel disease Medical patient at bed rest Age 61-74 Arthroscopic surgery Major open surgery (> 45 min) Laparoscopic surgery (> 45 min) Malignancy Confined to bed (> 72 hours) Immobilizing plaster cast Central venous access Age >= 75 History of VTE Family history of VTE Factor V Leiden Prothrombin [id number] Lupus anticoagulant Anticardiolipin antibodies Elevated serum homocysteine Heparin-induced thrombocytopenia Other congenital or acquired thrombophilia Stroke (< 1 month) Elective arthroplasty Hip, pelvis, or leg fracture Acute spinal cord injury (< 1 month) Prophylaxis Regimen Total Risk Factor Score Risk Level Prophylaxis Regimen 0-1 Low Early ambulation 2 Moderate Order ONE of the following: *Sequential Compression Device (SCD) *Heparin 5000 units SQ BID 3-4 Higher Order ONE of the following medications: *Heparin 5000 units SQ TID *Enoxaparin/Lovenox 40 mg SQ daily (WT < 150 kg, CrCl > 30 mL/min) *Enoxaparin/Lovenox 30 mg SQ daily (WT < 150 kg, CrCl > 10-29 mL/min) *Enoxaparin/Lovenox 30 mg SQ BID (WT < 150 kg, CrCl > 30 mL/min) AND/OR *Sequential Compression Device (SCD) 5 or more Highest Order ONE of the following medications: *Heparin 5000 units SQ TID (Preferred with Epidurals) *Enoxaparin/Lovenox 40 mg SQ daily (WT < 150 kg, CrCl > 30 mL/min) *Enoxaparin/Lovenox 30 mg SQ daily (WT < 150 kg, CrCl > 10-29 mL/min) *Enoxaparin/Lovenox 30 mg SQ BID (WT < 150 kg, CrCl > 30 mL/min) AND *Sequential Compression Device (SCD) Assessment and Plan Problem List: (1) Acute on chronic combined systolic and diastolic heart failure ICD Code: I50.43 - Acute on chronic combined systolic (congestive) and diastolic (congestive) heart failure (2) ESRD on dialysis ICD Code: N18.6 - End stage renal failure on dialysis; Z99.2 - Dependence on renal dialysis Status: Chronic (3) Pneumonia ICD Code: J18.9 - Pneumonia, unspecified organism Status: Acute (4) Shortness of breath ICD Code: R06.02 - Shortness of breath Status: Acute Assessment and Plan 61-year-old male with: Respiratory failure secondary to acute on chronic systolic and diastolic congestive heart failure/fluid overload BNP greater than 5000 Last echocardiogram on 09/06 showed LVEF of 20-25% and moderate to severe pulmonary hypertension and valvular insufficiencies. CXR reveals right base effusion and infiltrates. -Nephrology on board for dialysis to remove excess fluid. -Beta-stacey contraindicated due to cocaine abuse. - Continue with supplemental oxygen - BiPAP as needed. 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 - Continue Rocephin and azithromycin. Follow symptoms after hemodialysis. If conditions worsening, would consider treating him as healthcare associated pneumonia. Hypertension -Resume patient on home dose of hydralazine -monitor BP and adjust treatment accordingly Diabetes mellitus -Continue sliding scale insulin with Accu-Cheks. History of ongoing tobaccoism -Discussed smoking cessation Cocaine abuse: - The patient was extensively counseled. Unfortunately he continues to use despite the detrimental effect of this on his health. Hep C -Avoid hepatotoxic agents Anemia of chronic disease, stable Thrombocytopenia, secondary to renal failure No evidence of active bleeding -resume home dose of ferrous sulfate -Epogen per nephrology DVT prophylaxis -Heparin sq Discussed Condition With Discussed with patient and his . He does not want to be put on machine if needed. Wants DNR status. Physician Certification 2 Midnight Certification Type: Admission for Inpatient Services Order for Inpatient Services The services are ordered in accordance with Medicare regulations or non- Medicare payer requirements, as applicable. In the case of services not specified as inpatient-only, they are appropriately provided as inpatient services in accordance with the 2-midnight benchmark. Estimated LOS (days): 3 days is the estimated time the patient will need to remain in the hospital, assuming treatment plan goals are met and no additional complications. Post-Hospital Plan: Not yet determined Problem Qualifiers (1) Pneumonia: Qualified Codes: J18.1 - Lobar pneumonia, unspecified organism Lea Andrews MD October 03, 2017 10:39
[2017-10-03 12:25] LABS: TROPONIN I 0.13 NG/ML (0.02-0.05)
[2017-10-03] MEDS: FERROUS SULFATE 325 MG (65 MG ELEMENTAL IRON) TAB PO SCH (18:40)
--- NOTE | 2017-10-03 19:14 | EKG ---
Date Performed: 10/03/2017 Time Performed: 01:48:18 PTAGE: 61 years EKG: Sinus tachycardia QRS changes V3/V4 may be due to LVH but cannot rule out anterior infarct LVH with secondary repolarization abnormality Inferior/lateral ST-T changes may be due to hypertrophy and/or ischemia when compared to prior ekg, patient appears to be in sinus rythm Abnormal ECG PREVIOUS TRACING : 10/02/2017 20.11 DOCTOR: Rose Batista Interpretating Date/Time 10/03/2017 19:13:36
--- NOTE | 2017-10-03 19:16 | EKG ---
Date Performed: 10/03/2017 Time Performed: 09:22:01 PTAGE: 61 years EKG: SINUS TACHYCARDIA POSSIBLE ANTERIOR MYOCARDIAL INFARCTION , OF INDETERMINATE AGE Since the previous tracing, no significant change noted ABNORMAL ECG PREVIOUS TRACING : 10/03/2017 01.48 DOCTOR: Rose Batista Interpretating Date/Time 10/03/2017 19:16:09
[2017-10-03] MEDS: AZITHROMYCIN INJ 500 MG in SODIUM CHLOR 0.9% 250 ML INJ 250 ML IV SCH (23:00)
[2017-10-04] VITALS (16 sets, daily range): BP systolic 99–128; BP diastolic 60–86; PULSE 97–115; RESP 15–28; TEMP 97.3–97.6; O2SAT 95–100
[2017-10-04] MEDS: HEPARIN SODIUM - SQ 10,000 UNITS/ML VIAL SQ SCH ×3 (00:20→22:44)
[2017-10-04] MEDS: cefTRIAXone INJ 1,000 MG in SODIUM CHLORIDE 0.9% INJ 100 ML IV SCH ×2 (00:20→22:08)
[2017-10-04 08:13] LABS: HEMATOCRIT 31.6 % (39.0-51.0); HEMOGLOBIN 10.5 GM/DL (13.0-17.0); MEAN CELL VOLUME 92.6 FL (80.0-100.0); MEAN CORPUSCULAR HEMOGLOBIN 30.7 PG (27.0-34.0); MEAN CORPUSCULAR HGB CONC 33.2 % (32.0-36.0); MEAN PLATELET VOLUME 10.5 FL (7.0-11.0); PLATELET COUNT 158 TH/MM3 (150-450); RED BLOOD COUNT 3.42 MIL/MM3 (4.50-5.90); RED CELL DISTRIBUTION WIDTH 19.5 % (11.6-17.2); WHITE BLOOD COUNT 4.8 TH/MM3 (4.0-11.0)
[2017-10-04 08:43] LABS: BICARBONATE 25.3 MEQ/L (21.0-32.0); CALCIUM 9.1 MG/DL (8.5-10.1); CREATININE 5.87 MG/DL (0.60-1.30)
[2017-10-04] MEDS: DOCUSATE SODIUM 50 MG/SENNA 8.6 MG TAB PO SCH ×2 (09:33→21:00)
[2017-10-04] MEDS: SODIUM CHLORIDE 0.9% FLUSH 10 ML FLUSH IV FLUSH SCH ×2 (09:33→22:08)
[2017-10-04] MEDS: hydrALAZINE HCL 25 MG TAB PO SCH ×2 (09:33→22:07)
[2017-10-04] MEDS: ASPIRIN EC 81 MG TABEC PO SCH (09:33)
[2017-10-04] MEDS: FERROUS SULFATE 325 MG (65 MG ELEMENTAL IRON) TAB PO SCH ×2 (09:33→18:40)
[2017-10-04] MEDS: SEVELAMER CARBONATE 800 MG TAB PO SCH ×3 (09:33→18:40)
--- NOTE | 2017-10-04 10:48 | HHI.PR ---
Subjective Remarks Patient is in bed. Denies any chest pain at this time. With some shortness of breath. Some nonproductive cough. No fever or chills. Feels very tired. Objective Vitals Vital Signs Date Time Temp Pulse Resp B/P (MAP) Pulse Ox O2 Delivery O2 Flow Rate FiO2 10/04/17 08:01 97.4 115 17 111/74 (86) 99 10/04/17 04:08 112 10/04/17 04:00 Bi-Pap 10/04/17 04:00 100 30 10/04/17 04:00 97.3 106 15 99/61 (74) 100 10/04/17 00:18 111 10/04/17 00:00 97.4 107 16 117/86 (96) 100 10/04/17 00:00 Room Air 10/03/17 20:49 100 21 10/03/17 20:05 113 10/03/17 20:00 98.4 109 19 106/61 (76) 98 10/03/17 20:00 Room Air 10/03/17 16:30 97 Nasal Cannula 2.00 I/O 10/03/17 10/03/17 10/03/17 10/04/17 10/04/17 10/04/17 06:59 14:59 22:59 06:59 14:59 22:59 Intake Total 250 ml 360 ml 820 ml Output Total 5000 ml Balance 250 ml -5000 ml 360 ml 820 ml Intake Oral 360 ml 470 ml IV Total 250 ml 350 ml Output Hemodialysis 5000 ml # Voids 0 # Bowel Movements 1 Result Diagram: 10/04/17 0745 10/04/17 0745 Imaging Last Impressions Chest X-Ray 10/02/172025 Signed Impressions: Service Date/Time: Monday, October 02, 2017 20:33 - CONCLUSION: Slight improvement in aeration on the left. Persistent right base infiltrate and effusion. Minh Silva MD Objective Remarks GENERAL: Appear chronically ill. Mild shortness of breath. CARDIOVASCULAR: Regular rate and rhythm without murmurs, gallops, or rubs. RESPIRATORY: Markedly diminished breath sounds at the bases. No wheezing. Rest of the lung buitrago clear to auscultation. GASTROINTESTINAL: Abdomen soft, non-tender, nondistended. No hepato-splenomegaly , or palpable masses. No guarding. MUSCULOSKELETAL: Extremities without clubbing, cyanosis, or edema. No joint tenderness, effusion, or edema noted. No calf tenderness. Negative Homans sign bilaterally. NEUROLOGICAL: Awake and alert. Cranial nerves II through XII intact. Motor and sensory grossly within normal limits. Five out of 5 muscle strength in all muscle groups. Normal speech. PSYCH: Anxious. A/P Problem List: (1) Acute on chronic combined systolic and diastolic heart failure ICD Code: I50.43 - Acute on chronic combined systolic (congestive) and diastolic (congestive) heart failure (2) ESRD on dialysis ICD Code: N18.6 - End stage renal failure on dialysis; Z99.2 - Dependence on renal dialysis Status: Chronic (3) Pneumonia ICD Code: J18.9 - Pneumonia, unspecified organism Status: Acute (4) Shortness of breath ICD Code: R06.02 - Shortness of breath Status: Acute Assessment and Plan 61-year-old male with: Respiratory failure secondary to acute on chronic systolic and diastolic congestive heart failure/fluid overload BNP greater than 5000 Last echocardiogram on 09/06 showed LVEF of 20-25% and moderate to severe pulmonary hypertension and valvular insufficiencies. CXR reveals right base effusion and infiltrates. -Nephrology on board for dialysis to remove excess fluid. -Beta-stacey contraindicated due to cocaine abuse. - Continue with supplemental oxygen - BiPAP as needed. 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 - Continue Rocephin and azithromycin. Follow symptoms after hemodialysis. If conditions worsening, would consider treating him as healthcare associated pneumonia. Hypertension -Resume patient on home dose of hydralazine -monitor BP and adjust treatment accordingly Diabetes mellitus 2 -Continue sliding scale insulin with Accu-Cheks. History of ongoing tobaccoism -Counselled, smoking cessation Cocaine abuse: - The patient was extensively counseled. Unfortunately he continues to use despite the detrimental effect of this on his health. Hep C -Avoid hepatotoxic agents Anemia of chronic disease, stable Thrombocytopenia, secondary to renal failure No evidence of active bleeding resume home dose of ferrous sulfate Epogen per nephrology DVT prophylaxis -Heparin sq Discussed Condition With Discussed with patient, nurse. Code status: DNR Problem Qualifiers (1) Pneumonia: Qualified Codes: J18.1 - Lobar pneumonia, unspecified organism Cosma,Yesi MD October 04, 2017 10:47
--- NOTE | 2017-10-04 15:06 | HHI.NPPN ---
Subjective General Problems: Anemia Renal Failure: End Stage Renal Disease History of Present Illness Patient is a 61 year old male with a past medical history of hypertension, diabetes, hx of cocaine use and hepatitits C, congestive heart failure with EF of 25-30%, hx of bradycardia and PEA arrest, and end stage renal disease on hemodialysis Monday, , and Monday. Presented to hospital with worsening shortness of breath over the last 4-5 days. Patient was admitted the end of last month and left against medical advise and was also admitted to [facility] for fluid overload. Nephrology is consulted for management of end stage renal disease. Last dialysis was on Monday. Dialysis arrangements made. Additional Remarks Seen in morning. Patient sleeping in chair with no complaints. Just looking forward to lunch. (Skylar Paulino) Review of Systems Respiratory Respiratory Remarks Denies any shortness of breath (Skylar Paulino) Cardiovascular Cardiac Remarks Denies chest pain (Skylar Paulino) Gastrointestinal GI Remarks Denies any abdominal pain (Skylar Paulino) Objective Data Data Vital Signs Date Time Temp Pulse Resp B/P (MAP) Pulse Ox O2 Delivery O2 Flow Rate FiO2 10/04/17 12:01 97.4 98 19 128/61 (83) 96 10/04/17 11:38 95 10/04/17 08:01 97.4 115 17 111/74 (86) 99 10/04/17 04:08 112 10/04/17 04:00 Bi-Pap 10/04/17 04:00 100 30 10/04/17 04:00 97.3 106 15 99/61 (74) 100 10/04/17 00:18 111 10/04/17 00:00 97.4 107 16 117/86 (96) 100 10/04/17 00:00 Room Air 10/03/17 20:49 100 21 10/03/17 20:05 113 10/03/17 20:00 98.4 109 19 106/61 (76) 98 10/03/17 20:00 Room Air 10/03/17 16:30 97 Nasal Cannula 2.00 (Skylar Paulino) -: 10/04/17 0745 10/04/17 0745 Imaging Last Impressions Chest X-Ray 10/02/172025 Signed Impressions: Service Date/Time: Monday, October 02, 2017 20:33 - CONCLUSION: Slight improvement in aeration on the left. Persistent right base infiltrate and effusion. Minh Silva MD (Skylar Paulino) Physical Exam General Appearance: No Acute Distress, Comfortable (Skylar Paulino) Pulmonary Resp Exam: Breath Sounds Equal, No Distress (Skylar Paulino) Cardiology CV Exam: Normal Sinus Rhythm (Skylar Paulino) Gastrointestinal/Abdomen GI Exam: Soft, Non-Tender, Bowel Sounds Present (Skylar Paulino) Integumentary Skin Exam: Clear, Warm (Skylar Paulino) Extremeties Extremities Exam: No Edema (Skylar Paulino) Neurologic Neuro Exam: Alert, Awake (Skylar Paulino) Psychiatric Psych Exam: Appropriate Responses (Skylar Paulino) Assessment/Plan Problem List: (1) ESRD on dialysis ICD Codes: N18.6 - End stage renal failure on dialysis; Z99.2 - Dependence on renal dialysis Status: Chronic Plan: Hemodialysis Monday/ / Monday Hemodialysis with UF of 5 liters Fluid restriction ordered. Avoid fluid administration Continue renvela (2) CHF exacerbation ICD Codes: I50.9 - Heart failure, unspecified Status: Acute Plan: Dialysis T/TH/Sat remove fluid as tolerated (3) Pneumonia ICD Codes: J18.9 - Pneumonia, unspecified organism Status: Acute Plan: on antibiotics (Skylar Paulino) Problem List: (1) ESRD on dialysis ICD Codes: N18.6 - End stage renal failure on dialysis; Z99.2 - Dependence on renal dialysis Status: Chronic Plan: Hemodialysis Monday/ / Monday Hemodialysis with UF of 5 liters Fluid restriction ordered. Avoid fluid administration Continue Renvela Patient seen and examined, agree with above. Continue antibiotics, told to restrict fluid intake. HD will be in AM. (2) CHF exacerbation ICD Codes: I50.9 - Heart failure, unspecified Status: Acute Plan: Dialysis T/TH/Sat remove fluid as tolerated (3) Pneumonia ICD Codes: J18.9 - Pneumonia, unspecified organism Status: Acute Plan: on antibiotics (Severo Peck MD) Problem Qualifiers (1) CHF exacerbation: Qualified Codes: I50.9 - Heart failure, unspecified (2) Pneumonia: Qualified Codes: J18.1 - Lobar pneumonia, unspecified organism Skylar Paulino October 04, 2017 15:06 Severo Peck MD October 04, 2017 20:31
[2017-10-04] MEDS: AZITHROMYCIN INJ 500 MG in SODIUM CHLOR 0.9% 250 ML INJ 250 ML IV SCH (22:44)
[2017-10-05] VITALS (12 sets, daily range): BP systolic 119–141; BP diastolic 62–72; PULSE 56–123; RESP 17–24; TEMP 97.2–97.8; O2SAT 94–99
--- NOTE | 2017-10-05 08:22 | HHI.PR ---
Subjective Remarks In the chair. Feels tired after HD. Some nonproductive cough . No n/v/d/c. Objective Vitals Vital Signs Date Time Temp Pulse Resp B/P (MAP) Pulse Ox O2 Delivery O2 Flow Rate FiO2 10/05/17 05:42 94 Nasal Cannula 3.00 10/05/17 04:45 97.5 109 24 119/72 (88) 95 10/05/17 04:00 114 10/05/17 04:00 Room Air 10/05/17 00:03 97.2 56 24 135/63 (87) 96 10/05/17 00:02 99 BiPAP 10/05/17 00:00 107 10/05/17 00:00 Bi-Pap 10/04/17 23:57 99 30 10/04/17 22:00 Nasal Cannula 2.00 10/04/17 20:43 97.3 97 28 124/66 (85) 99 10/04/17 20:00 100 10/04/17 20:00 Room Air 10/04/17 17:51 98 21 10/04/17 16:01 97.6 99 19 120/60 (80) 98 10/04/17 15:54 111 10/04/17 12:12 102 10/04/17 12:01 97.4 98 19 128/61 (83) 96 10/04/17 11:38 95 I/O 10/04/17 10/04/17 10/04/17 10/05/17 10/05/17 10/05/17 07:00 15:00 23:00 07:00 15:00 23:00 Intake Total 820 ml 600 ml 200 ml Output Total 0 ml Balance 820 ml 600 ml 200 ml Intake Oral 470 ml 600 ml 200 ml IV Total 350 ml Output Urine Total 0 ml # Voids 0 # Bowel Movements 1 1 0 Result Diagram: 10/04/17 0745 10/04/1745 Imaging Last Impressions Chest X-Ray 10/02/172025 Signed Impressions: Service Date/Time: Monday, October 02, 2017 20:33 - CONCLUSION: Slight improvement in aeration on the left. Persistent right base infiltrate and effusion. Minh Silva MD Objective Remarks GENERAL: Appear chronically ill. Mild shortness of breath. CARDIOVASCULAR: Regular rate and rhythm without murmurs, gallops, or rubs. RESPIRATORY: Markedly diminished breath sounds at the bases. No wheezing. Rest of the lung buitrago clear to auscultation. GASTROINTESTINAL: Abdomen soft, non-tender, nondistended. No hepato-splenomegaly , or palpable masses. No guarding. MUSCULOSKELETAL: Extremities without clubbing, cyanosis, or edema. No joint tenderness, effusion, or edema noted. No calf tenderness. Negative Homans sign bilaterally. NEUROLOGICAL: Awake and alert. Cranial nerves II through XII intact. Motor and sensory grossly within normal limits. Five out of 5 muscle strength in all muscle groups. Normal speech. PSYCH: Anxious. A/P Problem List: (1) Acute on chronic combined systolic and diastolic heart failure ICD Code: I50.43 - Acute on chronic combined systolic (congestive) and diastolic (congestive) heart failure (2) ESRD on dialysis ICD Code: N18.6 - End stage renal failure on dialysis; Z99.2 - Dependence on renal dialysis Status: Chronic (3) Pneumonia ICD Code: J18.9 - Pneumonia, unspecified organism Status: Acute (4) Shortness of breath ICD Code: R06.02 - Shortness of breath Status: Acute Assessment and Plan 61-year-old male with: Respiratory failure secondary to acute on chronic systolic and diastolic congestive heart failure/fluid overload BNP greater than 5000 on admission Last echocardiogram on 09/06 showed LVEF of 20-25% and moderate to severe pulmonary hypertension and valvular insufficiencies. CXR reveals right base effusion and infiltrates. -Nephrology on board for dialysis to remove excess fluid. -Beta-stacey contraindicated due to cocaine abuse. - Continue with supplemental oxygen - BiPAP as needed. End-stage renal disease on hemodialysis TTHSAT Consult patients product development intern, ff, appreciate recommendations Resume home dose of Renvela Check phosphorus level Possible pneumonia: Chest x-ray imaging findings as above. - Continue Rocephin and azithromycin. Follow symptoms after hemodialysis. If conditions worsening, would consider treating him as healthcare associated pneumonia. Hypertension -Resume patient on home dose of hydralazine -monitor BP and adjust treatment accordingly Diabetes mellitus 2 -Continue sliding scale insulin with Accu-Cheks. History of ongoing tobaccoism -Counselled, smoking cessation Cocaine abuse: - The patient was extensively counseled. Unfortunately he continues to use despite the detrimental effect of this on his health. Hep C -Avoid hepatotoxic agents Anemia of chronic disease, stable Thrombocytopenia, secondary to renal failure No evidence of active bleeding resume home dose of ferrous sulfate Epogen per nephrology DVT prophylaxis -Heparin sq Discussed Condition With: patient, nurse. Code status: DNR Problem Qualifiers (1) Pneumonia: Qualified Codes: J18.1 - Lobar pneumonia, unspecified organism Yesi Boss MD October 05, 2017 08:22
[2017-10-05] MEDS: SEVELAMER CARBONATE 800 MG TAB PO SCH ×3 (08:31→17:30)
--- NOTE | 2017-10-05 10:41 | HHI.NPPN ---
Subjective General Problems: Anemia Renal Failure: End Stage Renal Disease History of Present Illness Patient is a 61 year old male with a past medical history of hypertension, diabetes, hx of cocaine use and hepatitits C, congestive heart failure with EF of 25-30%, hx of bradycardia and PEA arrest, and end stage renal disease on hemodialysis Monday, , and Monday. Presented to hospital with worsening shortness of breath over the last 4-5 days. Patient was admitted the end of last month and left against medical advise and was also admitted to [facility] for fluid overload. Nephrology is consulted for management of end stage renal disease. Last dialysis was on Monday. Dialysis arrangements made. Additional Remarks Seen during dialysis. Tolerating well. Continues to have productive cough. (Skylar Paulino) Review of Systems Respiratory Lungs: Cough Respiratory Remarks Denies any shortness of breath (Skylar Paulino) Cardiovascular Cardiac Remarks Denies chest pain (Skylar Paulino) Gastrointestinal GI Remarks Denies any abdominal pain (Skylar Paulino) Objective Data Data 10/05/17 10/06/17 19:00 07:00 Output Total 2000 ml Balance -2000 ml Hemodialysis 2000 ml Vital Signs Date Time Temp Pulse Resp B/P (MAP) Pulse Ox O2 Delivery O2 Flow Rate FiO2 10/05/17 08:48 97.4 100 18 141/65 (90) 97 10/05/17 05:42 94 Nasal Cannula 3.00 10/05/17 04:45 97.5 109 24 119/72 (88) 95 10/05/17 04:00 114 10/05/17 04:00 Room Air 10/05/17 00:03 97.2 56 24 135/63 (87) 96 10/05/17 00:02 99 BiPAP 10/05/17 00:00 107 10/05/17 00:00 Bi-Pap 10/04/17 23:57 99 30 10/04/17 22:00 Nasal Cannula 2.00 10/04/17 20:43 97.3 97 28 124/66 (85) 99 10/04/17 20:00 100 10/04/17 20:00 Room Air 10/04/17 17:51 98 21 10/04/17 16:01 97.6 99 19 120/60 (80) 98 10/04/17 15:54 111 10/04/17 12:12 102 10/04/17 12:01 97.4 98 19 128/61 (83) 96 10/04/17 11:38 95 (Skylar Paulino) -: 10/04/17 0745 10/04/17 0745 Imaging Last Impressions Chest X-Ray 10/02/172025 Signed Impressions: Service Date/Time: Monday, October 02, 2017 20:33 - CONCLUSION: Slight improvement in aeration on the left. Persistent right base infiltrate and effusion. Minh Silva MD (Skylar Paulino) Physical Exam General Appearance: No Acute Distress, Comfortable (Skylar Paulino) Throat Throat Exam: Oral Mucosa [place] & Moist (Skylar Paulino) Pulmonary Resp Exam: Breath Sounds Equal, No Distress (Skylar Paulino) Cardiology CV Exam: Normal Sinus Rhythm (Skylar Paulino) Gastrointestinal/Abdomen GI Exam: Soft, Non-Tender, Bowel Sounds Present (Skylar Paulino) Integumentary Skin Exam: Clear, Warm (Skylar Paulino) Extremeties Extremities Exam: No Edema (Skylar Paulino) Neurologic Neuro Exam: Alert, Awake (Skylar Paulino) Psychiatric Psych Exam: Appropriate Responses (Skylar Paulino) Assessment/Plan Problem List: (1) ESRD on dialysis ICD Codes: N18.6 - End stage renal failure on dialysis; Z99.2 - Dependence on renal dialysis Status: Chronic Plan: Hemodialysis Monday/ / Monday Hemodialysis with UF of 5 liters Fluid restriction ordered. Avoid fluid administration Continue Renvela KINDRA inhibitor ordered for cardiomyopathy will monitor potassium levels Seen during hemodialysis 2 K bath plan to remove 2 liters. (2) CHF exacerbation ICD Codes: I50.9 - Heart failure, unspecified Status: Acute Plan: Dialysis T//Sat remove fluid as tolerated (3) Pneumonia ICD Codes: J18.9 - Pneumonia, unspecified organism Status: Acute Plan: on antibiotics (Skylar Paulino) Problem List: (1) ESRD on dialysis ICD Codes: N18.6 - End stage renal failure on dialysis; Z99.2 - Dependence on renal dialysis Status: Chronic Plan: Hemodialysis Monday/ / Monday Hemodialysis with UF of 5 liters Fluid restriction ordered. Avoid fluid administration Continue Renvela KINDRA inhibitor ordered for cardiomyopathy will monitor potassium levels Seen during hemodialysis 2 K bath plan to remove 2 liters. Patient seen and examined, agree with above. Need to be compliant with fluid intake and HD. (2) CHF exacerbation ICD Codes: I50.9 - Heart failure, unspecified Status: Acute Plan: Dialysis T//Mon remove fluid as tolerated (3) Pneumonia ICD Codes: J18.9 - Pneumonia, unspecified organism Status: Acute Plan: on antibiotics (Severo Peck MD) Problem Qualifiers (1) CHF exacerbation: Qualified Codes: I50.9 - Heart failure, unspecified (2) Pneumonia: Qualified Codes: J18.1 - Lobar pneumonia, unspecified organism Skylar Paulino October 05, 2017 10:41 Severo Peck MD October 09, 2017 19:09
--- NOTE | 2017-10-05 11:27 | HHI.FF ---
Face to Face Verification Diagnosis: (1) Anemia (2) Hepatitis C (3) DM (diabetes mellitus) (4) ESRD on hemodialysis (5) Gait disorder (6) Balance problem (7) Risk for falls (8) CHF (congestive heart failure) (9) Weakness (10) Physical deconditioning (11) Non-ischemic cardiomyopathy (12) Cardiac LV ejection fraction of 20-34% (13) Pneumonia (14) Shortness of breath Physical Therapy Order: Evaluate and Treat Home Health Nursing Order: Medical education Signs/symptoms of disease process CHF education Medication education-adverse effect Nursing assessment with vital signs I have seen patient Tenzin Bloom on 10/05/17. My clinical findings support the need for the requested home health care services because: Ltd mobility - disease progression Patient has SOB I certify that my clinical findings support that this patient is homebound because: Post-op weakness Yesi Boss MD October 05, 2017 11:27
[2017-10-05] MEDS: HEPARIN SODIUM - SQ 10,000 UNITS/ML VIAL SQ SCH ×2 (12:00→23:30)
[2017-10-05] MEDS: hydrALAZINE HCL 25 MG TAB PO SCH ×2 (14:40→20:59)
[2017-10-05] MEDS: FERROUS SULFATE 325 MG (65 MG ELEMENTAL IRON) TAB PO SCH ×2 (14:41→17:30)
[2017-10-05] MEDS: SODIUM CHLORIDE 0.9% FLUSH 10 ML FLUSH IV FLUSH SCH ×2 (14:41→20:59)
[2017-10-05] MEDS: ASPIRIN EC 81 MG TABEC PO SCH (14:41)
[2017-10-05] MEDS: DOCUSATE SODIUM 50 MG/SENNA 8.6 MG TAB PO SCH ×2 (14:41→21:00)
[2017-10-05] MEDS: cefTRIAXone INJ 1,000 MG in SODIUM CHLORIDE 0.9% INJ 100 ML IV SCH (23:30)
[2017-10-05] MEDS: AZITHROMYCIN INJ 500 MG in SODIUM CHLOR 0.9% 250 ML INJ 250 ML IV SCH (23:30)
[2017-10-06] VITALS: PULSE 106
[2017-10-06 00:59] VITALS: BP 109/68; PULSE 106; RESP 20; TEMP 97.5; O2SAT 91
[2017-10-06 04:00] VITALS: PULSE 105
[2017-10-06 04:59] VITALS: BP 129/58; PULSE 96; RESP 24; TEMP 97.5; O2SAT 98
[2017-10-06 07:03] LABS: CREATININE 6.59 MG/DL (0.60-1.30)
[2017-10-06 07:04] LABS: PHOSPHORUS 3.3 MG/DL (2.5-4.9)
[2017-10-06 08:00] VITALS: BP 137/77; PULSE 93; PULSE 97; RESP 18; TEMP 97.6; O2SAT 100
--- NOTE | 2017-10-06 08:00 | HHI.PR ---
Subjective Remarks Feesl much better. Less sob Less cough No fever ro chills/ Feels comfortable to go home Objective Vitals Vital Signs Date Time Temp Pulse Resp B/P (MAP) Pulse Ox O2 Delivery O2 Flow Rate FiO2 10/06/17 05:26 Room Air 10/06/17 04:59 97.5 96 24 129/58 (81) 98 10/06/17 04:00 105 10/06/17 00:59 97.5 106 20 109/68 (82) 91 10/06/17 00:00 106 10/06/17 00:00 Room Air 10/05/17 20:49 97.8 123 20 98 10/05/17 20:35 Room Air 10/05/17 20:00 111 10/05/17 18:05 Nasal Cannula 3.00 10/05/17 16:00 97.3 102 17 130/62 (84) 95 10/05/17 16:00 108 10/05/17 12:00 100 10/05/17 08:48 97.4 100 18 141/65 (90) 97 10/05/17 08:00 111 10/05/17 08:00 Nasal Cannula 3.00 I/O 10/05/17 10/05/17 10/05/17 10/06/17 10/06/17 10/06/17 07:00 15:00 23:00 07:00 15:00 23:00 Intake Total 200 ml 500 ml 300 ml Output Total 0 ml 2000 ml Balance 200 ml -2000 ml 500 ml 300 ml Intake Oral 200 ml 500 ml 300 ml Output Urine Total 0 ml Hemodialysis 2000 ml # Voids 3 # Bowel Movements 0 Result Diagram: 10/04/17 0745 10/06/17 0557 Imaging Last Impressions Chest X-Ray 10/02/172025 Signed Impressions: Service Date/Time: Monday, October 02, 2017 20:33 - CONCLUSION: Slight improvement in aeration on the left. Persistent right base infiltrate and effusion. Minh Silva MD Objective Remarks GENERAL: Appear chronically ill. Mild shortness of breath. CARDIOVASCULAR: Regular rate and rhythm without murmurs, gallops, or rubs. RESPIRATORY: Markedly diminished breath sounds at the bases. No wheezing. Rest of the lung buitrago clear to auscultation. GASTROINTESTINAL: Abdomen soft, non-tender, nondistended. No hepato-splenomegaly , or palpable masses. No guarding. MUSCULOSKELETAL: Extremities without clubbing, cyanosis, or edema. No joint tenderness, effusion, or edema noted. No calf tenderness. Negative Homans sign bilaterally. NEUROLOGICAL: Awake and alert. Cranial nerves II through XII intact. Motor and sensory grossly within normal limits. Five out of 5 muscle strength in all muscle groups. Normal speech. PSYCH: Anxious. A/P Problem List: (1) Acute on chronic combined systolic and diastolic heart failure ICD Code: I50.43 - Acute on chronic combined systolic (congestive) and diastolic (congestive) heart failure (2) ESRD on dialysis ICD Code: N18.6 - End stage renal failure on dialysis; Z99.2 - Dependence on renal dialysis Status: Chronic (3) Pneumonia ICD Code: J18.9 - Pneumonia, unspecified organism Status: Acute (4) Shortness of breath ICD Code: R06.02 - Shortness of breath Status: Acute Assessment and Plan 61-year-old male with: Respiratory failure secondary to acute on chronic systolic and diastolic congestive heart failure/fluid overload BNP greater than 5000 on admission Last echocardiogram on 09/06 showed LVEF of 20-25% and moderate to severe pulmonary hypertension and valvular insufficiencies. CXR reveals right base effusion and infiltrates. -Nephrology on board for dialysis to remove excess fluid. -Beta-stacey contraindicated due to cocaine abuse. - Continue with supplemental oxygen - BiPAP as needed. End-stage renal disease on hemodialysis TTHSAT Consult patients inspector technician, ff, appreciate recommendations Resume home dose of Renvela Check phosphorus level Possible pneumonia: Chest x-ray imaging findings as above. - Continue Rocephin and azithromycin. Follow symptoms after hemodialysis. If conditions worsening, would consider treating him as healthcare associated pneumonia. Hypertension -Resume patient on home dose of hydralazine -monitor BP and adjust treatment accordingly Diabetes mellitus 2 -Continue sliding scale insulin with Accu-Cheks. History of ongoing tobaccoism -Counselled, smoking cessation Cocaine abuse: - The patient was extensively counseled. Unfortunately he continues to use despite the detrimental effect of this on his health. Hep C -Avoid hepatotoxic agents Anemia of chronic disease, stable Thrombocytopenia, secondary to renal failure No evidence of active bleeding resume home dose of ferrous sulfate Epogen per nephrology DVT prophylaxis -Heparin sq Discussed Condition With: patient, nurse. Code status: DNR Improved. DC home in stable condition however expect deterioration and readmission. Adviced compliance with meds and follow up. Problem Qualifiers (1) Pneumonia: Qualified Codes: J18.1 - Lobar pneumonia, unspecified organism Yesi Boss MD October 06, 2017 08:00
[2017-10-06] MEDS: SEVELAMER CARBONATE 800 MG TAB PO SCH ×2 (08:42→12:35)
[2017-10-06] MEDS: FERROUS SULFATE 325 MG (65 MG ELEMENTAL IRON) TAB PO SCH (08:42)
[2017-10-06] MEDS: hydrALAZINE HCL 25 MG TAB PO SCH (08:43)
[2017-10-06] MEDS: DOCUSATE SODIUM 50 MG/SENNA 8.6 MG TAB PO SCH (08:43)
[2017-10-06] MEDS: ASPIRIN EC 81 MG TABEC PO SCH (08:43)
[2017-10-06] MEDS: SODIUM CHLORIDE 0.9% FLUSH 10 ML FLUSH IV FLUSH SCH (08:44)
[2017-10-06] MEDS ORDERED: LISINOPRIL 5 MG TAB PO SCH (09:00)
[2017-10-06] MEDS ORDERED: NITR0.4S SL (11:11)
[2017-10-06] MEDS ORDERED: LISI-519 PO (11:11)
[2017-10-06] MEDS ORDERED: METO25TA3 PO (11:11)
--- NOTE | 2017-10-06 11:11 | HHI.DS ---
Discharge Summary Admission Date October 02, 2017 at 23:12 Discharge Date: October 06, 2017 Admitting Diagnosis CHF exacerbation, ESRD on hemodialysis, pneumonia, hyperkalemia (1) Acute on chronic combined systolic and diastolic heart failure ICD Code: I50.43 - Acute on chronic combined systolic (congestive) and diastolic (congestive) heart failure (2) ESRD on dialysis ICD Code: N18.6 - End stage renal failure on dialysis; Z99.2 - Dependence on renal dialysis Status: Chronic (3) Pneumonia ICD Code: J18.9 - Pneumonia, unspecified organism Status: Acute (4) Shortness of breath ICD Code: R06.02 - Shortness of breath Status: Acute Procedures none Brief History - From Admission 61-year-old male with a medical history significant for CHF with LVEF around 25- 30%, end-stage renal disease on hemodialysis, history of bradycardia and PEA arrest, diabetes, cocaine abuse who presented to the emergency room with complaint of worsening shortness of breath for the past 3 days. Patient has had repeated admissions for fluid overload. His in the room reports that he did have dialysis as scheduled on Monday. He has been coughing. No fevers or chills. Lower extremity edema is persistent but has not gotten worse. He denies chest pain. The patient left AGAINST MEDICAL ADVICE from his last admission here and he was admitted to [facility] for fluid overload. As noted above, multiple presentation this year for fluid overload. He does use cocaine. My evaluation today, he reports shortness of breath and he is coughing. Discussed with RN reported some apneic episode leading to hypoxemia. Blood gas show mild alkalosis with low CO2 otherwise grossly unremarkable. Chest x-ray showed pleural effusion and infiltrate on the right base, left side looks improved. CBC/BMP: 10/04/17 0745 10/06/17 0557 Significant Findings Laboratory Tests Test 10/04/17 07:45 10/06/17 05:57 Red Blood Count 3.42 MIL/MM3 (4.50-5.90) Hemoglobin 10.5 GM/DL (13.0-17.0) Hematocrit 31.6 % (39.0-51.0) Red Cell Distribution Width 19.5 % (11.6-17.2) Blood Urea Nitrogen 54 MG/DL (7-18) 52 MG/DL (7-18) Creatinine 5.87 MG/DL (0.60-1.30) 6.59 MG/DL (0.60-1.30) Random Glucose 60 MG/DL (74-106) Estimat Glomerular Filtration Rate 12 ML/MIN (>89) 10 ML/MIN (>89) Imaging Last Impressions Chest X-Ray 10/02/172025 Signed Impressions: Service Date/Time: Monday, October 02, 2017 20:33 - CONCLUSION: Slight improvement in aeration on the left. Persistent right base infiltrate and effusion. Minh Silva MD PE at Discharge GENERAL: Appear chronically ill. Mild shortness of breath. CARDIOVASCULAR: Regular rate and rhythm without murmurs, gallops, or rubs. RESPIRATORY: Markedly diminished breath sounds at the bases. No wheezing. Rest of the lung buitrago clear to auscultation. GASTROINTESTINAL: Abdomen soft, non-tender, nondistended. No hepato-splenomegaly , or palpable masses. No guarding. MUSCULOSKELETAL: Extremities without clubbing, cyanosis, or edema. No joint tenderness, effusion, or edema noted. No calf tenderness. Negative Homans sign bilaterally. NEUROLOGICAL: Awake and alert. Cranial nerves II through XII intact. Motor and sensory grossly within normal limits. Five out of 5 muscle strength in all muscle groups. Normal speech. PSYCH: Anxious. Hospital Course 61-year-old male with: Respiratory failure secondary to acute on chronic systolic and diastolic congestive heart failure/fluid overload BNP greater than 5000 on admission Last echocardiogram on 09/06 showed LVEF of 20-25% and moderate to severe pulmonary hypertension and valvular insufficiencies. CXR reveals right base effusion and infiltrates. -Nephrology on board for dialysis to remove excess fluid. -Beta-stacey contraindicated due to cocaine abuse. - Continue with supplemental oxygen - BiPAP as needed. 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 - Continue Rocephin and azithromycin. Follow symptoms after hemodialysis. If conditions worsening, would consider treating him as healthcare associated pneumonia. Hypertension -Resume patient on home dose of hydralazine -monitor BP and adjust treatment accordingly Diabetes mellitus 2 -Continue sliding scale insulin with Accu-Cheks. History of ongoing tobaccoism -Counselled, smoking cessation Cocaine abuse: - The patient was extensively counseled. Unfortunately he continues to use despite the detrimental effect of this on his health. Hep C -Avoid hepatotoxic agents Anemia of chronic disease, stable Thrombocytopenia, secondary to renal failure No evidence of active bleeding resume home dose of ferrous sulfate Epogen per nephrology DVT prophylaxis -Heparin sq Discussed Condition With: patient, nurse. Code status: DNR Improved. DC home in stable condition however expect deterioration and readmission. Adviced compliance with meds and follow up. Pt Condition on Discharge: Stable Discharge Disposition: Disch w/ Home Health Serv Discharge Time: > 30 minutes Discharge Instructions DIET: Follow Instructions for: Heart Healthy Diet Activities you can perform: Regular-No Restrictions Follow up Referrals: Appointment for Follow Up @ [facility], [facility] Cardiology - [address] [facility] Nephrology - 3-5 Days PCP Follow-up - 2-3 Days PCP Follow-up @ [facility]/ with nurse cotton inspector New Medications: Cefuroxime (Ceftin) 250 Mg Tab 250 MG PO BID for infection, #10 TAB Metoprolol Tartrate (Metoprolol Tartrate) 25 Mg Tab 25 MG PO BID for Blood Pressure Management, #60 TAB 0 Refills Spironolactone (Aldactone) 25 Mg Tab 25 MG PO DAILY for Blood Pressure Management, #30 TAB 0 Refills Lisinopril (Lisinopril) 5 Mg Tab 5 MG PO DAILY for Blood Pressure Management, #60 TAB Nitroglycerin SL (Nitrostat SL) 0.4 Mg Subl 0.4 MG SL UNSCH PRN for CHEST PAIN, #30 TAB Continued Medications: Albuterol 18 GM Inh (Ventolin Hfa 18 GM Inh) 90 Mcg/Act Aer 2 PUFF INH Q4-6H PRN for SHORTNESS OF BREATH, #1 INHALER [address] (Aspirin Adult Low Strength) 81 Mg Tabdr 81 MG PO DAILY, TAB Ferrous Sulfate (Ferrous Sulfate) 325 Mg (65 Mg Iron) Tablet 324 MG PO BIDPC for Nutritional Supplement, #60 TAB 0 Refills Hydralazine HCl (Hydralazine HCl) 25 Mg Tablet 25 MG PO BID for Blood Pressure Management, #60 TAB 0 Refills Sevelamer Carbonate (Renvela) 800 Mg Tab 1600 MG PO TID for Control phosphorous levels, TAB 0 Refills Walker Rolling/GetGo (Walker Rolling/GetGo) 1 Mis Mis EA .XX DIRECTED, #1 Yesi Boss MD October 06, 2017 11:11
[2017-10-06] MEDS ORDERED: CEFU1TAB18 PO (11:13)
[2017-10-06] MEDS ORDERED: SPIR25 PO (11:16)
[2017-10-06 12:00] VITALS: BP 134/61; PULSE 101; RESP 18; TEMP 97.5; O2SAT 97
[2017-10-06] MEDS: HEPARIN SODIUM - SQ 10,000 UNITS/ML VIAL SQ SCH (12:00)
--- NOTE | 2017-10-06 12:05 | HHI.NPPN ---
Subjective General Problems: Anemia Renal Failure: End Stage Renal Disease History of Present Illness Patient is a 61 year old male with a past medical history of hypertension, diabetes, hx of cocaine use and hepatitits C, congestive heart failure with EF of 25-30%, hx of bradycardia and PEA arrest, and end stage renal disease on hemodialysis Monday, , and Monday. Presented to hospital with worsening shortness of breath over the last 4-5 days. Patient was admitted the end of last month and left against medical advise and was also admitted to [facility] for fluid overload. Nephrology is consulted for management of end stage renal disease. Last dialysis was on Monday. Dialysis arrangements made. Additional Remarks Resting comfortable with friend at bedside. Plans for discharge today. (Skylar Paulino) Review of Systems Respiratory Lungs: Cough Respiratory Remarks Denies any shortness of breath (Skylar Paulino) Cardiovascular Cardiac Remarks Denies chest pain (Skylar Paulino) Gastrointestinal GI Remarks Denies any abdominal pain (Skylar Paulino) Objective Data Data Vital Signs Date Time Temp Pulse Resp B/P (MAP) Pulse Ox O2 Delivery O2 Flow Rate FiO2 10/06/17 08:00 Nasal Cannula 3.00 10/06/17 08:00 97.6 97 18 137/77 (97) 100 10/06/17 08:00 93 10/06/17 05:26 Room Air 10/06/17 04:59 97.5 96 24 129/58 (81) 98 10/06/17 04:00 105 10/06/17 00:59 97.5 106 20 109/68 (82) 91 10/06/17 00:00 106 10/06/17 00:00 Room Air 10/05/17 20:49 97.8 123 20 98 10/05/17 20:35 Room Air 10/05/17 20:00 111 10/05/17 18:05 Nasal Cannula 3.00 10/05/17 16:00 97.3 102 17 130/62 (84) 95 10/05/17 16:00 108 (Skylar Paulino) -: 10/04/17 0745 10/06/17 0557 Physical Exam General Appearance: No Acute Distress, Comfortable (Skylar Paulino) Throat Throat Exam: Oral Mucosa Hackberry & Moist (Skylar Paulino) Pulmonary Resp Exam: Breath Sounds Equal, No Distress (Skylar Paulino) Cardiology CV Exam: Normal Sinus Rhythm (Skylar Paulino) Gastrointestinal/Abdomen GI Exam: Soft, Non-Tender, Bowel Sounds Present (Skylar Paulino) Integumentary Skin Exam: Clear, Warm (Skylar Paulino) Extremeties Extremities Exam: No Edema (Skylar Paulino) Neurologic Neuro Exam: Alert, Awake (Skylar Paulino) Psychiatric Psych Exam: Appropriate Responses (Skylar Paulino) Assessment/Plan Problem List: (1) ESRD on dialysis ICD Codes: N18.6 - End stage renal failure on dialysis; Z99.2 - Dependence on renal dialysis Status: Chronic Plan: Hemodialysis Monday/ / Monday Fluid restriction Avoid fluid administration Continue Renvela Hemodialysis yesterday with UF of 2 liters Cleared per nephrology for discharge If discharged dialysis tomorrow at [facility] Dialysis compliance and fluid restriction encouraged. (2) CHF exacerbation ICD Codes: I50.9 - Heart failure, unspecified Status: Acute Plan: Dialysis T/TH/Sat remove fluid as tolerated (3) Pneumonia ICD Codes: J18.9 - Pneumonia, unspecified organism Status: Acute Plan: on antibiotics (Skylar Paulino) Problem List: (1) ESRD on dialysis ICD Codes: N18.6 - End stage renal failure on dialysis; Z99.2 - Dependence on renal dialysis Status: Chronic Plan: Hemodialysis Monday/ / Monday Fluid restriction Avoid fluid administration Continue Renvela Hemodialysis yesterday with UF of 2 liters Cleared per nephrology for discharge If discharged dialysis tomorrow at [facility] Dialysis compliance and fluid restriction encouraged. Patient seen and examined, agree with above. If discharge, to continue HD as out patient. (2) CHF exacerbation ICD Codes: I50.9 - Heart failure, unspecified Status: Acute Plan: Dialysis T/TH/Sat remove fluid as tolerated (3) Pneumonia ICD Codes: J18.9 - Pneumonia, unspecified organism Status: Acute Plan: on antibiotics (Severo Peck MD) Problem Qualifiers (1) CHF exacerbation: Qualified Codes: I50.9 - Heart failure, unspecified (2) Pneumonia: Qualified Codes: J18.1 - Lobar pneumonia, unspecified organism Skylar Paulino October 06, 2017 12:05 Severo Peck MD October 09, 2017 19:27
== END 2017-10-06 15:58 | disposition home health service (06) | DRG 291 ==
LOC: NEPC 19:58 → NEDA 23:12 → N04B 10-03 00:10
PROVIDERS: ADMIT Hospitalist; ATTEND Hospitalist
PROC: 5A1D70Z Performance of Urinary Filtration, Intermittent, Less than 6 Hours Per Day (ICD-10-PCS; principal; 2017-10-03)
DX: I13.2 Hypertensive heart and chronic kidney disease with heart failure and with stage 5 chronic kidney disease, or end stage renal disease (principal); N18.6 End stage renal disease; J96.90 Respiratory failure, unspecified, unspecified whether with hypoxia or hypercapnia; J18.9 Pneumonia, unspecified organism; E11.22 Type 2 diabetes mellitus with diabetic chronic kidney disease; D69.59 Other secondary thrombocytopenia; I42.9 Cardiomyopathy, unspecified; I50.43 Acute on chronic combined systolic (congestive) and diastolic (congestive) heart failure; E87.5 Hyperkalemia; I27.20 Pulmonary hypertension, unspecified; D63.1 Anemia in chronic kidney disease; B19.20 Unspecified viral hepatitis C without hepatic coma; F14.10 Cocaine abuse, uncomplicated; Z88.2 Allergy status to sulfonamides; Z99.2 Dependence on renal dialysis; Z88.7 Allergy status to serum and vaccine; Z88.8 Allergy status to other drugs, medicaments and biological substances; Z72.0 Tobacco use; Z66 Do not resuscitate
CPT/HCPCS: 36591; 36600; 71045; 80048; 82550; 82552; 82805; 83605; 83735; 83880; 84100; 84484; 85025; 85027; 85610; 85730; 87040; 90935; 93005; 94003; 94640; 94664; J0456; J0610; J0696; J1644; J1815; J1940; J7050

== ENCOUNTER 2017-10-11 15:00 | Inpatient (IN) | payer OTHER ==
[~2017-10-11] VITALS: Ht 193 cm; Wt 62.4 kg
[~2017-10-11 15:00] MED LIST changes: +CEFU1TAB18 PO; +LISI-519 PO; +METO25TA3 PO; +NITR0.4S SL; +SPIR25 PO
[2017-10-11 15:12] VITALS: PULSE 108; RESP 24; TEMP 98.1; O2SAT 100
[2017-10-11] MEDS ORDERED: SODIUM CHLORIDE 0.9% FLUSH 10 ML FLUSH IVF PRN (15:15)
[2017-10-11 15:17] VITALS: BP 108/63; PULSE 108; RESP 20; TEMP 98.1; O2SAT 100
--- NOTE | 2017-10-11 15:17 | PD ---
HPI Chief Complaint: Shortness of breath Time Seen by Provider: 15:08 Travel History International Travel<30 days: No Contact w/Intl Traveler<30days: No History of Present Illness HPI 61-year-old male patient with history of end-stage renal disease on dialysis, pleural effusion, cirrhosis, [facility] with worsening dyspnea on exertion and shortness of breath, general weakness. Patient's family states that patient has had a lot of issues recently, has [facility], and they are in discussion regarding whether the patient may be a hospice candidate. He currently denies no fevers, chest pains, or other issues. Modifying Factors: None Associated Signs & Symptoms: Shortness of breath, general weakness Risk Factors: End-stage renal disease, on dialysis, pleural effusion PFSH Past Medical History Hx Anticoagulant Therapy: Yes (aspirin 81) Asthma: No Autoimmune Disease: No Blood Disorders: No Anxiety: Yes (PTSD) Depression: No Heart Rhythm Problems: No Cancer: No Cardiovascular Problems: Yes High Cholesterol: Yes Chemotherapy: No Chest Pain: Yes Congestive Heart Failure: No COPD: No Cerebrovascular Accident: Yes Coronary Artery Disease: Yes Diabetes: Yes Dialysis: Yes (//MON) Diminished Hearing: No Endocrine: Yes Gastrointestinal Disorders: No GERD: No Genitourinary: Yes (oliguric, DIALYSIS ) Hepatitis: Yes (HEP C) Hiatal Hernia: No Hypertension: Yes Immune Disorder: No Implanted Vascular Access Dvce: Yes Musculoskeletal: Yes Neurologic: Yes Psychiatric: Yes Reproductive: No Respiratory: Yes Immunizations Current: Yes Myocardial Infarction: Yes Radiation Therapy: No Renal Failure: Yes Sleep Apnea: No Thyroid Disease: No Ulcer: No Past Surgical History AICD: No Arteriovenous Shunt: Yes (LEFT FA) Body Medical Devices: FISTULA Endocrine Surgery: Yes (FISTULA LEFT ARM) Genitourinary Surgery: Yes (SCROTAL SX) Insulin Pump: No Joint Replacement: No Pacemaker: No Other Surgery: Yes (FISTULA LEFT ARM) Social History Alcohol Use: No Tobacco Use: Yes (2 CIGS DAILY) Substance Use: No Allergies-Medications (Allergen,Severity, Reaction): Coded Allergies: Influenza Virus Vaccines (Verified Allergy, Severe, 10/11/17) Sulfa (Sulfonamide Antibiotics) (Verified Allergy, Severe, Rash, 10/11/17) ibuprofen (Verified Allergy, Severe, 10/11/17) *MDRO Multi-Drug Resistant Organism (Verified Adverse Reaction, Unknown, ) 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 Reported Meds & Prescriptions Reported Meds & Active Scripts Active Aldactone (Spironolactone) 25 Mg Tab 25 Mg PO DAILY Ceftin (Cefuroxime Axetil) 250 Mg Tab 250 Mg PO BID Metoprolol Tartrate 25 Mg Tab 25 Mg PO BID Nitrostat SL (Nitroglycerin) 0.4 Mg Subl 0.4 Mg SL UNSCH PRN Lisinopril 5 Mg Tab 5 Mg PO DAILY Ventolin Hfa 18 GM Inh (Albuterol Sulfate) 90 Mcg/Act Aer 2 Puff INH Q4-6H PRN Walker Rolling/GetGo (Device) 1 Mis Mis Ea .XX DIRECTED Reported Hydralazine HCl 25 Mg Tablet 25 Mg PO BID Ferrous Sulfate 325 Mg (65 Mg Iron) Tablet 324 Mg PO BIDPC Renvela (Sevelamer Carbonate) 800 Mg Tab 1,600 Mg PO TID Aspirin Adult Low Strength (Aspirin) 81 Mg Tabdr 81 Mg PO DAILY Review of Systems ROS Limitations: Poor Historian Except as stated in HPI: all other systems reviewed are Neg Physical Exam Narrative GENERAL: Well-developed elderly -Cypriot male patient currently in moderate distress. Awake and lethargic. SKIN: Focused skin assessment warm/dry. HEAD: Atraumatic. Normocephalic. EYES: Pupils equal and round. No scleral icterus. No injection or drainage. ENT: No nasal bleeding or discharge. Mucous membranes pink and moist. NECK: Trachea midline. Positive JVD up to the jawline. CARDIOVASCULAR: Regular rate and rhythm. No murmur appreciated. RESPIRATORY: No accessory muscle use. Decreased throughout bilaterally. Breath sounds equal bilaterally. GASTROINTESTINAL: Abdomen soft, non-tender, nondistended. Hepatic and splenic margins not palpable. MUSCULOSKELETAL: No obvious deformities. No clubbing. No cyanosis. Bilateral pitting edema the legs. NEUROLOGICAL: Awake and alert. No obvious cranial nerve deficits. Motor grossly within normal limits. Normal speech. PSYCHIATRIC: Appropriate mood and affect; insight and judgment normal. Data Data Last Documented VS Vital Signs Date Time Temp Pulse Resp B/P (MAP) Pulse Ox O2 Delivery O2 Flow Rate FiO2 10/11/17 16:35 99 16 108/63 (78) 99 Room Air 10/11/17:17 98.1 2.00 Orders Orders Complete Blood Count With Diff (10/11/17 15:08) Comprehensive Metabolic Panel (10/11/17 15:08) B-Type Natriuretic Peptide (10/11/17 15:08) Act Partial Throm Time (Ptt) (10/11/17 15:08) Prothrombin Time / Inr (Pt) (10/11/17 15:08) Ckmb (Isoenzyme) Profile (10/11/17 15:08) Troponin I (10/11/17 15:08) Iv Access Insert/Monitor (10/11/17:08) Electrocardiogram (10/11/17:) Ecg Monitoring (10/11/17:) Oximetry (10/11/17:) Oxygen Administration (10/11/17 15:08) Chest, Single Ap (10/11/17 15:08) Sodium Chloride 0.9% Flush (Ns Flush) (10/11/17 15:15) Blood Flow Rate (10/11/17 17:00) Dialysate Flow Rate (10/11/17 17:00) Dialyzer (10/11/17 17:00) Concentrate (10/11/17 17:00) Acid Concentrate (10/11/17 17:00) Length Of Dialysis (10/11/17 17:00) Frequency Of Dialysis (10/11/17 17:00) Dialysis Obtain (10/11/17 17:00) Needle Size (10/11/17 17:00) Dialysis Schedule (10/11/17 17:00) Resp Oxygen Pedro C Titrat 1-4 L (10/11/17 ) Dialysis Weight (10/11/17 17:00) ^ Obtain As Needed (10/11/17 17:00) Sodium Chlor 0.9% 1000 Ml Inj (Ns 1000 M (10/11/17 17:00) Heparin Inj (Heparin Inj) (10/11/17 17:00) Sodium Chlor 0.9% 1000 Ml Inj (Ns 1000 M (10/11/17 17:00) Sodium Chlor 0.9% 1000 Ml Inj (Ns 1000 M (10/11/17 17:00) Mannitol Inj (Mannitol Inj) (10/11/17 17:00) Albumin 25% Inj (Albumin 25% Inj) (10/11/17 17:00) Sodium Chloride 0.9% Flush (Ns Flush) (10/11/17 17:00) Heparin Inj (Heparin Inj) (10/11/17 17:00) Gentamicin Inj (Gentamicin Inj) (10/11/17 17:00) Ondansetron Inj (Zofran Inj) (10/11/17 17:00) Acetaminophen (Tylenol) (10/11/17 17:00) Diphenhydramine (Benadryl) (10/11/17 17:00) Nitroglycerin Sl (Nitrostat Sl) (10/11/17 17:00) Clonidine (Catapres) (10/11/17 17:00) Epoetin Dominic Inj (Epogen Inj) (10/11/17 17:00) Gelatin 12 Mm/7 Mm Top (Gelfoam 12 Mm/7 (10/11/17 17:00) Admit Order (Ed Use Only) (10/11/17 17:46) Admit To Inpatient (10/11/17 ) Vital Signs (Adult) Q4H (10/11/17 17:46) Activity Oob With Assistance (10/11/17 17:46) Intake + Output NUNO.QSHIFT (10/11/17 17:46) Diet Renal (10/11/17 Dinner) Sodium Chloride 0.9% Flush (Ns Flush) (10/11/17 18:00) Sodium Chloride 0.9% Flush (Ns Flush) (10/11/17 21:00) Basic Metabolic Panel (Bmp) (10/12/17 06:00) Complete Blood Count With Diff (10/12/17 06:00) Pt Request For Service (10/11/17 17:46) Case Management Consult (10/11/17 17:46) Scd Bilateral/Knee High NUNO.BID (10/11/17 17:46) Naloxone Inj (Narcan Inj) (10/11/17 18:00) Magnesium Hydroxide Liq (Milk Of Magnesi (10/11/17 18:00) Sennosides (Senokot) (10/11/17 18:00) Bisacodyl Supp (Dulcolax Supp) (10/11/17 18:00) Lactulose Liq (Lactulose Liq) (10/11/17 18:00) Inpatient Certification (10/11/17 ) Consult Palliative Care (10/11/17 ) Labs Laboratory Tests Test 10/11/17 15:15 White Blood Count 4.6 TH/MM3 Red Blood Count 2.68 MIL/MM3 Hemoglobin 8.4 GM/DL Hematocrit 25.4 % Mean Corpuscular Volume 94.5 FL Mean Corpuscular Hemoglobin 31.4 PG Mean Corpuscular Hemoglobin Concent 33.2 % Red Cell Distribution Width 18.9 % Platelet Count 145 TH/MM3 Mean Platelet Volume 11.1 FL Neutrophils (%) (Auto) 72.0 % Lymphocytes (%) (Auto) 13.3 % Monocytes (%) (Auto) 11.6 % Eosinophils (%) (Auto) 1.9 % Basophils (%) (Auto) 1.2 % Neutrophils # (Auto) 3.3 TH/MM3 Lymphocytes # (Auto) 0.6 TH/MM3 Monocytes # (Auto) 0.5 TH/MM3 Eosinophils # (Auto) 0.1 TH/MM3 Basophils # (Auto) 0.1 TH/MM3 CBC Comment DIFF FINAL Differential Comment Prothrombin Time 10.8 SEC Prothromb Time International Ratio 1.1 RATIO Activated Partial Thromboplast Time 25.5 SEC Blood Urea Nitrogen 41 MG/DL Creatinine 5.61 MG/DL Random Glucose 94 MG/DL Total Protein 7.5 GM/DL Albumin 3.2 GM/DL Calcium Level 9.1 MG/DL Alkaline Phosphatase 93 U/L Aspartate Amino Transf (AST/SGOT) 33 U/L Alanine Aminotransferase (ALT/SGPT) 22 U/L Total Bilirubin 0.3 MG/DL Sodium Level 143 MEQ/L Potassium Level 4.9 MEQ/L Chloride Level 107 MEQ/L Carbon Dioxide Level 27.5 MEQ/L Anion Gap 9 MEQ/L Estimat Glomerular Filtration Rate 13 ML/MIN Total Creatine Kinase 82 U/L Troponin I 0.11 NG/ML B-Type Natriuretic Peptide 4266 PG/ML MDM Medical Decision Making Medical Screen Exam Complete: Yes Emergency Medical Condition: Yes Medical Record Reviewed: Yes Interpretation(s) EKG shows sinus tachycardia at 100 bpm. No signs of acute ST elevations or depressions. LVH. Laboratory Tests Test 10/11/17 15:15 Red Blood Count 2.68 MIL/MM3 (4.50-5.90) Hemoglobin 8.4 GM/DL (13.0-17.0) Hematocrit 25.4 % (39.0-51.0) Red Cell Distribution Width 18.9 % (11.6-17.2) Platelet Count 145 TH/MM3 (150-450) Mean Platelet Volume 11.1 FL (7.0-11.0) Neutrophils (%) (Auto) 72.0 % (16.0-70.0) Monocytes (%) (Auto) 11.6 % (0.0-8.0) Lymphocytes # (Auto) 0.6 TH/MM3 (1.0-4.8) Blood Urea Nitrogen 41 MG/DL (7-18) Creatinine 5.61 MG/DL (0.60-1.30) Albumin 3.2 GM/DL (3.4-5.0) Estimat Glomerular Filtration Rate 13 ML/MIN (>89) Troponin I 0.11 NG/ML (0.02-0.05) B-Type Natriuretic Peptide 4266 PG/ML (0-100) Last 24 hours Impressions Chest X-Ray 10/11/17 1508 Signed Impressions: CONCLUSION: 1. Persistent infiltrate with small right effusion slightly improved compared to the prior study. 2. Stable cardiomegaly 3. Mild pulmonary venous congestion. Differential Diagnosis Fluid overload versus pneumonia versus pleural effusion Narrative Course Chest x-ray shows right sided pleural effusion and infiltrate at the right base which actually is improved from the last time, concerning for underlying pulmonary edema especially with BNP of 4000. Case had been discussed with Dr. Peck, patient's account collector, and he came in to see the patient, is planning to do dialysis today and tomorrow, planning to admit for further treatment. Case was discussed with Dr. Novoa for admission. Diagnosis Primary Impression: Pulmonary edema Additional Impression: Elevated troponin level Admitting Information Admitting Physician Requests: Admit Zachery Thakkar MD October 11, 2017 15:17
[2017-10-11 15:50] LABS: AUTOMATED NEUTROPHIL # 3.3 TH/MM3 (1.8-7.7); BASOPHIL # 0.1 TH/MM3 (0-0.2); BASOPHIL % 1.2 % (0.0-2.0); EOSINOPHIL # 0.1 TH/MM3 (0-0.4); EOSINOPHIL % 1.9 % (0.0-4.0); HEMATOCRIT 25.4 % (39.0-51.0); HEMOGLOBIN 8.4 GM/DL (13.0-17.0); INTERNATIONAL NORMALIZED RATIO 1.1 RATIO; LYMPH % 13.3 % (9.0-44.0); LYMPHOCYTE # 0.6 TH/MM3 (1.0-4.8); MEAN CELL VOLUME 94.5 FL (80.0-100.0); MEAN CORPUSCULAR HEMOGLOBIN 31.4 PG (27.0-34.0); MEAN CORPUSCULAR HGB CONC 33.2 % (32.0-36.0); MEAN PLATELET VOLUME 11.1 FL (7.0-11.0); MONO % 11.6 % (0.0-8.0); MONOCYTE # 0.5 TH/MM3 (0-0.9); PLATELET COUNT 145 TH/MM3 (150-450); PROTHROMBIN TIME - PATIENT 10.8 SEC (9.8-11.6); RED BLOOD COUNT 2.68 MIL/MM3 (4.50-5.90); RED CELL DISTRIBUTION WIDTH 18.9 % (11.6-17.2); WHITE BLOOD COUNT 4.6 TH/MM3 (4.0-11.0)
--- NOTE | 2017-10-11 15:54 | RADRPT ---
EXAM DATE: 10/11/2017 3:50 PM EDT AGE/SEX: 61 years / Male INDICATIONS: Shortness of breath and weakness. CLINICAL DATA: This is the patient's initial encounter. Patient reports that signs and symptoms have been present for 1 day and indicates a pain score of Nonresponsive. MEDICAL/SURGICAL HISTORY: Congestive heart failure. Hypercholesterolemia. Hypertension. Rosa nary artery disease. Myocardial infarction. Non-responsive. Left FA. [place] [facility] [place]. . FINDINGS: There is a persistent infiltrate and effusion the right lower lung. This is slightly improved compare d to the prior study. The left lung remains grossly clear. The heart size is enlarged but stable. The re is some stable mild pulmonary venous congestion. No pneumothorax. The bony structures are stable. CONCLUSION: 1. Persistent infiltrate with small right effusion slightly improved compared to the prior study. 2. Stable cardiomegaly 3. Mild pulmonary venous congestion. Electronically signed by: Dudley Akbar MD 10/11/2017 3:53 PM EDT
[2017-10-11 15:55] LABS: ALBUMIN 3.2 GM/DL (3.4-5.0); ALT (GPT) 22 U/L (12-78); AST (GOT) 33 U/L (15-37); BICARBONATE 27.5 MEQ/L (21.0-32.0); BLOOD UREA NITROGEN 41 MG/DL (7-18); CALCIUM 9.1 MG/DL (8.5-10.1); CHLORIDE 107 MEQ/L (98-107); CREATININE 5.61 MG/DL (0.60-1.30); GLOMERULAR FILTRATION RATE 13 ML/MIN (>89); GLUCOSE,RANDOM 94 MG/DL (74-106); SODIUM (NA) 143 MEQ/L (136-145)
[2017-10-11 15:58] LABS: ALKALINE PHOSPHATASE 93 U/L (45-117); TOTAL BILIRUBIN ADULT 0.3 MG/DL (0.2-1.0); TOTAL PROTEIN 7.5 GM/DL (6.4-8.2); TROPONIN I 0.11 NG/ML (0.02-0.05)
[2017-10-11 16:35] VITALS: BP 108/63; PULSE 99; RESP 16; O2SAT 99
[2017-10-11] MEDS ORDERED: SODIUM CHLOR 0.9% 1000 ML INJ 1,000 ML OTHER PRN ×2 (17:00)
[2017-10-11] MEDS ORDERED: diphenhydrAMINE HCL 25 MG CAP PO PRN (17:00)
[2017-10-11] MEDS ORDERED: SODIUM CHLOR 0.9% 1000 ML INJ 1,000 ML IV PRN (17:00)
[2017-10-11] MEDS ORDERED: HEPARIN SODIUM - IV 10,000 UNITS/10 ML VIAL IV FLUSH PRN (17:00)
[2017-10-11] MEDS ORDERED: ACETAMINOPHEN 325 MG TAB PO PRN (17:00)
[2017-10-11] MEDS ORDERED: GELATIN 12 MM/7 MM FOAM TOP PRN (17:00)
[2017-10-11] MEDS ORDERED: EPOETIN ALFA 10,000 UNITS/ML VIAL IV PUSH PRN (17:00)
[2017-10-11] MEDS ORDERED: cloNIDine HCL 0.1 MG TAB PO PRN (17:00)
[2017-10-11] MEDS ORDERED: SODIUM CHLORIDE 0.9% FLUSH 10 ML FLUSH IV FLUSH PRN ×2 (17:00→18:00)
[2017-10-11] MEDS ORDERED: MANNITOL 12.5 GM/50 ML VIAL IV PRN (17:00)
[2017-10-11] MEDS ORDERED: GENTAMICIN SULFATE 20 MG/2 ML VIAL OTHER PRN (17:00)
[2017-10-11] MEDS ORDERED: ALBUMIN 25% INJ 100 ML IV PRN (17:00)
[2017-10-11] MEDS ORDERED: HEPARIN SODIUM - IV 10,000 UNITS/10 ML VIAL PRN (17:00)
[2017-10-11] MEDS ORDERED: ONDANSETRON HCL 4 MG/2 ML VIAL IV PUSH PRN (17:00)
[2017-10-11] MEDS ORDERED: NITROGLYCERIN 0.4 MG SL 25 TABS/BTL SL PRN (17:00)
--- NOTE | 2017-10-11 17:06 | PD.CONS ---
HPI Service Nephrology Consult Requested By Reason for Consult End stage renal disease on hemodialysis Primary Care Physician [facility] History of Present Illness Patient is a 61 year old male with a past medical history of hypertension, diabetes, hx of cocaine use and hepatitits C, congestive heart failure with EF of 25-30%, hx of bradycardia and PEA arrest, and end stage renal disease on hemodialysis Monday, , and Monday. Presented to emergency room with worsening shortness of breath. Nephrology is consulted for management of end stage renal disease. Last dialysis was on yesterday. 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 He admits to smoking and also uses cocaine off and on. There is no history of heavy alcoholism. (Skylar Paulino) Physical Exam Vital Signs Vital Signs Date Time Temp Pulse Resp B/P (MAP) Pulse Ox O2 Delivery O2 Flow Rate FiO2 10/11/17 16:35 99 16 108/63 (78) 99 Room Air 10/11/17 15:17 99 Nasal Cannula 10/11/17 15:17 98.1 108 20 108/63 (78) 100 Nasal Cannula 2.00 10/11/17 15:17 99 Nasal Cannula 2.00 10/11/17 15:12 98.1 108 24 100 Physical Exam GENERAL: Lethargic -Maldivian male patient currently in moderate distress. SKIN: Warm and dry. :Left arm AVF HEAD: Normocephalic. EYES: No scleral icterus. No injection or drainage. NECK: Supple, trachea midline. Positive JVD or lymphadenopathy. CARDIOVASCULAR: Regular rate and rhythm without murmurs, gallops, or rubs. RESPIRATORY: Breath sounds equal bilaterally. No accessory muscle use. GASTROINTESTINAL: Abdomen soft, non-tender, nondistended. MUSCULOSKELETAL: No cyanosis, or edema. BACK: Nontender without obvious deformity. No CVA tenderness. Laboratory Laboratory Tests Test 10/11/17 15:15 White Blood Count 4.6 Red Blood Count 2.68 Hemoglobin 8.4 Hematocrit 25.4 Mean Corpuscular Volume 94.5 Mean Corpuscular Hemoglobin 31.4 Mean Corpuscular Hemoglobin Concent 33.2 Red Cell Distribution Width 18.9 Platelet Count 145 Mean Platelet Volume 11.1 Neutrophils (%) (Auto) 72.0 Lymphocytes (%) (Auto) 13.3 Monocytes (%) (Auto) 11.6 Eosinophils (%) (Auto) 1.9 Basophils (%) (Auto) 1.2 Neutrophils # (Auto) 3.3 Lymphocytes # (Auto) 0.6 Monocytes # (Auto) 0.5 Eosinophils # (Auto) 0.1 Basophils # (Auto) 0.1 CBC Comment DIFF FINAL Differential Comment Prothrombin Time 10.8 Prothromb Time International Ratio 1.1 Activated Partial Thromboplast Time 25.5 Blood Urea Nitrogen 41 Creatinine 5.61 Random Glucose 94 Total Protein 7.5 Albumin 3.2 Calcium Level 9.1 Alkaline Phosphatase 93 Aspartate Amino Transf (AST/SGOT) 33 Alanine Aminotransferase (ALT/SGPT) 22 Total Bilirubin 0.3 Sodium Level 143 Potassium Level 4.9 Chloride Level 107 Carbon Dioxide Level 27.5 Anion Gap 9 Estimat Glomerular Filtration Rate 13 Total Creatine Kinase 82 Troponin I 0.11 B-Type Natriuretic Peptide 4266 (Skylar Paulino) Result Diagram: 10/11/17 1515 10/11/17 1515 Imaging Last Impressions Chest X-Ray 10/11/17 1508 Signed Impressions: CONCLUSION: 1. Persistent infiltrate with small right effusion slightly improved compared to the prior study. 2. Stable cardiomegaly 3. Mild pulmonary venous congestion. (Skylar Paulino) Assessment and Plan Problem List: (1) ESRD on dialysis ICD Codes: N18.6 - End stage renal failure on dialysis; Z99.2 - Dependence on renal dialysis Status: Chronic Plan: Hemodialysis Monday/ / Monday Last hemodialysis was yesterday, completed. Fluid restriction Epogen with dialysis Avoid fluid administration Plan for hemodialysis short treatment today and then regular treatment tomorrow. Orders placed and dialysis called. (Skylar Paulino) Problem List: (1) ESRD on dialysis ICD Codes: N18.6 - End stage renal failure on dialysis; Z99.2 - Dependence on renal dialysis Status: Chronic Plan: Hemodialysis Monday/ / Monday Last hemodialysis was yesterday, completed. Fluid restriction Epogen with dialysis Avoid fluid administration Plan for hemodialysis short treatment today and then regular treatment tomorrow. Orders placed and dialysis called. HD for 2 hrs, to remove more fluid. Continue HD TTS. (Severo Peck MD) Skylar Paulino October 11, 2017 17:06 Severo Peck MD October 12, 2017 00:22
[2017-10-11] MEDS ORDERED: SENNOSIDES 8.6 MG TAB PO PRN (18:00)
[2017-10-11] MEDS ORDERED: NALOXONE HCL 0.4 MG/ML AMP IV PUSH PRN (18:00)
[2017-10-11] MEDS ORDERED: LACTULOSE SYRUP 20 GM/30 ML CUP PO PRN (18:00)
[2017-10-11] MEDS ORDERED: MAGNESIUM HYDROXIDE SUSP 30 ML CUP PO PRN (18:00)
[2017-10-11] MEDS ORDERED: BISACODYL 10 MG SUPP RECTAL PRN (18:00)
--- NOTE | 2017-10-11 18:39 | HHI.HP ---
[facility] Service [facility] Primary Care Physician [facility] Admission Diagnosis Fluid overload/CHF Diagnoses: Travel History International Travel<30 Days: No Contact w/Intl Traveler <30 Da: No Traveled to Known Affected Are: No History of Present Illness 61-year-old male with a history of end-stage renal disease on hemodialysis Monday, , Monday, CHF with EF around 2530%, diabetes, cocaine abuse who presents with a one-week history of worsening shortness of breath. Recent admission for CHF exacerbation secondary to fluid overload from missed dialysis. Patient denies any cough, denies any chest pain. Denies nausea or vomiting. Denies constipation or diarrhea. Patient is uncertain of the year, month, however does know the hospital. Patient is uncertain if he was taking his medications, does not know the names of his medications. Review of Systems Except as stated in HPI: all other systems reviewed are Neg Past Family Social History Past Medical History End-stage renal disease on hemodialysis Monday Hypertension Diabetes mellitus CHF with ejection fraction 2530% Hepatitis C Tobacco use. Cocaine abuse Chronic anemia of renal disease Past Surgical History ORIF finger Left upper extremity fistula 09/14/12 Cardiac catheterization 2012 Reported Medications Reported Meds & Active Scripts Active Aldactone (Spironolactone) 25 Mg Tab 25 Mg PO DAILY Ceftin (Cefuroxime Axetil) 250 Mg Tab 250 Mg PO BID Metoprolol Tartrate 25 Mg Tab 25 Mg PO BID Nitrostat SL (Nitroglycerin) 0.4 Mg Subl 0.4 Mg SL UNSCH PRN Lisinopril 5 Mg Tab 5 Mg PO DAILY Ventolin Hfa 18 GM Inh (Albuterol Sulfate) 90 Mcg/Act Aer 2 Puff INH Q4-6H PRN Walker Rolling/GetGo (Device) 1 Mis Mis Ea .XX DIRECTED Reported Hydralazine HCl 25 Mg Tablet 25 Mg PO BID Ferrous Sulfate 325 Mg (65 Mg Iron) Tablet 324 Mg PO BIDPC Renvela (Sevelamer Carbonate) 800 Mg Tab 1,600 Mg PO TID Aspirin Adult Low Strength (Aspirin) 81 Mg Tabdr 81 Mg PO DAILY Allergies: Coded Allergies: Influenza Virus Vaccines (Verified Allergy, Severe, 10/11/17) Sulfa (Sulfonamide Antibiotics) (Verified Allergy, Severe, Rash, 10/11/17) ibuprofen (Verified Allergy, Severe, 10/11/17) *MDRO Multi-Drug Resistant Organism (Verified Adverse Reaction, Unknown, ) 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 Says his mother has . Social History Patient reports smoking 1 pack of cigarettes per week for the past 10 years. Denies any alcohol. He denies any illicit drugs, however documented history of cocaine use. Physical Exam Vital Signs Vital Signs Date Time Temp Pulse Resp B/P (MAP) Pulse Ox O2 Delivery O2 Flow Rate FiO2 10/11/17 16:35 99 16 108/63 (78) 99 Room Air 10/11/17 15:17 99 Nasal Cannula 10/11/17 15:17 98.1 108 20 108/63 (78) 100 Nasal Cannula 2.00 10/11/17 15:17 99 Nasal Cannula 2.00 10/11/17 15:12 98.1 108 24 100 Physical Exam GENERAL: This is a well-nourished, well-developed patient, in no apparent distress. SKIN: No rashes, ecchymoses or lesions. Cool and dry. HEAD: Atraumatic. Normocephalic. No temporal or scalp tenderness. EYES: Pupils equal round and reactive. Extraocular motions intact. No scleral icterus. No injection or drainage. ENT: Nose without bleeding, purulent drainage or septal hematoma. Throat without erythema, tonsillar hypertrophy or exudate. Uvula midline. Airway patent. NECK: Trachea midline. No JVD or lymphadenopathy. Supple, nontender, no meningeal signs. CARDIOVASCULAR: Regular rate and rhythm without murmurs, gallops, or rubs. RESPIRATORY: Clear to auscultation. Breath sounds equal bilaterally. No wheezes , rales, or rhonchi. GASTROINTESTINAL: Abdomen soft, non-tender, nondistended. No hepato-splenomegaly , or palpable masses. No guarding. MUSCULOSKELETAL: Extremities without clubbing, cyanosis, or edema. No joint tenderness, effusion, or edema noted. No calf tenderness. Negative Homans sign bilaterally. NEUROLOGICAL: Awake and alert. Cranial nerves II through XII intact. Motor and sensory grossly within normal limits. Five out of 5 muscle strength in all muscle groups. Normal speech. Laboratory Laboratory Tests Test 10/11/17 15:15 White Blood Count 4.6 Red Blood Count 2.68 Hemoglobin 8.4 Hematocrit 25.4 Mean Corpuscular Volume 94.5 Mean Corpuscular Hemoglobin 31.4 Mean Corpuscular Hemoglobin Concent 33.2 Red Cell Distribution Width 18.9 Platelet Count 145 Mean Platelet Volume 11.1 Neutrophils (%) (Auto) 72.0 Lymphocytes (%) (Auto) 13.3 Monocytes (%) (Auto) 11.6 Eosinophils (%) (Auto) 1.9 Basophils (%) (Auto) 1.2 Neutrophils # (Auto) 3.3 Lymphocytes # (Auto) 0.6 Monocytes # (Auto) 0.5 Eosinophils # (Auto) 0.1 Basophils # (Auto) 0.1 CBC Comment DIFF FINAL Differential Comment Prothrombin Time 10.8 Prothromb Time International Ratio 1.1 Activated Partial Thromboplast Time 25.5 Blood Urea Nitrogen 41 Creatinine 5.61 Random Glucose 94 Total Protein 7.5 Albumin 3.2 Calcium Level 9.1 Alkaline Phosphatase 93 Aspartate Amino Transf (AST/SGOT) 33 Alanine Aminotransferase (ALT/SGPT) 22 Total Bilirubin 0.3 Sodium Level 143 Potassium Level 4.9 Chloride Level 107 Carbon Dioxide Level 27.5 Anion Gap 9 Estimat Glomerular Filtration Rate 13 Total Creatine Kinase 82 Troponin I 0.11 B-Type Natriuretic Peptide 4266 Result Diagram: 10/11/17 1515 10/11/17 1515 Imaging Last Impressions Chest X-Ray 10/11/17 1508 Signed Impressions: CONCLUSION: 1. Persistent infiltrate with small right effusion slightly improved compared to the prior study. 2. Stable cardiomegaly 3. Mild pulmonary venous congestion. Caprini VTE Risk Assessment Caprini VTE Risk Assessment: Mod/High Risk (score >= 2) Caprini Risk Assessment Model Point Value = 1 Point Value = 2 Point Value = 3 Point Value = 5 Age 41-60 Minor surgery BMI > 25 kg/m2 Swollen legs Varicose veins or History of unexplained or recurrent spontaneous Oral contraceptives or hormone replacement Sepsis (< 1 month) Serious lung disease, including pneumonia (< 1 month) Abnormal pulmonary function Acute myocardial infarction Congestive heart failure (< 1 month) History of inflammatory bowel disease Medical patient at bed rest Age 61-74 Arthroscopic surgery Major open surgery (> 45 min) Laparoscopic surgery (> 45 min) Malignancy Confined to bed (> 72 hours) Immobilizing plaster cast Central venous access Age >= 75 History of VTE Family history of VTE Factor V Leiden Prothrombin [id number] Lupus anticoagulant Anticardiolipin antibodies Elevated serum homocysteine Heparin-induced thrombocytopenia Other congenital or acquired thrombophilia Stroke (< 1 month) Elective arthroplasty Hip, pelvis, or leg fracture Acute spinal cord injury (< 1 month) Prophylaxis Regimen Total Risk Factor Score Risk Level Prophylaxis Regimen 0-1 Low Early ambulation 2 Moderate Order ONE of the following: *Sequential Compression Device (SCD) *Heparin 5000 units SQ BID 3-4 Higher Order ONE of the following medications: *Heparin 5000 units SQ TID *Enoxaparin/Lovenox 40 mg SQ daily (WT < 150 kg, CrCl > 30 mL/min) *Enoxaparin/Lovenox 30 mg SQ daily (WT < 150 kg, CrCl > 10-29 mL/min) *Enoxaparin/Lovenox 30 mg SQ BID (WT < 150 kg, CrCl > 30 mL/min) AND/OR *Sequential Compression Device (SCD) 5 or more Highest Order ONE of the following medications: *Heparin 5000 units SQ TID (Preferred with Epidurals) *Enoxaparin/Lovenox 40 mg SQ daily (WT < 150 kg, CrCl > 30 mL/min) *Enoxaparin/Lovenox 30 mg SQ daily (WT < 150 kg, CrCl > 10-29 mL/min) *Enoxaparin/Lovenox 30 mg SQ BID (WT < 150 kg, CrCl > 30 mL/min) AND *Sequential Compression Device (SCD) Assessment and Plan Assessment and Plan //Pending respiratory failure secondary to systolic and diastolic CHF. //Acute on chronic systolic and diastolic CHF exacerbation = Recent echocardiogram in August 2017 with LVEF 5%, severe pulmonary hypertension, valvular insufficiencies. = Chest x-ray as above with effusion, pulmonary vascular congestion -BNP 4266, chest x-ray not significantly changed from previous chest x-ray performed for CHF exacerbation. = Secondary to fluid overload, ESRD = Oxygen as needed. Hemodialysis for fluid removal. Discussed with dialysis tach, planning to remove 3 L. Appreciate nephrology assistance. //ESRD on hemodialysis Monday = Nephrology consulted for dialysis. //Recent admission, with possible pneumonia. This appears to be improving on chest x-ray. Effusion is likely secondary to fluid overload. No signs of infection. No need for continuing antibiotics. //Suspect chronic dementia versus delirium No acute neurologic abnormalities, however patient is disoriented to year and month. This could be secondary to ESRD, fluid overload, however suspect chronic dementia. = No family at bedside. Further discussion with family tomorrow. //History of noncompliance ED reports that family and patient are asking about hospice. We will consult palliative care to discuss options going forward with patient and family. //Diabetes mellitus. Chronic. Insulin sliding scale and diabetic diet //Hypertension. Continue home blood pressure medications as appropriate. Pending verification of home medications.. //Cocaine abuse. Patient continues to use despite counseling. //Anemia of chronic renal disease. Hemoglobin 8.4. No signs of bleeding. This is likely dilutional from fluid overload. Continue to monitor. Discussed Condition With Patient, nurse, ED physician, dialysis nurse Physician Certification 2 Midnight Certification Type: Admission for Inpatient Services Order for Inpatient Services The services are ordered in accordance with Medicare regulations or non- Medicare payer requirements, as applicable. In the case of services not specified as inpatient-only, they are appropriately provided as inpatient services in accordance with the 2-midnight benchmark. Estimated LOS (days): 2 days is the estimated time the patient will need to remain in the hospital, assuming treatment plan goals are met and no additional complications. Post-Hospital Plan: Not yet determined Jim Novoa MD October 11, 2017 18:39
[2017-10-11 19:56] VITALS: BP 114/74; PULSE 103; RESP 20; TEMP 98.1; O2SAT 98
[2017-10-11] MEDS: INSULIN ASPART SUPPLEMENTAL SCALE SQ SCH (21:00)
[2017-10-11] MEDS: HEPARIN SODIUM - SQ 10,000 UNITS/ML VIAL SQ SCH (21:22)
[2017-10-11] MEDS: SODIUM CHLORIDE 0.9% FLUSH 10 ML FLUSH IV FLUSH SCH (21:22)
[2017-10-11 21:50] VITALS: BP 117/67; PULSE 93; RESP 18; O2SAT 99
[2017-10-11 23:20] VITALS: BP 117/77; PULSE 89; RESP 20; TEMP 98.2; O2SAT 97
[2017-10-12] VITALS (21 sets, daily range): BP systolic 107–120; BP diastolic 60–80; PULSE 82–107; RESP 18–24; TEMP 97.9–98.8; O2SAT 96–99
[2017-10-12] MEDS: METOPROLOL TARTRATE 25 MG TAB PO SCH ×3 (01:27→21:30)
[2017-10-12 06:35] LABS: AUTOMATED NEUTROPHIL # 3.2 TH/MM3 (1.8-7.7); BASOPHIL # 0.1 TH/MM3 (0-0.2); BASOPHIL % 1.3 % (0.0-2.0); EOSINOPHIL # 0.1 TH/MM3 (0-0.4); EOSINOPHIL % 1.6 % (0.0-4.0); HEMATOCRIT 27.6 % (39.0-51.0); LYMPH % 13.9 % (9.0-44.0); LYMPHOCYTE # 0.6 TH/MM3 (1.0-4.8); MEAN CELL VOLUME 94.4 FL (80.0-100.0); MEAN CORPUSCULAR HEMOGLOBIN 30.8 PG (27.0-34.0); MEAN CORPUSCULAR HGB CONC 32.6 % (32.0-36.0); MEAN PLATELET VOLUME 11.2 FL (7.0-11.0); MONO % 13.3 % (0.0-8.0); MONOCYTE # 0.6 TH/MM3 (0-0.9); NEUT % 69.9 % (16.0-70.0); PLATELET COUNT 151 TH/MM3 (150-450); RED BLOOD COUNT 2.92 MIL/MM3 (4.50-5.90); RED CELL DISTRIBUTION WIDTH 18.8 % (11.6-17.2); WHITE BLOOD COUNT 4.5 TH/MM3 (4.0-11.0)
[2017-10-12 07:01] LABS: BICARBONATE 29.7 MEQ/L (21.0-32.0); CALCIUM 9.3 MG/DL (8.5-10.1); CREATININE 5.05 MG/DL (0.60-1.30)
[2017-10-12] MEDS: INSULIN ASPART SUPPLEMENTAL SCALE SQ SCH ×4 (08:45→21:15)
[2017-10-12] MEDS: hydrALAZINE HCL 25 MG TAB PO SCH ×3 (09:00→21:30)
[2017-10-12] MEDS: SEVELAMER CARBONATE 800 MG TAB PO SCH ×3 (09:00→18:10)
[2017-10-12] MEDS: LISINOPRIL 5 MG TAB PO SCH (09:00)
--- NOTE | 2017-10-12 09:37 | HHI.NPPN ---
Subjective General Problems: Anemia Renal Failure: End Stage Renal Disease History of Present Illness Patient is a 61 year old male with a past medical history of hypertension, diabetes, hx of cocaine use and hepatitits C, congestive heart failure with EF of 25-30%, hx of bradycardia and PEA arrest, and end stage renal disease on hemodialysis Monday, , and Monday. Presented to emergency room with worsening shortness of breath. Nephrology is consulted for management of end stage renal disease. Last dialysis was on yesterday. Additional Remarks Seen during hemodialysis tolerating well. No complaints. Mental status has improved. (Skylar Paulino) Review of Systems Respiratory Respiratory Remarks Denies shortness of breath (Skylar Paulino) Cardiovascular Cardiac Remarks Denies chest pain (Skylar Paulino) Gastrointestinal GI Remarks Denies abdominal pain (Skylar Paulino) Objective Data Data Vital Signs Date Time Temp Pulse Resp B/P (MAP) Pulse Ox O2 Delivery O2 Flow Rate FiO2 10/12/17 07:46 97.9 20 114/60 (78) 10/12/17 03:00 98.8 82 18 109/62 (78) 99 10/11/17 23:20 98.2 89 20 117/77 (90) 97 10/11/17 23:20 10/11/17 21:50 93 18 117/67 (84) 99 Room Air 10/11/17 19:56 98.1 103 20 114/74 (87) 98 Room Air 10/11/17 16:35 99 16 108/63 (78) 99 Room Air 10/11/17 15:17 99 Nasal Cannula 10/11/17 15:17 98.1 108 20 108/63 (78) 100 Nasal Cannula 2.00 10/11/17 15:17 99 Nasal Cannula 2.00 10/11/17 15:12 98.1 108 24 100 (Skylar Paulino) -: 10/12/17 0552 10/12/17 0552 Imaging Last Impressions Chest X-Ray 10/11/17 1508 Signed Impressions: CONCLUSION: 1. Persistent infiltrate with small right effusion slightly improved compared to the prior study. 2. Stable cardiomegaly 3. Mild pulmonary venous congestion. (Skylar Paulino) Physical Exam General Appearance: No Acute Distress, Comfortable (Skylar Paulino) Pulmonary Resp Exam: Breath Sounds Equal, No Distress, Diminished Breath Sounds (Skylar Paulino) Cardiology CV Exam: Regular (Skylar Paulino) Gastrointestinal/Abdomen GI Exam: Soft, Non-Tender, Bowel Sounds Present (Skylar Paulino) Integumentary Skin Exam: Clear, Warm (Skylar Paulino) Extremeties Extremities Exam: No Edema (Skylar Paulino) Neurologic Neuro Exam: Alert, Oriented (Skylar Paulino) Psychiatric Psych Exam: Appropriate Responses (Skylar Paulino) Assessment/Plan Problem List: (1) ESRD on dialysis ICD Codes: N18.6 - End stage renal failure on dialysis; Z99.2 - Dependence on renal dialysis Status: Chronic Plan: Hemodialysis Monday/ / Monday Fluid restriction 1000 ml per day Epogen with dialysis Avoid fluid administration Hemodialysis yesterday with UF of 3 liters Seen during hemodialysis today. Breathing much easier. (2) Anemia ICD Codes: D64.9 - Anemia, unspecified Status: Acute Plan: Epogen with dialysis (3) Hypertension ICD Codes: I10 - Hypertension Status: Chronic Plan: Well controlled (4) CHF exacerbation ICD Codes: I50.9 - Heart failure, unspecified Status: Acute Plan: Breathing much easier on RA. Dialysis yesterday and today. (Skylar Paulino) Problem List: (1) ESRD on dialysis ICD Codes: N18.6 - End stage renal failure on dialysis; Z99.2 - Dependence on renal dialysis Status: Chronic Plan: Hemodialysis Monday/ / Monday Fluid restriction 1000 ml per day Epogen with dialysis Avoid fluid administration Hemodialysis yesterday with UF of 3 liters Seen during hemodialysis today. Breathing much easier. Patient seen and examine, agree with above. Feeling better, continue HD as schedule. (2) Anemia ICD Codes: D64.9 - Anemia, unspecified Status: Acute Plan: Epogen with dialysis (3) Hypertension ICD Codes: I10 - Hypertension Status: Chronic Plan: Well controlled (4) CHF exacerbation ICD Codes: I50.9 - Heart failure, unspecified Status: Acute Plan: Breathing much easier on RA. Dialysis yesterday and today. (Severo Peck MD) Skylar Paulino October 12, 2017 09:37 Severo Peck MD October 13, 2017 00:18
--- NOTE | 2017-10-12 13:00 | PD.CONS ---
Consult Service Palliative Care Consult Requested By Dr. Novoa . [facility] Reason for Consultation a. To assist with evaluation and management of symptoms including: Agitation , dyspnea, weakness b. To assist medical decision maker(s) with: better understanding of current medical conditions; weighing benefits/burdens of medical treatment options; making medical treatment decisions. HPI History of Present Illness This is a 61-year-old -Turkmen male with a history of end-stage renal disease on HD TTHSA, PTSD, CVA, frequent cocaine use, hepatitis C and diabetes who presents to the emergency room with worsening dyspnea and weakness. He follows with the [facility] for his primary medical needs as well as having frequent admissions to the hospital. Per the ED notes, family is discussing the possibility of the patient being a hospice candidate. There is no family at bedside today and message has been left for the to return call. ED course * Laboratory: WBC 4.6, hemoglobin 8.4, hematocrit 25.4, platelets 145, sodium 143, potassium 4.9, BUN 41, creatinine 5.61, alkaline phosphatase 93, AST 33, ALT 22, total bilirubin 0.3, total creatinine kinase 82, troponin 0 0.11, B natruretic peptide 4266. * Radiology: Chest x-ray shows persistent infiltrate with small right effusion, slightly improved compared to prior study with stable cardiomegaly and mild pulmonary venous congestion. Nephrology was consulted for dialysis management, which was initiated 10/10. He was also dialyzed 10/11 due to the need to remove more fluid and is being dialyzed again today to get him back on his regular schedule. At this evaluation, he is seen during dialysis, noncompliant with treatment regimen. He is flailing his arms, screaming and cursing at staff, threatening to leave the hospital and wants somebody to "get him out of here". He became less agitated as staff talked calmly and pleasantly to him then laid back and closed his eyes as if going to sleep. He was willing to answer some questions for me but then again closed his eyes as if going to sleep. He does become dyspneic while speaking, however he is agitated, waving his arms and yelling. Oxygen saturation has been adequate. He describes his dyspnea as moderate to severe, worsening with laying flat or activity, with the character of not being able to get a deep enough breath of constant duration. He states that he had become progressively weaker and was having difficulty ambulating any distance, constant in duration worsening with activity. While oriented, some of his answers were inconsistent with the questions and previously stated information. He does not appear to have good insight into his disease. . Function/Cognitive Trajectory He presented with a complaint of generalized weakness. He was seen 10/06, on his last admission and was ambulating without any assistive devices. He had previously been using a wheeled walker at home and denies any history of falls. He was recommended home health PT at home, however patient has a long history of medical noncompliance and a history of intermittent homelessness. . Review of Systems Constitutional: COMPLAINS OF: Generalized weakness Endocrine: DENIES: Heat/cold intolerance, Polydipsia, Polyuria, Polyphagia Eyes: DENIES: Blurred vision, Diplopia, Eye inflammation, Eye pain, Vision loss , Photosensitivity, Double Vision, Blind spots Ears, nose, mouth, throat: DENIES: Tinnitus, Hearing loss, Vertigo, Nasal discharge, Oral lesions, Throat pain, Hoarseness, Ear Pain, Running Nose, Epistaxis, Sinus Pain, Toothache, Odynophagia Respiratory: COMPLAINS OF: Shortness of breath Cardiovascular: COMPLAINS OF: Dyspnea on Exertion, Orthopnea Gastrointestinal: DENIES: Abdominal pain, Black stools, Bloody stools, Constipation, Diarrhea, Nausea, Vomiting, Difficulty Swallowing, Anorexia, Dyspepsia or heartburn, Excessive gas, Bloating, Vomiting blood Genitourinary: DENIES: Sexual dysfunction, Urinary frequency, Urinary incontinence, Urgency, Hematuria, Dysuria, Nocturia, Penile Discharge, Testicular Pain, Testicular Swelling, Hesitancy, Dribbling, Decreased stream Musculoskeletal: DENIES: Joint pain, Muscle aches, Stiffness, Joint Swelling, Back pain, Neck pain, Decreased range of motion Integumentary: DENIES: Abnormal pigmentation, Nail changes, Pruritus, Rash, Nodules, Tumors, Excessive dryness, Non-healing sores Hematologic/Lymphatics: DENIES: Bruising, Lymphadenopathy, Prolonged bleed w/ proced, History of transfusions Immunologic/Allergic: DENIES: Eczema, Urticaria Neurologic: DENIES: Abnormal gait, Headache, Localized weakness, Paresthesias, Seizures, Speech Problems, Tremor, Poor Balance, Change in smell or taste Psychiatric: COMPLAINS OF: Anxiety Past Family Social History Coded Allergies: Influenza Virus Vaccines (Verified Allergy, Severe, 10/11/17) Sulfa (Sulfonamide Antibiotics) (Verified Allergy, Severe, Rash, 10/11/17) ibuprofen (Verified Allergy, Severe, 10/11/17) *MDRO Multi-Drug Resistant Organism (Verified Adverse Reaction, Unknown, ) 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 Past Medical History End-stage renal disease on hemodialysis Monday Hypertension Diabetes mellitus Nonischemic cardiomyopathy CHF with ejection fraction 20-25% Hepatitis C Tobacco use. Cocaine abuse Chronic anemia of renal disease Severe tricuspid regurgitation Moderate to severe pulmonary hypertension (65 mmHg) . Past Surgical History Scrotal surgery ORIF finger Left upper extremity fistula 09/14/12 Cardiac catheterization 2012 . Reported Medications Reported Meds & Active Scripts Active Aldactone (Spironolactone) 25 Mg Tab 25 Mg PO DAILY Ceftin (Cefuroxime Axetil) 250 Mg Tab 250 Mg PO BID Metoprolol Tartrate 25 Mg Tab 25 Mg PO BID Nitrostat SL (Nitroglycerin) 0.4 Mg Subl 0.4 Mg SL UNSCH PRN Lisinopril 5 Mg Tab 5 Mg PO DAILY Ventolin Hfa 18 GM Inh (Albuterol Sulfate) 90 Mcg/Act Aer 2 Puff INH Q4-6H PRN Walker Rolling/GetGo (Device) 1 Mis Mis Ea .XX DIRECTED Reported Hydralazine HCl 25 Mg Tablet 25 Mg PO BID Ferrous Sulfate 325 Mg (65 Mg Iron) Tablet 324 Mg PO BIDPC Renvela (Sevelamer Carbonate) 800 Mg Tab 1,600 Mg PO TID Aspirin Adult Low Strength (Aspirin) 81 Mg Tabdr 81 Mg PO DAILY . Current Medications Medications (Trade) Dose Ordered Sig/Crispin Route Start Time Stop Time Status Last Admin (NS Flush) 2 ml UNSCH PRN IVF 10/11/17 15:15 Sodium Chloride 1,000 ml @ 0 mls/hr Q0M PRN OTHER 10/11/17 17:00 (Heparin Inj) 8,000 units UNSCH PRN IV FLUSH 10/11/17 17:00 Sodium Chloride 1,000 ml @ 200 mls/hr Q5H PRN IV 10/11/17 17:00 Sodium Chloride 1,000 ml @ 0 mls/hr Q0M PRN OTHER 10/11/17 17:00 (Mannitol Inj) 12.5 gm UNSCH PRN IV 10/11/17 17:00 Albumin Human 100 ml @ 60 mls/hr UNSCH PRN IV 10/11/17 17:00 (NS Flush) 5 ml UNSCH PRN IV FLUSH 10/11/17 17:00 (Heparin Inj) UNSCH PRN .XX 10/11/17 17:00 (Gentamicin Inj) 20 mg UNSCH PRN OTHER 10/11/17 17:00 (Zofran Inj) 4 mg UNSCH PRN IV PUSH 10/11/17 17:00 (Tylenol) 650 mg UNSCH PRN PO 10/11/17 17:00 (Benadryl) 25 mg UNSCH PRN PO 10/11/17 17:00 (Nitrostat Sl) 0.4 mg UNSCH PRN SL 10/11/17 17:00 (Catapres) 0.1 mg UNSCH PRN PO 10/11/17 17:00 (Epogen Inj) 10,000 units UNSCH PRN IV PUSH 10/11/17 17:00 (Gelfoam 12 Mm/7 Mm Top) 1 foam UNSCH PRN TOP 10/11/17 17:00 (NS Flush) 2 ml UNSCH PRN IV FLUSH 10/11/17 18:00 (NS Flush) 2 ml BID IV FLUSH 10/11/17 21:00 10/11/17 21:22 (Narcan Inj) 0.4 mg UNSCH PRN IV PUSH 10/11/17 18:00 (Milk Of Magnesia Liq) 30 ml Q12H PRN PO 10/11/17 18:00 (Senokot) 17.2 mg Q12H PRN PO 10/11/17 18:00 (Dulcolax Supp) 10 mg DAILY PRN RECTAL 10/11/17 18:00 (Lactulose Liq) 30 ml DAILY PRN PO 10/11/17 18:00 (NovoLOG SUPPLEMENTAL SCALE) 1 ACHS SLIDING SCALE SQ 10/11/17 21:00 (Heparin Inj) 5,000 units Q12HR SQ 10/11/17 21:00 10/11/17 21:22 (Ecotrin Ec) 81 mg DAILY PO 10/12/17 09:00 (Ferrous Sulfate) 325 mg BIDPC PO 10/12/17 09:00 (Apresoline) 25 mg BID PO 10/12/17 00:00 (Prinivil) 5 mg DAILY PO 10/12/17 09:00 (Lopressor) 25 mg BID PO 10/12/17 00:00 10/12/17 01:27 (Renvela) 1,600 mg TID PO 10/12/17 09:00 (Aldactone) 25 mg DAILY PO 10/12/17 09:00 Family History Per prior H&P is both parents mother of end-stage renal disease . Substance Use Tobacco: Smokes a few cigarettes a day. Alcohol: No reported history. Prescription med abuse: No reported history. Illicits: Positive for cocaine abuse on prior drug screens. . Psychosocial History Patient was born in [place] and moved to [place] around 2012. He states he has brothers and sisters and states both of his parents are alive, but review of the EMR reports that they are previously . [facility]. 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 He states he is and does have 2 adult children. . Spiritual/Cultural Factors He is of the Sikhism lexi and would accept hod carrier visits. . Living Will: Never completed Health Care Surrogate: Never completed Durable Power of Door Framer: Never completed Date completed: Healthcare proxy acceptance form signed by Neema Johnston 06/19/2016. Health Care Surrogate(s): No healthcare surrogate form available. . Documented care wishes: No living will available. . Today's verbally stated goals: Patient to agitated today to state advanced directive goals. . Family/friends goals: No family or friends available. . Ethical and Legal Issues Patient reports he is , which would make his , Neema, his legal proxy decision-maker per [place] statutes. Contacts have been attempted and callback is pending. It is unclear at this time whether the patient is actually capacitated versus merely oppositional. Shared decision making would be recommended. . Physical Exam Vital Signs Date Time Temp Pulse Resp B/P (MAP) Pulse Ox O2 Delivery O2 Flow Rate FiO2 10/12/17 07:46 97.9 20 114/60 (78) 10/12/17 07:00 99 10/12/17 07:00 99 10/12/17 03:00 98.8 82 18 109/62 (78) 99 10/11/17 23:20 98.2 89 20 117/77 (90) 97 10/11/17 23:20 10/11/17 21:50 93 18 117/67 (84) 99 Room Air 10/11/17 19:56 98.1 103 20 114/74 (87) 98 Room Air 10/11/17 16:35 99 16 108/63 (78) 99 Room Air 10/11/17 15:17 99 Nasal Cannula 10/11/17 15:17 98.1 108 20 108/63 (78) 100 Nasal Cannula 2.00 10/11/17 15:17 99 Nasal Cannula 2.00 10/11/17 15:12 98.1 108 24 100 Exam CONSTITUTIONAL/GENERAL: This is an adequately nourished patient, agitated and yelling. TUBES/LINES/DRAINS: PIV, BROCK fistula SKIN: No jaundice, rashes, or lesions. No wounds seen anteriorly. Skin temperature appropriate. Not diaphoretic. HEAD: Atraumatic. Normocephalic. EYES: Pupils equal and round and reactive. Extraocular motions intact. No scleral icterus. No injection or drainage. Fundi not examined. ENT: Hearing grossly normal. Nose without bleeding or purulent drainage. Throat without visible erythema, exudates, masses, or lesions. NECK: Trachea midline. Supple, nontender. No palpable thyroid enlargement or nodularity. CARDIOVASCULAR: S1, S2, tachycardic rate, regular rhythm, 2/6 systolic ejection murmur at right sternal border. RESPIRATORY/CHEST: Symmetric, unlabored respirations. Clear to auscultation. Breath sounds equal, diminished bilaterally. No wheezes, rales, or rhonchi. GASTROINTESTINAL: Abdomen soft, non-tender, nondistended. No hepato-splenomegaly , or palpable masses. No guarding. Bowel sounds present. GENITOURINARY: Without palpable bladder distension. MUSCULOSKELETAL: Extremities without clubbing, cyanosis, or edema. No joint tenderness or effusion noted. No calf tenderness. No mottling or clubbing. LYMPHATICS: No palpable cervical or supraclavicular adenopathy. NEUROLOGICAL: Awake and alert. Motor and sensory grossly within normal limits. Follows commands. Moves all extremities. PSYCHIATRIC: Agitated, yelling and cursing at the staff, alternately with closing his eyes and not responding. . Diagnostic Tests Laboratory Laboratory Tests Test 10/11/17 15:15 10/12/17 05:52 White Blood Count 4.6 TH/MM3 (4.0-11.0) 4.5 TH/MM3 (4.0-11.0) Red Blood Count 2.68 MIL/MM3 (4.50-5.90) 2.92 MIL/MM3 (4.50-5.90) Hemoglobin 8.4 GM/DL (13.0-17.0) 9.0 GM/DL (13.0-17.0) Hematocrit 25.4 % (39.0-51.0) 27.6 % (39.0-51.0) Mean Corpuscular Volume 94.5 FL (80.0-100.0) 94.4 FL (80.0-100.0) Mean Corpuscular Hemoglobin 31.4 PG (27.0-34.0) 30.8 PG (27.0-34.0) Mean Corpuscular Hemoglobin Concent 33.2 % (32.0-36.0) 32.6 % (32.0-36.0) Red Cell Distribution Width 18.9 % (11.6-17.2) 18.8 % (11.6-17.2) Platelet Count 145 TH/MM3 (150-450) 151 TH/MM3 (150-450) Mean Platelet Volume 11.1 FL (7.0-11.0) 11.2 FL (7.0-11.0) Neutrophils (%) (Auto) 72.0 % (16.0-70.0) 69.9 % (16.0-70.0) Lymphocytes (%) (Auto) 13.3 % (9.0-44.0) 13.9 % (9.0-44.0) Monocytes (%) (Auto) 11.6 % (0.0-8.0) 13.3 % (0.0-8.0) Eosinophils (%) (Auto) 1.9 % (0.0-4.0) 1.6 % (0.0-4.0) Basophils (%) (Auto) 1.2 % (0.0-2.0) 1.3 % (0.0-2.0) Neutrophils # (Auto) 3.3 TH/MM3 (1.8-7.7) 3.2 TH/MM3 (1.8-7.7) Lymphocytes # (Auto) 0.6 TH/MM3 (1.0-4.8) 0.6 TH/MM3 (1.0-4.8) Monocytes # (Auto) 0.5 TH/MM3 (0-0.9) 0.6 TH/MM3 (0-0.9) Eosinophils # (Auto) 0.1 TH/MM3 (0-0.4) 0.1 TH/MM3 (0-0.4) Basophils # (Auto) 0.1 TH/MM3 (0-0.2) 0.1 TH/MM3 (0-0.2) CBC Comment DIFF FINAL DIFF FINAL Differential Comment Prothrombin Time 10.8 SEC (9.8-11.6) Prothromb Time International Ratio 1.1 RATIO Activated Partial Thromboplast Time 25.5 SEC (24.3-30.1) Blood Urea Nitrogen 41 MG/DL (7-18) 36 MG/DL (7-18) Creatinine 5.61 MG/DL (0.60-1.30) 5.05 MG/DL (0.60-1.30) Random Glucose 94 MG/DL (74-106) 89 MG/DL (74-106) Total Protein 7.5 GM/DL (6.4-8.2) Albumin 3.2 GM/DL (3.4-5.0) Calcium Level 9.1 MG/DL (8.5-10.1) 9.3 MG/DL (8.5-10.1) Alkaline Phosphatase 93 U/L (45-117) Aspartate Amino Transf (AST/SGOT) 33 U/L (15-37) Alanine Aminotransferase (ALT/SGPT) 22 U/L (12-78) Total Bilirubin 0.3 MG/DL (0.2-1.0) Sodium Level 143 MEQ/L (136-145) 141 MEQ/L (136-145) Potassium Level 4.9 MEQ/L (3.5-5.1) 5.1 MEQ/L (3.5-5.1) Chloride Level 107 MEQ/L (98-107) 103 MEQ/L (98-107) Carbon Dioxide Level 27.5 MEQ/L (21.0-32.0) 29.7 MEQ/L (21.0-32.0) Anion Gap 9 MEQ/L (5-15) 8 MEQ/L (5-15) Estimat Glomerular Filtration Rate 13 ML/MIN (>89) 14 ML/MIN (>89) Total Creatine Kinase 82 U/L (39-308) Troponin I 0.11 NG/ML (0.02-0.05) B-Type Natriuretic Peptide 4266 PG/ML (0-100) Result Diagram: 10/12/17 0552 10/12/17 0552 Imaging Last Impressions Chest X-Ray 10/11/17 1508 Signed Impressions: CONCLUSION: 1. Persistent infiltrate with small right effusion slightly improved compared to the prior study. 2. Stable cardiomegaly 3. Mild pulmonary venous congestion. Patient/Family Conference Present at Family Conference: No family available. Attempted to review the below listed items, palliative care purpose and focus, however patient's agitation and yelling made it difficult to complete the conversation. Will need review. . Family Conference Location: Bedside Issues Discussed: * Palliative care role, purpose, approach * Additional medical, psychosocial, and spiritual history * Patients general health, functional status, and cognitive changes in the months leading up to the current hospitalization * Patient/family understanding of the current medical problems * Patient/family understanding of prognosis * Patients goals of care as best understood from advance directives and/or conversations and/or values * Current medical treatment options and benefits/burdens of those options * Likely scenarios comparing ongoing aggressive care with a transition to comfort measures only * Questions answered to the best of my ability * Palliative care contact information provided Assessment and Plan Disease Oriented Problem List: (1) Heart murmur (2) Diabetes mellitus type 2, controlled (3) Cocaine abuse (4) Anxiety (5) ESRD (end stage renal disease) (6) CHF (congestive heart failure) (7) Non-ischemic cardiomyopathy Symptom Scale: (1) Dyspnea (2) Weakness Pertinent Non-Medical Issues Psychosocial:Patient was born in [place] and moved to [place] around 2012. He states he has brothers and sisters and states both of his parents are alive, but review of the EMR reports that they are previously . [facility]. 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 He states he is and does have 2 adult children. Spiritual: He is of the Sikhism lexi and would accept hod carrier visits. Legal: No legal issues identified. Ethical issues impacting care: None noted. . Important Contacts : Neema Bloom . Prognosis His prognosis is guarded. He is a frequent crack cocaine user and has a history of hepatitis C. He has had multiple hospital admissions related to noncompliance with medical therapy and drug abuse. He has end-stage renal disease on hemodialysis with which he is relatively noncompliant, nonischemic cardiomyopathy with an ejection fraction of 20-25%, severe tricuspid regurgitation, moderate to severe pulmonary hypertension, several episodes of PEA/cardiac arrest and is not a candidate for defibrillator due to his chronic noncompliance. His echocardiogram over time has shown a steady decline and will likely continue in that pattern given patient's noncompliance with medical therapy. He has had multiple episodes of respiratory failure as well as a previous CVA. He has multiple organs affected to include heart, lungs, brain, kidneys and liver. His status is fragile and he could decompensate easily. He is at high risk for continued complications and decline. . Code Status: Full Code (By default, pending contact with his .) Plan PLAN: Legal decision maker: At this time the patient's capacity to make his own decisions is somewhat questionable due to his erratic and agitated behavior. Per [place] statutes, as he states he is , his would be the proxy decision-maker if he were to be judged incapacitated. At this time shared decision making is recommended. Patient is reported to have 2 children, a son and a daughter, who live in [place] who would be the next level decision-maker per [place] statutes. Goals: To be determined CODE STATUS: FULL CODE, by default pending contact with his , or determination of his capacity. SYMPTOMS: * Dyspnea: Multifactorial to include recurrent/chronic right pleural effusion, nonischemic cardiomyopathy with EF 20-25% and both systolic and diastolic heart failure, fluid volume excess related to noncompliance with hemodialysis. He is undergoing dialysis for the third day in a row to reduce fluid to improve his breathing. This is likely to be recurrent due to the patient's noncompliance. * Weakness: Likely multifactorial to include decreased cardiac function and fluid volume excess. May benefit from physical therapy once volume status is stable. SUMMARY This is a 61-year-old -Turkmen male with frequent admissions to the hospital for emergent dialysis, secondary to noncompliance with medical therapy. He has compromise in multiple organ systems and has had cardiac arrest and respiratory failure in the past. He is at elevated risk for recurrent organ compromise/failure, recurrent complications and hospitalizations. He would be hospice appropriate if goals were consistent. Palliative care will continue to follow the patient during hospital course as condition evolves, to assist patient/decision-maker with understanding of their medical conditions, weighing benefits/burdens of treatment options, for clarification of goals of treatment. Additionally will assist with any symptoms of palliative concern. . Thank you for the opportunity to participate in the care of Mr. Bloom. Attestation To help prompt me to consider important information that might be impacting today's encounter and assessment, information from prior notes written by myself or my colleagues may have been "brought forward" into today's note. My signature on this note, however, is an attestation that I personally performed the exam, history, and/or decision-making noted today, and, unless otherwise indicated, the interactions with patient, family, and staff as well as the review of records all occurred today. I also attest that the listed assessment and stated plan reflect my best clinical judgment today based on the combination of historical information, prior notes, and today's exam/ interactions. When time spent is documented, it refers only to time spent today by the signer, or if indicated, combined time spent today by collaborating physician/nurse practitioner. . Michelle Waters October 12, 2017 12:38
[2017-10-12] MEDS: SODIUM CHLORIDE 0.9% FLUSH 10 ML FLUSH IV FLUSH SCH ×2 (13:04→21:30)
[2017-10-12] MEDS: ASPIRIN EC 81 MG TABEC PO SCH (13:05)
[2017-10-12] MEDS: FERROUS SULFATE 325 MG (65 MG ELEMENTAL IRON) TAB PO SCH ×2 (13:05→18:10)
[2017-10-12] MEDS: SPIRONOLACTONE 25 MG TAB PO SCH (13:05)
[2017-10-12] MEDS: HEPARIN SODIUM - SQ 10,000 UNITS/ML VIAL SQ SCH ×2 (13:08→21:30)
--- NOTE | 2017-10-12 16:08 | HHI.PR ---
Subjective Remarks patient awake and alert no acute distress got hemodialysis today does not want to be bothered states he is not in pain Objective Vitals Vital Signs Date Time Temp Pulse Resp B/P (MAP) Pulse Ox O2 Delivery O2 Flow Rate FiO2 10/12/17 14:00 104 10/12/17 13:00 102 10/12/17 12:45 98.3 107 24 120/80 (93) 96 10/12/17 12:00 104 10/12/17 11:00 95 10/12/17 10:00 98 10/12/17 09:00 98 10/12/17 08:00 100 10/12/17 07:46 97.9 20 114/60 (78) 10/12/17 07:00 99 10/12/17 07:00 99 10/12/17 03:00 98.8 82 18 109/62 (78) 99 10/11/17 23:20 98.2 89 20 117/77 (90) 97 10/11/17 23:20 10/11/17 21:50 93 18 117/67 (84) 99 Room Air 10/11/17 19:56 98.1 103 20 114/74 (87) 98 Room Air 10/11/17 16:35 99 16 108/63 (78) 99 Room Air I/O 10/11/17 10/11/17 10/11/17 10/12/17 10/12/17 10/12/17 07:00 15:00 23:00 07:00 15:00 23:00 Intake Total 480 ml Output Total 3000 ml 3000 ml Balance -3000 ml 480 ml -3000 ml Intake Oral 480 ml Output Hemodialysis 3000 ml 3000 ml # Voids 1 # Bowel Movements 1 Result Diagram: 10/12/17 0552 10/12/17 0552 Imaging Last Impressions Chest X-Ray 10/11/17 1508 Signed Impressions: CONCLUSION: 1. Persistent infiltrate with small right effusion slightly improved compared to the prior study. 2. Stable cardiomegaly 3. Mild pulmonary venous congestion. Objective Remarks awake and alert, speech clear refused to be examined A/P Assessment and Plan 61 years old male //Acute on chronic systolic and diastolic CHF exacerbation- Improved - no acute distress = Recent echocardiogram in August 2017 with LVEF 2025%, severe pulmonary hypertension, valvular insufficiencies. = Chest x-ray as above with effusion, pulmonary vascular congestion -BNP 4266, chest x-ray not significantly changed from previous chest x-ray performed for CHF exacerbation. = Secondary to fluid overload, ESRD = Oxygen as needed. Hemodialysis for fluid removal. Discussed with dialysis tach, planning to remove 3 L. Appreciate nephrology assistance. //ESRD on hemodialysis Monday = Nephrology ff //Recent admission, with possible pneumonia. This appears to be improving on chest x-ray. Effusion is likely secondary to fluid overload. No signs of infection. No need for continuing antibiotics. //Suspect chronic dementia versus delirium- awake and alert but angry No acute neurologic abnormalities, however patient is disoriented to year and month. This could be secondary to ESRD, fluid overload, however suspect chronic dementia. = No family at bedside. //History of noncompliance ED reports that family and patient are asking about hospice. We will consult palliative care to discuss options going forward with patient and family. //Diabetes mellitus. Chronic. Insulin sliding scale and diabetic diet //Hypertension. Continue home blood pressure medications as appropriate. //Cocaine abuse. counselled briefly- I dont want to talk" //Anemia of chronic renal disease. Hemoglobin 8.4. No signs of bleeding. Continue to monitor. CM consult for DC planning PT eval and treat Kate Holland MD October 12, 2017 16:08
[2017-10-13] VITALS (13 sets, daily range): BP systolic 107–111; BP diastolic 64–79; PULSE 79–104; RESP 18–20; TEMP 97.8–98.4; O2SAT 97–100
[2017-10-13] MEDS: INSULIN ASPART SUPPLEMENTAL SCALE SQ SCH (08:00)
--- NOTE | 2017-10-13 08:27 | EKG ---
Date Performed: 10/11/2017 Time Performed: 15:14:56 PTAGE: 61 years EKG: SINUS TACHYCARDIA WITH OCCASIONAL SUPRAVENTRICULAR PREMATURE COMPLEXES SEPTAL MYOCARDIAL IN FARCTION MODERATE T-WAVE ABNORMALITY, CONSIDER LATERAL ISCHEMIA ABNORMAL ECG NO PREVIOUS TRACING DOCTOR: Salo Jones Interpretating Date/Time 10/13/2017 08:18:00
[2017-10-13] MEDS: LISINOPRIL 5 MG TAB PO SCH (09:00)
[2017-10-13] MEDS: METOPROLOL TARTRATE 25 MG TAB PO SCH (09:00)
[2017-10-13] MEDS: hydrALAZINE HCL 25 MG TAB PO SCH (09:00)
[2017-10-13] MEDS: SEVELAMER CARBONATE 800 MG TAB PO SCH (09:35)
[2017-10-13] MEDS: SODIUM CHLORIDE 0.9% FLUSH 10 ML FLUSH IV FLUSH SCH (09:35)
[2017-10-13] MEDS: FERROUS SULFATE 325 MG (65 MG ELEMENTAL IRON) TAB PO SCH (09:35)
[2017-10-13] MEDS: ASPIRIN EC 81 MG TABEC PO SCH (09:37)
[2017-10-13] MEDS: HEPARIN SODIUM - SQ 10,000 UNITS/ML VIAL SQ SCH (09:37)
[2017-10-13] MEDS: SPIRONOLACTONE 25 MG TAB PO SCH (09:39)
--- NOTE | 2017-10-13 10:32 | HHI.PR ---
Subjective Remarks , very interactive no complains seen with has HD T/TH/S at [facility] confirms that he can be hard headed and would refused to take meds - Objective Vitals Vital Signs Date Time Temp Pulse Resp B/P (MAP) Pulse Ox O2 Delivery O2 Flow Rate FiO2 10/13/17 09:45 107/79 (88) 10/13/17 07:00 97.8 96 18 107/64 (78) 10/13/17 06:15 101 10/13/17 05:00 90 10/13/17 04:09 98.4 79 20 111/64 (80) 97 10/13/17 04:00 86 10/13/17 03:00 94 10/13/17 01:00 86 10/13/17 00:00 100 10/12/17 23:47 98.1 102 18 116/75 (89) 99 10/12/17 23:00 98 10/12/17 22:00 104 10/12/17 21:00 98.0 103 22 107/68 (81) 98 10/12/17 21:00 106 10/12/17 20:00 103 10/12/17 19:00 103 10/12/17 18:00 106 10/12/17 17:00 104 10/12/17 16:00 102 10/12/17 15:00 107 10/12/17 14:00 104 10/12/17 13:00 102 10/12/17 12:45 98.3 107 24 120/80 (93) 96 10/12/17 12:00 104 10/12/17 11:00 95 I/O 10/12/17 10/12/17 10/12/17 10/13/17 10/13/17 10/13/17 07:00 15:00 23:00 07:00 15:00 23:00 Intake Total 480 ml 300 ml 360 ml Output Total 3000 ml Balance 480 ml -3000 ml 300 ml 360 ml Intake Oral 480 ml 300 ml 360 ml Output Hemodialysis 3000 ml # Voids 1 2 # Bowel Movements 1 Result Diagram: 10/12/17 0552 10/12/17 0552 Imaging Last Impressions Chest X-Ray 10/11/17 1508 Signed Impressions: CONCLUSION: 1. Persistent infiltrate with small right effusion slightly improved compared to the prior study. 2. Stable cardiomegaly 3. Mild pulmonary venous congestion. Objective Remarks awake and alert, speech clear, cooperative anicteric lungs- no rales regular rhythm abdomen soft, nontender extremiteis no edema A/P Assessment and Plan 61 years old male //Acute on chronic systolic and diastolic CHF exacerbation- Improved - no acute distress- clinically not in failure = Recent echocardiogram in August 2017 with LVEF 2025%, severe pulmonary hypertension, valvular insufficiencies. = Chest x-ray as above with effusion, pulmonary vascular congestion -BNP 4266, chest x-ray not significantly changed from previous chest x-ray performed for CHF exacerbation. = Secondary to fluid overload, ESRD =advised compliance //ESRD on hemodialysis Monday = Nephrology ff //Recent admission, with possible pneumonia. This appears to be improving on chest x-ray. Effusion is likely secondary to fluid overload. No signs of infection. No need for continuing antibiotics. //Suspect chronic dementia versus delirium- awake and alert but angry No acute neurologic abnormalities, however patient is disoriented to year and month. This could be secondary to ESRD, fluid overload, however suspect chronic dementia. = No family at bedside. //History of noncompliance ED reports that family and patient are asking about hospice. We will consult palliative care to discuss options going forward with patient and family. //Diabetes mellitus. Chronic. Insulin sliding scale and diabetic diet //Hypertension. Continue home blood pressure medications as appropriate. //Cocaine abuse. counselled briefly- I dont want to talk" //Anemia of chronic renal disease. Hemoglobin 8.4. No signs of bleeding. Continue to monitor. CM consult for DC planning PT eval and treat DC today [facility] ffup with rona Izaguirre- nephrology Kate Holland MD October 13, 2017 10:32
--- NOTE | 2017-10-13 11:12 | HHI.NPPN ---
Subjective General Problems: Anemia Renal Failure: End Stage Renal Disease History of Present Illness Patient is a 61 year old male with a past medical history of hypertension, diabetes, hx of cocaine use and hepatitits C, congestive heart failure with EF of 25-30%, hx of bradycardia and PEA arrest, and end stage renal disease on hemodialysis Monday, , and Monday. Presented to emergency room with worsening shortness of breath. Nephrology is consulted for management of end stage renal disease. Last dialysis was on yesterday. Additional Remarks Resting comfortably with no complaints. Anxious to be discharged. (Skylar Paulino) Review of Systems Respiratory Respiratory Remarks Denies shortness of breath (Skylar Paulino) Cardiovascular Cardiac Remarks Denies chest pain (Skylar Paulino) Gastrointestinal GI Remarks Denies abdominal pain (Skylar Paulino) Objective Data Data Vital Signs Date Time Temp Pulse Resp B/P (MAP) Pulse Ox O2 Delivery O2 Flow Rate FiO2 10/13/17 09:45 107/79 (88) 10/13/17 07:00 96 10/13/17 07:00 97.8 96 18 107/64 (78) 10/13/17 06:15 101 10/13/17 05:00 90 10/13/17 04:09 98.4 79 20 111/64 (80) 97 10/13/17 04:00 86 10/13/17 03:00 94 10/13/17 01:00 86 10/13/17 00:00 100 10/12/17 23:47 98.1 102 18 116/75 (89) 99 10/12/17 23:00 98 10/12/17 22:00 104 10/12/17 21:00 98.0 103 22 107/68 (81) 98 10/12/17 21:00 106 10/12/17 20:00 103 10/12/17 19:00 103 10/12/17 18:00 106 10/12/17 17:00 104 10/12/17 16:00 102 10/12/17 15:00 107 10/12/17 14:00 104 10/12/17 13:00 102 10/12/17 12:45 98.3 107 24 120/80 (93) 96 10/12/17 12:00 104 (Skylar Paulino) -: 10/12/17 0552 10/12/17 0552 Imaging Last Impressions Chest X-Ray 10/11/17 1508 Signed Impressions: CONCLUSION: 1. Persistent infiltrate with small right effusion slightly improved compared to the prior study. 2. Stable cardiomegaly 3. Mild pulmonary venous congestion. (Skylar Paulino) Physical Exam General Appearance: No Acute Distress, Comfortable (Skylar Paulino) Neck Neck Remarks Negative JVD (Skylar Paulino) Pulmonary Resp Exam: Breath Sounds Equal, No Distress, Diminished Breath Sounds (Skylar Paulino) Cardiology CV Exam: Regular (Skylar Paulino) Gastrointestinal/Abdomen GI Exam: Soft, Non-Tender, Bowel Sounds Present (Skylar Paulino) Integumentary Skin Exam: Clear, Warm (Skylar Paulino) Extremeties Extremities Exam: No Edema (Skylar Paulino) Neurologic Neuro Exam: Alert, Oriented (Skylar Paulino) Psychiatric Psych Exam: Appropriate Responses (Skylar Paulino) Assessment/Plan Problem List: (1) ESRD on dialysis ICD Codes: N18.6 - End stage renal failure on dialysis; Z99.2 - Dependence on renal dialysis Status: Chronic Plan: Hemodialysis Monday/ / Monday Fluid restriction 1000 ml per day Epogen with dialysis Avoid fluid administration Hemodialysis yesterday UF of 3 liters Plans for discharge today medication and dialysis compliance reviewed and encouraged. (2) Anemia ICD Codes: D64.9 - Anemia, unspecified Status: Acute Plan: Epogen with dialysis (3) Hypertension ICD Codes: I10 - Hypertension Status: Chronic Plan: Well controlled (4) CHF exacerbation ICD Codes: I50.9 - Heart failure, unspecified Status: Acute Plan: Breathing much easier on RA. Dialysis yesterday and today. (Skylar Paulino) Problem List: (1) ESRD on dialysis ICD Codes: N18.6 - End stage renal failure on dialysis; Z99.2 - Dependence on renal dialysis Status: Chronic Plan: Hemodialysis Monday/ / Monday Fluid restriction 1000 ml per day Epogen with dialysis Avoid fluid administration Hemodialysis yesterday UF of 3 liters Plans for discharge today medication and dialysis compliance reviewed and encouraged. Patient for discharge, to continue HD as out patient. (2) Anemia ICD Codes: D64.9 - Anemia, unspecified Status: Acute Plan: Epogen with dialysis (3) Hypertension ICD Codes: I10 - Hypertension Status: Chronic Plan: Well controlled (4) CHF exacerbation ICD Codes: I50.9 - Heart failure, unspecified Status: Acute Plan: Breathing much easier on RA. Dialysis yesterday and today. (Severo Peck MD) Skylar Paulino October 13, 2017 11:12 Severo Peck MD October 14, 2017 00:00
== END 2017-10-13 11:47 | disposition home or self-care (01) | DRG 291 ==
LOC: NEPE 15:00 → NEDA 17:50 → NEDH 22:22 → HCIS 23:10
PROVIDERS: ADMIT Internal Medicine; ATTEND Internal Medicine
PROC: 5A1D70Z Performance of Urinary Filtration, Intermittent, Less than 6 Hours Per Day (ICD-10-PCS; principal; 2017-10-11)
DX: I13.2 Hypertensive heart and chronic kidney disease with heart failure and with stage 5 chronic kidney disease, or end stage renal disease (principal); I50.43 Acute on chronic combined systolic (congestive) and diastolic (congestive) heart failure; N18.6 End stage renal disease; F03.90 Unspecified dementia, unspecified severity, without behavioral disturbance, psychotic disturbance, mood disturbance, and anxiety; E11.22 Type 2 diabetes mellitus with diabetic chronic kidney disease; F17.210 Nicotine dependence, cigarettes, uncomplicated; R01.1 Cardiac murmur, unspecified; B19.20 Unspecified viral hepatitis C without hepatic coma; I27.20 Pulmonary hypertension, unspecified; D63.1 Anemia in chronic kidney disease; F41.9 Anxiety disorder, unspecified; I42.9 Cardiomyopathy, unspecified; F14.10 Cocaine abuse, uncomplicated; Z88.8 Allergy status to other drugs, medicaments and biological substances; Z88.7 Allergy status to serum and vaccine; Z88.2 Allergy status to sulfonamides; Z99.2 Dependence on renal dialysis
CPT/HCPCS: 71045; 80048; 80053; 82550; 82948; 83880; 84484; 85025; 85610; 85730; 90935; 93005; 96374; J1644; Q4081

== ENCOUNTER 2017-11-28 14:28 | Inpatient (IN) ==
--- NOTE | 2017-11-28 14:49 | ED ---
HPI General Chief Complaint: Respiratory Symptoms Stated Complaint: medical/Evac Time Seen by Provider: 11/28/17 14:40 Source: patient Mode of arrival: EMS Limitations: no limitations History of Present Illness 62-year-old male complains of shortness of breath. Patient states that he started having shortness of breath since yesterday. Patient states that the shortness of breath is worse today. Patient has history of end-stage renal disease on dialysis. Patient has dialysis Monday and Monday. Patient states that he is due for dialysis today. Patient's dietary assistant Dr. CHAMBERS. Patient denies any headache. Patient denies any chest pain. Patient denies any coughing congestion fever chills. Patient denies abdominal pain. Patient denies any nausea vomiting diarrhea. MD Complaint: shortness of breath Onset (ago): day(s) Severity: severe Consistency/Duration: constant Relieving factors: nothing Exacerbating factors: nothing Known history of: other Associated symptoms: denies other symptoms Treatment prior to arrival: oxygen Related Data Home oxygen amount: none Home Medications Medication Instructions Recorded Confirmed Unable to Obtain Home Meds 11/28/17 11/28/17 Allergies Allergy/AdvReac Type Severity Reaction Status Date / Time ibuprofen Allergy Severe Swelling Verified 11/28/17 14:36 Influenza Virus Vaccines Allergy Severe Swelling Verified 11/28/17 14:36 Sulfa (Sulfonamide Allergy Severe Rash Verified 11/28/17 14:36 Antibiotics) Review of Systems Except as stated in HPI: all other systems reviewed are negative PMFSH History History 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 Medical History Medical History CHF (congestive heart failure) (Acute) Diabetes (Acute) ESRD on dialysis (Acute) HBP (high blood pressure) (Acute) Hepatitis C (Acute) Social History Social History Second Hand Smoke Exposure: Yes Smoking Status: Current every day smoker Tobacco Type: Cigarettes How Often Do You Have a Drink Containing Alcohol: 4 or more times a week Recent Travel in [facility] within the Last 8 Weeks: No Recent Out of Country Travel within the Last 8 Weeks: No Exam Narrative Exam Narrative: GENERAL: Well-nourished, well-developed patient. SKIN: Focused skin assessment warm/dry. HEAD: Normocephalic. EYES: No scleral icterus. No injection or drainage. NECK: Supple, trachea midline. No JVD or lymphadenopathy. CARDIOVASCULAR: Regular rate and rhythm without murmurs, gallops, or rubs. RESPIRATORY: Patient has diminished breath sounds bilaterally. Few rhonchi at the bases. GASTROINTESTINAL: Abdomen soft, non-tender, nondistended. MUSCULOSKELETAL: No cyanosis, or edema. BACK: Nontender without obvious deformity. No CVA tenderness. Neurologic exam normal. Course Initial Documented Vital Signs Temperature 97.9 F 11/28/17 14:35 Pulse Rate 100 H 11/28/17 14:35 Respiratory Rate 28 H 11/28/17 14:35 Blood Pressure 135/67 11/28/17 14:35 Pulse Oximetry 100 11/28/17 14:35 Last Documented Vital Signs Temperature 97.9 F 11/28/17 14:35 Pulse Rate 108 H 11/28/17 15:12 Respiratory Rate 17 11/28/17 15:12 Blood Pressure 135/67 11/28/17 14:35 Pulse Oximetry 100 11/28/17 15:12 Medical Decision Making MDM Narrative Medical decision making narrative: 62-year-old male with shortness of breath. Patient had progressive shortness of breath since yesterday. History of end- stage renal disease on dialysis. Patient has not had dialysis today. Differential Diagnosis Differential Diagnosis: Differential diagnosis including fluid overload, bronchitis, pneumonia, PE, pneumothorax. Lab Data Lab results reviewed: Yes I reviewed the patient's lab results. Result diagrams: 11/28/17 14:00 11/28/17 14:00 Lab Results 11/28/17 11/28/17 Range/Units 14:00 14:00 WBC 5.7 (4.0-11.0) th/mm3 RBC 3.54 L (4.50-5.90) mil/mm3 Hgb 11.4 L (13.0-17.0) gm/dL Hct 35.8 L (39.0-51.0) % MCV 101.2 H (80.0-100.0) fL MCH 32.3 (27.0-34.0) pg MCHC 31.9 L (32.0-36.0) % RDW 19.0 H (11.6-17.2) % Plt Count 184 (150-450) th/mm3 MPV 10.8 (7.0-11.0) fL Neut % (Auto) 77.3 H (16.0-70.0) % Lymph % (Auto) 9.3 (9.0-44.0) % [place] % (Auto) 12.2 H (0.0-8.0) % Eos % (Auto) 0.2 (0.0-4.0) % Baso % (Auto) 1.0 (0.0-2.0) % Neut # (Auto) 4.4 (1.8-7.7) th/mm3 Lymph # (Auto) 0.5 L (1.0-4.8) th/mm3 [place] # (Auto) 0.7 (0.0-0.9) th/mm3 Eos # (Auto) 0.0 (0.0-0.4) th/mm3 Baso # (Auto) 0.1 (0.0-0.2) th/mm3 WBC Differential . Differential Comment Auto diff final Sodium 138 (136-145) meq/L Potassium 6.3 H (3.5-5.1) meq/L Chloride 104 (98-107) meq/L Carbon Dioxide 19.1 L (21.0-32.0) meq/L Anion Gap 15 (5-15) meq/L BUN 64 H (7-18) mg/dL Creatinine 9.21 H (0.60-1.30) mg/dL Estimated GFR 7 L (>89) mL/min Random Glucose 86 (74-106) mg/dL Calcium 9.5 (8.5-10.1) mg/dL Magnesium 2.3 (1.5-2.5) mg/dL Total Bilirubin 0.6 (0.2-1.0) mg/dL AST 33 (15-37) U/L ALT 25 (12-78) U/L Alkaline Phosphatase 74 (45-117) U/L Troponin I 0.19 H (0.02-0.05) ng/mL Total Protein 7.9 (6.4-8.2) g/dL Albumin 3.5 (3.4-5.0) g/dL Imaging Data Attestation: I personally reviewed and interpreted this imaging study as follows : Radiologist's impression: ITS Impressions Chest X-Ray 11/28/17 14:37 CONCLUSION: Radiographic pattern suggesting intra-alveolar pulmonary edema. Discharge Plan Discharge Disposition Patient Disposition: 30 Still Patient Discharge Details Diagnosis: Pulmonary edema, Acute hyperkalemia, ESRD (end stage renal disease) on dialysis Physicians Team ED Provider: Enrrique Pandya Primary Care Provider: [facility],Physician 's Rxs /Orders / Referrals /Forms Prescriptions: No Action Unable to Obtain Home Meds RF: 0 Discharge Interventions Interventions: Vital Signs Last Done: 11/28/17 15:12 Status ED Status: With Doctor
[2017-11-28 15:27] LABS: Baso # (Auto) 0.1 th/mm3 (0.0-0.2); Eos % (Auto) 0.2 % (0.0-4.0); Hematocrit 35.8 % (39.0-51.0); Hemoglobin 11.4 gm/dL (13.0-17.0); Lymph # (Auto) 0.5 th/mm3 (1.0-4.8); Lymph % (Auto) 9.3 % (9.0-44.0); Mean Corpuscular HGB Conc 31.9 % (32.0-36.0); Mean Corpuscular Hemoglobin 32.3 pg (27.0-34.0); Mean Corpuscular Volume 101.2 fL (80.0-100.0); Mean Platelet Volume 10.8 fL (7.0-11.0); Mono # (Auto) 0.7 th/mm3 (0.0-0.9); Mono % (Auto) 12.2 % (0.0-8.0); Neut # (Auto) 4.4 th/mm3 (1.8-7.7); Neut % (Auto) 77.3 % (16.0-70.0); Platelet Count 184 th/mm3 (150-450); Red Blood Count 3.54 mil/mm3 (4.50-5.90); White Blood Count 5.7 th/mm3 (4.0-11.0)
--- NOTE | 2017-11-28 15:27 | XR ---
EXAM DATE: 11/28/2017 3:02 PM EDT AGE/SEX: 62 years / Male INDICATIONS: Short of breath. CLINICAL DATA: This is the patient's initial encounter. Patient reports that signs and symptoms have been present for 1 day and indicates a pain score of Nonresponsive. MEDICAL/SURGICAL HISTORY: Non-responsive. Non-responsive. COMPARISON: [facility] [place], [place]/11/[place]. . FINDINGS: A single portable frontal view the chest show small bilateral pleural effusions and bibasilar intralo bular opacities. Heart is mildly enlarged. Pulmonary vascular engorgement noted. CONCLUSION: Radiographic pattern suggesting intra-alveolar pulmonary edema. Electronically signed by: Earnest Gould MD 11/28/2017 3:25 PM EDT
[2017-11-28 15:36] LABS: Albumin 3.5 g/dL (3.4-5.0); Anion Gap 15 meq/L (5-15); Aspartate Aminotransferase 33 U/L (15-37); Blood Urea Nitrogen 64 mg/dL (7-18); Calcium 9.5 mg/dL (8.5-10.1); Carbon Dioxide 19.1 meq/L (21.0-32.0); Chloride 104 meq/L (98-107); Glomerular Filtration Rate 7 mL/min (>89); Glucose,Random 86 mg/dL (74-106); Magnesium 2.3 mg/dL (1.5-2.5); Potassium 6.3 meq/L (3.5-5.1); Sodium 138 meq/L (136-145)
[2017-11-28 15:42] LABS: Alanine Aminotransferase 25 U/L (12-78); Alkaline Phosphatase 74 U/L (45-117); Total Protein 7.9 g/dL (6.4-8.2); Troponin I 0.19 ng/mL (0.02-0.05)
[2017-11-28] MEDS ORDERED: Calcium Gluconate Inj 1 GM in Dextrose 5% in Water Inj 100 ML IV.SIG ONE ×2 (16:10)
[2017-11-28] MEDS ORDERED: Sodium Bicarbonate 8.4% Inj 50 MEQ/50 ML Syringe IV.PUSH ONE (16:10)
[2017-11-28] MEDS ORDERED: Dextrose 50% in Water 50 ML Vial IV.PUSH ONE (16:10)
[2017-11-28] MEDS ORDERED: Albumin Human 25% Inj 100 ML IV.SIG PRN ×2 (16:37→17:18)
[2017-11-28] MEDS ORDERED: Sod Chloride 0.9% Inj 1,000 ML IV.CONT PRN ×2 (16:37→17:18)
[2017-11-28] MEDS ORDERED: Gelatin 12 MM/7 MM Topical Foam TOPICAL PRN ×2 (16:37→17:18)
[2017-11-28] MEDS ORDERED: Heparin 10,000 UNITS/10 ML Vial (for IV use) IV.FLUSH PRN ×2 (16:37→17:18)
[2017-11-28] MEDS ORDERED: Acetaminophen 325 MG Tablet PO PRN ×2 (16:37→17:18)
[2017-11-28] MEDS ORDERED: Sod Chloride 0.9% Inj 1,000 ML OTHER PRN ×4 (16:37→17:18)
[2017-11-28] MEDS ORDERED: Heparin 10,000 UNITS/10 ML Vial (for IV use) OTHER PRN ×2 (16:37→17:18)
[2017-11-28] MEDS ORDERED: Calcium Chloride Inj 1 GM in Dextrose 5% in Water Inj 100 ML IV.SIG ONE ×2 (16:44)
[2017-11-28] MEDS ORDERED: Bisacodyl 10 MG Supp RECTAL PRN (17:31)
--- NOTE | 2017-11-28 17:37 | MB ---
cc: Braber Peck MD, Abdul Q MD DATE: 11/28/2017 REASON FOR CONSULTATION: End-stage renal disease, on hemodialysis, came with shortness of breath and hyperkalemia. HISTORY OF PRESENT ILLNESS: This is a 62 year-old male known to me from before with history of hypertension, ischemic heart disease, congestive heart failure, history of pleural effusion, recurrent fluid overload status, history of noncompliance with fluid intake and diet and end-stage renal disease on hemodialysis 3 times per week who came to the hospital complaining of worsening shortness of breath. The patient has been on hemodialysis Monday, and Monday. He was supposed to go for dialysis today and came to the hospital because of his shortness of breath. His breathing was getting worse. The patient is put on BiPAP here and he was found to have high potassium. He was given some medical treatment for the high potassium. Now, he is on hemodialysis. The patient is quite sleepy and lethargic. He is not able to give much history. Most of the history was taken from the patient's chart. He did not have any chest pain. He has this worsening shortness of breath associated with mild dry cough. There is no known history of fever. PAST MEDICAL HISTORY: Hypertension, ischemic heart disease, congestive heart failure, chronic anemia, chronic obstructive pulmonary disease, history of recurrent pleural effusion, end-stage renal disease on hemodialysis, history of noncompliance. PAST SURGICAL HISTORY: Recurrent thoracentesis, AV fistula surgery. REVIEW OF SYSTEMS: Limited, since he is not answering most of the questions. He has worsening shortness of breath associated with dry cough. There is no chest pain. No palpitation. No nausea, vomiting. No abdominal pain. SOCIAL HISTORY: The patient is . He has a bit of smoking and drinking alcohol 4 times a week or more. He also has a history of using recreational drugs. FAMILY HISTORY: Noncontributory. ALLERGIES: ALLERGIC TO IBUPROFEN, SULFA DRUGS. MEDICATIONS: Currently, he is on Tylenol. He received calcium chloride, Benadryl. PHYSICAL EXAMINATION: GENERAL: The patient is quite sleepy, lethargic. He is currently on hemodialysis. VITAL SIGNS: Last blood pressure is 135/67, temperature is 97.9, oxygen saturation is 100% on nonrebreather mask. HEENT: Pupils are mid constricted. Nonicteric sclerae. Conjunctivae pale. NECK: Supple. JVD is elevated. LUNGS: The patient has bilateral decreased air entry with basal rales and scattered wheezing. HEART: S1, S2. Regular rhythm. ABDOMEN: Distended, soft, lax. There is no definite tenderness. Bowel sounds positive. EXTREMITIES: He has mild edema in the legs. LABORATORY DATA: WBC count is 5.7, hemoglobin 11.4, platelet count of 184. Sodium is 138, potassium 6.3, chloride 104, bicarbonate 19.1, BUN 64, creatinine 9.2, calcium is 9.5, magnesium 2.3. Troponin I is 0.19, albumin is 3.5. IMAGING STUDIES: The patient had a chest x-ray done, which shows that he has increased vascular marking and pulmonary edema. ASSESSMENT AND PLAN: 1. Fluid overload status and pulmonary edema. 2. Hyperkalemia. 3. End-stage renal disease on hemodialysis. 4. Hypertension. 5. Anemia. 6. History of noncompliance. The patient has a known history of noncompliance with medications, diet and hemodialysis. He has fluid overload and has hyperkalemia. The patient is now on dialysis. We will remove more fluid as tolerated. Give Epogen with the dialysis. His troponin was slightly elevated and this needs to be followed up. Patient is admitted for observation. Thank you for the consultation. I will follow the patient while he is in the hospital. MD COLEMAN Nascimento/ , 05:19 PM , 05:36 PM
--- NOTE | 2017-11-28 17:40 | ECG ---
Date Performed: 11/28/2017 Time Performed: 14:34:05 PTAGE: 62 years EKG: SINUS TACHYCARDIA ANTEROSEPTAL MYOCARDIAL INFARCTION ABNORMAL ECG No significant change fro m prior EKG although I suspected V6 on prior EKG was inadequately placed. PREVIOUS TRACING : 10/11/2017 15.14 DOCTOR: Yaya Yo Interpretating Date/Time 11/28/2017 17:38:02
[2017-11-28] MEDS: Senna/Docusate Sodium 8.6/50 MG Tablet PO SCH (22:19)
--- NOTE | 2017-11-29 04:39 | P.HP ---
History of Present Illness Service: [facility] Primary Care Physician: [facility] Chief Complaint: SOB History of Present Illness: 62-year-old male with a past medical history significant for end-stage renal disease on dialysis, CHF, cocaine abuse, diabetes mellitus, hypertension, hepatitis C, CAD and COPD presents to the emergency department for evaluation of shortness of breath. The patient is typically dialyzed on Monday, , Monday. He was supposed to go for dialysis yesterday but came to the hospital instead because of his increasing shortness of breath. The patient is an extremely poor historian. He is seen after dialysis and reports his shortness of breath has resolved. He has no complaints at this time aside from insomnia. He denies any chest pain. No abdominal pain. No nausea/vomiting/ diarrhea. No fevers/chills. No lateralizing signs/symptoms. Inpatient Certification: I certify that the inpatient services were ordered in accordance with Medicare regulations governing the order. This includes certification that hospital inpatient services are reasonable and necessary and in the case of services not specified as inpatient-only under 42 CFR 419.22(n), that they are appropriately provided as inpatient services in accordance to with the 2-midnight benchmark under 43 CFR 412.3(e) Estimated Total Length of Stay (Days): 2 Plans for Post Hospital Care: Other Review of Systems All other systems reviewed negative except as stated in HPI PMFSH - History History 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 - Medical History Medical History: Medical History (Last Reviewed 11/28/17 @ 14:45 by Enrrique Pandya MD) Arteriovenous fistula for hemodialysis in place, primary CHF (congestive heart failure) Cocaine abuse Diabetes ESRD on dialysis HBP (high blood pressure) Hepatitis C - Tobacco History Second Hand Smoke Exposure: Yes Tobacco Use In Past 30 Days: Yes Smoking Status: Current every day smoker Tobacco Type: Cigarettes - Alcohol History How Often Do You Have a Drink Containing Alcohol: 4 or more times a week - Substance Use History Substance History: No History of Abuse - Substance Use Type Crack/Cocaine Status: Sustained Remission Reason for Use: Calm Down - Travel History Recent Travel in the [place] Within the Last 8 Weeks: No Recent Travel Out of the Country Within the Last 8 Weeks: No - Immunization History Tetanus Immunization: Unsure Hx Influenza Vaccine This Season: Yes Medications and Allergies Active Medications: Active Medications Acetaminophen (Tylenol) 650 mg PO UNSCH PRN PRN Reason: SEE LABEL COMMENTS Acetaminophen (Tylenol) 650 mg PO UNSCH PRN PRN Reason: SEE LABEL COMMENTS Al Hydroxide/Mg Hydroxide (Milk Of Magnyuki Liq) 30 ml PO Q12H PRN PRN Reason: Mild Constipation Bisacodyl (Dulcolax Supp) 10 mg RECTAL DAILY PRN PRN Reason: SEVERE CONSITIPATION Clonidine HCl (Catapres) 0.1 mg PO UNSCH PRN PRN Reason: SEE LABEL COMMENTS Clonidine HCl (Catapres) 0.1 mg PO UNSCH PRN PRN Reason: SEE LABEL COMMENTS Diphenhydramine HCl (Benadryl) 25 mg PO UNSCH PRN PRN Reason: SEE LABEL COMMENTS Diphenhydramine HCl (Benadryl) 25 mg PO UNSCH PRN PRN Reason: SEE LABEL COMMENTS Epoetin Dominic (Epogen Inj) 4,000 unit IV.PUSH TUTHSA BILL Gelatin (Gelfoam 12 Mm/7 Mm Topical) 1 foam TOPICAL PRN PRN PRN Reason: help stop bleeding from site Gelatin (Gelfoam 12 Mm/7 Mm Topical) 1 foam TOPICAL PRN PRN PRN Reason: help stop bleeding from site Gentamicin Sulfate (Gentamicin Inj) 20 mg OTHER WITH DIALYSIS PRN PRN Reason: Dwell Gentamycin Lock Gentamicin Sulfate (Gentamicin Inj) 20 mg OTHER WITH DIALYSIS PRN PRN Reason: Dwell Gentamycin Lock Heparin Sodium (Porcine) (Heparin Inj) 8,000 units IV.FLUSH WITH DIALYSIS PRN PRN Reason: for machine prime Heparin Sodium (Porcine) (Heparin Inj) 1,000 units OTHER WITH DIALYSIS PRN PRN Reason: Dwell Heparin to Fill Catheter Heparin Sodium (Porcine) (Heparin Inj) 8,000 units IV.FLUSH WITH DIALYSIS PRN PRN Reason: for machine prime Heparin Sodium (Porcine) (Heparin Inj) 1,000 units OTHER WITH DIALYSIS PRN PRN Reason: Dwell Heparin to Fill Catheter Albumin Human (Flexbumin 25% Inj) 100 mls @ 60 mls/hr IV.SIG WITH DIALYSIS PRN PRN Reason: hypotension / volume replace Sodium Chloride (Ns Inj) 1,000 mls @ 0 mls/hr OTHER .Q0M PRN PRN Reason: for prime and rinse back Sodium Chloride (Ns Inj) 1,000 mls @ 200 mls/hr OTHER .Q5H PRN PRN Reason: for dialyzer flush PRN Sodium Chloride (Ns Inj) 1,000 mls @ 0 mls/hr IV.CONT .Q0M PRN PRN Reason: hypotension / volume replace Albumin Human (Flexbumin 25% Inj) 100 mls @ 60 mls/hr IV.SIG WITH DIALYSIS PRN PRN Reason: hypotension / volume replace Sodium Chloride (Ns Inj) 1,000 mls @ 0 mls/hr OTHER .Q0M PRN PRN Reason: for prime and rinse back Sodium Chloride (Ns Inj) 1,000 mls @ 200 mls/hr OTHER .Q5H PRN PRN Reason: for dialyzer flush PRN Sodium Chloride (Ns Inj) 1,000 mls @ 0 mls/hr IV.CONT .Q0M PRN PRN Reason: hypotension / volume replace Lactulose (Lactulose Liq) 30 ml PO DAILY PRN PRN Reason: SEVERE CONSITIPATION Mannitol (Mannitol Inj) 12.5 gm IV.PUSH PRN PRN PRN Reason: hypotension / volume replace Mannitol (Mannitol Inj) 12.5 gm IV.PUSH PRN PRN PRN Reason: hypotension / volume replace Nitroglycerin (Nitrostat Sl) 0.4 mg SL Q5M PRN PRN Reason: CHEST PAIN Nitroglycerin (Nitrostat Sl) 0.4 mg SL Q5M PRN PRN Reason: CHEST PAIN Ondansetron HCl (Zofran Inj) 4 mg IV.PUSH UNSCH PRN PRN Reason: NAUSEA OR VOMITING Ondansetron HCl (Zofran Inj) 4 mg IV.PUSH UNSCH PRN PRN Reason: NAUSEA OR VOMITING Senna/Docusate Sodium (Ayla-Colace) 1 tab PO BID BILL Last Admin: 11/28/17 22:19 Dose: Not Given Sennosides (Senokot) 17.2 mg PO Q12H PRN PRN Reason: Moderate Constipation Sodium Chloride (Ns Flush) 5 ml IV.FLUSH PRN PRN PRN Reason: flush each lumen during HD Sodium Chloride (Ns Flush) 5 ml IV.FLUSH PRN PRN PRN Reason: flush each lumen during HD Allergies Allergy/AdvReac Type Severity Reaction Status Date / Time ibuprofen Allergy Severe Swelling Verified 11/28/17 14:36 Influenza Virus Vaccines Allergy Severe Swelling Verified 11/28/17 14:36 Sulfa (Sulfonamide Allergy Severe Rash Verified 11/28/17 14:36 Antibiotics) Home Medications Medication Instructions Recorded Confirmed Type aspirin [Aspirin Low Dose] 81 mg PO DAILY 11/28/17 11/28/17 History cinacalcet [Sensipar] 30 mg PO BID 11/28/17 11/28/17 History lisinopril 10 mg PO DAILY 11/28/17 11/28/17 History metoprolol succinate 100 mg PO DAILY 11/28/17 11/28/17 History spironolactone 25 mg PO DAILY 11/28/17 11/28/17 History vit B comp [id number] 1 tab PO DAILY 11/28/17 11/28/17 History [Nephro-Rickie Rx] Exam Vital signs: Vital Signs 11/28/17 14:35 11/28/17 14:40 11/28/17 14:56 Temperature 97.9 F 97.8 F Pulse Rate 100 H 102 H Respiratory Rate 28 H 28 H Blood Pressure 135/67 145/68 H Pulse Oximetry 100 999 H 95 11/28/17 15:12 11/28/17 16:43 11/28/17 20:00 Temperature 97.8 F 98.0 F Pulse Rate 108 H 96 H 108 H Respiratory Rate 17 25 H 19 Blood Pressure 144/81 H 141/77 H Pulse Oximetry 100 98 100 11/29/17 00:00 11/29/17 00:40 11/29/17 04:00 Temperature 98.2 F Pulse Rate 79 115 H Respiratory Rate 16 Blood Pressure 120/69 Pulse Oximetry 100 100 Intake & Output 11/28/17 11/28/17 11/29/17 06:59 18:59 06:59 Weight 62 kg Narrative: Gen.: No acute distress Head: Normocephalic. Atraumatic. EENT: Pupils equal round and reactive to light. Nose without drainage. Airway intact. Throat without injection. Cardiovascular: Regular rate and rhythm. No murmurs, rubs or gallops. Respiratory: Lungs clear to auscultation bilaterally. No wheezes or rhonchi. Abdomen: Soft, nontender, nondistended. No peritoneal signs. Musculoskeletal: No gross deformities. No edema. AV fistula in place in left upper extremity with positive thrill. Skin: No obvious rashes or erythema. Neuro: Sensory and motor grossly intact. Cranial nerves II through XII grossly intact. Psych: Appropriate mood and affect Results - Labs CBC & Chem 7: 11/28/17 14:00 11/28/17 14:00 Labs: Laboratory Results - last 24 hr 11/28/17 11/28/17 14:00 14:00 WBC 5.7 RBC 3.54 L Hgb 11.4 L Hct 35.8 L MCV 101.2 H MCH 32.3 MCHC 31.9 L RDW 19.0 H Plt Count 184 MPV 10.8 Neut % (Auto) 77.3 H Lymph % (Auto) 9.3 [place] % (Auto) 12.2 H Eos % (Auto) 0.2 Baso % (Auto) 1.0 Neut # (Auto) 4.4 Lymph # (Auto) 0.5 L [place] # (Auto) 0.7 Eos # (Auto) 0.0 Baso # (Auto) 0.1 WBC Differential . Differential Comment Auto diff final Sodium 138 Potassium 6.3 H Chloride 104 Carbon Dioxide 19.1 L Anion Gap 15 BUN 64 H Creatinine 9.21 H Estimated GFR 7 L Random Glucose 86 Calcium 9.5 Magnesium 2.3 Total Bilirubin 0.6 AST 33 ALT 25 Alkaline Phosphatase 74 Troponin I 0.19 H Total Protein 7.9 Albumin 3.5 - Imaging Impressions Chest X-Ray 11/28/17 14:37 CONCLUSION: Radiographic pattern suggesting intra-alveolar pulmonary edema. Caprini VTE Risk Assessment Caprini VTE Risk Assessment: Moderate/High Risk (score >= 2) Caprini Risk Assessment Model: Point Value = 1 Point Value = 2 Point Value = 3 Point Value = 5 Age 41-60 Minor surgery BMI > 25 kg/m2 Swollen legs Varicose veins or History of unexplained or recurrent spontaneous Oral contraceptives or hormone replacement Sepsis (< 1 month) Serious lung disease, including pneumonia (< 1 month) Abnormal pulmonary function Acute myocardial infarction Congestive heart failure (< 1 month) History of inflammatory bowel disease Medical patient at bed rest Age 61-74 Arthroscopic surgery Major open surgery (> 45 min) Laparoscopic surgery (> 45 min) Malignancy Confined to bed (> 72 hours) Immobilizing plaster cast Central venous access Age >= 75 History of VTE Family history of VTE Factor V Leiden Prothrombin [id number] Lupus anticoagulant Anticardiolipin antibodies Elevated serum homocysteine Heparin-induced thrombocytopenia Other congenital or acquired thrombophilia Stroke (< 1 month) Elective arthroplasty Hip, pelvis, or leg fracture Acute spinal cord injury (< 1 month) Prophylaxis Regimen: Total Risk Factor Score Risk Level Prophylaxis Regimen 0-1 Low Early ambulation 2 Moderate Order ONE of the following: *Sequential Compression Device (SCD) *Heparin 5000 units SQ BID 3-4 Higher Order ONE of the following medications: *Heparin 5000 units SQ TID *Enoxaparin/Lovenox 40 mg SQ daily (WT < 150 kg, CrCl > 30 mL/min) *Enoxaparin/Lovenox 30 mg SQ daily (WT < 150 kg, CrCl > 10-29 mL/min) *Enoxaparin/Lovenox 30 mg SQ BID (WT < 150 kg, CrCl > 30 mL/min) AND/OR *Sequential Compression Device (SCD) 5 or more Highest Order ONE of the following medications: *Heparin 5000 units SQ TID (Preferred with Epidurals) *Enoxaparin/Lovenox 40 mg SQ daily (WT < 150 kg, CrCl > 30 mL/min) *Enoxaparin/Lovenox 30 mg SQ daily (WT < 150 kg, CrCl > 10-29 mL/min) *Enoxaparin/Lovenox 30 mg SQ BID (WT < 150 kg, CrCl > 30 mL/min) AND *Sequential Compression Device (SCD) Assessment and Plan - Plan Assessment/plan: 1. Shortness of breath/fluid overload/pulmonary edema Patient seen after dialysis Breathing comfortably and satting well on room air Nephrology consulted, appreciate assistance 2. Elevated troponin Initial troponin 0.19 EKG showed sinus tachycardia with no change from previous, no ST segment elevation or depression, personally reviewed Serial troponins/EKGs Patient denies any chest pain 3. Hyperkalemia Status post dialysis Repeat BMP in a.m. 4. End-stage renal disease/anemia Nephrology consulted as above Epogen per nephrology 5. Hypertension/CAD/CHF/COPD Duo nebs Continue home medications 6. Noncompliance Counseled patient as to the importance of compliance with his medications and dialysis schedule FEN Renal diet Electrolytes: As above
[2017-11-29 06:04] LABS: Baso # (Auto) 0.1 th/mm3 (0.0-0.2); Baso % (Auto) 1.1 % (0.0-2.0); Eos # (Auto) 0.1 th/mm3 (0.0-0.4); Eos % (Auto) 0.9 % (0.0-4.0); Hematocrit 33.8 % (39.0-51.0); Hemoglobin 11.2 gm/dL (13.0-17.0); Lymph # (Auto) 0.6 th/mm3 (1.0-4.8); Lymph % (Auto) 9.1 % (9.0-44.0); Mean Corpuscular Hemoglobin 32.7 pg (27.0-34.0); Mean Corpuscular Volume 98.8 fL (80.0-100.0); Mean Platelet Volume 10.3 fL (7.0-11.0); Mono # (Auto) 0.7 th/mm3 (0.0-0.9); Mono % (Auto) 11.4 % (0.0-8.0); Neut % (Auto) 77.5 % (16.0-70.0); Platelet Count 164 th/mm3 (150-450); Red Blood Count 3.42 mil/mm3 (4.50-5.90); Red Cell Distribution Width 18.2 % (11.6-17.2); White Blood Count 6.4 th/mm3 (4.0-11.0)
[2017-11-29 06:19] LABS: Anion Gap 12 meq/L (5-15); Blood Urea Nitrogen 53 mg/dL (7-18); Calcium 8.9 mg/dL (8.5-10.1); Carbon Dioxide 24.9 meq/L (21.0-32.0); Chloride 103 meq/L (98-107); Creatine Kinase 116 U/L (39-308); Glomerular Filtration Rate 9 mL/min (>89); Glucose,Random 75 mg/dL (74-106); Potassium 5.1 meq/L (3.5-5.1); Sodium 140 meq/L (136-145); Troponin I 0.18 ng/mL (0.02-0.05)
[2017-11-29 06:32] LABS: Creatine Kinase MB 5.2 ng/mL (0.5-3.6)
[2017-11-29] MEDS ORDERED: Lisinopril 10 MG Tablet PO SCH (09:00)
[2017-11-29] MEDS: Spironolactone 25 MG Tablet PO SCH (09:44)
[2017-11-29] MEDS: Senna/Docusate Sodium 8.6/50 MG Tablet PO SCH ×2 (09:45→20:32)
[2017-11-29 10:51] LABS: ABG Base Excess 1.6 mmol/L (-2-2); ABG PCO2 32 mmHg (38-42); ABG PO2 89 mmHg (61-120)
--- NOTE | 2017-11-29 12:07 | P.PNNP ---
Subjective Interval history: This is a 62 year-old male known to me from before with history of hypertension , ischemic heart disease, congestive heart failure, history of pleural effusion , recurrent fluid overload status, history of noncompliance with fluid intake and diet and end-stage renal disease on hemodialysis 3 times per week who came to the hospital complaining of worsening shortness of breath.The patient has been on hemodialysis Monday, and Monday. He was supposed to go for dialysis today and came to the hospital because of his shortness of breath. His breathing was getting worse. The patient is put on BiPAP here and he was found to have high potassium. He was given some medical treatment for the high potassium. Now, he is on hemodialysis. The patient is quite sleepy and lethargic. He is not able to give much history. Most of the history was taken from the patient's chart. He did not have any chest pain. He has this worsening shortness of breath associated with mild dry cough. There is no known history of fever Reports shortness of breath has improved. No edema. Still on venti mask. <Skylar Paulino - Last Filed: 11/29/17 11:56> Physical Exam Vital signs: Vital Signs 11/28/17 14:35 11/28/17 14:40 11/28/17 14:56 Temperature 97.9 F 97.8 F Pulse Rate 100 H 102 H Respiratory Rate 28 H 28 H Blood Pressure 135/67 145/68 H Pulse Oximetry 100 999 H 95 11/28/17 15:12 11/28/17 16:43 11/28/17 20:00 Temperature 97.8 F 98.0 F Pulse Rate 108 H 96 H 108 H Respiratory Rate 17 25 H 19 Blood Pressure 144/81 H 141/77 H Pulse Oximetry 100 98 100 11/29/17 00:00 11/29/17 00:40 11/29/17 04:00 Temperature 98.2 F 98.1 F Pulse Rate 79 69 Respiratory Rate 16 14 Blood Pressure 120/69 110/60 Pulse Oximetry 100 100 100 11/29/17 08:00 Temperature 97.4 F L Pulse Rate 111 H Respiratory Rate 18 Blood Pressure 133/67 Pulse Oximetry 99 Intake & Output 11/28/17 11/29/17 11/29/17 18:59 06:59 18:59 Weight 62 kg 66.9 kg - Constitutional mild distress - Routine HEENT Exam Head: Present: normocephalic - Routine Neck Exam Present: supple. Absent: JVD - Routine Respiratory Exam Present: decreased breath sounds, rhonchi. Absent: rales, wheezes - Routine Cardiovascular Exam Present: RRR, murmur, tachycardia - Routine Abdominal Exam Present: soft - Routine Extremities Exam Present: AV fistula. Absent: edema - Routine Skin Exam Present: dry, warm - Routine Neurological Exam Present: alert, oriented X3 - Routine Psychiatric Exam Present: cooperative <Skylar Paulino - Last Filed: 11/29/17 11:56> Vital signs: Vital Signs 11/28/17 20:00 11/29/17 00:00 11/29/17 00:40 Temperature 98.0 F 98.2 F Pulse Rate 108 H 79 Respiratory Rate 19 16 Blood Pressure 141/77 H 120/69 Pulse Oximetry 100 100 100 11/29/17 04:00 11/29/17 08:00 11/29/17 12:00 Temperature 98.1 F 97.4 F L 97.6 F Pulse Rate 69 116 H 101 H Respiratory Rate 14 18 18 Blood Pressure 110/60 133/67 97/67 L Pulse Oximetry 100 99 100 11/29/17 14:23 11/29/17 17:00 Temperature Pulse Rate 50 L 94 H Respiratory Rate 24 Blood Pressure Pulse Oximetry 92 L Intake & Output 11/28/17 11/29/17 11/29/17 18:59 06:59 18:59 Output Total 3500 / 3500 Balance -3500 / -3500 Weight 62 kg 66.9 kg Output: Hemodialysis Amount 3500 / 3500 <Barber Peck - Last Filed: 11/29/17 18:57> Assessment and Plan - Assessment (1) ESRD (end stage renal disease) on dialysis Code(s): N18.6 - End stage renal disease; Z99.2 - Dependence on renal dialysis Status: Acute Plan: End stage renal disease Monday//Monday Presented with fluid overload and has hyperkalemia. Hemodialysis yesterday tolerated well Epogen with the dialysis. Hypokalemia has resolved today Will have dialysis do UF only today Hemodialysis tomorrow (2) Pulmonary edema Code(s): J81.1 - Chronic pulmonary edema Status: Acute Qualifiers: Chronicity: acute Qualified Code(s): J81.0 - Acute pulmonary edema Plan: Reports that shortness of breath has improved. <Skylar Paulino - Last Filed: 11/29/17 11:56> - Assessment (1) ESRD (end stage renal disease) on dialysis Code(s): N18.6 - End stage renal disease; Z99.2 - Dependence on renal dialysis Status: Acute (2) Pulmonary edema Code(s): J81.1 - Chronic pulmonary edema Status: Acute Qualifiers: Chronicity: acute Qualified Code(s): J81.0 - Acute pulmonary edema - Attending Attestation Patient seen and examined, agree with above. Still requiring high O2, HD again today, remove fluid as tolerated. <Barber Peck - Last Filed: 11/29/17 18:57>
--- NOTE | 2017-11-29 12:26 | P.PN ---
Subjective Interval history: Follow-up shortness of breath/pulmonary edema November 29, 2017-patient seen and examined, currently on simple mask, appears short of breath. Denies any chest pain. Physical Exam Vital signs: Vital Signs 11/28/17 14:35 11/28/17 14:40 11/28/17 14:56 Temperature 97.9 F 97.8 F Pulse Rate 100 H 102 H Respiratory Rate 28 H 28 H Blood Pressure 135/67 145/68 H Pulse Oximetry 100 999 H 95 11/28/17 15:12 11/28/17 16:43 11/28/17 20:00 Temperature 97.8 F 98.0 F Pulse Rate 108 H 96 H 108 H Respiratory Rate 17 25 H 19 Blood Pressure 144/81 H 141/77 H Pulse Oximetry 100 98 100 11/29/17 00:00 11/29/17 00:40 11/29/17 04:00 Temperature 98.2 F 98.1 F Pulse Rate 79 69 Respiratory Rate 16 14 Blood Pressure 120/69 110/60 Pulse Oximetry 100 100 100 11/29/17 08:00 Temperature 97.4 F L Pulse Rate 111 H Respiratory Rate 18 Blood Pressure 133/67 Pulse Oximetry 99 Intake & Output 11/28/17 11/29/17 11/29/17 18:59 06:59 18:59 Weight 62 kg 66.9 kg Narrative: GENERAL: mild distress SKIN: Warm and dry. HEAD: Normocephalic. EYES: No scleral icterus. No injection or drainage. NECK: Supple, trachea midline. No JVD or lymphadenopathy. CARDIOVASCULAR: Regular rate and rhythm without murmurs, gallops, or rubs. RESPIRATORY: Breath sounds decrease bilaterally. No accessory muscle use. GASTROINTESTINAL: Abdomen soft, non-tender, nondistended. MUSCULOSKELETAL: No cyanosis, or edema. BACK: Nontender without obvious deformity. No CVA tenderness. Results - Labs CBC & Chem 7: 11/29/17 05:25 11/29/17 05:25 Laboratory Results - last 24 hr 11/28/17 11/28/17 11/29/17 14:00 14:00 05:25 WBC 5.7 6.4 RBC 3.54 L 3.42 L Hgb 11.4 L 11.2 L Hct 35.8 L 33.8 L MCV 101.2 H 98.8 MCH 32.3 32.7 MCHC 31.9 L 33.0 RDW 19.0 H 18.2 H Plt Count 184 164 MPV 10.8 10.3 Neut % (Auto) 77.3 H 77.5 H Lymph % (Auto) 9.3 9.1 [place] % (Auto) 12.2 H 11.4 H Eos % (Auto) 0.2 0.9 Baso % (Auto) 1.0 1.1 Neut # (Auto) 4.4 5.0 Lymph # (Auto) 0.5 L 0.6 L [place] # (Auto) 0.7 0.7 Eos # (Auto) 0.0 0.1 Baso # (Auto) 0.1 0.1 WBC Differential . . Differential Comment Auto diff final Auto diff final Puncture Site Patient Temperature O2 Saturation ABG pH ABG pCO2 ABG pO2 ABG HCO3 ABG O2 Content ABG Base Excess ABG Methemoglobin Hemoglobin Carboxyhemoglobin O2 Delivery Device Liter Flow Inspired O2 Critical Value Sodium 138 Potassium 6.3 H Chloride 104 Carbon Dioxide 19.1 L Anion Gap 15 BUN 64 H Creatinine 9.21 H Estimated GFR 7 L Random Glucose 86 Calcium 9.5 Magnesium 2.3 Total Bilirubin 0.6 AST 33 ALT 25 Alkaline Phosphatase 74 Total Creatine Kinase CK-MB (CK-2) Troponin I 0.19 H Total Protein 7.9 Albumin 3.5 11/29/17 11/29/17 05:25 10:41 WBC RBC Hgb Hct MCV MCH MCHC RDW Plt Count MPV Neut % (Auto) Lymph % (Auto) [place] % (Auto) Eos % (Auto) Baso % (Auto) Neut # (Auto) Lymph # (Auto) [place] # (Auto) Eos # (Auto) Baso # (Auto) WBC Differential Differential Comment Puncture Site Right brachial Patient Temperature 98.6 O2 Saturation 95 ABG pH 7.50 H ABG pCO2 32 L ABG pO2 89 ABG HCO3 25 ABG O2 Content 15.5 ABG Base Excess 1.6 ABG Methemoglobin 1.0 Hemoglobin 11.5 L Carboxyhemoglobin 2.1 O2 Delivery Device Venti mask Liter Flow 6.00 Inspired O2 40 Critical Value No Sodium 140 Potassium 5.1 D Chloride 103 Carbon Dioxide 24.9 Anion Gap 12 BUN 53 H Creatinine 7.31 H Estimated GFR 9 L Random Glucose 75 Calcium 8.9 Magnesium Total Bilirubin AST ALT Alkaline Phosphatase Total Creatine Kinase 116 CK-MB (CK-2) 5.2 H Troponin I 0.18 H Total Protein Albumin - Imaging Impressions Chest X-Ray 11/28/17 14:37 CONCLUSION: Radiographic pattern suggesting intra-alveolar pulmonary edema. Assessment and Plan - Assessment (1) Pulmonary edema Code(s): J81.1 - Chronic pulmonary edema Status: Acute (2) Acute hyperkalemia Code(s): E87.5 - Hyperkalemia Status: Acute (3) ESRD (end stage renal disease) on dialysis Code(s): N18.6 - End stage renal disease; Z99.2 - Dependence on renal dialysis Status: Acute - Plan 62-year-old man with 1. Shortness of breath/fluid overload/pulmonary edema Patient seen after dialysis Appreciate input from nephrology Check BNP 2. Elevated troponin Likely secondary to end-stage renal disease versus cardiac EKG showed sinus tachycardia with no change from previous, no ST segment elevation or depression, personally reviewed Serial troponins/EKGs Patient denies any chest pain 3. Hyperkalemia Status post dialysis Repeat BMP in a.m. 4. End-stage renal disease/anemia Nephrology ff Continue with hemodialysis per protocol Epogen per nephrology 5. Hypertension/CAD/CHF/COPD Duo nebs Continue home medications 6. Noncompliance Counseled patient as to the importance of compliance with his medications and dialysis schedule (1) Pulmonary edema Qualifiers: Chronicity: acute Qualified Code(s): J81.0 - Acute pulmonary edema
--- NOTE | 2017-11-29 14:07 | ECG ---
Date Performed: 11/29/2017 Time Performed: 09:54:18 PTAGE: 62 years EKG: Sinus tachycardia with PAC(s). Cannot rule out anteroseptal infarct - age undetermined Poss ible left ventricular hypertrophy Nonspecific ST and T wave abnormalities Abnormal ECG No significant change from prior electrocardiogram. PREVIOUS TRACING : 11/28/2017 14.34 DOCTOR: Yaya Yo Interpretating Date/Time 11/29/2017 14:05:52
[2017-11-30] MEDS: Senna/Docusate Sodium 8.6/50 MG Tablet PO SCH ×2 (09:19→20:53)
[2017-11-30] MEDS: Spironolactone 25 MG Tablet PO SCH (09:19)
--- NOTE | 2017-11-30 09:38 | P.PNNP ---
Subjective Interval history: Sitting up eating breakfast. Shortness of breath has improved on room air now. Extra dialysis done yesterday <Skylar Paulino - Last Filed: 11/30/17 09:32> Physical Exam Vital signs: Vital Signs 11/29/17 12:00 11/29/17 14:23 11/29/17 17:00 Temperature 97.6 F Pulse Rate 101 H 50 L 94 H Respiratory Rate 18 24 Blood Pressure 97/67 L Pulse Oximetry 100 92 L 11/29/17 18:00 11/29/17 19:55 11/29/17 19:58 Temperature 97.3 F L Pulse Rate 100 H 86 Respiratory Rate 18 14 Blood Pressure 110/68 Pulse Oximetry 100 94 L 11/29/17 20:00 11/30/17 00:00 11/30/17 00:35 Temperature 97.6 F 97.8 F Pulse Rate 100 H 88 93 H Respiratory Rate 19 17 Blood Pressure 100/61 104/62 Pulse Oximetry 97 96 11/30/17 04:00 11/30/17 04:05 11/30/17 08:05 Temperature 97.7 F Pulse Rate 98 H 82 87 Respiratory Rate 18 17 Blood Pressure 110/85 Pulse Oximetry 95 99 Intake & Output 11/29/17 11/30/17 11/30/17 18:59 06:59 18:59 Intake Total 701 / 701 Output Total 3500 / 3500 Balance -3500 / -3500 701 / 701 Weight 64.9 kg Intake: Oral 701 / 701 Output: Hemodialysis Amount 3500 / 3500 Other: # Voids 3 - Constitutional no acute distress - Routine HEENT Exam ENT: Present: mucous membranes moist - Routine Neck Exam Present: supple. Absent: JVD - Routine Respiratory Exam Present: decreased breath sounds. Absent: rales, rhonchi, wheezes - Routine Cardiovascular Exam Present: RRR - Routine Abdominal Exam Present: soft, normoactive bowel sounds Comments: flat - Routine Extremities Exam Absent: edema - Routine Skin Exam Present: dry, warm - Routine Neurological Exam Present: alert, oriented X3 - Routine Psychiatric Exam Present: cooperative <Skylar Paulino - Last Filed: 11/30/17 09:32> Vital signs: Vital Signs 11/29/17 19:55 11/29/17 19:58 07/11/18 20:00 Temperature 97.6 F Pulse Rate 86 100 H Respiratory Rate 14 19 Blood Pressure 100/61 Pulse Oximetry 94 L 97 11/30/17 00:00 11/30/17 00:35 11/30/17 04:00 Temperature 97.8 F 97.7 F Pulse Rate 88 93 H 98 H Respiratory Rate 17 18 Blood Pressure 104/62 110/85 Pulse Oximetry 96 95 11/30/17 04:05 11/30/17 08:00 11/30/17 08:05 Temperature 97.8 F Pulse Rate 82 81 87 Respiratory Rate 18 17 Blood Pressure 105/71 Pulse Oximetry 100 99 11/30/17 11:42 11/30/17 12:00 Temperature 97.9 F Pulse Rate 102 H 102 H Respiratory Rate 18 Blood Pressure 103/67 Pulse Oximetry 98 Intake & Output 11/29/17 11/30/17 11/30/17 18:59 06:59 18:59 Intake Total 701 / 701 Output Total 3500 / 3500 3000 / 3000 Balance -3500 / -3500 701 / 701 -3000 / -3000 Weight 64.9 kg Intake: Oral 701 / 701 Output: Hemodialysis Amount 3500 / 3500 3000 / 3000 Other: # Voids 3 <Barber Peck - Last Filed: 11/30/17 18:28> Assessment and Plan - Assessment (1) ESRD (end stage renal disease) on dialysis Code(s): N18.6 - End stage renal disease; Z99.2 - Dependence on renal dialysis Status: Acute Plan: End stage renal disease Monday//Monday Presented with fluid overload and has hyperkalemia. Epogen with the dialysis. Hemodialysis done two days in a row. Shortness of breath has improved Hemodialysis yesterday with 3 liters removed. Fluid restriction and dialysis compliance discussed. Hemodialysis today to put patient on regular dialysis days. (2) Pulmonary edema Code(s): J81.1 - Chronic pulmonary edema Status: Acute Qualifiers: Chronicity: acute Qualified Code(s): J81.0 - Acute pulmonary edema Plan: Reports that shortness of breath has improved. <Skylar Paulino - Last Filed: 11/30/17 09:32> - Assessment (1) ESRD (end stage renal disease) on dialysis Code(s): N18.6 - End stage renal disease; Z99.2 - Dependence on renal dialysis Status: Acute (2) Pulmonary edema Code(s): J81.1 - Chronic pulmonary edema Status: Acute Qualifiers: Chronicity: acute Qualified Code(s): J81.0 - Acute pulmonary edema - Attending Attestation Patient seen and examined, agree with above. HD done again and now breathing is better. Told to be compliant with fluid and HD. <Barber Peck - Last Filed: 11/30/17 18:28>
[2017-11-30 11:25] LABS: Baso % (Auto) 0.8 % (0.0-2.0); Eos # (Auto) 0.1 th/mm3 (0.0-0.4); Eos % (Auto) 0.9 % (0.0-4.0); Hematocrit 37.5 % (39.0-51.0); Hemoglobin 12.1 gm/dL (13.0-17.0); Lymph # (Auto) 0.7 th/mm3 (1.0-4.8); Lymph % (Auto) 12.6 % (9.0-44.0); Mean Corpuscular HGB Conc 32.2 % (32.0-36.0); Mean Corpuscular Hemoglobin 32.1 pg (27.0-34.0); Mean Corpuscular Volume 99.8 fL (80.0-100.0); Mean Platelet Volume 10.7 fL (7.0-11.0); Mono # (Auto) 0.4 th/mm3 (0.0-0.9); Mono % (Auto) 7.9 % (0.0-8.0); Neut # (Auto) 4.4 th/mm3 (1.8-7.7); Neut % (Auto) 77.8 % (16.0-70.0); Platelet Count 175 th/mm3 (150-450); Red Blood Count 3.76 mil/mm3 (4.50-5.90); Red Cell Distribution Width 18.6 % (11.6-17.2); White Blood Count 5.6 th/mm3 (4.0-11.0)
--- NOTE | 2017-11-30 11:34 | P.PN ---
Subjective Interval history: Follow-up shortness of breath/pulmonary edema November 29, 2017-patient seen and examined, currently on simple mask, appears short of breath. Denies any chest pain. November 30, 2017-patient seen and examined, reports significant improvement of shortness of breath. Currently on 4 L nasal cannula. Denies any chest pain. Patient had hemodialysis yesterday as well. Physical Exam Vital signs: Vital Signs 11/29/17 12:00 11/29/17 14:23 11/29/17 17:00 Temperature 97.6 F Pulse Rate 101 H 50 L 94 H Respiratory Rate 18 24 Blood Pressure 97/67 L Pulse Oximetry 100 92 L 11/29/17 18:00 11/29/17 19:55 11/29/17 19:58 Temperature 97.3 F L Pulse Rate 100 H 86 Respiratory Rate 18 14 Blood Pressure 110/68 Pulse Oximetry 100 94 L 11/29/17 20:00 11/30/17 00:00 11/30/17 00:35 Temperature 97.6 F 97.8 F Pulse Rate 100 H 88 93 H Respiratory Rate 19 17 Blood Pressure 100/61 104/62 Pulse Oximetry 97 96 11/30/17 04:00 11/30/17 04:05 11/30/17 08:00 Temperature 97.7 F 97.8 F Pulse Rate 98 H 82 88 Respiratory Rate 18 18 Blood Pressure 110/85 105/71 Pulse Oximetry 95 100 11/30/17 08:05 Temperature Pulse Rate 87 Respiratory Rate 17 Blood Pressure Pulse Oximetry 99 Intake & Output 11/29/17 11/30/17 11/30/17 18:59 06:59 18:59 Intake Total 701 / 701 Output Total 3500 / 3500 Balance -3500 / -3500 701 / 701 Weight 64.9 kg Intake: Oral 701 / 701 Output: Hemodialysis Amount 3500 / 3500 Other: # Voids 3 Narrative: GENERAL: NAD SKIN: Warm and dry. HEAD: Normocephalic. EYES: No scleral icterus. No injection or drainage. NECK: Supple, trachea midline. No JVD or lymphadenopathy. CARDIOVASCULAR: Regular rate and rhythm without murmurs, gallops, or rubs. RESPIRATORY: Breath sounds equal bilaterally. No accessory muscle use. GASTROINTESTINAL: Abdomen soft, non-tender, nondistended. MUSCULOSKELETAL: No cyanosis, or edema. BACK: Nontender without obvious deformity. No CVA tenderness. Results - Labs CBC & Chem 7: 11/30/17 10:00 11/29/17 05:25 Laboratory Results - last 24 hr 11/29/17 11/30/17 05:25 10:00 WBC 5.6 RBC 3.76 L Hgb 12.1 L Hct 37.5 L MCV 99.8 MCH 32.1 MCHC 32.2 RDW 18.6 H Plt Count 175 MPV 10.7 Neut % (Auto) 77.8 H Lymph % (Auto) 12.6 [place] % (Auto) 7.9 Eos % (Auto) 0.9 Baso % (Auto) 0.8 Neut # (Auto) 4.4 Lymph # (Auto) 0.7 L [place] # (Auto) 0.4 Eos # (Auto) 0.1 Baso # (Auto) 0.0 WBC Differential . Differential Comment Auto diff final B-Natriuretic Peptide Greater than 5000 H Assessment and Plan - Assessment (1) Pulmonary edema Code(s): J81.1 - Chronic pulmonary edema Status: Acute (2) Acute hyperkalemia Code(s): E87.5 - Hyperkalemia Status: Acute (3) ESRD (end stage renal disease) on dialysis Code(s): N18.6 - End stage renal disease; Z99.2 - Dependence on renal dialysis Status: Acute - Plan 62-year-old man with 1. Shortness of breath/fluid overload/pulmonary edema-improving Patient seen after dialysis Appreciate input from nephrology Significantly elevated BNP 2. Elevated troponin Likely secondary to end-stage renal disease versus pulmonary congestion. Unlikely ACS EKG showed sinus tachycardia with no change from previous, no ST segment elevation or depression, personally reviewed Patient denies any chest pain 3. Hyperkalemia Resolved status post dialysis 4. End-stage renal disease/anemia Nephrology ff Continue with hemodialysis per protocol Epogen per nephrology 5. Hypertension/CAD/CHF/COPD Duo nebs Continue home medications 6. Noncompliance Counseled patient as to the importance of compliance with his medications and dialysis schedule (1) Pulmonary edema Qualifiers: Chronicity: acute Qualified Code(s): J81.0 - Acute pulmonary edema
[2017-11-30 12:06] LABS: Alanine Aminotransferase 22 U/L (12-78); Albumin 3.3 g/dL (3.4-5.0); Alkaline Phosphatase 77 U/L (45-117); Anion Gap 15 meq/L (5-15); Aspartate Aminotransferase 29 U/L (15-37); Blood Urea Nitrogen 48 mg/dL (7-18); Carbon Dioxide 24.7 meq/L (21.0-32.0); Chloride 96 meq/L (98-107); Creatine Kinase 105 U/L (39-308); Glomerular Filtration Rate 10 mL/min (>89); Glucose,Random 122 mg/dL (74-106); Sodium 136 meq/L (136-145); Total Protein 8.1 g/dL (6.4-8.2); Troponin I 0.13 ng/mL (0.02-0.05)
[2017-11-30 12:22] LABS: Creatine Kinase MB 4.3 ng/mL (0.5-3.6)
[2017-11-30] MEDS: Epoetin Alfa Inj 4,000 UNIT/ML Vial IV.PUSH SCH ×2 (15:06→17:00)
[2017-11-30] MEDS ORDERED: Lisinopril 10 MG Tablet PO SCH (21:00)
[2017-12-01] MEDS ORDERED: Benzonatate 100 MG Capsule PO PRN (06:16)
[2017-12-01] MEDS: Spironolactone 25 MG Tablet PO SCH (09:49)
[2017-12-01] MEDS: Senna/Docusate Sodium 8.6/50 MG Tablet PO SCH (09:49)
--- NOTE | 2017-12-01 11:42 | P.PN ---
Subjective Interval history: Follow-up shortness of breath/pulmonary edema November 29, 2017-patient seen and examined, currently on simple mask, appears short of breath. Denies any chest pain. November 30, 2017-patient seen and examined, reports significant improvement of shortness of breath. Currently on 4 L nasal cannula. Denies any chest pain. Patient had hemodialysis yesterday as well. December 01, 2017-patient seen and examined, denies any shortness of breath. Had hemodialysis yesterday. Discussed with patient the importance of compliance with hemodialysis Physical Exam Vital signs: Vital Signs 11/30/17 11:42 11/30/17 12:00 11/30/17 16:00 Temperature 97.9 F 97.2 F L Pulse Rate 102 H 102 H 88 Respiratory Rate 18 18 Blood Pressure 103/67 113/67 Pulse Oximetry 98 95 11/30/17 20:00 12/01/17 00:00 12/01/17 01:21 Temperature 97.9 F 97.8 F Pulse Rate 104 H 87 Respiratory Rate 17 17 Blood Pressure 111/63 116/71 Pulse Oximetry 98 96 96 12/01/17 02:18 12/01/17 04:00 12/01/17 08:00 Temperature 97.8 F 97.8 F Pulse Rate 85 90 101 H Respiratory Rate 17 20 Blood Pressure 118/66 123/76 Pulse Oximetry 94 L 95 12/01/17 08:15 Temperature Pulse Rate 90 Respiratory Rate Blood Pressure Pulse Oximetry Intake & Output 11/30/17 12/01/17 12/01/17 18:59 06:59 18:59 Intake Total 1410 / 1410 Output Total 3000 / 3000 Balance -3000 / -3000 1410 / 1410 Weight 64.2 kg Intake: Oral 1410 / 1410 Output: Hemodialysis Amount 3000 / 3000 Other: # Voids 2 Narrative: GENERAL: NAD SKIN: Warm and dry. HEAD: Normocephalic. EYES: No scleral icterus. No injection or drainage. NECK: Supple, trachea midline. No JVD or lymphadenopathy. CARDIOVASCULAR: Regular rate and rhythm without murmurs, gallops, or rubs. RESPIRATORY: Breath sounds equal bilaterally. No accessory muscle use. GASTROINTESTINAL: Abdomen soft, non-tender, nondistended. MUSCULOSKELETAL: No cyanosis, or edema. BACK: Nontender without obvious deformity. No CVA tenderness. Results - Labs CBC & Chem 7: 11/30/17 10:00 11/30/17 10:00 Laboratory Results - last 24 hr 11/30/17 10:00 Sodium 136 Potassium 4.0 D Chloride 96 L Carbon Dioxide 24.7 Anion Gap 15 BUN 48 H Creatinine 7.10 H Estimated GFR 10 L Random Glucose 122 H Calcium 9.0 Total Bilirubin 0.4 AST 29 ALT 22 Alkaline Phosphatase 77 Total Creatine Kinase 105 CK-MB (CK-2) 4.3 H Troponin I 0.13 H Total Protein 8.1 Albumin 3.3 L - Procedures None Assessment and Plan - Assessment (1) Pulmonary edema Code(s): J81.1 - Chronic pulmonary edema Status: Resolved (2) Acute hyperkalemia Code(s): E87.5 - Hyperkalemia Status: Resolved (3) ESRD (end stage renal disease) on dialysis Code(s): N18.6 - End stage renal disease; Z99.2 - Dependence on renal dialysis Status: Chronic - Plan 62-year-old man with 1. Shortness of breath/fluid overload/pulmonary edema-improved Patient seen after dialysis Appreciate input from nephrology Significantly elevated BNP 2. Elevated troponin Likely secondary to end-stage renal disease versus pulmonary congestion. Unlikely ACS EKG showed sinus tachycardia with no change from previous, no ST segment elevation or depression, personally reviewed Patient denies any chest pain 3. Hyperkalemia Resolved status post dialysis 4. End-stage renal disease/anemia Nephrology ff Continue with hemodialysis per protocol. Discussed with patient regarding the importance of compliance with hemodialysis Epogen per nephrology 5. Hypertension/CAD/CHF/COPD Duo nebs Continue home medications 6. Noncompliance Counseled patient as to the importance of compliance with his medications and dialysis schedule (1) Pulmonary edema Qualifiers: Chronicity: acute Qualified Code(s): J81.0 - Acute pulmonary edema
--- NOTE | 2017-12-01 11:50 | P.DS ---
Date of admission: 11/28/17 18:00 Primary care physician: [facility] Anticipated date of discharge: 12/01/17 Brief History from admission: 62-year-old male with a past medical history significant for end-stage renal disease on dialysis, CHF, cocaine abuse, diabetes mellitus, hypertension, hepatitis C, CAD and COPD presents to the emergency department for evaluation of shortness of breath. The patient is typically dialyzed on Monday, , Monday. He was supposed to go for dialysis yesterday but came to the hospital instead because of his increasing shortness of breath. The patient is an extremely poor historian. He is seen after dialysis and reports his shortness of breath has resolved. He has no complaints at this time aside from insomnia. He denies any chest pain. No abdominal pain. No nausea/vomiting/ diarrhea. No fevers/chills. No lateralizing signs/symptoms. DS: Diagnosis - Discharge Diagnosis (1) Pulmonary edema Status: Resolved (2) Acute hyperkalemia Status: Resolved (3) ESRD (end stage renal disease) on dialysis Status: Chronic DS: Summary Hospital Course: While in hospital, patient was treated for 1. Shortness of breath/fluid overload/pulmonary edema-improved Patient seen after dialysis Appreciate input from nephrology Significantly elevated BNP 2. Elevated troponin Likely secondary to end-stage renal disease versus pulmonary congestion. Unlikely ACS EKG showed sinus tachycardia with no change from previous, no ST segment elevation or depression, personally reviewed Patient denies any chest pain 3. Hyperkalemia Resolved status post dialysis 4. End-stage renal disease/anemia Nephrology ff Continue with hemodialysis per protocol. Discussed with patient regarding the importance of compliance with hemodialysis Epogen per nephrology 5. Hypertension/CAD/CHF/COPD Duo nebs Continue home medications 6. Noncompliance Counseled patient as to the importance of compliance with his medications and dialysis schedule - Time Spent with Patient Total time spent providing and/or coordinating discharge services: Less than 30 minutes - Quality: VTE Deep Vein Thrombosis/Pulmonary Embolism Present on Admission: No Exam Vital signs: Vital Signs 11/30/17 12:00 11/30/17 16:00 11/30/17 20:00 Temperature 97.9 F 97.2 F L 97.9 F Pulse Rate 102 H 88 104 H Respiratory Rate 18 18 17 Blood Pressure 103/67 113/67 111/63 Pulse Oximetry 98 95 98 12/01/17 00:00 12/01/17 01:21 12/01/17 02:18 Temperature 97.8 F Pulse Rate 87 85 Respiratory Rate 17 Blood Pressure 116/71 Pulse Oximetry 96 96 12/01/17 04:00 12/01/17 08:00 12/01/17 08:15 Temperature 97.8 F 97.8 F Pulse Rate 90 101 H 90 Respiratory Rate 17 20 Blood Pressure 118/66 123/76 Pulse Oximetry 94 L 95 Intake & Output 11/30/17 12/01/17 12/01/17 18:59 06:59 18:59 Intake Total 1410 / 1410 Output Total 3000 / 3000 Balance -3000 / -3000 1410 / 1410 Weight 64.2 kg Intake: Oral 1410 / 1410 Output: Hemodialysis Amount 3000 / 3000 Other: # Voids 2 Narrative: GENERAL: NAD SKIN: Warm and dry. HEAD: Normocephalic. EYES: No scleral icterus. No injection or drainage. NECK: Supple, trachea midline. No JVD or lymphadenopathy. CARDIOVASCULAR: Regular rate and rhythm without murmurs, gallops, or rubs. RESPIRATORY: Breath sounds equal bilaterally. No accessory muscle use. GASTROINTESTINAL: Abdomen soft, non-tender, nondistended. MUSCULOSKELETAL: No cyanosis, or edema. BACK: Nontender without obvious deformity. No CVA tenderness. Results Procedures completed during hospitalization: None Labs on day of discharge: Labs from last 24 hours 11/30/17 10:00 Sodium 136 Potassium 4.0 D Chloride 96 L Carbon Dioxide 24.7 Anion Gap 15 BUN 48 H Creatinine 7.10 H Estimated GFR 10 L Random Glucose 122 H Calcium 9.0 Total Bilirubin 0.4 AST 29 ALT 22 Alkaline Phosphatase 77 Total Creatine Kinase 105 CK-MB (CK-2) 4.3 H Troponin I 0.13 H Total Protein 8.1 Albumin 3.3 L - Impressions ITS Impressions Chest X-Ray 11/28/17 14:37 CONCLUSION: Radiographic pattern suggesting intra-alveolar pulmonary edema. Discharge Plan - Discharge Disposition Patient Disposition: 01 Discharge Home - Discharge Condition Condition: Fair - Discharge Order Discharge Orders: Discharge Order (Routine); Ordered 12/01/17 Ordered By: Ozzie Lopez - Physicians Team Primary Care Provider: [facility] [place] Attending Provider: Ozzie Lopez Other Providers: Barber Peck MD
--- NOTE | 2017-12-01 15:34 | P.PNNP ---
Subjective Interval history: Patient seen in AM, alert, breathing is better, not in distress. Physical Exam Vital signs: Vital Signs 11/30/17 16:00 11/30/17 20:00 12/01/17 00:00 Temperature 97.2 F L 97.9 F 97.8 F Pulse Rate 88 104 H 87 Respiratory Rate 18 17 17 Blood Pressure 113/67 111/63 116/71 Pulse Oximetry 95 98 96 12/01/17 01:21 12/01/17 02:18 12/01/17 04:00 Temperature 97.8 F Pulse Rate 85 90 Respiratory Rate 17 Blood Pressure 118/66 Pulse Oximetry 96 94 L 12/01/17 08:00 12/01/17 08:15 12/01/17 12:00 Temperature 97.8 F 97.5 F L Pulse Rate 101 H 90 97 H Respiratory Rate 20 18 Blood Pressure 123/76 114/68 Pulse Oximetry 95 97 12/01/17 12:07 12/01/17 12:53 Temperature Pulse Rate 94 H 58 L Respiratory Rate 17 Blood Pressure Pulse Oximetry Intake & Output 11/30/17 12/01/17 12/01/17 18:59 06:59 18:59 Intake Total 1410 / 1410 Output Total 3000 / 3000 Balance -3000 / -3000 1410 / 1410 Weight 64.2 kg Intake: Oral 1410 / 1410 Output: Hemodialysis Amount 3000 / 3000 Other: # Voids 2 Narrative: GENERAL: NAD SKIN: Warm and dry. HEAD: Normocephalic. EYES: No scleral icterus. No injection or drainage. NECK: Supple, trachea midline. No JVD or lymphadenopathy. CARDIOVASCULAR: Regular rate and rhythm without murmurs, gallops, or rubs. RESPIRATORY: Breath sounds equal bilaterally. No accessory muscle use. GASTROINTESTINAL: Abdomen soft, non-tender, nondistended. MUSCULOSKELETAL: No cyanosis, or edema. BACK: Nontender without obvious deformity. No CVA tenderness. Assessment and Plan - Assessment (1) ESRD (end stage renal disease) on dialysis Code(s): N18.6 - End stage renal disease; Z99.2 - Dependence on renal dialysis Status: Chronic Plan: End stage renal disease Monday//Monday Presented with fluid overload and has hyperkalemia. Epogen with the dialysis. Shortness of breath has improved Hemodialysis yesterday with 3 liters removed. Fluid restriction and dialysis compliance discussed. Hemodialysis done yesterday. Told again to be compliant with fluid intake and HD treatment. (2) Pulmonary edema Code(s): J81.1 - Chronic pulmonary edema Status: Resolved Qualifiers: Chronicity: acute Qualified Code(s): J81.0 - Acute pulmonary edema Plan: Reports that shortness of breath has improved.
== END 2017-12-01 15:31 | disposition home or self-care (01) ==
LOC: NEPC 14:28 → NEDA 18:00 → N04 20:10
PROVIDERS: ADMIT Hospitalist; ATTEND Hospitalist

== ENCOUNTER 2017-12-16 19:22 | Observation (INO) ==
--- NOTE | 2017-12-16 19:51 | ED ---
HPI General Chief Complaint: Shortness of Breath/Dyspnea Stated Complaint: Medical/Phys Sent Time Seen by Provider: 12/16/17 19:45 History of Present Illness Patient is a 61 year old male with a past medical history of ESRD Dr Cisco Jacobo MD hypertension, diabetes, hx of cocaine use and hepatitits C, congestive heart failure with EF of 25-30%, hx of bradycardia and PEA arrest, and end stage renal disease on hemodialysis Monday, , and Monday. Presented to emergency room with worsening shortness of breath. Sent in with note from Provider Cisco to r/o dvt right leg . 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 His main complaint is right leg pain , BP 141/69 , nitro paste placed on chest . DVT studies ordered Related Data Home Medications Medication Instructions Recorded Confirmed aspirin [Aspirin Low Dose] 81 mg PO DAILY 11/28/17 12/16/17 cinacalcet [Sensipar] 30 mg PO BID 11/28/17 12/16/17 lisinopril 10 mg PO DAILY 11/28/17 12/16/17 metoprolol succinate 100 mg PO DAILY 11/28/17 12/16/17 spironolactone 25 mg PO DAILY 11/28/17 12/16/17 vit B comp no.8-jsvly-Q-biotin 1 tab PO DAILY 11/28/17 12/16/17 [Nephro-Rickie Rx] Allergies Allergy/AdvReac Type Severity Reaction Status Date / Time ibuprofen Allergy Severe Swelling Verified 11/28/17 14:36 Influenza Virus Vaccines Allergy Severe Swelling Verified 11/28/17 14:36 Sulfa (Sulfonamide Allergy Severe Rash Verified 11/28/17 14:36 Antibiotics) Review of Systems Except as stated in HPI: all other systems reviewed are negative [facility] Social History Social History Substance History: No History of Abuse Second Hand Smoke Exposure: Yes Smoking Status: Current every day smoker Tobacco Type: Cigarettes How Often Do You Have a Drink Containing Alcohol: Never Recent Travel in [facility] within the Last 8 Weeks: No Recent Out of Country Travel within the Last 8 Weeks: No Immunization History Tetanus Immunization: <5 Years Hx Influenza Vaccine This Season: Yes Exam Narrative Exam Narrative: GENERAL: Awake but listless fall asleep quickly but awake to voice and gives good history , daughter bedside , then awake moaning that he is in pain , denies SOB SKIN: Warm and dry. HEAD: Atraumatic. Normocephalic. EYES: Pupils equal and round. No scleral icterus. No injection or drainage. ENT: No nasal bleeding or discharge. Mucous membranes pink and moist. NECK: Trachea midline. No JVD. CARDIOVASCULAR: Regular rate and rhythm. RESPIRATORY: No accessory muscle use. Bibasilar crackles and diminished BS lower lobes bilaterally. GASTROINTESTINAL: Abdomen soft, non-tender, nondistended. Hepatic and splenic margins not palpable. MUSCULOSKELETAL: Extremities LEGS right > left swelling . pt has old right Knee surgery scar noted NEUROLOGICAL: Awake and alert. No obvious cranial nerve deficits. Motor grossly within normal limits. Five out of 5 muscle strength in the arms and legs. Normal speech. PSYCHIATRIC: Appropriate mood and affect; insight and judgment normal. Course Initial Documented Vital Signs Temperature 97.5 F L 12/16/17 19:27 Pulse Rate 117 H 12/16/17 19:27 Respiratory Rate 26 H 12/16/17 19:27 Blood Pressure 110/61 12/16/17 19:27 Pulse Oximetry 92 L 12/16/17 19:27 Last Documented Vital Signs Temperature 98.6 F 12/17/17 20:00 Pulse Rate 95 H 12/17/17 20:00 Respiratory Rate 19 12/17/17 20:00 Blood Pressure 132/84 12/17/17 20:00 Pulse Oximetry 96 12/17/17 20:00 Medical Decision Making [facility] Narrative Medical decision making narrative: XR cxr and labs and U/S of both lower legs , pleural effusion seen on right and worsening CHF reported . ceftriaxone and nitro paste to help diuresis and admitted , willneed dialysis in AM Differential Diagnosis Differential Diagnosis: SOB from fluid overload vs CHF cardiac failure due to EF low , vs underdialyzed today vs bronchitis vs PE vs other Lab Data Result diagrams: 12/17/17 06:25 12/17/17 06:25 Lab Results 12/16/17 12/16/17 12/16/17 Range/Units 19:45 19:45 19:45 WBC 4.6 (4.0-11.0) th/mm3 RBC 4.02 L (4.50-5.90) mil/mm3 Hgb 12.8 L (13.0-17.0) gm/dL Hct 38.9 L (39.0-51.0) % MCV 96.7 (80.0-100.0) fL MCH 31.8 (27.0-34.0) pg MCHC 32.9 (32.0-36.0) % RDW 16.4 (11.6-17.2) % Plt Count 167 (150-450) th/mm3 MPV 11.0 (7.0-11.0) fL Neut % (Auto) 70.1 H (16.0-70.0) % Lymph % (Auto) 13.2 (9.0-44.0) % [place] % (Auto) 13.4 H (0.0-8.0) % Eos % (Auto) 2.0 (0.0-4.0) % Baso % (Auto) 1.3 (0.0-2.0) % Neut # (Auto) 3.3 (1.8-7.7) th/mm3 Lymph # (Auto) 0.6 L (1.0-4.8) th/mm3 [place] # (Auto) 0.6 (0.0-0.9) th/mm3 Eos # (Auto) 0.1 (0.0-0.4) th/mm3 Baso # (Auto) 0.1 (0.0-0.2) th/mm3 WBC Differential . Differential Comment Auto diff final Sodium 139 (136-145) meq/L Potassium 4.2 (3.5-5.1) meq/L Chloride 100 (98-107) meq/L Carbon Dioxide 30.1 (21.0-32.0) meq/L Anion Gap 9 (5-15) meq/L BUN 29 H (7-18) mg/dL Creatinine 6.67 H (0.60-1.30) mg/dL Estimated GFR 10 L (>89) mL/min Random Glucose 76 (74-106) mg/dL Calcium 9.3 (8.5-10.1) mg/dL Total Bilirubin 0.4 (0.2-1.0) mg/dL AST 36 (15-37) U/L ALT 21 (12-78) U/L Alkaline Phosphatase 85 (45-117) U/L Troponin I 0.21 H (0.02-0.05) ng/mL Total Protein 8.7 H (6.4-8.2) g/dL Albumin 3.6 (3.4-5.0) g/dL Lipase 360 (73-393) U/L 12/17/17 12/17/17 12/17/17 Range/Units 01:18 06:25 06:25 WBC 4.2 (4.0-11.0) th/mm3 RBC 3.72 L (4.50-5.90) mil/mm3 Hgb 11.8 L (13.0-17.0) gm/dL Hct 36.5 L (39.0-51.0) % MCV 98.1 (80.0-100.0) fL MCH 31.8 (27.0-34.0) pg MCHC 32.4 (32.0-36.0) % RDW 16.4 (11.6-17.2) % Plt Count 146 L (150-450) th/mm3 MPV 11.2 H (7.0-11.0) fL Neut % (Auto) 69.0 (16.0-70.0) % Lymph % (Auto) 15.0 (9.0-44.0) % [place] % (Auto) 13.7 H (0.0-8.0) % Eos % (Auto) 1.5 (0.0-4.0) % Baso % (Auto) 0.8 (0.0-2.0) % Neut # (Auto) 2.9 (1.8-7.7) th/mm3 Lymph # (Auto) 0.6 L (1.0-4.8) th/mm3 [place] # (Auto) 0.6 (0.0-0.9) th/mm3 Eos # (Auto) 0.1 (0.0-0.4) th/mm3 Baso # (Auto) 0.0 (0.0-0.2) th/mm3 WBC Differential . Differential Comment Auto diff final Sodium 138 (136-145) meq/L Potassium 4.9 (3.5-5.1) meq/L Chloride 102 (98-107) meq/L Carbon Dioxide 29.7 (21.0-32.0) meq/L Anion Gap 6 (5-15) meq/L BUN 33 H (7-18) mg/dL Creatinine 7.31 H (0.60-1.30) mg/dL Estimated GFR 9 L (>89) mL/min Random Glucose 90 (74-106) mg/dL Calcium 9.0 (8.5-10.1) mg/dL Total Bilirubin 0.4 (0.2-1.0) mg/dL AST 26 (15-37) U/L ALT 17 (12-78) U/L Alkaline Phosphatase 59 (45-117) U/L Troponin I 0.20 H (0.02-0.05) ng/mL Total Protein 7.8 D (6.4-8.2) g/dL Albumin 3.1 L (3.4-5.0) g/dL Lipase (73-393) U/L 12/17/17 Range/Units 06:25 WBC (4.0-11.0) th/mm3 RBC (4.50-5.90) mil/mm3 Hgb (13.0-17.0) gm/dL Hct (39.0-51.0) % MCV (80.0-100.0) fL MCH (27.0-34.0) pg MCHC (32.0-36.0) % RDW (11.6-17.2) % Plt Count (150-450) th/mm3 MPV (7.0-11.0) fL Neut % (Auto) (16.0-70.0) % Lymph % (Auto) (9.0-44.0) % [place] % (Auto) (0.0-8.0) % Eos % (Auto) (0.0-4.0) % Baso % (Auto) (0.0-2.0) % Neut # (Auto) (1.8-7.7) th/mm3 Lymph # (Auto) (1.0-4.8) th/mm3 [place] # (Auto) (0.0-0.9) th/mm3 Eos # (Auto) (0.0-0.4) th/mm3 Baso # (Auto) (0.0-0.2) th/mm3 WBC Differential Differential Comment Sodium (136-145) meq/L Potassium (3.5-5.1) meq/L Chloride (98-107) meq/L Carbon Dioxide (21.0-32.0) meq/L Anion Gap (5-15) meq/L BUN (7-18) mg/dL Creatinine (0.60-1.30) mg/dL Estimated GFR (>89) mL/min Random Glucose (74-106) mg/dL Calcium (8.5-10.1) mg/dL Total Bilirubin (0.2-1.0) mg/dL AST (15-37) U/L ALT (12-78) U/L Alkaline Phosphatase (45-117) U/L Troponin I 0.19 H (0.02-0.05) ng/mL Total Protein (6.4-8.2) g/dL Albumin (3.4-5.0) g/dL Lipase (73-393) U/L Imaging Data Radiologist's impression: Chest X-Ray 12/16/17 19:45 CONCLUSION: Increasing congestive failure with consolidation and effusion on the right. Venous Doppler Study 12/16/17 19:57 CONCLUSION: 1. Negative for deep venous thrombosis 2. Moderate vascular calcifications. Discharge Plan Discharge Disposition Patient Disposition: 30 Still Patient Discharge Details Diagnosis: Fluid overload Physicians Team ED Provider: Justin Buckner Primary Care Provider: [facility] Attending Provider: Jefferson Acosta Other Providers: Barber Peck Status ED Status: Left Department Discharge Information Discharge Date/Time: 12/16/17 22:40
[2017-12-16 20:44] LABS: Baso # (Auto) 0.1 th/mm3 (0.0-0.2); Baso % (Auto) 1.3 % (0.0-2.0); Eos # (Auto) 0.1 th/mm3 (0.0-0.4); Hematocrit 38.9 % (39.0-51.0); Hemoglobin 12.8 gm/dL (13.0-17.0); Lymph # (Auto) 0.6 th/mm3 (1.0-4.8); Lymph % (Auto) 13.2 % (9.0-44.0); Mean Corpuscular HGB Conc 32.9 % (32.0-36.0); Mean Corpuscular Hemoglobin 31.8 pg (27.0-34.0); Mean Corpuscular Volume 96.7 fL (80.0-100.0); Mono # (Auto) 0.6 th/mm3 (0.0-0.9); Mono % (Auto) 13.4 % (0.0-8.0); Neut # (Auto) 3.3 th/mm3 (1.8-7.7); Neut % (Auto) 70.1 % (16.0-70.0); Platelet Count 167 th/mm3 (150-450); Red Blood Count 4.02 mil/mm3 (4.50-5.90); Red Cell Distribution Width 16.4 % (11.6-17.2); White Blood Count 4.6 th/mm3 (4.0-11.0)
--- NOTE | 2017-12-16 20:46 | XR ---
EXAM DATE: 12/16/2017 8:39 PM EDT AGE/SEX: 62 years / Male INDICATIONS: Short of Breath CLINICAL DATA: This is the patient's initial encounter. Patient reports that signs and symptoms have been present for 1 day and indicates a pain score of 0/10. MEDICAL/SURGICAL HISTORY: . Hypertension, diabetes, Hepatitis C, Congestive Heart Failure, End Stage Renal Failure, Bradycardia None. COMPARISON: [facility], CHEST 1V SINGLE AP, 11/28/2017. . FINDINGS: Compared to 11/28/2017 there is increasing interstitial edema with small right pleural effusion consol idation right base. Heart remains enlarged No effusion on the left. The portion of the bony skeleton visualized is unremarkable. CONCLUSION: Increasing congestive failure with consolidation and effusion on the right. Electronically signed by: Mikhail Abrams MD 12/16/2017 8:45 PM EDT
[2017-12-16] MEDS ORDERED: Morphine Inj 4 MG/ML Vial IV.PUSH ONE (20:57)
[2017-12-16 21:04] LABS: Albumin 3.6 g/dL (3.4-5.0); Anion Gap 9 meq/L (5-15); Aspartate Aminotransferase 36 U/L (15-37); Blood Urea Nitrogen 29 mg/dL (7-18); Calcium 9.3 mg/dL (8.5-10.1); Carbon Dioxide 30.1 meq/L (21.0-32.0); Chloride 100 meq/L (98-107); Glomerular Filtration Rate 10 mL/min (>89); Glucose,Random 76 mg/dL (74-106); Potassium 4.2 meq/L (3.5-5.1); Sodium 139 meq/L (136-145)
[2017-12-16 21:05] LABS: Alanine Aminotransferase 21 U/L (12-78)
--- NOTE | 2017-12-16 21:06 | US ---
EXAM DATE: 12/16/2017 8:59 PM EDT AGE/SEX: 62 years / Male INDICATIONS: Bilateral leg swelling. CLINICAL DATA: This is the patient's initial encounter. Patient reports that signs and symptoms have been present for 1 week and indicates a pain score of 4/10. MEDICAL/SURGICAL HISTORY: Hypertension. Hepatitis C. Congestive heart failure. Substance abuse . End stage renal disease. Dialysis. . AV fistula. COMPARISON: [facility] [place], US LEG BILATERAL VENOUS DOPPLER, 05/28/2016. . TECHNIQUE: Venous ultrasound of both lower extremities was performed from the inguinal ligament to t he proximal calf. Real-time, color Doppler and spectral tracing, compression and augmentation techni ques were used. FINDINGS: Right Leg: Normal compression of the deep venous system from the inguinal region to the proximal lacy f. No echogenic clot is seen. Normal response of the venous system to augmentation and respiration. Left Leg: Normal compression of the deep venous system from the inguinal region to the proximal calf . No echogenic clot is seen. Normal response of the venous system to augmentation and respiration. Other: None. CONCLUSION: 1. Negative for deep venous thrombosis 2. Moderate vascular calcifications. Electronically signed by: Mikhail Abrams MD 12/16/2017 9:04 PM EDT
[2017-12-16 21:08] LABS: Alkaline Phosphatase 85 U/L (45-117); Total Protein 8.7 g/dL (6.4-8.2); Troponin I 0.21 ng/mL (0.02-0.05)
[2017-12-16] MEDS ORDERED: Temazepam 15 MG Capsule PO PRN (21:48)
[2017-12-16] MEDS ORDERED: Bisacodyl 10 MG Supp RECTAL PRN (21:48)
[2017-12-16] MEDS ORDERED: Acetaminophen 325 MG Tablet PO PRN (21:48)
[2017-12-16] MEDS ORDERED: Morphine Inj 4 MG/ML Vial IV.PUSH PRN (21:49)
--- NOTE | 2017-12-16 21:50 | P.HPIM ---
History of Present Illness Primary Care Physician: [facility] History of Present Illness: This is a 62-year-old male with a PMH of HTN, CHF (Echo 09/17/2017 with EF 20-25% ), ESRD on HD T//S, DM, Hepatitis C and h/o Cocaine who was referred to the ER by Dr. Peck for evaluation of possible RLE DVT. Pt poor historian, but states he didn't complete dialysis today because his BP was low, reports significant SOB and worsening lower extremity edema x1-2 days. Denies fever, chills, cough or chest pain. On arrival, BP 141/80, HR 100, O2 sat 96% on RA, Afebrile. CBC unremarkable. Chemistry at baseline. Troponin 0.21, previously 0.13 on 11/30/2017. CXR with increasing congestive failure and consolidation/ effusion on the right. RLE Doppler negative for DVT. S/p Rocephin in ER. - Diagnosis (1) CHF (congestive heart failure) (2) PNA (pneumonia) (3) Elevated troponin (4) ESRD (end stage renal disease) on dialysis Review of Systems All other systems reviewed negative except as stated in HPI PMFSH - History History 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 - Medical History Medical History: Medical History (Last Reviewed 12/16/17 @ 19:32 by Jac Aldridge RN) Arteriovenous fistula for hemodialysis in place, primary CHF (congestive heart failure) Cocaine abuse Diabetes ESRD on dialysis HBP (high blood pressure) Hepatitis C - Tobacco History Second Hand Smoke Exposure: Yes Tobacco Use In Past 30 Days: Yes Smoking Status: Current every day smoker Tobacco Type: Cigarettes - Alcohol History How Often Do You Have a Drink Containing Alcohol: Never - Substance Use History Substance History: No History of Abuse - Travel History Recent Travel in the [place] Within the Last 8 Weeks: No Recent Travel Out of the Country Within the Last 8 Weeks: No - Immunization History Tetanus Immunization: <5 Years Hx Influenza Vaccine This Season: Yes Medications and Allergies Allergies Allergy/AdvReac Type Severity Reaction Status Date / Time ibuprofen Allergy Severe Swelling Verified 11/28/17 14:36 Influenza Virus Vaccines Allergy Severe Swelling Verified 11/28/17 14:36 Sulfa (Sulfonamide Allergy Severe Rash Verified 11/28/17 14:36 Antibiotics) Home Medications Medication Instructions Recorded Confirmed Type aspirin [Aspirin Low Dose] 81 mg PO DAILY 11/28/17 12/16/17 History cinacalcet [Sensipar] 30 mg PO BID 11/28/17 12/16/17 History lisinopril 10 mg PO DAILY 11/28/17 12/16/17 History metoprolol succinate 100 mg PO DAILY 11/28/17 12/16/17 History spironolactone 25 mg PO DAILY 11/28/17 12/16/17 History vit B comp no.8-svtpg-A-biotin 1 tab PO DAILY 11/28/17 12/16/17 History [Nephro-Rickie Rx] Exam Vital signs: Vital Signs 12/16/17 19:27 12/16/17 19:40 12/16/17 19:58 Temperature 97.5 F L Pulse Rate 117 H 100 H 114 H Respiratory Rate 26 H 20 Blood Pressure 110/61 141/80 H Pulse Oximetry 92 L 96 95 Intake & Output 12/16/17 12/16/17 12/17/17 06:59 18:59 06:59 Weight 72.575 kg Narrative: PE: GENERAL: Middle-aged black male in no acute distress, sleeping. HEENT: PERRLA, EOMI. No scleral icterus or conjunctival pallor. No lid lag or facial droop. CARDIOVASCULAR: Regular rate and rhythm. No obvious murmurs to auscultation. No chest tenderness to palpation. RESPIRATORY: No obvious rhonchi or wheezing, +crackles. Breath sounds equal bilaterally. GASTROINTESTINAL: Abdomen soft, non-tender, nondistended. BS normal. MUSCULOSKELETAL: Extremities without clubbing, cyanosis. +2edema, right greater than left. No obvious deformities. NEUROLOGICAL: Awake, alert and oriented x4. No focal neurologic deficits. Moving both upper and lower extremities spontaneously. Results - Labs CBC & Chem 7: 12/16/17 19:45 12/16/17 19:45 Labs: Short CBC 12/16/17 Range/Units 19:45 WBC 4.6 (4.0-11.0) th/mm3 Hgb 12.8 L (13.0-17.0) gm/dL Hct 38.9 L (39.0-51.0) % Plt Count 167 (150-450) th/mm3 BMP 12/16/17 19:45 Sodium 139 Potassium 4.2 Chloride 100 Carbon Dioxide 30.1 BUN 29 H Creatinine 6.67 H Calcium 9.3 Cardiac Enzymes 12/16/17 Range/Units 19:45 Troponin I 0.21 H (0.02-0.05) ng/mL Liver Function 12/16/17 Range/Units 19:45 Total Bilirubin 0.4 (0.2-1.0) mg/dL AST 36 (15-37) U/L ALT 21 (12-78) U/L Alkaline Phosphatase 85 (45-117) U/L Albumin 3.6 (3.4-5.0) g/dL - Imaging Impressions Chest X-Ray 12/16/17 19:45 CONCLUSION: Increasing congestive failure with consolidation and effusion on the right. Venous Doppler Study 12/16/17 19:57 CONCLUSION: 1. Negative for deep venous thrombosis 2. Moderate vascular calcifications. Caprini VTE Risk Assessment Caprini VTE Risk Assessment: No/Low Risk (score <= 1) Caprini Risk Assessment Model: Point Value = 1 Point Value = 2 Point Value = 3 Point Value = 5 Age 41-60 Minor surgery BMI > 25 kg/m2 Swollen legs Varicose veins or History of unexplained or recurrent spontaneous Oral contraceptives or hormone replacement Sepsis (< 1 month) Serious lung disease, including pneumonia (< 1 month) Abnormal pulmonary function Acute myocardial infarction Congestive heart failure (< 1 month) History of inflammatory bowel disease Medical patient at bed rest Age 61-74 Arthroscopic surgery Major open surgery (> 45 min) Laparoscopic surgery (> 45 min) Malignancy Confined to bed (> 72 hours) Immobilizing plaster cast Central venous access Age >= 75 History of VTE Family history of VTE Factor V Leiden Prothrombin [id number] Lupus anticoagulant Anticardiolipin antibodies Elevated serum homocysteine Heparin-induced thrombocytopenia Other congenital or acquired thrombophilia Stroke (< 1 month) Elective arthroplasty Hip, pelvis, or leg fracture Acute spinal cord injury (< 1 month) Prophylaxis Regimen: Total Risk Factor Score Risk Level Prophylaxis Regimen 0-1 Low Early ambulation 2 Moderate Order ONE of the following: *Sequential Compression Device (SCD) *Heparin 5000 units SQ BID 3-4 Higher Order ONE of the following medications: *Heparin 5000 units SQ TID *Enoxaparin/Lovenox 40 mg SQ daily (WT < 150 kg, CrCl > 30 mL/min) *Enoxaparin/Lovenox 30 mg SQ daily (WT < 150 kg, CrCl > 10-29 mL/min) *Enoxaparin/Lovenox 30 mg SQ BID (WT < 150 kg, CrCl > 30 mL/min) AND/OR *Sequential Compression Device (SCD) 5 or more Highest Order ONE of the following medications: *Heparin 5000 units SQ TID (Preferred with Epidurals) *Enoxaparin/Lovenox 40 mg SQ daily (WT < 150 kg, CrCl > 30 mL/min) *Enoxaparin/Lovenox 30 mg SQ daily (WT < 150 kg, CrCl > 10-29 mL/min) *Enoxaparin/Lovenox 30 mg SQ BID (WT < 150 kg, CrCl > 30 mL/min) AND *Sequential Compression Device (SCD) Assessment and Plan - Assessment (1) CHF (congestive heart failure) Code(s): I50.9 - Heart failure, unspecified Status: Acute (2) PNA (pneumonia) Code(s): J18.9 - Pneumonia, unspecified organism Status: Acute (3) Elevated troponin Code(s): R74.8 - Abnormal levels of other serum enzymes Status: Acute (4) ESRD (end stage renal disease) on dialysis Code(s): N18.6 - End stage renal disease; Z99.2 - Dependence on renal dialysis Status: Chronic - Plan A/P: 1. CHF: Acute on Chronic. Systolic. Echo 09/17/17 w/ EF 20-25%, CXR w/ increasing congestive failure, images reviewed, +anuria, will hold diuresis. No respiratory distress at this time. 2. ESRD on HD: T//, had HD today but incomplete due to low BP per patient, referred to ER by Dr. Peck for eval of possible DVT, RLE Doppler negative for DVT. +fluid overload, will consult Dr. Peck to resume HD in am. 3. Elevated Trop: Chronic. No c/o chest pain. Trop 0.21, will check serial cardiac enzymes for trend. 4. PNA: CXR w/ right-sided consolidation, denies cough but +SOB, will continue w/ IV Abx in light of multiple comorbidities. 5. DVT Prophylaxis: Heparin sq 6. Social work for d/c planning as needed 7. Case discussed w/ ER physician at length, labs/records/imaging reviewed by me.
[2017-12-17 06:51] LABS: Baso % (Auto) 0.8 % (0.0-2.0); Eos # (Auto) 0.1 th/mm3 (0.0-0.4); Eos % (Auto) 1.5 % (0.0-4.0); Hematocrit 36.5 % (39.0-51.0); Hemoglobin 11.8 gm/dL (13.0-17.0); Lymph # (Auto) 0.6 th/mm3 (1.0-4.8); Mean Corpuscular HGB Conc 32.4 % (32.0-36.0); Mean Corpuscular Hemoglobin 31.8 pg (27.0-34.0); Mean Corpuscular Volume 98.1 fL (80.0-100.0); Mean Platelet Volume 11.2 fL (7.0-11.0); Mono # (Auto) 0.6 th/mm3 (0.0-0.9); Mono % (Auto) 13.7 % (0.0-8.0); Neut # (Auto) 2.9 th/mm3 (1.8-7.7); Platelet Count 146 th/mm3 (150-450); Red Blood Count 3.72 mil/mm3 (4.50-5.90); Red Cell Distribution Width 16.4 % (11.6-17.2); White Blood Count 4.2 th/mm3 (4.0-11.0)
[2017-12-17 07:14] LABS: Albumin 3.1 g/dL (3.4-5.0); Anion Gap 6 meq/L (5-15); Aspartate Aminotransferase 26 U/L (15-37); Blood Urea Nitrogen 33 mg/dL (7-18); Carbon Dioxide 29.7 meq/L (21.0-32.0); Chloride 102 meq/L (98-107); Glomerular Filtration Rate 9 mL/min (>89); Glucose,Random 90 mg/dL (74-106); Potassium 4.9 meq/L (3.5-5.1); Sodium 138 meq/L (136-145)
[2017-12-17 07:15] LABS: Alanine Aminotransferase 17 U/L (12-78)
[2017-12-17 07:17] LABS: Alkaline Phosphatase 59 U/L (45-117); Total Protein 7.8 g/dL (6.4-8.2)
[2017-12-17] MEDS: Heparin - SQ 10,000 UNITS/ML Vial SQ SCH ×2 (08:49→21:17)
[2017-12-17] MEDS: Senna/Docusate Sodium 8.6/50 MG Tablet PO SCH ×2 (08:49→21:17)
[2017-12-17] MEDS ORDERED: Non-Formulary Drug (Metoprolol Succinate [Metoprolol Succinate] 100 MG) PO SCH (09:00)
[2017-12-17] MEDS ORDERED: Acetaminophen 325 MG Tablet PO PRN (12:05)
[2017-12-17] MEDS ORDERED: Sod Chloride 0.9% Inj 1,000 ML IV.CONT PRN (12:05)
[2017-12-17] MEDS ORDERED: Gelatin 12 MM/7 MM Topical Foam TOPICAL PRN (12:05)
[2017-12-17] MEDS ORDERED: Sod Chloride 0.9% Inj 1,000 ML OTHER PRN ×2 (12:05)
[2017-12-17] MEDS ORDERED: Heparin 10,000 UNITS/10 ML Vial (for IV use) OTHER PRN ×2 (12:05)
[2017-12-17] MEDS ORDERED: Albumin Human 25% Inj 100 ML IV.SIG PRN (12:05)
--- NOTE | 2017-12-17 12:31 | MB ---
cc: Barber Peck MD DATE: 12/17/2017 REASON FOR CONSULTATION: End-stage renal disease, on hemodialysis for management. HISTORY OF PRESENT ILLNESS: This is a 62-year-old male with a past medical history of ischemic heart disease, hypertension, congestive heart failure, chronic anemia, history of recurrent pleural effusion, diabetes mellitus, hepatitis C, history of noncompliance and history of end-stage renal disease on hemodialysis 3 times per week, came to the hospital because of worsening shortness of breath and swelling in the legs. The patient previously has history of pleural effusion and recurrent shortness of breath. He has been on hemodialysis, Monday, and Monday. He went for his dialysis yesterday and according to the patient, they were not able to remove too much fluid because of his cramping and possibly his blood pressure was also on the lower side. I saw him on in the outpatient clinic and I sent him for ultrasound of his right leg because his right leg was more swollen than the left leg. Unfortunately, the ultrasound was not done until he came to the hospital and it shows that he does not have any deep vein thrombosis. The patient denies any chest pain. His breathing is still the same, but when I saw him, he was sitting in the chair on room air, but he used 1 liter nasal cannula and saturation has been stable. PAST MEDICAL HISTORY: Hypertension, ischemic heart disease, congestive heart failure, chronic anemia, hepatitis C, history of cocaine abuse, diabetes mellitus, end-stage renal disease on hemodialysis 3 times per week. PAST SURGICAL HISTORY: History of AV fistula surgery, thoracentesis in the past. REVIEW OF SYSTEMS: Patient has generalized weakness, feeling tired, has worsening shortness of breath, more on exertion. There is no chest pain. No palpitation. No nausea or vomiting. He has cough which is mainly dry. There is no history of fever. No headache or dizziness. He is complaining of swelling in the legs. There is no nausea, vomiting. No abdominal pain. No history of diarrhea. SOCIAL HISTORY: The patient is , lives with his . He has history of smoking and also sometime used drugs like cocaine. Denies any alcoholism. FAMILY HISTORY: Noncontributory. ALLERGIES: HE IS ALLERGIC TO IBUPROFEN, SULFONAMIDE. MEDICATIONS: Currently, he is on following medications: 1. Fenwick as needed. 2. DuoNeb as needed. 3. Ecotrin 81 mg once a day. 4. Dulcolax as needed. 5. Sensipar 30 mg b.i.d. 6. Insulin. 7. Heparin 5000 units subcutaneous every 12 hours. 8. Lactulose 30 mL p.r.n. 9. Levaquin 500 mg every 48 hours. 10. Metoprolol 100 mg daily. 11. Morphine 2 mg IV q. 4 hours. 12. Zofran as needed. 13. Ayla-Colace as needed. 14. Senokot as needed. 15. Restoril as needed. PHYSICAL EXAMINATION: GENERAL: The patient is awake, alert. He is not in acute distress. VITAL SIGNS: His last blood pressure is 126/75, temperature 97.6, oxygen saturation 97% on 1 liter nasal cannula. HEENT: Pupils are mid constricted. Nonicteric sclerae. Conjunctivae normal. NECK: Supple. JVD is slightly elevated. LUNGS: The patient has bilateral decreased air entry with basal rales and scattered wheezing. HEART: S1, S2, regular rate and rhythm. ABDOMEN: Distended, soft, lax. There is no tenderness. EXTREMITIES: He has bilateral 2+ edema. LABORATORY DATA: WBC count is 4.2, hemoglobin 11.8, platelet count of 146, neutrophils 69%. Sodium 138, potassium 4.9, chloride 102, bicarbonate 29.7, BUN 33, creatinine 7.3, AST is 26, ALT 17. Troponin 0.19. Albumin is 3.1, total protein 7.8, lipase is 360. IMAGING STUDIES: The patient had Doppler of both legs done, which shows there is no deep vein thrombosis, moderate vascular calcification. Chest x-ray was done which shows an increasing vascular markings with effusion on the right side. ASSESSMENT AND PLAN: 1. Fluid overload status with edema. 2. Congestive heart failure. 3. End-stage renal disease on hemodialysis. 4. Elevated troponins. 5. Possible pneumonia. 6. History of noncompliance. The patient has fluid overload status and he has history of noncompliance with dialysis and fluid intake. I did discuss with the and the patient about decreasing the fluid intake. He had hemodialysis yesterday, so I will plan for shorter dialysis tomorrow and try to remove more fluid and then put him back on his regular days of Monday, and Monday. Thank you for the consultation, and I will follow the patient while he is in the hospital. Severo Peck MD AQJ/TL , 12:05 PM , 12:15 PM
--- NOTE | 2017-12-17 13:24 | P.PN ---
Subjective Interval history: Follow-up visit CHF with exacerbation, end-stage renal disease on hemodialysis Monday, , Monday, DM, hep C. Patient seen and examined today. Family member at the bedside. Patient states he continues to have shortness of breath. While on exam patient all of a sudden got out of bed and sit up and states that he gets very anxious and short of breath trying to take off his oxygen. Appears to be all anxiety related as patient was calm down and he was able to breathe a lot better. Denies pain and discomfort. Denies chest pain, palpitations, headaches, dizziness. Denies fevers, chills, n/v/d. As per patient family member, this is been an ongoing thing with the patient were and he would fall asleep sitting up and all of a sudden would wake up panicky, stating that he is severely short of breath or could not breathe. Physical Exam Vital signs: Vital Signs 12/16/17 19:27 12/16/17 19:40 12/16/17 19:58 Temperature 97.5 F L Pulse Rate 117 H 100 H 114 H Respiratory Rate 26 H 20 Blood Pressure 110/61 141/80 H Pulse Oximetry 92 L 96 95 12/16/17 22:27 12/16/17 23:57 12/17/17 04:00 Temperature 97.5 F L 97.6 F Pulse Rate 104 H 101 H 102 H Respiratory Rate 20 19 19 Blood Pressure 125/85 127/70 126/75 Pulse Oximetry 97 97 12/17/17 08:00 12/17/17 09:00 Temperature 97.3 F L Pulse Rate 119 H 119 H Respiratory Rate 20 Blood Pressure 128/73 Pulse Oximetry 92 L Intake & Output 12/16/17 12/17/17 12/17/17 18:59 06:59 18:59 Intake Total 0 / 0 Balance 0 / 0 Weight 72.6 kg Intake: Oral 0 / 0 Other: Weight On Admission 72.575 kg Narrative: GENERAL: This is a well-nourished, well-developed patient, in no apparent distress. SKIN: Warm and dry. HEENT: Normocephalic. Pupils equal round and reactive. Nose without bleeding. Airway patent. NECK: Trachea midline. CARDIOVASCULAR: Regular rate and rhythm without murmurs, gallops, or rubs. RESPIRATORY: Slightly diminished bases but no wheezes, rales, or rhonchi. No crackles heard. Moderate air entry. GASTROINTESTINAL: Abdomen soft, non-tender, nondistended. Bowel Sounds normoactive x4. MUSCULOSKELETAL: Extremities without clubbing, cyanosis. Bilateral lower extremity +1 edema NEUROLOGICAL: Awake and alert. Anxious. Moves all extremities. Normal speech. Results - Labs CBC & Chem 7: 12/17/17 06:25 12/17/17 06:25 Laboratory Results - last 24 hr 12/16/17 12/16/17 12/16/17 19:45 19:45 19:45 WBC 4.6 RBC 4.02 L Hgb 12.8 L Hct 38.9 L MCV 96.7 MCH 31.8 MCHC 32.9 RDW 16.4 Plt Count 167 MPV 11.0 Neut % (Auto) 70.1 H Lymph % (Auto) 13.2 [place] % (Auto) 13.4 H Eos % (Auto) 2.0 Baso % (Auto) 1.3 Neut # (Auto) 3.3 Lymph # (Auto) 0.6 L [place] # (Auto) 0.6 Eos # (Auto) 0.1 Baso # (Auto) 0.1 WBC Differential . Differential Comment Auto diff final Sodium 139 Potassium 4.2 Chloride 100 Carbon Dioxide 30.1 Anion Gap 9 BUN 29 H Creatinine 6.67 H Estimated GFR 10 L Random Glucose 76 Calcium 9.3 Total Bilirubin 0.4 AST 36 ALT 21 Alkaline Phosphatase 85 Troponin I 0.21 H Total Protein 8.7 H Albumin 3.6 Lipase 360 12/17/17 12/17/17 12/17/17 01:18 06:25 06:25 WBC 4.2 RBC 3.72 L Hgb 11.8 L Hct 36.5 L MCV 98.1 MCH 31.8 MCHC 32.4 RDW 16.4 Plt Count 146 L MPV 11.2 H Neut % (Auto) 69.0 Lymph % (Auto) 15.0 [place] % (Auto) 13.7 H Eos % (Auto) 1.5 Baso % (Auto) 0.8 Neut # (Auto) 2.9 Lymph # (Auto) 0.6 L [place] # (Auto) 0.6 Eos # (Auto) 0.1 Baso # (Auto) 0.0 WBC Differential . Differential Comment Auto diff final Sodium 138 Potassium 4.9 Chloride 102 Carbon Dioxide 29.7 Anion Gap 6 BUN 33 H Creatinine 7.31 H Estimated GFR 9 L Random Glucose 90 Calcium 9.0 Total Bilirubin 0.4 AST 26 ALT 17 Alkaline Phosphatase 59 Troponin I 0.20 H Total Protein 7.8 D Albumin 3.1 L Lipase 12/17/17 06:25 WBC RBC Hgb Hct MCV MCH MCHC RDW Plt Count MPV Neut % (Auto) Lymph % (Auto) [place] % (Auto) Eos % (Auto) Baso % (Auto) Neut # (Auto) Lymph # (Auto) [place] # (Auto) Eos # (Auto) Baso # (Auto) WBC Differential Differential Comment Sodium Potassium Chloride Carbon Dioxide Anion Gap BUN Creatinine Estimated GFR Random Glucose Calcium Total Bilirubin AST ALT Alkaline Phosphatase Troponin I 0.19 H Total Protein Albumin Lipase - Imaging Impressions Chest X-Ray 12/16/17 19:45 CONCLUSION: Increasing congestive failure with consolidation and effusion on the right. Venous Doppler Study 12/16/17 19:57 CONCLUSION: 1. Negative for deep venous thrombosis 2. Moderate vascular calcifications. Assessment and Plan - Assessment (1) CHF (congestive heart failure) Code(s): I50.9 - Heart failure, unspecified Status: Acute (2) PNA (pneumonia) Code(s): J18.9 - Pneumonia, unspecified organism Status: Acute (3) Elevated troponin Code(s): R74.8 - Abnormal levels of other serum enzymes Status: Acute (4) ESRD (end stage renal disease) on dialysis Code(s): N18.6 - End stage renal disease; Z99.2 - Dependence on renal dialysis Status: Chronic - Plan 62-year-old male with a PMH of HTN, CHF (Echo 09/17/2017 with EF 20-25%), ESRD on HD //, DM, Hepatitis C and h/o Cocaine who was referred to the ER by Dr. Peck for evaluation of possible RLE DVT. CHF, systolic Acute on Chronic -Echo 09/17/17 w/ EF 20-25% -CXR w/ increasing congestive failure -Anuria, will hold diuresis. -Anxiety noted, Ativan PRN -Nephrology to resume HD, HD nella and tues ESRD on HD -//, had HD today but incomplete due to low BP per patient -Referred to ER by Dr. Peck for eval of possible DVT -RLE Doppler negative -Resume HD in am. Elevated Trop,Chronic -No c/o chest pain. -Trop 0.21 --> 0.20 --> 0.19 this is passively secondary to end-stage renal disease PNA, CAP -CXR w/ right-sided consolidation -Denies cough but +SOB, will continue w/ IV Abx in light of multiple comorbidities. DVT Prophylaxis Heparin sq Code Status: Full code Discussed Condition With: Patient, , nursing Discharge Planning: DC when clinically improved. HD nella and [place]
[2017-12-17] MEDS: LORazepam 0.5 MG Tablet PO PRN (15:33)
[2017-12-18] MEDS: Heparin - SQ 10,000 UNITS/ML Vial SQ SCH ×2 (08:19→21:41)
[2017-12-18] MEDS: Senna/Docusate Sodium 8.6/50 MG Tablet PO SCH ×2 (08:20→21:41)
[2017-12-18 11:24] LABS: Baso # (Auto) 0.1 th/mm3 (0.0-0.2); Baso % (Auto) 1.3 % (0.0-2.0); Eos # (Auto) 0.1 th/mm3 (0.0-0.4); Eos % (Auto) 1.2 % (0.0-4.0); Hematocrit 40.5 % (39.0-51.0); Hemoglobin 13.1 gm/dL (13.0-17.0); Lymph % (Auto) 21.9 % (9.0-44.0); Mean Corpuscular HGB Conc 32.4 % (32.0-36.0); Mean Corpuscular Hemoglobin 31.2 pg (27.0-34.0); Mean Corpuscular Volume 96.5 fL (80.0-100.0); Mean Platelet Volume 10.4 fL (7.0-11.0); Mono # (Auto) 0.6 th/mm3 (0.0-0.9); Mono % (Auto) 12.4 % (0.0-8.0); Neut # (Auto) 2.9 th/mm3 (1.8-7.7); Neut % (Auto) 63.2 % (16.0-70.0); Platelet Count 162 th/mm3 (150-450); Red Cell Distribution Width 16.3 % (11.6-17.2); White Blood Count 4.5 th/mm3 (4.0-11.0)
[2017-12-18 11:46] LABS: Calcium 8.8 mg/dL (8.5-10.1); Carbon Dioxide 26.9 meq/L (21.0-32.0); Potassium 5.7 meq/L (3.5-5.1)
--- NOTE | 2017-12-18 13:58 | P.DCO ---
- Physical Therapy Order: Evaluate and treat - Home Health Nursing Order: Medical education, Signs/symptoms of disease process, Oxygen administration education, Medication education-adverse effect, Nursing assessment with vital signs - Certification I have seen patient Tenzin Bloom on 12/18/17. My clinical findings support the need for the requested home health care services because: Patient has SOB, Deconditioned with increased weakness, Medication compliance is questionable, Limited ability to care for self, High risk of falls I certify that my clinical findings support that this patient is homebound because: Hx COPD - exertion dyspnea/weakness, Unsteady gait/balance, Poor cardiac reserve
--- NOTE | 2017-12-18 14:41 | P.PNNP ---
Subjective Interval history: Patient seen in AM prior to hemodialysis. Reported feeling shortness of breath. Lethargic. <Skylar Paulino - Last Filed: 12/18/17 14:32> Physical Exam Vital signs: Vital Signs 12/17/17 16:00 12/17/17 20:00 12/17/17 23:00 Temperature 98 F 98.6 F Pulse Rate 95 H 95 H 95 H Respiratory Rate 22 19 Blood Pressure 108/69 132/84 Pulse Oximetry 96 96 12/18/17 00:00 12/18/17 04:00 12/18/17 08:00 Temperature 98.8 F 98.2 F 97.0 F L Pulse Rate 88 93 H 103 H Respiratory Rate 18 18 20 Blood Pressure 126/82 131/78 111/69 Pulse Oximetry 95 95 95 Intake & Output 12/17/17 12/18/17 12/18/17 18:59 06:59 18:59 Intake Total 1320 / 1320 Output Total 3 / 3 5000 / 5000 Balance 1317 / 1317 -5000 / -5000 Weight 72.5 kg Intake: Oral 1320 / 1320 Output: Urine 3 / 3 Hemodialysis Amount 5000 / 5000 Other: # Voids 1 Date of Last Bowel Movement 12/16/17 - Constitutional mild distress - Routine HEENT Exam Head: Present: normocephalic - Routine Neck Exam Present: supple, JVD - Routine Respiratory Exam Present: decreased breath sounds. Absent: rhonchi, wheezes - Routine Cardiovascular Exam Present: RRR - Routine Abdominal Exam Present: normoactive bowel sounds. Absent: tenderness - Routine Extremities Exam Present: edema, AV fistula - Routine Skin Exam Present: dry, warm - Routine Neurological Exam lethargic <Skylar Paulino - Last Filed: 12/18/17 14:32> Vital signs: Vital Signs 12/18/17 16:00 12/18/17 20:00 12/19/17 00:00 Temperature 98.0 F 98.1 F 98.8 F Pulse Rate 87 104 H 104 H Respiratory Rate 18 18 18 Blood Pressure 135/78 136/78 123/65 Pulse Oximetry 100 94 L 93 L 12/19/17 04:00 12/19/17 08:00 12/19/17 12:00 Temperature 98.6 F 97.2 F L 97.6 F Pulse Rate 88 84 97 H Respiratory Rate 18 18 16 Blood Pressure 120/66 93/53 L 103/59 L Pulse Oximetry 95 93 L 92 L Intake & Output 12/18/17 12/19/17 12/19/17 18:59 06:59 18:59 Output Total 5000 / 5000 3000 / 3000 Balance -5000 / -5000 -3000 / -3000 Weight 72.5 kg Output: Hemodialysis Amount 5000 / 5000 3000 / 3000 Other: # Voids 1 Date of Last Bowel Movement 12/16/17 <Barber Peck - Last Filed: 12/19/17 15:24> Assessment and Plan - Assessment (1) ESRD (end stage renal disease) on dialysis Code(s): N18.6 - End stage renal disease; Z99.2 - Dependence on renal dialysis Status: Chronic Plan: End stage renal disease on hemodialysis on Monday, , and Monday Has history of non compliance with hemodialysis and fluid restriction. Continue Sensipar Hyperkalemia at 5.7 will K bath adjusted with hemo dialysis Hemodialysis today with UF of 5 liters Hemodialysis tomorrow Labs in AM (2) CHF (congestive heart failure) Code(s): I50.9 - Heart failure, unspecified Status: Acute Plan: Hemodialysis today and then planned for tomorrow. Patient is anuric (3) PNA (pneumonia) Code(s): J18.9 - Pneumonia, unspecified organism Status: Acute Plan: Continue antibiotics <Skylar Paulino - Last Filed: 12/18/17 14:32> - Assessment (1) ESRD (end stage renal disease) on dialysis Code(s): N18.6 - End stage renal disease; Z99.2 - Dependence on renal dialysis Status: Chronic (2) CHF (congestive heart failure) Code(s): I50.9 - Heart failure, unspecified Status: Acute (3) PNA (pneumonia) Code(s): J18.9 - Pneumonia, unspecified organism Status: Acute - Attending Attestation Patient seen and examined, agree with above. Extra UF done today and 4 liters removed. HD again today on his regular day. <Barber Peck - Last Filed: 12/19/17 15:24>
--- NOTE | 2017-12-18 15:12 | P.PN ---
Subjective Interval history: Follow-up visit CHF with exacerbation, end-stage renal disease on hemodialysis Monday, , Monday, DM, hep C. Patient seen and examined today. Status post dialysis with 5 L fluid removed as per nursing. Patient states he is very hungry and having hiccups. Complains of mild cough. States he has no fever. States he is feeling a lot better and improving with his shortness of breath. Denies chest pain, fevers or chills, nausea, vomiting. Physical Exam Vital signs: Vital Signs 12/17/17 16:00 12/17/17 20:00 12/17/17 23:00 Temperature 98 F 98.6 F Pulse Rate 95 H 95 H 95 H Respiratory Rate 22 19 Blood Pressure 108/69 132/84 Pulse Oximetry 96 96 12/18/17 00:00 12/18/17 04:00 12/18/17 08:00 Temperature 98.8 F 98.2 F 97.0 F L Pulse Rate 88 93 H 103 H Respiratory Rate 18 18 20 Blood Pressure 126/82 131/78 111/69 Pulse Oximetry 95 95 95 Intake & Output 12/17/17 12/18/17 12/18/17 18:59 06:59 18:59 Intake Total 1320 / 1320 Output Total 3 / 3 5000 / 5000 Balance 1317 / 1317 -5000 / -5000 Weight 72.5 kg Intake: Oral 1320 / 1320 Output: Urine 3 / 3 Hemodialysis Amount 5000 / 5000 Other: # Voids 1 Date of Last Bowel Movement 12/16/17 Narrative: GENERAL: This is a well-nourished, well-developed patient, in no apparent distress. SKIN: Warm and dry. HEENT: Normocephalic. Pupils equal round and reactive. Nose without bleeding. Airway patent. NECK: Trachea midline. CARDIOVASCULAR: Regular rate and rhythm without murmurs, gallops, or rubs. RESPIRATORY: Slightly diminished bases but no wheezes, rales, or rhonchi. No crackles heard. Moderate air entry. GASTROINTESTINAL: Abdomen soft, non-tender, nondistended. Bowel Sounds normoactive x4. MUSCULOSKELETAL: Extremities without clubbing, cyanosis. Bilateral lower extremity +1 edema NEUROLOGICAL: Awake and alert. Anxious. Moves all extremities. Normal speech. Results - Labs CBC & Chem 7: 12/18/17 11:00 12/18/17 11:00 Laboratory Results - last 24 hr 12/18/17 12/18/17 12/18/17 11:00 11:00 12:54 WBC 4.5 RBC 4.20 L Hgb 13.1 Hct 40.5 MCV 96.5 MCH 31.2 MCHC 32.4 RDW 16.3 Plt Count 162 MPV 10.4 Neut % (Auto) 63.2 Lymph % (Auto) 21.9 [place] % (Auto) 12.4 H Eos % (Auto) 1.2 Baso % (Auto) 1.3 Neut # (Auto) 2.9 Lymph # (Auto) 1.0 [place] # (Auto) 0.6 Eos # (Auto) 0.1 Baso # (Auto) 0.1 WBC Differential . Differential Comment Auto diff final Sodium 137 Potassium 5.7 H D Chloride 102 Carbon Dioxide 26.9 Anion Gap 8 BUN 39 H Creatinine 7.41 H Estimated GFR 9 L POC Glucose 115 H Random Glucose 127 H Calcium 8.8 - Procedures None Assessment and Plan - Assessment (1) CHF (congestive heart failure) Code(s): I50.9 - Heart failure, unspecified Status: Acute (2) PNA (pneumonia) Code(s): J18.9 - Pneumonia, unspecified organism Status: Acute (3) Elevated troponin Code(s): R74.8 - Abnormal levels of other serum enzymes Status: Acute (4) ESRD (end stage renal disease) on dialysis Code(s): N18.6 - End stage renal disease; Z99.2 - Dependence on renal dialysis Status: Chronic - Plan 62-year-old male with a PMH of HTN, CHF (Echo 09/17/2017 with EF 20-25%), ESRD on HD //, DM, Hepatitis C and h/o Cocaine who was referred to the ER by Dr. Peck for evaluation of possible RLE DVT. CHF, systolic Acute on Chronic -Echo 09/17/17 w/ EF 20-25% -CXR w/ increasing congestive failure -Anuria, hold diuresis. -Anxiety noted, Ativan PRN -Nephrology to resume HD, HD 5L removed today, plan for HD nella -Improved ESRD on HD -//, had HD today but incomplete due to low BP per patient -Referred to ER by Dr. Pekc for eval of possible DVT -RLE Doppler negative -Resume HD in am. Elevated Trop,Chronic -No c/o chest pain. -Trop 0.21 --> 0.20 --> 0.19 this possible secondary to end-stage renal disease PNA, CAP -CXR w/ right-sided consolidation -Denies cough but +SOB, will continue w/ IV Abx in light of multiple comorbidities. DVT Prophylaxis Heparin sq Code Status: Full code Discussed Condition With: Patient, nursing Discharge Planning: DC when clinically improved. HD nella and [place]
[2017-12-18] MEDS: guaiFENesin 600 MG ER Tablet PO SCH ×2 (16:53→21:41)
[2017-12-18] MEDS: Levofloxacin 500 mg Premix Inj 500 MG/100 ML PIGGYBACK IV.SIG SCH (21:42)
[2017-12-19 07:50] LABS: Albumin 3.2 g/dL (3.4-5.0); Calcium 8.7 mg/dL (8.5-10.1); Phosphorus 4.5 mg/dL (2.5-4.9); Potassium 5.5 meq/L (3.5-5.1)
--- NOTE | 2017-12-19 11:35 | P.PNNP ---
Subjective Interval history: Seen during hemodialysis. Shortness of breath has improved. Resting comfortably. <Skylar Paulino - Last Filed: 12/19/17 11:26> Physical Exam Vital signs: Vital Signs 12/18/17 12:00 12/18/17 16:00 12/18/17 20:00 Temperature 98.0 F 98.1 F Pulse Rate 90 87 104 H Respiratory Rate 18 18 Blood Pressure 135/78 136/78 Pulse Oximetry 100 94 L 12/19/17 00:00 12/19/17 04:00 Temperature 98.8 F 98.6 F Pulse Rate 104 H 88 Respiratory Rate 18 18 Blood Pressure 123/65 120/66 Pulse Oximetry 93 L 95 Intake & Output 12/18/17 12/19/17 12/19/17 18:59 06:59 18:59 Output Total 5000 / 5000 3000 / 3000 Balance -5000 / -5000 -3000 / -3000 Weight 72.5 kg Output: Hemodialysis Amount 5000 / 5000 3000 / 3000 Other: # Voids 1 Date of Last Bowel Movement 12/16/17 - Constitutional no acute distress - Routine HEENT Exam Head: Present: normocephalic - Routine Neck Exam Present: supple - Routine Respiratory Exam Present: decreased breath sounds. Absent: rales, rhonchi, wheezes - Routine Cardiovascular Exam Present: RRR - Routine Abdominal Exam Present: soft, normoactive bowel sounds. Absent: tenderness - Routine Extremities Exam Present: AV fistula. Absent: edema - Routine Skin Exam Present: dry, warm - Routine Neurological Exam Present: alert, oriented X3 - Routine Psychiatric Exam Present: cooperative <Skylar Paulino - Last Filed: 12/19/17 11:26> Vital signs: Vital Signs 12/18/17 20:00 12/19/17 00:00 12/19/17 04:00 Temperature 98.1 F 98.8 F 98.6 F Pulse Rate 104 H 104 H 88 Respiratory Rate 18 18 18 Blood Pressure 136/78 123/65 120/66 Pulse Oximetry 94 L 93 L 95 12/19/17 08:00 12/19/17 12:00 12/19/17 16:00 Temperature 97.2 F L 97.6 F 97.5 F L Pulse Rate 84 97 H 64 Respiratory Rate 18 16 20 Blood Pressure 93/53 L 103/59 L 116/64 Pulse Oximetry 93 L 92 L 95 12/19/17 17:11 Temperature Pulse Rate Respiratory Rate 16 Blood Pressure Pulse Oximetry Intake & Output 12/18/17 12/19/17 12/19/17 18:59 06:59 18:59 Intake Total 720 / 720 Output Total 5000 / 5000 3000 / 3000 Balance -5000 / -5000 -2280 / -2280 Weight 72.5 kg Intake: Oral 720 / 720 Output: Hemodialysis Amount 5000 / 5000 3000 / 3000 Other: # Voids 1 Date of Last Bowel Movement 12/16/17 # Bowel Movements 0 <Barber Peck - Last Filed: 12/19/17 18:00> Assessment and Plan - Assessment (1) ESRD (end stage renal disease) on dialysis Code(s): N18.6 - End stage renal disease; Z99.2 - Dependence on renal dialysis Status: Chronic Plan: End stage renal disease on hemodialysis on Monday, , and Monday Has history of non compliance with hemodialysis and fluid restriction. Continue Sensipar Hemodialysis yesterday with UF of 5 liters Hyperkalemia improving at 5.5,hemodialysis today. Hemodialysis today with removal of 3 liters of fluid tolerated well. (2) CHF (congestive heart failure) Code(s): I50.9 - Heart failure, unspecified Status: Acute Plan: Patient is anuric and shortness of breath has improved. (3) PNA (pneumonia) Code(s): J18.9 - Pneumonia, unspecified organism Status: Acute Plan: Continue antibiotics <Skylar Paulino - Last Filed: 12/19/17 11:26> - Assessment (1) ESRD (end stage renal disease) on dialysis Code(s): N18.6 - End stage renal disease; Z99.2 - Dependence on renal dialysis Status: Chronic (2) CHF (congestive heart failure) Code(s): I50.9 - Heart failure, unspecified Status: Acute (3) PNA (pneumonia) Code(s): J18.9 - Pneumonia, unspecified organism Status: Acute - Attending Attestation Patient seen and examined, agree with above. HD done in AM. Told to restrict with fluid and be compliant with HD. <Barber Peck - Last Filed: 12/19/17 18:00>
[2017-12-19] MEDS: guaiFENesin 600 MG ER Tablet PO SCH ×2 (12:30→20:01)
[2017-12-19] MEDS: Senna/Docusate Sodium 8.6/50 MG Tablet PO SCH ×2 (12:30→20:00)
[2017-12-19] MEDS: Heparin - SQ 10,000 UNITS/ML Vial SQ SCH ×2 (13:20→20:01)
--- NOTE | 2017-12-19 16:10 | P.PN ---
Physical Exam Vital signs: Vital Signs 12/18/17 20:00 12/19/17 00:00 12/19/17 04:00 Temperature 98.1 F 98.8 F 98.6 F Pulse Rate 104 H 104 H 88 Respiratory Rate 18 18 18 Blood Pressure 136/78 123/65 120/66 Pulse Oximetry 94 L 93 L 95 12/19/17 08:00 12/19/17 12:00 Temperature 97.2 F L 97.6 F Pulse Rate 84 97 H Respiratory Rate 18 16 Blood Pressure 93/53 L 103/59 L Pulse Oximetry 93 L 92 L Intake & Output 12/18/17 12/19/17 12/19/17 18:59 06:59 18:59 Output Total 5000 / 5000 3000 / 3000 Balance -5000 / -5000 -3000 / -3000 Weight 72.5 kg Output: Hemodialysis Amount 5000 / 5000 3000 / 3000 Other: # Voids 1 Date of Last Bowel Movement 12/16/17 Narrative: Subjective Interval history: Follow-up visit CHF with exacerbation, end-stage renal disease on hemodialysis Monday, , Monday, DM, hep C. The patient is in bed he appears weak. Family also at bedside. Patient is a he feels a little bit improved today. No more shortness of breath he is saturating fairly well on room air. No nausea or vomiting eating fairly well. No diarrhea no constipation. No abdominal pain. Denies any chest pain or palpitations. Physical Exam GENERAL: This is a pleasant 62 yo male, in nad, well-nourished, well-developed patient. CARDIOVASCULAR: Regular rate and rhythm without murmurs, gallops, or rubs. RESPIRATORY: Slightly diminished bases but no wheezes, rales, or rhonchi. No crackles heard. Moderate air entry. GASTROINTESTINAL: Abdomen soft, non-tender, nondistended. Bowel Sounds normoactive x4. MUSCULOSKELETAL: Extremities without clubbing, cyanosis. Bilateral lower extremity +1 edema NEUROLOGICAL: Awake and alert. Anxious. Moves all extremities. Normal speech. Assessment and Plan 62-year-old male with a PMH of HTN, CHF (Echo 09/17/2017 with EF 20-25%), ESRD on HD T//, DM, Hepatitis C and h/o Cocaine who was referred to the ER by Dr. Peck for evaluation of possible RLE DVT. CHF, systolic Acute on Chronic -Echo 09/17/17 w/ EF 20-25% -CXR w/ increasing congestive failure -Anuria, hold diuresis. -Anxiety noted, Ativan PRN -Nephrology to resume HD, HD 5L removed today, plan for HD nella -Improved ESRD on HD -T//, had HD today but incomplete due to low BP per patient -Referred to ER by Dr. Peck for eval of possible DVT -RLE Doppler negative -Resume HD in am. Elevated Trop,Chronic -No c/o chest pain. -Trop 0.21 --> 0.20 --> 0.19 this possible secondary to end-stage renal disease PNA, CAP -CXR w/ right-sided consolidation -Denies cough but +SOB, will continue w/ IV Abx in light of multiple comorbidities. DVT Prophylaxis Heparin sq Code Status: Full code Discussed Condition With: Patient, nursing Discharge Planning: DC when clinically improved and cleared by consultants. HD per nephro Results - Labs CBC & Chem 7: 12/18/17 11:00 12/19/17 06:54 Laboratory Results - last 24 hr 12/19/17 06:54 Sodium 136 Potassium 5.5 H Chloride 97 L Carbon Dioxide 29.0 Anion Gap 10 BUN 39 H Creatinine 8.01 H Estimated GFR 8 L Random Glucose 102 Calcium 8.7 Phosphorus 4.5 Albumin 3.2 L - Procedures None Assessment and Plan - Assessment (1) CHF (congestive heart failure) Code(s): I50.9 - Heart failure, unspecified Status: Acute (2) PNA (pneumonia) Code(s): J18.9 - Pneumonia, unspecified organism Status: Acute (3) Elevated troponin Code(s): R74.8 - Abnormal levels of other serum enzymes Status: Acute (4) ESRD (end stage renal disease) on dialysis Code(s): N18.6 - End stage renal disease; Z99.2 - Dependence on renal dialysis Status: Chronic
[2017-12-20] MEDS: Senna/Docusate Sodium 8.6/50 MG Tablet PO SCH ×2 (08:28→22:35)
[2017-12-20] MEDS: guaiFENesin 600 MG ER Tablet PO SCH ×2 (08:28→22:35)
[2017-12-20] MEDS: Heparin - SQ 10,000 UNITS/ML Vial SQ SCH ×2 (08:28→22:35)
--- NOTE | 2017-12-20 16:41 | P.PN ---
Physical Exam Vital signs: Vital Signs 12/19/17 17:11 12/19/17 20:00 12/20/17 00:00 Temperature 97.6 F 97.9 F Pulse Rate 93 H 79 Respiratory Rate 16 16 16 Blood Pressure 92/56 L 98/60 L Pulse Oximetry 94 L 95 12/20/17 00:03 12/20/17 03:47 12/20/17 04:00 Temperature 98.0 F Pulse Rate 94 H 94 H 74 Respiratory Rate 14 Blood Pressure 108/69 Pulse Oximetry 96 12/20/17 07:27 12/20/17 08:00 12/20/17 12:00 Temperature 97.2 F L 98.6 F Pulse Rate 93 H 94 H 97 H Respiratory Rate 20 24 Blood Pressure 120/56 L 103/58 L Pulse Oximetry 98 99 Intake & Output 12/19/17 12/20/17 12/20/17 18:59 06:59 18:59 Intake Total 720 / 720 Output Total 3000 / 3000 Balance -2280 / -2280 Intake: Oral 720 / 720 Output: Hemodialysis Amount 3000 / 3000 Other: Post Void Residual 250 Date of Last Bowel Movement 12/16/17 12/16/17 # Bowel Movements 0 Narrative: Subjective Interval history: Follow-up visit CHF with exacerbation, end-stage renal disease on hemodialysis Monday, , Monday, DM, hep C. The patient is in bed he appears weak. More pain in his legs no DVT per US vitals are sable Physical Exam GENERAL: This is a pleasant 62 yo male, in nad, well-nourished, well-developed patient. CARDIOVASCULAR: Regular rate and rhythm without murmurs, gallops, or rubs. RESPIRATORY: Slightly diminished bases but no wheezes, rales, or rhonchi. No crackles heard. Moderate air entry. GASTROINTESTINAL: Abdomen soft, non-tender, nondistended. Bowel Sounds normoactive x4. MUSCULOSKELETAL: Extremities without clubbing, cyanosis. Bilateral lower extremity +1 edema NEUROLOGICAL: Awake and alert. Anxious. Moves all extremities. Normal speech. Assessment and Plan 62-year-old male with a PMH of HTN, CHF (Echo 09/17/2017 with EF 20-25%), ESRD on HD T//, DM, Hepatitis C and h/o Cocaine who was referred to the ER by Dr. Peck for evaluation of possible RLE DVT. CHF, systolic Acute on Chronic -Echo 09/17/17 w/ EF 20-25% -CXR w/ increasing congestive failure -Anuria, hold diuresis. -Anxiety noted, Ativan PRN -Nephrology to resume HD, HD 5L removed today, plan for HD nella -Improved ESRD on HD -T//, had HD today but incomplete due to low BP per patient -Referred to ER by Dr. Peck for eval of possible DVT -RLE Doppler negative -Resume HD in am. Elevated Trop,Chronic -No c/o chest pain. -Trop 0.21 --> 0.20 --> 0.19 this possible secondary to end-stage renal disease PNA, CAP -CXR w/ right-sided consolidation -Denies cough but +SOB, will continue w/ IV Abx in light of multiple comorbidities. DVT Prophylaxis Heparin sq Code Status: Full code Discussed Condition With: Patient, nursing Discharge Planning: DC when clinically improved and cleared by consultants. HD per nephro POss DC tomorrow if improved Results - Labs CBC & Chem 7: 12/18/17 11:00 12/19/17 06:54 - Procedures None Assessment and Plan - Assessment (1) CHF (congestive heart failure) Code(s): I50.9 - Heart failure, unspecified Status: Acute (2) PNA (pneumonia) Code(s): J18.9 - Pneumonia, unspecified organism Status: Acute (3) Elevated troponin Code(s): R74.8 - Abnormal levels of other serum enzymes Status: Acute (4) ESRD (end stage renal disease) on dialysis Code(s): N18.6 - End stage renal disease; Z99.2 - Dependence on renal dialysis Status: Chronic
--- NOTE | 2017-12-20 17:02 | P.PNNP ---
Subjective Interval history: Sitting up in bed. No complaints. Denies shortness of breath. <Skylar Paulino - Last Filed: 12/20/17 17:00> Physical Exam Vital signs: Vital Signs 12/19/17 17:11 12/19/17 20:00 12/20/17 00:00 Temperature 97.6 F 97.9 F Pulse Rate 93 H 79 Respiratory Rate 16 16 16 Blood Pressure 92/56 L 98/60 L Pulse Oximetry 94 L 95 12/20/17 00:03 12/20/17 03:47 12/20/17 04:00 Temperature 98.0 F Pulse Rate 94 H 94 H 74 Respiratory Rate 14 Blood Pressure 108/69 Pulse Oximetry 96 12/20/17 07:27 12/20/17 08:00 12/20/17 12:00 Temperature 97.2 F L 98.6 F Pulse Rate 93 H 94 H 97 H Respiratory Rate 20 24 Blood Pressure 120/56 L 103/58 L Pulse Oximetry 98 99 Intake & Output 12/19/17 12/20/17 12/20/17 18:59 06:59 18:59 Intake Total 720 / 720 Output Total 3000 / 3000 Balance -2280 / -2280 Intake: Oral 720 / 720 Output: Hemodialysis Amount 3000 / 3000 Other: Post Void Residual 250 Date of Last Bowel Movement 12/16/17 12/16/17 # Bowel Movements 0 - Constitutional no acute distress - Routine HEENT Exam Head: Present: normocephalic ENT: Present: mucous membranes moist - Routine Neck Exam Present: supple. Absent: JVD - Routine Respiratory Exam Present: decreased breath sounds. Absent: rales, rhonchi - Routine Cardiovascular Exam Present: RRR. Absent: murmur - Routine Abdominal Exam Present: soft, normoactive bowel sounds. Absent: tenderness - Routine Extremities Exam Present: AV fistula. Absent: edema - Routine Skin Exam Present: intact, dry, warm - Routine Neurological Exam Present: alert, oriented X3 - Routine Psychiatric Exam Present: cooperative <Skylar Paulino - Last Filed: 12/20/17 17:00> Vital signs: Vital Signs 12/19/17 20:00 12/20/17 00:00 12/20/17 00:03 Temperature 97.6 F 97.9 F Pulse Rate 93 H 79 94 H Respiratory Rate 16 16 Blood Pressure 92/56 L 98/60 L Pulse Oximetry 94 L 95 12/20/17 03:47 12/20/17 04:00 12/20/17 07:27 Temperature 98.0 F Pulse Rate 94 H 74 93 H Respiratory Rate 14 Blood Pressure 108/69 Pulse Oximetry 96 12/20/17 08:00 12/20/17 12:00 Temperature 97.2 F L 98.6 F Pulse Rate 94 H 97 H Respiratory Rate 20 24 Blood Pressure 120/56 L 103/58 L Pulse Oximetry 98 99 Intake & Output 12/19/17 12/20/17 12/20/17 18:59 06:59 18:59 Intake Total 720 / 720 Output Total 3000 / 3000 Balance -2280 / -2280 Intake: Oral 720 / 720 Output: Hemodialysis Amount 3000 / 3000 Other: Post Void Residual 250 Date of Last Bowel Movement 12/16/17 12/16/17 # Bowel Movements 0 <Barber Peck - Last Filed: 12/20/17 18:22> Assessment and Plan - Assessment (1) ESRD (end stage renal disease) on dialysis Code(s): N18.6 - End stage renal disease; Z99.2 - Dependence on renal dialysis Status: Chronic Plan: End stage renal disease on hemodialysis on Monday, , and Monday Has history of non compliance with hemodialysis and fluid restriction. Continue Sensipar Hemodialysis yesterday with removal of 3 liters of fluid Plan for hemodialysis tomorrow. (2) CHF (congestive heart failure) Code(s): I50.9 - Heart failure, unspecified Status: Acute Plan: Patient is anuric and shortness of breath has improved. (3) PNA (pneumonia) Code(s): J18.9 - Pneumonia, unspecified organism Status: Acute Plan: Continue antibiotics <Skylar Paulino - Last Filed: 12/20/17 17:00> - Assessment (1) ESRD (end stage renal disease) on dialysis Code(s): N18.6 - End stage renal disease; Z99.2 - Dependence on renal dialysis Status: Chronic Plan: Patient seen and examined, agree with above. HD to continue TTS. Told to restrict fluid intake and be compliant with HD. (2) CHF (congestive heart failure) Code(s): I50.9 - Heart failure, unspecified Status: Acute (3) PNA (pneumonia) Code(s): J18.9 - Pneumonia, unspecified organism Status: Acute <Barber Peck - Last Filed: 12/20/17 18:22>
[2017-12-20] MEDS: Levofloxacin 500 mg Premix Inj 500 MG/100 ML PIGGYBACK IV.SIG SCH (22:35)
[2017-12-20] MEDS: LORazepam 0.5 MG Tablet PO PRN (23:31)
[2017-12-21 05:57] VITALS: RESP 18; O2SAT 99
[2017-12-21 07:45] LABS: Baso # (Auto) 0.1 th/mm3 (0.0-0.2); Baso % (Auto) 1.3 % (0.0-2.0); Eos % (Auto) 0.9 % (0.0-4.0); Hematocrit 40.8 % (39.0-51.0); Hemoglobin 12.9 gm/dL (13.0-17.0); Lymph # (Auto) 0.7 th/mm3 (1.0-4.8); Lymph % (Auto) 16.2 % (9.0-44.0); Mean Corpuscular HGB Conc 31.6 % (32.0-36.0); Mean Corpuscular Hemoglobin 31.2 pg (27.0-34.0); Mean Corpuscular Volume 98.5 fL (80.0-100.0); Mean Platelet Volume 11.6 fL (7.0-11.0); Mono # (Auto) 0.7 th/mm3 (0.0-0.9); Mono % (Auto) 15.6 % (0.0-8.0); Platelet Count 176 th/mm3 (150-450); Red Blood Count 4.14 mil/mm3 (4.50-5.90); Red Cell Distribution Width 16.9 % (11.6-17.2); White Blood Count 4.5 th/mm3 (4.0-11.0)
[2017-12-21 08:27] LABS: Calcium 7.9 mg/dL (8.5-10.1); Carbon Dioxide 26.4 meq/L (21.0-32.0)
[2017-12-21] MEDS: Senna/Docusate Sodium 8.6/50 MG Tablet PO SCH (08:57)
[2017-12-21] MEDS: Heparin - SQ 10,000 UNITS/ML Vial SQ SCH (08:57)
[2017-12-21] MEDS: guaiFENesin 600 MG ER Tablet PO SCH (08:57)
[2017-12-21 09:35] VITALS: BP 108/58; PULSE 84; TEMP 97.4
--- NOTE | 2017-12-21 09:51 | P.DS ---
Date of admission: 12/16/17 21:49 Primary care physician: [facility] Brief History from admission: This is a 62-year-old male with a PMH of HTN, CHF (Echo 09/17/2017 with EF 20-25% ), ESRD on HD /, DM, Hepatitis C and h/o Cocaine who was referred to the ER by Dr. Peck for evaluation of possible RLE DVT. Pt poor historian, but states he didn't complete dialysis today because his BP was low, reports significant SOB and worsening lower extremity edema x1-2 days. Denies fever, chills, cough or chest pain. On arrival, BP 141/80, HR 100, O2 sat 96% on RA, Afebrile. CBC unremarkable. Chemistry at baseline. Troponin 0.21, previously 0.13 on 11/30/2017. CXR with increasing congestive failure and consolidation/ effusion on the right. RLE Doppler negative for DVT. S/p Rocephin in ER. DS: Diagnosis - Discharge Diagnosis (1) CHF (congestive heart failure) Status: Acute (2) PNA (pneumonia) Status: Acute (3) Elevated troponin Status: Acute (4) ESRD (end stage renal disease) on dialysis Status: Chronic DS: Summary Hospital Course: 62-year-old male with a PMH of HTN, CHF (Echo 09/17/2017 with EF 20-25%), ESRD on HD /, DM, Hepatitis C and h/o Cocaine who was referred to the ER by Dr. Peck for evaluation of possible RLE DVT. CHF, systolic Acute on Chronic -Echo 09/17/17 w/ EF 20-25% -CXR w/ increasing congestive failure -Anuria, hold diuresis. -Anxiety noted, Ativan PRN -Nephrology to resume HD, HD 5L removed today, plan for HD nella -Improved ESRD on HD -, had HD today but incomplete due to low BP per patient -Referred to ER by Dr. Peck for eval of possible DVT -RLE Doppler negative -Resume HD in am. Elevated Trop,Chronic -No c/o chest pain. -Trop 0.21 --> 0.20 --> 0.19 this possible secondary to end-stage renal disease PNA, CAP -CXR w/ right-sided consolidation -Denies cough but +SOB, will continue w/ IV Abx in light of multiple comorbidities. DVT Prophylaxis Heparin sq Code Status: Full code Discussed Condition With: Patient, nursing Discharge Planning: DC when clinically improved and cleared by consultants. HD per nephro Improved, DC in stable condition to follow up as OP with PCP and consultants - Time Spent with Patient Total time spent providing and/or coordinating discharge services: Greater than 30 minutes - Quality: VTE Deep Vein Thrombosis/Pulmonary Embolism Present on Admission: No Exam Vital signs: Vital Signs 12/20/17 12:00 12/20/17 16:00 12/20/17 19:18 Temperature 98.6 F 97.1 F L 97.2 F L Pulse Rate 97 H 92 H 85 Respiratory Rate 24 23 17 Blood Pressure 103/58 L 100/62 116/58 L Pulse Oximetry 99 97 97 12/20/17 19:53 12/20/17 20:00 12/20/17 23:02 Temperature 98.4 F Pulse Rate 90 113 H Respiratory Rate 18 Blood Pressure 132/67 Pulse Oximetry 94 L 98 12/20/17 23:42 12/20/17 23:44 12/21/17 00:00 Temperature Pulse Rate 85 86 Respiratory Rate 23 Blood Pressure Pulse Oximetry 96 12/21/17 03:14 12/21/17 04:10 12/21/17 08:00 Temperature 98.1 F 97.4 F L Pulse Rate 87 88 84 Respiratory Rate 18 18 Blood Pressure 106/55 L 108/58 L Pulse Oximetry 99 Intake & Output 12/20/17 12/21/17 12/21/17 18:59 06:59 18:59 Intake Total 480 / 480 460 / 460 Balance 480 / 480 460 / 460 Weight 72.5 kg Intake: IV 100 / 100 Levaquin 500 mg Premix Inj 500 100 / 100 mg In 100 ml @ 100 mls/hr IV. SIG Q48H BILL Rx#:[id number] Oral 480 / 480 360 / 360 Other: # Voids 1 Date of Last Bowel Movement 12/16/17 12/16/17 # Bowel Movements 0 Narrative: GENERAL: This is a pleasant 62 yo male, in nad, well-nourished, well-developed patient. CARDIOVASCULAR: Regular rate and rhythm without murmurs, gallops, or rubs. RESPIRATORY: Slightly diminished bases but no wheezes, rales, or rhonchi. No crackles heard. Moderate air entry. GASTROINTESTINAL: Abdomen soft, non-tender, nondistended. Bowel Sounds normoactive x4. MUSCULOSKELETAL: Extremities without clubbing, cyanosis. Bilateral lower extremity +1 edema NEUROLOGICAL: Awake and alert. Anxious. Moves all extremities. Normal speech. Results Procedures completed during hospitalization: None Labs on day of discharge: Labs from last 24 hours 12/21/17 12/21/17 06:47 06:47 WBC 4.5 RBC 4.14 L Hgb 12.9 L Hct 40.8 MCV 98.5 MCH 31.2 MCHC 31.6 L RDW 16.9 Plt Count 176 MPV 11.6 H Neut % (Auto) 66.0 Lymph % (Auto) 16.2 [place] % (Auto) 15.6 H Eos % (Auto) 0.9 Baso % (Auto) 1.3 Neut # (Auto) 3.0 Lymph # (Auto) 0.7 L [place] # (Auto) 0.7 Eos # (Auto) 0.0 Baso # (Auto) 0.1 WBC Differential . Differential Comment Auto diff final Sodium 139 Potassium 6.0 H Chloride 101 Carbon Dioxide 26.4 Anion Gap 12 BUN 51 H Creatinine 8.90 H Estimated GFR 7 L Random Glucose 96 Calcium 7.9 L D - Impressions ITS Impressions Chest X-Ray 12/16/17 19:45 CONCLUSION: Increasing congestive failure with consolidation and effusion on the right. Venous Doppler Study 12/16/17 19:57 CONCLUSION: 1. Negative for deep venous thrombosis 2. Moderate vascular calcifications. Discharge Plan - Discharge Disposition Patient Disposition: W/Home Health Service - Discharge Condition Condition: Stable - Discharge Order Discharge Orders: Discharge Order (Routine); Ordered 12/21/17 Ordered By: Yesi Boss - Discharge Details Anticipated Discharge Date: 12/21/17 - Physicians Team Primary Care Provider: [facility] Attending Provider: Yesi Boss Other Providers: Barber Peck MD
--- NOTE | 2017-12-21 10:07 | P.PNNP ---
Subjective Interval history: No complaints. Plan for hemodialysis today. <Skylar Paulino - Last Filed: 12/21/17 10:02> Physical Exam Vital signs: Vital Signs 12/20/17 12:00 12/20/17 16:00 12/20/17 19:18 Temperature 98.6 F 97.1 F L 97.2 F L Pulse Rate 97 H 92 H 85 Respiratory Rate 24 23 17 Blood Pressure 103/58 L 100/62 116/58 L Pulse Oximetry 99 97 97 12/20/17 19:53 12/20/17 20:00 12/20/17 23:02 Temperature 98.4 F Pulse Rate 90 113 H Respiratory Rate 18 Blood Pressure 132/67 Pulse Oximetry 94 L 98 12/20/17 23:42 12/20/17 23:44 12/21/17 00:00 Temperature Pulse Rate 85 86 Respiratory Rate 23 Blood Pressure Pulse Oximetry 96 12/21/17 03:14 12/21/17 04:10 12/21/17 08:00 Temperature 98.1 F 97.4 F L Pulse Rate 87 88 84 Respiratory Rate 18 18 Blood Pressure 106/55 L 108/58 L Pulse Oximetry 99 Intake & Output 12/20/17 12/21/17 12/21/17 18:59 06:59 18:59 Intake Total 480 / 480 460 / 460 Balance 480 / 480 460 / 460 Weight 72.5 kg Intake: IV 100 / 100 Levaquin 500 mg Premix Inj 500 100 / 100 mg In 100 ml @ 100 mls/hr IV. SIG Q48H BILL Rx#:[id number] Oral 480 / 480 360 / 360 Other: # Voids 1 Date of Last Bowel Movement 12/16/17 12/16/17 # Bowel Movements 0 - Constitutional no acute distress - Routine HEENT Exam Head: Present: normocephalic ENT: Present: mucous membranes moist - Routine Neck Exam Present: supple. Absent: JVD - Routine Respiratory Exam Present: decreased breath sounds. Absent: rales, rhonchi - Routine Cardiovascular Exam Present: RRR - Routine Abdominal Exam Present: soft, normoactive bowel sounds - Routine Extremities Exam Present: AV fistula. Absent: edema - Routine Skin Exam Present: dry, warm - Routine Neurological Exam Present: alert, oriented X3 - Routine Psychiatric Exam Present: cooperative <Skylar Paulino - Last Filed: 12/21/17 10:02> Vital signs: Vital Signs 12/20/17 19:18 12/20/17 19:53 12/20/17 20:00 Temperature 97.2 F L Pulse Rate 85 90 Respiratory Rate 17 Blood Pressure 116/58 L Pulse Oximetry 97 94 L 12/20/17 23:02 12/20/17 23:42 12/20/17 23:44 Temperature 98.4 F Pulse Rate 113 H 85 Respiratory Rate 18 23 Blood Pressure 132/67 Pulse Oximetry 98 96 12/21/17 00:00 12/21/17 03:14 12/21/17 04:10 Temperature 98.1 F Pulse Rate 86 87 88 Respiratory Rate 18 Blood Pressure 106/55 L Pulse Oximetry 99 12/21/17 08:00 Temperature 97.4 F L Pulse Rate 84 Respiratory Rate 18 Blood Pressure 108/58 L Pulse Oximetry Intake & Output 12/21/17 12/21/17 12/22/17 06:59 18:59 06:59 Intake Total 460 / 460 Output Total 2500 / 2500 Balance 460 / 460 -2500 / -2500 Weight 72.5 kg Intake: IV 100 / 100 Levaquin 500 mg Premix Inj 500 100 / 100 mg In 100 ml @ 100 mls/hr IV. SIG Q48H BILL Rx#:[id number] Oral 360 / 360 Output: Hemodialysis Amount 2500 / 2500 Other: # Voids 1 Date of Last Bowel Movement 12/16/17 12/16/17 # Bowel Movements 0 <Valentín Peck Q - Last Filed: 12/21/17 19:02> Assessment and Plan - Assessment (1) ESRD (end stage renal disease) on dialysis Code(s): N18.6 - End stage renal disease; Z99.2 - Dependence on renal dialysis Status: Chronic Plan: End stage renal disease on hemodialysis on Monday, , and Monday Has history of non compliance with hemodialysis and fluid restriction. Continue Sensipar Hemodialysis today will remove fluids as tolerated Hyperkalemia at 6.0 will adjust K bath with dialysis and give one dose of veltassa. Plan for discharge home today. (2) CHF (congestive heart failure) Code(s): I50.9 - Heart failure, unspecified Status: Acute Plan: Patient is anuric and shortness of breath has improved. (3) PNA (pneumonia) Code(s): J18.9 - Pneumonia, unspecified organism Status: Acute Plan: Continue antibiotics <Skylar Paulino - Last Filed: 12/21/17 10:02> - Assessment (1) ESRD (end stage renal disease) on dialysis Code(s): N18.6 - End stage renal disease; Z99.2 - Dependence on renal dialysis Status: Chronic (2) CHF (congestive heart failure) Code(s): I50.9 - Heart failure, unspecified Status: Acute (3) PNA (pneumonia) Code(s): J18.9 - Pneumonia, unspecified organism Status: Acute - Attending Attestation Patient seen during HD, and examine, agree with above. HD done in AM. Told to be compliant with HD and fluid intake. <Barber Peck - Last Filed: 12/21/17 19:02>
== END 2017-12-21 17:16 | disposition home health service (06) ==
LOC: N06 19:22 → NEPE 19:22 → INTOOBSV 21:49 → NEDA 21:49 → N06 22:40
PROVIDERS: ADMIT Hospitalist; ATTEND Hospitalist
DX: Z88.7 Allergy status to serum and vaccine; Z99.2 Dependence on renal dialysis; N18.6 End stage renal disease; I50.23 Acute on chronic systolic (congestive) heart failure; Z88.2 Allergy status to sulfonamides; Z86.74 Personal history of sudden cardiac arrest; Z79.82 Long term (current) use of aspirin; E11.22 Type 2 diabetes mellitus with diabetic chronic kidney disease; F41.9 Anxiety disorder, unspecified; J18.9 Pneumonia, unspecified organism; F17.210 Nicotine dependence, cigarettes, uncomplicated; I12.0 Hypertensive chronic kidney disease with stage 5 chronic kidney disease or end stage renal disease; E87.5 Hyperkalemia; Z99.81 Dependence on supplemental oxygen; B19.20 Unspecified viral hepatitis C without hepatic coma; I25.9 Chronic ischemic heart disease, unspecified; Z91.19 Patient's noncompliance with other medical treatment and regimen

== ENCOUNTER 2018-01-19 11:33 | Observation (INO) ==
--- NOTE | 2018-01-19 12:41 | XR ---
EXAM DATE: 01/19/2018 12:36 PM EDT AGE/SEX: 62 years / Male INDICATIONS: . Shortness of breath. CLINICAL DATA: This is the patient's initial encounter. Patient reports that signs and symptoms have been present for 3 days and indicates a pain score of 0/10. MEDICAL/SURGICAL HISTORY: . Hypertension, diabetes, Hepatitis C, Congestive Heart Failure, End Stage Renal Failure, Bradycardia. None. COMPARISON: No prior exams available for comparison. FINDINGS: A small to moderate-sized right pleural effusion is noted. Tiny left pleural effusion is noted. Moder ate pulmonary vascular congestion is noted. The heart is significantly enlarged. Vascular stents are noted within the subclavian/axillary region and upper arm on the left. CONCLUSION: 1. Small moderate-sized right pleural effusion and tiny left pleural effusion. 2. Significantly enlarged heart. 3. Moderate pulmonary vascular congestion. Electronically signed by: Enzo Price MD 01/19/2018 12:39 PM EDT
--- NOTE | 2018-01-19 13:08 | ED ---
HPI General Chief complaint: Respiratory Symptoms Stated complaint: SOB Time Seen by Provider: 01/19/18 12:19 Source: patient and EMS Mode of arrival: EMS Limitations: no limitations History of Present Illness HPI narrative: 62-year-old male the presents to the ED for evaluation of shortness of breath. [facility] to having found pleural effusion on the ball of his lungs. Patient had a [facility] and [facility] to come here. Patient was brought here for evaluation of this. Patient does have a significant history of CHF with ejection fraction less than 20%. Patient also is in ESRD patient and last received dialysis yesterday. Patient follows with Dr. Peck for his nephrology. He denies any chest pain and per patient he feels slightly short of breath. He states that he has had to have drainage of the fluid in the past and per patient is was about 2 months ago. From her medical records patient has been here at least once a month for evaluation of similar. He does have a history of hepatitis as well as cocaine abuse in the past. Patient denies any pain in his only complaint is that he would like something to eat. Related Data Home Medications Medication Instructions Recorded Confirmed aspirin [Aspirin Low Dose] 81 mg PO DAILY 11/28/17 01/19/18 cinacalcet [Sensipar] 30 mg PO BID 11/28/17 01/19/18 lisinopril 10 mg PO DAILY 11/28/17 01/19/18 metoprolol succinate 100 mg PO DAILY 11/28/17 01/19/18 spironolactone 25 mg PO DAILY 11/28/17 01/19/18 vit B comp no.5-lxcfo-E-biotin 1 tab PO DAILY 11/28/17 01/19/18 [Nephro-Rickie Rx] Allergies Allergy/AdvReac Type Severity Reaction Status Date / Time ibuprofen Allergy Severe Swelling Verified 01/19/18 12:34 Influenza Virus Vaccines Allergy Severe Swelling Verified 01/19/18 12:34 Sulfa (Sulfonamide Allergy Severe Rash Verified 01/19/18 12:34 Antibiotics) Review of Systems ROS: all other systems reviewed are negative [facility] Medical History Medical History Arteriovenous fistula for hemodialysis in place, primary (Acute) CHF (congestive heart failure) (Acute) Cocaine abuse (Acute) Diabetes (Acute) ESRD on dialysis (Acute) HBP (high blood pressure) (Acute) Hepatitis C (Acute) Social History Social History Substance History: No History of Abuse Second Hand Smoke Exposure: No Smoking Status: Former smoker Tobacco Type: Cigarettes How Often Do You Have a Drink Containing Alcohol: Never Recent Travel in [facility] within the Last 8 Weeks: No Recent Out of Country Travel within the Last 8 Weeks: No Immunization History Tetanus Immunization: <5 Years Hx Influenza Vaccine This Season: No Exam Narrative Exam Narrative: GENERAL: Well groomed SKIN: Focused skin assessment warm/dry. HEAD: Atraumatic. Normocephalic. EYES: Pupils equal and round. No scleral icterus. No injection or drainage. ENT: No nasal bleeding or discharge. Mucous membranes pink and moist. NECK: Trachea midline. No JVD. CARDIOVASCULAR: Regular rate and rhythm. No murmur appreciated. RESPIRATORY: No accessory muscle use. Rales heard especially on the right lower and left lower lung. Breath sounds equal bilaterally. GASTROINTESTINAL: Abdomen soft, non-tender, nondistended. Hepatic and splenic margins not palpable. MUSCULOSKELETAL: No obvious deformities. No clubbing. No cyanosis. No edema. Full range of motion of the upper and lower extremities. 2+ pulses bilaterally. Patient has a fistula on the left arm. NEUROLOGICAL: Awake and alert. No obvious cranial nerve deficits. Motor grossly within normal limits. Normal speech. PSYCHIATRIC: Appropriate mood and affect; insight and judgment normal. Course Initial Documented Vital Signs Temperature 98.4 F 01/19/18 12:35 Pulse Rate 91 H 01/19/18 12:35 Respiratory Rate 18 01/19/18 12:35 Blood Pressure 138/68 01/19/18 12:35 Pulse Oximetry 99 01/19/18 12:35 Last Documented Vital Signs Temperature 98.4 F 01/19/18 12:35 Pulse Rate 97 H 01/19/18 13:00 Respiratory Rate 20 01/19/18 13:25 Blood Pressure 157/79 H 01/19/18 13:00 Pulse Oximetry 97 01/19/18 13:25 Medical Decision Making MDM Narrative Medical decision making narrative: 62-year-old male the presents to the ED for evaluation of pleural effusions. Patient was properly examined and was found to have signs and symptoms consistent appears to be pleural effusions likely CHF exacerbation. Review the patient's medical record. He was just here at the beginning of the month for similar. From the notes I do not see that he had a thoracocentesis at that time. He did seem to have a thoracocentesis in November however. Patient did have dialysis when he was seen and seemed to improve some of the symptoms. At this time labs and imaging were ordered. We will redo the chest x-ray here. Labs and imaging showed bilateral pleural effusions with right being worse than the left as well as what appears to be severe BNP elevation. This appears likely to be chronic. Patient's troponin slightly elevated but appears to be at baseline. At this time accommodations for admission for further evaluation. Case was discussed with the grain sacker on- call for Dr. Peck, Dr Forbes, who will dialyze the patient. Because of significant pleural effusion accommodations for admission for observation evaluation to ensure that shortness of breath improves. Patient is agreement with this. Case discussed with my attending who agrees with plan. Case discussed with Dr. Boss who agrees admission to her service. Medical Screen Exam Complete: Yes Emergency Medical Condition: Yes Differential Diagnosis Differential Diagnosis: Pleural effusion versus CHF exacerbation versus ESRD versus pneumonia Medical Records Medical records reviewed: Yes I reviewed the patient's medical records. Lab Data Lab results reviewed: Yes I reviewed the patient's lab results. Lab results narrative: troponin slightly elevated BNP > 5000 Result diagrams: 01/19/18 13:00 01/19/18 13:00 Lab Results 01/19/18 01/19/18 01/19/18 Range/Units 13:00 13:00 13:00 WBC 4.7 (4.0-11.0) th/mm3 RBC 4.31 L (4.50-5.90) mil/mm3 Hgb 13.6 (13.0-17.0) gm/dL Hct 41.0 (39.0-51.0) % MCV 95.2 (80.0-100.0) fL MCH 31.5 (27.0-34.0) pg MCHC 33.1 (32.0-36.0) % RDW 16.5 (11.6-17.2) % Plt Count 121 L D (150-450) th/mm3 MPV 10.4 (7.0-11.0) fL Neut % (Auto) 64.8 (16.0-70.0) % Lymph % (Auto) 15.9 (9.0-44.0) % [place] % (Auto) 16.3 H (0.0-8.0) % Eos % (Auto) 2.0 (0.0-4.0) % Baso % (Auto) 1.0 (0.0-2.0) % Neut # (Auto) 3.0 (1.8-7.7) th/mm3 Lymph # (Auto) 0.7 L (1.0-4.8) th/mm3 [place] # (Auto) 0.8 (0.0-0.9) th/mm3 Eos # (Auto) 0.1 (0.0-0.4) th/mm3 Baso # (Auto) 0.0 (0.0-0.2) th/mm3 WBC Differential . Differential Comment Auto diff final PT (9.8-11.6) sec INR Ratio APTT (24.3-30.1) sec Sodium 140 (136-145) meq/L Potassium 3.9 (3.5-5.1) meq/L Chloride 101 (98-107) meq/L Carbon Dioxide 31.0 (21.0-32.0) meq/L Anion Gap 8 (5-15) meq/L BUN 22 H (7-18) mg/dL Creatinine 5.83 H (0.60-1.30) mg/dL Estimated GFR 12 L (>89) mL/min Random Glucose 81 (74-106) mg/dL Calcium 8.9 (8.5-10.1) mg/dL Total Bilirubin 0.5 (0.2-1.0) mg/dL AST 22 (15-37) U/L ALT 16 (12-78) U/L Alkaline Phosphatase 62 (45-117) U/L Total Creatine Kinase (39-308) U/L CK-MB (CK-2) (0.5-3.6) ng/mL Troponin I 0.12 H (0.02-0.05) ng/mL B-Natriuretic Peptide Greater than 5000 H (0-100) pg/mL Total Protein 8.8 H (6.4-8.2) g/dL Albumin 3.5 (3.4-5.0) g/dL 01/19/18 01/19/18 Range/Units 13:00 13:00 WBC (4.0-11.0) th/mm3 RBC (4.50-5.90) mil/mm3 Hgb (13.0-17.0) gm/dL Hct (39.0-51.0) % MCV (80.0-100.0) fL MCH (27.0-34.0) pg MCHC (32.0-36.0) % RDW (11.6-17.2) % Plt Count (150-450) th/mm3 MPV (7.0-11.0) fL Neut % (Auto) (16.0-70.0) % Lymph % (Auto) (9.0-44.0) % [place] % (Auto) (0.0-8.0) % Eos % (Auto) (0.0-4.0) % Baso % (Auto) (0.0-2.0) % Neut # (Auto) (1.8-7.7) th/mm3 Lymph # (Auto) (1.0-4.8) th/mm3 [place] # (Auto) (0.0-0.9) th/mm3 Eos # (Auto) (0.0-0.4) th/mm3 Baso # (Auto) (0.0-0.2) th/mm3 WBC Differential Differential Comment PT 11.3 (9.8-11.6) sec INR 1.1 Ratio APTT 27.3 (24.3-30.1) sec Sodium (136-145) meq/L Potassium (3.5-5.1) meq/L Chloride (98-107) meq/L Carbon Dioxide (21.0-32.0) meq/L Anion Gap (5-15) meq/L BUN (7-18) mg/dL Creatinine (0.60-1.30) mg/dL Estimated GFR (>89) mL/min Random Glucose (74-106) mg/dL Calcium (8.5-10.1) mg/dL Total Bilirubin (0.2-1.0) mg/dL AST (15-37) U/L ALT (12-78) U/L Alkaline Phosphatase (45-117) U/L Total Creatine Kinase 107 (39-308) U/L CK-MB (CK-2) 3.5 (0.5-3.6) ng/mL Troponin I (0.02-0.05) ng/mL B-Natriuretic Peptide (0-100) pg/mL Total Protein (6.4-8.2) g/dL Albumin (3.4-5.0) g/dL Imaging Data Attestation: I personally reviewed and interpreted this imaging study as follows : Radiologist's impression: Chest X-Ray 01/19/18 12:21 CONCLUSION: 1. Small moderate-sized right pleural effusion and tiny left pleural effusion. 2. Significantly enlarged heart. 3. Moderate pulmonary vascular congestion. Discharge Plan Discharge Disposition Patient Disposition: 30 Still Patient Discharge Details Diagnosis: CHF (congestive heart failure), ESRD (end stage renal disease) on dialysis, Pleural effusion Physicians Team ED Provider: Deana Lopez ED Midlevel Provider: Zay Egan Primary Care Provider: [facility] Attending Provider: Yesi Boss Status ED Status: Admitted Observation Patient
[2018-01-19 13:18] LABS: Eos # (Auto) 0.1 th/mm3 (0.0-0.4); Hemoglobin 13.6 gm/dL (13.0-17.0); Lymph # (Auto) 0.7 th/mm3 (1.0-4.8); Lymph % (Auto) 15.9 % (9.0-44.0); Mean Corpuscular HGB Conc 33.1 % (32.0-36.0); Mean Corpuscular Hemoglobin 31.5 pg (27.0-34.0); Mean Corpuscular Volume 95.2 fL (80.0-100.0); Mean Platelet Volume 10.4 fL (7.0-11.0); Mono # (Auto) 0.8 th/mm3 (0.0-0.9); Mono % (Auto) 16.3 % (0.0-8.0); Neut % (Auto) 64.8 % (16.0-70.0); Platelet Count 121 th/mm3 (150-450); Red Blood Count 4.31 mil/mm3 (4.50-5.90); Red Cell Distribution Width 16.5 % (11.6-17.2); White Blood Count 4.7 th/mm3 (4.0-11.0)
[2018-01-19 13:30] LABS: Activated Partial Thrombo Time 27.3 sec (24.3-30.1); INR 1.1 Ratio; Prothrombin Time 11.3 sec (9.8-11.6)
[2018-01-19 13:44] LABS: Alanine Aminotransferase 16 U/L (12-78); Albumin 3.5 g/dL (3.4-5.0); Anion Gap 8 meq/L (5-15); Aspartate Aminotransferase 22 U/L (15-37); Blood Urea Nitrogen 22 mg/dL (7-18); Calcium 8.9 mg/dL (8.5-10.1); Chloride 101 meq/L (98-107); Glomerular Filtration Rate 12 mL/min (>89); Glucose,Random 81 mg/dL (74-106); Potassium 3.9 meq/L (3.5-5.1); Sodium 140 meq/L (136-145)
[2018-01-19 13:48] LABS: Alkaline Phosphatase 62 U/L (45-117); Total Protein 8.8 g/dL (6.4-8.2); Troponin I 0.12 ng/mL (0.02-0.05)
[2018-01-19 13:55] LABS: Creatine Kinase 107 U/L (39-308)
[2018-01-19 14:21] LABS: Creatine Kinase MB 3.5 ng/mL (0.5-3.6)
[2018-01-19] MEDS ORDERED: Bisacodyl 10 MG Supp RECTAL PRN (14:51)
[2018-01-19] MEDS ORDERED: Acetaminophen 325 MG Tablet PO PRN ×2 (14:51→15:23)
[2018-01-19] MEDS ORDERED: Albumin Human 25% Inj 100 ML IV.SIG PRN (15:23)
[2018-01-19] MEDS ORDERED: Heparin 10,000 UNITS/10 ML Vial (for IV use) OTHER PRN ×2 (15:23)
[2018-01-19] MEDS ORDERED: Sod Chloride 0.9% Inj 1,000 ML OTHER PRN ×2 (15:23)
[2018-01-19] MEDS ORDERED: Gelatin 12 MM/7 MM Topical Foam TOPICAL PRN (15:23)
[2018-01-19] MEDS ORDERED: Sod Chloride 0.9% Inj 1,000 ML IV.CONT PRN (15:23)
[2018-01-19] MEDS ORDERED: Enoxaparin Inj 30 MG/0.3 ML Syringe SQ SCH (16:00)
--- NOTE | 2018-01-19 16:25 | P.HP ---
History of Present Illness Primary Care Physician: [facility] History of Present Illness: 62-year-old male the presents to the ED for evaluation of shortness of breath. [facility] having found pleural effusion on the ball of his lungs. Patient had a chest x-ray done for routine exam by the [facility] and told to come here. Patient was brought here for evaluation of this. Patient does have a significant history of CHF with ejection fraction less than 20%. Patient also is in ESRD patient and last received dialysis yesterday. Patient follows with Dr. Peck for his nephrology. He denies any chest pain and per patient he feels slightly short of breath. He states that he has had to have drainage of the fluid in the past and per patient is was about 2 months ago. From her medical records patient has been here at least once a month for evaluation of similar. He does have a history of hepatitis as well as cocaine abuse in the past. Patient denies any pain in his only complaint is that he would like something to eat. Review of Systems All other systems reviewed negative except as stated in HPI PMFSH - History History 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, Medical Record, It Security Consultant / EMT - Medical History Medical History: Medical History (Last Updated 01/19/18 @ 16:44 by Yesi Boss MD) Arteriovenous fistula for hemodialysis in place, primary CHF (congestive heart failure) Cocaine abuse Diabetes ESRD on dialysis HBP (high blood pressure) Hepatitis C - Surgical History Surgical History: Surgical History (Last Updated 01/19/18 @ 16:45 by Yesi Boss MD) Scrotal disorder (Acute) - Family History Family History: Family History (Last Updated 01/19/18 @ 16:44 by Yesi Boss MD) Mother Heart attack - Tobacco History Second Hand Smoke Exposure: No Tobacco Use In Past 30 Days: No Smoking Status: Former smoker Tobacco Type: Cigarettes - Alcohol History How Often Do You Have a Drink Containing Alcohol: Never - Substance Use History Substance History: No History of Abuse - Travel History Recent Travel in the [place] Within the Last 8 Weeks: No Recent Travel Out of the Country Within the Last 8 Weeks: No - Immunization History Tetanus Immunization: <5 Years Hx Influenza Vaccine This Season: No Medications and Allergies Active Medications: Active Medications Acetaminophen (Tylenol) 650 mg PO Q4H PRN PRN Reason: Temp > 100.4 Acetaminophen (Tylenol) 650 mg PO UNSCH PRN PRN Reason: SEE LABEL COMMENTS Al Hydroxide/Mg Hydroxide (Milk Of Magnesia Liq) 30 ml PO Q12H PRN PRN Reason: Mild Constipation Aspirin (Ecotrin) 81 mg PO DAILY BILL Bisacodyl (Dulcolax Supp) 10 mg RECTAL DAILY PRN PRN Reason: SEVERE CONSITIPATION Cinacalcet (Sensipar) 30 mg PO BID BILL Clonidine HCl (Catapres) 0.1 mg PO UNSCH PRN PRN Reason: SEE LABEL COMMENTS Diphenhydramine HCl (Benadryl) 25 mg PO UNSCH PRN PRN Reason: SEE LABEL COMMENTS Enoxaparin Sodium (Lovenox Inj) 30 mg SQ Q24H [facility] Last Admin: 01/19/18 15:10 Dose: 30 mg Gelatin (Gelfoam 12 Mm/7 Mm Topical) 1 foam TOPICAL PRN PRN PRN Reason: help stop bleeding from site Gentamicin Sulfate (Gentamicin Inj) 20 mg OTHER WITH DIALYSIS PRN PRN Reason: Dwell Gentamycin Lock Heparin Sodium (Porcine) (Heparin Inj) 8,000 units OTHER WITH DIALYSIS PRN PRN Reason: for machine prime Heparin Sodium (Porcine) (Heparin Inj) 1,000 units OTHER WITH DIALYSIS PRN PRN Reason: Dwell Heparin to Fill Catheter Albumin Human (Flexbumin 25% Inj) 100 mls @ 60 mls/hr IV.SIG WITH DIALYSIS PRN PRN Reason: hypotension / volume replace Sodium Chloride (Ns Inj) 1,000 mls @ 0 mls/hr OTHER .Q0M PRN PRN Reason: for prime and rinse back Sodium Chloride (Ns Inj) 1,000 mls @ 200 mls/hr OTHER .Q5H PRN PRN Reason: for dialyzer flush PRN Sodium Chloride (Ns Inj) 1,000 mls @ 0 mls/hr IV.CONT .Q0M PRN PRN Reason: hypotension / volume replace Lactulose (Lactulose Liq) 30 ml PO DAILY PRN PRN Reason: SEVERE CONSITIPATION Lisinopril (Prinivil) 10 mg PO DAILY [facility] Mannitol (Mannitol Inj) 12.5 gm IV.PUSH UNSCH PRN PRN Reason: hypotension / volume replace Metoprolol Tartrate (Lopressor) 100 mg PO DAILY [facility] Nitroglycerin (Nitrostat Sl) 0.4 mg SL Q5M PRN PRN Reason: CHEST PAIN Ondansetron HCl (Zofran Inj) 4 mg IV.PUSH UNSCH PRN PRN Reason: NAUSEA OR VOMITING Senna/Docusate Sodium (Ayla-Colace) 1 tab PO BID [facility] Sennosides (Senokot) 17.2 mg PO Q12H PRN PRN Reason: Moderate Constipation Sodium Chloride (Ns Flush) 2 ml IV.FLUSH UNSCH PRN PRN Reason: FLUSH AFTER USING IV ACCESS Sodium Chloride (Ns Flush) 5 ml IV.FLUSH PRN PRN PRN Reason: flush each lumen during HD Spironolactone (Aldactone) 25 mg PO DAILY [facility] Vitamin B Complex/Vit C/Folic Acid (Nephrocaps) 1 tab PO DAILY [facility] Allergies Allergy/AdvReac Type Severity Reaction Status Date / Time ibuprofen Allergy Severe Swelling Verified 01/19/18 12:34 Influenza Virus Vaccines Allergy Severe Swelling Verified 01/19/18 12:34 Sulfa (Sulfonamide Allergy Severe Rash Verified 01/19/18 12:34 Antibiotics) Home Medications Medication Instructions Recorded Confirmed Type RX: aspirin [Aspirin Low Dose] 81 mg PO DAILY 11/28/17 01/19/18 History RX: cinacalcet [Sensipar] 30 mg PO BID 11/28/17 01/19/18 History RX: lisinopril 10 mg PO DAILY 11/28/17 01/19/18 History RX: metoprolol succinate 100 mg PO DAILY 11/28/17 01/19/18 History RX: spironolactone 25 mg PO DAILY 11/28/17 01/19/18 History RX: vit B comp no.4-uzyvc-X-biotin 1 tab PO DAILY 11/28/17 01/19/18 History [Nephro-Rickie Rx] Exam Vital signs: Vital Signs 01/19/18 12:35 01/19/18 12:40 01/19/18 13:00 Temperature 98.4 F Pulse Rate 91 H 97 H Respiratory Rate 18 20 Blood Pressure 138/68 157/79 H Pulse Oximetry 99 99 93 L 01/19/18 13:25 01/19/18 16:00 Temperature 97.9 F Pulse Rate 95 H Respiratory Rate 20 16 Blood Pressure 142/89 H Pulse Oximetry 97 100 Intake & Output 01/18/18 01/19/1801/19/18 18:59 06:59 18:59 Weight 72.575 kg Narrative: GENERAL: 62 yo male appears in nad SKIN: Warm and dry. HEAD: Normocephalic. EYES: No scleral icterus. No injection or drainage. NECK: Supple, trachea midline. No JVD or lymphadenopathy. CARDIOVASCULAR: Regular rate and rhythm without murmurs, gallops, or rubs. RESPIRATORY: Decreased breath sounds bibasilar. No accessory muscle use. GASTROINTESTINAL: Abdomen soft, non-tender, nondistended. MUSCULOSKELETAL: No cyanosis, or edema. BACK: Nontender without obvious deformity. No CVA tenderness. Results - Labs CBC & Chem 7: 01/19/18 13:00 01/19/18 13:00 Labs: Laboratory Results - last 24 hr 01/19/18 01/19/18 01/19/18 13:00 13:00 13:00 WBC 4.7 RBC 4.31 L Hgb 13.6 Hct 41.0 MCV 95.2 MCH 31.5 MCHC 33.1 RDW 16.5 Plt Count 121 L D MPV 10.4 Neut % (Auto) 64.8 Lymph % (Auto) 15.9 [place] % (Auto) 16.3 H Eos % (Auto) 2.0 Baso % (Auto) 1.0 Neut # (Auto) 3.0 Lymph # (Auto) 0.7 L [place] # (Auto) 0.8 Eos # (Auto) 0.1 Baso # (Auto) 0.0 WBC Differential . Differential Comment Auto diff final PT INR APTT Sodium 140 Potassium 3.9 Chloride 101 Carbon Dioxide 31.0 Anion Gap 8 BUN 22 H Creatinine 5.83 H Estimated GFR 12 L Random Glucose 81 Calcium 8.9 Total Bilirubin 0.5 AST 22 ALT 16 Alkaline Phosphatase 62 Total Creatine Kinase CK-MB (CK-2) Troponin I 0.12 H B-Natriuretic Peptide Greater than 5000 H Total Protein 8.8 H Albumin 3.5 01/19/18 01/19/18 13:00 13:00 WBC RBC Hgb Hct MCV MCH MCHC RDW Plt Count MPV Neut % (Auto) Lymph % (Auto) [place] % (Auto) Eos % (Auto) Baso % (Auto) Neut # (Auto) Lymph # (Auto) [place] # (Auto) Eos # (Auto) Baso # (Auto) WBC Differential Differential Comment PT 11.3 INR 1.1 APTT 27.3 Sodium Potassium Chloride Carbon Dioxide Anion Gap BUN Creatinine Estimated GFR Random Glucose Calcium Total Bilirubin AST ALT Alkaline Phosphatase Total Creatine Kinase 107 CK-MB (CK-2) 3.5 Troponin I B-Natriuretic Peptide Total Protein Albumin - Imaging Impressions Chest X-Ray 01/19/18 12:21 CONCLUSION: 1. Small moderate-sized right pleural effusion and tiny left pleural effusion. 2. Significantly enlarged heart. 3. Moderate pulmonary vascular congestion. Caprini VTE Risk Assessment Caprini VTE Risk Assessment: Moderate/High Risk (score >= 2) Caprini Risk Assessment Model: Point Value = 1 Point Value = 2 Point Value = 3 Point Value = 5 Age 41-60 Minor surgery BMI > 25 kg/m2 Swollen legs Varicose veins or History of unexplained or recurrent spontaneous Oral contraceptives or hormone replacement Sepsis (< 1 month) Serious lung disease, including pneumonia (< 1 month) Abnormal pulmonary function Acute myocardial infarction Congestive heart failure (< 1 month) History of inflammatory bowel disease Medical patient at bed rest Age 61-74 Arthroscopic surgery Major open surgery (> 45 min) Laparoscopic surgery (> 45 min) Malignancy Confined to bed (> 72 hours) Immobilizing plaster cast Central venous access Age >= 75 History of VTE Family history of VTE Factor V Leiden Prothrombin [id number] Lupus anticoagulant Anticardiolipin antibodies Elevated serum homocysteine Heparin-induced thrombocytopenia Other congenital or acquired thrombophilia Stroke (< 1 month) Elective arthroplasty Hip, pelvis, or leg fracture Acute spinal cord injury (< 1 month) Prophylaxis Regimen: Total Risk Factor Score Risk Level Prophylaxis Regimen 0-1 Low Early ambulation 2 Moderate Order ONE of the following: *Sequential Compression Device (SCD) *Heparin 5000 units SQ BID 3-4 Higher Order ONE of the following medications: *Heparin 5000 units SQ TID *Enoxaparin/Lovenox 40 mg SQ daily (WT < 150 kg, CrCl > 30 mL/min) *Enoxaparin/Lovenox 30 mg SQ daily (WT < 150 kg, CrCl > 10-29 mL/min) *Enoxaparin/Lovenox 30 mg SQ BID (WT < 150 kg, CrCl > 30 mL/min) AND/OR *Sequential Compression Device (SCD) 5 or more Highest Order ONE of the following medications: *Heparin 5000 units SQ TID (Preferred with Epidurals) *Enoxaparin/Lovenox 40 mg SQ daily (WT < 150 kg, CrCl > 30 mL/min) *Enoxaparin/Lovenox 30 mg SQ daily (WT < 150 kg, CrCl > 10-29 mL/min) *Enoxaparin/Lovenox 30 mg SQ BID (WT < 150 kg, CrCl > 30 mL/min) AND *Sequential Compression Device (SCD) Assessment and Plan - Plan 62 yo male with PMH of systolic CHF with EF of 20% , ESRD on HD, presents with sob. Found also with bilateral pleural effusions worse on the right Systolic CHF with EF of 20% Bilateral pleural effusions worse on the right ESRD on HD Nephrology consulted plan for HD Satting well on room air at this time monitor O2 sat and administer O2 if dessating Resume home meds Tobacco use 3 cig /day . Counselled. DVT ppx lovenox per renal dose
--- NOTE | 2018-01-19 19:28 | P.CONNP ---
History of Present Illness Service: renal Consult date: 01/19/18 Reason for Consult: ESRD Primary Care Provider: [facility] Family Provider: [facility] History of Present Illness: This is a very pleasant 62-year-old -[place] male who was brought to the emergency room because of increasing dyspnea. Patient has been diagnosed for pleural effusion and volume overload, at the [place] where he has been followed. Patient has a diagnosis of chronic systolic congestive heart failure with ejection fraction of less than 20%; patient has end-stage renal disease requiring dialysis 3 days a week; Patient denies nausea, vomiting, diarrhea, fever, chills chest pain ; attending physician was going to ask us to follow him for his end-stage renal disease Past medical history--hepatitis, cocaine use, systolic CHF, diabetes mellitus, hypertension Past surgical history-AV fistula Family history-heart attack in patient's mother Social History: Denies alcohol use smokes cigarettes but has quit Review of Systems REVIEW OF SYSTEMS: GENERAL: Negative for fatigue. Eyes: Negative for eye pain. ENT: Negative for earache RESP: Negative for cough. Positive for dyspnea CV: negative for chest pain. GI: Negative for abdominal pain. -MALE:Negative for hematuria Musculoskeletal: Negative for joint pain BACK: No Pain SKIN: Negative for rash. NEURO: Negative for seizures. PSYCHE: Negative for depression. 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 - Medical History Medical History: Medical History (Last Updated 01/19/18 @ 16:44 by Yesi Boss MD) Arteriovenous fistula for hemodialysis in place, primary CHF (congestive heart failure) Cocaine abuse Diabetes ESRD on dialysis HBP (high blood pressure) Hepatitis C - Surgical History Surgical History: Surgical History (Last Updated 01/19/18 @ 16:45 by Yesi Boss MD) Scrotal disorder (Acute) - Family History Family History: Family History (Last Updated 01/19/18 @ 16:44 by Yesi Boss MD) Mother Heart attack - Tobacco History Second Hand Smoke Exposure: No Tobacco Use In Past 30 Days: No Smoking Status: Former smoker Tobacco Type: Cigarettes - Alcohol History How Often Do You Have a Drink Containing Alcohol: Never - Substance Use History Substance History: No History of Abuse - Travel History Recent Travel in the [place] Within the Last 8 Weeks: No Recent Travel Out of the Country Within the Last 8 Weeks: No - Immunization History Tetanus Immunization: <5 Years Hx Influenza Vaccine This Season: No Medications and Allergies Active Medications: Active Medications Acetaminophen (Tylenol) 650 mg PO Q4H PRN PRN Reason: Temp > 100.4 Acetaminophen (Tylenol) 650 mg PO UNSCH PRN PRN Reason: SEE LABEL COMMENTS Al Hydroxide/Mg Hydroxide (Milk Of Magnesia Liq) 30 ml PO Q12H PRN PRN Reason: Mild Constipation Aspirin (Ecotrin) 81 mg PO DAILY BILL Bisacodyl (Dulcolax Supp) 10 mg RECTAL DAILY PRN PRN Reason: SEVERE CONSITIPATION Cinacalcet (Sensipar) 30 mg PO BID BILL Clonidine HCl (Catapres) 0.1 mg PO UNSCH PRN PRN Reason: SEE LABEL COMMENTS Diphenhydramine HCl (Benadryl) 25 mg PO UNSCH PRN PRN Reason: SEE LABEL COMMENTS Enoxaparin Sodium (Lovenox Inj) 30 mg SQ Q24H [facility] Last Admin: 01/19/18 15:10 Dose: 30 mg Gelatin (Gelfoam 12 Mm/7 Mm Topical) 1 foam TOPICAL PRN PRN PRN Reason: help stop bleeding from site Gentamicin Sulfate (Gentamicin Inj) 20 mg OTHER WITH DIALYSIS PRN PRN Reason: Dwell Gentamycin Lock Heparin Sodium (Porcine) (Heparin Inj) 8,000 units OTHER WITH DIALYSIS PRN PRN Reason: for machine prime Heparin Sodium (Porcine) (Heparin Inj) 1,000 units OTHER WITH DIALYSIS PRN PRN Reason: Dwell Heparin to Fill Catheter Albumin Human (Flexbumin 25% Inj) 100 mls @ 60 mls/hr IV.SIG WITH DIALYSIS PRN PRN Reason: hypotension / volume replace Sodium Chloride (Ns Inj) 1,000 mls @ 0 mls/hr OTHER .Q0M PRN PRN Reason: for prime and rinse back Sodium Chloride (Ns Inj) 1,000 mls @ 200 mls/hr OTHER .Q5H PRN PRN Reason: for dialyzer flush PRN Sodium Chloride (Ns Inj) 1,000 mls @ 0 mls/hr IV.CONT .Q0M PRN PRN Reason: hypotension / volume replace Lactulose (Lactulose Liq) 30 ml PO DAILY PRN PRN Reason: SEVERE CONSITIPATION Lisinopril (Prinivil) 10 mg PO DAILY [facility] Mannitol (Mannitol Inj) 12.5 gm IV.PUSH UNSCH PRN PRN Reason: hypotension / volume replace Metoprolol Tartrate (Lopressor) 100 mg PO DAILY [facility] Nitroglycerin (Nitrostat Sl) 0.4 mg SL Q5M PRN PRN Reason: CHEST PAIN Ondansetron HCl (Zofran Inj) 4 mg IV.PUSH UNSCH PRN PRN Reason: NAUSEA OR VOMITING Senna/Docusate Sodium (Ayla-Colace) 1 tab PO BID [facility] Sennosides (Senokot) 17.2 mg PO Q12H PRN PRN Reason: Moderate Constipation Sodium Chloride (Ns Flush) 2 ml IV.FLUSH UNSCH PRN PRN Reason: FLUSH AFTER USING IV ACCESS Sodium Chloride (Ns Flush) 5 ml IV.FLUSH PRN PRN PRN Reason: flush each lumen during HD Spironolactone (Aldactone) 25 mg PO DAILY [facility] Vitamin B Complex/Vit C/Folic Acid (Nephrocaps) 1 tab PO DAILY [facility] Allergies Allergy/AdvReac Type Severity Reaction Status Date / Time ibuprofen Allergy Severe Swelling Verified 01/19/18 12:34 Influenza Virus Vaccines Allergy Severe Swelling Verified 01/19/18 12:34 Sulfa (Sulfonamide Allergy Severe Rash Verified 01/19/18 12:34 Antibiotics) Home Medications Medication Instructions Recorded Confirmed Type aspirin [Aspirin Low Dose] 81 mg PO DAILY 11/28/17 01/19/18 History cinacalcet [Sensipar] 30 mg PO BID 11/28/17 01/19/18 History lisinopril 10 mg PO DAILY 11/28/17 01/19/18 History metoprolol succinate 100 mg PO DAILY 11/28/17 01/19/18 History spironolactone 25 mg PO DAILY 11/28/17 01/19/18 History vit B comp no.[id number]-[id number]-biotin 1 tab PO DAILY 11/28/17 01/19/18 History [Nephro-Rickie Rx] Exam Vital signs: Vital Signs 01/19/18 12:35 01/19/18 12:40 01/19/18 13:00 Temperature 98.4 F Pulse Rate 91 H 97 H Respiratory Rate 18 20 Blood Pressure 138/68 157/79 H Pulse Oximetry 99 99 93 L 01/19/18 13:25 01/19/18 16:00 Temperature 97.9 F Pulse Rate 95 H Respiratory Rate 20 16 Blood Pressure 142/89 H Pulse Oximetry 97 100 Intake & Output 01/19/18 01/19/18 01/20/18 06:59 18:59 06:59 Intake Total 100 / 100 Balance 100 / 100 Weight 74.642 kg Intake: Oral 100 / 100 Other: Weight On Admission 72.575 kg Narrative: Examination : GENERAL APPEARANCE: in no acute distress. HEENT:: normocephalic, atraumatic NECK :no cervical lymphadenopathy. ORAL CAVITY: mucosa moist. CHEST:normal SKIN: no suspicious lesions. HEART: no murmurs. LUNGS: Bibasilar Rales and diminished breath sounds BREASTS: not examined. ABDOMEN: soft, nontender. BACK: No paraspinal muscle spasm. MALE GENITOURINARY: not examined. MUSCULOSKELETAL: normal. EXTREMITIES: Absent edema FOOT EXAM : PERIPHERAL PULSES: normal. NEUROLOGIC: nonfocal. PSYCH: normal. Results - Lab Results 01/19/18 13:00 01/19/18 13:00 Most recent lab results Calcium 8.9 mg/dL (8.5-10.1) 01/19/18 13:00 Assessment and Plan - Assessment (1) ESRD (end stage renal disease) on dialysis Code(s): N18.6 - End stage renal disease; Z99.2 - Dependence on renal dialysis Status: Chronic - Plan #: N18.6 :ESRD-Standard care for ESRD patient --Patient is on hemodialysis now, hemodialysis will be repeated tomorrow with the main goal of ultrafiltration as tolerated and then periodic dialysis based on clinical symptoms laboratory results and volume status --with adequacy monitoring --as well as monitoring for anemia, nutrition, bone disease, blood pressure control, --monitor access adequacy, and complications #: OTHER PROBLEMS: Systolic CHF, chronic tobacco use, pleural effusion bilateral worse on the right, history of hypertension, history of diabetes PLAN: Defer to hospitalist/primary care team --- also please see orders for details Discussed Condition With: Thank you for the privilege of this consultation, we will follow the patient with you
[2018-01-19] MEDS: Senna/Docusate Sodium 8.6/50 MG Tablet PO SCH (21:12)
[2018-01-19 21:37] LABS: Hepatitits B Surface Antigen Nonreactive (Nonreactive)
[2018-01-19 22:14] LABS: Hepatitis A IgM Antibody Nonreactive (Nonreactive)
[2018-01-20 08:42] LABS: Baso # (Auto) 0.1 th/mm3 (0.0-0.2); Baso % (Auto) 1.1 % (0.0-2.0); Eos # (Auto) 0.1 th/mm3 (0.0-0.4); Eos % (Auto) 2.1 % (0.0-4.0); Hematocrit 37.3 % (39.0-51.0); Hemoglobin 12.3 gm/dL (13.0-17.0); Lymph # (Auto) 0.7 th/mm3 (1.0-4.8); Lymph % (Auto) 14.8 % (9.0-44.0); Mean Corpuscular HGB Conc 32.8 % (32.0-36.0); Mean Corpuscular Hemoglobin 31.5 pg (27.0-34.0); Mean Corpuscular Volume 95.8 fL (80.0-100.0); Mean Platelet Volume 10.4 fL (7.0-11.0); Mono # (Auto) 0.7 th/mm3 (0.0-0.9); Mono % (Auto) 14.7 % (0.0-8.0); Neut # (Auto) 3.1 th/mm3 (1.8-7.7); Neut % (Auto) 67.3 % (16.0-70.0); Platelet Count 127 th/mm3 (150-450); Red Cell Distribution Width 16.6 % (11.6-17.2); White Blood Count 4.6 th/mm3 (4.0-11.0)
[2018-01-20 08:54] LABS: Calcium 8.5 mg/dL (8.5-10.1); Carbon Dioxide 30.1 meq/L (21.0-32.0); Potassium 4.2 meq/L (3.5-5.1)
[2018-01-20] MEDS ORDERED: Vitamin B Complex/Vit C/Folic Tablet PO SCH (09:00)
[2018-01-20] MEDS ORDERED: Lisinopril 10 MG Tablet PO SCH (09:00)
[2018-01-20] MEDS ORDERED: Spironolactone 25 MG Tablet PO SCH (09:00)
[2018-01-20] MEDS ORDERED: Metoprolol Tartrate 100 MG Tablet PO SCH (09:00)
[2018-01-20] MEDS: Senna/Docusate Sodium 8.6/50 MG Tablet PO SCH (09:14)
--- NOTE | 2018-01-20 09:48 | P.PNNP ---
Subjective Interval history: Patient seen on HD, tolerating HD well Physical Exam Vital signs: Vital Signs 01/19/18 12:35 01/19/18 12:40 01/19/18 13:00 Temperature 98.4 F Pulse Rate 91 H 97 H Respiratory Rate 18 20 Blood Pressure 138/68 157/79 H Pulse Oximetry 99 99 93 L 01/19/18 13:25 01/19/18 16:00 01/19/18 20:00 Temperature 97.9 F 97.7 F Pulse Rate 95 H 86 Respiratory Rate 20 16 18 Blood Pressure 142/89 H 129/63 Pulse Oximetry 97 100 97 01/19/18 23:45 01/20/18 03:46 Temperature 97.5 F L 98.4 F Pulse Rate 98 H 101 H Respiratory Rate 18 18 Blood Pressure 153/76 H 135/75 Pulse Oximetry 94 L 96 Intake & Output 01/19/18 01/20/18 01/20/18 18:59 06:59 18:59 Intake Total 100 / 100 Output Total 3000 / 3000 Balance 100 / 100 -3000 / -3000 Weight 74.642 kg 74.389 kg Intake: Oral 100 / 100 Output: Hemodialysis Amount 3000 / 3000 Other: # Voids 0 Date of Last Bowel Movement 01/18/18 Weight On Admission 72.575 kg - Constitutional no acute distress - Routine HEENT Exam Head: Present: normocephalic Eye: Present: EOMI ENT: Present: mucous membranes moist - Routine Neck Exam Present: supple - Routine Respiratory Exam Present: decreased breath sounds - Routine Cardiovascular Exam Present: RRR - Routine Abdominal Exam Present: soft - Routine Extremities Exam Present: AV fistula - Routine Skin Exam Present: intact - Routine Neurological Exam Present: alert, oriented X3 - Detailed Neurological Exam: Coma Scale Eye Opening: Spontaneous - Routine Psychiatric Exam Present: normal affect Assessment and Plan - Assessment (1) ESRD (end stage renal disease) on dialysis Code(s): N18.6 - End stage renal disease; Z99.2 - Dependence on renal dialysis Status: Chronic - Plan #: N18.6 :ESRD-Standard care for ESRD patient --Patient is on hemodialysis now HD done Monday with 3L UF, repeat HD today. Seen on HD today, tolerating HD well with 3L UF goal today. Continue HD TTS. Encouraged compliance and tobacco cessation. Stable for D/C after HD today if respiratory status stable. Continue with outpatient HD [facility] if discharged. #: OTHER PROBLEMS: Systolic CHF, chronic tobacco use, pleural effusion bilateral worse on the right, history of hypertension, history of diabetes PLAN: Defer to hospitalist/primary care team.
[2018-01-20 12:08] VITALS: BP 124/78; PULSE 111; RESP 12; TEMP 97.7; O2SAT 91
--- NOTE | 2018-01-20 12:16 | P.PN ---
Subjective Interval history: Follow-up visit end-stage renal disease, CHF with exacerbation. Patient seen and examined today. He is status post hemodialysis. States he is feeling a lot better. Requesting to go home. Patient states that he will continue to dialysis and his regular center at [facility]. States his breathing is at baseline. Complains of being hungry. Denies pain and discomfort. Denies SOB/ dyspnea. Denies chest pain, palpitations, headaches, dizziness. Denies fevers, chills, n/v/d. Physical Exam Vital signs: Vital Signs 01/19/18 12:35 01/19/18 12:40 01/19/18 13:00 Temperature 98.4 F Pulse Rate 91 H 97 H Respiratory Rate 18 20 Blood Pressure 138/68 157/79 H Pulse Oximetry 99 99 93 L 01/19/18 13:25 01/19/18 16:00 01/19/18 20:00 Temperature 97.9 F 97.7 F Pulse Rate 95 H 86 Respiratory Rate 20 16 18 Blood Pressure 142/89 H 129/63 Pulse Oximetry 97 100 97 01/19/18 23:45 01/20/18 03:46 01/20/18 12:00 Temperature 97.5 F L 98.4 F 97.7 F Pulse Rate 98 H 101 H 111 H Respiratory Rate 18 18 12 Blood Pressure 153/76 H 135/75 124/78 Pulse Oximetry 94 L 96 91 L Intake & Output 01/19/18 01/20/18 01/20/18 18:59 06:59 18:59 Intake Total 100 / 100 Output Total 3000 / 3000 3000 / 3000 Balance 100 / 100 -3000 / -3000 -3000 / -3000 Weight 74.642 kg 74.389 kg Intake: Oral 100 / 100 Output: Hemodialysis Amount 3000 / 3000 3000 / 3000 Other: # Voids 0 Date of Last Bowel Movement 01/18/18 Weight On Admission 72.575 kg Narrative: GENERAL: This is a well-nourished, well-developed patient, in no apparent distress. SKIN: Warm and dry. HEENT: Normocephalic. Pupils equal round and reactive. Nose without bleeding. Airway patent. NECK: Trachea midline. Supple. CARDIOVASCULAR: Regular rate and rhythm without murmurs, gallops, or rubs. RESPIRATORY: Diminished bases. Mod air entry. No wheezes, rales, or rhonchi. GASTROINTESTINAL: Abdomen soft, non-tender, nondistended. Bowel Sounds normoactive x4. MUSCULOSKELETAL: Extremities without clubbing, cyanosis. NEUROLOGICAL: Awake and alert. No focal neuro deficit. Moves all extremities. Normal speech. Results - Labs CBC & Chem 7: 01/20/18 07:33 01/20/18 07:33 Laboratory Results - last 24 hr 01/19/18 01/19/18 01/19/18 13:00 13:00 13:00 WBC 4.7 RBC 4.31 L Hgb 13.6 Hct 41.0 MCV 95.2 MCH 31.5 MCHC 33.1 RDW 16.5 Plt Count 121 L D MPV 10.4 Neut % (Auto) 64.8 Lymph % (Auto) 15.9 [place] % (Auto) 16.3 H Eos % (Auto) 2.0 Baso % (Auto) 1.0 Neut # (Auto) 3.0 Lymph # (Auto) 0.[address] [place] # (Auto) 0.8 Eos # (Auto) 0.1 Baso # (Auto) 0.0 WBC Differential . Differential Comment Auto diff final PT INR APTT Sodium 140 Potassium 3.9 Chloride 101 Carbon Dioxide 31.0 Anion Gap 8 BUN 22 H Creatinine 5.83 H Estimated GFR 12 L Random Glucose 81 Calcium 8.9 Total Bilirubin 0.5 AST 22 ALT 16 Alkaline Phosphatase 62 Total Creatine Kinase CK-MB (CK-2) Troponin I 0.12 H B-Natriuretic Peptide Greater than 5000 H Total Protein 8.8 H Albumin 3.5 Hepatitis A IgM Ab Hep Bs Antigen Hep B Core IgM Ab Hep C IgG Ab 01/19/18 01/19/18 01/19/18 13:00 13:00 20:33 WBC RBC Hgb Hct MCV MCH MCHC RDW Plt Count MPV Neut % (Auto) Lymph % (Auto) [place] % (Auto) Eos % (Auto) Baso % (Auto) Neut # (Auto) Lymph # (Auto) [place] # (Auto) Eos # (Auto) Baso # (Auto) WBC Differential Differential Comment PT 11.3 INR 1.1 APTT 27.3 Sodium Potassium Chloride Carbon Dioxide Anion Gap BUN Creatinine Estimated GFR Random Glucose Calcium Total Bilirubin AST ALT Alkaline Phosphatase Total Creatine Kinase 107 CK-MB (CK-2) 3.5 Troponin I B-Natriuretic Peptide Total Protein Albumin Hepatitis A IgM Ab Nonreactive Hep Bs Antigen Nonreactive Hep B Core IgM Ab Nonreactive Hep C IgG Ab Reactive H 01/20/18 01/20/18 07:33 07:33 WBC 4.6 RBC 3.90 L Hgb 12.3 L Hct 37.3 L MCV 95.8 MCH 31.5 MCHC 32.8 RDW 16.6 Plt Count 127 L MPV 10.4 Neut % (Auto) 67.3 Lymph % (Auto) 14.8 [place] % (Auto) 14.7 H Eos % (Auto) 2.1 Baso % (Auto) 1.1 Neut # (Auto) 3.1 Lymph # (Auto) 0.[address] [place] # (Auto) 0.7 Eos # (Auto) 0.1 Baso # (Auto) 0.1 WBC Differential . Differential Comment Auto diff final PT INR APTT Sodium 141 Potassium 4.2 Chloride 101 Carbon Dioxide 30.1 Anion Gap 10 BUN 29 H Creatinine 6.15 H Estimated GFR 11 L Random Glucose 86 Calcium 8.5 Total Bilirubin AST ALT Alkaline Phosphatase Total Creatine Kinase CK-MB (CK-2) Troponin I B-Natriuretic Peptide Total Protein Albumin Hepatitis A IgM Ab Hep Bs Antigen Hep B Core IgM Ab Hep C IgG Ab Microbiology 01/19/18 13:05 Blood - Peripheral Aerobic Blood Culture - Preliminary No growth in 1 day 01/19/18 13:05 Blood - Peripheral Anaerobic Blood Culture - Preliminary No growth in 1 day 01/19/18 13:00 Blood - Peripheral Aerobic Blood Culture - Preliminary No growth in 1 day 01/19/18 13:00 Blood - Peripheral Anaerobic Blood Culture - Preliminary No growth in 1 day - Imaging Impressions Chest X-Ray 01/19/18 12:21 CONCLUSION: 1. Small moderate-sized right pleural effusion and tiny left pleural effusion. 2. Significantly enlarged heart. 3. Moderate pulmonary vascular congestion. Assessment and Plan - Plan 62 yo male with PMH of systolic CHF with EF of 20% , ESRD on HD, presents with sob. Found also with bilateral pleural effusions worse on the right Systolic CHF with EF of 20% Bilateral pleural effusions worse on the right ESRD on HD -He had HD yesterday and today -States breathing is a lot better. -Nephrology cleared patient to be discharged today after dialysis if respiratory status is stable. Continue outpatient hemodialysis per -Discussed compliance with patient also with fluid restriction. HTN -Resume home meds Tobacco use 3 cig /day . Counselled. DVT ppx lovenox per renal dose Discharge patient to home Condition on discharge: Improved Renal Diet as tolerated Ad Kristina activity Rx written: Continue home medications. Follow-up with primary care physician Code Status: Full Code Discussed Condition With: Patient, nurse, Dr. Macias Discharge Planning: Plan to DC home today. Cleared by nephrology. Continue with dialysis with [facility] outpatient
--- NOTE | 2018-01-20 15:27 | ECG ---
Date Performed: 01/19/2018 Time Performed: 15:28:51 PTAGE: 62 years EKG: SINUS TACHYCARDIA WITH OCCASIONAL PACs] LVH WITH SECONDARY ST-T CHANGE ATRIAL ABNORMALITY P OOR R-WAVE PROGRESSION, CANNOT RULE OUT SEPTAL FL OF UNDERMINED AGE ABNORMAL ECG Since PREVIOUS TRACING , no significant change noted PREVIOUS TRACIN11/29/2017 09.54 DOCTOR: Gabino Christiansen Interpretating Date/Time 01/20/2018 15:27:01
== END 2018-01-20 14:07 | disposition home or self-care (01) ==
LOC: NEDA 11:33 → NEPC 11:33 → NEPGCP 15:47
PROVIDERS: ADMIT Hospitalist; ATTEND Hospitalist
DX: I13.2 Hypertensive heart and chronic kidney disease with heart failure and with stage 5 chronic kidney disease, or end stage renal disease; Z79.82 Long term (current) use of aspirin; Z79.84 Long term (current) use of oral hypoglycemic drugs; I50.22 Chronic systolic (congestive) heart failure; Z82.49 Family history of ischemic heart disease and other diseases of the circulatory system; F17.210 Nicotine dependence, cigarettes, uncomplicated; Z88.7 Allergy status to serum and vaccine; Z88.2 Allergy status to sulfonamides; E11.22 Type 2 diabetes mellitus with diabetic chronic kidney disease; J91.8 Pleural effusion in other conditions classified elsewhere; N18.6 End stage renal disease; B19.20 Unspecified viral hepatitis C without hepatic coma; Z99.2 Dependence on renal dialysis

== ENCOUNTER 2018-05-07 13:09 | Inpatient (IN) ==
[2018-05-07] MEDS ORDERED: MethylPREDNISolone Sod Succinate Inj 125 MG/2 ML Vial IV.PUSH ONE (13:24)
--- NOTE | 2018-05-07 13:27 | ED ---
HPI General Chief complaint: Nausea/Vomiting/Diarrhea Stated complaint: [facility] Time Seen by Provider: 05/07/18 13:27 History of Present Illness HPI narrative: This is a 62-year-old male with history of end-stage renal disease on dialysis Tuesdays and Saturdays, cocaine abuse, CHF with an ejection fraction of 20%, hypertension, cirrhosis, presents via EMS for evaluation. [facility] reports that [facility] and congestion which started 2 months ago but has been worsening. He reports that he has had some posttussive emesis. He reports that he has had chills and myalgias. He denies chest pain, shortness of breath, abdominal pain , flank pain. He reports that at some point recently he was prescribed amoxicillin for the symptoms. He reports that his has similar symptoms. He has no other complaints at this time. Related Data Home Medications Medication Instructions Recorded Confirmed aspirin [Aspirin Low Dose] 81 mg PO DAILY 11/28/17 05/07/18 cinacalcet [Sensipar] 30 mg PO BID 11/28/17 01/19/18 lisinopril 5 mg PO DAILY 11/28/17 05/07/18 metoprolol succinate 100 mg PO DAILY 11/28/17 05/07/18 spironolactone 25 mg PO DAILY 11/28/17 05/07/18 vit B comp no.1-wcuap-Y-biotin 1 tab PO DAILY 11/28/17 05/07/18 [Nephro-Rickie Rx] ferrous sulfate 324 mg PO TID 05/07/18 05/07/18 hydroxyzine HCl 25 mg PO TID-QID PRN 05/07/18 05/07/18 ipratropium-albuterol 1 puff INHALATION Q6H 05/07/18 05/07/18 nitroglycerin 0.4 mg SUBLINGUAL Q5-15M PRN 05/07/18 05/07/18 paroxetine HCl 40 mg PO DAILY 05/07/18 05/07/18 temazepam 7.5 mg PO HS 05/07/18 05/07/18 Allergies Allergy/AdvReac Type Severity Reaction Status Date / Time ibuprofen Allergy Severe Swelling Verified 05/07/18 13:27 Influenza Virus Vaccines Allergy Severe Swelling Verified 05/07/18 13:27 Sulfa (Sulfonamide Allergy Severe Rash Verified 05/07/18 13:27 Antibiotics) wool Allergy Hives Verified 05/07/18 13:27 Review of Systems ROS: all other systems reviewed are negative PMFSH Medical History Medical History Anemia (Acute) Cirrhosis of liver (Acute) Heart attack (Acute) Noncompliance (Acute) PTSD (post-traumatic stress disorder) (Acute) Tricuspid valve regurgitation (Acute) Arteriovenous fistula for hemodialysis in place, primary (Acute) CHF (congestive heart failure) (Acute) Cocaine abuse (Acute) Diabetes (Acute) ESRD on dialysis (Acute) HBP (high blood pressure) (Acute) Hepatitis C (Acute) Surgical History Surgical History Scrotal disorder (Acute) Social History Social History Substance History: Active Abuse Second Hand Smoke Exposure: No Smoking Status: Current every day smoker Tobacco Type: Cigarettes How Often Do You Have a Drink Containing Alcohol: Never Recent Travel in [facility] within the Last 8 Weeks: No Recent Out of Country Travel within the Last 8 Weeks: No Substance Abuse Detail Crack/Cocaine: Substance Use Status: Active Immunization History Tetanus Immunization: <5 Years Exam Narrative Exam Narrative: GENERAL: Well-developed well-nourished male no acute distress SKIN: Warm and dry. HEAD: Atraumatic. Normocephalic. EYES: Pupils equal and round. No scleral icterus. No injection or drainage. ENT: No nasal bleeding or discharge. Mucous membranes pink and moist. NECK: Trachea midline. No JVD. CARDIOVASCULAR: Regular rate and rhythm. No murmur appreciated. RESPIRATORY: No accessory muscle use. Expiratory wheezing noted bilaterally. GASTROINTESTINAL: Abdomen soft, non-tender, nondistended. Hepatic and splenic margins not palpable. MUSCULOSKELETAL: No obvious deformities. No clubbing. No cyanosis. No edema. Left upper extremity AV fistula in place with palpable thrill NEUROLOGICAL: Awake and alert. No obvious cranial nerve deficits. Motor grossly within normal limits. Normal speech. PSYCHIATRIC: Appropriate mood and affect; insight and judgment normal. Course Initial Documented Vital Signs Pulse Rate 119 H 05/07/18 13:10 Respiratory Rate 40 H 05/07/18 13:10 Pulse Oximetry 100 05/07/18 13:10 Last Documented Vital Signs Temperature 98 F 12/17/18 13:18 Pulse Rate 117 H 05/07/18 14:46 Respiratory Rate 22 05/07/18 14:46 Blood Pressure 130/60 05/07/18 14:46 Pulse Oximetry 97 05/07/18 14:46 Medical Decision Making MDM Narrative Medical decision making narrative: The patient was placed on ECG monitor and pulse oximetry. Twelve-lead EKG was obtained. Lab work, chest x-ray, blood cultures, lactic acid, influenza antigen ordered. The patient was given DuoNeb treatment, Solu-Medrol as he does have wheezing on examination. Lab work reveals a GFR of 9 which is consistent with his baseline. Potassium is 5.5, he was given calcium, insulin, dextrose. Lactic acid is 3.4, would hesitate to provide the patient IV fluids given his poor renal function, ejection fraction 20%, his blood pressure is currently stable. There is consolidation and effusion in the right base. He was given vancomycin, cefepime and azithromycin. His BNP is greater than 5000. Troponin slightly elevated, consistent with his baseline troponin. He will be admitted for further treatment. Medical Screen Exam Complete: Yes Emergency Medical Condition: Yes Differential Diagnosis Differential Diagnosis: Pneumonia, bronchitis, CHF exacerbation, pulmonary edema , pleural effusion Lab Data Result diagrams: 05/07/18 13:36 05/07/18 13:36 Lab Results 05/07/18 05/07/18 05/07/18 Range/Units 13:36 13:36 13:36 WBC 4.8 (4.0-11.0) th/mm3 RBC 4.08 L (4.50-5.90) mil/mm3 Hgb 13.3 (13.0-17.0) gm/dL Hct 41.2 (39.0-51.0) % MCV 100.9 H (80.0-100.0) fL MCH 32.6 (27.0-34.0) pg MCHC 32.3 (32.0-36.0) % RDW 20.2 H (11.6-17.2) % Plt Count 134 L (150-450) th/mm3 MPV 10.7 (7.0-11.0) fL Neut % (Auto) 77.3 H (16.0-70.0) % Lymph % (Auto) 10.7 (9.0-44.0) % [place] % (Auto) 11.0 H (0.0-8.0) % Eos % (Auto) 0.4 (0.0-4.0) % Baso % (Auto) 0.6 (0.0-2.0) % Neut # (Auto) 3.7 (1.8-7.7) th/mm3 Lymph # (Auto) 0.5 L (1.0-4.8) th/mm3 [place] # (Auto) 0.5 (0.0-0.9) th/mm3 Eos # (Auto) 0.0 (0.0-0.4) th/mm3 Baso # (Auto) 0.0 (0.0-0.2) th/mm3 WBC Differential . Differential Comment Auto diff final Sodium 136 (136-145) meq/L Potassium 5.5 H (3.5-5.1) meq/L Chloride 102 (98-107) meq/L Carbon Dioxide 23.9 (21.0-32.0) meq/L Anion Gap 10 (5-15) meq/L BUN 45 H (7-18) mg/dL Creatinine 7.83 H (0.60-1.30) mg/dL Estimated GFR 9 L (>89) mL/min Random Glucose 104 (74-106) mg/dL Lactic Acid (0.4-2.0) mmol/L Calcium 9.0 (8.5-10.1) mg/dL Magnesium 2.2 (1.5-2.5) mg/dL Total Bilirubin 0.6 (0.2-1.0) mg/dL AST 30 (15-37) U/L ALT 16 (12-78) U/L Alkaline Phosphatase 76 (45-117) U/L Total Creatine Kinase 118 (39-308) U/L CK-MB (CK-2) 4.0 H (0.5-3.6) ng/mL Troponin I 0.14 H (0.02-0.05) ng/mL B-Natriuretic Peptide Greater than 5000 H (0-100) pg/mL Total Protein 8.9 H (6.4-8.2) g/dL Albumin 3.6 (3.4-5.0) g/dL 05/07/18 05/07/18 Range/Units 13:36 13:36 WBC (4.0-11.0) th/mm3 RBC (4.50-5.90) mil/mm3 Hgb (13.0-17.0) gm/dL Hct (39.0-51.0) % MCV (80.0-100.0) fL MCH (27.0-34.0) pg MCHC (32.0-36.0) % RDW (11.6-17.2) % Plt Count (150-450) th/mm3 MPV (7.0-11.0) fL Neut % (Auto) (16.0-70.0) % Lymph % (Auto) (9.0-44.0) % [place] % (Auto) (0.0-8.0) % Eos % (Auto) (0.0-4.0) % Baso % (Auto) (0.0-2.0) % Neut # (Auto) (1.8-7.7) th/mm3 Lymph # (Auto) (1.0-4.8) th/mm3 [place] # (Auto) (0.0-0.9) th/mm3 Eos # (Auto) (0.0-0.4) th/mm3 Baso # (Auto) (0.0-0.2) th/mm3 WBC Differential Differential Comment Sodium (136-145) meq/L Potassium (3.5-5.1) meq/L Chloride (98-107) meq/L Carbon Dioxide (21.0-32.0) meq/L Anion Gap (5-15) meq/L BUN (7-18) mg/dL Creatinine (0.60-1.30) mg/dL Estimated GFR (>89) mL/min Random Glucose (74-106) mg/dL Lactic Acid 3.4 H (0.4-2.0) mmol/L Calcium (8.5-10.1) mg/dL Magnesium (1.5-2.5) mg/dL Total Bilirubin (0.2-1.0) mg/dL AST (15-37) U/L ALT (12-78) U/L Alkaline Phosphatase (45-117) U/L Total Creatine Kinase Cancelled (39-308) U/L CK-MB (CK-2) (0.5-3.6) ng/mL Troponin I Cancelled (0.02-0.05) ng/mL B-Natriuretic Peptide (0-100) pg/mL Total Protein (6.4-8.2) g/dL Albumin (3.4-5.0) g/dL Imaging Data Radiologist's impression: Chest X-Ray 05/07/18 13:24 CONCLUSION: Consolidation and effusion in the right base. Discharge Plan Discharge Disposition Patient Disposition: ED Admit(ED Internal Use Only) Discharge Condition Condition: Stable Discharge Order Discharge Orders: ED Use Only Admit Order (Routine); Ordered 05/07/18 Ordered By: Bruno Friedman Discharge Details Diagnosis: CHF (congestive heart failure), PNA (pneumonia), Hyperkalemia Physicians Team ED Provider: Onel Burden ED Midlevel Provider: Bruno Friedman Primary Care Provider: [facility],Physician 's Rxs /Orders / Referrals /Forms Prescriptions: No Action cinacalcet [Sensipar] 30 mg Tablet 30 mg PO BID RF: 0 metoprolol succinate 100 mg Tablet Extended Release 24 Hr 100 mg PO DAILY RF: 0 aspirin [Aspirin Low Dose] 81 mg Tablet,Delayed Release (Dr/Ec) 81 mg PO DAILY RF: 0 spironolactone 25 mg Tablet 25 mg PO DAILY RF: 0 lisinopril 10 mg Tablet 5 mg PO DAILY RF: 0 vit B comp no.6-hurxq-W-biotin [Nephro-Rickie Rx] 1-60-300 mg-mg-mcg Tablet 1 tab PO DAILY RF: 0 temazepam 7.5 mg Capsule 7.5 mg PO HS RF: 0 nitroglycerin 0.4 mg Tablet, Sublingual 0.4 mg SUBLINGUAL Q5-15M PRN (Reason: Chest Pain) RF: 0 hydroxyzine HCl 25 mg Tablet 25 mg PO TID-QID PRN (Reason: ITCHING) RF: 0 paroxetine HCl 40 mg Tablet 40 mg PO DAILY RF: 0 ferrous sulfate 324 mg (65 mg iron) Tablet,Delayed Release (Dr/Ec) 324 mg PO TID RF: 0 ipratropium-albuterol 20-100 mcg/actuation Mist 1 puff INHALATION Q6H RF: 0 Status ED Status: With Doctor
[2018-05-07 13:56] LABS: Baso % (Auto) 0.6 % (0.0-2.0); Eos % (Auto) 0.4 % (0.0-4.0); Hematocrit 41.2 % (39.0-51.0); Hemoglobin 13.3 gm/dL (13.0-17.0); Lymph # (Auto) 0.5 th/mm3 (1.0-4.8); Lymph % (Auto) 10.7 % (9.0-44.0); Mean Corpuscular HGB Conc 32.3 % (32.0-36.0); Mean Corpuscular Hemoglobin 32.6 pg (27.0-34.0); Mean Corpuscular Volume 100.9 fL (80.0-100.0); Mean Platelet Volume 10.7 fL (7.0-11.0); Mono # (Auto) 0.5 th/mm3 (0.0-0.9); Neut # (Auto) 3.7 th/mm3 (1.8-7.7); Neut % (Auto) 77.3 % (16.0-70.0); Platelet Count 134 th/mm3 (150-450); Red Blood Count 4.08 mil/mm3 (4.50-5.90); Red Cell Distribution Width 20.2 % (11.6-17.2); White Blood Count 4.8 th/mm3 (4.0-11.0)
[2018-05-07 14:16] LABS: Albumin 3.6 g/dL (3.4-5.0); Anion Gap 10 meq/L (5-15); Aspartate Aminotransferase 30 U/L (15-37); Blood Urea Nitrogen 45 mg/dL (7-18); Carbon Dioxide 23.9 meq/L (21.0-32.0); Chloride 102 meq/L (98-107); Glomerular Filtration Rate 9 mL/min (>89); Glucose,Random 104 mg/dL (74-106); Magnesium 2.2 mg/dL (1.5-2.5); Potassium 5.5 meq/L (3.5-5.1); Sodium 136 meq/L (136-145)
[2018-05-07] MEDS ORDERED: Dextrose 50% in Water 50 ML Vial IV.PUSH ONE (14:18)
[2018-05-07] MEDS ORDERED: Calcium Gluconate Inj 1 GM in Sodium Chlor 0.9% Inj 100 ML IV.SIG ONE (14:18)
[2018-05-07 14:21] LABS: Alanine Aminotransferase 16 U/L (12-78); Alkaline Phosphatase 76 U/L (45-117); Creatine Kinase 118 U/L (39-308); Total Protein 8.9 g/dL (6.4-8.2); Troponin I 0.14 ng/mL (0.02-0.05)
--- NOTE | 2018-05-07 14:50 | XR ---
EXAM DATE: 05/07/2018 2:45 PM EST AGE/SEX: 62 years / Male INDICATIONS: . Dyspnea, chest pain for 2 months, lethargic CLINICAL DATA: This is the patient's initial encounter. Patient reports that signs and symptoms have been present for 2 months and indicates a pain score of Nonresponsive. MEDICAL/SURGICAL HISTORY: Congestive heart failure. Renal disease, end stage. Hypertension. N one. COMPARISON: [facility] [place], CHEST 2V PA&LAT, 01/19/2018. . FINDINGS: There is cardiomegaly with mild failure. Consolidative changes and pleural effusion are noted in the right base, progressed in the interval from 01/19/2018.*Stent is seen in the left axillary vein The portion of the bony skeleton visualized is unremarkable. CONCLUSION: Consolidation and effusion in the right base. Electronically signed by: Mikhail Abrams MD Board Certified Radiologist 05/07/2018 2:49 PM EST
[2018-05-07] MEDS ORDERED: Azithromycin Inj 500 MG in Sodium Chlor 0.9% Inj 250 ML IV.SIG STA (14:58)
[2018-05-07] MEDS ORDERED: Vancomycin Inj 1,000 MG in Sodium Chlor 0.9% Inj 250 ML IV.SIG ONE (14:58)
[2018-05-07] MEDS ORDERED: Acetaminophen 325 MG Tablet PO PRN ×2 (16:03→18:29)
[2018-05-07] MEDS ORDERED: guaiFENesin/Dextromethorphan 200 MG/20 MG 10 ML UDC PO PRN (16:03)
[2018-05-07 16:07] LABS: ABG Base Excess -3.2 mmol/L (-2-2); ABG PCO2 33 mmHg (38-42); ABG PO2 107 mmHg (61-120)
--- NOTE | 2018-05-07 16:44 | P.HPFP ---
History of Present Illness Primary Care Physician: Physician [facility] Chief Complaint: shortness of breath History of Present Illness: 62-year-old male with past medical history of end-stage renal disease, hypertension, hepatitis C, diabetes, cirrhosis, CHF, presenting to the ED after being evaluated at the [facility] for coughing and shortness of breath. Patient is unable to give me a good history, he is tachypneic, he endorses shortness of breath, cough, but he denies having any chest pain. He is currently on dialysis. He states this cough has been no known for several months and it just got worse over the last few days. Patient lives with , retired from the [employer], smokes 1 cigarette a day, denies drinking HPI is limited but patient dyspnea and inability to cooperate with history of this point - Diagnosis (1) Healthcare associated bacterial pneumonia (2) Acute hyperkalemia (3) ESRD (end stage renal disease) on dialysis (4) CHF (congestive heart failure) (5) Elevated troponin (6) Pleural effusion (7) Diabetes (8) Hx of cocaine abuse Inpatient Certification: I certify that the inpatient services were ordered in accordance with Medicare regulations governing the order. This includes certification that hospital inpatient services are reasonable and necessary and in the case of services not specified as inpatient-only under 42 CFR 419.22(n), that they are appropriately provided as inpatient services in accordance to with the 2-midnight benchmark under 43 CFR 412.3(e) Estimated Total Length of Stay (Days): 3 Plans for Post Hospital Care: Not yet determined Review of Systems Constitutional: Denies fever(s) Cardiovascular: Reports shortness of breath, Reports shortness of breath with activity, Reports shortness of breath when lying down, Denies chest pain Respiratory: Reports change in phlegm color, Reports chest congestion, Reports cough, Reports excessive phlegm production, Denies coughing up blood PMFSH - History History 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, 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 - Medical / Surgical Hx Neg / Unobtainable Medical Problems Denied: Unable to Obtain Surgical History: Unable to Obtain - Medical History Medical History: Medical History (Last Reviewed 05/07/18 @ 16:38 by Bere Whitt MD, R1 ) Anemia Cirrhosis of liver Heart attack Noncompliance PTSD (post-traumatic stress disorder) Tricuspid valve regurgitation Arteriovenous fistula for hemodialysis in place, primary CHF (congestive heart failure) Cocaine abuse Diabetes ESRD on dialysis HBP (high blood pressure) Hepatitis C - Surgical History Surgical History: Surgical History (Last Reviewed 05/07/18 @ 13:16 by Becky Hagan RN) Scrotal disorder (Acute) - Family History Family History: Family History (Last Reviewed 01/20/18 @ 11:16 by Kerri Harrison) Mother Heart attack - Social History I have reviewed the patient's Social History: Yes - Tobacco History Second Hand Smoke Exposure: No Tobacco Use In Past 30 Days: Yes Smoking Status: Current every day smoker Tobacco Type: Cigarettes Cigarettes Per Day: 1 - Alcohol History How Often Do You Have a Drink Containing Alcohol: Never - Substance Use History Substance History: Active Abuse - Substance Use Type Crack/Cocaine Status: Active - Travel History Recent Travel in the [place] Within the Last 8 Weeks: No Recent Travel Out of the Country Within the Last 8 Weeks: No - Immunization History Tetanus Immunization: <5 Years Medications and Allergies Active Medications: Active Medications Acetaminophen (Tylenol) 650 mg PO Q4H PRN PRN Reason: Temp > 100.4 Albuterol (Duoneb Neb (Crispin)) 1 ampul NEB Q4HR NEB CRISPIN Last Admin: 05/07/18 16:20 Dose: 1 ampul Albuterol (Duoneb Neb (Prn)) 1 ampul NEB Q4HR NEB PRN PRN Reason: SHORTNESS OF BREATH/WHEEZING Furosemide (Lasix Inj) 40 mg IV.PUSH ONCE ONE Stop: 05/07/18 16:31 Last Admin: 05/07/18 16:28 Dose: 40 mg Guaifenesin/Dextromethorphan (Robitussin Dm Liq) 10 ml PO Q4H PRN PRN Reason: COUGH Ondansetron HCl (Zofran Inj) 4 mg IV.PUSH Q6H PRN PRN Reason: NAUSEA OR VOMITING Sennosides (Senokot) 17.2 mg PO Q12H PRN PRN Reason: Moderate Constipation Sodium Chloride (Ns Flush) 2 ml IV.FLUSH BID CRISPIN Sodium Chloride (Ns Flush) 2 ml IV.FLUSH UNSCH PRN PRN Reason: FLUSH AFTER USING IV ACCESS Allergies Allergy/AdvReac Type Severity Reaction Status Date / Time ibuprofen Allergy Severe Swelling Verified 05/07/18 13:27 Influenza Virus Vaccines Allergy Severe Swelling Verified 05/07/18 13:27 Sulfa (Sulfonamide Allergy Severe Rash Verified 05/07/18 13:27 Antibiotics) wool Allergy Hives Verified 05/07/18 13:27 Home Medications Medication Instructions Recorded Confirmed Type aspirin [Aspirin Low Dose] 81 mg PO DAILY 11/28/17 05/07/18 History cinacalcet [Sensipar] 30 mg PO BID 11/28/17 01/19/18 History lisinopril 5 mg PO DAILY 11/28/17 05/07/18 History metoprolol succinate 100 mg PO DAILY 11/28/17 05/07/18 History spironolactone 25 mg PO DAILY 11/28/17 05/07/18 History vit B comp no.1-imdtg-M-biotin 1 tab PO DAILY 11/28/17 05/07/18 History [Nephro-Rickie Rx] ferrous sulfate 324 mg PO TID 05/07/18 05/07/18 History hydroxyzine HCl 25 mg PO TID-QID PRN 05/07/18 05/07/18 History ipratropium-albuterol 1 puff INHALATION Q6H 05/07/18 05/07/18 History nitroglycerin 0.4 mg SUBLINGUAL Q5-15M PRN 05/07/18 05/07/18 History paroxetine HCl 40 mg PO DAILY 05/07/18 05/07/18 History temazepam 7.5 mg PO HS 05/07/18 05/07/18 History Exam Vital signs: Vital Signs 05/07/18 13:10 05/07/18 13:18 05/07/18 13:35 Temperature 98 F Pulse Rate 119 H 116 H 115 H Respiratory Rate 40 H 20 25 H Blood Pressure Pulse Oximetry 100 100 05/07/18 13:36 05/07/18 14:46 05/07/18 16:20 Temperature Pulse Rate 117 H 117 H Respiratory Rate 22 22 Blood Pressure 130/60 Pulse Oximetry 100 97 Intake & Output 05/06/18 05/07/18 05/07/18 18:59 06:59 18:59 Intake Total 460 / 460 Balance 460 / 460 Weight 68.039 kg Intake: IV 460 / 460 Azithromycin Inj 500 MG In NS 250 / 250 Inj 250 ML @ 250 mls/hr IV.SIG STAT STA Rx#:[id number] Calcium Gluconate Inj 1 GM In 110 / 110 NS Inj 100 ML @ 110 mls/hr IV. SIG ONCE ONE Rx#:[id number] Maxipime Inj 2,000 MG In NS Inj 100 / 100 100 ML @ 200 mls/hr IV.SIG STAT STA Rx#:[id number] Narrative: patient is a 62-year-old AA male Constitutional: Patient curled up in bed, breathing heavily, coughing and bringing stuff up, in mild respiratory distress Head: normocephalic and atraumatic. Lungs: Increased respiratory effort, dyspnea. Limited exam due to patient inability to cooperate. Patient cannot sit up straight. Coughing Cardiovascular: Tachycardic, no murmurs, rubs, or gallops; with regular rate and rythm. Abdomen: + BS. No tenderness. Musculoskeletal: normal movement of all extremities. No cyanosis or edema. Neurologic: Cranial Nerves: grossly intact. Results - Labs Result diagrams: 05/07/18 13:36 05/07/18 13:36 Abnormal lab results 05/07/18 05/07/18 05/07/18 Range/Units 13:36 13:36 13:36 RBC 4.08 L (4.50-5.90) mil/mm3 MCV 100.9 H (80.0-100.0) fL RDW 20.2 H (11.6-17.2) % Plt Count 134 L (150-450) th/mm3 Neut % (Auto) 77.3 H (16.0-70.0) % [place] % (Auto) 11.0 H (0.0-8.0) % Lymph # (Auto) 0.5 L (1.0-4.8) th/mm3 ABG pCO2 (38-42) mmHg ABG HCO3 (22-26) mmol/L ABG Base Excess (-2-2) mmol/L Potassium 5.5 H (3.5-5.1) meq/L BUN 45 H (7-18) mg/dL Creatinine 7.83 H (0.60-1.30) mg/dL Estimated GFR 9 L (>89) mL/min Lactic Acid (0.4-2.0) mmol/L CK-MB (CK-2) 4.0 H (0.5-3.6) ng/mL Troponin I 0.14 H (0.02-0.05) ng/mL B-Natriuretic Peptide Greater than 5000 H (0-100) pg/mL Total Protein 8.9 H (6.4-8.2) g/dL 18 05/07/18 Range/Units 13:36 16:00 RBC (4.50-5.90) mil/mm3 MCV (80.0-100.0) fL RDW (11.6-17.2) % Plt Count (150-450) th/mm3 Neut % (Auto) (16.0-70.0) % [place] % (Auto) (0.0-8.0) % Lymph # (Auto) (1.0-4.8) th/mm3 ABG pCO2 33 L (38-42) mmHg ABG HCO3 21 L (22-26) mmol/L ABG Base Excess -3.2 L (-2-2) mmol/L Potassium (3.5-5.1) meq/L BUN (7-18) mg/dL Creatinine (0.60-1.30) mg/dL Estimated GFR (>89) mL/min Lactic Acid 3.4 H (0.4-2.0) mmol/L CK-MB (CK-2) (0.5-3.6) ng/mL Troponin I (0.02-0.05) ng/mL B-Natriuretic Peptide (0-100) pg/mL Total Protein (6.4-8.2) g/dL Short CBC 05/07/18 Range/Units 13:36 WBC 4.8 (4.0-11.0) th/mm3 Hgb 13.3 (13.0-17.0) gm/dL Hct 41.2 (39.0-51.0) % Plt Count 134 L (150-450) th/mm3 BMP 05/07/18 13:36 Sodium 136 Potassium 5.5 H Chloride 102 Carbon Dioxide 23.9 BUN 45 H Creatinine 7.83 H Calcium 9.0 Cardiac Enzymes 18 05/07/18 Range/Units 13:36 13:36 Total Creatine Kinase 118 Cancelled (39-308) U/L CK-MB (CK-2) 4.0 H (0.5-3.6) ng/mL Troponin I 0.14 H Cancelled (0.02-0.05) ng/mL Liver Function 12/17/18 Range/Units 13:36 Total Bilirubin 0.6 (0.2-1.0) mg/dL AST 30 (15-37) U/L ALT 16 (12-78) U/L Alkaline Phosphatase 76 (45-117) U/L Albumin 3.6 (3.4-5.0) g/dL - Imaging Impressions Chest X-Ray 05/07/18 13:24 CONCLUSION: Consolidation and effusion in the right base. Caprini VTE Risk Assessment Caprini VTE Risk Assessment: No/Low Risk (score <= 1) Caprini Risk Assessment Model: Point Value = 1 Point Value = 2 Point Value = 3 Point Value = 5 Age 41-60 Minor surgery BMI > 25 kg/m2 Swollen legs Varicose veins or History of unexplained or recurrent spontaneous Oral contraceptives or hormone replacement Sepsis (< 1 month) Serious lung disease, including pneumonia (< 1 month) Abnormal pulmonary function Acute myocardial infarction Congestive heart failure (< 1 month) History of inflammatory bowel disease Medical patient at bed rest Age 61-74 Arthroscopic surgery Major open surgery (> 45 min) Laparoscopic surgery (> 45 min) Malignancy Confined to bed (> 72 hours) Immobilizing plaster cast Central venous access Age >= 75 History of VTE Family history of VTE Factor V Leiden Prothrombin [id number] Lupus anticoagulant Anticardiolipin antibodies Elevated serum homocysteine Heparin-induced thrombocytopenia Other congenital or acquired thrombophilia Stroke (< 1 month) Elective arthroplasty Hip, pelvis, or leg fracture Acute spinal cord injury (< 1 month) Prophylaxis Regimen: Total Risk Factor Score Risk Level Prophylaxis Regimen 0-1 Low Early ambulation 2 Moderate Order ONE of the following: *Sequential Compression Device (SCD) *Heparin 5000 units SQ BID 3-4 Higher Order ONE of the following medications: *Heparin 5000 units SQ TID *Enoxaparin/Lovenox 40 mg SQ daily (WT < 150 kg, CrCl > 30 mL/min) *Enoxaparin/Lovenox 30 mg SQ daily (WT < 150 kg, CrCl > 10-29 mL/min) *Enoxaparin/Lovenox 30 mg SQ BID (WT < 150 kg, CrCl > 30 mL/min) AND/OR *Sequential Compression Device (SCD) 5 or more Highest Order ONE of the following medications: *Heparin 5000 units SQ TID (Preferred with Epidurals) *Enoxaparin/Lovenox 40 mg SQ daily (WT < 150 kg, CrCl > 30 mL/min) *Enoxaparin/Lovenox 30 mg SQ daily (WT < 150 kg, CrCl > 10-29 mL/min) *Enoxaparin/Lovenox 30 mg SQ BID (WT < 150 kg, CrCl > 30 mL/min) AND *Sequential Compression Device (SCD) Assessment and Plan - Assessment (1) Healthcare associated bacterial pneumonia Code(s): J15.9 - Unspecified bacterial pneumonia Status: Acute (2) Acute hyperkalemia Code(s): E87.5 - Hyperkalemia Status: Acute (3) ESRD (end stage renal disease) on dialysis Code(s): N18.6 - End stage renal disease; Z99.2 - Dependence on renal dialysis Status: Chronic (4) CHF (congestive heart failure) Code(s): I50.9 - Heart failure, unspecified Status: Chronic (5) Elevated troponin Code(s): R74.8 - Abnormal levels of other serum enzymes Status: Acute (6) Pleural effusion Code(s): J90 - Pleural effusion, not elsewhere classified Status: Acute (7) Diabetes Code(s): E11.9 - Type 2 diabetes mellitus without complications Status: Chronic (8) Hx of cocaine abuse Code(s): Z87.898 - Personal history of other specified conditions Status: Chronic - Assessment and Plan 62-year-old male with severe past medical history and comorbidities including COPD, CHF, with reduced ejection fraction of under 20%, end-stage kidney disease currently on dialysis, history of cocaine abuse, diabetes, high blood pressure, is venous admitted for healthcare associated pneumonia with pleural effusions and likely CHF exacerbation. Healthcare associated bacterial pneumonia Chronic cough for about 2 months, patient currently receiving dialysis. Patient received azithromycin 500 mg IV once, cefepime 2000 mg IV once, vancomycin 1000 mg IV once, several breathing treatments, methylprednisolone 125 mg IV once WBC 4 .8 ABG with pH of 7.41, PCO2 of 33, HCO3 of 21 Vital signs significant for increased respiratory rate of 25 and tachycardic up to 135 bpm Patient wears 3 L of oxygen at home Zosyn 2.25mg IV q 8hr (renally dosed for hemodialysis patients, discussed with pharmacy) Albuterol treatments as needed every 4 hours for shortness of breath Robituccin as needed for cough Acute hyperkalemia Likely related to end-stage renal disease Receive 1 g of calcium gluconate as well as 10 units of Novolin We will repeat labs Congestive heart failure Patient presented with significant shortness of breath BNP of over 5000, which seems to be always elevated in this patient Received 40 mg of IV furosemide in the ED End-stage kidney disease on dialysis Creatinine today 7.83 GFR of 9 Unable to obtain history of which days patient does dialysis AV fistula in place Consult to nephrology for evaluation and treatment Elevated troponin Patient denies chest pain Troponin of 0.14, seems to be baseline for patient Order serial troponin x2 History of cocaine abuse UDS ordered Diabetes Pt unable to provide history at this time Start low dose insulin sliding scale FEN: - PO hydration - Monitor replace electrolytes as needed - Cardiac diet PPX: - Bilateral lower extremity SCDs - Zofran prn for nausea - Protonix 40mgs daily for GI ppx Pt dw Dr. Mclaughlin, Dr. Gusman, and Dr. Peoples (4) CHF (congestive heart failure) Qualifiers: Heart failure chronicity: acute on chronic (7) Diabetes Qualifiers: Diabetes mellitus complication status: with kidney complications Diabetes mellitus complication detail: with chronic kidney disease Chronic kidney disease stage: on chronic dialysis
[2018-05-07] MEDS ORDERED: Piperacil/Tazo 2.25 GM Premix 2.25 GM/50 ML PIGGYBACK IV.SIG SCH ×2 (18:00→21:00)
[2018-05-07] MEDS ORDERED: Albumin Human 25% Inj 100 ML IV.SIG PRN (18:29)
[2018-05-07] MEDS ORDERED: Sod Chloride 0.9% Inj 1,000 ML OTHER PRN ×2 (18:29)
[2018-05-07] MEDS ORDERED: Heparin 10,000 UNITS/10 ML Vial (for IV use) OTHER PRN ×2 (18:29)
[2018-05-07] MEDS ORDERED: Gelatin 12 MM/7 MM Topical Foam TOPICAL PRN (18:29)
[2018-05-07] MEDS ORDERED: Sod Chloride 0.9% Inj 1,000 ML IV.CONT PRN (18:29)
[2018-05-07] MEDS ORDERED: Dextrose 50% in Water 50 ML Vial IV.PUSH PRN (20:18)
[2018-05-07 22:48] LABS: Baso % (Auto) 0.2 % (0.0-2.0); Hematocrit 38.3 % (39.0-51.0); Hemoglobin 12.5 gm/dL (13.0-17.0); Lymph # (Auto) 0.1 th/mm3 (1.0-4.8); Lymph % (Auto) 3.1 % (9.0-44.0); Mean Corpuscular HGB Conc 32.6 % (32.0-36.0); Mean Corpuscular Hemoglobin 31.7 pg (27.0-34.0); Mean Corpuscular Volume 97.3 fL (80.0-100.0); Mono # (Auto) 0.1 th/mm3 (0.0-0.9); Mono % (Auto) 2.5 % (0.0-8.0); Neut # (Auto) 4.4 th/mm3 (1.8-7.7); Neut % (Auto) 94.2 % (16.0-70.0); Platelet Count 122 th/mm3 (150-450); Red Blood Count 3.94 mil/mm3 (4.50-5.90); Red Cell Distribution Width 18.7 % (11.6-17.2); White Blood Count 4.6 th/mm3 (4.0-11.0)
[2018-05-08] MEDS: Insulin NovoLOG Aspart Correctional Sugar Inj SQ SCH ×5 (00:26→21:36)
[2018-05-08] MEDS: Piperacil/Tazo 2.25 GM Premix 2.25 GM/50 ML PIGGYBACK IV.SIG SCH ×3 (01:42→18:20)
[2018-05-08 05:04] LABS: Alanine Aminotransferase 16 U/L (12-78); Albumin 3.3 g/dL (3.4-5.0); Alkaline Phosphatase 72 U/L (45-117); Anion Gap 10 meq/L (5-15); Aspartate Aminotransferase 26 U/L (15-37); Blood Urea Nitrogen 47 mg/dL (7-18); Calcium 8.5 mg/dL (8.5-10.1); Carbon Dioxide 27.3 meq/L (21.0-32.0); Chloride 100 meq/L (98-107); Glomerular Filtration Rate 10 mL/min (>89); Glucose,Random 132 mg/dL (74-106); Potassium 5.2 meq/L (3.5-5.1); Sodium 137 meq/L (136-145); Total Protein 8.3 g/dL (6.4-8.2)
--- NOTE | 2018-05-08 07:45 | MB ---
cc: Barber Peck MD DATE: 05/07/2018 REASON FOR CONSULTATION: End-stage renal disease, on hemodialysis for management. HISTORY OF PRESENT ILLNESS: This is a 62-year-old male with a past medical history of hypertension, hepatitis C, diabetes mellitus, congestive heart failure, end-stage renal disease on hemodialysis 3 times per week, came in with worsening shortness of breath and cough. I was called to see the patient for the management of dialysis. The patient has past history of being noncompliant with his dialysis, but according to the patient and his , he has gone regularly last week and he was last dialyzed on Monday. He has this cough and gradual worsening of shortness of breath. I gave him as an outpatient about a week ago amoxicillin, but it did not improve his cough and it was getting worse. He has low grade fever at home. He has sputum whitish to yellow in color. There was no blood in the sputum. He denies any chest pain. No headache or dizziness. The patient was with the nasal cannula when I saw him and he was quite tachypneic. PAST MEDICAL HISTORY: Hypertension, diabetes mellitus, congestive heart failure, ischemic heart disease, end-stage renal disease on hemodialysis 3 times per week. PAST SURGICAL HISTORY: History of AV fistula surgery, multiple thoracenteses done, cardiac catheterization done in the past. REVIEW OF SYSTEMS: The patient generalized weakness, feeling down, fever. No headache or dizziness. He has shortness of breath associated with cough and whitish to yellow sputum. No chest pain. No palpitation. Shortness of breath is more on exertion and lying flat. There is no history of diarrhea. SOCIAL HISTORY: The patient is and there is a history of smoking and also using cocaine off and on. There is no history of heavy alcoholism. FAMILY HISTORY: Noncontributory. ALLERGIES: HE IS ALLERGIC TO IBUPROFEN, SULFA AND INFLUENZA VACCINE. MEDICATIONS: Currently, he is on the following medications: 1. Tylenol as needed. 2. DuoNeb nebulizer. 3. Catapres p.r.n. 4. Robitussin-DM 10 mL every 4 hours p.r.n. 5. Heparin subcutaneous. 6. Mannitol as needed. 7. Nitrostat. 8. Zofran as needed. 6. Senokot 17.2 mg every 12 hours. 7. Zosyn 2.25 grams every 8 hours. PHYSICAL EXAMINATION: GENERAL: Awake, alert. He is in moderate respiratory distress. VITAL SIGNS: Blood pressure 142/63, temperature is 99.6. Temperature 98, oxygen saturation on 3 liters nasal cannula 97-98%. HEENT: Pupils are mild constricted. Nonicteric sclerae. Conjunctivae normal. NECK: Supple. JVD is slightly elevated. LUNGS: The patient has bilateral decreased air entry with scattered wheezing. HEART: S1, S2. Regular rate and rhythm. ABDOMEN: Soft, lax, distended. There is no tenderness. Bowel sounds positive. EXTREMITIES: He has mild edema in the legs. INVESTIGATIONS: WBC count 4.8, hemoglobin 13.3, platelet count of 134, neutrophils 77.3%. Arterial blood gas showing pH of 7.41, pCO2 of 33, pO2 of 107, bicarbonate of 21, sodium 136, potassium 5.5, chloride 102, bicarbonate 23.9, BUN 45, creatinine 7.8. Lactic acid is 3.4. Calcium is 9.0, magnesium is 2.2, AST is 30, ALT is 16, alkaline phosphatase 76. Platelet count is 118. Troponin 0.14. ProBNP was greater than 5000. Total protein is 8.9, albumin is 3.6. Cultures are all pending. IMAGING STUDIES: The patient had a chest x-ray done, which shows that he has a right basal infiltrate and possible effusion associated with increased vascular marking. ASSESSMENT AND PLAN: 1. Pneumonia. 2. Fluid overload status. 3. End-stage renal disease, on hemodialysis. 4. Hypertension. 5. Diabetes mellitus. 6. History of congestive heart failure. The patient has Hyperkalemia. The patient has a possible bacterial pneumonia. He was given vancomycin 1 dose and cefepime 1 dose and azithromycin one dose and now he is on Zosyn. Follow the culture results. The patient had some increased vascular marking and he is in fluid overload status. I will give him short dialysis tonight to get some fluid out with ultrafiltration of about 3 liters of fluid. His blood pressure is stable. I have already called the dialysis nurse. Continue the antibiotic. His regular diet. Hemodialysis will be done tomorrow. I told the patient to restrict his fluid intake. Thank you for the consultation. I will follow the patient while he is in the hospital. Severo Peck MD AQJ/sj , 06:36 PM , 06:51 PM
--- NOTE | 2018-05-08 08:26 | P.PNNP ---
Subjective Interval history: Resting comfortably. Shortness of breath on exertion. Denies any chest pain, nausea, or vomiting. <Skylar Paulino - Last Filed: 05/08/18 08:17> Physical Exam Vital signs: Vital Signs 05/07/18 13:10 05/07/18 13:18 05/07/18 13:35 Temperature 98 F Pulse Rate 119 H 116 H 115 H Respiratory Rate 40 H 20 25 H Blood Pressure Pulse Oximetry 100 100 05/07/18 13:36 05/07/18 14:46 05/07/18 16:20 Temperature Pulse Rate 117 H 117 H Respiratory Rate 22 22 Blood Pressure 130/60 Pulse Oximetry 100 97 05/07/18 17:55 05/07/18 20:00 05/07/18 21:17 Temperature 98 F Pulse Rate 110 H 126 H Respiratory Rate 22 22 Blood Pressure 142/63 H 140/68 Pulse Oximetry 98 100 99 05/08/18 00:00 05/08/18 00:04 05/08/18 03:21 Temperature 99.2 F Pulse Rate 130 H 137 H 130 H Respiratory Rate 26 H 34 H 24 Blood Pressure 137/72 Pulse Oximetry 100 99 05/08/18 04:00 Temperature 98.3 F Pulse Rate 123 H Respiratory Rate 22 Blood Pressure 107/55 L Pulse Oximetry 98 Intake & Output 05/07/18 05/08/18 05/08/18 18:59 06:59 18:59 Intake Total 710 / 710 Output Total 3000 / 3000 Balance 710 / 710 -3000 / -3000 Weight 68.039 kg 61.1 kg Intake: IV 710 / 710 Azithromycin Inj 500 MG In NS 250 / 250 Inj 250 ML @ 250 mls/hr IV.SIG STAT STA Rx#:[id number] Calcium Gluconate Inj 1 GM In 110 / 110 NS Inj 100 ML @ 110 mls/hr IV. SIG ONCE ONE Rx#:[id number] Maxipime Inj 2,000 MG In NS Inj 100 / 100 100 ML @ 200 mls/hr IV.SIG STAT STA Rx#:[id number] Vancomycin Inj 1,000 MG In NS 250 / 250 Inj 250 ML @ 250 mls/hr IV.SIG ONCE ONE Rx#:[id number] Output: Hemodialysis Amount 3000 / 3000 Other: # Voids 0 Weight On Admission 68.039 kg Narrative: GENERAL: alert and oriented. SKIN: Warm and dry. NECK: Supple, trachea midline. No JVD. CARDIOVASCULAR: Regular rate and rhythm without murmurs, gallops, or rubs. Tachycardia RESPIRATORY: Breath sounds diminished. No accessory muscle use. No rales, rhonchi, or wheezing. GASTROINTESTINAL: Abdomen soft, non-tender, nondistended. +BS MUSCULOSKELETAL: No cyanosis, or edema. BACK: Nontender without obvious deformity. No CVA tenderness. <Skylar Paulino - Last Filed: 05/08/18 08:17> Vital signs: Vital Signs 05/07/18 17:55 05/07/18 20:00 05/07/18 21:17 Temperature 98 F Pulse Rate 110 H 126 H Respiratory Rate 22 22 Blood Pressure 142/63 H 140/68 Pulse Oximetry 98 100 99 05/08/18 00:00 05/08/18 00:04 05/08/18 03:21 Temperature 99.2 F Pulse Rate 130 H 137 H 130 H Respiratory Rate 26 H 34 H 24 Blood Pressure 137/72 Pulse Oximetry 100 99 05/08/18 04:00 05/08/18 07:35 05/08/18 08:00 Temperature 98.3 F 97.6 F Pulse Rate 123 H 120 H Respiratory Rate 22 25 H Blood Pressure 107/55 L 141/72 H Pulse Oximetry 98 98 99 05/08/18 08:46 05/08/18 09:00 05/08/18 12:00 Temperature 97.6 F Pulse Rate 115 H 112 H Respiratory Rate 18 20 Blood Pressure 130/80 Pulse Oximetry 97 Intake & Output 05/07/18 05/08/18 05/08/18 18:59 06:59 18:59 Intake Total 710 / 710 100 / 100 Output Total 3000 / 3000 Balance 710 / 710 -3000 / -3000 100 / 100 Weight 68.039 kg 61.1 kg Intake: IV 710 / 710 100 / 100 Azithromycin Inj 500 MG In NS 250 / 250 Inj 250 ML @ 250 mls/hr IV.SIG STAT STA Rx#:[id number] Calcium Gluconate Inj 1 GM In 110 / 110 NS Inj 100 ML @ 110 mls/hr IV. SIG ONCE ONE Rx#:[id number] Maxipime Inj 2,000 MG In NS Inj 100 / 100 100 ML @ 200 mls/hr IV.SIG STAT STA Rx#:[id number] Zosyn 2.25 GM Premix 2.25 gm In 100 / 100 50 ml @ 100 mls/hr IV.SIG Q8H BILL Rx#:[id number] Vancomycin Inj 1,000 MG In NS 250 / 250 Inj 250 ML @ 250 mls/hr IV.SIG ONCE ONE Rx#:[id number] Output: Hemodialysis Amount 3000 / 3000 Other: # Voids 0 Weight On Admission 68.039 kg <Barber Peck - Last Filed: 05/08/18 17:32> Assessment and Plan - Assessment (1) ESRD (end stage renal disease) on dialysis Code(s): N18.6 - End stage renal disease; Z99.2 - Dependence on renal dialysis Status: Chronic Plan: Hemodialysis T/T/S Avoid IVF and gadolinium. Hemodialysis last night, UF of 3 liters of fluid Hyperkalemia, will adjust K bath with dialysis. Will proceed with hemodialysis today removing fluid as tolerated to place on regular scheduled days. (2) PNA (pneumonia) Code(s): J18.9 - Pneumonia, unspecified organism Status: Acute Plan: On Zosyn chest Xray with effusion right lung base. (3) CHF (congestive heart failure) Code(s): I50.9 - Heart failure, unspecified Status: Chronic Qualifiers: Heart failure chronicity: acute on chronic Plan: shortness of breath has improved. HD today will remove fluid as tolerated. <Skylar Paulino - Last Filed: 05/08/18 08:17> - Assessment (1) ESRD (end stage renal disease) on dialysis Code(s): N18.6 - End stage renal disease; Z99.2 - Dependence on renal dialysis Status: Chronic Plan: Patient seen during HD, and examined, agree with above. Continue antibiotics, remove fluid with HD as tolerated. (2) PNA (pneumonia) Code(s): J18.9 - Pneumonia, unspecified organism Status: Acute (3) CHF (congestive heart failure) Code(s): I50.9 - Heart failure, unspecified Status: Chronic Qualifiers: Heart failure chronicity: acute on chronic <Barber Peck - Last Filed: 05/08/18 17:32>
--- NOTE | 2018-05-08 10:10 | P.PNFP ---
Subjective Interval history: Patient feeling better this morning undergoing breathing treatment. He looks clinically improved. Patient states he feels better less shortness of breath, improve cough, and improve work of breathing. He denies headaches, chest pain, still has mild shortness of breath. No acute events overnight. <Bere Rubalcava V - 05/08/18 10:10> Results - Labs Result diagrams: 05/09/18 05:57 05/09/18 05:57 <Quang Mclaughlin - 05/09/18 08:22> Abnormal lab results 05/08/18 05/08/18 05/09/18 Range/Units 12:23 21:29 05:51 RBC (4.50-5.90) mil/mm3 Hgb (13.0-17.0) gm/dL Hct (39.0-51.0) % RDW (11.6-17.2) % Plt Count (150-450) th/mm3 MPV (7.0-11.0) fL BUN (7-18) mg/dL Creatinine (0.60-1.30) mg/dL Estimated GFR (>89) mL/min POC Glucose 124 H 118 H (68-110) mg/dl Calcium (8.5-10.1) mg/dL B-Natriuretic Peptide 3689 H (0-100) pg/mL 05/09/18 05/09/18 Range/Units 05:57 05:57 RBC 3.84 L (4.50-5.90) mil/mm3 Hgb 12.5 L (13.0-17.0) gm/dL Hct 37.7 L (39.0-51.0) % RDW 19.4 H (11.6-17.2) % Plt Count 121 L (150-450) th/mm3 MPV 11.2 H (7.0-11.0) fL BUN 36 H (7-18) mg/dL Creatinine 5.68 H (0.60-1.30) mg/dL Estimated GFR 12 L (>89) mL/min POC Glucose (68-110) mg/dl Calcium 8.3 L (8.5-10.1) mg/dL B-Natriuretic Peptide (0-100) pg/mL Short CBC 05/09/18 Range/Units 05:57 WBC 4.3 (4.0-11.0) th/mm3 Hgb 12.5 L (13.0-17.0) gm/dL Hct 37.7 L (39.0-51.0) % Plt Count 121 L (150-450) th/mm3 [facility] 05/09/18 05:57 Sodium 137 Potassium 4.6 Chloride 99 Carbon Dioxide 29.6 BUN 36 H Creatinine 5.68 H Calcium 8.3 L <Lissette,Quang - 05/09/18 08:22> Abnormal lab results 05/07/18 05/07/18 05/07/18 Range/Units 13:36 13:36 13:36 RBC 4.08 L (4.50-5.90) mil/mm3 Hgb (13.0-17.0) gm/dL Hct (39.0-51.0) % MCV 100.9 H (80.0-100.0) fL RDW 20.2 H (11.6-17.2) % Plt Count 134 L (150-450) th/mm3 Neut % (Auto) 77.3 H (16.0-70.0) % Lymph % (Auto) (9.0-44.0) % [place] % (Auto) 11.0 H (0.0-8.0) % Lymph # (Auto) 0.5 L (1.0-4.8) th/mm3 ABG pCO2 (38-42) mmHg ABG HCO3 (22-26) mmol/L ABG Base Excess (-2-2) mmol/L Potassium 5.5 H (3.5-5.1) meq/L BUN 45 H (7-18) mg/dL Creatinine 7.83 H (0.60-1.30) mg/dL Estimated GFR 9 L (>89) mL/min POC Glucose (68-110) mg/dl Random Glucose (74-106) mg/dL Lactic Acid (0.4-2.0) mmol/L CK-MB (CK-2) 4.0 H (0.5-3.6) ng/mL Troponin I 0.14 H (0.02-0.05) ng/mL B-Natriuretic Peptide Greater than 5000 H (0-100) pg/mL Total Protein 8.9 H (6.4-8.2) g/dL Albumin (3.4-5.0) g/dL 05/07/18 05/07/18 05/07/18 Range/Units 13:36 16:00 17:52 RBC (4.50-5.90) mil/mm3 Hgb (13.0-17.0) gm/dL Hct (39.0-51.0) % MCV (80.0-100.0) fL RDW (11.6-17.2) % Plt Count (150-450) th/mm3 Neut % (Auto) (16.0-70.0) % Lymph % (Auto) (9.0-44.0) % [place] % (Auto) (0.0-8.0) % Lymph # (Auto) (1.0-4.8) th/mm3 ABG pCO2 33 L (38-42) mmHg ABG HCO3 21 L (22-26) mmol/L ABG Base Excess -3.2 L (-2-2) mmol/L Potassium (3.5-5.1) meq/L BUN (7-18) mg/dL Creatinine (0.60-1.30) mg/dL Estimated GFR (>89) mL/min POC Glucose (68-110) mg/dl Random Glucose (74-106) mg/dL Lactic Acid 3.4 H (0.4-2.0) mmol/L CK-MB (CK-2) (0.5-3.6) ng/mL Troponin I 0.10 H (0.02-0.05) ng/mL B-Natriuretic Peptide (0-100) pg/mL Total Protein (6.4-8.2) g/dL Albumin (3.4-5.0) g/dL 05/07/18 05/07/18 05/07/18 Range/Units 22:30 22:30 22:30 RBC 3.94 L (4.50-5.90) mil/mm3 Hgb 12.5 L (13.0-17.0) gm/dL Hct 38.3 L (39.0-51.0) % MCV (80.0-100.0) fL RDW 18.7 H (11.6-17.2) % Plt Count 122 L (150-450) th/mm3 Neut % (Auto) 94.2 H (16.0-70.0) % Lymph % (Auto) 3.1 L (9.0-44.0) % [place] % (Auto) (0.0-8.0) % Lymph # (Auto) 0.1 L (1.0-4.8) th/mm3 ABG pCO2 (38-42) mmHg ABG HCO3 (22-26) mmol/L ABG Base Excess (-2-2) mmol/L Potassium (3.5-5.1) meq/L BUN (7-18) mg/dL Creatinine (0.60-1.30) mg/dL Estimated GFR (>89) mL/min POC Glucose (68-110) mg/dl Random Glucose (74-106) mg/dL Lactic Acid 2.4 H (0.4-2.0) mmol/L CK-MB (CK-2) (0.5-3.6) ng/mL Troponin I 0.14 H (0.02-0.05) ng/mL B-Natriuretic Peptide (0-100) pg/mL Total Protein (6.4-8.2) g/dL Albumin (3.4-5.0) g/dL 05/08/18 05/08/18 Range/Units 04:19 07:57 RBC (4.50-5.90) mil/mm3 Hgb (13.0-17.0) gm/dL Hct (39.0-51.0) % MCV (80.0-100.0) fL RDW (11.6-17.2) % Plt Count (150-450) th/mm3 Neut % (Auto) (16.0-70.0) % Lymph % (Auto) (9.0-44.0) % [place] % (Auto) (0.0-8.0) % Lymph # (Auto) (1.0-4.8) th/mm3 ABG pCO2 (38-42) mmHg ABG HCO3 (22-26) mmol/L ABG Base Excess (-2-2) mmol/L Potassium 5.2 H (3.5-5.1) meq/L BUN 47 H (7-18) mg/dL Creatinine 6.81 H (0.60-1.30) mg/dL Estimated GFR 10 L (>89) mL/min POC Glucose 119 H (68-110) mg/dl Random Glucose 132 H (74-106) mg/dL Lactic Acid (0.4-2.0) mmol/L CK-MB (CK-2) (0.5-3.6) ng/mL Troponin I (0.02-0.05) ng/mL B-Natriuretic Peptide (0-100) pg/mL Total Protein 8.3 H D (6.4-8.2) g/dL Albumin 3.3 L (3.4-5.0) g/dL Short CBC 05/07/18 05/07/18 Range/Units 13:36 22:30 WBC 4.8 4.6 (4.0-11.0) th/mm3 Hgb 13.3 12.5 L (13.0-17.0) gm/dL Hct 41.2 38.3 L (39.0-51.0) % Plt Count 134 L 122 L (150-450) th/mm3 BMP 05/07/18 05/08/18 13:36 04:19 Sodium 136 137 Potassium 5.5 H 5.2 H Chloride 102 100 Carbon Dioxide 23.9 27.3 BUN 45 H 47 H Creatinine 7.83 H 6.81 H Calcium 9.0 8.5 Cardiac Enzymes 05/07/18 05/07/18 05/07/18 Range/Units 13:36 13:36 17:52 Total Creatine Kinase 118 Cancelled (39-308) U/L CK-MB (CK-2) 4.0 H (0.5-3.6) ng/mL Troponin I 0.14 H Cancelled 0.10 H (0.02-0.05) ng/mL 05/07/18 Range/Units 22:30 Total Creatine Kinase (39-308) U/L CK-MB (CK-2) (0.5-3.6) ng/mL Troponin I 0.14 H (0.02-0.05) ng/mL Liver Function 05/07/18 05/08/18 Range/Units 13:36 04:19 Total Bilirubin 0.6 0.5 (0.2-1.0) mg/dL AST 30 26 (15-37) U/L ALT 16 16 (12-78) U/L Alkaline Phosphatase 76 72 (45-117) U/L Albumin 3.6 3.3 L (3.4-5.0) g/dL <Bere Rubalcava V - 05/08/18 10:10> - Imaging Impressions Chest X-Ray 05/08/18 12:00 CONCLUSION: 1. Stable moderate-sized right pleural effusion. 2. Persistent right basilar atelectasis and/or mild infiltrate. 3. Mild pulmonary vascular congestion. 4. Cardiomegaly. <Quang Mclaughlin - 05/09/18 08:22> Impressions Chest X-Ray 05/07/18 13:24 CONCLUSION: Consolidation and effusion in the right base. <Bere Rubalcava V - 05/08/18 10:10> Physical Exam Vital signs: Vital Signs 05/08/18 08:46 05/08/18 09:00 05/08/18 12:00 Temperature 97.6 F Pulse Rate 115 H 112 H Respiratory Rate 18 20 Blood Pressure 130/80 Pulse Oximetry 97 05/08/18 19:34 05/08/18 19:35 05/08/18 20:00 Temperature 97.6 F Pulse Rate 112 H 105 H Respiratory Rate 20 20 Blood Pressure 109/71 Pulse Oximetry 97 96 05/08/18 23:28 05/08/18 23:34 05/09/18 00:00 Temperature 97.3 F L Pulse Rate 103 H 95 H Respiratory Rate 32 H 20 Blood Pressure 115/72 Pulse Oximetry 94 L 96 95 05/09/18 03:46 05/09/18 04:00 05/09/18 08:18 Temperature 97.4 F L Pulse Rate 88 94 H 99 H Respiratory Rate 15 20 17 Blood Pressure 108/58 L Pulse Oximetry 95 94 L Intake & Output 05/08/18 05/09/18 05/09/18 18:59 06:59 18:59 Intake Total 650 / 650 50 / 50 Output Total 3000 / 3000 Balance -2350 / -2350 50 / 50 Weight 58.7 kg Intake: IV 150 / 150 50 / 50 Zosyn 2.25 GM Premix 2.25 gm In 150 / 150 50 / 50 50 ml @ 100 mls/hr IV.SIG Q8H BILL Rx#:[id number] Oral 500 / 500 Output: Hemodialysis Amount 3000 / 3000 Other: # Voids 0 <uQang Mclaughlin - 05/09/18 08:22> Vital Signs 05/07/18 13:10 05/07/18 13:18 05/07/18 13:35 Temperature 98 F Pulse Rate 119 H 116 H 115 H Respiratory Rate 40 H 20 25 H Blood Pressure Pulse Oximetry 100 100 05/07/18 13:36 05/07/18 14:46 05/07/18 16:20 Temperature Pulse Rate 117 H 117 H Respiratory Rate 22 22 Blood Pressure 130/60 Pulse Oximetry 100 97 05/07/18 17:55 05/07/18 20:00 05/07/18 21:17 Temperature 98 F Pulse Rate 110 H 126 H Respiratory Rate 22 22 Blood Pressure 142/63 H 140/68 Pulse Oximetry 98 100 99 05/08/18 00:00 05/08/18 00:04 05/08/18 03:21 Temperature 99.2 F Pulse Rate 130 H 137 H 130 H Respiratory Rate 26 H 34 H 24 Blood Pressure 137/72 Pulse Oximetry 100 99 05/08/18 04:00 05/08/18 07:35 05/08/18 08:00 Temperature 98.3 F 97.6 F Pulse Rate 123 H 120 H Respiratory Rate 22 25 H Blood Pressure 107/55 L 141/72 H Pulse Oximetry 98 98 99 05/08/18 08:46 Temperature Pulse Rate Respiratory Rate 18 Blood Pressure Pulse Oximetry Intake & Output 05/07/18 05/08/18 05/08/18 18:59 06:59 18:59 Intake Total 710 / 710 50 / 50 Output Total 3000 / 3000 Balance 710 / 710 -3000 / -3000 50 / 50 Weight 68.039 kg 61.1 kg Intake: IV 710 / 710 50 / 50 Azithromycin Inj 500 MG In NS 250 / 250 Inj 250 ML @ 250 mls/hr IV.SIG STAT STA Rx#:[id number] Calcium Gluconate Inj 1 GM In 110 / 110 NS Inj 100 ML @ 110 mls/hr IV. SIG ONCE ONE Rx#:[id number] Maxipime Inj 2,000 MG In NS Inj 100 / 100 100 ML @ 200 mls/hr IV.SIG STAT STA Rx#:[id number] Zosyn 2.25 GM Premix 2.25 gm In 50 / 50 50 ml @ 100 mls/hr IV.SIG Q8H BILL Rx#:[id number] Vancomycin Inj 1,000 MG In NS 250 / 250 Inj 250 ML @ 250 mls/hr IV.SIG ONCE ONE Rx#:[id number] Output: Hemodialysis Amount 3000 / 3000 Other: # Voids 0 Weight On Admission 68.039 kg <Bere Rubalcava V - 05/08/18 10:10> Narrative: GENERAL: alert and oriented. SKIN: Warm and dry. NECK: Supple, trachea midline. No JVD. CARDIOVASCULAR: Regular rate and rhythm without murmurs, gallops, or rubs. Tachycardia RESPIRATORY: Breath sounds diminished in bilateral lung buitrago. Pt undergoing breathing treatment. Improved cough and work of breathing compared to yesterday. No accessory muscle use. GASTROINTESTINAL: Abdomen soft, non-tender, nondistended. +BS MUSCULOSKELETAL: No cyanosis, or edema. BACK: Nontender without obvious deformity. No CVA tenderness. <Bere Rubalcava V - 05/08/18 10:10> Assessment and Plan - Assessment (1) Healthcare associated bacterial pneumonia Code(s): J15.9 - Unspecified bacterial pneumonia Status: Acute (2) Acute hyperkalemia Code(s): E87.5 - Hyperkalemia Status: Acute (3) ESRD (end stage renal disease) on dialysis Code(s): N18.6 - End stage renal disease; Z99.2 - Dependence on renal dialysis Status: Chronic (4) CHF (congestive heart failure) Code(s): I50.9 - Heart failure, unspecified Status: Chronic (5) Elevated troponin Code(s): R74.8 - Abnormal levels of other serum enzymes Status: Acute (6) Pleural effusion Code(s): J90 - Pleural effusion, not elsewhere classified Status: Acute (7) Diabetes Code(s): E11.9 - Type 2 diabetes mellitus without complications Status: Chronic (8) Hx of cocaine abuse Code(s): Z87.898 - Personal history of other specified conditions Status: Chronic <LissetteQuang - 05/09/18 08:22> (1) Healthcare associated bacterial pneumonia Code(s): J15.9 - Unspecified bacterial pneumonia Status: Acute (2) Acute hyperkalemia Code(s): E87.5 - Hyperkalemia Status: Acute (3) ESRD (end stage renal disease) on dialysis Code(s): N18.6 - End stage renal disease; Z99.2 - Dependence on renal dialysis Status: Chronic (4) CHF (congestive heart failure) Code(s): I50.9 - Heart failure, unspecified Status: Chronic (5) Elevated troponin Code(s): R74.8 - Abnormal levels of other serum enzymes Status: Acute (6) Pleural effusion Code(s): J90 - Pleural effusion, not elsewhere classified Status: Acute (7) Diabetes Code(s): E11.9 - Type 2 diabetes mellitus without complications Status: Chronic (8) Hx of cocaine abuse Code(s): Z87.898 - Personal history of other specified conditions Status: Chronic <Bere Rubalcava V - 05/08/18 10:02> - Assessment and Plan 62-year-old male with severe past medical history and comorbidities including COPD, CHF, with reduced ejection fraction of under 20%, end-stage kidney disease currently on dialysis, history of cocaine abuse, diabetes, high blood pressure, admitted for healthcare associated pneumonia with pleural effusions and likely CHF exacerbation. Healthcare associated bacterial pneumonia Continue Zosyn 2.25mg IV q 8hr (renally dosed for hemodialysis patients, discussed with pharmacy) Albuterol treatments as needed every 4 hours for shortness of breath Robituccin as needed for cough Acute hyperkalemia Likely related to end-stage renal disease Improved this morning Nephrology adjusting dialysis settings Congestive heart failure Hemodialysis today End-stage kidney disease on dialysis Nephrology following, HD today Elevated troponin Patient denies chest pain Likely baseline for patient History of cocaine abuse UDS ordered FEN: - PO hydration - Monitor replace electrolytes as needed - Cardiac diet PPX: - Bilateral lower extremity SCDs - Zofran prn for nausea - Protonix 40mgs daily for GI ppx Pt dw Dr. Mclaughlin, Dr. Gusman, and Dr. Peoples Hospital Course: 62-year-old male with severe past medical history and comorbidities including COPD, CHF, with reduced ejection fraction of under 20%, end-stage kidney disease currently on dialysis, history of cocaine abuse, diabetes, high blood pressure, is venous admitted for healthcare associated pneumonia with pleural effusions and likely CHF exacerbation. Chronic cough for about 2 months, patient currently receiving dialysis. Patient received azithromycin 500 mg IV once, cefepime 2000 mg IV once, vancomycin 1000 mg IV once, several breathing treatments, methylprednisolone 125 mg IV once WBC 4 .8 ABG with pH of 7.41, PCO2 of 33, HCO3 of 21 Vital signs significant for increased respiratory rate of 25 and tachycardic up to 135 bpm Patient wears 3 L of oxygen at homePt received dialysis on day of admission to remove 3L of fluids and again day following admission as is his current schedule. <Bere Rubalcava V - 05/08/18 10:10> - Attending Attestation The exam, history, and the medical decision-making described in the above note were completed with the assistance of the resident physician. I reviewed and agree with the findings presented. I attest that I had a [id number] encounter with the patient on the same day, and personally performed and documented my assessment and findings in the medical record. <Quang Mclaughlin - 05/09/18 08:22> <Bere Rubalcava V - Last Filed: 05/08/18 10:02> (4) CHF (congestive heart failure) Qualifiers: Heart failure chronicity: acute on chronic (7) Diabetes Qualifiers: Diabetes mellitus complication status: with kidney complications Diabetes mellitus complication detail: with chronic kidney disease Chronic kidney disease stage: on chronic dialysis <Quang Mclaughlin - Last Filed: 05/09/18 08:22> (4) CHF (congestive heart failure) Qualifiers: Heart failure chronicity: acute on chronic (7) Diabetes Qualifiers: Diabetes mellitus complication status: with kidney complications Diabetes mellitus complication detail: with chronic kidney disease Chronic kidney disease stage: on chronic dialysis <Bere Rubalcava V - Last Filed: 05/08/18 10:02> (4) CHF (congestive heart failure) Qualifiers: Heart failure chronicity: acute on chronic (7) Diabetes Qualifiers: Diabetes mellitus complication status: with kidney complications Diabetes mellitus complication detail: with chronic kidney disease Chronic kidney disease stage: on chronic dialysis <Quang Mclaughlin - Last Filed: 05/09/18 08:22> (4) CHF (congestive heart failure) Qualifiers: Heart failure chronicity: acute on chronic (7) Diabetes Qualifiers: Diabetes mellitus complication status: with kidney complications Diabetes mellitus complication detail: with chronic kidney disease Chronic kidney disease stage: on chronic dialysis
--- NOTE | 2018-05-08 12:14 | XR ---
EXAM DATE: 05/08/2018 12:09 PM EST AGE/SEX: 62 years / Male INDICATIONS: . Short of breath, lethargic, weakness CLINICAL DATA: This is the patient's subsequent encounter. Patient reports that signs and symptoms h ave been present for 4 - 6 days and indicates a pain score of Nonresponsive. MEDICAL/SURGICAL HISTORY: Non-responsive. Non-responsive. [place] [facility] [place]. . FINDINGS: There is a stable moderate-sized right pleural effusion. Right basilar atelectasis and/or infiltrate is also noted. Mild pulmonary vascular congestion is noted. The heart is enlarged. Left axillary sten t is again noted. CONCLUSION: 1. Stable moderate-sized right pleural effusion. 2. Persistent right basilar atelectasis and/or mild infiltrate. 3. Mild pulmonary vascular congestion. 4. Cardiomegaly. Electronically signed by: Enzo Price MD Board Certified Radiologist 05/08/2018 12:12 PM EST
[2018-05-08] MEDS: Spironolactone 25 MG Tablet PO SCH (13:01)
[2018-05-08] MEDS: Vitamin B Complex/Vit C/Folic Tablet PO SCH (13:01)
[2018-05-08] MEDS: Lisinopril 10 MG Tablet PO SCH (13:01)
--- NOTE | 2018-05-08 16:50 | ECG ---
Date Performed: 05/07/2018 Time Performed: 13:49:12 PTAGE: 62 years EKG: SINUS TACHYCARDIA SEPTAL MYOCARDIAL INFARCTION MODERATE T-WAVE ABNORMALITY, CONSIDER LATERA L ISCHEMIA ABNORMAL ECG PREVIOUS TRACING : 01/19/2018 15.28 Since the previous tracing, no significant change noted DOCTOR: Sebas Jean-Baptiste Interpretating Date/Time 05/08/2018 16:49:32
[2018-05-09] MEDS: Piperacil/Tazo 2.25 GM Premix 2.25 GM/50 ML PIGGYBACK IV.SIG SCH ×3 (02:13→16:14)
[2018-05-09 07:26] LABS: Hematocrit 37.7 % (39.0-51.0); Hemoglobin 12.5 gm/dL (13.0-17.0); Mean Corpuscular HGB Conc 33.2 % (32.0-36.0); Mean Corpuscular Hemoglobin 32.6 pg (27.0-34.0); Mean Corpuscular Volume 98.2 fL (80.0-100.0); Mean Platelet Volume 11.2 fL (7.0-11.0); Platelet Count 121 th/mm3 (150-450); Red Blood Count 3.84 mil/mm3 (4.50-5.90); Red Cell Distribution Width 19.4 % (11.6-17.2); White Blood Count 4.3 th/mm3 (4.0-11.0)
[2018-05-09 07:42] LABS: Calcium 8.3 mg/dL (8.5-10.1); Carbon Dioxide 29.6 meq/L (21.0-32.0); Potassium 4.6 meq/L (3.5-5.1)
[2018-05-09] MEDS: Insulin NovoLOG Aspart Correctional Sugar Inj SQ SCH ×4 (08:18→20:39)
[2018-05-09] MEDS: Spironolactone 25 MG Tablet PO SCH (08:20)
[2018-05-09] MEDS: Lisinopril 10 MG Tablet PO SCH (08:20)
[2018-05-09] MEDS: Vitamin B Complex/Vit C/Folic Tablet PO SCH (08:20)
--- NOTE | 2018-05-09 10:36 | P.PNFP ---
Subjective Interval history: Patient seen and evaluated this morning. He is doing slightly better, states his cough is significantly improved, he still remains short of breath but feeling a little bit better. He states his goals are to get stronger so he can return home. He denies any headaches, chest pain, eating and drinking okay. Discussed plan of care, denies any pain. Patient agrees with staying at least another day and reevaluate tomorrow for possible discharge. Results - Labs Result diagrams: 05/09/18 05:57 05/09/18 05:57 Abnormal lab results 05/08/18 05/08/18 05/09/18 Range/Units 12:23 21:29 05:51 RBC (4.50-5.90) mil/mm3 Hgb (13.0-17.0) gm/dL Hct (39.0-51.0) % RDW (11.6-17.2) % Plt Count (150-450) th/mm3 MPV (7.0-11.0) fL BUN (7-18) mg/dL Creatinine (0.60-1.30) mg/dL Estimated GFR (>89) mL/min POC Glucose 124 H 118 H (68-110) mg/dl Calcium (8.5-10.1) mg/dL B-Natriuretic Peptide 3689 H (0-100) pg/mL 05/09/18 05/09/18 Range/Units 05:57 05:57 RBC 3.84 L (4.50-5.90) mil/mm3 Hgb 12.5 L (13.0-17.0) gm/dL Hct 37.7 L (39.0-51.0) % RDW 19.4 H (11.6-17.2) % Plt Count 121 L (150-450) th/mm3 MPV 11.2 H (7.0-11.0) fL BUN 36 H (7-18) mg/dL Creatinine 5.68 H (0.60-1.30) mg/dL Estimated GFR 12 L (>89) mL/min POC Glucose (68-110) mg/dl Calcium 8.3 L (8.5-10.1) mg/dL B-Natriuretic Peptide (0-100) pg/mL Short CBC 05/09/18 Range/Units 05:57 WBC 4.3 (4.0-11.0) th/mm3 Hgb 12.5 L (13.0-17.0) gm/dL Hct 37.7 L (39.0-51.0) % Plt Count 121 L (150-450) th/mm3 [facility] 05/09/18 05:57 Sodium 137 Potassium 4.6 Chloride 99 Carbon Dioxide 29.6 BUN 36 H Creatinine 5.68 H Calcium 8.3 L - Imaging Impressions Chest X-Ray 05/08/18 12:00 CONCLUSION: 1. Stable moderate-sized right pleural effusion. 2. Persistent right basilar atelectasis and/or mild infiltrate. 3. Mild pulmonary vascular congestion. 4. Cardiomegaly. Physical Exam Vital signs: Vital Signs 05/08/18 12:00 05/08/18 19:34 05/08/18 19:35 Temperature 97.6 F Pulse Rate 112 H 112 H Respiratory Rate 20 20 Blood Pressure 130/80 Pulse Oximetry 97 97 05/08/18 20:00 05/08/18 23:28 05/08/18 23:34 Temperature 97.6 F Pulse Rate 105 H 103 H Respiratory Rate 20 32 H Blood Pressure 109/71 Pulse Oximetry 96 94 L 96 05/09/18 00:00 05/09/18 03:46 05/09/18 04:00 Temperature 97.3 F L 97.4 F L Pulse Rate 95 H 88 94 H Respiratory Rate 20 15 20 Blood Pressure 115/72 108/58 L Pulse Oximetry 95 95 05/09/18 08:18 Temperature Pulse Rate 99 H Respiratory Rate 17 Blood Pressure Pulse Oximetry 94 L Intake & Output 05/08/18 05/09/18 05/09/18 18:59 06:59 18:59 Intake Total 650 / 650 50 / 50 50 / 50 Output Total 3000 / 3000 Balance -2350 / -2350 50 / 50 50 / 50 Weight 58.7 kg Intake: IV 150 / 150 50 / 50 50 / 50 Zosyn 2.25 GM Premix 2.25 gm In 150 / 150 50 / 50 50 / 50 50 ml @ 100 mls/hr IV.SIG Q8H BILL Rx#:[id number] Oral 500 / 500 Output: Hemodialysis Amount 3000 / 3000 Other: # Voids 0 Narrative: GENERAL: alert and oriented. Cooperative, talking in short sentences, but in NAD. SKIN: Warm and dry. CARDIOVASCULAR: Regular rate and rhythm without murmurs, gallops, or rubs. Improved tachycardia RESPIRATORY: Breath sounds diminished in bilateral lung buitrago, R>L. Minimal cough, and improved work of breathing compared to yesterday. No accessory muscle use. GASTROINTESTINAL: Abdomen soft, non-tender, nondistended. +BS MUSCULOSKELETAL: No cyanosis, or edema. Assessment and Plan - Assessment (1) Healthcare associated bacterial pneumonia Code(s): J15.9 - Unspecified bacterial pneumonia Status: Acute (2) Acute hyperkalemia Code(s): E87.5 - Hyperkalemia Status: Resolved (3) ESRD (end stage renal disease) on dialysis Code(s): N18.6 - End stage renal disease; Z99.2 - Dependence on renal dialysis Status: Chronic (4) CHF (congestive heart failure) Code(s): I50.9 - Heart failure, unspecified Status: Chronic (5) Elevated troponin Code(s): R74.8 - Abnormal levels of other serum enzymes Status: Chronic (6) Pleural effusion Code(s): J90 - Pleural effusion, not elsewhere classified Status: Acute (7) Diabetes Code(s): E11.9 - Type 2 diabetes mellitus without complications Status: Chronic (8) Hx of cocaine abuse Code(s): Z87.898 - Personal history of other specified conditions Status: Chronic - Assessment and Plan 62-year-old male with severe past medical history and comorbidities including COPD, CHF, with reduced ejection fraction of under 20%, end-stage kidney disease currently on dialysis, history of cocaine abuse, diabetes, high blood pressure, admitted for healthcare associated pneumonia with pleural effusions and likely CHF exacerbation. Healthcare associated bacterial pneumonia Continue Zosyn 2.25mg IV q 8hr (renally dosed for hemodialysis patients, discussed with pharmacy) Albuterol treatments as needed every 4 hours for shortness of breath Robitussin as needed for cough Acute hyperkalemia- resolved Likely related to end-stage renal disease Resolved. This morning 4.6 Congestive heart failure Hemodialysis yesterday and prior day Total of 6L removed. BNP 3689 down from >5000 End-stage kidney disease on dialysis Nephrology following, HD TTS Avoid Nephrotoxic medications Dialysis tomorrow Elevated troponin Patient denies chest pain Likely baseline for patient FEN: - PO hydration - Monitor replace electrolytes as needed - Cardiac diet PPX: - Bilateral lower extremity SCDs - Zofran prn for nausea - Protonix 40mgs daily for GI ppx Pt dw Dr. Mclaughlin, Dr. Gusman, and Dr. Peoples Hospital Course: 62-year-old male with severe past medical history and comorbidities including COPD, CHF, with reduced ejection fraction of under 20%, end-stage kidney disease currently on dialysis, history of cocaine abuse, diabetes, high blood pressure, is venous admitted for healthcare associated pneumonia with pleural effusions and likely CHF exacerbation. Chronic cough for about 2 months, patient currently receiving dialysis. Patient received azithromycin 500 mg IV once, cefepime 2000 mg IV once, vancomycin 1000 mg IV once, several breathing treatments, methylprednisolone 125 mg IV once WBC 4 .8 ABG with pH of 7.41, PCO2 of 33, HCO3 of 21 Vital signs significant for increased respiratory rate of 25 and tachycardic up to 135 bpm Patient wears 3 L of oxygen at homePt received dialysis on day of admission to remove 3L of fluids and again day following admission as is his current schedule. Pt completed two rounds of dialysis and has improved his SOB. He is debilitates and needs continue work with PT. (4) CHF (congestive heart failure) Qualifiers: Heart failure chronicity: acute on chronic (7) Diabetes Qualifiers: Diabetes mellitus complication status: with kidney complications Diabetes mellitus complication detail: with chronic kidney disease Chronic kidney disease stage: on chronic dialysis
--- NOTE | 2018-05-09 10:38 | P.DCO ---
- Physical Therapy Order: Evaluate and treat, Improve ambulation, Strength and gait training - Case Management Consult Case Management Consult-Home Health: Yes - Certification I have seen patient Tenzin Bloom on 05/09/18. My clinical findings support the need for the requested home health care services because: Limited mobility due to disease progression, Patient has SOB, Deconditioned with increased weakness, Medication compliance is questionable, Limited ability to care for self, High risk of falls I certify that my clinical findings support that this patient is homebound because: Hx COPD - exertion dyspnea/weakness, Unsteady gait/balance
--- NOTE | 2018-05-09 10:53 | P.PNNP ---
Subjective Interval history: Reports that cough and shortness of breath has improved. Hemodialysis yesterday tolerated well. <Skylar Paulino - Last Filed: 05/09/18 15:02> Physical Exam Vital signs: Vital Signs 05/08/18 12:00 05/08/18 19:34 05/08/18 19:35 Temperature 97.6 F Pulse Rate 112 H 112 H Respiratory Rate 20 20 Blood Pressure 130/80 Pulse Oximetry 97 97 05/08/18 20:00 05/08/18 23:28 05/08/18 23:34 Temperature 97.6 F Pulse Rate 105 H 103 H Respiratory Rate 20 32 H Blood Pressure 109/71 Pulse Oximetry 96 94 L 96 05/09/18 00:00 05/09/18 03:46 05/09/18 04:00 Temperature 97.3 F L 97.4 F L Pulse Rate 95 H 88 94 H Respiratory Rate 20 15 20 Blood Pressure 115/72 108/58 L Pulse Oximetry 95 95 05/09/18 08:18 Temperature Pulse Rate 99 H Respiratory Rate 17 Blood Pressure Pulse Oximetry 94 L Intake & Output 05/08/18 05/09/18 05/09/18 18:59 06:59 18:59 Intake Total 650 / 650 50 / 50 50 / 50 Output Total 3000 / 3000 Balance -2350 / -2350 50 / 50 50 / 50 Weight 58.7 kg Intake: IV 150 / 150 50 / 50 50 / 50 Zosyn 2.25 GM Premix 2.25 gm In 150 / 150 50 / 50 50 / 50 50 ml @ 100 mls/hr IV.SIG Q8H BILL Rx#:[id number] Oral 500 / 500 Output: Hemodialysis Amount 3000 / 3000 Other: # Voids 0 Narrative: GENERAL: alert and oriented. SKIN: Warm and dry. NECK: Supple, trachea midline. No JVD. CARDIOVASCULAR: Regular rate and rhythm without murmurs, gallops, or rubs. AVF positive thrill and bruit. RESPIRATORY: Breath sounds diminished. No accessory muscle use. No rales, rhonchi, or wheezing. GASTROINTESTINAL: Abdomen soft, non-tender, nondistended. +BS MUSCULOSKELETAL: No cyanosis, or edema. BACK: Nontender without obvious deformity. No CVA tenderness. <Skylar Paulino - Last Filed: 05/09/18 15:02> Vital signs: Vital Signs 05/08/18 23:28 05/08/18 23:34 05/09/18 00:00 Temperature 97.3 F L Pulse Rate 103 H 95 H Respiratory Rate 32 H 20 Blood Pressure 115/72 Pulse Oximetry 94 L 96 95 05/09/18 03:46 05/09/18 04:00 05/09/18 08:18 Temperature 97.4 F L Pulse Rate 88 94 H 99 H Respiratory Rate 15 20 17 Blood Pressure 108/58 L Pulse Oximetry 95 94 L 05/09/18 11:50 05/09/18 15:46 05/09/18 16:00 Temperature 97.6 F 97.3 F L Pulse Rate 95 H 86 104 H Respiratory Rate 20 18 20 Blood Pressure 104/66 86/57 L Pulse Oximetry 99 94 L 90 L 05/09/18 18:04 05/09/18 20:00 05/09/18 20:07 Temperature 98.1 F 97.7 F Pulse Rate 100 H 92 H 100 H Respiratory Rate 16 20 16 Blood Pressure 115/57 L 117/63 Pulse Oximetry 96 98 Intake & Output 05/09/18 05/09/18 05/10/18 06:59 18:59 06:59 Intake Total 50 / 50 50 / 50 50 / 50 Balance 50 / 50 50 / 50 50 / 50 Weight 58.7 kg Intake: IV 50 / 50 50 / 50 50 / 50 Zosyn 2.25 GM Premix 2.25 gm In 50 / 50 50 / 50 50 / 50 50 ml @ 100 mls/hr IV.SIG Q8H [facility] Rx#:[id number] Other: # Voids 0 <Valentín Peck Q - Last Filed: 05/09/18 22:45> Assessment and Plan - Assessment (1) ESRD (end stage renal disease) on dialysis Code(s): N18.6 - End stage renal disease; Z99.2 - Dependence on renal dialysis Status: Chronic Plan: Hemodialysis T/T/S Avoid IVF and gadolinium. HD yesterday with 3 liters of fluid removed. Hemodialysis planned for tomorrow. (2) PNA (pneumonia) Code(s): J18.9 - Pneumonia, unspecified organism Status: Acute Plan: On Zosyn chest Xray with effusion right lung base. (3) CHF (congestive heart failure) Code(s): I50.9 - Heart failure, unspecified Status: Chronic Qualifiers: Heart failure chronicity: acute on chronic Plan: shortness of breath has improved. HD tomorrow. <Skylar Paulino - Last Filed: 05/09/18 15:02> - Assessment (1) ESRD (end stage renal disease) on dialysis Code(s): N18.6 - End stage renal disease; Z99.2 - Dependence on renal dialysis Status: Chronic Plan: Patient seen and examined, agree with above. Continue antibiotics. HD will be in AM, remove fluid as tolerated. (2) PNA (pneumonia) Code(s): J18.9 - Pneumonia, unspecified organism Status: Acute (3) CHF (congestive heart failure) Code(s): I50.9 - Heart failure, unspecified Status: Chronic Qualifiers: Heart failure chronicity: acute on chronic <Barber Peck - Last Filed: 05/09/18 22:45>
--- NOTE | 2018-05-09 11:43 | XR ---
EXAM DATE: 05/09/2018 11:34 AM EST AGE/SEX: 62 years / Male INDICATIONS: . Pneumonia. CLINICAL DATA: This is the patient's initial encounter. Patient reports that signs and symptoms have been present for 1 week and indicates a pain score of 5/10. MEDICAL/SURGICAL HISTORY: Hypertension. diabetes, Hepatitis C, CHF, renal failure, bradycardia None. COMPARISON: . FINDINGS: Consolidative changes and effusion are present on the right. Fusion is moderate to large in size. Mild interstitial edema is present with cardiomegaly And vascular stent is seen in the veins about the right shoulder. CONCLUSION: Persistent consolidation and moderate to large effusion right base Electronically signed by: Mikhail Abrams MD Board Certified Radiologist 05/09/2018 11:42 AM EST
[2018-05-10] MEDS: Piperacil/Tazo 2.25 GM Premix 2.25 GM/50 ML PIGGYBACK IV.SIG SCH ×3 (02:10→17:20)
[2018-05-10 04:43] LABS: Hematocrit 38.4 % (39.0-51.0); Hemoglobin 13.1 gm/dL (13.0-17.0); Mean Corpuscular Hemoglobin 32.4 pg (27.0-34.0); Mean Corpuscular Volume 95.4 fL (80.0-100.0); Mean Platelet Volume 11.5 fL (7.0-11.0); Platelet Count 135 th/mm3 (150-450); Red Blood Count 4.03 mil/mm3 (4.50-5.90)
[2018-05-10 05:17] LABS: Alanine Aminotransferase 13 U/L (12-78); Albumin 3.1 g/dL (3.4-5.0); Alkaline Phosphatase 59 U/L (45-117); Anion Gap 11 meq/L (5-15); Aspartate Aminotransferase 26 U/L (15-37); Blood Urea Nitrogen 51 mg/dL (7-18); Calcium 8.2 mg/dL (8.5-10.1); Carbon Dioxide 27.5 meq/L (21.0-32.0); Chloride 97 meq/L (98-107); Glomerular Filtration Rate 10 mL/min (>89); Glucose,Random 94 mg/dL (74-106); Lactate Dehydrogenase 174 U/L (87-241); Magnesium 2.2 mg/dL (1.5-2.5); Potassium 4.8 meq/L (3.5-5.1); Sodium 135 meq/L (136-145); Total Protein 7.8 g/dL (6.4-8.2)
[2018-05-10 05:25] LABS: Activated Partial Thrombo Time 29.3 sec (23.4-31.7); INR 1.2 Ratio; Prothrombin Time 12.5 sec (9.8-11.6)
--- NOTE | 2018-05-10 07:35 | XR ---
EXAM DATE: 05/10/2018 7:32 AM EST AGE/SEX: 62 years / Male INDICATIONS: Short of breath, evaluate pleural effusion CLINICAL DATA: This is the patient's subsequent encounter. Patient reports that signs and symptoms h ave been present for 3 days and indicates a pain score of 3/10. MEDICAL/SURGICAL HISTORY: Hypertension. Congestive heart failure. Hepatitis C. renal failure , diabetic . vascular stent COMPARISON: [facility], CHEST 2V AP&LAT, 05/09/2018. . FINDINGS: Persistent hazy bibasilar pleural-parenchymal opacity, right worse than left. Visualized cardiac cont ours are unchanged. CONCLUSION: No significant change Electronically signed by: Minh Silva MD Board Certified Radiologist 05/10/2018 7:34 AM EST
[2018-05-10] MEDS: Insulin NovoLOG Aspart Correctional Sugar Inj SQ SCH ×4 (08:00→21:18)
[2018-05-10] MEDS: Lisinopril 10 MG Tablet PO SCH (09:00)
[2018-05-10] MEDS: Spironolactone 25 MG Tablet PO SCH (09:00)
[2018-05-10] MEDS: Vitamin B Complex/Vit C/Folic Tablet PO SCH (09:03)
--- NOTE | 2018-05-10 10:49 | XR ---
EXAM DATE: 05/10/2018 10:40 AM EST AGE/SEX: 62 years / Male INDICATIONS: Post right thoracentesis CLINICAL DATA: This is the patient's subsequent encounter. Patient reports that signs and symptoms h ave been present for 1 day and indicates a pain score of 0/10. MEDICAL/SURGICAL HISTORY: . Hypertension. Congestive heart failure. Hepatitis C. Renal failure, diabetic . . Vascular stent COMPARISON: [facility], CHEST 1V SINGLE AP, 05/10/2018. . FINDINGS: AP upright expiratory view of the chest demonstrates a stable enlarged cardiac silhouette. There is a right basilar pleural-parenchymal opacity, decreased in size from the earlier examination. No pneumo thorax is visualized. Bones demonstrate no acute finding. There are vascular stents in the left axill a. CONCLUSION: 1. No pneumothorax following recent right thoracentesis. Right pleural fluid remains but is overall decreased in volume. 2. Stable enlargement of the cardiac silhouette. Electronically signed by: Minh Winston MD Board Certified Radiologist 05/10/2018 10:47 AM EST
--- NOTE | 2018-05-10 11:04 | P.PNFP ---
Subjective Interval history: Patient seen and evaluated this morning. He states shortness of breath and cough has improved, he is upset that he cannot eat at this point because of n.p.o. status for procedure. He understands he needs to be done. He denies any chest pain, eating and drinking okay. He will go to hemodialysis today, according of how that goes he might go home today. No acute event overnight, vital signs remained stable. Results - Labs Result diagrams: 05/10/18 03:55 05/10/18 03:55 Abnormal lab results 05/09/18 05/09/18 05/10/18 Range/Units 17:18 20:18 03:55 RBC 4.03 L (4.50-5.90) mil/mm3 Hct 38.4 L (39.0-51.0) % RDW 19.0 H (11.6-17.2) % Plt Count 135 L (150-450) th/mm3 MPV 11.5 H (7.0-11.0) fL PT (9.8-11.6) sec Sodium (136-145) meq/L Chloride (98-107) meq/L BUN (7-18) mg/dL Creatinine (0.60-1.30) mg/dL Estimated GFR (>89) mL/min POC Glucose 167 H 134 H (68-110) mg/dl Calcium (8.5-10.1) mg/dL Albumin (3.4-5.0) g/dL 05/10/18 05/10/18 Range/Units 03:55 03:55 RBC (4.50-5.90) mil/mm3 Hct (39.0-51.0) % RDW (11.6-17.2) % Plt Count (150-450) th/mm3 MPV (7.0-11.0) fL PT 12.5 H (9.8-11.6) sec Sodium 135 L (136-145) meq/L Chloride 97 L (98-107) meq/L BUN 51 H (7-18) mg/dL Creatinine 7.09 H (0.60-1.30) mg/dL Estimated GFR 10 L (>89) mL/min POC Glucose (68-110) mg/dl Calcium 8.2 L (8.5-10.1) mg/dL Albumin 3.1 L (3.4-5.0) g/dL Short CBC 05/10/18 Range/Units 03:55 WBC 4.0 (4.0-11.0) th/mm3 Hgb 13.1 (13.0-17.0) gm/dL Hct 38.4 L (39.0-51.0) % Plt Count 135 L (150-450) th/mm3 BMP 05/10/18 03:55 Sodium 135 L Potassium 4.8 Chloride 97 L Carbon Dioxide 27.5 BUN 51 H Creatinine 7.09 H Calcium 8.2 L Liver Function 05/10/18 Range/Units 03:55 Total Bilirubin 0.5 (0.2-1.0) mg/dL AST 26 (15-37) U/L ALT 13 (12-78) U/L Alkaline Phosphatase 59 (45-117) U/L Albumin 3.1 L (3.4-5.0) g/dL - Imaging Impressions Chest X-Ray 05/09/18 00:00 CONCLUSION: Persistent consolidation and moderate to large effusion right base Chest X-Ray 05/10/18 00:00 CONCLUSION: No significant change Chest X-Ray 05/10/18 00:00 CONCLUSION: 1. No pneumothorax following recent right thoracentesis. Right pleural fluid remains but is overall decreased in volume. 2. Stable enlargement of the cardiac silhouette. Physical Exam Vital signs: Vital Signs 05/09/18 11:50 05/09/18 15:46 05/09/18 16:00 Temperature 97.6 F 97.3 F L Pulse Rate 95 H 86 104 H Respiratory Rate 20 18 20 Blood Pressure 104/66 86/57 L Pulse Oximetry 99 94 L 90 L 05/09/18 18:04 05/09/18 20:00 05/09/18 20:07 Temperature 98.1 F 97.7 F Pulse Rate 100 H 92 H 100 H Respiratory Rate 16 20 16 Blood Pressure 115/57 L 117/63 Pulse Oximetry 96 98 05/10/18 00:00 05/10/18 00:38 05/10/18 03:22 Temperature 97.8 F Pulse Rate 94 H 64 85 Respiratory Rate 20 15 19 Blood Pressure 90/64 L Pulse Oximetry 99 99 05/10/18 04:00 05/10/18 08:12 12/20/18 08:28 Temperature 98.2 F 98.3 F Pulse Rate 95 H 95 H Respiratory Rate 20 18 Blood Pressure 97/61 L 107/76 Pulse Oximetry 96 97 100 05/10/18 09:43 05/10/18 10:40 Temperature 97.4 F L Pulse Rate 94 H 101 H Respiratory Rate 24 24 Blood Pressure 90/67 L 79/60 L Pulse Oximetry 97 96 Intake & Output 05/09/18 05/10/18 05/10/18 18:59 06:59 18:59 Intake Total 50 / 50 380 / 380 Balance 50 / 50 380 / 380 Weight 58.6 kg Intake: IV 50 / 50 100 / 100 Zosyn 2.25 GM Premix 2.25 gm In 50 / 50 100 / 100 50 ml @ 100 mls/hr IV.SIG Q8H BILL Rx#:[id number] Oral 280 / 280 Other: # Voids 1 # Bowel Movements 1 Narrative: GENERAL: alert and oriented. Cooperative, talking in short sentences, but in NAD. SKIN: Warm and dry. CARDIOVASCULAR: Regular rate and rhythm without murmurs, gallops, or rubs. Improved tachycardia RESPIRATORY: Breath sounds diminished in bilateral lung buitrago, R>L, but improved from yesterday. Minimal cough. No accessory muscle use. GASTROINTESTINAL: Abdomen soft, non-tender, nondistended. +BS MUSCULOSKELETAL: No cyanosis, or edema. Assessment and Plan - Assessment (1) Healthcare associated bacterial pneumonia Code(s): J15.9 - Unspecified bacterial pneumonia Status: Acute (2) Acute hyperkalemia Code(s): E87.5 - Hyperkalemia Status: Resolved (3) ESRD (end stage renal disease) on dialysis Code(s): N18.6 - End stage renal disease; Z99.2 - Dependence on renal dialysis Status: Chronic (4) CHF (congestive heart failure) Code(s): I50.9 - Heart failure, unspecified Status: Chronic (5) Elevated troponin Code(s): R74.8 - Abnormal levels of other serum enzymes Status: Chronic (6) Pleural effusion Code(s): J90 - Pleural effusion, not elsewhere classified Status: Acute (7) Diabetes Code(s): E11.9 - Type 2 diabetes mellitus without complications Status: Chronic (8) Hx of cocaine abuse Code(s): Z87.898 - Personal history of other specified conditions Status: Chronic - Assessment and Plan 62-year-old male with severe past medical history and comorbidities including COPD, CHF, with reduced ejection fraction of under 20%, end-stage kidney disease currently on dialysis, history of cocaine abuse, diabetes, high blood pressure, admitted for healthcare associated pneumonia with pleural effusions and likely CHF exacerbation. Healthcare associated bacterial pneumonia Continue Zosyn 2.25mg IV q 8hr (renally dosed for hemodialysis patients, discussed with pharmacy) Albuterol treatments as needed every 4 hours for shortness of breath Robitussin as needed for cough R Pleural Effusion Likely chronic in nature but unresolved with HD Thoracentesis by IR this morning Pleural studies ordered Acute hyperkalemia- resolved Likely related to end-stage renal disease Resolved. This morning 4.6 Congestive heart failure Hemodialysis x2 this admission. Planning for HD today Total of 6L removed before today's session BPN ordered End-stage kidney disease on dialysis Nephrology following, HD TTS Avoid Nephrotoxic medications Dialysis today Elevated troponin Patient denies chest pain Likely baseline for patient FEN: - PO hydration - Monitor replace electrolytes as needed - Cardiac diet PPX: - Bilateral lower extremity SCDs - Zofran prn for nausea - Protonix 40mgs daily for GI ppx Disposition: Home PT arranged for pt He will likely be discharged today or tomorrow pending clinical picture. Pt dw Dr. Mclaughlin, and Dr. Peoples Hospital Course: 62-year-old male with severe past medical history and comorbidities including COPD, CHF, with reduced ejection fraction of under 20%, end-stage kidney disease currently on dialysis, history of cocaine abuse, diabetes, high blood pressure, is venous admitted for healthcare associated pneumonia with pleural effusions and likely CHF exacerbation. Chronic cough for about 2 months, patient currently receiving dialysis. Patient received azithromycin 500 mg IV once, cefepime 2000 mg IV once, vancomycin 1000 mg IV once, several breathing treatments, methylprednisolone 125 mg IV once WBC 4 .8 ABG with pH of 7.41, PCO2 of 33, HCO3 of 21 Vital signs significant for increased respiratory rate of 25 and tachycardic up to 135 bpm Patient wears 3 L of oxygen at home. Pt received dialysis on day of admission to remove 3L of fluids and again day following admission as is his current schedule. Pt completed two rounds of dialysis and has improved his SOB. He is debilitated and needs continue work with PT. 05/10: Pt received a thoracentesis to drain R pleural effusion with improved CXR. He will go to dialysis today as scheduled. Home PT has already been set up for him. (4) CHF (congestive heart failure) Qualifiers: Heart failure chronicity: acute on chronic (7) Diabetes Qualifiers: Diabetes mellitus complication status: with kidney complications Diabetes mellitus complication detail: with chronic kidney disease Chronic kidney disease stage: on chronic dialysis
[2018-05-10 12:16] LABS: Total Protein,Pleural Fluid 4.2 gm/dL
[2018-05-10 12:43] LABS: Lymphocytes,Pleural Fluid 50 %; Mesothelial,Pleural Fluid 17 %; Neutrophils,Pleural Fluid 7 %
[2018-05-10 12:44] LABS: RBC,Pleural Fluid 985 /mm3 (0-0)
--- NOTE | 2018-05-10 13:06 | US ---
EXAM DATE: 05/10/2018 12:05 PM EST AGE/SEX: 62 years / Male INDICATIONS: Right pleural effusion. CLINICAL DATA: This is the patient's initial encounter. Patient reports that signs and symptoms have been present for 1 day and indicates a pain score of 3/10. MEDICAL/SURGICAL HISTORY: . AV fistula. CHF. Cirrhosis. Substance abuse. ESRD. Dialysis. [place]. Hepatitis C. PTSD. Tricuspid valve regurgitation. None. COMPARISON: [facility] [place], [place] GUIDED THORACENTESIS RIGHT, 09/18/2017. . Proceduralist: Alen Hernandez FLUID: Total volume of 2000 cc of clear, red fluid was removed. Fluid was sent to lab for ordered studies. . . TECHNIQUE: Ultrasound guidance for thoracentesis. Thoracentesis. The risks, benefits, and alternatives to ultrasound guided thoracentesis were explained to the patien t in lay simple terms, including the risk of bleeding and infection. Written and verbal informed con sent was obtained. Appropriate area for right thoracentesis was marked under ultrasound guidance with the patient in the upright position. Overlying skin was prepped and draped in the usual sterile fashion and with local anesthetic, a dermatotomy was made with an 11 blade scalpel. A 6 Qatari thoracentesis catheter was placed in the pleural space and fluid was removed. Catheter was then removed and a sterile dressing applied. There were no immediate complications. The patient tolerated the procedure well and the lef t the ultrasound suite in stable condition. Chest radiograph is to be obtained. FINDINGS: Adequate fluid for thoracentesis. CONCLUSION: 1. Uncomplicated thoracentesis. Electronically signed by: Héctor Estrada MD Board Certified Radiologist 05/10/2018 1:05 PM Jessica
--- NOTE | 2018-05-10 13:49 | P.PNNP ---
Subjective Interval history: Resting comfortably with no complaints. Thoracentesis today with removal of 2 liters. HD today. <Skylar Paulino - Last Filed: 05/10/18 13:47> Physical Exam Vital signs: Vital Signs 05/09/18 15:46 05/09/18 16:00 05/09/18 18:04 Temperature 97.3 F L 98.1 F Pulse Rate 86 104 H 100 H Respiratory Rate 18 20 16 Blood Pressure 86/57 L 115/57 L Pulse Oximetry 94 L 90 L 96 05/09/18 20:00 05/09/18 20:07 05/10/18 00:00 Temperature 97.7 F 97.8 F Pulse Rate 92 H 100 H 94 H Respiratory Rate 20 16 20 Blood Pressure 117/63 90/64 L Pulse Oximetry 98 99 05/10/18 00:38 05/10/18 03:22 05/10/18 04:00 Temperature 98.2 F Pulse Rate 64 85 95 H Respiratory Rate 15 19 20 Blood Pressure 97/61 L Pulse Oximetry 99 96 05/10/18 08:00 05/10/18 08:12 05/10/18 08:28 Temperature 98.3 F Pulse Rate 96 H 95 H Respiratory Rate 16 18 Blood Pressure 107/76 Pulse Oximetry 97 100 05/10/18 09:43 05/10/18 10:40 05/10/18 11:05 Temperature 97.4 F L 98.2 F Pulse Rate 94 H 101 H 95 H Respiratory Rate 24 24 18 Blood Pressure 90/67 L 79/60 L 96/67 L Pulse Oximetry 97 96 100 05/10/18 11:35 05/10/18 12:00 Temperature Pulse Rate 94 H 95 H Respiratory Rate 20 Blood Pressure 96/68 L Pulse Oximetry 99 Intake & Output 05/09/18 05/10/18 05/10/18 18:59 06:59 18:59 Intake Total 50 / 50 380 / 380 Balance 50 / 50 380 / 380 Weight 58.6 kg Intake: IV 50 / 50 100 / 100 Zosyn 2.25 GM Premix 2.25 gm In 50 / 50 100 / 100 50 ml @ 100 mls/hr IV.SIG Q8H BILL Rx#:[id number] Oral 280 / 280 Other: # Voids 1 # Bowel Movements 1 Narrative: GENERAL: alert and oriented. Cooperative SKIN: Warm and dry. CARDIOVASCULAR: Regular rate and rhythm without murmurs, gallops, or rubs. AVF positive thrill and bruit. RESPIRATORY: Breath sounds diminished in bilateral lung buitrago, R>L, but improved from yesterday. Minimal cough. No accessory muscle use. GASTROINTESTINAL: Abdomen soft, non-tender, nondistended. +BS MUSCULOSKELETAL: No cyanosis, or edema. <Skylar Paulino - Last Filed: 05/10/18 13:47> Vital signs: Vital Signs 05/10/18 00:00 05/10/18 00:38 05/10/18 03:22 Temperature 97.8 F Pulse Rate 94 H 64 85 Respiratory Rate 20 15 19 Blood Pressure 90/64 L Pulse Oximetry 99 99 05/10/18 04:00 05/10/18 08:00 05/10/18 08:12 Temperature 98.2 F 98.3 F Pulse Rate 95 H 96 H 95 H Respiratory Rate 20 16 18 Blood Pressure 97/61 L 107/76 Pulse Oximetry 96 97 05/10/18 08:28 05/10/18 09:43 05/10/18 10:40 Temperature 97.4 F L Pulse Rate 94 H 101 H Respiratory Rate 24 24 Blood Pressure 90/67 L 79/60 L Pulse Oximetry 100 97 96 05/10/18 11:05 05/10/18 11:35 05/10/18 12:00 Temperature 98.2 F Pulse Rate 95 H 94 H 95 H Respiratory Rate 18 20 Blood Pressure 96/67 L 96/68 L Pulse Oximetry 100 99 05/10/18 12:15 05/10/18 16:00 05/10/18 20:00 Temperature 97.1 F L 98.1 F Pulse Rate 92 H 92 H 94 H Respiratory Rate 17 18 Blood Pressure 98/58 L 101/59 L Pulse Oximetry 93 L 95 05/10/18 20:56 Temperature Pulse Rate 89 Respiratory Rate 15 Blood Pressure Pulse Oximetry 98 Intake & Output 05/10/18 05/10/18 05/11/18 06:59 18:59 06:59 Intake Total 380 / 380 Output Total 1999 Balance 380 / 380 -1999 Weight 58.6 kg Intake: IV 100 / 100 Zosyn 2.25 GM Premix 2.25 gm In 100 / 100 50 ml @ 100 mls/hr IV.SIG Q8H BILL Rx#:[id number] Oral 280 / 280 Output: Hemodialysis Amount 1999 Other: # Voids 1 # Bowel Movements 1 <Barber Peck - Last Filed: 05/10/18 21:42> Assessment and Plan - Assessment (1) ESRD (end stage renal disease) on dialysis Code(s): N18.6 - End stage renal disease; Z99.2 - Dependence on renal dialysis Status: Chronic Plan: Hemodialysis T/T/S Avoid IVF and gadolinium. HD yesterday with 3 liters of fluid removed. Hemodialysis today will remove fluid as tolerated thoracentesis today/ 2 liters. (2) PNA (pneumonia) Code(s): J18.9 - Pneumonia, unspecified organism Status: Acute Plan: On Zosyn chest Xray with effusion right lung base. (3) CHF (congestive heart failure) Code(s): I50.9 - Heart failure, unspecified Status: Chronic Qualifiers: Heart failure chronicity: acute on chronic Plan: shortness of breath has improved. HD tomorrow. s/p thoracentesis <Skylar Paulino - Last Filed: 05/10/18 13:47> - Assessment (1) ESRD (end stage renal disease) on dialysis Code(s): N18.6 - End stage renal disease; Z99.2 - Dependence on renal dialysis Status: Chronic Plan: Patient seen and examined, agree with above. HD done yesterday, has Thoracentesis done today. (2) PNA (pneumonia) Code(s): J18.9 - Pneumonia, unspecified organism Status: Acute (3) CHF (congestive heart failure) Code(s): I50.9 - Heart failure, unspecified Status: Chronic Qualifiers: Heart failure chronicity: acute on chronic <Barber Peck - Last Filed: 05/10/18 21:42>
--- NOTE | 2018-05-10 17:45 | MB ---
cc: Emilio Jhaveri MD DATE: 05/10/2018 REASON FOR CONSULTATION: Shortness of breath. HISTORY OF PRESENT ILLNESS: Mr. Bloom is a 62-year-old male with end-stage renal disease, on maintenance hemodialysis, admitted with shortness of breath and a right pleural effusion, underwent thoracentesis with decrease in the right pleural fluid. The patient's shortness of breath has improved. He is presently receiving dialysis. He denies history of fever, chills, cough, or expectoration or hemoptysis. PAST MEDICAL HISTORY: 1. End-stage renal disease, on maintenance hemodialysis. 2. Liver cirrhosis. 3. Coronary artery disease by previous myocardial infarction. 4. Diabetes mellitus. 5. Congestive heart failure. 6. Posttraumatic stress disorder. 7. History of cocaine abuse. FAMILY HISTORY: Positive for heart disease. Otherwise, unremarkable. MEDICATIONS: Kindly review MAR for same. REVIEW OF SYSTEMS: A 12-point review of systems as per HPI and past history, otherwise negative. PHYSICAL EXAMINATION: VITAL SIGNS: Temperature 98, pulse 90, respiratory 18, blood pressure 100/70. HEENT: Unremarkable. Eyes without icterus. NECK: Without adenopathy or thyroid enlargement. Oxygen saturation 99% on room air. NECK: No adenopathy or thyroid enlargement. CHEST: Decreased breath sounds at right base. CARDIAC: PMI not appreciated. S1, S2 audible. No murmur or rub. ABDOMEN: Lax. Bowel sounds audible. EXTREMITIES: No clubbing, cyanosis, or edema. LABORATORY DATA: Chest x-ray decreased right pleural effusion post-thoracentesis. White count 4000, hemoglobin 13, hematocrit 38, platelets 135,000. INR 1.2. ABG: pH 7.1, pCO2 of 33, pO2 of 107. IMPRESSION: 1. Shortness of breath due to fluid overload and right pleural effusion. 2. End-stage renal disease, on maintenance hemodialysis. 3. Diabetes mellitus. 4. Liver cirrhosis. 5. Congestive heart failure. 6. Hepatitis C. PLAN: The patient is doing well with removal of right pleural effusion. Some effusion remains. However hopefully, with appropriate therapy with dialysis to improve his fluid balance, the pleural effusion should decline as well as his shortness of breath. We will follow his course along with you. We will obtain baseline pulmonary function and depending on progress proceed further. MD TODD Baker/cole , 05:01 PM , 05:10 PM
[2018-05-11] MEDS: Piperacil/Tazo 2.25 GM Premix 2.25 GM/50 ML PIGGYBACK IV.SIG SCH ×2 (00:38→09:46)
[2018-05-11] MEDS: Lisinopril 10 MG Tablet PO SCH (09:45)
[2018-05-11] MEDS: Spironolactone 25 MG Tablet PO SCH (09:46)
[2018-05-11] MEDS: Vitamin B Complex/Vit C/Folic Tablet PO SCH (09:46)
[2018-05-11 09:56] LABS: Baso % (Auto) 0.8 % (0.0-2.0); Eos % (Auto) 0.9 % (0.0-4.0); Hematocrit 39.1 % (39.0-51.0); Hemoglobin 13.3 gm/dL (13.0-17.0); Lymph # (Auto) 0.8 th/mm3 (1.0-4.8); Lymph % (Auto) 16.3 % (9.0-44.0); Mean Corpuscular Hemoglobin 32.7 pg (27.0-34.0); Mean Corpuscular Volume 96.2 fL (80.0-100.0); Mean Platelet Volume 10.9 fL (7.0-11.0); Mono # (Auto) 0.8 th/mm3 (0.0-0.9); Mono % (Auto) 15.6 % (0.0-8.0); Neut # (Auto) 3.2 th/mm3 (1.8-7.7); Neut % (Auto) 66.4 % (16.0-70.0); Platelet Count 130 th/mm3 (150-450); Red Blood Count 4.06 mil/mm3 (4.50-5.90); Red Cell Distribution Width 18.3 % (11.6-17.2); White Blood Count 4.9 th/mm3 (4.0-11.0)
[2018-05-11] MEDS: Insulin NovoLOG Aspart Correctional Sugar Inj SQ SCH ×2 (09:56→13:09)
--- NOTE | 2018-05-11 09:58 | P.PNFP ---
Subjective Interval history: NAEON. Mr Bloom tolerated his thoracentesis yesterday with 2L of pleural fluid taken off and CXR following the procedure showing a smaller residual effusion remaining but no pneumothorax. He went to HD afterwards and another 2L of fluid taken off. This morning he states he is ready to go home. His indicates he is not quite back at baseline. He has not been eating well in the hospital; however, she states he eats well at home. She is concerned that he lays in bed most of the day at home. We discussed that Home PT has been arranged by CM to help him overcome the deconditioning at home. He slept well overnight. Denies CP , SOB, N/V/D, abdominal or leg pain. Results - Labs Result diagrams: 05/11/18 08:49 05/10/18 03:55 Abnormal lab results 05/10/18 05/10/18 05/11/18 Range/Units 03:55 09:45 07:42 POC Glucose 130 H (68-110) mg/dl B-Natriuretic Peptide 3948 H (0-100) pg/mL Pleural RBC 985 H (0-0) /mm3 Pleural Nuc Cells 87 H (0-10) /mm3 - Imaging Impressions Chest X-Ray 05/10/18 00:00 CONCLUSION: 1. No pneumothorax following recent right thoracentesis. Right pleural fluid remains but is overall decreased in volume. 2. Stable enlargement of the cardiac silhouette. Thoracentesis Ultrasound 05/10/18 00:00 CONCLUSION: 1. Uncomplicated thoracentesis. Physical Exam Vital signs: Vital Signs 05/10/18 09:43 05/10/18 10:40 05/10/18 11:05 Temperature 97.4 F L 98.2 F Pulse Rate 94 H 101 H 95 H Respiratory Rate 24 24 18 Blood Pressure 90/67 L 79/60 L 96/67 L Pulse Oximetry 97 96 100 05/10/18 11:35 05/10/18 12:00 05/10/18 12:15 Temperature 97.1 F L Pulse Rate 94 H 95 H 92 H Respiratory Rate 20 17 Blood Pressure 96/68 L 98/58 L Pulse Oximetry 99 93 L 05/10/18 16:00 05/10/18 20:00 05/10/18 20:56 Temperature 98.1 F Pulse Rate 92 H 94 H 89 Respiratory Rate 18 15 Blood Pressure 101/59 L Pulse Oximetry 95 98 05/11/18 00:05 05/11/18 01:46 05/11/18 05:40 Temperature 98.0 F 98.4 F Pulse Rate 99 H 104 H 97 H Respiratory Rate 18 18 Blood Pressure 104/56 L 100/58 L Pulse Oximetry 100 96 05/11/18 07:31 05/11/18 08:00 Temperature 97.9 F Pulse Rate 112 H 85 Respiratory Rate 12 18 Blood Pressure 100/52 L Pulse Oximetry 97 93 L Intake & Output 05/10/18 05/11/18 05/11/18 18:59 06:59 18:59 Intake Total 50 / 50 Output Total 1999 Balance -1999 50 / 50 Weight 53.6 kg Intake: IV 50 / 50 Zosyn 2.25 GM Premix 2.25 gm In 50 / 50 50 ml @ 100 mls/hr IV.SIG Q8H BILL Rx#:[id number] Output: Hemodialysis Amount 1999 Other: # Voids 1 Narrative: GENERAL: 62 YO Af-Am male looking older than stated age, gaunt, alert and oriented, lying in bed in NAD. SKIN: Warm and dry. No lesion or rash. CARDIOVASCULAR: Regular rate and rhythm without murmurs, gallops, or rubs. AVF on LUE positive thrill and bruit, wrapped in gauze bandage. RESPIRATORY: Breath sounds diminished in bilateral lung buitrago, but improved significantly. Minimal cough. No accessory muscle use. Normal WOB. GASTROINTESTINAL: Abdomen soft, non-tender, nondistended. +BS MUSCULOSKELETAL: No cyanosis, or edema. NEUROLOGICAL: AOx3, but a little sleepy. CN II-XII grossly intact, normal speech. Assessment and Plan - Assessment (1) Healthcare associated bacterial pneumonia Code(s): J15.9 - Unspecified bacterial pneumonia Status: Acute (2) Acute hyperkalemia Code(s): E87.5 - Hyperkalemia Status: Resolved (3) ESRD (end stage renal disease) on dialysis Code(s): N18.6 - End stage renal disease; Z99.2 - Dependence on renal dialysis Status: Chronic (4) CHF (congestive heart failure) Code(s): I50.9 - Heart failure, unspecified Status: Chronic (5) Elevated troponin Code(s): R74.8 - Abnormal levels of other serum enzymes Status: Chronic (6) Pleural effusion Code(s): J90 - Pleural effusion, not elsewhere classified Status: Acute (7) Diabetes Code(s): E11.9 - Type 2 diabetes mellitus without complications Status: Chronic (8) Hx of cocaine abuse Code(s): Z87.898 - Personal history of other specified conditions Status: Chronic - Assessment and Plan 62-year-old male with severe past medical history and comorbidities including COPD, CHF, with reduced ejection fraction of under 20%, end-stage kidney disease currently on dialysis, history of cocaine abuse, diabetes, high blood pressure, admitted for healthcare associated pneumonia with pleural effusions and likely CHF exacerbation as well as some noncompliance with HD as of late. Healthcare associated bacterial pneumonia Continue Zosyn 2.25mg IV q 8hr (renally dosed for hemodialysis patients, discussed with pharmacy) Albuterol treatments as needed every 4 hours for shortness of breath Robitussin as needed for cough R Pleural Effusion Likely chronic in nature but unresolved with HD Thoracentesis by IR withdrew 2L of pleural fluid 05/10 +Light's criteria for exudative effusion with RBCs 985 and pleural nucleated cells 87 (w/serum protein 7.8/pleural protein 4.2 and serum LDH 174/pleural LDH 104; no WBCs or organisms seen; pH 8.0) CT chest previously ordered, but will defer as outpt with f/u by Dr Jhaveri Pulmonology consulted--Dr Jhaveri Acute hyperkalemia- resolved Likely related to end-stage renal disease Morning labs pending Congestive heart failure Hemodialysis x3 this admission. Planning for HD today Pt down approx 20 lbs since admission BNP pending End-stage kidney disease on dialysis Nephrology following, HD TTS Avoid Nephrotoxic medications and gadolinium contrast Dialysis yesterday with 2L off Elevated troponin Patient denies chest pain Likely baseline for patient FEN: - PO hydration - Monitor replace electrolytes as needed - Cardiac diet PPX: - Bilateral lower extremity SCDs - Zofran prn for nausea - Protonix 40mgs daily for GI ppx Disposition: Home PT arranged for pt He will likely be discharged today Pt guillermo Mclaughlin, and SW [facility] Hospital Course: 62-year-old male with severe past medical history and comorbidities including COPD, CHF, with reduced ejection fraction of under 20%, end-stage kidney disease currently on dialysis, history of cocaine abuse, diabetes, high blood pressure, is venous admitted for healthcare associated pneumonia with pleural effusions and likely CHF exacerbation. Chronic cough for about 2 months, patient currently receiving dialysis. Patient received azithromycin 500 mg IV once, cefepime 2000 mg IV once, vancomycin 1000 mg IV once, several breathing treatments, methylprednisolone 125 mg IV once WBC 4 .8 ABG with pH of 7.41, PCO2 of 33, HCO3 of 21 Vital signs significant for increased respiratory rate of 25 and tachycardic up to 135 bpm Patient wears 3 L of oxygen at home. Pt received dialysis on day of admission to remove 3L of fluids and again day following admission as is his current schedule. Pt completed three rounds of dialysis and has improved his SOB. He is debilitated and needs continue work with PT. 05/10: Pt received a thoracentesis to drain R pleural effusion with improved CXR. He will go to dialysis /Mon. Home PT has already been set up for him. (4) CHF (congestive heart failure) Qualifiers: Heart failure chronicity: acute on chronic (7) Diabetes Qualifiers: Diabetes mellitus complication status: with kidney complications Diabetes mellitus complication detail: with chronic kidney disease Chronic kidney disease stage: on chronic dialysis
[2018-05-11 10:38] LABS: Albumin 2.9 g/dL (3.4-5.0); Anion Gap 10 meq/L (5-15); Aspartate Aminotransferase 24 U/L (15-37); Blood Urea Nitrogen 33 mg/dL (7-18); Calcium 8.3 mg/dL (8.5-10.1); Carbon Dioxide 31.5 meq/L (21.0-32.0); Chloride 99 meq/L (98-107); Glomerular Filtration Rate 11 mL/min (>89); Glucose,Random 88 mg/dL (74-106); Potassium 4.2 meq/L (3.5-5.1); Sodium 140 meq/L (136-145)
[2018-05-11 10:43] LABS: Alanine Aminotransferase 13 U/L (12-78); Alkaline Phosphatase 63 U/L (45-117); Total Protein 7.4 g/dL (6.4-8.2)
--- NOTE | 2018-05-11 12:26 | P.PNNP ---
Subjective Interval history: Resting comfortably. Denies any shortness of breath, chest pain, nausea, or vomiting. HD yesterday tolerated well. <Skylar Paulino - Last Filed: 05/11/18 12:22> Physical Exam Vital signs: Vital Signs 05/10/18 16:00 05/10/18 20:00 05/10/18 20:56 Temperature 98.1 F Pulse Rate 92 H 94 H 89 Respiratory Rate 18 15 Blood Pressure 101/59 L Pulse Oximetry 95 98 05/11/18 00:05 05/11/18 01:46 05/11/18 05:40 Temperature 98.0 F 98.4 F Pulse Rate 99 H 104 H 97 H Respiratory Rate 18 18 Blood Pressure 104/56 L 100/58 L Pulse Oximetry 100 96 05/11/18 07:31 05/11/18 08:00 05/11/18 09:45 Temperature 97.9 F Pulse Rate 112 H 85 Respiratory Rate 12 18 Blood Pressure 100/52 L Pulse Oximetry 97 93 L 95 05/11/18 11:31 Temperature Pulse Rate 46 L Respiratory Rate 46 H Blood Pressure Pulse Oximetry Intake & Output 05/10/18 05/11/18 05/11/18 18:59 06:59 18:59 Intake Total 50 / 50 50 / 50 Output Total 1999 Balance -1999 50 / 50 50 / 50 Weight 53.6 kg Intake: IV 50 / 50 50 / 50 Zosyn 2.25 GM Premix 2.25 gm In 50 / 50 50 / 50 50 ml @ 100 mls/hr IV.SIG Q8H BILL Rx#:[id number] Output: Hemodialysis Amount 1999 Other: # Voids 1 Narrative: GENERAL: Alert and oriented. NAD SKIN: Warm and dry. No lesion or rash. CARDIOVASCULAR: Regular rate and rhythm without murmurs, gallops, or rubs. AVF on LUE positive thrill and bruit. RESPIRATORY: Breath sounds diminished in bilateral lung buitrago, but improved significantly. Minimal cough. No accessory muscle use. GASTROINTESTINAL: Abdomen soft, non-tender, nondistended. +BS MUSCULOSKELETAL: No cyanosis, or edema. NEUROLOGICAL: AOx3, but a little sleepy. CN II-XII grossly intact, normal speech. <Skylar Paulino - Last Filed: 05/11/18 12:22> Vital signs: Vital Signs 05/10/18 16:00 05/10/18 20:00 05/10/18 20:56 Temperature 98.1 F Pulse Rate 92 H 94 H 89 Respiratory Rate 18 15 Blood Pressure 101/59 L Pulse Oximetry 95 98 05/11/18 00:05 05/11/18 01:46 05/11/18 05:40 Temperature 98.0 F 98.4 F Pulse Rate 99 H 104 H 97 H Respiratory Rate 18 18 Blood Pressure 104/56 L 100/58 L Pulse Oximetry 100 96 05/11/18 07:31 05/11/18 08:00 05/11/18 09:45 Temperature 97.9 F Pulse Rate 112 H 85 Respiratory Rate 12 18 Blood Pressure 100/52 L Pulse Oximetry 97 93 L 95 05/11/18 11:31 05/11/18 12:30 Temperature 97.7 F Pulse Rate 46 L 94 H Respiratory Rate 46 H 20 Blood Pressure 92/54 L Pulse Oximetry 100 Intake & Output 05/10/18 05/11/18 05/11/18 18:59 06:59 18:59 Intake Total 50 / 50 50 / 50 Output Total 1999 Balance -1999 50 / 50 50 / 50 Weight 53.6 kg Intake: IV 50 / 50 50 / 50 Zosyn 2.25 GM Premix 2.25 gm In 50 / 50 50 / 50 50 ml @ 100 mls/hr IV.SIG Q8H BILL Rx#:[id number] Output: Hemodialysis Amount 1999 Other: # Voids 1 <Valentín Peck Q - Last Filed: 05/11/18 14:58> Assessment and Plan - Assessment (1) ESRD (end stage renal disease) on dialysis Code(s): N18.6 - End stage renal disease; Z99.2 - Dependence on renal dialysis Status: Chronic Plan: Hemodialysis T/T/S Avoid IVF and gadolinium. HD yesterday with 2 liters of fluid removed. Plans for discharge today, HD at [facility] tomorrow. (2) PNA (pneumonia) Code(s): J18.9 - Pneumonia, unspecified organism Status: Acute Plan: On Zosyn chest Xray with effusion right lung base. (3) CHF (congestive heart failure) Code(s): I50.9 - Heart failure, unspecified Status: Chronic Qualifiers: Heart failure chronicity: acute on chronic Plan: shortness of breath has improved. HD tomorrow. s/p thoracentesis <Skylar Paulino - Last Filed: 05/11/18 12:22> - Assessment (1) ESRD (end stage renal disease) on dialysis Code(s): N18.6 - End stage renal disease; Z99.2 - Dependence on renal dialysis Status: Chronic Plan: Patient has HD and Thoracentesis yesterday. For discharge, to continue HD TTS. (2) PNA (pneumonia) Code(s): J18.9 - Pneumonia, unspecified organism Status: Acute (3) CHF (congestive heart failure) Code(s): I50.9 - Heart failure, unspecified Status: Chronic Qualifiers: Heart failure chronicity: acute on chronic <Barber Peck - Last Filed: 05/11/18 14:58>
[2018-05-11 12:31] VITALS: BP 92/54; PULSE 94; RESP 20; TEMP 97.7; O2SAT 100
--- NOTE | 2018-05-15 11:20 | P.DS ---
Date of admission: 05/07/18 15:50 Primary care physician: [facility] Brief History from admission: 62-year-old male with past medical history of end-stage renal disease, hypertension, hepatitis C, diabetes, cirrhosis, CHF, presenting to the ED after being evaluated at the [facility] for coughing and shortness of breath. Patient is unable to give me a good history, he is tachypneic, he endorses shortness of breath, cough, but he denies having any chest pain. He is currently on dialysis. He states this cough has been no known for several months and it just got worse over the last few days. Patient lives with , retired from the [employer], smokes 1 cigarette a day, denies drinking HPI is limited but patient dyspnea and inability to cooperate with history of this point DS: Diagnosis - Discharge Diagnosis (1) Healthcare associated bacterial pneumonia Status: Acute (2) Acute hyperkalemia Status: Resolved (3) ESRD (end stage renal disease) on dialysis Status: Chronic (4) CHF (congestive heart failure) Status: Chronic (5) Elevated troponin Status: Chronic (6) Pleural effusion Status: Acute (7) Diabetes Status: Chronic (8) Hx of cocaine abuse Status: Chronic DS: Medications - Discharge Medications Prescriptions: azithromycin 500 mg PO DAILY #3 tab DS: Summary Hospital Course: 62-year-old male with severe past medical history and comorbidities including COPD, CHF, with reduced ejection fraction of under 20%, end-stage kidney disease currently on dialysis, history of cocaine abuse, diabetes, high blood pressure, was admitted for healthcare associated pneumonia with pleural effusions and likely CHF exacerbation. Chronic cough for about 2 months, patient currently receiving dialysis. Patient received azithromycin 500 mg IV once, cefepime 2000 mg IV once, vancomycin 1000 mg IV once, several breathing treatments, methylprednisolone 125 mg IV once. On admission, WBC 4 .8 ABG with pH of 7.41, PCO2 of 33, HCO3 of 21 Vital signs significant for increased respiratory rate of 25 and tachycardic up to 135 bpm Patient wears 3 L of oxygen at home. Pt received dialysis on day of admission to remove 3L of fluids and again day following admission as is his current schedule. Pt completed three rounds of dialysis and has improved his SOB. He is debilitated and needs continue work with PT. 05/10: Pt had thoracentesis to drain R pleural effusion with improved CXR, pulmonology was consulted and recommended outpatient pulmonary function test. He will go to dialysis Mon//Mon. Home PT has already been set up for him. - Time Spent with Patient Total time spent providing and/or coordinating discharge services: Greater than 30 minutes - Quality: VTE Deep Vein Thrombosis/Pulmonary Embolism Present on Admission: No Exam Narrative: GENERAL: alert and oriented. Cooperative, talking in short sentences, but in NAD. SKIN: Warm and dry. CARDIOVASCULAR: Regular rate and rhythm without murmurs, gallops, or rubs. Improved tachycardia RESPIRATORY: Breath sounds diminished in bilateral lung buitrago, R>L, but improved from yesterday. Minimal cough. No accessory muscle use. GASTROINTESTINAL: Abdomen soft, non-tender, nondistended. +BS MUSCULOSKELETAL: No cyanosis, or edema. Results Procedures completed during hospitalization: Thoracentesis - Impressions ITS Impressions Chest X-Ray 05/10/18 00:00 CONCLUSION: 1. No pneumothorax following recent right thoracentesis. Right pleural fluid remains but is overall decreased in volume. 2. Stable enlargement of the cardiac silhouette. Thoracentesis Ultrasound 05/10/18 00:00 CONCLUSION: 1. Uncomplicated thoracentesis. Discharge Plan - Discharge Disposition Patient Disposition: W/Home Health Service - Discharge Condition Condition: Stable - Discharge Order Discharge Orders: Discharge Order (Routine); Ordered 05/11/18 Ordered By: Sree Peoples III R2 - Discharge Details Anticipated Discharge Date: 05/11/18 - Physicians Team Primary Care Provider: [facility]ician 's Attending Provider: Quang Mclaughlin Other Providers: Barber Peck MD ; Emilio Jhaveri MD
== END 2018-05-11 14:02 | disposition home health service (06) ==
LOC: NEPE 13:09 → NEDA 15:50 → N05 21:03
PROVIDERS: ADMIT Family Medicine; ATTEND Family Medicine

== ENCOUNTER 2018-07-13 16:54 | Inpatient (IN) ==
[2018-07-13] MEDS ORDERED: Aluminum/Magnesium/Simethacone Susp 30 ML UDC PO PRN (21:13)
[2018-07-13] MEDS ORDERED: Bisacodyl 10 MG Supp RECTAL PRN (21:13)
[2018-07-14] MEDS: Senna/Docusate Sodium 8.6/50 MG Tablet PO SCH ×2 (08:10→22:42)
[2018-07-14] MEDS: Ferrous Sulfate 325 MG Tablet PO SCH ×3 (08:10→17:45)
[2018-07-14] MEDS: Tiotropium Bromide 18 MCG/ACT Inhaler INH SCH (08:10)
[2018-07-14] MEDS: Azithromycin 250 MG Tablet PO SCH (08:10)
[2018-07-14] MEDS: Lisinopril 5 MG Tablet PO SCH (08:10)
[2018-07-14 09:03] LABS: Calcium 6.6 mg/dL (8.5-10.1); Carbon Dioxide 28.7 meq/L (21.0-32.0); Chol/HDL Ratio 3.35 Ratio; HDL Cholesterol 45.9 mg/dL (40.0-60.0); Potassium 5.3 meq/L (3.5-5.1)
[2018-07-14 09:30] LABS: Albumin 2.8 g/dL (3.4-5.0); Calcium-Albumin Corrected 7.6 mg/dL (8.5-10.1)
[2018-07-14 13:23] LABS: Hemoglobin A1c 5.7 % (4.3-6.0)
[2018-07-14] MEDS ORDERED: Gelatin 12 MM/7 MM Topical Foam TOPICAL PRN (15:26)
[2018-07-14] MEDS ORDERED: Sod Chloride 0.9% Inj 1,000 ML OTHER PRN ×2 (15:26)
[2018-07-14] MEDS ORDERED: Albumin Human 25% Inj 100 ML IV.SIG PRN (15:26)
[2018-07-14] MEDS ORDERED: Heparin 10,000 UNITS/10 ML Vial (for IV use) OTHER PRN ×2 (15:26)
[2018-07-14] MEDS ORDERED: Sod Chloride 0.9% Inj 1,000 ML IV.CONT PRN (15:26)
[2018-07-14] MEDS ORDERED: Acetaminophen 325 MG Tablet PO PRN (15:26)
--- NOTE | 2018-07-14 15:53 | P.CONNP ---
History of Present Illness Service: Nephrology Consult date: 07/14/18 Requesting Physician: aBrber Peck Reason for Consult: End-stage renal disease management Primary Care Provider: UNKNOWN History of Present Illness: Patient is a 62-year-old male with history of end-stage renal disease, hypertension, hepatitis C, history of illicit drug use and psychosis, patient has been admitted to outpatient psychiatric unit as he has agitation, noncompliance with dialysis, disruptive behavior, patient is seen during hemodialysis. Review of Systems unobtainable due to mental status PMFSH - History History 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, Medical Record - Medical History Medical History: Medical History (Last Reviewed 07/14/18 @ 15:50 by Willy Arellano MD) Fistula (Acute) Anemia Arteriovenous fistula for hemodialysis in place, primary CHF (congestive heart failure) Cirrhosis of liver Cocaine abuse Diabetes ESRD on dialysis HBP (high blood pressure) Heart attack Hepatitis C Noncompliance PTSD (post-traumatic stress disorder) Tricuspid valve regurgitation - Surgical History Surgical History: Surgical History (Last Reviewed 07/14/18 @ 15:50 by Willy Arellano MD) Scrotal disorder (Acute) - Family History Family History: Family History (Last Reviewed 07/14/18 @ 15:50 by Willy Arellano MD) Mother Heart attack Renal disease Father Renal disease - Social History I have reviewed the patient's Social History: Yes - Tobacco History Second Hand Smoke Exposure: Yes Tobacco Use In Past 30 Days: Yes Smoking Status: Current every day smoker Tobacco Type: Cigarettes Cigarettes Per Day: 1 (prior admits = few cigarettes per day) - Alcohol History How Often Do You Have a Drink Containing Alcohol: Monthly or less - Substance Use History Substance History: Unable to Obtain - Travel History Recent Travel in the [facility] Within the Last 8 Weeks: No Recent Travel Out of the Country Within the Last 8 Weeks: No - Immunization History Tetanus Immunization: >5 Years Tetanus Immunization Year if Known: 1994 Hx Influenza Vaccine This Season: No Medications and Allergies Active Medications: Active Medications Acetaminophen (Tylenol) 650 mg PO UNSCH PRN PRN Reason: SEE LABEL COMMENTS Al Hydrox/Mg Hydrox/Simethicone (Mag-Al Plus Susp Liq) 30 ml PO Q6H PRN PRN Reason: DYSPEPSIA Al Hydroxide/Mg Hydroxide (Milk Of Magnesia Liq) 30 ml PO Q12H PRN PRN Reason: Mild Constipation Albuterol (Ventolin Hfa Inh) 2 puff INH QID [facility] Last Admin: 07/14/18 13:05 Dose: 2 puff Aspirin (Ecotrin) 81 mg PO DAILY [facility] Last Admin: 07/14/18 08:10 Dose: 81 mg Azithromycin (Zithromax) 500 mg PO DAILY [facility] Last Admin: 07/14/18 08:10 Dose: 500 mg Bisacodyl (Dulcolax Supp) 10 mg RECTAL DAILY PRN PRN Reason: SEVERE CONSITIPATION Cinacalcet (Sensipar) 30 mg PO BID [facility] Last Admin: 07/14/18 08:10 Dose: 30 mg Clonidine HCl (Catapres) 0.1 mg PO UNSCH PRN PRN Reason: SEE LABEL COMMENTS Diphenhydramine HCl (Benadryl) 25 mg PO UNSCH PRN PRN Reason: SEE LABEL COMMENTS Ferrous Sulfate (Ferosul) 325 mg PO TID [facility] Last Admin: 07/14/18 13:05 Dose: 325 mg Gelatin (Gelfoam 12 Mm/7 Mm Topical) 1 foam TOPICAL PRN PRN PRN Reason: help stop bleeding from site Gentamicin Sulfate (Gentamicin Inj) 20 mg OTHER WITH DIALYSIS PRN PRN Reason: Dwell Gentamycin Lock Heparin Sodium (Porcine) (Heparin Inj) 8,000 units OTHER WITH DIALYSIS PRN PRN Reason: for machine prime Heparin Sodium (Porcine) (Heparin Inj) 1,000 units OTHER WITH DIALYSIS PRN PRN Reason: Dwell Heparin to Fill Catheter Hydroxyzine HCl (Atarax) 25 mg PO QID PRN PRN Reason: ITCHING Albumin Human (Flexbumin 25% Inj) 100 mls @ 60 mls/hr IV.SIG WITH DIALYSIS PRN PRN Reason: hypotension / volume replace Sodium Chloride (Ns Inj) 1,000 mls @ 0 mls/hr OTHER .Q0M PRN PRN Reason: for prime and rinse back Sodium Chloride (Ns Inj) 1,000 mls @ 200 mls/hr OTHER .Q5H PRN PRN Reason: for dialyzer flush PRN Sodium Chloride (Ns Inj) 1,000 mls @ 0 mls/hr IV.CONT .Q0M PRN PRN Reason: hypotension / volume replace Lactulose (Lactulose Liq) 30 ml PO DAILY PRN PRN Reason: SEVERE CONSITIPATION Lisinopril (Prinivil) 5 mg PO DAILY [facility] Last Admin: 07/14/18 08:10 Dose: 5 mg Mannitol (Mannitol Inj) 12.5 gm IV.PUSH UNSCH PRN PRN Reason: hypotension / volume replace Nitroglycerin (Nitrostat Sl) 0.4 mg SL Q5M PRN PRN Reason: CHEST PAIN Ondansetron HCl (Zofran Inj) 4 mg IV.PUSH UNSCH PRN PRN Reason: NAUSEA OR VOMITING Senna/Docusate Sodium (Ayla-Colace) 1 tab PO BID [facility] Last Admin: 07/14/18 08:10 Dose: 1 tab Sennosides (Senokot) 17.2 mg PO Q12H PRN PRN Reason: Moderate Constipation Sodium Chloride (Ns Flush) 5 ml IV.FLUSH PRN PRN PRN Reason: flush each lumen during HD Tiotropium [place] (Spiriva 18 Mcg Inh) 18 mcg INH DAILY [facility] Last Admin: 07/14/18 08:10 Dose: 18 mcg Allergies Allergy/AdvReac Type Severity Reaction Status Date / Time ibuprofen Allergy Severe Swelling Verified 05/07/18 13:27 Influenza Virus Vaccines Allergy Severe Swelling Verified 05/07/18 13:27 Sulfa (Sulfonamide Allergy Severe Rash Verified 05/07/18 13:27 Antibiotics) wool Allergy Hives Verified 05/07/18 13:27 Home Medications Medication Instructions Recorded Confirmed Type aspirin [Aspirin Low Dose] 81 mg PO DAILY 11/28/17 05/07/18 History cinacalcet [Sensipar] 30 mg PO BID 11/28/17 01/19/18 History lisinopril 5 mg PO DAILY 11/28/17 05/07/18 History metoprolol succinate 100 mg PO DAILY 11/28/17 05/07/18 History spironolactone 25 mg PO DAILY 11/28/17 05/07/18 History vit B comp no.[id number]-biotin 1 tab PO DAILY 11/28/17 05/07/18 History [Nephro-Rickie Rx] ferrous sulfate 324 mg PO TID 05/07/18 05/07/18 History hydroxyzine HCl 25 mg PO TID-QID PRN 05/07/18 05/07/18 History ipratropium-albuterol 1 puff INHALATION Q6H 05/07/18 05/07/18 History nitroglycerin 0.4 mg SUBLINGUAL Q5-15M PRN 05/07/18 05/07/18 History paroxetine HCl 40 mg PO DAILY 05/07/18 05/07/18 History temazepam 7.5 mg PO HS 05/07/18 05/07/18 History Exam Vital signs: Vital Signs 07/13/18 20:15 07/14/18 06:00 Temperature 98 F 98 F Pulse Rate 101 H 104 H Respiratory Rate 16 17 Blood Pressure 123/66 104/63 Pulse Oximetry 98 94 L Intake & Output 07/13/18 07/14/18 07/14/18 18:59 06:59 18:59 Intake Total 1440 / 1440 Balance 1440 / 1440 Weight 56.3 kg Intake: Oral 1440 / 1440 Other: Weight On Admission 56.3 kg Narrative: GENERAL: Well-nourished, well-developed patient. SKIN: Warm and dry. HEAD: Normocephalic. EYES: No scleral icterus. No injection or drainage. NECK: Supple, trachea midline. No JVD or lymphadenopathy. CARDIOVASCULAR: Regular rate and rhythm without murmurs, gallops, or rubs. RESPIRATORY: Breath sounds equal bilaterally. No accessory muscle use. GASTROINTESTINAL: Abdomen soft, non-tender, nondistended. EXTREMITIES: Mild edema AV fistula present NEUROLOGICAL: Patient is drowsy, and respiratory Results - Lab Results 07/14/18 07:49 Most recent lab results Calcium 6.6 mg/dL (8.5-10.1) L* 07/14/18 07:49 Assessment and Plan - Assessment (1) ESRD (end stage renal disease) on dialysis Code(s): N18.6 - End stage renal disease; Z99.2 - Dependence on renal dialysis Status: Chronic Plan: Patient is seen during hemodialysis ultrafiltration of 3 L on 2K bath He is under sedation, calm today Discussed with nursing staff, he has disruptive behavior and it is difficult to do dialysis on him He is also noncompliant as patient Patient calcium is low, Tums 500 mg twice a day ordered, he takes Sensipar 30 mg twice a day Goes on Monday, and Monday schedule He follows with Dr. Peck (2) CHF (congestive heart failure) Code(s): I50.9 - Heart failure, unspecified Status: Chronic Plan: Hemodialysis planned (3) Hepatitis C Code(s): B19.20 - Unspecified viral hepatitis C without hepatic coma Status: Acute Plan: Patient has cirrhosis of the liver (2) CHF (congestive heart failure) Qualifiers: Heart failure chronicity: chronic
[2018-07-14 19:33] LABS: Hepatitis A IgM Antibody Nonreactive (Nonreactive); Hepatitits B Surface Antigen Nonreactive (Nonreactive)
--- NOTE | 2018-07-14 21:05 | P.HPPSY ---
Provisional Diagnosis Admission Date: July 13, 2018 20:21 [place] I.: psychosis PTSD [place] III.: end stage renal disease, cirrhosis, CHF, Competence Certification of Person's Competence To Provide Express and Informed Consent I have personally examined Tenzin Bloom, a person being served at [facility] on, July 14, 2018 2104. Express and informed consent means consent voluntarily given in writing, by a competent person, after sufficient explanation and disclosure of the subject matter involved to enable the person to make a knowing and willful decision without any element of force, fraud, deceit, duress, or other form of constraint or coercion. This person is 18 years of age or older, is not now known to be incompetent to consent to treatment with a guardian advocate, and does not have a health care surrogate or proxy currently making medical treatment decisions. I have found this person to be one of the following: [] Competent to provide express and informed consent, as defined above, for voluntary admission to this facility and is competent to provide express and informed consent for treatment. He/she has the consistent capacity to make well reasoned, willful, and knowing decisions concerning his or her medical or mental health treatment. The person fully and consistently understands the purpose of the admission for examination/placement and is fully capable of personally exercising all rights assured [place] [X] Incompetent to provide express and informed consent to voluntary admission, and this is incompetent to provide express and informed consent to treatment. The person must be transferred to involuntary status and a petition for a guardian advocate filed with the Circuit Court. [] Refusing to provide express and informed consent to voluntary admission but is competent to provide express and informed consent for treatment. The person must be discharged or transferred to involuntary status. Form shall be completed within 24 hours of a person's arrival at the receiving facility and filed in the clinical record of each person: 1. Admitted on a voluntary basis 2. Permitted to provide express and informed consent to his/her own treatment 3. Allowed to transfer from involuntary to voluntary status 4. Prior to permitting a person to consent to his or her own treatment after having been previously found incompetent to consent to treatment. History of Present Illness Capacity: Lacks capacity Chief Complaint: admitted to [facility] psych due to aggression on medical floor History of Present Illness: Pt is a 62 YOAAM with a psychiatric hx of PTSD and past cocaine abuse and medical hx of ESRD, CHF and cirrhosis. He was transferred to med psych unit from medical floor after aggression and agitation became too difficult to manage. Pt became confused and psychotic after missing dialysis appointment and has continued to have intermittent bouts of aggression in confusion. Pt was seen in dialysis unit. He was polite but did not want to engage in interview with MD. He appears confused and somewhat paranoid towards MD. Dayshift nurses reported that pt had not been aggressive, but as evening progressed he became confused and agitated per evening nurses. - Inpatient Certification I certify that the inpatient services were ordered in accordance with Medicare regulations governing the order. This includes certification that hospital inpatient services are reasonable and necessary and in the case of services not specified as inpatient-only under 42 CFR 419.22(n), that they are appropriately provided as inpatient services in accordance to with the 2-midnight benchmark under 43 CFR 412.3(e) I certify that inpatient psychiatric hospital services are medically necessary. Evaluation and treatment and/or diagnostic testing are expected to improve the patient's condition. The patient needs on a daily basis, active treatment furnished directly by or requiring the supervision of inpatient psychiatric facility personnel. Estimated Total Length of Stay (Days): 7 Plans for Post Hospital Care: Home Review of Systems Psychiatric: Reports behavioral changes, Reports confusion PMFSH - History History 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, Medical Record - Medical History Medical History: Medical History (Last Reviewed 07/14/18 @ 21:23 by Angela Brock MD) Fistula (Acute) Anemia Arteriovenous fistula for hemodialysis in place, primary CHF (congestive heart failure) Cirrhosis of liver Cocaine abuse Diabetes ESRD on dialysis HBP (high blood pressure) Heart attack Hepatitis C Noncompliance PTSD (post-traumatic stress disorder) Tricuspid valve regurgitation - Surgical History Surgical History: Surgical History (Last Reviewed 07/14/18 @ 21:23 by Angela Brock MD) Scrotal disorder (Acute) - Family History Family History: Family History (Last Reviewed 07/14/18 @ 21:23 by Angela Brock MD) Mother Heart attack Renal disease Father Renal disease - Social History I have reviewed the patient's Social History: Yes - Tobacco History Second Hand Smoke Exposure: Yes Tobacco Use In Past 30 Days: Yes Smoking Status: Current every day smoker Tobacco Type: Cigarettes Cigarettes Per Day: 1 (prior admits = few cigarettes per day) - Alcohol History How Often Do You Have a Drink Containing Alcohol: Monthly or less - Substance Use History Substance History: Unable to Obtain - Travel History Recent Travel in the [place] Within the Last 8 Weeks: No Recent Travel Out of the Country Within the Last 8 Weeks: No - Immunization History Tetanus Immunization: >5 Years Tetanus Immunization Year if Known: 1994 Hx Influenza Vaccine This Season: No Quality Measures - Psychiatric History Psychological trauma history: unknown Violence risk to others in the last 6 months: aggressive on unit Violence risk to self in the last 6 months: none - Substance Abuse History Drug or alcohol use in the past 12 months: hx of cocaine abuse - Patient Strengths Patient's strengths (minimum of 2): access to healthcare,supportive family Medications and Allergies Active Medications: Active Medications Acetaminophen (Tylenol) 650 mg PO UNSCH PRN PRN Reason: SEE LABEL COMMENTS Al Hydrox/Mg Hydrox/Simethicone (Mag-Al Plus Susp Liq) 30 ml PO Q6H PRN PRN Reason: DYSPEPSIA Al Hydroxide/Mg Hydroxide (Milk Of Magnesia Liq) 30 ml PO Q12H PRN PRN Reason: Mild Constipation Albuterol (Ventolin Hfa Inh) 2 puff INH QID [facility] Last Admin: 07/14/18 17:45 Dose: Not Given Aspirin (Ecotrin) 81 mg PO DAILY [facility] Last Admin: 07/14/18 08:10 Dose: 81 mg Azithromycin (Zithromax) 500 mg PO DAILY [facility] Last Admin: 07/14/18 08:10 Dose: 500 mg Bisacodyl (Dulcolax Supp) 10 mg RECTAL DAILY PRN PRN Reason: SEVERE CONSITIPATION Calcium Carbonate (Tums Chew) 500 mg CHEW BID [facility] Cinacalcet (Sensipar) 30 mg PO BID [facility] Last Admin: 07/14/18 08:10 Dose: 30 mg Clonidine HCl (Catapres) 0.1 mg PO UNSCH PRN PRN Reason: SEE LABEL COMMENTS Diphenhydramine HCl (Benadryl) 25 mg PO UNSCH PRN PRN Reason: SEE LABEL COMMENTS Ferrous Sulfate (Ferosul) 325 mg PO TID [facility] Last Admin: 07/14/18 17:45 Dose: Not Given Gelatin (Gelfoam 12 Mm/7 Mm Topical) 1 foam TOPICAL PRN PRN PRN Reason: help stop bleeding from site Gentamicin Sulfate (Gentamicin Inj) 20 mg OTHER WITH DIALYSIS PRN PRN Reason: Dwell Gentamycin Lock Heparin Sodium (Porcine) (Heparin Inj) 8,000 units OTHER WITH DIALYSIS PRN PRN Reason: for machine prime Heparin Sodium (Porcine) (Heparin Inj) 1,000 units OTHER WITH DIALYSIS PRN PRN Reason: Dwell Heparin to Fill Catheter Hydroxyzine HCl (Atarax) 25 mg PO QID PRN PRN Reason: ITCHING Albumin Human (Flexbumin 25% Inj) 100 mls @ 60 mls/hr IV.SIG WITH DIALYSIS PRN PRN Reason: hypotension / volume replace Sodium Chloride (Ns Inj) 1,000 mls @ 0 mls/hr OTHER .Q0M PRN PRN Reason: for prime and rinse back Sodium Chloride (Ns Inj) 1,000 mls @ 200 mls/hr OTHER .Q5H PRN PRN Reason: for dialyzer flush PRN Sodium Chloride (Ns Inj) 1,000 mls @ 0 mls/hr IV.CONT .Q0M PRN PRN Reason: hypotension / volume replace Lactulose (Lactulose Liq) 30 ml PO DAILY PRN PRN Reason: SEVERE CONSITIPATION Lisinopril (Prinivil) 5 mg PO DAILY [facility] Last Admin: 07/14/18 08:10 Dose: 5 mg Mannitol (Mannitol Inj) 12.5 gm IV.PUSH UNSCH PRN PRN Reason: hypotension / volume replace Nitroglycerin (Nitrostat Sl) 0.4 mg SL Q5M PRN PRN Reason: CHEST PAIN Ondansetron HCl (Zofran Inj) 4 mg IV.PUSH UNSCH PRN PRN Reason: NAUSEA OR VOMITING Senna/Docusate Sodium (Ayla-Colace) 1 tab PO BID [facility] Last Admin: 07/14/18 08:10 Dose: 1 tab Sennosides (Senokot) 17.2 mg PO Q12H PRN PRN Reason: Moderate Constipation Sodium Chloride (Ns Flush) 5 ml IV.FLUSH PRN PRN PRN Reason: flush each lumen during HD Tiotropium Salters (Spiriva 18 Mcg Inh) 18 mcg INH DAILY [facility] Last Admin: 07/14/18 08:10 Dose: 18 mcg Allergies Allergy/AdvReac Type Severity Reaction Status Date / Time ibuprofen Allergy Severe Swelling Verified 05/07/18 13:27 Influenza Virus Vaccines Allergy Severe Swelling Verified 05/07/18 13:27 Sulfa (Sulfonamide Allergy Severe Rash Verified 05/07/18 13:27 Antibiotics) wool Allergy Hives Verified 05/07/18 13:27 Home Medications Medication Instructions Recorded Confirmed Type aspirin [Aspirin Low Dose] 81 mg PO DAILY 11/28/17 05/07/18 History cinacalcet [Sensipar] 30 mg PO BID 11/28/17 01/19/18 History lisinopril 5 mg PO DAILY 11/28/17 05/07/18 History metoprolol succinate 100 mg PO DAILY 11/28/17 05/07/18 History spironolactone 25 mg PO DAILY 11/28/17 05/07/18 History vit B comp no.[id number]-biotin 1 tab PO DAILY 11/28/17 05/07/18 History [Nephro-Rickie Rx] ferrous sulfate 324 mg PO TID 05/07/18 05/07/18 History hydroxyzine HCl 25 mg PO TID-QID PRN 05/07/18 05/07/18 History ipratropium-albuterol 1 puff INHALATION Q6H 05/07/18 05/07/18 History nitroglycerin 0.4 mg SUBLINGUAL Q5-15M PRN 05/07/18 05/07/18 History paroxetine HCl 40 mg PO DAILY 05/07/18 05/07/18 History temazepam 7.5 mg PO HS 05/07/18 05/07/18 History Results - Labs CBC & Chem 7: 07/14/18 07:49 Labs: Laboratory Results - last 24 hr 07/14/18 07/14/18 07/14/18 07:49 07:49 17:18 Sodium 135 L Potassium 5.3 H Chloride 96 L Carbon Dioxide 28.7 Anion Gap 10 BUN 70 H Creatinine 8.58 H Estimated GFR 8 L Random Glucose 112 H Hemoglobin A1c 5.7 Calcium 6.6 L* Calcium Adj for Albumin 7.6 L Albumin 2.8 L Triglycerides 92 Cholesterol 154 LDL Cholesterol, Calc 90 HDL Cholesterol 45.9 Cholesterol/HDL Ratio 3.35 Hepatitis A IgM Ab Nonreactive Hep Bs Antigen Nonreactive Hep B Core IgM Ab Nonreactive Hep C IgG Ab Reactive H Exam Vital signs: Vital Signs 07/14/18 06:00 07/14/18 20:00 Temperature 98 F Pulse Rate 104 H Respiratory Rate 17 Blood Pressure 104/63 Pulse Oximetry 94 L 98 Intake & Output 07/14/18 07/14/18 07/15/18 06:59 18:59 06:59 Intake Total 1440 / 1440 Output Total 3000 / 3000 Balance -1560 / -1560 Weight 56.3 kg Intake: Oral 1440 / 1440 Output: Hemodialysis Amount 3000 / 3000 Other: Weight On Admission 56.3 kg Mental Status Examination Appearance: Appropriate Consciousness: Alert Orientation: Person Motor Activity: Other (lying in hospital bed) Speech: Hesitant, Other (soft) Language: Adequate Attention and Concentration: Easily distracted Mood: Other (suspicious) Affect: Flat Thought Process & Associations: Linear Thought Content: Bizarre thinking Hallucination Type: None Delusion Type: Paranoid Suicidal Ideation: No Suicidal Plan: No Suicidal Intention: No Homicidal Ideation: No Homicidal Plan: No Homicidal Intention: No Insight: Poor Judgment: Poor Assessment and Plan - Assessment (1) Unspecified psychosis Code(s): F29 - Unspecified psychosis not due to a substance or known physiological condition Status: Acute - Plan Plan: Estimated LOS: [] days Continue seroquel 25mg po BID and haldol 5mg as needed for psychosis. Will start petition for involuntary hospitalization and request 2nd opinion and HCS and [place] Justification for Continued Inpatient Stay: psychosis. complicating medical conditions.
[2018-07-15] MEDS: Azithromycin 250 MG Tablet PO SCH (08:20)
[2018-07-15] MEDS: Senna/Docusate Sodium 8.6/50 MG Tablet PO SCH ×2 (08:20→21:20)
[2018-07-15] MEDS: Lisinopril 5 MG Tablet PO SCH (08:20)
[2018-07-15] MEDS: Tiotropium Bromide 18 MCG/ACT Inhaler INH SCH (08:20)
[2018-07-15] MEDS: Ferrous Sulfate 325 MG Tablet PO SCH ×3 (08:20→17:55)
--- NOTE | 2018-07-15 13:34 | P.PNPSY ---
Subjective Chief Complaint: admitted to [facility] due to aggression on medical floor Remarks: Patient seen for follow-up, chart reviewed, patient discussed with nursing staff ; we reviewed the patient's mood, thoughts, and behaviors from overnight and this morning. Nurse reports the patient was aggressive and hostile last evening and described as "sundowning". Nursing reports that the patient had a completely different attitude this morning and has been calm cooperative and pleasant throughout the day. Patient was seen at bedside after lunch where he was watching TV and sitting quietly. He is alert and oriented only to person. He does express an understanding that his would be the most appropriate proxy decision-maker for him. When asked if he was experiencing auditory or visual hallucinations the patient shrugged his shoulders and said he did not know. The patient did report "I stayed confused most the time." An attempt was made by the patient's director social welfare as well as this psychiatrist to contact his at the number listed in the chart which is [phone], but there is no answer at this number. Mental Status Examination Appearance: Appropriate Consciousness: Alert Orientation: Person Motor Activity: Other (lying in hospital bed) Speech: Hesitant, Other (soft) Language: Adequate Attention and Concentration: Easily distracted Memory: Impaired Mood: Anxious Affect: Blunt Thought Process & Associations: Linear, Other (Confused) Thought Content: Appropriate Hallucination Type: None Delusion Type: None Suicidal Ideation: No Suicidal Plan: No Suicidal Intention: No Homicidal Ideation: No Homicidal Plan: No Homicidal Intention: No Insight: Poor Judgment: Poor Assessment and Plan - Assessment (1) Acute hyperactive delirium due to another medical condition Code(s): F05 - Delirium due to known physiological condition Status: Acute - Plan Plan: July 15, 2018: Fair response to treatment, the patient's waxing and waning mental status and aggressive behavior has been well controlled through the support of the medical psychiatric unit staff and milieu. There is no indication from the medical record that the patient suffers from a primary psychotic disorder and there is substantial risk factors for delirium due to his end-stage renal disease therefore the most likely cause for his waxing and waning presentation and "sundowning behavior" is due to a hyperactive delirium caused by metabolic insults. The patient would benefit from restart of a low- dose antipsychotic as he was being treated on the medical unit. The patient apparently did not respond adequately to Seroquel 25 mg twice a day therefore it is recommended that Risperdal 0.25 mg twice a day be started with titration to effect. Patient would also likely benefit from an as needed treatment with a low-dose antipsychotic p.o. or IM but attempts to reach his for informed consent have failed thus far. Continue hospitalization due to delirium and need to further stabilize his behaviors before he is safe to return home or to a less restrictive level of care. Medical consultation to be provided by hospitalist team as well as nephrology. Start Risperdal 0.25 mg twice a day as medically indicated for hyperactive delirium. -Start melatonin 5 mg at bedtime as medically indicated for hyperactive delirium. Continue efforts to secure medical consents from his who should serve as proxy decision-maker while he is incapacitated by delirium. Anticipate transfer back to medicine for continued stabilization unless evidence of a primary psychiatric condition consistent with [place] act law becomes available through collateral information from family. Justification for Continued Inpatient Stay: Patient remains an elevated risk for self-harm by self neglect and will require further inpatient stabilization and preparation of a safe discharge plan. Moving patient to a less restrictive environment at this time may result in decompensation.
[2018-07-15 18:03] VITALS: RESP 16; TEMP 98.2
[2018-07-15] MEDS ORDERED: Melatonin 5 MG Tablet PO SCH (21:00)
[2018-07-16 05:34] VITALS: BP 113/65; PULSE 95; O2SAT 99
[2018-07-16] MEDS: Tiotropium Bromide 18 MCG/ACT Inhaler INH SCH (08:44)
[2018-07-16] MEDS: Ferrous Sulfate 325 MG Tablet PO SCH (08:48)
[2018-07-16] MEDS: Azithromycin 250 MG Tablet PO SCH (08:49)
[2018-07-16] MEDS: Lisinopril 5 MG Tablet PO SCH (08:49)
[2018-07-16] MEDS: Senna/Docusate Sodium 8.6/50 MG Tablet PO SCH (08:49)
--- NOTE | 2018-07-16 13:06 | P.DSPSY ---
Psychiatry Discharge Summary Inpatient Psychiatric care?: Yes Advance Directives: No Reason for Unknown:: Due to Patient Condition Mental Health Advance Directive: No Health Care Proxy: Yes - Admission Admission Date: July 13, 2018 20:21 - Admission Diagnosis (1) Unspecified psychosis Code(s): F29 - Unspecified psychosis not due to a substance or known physiological condition Brief History: Pt is a 62 YOAAM with a psychiatric hx of PTSD and past cocaine abuse and medical hx of ESRD, CHF and cirrhosis. He was transferred to med psych unit from medical floor after aggression and agitation became too difficult to manage. Pt became confused and psychotic after missing dialysis appointment and has continued to have intermittent bouts of aggression in confusion. Pt was seen in dialysis unit. He was polite but did not want to engage in interview with MD. He appears confused and somewhat paranoid towards MD. Dayshift nurses reported that pt had not been aggressive, but as evening progressed he became confused and agitated per evening nurses. Tobacco Use In Past 30 Days: Yes How Often Do You Have a Drink Containing Alcohol: Monthly or less Hospital Course: July 15, 2018: Fair response to treatment, the patient's waxing and waning mental status and aggressive behavior has been well controlled through the support of the medical psychiatric unit staff and milieu. There is no indication from the medical record that the patient suffers from a primary psychotic disorder and there is substantial risk factors for delirium due to his end-stage renal disease therefore the most likely cause for his waxing and waning presentation and "sundowning behavior" is due to a hyperactive delirium caused by metabolic insults. The patient would benefit from restart of a low- dose antipsychotic as he was being treated on the medical unit. The patient apparently did not respond adequately to Seroquel 25 mg twice a day therefore it is recommended that Risperdal 0.25 mg twice a day be started with titration to effect. Patient would also likely benefit from an as needed treatment with a low-dose antipsychotic p.o. or IM but attempts to reach his for informed consent have failed thus far. Continue hospitalization due to delirium and need to further stabilize his behaviors before he is safe to return home or to a less restrictive level of care. Medical consultation to be provided by hospitalist team as well as nephrology. Start Risperdal 0.25 mg twice a day as medically indicated for hyperactive delirium. -Start melatonin 5 mg at bedtime as medically indicated for hyperactive delirium. Continue efforts to secure medical consents from his who should serve as proxy decision-maker while he is incapacitated by delirium. Anticipate transfer back to medicine for continued stabilization unless evidence of a primary psychiatric condition consistent with [place] act law becomes available through collateral information from family. July 16, 2018: Good response to treatment as noted by nursing reports that the patient remained alert and oriented x3 during evening shift and into this morning shift. No evidence of sundowning overnight. Patient was seen and examined on the unit by psychiatry and also visited by counselor. Psychotropic medications remained well tolerated. There was a good response to inpatient treatment plan noted by nursing and provider observations, and the patient reported improvements in mood, anxiety, and there was no evidence of any hallucinations, delusions, suicidality or homicidality at time of discharge. Psychiatric follow-up as arranged by counselor. Patient is also to follow up with primary care [facility] and follow-up with dialysis as scheduled tomorrow morning. Discharge medications include prescriptions for Risperdal 0.25 mg 1 tablet by mouth twice a day for 1 week #14 refill 0, melatonin 5 mg at bedtime #30 refill 0 metoprolol ER 25 mg/day #7 refill 0. The patient's discharge summary from medicine dated 07/13/[address] Muniz was reviewed and medication reconciliation done based on his discharge summary medication reconciliation. The patient reportedly was medically cleared prior to transfer to the medical psychiatric unit and this was verified by telephone consultation with on-call hospitalist. - Discharge Discharge Date: 07/16/18 - Discharge Diagnosis (1) Acute hyperactive delirium due to another medical condition Code(s): F05 - Delirium due to known physiological condition Status: Acute Discharge Disposition: Home - Discharge Time > 30 minutes Mental Status Examination Appearance: Appropriate Consciousness: Alert Orientation: Person, Place, Situation Motor Activity: Normal gait Speech: Unremarkable Language: Adequate Fund of Knowledge: Adequate Attention and Concentration: Adequate Memory: Impaired Mood: Appropriate Affect: Appropriate Thought Process & Associations: Intact, Logical, Goal directed Thought Content: Appropriate Hallucination Type: None Delusion Type: None Suicidal Ideation: No Suicidal Plan: No Suicidal Intention: No Homicidal Ideation: No Homicidal Plan: No Homicidal Intention: No Insight: Fair Judgment: Impulsive Discharge/Advance Care Plan - Results Vital Signs: Last Vital Signs Temp 98.2 F 07/16/18 05:33 Pulse 95 H 07/16/18 05:33 Resp 16 07/16/18 05:33 BP 113/65 07/16/18 05:33 Pulse Ox 99 07/16/18 05:33 Lab Results: Laboratory Results Hemoglobin A1c 5.7 % (4.3-6.0) 07/14/18 07:49 Triglycerides 92 mg/dL (42-150) 07/14/18 07:49 Cholesterol 154 mg/dL (120-200) 07/14/18 07:49 LDL Cholesterol, Calc 90 mg/dL (0-99) 07/14/18 07:49 HDL Cholesterol 45.9 mg/dL (40.0-60.0) 07/14/18 07:49 Summary of Procedures: None ordered Pending Results: None - Medications Number of antipsychotic medications at discharge: 1 - Discharge Care Plan Goals to Promote Your Health: * To prevent worsening of your condition and complications * To maintain your health at the optimal level Directions to Meet Your Goals: Take your medications as prescribed Follow your dietary instruction Follow activity as directed Keep your appointments as scheduled Take your immunizations and boosters as scheduled If your symptoms worsen call your PCP, if no PCP go to Urgent Care Center or Emergency Room For 12/12 questions related to your inpatient stay or results of tests pending at discharge, please contact Dr. Scooby Tabor MD at Smoking is Dangerous to Your Health. Avoid second hand smoking
== END 2018-07-16 13:42 | disposition home or self-care (01) | DRG 880 ==
LOC: H4EA 20:21
PROVIDERS: ADMIT Psychiatry & Neurology Psychiatry; ATTEND Psychiatry & Neurology Psychiatry